=== PATIENT | female | born 1980 | race Caucasian/White ===

== ENCOUNTER 2022-03-17 15:32 | Emergency (ER) | payer OTHER ==
[2022-03-17 16:10] LABS: Urine Blood Trace-intact (Negative); Urine Glucose Negative (Negative); Urine Protein Negative (Negative); Urine pH 7.5 (5.0-7.0)
[2022-03-17 16:29] LABS: Urine Bacteria None Seen /HPF (<20); Urine Mucus Slight /HPF (None Seen); Urine RBC <5 /HPF (None Seen)
--- NOTE | 2022-03-17 16:46 | RAD REPORT ---
EXAM DESCRIPTION: RAD - Pelvis - 03/17/2022 4:41 pm CLINICAL HISTORY: fall COMPARISON: No comparisons FINDINGS: No fracture, dislocation or radiographic evidence of AVN. IMPRESSION: Negative study.
--- NOTE | 2022-03-17 17:43 | ER ---
Nurse's Notes [facility] Name: Sharyn Franco Age: 41 yrs Sex: Female : 1980 Arrival Date: 03/17/2022 Time: 15:37 Bed 4 Private MD: Diagnosis: Unspecified urinary incontinence;Unspecified hemorrhoids;Fall on same level, unspecified Presentation: 03/17 15:49 Chief complaint: Patient states: pt has an external hemorrhoid and prolapsed bladder, iw she fell last night and it jolted her and now she feels like it is hanging out more and she is incontinent. Coronavirus screen: At this time, the client does not indicate any symptoms associated with coronavirus-19. Ebola Screen: Patient negative for fever greater than or equal to 101.5 degrees Fahrenheit, and additional compatible Ebola Virus Disease symptoms Patient denies exposure to infectious person. Patient denies travel to an Ebola-affected area in the 21 days before illness onset. No symptoms or risks identified at this time. Onset of symptoms was March 17, 2022. 15:49 Method Of Arrival: Ambulatory iw 15:49 Acuity: LIS 3 iw 15:52 Initial Sepsis Screen: Does the patient meet any 2 criteria? No. Patient's initial iw sepsis screen is negative. Does the patient have a suspected source of infection? No. Patient's initial sepsis screen is negative. Risk Assessment: Do you want to hurt yourself or someone else? Patient reports no desire to harm self or others. - Immunization history:: Adult Immunizations unknown. - Social history:: Smoking status: unknown. Screenin:22 [facility] ED Fall Risk Assessment (Adult) History of falling in the last 3 months, kc6 including since admission No falls in past 3 months (0 pts) Confusion or Disorientation No (0 pts) Intoxicated or Sedated No (0 pts) Impaired Gait No (0 pts) Mobility Assist Device Used No (0 pt) Altered Elimination No (0 pt) Score/Fall Risk Level 0 - 2 = Low Risk. Abuse screen: Denies threats or abuse. Denies injuries from another. Nutritional screening: No deficits noted. Tuberculosis screening: No symptoms or risk factors identified. Assessment: 16:22 General: Appears in no apparent distress. comfortable, Behavior is calm, cooperative, kc6 appropriate for age, anxious. Pain: Denies pain. Neuro: Miller Agitation-Sedation Scale (RASS): 0 - Alert and Calm Level of Consciousness is awake, alert, obeys commands, Oriented to person, place, time, situation, Appropriate for age. Cardiovascular: Heart tones S1 S2 present Capillary refill < 3 seconds. Respiratory: Airway is patent Trachea midline Respiratory effort is even, unlabored, Respiratory pattern is regular, symmetrical, Breath sounds are clear bilaterally. GI: Abdomen is flat, non-distended, Stools are reported to be normal. Last BM was March 15, 2022. client reports history of hemorrhoids and rectal itching. Bowel sounds present X 4 quads. Abd is soft and non tender X 4 quads. Reports hemorrhoids, incontinence, Patient currently denies bloody stool, constipation, diarrhea, nausea, rectal bleeding, vomiting. : Urine is clear, Reports burning with urination, incontinence. EENT: No signs and/or symptoms were reported regarding the EENT system. Derm: No signs and/or symptoms reported regarding the dermatologic system. Skin is intact, Skin is pink, warm \T\ dry. Musculoskeletal: No signs and/or symptoms reported regarding the musculoskeletal system. Circulation, motion, and sensation intact. Capillary refill < 3 seconds, Range of motion: intact in all extremities. 17:18 Reassessment: Patient appears in no apparent distress at this time. No changes from kc6 previously documented assessment. Patient and/or family updated on plan of care and expected duration. Pain level reassessed. Patient is alert, oriented x 3, equal unlabored respirations, skin warm/dry/pink. Vital Signs: 15:52 BP 152 / 95; Pulse 87; Resp 16; Temp 98.8; Pulse Ox 100% on R/A; iw 17:18 BP 133 / 88; Pulse 79; Resp 18 S; Pulse Ox 100% on R/A; Pain 0/10; kc6 ED Course: 15:37 Patient arrived in ED. mr 15:37 Matias Sunshine DO is Attending Physician. ms3 15:39 Gustavo Mckenzie PA is PHCP. cp 15:47 Ira Pichardo, RAMÓN is Primary Nurse. kc6 15:51 Triage completed. iw 15:52 Arm band placed on. iw 16:10 Urine Microscopic Only Sent. kc6 16:26 Patient has correct armband on for positive identification. Placed in gown. Bed in low kc6 position. Call light in reach. Side rails up X2. 16:42 XRAY Pelvis In Process Unspecified. EDMS 17:40 Michael Connor MD is Referral Physician. cp 17:40 Referral Physician role handed off by Michael Connor MD cp 17:40 Caryl Duncan MD is Referral Physician. cp 17:41 Jacques Washington MD is Referral Physician. cp 17:57 No provider procedures requiring assistance completed. Patient did not have IV access kc6 during this emergency room visit. Administered Medications: No medications were administered Medication: 16:26 VIS not applicable for this client. kc6 Outcome: 17:43 Discharge ordered by MD. cp 17:57 Discharged to home ambulatory. kc6 17:57 Condition: stable 17:57 Discharge instructions given to patient, Instructed on discharge instructions, follow up and referral plans. Demonstrated understanding of instructions, follow-up care. 17:58 Patient left the ED. kc6 Signatures: Dispatcher [employer] EDRI Brandee Giron Irene, RN RN Gustavo Bernal, PA PA Matias Cannon, DO ms3 Ira Pichardo, RN RN kc6
--- NOTE | 2022-03-17 17:44 | EDPHYS ---
Physician Documentation [facility] Name: Sharyn Franco Age: 41 yrs Sex: Female : 1980 Arrival Date: 03/17/2022 Time: 15:37 Bed 4 Private MD: ED Physician Matias Sunshine HPI: 03/17 15:50 This 41 yrs old Female presents to ER via Ambulatory with complaints of Bloody Stools, cp Urinary Problem, Hemorrhoids. 15:50 The patient presents to the emergency department with bleeding from the rectum/anus, cp that is mild, history of hemorrhoids. Context: the patient has a known history of hemorrhoids, Patient reports she was referred to surgeon but encountered issues with visit when surgeon was delayed so she left appointment without being evaluated. 15:50 The patient presents with urinary symptoms, incontinence. Onset: The symptoms/episode cp began/occurred for the past year since of last child. Patient reports fall yesterday onto bottom that caused her to have episode of incontinence. Patient reports she concerned about treatment for urinary incontinence since she is about to lose insurance. - Immunization history:: Adult Immunizations unknown. - Social history:: Smoking status: unknown. ROS: 15:55 Constitutional: Negative for body aches, chills, fever, poor PO intake. cp 15:55 Eyes: Negative for injury, pain, redness, and discharge. cp 15:55 ENT: Negative for drainage from ear(s), ear pain, sore throat, difficulty swallowing, difficulty handling secretions. 15:55 Cardiovascular: Negative for chest pain, edema, palpitations. 15:55 Respiratory: Negative for cough, shortness of breath, wheezing. 15:55 Abdomen/GI: Positive for constipation, rectal bleeding, Negative for abdominal pain, nausea, vomiting, and diarrhea. 15:55 Back: Negative for pain at rest, pain with movement. 15:55 : Positive for bladder incontinence Negative for vaginal bleeding, vaginal discharge. 15:55 Neuro: Negative for altered mental status, dizziness, headache, numbness, syncope, weakness. 15:55 All other systems are negative. Exam: 16:00 Constitutional: The patient appears in no acute distress, alert, awake, non-toxic, well cp developed, well nourished, anxious. 16:00 Head/Face: Normocephalic, atraumatic. cp 16:00 Eyes: Periorbital structures: appear normal, Conjunctiva: normal, no exudate, no injection, Sclera: no appreciated abnormality, Lids and lashes: appear normal, bilaterally. 16:00 ENT: External ear(s): are unremarkable, Nose: is normal, Mouth: Lips: moist, Oral mucosa: moist, Posterior pharynx: Airway: no evidence of obstruction, patent. 16:00 Chest/axilla: Inspection: normal. 16:00 Cardiovascular: Rate: normal. 16:00 Respiratory: the patient does not display signs of respiratory distress, Respirations: normal, no use of accessory muscles, no retractions, labored breathing, is not present. 16:00 Abdomen/GI: Inspection: abdomen appears normal, Palpation: abdomen is soft and non-tender, in all quadrants. 16:00 : Rectal exam: Stool: brown, with no observable blood, hemorrhoid(s), external, no active bleeding are not thrombosed, swollen, and/or painful to touch. located at 12 and 6 o'clock position of rectum, fissure, is not appreciated, the nurse was present for the exam. 16:00 Neuro: Orientation: to person, place \T\ time. Mentation: able to follow commands, Motor: moves all fours, strength is normal. 16:00 Psych: Behavior/mood is cooperative, Affect is animated, Delusions/hallucinations are not present. Vital Signs: 15:52 BP 152 / 95; Pulse 87; Resp 16; Temp 98.8; Pulse Ox 100% on R/A; iw 17:18 BP 133 / 88; Pulse 79; Resp 18 S; Pulse Ox 100% on R/A; Pain 0/10; kc6 MDM: 17:43 Patient medically screened. cp 17:43 Data reviewed: vital signs, nurses notes, lab test result(s), urinalysis, radiologic cp studies, plain films. 17:43 Differential diagnosis: hemorrhoids, fissure, abscess, urinary tract infection. Test cp interpretation: by ED physician or midlevel provider: plain radiologic studies. Counseling: I had a detailed discussion with the patient and/or guardian regarding: the historical points, exam findings, and any diagnostic results supporting the discharge/admit diagnosis, lab results, radiology results, the need for outpatient follow up, a general surgeon, an OB/Gyne specialist, to return to the emergency department if symptoms worsen or persist or if there are any questions or concerns that arise at home. ED course: VSS. Patient stable for discharge. Discussed issues are chronic and that patient needs appropriate f/u. 03/17 15:44 Order name: Urine Microscopic Only; Complete Time: 16:54 03/17 16:56 Interpretation: Reviewed. 03/17 16:10 Order name: Urine --Ancillary (enter results) bd 03/17 15:44 Order name: Urine Dipstick-Ancillary (obtain specimen); Complete Time: 16:10 03/17 15:44 Order name: Urine Test (obtain specimen); Complete Time: 16:10 03/17 16:03 Order name: XRAY Pelvis; Complete Time: 16:54 03/17 16:55 Interpretation: Report reviewed. 03/17 16:10 Order name: Urine Dipstick-Ancillary; Complete Time: 16:54 EDMS 03/17 16:56 Interpretation: Normal except: UBLD Trace-intact; UPH 7.5. 03/17 16:03 Order name: Bladder Scanner: post void; Complete Time: 16:10 cp Administered Medications: No medications were administered Disposition Summary: 03/17/22 17:43 Discharge Ordered Location: Home cp Problem: an ongoing problem cp Symptoms: are unchanged cp Condition: Stable cp Diagnosis - Unspecified urinary incontinence cp - Unspecified hemorrhoids cp - Fall on same level, unspecified cp Followup: cp - With: Michael Connor MD - When: 2 - 3 days - Reason: urinary incontinence Followup: cp - With: Caryl Duncan MD - When: 2 - 3 days - Reason: urinary incontinence Followup: cp - With: Jacques Washington MD - When: 2 - 3 days - Reason: external hemorrhoids Discharge Instructions: - Discharge Summary Sheet cp - Hemorrhoids cp - Fall Prevention in the Home, Adult cp - Urinary Incontinence cp - Surgical Procedures for Hemorrhoids cp - Urethral Vaginal Sling cp Forms: - Medication Reconciliation Form cp - Thank You Letter cp - Antibiotic Education cp - Prescription Opioid Use cp Signatures: Dispatcher [employer] EDMS Gustavo Mckenzie PA PA cp Ira Pichardo RN RN kc6
[2022-03-17 18:06] VITALS: TEMP 98.8; O2SAT 100
[2022-03-17 18:08] VITALS: BP 133/88
== END 2022-03-17 17:58 | disposition home or self-care (01) ==
LOC: ER 15:32
DX: K64.9 Unspecified hemorrhoids (principal); R32 Unspecified urinary incontinence; W18.30XA Fall on same level, unspecified, initial encounter
CPT/HCPCS: 72170; 81003; 81015; 81025; 99283

== ENCOUNTER 2022-08-08 15:03 | Emergency (ER) | payer OTHER ==
--- NOTE | 2022-08-08 15:50 | RAD REPORT ---
EXAM DESCRIPTION: CT - Head Brain Wo Cont - 08/08/2022 3:31 pm CLINICAL HISTORY: Syncope;Trauma COMPARISON: <Comparisons> TECHNIQUE: All CT scans are performed using dose optimization technique as appropriate and may inclu de automated exposure control or mA/KV adjustment according to patient size. FINDINGS: No intracranial hemorrhage, hydrocephalus or extra-axial fluid collection.No areas of brai n edema or evidence of midline shift. The paranasal sinuses and mastoids are clear. The calvarium is intact. IMPRESSION: No acute intracranial abnormality.
--- NOTE | 2022-08-08 15:51 | RAD REPORT ---
EXAM DESCRIPTION: CT - CTFB CLINICAL HISTORY: FACIAL PAIN COMPARISON: Facial Bones W/ Mpr dated 08/08/2022No comparisons TECHNIQUE: Axial 2 mm thick images of the face were obtained with sagittal and coronal reconstructio n images. All CT scans are performed using dose optimization technique as appropriate and may include automated exposure control or mA/KV adjustment according to patient size. FINDINGS: No acute facial bone fracture is seen.The mandible is intact. The globes and orbital contents are grossly unremarkable.Circumferential thickening in the left maxil autumn sinus. IMPRESSION: Negative for facial bone fracture.
[2022-08-08] MEDS ORDERED: HYDROCODONE/APAP 7.5/325 MG TAB ONE (16:05)
--- OUTSIDE RECORDS SUMMARY | 2022-08-08 16:27 | XMS REPORT | Continuity of Care Document ---
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 Medical morning Branch and 2 tablets at noon and 2 tablets in the evening. clonazePAM 2023-0 Yes [id number] 1mg Take 2 [facility] (KLONOPIN) 2-27 tablets by [facility] of 0.5 mg 00:00: mouth in [place] tablet 00 the Medical morning Branch and 2 tablets at noon and 2 tablets in the evening. clonazePAM 2023-0 Yes [id number] 1mg Take 2 [facility] (KLONOPIN) 2-27 tablets by [facility] of 0.5 mg 00:00: mouth in [place] tablet 00 the Medical morning Branch and 2 tablets at noon and 2 tablets in the evening. clonazePAM 2023-0 Yes [id number] 1mg Take 2 [facility] (KLONOPIN) 2-27 tablets by [facility] of 0.5 mg 00:00: mouth in [place] tablet 00 the Medical morning Branch and 2 tablets at noon and 2 tablets in the evening. clonazePAM 2023-0 Yes [id number] 1mg Take 2 [facility] (KLONOPIN) 2-27 tablets by [facility] of 0.5 mg 00:00: mouth in [place] tablet 00 the Medical morning Branch and 2 tablets at noon and 2 tablets in the evening. clonazePAM 2023-0 Yes [id number] 1mg Take 2 [facility] (KLONOPIN) 2-27 tablets by [facility]y of 0.5 mg 00:00: mouth in [place] tablet 00 the Medical morning Branch and 2 tablets at noon and 2 tablets in the evening. clonazePAM 2023-0 Yes [id number] 1mg Take 2 [facility] (KLONOPIN) 2-27 tablets by [facility] of 0.5 mg 00:00: mouth in [place] tablet 00 the Medical morning Branch and 2 tablets at noon and 2 tablets in the evening. clonazePAM 2023-0 Yes [id number] 1mg Take 2 [facility] (KLONOPIN) 2-27 tablets by [facility] of 0.5 mg 00:00: mouth in [place] tablet 00 the Medical morning Branch and 2 tablets at noon and 2 tablets in the evening. clonazePAM 2023-0 Yes [id number] 1mg Take 2 [facility] (KLONOPIN) 2-27 tablets by [facility] of 0.5 mg 00:00: mouth in [place] tablet 00 the Medical morning Branch and 2 tablets at noon and 2 tablets in the evening. clonazePAM 2023-0 Yes [id number] 1mg Take 2 [facility] (KLONOPIN) 2-27 tablets by [facility] of 0.5 mg 00:00: mouth in [place] tablet 00 the Medical morning Branch and 2 tablets at noon and 2 tablets in the evening. clonazePAM 2023-0 Yes [id number] 1mg Take 2 [facility] (KLONOPIN) 2-27 tablets by [facility] of 0.5 mg 00:00: mouth in [place] tablet 00 the Medical morning Branch and 2 tablets at noon and 2 tablets in the evening. clonazePAM 2023-0 Yes [id number] 1mg Take 2 [facility] (KLONOPIN) 2-27 tablets by [facility] of 0.5 mg 00:00: mouth in [place] tablet 00 the Medical morning Branch and 2 tablets at noon and 2 tablets in the evening. clonazePAM 2023-0 Yes [id number] 1mg Take 2 [facility] (KLONOPIN) 2-27 tablets by [facility] of 0.5 mg 00:00: mouth in [place] tablet 00 the Medical morning Branch and 2 tablets at noon and 2 tablets in the evening. clonazePAM 2023-0 Yes [id number] 1mg Take 2 [facility] (KLONOPIN) 2-27 tablets by [facility] of 0.5 mg 00:00: mouth in [place] tablet 00 the Medical morning Branch and 2 tablets at noon and 2 tablets in the evening. clonazePAM 2023-0 Yes [id number] 1mg Take 2 [facility] (KLONOPIN) 2-27 tablets by [facility] of 0.5 mg 00:00: mouth in [place] tablet 00 the Medical morning Branch and 2 tablets at noon and 2 tablets in the evening. clonazePAM 2023-0 Yes [id number] 1mg Take 2 [facility] (KLONOPIN) 2-27 tablets by [facility] of 0.5 mg 00:00: mouth in [place] tablet 00 the Medical morning Branch and 2 tablets at noon and 2 tablets in the evening. clonazePAM 2023-0 Yes [id number] 1mg Take 2 [facility] (KLONOPIN) 2-27 tablets by [facility] of 0.5 mg 00:00: mouth in [place] tablet 00 the Medical morning Branch and 2 tablets at noon and 2 tablets in the evening. clonazePAM 2023-0 Yes [id number] 1mg Take 2 [facility] (KLONOPIN) 2-27 tablets by [facility] of 0.5 mg 00:00: mouth in [place] tablet 00 the Medical morning Branch and 2 tablets at noon and 2 tablets in the evening. clonazePAM 2023-0 Yes [id number] 1mg Take 2 [facility] (KLONOPIN) 2-27 tablets by [facility] of 0.5 mg 00:00: mouth in [place] tablet 00 the Medical morning Branch and 2 tablets at noon and 2 tablets in the evening. clonazePAM 2023-0 Yes [id number] 1mg Take 2 [facility] (KLONOPIN) 2-27 tablets by [facility] of 0.5 mg 00:00: mouth in [place] tablet 00 the Medical morning Branch and 2 tablets at noon and 2 tablets in the evening. clonazePAM 2023-0 Yes [id number] 1mg Take 2 [facility] (KLONOPIN) 2-27 tablets by it[facility] of 0.5 mg 00:00: mouth in [place] tablet 00 the Medical morning Branch and 2 tablets at noon and 2 tablets in the evening. clonazePAM 2023-0 Yes [id number] 1mg Take 1 [facility] 1 mg tablet 2-27 tablet by ity of 00:00: mouth in [place] 00 the Medical morning Branch and 1 tablet at noon and 1 tablet in the evening. dextroamphe 2023-0 Yes [id number] 12.5mg Take 1 [facility] tamine-amph 2-27 tablet by ity of etamine 00:00: mouth in [place] ([facility]) 00 the Medical 12.5 mg morning Branch tablet and 1 tablet at noon and 1 tablet in the evening. clonazePAM 2023-0 Yes [id number] 1mg Take 1 [facility] 1 mg tablet 2-27 tablet by ity of 00:00: mouth in [place] 00 the Medical morning Branch and 1 tablet at noon and 1 tablet in the evening. dextroamphe 2023-0 Yes [id number] 12.5mg Take 1 [facility] tamine-amph 2-27 tablet by ity of etamine 00:00: mouth in [place] ([facility]) 00 the Medical 12.5 mg morning Branch tablet and 1 tablet at noon and 1 tablet in the evening. dextroamphe 2023-0 Yes [id number] 12.5mg Take 1 [facility] tamine-amph 2-27 tablet by ity of etamine 00:00: mouth in [place] ([facility]) 00 the Medical 12.5 mg morning Branch tablet and 1 tablet at noon and 1 tablet in the evening. clonazePAM 2023-0 Yes [id number] 1mg Take 2 [facility] (KLONOPIN) 2-27 tablets by [facility] of 0.5 mg 00:00: mouth in [place] tablet 00 the Medical morning Branch and 2 tablets at noon and 2 tablets in the evening. dextroamphe 2023-0 Yes [id number] 12.5mg Take 1 [facility] tamine-amph 2-27 tablet by ity of etamine 00:00: mouth in [place] ([facility]) 00 the Medical 12.5 mg morning Branch tablet and 1 tablet at noon and 1 tablet in the evening. clonazePAM 2023-0 Yes [id number] 1mg Take 2 [facility] (KLONOPIN) 2-27 tablets by ity of 0.5 mg 00:00: mouth in [place] tablet 00 the Medical morning Branch and 2 tablets at noon and 2 tablets in the evening. dextroamphe 2023-0 Yes [id number] 12.5mg Take 1 [facility] tamine-amph 2-27 tablet by ity of etamine 00:00: mouth in [place] ([facility]) 00 the Medical 12.5 mg morning Branch tablet and 1 tablet at noon and 1 tablet in the evening. clonazePAM 2023-0 Yes [id number] 1mg Take 2 [facility] (KLONOPIN) 2-27 tablets by it[facility] of 0.5 mg 00:00: mouth in [place] tablet 00 the Medical morning Branch and 2 tablets at noon and 2 tablets in the evening. clonazePAM 2023-0 2023- No [id number] 1mg Take 2 [facility] (KLONOPIN) 2-27 05-09 tablets by it y of 0.5 mg 00:00: 00:00 mouth in [place] tablet 00 :00 the Medical morning Branch and 2 tablets at noon and 2 tablets in the evening. clonazePAM 2023-0 2023- No [id number] 1mg Take 2 [facility] (KLONOPIN) 2-27 05-09 tablets by it y of 0.5 mg 00:00: 00:00 mouth in [place] tablet 00 :00 the Medical morning Branch and 2 tablets at noon and 2 tablets in the evening. dextroamphe 2022-0 2022- No [id number] 12.5mg Take 1 [facility] tamine-amph 2-27 03-09 tablet by it y of etamine 00:00: 00:00 mouth in [place] ([facility]) 00 :00 the Medical 12.5 mg morning Branch tablet and 1 tablet at noon and 1 tablet in the evening. clonazePAM 2022-0 2022- No [id number] 1mg Take 1 [facility] 1 mg tablet 2-25 05- tablet by it y of 00:00: 00:00 mouth in [place] 00 :00 the Medical morning Branch and 1 tablet at noon and 1 tablet in the evening. dextroamphe 3-0 Yes [id number] 12.5mg Take 1 [facility] tamine-amph 2-01 tablet by ity of etamine 00:00: mouth in [place] [facility] the Medical 12.5 mg morning Branch tablet and 1 tablet at noon and 1 tablet in the evening. dextroamphe 2022-0 Yes [id number] 12.5mg Take 1 [facility] tamine-amph 2-01 tablet by ity of etamine 00:00: mouth in [place] [facility] 00 the Medical 12.5 mg morning Branch tablet and 1 tablet at noon and 1 tablet in the evening. dextroamphe 3-0 Yes [id number] 12.5mg Take 1 [facility] tamine-amph 2-01 tablet by ity of etamine 00:00: mouth in [place] [facility] 00 the Medical 12.5 mg morning Branch tablet and 1 tablet at noon and 1 tablet in the evening. dextroamphe 3-0 Yes [id number] 12.5mg Take 1 [facility] tamine-amph 2-01 tablet by ity of etamine 00:00: mouth in [place] ([facility]) 00 the Medical 12.5 mg morning Branch tablet and 1 tablet at noon and 1 tablet in the evening. dextroamphe 2022-0 2022- No [id number] 12.5mg Take 1 [facility] tamine-amph 2-01 - tablet by it y of etamine 00:00: 00:00 mouth in [place] ([facility] 00 :00 the Medical 12.5 mg morning Branch tablet and 1 tablet at noon and 1 tablet in the evening. dextroamphe 2023-0 3- No [id number] 12.5mg Take 1 [facility] tamine-amph 2-05-25 tablet by it y of etamine 00:00: 00:00 mouth in [place] ([facility] 00 :00 the Medical 12.5 mg morning Branch tablet and 1 tablet at noon and 1 tablet in the evening. dextroamphe 2023-0 3- No [id number] 12.5mg Take 1 [facility] tamine-amph 2-05-25 tablet by it y of etamine 00:00: 00:00 mouth in [place] ([facility]) 00 :00 the Medical 12.5 mg morning Branch tablet and 1 tablet at noon and 1 tablet in the evening. dextroamphe 2023-0 Yes [id number] 12.5mg Take 1 [facility] tamine-amph 1-10 tablet by ity of etamine 00:00: mouth in [place] ([facility]) 00 the Medical 12.5 mg morning Branch tablet and 1 tablet at noon and 1 tablet in the evening. dextroamphe 2023-0 Yes [id number] 12.5mg Take 1 [facility] tamine-amph 1-10 tablet by ity of etamine 00:00: mouth in [place] ([facility] 00 the Medical 12.5 mg morning Branch tablet and 1 tablet at noon and 1 tablet in the evening. dextroamphe 2023-0 Yes [id number] 12.5mg Take 1 [facility] tamine-amph 1-10 tablet by ity of etamine 00:00: mouth in [place] ([facility] 00 the Medical 12.5 mg morning Branch tablet and 1 tablet at noon and 1 tablet in the evening. dextroamphe 2023-0 Yes [id number] 12.5mg Take 1 [facility] tamine-amph 1-10 tablet by ity of etamine 00:00: mouth in [place] ([facility] 00 the Medical 12.5 mg morning Branch tablet and 1 tablet at noon and 1 tablet in the evening. dextroamphe 2023-0 Yes [id number] 12.5mg Take 1 [facility] tamine-amph 1-10 tablet by ity of etamine 00:00: mouth in [place] ([facility] 00 the Medical 12.5 mg morning Branch tablet and 1 tablet at noon and 1 tablet in the evening. dextroamphe 2023-0 Yes [id number] 12.5mg Take 1 [facility] tamine-amph 1-10 tablet by ity of etamine 00:00: mouth in [place] ([facility] 00 the Medical 12.5 mg morning Branch tablet and 1 tablet at noon and 1 tablet in the evening. dextroamphe 2023-0 Yes [id number] 12.5mg Take 1 [facility] tamine-amph 1-10 tablet by ity of etamine 00:00: mouth in [place] ([facility] 00 the Medical 12.5 mg morning Branch tablet and 1 tablet at noon and 1 tablet in the evening. dextroamphe 2023-0 3- No [id number] 12.5mg Take 1 [facility] tamine-amph 1-10 02- tablet by it y of etamine 00:00: 00:00 mouth in [place] ([facility] 00 :00 the Medical 12.5 mg morning Branch tablet and 1 tablet at noon and 1 tablet in the evening. dextroamphe 2023-0 3- No [id number] 12.5mg Take 1 [facility] tamine-amph 1-10 - tablet by it y of etamine 00:00: 00:00 mouth in [place] ([facility] 00 :00 the Medical 12.5 mg morning Branch tablet and 1 tablet at noon and 1 tablet in the evening. dextroamphe 2023-0 Yes [id number] 15mg Take 1 [facility] tamine-amph 1-09 tablet by ity of etamine 00:00: mouth in [place] ([facility] 00 the Medical 15 mg morning Branch tablet and 1 tablet at noon and 1 tablet in the evening. dextroamphe 2023-0 Yes [id number] 15mg Take 1 [facility] tamine-amph 1-09 tablet by ity of etamine 00:00: mouth in [place] ([facility] 00 the Medical 15 mg morning Branch tablet and 1 tablet at noon and 1 tablet in the evening. dextroamphe 2023-0 3- No [id number] 15mg Take 1 [facility] tamine-amph 1-09 01-10 tablet by it y of etamine 00:00: 00:00 mouth in [place] ([facility] 00 :00 the Medical 15 mg morning Branch tablet and 1 tablet at noon and 1 tablet in the evening. SYNTHROID 0 Yes [id number] TAKE 1 U nivers 150 mcg 1-02 TABLET BY ity of tablet 00:00: MOUTH [place] 00 EVERY DAY Medical IN THE [facility] SYNTHROID 0 Yes [id number] TAKE 1 U nivers 150 mcg 1-02 TABLET BY ity of tablet 00:00: MOUTH [place] 00 EVERY DAY Medical IN THE [facility] SYNTHROID Yes [id number] TAKE 1 U nivers 150 mcg 1-02 TABLET BY ity of tablet 00:00: MOUTH [place] 00 EVERY DAY Medical IN THE [facility] SYNTHROID Yes [id number] TAKE 1 U nivers 150 mcg 1-02 TABLET BY ity of tablet 00:00: MOUTH [place] 00 EVERY DAY Medical IN THE [facility] SYNTHROID Yes [id number] TAKE 1 U nivers 150 mcg 1-02 TABLET BY ity of tablet 00:00: MOUTH [place] 00 EVERY DAY Medical IN THE [facility] SYNTHROID Yes [id number] TAKE 1 U nivers 150 mcg 1-02 TABLET BY ity of tablet 00:00: MOUTH [place] 00 EVERY DAY Medical IN THE [facility] SYNTHROID Yes [id number] TAKE 1 U nivers 150 mcg 1-02 TABLET BY ity of tablet 00:00: MOUTH [place] 00 EVERY DAY Medical IN THE [facility] SYNTHROID Yes [id number] TAKE 1 U nivers 150 mcg 1-02 TABLET BY ity of tablet 00:00: MOUTH [place] 00 EVERY DAY Medical IN THE [facility] SYNTHROID Yes [id number] TAKE 1 U nivers 150 mcg 1-02 TABLET BY ity of tablet 00:00: MOUTH [place] 00 EVERY DAY Medical IN THE [facility] SYNTHROID 0 Yes [id number] TAKE 1 U nivers 150 mcg 1-02 TABLET BY ity of tablet 00:00: MOUTH [place] 00 EVERY DAY Medical IN THE [facility] SYNTHROID 0 Yes [id number] TAKE 1 U nivers 150 mcg 1-02 TABLET BY ity of tablet 00:00: MOUTH [place] 00 EVERY DAY Medical IN THE [facility] SYNTHROID Yes [id number] TAKE 1 U nivers 150 mcg 1-02 TABLET BY ity of tablet 00:00: MOUTH [place] 00 EVERY DAY Medical IN THE [facility] SYNTHROID Yes [id number] TAKE 1 U nivers 150 mcg 1-02 TABLET BY ity of tablet 00:00: MOUTH [place] 00 EVERY DAY Medical IN THE [facility] SYNTHROID Yes [id number] TAKE 1 U nivers 150 mcg 1-02 TABLET BY ity of tablet 00:00: MOUTH [place] 00 EVERY DAY Medical IN THE [facility] SYNTHROID Yes [id number] TAKE 1 U nivers 150 mcg 1-02 TABLET BY ity of tablet 00:00: MOUTH [place] 00 EVERY DAY Medical IN THE [facility] SYNTHROID Yes [id number] TAKE 1 U nivers 150 mcg 1-02 TABLET BY ity of tablet 00:00: MOUTH [place] 00 EVERY DAY Medical IN THE [facility] SYNTHROID Yes [id number] TAKE 1 U nivers 150 mcg 1-02 TABLET BY ity of tablet 00:00: MOUTH [place] 00 EVERY DAY Medical IN THE [facility] SYNTHROID Yes [id number] TAKE 1 U nivers 150 mcg 1-02 TABLET BY ity of tablet 00:00: MOUTH [place] 00 EVERY DAY Medical IN THE [facility] SYNTHROID Yes [id number] TAKE 1 U nivers 150 mcg 1-02 TABLET BY ity of tablet 00:00: MOUTH [place] 00 EVERY DAY Medical IN THE [facility] SYNTHROID Yes [id number] TAKE 1 U nivers 150 mcg 1-02 TABLET BY ity of tablet 00:00: MOUTH [place] 00 EVERY DAY Medical IN THE [facility] SYNTHROID Yes [id number] TAKE 1 U nivers 150 mcg 1-02 TABLET BY ity of tablet 00:00: MOUTH [place] 00 EVERY DAY Medical IN THE [facility] SYNTHROID 0 Yes [id number] TAKE 1 U nivers 150 mcg 1-02 TABLET BY ity of tablet 00:00: MOUTH [place] 00 EVERY DAY Medical IN THE [facility] SYNTHROID Yes [id number] TAKE 1 U nivers 150 mcg 1-02 TABLET BY ity of tablet 00:00: MOUTH [place] 00 EVERY DAY Medical IN THE [facility] SYNTHROID Yes [id number] TAKE 1 U nivers 150 mcg 1-02 TABLET BY ity of tablet 00:00: MOUTH [place] 00 EVERY DAY Medical IN THE [facility] SYNTHROID 2023-0 Yes [id number] TAKE 1 U nivers 150 mcg 1-02 TABLET BY ity of tablet 00:00: MOUTH [place] 00 EVERY DAY Medical IN THE [facility] SYNTHROID 0 Yes [id number] TAKE 1 U nivers 150 mcg 1-02 TABLET BY ity of tablet 00:00: MOUTH [place] 00 EVERY DAY Medical IN THE [facility] SYNTHROID 0 Yes [id number] TAKE 1 U nivers 150 mcg 1-02 TABLET BY ity of tablet 00:00: MOUTH [place] 00 EVERY DAY Medical IN THE [facility] SYNTHROID Yes [id number] TAKE 1 U nivers 150 mcg 1-02 TABLET BY ity of tablet 00:00: MOUTH [place] 00 EVERY DAY Medical IN THE [facility] SYNTHROID Yes [id number] TAKE 1 U nivers 150 mcg 1-02 TABLET BY ity of tablet 00:00: MOUTH [place] 00 EVERY DAY Medical IN THE [facility] SYNTHROID Yes [id number] TAKE 1 U nivers 150 mcg 1-02 TABLET BY ity of tablet 00:00: MOUTH [place] 00 EVERY DAY Medical IN THE [facility] SYNTHROID Yes [id number] TAKE 1 U nivers 150 mcg 1-02 TABLET BY ity of tablet 00:00: MOUTH [place] 00 EVERY DAY Medical IN THE [facility] SYNTHROID Yes [id number] TAKE 1 U nivers 150 mcg 1-02 TABLET BY ity of tablet 00:00: MOUTH [place] 00 EVERY DAY Medical IN THE [facility] SYNTHROID 0 Yes [id number] TAKE 1 U nivers 150 mcg 1-02 TABLET BY ity of tablet 00:00: MOUTH [place] 00 EVERY DAY Medical IN THE [facility] SYNTHROID 0 Yes [id number] TAKE 1 U nivers 150 mcg 1-02 TABLET BY ity of tablet 00:00: MOUTH [place] 00 EVERY DAY Medical IN THE [facility] SYNTHROID Yes [id number] TAKE 1 U nivers 150 mcg 1-02 TABLET BY ity of tablet 00:00: MOUTH [place] 00 EVERY DAY Medical IN THE [facility] SYNTHROID Yes [id number] TAKE 1 U nivers 150 mcg 1-02 TABLET BY ity of tablet 00:00: MOUTH [place] 00 EVERY DAY Medical IN THE [facility] SYNTHROID Yes [id number] TAKE 1 U nivers 150 mcg 1-02 TABLET BY ity of tablet 00:00: MOUTH [place] 00 EVERY DAY Medical IN THE [facility] SYNTHROID 0 Yes [id number] TAKE 1 U nivers 150 mcg 1-02 TABLET BY ity of tablet 00:00: MOUTH [place] 00 EVERY DAY Medical IN THE [facility] SYNTHROID 0 Yes [id number] TAKE 1 U nivers 150 mcg 1-02 TABLET BY ity of tablet 00:00: MOUTH [place] 00 EVERY DAY Medical IN THE [facility] SYNTHROID Yes [id number] TAKE 1 U nivers 150 mcg 1-02 TABLET BY ity of tablet 00:00: MOUTH [place] 00 EVERY DAY Medical IN THE [facility] SYNTHROID Yes [id number] TAKE 1 U nivers 150 mcg 1-02 TABLET BY ity of tablet 00:00: MOUTH [place] 00 EVERY DAY Medical IN THE [facility] SYNTHROID Yes [id number] TAKE 1 U nivers 150 mcg 1-02 TABLET BY ity of tablet 00:00: MOUTH [place] 00 EVERY DAY Medical IN THE [facility] SYNTHROID Yes [id number] TAKE 1 U nivers 150 mcg 1-02 TABLET BY ity of tablet 00:00: MOUTH [place] 00 EVERY DAY Medical IN THE [facility] SYNTHROID Yes [id number] TAKE 1 U nivers 150 mcg 1-02 TABLET BY ity of tablet 00:00: MOUTH [place] 00 EVERY DAY Medical IN THE [facility] SYNTHROID 0 Yes [id number] TAKE 1 U nivers 150 mcg 1-02 TABLET BY ity of tablet 00:00: MOUTH [place] 00 EVERY DAY Medical IN THE [facility] SYNTHROID 0 Yes [id number] TAKE 1 U nivers 150 mcg 1-02 TABLET BY ity of tablet 00:00: MOUTH [place] 00 EVERY DAY Medical IN THE [facility] SYNTHROID 0 Yes [id number] TAKE 1 U nivers 150 mcg 1-02 TABLET BY ity of tablet 00:00: MOUTH [place] 00 EVERY DAY Medical IN THE [facility] SYNTHROID 0 Yes [id number] TAKE 1 U nivers 150 mcg 1-02 TABLET BY ity of tablet 00:00: MOUTH [place] 00 EVERY DAY Medical IN THE [facility] SYNTHROID 0 Yes [id number] TAKE 1 U nivers 150 mcg 1-02 TABLET BY ity of tablet 00:00: MOUTH [place] 00 EVERY DAY Medical IN THE Branch MORNING SYNTHROID Yes [id number] TAKE 1 U nivers 150 mcg 1-02 TABLET BY ity of tablet 00:00: MOUTH 00 EVERY DAY Medical IN THE Branch MORNING SYNTHROID Yes [id number] TAKE 1 U nivers 150 mcg 1-02 TABLET BY ity of tablet 00:00: MOUTH 00 EVERY DAY Medical IN THE Branch MORNING ZONISAMIDE 2021-03 Yes [id number] TAKE 1 [facility] 100 mg 2-27 CAPSULE BY ity of capsule 00:00: MOUTH [place] 00 TWICE A Medical DAY Branch ZONISAMIDE 2021-03 Yes [id number] TAKE 1 [facility] 100 mg 2-27 CAPSULE BY ity of capsule 00:00: MOUTH [place] TWICE A Medical DAY Branch ZONISAMIDE 2021-03 Yes [id number] TAKE 1 [facility] 100 mg 2-27 CAPSULE BY ity of capsule 00:00: MOUTH [place] TWICE A Medical DAY Branch ZONISAMIDE 2021-03 Yes [id number] TAKE 1 [facility] 100 mg 2-27 CAPSULE BY ity of capsule 00:00: MOUTH [place] 00 TWICE A Medical DAY Branch ZONISAMIDE 2021-03 Yes [id number] TAKE 1 [facility] 100 mg 2-27 CAPSULE BY ity of capsule 00:00: MOUTH [place] 00 TWICE A Medical DAY Branch ZONISAMIDE 2021-03 Yes [id number] TAKE 1 [facility] 100 mg 2-27 CAPSULE BY ity of capsule 00:00: MOUTH [place] TWICE A Medical DAY Branch ZONISAMIDE 2021-03 Yes [id number] TAKE 1 [facility] 100 mg 2-27 CAPSULE BY ity of capsule 00:00: MOUTH [place] 00 TWICE A Medical DAY Branch ZONISAMIDE 2021-03 Yes [id number] TAKE 1 [facility] 100 mg 2-27 CAPSULE BY ity of capsule 00:00: MOUTH [place] 00 TWICE A Medical DAY Branch ZONISAMIDE 2021-03 Yes [id number] TAKE 1 [facility] 100 mg 2-27 CAPSULE BY ity of capsule 00:00: MOUTH [place] 00 TWICE A Medical DAY Branch ZONISAMIDE 2021-03 Yes [id number] TAKE 1 [facility] 100 mg 2-27 CAPSULE BY ity of capsule 00:00: MOUTH [place] 00 TWICE A Medical DAY Branch ZONISAMIDE 2021-03 Yes [id number] TAKE 1 [facility] 100 mg 2-27 CAPSULE BY ity of capsule 00:00: MOUTH [place] 00 TWICE A Medical DAY Branch ZONISAMIDE 2021-03 Yes [id number] TAKE 1 [facility] 100 mg 2-27 CAPSULE BY ity of capsule 00:00: MOUTH [place] TWICE A Medical DAY Branch ZONISAMIDE 2021-03 Yes [id number] TAKE 1 [facility] 100 mg 2-27 CAPSULE BY ity of capsule 00:00: MOUTH [place] TWICE A Medical DAY Branch ZONISAMIDE 2021-03 Yes [id number] TAKE 1 [facility] 100 mg 2-27 CAPSULE BY ity of capsule 00:00: MOUTH [place] TWICE A Medical DAY Branch ZONISAMIDE 2021-03 Yes [id number] TAKE 1 [facility] 100 mg 2-27 CAPSULE BY ity of capsule 00:00: MOUTH TWICE A Medical DAY Branch ZONISAMIDE 2021-03 Yes [id number] TAKE 1 [facility] 100 mg 2-27 CAPSULE BY ity of capsule 00:00: MOUTH TWICE A Medical DAY Branch ZONISAMIDE 2021-03 Yes [id number] TAKE 1 [facility] 100 mg 2-27 CAPSULE BY ity of capsule 00:00: MOUTH TWICE A Medical DAY Branch ZONISAMIDE 2021-03 Yes [id number] TAKE 1 [facility] 100 mg 2-27 CAPSULE BY ity of capsule 00:00: MOUTH TWICE A Medical DAY Branch ZONISAMIDE 2021-03 Yes [id number] TAKE 1 [facility] 100 mg 2-27 CAPSULE BY ity of capsule 00:00: MOUTH TWICE A Medical DAY Branch ZONISAMIDE 2021-03 Yes [id number] TAKE 1 [facility] 100 mg 2-27 CAPSULE BY ity of capsule 00:00: MOUTH [place] TWICE A Medical DAY Branch ZONISAMIDE 2021-03 Yes [id number] TAKE 1 [facility] 100 mg 2-27 CAPSULE BY ity of capsule 00:00: MOUTH TWICE A Medical DAY Branch ZONISAMIDE 2021-03 Yes [id number] TAKE 1 [facility] 100 mg 2-27 CAPSULE BY ity of capsule 00:00: MOUTH TWICE A Medical DAY Branch ZONISAMIDE 2021-03 Yes [id number] TAKE 1 [facility] 100 mg 2-27 CAPSULE BY ity of capsule 00:00: MOUTH TWICE A Medical DAY Branch ZONISAMIDE 2021-03 Yes [id number] TAKE 1 [facility] 100 mg 2-27 CAPSULE BY ity of capsule 00:00: MOUTH [place] 00 TWICE A Medical DAY Branch ZONISAMIDE 2021-03 Yes [id number] TAKE 1 [facility] 100 mg 2-27 CAPSULE BY [facility] of capsule 00:00: MOUTH [place] 00 TWICE A Medical DAY Branch ZONISAMIDE 2021-03 Yes [id number] TAKE 1 [facility] 100 mg 2-27 CAPSULE BY [facility]y of capsule 00:00: MOUTH [place] 00 TWICE A Medical DAY Branch ZONISAMIDE 2021-03 Yes [id number] TAKE 1 [facility] 100 mg 2-27 CAPSULE BY [facility] of capsule 00:00: MOUTH [place] 00 TWICE A Medical DAY Branch ZONISAMIDE 2021-03 Yes [id number] TAKE 1 [facility] 100 mg 2-27 CAPSULE BY [facility] of capsule 00:00: MOUTH [place] 00 TWICE A Medical DAY Branch ZONISAMIDE 2021-03 Yes [id number] TAKE 1 [facility] 100 mg 2-27 CAPSULE BY it[facility] of capsule 00:00: MOUTH [place] 00 TWICE A Medical DAY Branch ZONISAMIDE 2021-03 Yes [id number] TAKE 1 [facility] 100 mg 2-27 CAPSULE BY [facility] of capsule 00:00: MOUTH [place] 00 TWICE A Medical DAY Branch ZONISAMIDE 2021-03 Yes [id number] TAKE 1 [facility] 100 mg 2-27 CAPSULE BY [facility] of capsule 00:00: MOUTH [place] 00 TWICE A Medical DAY Branch ZONISAMIDE 2021-03 Yes [id number] TAKE 1 [facility] 100 mg 2-27 CAPSULE BY [facility] of capsule 00:00: MOUTH [place] 00 TWICE A Medical DAY Branch ZONISAMIDE 2021-03 Yes [id number] TAKE 1 [facility] 100 mg 2-27 CAPSULE BY [facility] of capsule 00:00: MOUTH [place] 00 TWICE A Medical DAY Branch ZONISAMIDE 2021-03 Yes [id number] TAKE 1 [facility] 100 mg 2-27 CAPSULE BY [facility] of capsule 00:00: MOUTH [place] 00 TWICE A Medical DAY Branch ZONISAMIDE 2021-03- No [id number] TAKE 1 [facility] 100 mg 2-27 03-27 CAPSULE BY it[facility] of capsule 00:00: 00:00 MOUTH [place] 00 :00 TWICE A Medical DAY Branch dextroamphe 2021-03 Yes [id number] 15mg Take 1 [facility] tamine-amph 2-20 tablet by [facility] of etamine 00:00: mouth in [place] ([facility]DERALL) 00 the Medical 15 mg morning Branch tablet and 1 tablet at noon and 1 tablet in the evening. dextroamphe 2021-03 Yes [id number] 20mg Take 1 [facility] tamine-amph 2-20 tablet by [facility] of etamine 00:00: mouth in [place] (ADDERALL) 00 the Medical 20 mg morning Branch tablet and 1 tablet at noon and 1 tablet in the evening. dextroamphe 2021-03 Yes [id number] 20mg Take 1 [facility] tamine-amph 2-20 tablet by ity of etamine 00:00: mouth in [place] ([facility]DERALL) 00 the Medical 20 mg morning Branch tablet and 1 tablet at noon and 1 tablet in the evening. dextroamphe 2021-03 Yes [id number] 15mg Take 1 [facility] tamine-amph 2-20 tablet by [facility]y of etamine 00:00: mouth in [place] ([facility]DERALL) 00 the Medical 15 mg morning Branch tablet and 1 tablet at noon and 1 tablet in the evening. dextroamphe 2021-03 Yes [id number] 20mg Take 1 [facility] tamine-amph 2-20 tablet by [facility]y of etamine 00:00: mouth in [place] ([facility]DERALL) 00 the Medical 20 mg morning Branch tablet and 1 tablet at noon and 1 tablet in the evening. dextroamphe 2021-03 Yes [id number] 15mg Take 1 [facility] tamine-amph 2-20 tablet by [facility]y of etamine 00:00: mouth in [place] ([facility]DERALL) 00 the Medical 15 mg morning Branch tablet and 1 tablet at noon and 1 tablet in the evening. dextroamphe 2021-03 Yes [id number] 20mg Take 1 [facility] tamine-amph 2-20 tablet by [facility]y of etamine 00:00: mouth in [place] (ADDERALL) 00 the Medical 20 mg morning Branch tablet and 1 tablet at noon and 1 tablet in the evening. dextroamphe 2021-03 Yes [id number] 15mg Take 1 [facility] tamine-amph 2-20 tablet by [facility]y of etamine 00:00: mouth in [place] ([facility]DERALL) 00 the Medical 15 mg morning Branch tablet and 1 tablet at noon and 1 tablet in the evening. dextroamphe 2021-03 Yes [id number] 20mg Take 1 [facility] tamine-amph 2-20 tablet by [facility]y of etamine 00:00: mouth in [place] (ADDERALL) 00 the Medical 20 mg morning Branch tablet and 1 tablet at noon and 1 tablet in the evening. dextroamphe 2021-03 Yes [id number] 15mg Take 1 [facility] tamine-amph 2-20 tablet by ity of etamine 00:00: mouth in [place] ([facility]DERALL) 00 the Medical 15 mg morning Branch tablet and 1 tablet at noon and 1 tablet in the evening. dextroamphe 2021-03 Yes [id number] 20mg Take 1 [facility] tamine-amph 2-20 tablet by [facility] of etamine 00:00: [facility] [place] [facility] 20 mg morning Branch tablet and 1 tablet at noon and 1 tablet in the evening. dextroamphe 2021-03 Yes [id number] 20mg Take 1 [facility] tamine-amph 2-20 tablet by ity of etamine 00:00: mouth in [place] (ADDERALL) 00 the Medical 20 mg morning Branch tablet and 1 tablet at noon and 1 tablet in the evening. dextroamphe 2021-03 Yes [id number] 20mg Take 1 [facility] tamine-amph 2-20 tablet by ity of etamine 00:00: mouth in [place] ([facility]DER[facility]) 00 the Medical 20 mg morning Branch tablet and 1 tablet at noon and 1 tablet in the evening. dextroamphe 2021-03- No [id number] 20mg Take 1 [facility] tamine-amph 2-20 01-10 tablet by it y of etamine 00:00: 00:00 mouth in [place] (ADDERALL) 00 :00 the Medical 20 mg morning Branch tablet and 1 tablet at noon and 1 tablet in the evening. dextroamphe 2021-03- No [id number] 15mg Take 1 [facility] tamine-amph 2-20 01-09 tablet by it y of etamine 00:00: 00:00 mouth in [place] (ADDERALL) 00 :00 the Medical 15 mg morning Branch tablet and 1 tablet at noon and 1 tablet in the evening. ibuprofen 2021-03- No 800mg 800 mg, [facility] vers (IBU) 2-14 12-14 Oral, ity of tablet 800 03:30: 03:30 ONCE, 1 [place] as mg 00 :00 dose, On Medical e Branch 03/10/22 at 2130, [facility] HYDROcodone 2021-03- No 1{tbl} 1 tablet, [facility] -acetaminop 2-14 03-11 Oral, ity of hen (NORCO 01:15: 01:14 ONCE, 1 [place] as 5) 5-325 mg 00 :00 dose, On Medi gustavo tablet 1 e Branch tablet 03/10/22 at 1915, [facility] SERTRALINE 2021-03 Yes [id number] TAKE 1 [facility] 100 mg 2-13 TABLET BY ity of tablet 00:00: MOUTH [place] 00 EVERY DAY Medical Branch SERTRALINE 2021-03 Yes [id number] TAKE 1 [facility] 100 mg 2-13 TABLET BY ity of tablet 00:00: MOUTH [place] 00 EVERY DAY Medical Branch SERTRALINE 2021-03 Yes [id number] TAKE 1 [facility] 100 mg 2-13 TABLET BY ity of tablet 00:00: MOUTH [place] 00 DAY Medical Branch SERTRALINE 2021-03 Yes [id number] TAKE 1 [facility] 100 mg 2-13 TABLET BY ity of tablet 00:00: MOUTH [place] 00 EVERY DAY Medical Branch SERTRALINE 2021-03 Yes [id number] TAKE 1 [facility] 100 mg 2-13 TABLET BY ity of tablet 00:00: MOUTH [place] 00 EVERY DAY Medical Branch SERTRALINE 2021-03 Yes [id number] TAKE 1 [facility] 100 mg 2-13 TABLET BY ity of tablet 00:00: MOUTH [place] 00 EVERY DAY Medical Branch SERTRALINE 2021-03 Yes [id number] TAKE 1 [facility] 100 mg 2-13 TABLET BY ity of tablet 00:00: MOUTH [place] 00 EVERY DAY Medical Branch SERTRALINE 2021-03 Yes [id number] TAKE 1 [facility] 100 mg 2-13 TABLET BY ity of tablet 00:00: MOUTH [place] 00 EVERY DAY Medical Branch SERTRALINE 2021-03 Yes [id number] TAKE 1 [facility] 100 mg 2-13 TABLET BY ity of tablet 00:00: MOUTH [place] 00 EVERY DAY Medical Branch SERTRALINE 2021-03 Yes [id number] TAKE 1 [facility] 100 mg 2-13 TABLET BY ity of tablet 00:00: MOUTH [place] 00 EVERY DAY Medical Branch SERTRALINE 2021-03 Yes [id number] TAKE 1 [facility] 100 mg 2-13 TABLET BY ity of tablet 00:00: MOUTH [place] 00 EVERY DAY Medical Branch SERTRALINE 2021-03 Yes [id number] TAKE 1 [facility] 100 mg 2-13 TABLET BY ity of tablet 00:00: MOUTH EVERY DAY Medical Branch SERTRALINE 2021-03 Yes [id number] TAKE 1 [facility] 100 mg 2-13 TABLET BY ity of tablet 00:00: MOUTH 00 EVERY DAY Medical Branch SERTRALINE 2021-03 Yes [id number] TAKE 1 [facility] 100 mg 2-13 TABLET BY ity of tablet 00:00: MOUTH [place] 00 EVERY DAY Medical Branch SERTRALINE 2021-03 Yes [id number] TAKE 1 [facility] 100 mg 2-13 TABLET BY ity of tablet 00:00: MOUTH 00 EVERY DAY Medical Branch SERTRALINE 2021-03 Yes [id number] TAKE 1 [facility] 100 mg 2-13 TABLET BY ity of tablet 00:00: MOUTH 00 EVERY DAY Medical Branch SERTRALINE 2021-03 Yes [id number] TAKE 1 [facility] 100 mg 2-13 TABLET BY ity of tablet 00:00: MOUTH EVERY DAY Medical Branch SERTRALINE 2021-03 Yes [id number] TAKE 1 [facility] 100 mg 2-13 TABLET BY ity of tablet 00:00: MOUTH 00 EVERY DAY Medical Branch SERTRALINE 2021-03 Yes [id number] TAKE 1 [facility] 100 mg 2-13 TABLET BY ity of tablet 00:00: MOUTH [place] 00 EVERY DAY Medical Branch SERTRALINE 2021-03 Yes [id number] TAKE 1 [facility] 100 mg 2-13 TABLET BY ity of tablet 00:00: MOUTH [place] EVERY DAY Medical Branch SERTRALINE 2021-03 Yes [id number] TAKE 1 [facility] 100 mg 2-13 TABLET BY ity of tablet 00:00: MOUTH 00 EVERY DAY Medical Branch SERTRALINE 2021-03 Yes [id number] TAKE 1 [facility] 100 mg 2-13 TABLET BY ity of tablet 00:00: MOUTH [place] EVERY DAY Medical Branch SERTRALINE 2021-03 Yes [id number] TAKE 1 [facility] 100 mg 2-13 TABLET BY ity of tablet 00:00: MOUTH [place] 00 EVERY DAY Medical Branch SERTRALINE 2021-03 Yes [id number] TAKE 1 [facility] 100 mg 2-13 TABLET BY ity of tablet 00:00: MOUTH [place] 00 EVERY DAY Medical Branch SERTRALINE 2021-03 Yes [id number] TAKE 1 [facility] 100 mg 2-13 TABLET BY ity of tablet 00:00: MOUTH [place] 00 EVERY DAY Medical Branch SERTRALINE 2021-03 Yes [id number] TAKE 1 [facility] 100 mg 2-13 TABLET BY ity of tablet 00:00: MOUTH [place] 00 EVERY DAY Medical Branch SERTRALINE 2021-03 Yes [id number] TAKE 1 [facility] 100 mg 2-13 TABLET BY ity of tablet 00:00: MOUTH [place] EVERY DAY Medical Branch SERTRALINE 2021-03 Yes [id number] TAKE 1 [facility] 100 mg 2-13 TABLET BY ity of tablet 00:00: MOUTH [place] 00 EVERY DAY Medical Branch SERTRALINE 2021-03 Yes [id number] TAKE 1 [facility] 100 mg 2-13 TABLET BY ity of tablet 00:00: MOUTH [place] EVERY DAY Medical Branch SERTRALINE 2021-03 Yes [id number] TAKE 1 [facility] 100 mg 2-13 TABLET BY ity of tablet 00:00: MOUTH [place] EVERY DAY Medical Branch SERTRALINE 2021-03 Yes [id number] TAKE 1 [facility] 100 mg 2-13 TABLET BY ity of tablet 00:00: MOUTH 00 EVERY DAY Medical Branch SERTRALINE 2021-03 Yes [id number] TAKE 1 [facility] 100 mg 2-13 TABLET BY ity of tablet 00:00: MOUTH [place] 00 EVERY DAY Medical Branch SERTRALINE 2021-03 Yes [id number] TAKE 1 [facility] 100 mg 2-13 TABLET BY ity of tablet 00:00: MOUTH [place] EVERY DAY Medical Branch SERTRALINE 2021-03 Yes [id number] TAKE 1 [facility] 100 mg 2-13 TABLET BY ity of tablet 00:00: MOUTH [place] EVERY DAY Medical Branch SERTRALINE 2021-03 Yes [id number] TAKE 1 [facility] 100 mg 2-13 TABLET BY ity of tablet 00:00: MOUTH [place] 00 EVERY DAY Medical Branch SERTRALINE 2021-03 Yes [id number] TAKE 1 [facility] 100 mg 2-13 TABLET BY ity of tablet 00:00: MOUTH [place] 00 EVERY DAY Medical Branch SERTRALINE 2021-03 Yes [id number] TAKE 1 [facility] 100 mg 2-13 TABLET BY ity of tablet 00:00: MOUTH [place] EVERY DAY Medical Branch SERTRALINE 2021-03 Yes [id number] TAKE 1 [facility] 100 mg 2-13 TABLET BY ity of tablet 00:00: MOUTH [place] 00 EVERY DAY Medical Branch SERTRALINE 2021-03 Yes [id number] TAKE 1 [facility] 100 mg 2-13 TABLET BY ity of tablet 00:00: MOUTH 00 EVERY DAY Medical Branch SERTRALINE 2021-03 Yes [id number] TAKE 1 [facility] 100 mg 2-13 TABLET BY ity of tablet 00:00: MOUTH [place] 00 EVERY DAY Medical Branch SERTRALINE 2021-03 Yes [id number] TAKE 1 [facility] 100 mg 2-13 TABLET BY ity of tablet 00:00: MOUTH [place] 00 EVERY DAY Medical Branch SERTRALINE 2021-03 Yes [id number] TAKE 1 [facility] 100 mg 2-13 TABLET BY ity of tablet 00:00: MOUTH [place] 00 EVERY DAY Medical Branch SERTRALINE 2021-03 Yes [id number] TAKE 1 [facility] 100 mg 2-13 TABLET BY ity of tablet 00:00: MOUTH [place] 00 EVERY DAY Medical Branch SERTRALINE 2021-03 Yes [id number] TAKE 1 [facility] 100 mg 2-13 TABLET BY ity of tablet 00:00: MOUTH [place] EVERY DAY Medical Branch SERTRALINE 2021-03 Yes [id number] TAKE 1 [facility] 100 mg 2-13 TABLET BY ity of tablet 00:00: MOUTH [place] 00 EVERY DAY Medical Branch SERTRALINE 2021-03 Yes [id number] TAKE 1 [facility] 100 mg 2-13 TABLET BY ity of tablet 00:00: MOUTH [place] 00 EVERY DAY Medical Branch SERTRALINE 2021-03 Yes [id number] TAKE 1 [facility] 100 mg 2-13 TABLET BY ity of tablet 00:00: MOUTH [place] EVERY DAY Medical Branch SERTRALINE 2021-03 Yes [id number] TAKE 1 [facility] 100 mg 2-13 TABLET BY ity of tablet 00:00: MOUTH [place] 00 EVERY DAY Medical Branch SERTRALINE 2021-03 Yes [id number] TAKE 1 [facility] 100 mg 2-13 TABLET BY ity of tablet 00:00: MOUTH [place] EVERY DAY Medical Branch SERTRALINE 2021-03 Yes [id number] TAKE 1 [facility] 100 mg 2-13 TABLET BY ity of tablet 00:00: MOUTH [place] 00 EVERY DAY Medical Branch SERTRALINE 2021-03 Yes [id number] TAKE 1 [facility] 100 mg 2-13 TABLET BY ity of tablet 00:00: MOUTH [place] EVERY DAY Medical Branch SERTRALINE 2022-1 Yes [id number] TAKE 1 [facility] 100 mg 2-13 TABLET BY ity of tablet 00:00: MOUTH [place] 00 EVERY DAY Medical Branch SERTRALINE 2021- Yes [id number] TAKE 1 [facility] 100 mg 2-13 TABLET BY ity of tablet 00:00: MOUTH [place] 00 EVERY DAY Medical Branch SERTRALINE 2021-03 Yes [id number] TAKE 1 [facility] 100 mg 2-13 TABLET BY ity of tablet 00:00: MOUTH [place] 00 EVERY DAY Medical Branch SERTRALINE 2021-03 Yes [id number] TAKE 1 [facility] 100 mg 2-13 TABLET BY ity of tablet 00:00: MOUTH [place] 00 EVERY DAY Medical Branch SERTRALINE 2021-03 Yes [id number] TAKE 1 [facility] 100 mg 2-13 TABLET BY ity of tablet 00:00: MOUTH [place] 00 EVERY DAY Medical Branch SERTRALINE 2021-03 Yes [id number] TAKE 1 [facility] 100 mg 2-13 TABLET BY ity of tablet 00:00: MOUTH [place] 00 EVERY DAY Medical Branch SERTRALINE 2021-033- No [id number] TAKE 1 [facility] 100 mg 2-13 05-01 TABLET BY ity of tablet 00:00: 00:00 MOUTH [place] 00 :00 EVERY DAY Medical Branch cephALEXin 2021-03 Yes [id number] 500mg Take 1 [facility] 500 mg 1-28 capsule by ity of capsule 00:00: mouth in [place] 00 the Medical morning Branch and 1 capsule in the evening. cephALEXin 2021-03 Yes [id number] 500mg Take 1 [facility] 500 mg 1-28 capsule by ity of capsule 00:00: mouth in [place] 00 the Medical morning Branch and 1 capsule in the evening. cephALEXin 2021-03 Yes [id number] 500mg Take 1 [facility] 500 mg 1-28 capsule by it[facility] of capsule 00:00: mouth in [place] 00 the Medical morning Branch and 1 capsule in the evening. cephALEXin 2021-03 Yes [id number] 500mg Take 1 [facility] 500 mg 1-28 capsule by [facility] of capsule 00:00: mouth in [place] 00 the Medical morning Branch and 1 capsule in the evening. cephALEXin 2021-03 Yes [id number] 500mg Take 1 [facility] 500 mg 1-28 capsule by ity of capsule 00:00: mouth in [place] 00 the Medical morning Branch and 1 capsule in the evening. cephALEXin 2021-03 Yes [id number] 500mg Take 1 [facility] 500 mg 1-28 capsule by ity of capsule 00:00: mouth in [place] [address] the Medical morning Branch and 1 capsule in the evening. cephALEXin 2021- Yes [id number] 500mg Take 1 [facility] 500 mg 1-28 capsule by ity of capsule 00:00: mouth in [place] [address] the Medical morning Branch and 1 capsule in the evening. cephALEXin 2021-1 Yes [id number] 500mg Take 1 [facility] 500 mg 1-28 capsule by ity of capsule 00:00: mouth in [place] [address] the Medical morning Branch and 1 capsule in the evening. cephALEXin 2021- Yes [id number] 500mg Take 1 [facility] 500 mg 1-28 capsule by ity of capsule 00:00: mouth in [place] [address] the Medical morning Branch and 1 capsule in the evening. cephALEXin 2021-1 Yes [id number] 500mg Take 1 [facility] 500 mg 1-28 capsule by ity of capsule 00:00: mouth in [place] [address] the Medical morning Branch and 1 capsule in the evening. cephALEXin 2021- Yes [id number] 500mg Take 1 [facility] 500 mg 1-28 capsule by ity of capsule 00:00: mouth in [place] [address] the Medical morning Branch and 1 capsule in the evening. cephALEXin 2021- Yes [id number] 500mg Take 1 [facility] 500 mg 1-28 capsule by ity of capsule 00:00: mouth in [place] [address] the Medical morning Branch and 1 capsule in the evening. cephALEXin 2021-1 Yes [id number] 500mg Take 1 [facility] 500 mg 1-28 capsule by ity of capsule 00:00: mouth in [place] [address] the Medical morning [place] and 1 capsule in the evening. cephALEXin 2021-1 Yes [id number] 500mg Take 1 [facility] 500 mg 1-28 capsule by ity of capsule 00:00: mouth in [address] Medical morning Branch and 1 capsule in the evening. cephALEXin 202-1 Yes [id number] 500mg Take 1 [facility] 500 mg 1-28 capsule by ity of capsule 00:00: mouth in [address] Medical morning [place] and 1 capsule in the evening. cephALEXin 2022-1 Yes [id number] 500mg Take 1 [facility] 500 mg 1-28 capsule by ity of capsule 00:00: mouth in [address] Medical morning [place] and 1 capsule in the evening. cephALEXin 202-1 Yes [id number] 500mg Take 1 [facility] 500 mg 1-28 capsule by ity of capsule 00:00: mouth in [place] 00 the Medical morning Branch and 1 capsule in the evening. cephALEXin 2021-03 Yes [id number] 500mg Take 1 [facility] 500 mg 1-28 capsule by ity of capsule 00:00: mouth in [place] 00 the Medical morning Branch and 1 capsule in the evening. cephALEXin 2021-03 Yes [id number] 500mg Take 1 [facility] 500 mg 1-28 capsule by ity of capsule 00:00: mouth in [place] 00 the Medical morning Branch and 1 capsule in the evening. cephALEXin 2021-03 Yes [id number] 500mg Take 1 [facility] 500 mg 1-28 capsule by ity of capsule 00:00: mouth in [place] 00 the Medical morning Branch and 1 capsule in the evening. cephALEXin 2021-03 Yes [id number] 500mg Take 1 [facility] 500 mg 1-28 capsule by ity of capsule 00:00: mouth in [place] [address] the Medical morning Branch and 1 capsule in the evening. cephALEXin 2021-03 Yes [id number] 500mg Take 1 [facility] 500 mg 1-28 capsule by ity of capsule 00:00: mouth in [place] 00 the Medical morning Branch and 1 capsule in the evening. cephALEXin 2021-03 Yes [id number] 500mg Take 1 [facility] 500 mg 1-28 capsule by ity of capsule 00:00: mouth in [place] 00 the Medical morning Branch and 1 capsule in the evening. cephALEXin 2021-03 Yes [id number] 500mg Take 1 [facility] 500 mg 1-28 capsule by ity of capsule 00:00: mouth in [place] 00 the Medical morning Branch and 1 capsule in the evening. dextroamphe 2021-03 Yes [id number] 20mg Take 1 [facility] tamine-amph 1-28 tablet by ity of etamine 00:00: mouth in [place] (ADDERALL) 00 the Medical 20 mg morning Branch tablet and 1 tablet at noon and 1 tablet in the evening. clonazePAM 2021-03 Yes [id number] 1mg Take 1 [facility] 1 mg tablet 1-28 tablet by ity of 00:00: mouth in [place] 00 the Medical morning Branch and 1 tablet at noon and 1 tablet in the evening. cephALEXin 2021-03 Yes [id number] 500mg Take 1 [facility] 500 mg 1-28 capsule by ity of capsule 00:00: mouth in [place] 00 the Medical morning Branch and 1 capsule in the evening. dextroamphe 2021- Yes [id number] 20mg Take 1 [facility] tamine-amph 1-28 tablet by ity of etamine 00:00: mouth in [place] (ADDERALL) 00 the Medical 20 mg morning Branch tablet and 1 tablet at noon and 1 tablet in the evening. clonazePAM 2021- Yes [id number] 1mg Take 1 [facility] 1 mg tablet 1-28 tablet by ity of 00:00: mouth in [place] 00 the Medical morning Branch and 1 tablet at noon and 1 tablet in the evening. cephALEXin 2021-03 Yes [id number] 500mg Take 1 [facility] 500 mg 1-28 capsule by ity of capsule 00:00: mouth in [place] 00 the Medical morning Branch and 1 capsule in the evening. dextroamphe 2021-03 Yes [id number] 20mg Take 1 [facility] tamine-amph 1-28 tablet by ity of etamine 00:00: mouth [facility] [place] [facility] the Medical 20 mg morning Branch tablet and 1 tablet at noon and 1 tablet in the evening. clonazePAM 2021-03 Yes [id number] 1mg Take 1 [facility] 1 mg tablet 1-28 tablet by ity of 00:00: mouth in [place] 00 the Medical morning Branch and 1 tablet at noon and 1 tablet in the evening. cephALEXin 2021-03 Yes [id number] 500mg Take 1 [facility] 500 mg 1-28 capsule by ity of capsule 00:00: mouth in [place] 00 the Medical morning Branch and 1 capsule in the evening. dextroamphe 2021- Yes [id number] 20mg Take 1 [facility] tamine-amph 1-28 tablet by ity of etamine 00:00: mouth in [place] (ADDERALL) 00 the Medical 20 mg morning Branch tablet and 1 tablet at noon and 1 tablet in the evening. clonazePAM 2021- Yes [id number] 1mg Take 1 [facility] 1 mg tablet 1-28 tablet by ity of 00:00: mouth in [place] 00 the Medical morning Branch and 1 tablet at noon and 1 tablet in the evening. cephALEXin 2021- Yes [id number] 500mg Take 1 [facility] 500 mg 1-28 capsule by ity of capsule 00:00: mouth in [place] 00 the Medical morning Branch and 1 capsule in the evening. dextroamphe 2021- Yes [id number] 20mg Take 1 [facility] tamine-amph 1-28 tablet by ity of etamine 00:00: mouth in [place] (ADDERALL) 00 the Medical 20 mg morning Branch tablet and 1 tablet at noon and 1 tablet in the evening. clonazePAM 2021- Yes [id number] 1mg Take 1 [facility] 1 mg tablet 1-28 tablet by ity of 00:00: mouth in [place] 00 the Medical morning Branch and 1 tablet at noon and 1 tablet in the evening. cephALEXin 2021- Yes [id number] 500mg Take 1 [facility] 500 mg 1-28 capsule by ity of capsule 00:00: mouth in [place] 00 the Medical morning Branch and 1 capsule in the evening. dextroamphe 2021- Yes [id number] 20mg Take 1 [facility] tamine-amph 1-28 tablet by ity of etamine 00:00: mouth in [place] (ADDERALL) 00 the Medical 20 mg morning Branch tablet and 1 tablet at noon and 1 tablet in the evening. clonazePAM 2021- Yes [id number] 1mg Take 1 [facility] 1 mg tablet 1-28 tablet by ity of 00:00: mouth in [place] 00 the Medical morning Branch and 1 tablet at noon and 1 tablet in the evening. cephALEXin 2021-03 Yes [id number] 500mg Take 1 [facility] 500 mg 1-28 capsule by ity of capsule 00:00: mouth in [place] [address] the Medical morning Branch and 1 capsule in the evening. clonazePAM 2021- Yes [id number] 1mg Take 1 [facility] 1 mg tablet 1-28 tablet by ity of 00:00: mouth in [place] 00 the Medical morning Branch and 1 tablet at noon and 1 tablet in the evening. cephALEXin 2021- Yes [id number] 500mg Take 1 [facility] 500 mg 1-28 capsule by ity of capsule 00:00: mouth in [place] 00 the Medical morning Branch and 1 capsule in the evening. clonazePAM 2021-1 Yes [id number] 1mg Take 1 [facility] 1 mg tablet 1-28 tablet by ity of 00:00: mouth in [place] [address] the Medical morning Branch and 1 tablet at noon and 1 tablet in the evening. cephALEXin 2021-1 Yes [id number] 500mg Take 1 [facility] 500 mg 1-28 capsule by ity of capsule 00:00: mouth in [place] [address] the Medical morning Branch and 1 capsule in the evening. clonazePAM 2022-1 Yes [id number] 1mg Take 1 [facility] 1 mg tablet 1-28 tablet by ity of 00:00: mouth in [address] Medical morning [place] and 1 tablet at noon and 1 tablet in the evening. cephALEXin 2022-1 Yes [id number] 500mg Take 1 [facility] 500 mg 1-28 capsule by ity of capsule 00:00: mouth in [address] morning [place] and 1 capsule in the evening. clonazePAM 2022-1 Yes [id number] 1mg Take 1 [facility] 1 mg tablet 1-28 tablet by ity of 00:00: mouth in [address] morning [place] and 1 tablet at noon and 1 tablet in the evening. cephALEXin 2021-1 Yes [id number] 500mg Take 1 [facility] 500 mg 1-28 capsule by ity of capsule 00:00: mouth in [address] morning [place] and 1 capsule in the evening. clonazePAM 2-1 Yes [id number] 1mg Take 1 [facility] 1 mg tablet 1-28 tablet by ity of 00:00: mouth in [address] and 1 tablet at noon and 1 tablet in the evening. cephALEXin 2021-1 Yes [id number] 500mg Take 1 [facility] 500 mg 1-28 capsule by ity of capsule 00:00: mouth in [address] morning [place] and 1 capsule in the evening. clonazePAM 2-1 Yes [id number] 1mg Take 1 [facility] 1 mg tablet 1-28 tablet by ity of 00:00: mouth in [address] morning [place] and 1 tablet at noon and 1 tablet in the evening. cephALEXin 2022-1 Yes [id number] 500mg Take 1 [facility] 500 mg 1-28 capsule by ity of capsule 00:00: mouth in [address] morning [place] and 1 capsule in the evening. clonazePAM 2022-1 Yes [id number] 1mg Take 1 [facility] 1 mg tablet 1-28 tablet by ity of 00:00: mouth in [address] morning [place] and 1 tablet at noon and 1 tablet in the evening. cephALEXin 2022-1 Yes [id number] 500mg Take 1 [facility] 500 mg 1-28 capsule by ity of capsule 00:00: mouth in [address] morning [place] and 1 capsule in the evening. clonazePAM 2022-1 Yes [id number] 1mg Take 1 [facility] 1 mg tablet 1-28 tablet by ity of 00:00: mouth in [place] [address] the Medical morning Branch and 1 tablet at noon and 1 tablet in the evening. cephALEXin 2021-1 Yes [id number] 500mg Take 1 [facility] 500 mg 1-28 capsule by ity of capsule 00:00: mouth in [place] [address] the Medical morning [place] and 1 capsule in the evening. clonazePAM 2021-1 Yes [id number] 1mg Take 1 [facility] 1 mg tablet 1-28 tablet by ity of 00:00: mouth in [place] [address] the Medical morning Branch and 1 tablet at noon and 1 tablet in the evening. cephALEXin 2021-1 Yes [id number] 500mg Take 1 [facility] 500 mg 1-28 capsule by ity of capsule 00:00: mouth in [address] morning [place] and 1 capsule in the evening. clonazePAM 2021-1 Yes [id number] 1mg Take 1 [facility] 1 mg tablet 1-28 tablet by ity of 00:00: mouth in [address] morning [place] and 1 tablet at noon and 1 tablet in the evening. cephALEXin 2021-1 Yes [id number] 500mg Take 1 [facility] 500 mg 1-28 capsule by ity of capsule 00:00: mouth in [address] morning [place] and 1 capsule in the evening. clonazePAM 2021-1 Yes [id number] 1mg Take 1 [facility] 1 mg tablet 1-28 tablet by ity of 00:00: mouth in [address] morning [place] and 1 tablet at noon and 1 tablet in the evening. cephALEXin 2021-1 Yes [id number] 500mg Take 1 [facility] 500 mg 1-28 capsule by ity of capsule 00:00: mouth in [address] morning [place] and 1 capsule in the evening. clonazePAM 2021-1 Yes [id number] 1mg Take 1 [facility] 1 mg tablet 1-28 tablet by ity of 00:00: mouth in [address] morning [place] and 1 tablet at noon and 1 tablet in the evening. cephALEXin 202-1 Yes [id number] 500mg Take 1 [facility] 500 mg 1-28 capsule by ity of capsule 00:00: mouth in [address] morning [place] and 1 capsule in the evening. clonazePAM 2022-1 Yes [id number] 1mg Take 1 [facility] 1 mg tablet 1-28 tablet by ity of 00:00: mouth in [address] morning [place] and 1 tablet at noon and 1 tablet in the evening. cephALEXin 2022-1 Yes [id number] 500mg Take 1 [facility] 500 mg 1-28 capsule by ity of capsule 00:00: mouth in [address] morning [place] and 1 capsule in the evening. clonazePAM 2022-1 Yes [id number] 1mg Take 1 [facility] 1 mg tablet 1-28 tablet by ity of 00:00: mouth in [address] morning [place] and 1 tablet at noon and 1 tablet in the evening. cephALEXin 202-1 Yes [id number] 500mg Take 1 [facility] 500 mg 1-28 capsule by ity of capsule 00:00: mouth in [address] morning [place] and 1 capsule in the evening. clonazePAM 2-1 Yes [id number] 1mg Take 1 [facility] 1 mg tablet 1-28 tablet by ity of 00:00: mouth in [address] morning [place] and 1 tablet at noon and 1 tablet in the evening. cephALEXin 2021-1 Yes [id number] 500mg Take 1 [facility] 500 mg 1-28 capsule by ity of capsule 00:00: mouth in [address] and 1 capsule in the evening. clonazePAM 2-1 Yes [id number] 1mg Take 1 [facility] 1 mg tablet 1-28 tablet by ity of 00:00: mouth in [address] and 1 tablet at noon and 1 tablet in the evening. cephALEXin 2022-1 Yes [id number] 500mg Take 1 [facility] 500 mg 1-28 capsule by ity of capsule 00:00: mouth in [address] and 1 capsule in the evening. clonazePAM 2022-1 Yes [id number] 1mg Take 1 [facility] 1 mg tablet 1-28 tablet by ity of 00:00: mouth in [address] and 1 tablet at noon and 1 tablet in the evening. cephALEXin 2022-1 Yes [id number] 500mg Take 1 [facility] 500 mg 1-28 capsule by ity of capsule 00:00: mouth in [address] and 1 capsule in the evening. clonazePAM 2022-1 Yes [id number] 1mg Take 1 [facility] 1 mg tablet 1-28 tablet by ity of 00:00: mouth in [address] and 1 tablet at noon and 1 tablet in the evening. cephALEXin 2022-1 Yes [id number] 500mg Take 1 [facility] 500 mg 1-28 capsule by ity of capsule 00:00: mouth in [address] morning [place] and 1 capsule in the evening. clonazePAM 2022-1 Yes [id number] 1mg Take 1 [facility] 1 mg tablet 1-28 tablet by ity of 00:00: mouth in [address] morning [place] and 1 tablet at noon and 1 tablet in the evening. cephALEXin 202-1 Yes [id number] 500mg Take 1 [facility] 500 mg 1-28 capsule by ity of capsule 00:00: mouth in [address] morning [place] and 1 capsule in the evening. clonazePAM 2-1 Yes [id number] 1mg Take 1 [facility] 1 mg tablet 1-28 tablet by ity of 00:00: mouth in [address] and 1 tablet at noon and 1 tablet in the evening. cephALEXin 2021-1 Yes [id number] 500mg Take 1 [facility] 500 mg 1-28 capsule by ity of capsule 00:00: mouth in [address] and 1 capsule in the evening. clonazePAM 2021-1 Yes [id number] 1mg Take 1 [facility] 1 mg tablet 1-28 tablet by ity of 00:00: mouth in [address] and 1 tablet at noon and 1 tablet in the evening. cephALEXin 2021-1 Yes [id number] 500mg Take 1 [facility] 500 mg 1-28 capsule by ity of capsule 00:00: mouth in [address] and 1 capsule in the evening. clonazePAM 2022-1 Yes [id number] 1mg Take 1 [facility] 1 mg tablet 1-28 tablet by ity of 00:00: mouth in [address] and 1 tablet at noon and 1 tablet in the evening. cephALEXin 2022-1 Yes [id number] 500mg Take 1 [facility] 500 mg 1-28 capsule by ity of capsule 00:00: mouth in [address] and 1 capsule in the evening. clonazePAM 2022-1 Yes [id number] 1mg Take 1 [facility] 1 mg tablet 1-28 tablet by ity of 00:00: mouth in [address] morning [place] and 1 tablet at noon and 1 tablet in the evening. cephALEXin 2022-1 Yes [id number] 500mg Take 1 [facility] 500 mg 1-28 capsule by ity of capsule 00:00: mouth in [place] [address] the Medical morning Branch and 1 capsule in the evening. clonazePAM 2021-03 Yes [id number] 1mg Take 1 [facility] 1 mg tablet 1-28 tablet by ity of 00:00: mouth in [place] [address] the Medical morning Branch and 1 tablet at noon and 1 tablet in the evening. cephALEXin 2021-03 Yes [id number] 500mg Take 1 [facility] 500 mg 1-28 capsule by ity of capsule 00:00: mouth in [place] [address] the Medical morning Branch and 1 capsule in the evening. cephALEXin 2021-03 Yes [id number] 500mg Take 1 [facility] 500 mg 1-28 capsule by ity of capsule 00:00: mouth in [place] [address] the Medical morning Branch and 1 capsule in the evening. cephALEXin 2021-03 Yes [id number] 500mg Take 1 [facility] 500 mg 1-28 capsule by ity of capsule 00:00: mouth in [place] [address] the Medical morning [place] and 1 capsule in the evening. cephALEXin 2021-03 Yes [id number] 500mg Take 1 [facility] 500 mg 1-28 capsule by ity of capsule 00:00: mouth in [place] [address] the Medical morning Branch and 1 capsule in the evening. cephALEXin 2021-03 Yes [id number] 500mg Take 1 [facility] 500 mg 1-28 capsule by ity of capsule 00:00: mouth in [place] [address] the Medical morning Branch and 1 capsule in the evening. cephALEXin 2021-03 Yes [id number] 500mg Take 1 [facility] 500 mg 1-28 capsule by ity of capsule 00:00: mouth in [place] [address] the Medical morning Branch and 1 capsule in the evening. cephALEXin 2021-03 Yes [id number] 500mg Take 1 [facility] 500 mg 1-28 capsule by ity of capsule 00:00: mouth in [place] [address] the Medical morning Branch and 1 capsule in the evening. cephALEXin 2021-03- No [id number] 500mg Take 1 [facility] 500 mg 1-28 05-09 capsule by ity of capsule 00:00: 00:00 mouth in [place] 00 :00 the Medical morning [place] and 1 capsule in the evening. cephALEXin 2021-03- No [id number] 500mg Take 1 [facility] 500 mg 1-28 05-09 capsule by ity of capsule 00:00: 00:00 mouth in [place] 00 :00 the Medical morning Branch and 1 capsule in the evening. clonazePAM 2021-03- No [id number] 1mg Take 1 [facility] 1 mg tablet 04-25 tablet by it y of 00:00: 00:00 mouth in [place] 00 :00 the Medical morning Branch and 1 tablet at noon and 1 tablet in the evening. clonazePAM 2021-03- No [id number] 1mg Take 1 [facility] 1 mg tablet 04-25 tablet by it y of 00:00: 00:00 mouth in [place] 00 :00 the Medical morning Branch and 1 tablet at noon and 1 tablet in the evening. clonazePAM 2021-03- No [id number] 1mg Take 1 [facility] 1 mg tablet 04-25 tablet by it y of 00:00: 00:00 mouth in [place] 00 :00 the Medical morning Branch and 1 tablet at noon and 1 tablet in the evening. dextroamphe 2021-03- No [id number] 20mg Take 1 [facility] tamine-amph 04-25 12-20 tablet by it y of etamine 00:00: 00:00 mouth in [place] ([facility]) 00 :00 the Medical 20 mg morning Branch tablet and 1 tablet at noon and 1 tablet in the evening. clonazePAM 2021-03 Yes [id number] 1mg Take 1 [facility] 1 mg tablet - tablet by ity of 00:00: mouth in [place] 00 the Medical morning Branch and 1 tablet at noon and 1 tablet in the evening. cephALEXin 2021-03 Yes [id number] 500mg Take 1 [facility] 500 mg 1-01 capsule by ity of capsule 00:00: mouth in [place] 00 the Medical morning Branch and 1 capsule in the evening. clonazePAM 2021-03 Yes [id number] 1mg Take 1 [facility] 1 mg tablet 1-01 tablet by ity of 00:00: mouth in [place] 00 the Medical morning Branch and 1 tablet at noon and 1 tablet in the evening. cephALEXin 2021-03 Yes [id number] 500mg Take 1 [facility] 500 mg 1-01 capsule by ity of capsule 00:00: mouth in [place] 00 the Medical morning Branch and 1 capsule in the evening. clonazePAM 2021-03- No [id number] 1mg Take 1 [facility] 1 mg tablet 1-02-23 tablet by it y of 00:00: 00:00 mouth in [place] 00 :00 the Medical morning Branch and 1 tablet at noon and 1 tablet in the evening. cephALEXin 2021-03- No [id number] 500mg Take 1 [facility] 500 mg 03-29 capsule by ity of capsule 00:00: 00:00 mouth in [place] 00 :00 the Medical morning Branch and 1 capsule in the evening. busPIRone 2021-03 Yes [id number] 10mg Take 1 [facility] 10 mg 0-25 tablet by ity of tablet 00:00: mouth in [place] 00 the Medical morning Branch and 1 tablet in the evening. busPIRone 2021-03 Yes [id number] 10mg Take 1 [facility] n[facility] 10 mg 0-25 tablet by ity of tablet 00:00: mouth in [place] 00 the Medical morning Branch and 1 tablet in the evening. dextroamphe 2021-03 Yes [id number] 20mg Take 1 [facility] tamine-amph 0-25 tablet by ity of etamine 00:00: mouth in [place] ([facility]) 00 the Medical 20 mg morning Branch tablet and 1 tablet at noon and 1 tablet in the evening. busPIRone 2021-03 Yes [id number] 10mg Take 1 [facility] nivers 10 mg 0-25 tablet by ity of tablet 00:00: mouth in [place] 00 the Medical morning Branch and 1 tablet in the evening. dextroamphe 2021-03 Yes [id number] 20mg Take 1 [facility] tamine-amph 0-25 tablet by ity of etamine 00:00: mouth in [place] ([facility]) 00 the Medical 20 mg morning Branch tablet and 1 tablet at noon and 1 tablet in the evening. busPIRone 2021-03 Yes [id number] 10mg Take 1 [facility] n[facility] 10 mg 0-25 tablet by ity of tablet 00:00: mouth in [place] 00 the Medical morning Branch and 1 tablet in the evening. dextroamphe 2021-03 Yes [id number] 20mg Take 1 [facility] tamine-amph 0-25 tablet by ity of etamine 00:00: mouth in [place] ([facility]) 00 the Medical 20 mg morning Branch tablet and 1 tablet at noon and 1 tablet in the evening. busPIRone 2021-03 Yes [id number] 10mg Take 1 [facility] nivers 10 mg 0-25 tablet by ity of tablet 00:00: mouth in [place] 00 the Medical morning Branch and 1 tablet in the evening. dextroamphe 2021-03 Yes [id number] 20mg Take 1 [facility] tamine-amph 0-25 tablet by ity of etamine 00:00: mouth in [place] ([facility]) 00 the Medical 20 mg morning Branch tablet and 1 tablet at noon and 1 tablet in the evening. busPIRone 2021-03 Yes [id number] 10mg Take 1 [facility] nivers 10 mg 0-25 tablet by ity of tablet 00:00: mouth in [place] 00 the Medical morning Branch and 1 tablet in the evening. dextroamphe 2021-03 Yes [id number] 20mg Take 1 [facility] tamine-amph 0-25 tablet by ity of etamine 00:00: mouth in [place] ([facility]) 00 the Medical 20 mg morning Branch tablet and 1 tablet at noon and 1 tablet in the evening. busPIRone 2021-03 Yes [id number] 10mg Take 1 [facility] nivers 10 mg 0-25 tablet by ity of tablet 00:00: mouth in [place] 00 the Medical morning Branch and 1 tablet in the evening. dextroamphe 2021-03 Yes [id number] 20mg Take 1 [facility] tamine-amph 0-25 tablet by ity of etamine 00:00: mouth in [place] ([facility]) 00 the Medical 20 mg morning Branch tablet and 1 tablet at noon and 1 tablet in the evening. busPIRone 2021-03 Yes [id number] 10mg Take 1 [facility] nivers 10 mg 0-25 tablet by ity of tablet 00:00: mouth in [place] 00 the Medical morning Branch and 1 tablet in the evening. dextroamphe 2021-03 Yes [id number] 20mg Take 1 [facility] tamine-amph 0-25 tablet by ity of etamine 00:00: mouth in [place] ([facility]) 00 the Medical 20 mg morning Branch tablet and 1 tablet at noon and 1 tablet in the evening. dextroamphe 2021-03 Yes [id number] 20mg Take 1 [facility] tamine-amph 0-25 tablet by ity of etamine 00:00: mouth in [place] ([facility]) 00 the Medical 20 mg morning Branch tablet and 1 tablet at noon and 1 tablet in the evening. dextroamphe 2021-1 Yes [id number] 20mg Take 1 [facility] tamine-amph 0-25 tablet by ity of etamine 00:00: mouth in [place] ([facility]) 00 the Medical 20 mg morning Branch tablet and 1 tablet at noon and 1 tablet in the evening. dextroamphe 2021-03- No [id number] 20mg Take 1 [facility] tamine-amph 0-25 11-28 tablet by it y of etamine 00:00: 00:00 mouth in [place] ([facility]) 00 :00 the Medical 20 mg morning Branch tablet and 1 tablet at noon and 1 tablet in the evening. busPIRone 2021-03- No [id number] 10mg Take 1 [facility] 10 mg 0-25 11- tablet by ity of tablet 00:00: 00:00 mouth in [place] 00 :00 the Medical morning Branch and 1 tablet in the evening. busPIRone 2021-03- No [id number] 10mg Take 1 [facility] 10 mg 0-25 - tablet by ity of tablet 00:00: 00:00 mouth in [place] 00 :00 the Medical morning Branch and 1 tablet in the evening. dextroamphe 2021-0 Yes [id number] 20mg Take 1 [facility] tamine-amph 9-26 tablet by ity of etamine 00:00: mouth in [place] ([facility]) 00 the Medical 20 mg morning Branch tablet and 1 tablet at noon and 1 tablet in the evening. dextroamphe 2021-0 Yes [id number] 20mg Take 1 [facility] tamine-amph 9-26 tablet by ity of etamine 00:00: mouth in [place] ([facility]) 00 the Medical 20 mg morning Branch tablet and 1 tablet at noon and 1 tablet in the evening. dextroamphe 2021-0 Yes [id number] 20mg Take 1 [facility] tamine-amph 9-26 tablet by ity of etamine 00:00: mouth in [place] ([facility]) 00 the Medical 20 mg morning Branch tablet and 1 tablet at noon and 1 tablet in the evening. dextroamphe 2021-0 Yes [id number] 20mg Take 1 [facility] tamine-amph 9-26 tablet by ity of etamine 00:00: mouth in [place] ([facility]) 00 the Medical 20 mg morning Branch tablet and 1 tablet at noon and 1 tablet in the evening. dextroamphe 2-0 Yes [id number] 20mg Take 1 [facility] tamine-amph 9-26 tablet by ity of etamine 00:00: mouth in [place] ([facility]) 00 the Medical 20 mg morning Branch tablet and 1 tablet at noon and 1 tablet in the evening. dextroamphe 2021-0 Yes [id number] 20mg Take 1 [facility] tamine-amph 9-26 tablet by ity of etamine 00:00: mouth in [place] ([facility]) 00 the Medical 20 mg morning Branch tablet and 1 tablet at noon and 1 tablet in the evening. dextroamphe 2021-0 Yes [id number] 20mg Take 1 [facility] tamine-amph 9-26 tablet by ity of etamine 00:00: mouth in [place] ([facility]) 00 the Medical 20 mg morning Branch tablet and 1 tablet at noon and 1 tablet in the evening. dextroamphe 2021-0 2- No [id number] 20mg Take 1 [facility] tamine-amph 9-26 10-25 tablet by it y of etamine 00:00: 00:00 mouth in [place] ([facility]) 00 :00 the Medical 20 mg morning Branch tablet and 1 tablet at noon and 1 tablet in the evening. dextroamphe 2021-0 2- No [id number] 20mg Take 1 [facility] tamine-amph 9-26 10-25 tablet by it y of etamine 00:00: 00:00 mouth in [place] ([facility]) 00 :00 the Medical 20 mg morning Branch tablet and 1 tablet at noon and 1 tablet in the evening. PERMETHRIN 2021-0 Yes [id number] APPLY TO [facility] 5 % cream 9-08 SKIN AND ity of 00:00: LEAVE ON [place] 00 FOR 8 - 10 Medical HOURS THEN Branch REPEAT IN A WEEK PERMETHRIN 2021-0 Yes [id number] APPLY TO [facility] 5 % cream 9-08 SKIN AND ity of 00:00: LEAVE ON [place] 00 FOR 8 - 10 Medical HOURS THEN Branch REPEAT IN A WEEK PERMETHRIN 2021-0 Yes [id number] APPLY TO [facility] 5 % cream 9-08 SKIN AND ity of 00:00: LEAVE ON [place] 00 FOR 8 - 10 Medical HOURS THEN Branch REPEAT IN A WEEK PERMETHRIN Yes [id number] APPLY TO [facility] 5 % cream 9-08 SKIN AND ity of 00:00: LEAVE ON [place] 00 FOR 8 - 10 Medical HOURS THEN Branch REPEAT IN A WEEK PERMETHRIN Yes [id number] APPLY TO [facility] 5 % cream 9-08 SKIN AND ity of 00:00: LEAVE ON [place] 00 FOR 8 - 10 Medical HOURS THEN Branch REPEAT IN A WEEK PERMETHRIN Yes [id number] APPLY TO [facility] 5 % cream 9-08 SKIN AND ity of 00:00: LEAVE ON [place] 00 FOR 8 - 10 Medical HOURS THEN Branch REPEAT IN A WEEK PERMETHRIN Yes [id number] APPLY TO [facility] 5 % cream 9-08 SKIN AND ity of 00:00: LEAVE ON [place] 00 FOR 8 - 10 Medical HOURS THEN Branch REPEAT IN A WEEK PERMETHRIN Yes [id number] APPLY TO [facility] 5 % cream 9-08 SKIN AND ity of 00:00: LEAVE ON [place] 00 FOR 8 - 10 Medical HOURS THEN Branch REPEAT IN A WEEK PERMETHRIN Yes [id number] APPLY TO [facility] 5 % cream 9-08 SKIN AND ity of 00:00: LEAVE ON [place] 00 FOR 8 - 10 Medical HOURS THEN Branch REPEAT IN A WEEK PERMETHRIN Yes [id number] APPLY TO [facility] 5 % cream 9-08 SKIN AND ity of 00:00: LEAVE ON [place] 00 FOR 8 - 10 Medical HOURS THEN Branch REPEAT IN A WEEK PERMETHRIN Yes [id number] APPLY TO [facility] 5 % cream 9-08 SKIN AND ity of 00:00: LEAVE ON [place] 00 FOR 8 - 10 Medical HOURS THEN Branch REPEAT IN A WEEK PERMETHRIN Yes [id number] APPLY TO [facility] 5 % cream 9-08 SKIN AND ity of 00:00: LEAVE ON [place] 00 FOR 8 - 10 Medical HOURS THEN Branch REPEAT IN A WEEK PERMETHRIN Yes [id number] APPLY TO [facility] 5 % cream 9-08 SKIN AND ity of 00:00: LEAVE ON [place] 00 FOR 8 - 10 Medical HOURS THEN Branch REPEAT IN A WEEK PERMETHRIN Yes [id number] APPLY TO [facility] 5 % cream 9-08 SKIN AND ity of 00:00: LEAVE ON [place] 00 FOR 8 - 10 Medical HOURS THEN Branch REPEAT IN A WEEK PERMETHRIN Yes [id number] APPLY TO [facility] 5 % cream 9-08 SKIN AND ity of 00:00: LEAVE ON [place] 00 FOR 8 - 10 Medical HOURS THEN Branch REPEAT IN A WEEK PERMETHRIN 0 Yes [id number] APPLY TO [facility] 5 % cream 9-08 SKIN AND ity of 00:00: LEAVE ON [place] 00 FOR 8 - 10 Medical HOURS THEN Branch REPEAT IN A WEEK PERMETHRIN 2021- No [id number] APPLY TO [facility] 5 % cream 9-08 11- SKIN AND ity o f 00:00: 00:00 LEAVE ON [place] 00 :00 FOR 8 - 10 Medical HOURS THEN Branch REPEAT IN A WEEK PERMETHRIN 2021- No [id number] APPLY TO [facility] 5 % cream 9- 11- SKIN AND ity o f 00:00: 00:00 LEAVE ON [place] 00 :00 FOR 8 - 10 Medical HOURS THEN Branch REPEAT IN A WEEK triamcinolo Yes [id number] Apply to [facility] ne 8-31 area(s) 2 ity of acetonide 00:00: (two) [place] 0.1 % cream 00 times Medical daily. To Branch bumps mupirocin 2 0 Yes [id number] Apply to [facility] % ointment 8- area(s) 3 ity of 00:00: (three) [place] 00 times Medical daily. To Branch open wounds triamcinolo 0 Yes [id number] Apply to [facility] ne 8-31 area(s) 2 ity of acetonide 00:00: (two) [place] 0.1 % cream 00 times Medical daily. To Branch bumps mupirocin 2 0 Yes [id number] Apply to [facility] % ointment 8-31 area(s) 3 ity of 00:00: (three) [place] 00 times Medical daily. To Branch open wounds triamcinolo 0 Yes [id number] Apply to [facility] ne 8-31 area(s) 2 ity of acetonide 00:00: (two) [place] 0.1 % cream 00 times Medical daily. To Branch bumps mupirocin 2 2021-0 Yes [id number] Apply to [facility] % ointment 8-31 area(s) 3 ity of 00:00: (three) [place] 00 times Medical daily. To Branch open wounds triamcinolo 2-0 Yes [id number] Apply to [facility] ne 8-31 area(s) 2 ity of acetonide 00:00: (two) [place] 0.1 % cream 00 times Medical daily. To Branch bumps mupirocin 2 2-0 Yes [id number] Apply to [facility] % ointment 8-31 area(s) 3 ity of 00:00: (three) [place] 00 times Medical daily. To Branch open wounds triamcinolo 2-0 Yes [id number] Apply to [facility] ne 8-31 area(s) 2 ity of acetonide 00:00: (two) [place] 0.1 % cream 00 times Medical daily. To Branch bumps mupirocin 2 2021-0 Yes [id number] Apply to [facility] % ointment 8-31 area(s) 3 ity of 00:00: (three) [place] 00 times Medical daily. To Branch open wounds triamcinolo 2-0 Yes [id number] Apply to [facility] ne 8-31 area(s) 2 ity of acetonide 00:00: (two) [place] 0.1 % cream 00 times Medical daily. To Branch bumps mupirocin 2 2021-0 Yes [id number] Apply to [facility] % ointment 8-31 area(s) 3 ity of 00:00: (three) [place] 00 times Medical daily. To Branch open wounds triamcinolo 2-0 Yes [id number] Apply to [facility] ne 8-31 area(s) 2 ity of acetonide 00:00: (two) [place] 0.1 % cream 00 times Medical daily. To Branch bumps mupirocin 2 2-0 Yes [id number] Apply to [facility] % ointment 8-31 area(s) 3 ity of 00:00: (three) [place] 00 times Medical daily. To Branch open wounds triamcinolo 2-0 Yes [id number] Apply to [facility] ne 8-31 area(s) 2 ity of acetonide 00:00: (two) [place] 0.1 % cream 00 times Medical daily. To Branch bumps mupirocin 2 2-0 Yes [id number] Apply to [facility] % ointment 8-31 area(s) 3 ity of 00:00: (three) [place] 00 times Medical daily. To Branch open wounds triamcinolo 2-0 Yes [id number] Apply to [facility] ne 8-31 area(s) 2 ity of acetonide 00:00: (two) [place] 0.1 % cream 00 times Medical daily. To Branch bumps mupirocin 2 2-0 Yes [id number] Apply to [facility] % ointment 8-31 area(s) 3 ity of 00:00: (three) [place] 00 times Medical daily. To Branch open wounds triamcinolo 2-0 Yes [id number] Apply to [facility] ne 8-31 area(s) 2 ity of acetonide 00:00: (two) [place] 0.1 % cream 00 times Medical daily. To Branch bumps mupirocin 2 2021-0 Yes [id number] Apply to [facility] % ointment 8-31 area(s) 3 ity of 00:00: (three) [place] 00 times Medical daily. To Branch open wounds triamcinolo 2021-0 Yes [id number] Apply to [facility] ne 8-31 area(s) 2 ity of acetonide 00:00: (two) [place] 0.1 % cream 00 times Medical daily. To Branch bumps mupirocin 2 2021-0 Yes [id number] Apply to [facility] % ointment 8-31 area(s) 3 ity of 00:00: (three) [place] 00 times Medical daily. To Branch open wounds triamcinolo 2-0 Yes [id number] Apply to [facility] ne 8-31 area(s) 2 ity of acetonide 00:00: (two) [place] 0.1 % cream 00 times Medical daily. To Branch bumps mupirocin 2 2-0 Yes [id number] Apply to [facility] % ointment 8-31 area(s) 3 ity of 00:00: (three) [place] 00 times Medical daily. To Branch open wounds triamcinolo 2-0 Yes [id number] Apply to [facility] ne 8-31 area(s) 2 ity of acetonide 00:00: (two) [place] 0.1 % cream 00 times Medical daily. To Branch bumps mupirocin 2 2-0 Yes [id number] Apply to [facility] % ointment 8-31 area(s) 3 ity of 00:00: (three) [place] 00 times Medical daily. To Branch open wounds triamcinolo 2-0 Yes [id number] Apply to [facility] ne 8-31 area(s) 2 ity of acetonide 00:00: (two) [place] 0.1 % cream 00 times Medical daily. To Branch bumps mupirocin 2 2021-0 Yes [id number] Apply to [facility] % ointment 8-31 area(s) 3 ity of 00:00: (three) [place] 00 times Medical daily. To Branch open wounds triamcinolo 2021-0 Yes [id number] Apply to [facility] ne 8-31 area(s) 2 ity of acetonide 00:00: (two) [place] 0.1 % cream 00 times Medical daily. To Branch bumps mupirocin 2 2021-0 Yes [id number] Apply to [facility] % ointment 8-31 area(s) 3 ity of 00:00: (three) [place] 00 times Medical daily. To Branch open wounds triamcinolo 2021-0 Yes [id number] Apply to [facility] ne 8-31 area(s) 2 ity of acetonide 00:00: (two) [place] 0.1 % cream 00 times Medical daily. To Branch bumps mupirocin 2 2021-0 Yes [id number] Apply to [facility] % ointment 8-31 area(s) 3 ity of 00:00: (three) [place] 00 times Medical daily. To Branch open wounds triamcinolo 2-0 Yes [id number] Apply to [facility] ne 8-31 area(s) 2 ity of acetonide 00:00: (two) [place] 0.1 % cream 00 times Medical daily. To Branch bumps mupirocin 2 2-0 Yes [id number] Apply to [facility] % ointment 8-31 area(s) 3 ity of 00:00: (three) [place] 00 times Medical daily. To Branch open wounds triamcinolo 2-0 Yes [id number] Apply to [facility] ne 8-31 area(s) 2 ity of acetonide 00:00: (two) [place] 0.1 % cream 00 times Medical daily. To Branch bumps mupirocin 2 2-0 Yes [id number] Apply to [facility] % ointment 8-31 area(s) 3 ity of 00:00: (three) [place] 00 times Medical daily. To Branch open wounds triamcinolo 2-0 Yes [id number] Apply to [facility] ne 8-31 area(s) 2 ity of acetonide 00:00: (two) [place] 0.1 % cream 00 times Medical daily. To Branch bumps mupirocin 2 2021-0 Yes [id number] Apply to [facility] % ointment 8-31 area(s) 3 ity of 00:00: (three) [place] 00 times Medical daily. To Branch open wounds triamcinolo 2-0 Yes [id number] Apply to [facility] ne 8-31 area(s) 2 ity of acetonide 00:00: (two) [place] 0.1 % cream 00 times Medical daily. To Branch bumps mupirocin 2 2021-0 Yes [id number] Apply to [facility] % ointment 8-31 area(s) 3 ity of 00:00: (three) [place] 00 times Medical daily. To Branch open wounds triamcinolo 2021-0 Yes [id number] Apply to [facility] ne 8-31 area(s) 2 ity of acetonide 00:00: (two) [place] 0.1 % cream 00 times Medical daily. To Branch bumps mupirocin 2 2021-0 Yes [id number] Apply to [facility] % ointment 8-31 area(s) 3 ity of 00:00: (three) [place] 00 times Medical daily. To Branch open wounds triamcinolo 2-0 Yes [id number] Apply to [facility] ne 8-31 area(s) 2 ity of acetonide 00:00: (two) [place] 0.1 % cream 00 times Medical daily. To Branch bumps mupirocin 2 2-0 Yes [id number] Apply to [facility] % ointment 8-31 area(s) 3 ity of 00:00: (three) [place] 00 times Medical daily. To Branch open wounds triamcinolo 2-0 Yes [id number] Apply to [facility] ne 8-31 area(s) 2 ity of acetonide 00:00: (two) [place] 0.1 % cream 00 times Medical daily. To Branch bumps mupirocin 2 2021-0 Yes [id number] Apply to [facility] % ointment 8-31 area(s) 3 ity of 00:00: (three) [place] 00 times Medical daily. To Branch open wounds triamcinolo 2-0 Yes [id number] Apply to [facility] ne 8-31 area(s) 2 ity of acetonide 00:00: (two) [place] 0.1 % cream 00 times Medical daily. To Branch bumps mupirocin 2 2021-0 Yes [id number] Apply to [facility] % ointment 8-31 area(s) 3 ity of 00:00: (three) [place] 00 times Medical daily. To Branch open wounds dextroamphe 2021-0 Yes [id number] 20mg Take 1 [facility] tamine-amph 8-31 tablet by ity of etamine 00:00: mouth in [place] (ADDERALL) 00 the Medical 20 mg morning Branch tablet and 1 tablet at noon and 1 tablet in the evening. triamcinolo 2021-0 Yes [id number] Apply to [facility] ne 8-31 area(s) 2 ity of acetonide 00:00: (two) [place] 0.1 % cream 00 times Medical daily. To Branch bumps mupirocin 2 2021-0 Yes [id number] Apply to [facility] % ointment 8-31 area(s) 3 ity of 00:00: (three) [place] 00 times Medical daily. To Branch open wounds dextroamphe 2-0 Yes [id number] 20mg Take 1 [facility] tamine-amph 8-31 tablet by ity of etamine 00:00: mouth in [place] (ADDERALL) 00 the Medical 20 mg morning Branch tablet and 1 tablet at noon and 1 tablet in the evening. triamcinolo 2022-0 Yes [id number] Apply to [facility] ne 8-31 area(s) 2 ity of acetonide 00:00: (two) [place] 0.1 % cream 00 times Medical daily. To Branch bumps mupirocin 2 2021-0 Yes [id number] Apply to [facility] % ointment 8-31 area(s) 3 ity of 00:00: (three) [place] 00 times Medical daily. To Branch open wounds dextroamphe 2022-0 Yes [id number] 20mg Take 1 [facility] tamine-amph 8-31 tablet by ity of etamine 00:00: mouth in [place] (ADDERALL) 00 the Medical 20 mg morning Branch tablet and 1 tablet at noon and 1 tablet in the evening. triamcinolo 2021-0 Yes [id number] Apply to [facility] ne 8-31 area(s) 2 ity of acetonide 00:00: (two) [place] 0.1 % cream 00 times Medical daily. To Branch bumps mupirocin 2 2021-0 Yes [id number] Apply to [facility] % ointment 8-31 area(s) 3 ity of 00:00: (three) [place] 00 times Medical daily. To Branch open wounds triamcinolo 2021-0 Yes [id number] Apply to [facility] ne 8-31 area(s) 2 ity of acetonide 00:00: (two) [place] 0.1 % cream 00 times Medical daily. To Branch bumps mupirocin 2 2021-0 Yes [id number] Apply to [facility] % ointment 8-31 area(s) 3 ity of 00:00: (three) [place] 00 times Medical daily. To Branch open wounds triamcinolo 2021-0 Yes [id number] Apply to [facility] ne 8-31 area(s) 2 ity of acetonide 00:00: (two) [place] 0.1 % cream 00 times Medical daily. To Branch bumps mupirocin 2 2021-0 Yes [id number] Apply to [facility] % ointment 8-31 area(s) 3 ity of 00:00: (three) [place] 00 times Medical daily. To Branch open wounds triamcinolo 2021-0 Yes [id number] Apply to [facility] ne 8-31 area(s) 2 ity of acetonide 00:00: (two) [place] 0.1 % cream 00 times Medical daily. To Branch bumps mupirocin 2 2021-0 Yes [id number] Apply to [facility] % ointment 8-31 area(s) 3 ity of 00:00: (three) [place] 00 times Medical daily. To Branch open wounds triamcinolo 2021-0 Yes [id number] Apply to [facility] ne 8-31 area(s) 2 ity of acetonide 00:00: (two) [place] 0.1 % cream 00 times Medical daily. To Branch bumps mupirocin 2 2-0 Yes [id number] Apply to [facility] % ointment 8-31 area(s) 3 ity of 00:00: (three) [place] 00 times Medical daily. To Branch open wounds triamcinolo 2-0 Yes [id number] Apply to [facility] ne 8-31 area(s) 2 ity of acetonide 00:00: (two) [place] 0.1 % cream 00 times Medical daily. To Branch bumps mupirocin 2 2021-0 Yes [id number] Apply to [facility] % ointment 8-31 area(s) 3 ity of 00:00: (three) [place] 00 times Medical daily. To Branch open wounds triamcinolo 2-0 Yes [id number] Apply to [facility] ne 8-31 area(s) 2 ity of acetonide 00:00: (two) [place] 0.1 % cream 00 times Medical daily. To Branch bumps mupirocin 2 2021-0 Yes [id number] Apply to [facility] % ointment 8-31 area(s) 3 ity of 00:00: (three) [place] 00 times Medical daily. To Branch open wounds triamcinolo 2-0 Yes [id number] Apply to [facility] ne 8-31 area(s) 2 ity of acetonide 00:00: (two) [place] 0.1 % cream 00 times Medical daily. To Branch bumps mupirocin 2 2-0 Yes [id number] Apply to [facility] % ointment 8-31 area(s) 3 ity of 00:00: (three) [place] 00 times Medical daily. To Branch open wounds triamcinolo 2-0 Yes [id number] Apply to [facility] ne 8-31 area(s) 2 ity of acetonide 00:00: (two) [place] 0.1 % cream 00 times Medical daily. To Branch bumps mupirocin 2 2-0 Yes [id number] Apply to [facility] % ointment 8-31 area(s) 3 ity of 00:00: (three) [place] 00 times Medical daily. To Branch open wounds triamcinolo 2-0 Yes [id number] Apply to [facility] ne 8-31 area(s) 2 ity of acetonide 00:00: (two) [place] 0.1 % cream 00 times Medical daily. To Branch bumps mupirocin 2 2-0 Yes [id number] Apply to [facility] % ointment 8-31 area(s) 3 ity of 00:00: (three) [place] 00 times Medical daily. To Branch open wounds triamcinolo 2022-0 Yes [id number] Apply to [facility] ne 8-31 area(s) 2 ity of acetonide 00:00: (two) [place] 0.1 % cream 00 times Medical daily. To Branch bumps mupirocin 2 2021-0 Yes [id number] Apply to [facility] % ointment 8-31 area(s) 3 ity of 00:00: (three) [place] 00 times Medical daily. To Branch open wounds triamcinolo 2-0 Yes [id number] Apply to [facility] ne 8-31 area(s) 2 ity of acetonide 00:00: (two) [place] 0.1 % cream 00 times Medical daily. To Branch bumps mupirocin 2 2021-0 Yes [id number] Apply to [facility] % ointment 8-31 area(s) 3 ity of 00:00: (three) [place] 00 times Medical daily. To Branch open wounds triamcinolo 2-0 Yes [id number] Apply to [facility] ne 8-31 area(s) 2 ity of acetonide 00:00: (two) [place] 0.1 % cream 00 times Medical daily. To Branch bumps mupirocin 2 2021-0 Yes [id number] Apply to [facility] % ointment 8-31 area(s) 3 ity of 00:00: (three) [place] 00 times Medical daily. To Branch open wounds triamcinolo 2-0 Yes [id number] Apply to [facility] ne 8-31 area(s) 2 ity of acetonide 00:00: (two) [place] 0.1 % cream 00 times Medical daily. To Branch bumps mupirocin 2 2-0 Yes [id number] Apply to [facility] % ointment 8-31 area(s) 3 ity of 00:00: (three) [place] 00 times Medical daily. To Branch open wounds triamcinolo 2-0 Yes [id number] Apply to [facility] ne 8-31 area(s) 2 ity of acetonide 00:00: (two) [place] 0.1 % cream 00 times Medical daily. To Branch bumps mupirocin 2 2-0 Yes [id number] Apply to [facility] % ointment 8-31 area(s) 3 ity of 00:00: (three) [place] 00 times Medical daily. To Branch open wounds triamcinolo 2-0 Yes [id number] Apply to [facility] ne 8-31 area(s) 2 ity of acetonide 00:00: (two) [place] 0.1 % cream 00 times Medical daily. To Branch bumps mupirocin 2 2021-0 Yes [id number] Apply to [facility] % ointment 8-31 area(s) 3 ity of 00:00: (three) [place] 00 times Medical daily. To Branch open wounds triamcinolo 2-0 Yes [id number] Apply to [facility] ne 8-31 area(s) 2 ity of acetonide 00:00: (two) [place] 0.1 % cream 00 times Medical daily. To Branch bumps mupirocin 2 2021-0 Yes [id number] Apply to [facility] % ointment 8-31 area(s) 3 ity of 00:00: (three) [place] 00 times Medical daily. To Branch open wounds triamcinolo 2-0 Yes [id number] Apply to [facility] ne 8-31 area(s) 2 ity of acetonide 00:00: (two) [place] 0.1 % cream 00 times Medical daily. To Branch bumps mupirocin 2 2-0 Yes [id number] Apply to [facility] % ointment 8-31 area(s) 3 ity of 00:00: (three) [place] 00 times Medical daily. To Branch open wounds triamcinolo 2-0 Yes [id number] Apply to [facility] ne 8-31 area(s) 2 ity of acetonide 00:00: (two) [place] 0.1 % cream 00 times Medical daily. To Branch bumps mupirocin 2 2-0 Yes [id number] Apply to [facility] % ointment 8-31 area(s) 3 ity of 00:00: (three) [place] 00 times Medical daily. To Branch open wounds triamcinolo 2-0 Yes [id number] Apply to [facility] ne 8-31 area(s) 2 ity of acetonide 00:00: (two) [place] 0.1 % cream 00 times Medical daily. To Branch bumps mupirocin 2 2021-0 Yes [id number] Apply to [facility] % ointment 8-31 area(s) 3 ity of 00:00: (three) [place] 00 times Medical daily. To Branch open wounds triamcinolo 2-0 Yes [id number] Apply to [facility] ne 8-31 area(s) 2 ity of acetonide 00:00: (two) [place] 0.1 % cream 00 times Medical daily. To Branch bumps mupirocin 2 2021-0 Yes [id number] Apply to [facility] % ointment 8-31 area(s) 3 ity of 00:00: (three) [place] 00 times Medical daily. To Branch open wounds triamcinolo 2021-0 Yes [id number] Apply to [facility] ne 8-31 area(s) 2 ity of acetonide 00:00: (two) [place] 0.1 % cream 00 times Medical daily. To Branch bumps mupirocin 2 2021-0 Yes [id number] Apply to [facility] % ointment 8-31 area(s) 3 ity of 00:00: (three) [place] 00 times Medical daily. To Branch open wounds triamcinolo 2-0 Yes [id number] Apply to [facility] ne 8-31 area(s) 2 ity of acetonide 00:00: (two) [place] 0.1 % cream 00 times Medical daily. To Branch bumps mupirocin 2 2021-0 Yes [id number] Apply to [facility] % ointment 8-31 area(s) 3 ity of 00:00: (three) [place] 00 times Medical daily. To Branch open wounds triamcinolo 2-0 Yes [id number] Apply to [facility] ne 8-31 area(s) 2 ity of acetonide 00:00: (two) [place] 0.1 % cream 00 times Medical daily. To Branch bumps mupirocin 2 2-0 Yes [id number] Apply to [facility] % ointment 8-31 area(s) 3 ity of 00:00: (three) [place] 00 times Medical daily. To Branch open wounds triamcinolo 2-0 Yes [id number] Apply to [facility] ne 8-31 area(s) 2 ity of acetonide 00:00: (two) [place] 0.1 % cream 00 times Medical daily. To Branch bumps mupirocin 2 2-0 Yes [id number] Apply to [facility] % ointment 8-31 area(s) 3 ity of 00:00: (three) [place] 00 times Medical daily. To Branch open wounds triamcinolo 2-0 Yes [id number] Apply to [facility] ne 8-31 area(s) 2 ity of acetonide 00:00: (two) [place] 0.1 % cream 00 times Medical daily. To Branch bumps mupirocin 2 2021-0 Yes [id number] Apply to [facility] % ointment 8-31 area(s) 3 ity of 00:00: (three) [place] 00 times Medical daily. To Branch open wounds triamcinolo 2-0 Yes [id number] Apply to [facility] ne 8-31 area(s) 2 ity of acetonide 00:00: (two) [place] 0.1 % cream 00 times Medical daily. To Branch bumps mupirocin 2 2021-0 Yes [id number] Apply to [facility] % ointment 8-31 area(s) 3 ity of 00:00: (three) [place] 00 times Medical daily. To Branch open wounds triamcinolo 2-0 Yes [id number] Apply to [facility] ne 8-31 area(s) 2 ity of acetonide 00:00: (two) [place] 0.1 % cream 00 times Medical daily. To Branch bumps mupirocin 2 2021-0 Yes [id number] Apply to [facility] % ointment 8-31 area(s) 3 ity of 00:00: (three) [place] 00 times Medical daily. To Branch open wounds triamcinolo 2-0 Yes [id number] Apply to [facility] ne 8-31 area(s) 2 ity of acetonide 00:00: (two) [place] 0.1 % cream 00 times Medical daily. To Branch bumps mupirocin 2 2-0 Yes [id number] Apply to [facility] % ointment 8-31 area(s) 3 ity of 00:00: (three) [place] 00 times Medical daily. To Branch open wounds triamcinolo 2-0 Yes [id number] Apply to [facility] ne 8-31 area(s) 2 ity of acetonide 00:00: (two) [place] 0.1 % cream 00 times Medical daily. To Branch bumps mupirocin 2 2-0 Yes [id number] Apply to [facility] % ointment 8-31 area(s) 3 ity of 00:00: (three) [place] 00 times Medical daily. To Branch open wounds triamcinolo 2-0 Yes [id number] Apply to [facility] ne 8-31 area(s) 2 ity of acetonide 00:00: (two) [place] 0.1 % cream 00 times Medical daily. To Branch bumps mupirocin 2 2021-0 Yes [id number] Apply to [facility] % ointment 8-31 area(s) 3 ity of 00:00: (three) [place] 00 times Medical daily. To Branch open wounds triamcinolo 2-0 Yes [id number] Apply to [facility] ne 8-31 area(s) 2 ity of acetonide 00:00: (two) [place] 0.1 % cream 00 times Medical daily. To Branch bumps mupirocin 2 2021-0 Yes [id number] Apply to [facility] % ointment 8-31 area(s) 3 ity of 00:00: (three) [place] 00 times Medical daily. To Branch open wounds triamcinolo 2-0 Yes [id number] Apply to [facility] ne 8-31 area(s) 2 ity of acetonide 00:00: (two) [place] 0.1 % cream 00 times Medical daily. To Branch bumps mupirocin 2 2-0 Yes [id number] Apply to [facility] % ointment 8-31 area(s) 3 ity of 00:00: (three) [place] 00 times Medical daily. To Branch open wounds triamcinolo 2-0 Yes [id number] Apply to [facility] ne 8-31 area(s) 2 ity of acetonide 00:00: (two) [place] 0.1 % cream 00 times Medical daily. To Branch bumps mupirocin 2 2-0 Yes [id number] Apply to [facility] % ointment 8-31 area(s) 3 ity of 00:00: (three) [place] 00 times Medical daily. To Branch open wounds triamcinolo 2-0 Yes [id number] Apply to [facility] ne 8-31 area(s) 2 ity of acetonide 00:00: (two) [place] 0.1 % cream 00 times Medical daily. To Branch bumps mupirocin 2 2021-0 Yes [id number] Apply to [facility] % ointment 8-31 area(s) 3 ity of 00:00: (three) [place] 00 times Medical daily. To Branch open wounds triamcinolo 2-0 Yes [id number] Apply to [facility] ne 8-31 area(s) 2 ity of acetonide 00:00: (two) [place] 0.1 % cream 00 times Medical daily. To Branch bumps mupirocin 2 2021-0 Yes [id number] Apply to [facility] % ointment 8-31 area(s) 3 ity of 00:00: (three) [place] 00 times Medical daily. To Branch open wounds triamcinolo 2021-0 Yes [id number] Apply to [facility] ne 8-31 area(s) 2 ity of acetonide 00:00: (two) [place] 0.1 % cream 00 times Medical daily. To Branch bumps mupirocin 2 2021-0 Yes [id number] Apply to [facility] % ointment 8-31 area(s) 3 ity of 00:00: (three) [place] 00 times Medical daily. To Branch open wounds triamcinolo 2-0 Yes [id number] Apply to [facility] ne 8-31 area(s) 2 ity of acetonide 00:00: (two) [place] 0.1 % cream 00 times Medical daily. To Branch bumps mupirocin 2 2-0 Yes [id number] Apply to [facility] % ointment 8-31 area(s) 3 ity of 00:00: (three) [place] 00 times Medical daily. To Branch open wounds triamcinolo 2-0 Yes [id number] Apply to [facility] ne 8-31 area(s) 2 ity of acetonide 00:00: (two) [place] 0.1 % cream 00 times Medical daily. To Branch bumps mupirocin 2 2-0 Yes [id number] Apply to [facility] % ointment 8-31 area(s) 3 ity of 00:00: (three) [place] 00 times Medical daily. To Branch open wounds triamcinolo 2-0 Yes [id number] Apply to [facility] ne 8-31 area(s) 2 ity of acetonide 00:00: (two) [place] 0.1 % cream 00 times Medical daily. To Branch bumps mupirocin 2 2021-0 Yes [id number] Apply to [facility] % ointment 8-31 area(s) 3 ity of 00:00: (three) [place] 00 times Medical daily. To Branch open wounds triamcinolo 2-0 Yes [id number] Apply to [facility] ne 8-31 area(s) 2 ity of acetonide 00:00: (two) [place] 0.1 % cream 00 times Medical daily. To Branch bumps mupirocin 2 2021-0 Yes [id number] Apply to [facility] % ointment 8-31 area(s) 3 ity of 00:00: (three) [place] 00 times Medical daily. To Branch open wounds triamcinolo 2021-0 Yes [id number] Apply to [facility] ne 8-31 area(s) 2 ity of acetonide 00:00: (two) [place] 0.1 % cream 00 times Medical daily. To Branch bumps mupirocin 2 2021-0 Yes [id number] Apply to [facility] % ointment 8-31 area(s) 3 ity of 00:00: (three) [place] 00 times Medical daily. To Branch open wounds triamcinolo 2-0 Yes [id number] Apply to [facility] ne 8-31 area(s) 2 ity of acetonide 00:00: (two) [place] 0.1 % cream 00 times Medical daily. To Branch bumps mupirocin 2 2-0 Yes [id number] Apply to [facility] % ointment 8-31 area(s) 3 ity of 00:00: (three) [place] 00 times Medical daily. To Branch open wounds triamcinolo 2-0 Yes [id number] Apply to [facility] ne 8-31 area(s) 2 ity of acetonide 00:00: (two) [place] 0.1 % cream 00 times Medical daily. To Branch bumps mupirocin 2 2-0 Yes [id number] Apply to [facility] % ointment 8-31 area(s) 3 ity of 00:00: (three) [place] 00 times Medical daily. To Branch open wounds triamcinolo 2-0 Yes [id number] Apply to [facility] ne 8-31 area(s) 2 ity of acetonide 00:00: (two) [place] 0.1 % cream 00 times Medical daily. To Branch bumps mupirocin 2 2021-0 Yes [id number] Apply to [facility] % ointment 8-31 area(s) 3 ity of 00:00: (three) [place] 00 times Medical daily. To Branch open wounds triamcinolo 2-0 Yes [id number] Apply to [facility] ne 8-31 area(s) 2 ity of acetonide 00:00: (two) [place] 0.1 % cream 00 times Medical daily. To Branch bumps mupirocin 2 2021-0 Yes [id number] Apply to [facility] % ointment 8-31 area(s) 3 ity of 00:00: (three) [place] 00 times Medical daily. To Branch open wounds triamcinolo 2021-0 Yes [id number] Apply to [facility] ne 8-31 area(s) 2 ity of acetonide 00:00: (two) [place] 0.1 % cream 00 times Medical daily. To Branch bumps mupirocin 2 2021-0 Yes [id number] Apply to [facility] % ointment 8-31 area(s) 3 ity of 00:00: (three) [place] 00 times Medical daily. To Branch open wounds triamcinolo 2-0 Yes [id number] Apply to [facility] ne 8-31 area(s) 2 ity of acetonide 00:00: (two) [place] 0.1 % cream 00 times Medical daily. To Branch bumps mupirocin 2 2-0 Yes [id number] Apply to [facility] % ointment 8-31 area(s) 3 ity of 00:00: (three) [place] 00 times Medical daily. To Branch open wounds triamcinolo 2-0 Yes [id number] Apply to [facility] ne 8-31 area(s) 2 ity of acetonide 00:00: (two) [place] 0.1 % cream 00 times Medical daily. To Branch bumps mupirocin 2 2-0 Yes [id number] Apply to [facility] % ointment 8-31 area(s) 3 ity of 00:00: (three) [place] 00 times Medical daily. To Branch open wounds triamcinolo 2-0 Yes [id number] Apply to [facility] ne 8-31 area(s) 2 ity of acetonide 00:00: (two) [place] 0.1 % cream 00 times Medical daily. To Branch bumps mupirocin 2 2021-0 Yes [id number] Apply to [facility] % ointment 8-31 area(s) 3 ity of 00:00: (three) [place] 00 times Medical daily. To Branch open wounds triamcinolo 2-0 Yes [id number] Apply to [facility] ne 8-31 area(s) 2 ity of acetonide 00:00: (two) [place] 0.1 % cream 00 times Medical daily. To Branch bumps mupirocin 2 2021-0 Yes [id number] Apply to [facility] % ointment 8-31 area(s) 3 ity of 00:00: (three) [place] 00 times Medical daily. To Branch open wounds triamcinolo 2-0 Yes [id number] Apply to [facility] ne 8-31 area(s) 2 ity of acetonide 00:00: (two) [place] 0.1 % cream 00 times Medical daily. To Branch bumps mupirocin 2 2021-0 Yes [id number] Apply to [facility] % ointment 8-31 area(s) 3 ity of 00:00: (three) [place] 00 times Medical daily. To Branch open wounds triamcinolo 2-0 Yes [id number] Apply to [facility] ne 8-31 area(s) 2 ity of acetonide 00:00: (two) [place] 0.1 % cream 00 times Medical daily. To Branch bumps mupirocin 2 2-0 Yes [id number] Apply to [facility] % ointment 8-31 area(s) 3 ity of 00:00: (three) [place] 00 times Medical daily. To Branch open wounds triamcinolo 2-0 Yes [id number] Apply to [facility] ne 8-31 area(s) 2 ity of acetonide 00:00: (two) [place] 0.1 % cream 00 times Medical daily. To Branch bumps mupirocin 2 Yes [id number] Apply to [facility] % ointment 11-26 area(s) 3 ity of 00:00: (three) [place] 00 times Medical daily. To Branch open wounds triamcinolo Yes [id number] Apply to [facility] ne 11-26 area(s) 2 ity of acetonide 00:00: (two) [place] 0.1 % cream 00 times Medical daily. To Branch bumps mupirocin 2 Yes [id number] Apply to [facility] % ointment 11-26 area(s) 3 ity of 00:00: (three) [place] 00 times Medical daily. To Branch open wounds triamcinolo 2021-2022- No [id number] Apply to [facility] ne 11-26 area(s) 2 ity of acetonide 00:00: 00:00 (two) [place] 0.1 % cream 00 :00 times Medical daily. To Branch bumps mupirocin 2 2022- No [id number] Apply to [facility] % ointment 11-26 area(s) 3 ity of 00:00: 00:00 (three) [place] 00 :00 times Medical daily. To Branch open wounds triamcinolo 2022- No [id number] Apply to [facility] 11-26 area(s) 2 ity of acetonide 00:00: 00:00 (two) [place] 0.1 % cream 00 :00 times Medical daily. To Branch bumps mupirocin 2 2022- No [id number] Apply to [facility] % ointment 11-26 area(s) 3 ity of 00:00: 00:00 (three) [place] 00 :00 times Medical daily. To Branch open wounds dextroamphe 2021- No [id number] 20mg Take 1 [facility] tamine-amph 11-26 tablet by it y of etamine 00:00: 00:00 mouth in [place] (ADDERALL) 00 :00 the Medical 20 mg morning Branch tablet and 1 tablet at noon and 1 tablet in the evening. amoxicillin Yes [id number] 1{tbl} Take 1 [facility] -clavulanat 8-30 tablet by ity of e 875-125 00:00: mouth [place] mg per 00 every 12 Medical tablet (twelve) Branch hours. amoxicillin 2022-0 Yes [id number] 1{tbl} Take 1 [facility] -clavulanat 8-30 tablet by ity of e 875-125 00:00: mouth [place] mg per 00 every 12 Medical tablet (twelve) Branch hours. amoxicillin 2022-0 Yes [id number] 1{tbl} Take 1 [facility] -clavulanat 8-30 tablet by ity of e 875-125 00:00: mouth [place] mg per 00 every 12 Medical tablet (twelve) Branch hours. amoxicillin 202-0 Yes [id number] 1{tbl} Take 1 [facility] -clavulanat 8-30 tablet by ity of e 875-125 00:00: mouth [place] mg per 00 every 12 Medical tablet (twelve) Branch hours. amoxicillin 2021-0 Yes [id number] 1{tbl} Take 1 [facility] -clavulanat 8-30 tablet by ity of e 875-125 00:00: mouth [place] mg per 00 every 12 Medical tablet (twelve) Branch hours. amoxicillin 2021-0 Yes [id number] 1{tbl} Take 1 [facility] -clavulanat 8-30 tablet by ity of e 875-125 00:00: mouth [place] mg per 00 every 12 Medical tablet (twelve) Branch hours. amoxicillin 2022-0 Yes [id number] 1{tbl} Take 1 [facility] -clavulanat 8-30 tablet by ity of e 875-125 00:00: mouth [place] mg per 00 every 12 Medical tablet (twelve) Branch hours. amoxicillin 2022-0 Yes [id number] 1{tbl} Take 1 [facility] -clavulanat 8-30 tablet by ity of e 875-125 00:00: mouth [place] mg per 00 every 12 Medical tablet (twelve) Branch hours. amoxicillin 2022-0 Yes [id number] 1{tbl} Take 1 [facility] -clavulanat 8-30 tablet by ity of e 875-125 00:00: mouth [place] mg per 00 every 12 Medical tablet (twelve) Branch hours. amoxicillin 2022-0 Yes [id number] 1{tbl} Take 1 [facility] -clavulanat 8-30 tablet by ity of e 875-125 00:00: mouth [place] mg per 00 every 12 Medical tablet (twelve) Branch hours. amoxicillin 2021-0 Yes [id number] 1{tbl} Take 1 [facility] -clavulanat 8-30 tablet by ity of e 875-125 00:00: mouth [place] mg per 00 every 12 Medical tablet (twelve) Branch hours. amoxicillin 2021-0 Yes [id number] 1{tbl} Take 1 [facility] -clavulanat 8-30 tablet by ity of e 875-125 00:00: mouth [place] mg per 00 every 12 Medical tablet (twelve) Branch hours. amoxicillin 2021-0 Yes [id number] 1{tbl} Take 1 [facility] -clavulanat 8-30 tablet by ity of e 875-125 00:00: mouth [place] mg per 00 every 12 Medical tablet (twelve) Branch hours. amoxicillin 2021-0 Yes [id number] 1{tbl} Take 1 [facility] -clavulanat 8-30 tablet by ity of e 875-125 00:00: mouth [place] mg per 00 every 12 Medical tablet (twelve) Branch hours. amoxicillin 2021-0 Yes [id number] 1{tbl} Take 1 [facility] -clavulanat 8-30 tablet by ity of e 875-125 00:00: mouth [place] mg per 00 every 12 Medical tablet (twelve) Branch hours. amoxicillin 2021-0 Yes [id number] 1{tbl} Take 1 [facility] -clavulanat 8-30 tablet by ity of e 875-125 00:00: mouth [place] mg per 00 every 12 Medical tablet (twelve) Branch hours. amoxicillin 2021-0 Yes [id number] 1{tbl} Take 1 [facility] -clavulanat 8-30 tablet by ity of e 875-125 00:00: mouth [place] mg per 00 every 12 Medical tablet (twelve) Branch hours. amoxicillin 2021-0 Yes [id number] 1{tbl} Take 1 [facility] -clavulanat 8-30 tablet by ity of e 875-125 00:00: mouth [place] mg per 00 every 12 Medical tablet (twelve) Branch hours. amoxicillin 2021-0 2021- No [id number] 1{tbl} Take 1 [facility] -clavulanat 8-30 - tablet by it y of e 875-125 00:00: 00:00 mouth [place] mg per 00 :00 every 12 Medical tablet (twelve) Branch hours. amoxicillin 2- No [id number] 1{tbl} Take 1 [facility] -clavulanat 8-30 11- tablet by it y of e 875-125 00:00: 00:00 mouth [place] mg per 00 :00 every 12 Medical tablet (twelve) Branch hours. permethrin Yes [id number] Apply to [facility] (ELIMITE) 5 8-23 skin and ity of % cream 00:00: leave on [place] 00 for 8 - 10 Medical hours then Branch repeat in a week permethrin 2021- No [id number] Apply to [facility] (ELIMITE) 5 8-23 09-08 skin and ity of % cream 00:00: 00:00 leave on [place] 00 :00 for 8 - 10 Medical hours then Branch repeat in a week permethrin 2021- No [id number] Apply to [facility] (ELIMITE) 5 8- 09-08 skin and ity of % cream 00:00: 00:00 leave on [place] 00 :00 for 8 - 10 Medical hours then Branch repeat in a week TRAZODONE Yes [id number] TAKE 1 [facility] vers 50 mg 8-08 TABLET BY ity of tablet 00:00: MOUTH 00 EVERYDAY Medical AT BEDTIME Branch TRAZODONE 2021-0 Yes [id number] TAKE 1 [facility] vers 50 mg 8-08 TABLET BY ity of tablet 00:00: MOUTH 00 EVERYDAY Medical AT BEDTIME Branch TRAZODONE 2021-0 Yes [id number] TAKE 1 [facility] vers 50 mg 8-08 TABLET BY [facility] tablet 00:00: MOUTH [place] 00 EVERYDAY Medical AT BEDTIME Branch TRAZODONE 2021-0 Yes [id number] TAKE 1 [facility] vers 50 mg 8-08 TABLET BY [facility] tablet 00:00: MOUTH [place] 00 EVERYDAY Medical AT BEDTIME Branch TRAZODONE 2021-0 Yes [id number] TAKE 1 [facility] vers 50 mg 8-08 TABLET BY [facility] tablet 00:00: MOUTH [place] 00 EVERYDAY Medical AT BEDTIME Branch TRAZODONE 2021-0 Yes [id number] TAKE 1 [facility] vers 50 mg 8-08 TABLET BY [facility] of tablet 00:00: MOUTH [place] 00 EVERYDAY Medical AT BEDTIME Branch TRAZODONE 2-0 Yes [id number] TAKE 1 [facility] vers 50 mg 8-08 TABLET BY [facility] of tablet 00:00: MOUTH EVERYDAY Medical AT BEDTIME Branch TRAZODONE 2-0 Yes [id number] TAKE 1 [facility] 50 mg 8-08 TABLET BY [facility] tablet 00:00: MOUTH EVERYDAY Medical AT BEDTIME Branch TRAZODONE 2-0 Yes [id number] TAKE 1 [facility] 50 mg 8-08 TABLET BY [facility] tablet 00:00: MOUTH EVERYDAY Medical AT BEDTIME Branch TRAZODONE 2-0 Yes [id number] TAKE 1 [facility] 50 mg 8-08 TABLET BY [facility] tablet 00:00: MOUTH EVERYDAY Medical AT BEDTIME Branch TRAZODONE 2021-0 Yes [id number] TAKE 1 [facility] 50 mg 8-08 TABLET BY [facility] tablet 00:00: MOUTH EVERYDAY Medical AT BEDTIME Branch TRAZODONE 2-0 Yes [id number] TAKE 1 [facility] 50 mg 8-08 TABLET BY [facility] tablet 00:00: MOUTH EVERYDAY Medical AT BEDTIME Branch TRAZODONE 2-0 Yes [id number] TAKE 1 [facility] 50 mg 8-08 TABLET BY [facility] tablet 00:00: MOUTH EVERYDAY Medical AT BEDTIME Branch TRAZODONE 2-0 Yes [id number] TAKE 1 [facility] 50 mg 8-08 TABLET BY [facility] tablet 00:00: EVERYDAY Medical AT BEDTIME Branch TRAZODONE 2-0 Yes [id number] TAKE 1 [facility] 50 mg 8-08 TABLET BY [facility] tablet 00:00: MOUTH EVERYDAY Medical AT BEDTIME Branch TRAZODONE 2-0 Yes [id number] TAKE 1 [facility] 50 mg 8-08 TABLET BY [facility] tablet 00:00: MOUTH EVERYDAY Medical AT BEDTIME Branch TRAZODONE 2-0 Yes [id number] TAKE 1 [facility] 50 mg 8-08 TABLET BY [facility] tablet 00:00: MOUTH EVERYDAY Medical AT BEDTIME Branch TRAZODONE 2-0 Yes [id number] TAKE 1 [facility] 50 mg 8-08 TABLET BY [facility] tablet 00:00: MOUTH EVERYDAY Medical AT BEDTIME Branch TRAZODONE 2-0 Yes [id number] TAKE 1 [facility] 50 mg 8-08 TABLET BY [facility] tablet 00:00: MOUTH 00 EVERYDAY Medical AT BEDTIME Branch TRAZODONE 2022-0 Yes [id number] TAKE 1 [facility] 50 mg 8-08 TABLET BY [facility] tablet 00:00: MOUTH EVERYDAY Medical AT BEDTIME Branch TRAZODONE 2-0 Yes [id number] TAKE 1 [facility] 50 mg 8-08 TABLET BY [facility] tablet 00:00: MOUTH EVERYDAY Medical AT BEDTIME Branch TRAZODONE 2-0 Yes [id number] TAKE 1 [facility] 50 mg 8-08 TABLET BY [facility] tablet 00:00: MOUTH 00 EVERYDAY Medical AT BEDTIME Branch TRAZODONE 2-0 Yes [id number] TAKE 1 [facility] 50 mg 8-08 TABLET BY [facility] tablet 00:00: MOUTH EVERYDAY Medical AT BEDTIME Branch TRAZODONE 2-0 Yes [id number] TAKE 1 [facility] 50 mg 8-08 TABLET BY [facility] tablet 00:00: MOUTH EVERYDAY Medical AT BEDTIME Branch TRAZODONE 2-0 Yes [id number] TAKE 1 [facility] 50 mg 8-08 TABLET BY [facility] tablet 00:00: MOUTH EVERYDAY Medical AT BEDTIME Branch TRAZODONE 2-0 Yes [id number] TAKE 1 [facility] 50 mg 8-08 TABLET BY [facility] of tablet 00:00: MOUTH EVERYDAY Medical AT BEDTIME Branch TRAZODONE 2-0 Yes [id number] TAKE 1 [facility] 50 mg 8-08 TABLET BY [facility] tablet 00:00: MOUTH EVERYDAY Medical AT BEDTIME Branch TRAZODONE 2-0 Yes [id number] TAKE 1 [facility] 50 mg 8-08 TABLET BY [facility] tablet 00:00: MOUTH EVERYDAY Medical AT BEDTIME Branch TRAZODONE 2-0 Yes [id number] TAKE 1 [facility] 50 mg 8-08 TABLET BY [facility] tablet 00:00: MOUTH 00 EVERYDAY Medical AT BEDTIME Branch TRAZODONE 2-0 Yes [id number] TAKE 1 [facility] 50 mg 8-08 TABLET BY [facility] tablet 00:00: MOUTH 00 EVERYDAY Medical AT BEDTIME Branch TRAZODONE 2-0 Yes [id number] TAKE 1 [facility] 50 mg 8-08 TABLET BY [facility] tablet 00:00: MOUTH [place] 00 EVERYDAY Medical AT BEDTIME Branch TRAZODONE 2-0 Yes [id number] TAKE 1 [facility] vers 50 mg 8-08 TABLET BY [facility] tablet 00:00: MOUTH EVERYDAY Medical AT BEDTIME Branch TRAZODONE 2-0 Yes [id number] TAKE 1 [facility] 50 mg 8-08 TABLET BY [facility] tablet 00:00: MOUTH EVERYDAY Medical AT BEDTIME Branch TRAZODONE 2-0 Yes [id number] TAKE 1 [facility] 50 mg 8-08 TABLET BY [facility] tablet 00:00: MOUTH EVERYDAY Medical AT BEDTIME Branch TRAZODONE 2-0 Yes [id number] TAKE 1 [facility] 50 mg 8-08 TABLET BY [facility] tablet 00:00: MOUTH EVERYDAY Medical AT BEDTIME Branch TRAZODONE 2021-0 Yes [id number] TAKE 1 [facility] 50 mg 8-08 TABLET BY [facility] tablet 00:00: MOUTH EVERYDAY Medical AT BEDTIME Branch TRAZODONE 2-0 Yes [id number] TAKE 1 [facility] 50 mg 8-08 TABLET BY [facility] tablet 00:00: MOUTH EVERYDAY Medical AT BEDTIME Branch TRAZODONE 2-0 Yes [id number] TAKE 1 [facility] 50 mg 8-08 TABLET BY [facility] tablet 00:00: MOUTH EVERYDAY Medical AT BEDTIME Branch TRAZODONE 2-0 Yes [id number] TAKE 1 [facility] 50 mg 8-08 TABLET BY [facility] tablet 00:00: EVERYDAY Medical AT BEDTIME Branch TRAZODONE 2-0 Yes [id number] TAKE 1 [facility] 50 mg 8-08 TABLET BY [facility] tablet 00:00: MOUTH EVERYDAY Medical AT BEDTIME Branch TRAZODONE 2-0 Yes [id number] TAKE 1 [facility] 50 mg 8-08 TABLET BY [facility] tablet 00:00: MOUTH EVERYDAY Medical AT BEDTIME Branch TRAZODONE 2-0 Yes [id number] TAKE 1 [facility] 50 mg 8-08 TABLET BY [facility] tablet 00:00: MOUTH EVERYDAY Medical AT BEDTIME Branch TRAZODONE 2-0 Yes [id number] TAKE 1 [facility] 50 mg 8-08 TABLET BY [facility] tablet 00:00: MOUTH EVERYDAY Medical AT BEDTIME Branch TRAZODONE 2-0 Yes [id number] TAKE 1 [facility] 50 mg 8-08 TABLET BY [facility] tablet 00:00: MOUTH 00 EVERYDAY Medical AT BEDTIME Branch TRAZODONE 2022-0 Yes [id number] TAKE 1 [facility] 50 mg 8-08 TABLET BY [facility] tablet 00:00: MOUTH EVERYDAY Medical AT BEDTIME Branch TRAZODONE 2-0 Yes [id number] TAKE 1 [facility] 50 mg 8-08 TABLET BY [facility] tablet 00:00: MOUTH EVERYDAY Medical AT BEDTIME Branch TRAZODONE 2-0 Yes [id number] TAKE 1 [facility] 50 mg 8-08 TABLET BY [facility] tablet 00:00: MOUTH 00 EVERYDAY Medical AT BEDTIME Branch TRAZODONE 2-0 Yes [id number] TAKE 1 [facility] 50 mg 8-08 TABLET BY [facility] tablet 00:00: MOUTH EVERYDAY Medical AT BEDTIME Branch TRAZODONE 2-0 Yes [id number] TAKE 1 [facility] 50 mg 8-08 TABLET BY [facility] tablet 00:00: MOUTH EVERYDAY Medical AT BEDTIME Branch TRAZODONE 2-0 Yes [id number] TAKE 1 [facility] 50 mg 8-08 TABLET BY [facility] tablet 00:00: MOUTH EVERYDAY Medical AT BEDTIME Branch TRAZODONE 2-0 Yes [id number] TAKE 1 [facility] 50 mg 8-08 TABLET BY [facility] tablet 00:00: MOUTH EVERYDAY Medical AT BEDTIME Branch TRAZODONE 2-0 Yes [id number] TAKE 1 [facility] 50 mg 8-08 TABLET BY [facility] tablet 00:00: MOUTH EVERYDAY Medical AT BEDTIME Branch TRAZODONE 2-0 Yes [id number] TAKE 1 [facility] 50 mg 8-08 TABLET BY [facility] tablet 00:00: MOUTH EVERYDAY Medical AT BEDTIME Branch TRAZODONE 2-0 Yes [id number] TAKE 1 [facility] 50 mg 8-08 TABLET BY [facility] tablet 00:00: MOUTH 00 EVERYDAY Medical AT BEDTIME Branch TRAZODONE 2-0 Yes [id number] TAKE 1 [facility] 50 mg 8-08 TABLET BY [facility] tablet 00:00: MOUTH 00 EVERYDAY Medical AT BEDTIME Branch TRAZODONE 2-0 Yes [id number] TAKE 1 [facility] 50 mg 8-08 TABLET BY [facility] tablet 00:00: MOUTH [place] 00 EVERYDAY Medical AT BEDTIME Branch TRAZODONE 2-0 Yes [id number] TAKE 1 [facility] 50 mg 8-08 TABLET BY [facility] tablet 00:00: MOUTH EVERYDAY Medical AT BEDTIME Branch TRAZODONE 2-0 Yes [id number] TAKE 1 [facility] 50 mg 8-08 TABLET BY [facility] tablet 00:00: MOUTH EVERYDAY Medical AT BEDTIME Branch TRAZODONE 2-0 Yes [id number] TAKE 1 [facility] 50 mg 8-08 TABLET BY [facility] tablet 00:00: MOUTH EVERYDAY Medical AT BEDTIME Branch TRAZODONE 2-0 Yes [id number] TAKE 1 [facility] 50 mg 8-08 TABLET BY [facility] tablet 00:00: MOUTH EVERYDAY Medical AT BEDTIME Branch TRAZODONE 2021-0 Yes [id number] TAKE 1 [facility] 50 mg 8-08 TABLET BY [facility] tablet 00:00: MOUTH EVERYDAY Medical AT BEDTIME Branch TRAZODONE 2-0 Yes [id number] TAKE 1 [facility] 50 mg 8-08 TABLET BY [facility] tablet 00:00: MOUTH EVERYDAY Medical AT BEDTIME Branch TRAZODONE 2-0 Yes [id number] TAKE 1 [facility] 50 mg 8-08 TABLET BY [facility] tablet 00:00: MOUTH EVERYDAY Medical AT BEDTIME Branch TRAZODONE 2-0 Yes [id number] TAKE 1 [facility] 50 mg 8-08 TABLET BY [facility] of tablet 00:00: EVERYDAY Medical AT BEDTIME Branch TRAZODONE 2-0 Yes [id number] TAKE 1 [facility] 50 mg 8-08 TABLET BY [facility] tablet 00:00: MOUTH EVERYDAY Medical AT BEDTIME Branch TRAZODONE 2-0 Yes [id number] TAKE 1 [facility] 50 mg 8-08 TABLET BY [facility] of tablet 00:00: MOUTH EVERYDAY Medical AT BEDTIME Branch TRAZODONE 2-0 Yes [id number] TAKE 1 [facility] 50 mg 8-08 TABLET BY [facility] of tablet 00:00: MOUTH EVERYDAY Medical AT BEDTIME Branch TRAZODONE 2-0 Yes [id number] TAKE 1 [facility] 50 mg 8-08 TABLET BY [facility] of tablet 00:00: MOUTH EVERYDAY Medical AT BEDTIME Branch TRAZODONE 2-0 Yes [id number] TAKE 1 [facility] 50 mg 8-08 TABLET BY [facility] of tablet 00:00: MOUTH 00 EVERYDAY Medical AT BEDTIME Branch TRAZODONE 2022-0 Yes [id number] TAKE 1 [facility] 50 mg 8-08 TABLET BY [facility] of tablet 00:00: MOUTH EVERYDAY Medical AT BEDTIME Branch TRAZODONE 2-0 Yes [id number] TAKE 1 [facility] 50 mg 8-08 TABLET BY [facility] of tablet 00:00: MOUTH EVERYDAY Medical AT BEDTIME Branch TRAZODONE 2-0 Yes [id number] TAKE 1 [facility] 50 mg 8-08 TABLET BY [facility] of tablet 00:00: MOUTH 00 EVERYDAY Medical AT BEDTIME Branch TRAZODONE 2-0 Yes [id number] TAKE 1 [facility] 50 mg 8-08 TABLET BY [facility] of tablet 00:00: MOUTH EVERYDAY Medical AT BEDTIME Branch TRAZODONE 2-0 Yes [id number] TAKE 1 [facility] 50 mg 8-08 TABLET BY [facility] of tablet 00:00: MOUTH EVERYDAY Medical AT BEDTIME Branch TRAZODONE 2-0 Yes [id number] TAKE 1 [facility] 50 mg 8-08 TABLET BY [facility] of tablet 00:00: MOUTH EVERYDAY Medical AT BEDTIME Branch TRAZODONE 2-0 Yes [id number] TAKE 1 [facility] 50 mg 8-08 TABLET BY [facility] of tablet 00:00: MOUTH EVERYDAY Medical AT BEDTIME Branch TRAZODONE 2-0 Yes [id number] TAKE 1 [facility] 50 mg 8-08 TABLET BY [facility] of tablet 00:00: MOUTH EVERYDAY Medical AT BEDTIME Branch TRAZODONE 2-0 Yes [id number] TAKE 1 [facility] 50 mg 8-08 TABLET BY [facility] of tablet 00:00: MOUTH EVERYDAY Medical AT BEDTIME Branch TRAZODONE 2-0 Yes [id number] TAKE 1 [facility] 50 mg 8-08 TABLET BY [facility] of tablet 00:00: MOUTH 00 EVERYDAY Medical AT BEDTIME Branch TRAZODONE 2-0 Yes [id number] TAKE 1 [facility] 50 mg 8-08 TABLET BY [facility] of tablet 00:00: MOUTH 00 EVERYDAY Medical AT BEDTIME Branch TRAZODONE 2-0 Yes [id number] TAKE 1 [facility] 50 mg 8-08 TABLET BY [facility] of tablet 00:00: MOUTH 00 EVERYDAY Medical AT BEDTIME Branch TRAZODONE 2022-0 Yes [id number] TAKE 1 [facility] 50 mg 8-08 TABLET BY [facility] of tablet 00:00: MOUTH [place] 00 EVERYDAY Medical AT BEDTIME Branch TRAZODONE 2022-0 Yes [id number] TAKE 1 [facility] 50 mg 8-08 TABLET BY [facility] of tablet 00:00: MOUTH [place] EVERYDAY Medical AT BEDTIME Branch TRAZODONE 2022-0 Yes [id number] TAKE 1 [facility] 50 mg 8-08 TABLET BY [facility] of tablet 00:00: MOUTH [place] EVERYDAY Medical AT BEDTIME Branch clonazePAM 2022-0 Yes [id number] 1mg Take 1 [facility] 1 mg tablet 7-13 tablet by ity of 00:00: mouth in [place] the Medical morning Branch and 1 tablet at noon and 1 tablet in the evening. clonazePAM 2022-0 Yes [id number] 1mg Take 1 [facility] 1 mg tablet 7-13 tablet by ity of 00:00: mouth in [place] the Medical morning Branch and 1 tablet at noon and 1 tablet in the evening. clonazePAM 2022-0 Yes [id number] 1mg Take 1 [facility] 1 mg tablet 7-13 tablet by ity of 00:00: mouth in [place] the Medical morning Branch and 1 tablet at noon and 1 tablet in the evening. clonazePAM 2022-0 Yes [id number] 1mg Take 1 [facility] 1 mg tablet 7-13 tablet by ity of 00:00: mouth in [place] the Medical morning Branch and 1 tablet at noon and 1 tablet in the evening. clonazePAM 2022-0 Yes [id number] 1mg Take 1 [facility] 1 mg tablet 7-13 tablet by ity of 00:00: mouth in [place] [address] the Medical morning Branch and 1 tablet at noon and 1 tablet in the evening. clonazePAM 2022-0 Yes [id number] 1mg Take 1 [facility] 1 mg tablet 7-13 tablet by ity of 00:00: mouth in [place] [address] the Medical morning Branch and 1 tablet at noon and 1 tablet in the evening. clonazePAM 2022-0 Yes [id number] 1mg Take 1 [facility] 1 mg tablet 7-13 tablet by ity of 00:00: mouth in [place] [address] the Medical morning Branch and 1 tablet at noon and 1 tablet in the evening. clonazePAM 2022-0 Yes [id number] 1mg Take 1 [facility] 1 mg tablet 7-13 tablet by ity of 00:00: mouth in [place] [address] the Medical morning Branch and 1 tablet at noon and 1 tablet in the evening. clonazePAM 2022-0 Yes [id number] 1mg Take 1 [facility] 1 mg tablet 7-13 tablet by ity of 00:00: mouth in [place] [address] the Medical morning Branch and 1 tablet at noon and 1 tablet in the evening. clonazePAM 2022-0 Yes [id number] 1mg Take 1 [facility] 1 mg tablet 7-13 tablet by ity of 00:00: mouth in [place] [address] the Medical morning Branch and 1 tablet at noon and 1 tablet in the evening. clonazePAM 2022-0 Yes [id number] 1mg Take 1 [facility] 1 mg tablet 7-13 tablet by ity of 00:00: mouth in [place] [address] the Medical morning Branch and 1 tablet at noon and 1 tablet in the evening. clonazePAM 2022-0 Yes [id number] 1mg Take 1 [facility] 1 mg tablet 7-13 tablet by ity of 00:00: mouth in [place] [address] the Medical morning [place] and 1 tablet at noon and 1 tablet in the evening. clonazePAM 2022-0 Yes [id number] 1mg Take 1 [facility] 1 mg tablet 7-13 tablet by ity of 00:00: mouth in [place] [address] the Medical morning [place] and 1 tablet at noon and 1 tablet in the evening. clonazePAM 2022-0 Yes [id number] 1mg Take 1 [facility] 1 mg tablet 7-13 tablet by ity of 00:00: mouth in [place] [address] the Medical morning [place] and 1 tablet at noon and 1 tablet in the evening. clonazePAM 2022-0 Yes [id number] 1mg Take 1 [facility] 1 mg tablet 7-13 tablet by ity of 00:00: mouth in [place] [address] the Medical morning Branch and 1 tablet at noon and 1 tablet in the evening. clonazePAM 2022-0 Yes [id number] 1mg Take 1 [facility] 1 mg tablet 7-13 tablet by ity of 00:00: mouth in [place] [address] the Medical morning [place] and 1 tablet at noon and 1 tablet in the evening. clonazePAM 2022-0 Yes [id number] 1mg Take 1 [facility] 1 mg tablet 7-13 tablet by ity of 00:00: mouth in [address] Medical morning [place] and 1 tablet at noon and 1 tablet in the evening. clonazePAM 2021-0 Yes [id number] 1mg Take 1 [facility] 1 mg tablet 10-08 tablet by ity of 00:00: mouth in [place] 00 the Medical morning Branch and 1 tablet at noon and 1 tablet in the evening. clonazePAM 2021-0 2021- No [id number] 1mg Take 1 [facility] 1 mg tablet 10-08 tablet by it y of 00:00: 00:00 mouth in [place] 00 :00 the Medical morning Branch and 1 tablet at noon and 1 tablet in the evening. clonazePAM 2021- No [id number] 1mg Take 1 [facility] 1 mg tablet 10-08 tablet by it y of 00:00: 00:00 mouth in [place] 00 :00 the Medical morning Branch and 1 tablet at noon and 1 tablet in the evening. ZONISAMIDE 2021-0 Yes [id number] TAKE 1 [facility] 100 mg 7-12 CAPSULE BY ity of capsule 00:00: MOUTH [place] 00 TWICE A Medical DAY Branch ZONISAMIDE 2021-0 Yes [id number] TAKE 1 [facility] 100 mg 7-12 CAPSULE BY ity of capsule 00:00: MOUTH [place] 00 TWICE A Medical DAY Branch ZONISAMIDE 2021-0 Yes [id number] TAKE 1 [facility] 100 mg 7-12 CAPSULE BY ity of capsule 00:00: MOUTH [place] 00 TWICE A Medical DAY Branch ZONISAMIDE 2021-0 Yes [id number] TAKE 1 [facility] 100 mg 7-12 CAPSULE BY ity of capsule 00:00: MOUTH [place] 00 TWICE A Medical DAY Branch ZONISAMIDE 2021-0 Yes [id number] TAKE 1 [facility] 100 mg 7-12 CAPSULE BY ity of capsule 00:00: MOUTH [place] 00 TWICE A Medical DAY Branch ZONISAMIDE 2021-0 Yes [id number] TAKE 1 [facility] 100 mg 7-12 CAPSULE BY ity of capsule 00:00: MOUTH [place] 00 TWICE A Medical DAY Branch ZONISAMIDE 2021-0 Yes [id number] TAKE 1 [facility] 100 mg 7-12 CAPSULE BY ity of capsule 00:00: MOUTH [place] 00 TWICE A Medical DAY Branch ZONISAMIDE 2021-0 Yes [id number] TAKE 1 [facility] 100 mg 7-12 CAPSULE BY ity of capsule 00:00: MOUTH [place] 00 TWICE A Medical DAY Branch ZONISAMIDE 2022-0 Yes [id number] TAKE 1 [facility] 100 mg 7-12 CAPSULE BY ity of capsule 00:00: MOUTH TWICE A Medical DAY Branch ZONISAMIDE 2021-0 Yes [id number] TAKE 1 [facility] 100 mg 7-12 CAPSULE BY ity of capsule 00:00: MOUTH TWICE A Medical DAY Branch ZONISAMIDE 2021-0 Yes [id number] TAKE 1 [facility] 100 mg 7-12 CAPSULE BY ity of capsule 00:00: MOUTH TWICE A Medical DAY Branch ZONISAMIDE 2021-0 Yes [id number] TAKE 1 [facility] 100 mg 7-12 CAPSULE BY ity of capsule 00:00: MOUTH TWICE A Medical DAY Branch ZONISAMIDE 2021-0 Yes [id number] TAKE 1 [facility] 100 mg 7-12 CAPSULE BY ity of capsule 00:00: MOUTH TWICE A Medical DAY Branch ZONISAMIDE 2021-0 Yes [id number] TAKE 1 [facility] 100 mg 7-12 CAPSULE BY ity of capsule 00:00: MOUTH TWICE A Medical DAY Branch ZONISAMIDE 2021-0 Yes [id number] TAKE 1 [facility] 100 mg 7-12 CAPSULE BY ity of capsule 00:00: MOUTH TWICE A Medical DAY Branch ZONISAMIDE 2021-0 Yes [id number] TAKE 1 [facility] 100 mg 7-12 CAPSULE BY ity of capsule 00:00: MOUTH TWICE A Medical DAY Branch ZONISAMIDE 2021-0 Yes [id number] TAKE 1 [facility] 100 mg 7-12 CAPSULE BY ity of capsule 00:00: MOUTH TWICE A Medical DAY Branch ZONISAMIDE 2021-0 Yes [id number] TAKE 1 [facility] 100 mg 7-12 CAPSULE BY ity of capsule 00:00: MOUTH 00 TWICE A Medical DAY Branch ZONISAMIDE 2021-0 Yes [id number] TAKE 1 [facility] 100 mg 7-12 CAPSULE BY ity of capsule 00:00: MOUTH TWICE A Medical DAY Branch ZONISAMIDE 2021-0 Yes [id number] TAKE 1 [facility] 100 mg 7-12 CAPSULE BY ity of capsule 00:00: MOUTH TWICE A Medical DAY Branch ZONISAMIDE 2021-0 Yes [id number] TAKE 1 [facility] 100 mg 7-12 CAPSULE BY ity of capsule 00:00: MOUTH 00 TWICE A Medical DAY Branch ZONISAMIDE 2021-0 Yes [id number] TAKE 1 [facility] 100 mg 7-12 CAPSULE BY ity of capsule 00:00: MOUTH [place] 00 TWICE A Medical DAY Branch ZONISAMIDE 2021-0 Yes [id number] TAKE 1 [facility] 100 mg 7-12 CAPSULE BY ity of capsule 00:00: MOUTH 00 TWICE A Medical DAY Branch ZONISAMIDE 2021-0 Yes [id number] TAKE 1 [facility] 100 mg 7-12 CAPSULE BY ity of capsule 00:00: MOUTH [place] 00 TWICE A Medical DAY Branch ZONISAMIDE 2021-0 Yes [id number] TAKE 1 [facility] 100 mg 7-12 CAPSULE BY ity of capsule 00:00: MOUTH 00 TWICE A Medical DAY Branch ZONISAMIDE 2021-0 Yes [id number] TAKE 1 [facility] 100 mg 7-12 CAPSULE BY ity of capsule 00:00: MOUTH 00 TWICE A Medical DAY Branch ZONISAMIDE 2021-0 Yes [id number] TAKE 1 [facility] 100 mg 7-12 CAPSULE BY ity of capsule 00:00: MOUTH 00 TWICE A Medical DAY Branch ZONISAMIDE 2021-0 Yes [id number] TAKE 1 [facility] 100 mg 7-12 CAPSULE BY ity of capsule 00:00: MOUTH 00 TWICE A Medical DAY Branch ZONISAMIDE 2021-0 Yes [id number] TAKE 1 [facility] 100 mg 7-12 CAPSULE BY ity of capsule 00:00: MOUTH 00 TWICE A Medical DAY Branch ZONISAMIDE 2021-0 Yes [id number] TAKE 1 [facility] 100 mg 7-12 CAPSULE BY ity of capsule 00:00: MOUTH 00 TWICE A Medical DAY Branch ZONISAMIDE 2021-0 Yes [id number] TAKE 1 [facility] 100 mg 7-12 CAPSULE BY ity of capsule 00:00: MOUTH 00 TWICE A Medical DAY Branch ZONISAMIDE 2021-0 2- No [id number] TAKE 1 [facility] 100 mg 7-12 12-27 CAPSULE BY ity of capsule 00:00: 00:00 MOUTH [place] 00 :00 TWICE A Medical DAY Branch SYNTHROID 2021-0 Yes [id number] TAKE 1 U n[facility] 150 mcg 7-08 TABLET BY ity of tablet 00:00: MOUTH [place] 00 EVERY DAY Medical IN THE Branch MORNING SYNTHROID 2021-0 Yes [id number] TAKE 1 U nivers 150 mcg 7-08 TABLET BY ity of tablet 00:00: MOUTH [place] 00 EVERY DAY Medical IN THE [facility] SYNTHROID Yes [id number] TAKE 1 U nivers 150 mcg 7-08 TABLET BY ity of tablet 00:00: MOUTH [place] 00 EVERY DAY Medical IN THE [facility] SYNTHROID Yes [id number] TAKE 1 U nivers 150 mcg 7-08 TABLET BY ity of tablet 00:00: MOUTH [place] 00 EVERY DAY Medical IN THE [facility] SYNTHROID Yes [id number] TAKE 1 U nivers 150 mcg 7-08 TABLET BY ity of tablet 00:00: MOUTH [place] 00 EVERY DAY Medical IN THE [facility] SYNTHROID Yes [id number] TAKE 1 U nivers 150 mcg 7-08 TABLET BY ity of tablet 00:00: MOUTH [place] 00 EVERY DAY Medical IN THE [facility] SYNTHROID Yes [id number] TAKE 1 U nivers 150 mcg 7-08 TABLET BY ity of tablet 00:00: MOUTH [place] 00 EVERY DAY Medical IN THE [facility] SYNTHROID Yes [id number] TAKE 1 U nivers 150 mcg 7-08 TABLET BY ity of tablet 00:00: MOUTH [place] 00 EVERY DAY Medical IN THE [facility] SYNTHROID Yes [id number] TAKE 1 U nivers 150 mcg 7-08 TABLET BY ity of tablet 00:00: MOUTH [place] 00 EVERY DAY Medical IN THE [facility] SYNTHROID Yes [id number] TAKE 1 U nivers 150 mcg 7-08 TABLET BY ity of tablet 00:00: MOUTH [place] 00 EVERY DAY Medical IN THE [facility] SYNTHROID Yes [id number] TAKE 1 U nivers 150 mcg 7-08 TABLET BY ity of tablet 00:00: MOUTH [place] 00 EVERY DAY Medical IN THE [facility] SYNTHROID Yes [id number] TAKE 1 U nivers 150 mcg 7-08 TABLET BY ity of tablet 00:00: MOUTH [place] 00 EVERY DAY Medical IN THE [facility] SYNTHROID 0 Yes [id number] TAKE 1 U nivers 150 mcg 7-08 TABLET BY ity of tablet 00:00: MOUTH [place] 00 EVERY DAY Medical IN THE [facility] SYNTHROID Yes [id number] TAKE 1 U nivers 150 mcg 7-08 TABLET BY ity of tablet 00:00: MOUTH [place] 00 EVERY DAY Medical IN THE [facility] SYNTHROID Yes [id number] TAKE 1 U nivers 150 mcg 7-08 TABLET BY ity of tablet 00:00: MOUTH [place] 00 EVERY DAY Medical IN THE [facility] SYNTHROID 0 Yes [id number] TAKE 1 U nivers 150 mcg 7-08 TABLET BY ity of tablet 00:00: MOUTH [place] 00 EVERY DAY Medical IN THE [facility] SYNTHROID Yes [id number] TAKE 1 U nivers 150 mcg 7-08 TABLET BY ity of tablet 00:00: MOUTH [place] 00 EVERY DAY Medical IN THE [facility] SYNTHROID Yes [id number] TAKE 1 U nivers 150 mcg 7-08 TABLET BY ity of tablet 00:00: MOUTH [place] 00 EVERY DAY Medical IN THE [facility] SYNTHROID Yes [id number] TAKE 1 U nivers 150 mcg 7-08 TABLET BY ity of tablet 00:00: MOUTH [place] 00 EVERY DAY Medical IN THE [facility] SYNTHROID Yes [id number] TAKE 1 U nivers 150 mcg 7-08 TABLET BY ity of tablet 00:00: MOUTH [place] 00 EVERY DAY Medical IN THE [facility] SYNTHROID Yes [id number] TAKE 1 U nivers 150 mcg 7-08 TABLET BY ity of tablet 00:00: MOUTH [place] 00 EVERY DAY Medical IN THE [facility] SYNTHROID Yes [id number] TAKE 1 U nivers 150 mcg 7-08 TABLET BY ity of tablet 00:00: MOUTH [place] 00 EVERY DAY Medical IN THE [facility] SYNTHROID 0 Yes [id number] TAKE 1 U nivers 150 mcg 7-08 TABLET BY ity of tablet 00:00: MOUTH [place] 00 EVERY DAY Medical IN THE [facility] SYNTHROID 0 Yes [id number] TAKE 1 U nivers 150 mcg 7-08 TABLET BY ity of tablet 00:00: MOUTH [place] 00 EVERY DAY Medical IN THE [facility] SYNTHROID 0 Yes [id number] TAKE 1 U nivers 150 mcg 7-08 TABLET BY ity of tablet 00:00: MOUTH [place] 00 EVERY DAY Medical IN THE [facility] SYNTHROID 0 Yes [id number] TAKE 1 U nivers 150 mcg 7-08 TABLET BY ity of tablet 00:00: MOUTH [place] 00 EVERY DAY Medical IN THE [place] MORNING SYNTHROID 0 Yes [id number] TAKE 1 U nivers 150 mcg 7-08 TABLET BY ity of tablet 00:00: MOUTH [place] 00 EVERY DAY Medical IN THE [place] MORNING SYNTHROID 0 Yes [id number] TAKE 1 U nivers 150 mcg 7-08 TABLET BY ity of tablet 00:00: MOUTH [place] 00 EVERY DAY Medical IN THE [facility] SYNTHROID 0 Yes [id number] TAKE 1 U nivers 150 mcg 7-08 TABLET BY ity of tablet 00:00: MOUTH [place] 00 EVERY DAY Medical IN THE [facility] SYNTHROID Yes [id number] TAKE 1 U nivers 150 mcg 7-08 TABLET BY ity of tablet 00:00: MOUTH [place] 00 EVERY DAY Medical IN THE [facility] SYNTHROID Yes [id number] TAKE 1 U nivers 150 mcg 7-08 TABLET BY ity of tablet 00:00: MOUTH [place] 00 EVERY DAY Medical IN THE [facility] SYNTHROID Yes [id number] TAKE 1 U nivers 150 mcg 7-08 TABLET BY ity of tablet 00:00: MOUTH [place] 00 EVERY DAY Medical IN THE [facility] SYNTHROID 0 3- No [id number] TAKE 1 [facility] 150 mcg 7-08 - TABLET BY ity of tablet 00:00: 00:00 MOUTH [place] 00 :00 EVERY DAY Medical IN THE [facility] SERTRALINE Yes [id number] TAKE 1 [facility] 100 mg 6-17 TABLET BY ity of tablet 00:00: MOUTH [place] 00 EVERY DAY [facility] SERTRALINE 2021-0 Yes [id number] TAKE 1 [facility] 100 mg 6-17 TABLET BY ity of tablet 00:00: MOUTH [place] 00 EVERY DAY [facility] SERTRALINE 2021-0 Yes [id number] TAKE 1 [facility] 100 mg 6-17 TABLET BY ity of tablet 00:00: MOUTH [place] 00 EVERY DAY [facility] SERTRALINE 2021-0 Yes [id number] TAKE 1 [facility] 100 mg 6-17 TABLET BY ity of tablet 00:00: MOUTH [place] 00 EVERY DAY [facility] SERTRALINE 2021-0 Yes [id number] TAKE 1 [facility] 100 mg 6-17 TABLET BY ity of tablet 00:00: MOUTH [place] 00 EVERY DAY [facility] SERTRALINE 2021-0 Yes [id number] TAKE 1 [facility] 100 mg 6-17 TABLET BY ity of tablet 00:00: MOUTH 00 EVERY DAY [facility] SERTRALINE 2021-0 Yes [id number] TAKE 1 [facility] 100 mg 6-17 TABLET BY ity of tablet 00:00: MOUTH EVERY DAY [facility] SERTRALINE 2-0 Yes [id number] TAKE 1 [facility] 100 mg 6-17 TABLET BY ity of tablet 00:00: MOUTH EVERY DAY [facility] SERTRALINE 2021-0 Yes [id number] TAKE 1 [facility] 100 mg 6-17 TABLET BY ity of tablet 00:00: MOUTH EVERY DAY [facility] SERTRALINE 2021-0 Yes [id number] TAKE 1 [facility] 100 mg 6-17 TABLET BY ity of tablet 00:00: MOUTH EVERY DAY [facility] SERTRALINE 2021-0 Yes [id number] TAKE 1 [facility] 100 mg 6-17 TABLET BY ity of tablet 00:00: MOUTH EVERY DAY [facility] SERTRALINE 2021-0 Yes [id number] TAKE 1 [facility] 100 mg 6-17 TABLET BY ity of tablet 00:00: MOUTH EVERY DAY [facility] SERTRALINE 2021-0 Yes [id number] TAKE 1 [facility] 100 mg 6-17 TABLET BY ity of tablet 00:00: MOUTH EVERY DAY [facility] SERTRALINE 2021-0 Yes [id number] TAKE 1 [facility] 100 mg 6-17 TABLET BY ity of tablet 00:00: [facility] EVERY DAY [facility] SERTRALINE 2-0 Yes [id number] TAKE 1 [facility] 100 mg 6-17 TABLET BY ity of tablet 00:00: MOUTH EVERY DAY [facility] SERTRALINE 2-0 Yes [id number] TAKE 1 [facility] 100 mg 6-17 TABLET BY ity of tablet 00:00: MOUTH EVERY DAY [facility] SERTRALINE 2-0 Yes [id number] TAKE 1 [facility] 100 mg 6-17 TABLET BY ity of tablet 00:00: MOUTH EVERY DAY [facility] SERTRALINE 2-0 Yes [id number] TAKE 1 [facility] 100 mg 6-17 TABLET BY ity of tablet 00:00: MOUTH EVERY DAY [facility] SERTRALINE 2-0 Yes [id number] TAKE 1 [facility] 100 mg 6-17 TABLET BY ity of tablet 00:00: MOUTH EVERY DAY [facility] SERTRALINE 0 Yes [id number] TAKE 1 [facility] 100 mg 6-17 TABLET BY ity of tablet 00:00: MOUTH EVERY DAY [facility] SERTRALINE 2021-0 Yes [id number] TAKE 1 [facility] 100 mg 6-17 TABLET BY ity of tablet 00:00: MOUTH [place] EVERY DAY [facility] SERTRALINE 2021-0 Yes [id number] TAKE 1 [facility] 100 mg 6-17 TABLET BY ity of tablet 00:00: MOUTH [place] DAY [facility] SERTRALINE 2021-0 2022- No [id number] TAKE 1 [facility] 100 mg 6-17 12-13 TABLET BY ity of tablet 00:00: 00:00 MOUTH [place] 00 :00 DAY [facility] acetaminoph Yes Take by [facility] vers en (TYLENOL 2-10 mouth. ity of ORAL) 15:18: [address] Branch acetaminoph Yes Take by [facility] vers [facility] (TYLENOL 2-10 mouth. ity of ORAL) 15:18: [address] Branch acetaminoph Yes Take by [facility] (TYLENOL 2-10 mouth. ity of ORAL) 15:18: [address] acetaminoph Yes Take by [facility] vers [facility] (TYLENOL 2-10 mouth. ity of ORAL) 15:18: [address] acetaminoph Yes Take by [facility] (TYLENOL 2-10 mouth. ity of ORAL) 15:18: [address] acetaminoph Yes Take by [facility] vers [facility] (TYLENOL 2-10 mouth. ity of ORAL) 15:18: [address] Branch acetaminoph Yes Take by [facility] vers en (TYLENOL 2-10 mouth. ity of ORAL) 15:18: [address] Branch acetaminoph Yes Take by [facility] vers en (TYLENOL 2-10 mouth. ity of ORAL) 15:18: [address] Branch acetaminoph Yes Take by [facility] vers [facility] (TYLENOL 2-10 mouth. ity of ORAL) 15:18: [address] acetaminoph Yes Take by [facility] vers en (TYLENOL 2-10 mouth. ity of ORAL) 15:18: [address] acetaminoph 0 Yes Take by [facility] (TYLENOL 2-10 mouth. ity of ORAL) 15:18: [address] acetaminoph 0 Yes Take by [facility] vers en (TYLENOL 2-10 mouth. ity of ORAL) 15:18: [address] acetaminoph 0 Yes Take by [facility] vers en (TYLENOL 2-10 mouth. ity of ORAL) 15:18: [address] acetaminoph 0 Yes Take by [facility] (TYLENOL 2-10 mouth. ity of ORAL) 15:18: [address] acetaminoph 0 Yes Take by [facility] en (TYLENOL 2-10 mouth. ity of ORAL) 15:18: [address] acetaminoph 0 Yes Take by [facility] en (TYLENOL 2-10 mouth. ity of ORAL) 15:18: [address] acetaminoph Yes Take by [facility] vers en (TYLENOL 2-10 mouth. ity of ORAL) 15:18: [address] acetaminoph Yes Take by [facility] vers en (TYLENOL 2-10 mouth. ity of ORAL) 15:18: [address] acetaminoph Yes Take by [facility] vers en (TYLENOL 2-10 mouth. ity of ORAL) 15:18: [address] acetaminoph Yes Take by [facility] en (TYLENOL 2-10 mouth. ity of ORAL) 15:18: [address] acetaminoph Yes Take by [facility] en (TYLENOL 2-10 mouth. ity of ORAL) 15:18: [address] acetaminoph 0 Yes Take by [facility] (TYLENOL 2-10 mouth. ity of ORAL) 15:18: [address] acetaminoph 0 Yes Take by [facility] vers en (TYLENOL 2-10 mouth. ity of ORAL) 15:18: [address] acetaminoph 0 Yes Take by [facility] vers en (TYLENOL 2-10 mouth. ity of ORAL) 15:18: [address] acetaminoph 0 Yes Take by [facility] vers en (TYLENOL 2-10 mouth. ity of ORAL) 15:18: [address] acetaminoph 0 Yes Take by [facility] vers en (TYLENOL 2-10 mouth. ity of ORAL) 15:18: [address] acetaminoph 0 Yes Take by [facility] en (TYLENOL 2-10 mouth. ity of ORAL) 15:18: [address] acetaminoph 0 Yes Take by [facility] en (TYLENOL 2-10 mouth. ity of ORAL) 15:18: [address] acetaminoph 0 Yes Take by [facility] (TYLENOL 2-10 mouth. ity of ORAL) 15:18: [address] acetaminoph 0 Yes Take by [facility] (TYLENOL 2-10 mouth. ity of ORAL) 15:18: [address] acetaminoph Yes Take by [facility] (TYLENOL 2-10 mouth. ity of ORAL) 15:18: [address] acetaminoph Yes Take by [facility] (TYLENOL 2-10 mouth. ity of ORAL) 15:18: [address] acetaminoph Yes Take by [facility] (TYLENOL 2-10 mouth. ity of ORAL) 15:18: [address] acetaminoph Yes Take by [facility] (TYLENOL 2-10 mouth. ity of ORAL) 15:18: [address] acetaminoph Yes Take by [facility] en (TYLENOL 2-10 mouth. ity of ORAL) 15:18: [address] acetaminoph Yes Take by [facility] vers en (TYLENOL 2-10 mouth. ity of ORAL) 15:18: [address] acetaminoph Yes Take by [facility] vers en (TYLENOL 2-10 mouth. ity of ORAL) 15:18: [address] acetaminoph 0 Yes Take by [facility] vers en (TYLENOL 2-10 mouth. ity of ORAL) 15:18: [address] acetaminoph 0 Yes Take by [facility] (TYLENOL 2-10 mouth. ity of ORAL) 15:18: [address] acetaminoph 0 Yes Take by [facility] vers en (TYLENOL 2-10 mouth. ity of ORAL) 15:18: [address] acetaminoph 0 Yes Take by [facility] en (TYLENOL 2-10 mouth. ity of ORAL) 15:18: [address] acetaminoph 0 Yes Take by [facility] vers en (TYLENOL 2-10 mouth. ity of ORAL) 15:18: [address] acetaminoph Yes Take by [facility] vers en (TYLENOL 2-10 mouth. ity of ORAL) 15:18: [address] acetaminoph Yes Take by [facility] vers en (TYLENOL 2-10 mouth. ity of ORAL) 15:18: [address] acetaminoph Yes Take by [facility] vers en (TYLENOL 2-10 mouth. ity of ORAL) 15:18: [address] acetaminoph Yes Take by [facility] vers en (TYLENOL 2-10 mouth. ity of ORAL) 15:18: [address] acetaminoph Yes Take by [facility] vers en (TYLENOL 2-10 mouth. ity of ORAL) 15:18: [address] acetaminoph Yes Take by [facility] en (TYLENOL 2-10 mouth. ity of ORAL) 15:18: [address] acetaminoph Yes Take by [facility] vers en (TYLENOL 2-10 mouth. ity of ORAL) 15:18: [address] acetaminoph Yes Take by [facility] en (TYLENOL 2-10 mouth. ity of ORAL) 15:18: [address] acetaminoph Yes Take by [facility] en (TYLENOL 2-10 mouth. ity of ORAL) 15:18: [address] acetaminoph Yes Take by [facility] en (TYLENOL 2-10 mouth. ity of ORAL) 15:18: [address] acetaminoph 0 Yes Take by [facility] vers en (TYLENOL 2-10 mouth. ity of ORAL) 15:18: [address] acetaminoph Yes Take by [facility] vers en (TYLENOL 2-10 mouth. ity of ORAL) 15:18: [address] acetaminoph 0 Yes Take by [facility] vers en (TYLENOL 2-10 mouth. ity of ORAL) 15:18: [address] acetaminoph Yes Take by [facility] vers en (TYLENOL 2-10 mouth. ity of ORAL) 15:18: [address] acetaminoph Yes Take by [facility] vers en (TYLENOL 2-10 mouth. ity of ORAL) 15:18: [address] Branch acetaminoph Yes Take by [facility] vers en (TYLENOL 2-10 mouth. ity of ORAL) 15:18: [address] Branch acetaminoph Yes Take by [facility] vers en (TYLENOL 2-10 mouth. ity of ORAL) 15:18: [address] acetaminoph Yes Take by [facility] vers en (TYLENOL 2-10 mouth. ity of ORAL) 15:18: [address] acetaminoph Yes Take by [facility] vers en (TYLENOL 2-10 mouth. ity of ORAL) 15:18: [address] acetaminoph Yes Take by [facility] vers en (TYLENOL 2-10 mouth. ity of ORAL) 15:18: [address] acetaminoph Yes Take by [facility] vers en (TYLENOL 2-10 mouth. ity of ORAL) 15:18: [address] acetaminoph Yes Take by [facility] vers en (TYLENOL 2-10 mouth. ity of ORAL) 15:18: [address] acetaminoph Yes Take by [facility] vers en (TYLENOL 2-10 mouth. ity of ORAL) 15:18: [address] acetaminoph Yes Take by [facility] vers en (TYLENOL 2-10 mouth. ity of ORAL) 15:18: [address] acetaminoph Yes Take by [facility] en (TYLENOL 2-10 mouth. ity of ORAL) 15:18: [address] acetaminoph Yes Take by [facility] vers en (TYLENOL 2-10 mouth. ity of ORAL) 15:18: [address] acetaminoph Yes Take by [facility] vers en (TYLENOL 2-10 mouth. ity of ORAL) 15:18: [address] Branch acetaminoph 0 Yes Take by [facility] vers en (TYLENOL 2-10 mouth. ity of ORAL) 15:18: [address] acetaminoph 0 Yes Take by [facility] vers en (TYLENOL 2-10 mouth. ity of ORAL) 15:18: [address] acetaminoph 0 Yes Take by [facility] vers en (TYLENOL 2-10 mouth. ity of ORAL) 15:18: [address] Branch acetaminoph 0 Yes Take by [facility] vers en (TYLENOL 2-10 mouth. ity of ORAL) 15:18: [address] acetaminoph 0 Yes Take by [facility] vers en (TYLENOL 2-10 mouth. ity of ORAL) 15:18: [address] acetaminoph Yes Take by [facility] vers en (TYLENOL 2-10 mouth. ity of ORAL) 15:18: [address] acetaminoph Yes Take by [facility] vers en (TYLENOL 2-10 mouth. ity of ORAL) 15:18: [address] acetaminoph Yes Take by [facility] vers en (TYLENOL 2-10 mouth. ity of ORAL) 15:18: [address] acetaminoph Yes Take by [facility] vers en (TYLENOL 2-10 mouth. ity of ORAL) 15:18: [address] acetaminoph Yes Take by [facility] vers en (TYLENOL 2-10 mouth. ity of ORAL) 15:18: [address] acetaminoph Yes Take by [facility] vers en (TYLENOL 2-10 mouth. ity of ORAL) 15:18: [address] acetaminoph Yes Take by [facility] vers en (TYLENOL 2-10 mouth. ity of ORAL) 15:18: [address] acetaminoph 0 Yes Take by [facility] vers en (TYLENOL 2-10 mouth. ity of ORAL) 15:18: [address] acetaminoph Yes Take by [facility] vers en (TYLENOL 2-10 mouth. ity of ORAL) 15:18: [address] acetaminoph 2022-0 Yes Take by [facility] vers en (TYLENOL 2-10 mouth. ity of ORAL) 15:18: [place] 47 [facility] proMETHazin 2020-03 Yes Insert 1 [facility] 25 mg 2-03 suppositor ity of suppository 00:00: y rectally [place] 00 at Medical bedtime, Branch do not use within 6 hours of taking reglan. proMETHazin 2020-03 Yes Insert 1 [facility] 25 mg 2-03 suppositor ity of suppository 00:00: y rectally [place] 00 at Medical bedtime, Branch do not use within 6 hours of taking reglan. proMETHazin 2020-03 Yes Insert 1 [facility] 25 mg 2-03 suppositor ity of suppository 00:00: y rectally [place] 00 at Medical bedtime, Branch do not use within 6 hours of taking reglan. proMETHazin 2020-03 Yes Insert 1 [facility] 25 mg 2-03 suppositor ity of suppository 00:00: y rectally [place] 00 at Medical bedtime, Branch do not use within 6 hours of taking reglan. proMETHazin 2020-03 Yes Insert 1 [facility] 25 mg 2-03 suppositor ity of suppository 00:00: y rectally [place] 00 at Medical bedtime, Branch do not use within 6 hours of taking reglan. proMETHazin 2020-03 Yes Insert 1 [facility] 25 mg 2-03 suppositor ity of suppository 00:00: y rectally [place] 00 at Medical bedtime, Branch do not use within 6 hours of taking reglan. proMETHazin 2020-03 Yes Insert 1 [facility] 25 mg 2-03 suppositor ity of suppository 00:00: y rectally [place] 00 at Medical bedtime, Branch do not use within 6 hours of taking reglan. proMETHazin 2020-03 Yes Insert 1 [facility] 25 mg 2-03 suppositor ity of suppository 00:00: y rectally [place] 00 at Medical bedtime, Branch do not use within 6 hours of taking reglan. proMETHazin 2020-03 Yes Insert 1 [facility] 25 mg 2-03 suppositor ity of suppository 00:00: y rectally [place] 00 at Medical bedtime, Branch do not use within 6 hours of taking reglan. proMETHazin 2020-03 Yes Insert 1 [facility] 25 mg 2-03 suppositor ity of suppository 00:00: y rectally [place] 00 at Medical bedtime, Branch do not use within 6 hours of taking reglan. proMETHazin 2020-03 Yes Insert 1 [facility] 25 mg 2-03 suppositor ity of suppository 00:00: y rectally [place] 00 at Medical bedtime, Branch do not use within 6 hours of taking reglan. proMETHazin 2020-03 Yes Insert 1 [facility] 25 mg 2-03 suppositor ity of suppository 00:00: y rectally [place] 00 at Medical bedtime, Branch do not use within 6 hours of taking reglan. proMETHazin 2020-03 Yes Insert 1 [facility] 25 mg 2-03 suppositor ity of suppository 00:00: y rectally [place] 00 at Medical bedtime, Branch do not use within 6 hours of taking reglan. proMETHazin 2020-03 Yes Insert 1 [facility] 25 mg 2-03 suppositor ity of suppository 00:00: y rectally [place] 00 at Medical bedtime, Branch do not use within 6 hours of taking reglan. proMETHazin 2020-03 Yes Insert 1 [facility] 25 mg 2-03 suppositor ity of suppository 00:00: y rectally [place] 00 at Medical bedtime, Branch do not use within 6 hours of taking reglan. proMETHazin 2020-03 Yes Insert 1 [facility] 25 mg 2-03 suppositor ity of suppository 00:00: y rectally [place] 00 at Medical bedtime, Branch do not use within 6 hours of taking reglan. proMETHazin 2020-03 Yes Insert 1 [facility] 25 mg 2-03 suppositor ity of suppository 00:00: y rectally [place] 00 at Medical bedtime, Branch do not use within 6 hours of taking reglan. proMETHazin 2020-03 Yes Insert 1 [facility] 25 mg 2-03 suppositor ity of suppository 00:00: y rectally [place] 00 at Medical bedtime, Branch do not use within 6 hours of taking reglan. proMETHazin 2020-03 Yes Insert 1 [facility] 25 mg 2-03 suppositor ity of suppository 00:00: y rectally [place] 00 at Medical bedtime, Branch do not use within 6 hours of taking reglan. proMETHazin 2020-03 Yes Insert 1 [facility] 25 mg 2-03 suppositor ity of suppository 00:00: y rectally [place] 00 at Medical bedtime, Branch do not use within 6 hours of taking reglan. proMETHazin 2020-03 Yes Insert 1 [facility] 25 mg 2-03 suppositor ity of suppository 00:00: y rectally [place] 00 at Medical bedtime, Branch do not use within 6 hours of taking reglan. proMETHazin 2020-03 Yes Insert 1 [facility] 25 mg 2-03 suppositor ity of suppository 00:00: y rectally [place] 00 at Medical bedtime, Branch do not use within 6 hours of taking reglan. proMETHazin 2020-03 Yes Insert 1 [facility] 25 mg 2-03 suppositor ity of suppository 00:00: y rectally [place] 00 at Medical bedtime, Branch do not use within 6 hours of taking reglan. proMETHazin 2020-03 Yes Insert 1 [facility] 25 mg 2-03 suppositor ity of suppository 00:00: y rectally [place] 00 at Medical bedtime, Branch do not use within 6 hours of taking reglan. proMETHazin 2020-03 Yes Insert 1 [facility] 25 mg 2-03 suppositor ity of suppository 00:00: y rectally [place] 00 at Medical bedtime, Branch do not use within 6 hours of taking reglan. proMETHazin 2020-03 Yes Insert 1 [facility] 25 mg 2-03 suppositor ity of suppository 00:00: y rectally [place] 00 at Medical bedtime, Branch do not use within 6 hours of taking reglan. proMETHazin 2020-03 Yes Insert 1 [facility] 25 mg 2-03 suppositor ity of suppository 00:00: y rectally [place] 00 at Medical bedtime, Branch do not use within 6 hours of taking reglan. proMETHazin 2020-03 Yes Insert 1 [facility] 25 mg 2-03 suppositor ity of suppository 00:00: y rectally [place] 00 at Medical bedtime, Branch do not use within 6 hours of taking reglan. proMETHazin 2020-03 Yes Insert 1 [facility] 25 mg 2-03 suppositor ity of suppository 00:00: y rectally [place] 00 at Medical bedtime, Branch do not use within 6 hours of taking reglan. proMETHazin 2020-03 Yes Insert 1 [facility] 25 mg 2-03 suppositor ity of suppository 00:00: y rectally [place] 00 at Medical bedtime, Branch do not use within 6 hours of taking reglan. proMETHazin 2020-03 Yes Insert 1 [facility] 25 mg 2-03 suppositor ity of suppository 00:00: y rectally [place] 00 at Medical bedtime, Branch do not use within 6 hours of taking reglan. proMETHazin 2020-03 Yes Insert 1 [facility] 25 mg 2-03 suppositor ity of suppository 00:00: y rectally [place] 00 at Medical bedtime, Branch do not use within 6 hours of taking reglan. proMETHazin 2020-03 Yes Insert 1 [facility] 25 mg 2-03 suppositor ity of suppository 00:00: y rectally [place] 00 at Medical bedtime, Branch do not use within 6 hours of taking reglan. proMETHazin 2020-03 Yes Insert 1 [facility] 25 mg 2-03 suppositor ity of suppository 00:00: y rectally [place] 00 at Medical bedtime, Branch do not use within 6 hours of taking reglan. proMETHazin 2020-03 Yes Insert 1 [facility] 25 mg 2-03 suppositor ity of suppository 00:00: y rectally [place] 00 at Medical bedtime, Branch do not use within 6 hours of taking reglan. proMETHazin 2020-03 Yes Insert 1 [facility] 25 mg 2-03 suppositor ity of suppository 00:00: y rectally [place] 00 at Medical bedtime, Branch do not use within 6 hours of taking reglan. proMETHazin 2020-03 Yes Insert 1 [facility] 25 mg 2-03 suppositor ity of suppository 00:00: y rectally [place] 00 at Medical bedtime, Branch do not use within 6 hours of taking reglan. proMETHazin 2020-03 Yes Insert 1 [facility] 25 mg 2-03 suppositor ity of suppository 00:00: y rectally [place] 00 at Medical bedtime, Branch do not use within 6 hours of taking reglan. proMETHazin 2020-03 Yes Insert 1 [facility] 25 mg 2-03 suppositor ity of suppository 00:00: y rectally [place] 00 at Medical bedtime, Branch do not use within 6 hours of taking reglan. proMETHazin 2020-03 Yes Insert 1 [facility] 25 mg 2-03 suppositor ity of suppository 00:00: y rectally [place] 00 at Medical bedtime, Branch do not use within 6 hours of taking reglan. proMETHazin 2020-03 Yes Insert 1 [facility] 25 mg 2-03 suppositor ity of suppository 00:00: y rectally [place] 00 at Medical bedtime, Branch do not use within 6 hours of taking reglan. proMETHazin 2020-03 Yes Insert 1 [facility] 25 mg 2-03 suppositor ity of suppository 00:00: y rectally [place] 00 at Medical bedtime, Branch do not use within 6 hours of taking reglan. proMETHazin 2020-03 Yes Insert 1 [facility] 25 mg 2-03 suppositor ity of suppository 00:00: y rectally [place] 00 at Medical bedtime, Branch do not use within 6 hours of taking reglan. proMETHazin 2020-03 Yes Insert 1 [facility] 25 mg 2-03 suppositor ity of suppository 00:00: y rectally [place] 00 at Medical bedtime, Branch do not use within 6 hours of taking reglan. proMETHazin 2020-03 Yes Insert 1 [facility] 25 mg 2-03 suppositor ity of suppository 00:00: y rectally [place] 00 at Medical bedtime, Branch do not use within 6 hours of taking reglan. proMETHazin 2020-03 Yes Insert 1 [facility] 25 mg 2-03 suppositor ity of suppository 00:00: y rectally [place] 00 at Medical bedtime, Branch do not use within 6 hours of taking reglan. proMETHazin 2020-03 Yes Insert 1 [facility] 25 mg 2-03 suppositor ity of suppository 00:00: y rectally [place] 00 at Medical bedtime, Branch do not use within 6 hours of taking reglan. proMETHazin 2020-03 Yes Insert 1 [facility] 25 mg 2-03 suppositor ity of suppository 00:00: y rectally [place] 00 at Medical bedtime, Branch do not use within 6 hours of taking reglan. proMETHazin 2020-03 Yes Insert 1 [facility] 25 mg 2-03 suppositor ity of suppository 00:00: y rectally [place] 00 at Medical bedtime, Branch do not use within 6 hours of taking reglan. proMETHazin 2020-03 Yes Insert 1 [facility] 25 mg 2-03 suppositor ity of suppository 00:00: y rectally [place] 00 at Medical bedtime, Branch do not use within 6 hours of taking reglan. proMETHazin 2020-03 Yes Insert 1 [facility] 25 mg 2-03 suppositor ity of suppository 00:00: y rectally [place] 00 at Medical bedtime, Branch do not use within 6 hours of taking reglan. proMETHazin 2020-03 Yes Insert 1 [facility] 25 mg 2-03 suppositor ity of suppository 00:00: y rectally [place] 00 at Medical bedtime, Branch do not use within 6 hours of taking reglan. proMETHazin 2020-03 Yes Insert 1 [facility] 25 mg 2-03 suppositor ity of suppository 00:00: y rectally [place] 00 at Medical bedtime, Branch do not use within 6 hours of taking reglan. proMETHazin 2020-03 Yes Insert 1 [facility] 25 mg 2-03 suppositor ity of suppository 00:00: y rectally [place] 00 at Medical bedtime, Branch do not use within 6 hours of taking reglan. proMETHazin 2020-03 Yes Insert 1 [facility] 25 mg 2-03 suppositor ity of suppository 00:00: y rectally [place] 00 at Medical bedtime, Branch do not use within 6 hours of taking reglan. proMETHazin 2020-03 Yes Insert 1 [facility] 25 mg 2-03 suppositor ity of suppository 00:00: y rectally [place] 00 at Medical bedtime, Branch do not use within 6 hours of taking reglan. proMETHazin 2020-03 Yes Insert 1 [facility] 25 mg 2-03 suppositor ity of suppository 00:00: y rectally [place] 00 at Medical bedtime, Branch do not use within 6 hours of taking reglan. proMETHazin 2020-03 Yes Insert 1 [facility] 25 mg 2-03 suppositor ity of suppository 00:00: y rectally [place] 00 at Medical bedtime, Branch do not use within 6 hours of taking reglan. proMETHazin 2020-03 Yes Insert 1 [facility] 25 mg 2-03 suppositor ity of suppository 00:00: y rectally [place] 00 at Medical bedtime, Branch do not use within 6 hours of taking reglan. proMETHazin 2020-03 Yes Insert 1 [facility] 25 mg 2-03 suppositor ity of suppository 00:00: y rectally [place] 00 at Medical bedtime, Branch do not use within 6 hours of taking reglan. proMETHazin 2020-03 Yes Insert 1 [facility] 25 mg 2-03 suppositor ity of suppository 00:00: y rectally [place] 00 at Medical bedtime, Branch do not use within 6 hours of taking reglan. proMETHazin 2020-03 Yes Insert 1 [facility] 25 mg 2-03 suppositor ity of suppository 00:00: y rectally [place] 00 at Medical bedtime, Branch do not use within 6 hours of taking reglan. proMETHazin 2020-03 Yes Insert 1 [facility] 25 mg 2-03 suppositor ity of suppository 00:00: y rectally [place] 00 at Medical bedtime, Branch do not use within 6 hours of taking reglan. proMETHazin 2020-03 Yes Insert 1 [facility] 25 mg 2-03 suppositor ity of suppository 00:00: y rectally [place] 00 at Medical bedtime, Branch do not use within 6 hours of taking reglan. proMETHazin 2020-03 Yes Insert 1 [facility] 25 mg 2-03 suppositor ity of suppository 00:00: y rectally [place] 00 at Medical bedtime, Branch do not use within 6 hours of taking reglan. proMETHazin 2020-03 Yes Insert 1 [facility] 25 mg 2-03 suppositor ity of suppository 00:00: y rectally [place] 00 at Medical bedtime, Branch do not use within 6 hours of taking reglan. proMETHazin 2020-03 Yes Insert 1 [facility] 25 mg 2-03 suppositor ity of suppository 00:00: y rectally [place] 00 at Medical bedtime, Branch do not use within 6 hours of taking reglan. proMETHazin 2020-03 Yes Insert 1 [facility] 25 mg 2-03 suppositor ity of suppository 00:00: y rectally [place] 00 at Medical bedtime, Branch do not use within 6 hours of taking reglan. proMETHazin 2020-03 Yes Insert 1 [facility] 25 mg 2-03 suppositor ity of suppository 00:00: y rectally [place] 00 at Medical bedtime, Branch do not use within 6 hours of taking reglan. proMETHazin 2020-03 Yes Insert 1 [facility] 25 mg 2-03 suppositor ity of suppository 00:00: y rectally [place] 00 at Medical bedtime, Branch do not use within 6 hours of taking reglan. proMETHazin 2020-03 Yes Insert 1 [facility] 25 mg 2-03 suppositor ity of suppository 00:00: y rectally [place] 00 at Medical bedtime, Branch do not use within 6 hours of taking reglan. proMETHazin 2020-03 Yes Insert 1 [facility] 25 mg 2-03 suppositor ity of suppository 00:00: y rectally [place] 00 at Medical bedtime, Branch do not use within 6 hours of taking reglan. proMETHazin 2020-03 Yes Insert 1 [facility] 25 mg 2-03 suppositor ity of suppository 00:00: y rectally [place] 00 at Medical bedtime, Branch do not use within 6 hours of taking reglan. proMETHazin 2020-03 Yes Insert 1 Un mayank e 25 mg 2-03 suppositor ity of suppository 00:00: y rectally [place] 00 at Medical bedtime, Branch do not use within 6 hours of taking reglan. proMETHazin 2020-03 Yes Insert 1 Un [place]ank e 25 mg 2-03 suppositor ity of suppository 00:00: y rectally [place] 00 at Medical bedtime, Branch do not use within 6 hours of taking reglan. proMETHazin 2020-03 Yes Insert 1 Un [place]ank e 25 mg 2-03 suppositor ity of suppository 00:00: y rectally [place] 00 at Medical bedtime, Branch do not use within 6 hours of taking reglan. proMETHazin 2020-03 Yes Insert 1 Un mayank e 25 mg 2-03 suppositor ity of suppository 00:00: y rectally [place] 00 at Medical bedtime, Branch do not use within 6 hours of taking reglan. proMETHazin 2020-03 Yes Insert 1 Un mayank e 25 mg 2-03 suppositor ity of suppository 00:00: y rectally [place] 00 at Medical bedtime, Branch do not use within 6 hours of taking reglan. proMETHazin 2020-03 Yes Insert 1 Un [place] e 25 mg 2-03 suppositor ity of suppository 00:00: y rectally [place] 00 at Medical bedtime, Branch do not use within 6 hours of taking reglan. proMETHazin 2020-03 Yes Insert 1 Un [place]ank e 25 mg 2-03 suppositor ity of suppository 00:00: y rectally [place] 00 at Medical bedtime, Branch do not use within 6 hours of taking reglan. proMETHazin 2020-03 Yes Insert 1 Un mayank e 25 mg 2-03 suppositor ity of suppository 00:00: y rectally [place] 00 at Medical bedtime, Branch do not use within 6 hours of taking reglan. proMETHazin 2020-03- No Insert 1 U nivers e 25 mg 2-03 05-09 suppositor ity o f suppository 00:00: 00:00 y rectally [place] 00 :00 at Medical bedtime, Branch do not use within 6 hours of taking reglan. proMETHazin 2020-03- No Insert 1 U nivers e 25 mg 2-03 05-09 suppositor ity o f suppository 00:00: 00:00 y rectally [place] 00 :00 at Medical bedtime, Branch do not use within 6 hours of taking reglan. ibuprofen 2019- No [id number] 800mg Take 1 [facility] 800 mg 7-25 11- tablet by ity of tablet 00:00: 04:59 mouth [place] 00 :00 every 6 Medical (six) Branch hours as needed for Pain (scale 4-6) for up to 21 days. sulfamethox 2019- No [id number] 1{tbl} Take 1 [facility] azole-trime 10-23- tablet by it y of thoprim 00:00: 00:00 mouth 2 [place] (BACTRIM 00 :00 (two) Medical DS) 800-160 times Branch mg per daily for tablet 10 days. SERTraline 2020- No [id number] 50mg Take 1 [facility] 50 mg 09-26 tablet by ity of tablet 00:00: 00:00 mouth [place] 00 :00 daily. Medical Branch dextroamphe 2019- No [id number] 20mg Take 1 [facility] tamine-amph 6-20 10-30 tablet by it y of etamine 00:00: 00:00 mouth 3 [place] (ADDERALL) 00 :00 (three) Medica l 20 mg times Branch tablet daily. dextroamphe 2019- No [id number] Take 1 tab [facility] tamine-amph 5-24 10-30 in morning i ty of etamine 10 00:00: 00:00 x 3 days [place] mg tablet 00 :00 then Medical increase Branch to 1 tab twice daily x 7 days then , if needed take 2 tabs twice daily (otherwise continue 1 tab twice daily), further refills from psychiatry clonazePAM 2019- No [id number] .5mg Take 1 Univers (KLONOPIN) 5-17 08- tablet by ity of 0.5 mg 00:00: 00:00 mouth [place] tablet 00 :00 every 8 Medical (eight) Branch hours as needed (Anxiety). PANTOPRAZOL 2019- No [id number] TAKE 1 Univers E 40 mg EC 4-27 08-11 TABLET BY ity of tablet 00:00: 00:00 MOUTH [place] 00 :00 EVERY DAY Medical Branch [id number] 2020- No 1{dose} Take 1 U nivers carb,glu-FA 3-17 02-04 Dose by ity of -dss-dha 00:00: 00:00 mouth [place] (CITRANATAL 00 :00 daily. Medica l ASSURE) 35 Branch mg iron-1 mg -50 mg-300 mg combo pack diazePAM 5 2019- No Take one Un mayank mg tablet 3-13 10-30 5mg tablet ity of 00:00: 00:00 30 minutes [place] 00 :00 prior to Medical MRI study, Branch and may repeat one 5mg tablet as needed. levothyroxi 2019- No [id number] 112ug Take 1 [facility] ne 3-09 12-15 tablet by ity of (SYNTHROID) 00:00: 00:00 [place] 112 mcg 00 :00 every Medical tablet morning. Branch atorvastati 2019- No [id number] 40mg Take 1 [facility] n 40 mg 1-29 10-19 tablet by ity of tablet 00:00: 00:00 mouth at [place] 00 :00 bedtime. Medical Branch traMADol 2019- No [id number] 50mg Take 1 U nivers (ULTRAM) 50 1-27 08-02 tablet by it y of mg tablet 00:00: 00:00 mouth [place] 00 :00 every 6 Medical (six) Branch hours as needed for Pain (scale 4-6) or Pain (scale 7-10). zonisamide 2019- No [id number] 100mg Take 1 [facility] 100 mg 1-24 08-10 capsule by ity of capsule 00:00: 00:00 mouth 2 [place] 00 :00 (two) Medical times Branch daily. butalbital- 2019- No [id number] 1{tbl} Take 1 [facility] acetaminoph 1-10 10-30 tablet by it y of en-caff 00:00: 00:00 mouth [place] 50-325-40 00 :00 every 6 Medical mg tablet (six) Branch hours as needed (Migraine Headaches) . clonazePAM 2019- No [id number] .5mg Take 1 [facility] 0.5 mg 1-10 10-30 tablet by ity of tablet 00:00: 00:00 mouth 3 [place] 00 :00 (three) Medical times Branch daily. 2019- No [id number] 1{tbl} Take 1 [facility] vitamin 8-27 08- tablet by ity of w/FA tablet 00:00: 00:00 [place] 00 :00 daily. Medical Branch Immunizations Ordered Filled Immunization Date Status Comments [facility] e Immunization Name Name Influenza Virus 2022-01-27 Completed Universit y of Vaccine [facility], 00:00:00 [place] Me dical Preserv and ABX Branch Free 6 MO-64 YRS Influenza Virus 2022-01-27 Completed Universit y of Vaccine [facility] IM, 00:00:00 [place] Me dical Preserv and ABX Branch Free 6 MO-64 YRS Influenza Virus 2022-01-27 Completed Universit y of Vaccine Quad IM, 00:00:00 [place] Me dical Preserv and ABX Branch Free 6 MO-64 YRS Influenza Virus 2022-01-27 Completed Universit y of Vaccine Quad IM, 00:00:00 [place] Me dical Preserv and ABX Branch Free 6 MO-64 YRS Influenza Virus 2022-01-27 Completed Universit y of Vaccine Quad IM, 00:00:00 [place] Me dical Preserv and ABX Branch Free 6 MO-64 YRS Influenza Virus 2022-01-27 Completed Universit y of Vaccine Quad IM, 00:00:00 [place] Me dical Preserv and ABX Branch Free 6 MO-64 YRS Influenza Virus 2022-01-27 Completed Universit y of Vaccine Quad IM, 00:00:00 [place] Me dical Preserv and ABX Branch Free 6 MO-64 YRS Influenza Virus 2022-01-27 Completed Universit y of Vaccine Quad IM, 00:00:00 [place] Me dical Preserv and ABX Branch Free 6 MO-64 YRS Influenza Virus 2022-01-27 Completed Universit y of Vaccine Quad IM, 00:00:00 [place] Me dical Preserv and ABX Branch Free 6 MO-64 YRS Influenza Virus 2022-01-27 Completed Universit y of Vaccine Quad IM, 00:00:00 [place] Me dical Preserv and ABX Branch Free 6 MO-64 YRS Influenza Virus 2022-01-27 Completed Universit y of Vaccine Quad IM, 00:00:00 [place] Me dical Preserv and ABX Branch Free 6 MO-64 YRS Influenza Virus 2022-01-27 Completed Universit y of Vaccine Quad IM, 00:00:00 [place] Me dical Preserv and ABX Branch Free 6 MO-64 YRS Influenza Virus 2022-01-27 Completed Universit y of Vaccine Quad IM, 00:00:00 [place] Me dical Preserv and ABX Branch Free 6 MO-64 YRS Influenza Virus 2022-01-27 Completed Universit y of Vaccine Quad IM, 00:00:00 [place] Me dical Preserv and ABX Branch Free 6 MO-64 YRS Influenza Virus 2022-01-27 Completed Universit y of Vaccine Quad IM, 00:00:00 [place] Me dical Preserv and ABX Branch Free 6 MO-64 YRS Influenza Virus 2022-01-27 Completed Universit y of Vaccine Quad IM, 00:00:00 [place] Me dical Preserv and ABX Branch Free 6 MO-64 YRS Influenza Virus 2022-01-27 Completed Universit y of Vaccine Quad IM, 00:00:00 [place] Me dical Preserv and ABX Branch Free 6 MO-64 YRS Influenza Virus 2022-01-27 Completed Universit y of Vaccine Quad IM, 00:00:00 [place] Me dical Preserv and ABX Branch Free 6 MO-64 YRS Influenza Virus 2022-01-27 Completed Universit y of Vaccine Quad IM, 00:00:00 [place] Me dical Preserv and ABX Branch Free 6 MO-64 YRS Influenza Virus 2022-01-27 Completed Universit y of Vaccine Quad IM, 00:00:00 [place] Me dical Preserv and ABX Branch Free 6 MO-64 YRS Influenza Virus 2022-01-27 Completed Universit y of Vaccine Quad IM, 00:00:00 [place] Me dical Preserv and ABX Branch Free 6 MO-64 YRS Influenza Virus 2022-01-27 Completed Universit y of Vaccine Quad IM, 00:00:00 [place] Me dical Preserv and ABX Branch Free 6 MO-64 YRS Influenza Virus 2022-01-27 Completed Universit y of Vaccine Quad IM, 00:00:00 [place] Me dical Preserv and ABX Branch Free 6 MO-64 YRS Influenza Virus 2022-01-27 Completed Universit y of Vaccine Quad IM, 00:00:00 [place] Me dical Preserv and ABX Branch Free 6 MO-64 YRS Influenza Virus 2022-01-27 Completed Universit y of Vaccine Quad IM, 00:00:00 [place] Me dical Preserv and ABX Branch Free 6 MO-64 YRS Influenza Virus 2022-01-27 Completed Universit y of Vaccine Quad IM, 00:00:00 [place] Me dical Preserv and ABX Branch Free 6 MO-64 YRS Influenza Virus 2022-01-27 Completed Universit y of Vaccine Quad IM, 00:00:00 [place] Me dical Preserv and ABX Branch Free 6 MO-64 YRS Influenza Virus 2022-01-27 Completed Universit y of Vaccine Quad IM, 00:00:00 [place] Me dical Preserv and ABX Branch Free 6 MO-64 YRS Influenza Virus 2022-01-27 Completed Universit y of Vaccine Quad IM, 00:00:00 [place] Me dical Preserv and ABX Branch Free 6 MO-64 YRS Influenza Virus 2022-01-27 Completed Universit y of Vaccine Quad IM, 00:00:00 [place] Me dical Preserv and ABX Branch Free 6 MO-64 YRS Influenza Virus 2022-01-27 Completed Universit y of Vaccine Quad IM, 00:00:00 [place] Me dical Preserv and ABX Branch Free 6 MO-64 YRS Influenza Virus 2022-01-27 Completed Universit y of Vaccine Quad IM, 00:00:00 [place] Me dical Preserv and ABX Branch Free 6 MO-64 YRS Influenza Virus 2022-01-27 Completed Universit y of Vaccine Quad IM, 00:00:00 [place] Me dical Preserv and ABX Branch Free 6 MO-64 YRS Influenza Virus 2022-01-27 Completed Universit y of Vaccine Quad IM, 00:00:00 [place] Me dical Preserv and ABX Branch Free 6 MO-64 YRS Influenza Virus 2022-01-27 Completed Universit y of Vaccine Quad IM, 00:00:00 [place] Me dical Preserv and ABX Branch Free 6 MO-64 YRS Influenza Virus 2022-01-27 Completed Universit y of Vaccine Quad IM, 00:00:00 [place] Me dical Preserv and ABX Branch Free 6 MO-64 YRS Influenza Virus 2022-01-27 Completed Universit y of Vaccine Quad IM, 00:00:00 [place] Me dical Preserv and ABX Branch Free 6 MO-64 YRS Influenza Virus 2022-01-27 Completed Universit y of Vaccine Quad IM, 00:00:00 [place] Me dical Preserv and ABX Branch Free 6 MO-64 YRS Influenza Virus 2022-01-27 Completed Universit y of Vaccine Quad IM, 00:00:00 [place] Me dical Preserv and ABX Branch Free 6 MO-64 YRS Influenza Virus 2022-01-27 Completed Universit y of Vaccine Quad IM, 00:00:00 [place] Me dical Preserv and ABX Branch Free 6 MO-64 YRS Influenza Virus 2022-01-27 Completed Universit y of Vaccine Quad IM, 00:00:00 [place] Me dical Preserv and ABX Branch Free 6 MO-64 YRS Influenza Virus 2022-01-27 Completed Universit y of Vaccine Quad IM, 00:00:00 [place] Me dical Preserv and ABX Branch Free 6 MO-64 YRS Influenza Virus 2022-01-27 Completed Universit y of Vaccine Quad IM, 00:00:00 [place] Me dical Preserv and ABX Branch Free 6 MO-64 YRS Influenza Virus 2022-01-27 Completed Universit y of Vaccine Quad IM, 00:00:00 [place] Me dical Preserv and ABX Branch Free 6 MO-64 YRS Influenza Virus 2022-01-27 Completed Universit y of Vaccine Quad IM, 00:00:00 [place] Me dical Preserv and ABX Branch Free 6 MO-64 YRS Influenza Virus 2022-01-27 Completed Universit y of Vaccine Quad IM, 00:00:00 [place] Me dical Preserv and ABX Branch Free 6 MO-64 YRS Influenza Virus 2022-01-27 Completed Universit y of Vaccine Quad IM, 00:00:00 [place] Me dical Preserv and ABX Branch Free 6 MO-64 YRS Influenza Virus 2022-01-27 Completed Universit y of Vaccine Quad IM, 00:00:00 [place] Me dical Preserv and ABX Branch Free 6 MO-64 YRS Influenza Virus 2022-01-27 Completed Universit y of Vaccine Quad IM, 00:00:00 [place] Me dical Preserv and ABX Branch Free 6 MO-64 YRS Influenza Virus 2022-01-27 Completed Universit y of Vaccine Quad IM, 00:00:00 [place] Me dical Preserv and ABX Branch Free 6 MO-64 YRS Influenza Virus 2022-01-27 Completed Universit y of Vaccine Quad IM, 00:00:00 [place] Me dical Preserv and ABX Branch Free 6 MO-64 YRS Influenza Virus 2022-01-27 Completed Universit y of Vaccine Quad IM, 00:00:00 [place] Me dical Preserv and ABX Branch Free 6 MO-64 YRS Influenza Virus 2022-01-27 Completed Universit y of Vaccine Quad IM, 00:00:00 [place] Me dical Preserv and ABX Branch Free 6 MO-64 YRS Influenza Virus 2022-01-27 Completed Universit y of Vaccine Quad IM, 00:00:00 [place] Me dical Preserv and ABX Branch Free 6 MO-64 YRS Influenza Virus 2022-01-27 Completed Universit y of Vaccine Quad IM, 00:00:00 [place] Me dical Preserv and ABX Branch Free 6 MO-64 YRS Influenza Virus 2022-01-27 Completed Universit y of Vaccine Quad IM, 00:00:00 [place] Me dical Preserv and ABX Branch Free 6 MO-64 YRS Influenza Virus 2022-01-27 Completed Universit y of Vaccine Quad IM, 00:00:00 [place] Me dical Preserv and ABX Branch Free 6 MO-64 YRS Influenza Virus 2022-01-27 Completed Universit y of Vaccine Quad IM, 00:00:00 [place] Me dical Preserv and ABX Branch Free 6 MO-64 YRS Influenza Virus 2022-01-27 Completed Universit y of Vaccine Quad IM, 00:00:00 [place] Me dical Preserv and ABX Branch Free 6 MO-64 YRS Influenza Virus 2022-01-27 Completed Universit y of Vaccine Quad IM, 00:00:00 [place] Me dical Preserv and ABX Branch Free 6 MO-64 YRS Influenza Virus 2022-01-27 Completed Universit y of Vaccine Quad IM, 00:00:00 [place] Me dical Preserv and ABX Branch Free 6 MO-64 YRS Influenza Virus 2022-01-27 Completed Universit y of Vaccine Quad IM, 00:00:00 [place] Me dical Preserv and ABX Branch Free 6 MO-64 YRS Influenza Virus 2022-01-27 Completed Universit y of Vaccine Quad IM, 00:00:00 [place] Me dical Preserv and ABX Branch Free 6 MO-64 YRS Influenza Virus 2022-01-27 Completed Universit y of Vaccine Quad IM, 00:00:00 [place] Me dical Preserv and ABX Branch Free 6 MO-64 YRS Influenza Virus 2022-01-27 Completed Universit y of Vaccine Quad IM, 00:00:00 [place] Me dical Preserv and ABX Branch Free 6 MO-64 YRS Influenza Virus 2021-02-07 Completed Universit y of Vaccine Quad IM, 00:00:00 [place] Me dical Preserv and ABX Branch Free 6 MO-64 YRS TDAP 2021-02-07 Completed University of 00:00:00 [facility] Influenza Virus 2021-02-07 Completed Universit y of Vaccine Quad IM, 00:00:00 [place] Me dical Preserv and ABX Branch Free 6 MO-64 YRS TDAP 2021-02-07 Completed University of 00:00:00 [facility] Influenza Virus 2021-02-07 Completed Universit y of Vaccine Quad IM, 00:00:00 [place] Me dical Preserv and ABX Branch Free 6 MO-64 YRS TDAP 2021-02-07 Completed University of 00:00:00 [facility] Influenza Virus 2021-02-07 Completed Universit y of Vaccine Quad IM, 00:00:00 [place] Me dical Preserv and ABX Branch Free 6 MO-64 YRS TDAP 2021-02-07 Completed University of 00:00:00 [facility] Influenza Virus 2021-02-07 Completed Universit y of Vaccine Quad IM, 00:00:00 [place] Me dical Preserv and ABX Branch Free 6 MO-64 YRS TDAP 2021-02-07 Completed University of 00:00:00 [facility] Influenza Virus 2021-02-07 Completed Universit y of Vaccine Quad IM, 00:00:00 [place] Me dical Preserv and ABX Branch Free 6 MO-64 YRS TDAP 2021-02-07 Completed University of 00:00:00 [facility] Influenza Virus 2021-02-07 Completed Universit y of Vaccine Quad IM, 00:00:00 [place] Me dical Preserv and ABX Branch Free 6 MO-64 YRS TDAP 2021-02-07 Completed University of 00:00:00 [facility] Influenza Virus 2021-02-07 Completed Universit y of Vaccine Quad IM, 00:00:00 [place] Me dical Preserv and ABX Branch Free 6 MO-64 YRS TDAP 2021-02-07 Completed University of 00:00:00 [facility] Influenza Virus 2021-02-07 Completed Universit y of Vaccine Quad IM, 00:00:00 [place] Me dical Preserv and ABX Branch Free 6 MO-64 YRS TDAP 2021-02-07 Completed University of 00:00:00 [facility] Influenza Virus 2021-02-07 Completed Universit y of Vaccine Quad IM, 00:00:00 [place] Me dical Preserv and ABX Branch Free 6 MO-64 YRS TDAP 2021-02-07 Completed University of 00:00:00 [facility] Influenza Virus 2021-02-07 Completed Universit y of Vaccine Quad IM, 00:00:00 [place] Me dical Preserv and ABX Branch Free 6 MO-64 YRS TDAP 2021-02-07 Completed University of 00:00:00 [facility] Influenza Virus 2021-02-07 Completed Universit y of Vaccine Quad IM, 00:00:00 [facility] [place] dical Preserv and ABX Branch Free 6 MO-64 YRS TDAP 2021-02-07 Completed University of 00:00:00 [facility] Influenza Virus 2021-02-07 Completed Universit y of Vaccine Quad IM, 00:00:00 [facility] [place] dical Preserv and ABX Branch Free 6 MO-64 YRS TDAP 2021-02-07 Completed University of 00:00:00 [facility] Influenza Virus 2021-02-07 Completed Universit y of Vaccine Quad IM, 00:00:00 [place] Me dical Preserv and ABX Branch Free 6 MO-64 YRS TDAP 2021-02-07 Completed University of 00:00:00 [facility] Influenza Virus 2021-02-07 Completed Universit y of Vaccine Quad IM, 00:00:00 [facility] [place] dical Preserv and ABX Branch Free 6 MO-64 YRS TDAP 2021-02-07 Completed University of 00:00:00 [facility] Influenza Virus 2021-02-07 Completed Universit y of Vaccine Quad IM, 00:00:00 [facility] [place] dical Preserv and ABX Branch Free 6 MO-64 YRS TDAP 2021-02-07 Completed University of 00:00:00 [facility] Influenza Virus 2021-02-07 Completed Universit y of Vaccine Quad IM, 00:00:00 [place] Me dical Preserv and ABX Branch Free 6 MO-64 YRS TDAP 2021-02-07 Completed University of 00:00:00 [facility] Influenza Virus 2021-02-07 Completed Universit y of Vaccine Quad IM, 00:00:00 [place] Me dical Preserv and ABX Branch Free 6 MO-64 YRS TDAP 2021-02-07 Completed University of 00:00:00 [facility] Influenza Virus 2021-02-07 Completed Universit y of Vaccine Quad IM, 00:00:00 [place] Me dical Preserv and ABX Branch Free 6 MO-64 YRS TDAP 2021-02-07 Completed University of 00:00:00 [facility] Influenza Virus 2021-02-07 Completed Universit y of Vaccine Quad IM, 00:00:00 [place] Me dical Preserv and ABX Branch Free 6 MO-64 YRS TDAP 2021-02-07 Completed University of 00:00:00 [facility] Influenza Virus 2021-02-07 Completed Universit y of Vaccine Quad IM, 00:00:00 [place] Me dical Preserv and ABX Branch Free 6 MO-64 YRS TDAP 2021-02-07 Completed University of 00:00:00 [facility] Influenza Virus 2021-02-07 Completed Universit y of Vaccine Quad IM, 00:00:00 [place] Me dical Preserv and ABX Branch Free 6 MO-64 YRS TDAP 2021-02-07 Completed University of 00:00:00 [facility] Influenza Virus 2021-02-07 Completed Universit y of Vaccine Quad IM, 00:00:00 [place] Me dical Preserv and ABX Branch Free 6 MO-64 YRS TDAP 2021-02-07 Completed University of 00:00:00 [facility] Influenza Virus 2021-02-07 Completed Universit y of Vaccine Quad IM, 00:00:00 [place] Me dical Preserv and ABX Branch Free 6 MO-64 YRS TDAP 2021-02-07 Completed University of 00:00:00 [facility] Influenza Virus 2021-02-07 Completed Universit y of Vaccine Quad IM, 00:00:00 [place] Me dical Preserv and ABX Branch Free 6 MO-64 YRS TDAP 2021-02-07 Completed University of 00:00:00 [facility] Influenza Virus 2021-02-07 Completed Universit y of Vaccine Quad IM, 00:00:00 [place] Me dical Preserv and ABX Branch Free 6 MO-64 YRS TDAP 2021-02-07 Completed University of 00:00:00 [facility] Influenza Virus 2021-02-07 Completed Universit y of Vaccine Quad IM, 00:00:00 [place] Me dical Preserv and ABX Branch Free 6 MO-64 YRS TDAP 2021-02-07 Completed University of 00:00:00 [facility] Influenza Virus 2021-02-07 Completed Universit y of Vaccine Quad IM, 00:00:00 [place] Me dical Preserv and ABX Branch Free 6 MO-64 YRS TDAP 2021-02-07 Completed University of 00:00:00 [facility] Influenza Virus 2021-02-07 Completed Universit y of Vaccine Quad IM, 00:00:00 [place] Me dical Preserv and ABX Branch Free 6 MO-64 YRS TDAP 2021-02-07 Completed University of 00:00:00 [facility] Influenza Virus 2021-02-07 Completed Universit y of Vaccine Quad IM, 00:00:00 [place] Me dical Preserv and ABX Branch Free 6 MO-64 YRS TDAP 2021-02-07 Completed University of 00:00:00 [facility] Influenza Virus 2021-02-07 Completed Universit y of Vaccine Quad IM, 00:00:00 [place] Me dical Preserv and ABX Branch Free 6 MO-64 YRS TDAP 2021-02-07 Completed [facility] of 00:00:00 [facility] Influenza Virus 2021-02-07 Completed Universit y of Vaccine Quad IM, 00:00:00 [place] Me dical Preserv and ABX Branch Free 6 MO-64 YRS TDAP 2021-02-07 Completed [facility] of 00:00:00 [facility] Influenza Virus 2021-02-07 Completed Universit y of Vaccine Quad IM, 00:00:00 [place] Me dical Preserv and ABX Branch Free 6 MO-64 YRS TDAP 2021-02-07 Completed University of 00:00:00 [facility] Influenza Virus 2021-02-07 Completed Universit y of Vaccine Quad IM, 00:00:00 [place] Me dical Preserv and ABX Branch Free 6 MO-64 YRS TDAP 2021-02-07 Completed University of 00:00:00 [facility] Influenza Virus 2021-02-07 Completed Universit y of Vaccine Quad IM, 00:00:00 [place] Me dical Preserv and ABX Branch Free 6 MO-64 YRS TDAP 2021-02-07 Completed University of 00:00:00 [facility] Influenza Virus 2021-02-07 Completed Universit y of Vaccine Quad IM, 00:00:00 [place] Me dical Preserv and ABX Branch Free 6 MO-64 YRS TDAP 2021-02-07 Completed University of 00:00:00 [facility] Influenza Virus 2021-02-07 Completed Universit y of Vaccine Quad IM, 00:00:00 [place] Me dical Preserv and ABX Branch Free 6 MO-64 YRS TDAP 2021-02-07 Completed [facility] of 00:00:00 [facility] Influenza Virus 2021-02-07 Completed Universit y of Vaccine Quad IM, 00:00:00 [place] Me dical Preserv and ABX Branch Free 6 MO-64 YRS TDAP 2021-02-07 Completed [facility] of 00:00:00 [facility] Influenza Virus 2021-02-07 Completed Universit y of Vaccine Quad IM, 00:00:00 [place] Me dical Preserv and ABX Branch Free 6 MO-64 YRS TDAP 2021-02-07 Completed [facility] of 00:00:00 [facility] Influenza Virus 2021-02-07 Completed Universit y of Vaccine Quad IM, 00:00:00 [place] Me dical Preserv and ABX Branch Free 6 MO-64 YRS TDAP 2021-02-07 Completed [facility] of 00:00:00 [facility] Influenza Virus 2021-02-07 Completed Universit y of Vaccine Quad IM, 00:00:00 [place] Me dical Preserv and ABX Branch Free 6 MO-64 YRS TDAP 2021-02-07 Completed [facility] of 00:00:00 [facility] Influenza Virus 2021-02-07 Completed Universit y of Vaccine Quad IM, 00:00:00 [place] Me dical Preserv and ABX Branch Free 6 MO-64 YRS TDAP 2021-02-07 Completed [facility] of 00:00:00 [facility] Influenza Virus 2021-02-07 Completed Universit y of Vaccine Quad IM, 00:00:00 [place] Me dical Preserv and ABX Branch Free 6 MO-64 YRS TDAP 2021-02-07 Completed [facility] 00:00:00 [facility] Influenza Virus 2021-02-07 Completed [facility], 00:00:00 [place] [facility] Preserv and ABX Branch Free 6 MO-64 YRS TDAP 2021-02-07 Completed [facility] 00:00:00 [facility] Influenza Virus 2021-02-07 Completed [facility], 00:00:00 [place] [facility] Preserv and ABX Branch Free 6 MO-64 YRS TDAP 2021-02-07 Completed [facility] 00:00:00 [facility] Influenza Virus 2021-02-07 Completed [facility], 00:00:00 [place] [facility] Preserv and ABX Branch Free 6 MO-64 YRS TDAP 2021-02-07 Completed [facility] 00:00:00 [facility] Influenza Virus 2021-02-07 Completed [facility], 00:00:00 [place] [facility] Preserv and ABX Branch Free 6 MO-64 YRS TDAP 2021-02-07 Completed [facility] 00:00:00 [facility] Influenza Virus 2021-02-07 Completed [facility], 00:00:00 [place] [facility] Preserv and ABX Branch Free 6 MO-64 YRS TDAP 2021-02-07 Completed [facility] 00:00:00 [facility] Influenza Virus 2021-02-07 Completed [facility], 00:00:00 [place] [facility] Preserv and ABX Branch Free 6 MO-64 YRS TDAP 2021-02-07 Completed [facility] 00:00:00 [facility] Influenza Virus 2021-02-07 Completed [facility] IM, 00:00:00 [facility] [place] dical Preserv and ABX Branch Free 6 MO-64 YRS TDAP 2021-02-07 Completed [facility] 00:00:00 [facility] Influenza Virus 2021-02-07 Completed [facility], 00:00:00 [place] [facility] Preserv and ABX Branch Free 6 MO-64 YRS TDAP 2021-02-07 Completed [facility] 00:00:00 [facility] Influenza Virus 2021-02-07 Completed [facility], 00:00:00 [place] [facility] Preserv and ABX Branch Free 6 MO-64 YRS TDAP 2021-02-07 Completed [facility] 00:00:00 [facility] Influenza Virus 2021-02-07 Completed [facility] IM, 00:00:00 [place] [facility] Preserv and ABX Branch Free 6 MO-64 YRS TDAP 2021-02-07 Completed [facility] 00:00:00 [facility] Influenza Virus 2021-02-07 Completed [facility], 00:00:00 [place] [facility] Preserv and ABX Branch Free 6 MO-64 YRS TDAP 2021-02-07 Completed [facility] 00:00:00 [facility] Influenza Virus 2021-02-07 Completed [facility] IM, 00:00:00 [facility] [place] dical Preserv and ABX Branch Free 6 MO-64 YRS TDAP 2021-02-07 Completed [facility] 00:00:00 [facility] Influenza Virus 2021-02-07 Completed [facility] IM, 00:00:00 [facility] [place] dical Preserv and ABX Branch Free 6 MO-64 YRS TDAP 2021-02-07 Completed [facility] 00:00:00 [facility] Influenza Virus 2021-02-07 Completed [facility] IM, 00:00:00 [facility] [place] dical Preserv and ABX Branch Free 6 MO-64 YRS TDAP 2021-02-07 Completed [facility] 00:00:00 [facility] Influenza Virus 2021-02-07 Completed [facility] IM, 00:00:00 [facility] [place] dical Preserv and ABX Branch Free 6 MO-64 YRS TDAP 2021-02-07 Completed [facility] 00:00:00 [facility] Influenza Virus 2021-02-07 Completed [facility] IM, 00:00:00 [facility] [place] dical Preserv and ABX Branch Free 6 MO-64 YRS TDAP 2021-02-07 Completed [facility] 00:00:00 [facility] Influenza Virus 2021-02-07 Completed [facility] IM, 00:00:00 [facility] [place] dical Preserv and ABX Branch Free 6 MO-64 YRS TDAP 2021-02-07 Completed [facility] 00:00:00 [facility] Influenza Virus 2021-02-07 Completed [facility] IM, 00:00:00 [place] [facility] Preserv and ABX Branch Free 6 MO-64 YRS TDAP 2021-02-07 Completed [facility] 00:00:00 [facility] Influenza Virus 2021-02-07 Completed [facility] IM, 00:00:00 [place] [facility] Preserv and ABX Branch Free 6 MO-64 YRS TDAP 2021-02-07 Completed [facility] 00:00:00 [facility] Influenza Virus 2021-02-07 Completed [facility] IM, 00:00:00 [place] [facility] Preserv and ABX Branch Free 6 MO-64 YRS TDAP 2021-02-07 Completed [facility] 00:00:00 [facility] Influenza Virus 2021-02-07 Completed [facility] IM, 00:00:00 [place] [facility] Preserv and ABX Branch Free 6 MO-64 YRS TDAP 2021-02-07 Completed [facility] 00:00:00 [facility] Influenza Virus 2021-02-07 Completed [facility] IM, 00:00:00 [place] [facility] Preserv and ABX Branch Free 6 MO-64 YRS TDAP 2021-02-07 Completed [facility] 00:00:00 [facility] Influenza Virus 2021-02-07 Completed [facility] IM, 00:00:00 [place] [facility] Preserv and ABX Branch Free 6 MO-64 YRS TDAP 2021-02-07 Completed [facility] 00:00:00 [facility] Influenza Virus 2021-02-07 Completed [facility] IM, 00:00:00 [place] [facility] Preserv and ABX Branch Free 6 MO-64 YRS TDAP 2021-02-07 Completed [facility] 00:00:00 [facility] Influenza Virus 2021-02-07 Completed [facility] IM, 00:00:00 [place] [facility] Preserv and ABX Branch Free 6 MO-64 YRS TDAP 2021-02-07 Completed [facility] 00:00:00 [facility] Influenza Virus 2021-02-07 Completed [facility] IM, 00:00:00 [place] [facility] Preserv and ABX Branch Free 6 MO-64 YRS TDAP 2021-02-07 Completed [facility] 00:00:00 [facility] Influenza Virus 2021-02-07 Completed [facility] IM, 00:00:00 [place] [facility] Preserv and ABX Branch Free 6 MO-64 YRS TDAP 2021-02-07 Completed [facility] 00:00:00 [facility] Influenza Virus 2021-02-07 Completed [facility] IM, 00:00:00 [place] [facility] Preserv and ABX Branch Free 6 MO-64 YRS TDAP 2021-02-07 Completed [facility] 00:00:00 [facility] Influenza Virus 2021-02-07 Completed [facility] IM, 00:00:00 [place] [facility] Preserv and ABX Branch Free 6 MO-64 YRS TDAP 2021-02-07 Completed [facility] 00:00:00 [facility] Influenza Virus 2021-02-07 Completed [facility] IM, 00:00:00 [place] [facility] Preserv and ABX Branch Free 6 MO-64 YRS TDAP 2021-02-07 Completed [facility] 00:00:00 [facility] Influenza Virus 2021-02-07 Completed [facility] IM, 00:00:00 [place] [facility] Preserv and ABX Branch Free 6 MO-64 YRS TDAP 2021-02-07 Completed [facility] 00:00:00 [facility] Influenza Virus 2021-02-07 Completed [facility] IM, 00:00:00 [place] [facility] Preserv and ABX Branch Free 6 MO-64 YRS TDAP 2021-02-07 Completed [facility] 00:00:00 [facility] Influenza Virus 2021-02-07 Completed [facility] IM, 00:00:00 [place] [facility] Preserv and ABX Branch Free 6 MO-64 YRS TDAP 2021-02-07 Completed [facility] 00:00:00 [facility] Influenza Virus 2021-02-07 Completed [facility] IM, 00:00:00 [place] [facility] Preserv and ABX Branch Free 6 MO-64 YRS TDAP 2021-02-07 Completed [facility] 00:00:00 [facility] Influenza Virus 2021-02-07 Completed [facility] IM, 00:00:00 [place] [facility] Preserv and ABX Branch Free 6 MO-64 YRS TDAP 2021-02-07 Completed [facility] 00:00:00 [facility] Influenza Virus 2021-02-07 Completed [facility] IM, 00:00:00 [place] [facility] Preserv and ABX Branch Free 6 MO-64 YRS TDAP 2021-02-07 Completed [facility] 00:00:00 [facility] Influenza Virus 2021-02-07 Completed [facility] IM, 00:00:00 [place] [facility] Preserv and ABX Branch Free 6 MO-64 YRS TDAP 2021-02-07 Completed [facility] 00:00:00 [facility] Influenza Virus 2021-02-07 Completed [facility] Vacc[facility] IM, 00:00:00 [facility] [place] dical Preserv and ABX Branch Free 6 MO-64 YRS TDAP 2021-02-07 Completed [facility] 00:00:00 [facility] Influenza Virus 2021-02-07 Completed [facility] Vaccine [facility] IM, 00:00:00 [facility] [place] dical Preserv and ABX Branch Free 6 MO-64 YRS TDAP 2021-02-07 Completed [facility] 00:00:00 [facility] Influenza Virus 2021-02-07 Completed [facility] Vacc[facility] IM, 00:00:00 [facility] [place] dical Preserv and ABX Branch Free 6 MO-64 YRS TDAP 2021-02-07 Completed [facility] 00:00:00 [facility] Influenza Virus 2021-02-07 Completed [facility] Vaccine [facility] IM, 00:00:00 [facility] [place] dical Preserv and ABX Branch Free 6 MO-64 YRS TDAP 2021-02-07 Completed [facility] 00:00:00 [facility] Influenza Virus 2020-01-25 Completed [facility] Vacc[facility] .5 mL 00:00:00 [place] [facility] IM 6+ MO Branch Influenza Virus 2020-01-25 Completed [facility] .5 mL 00:00:00 [place] [facility] 6+ MO Branch Influenza Virus 2020-01-25 Completed [facility] Vacc[facility] Quad .5 mL 00:00:00 [place] [facility] IM 6+ MO Branch Influenza Virus 2020-01-25 Completed [facility] .5 mL 00:00:00 [place] [facility] IM 6+ MO Branch Influenza Virus 2020-01-25 Completed [facility] .5 mL 00:00:00 [place] [facility] IM 6+ MO Branch Influenza Virus 2020-01-25 Completed [facility] .5 mL 00:00:00 [place] [facility] IM 6+ MO Branch Influenza Virus 2020-01-25 Completed [facility] .5 mL 00:00:00 [place] [facility] IM 6+ MO Branch Influenza Virus 2020-01-25 Completed [facility] .5 mL 00:00:00 [place] [facility] IM 6+ MO Branch Influenza Virus 2020-01-25 Completed [facility] .5 mL 00:00:00 [place] [facility] IM 6+ MO Branch Influenza Virus 2020-01-25 Completed [facility] .5 mL 00:00:00 [place] [facility] IM 6+ MO Branch Influenza Virus 2020-01-25 Completed [facility] .5 mL 00:00:00 [place] [facility] IM 6+ MO Branch Influenza Virus 2020-01-25 Completed [facility] .5 mL 00:00:00 [place] [facility] IM 6+ MO Branch Influenza Virus 2020-01-25 Completed [facility] .5 mL 00:00:00 [place] [facility] IM 6+ MO Branch Influenza Virus 2020-01-25 Completed [facility] .5 mL 00:00:00 [place] [facility] IM 6+ MO Branch Influenza Virus 2020-01-25 Completed [facility] .5 mL 00:00:00 [place] [facility] IM 6+ MO Branch Influenza Virus 2020-01-25 Completed [facility] .5 mL 00:00:00 [place] [facility] IM 6+ MO Branch Influenza Virus 2020-01-25 Completed [facility] .5 mL 00:00:00 [place] [facility] IM 6+ MO Branch Influenza Virus 2020-01-25 Completed [facility] .5 mL 00:00:00 [place] [facility] IM 6+ MO Branch Influenza Virus 2020-01-25 Completed [facility] .5 mL 00:00:00 [place] [facility] IM 6+ MO Branch Influenza Virus 2020-01-25 Completed [facility] .5 mL 00:00:00 [place] [facility] IM 6+ MO Branch Influenza Virus 2020-01-25 Completed [facility] .5 mL 00:00:00 [place] [facility] IM 6+ MO Branch Influenza Virus 2020-01-25 Completed [facility] .5 mL 00:00:00 [place] [facility] IM 6+ MO Branch Influenza Virus 2020-01-25 Completed [facility] .5 mL 00:00:00 [place] [facility] IM 6+ MO Branch Influenza Virus 2020-01-25 Completed [facility] .5 mL 00:00:00 [place] [facility] IM 6+ MO Branch Influenza Virus 2020-01-25 Completed [facility] .5 mL 00:00:00 [place] [facility] IM 6+ MO Branch Influenza Virus 2020-01-25 Completed [facility] .5 mL 00:00:00 [place] [facility] IM 6+ MO Branch Influenza Virus 2020-01-25 Completed [facility] .5 mL 00:00:00 [place] [facility] IM 6+ MO Branch Influenza Virus 2020-01-25 Completed [facility] .5 mL 00:00:00 [place] [facility] IM 6+ MO Branch Influenza Virus 2020-01-25 Completed [facility] .5 mL 00:00:00 [place] [facility] IM 6+ MO Branch Influenza Virus 2020-01-25 Completed [facility] .5 mL 00:00:00 [place] [facility] IM 6+ MO Branch Influenza Virus 2020-01-25 Completed [facility]ine [facility] .5 mL 00:00:00 [place] [facility] IM 6+ MO Branch Influenza Virus 2020-01-25 Completed [facility] .5 mL 00:00:00 [place] [facility] IM 6+ MO Branch Influenza Virus 2020-01-25 Completed [facility] .5 mL 00:00:00 [place] [facility] IM 6+ MO Branch Influenza Virus 2020-01-25 Completed [facility] .5 mL 00:00:00 [place] [facility] IM 6+ MO Branch Influenza Virus 2020-01-25 Completed [facility] .5 mL 00:00:00 [place] [facility] IM 6+ MO Branch Influenza Virus 2020-01-25 Completed [facility] .5 mL 00:00:00 [place] [facility] IM 6+ MO Branch Influenza Virus 2020-01-25 Completed [facility] .5 mL 00:00:00 [place] [facility] IM 6+ MO Branch Influenza Virus 2020-01-25 Completed [facility] .5 mL 00:00:00 [place] [facility] 6+ MO Branch Influenza Virus 2020-01-25 Completed [facility] .5 mL 00:00:00 [place] [facility] IM 6+ MO Branch Influenza Virus 2020-01-25 Completed [facility] Vaccine Quad .5 mL 00:00:00 [place] [facility] IM 6+ MO Branch Influenza Virus 2020-01-25 Completed [facility] .5 mL 00:00:00 [place] [facility] IM 6+ MO Branch Influenza Virus 2020-01-25 Completed [facility] .5 mL 00:00:00 [place] [facility] IM 6+ MO Branch Influenza Virus 2020-01-25 Completed [facility] .5 mL 00:00:00 [place] [facility] IM 6+ MO Branch Influenza Virus 2020-01-25 Completed [facility] .5 mL 00:00:00 [place] [facility] IM 6+ MO Branch Influenza Virus 2020-01-25 Completed [facility] .5 mL 00:00:00 [place] [facility] IM 6+ MO Branch Influenza Virus 2020-01-25 Completed [facility] .5 mL 00:00:00 [place] [facility] IM 6+ MO Branch Influenza Virus 2020-01-25 Completed [facility] .5 mL 00:00:00 [place] [facility] IM 6+ MO Branch Influenza Virus 2020-01-25 Completed [facility]ine [facility] .5 mL 00:00:00 [place] [facility] IM 6+ MO Branch Influenza Virus 2020-01-25 Completed [facility] .5 mL 00:00:00 [place] [facility] IM 6+ MO Branch Influenza Virus 2020-01-25 Completed [facility] .5 mL 00:00:00 [place] [facility] IM 6+ MO Branch Influenza Virus 2020-01-25 Completed [facility]ine [facility] .5 mL 00:00:00 [place] [facility] IM 6+ MO Branch Influenza Virus 2020-01-25 Completed [facility] .5 mL 00:00:00 [place] [facility] IM 6+ MO Branch Influenza Virus 2020-01-25 Completed [facility]ine [facility] .5 mL 00:00:00 [place] [facility] IM 6+ MO Branch Influenza Virus 2020-01-25 Completed [facility] .5 mL 00:00:00 [place] [facility] IM 6+ MO Branch Influenza Virus 2020-01-25 Completed [facility] .5 mL 00:00:00 [place] [facility] IM 6+ MO Branch Influenza Virus 2020-01-25 Completed [facility] .5 mL 00:00:00 [place] [facility] IM 6+ MO Branch Influenza Virus 2020-01-25 Completed [facility] .5 mL 00:00:00 [place] [facility] IM 6+ MO Branch Influenza Virus 2020-01-25 Completed [facility] .5 mL 00:00:00 [place] [facility] 6+ MO Branch Influenza Virus 2020-01-25 Completed [facility] .5 mL 00:00:00 [place] [facility] IM 6+ MO Branch Influenza Virus 2020-01-25 Completed [facility] .5 mL 00:00:00 [place] [facility] IM 6+ MO Branch Influenza Virus 2020-01-25 Completed [facility] .5 mL 00:00:00 [place] [facility] IM 6+ MO Branch Influenza Virus 2020-01-25 Completed [facility] .5 mL 00:00:00 [place] [facility] IM 6+ MO Branch Influenza Virus 2020-01-25 Completed [facility] .5 mL 00:00:00 [place] [facility] IM 6+ MO Branch Influenza Virus 2020-01-25 Completed [facility] .5 mL 00:00:00 [place] [facility] IM 6+ MO Branch Influenza Virus 2020-01-25 Completed [facility] .5 mL 00:00:00 [place] [facility] IM 6+ MO Branch Influenza Virus 2020-01-25 Completed [facility] .5 mL 00:00:00 [place] [facility] IM 6+ MO Branch Influenza Virus 2020-01-25 Completed [facility] .5 mL 00:00:00 [place] [facility] IM 6+ MO Branch Influenza Virus 2020-01-25 Completed [facility] .5 mL 00:00:00 [place] [facility] IM 6+ MO Branch Influenza Virus 2020-01-25 Completed [facility] .5 mL 00:00:00 [place] [facility] IM 6+ MO Branch Influenza Virus 2020-01-25 Completed [facility] .5 mL 00:00:00 [place] [facility] 6+ MO Branch Influenza Virus 2020-01-25 Completed [facility] .5 mL 00:00:00 [place] [facility] IM 6+ MO Branch Influenza Virus 2020-01-25 Completed [facility] .5 mL 00:00:00 [place] [facility] 6+ MO Branch Influenza Virus 2020-01-25 Completed [facility] .5 mL 00:00:00 [place] [facility] IM 6+ MO Branch Influenza Virus 2020-01-25 Completed [facility] .5 mL 00:00:00 [place] [facility] IM 6+ MO Branch Influenza Virus 2020-01-25 Completed [facility] .5 mL 00:00:00 [place] [facility] IM 6+ MO Branch Influenza Virus 2020-01-25 Completed [facility] .5 mL 00:00:00 [place] [facility] IM 6+ MO Branch Influenza Virus 2020-01-25 Completed [facility] .5 mL 00:00:00 [place] [facility] IM 6+ MO Branch Influenza Virus 2020-01-25 Completed [facility] .5 mL 00:00:00 [place] [facility] IM 6+ MO Branch Influenza Virus 2020-01-25 Completed [facility] .5 mL 00:00:00 [place] [facility] IM 6+ MO Branch Influenza Virus 2020-01-25 Completed [facility] .5 mL 00:00:00 [place] [facility] IM 6+ MO Branch Influenza Virus 2020-01-25 Completed [facility] .5 mL 00:00:00 [place] [facility] IM 6+ MO Branch Influenza Virus 2020-01-25 Completed [facility] .5 mL 00:00:00 [place] [facility] 6+ MO Branch Influenza Virus 2020-01-25 Completed [facility] .5 mL 00:00:00 [place] [facility] IM 6+ MO Branch Influenza Virus 2020-01-25 Completed [facility] .5 mL 00:00:00 [place] [facility] 6+ MO Branch Influenza Virus 2018-12-23 Completed [facility] .5 mL 00:00:00 [place] [facility] IM 6+ MO Branch Influenza Virus 2018-12-23 Completed [facility] .5 mL 00:00:00 [place] [facility] IM 6+ MO Branch Influenza Virus 2018-12-23 Completed [facility] .5 mL 00:00:00 [place] [facility] 6+ MO Branch Influenza Virus 2018-12-23 Completed [facility] .5 mL 00:00:00 [place] [facility] IM 6+ MO Branch Influenza Virus 2018-12-23 Completed [facility] .5 mL 00:00:00 [place] [facility] IM 6+ MO Branch Influenza Virus 2018-12-23 Completed [facility] .5 mL 00:00:00 [place] [facility] 6+ MO Branch Influenza Virus 2018-12-23 Completed [facility] .5 mL 00:00:00 [place] [facility] IM 6+ MO Branch Influenza Virus 2018-12-23 Completed [facility] .5 mL 00:00:00 [place] [facility] 6+ MO Branch Influenza Virus 2018-12-23 Completed [facility] .5 mL 00:00:00 [place] [facility] 6+ MO Branch Influenza Virus 2018-12-23 Completed [facility] .5 mL 00:00:00 [place] [facility] 6+ MO Branch Influenza Virus 2018-12-23 Completed [facility] .5 mL 00:00:00 [place] [facility] IM 6+ MO Branch Influenza Virus 2018-12-23 Completed [facility] .5 mL 00:00:00 [place] [facility] 6+ MO Branch Influenza Virus 2018-12-23 Completed [facility] .5 mL 00:00:00 [place] [facility] IM 6+ MO Branch Influenza Virus 2018-12-23 Completed [facility] .5 mL 00:00:00 [place] [facility] 6+ MO Branch Influenza Virus 2018-12-23 Completed [facility] .5 mL 00:00:00 [place] [facility] 6+ MO Branch Influenza Virus 2018-12-23 Completed [facility] .5 mL 00:00:00 [place] [facility] 6+ MO Branch Influenza Virus 2018-12-23 Completed [facility] .5 mL 00:00:00 [place] [facility] 6+ MO Branch Influenza Virus 2018-12-23 Completed [facility] .5 mL 00:00:00 [place] [facility] 6+ MO Branch Influenza Virus 2018-12-23 Completed [facility] .5 mL 00:00:00 [place] [facility] 6+ MO Branch Influenza Virus 2018-12-23 Completed [facility] .5 mL 00:00:00 [place] [facility] 6+ MO Branch Influenza Virus 2018-12-23 Completed [facility] .5 mL 00:00:00 [place] [facility] IM 6+ MO Branch Influenza Virus 2018-12-23 Completed [facility] .5 mL 00:00:00 [place] [facility] IM 6+ MO Branch Influenza Virus 2018-12-23 Completed [facility] .5 mL 00:00:00 [place] [facility] IM 6+ MO Branch Influenza Virus 2018-12-23 Completed [facility] .5 mL 00:00:00 [place] [facility] IM 6+ MO Branch Influenza Virus 2018-12-23 Completed [facility] .5 mL 00:00:00 [place] [facility] 6+ MO Branch Influenza Virus 2018-12-23 Completed [facility] .5 mL 00:00:00 [place] [facility] 6+ MO Branch Influenza Virus 2018-12-23 Completed [facility] .5 mL 00:00:00 [place] [facility] 6+ MO Branch Influenza Virus 2018-12-23 Completed [facility] .5 mL 00:00:00 [place] [facility] 6+ MO Branch Influenza Virus 2018-12-23 Completed [facility] .5 mL 00:00:00 [place] [facility] 6+ MO Branch Influenza Virus 2018-12-23 Completed [facility] .5 mL 00:00:00 [place] [facility] 6+ MO Branch Influenza Virus 2018-12-23 Completed [facility] .5 mL 00:00:00 [place] [facility] 6+ MO Branch Influenza Virus 2018-12-23 Completed [facility] .5 mL 00:00:00 [place] [facility] 6+ MO Branch Influenza Virus 2018-12-23 Completed [facility] .5 mL 00:00:00 [place] [facility] 6+ MO Branch Influenza Virus 2018-12-23 Completed [facility] .5 mL 00:00:00 [place] [facility] 6+ MO Branch Influenza Virus 2018-12-23 Completed [facility] .5 mL 00:00:00 [place] [facility] IM 6+ MO Branch Influenza Virus 2018-12-23 Completed [facility] .5 mL 00:00:00 [place] [facility] 6+ MO Branch Influenza Virus 2018-12-23 Completed [facility] .5 mL 00:00:00 [place] [facility] 6+ MO Branch Influenza Virus 2018-12-23 Completed [facility] .5 mL 00:00:00 [place] [facility] 6+ MO Branch Influenza Virus 2018-12-23 Completed [facility] .5 mL 00:00:00 [place] [facility] 6+ MO Branch Influenza Virus 2018-12-23 Completed [facility] .5 mL 00:00:00 [place] [facility] 6+ MO Branch Influenza Virus 2018-12-23 Completed [facility] of [facility] .5 mL 00:00:00 [facility] Influenza Virus 2018-12-23 Completed Universit y [facility] .5 mL 00:00:00 [facility] Influenza Virus 2018-12-23 Completed [facility]it y [facility] .5 mL 00:00:00 [facility] Influenza Virus 2018-12-23 Completed [facility]it y [facility] .5 mL 00:00:00 [facility] Influenza Virus 2018-12-23 Completed [facility]it y [facility] .5 mL 00:00:00 [facility] Influenza Virus 2018-12-23 Completed [facility]it y of [facility] .5 mL 00:00:00 [facility] Influenza Virus 2018-12-23 Completed [facility]it y [facility] .5 mL 00:00:00 [facility] Influenza Virus 2018-12-23 Completed [facility]it y [facility] .5 mL 00:00:00 [facility] Influenza Virus 2018-12-23 Completed [facility]it y of [facility] .5 mL 00:00:00 [facility] Influenza Virus 2018-12-23 Completed [facility]it y of [facility] .5 mL 00:00:00 [facility] Influenza Virus 2018-12-23 Completed [facility]it y of [facility] .5 mL 00:00:00 [facility] Influenza Virus 2018-12-23 Completed [facility]it y of [facility] .5 mL 00:00:00 [facility] Influenza Virus 2018-12-23 Completed [facility]it y of [facility] .5 mL 00:00:00 [facility] Influenza Virus 2018-12-23 Completed [facility]it y [facility] .5 mL 00:00:00 [facility] Influenza Virus 2018-12-23 Completed [facility]it y [facility] .5 mL 00:00:00 [facility] Influenza Virus 2018-12-23 Completed [facility]it y [facility] .5 mL 00:00:00 [facility] Influenza Virus 2018-12-23 Completed [facility]it y of [facility] .5 mL 00:00:00 [facility] Influenza Virus 2018-12-23 Completed [facility]it y of [facility] .5 mL 00:00:00 [facility] Influenza Virus 2018-12-23 Completed [facility]it y of [facility] .5 mL 00:00:00 [facility] Influenza Virus 2018-12-23 Completed [facility]it y of [facility] .5 mL 00:00:00 [facility] Influenza Virus 2018-12-23 Completed [facility]it y [facility] .5 mL 00:00:00 [facility] Influenza Virus 2018-12-23 Completed [facility]it y [facility] .5 mL 00:00:00 [facility] Influenza Virus 2018-12-23 Completed [facility]it y [facility] .5 mL 00:00:00 [facility] Influenza Virus 2018-12-23 Completed [facility]it y [facility] .5 mL 00:00:00 [facility] Influenza Virus 2018-12-23 Completed [facility]it y [facility] .5 mL 00:00:00 [facility] Influenza Virus 2018-12-23 Completed [facility]it y [facility] .5 mL 00:00:00 [facility] Influenza Virus 2018-12-23 Completed [facility]it y [facility] .5 mL 00:00:00 [facility] Influenza Virus 2018-12-23 Completed [facility]it y [facility] .5 mL 00:00:00 [facility] Influenza Virus 2018-12-23 Completed [facility] y [facility] .5 mL 00:00:00 [facility] Influenza Virus 2018-12-23 Completed [facility]it y [facility] .5 mL 00:00:00 [facility] Influenza Virus 2018-12-23 Completed [facility]it y [facility] .5 mL 00:00:00 [facility] Influenza Virus 2018-12-23 Completed [facility]it y [facility] .5 mL 00:00:00 [facility] Influenza Virus 2018-12-23 Completed [facility]it y [facility] .5 mL 00:00:00 [facility] Influenza Virus 2018-12-23 Completed [facility]it y [facility] .5 mL 00:00:00 [facility] Influenza Virus 2018-12-23 Completed [facility]it y [facility] .5 mL 00:00:00 [facility] Influenza Virus 2018-12-23 Completed [facility]it y of [facility] .5 mL 00:00:00 [facility] Influenza Virus 2018-12-23 Completed [facility]it y [facility] .5 mL 00:00:00 [facility] Influenza Virus 2018-12-23 Completed [facility]it y [facility] .5 mL 00:00:00 [facility] Influenza Virus 2018-12-23 Completed [facility]it y [facility] .5 mL 00:00:00 [facility] Influenza Virus 2018-12-23 Completed [facility]it y [facility] .5 mL 00:00:00 [facility] Influenza Virus 2018-12-23 Completed [facility]it y [facility] .5 mL 00:00:00 [facility] Influenza Virus 2018-12-23 Completed [facility]it y [facility] .5 mL 00:00:00 [facility] Influenza Virus 2018-12-23 Completed [facility]it y [facility] .5 mL 00:00:00 [facility] Influenza Virus 2018-12-23 Completed [facility]it y [facility] .5 mL 00:00:00 [facility] Influenza Virus 2018-12-23 Completed [facility]it y of [facility] .5 mL 00:00:00 [facility] 6+ MO Branch TDAP (ADACEL) 2018-09-14 Completed University of VACCINE 00:00:00 [facility] TDAP (ADACEL) 2018-09-14 Completed University of VACCINE 00:00:00 [facility] TDAP (ADACEL) 2018-09-14 Completed University of VACCINE 00:00:00 [facility] TDAP (ADACEL) 2018-09-14 Completed University of VACCINE 00:00:00 [facility] TDAP (ADACEL) 2018-09-14 Completed University of VACCINE 00:00:00 [facility] TDAP (ADACEL) 2018-09-14 Completed University of VACCINE 00:00:00 [facility] TDAP (ADACEL) 2018-09-14 Completed University of VACCINE 00:00:00 [facility] TDAP (ADACEL) 2018-09-14 Completed University of VACCINE 00:00:00 [facility] TDAP (ADACEL) 2018-09-14 Completed University of VACCINE 00:00:00 [facility] TDAP (ADACEL) 2018-09-14 Completed University of VACCINE 00:00:00 [facility] TDAP (ADACEL) 2018-09-14 Completed University of VACCINE 00:00:00 [facility] TDAP (ADACEL) 2018-09-14 Completed University of VACCINE 00:00:00 [facility] TDAP (ADACEL) 2018-09-14 Completed University of VACCINE 00:00:00 [facility] TDAP (ADACEL) 2018-09-14 Completed University of VACCINE 00:00:00 [facility] TDAP (ADACEL) 2018-09-14 Completed University of VACCINE 00:00:00 [facility] TDAP (ADACEL) 2018-09-14 Completed University of VACCINE 00:00:00 [facility] TDAP (ADACEL) 2018-09-14 Completed University of VACCINE 00:00:00 [facility] TDAP (ADACEL) 2018-09-14 Completed University of VACCINE 00:00:00 [facility] TDAP (ADACEL) 2018-09-14 Completed University of VACCINE 00:00:00 [facility] TDAP (ADACEL) 2018-09-14 Completed University of VACCINE 00:00:00 [facility] TDAP (ADACEL) 2018-09-14 Completed University of VACCINE 00:00:00 [facility] TDAP (ADACEL) 2018-09-14 Completed University of VACCINE 00:00:00 [facility] TDAP (ADACEL) 2018-09-14 Completed University of VACCINE 00:00:00 [facility] TDAP (ADACEL) 2018-09-14 Completed University of VACCINE 00:00:00 [facility] TDAP (ADACEL) 2018-09-14 Completed University of VACCINE 00:00:00 [facility] TDAP (ADACEL) 2018-09-14 Completed University of VACCINE 00:00:00 [facility] TDAP (ADACEL) 2018-09-14 Completed University of VACCINE 00:00:00 [facility] TDAP (ADACEL) 2018-09-14 Completed University of VACCINE 00:00:00 [facility] TDAP (ADACEL) 2018-09-14 Completed University of VACCINE 00:00:00 [facility] TDAP (ADACEL) 2018-09-14 Completed University of VACCINE 00:00:00 [facility] TDAP (ADACEL) 2018-09-14 Completed University of VACCINE 00:00:00 [facility] TDAP (ADACEL) 2018-09-14 Completed University of VACCINE 00:00:00 [facility] TDAP (ADACEL) 2018-09-14 Completed University of VACCINE 00:00:00 [facility] TDAP (ADACEL) 2018-09-14 Completed University of VACCINE 00:00:00 [facility] TDAP (ADACEL) 2018-09-14 Completed University of VACCINE 00:00:00 [facility] TDAP (ADACEL) 2018-09-14 Completed University of VACCINE 00:00:00 [facility] TDAP (ADACEL) 2018-09-14 Completed University of VACCINE 00:00:00 [facility] TDAP (ADACEL) 2018-09-14 Completed University of VACCINE 00:00:00 [facility] TDAP (ADACEL) 2018-09-14 Completed University of VACCINE 00:00:00 [facility] TDAP (ADACEL) 2018-09-14 Completed University of VACCINE 00:00:00 [facility] TDAP (ADACEL) 2018-09-14 Completed University of VACCINE 00:00:00 [facility] TDAP (ADACEL) 2018-09-14 Completed University of VACCINE 00:00:00 [facility] TDAP (ADACEL) 2018-09-14 Completed University of VACCINE 00:00:00 [facility] TDAP (ADACEL) 2018-09-14 Completed University of VACCINE 00:00:00 [facility] TDAP (ADACEL) 2018-09-14 Completed University of VACCINE 00:00:00 [facility] TDAP (ADACEL) 2018-09-14 Completed University of VACCINE 00:00:00 [facility] TDAP (ADACEL) 2018-09-14 Completed University of VACCINE 00:00:00 [facility] TDAP (ADACEL) 2018-09-14 Completed University of VACCINE 00:00:00 [facility] TDAP (ADACEL) 2018-09-14 Completed University of VACCINE 00:00:00 [facility] TDAP (ADACEL) 2018-09-14 Completed University of VACCINE 00:00:00 [facility] TDAP (ADACEL) 2018-09-14 Completed University of VACCINE 00:00:00 [facility] TDAP (ADACEL) 2018-09-14 Completed University of VACCINE 00:00:00 [facility] TDAP (ADACEL) 2018-09-14 Completed University of VACCINE 00:00:00 [facility] TDAP (ADACEL) 2018-09-14 Completed University of VACCINE 00:00:00 [facility] TDAP (ADACEL) 2018-09-14 Completed University of VACCINE 00:00:00 [facility] TDAP (ADACEL) 2018-09-14 Completed University of VACCINE 00:00:00 [facility] TDAP (ADACEL) 2018-09-14 Completed University of VACCINE 00:00:00 [facility] TDAP (ADACEL) 2018-09-14 Completed University of VACCINE 00:00:00 [facility] TDAP (ADACEL) 2018-09-14 Completed University of VACCINE 00:00:00 [facility] TDAP (ADACEL) 2018-09-14 Completed University of VACCINE 00:00:00 [facility] TDAP (ADACEL) 2018-09-14 Completed University of VACCINE 00:00:00 [facility] TDAP (ADACEL) 2018-09-14 Completed University of VACCINE 00:00:00 [facility] TDAP (ADACEL) 2018-09-14 Completed University of VACCINE 00:00:00 [facility] TDAP (ADACEL) 2018-09-14 Completed University of VACCINE 00:00:00 [facility] TDAP (ADACEL) 2018-09-14 Completed University of VACCINE 00:00:00 [facility] TDAP (ADACEL) 2018-09-14 Completed University of VACCINE 00:00:00 [facility] TDAP (ADACEL) 2018-09-14 Completed University of VACCINE 00:00:00 [facility] TDAP (ADACEL) 2018-09-14 Completed University of VACCINE 00:00:00 [facility] TDAP (ADACEL) 2018-09-14 Completed University of VACCINE 00:00:00 [facility] TDAP (ADACEL) 2018-09-14 Completed University of VACCINE 00:00:00 [facility] TDAP (ADACEL) 2018-09-14 Completed University of VACCINE 00:00:00 [facility] TDAP (ADACEL) 2018-09-14 Completed University of VACCINE 00:00:00 [facility] TDAP (ADACEL) 2018-09-14 Completed University of VACCINE 00:00:00 [facility] TDAP (ADACEL) 2018-09-14 Completed University of VACCINE 00:00:00 [facility] TDAP (ADACEL) 2018-09-14 Completed University of VACCINE 00:00:00 [facility] TDAP (ADACEL) 2018-09-14 Completed University of VACCINE 00:00:00 [facility] TDAP (ADACEL) 2018-09-14 Completed University of VACCINE 00:00:00 [facility] TDAP (ADACEL) 2018-09-14 Completed University of VACCINE 00:00:00 [facility] TDAP (ADACEL) 2018-09-14 Completed University of VACCINE 00:00:00 [facility] TDAP (ADACEL) 2018-09-14 Completed University of VACCINE 00:00:00 [facility] TDAP (ADACEL) 2018-09-14 Completed University of VACCINE 00:00:00 [facility] TDAP (ADACEL) 2018-09-14 Completed University of VACCINE 00:00:00 [facility] TDAP (ADACEL) 2018-09-14 Completed University of VACCINE 00:00:00 [facility] TDAP (ADACEL) 2018-09-14 Completed University of VACCINE 00:00:00 [facility] TDAP (ADACEL) 2018-09-14 Completed University of VACCINE 00:00:00 [facility] Vital Signs Vital Name Observation Time Observation Value Comments Source Systolic blood 2022-08-08 19:30:00 124 mm[Hg] Univer sity of pressure [facility] Diastolic blood 2022-08-08 19:30:00 80 mm[Hg] Unive rsity of [facility] Heart rate 2022-08-08 19:30:00 50 /min Universi ty [facility] Body temperature 2022-08-08 19:30:00 36.61 Darleen [facility] rate 2022-08-08 19:30:00 17 /min [facility] Body height 2022-08-08 19:30:00 165.1 cm Universi ty [facility] Body weight 2022-08-08 19:30:00 56.427 kg Universi ty [facility] BMI 2022-08-08 19:30:00 20.70 kg/m2 Universi ty [facility] Oxygen saturation in 2022-08-08 19:30:00 100 /min University of Arterial blood by [facility] Pulse oximetry Branch Systolic blood 2022-08-04 18:54:00 102 mm[Hg] Univer sity of pressure [facility] Diastolic blood 2022-08-04 18:54:00 70 mm[Hg] Unive rsity of pressure [facility] Heart rate 2022-08-04 18:54:00 76 /min Universi ty [facility] Body height 2022-08-04 18:54:00 165.1 cm Universi ty [facility] Body weight 2022-08-04 18:54:00 56.7 kg Universi ty [facility] BMI 2022-08-04 18:54:00 20.80 kg/m2 Universi ty [facility] Systolic blood 2022-06-09 13:23:00 100 mm[Hg] Univer sity of pressure [facility] Diastolic blood 2022-06-09 13:23:00 77 mm[Hg] Unive rsity of pressure [facility] Heart rate 2022-06-09 13:23:00 73 /min Universi ty [facility] Body temperature 2022-06-09 13:23:00 36.61 Darleen Univ ersity of [facility] Respiratory rate 2022-06-09 13:23:00 20 /min Univ ersity of [facility] Body height 2022-06-09 13:23:00 165.1 cm [facility] [place] [facility] [place] Body weight 2022-06-09 13:23:00 61.009 kg Universi ty [facility] BMI 2022-06-09 13:23:00 22.38 kg/m2 [facility]i ty [facility] Oxygen saturation in 2022-06-09 13:23:00 100 /min [facility] Arterial blood by [facility] Pulse oximetry Branch Systolic blood 2022-04-30 16:02:00 108 mm[Hg] Univer [facility]ity of pressure [facility] [place] Diastolic blood 2022-04-30 16:02:00 76 mm[Hg] Unive rsity of pressure [facility] Heart rate 2022-04-30 16:02:00 69 /min Universi ty [facility] Body temperature 2022-04-30 16:02:00 36.78 Darleen Univ ersity of [facility] Respiratory rate 2022-04-30 16:02:00 18 /min Univ ersity of [facility] Body height 2022-04-30 16:02:00 165.1 cm [facility]i ty [facility] Body weight 2022-04-30 16:02:00 54.885 kg [facility]i ty [facility] [place] [facility] [place] BMI 2022-04-30 16:02:00 20.14 kg/m2 [facility] Systolic blood 2022-03-11 03:49:00 94 mm[Hg] Univer sity of pressure [facility] Diastolic blood 2022-03-11 03:49:00 66 mm[Hg] Unive rsity of [facility] Heart rate 2022-03-11 03:49:00 68 /min [facility] Body temperature 2022-03-11 03:49:00 36.22 Darleen [facility] Res[facility] rate 2022-03-11 03:49:00 16 /min [facility] Oxygen saturation in 2022-03-11 03:49:00 97 /min [facility] Arterial blood by [facility] Pulse oximetry [place] Body height 2022-03-10 23:54:00 165.1 cm [facility] Body weight 2022-03-10 23:54:00 56.7 kg [facility] BMI 2022-03-10 23:54:00 20.80 kg/m2 [facility] Systolic blood 2022-01-27 16:15:00 103 mm[Hg] Univer sity of [facility] Diastolic blood 2022-01-27 16:15:00 74 mm[Hg] Unive rsity of [facility] Heart rate 2022-01-27 16:15:00 93 /min [facility] Body weight 2022-01-27 16:15:00 57.607 kg [facility] BMI 2022-01-27 16:15:00 21.13 kg/m2 [facility] Procedures Procedure Date / Time Performing Clinician Source Performed HEPATITIS B SURFACE 2022-06-26 15:45:00 Teo Ingram [facility] HIV 1/2 AG-AB WITH REFLEX 2022-06-26 15:45:00 [facility] ULTRASOUND BREAST 2022-06-26 14:44:24 Teo Ingram [facility] COMPLETE LEFT [facility] Branch BI DIAGNOSTIC 2022-06-26 14:00:00 Teo Ingram [facility] [facility] [place] TOMOSYNTHESIS LEFT Medical Branc h XR CHEST 1 VW 2022-06-09 14:21:00 Eric Fernandez [facility] CT CERVICAL SPINE WO 2022-06-09 14:18:00 Eric Fernandez [facility] CONTRAST Gema [facility] INSURANCE CORRESPONDENCE 2022-06-08 05:01:00 [facility] Name [facility] CONSENT/REFUSAL FOR 2022-06-03 16:39:37 Doctor [facility] DIAGNOSIS AND TREATMENT [facility] DME/SUPPLY JUSTIFICATION 2022-05-04 06:01:00 Doctor Alyssa [facility] EXTERNAL PROVIDER RECORDS 2022-04-03 06:01:00 Doctor Shah [facility] Name [facility] XR WRIST <3 VW RIGHT 2022-03-11 00:49:27 Singer [facility] XR WRIST 3+ VW LEFT 2022-03-11 00:49:27 Singer Darryn [facility] COVID-19 (ID NOW RAPID 2022-03-10 23:52:00 Singer Darryn [facility] TESTING) [facility] POCT TEST 2022-03-10 23:46:00 Darryn Owusu [facility] COMP. METABOLIC PANEL 2022-03-10 23:45:00 Singer [facility] ([id number]) [facility] SALICYLATE 2022-03-10 23:45[facility] 2022-03-10 23:45:00 [facility] CBC WITH DIFF 2022-03-10 23:45:00 Owusu, [facility] URINALYSIS 2022-03-10 23:45:00 [facility] URINE DRUG (IMMUNOASSAY) 2022-03-10 23:45:00 Owusu, Darryn [facility] DRUG [facility] SCREEN W/O REFLEX FLU VACC (), 6 2022-01-27 16:36:45 Arik Benz [facility] MO-64 YRS, .5ML, IM, QUAD [facility] (FLUCELVAX) ASSIGNMENT OF BENEFITS 2022-01-27 16:03:32 Doctor Unassigned, Un [facility] POCT URINALYSIS 2022-01-27 00:00:00 Demar [facility] AUTHORIZATION FOR RELEASE 2022-01-08 05:01:00 Doctor Alyssa, [facility] AUTHORIZATION FOR RELEASE 2021-12-23 05:01:00 Doctor Anaisssigned, [facility] Encounters Start End Encounter Admission Attending Care Care Encounter Source Date/Time Date/Time Type Type Clinicians Facility Department ID 2021-05-01 Outpatient MDA MDA [id number] 17:26:47 Anderso n 2021-02-26 Outpatient P [facility] [id number] Univers 18:38:[address] [facility] 2021-01-27 Outpatient P [facility] [id number] Univers 20:41:[address] [facility] 2021-01-27 Emergency [facility] [id number] Univers 20:40:[address] [facility] 2021-01-27 Emergency [facility] [id number] Univers 15:33:[address] [facility] 2021-01-27 Outpatient U [facility] [id number] Univers 01:16:[address] [facility] 2021-01-27 Emergency [facility] [id number] Univers 00:53:[address] [facility] 2021-01-26 Emergency [facility] [id number] Univers 22:49:[address] [facility] 2021-01-25 Emergency [facility] [id number] Univers 21:41:[address] [facility] 2021-01-25 [facility] [id number] Univers 13:01:[address] [facility] 2021-01-25 [place] [id number] Univers 13:01:[address] [facility] 2021-01-25 [facility] [id number] Univers 12:47:10 ALY ity [facility] 2021-01-24 Outpatient R SHELBY, [facility] [id number] Univers 15:57:25 ALY [facility] 2021-01-24 Emergency [facility] [id number] Univers 10:32:11 ity [facility] 2021-01-24 Emergency [facility] [id number] Univers 10:16:12 ity [facility] 2021-01-23 Emergency [facility] [id number] Univers 21:15:49 ity [facility] 2022-12-08 2022-12-08 Outpatient Campos BENZ [facility] [id number] Univers 16:15:00 16:15:00 ARIK ity [facility] 2022-08-08 2022-08-08 Nurse Nurse, [facility] [id number] Univers 14:30:00 14:50:00 Visit Unknown, [facility] [id number] ity of [place] [id number] [place] as DONTE?BLEA [id number] [facility] [address] MEDICAL OFFICE [facility] 2022-08-08 2022-08-08 Outpatient Campos INGRAM [facility] [id number] Univers 14:30:00 14:30:00 TEO [facility] 2022-08-04 2022-08-04 Office [facility] [id number] Univers 14:30:00 15:00:00 Visit [facility] [id number] it y of [facility] [id number] [place] as DONTE?BLEA [id number] [address] MEDICAL OFFICE [facility] 2022-08-04 2022-08-04 Outpatient Campos BENZ [facility] [id number] Univers 14:30:00 14:18:19 ARIK y [facility] 2022-07-30 2022-07-30 RefJUAN Stein [id number] Univers 00:00:00 00:00:00 Abril GARAY [id number] it y of [facility] [id number] [place] as [id number] [address] 2022-07-26 2022-07-26 [facility] Center 1.2.840.114 [id number] [facility] 00:00:00 00:00:00 [facility] 350.1.13.10 it y of [place] 4.2.7.2.686 [place] as DONTE?BLEA [phone] Ca dread [address] MEDICAL OFFICE BUILDING 2022-07-22 2022-07-22 [facility] 1.2.840.114 102 [id number] Univers 00:00:00 00:00:00 Arik HEALTH 350.1.13.10 it y of Jonathan [place] 4.2.7.2.686 Henry as DONTE?BLEA [phone] Ca dread [address] OFFICE [facility] 2022-06-26 2022-06-26 [facility] 1.2.840.114 101 [id number] Univers 08:19:16 23:59:00 Encounter Teo SPECIALTY 350.1.13.10 it[place] [phone] Ca nancydhruv ARZOLALeonard 800 [facility] 2022-06-26 2022-06-26 Customer Insight Analyst Lab, [facility] 1.2.840.114 10 [id number] Univers 10:30:00 10:45:00 Visit Teo Ingram SPECIALTY 350.1.13.10 it[place] [phone] Ca nancydhruv ARZOLALeonard 353 [facility] 2022-06-26 2022-06-26 Outpatient R NATALY [facility] [id number] Univers 08:18:41 08:18:[address] [facility] 2022-06-26 2022-06-26 [facility] 1.2.840.114 101 [id number] Univers 08:00:00 08:18:00 Encounter Teo SPECIALTY 350.1.13.10 ity of [place].2.[place] [phone] Ca nancydhruv ARZOLALeonard [address] [place] [address] 2022-06-26 2022-06-26 Case KATHERINE Ingram 1.2.605.030 5305 [id number] Univers 00:00:00 00:00:00 Management Teo PEDIATRIC 350.1.13.10 it[place] of [place] [phone] [address] 2022-06-25 2022-06-25 Patient Demar [facility] 1.2.840.114 [id number] Univers 00:00:00 00:00:00 Secure Msg Arik HEALTH 350.1.13.10 ity of [place] 4.2.7.2.686 [place] as DONTE?BLEA [phone] Me dical NGOZI [address] [place] [address] MEDICAL OFFICE BUILDING 2022-06-25 2022-06-25 Patient [facility] 1.2.840.114 [id number] Univers 00:00:00 00:00:00 Secure Msg Arik HEALTH 350.1.13.10 ity of [place] 4.2.7.2.686 Henry as DONTE?BLEA [phone] Ca dical CAROLYNN[address] OFFICE BUILDING 2022-06-25 2022-06-25 Patient [facility] 1.2.893.956 [id number] [id number] Univers 00:00:00 00:00:00 Secure Msg Teo TREVIZO 350.1.13.10 ity of [place].2.7.2.686 [place] [phone] Ca dical NAL [address] [place] [address] 2022-06-22 2022-06-22 Refill [facility] 1.2.840.114 [id number] Univers 00:00:00 00:00:00 [facility] 350.1.13.10 it y of [place] 4.2.7.2.686 [place] as DONTE?BLEA [phone] Ca dical NGOZI [address] [place] [address] OFFICE BUILDING 2022-06-22 2022-06-22 Telephone [facility] 1.2.840.114 10 [id number] Univers 00:00:00 00:00:00 Teo TREVIZO 350.1.13.10 i ty of [place].2.7.2.686 [place] [phone] [address] 2022-06-19 2022-06-19 Telephone Jaxontopher [facility] 1.2.840.114 10 [id number] Univers 00:00:00 00:00:00 Teo JOSELINE 350.1.13.10 i ty of [place] 4.2.7.2.686 [place] [phone] [address] 2022-06-12 2022-06-12 Telephone [facility] 1.2.311.110 [id number] [id number] Univers 00:00:00 00:00:00 Elle Candace [place] 350.1.13.10 ity of [place] 4.2.7.2.686 [place] [facility] [phone] [address] 2022-06-10 2022-06-10 Patient Doctor [facility] 1.2.840.114 [id number] Univers 00:00:00 00:00:00 Secure Msg Unassigned, [facility] 350.1.13.10 ity of [place] JOSELINE 4.2.7.2.686 Henry as DONTE?BLEA [phone] [address] OFFICE [facility] 2022-06-09 2022-06-09 Emergency X AUFDERIDE [facility] ERT [id number] Univers 08:29:00 10:11:00 , ERIC ity of [facility] 2022-06-09 2022-06-09 [facility] 1.2.840.114 [id number] Univers 08:29:00 10:11:00 , Eric TREVIZO 350.1.13.10 i ty of [place].2.7.2.686 [place] [phone] [address] 2022-06-09 2022-06-09 Telephone [facility] 1.2.840.114 101 [id number] Univers 00:00:00 00:00:00 [facility] 350.1.13.10 it y of Jonathan JOSE[place] 4.2.7.2.686 [place] as DONTE?BLEA [phone] [address] OFFICE [facility] 2022-06-09 2022-06-09 Refill [facility] 1.2.840.114 [id number] Univers 00:00:00 00:00:00 [facility] HEALTH 350.1.13.10 it y of [place] 4.2.7.2.686 Henry as DONTE?BLEA [phone] [address] MEDICAL OFFICE [facility] 2022-06-08 2022-06-08 Orders Doctor JUAN 1.2.840.114 [id number] Univers 00:00:00 00:00:00 Only Unassigned, SHAYY 350.1.13.10 ity of [place] [facility] 4.2.7.2.686 Henry as [phone] [address] 2022-06-05 2022-06-05 Outpatient R LEXIE [facility] [id number] Univers 11:00:00 11:00:[address] [facility] 2022-06-05 2022-06-05 Telephone [facility] 1.2.840.114 101 [id number] Univers 00:00:00 00:00:00 [facility] 350.1.13.10 it y of [place] 4.2.7.2.686 Henry as DONTE?BLEA [phone] [address] OFFICE [facility] 2022-06-04 2022-06-04 Telephone [facility] 1.2.840.114 101 [id number] Univers 00:00:00 00:00:00 [facility] 350.1.13.10 it y of [place] 4.2.7.2.686 Henry as DONTE?BLEA [id number] [address] OFFICE [facility] 2022-06-04 2022-06-04 Patient [facility] 1.2.840.114 [id number] Univers 00:00:00 00:00:00 Secure Msg [facility] HEALTH 350.1.13.10 ity of [place] 4.2.7.2.686 Henry as DONTE?BLEA [phone] [address] OFFICE [facility] 2022-06-03 2022-06-03 Outpatient R NATALY [facility] [id number] Univers 10:40:13 23:59:[address] [facility] 2022-06-03 2022-06-03 [facility] 1.2.840.114 100 [id number] Univers 10:40:00 23:59:00 Encounter Teo TREVIZO 350.1.13.10 ity of [facility] 4.2.7.2.686 [place] [phone] [facility] [address] 2022-06-03 2022-06-03 Patient Doctor [facility] 1.2.840.114 [id number] Univers 00:00:00 00:00:00 Secure Msg Unassigned, [place] 350.1.13.10 ity of [place] 4.2.7.2.686 [place] [facility] [phone] [facility] 134 [facility] 2022-06-03 2022-06-03 Orders Doctor JUAN 1.2.840.114 [id number] 003 Univers 00:00:00 00:00:00 Only Unassigned, SHAYY 350.1.13.10 ity of [place] [facility] 4.2.7.2.686 Henry as [phone] [facility] [address] 2022-05-25 2022-05-25 Patient [facility] 1.2.840.114 [id number] Univers 00:00:00 00:00:00 Secure Msg Arik HEALTH 350.1.13.10 ity of Edward [facility] 4.2.7.2.686 Henry as DONTE?BLEA [phone] [facility] [address] MEDICAL OFFICE BUILDING 2022-05-25 2022-05-25 Telephone [facility] 1.2.840.114 101 [id number] Univers 00:00:00 00:00:00 Arik HEALTH 350.1.13.10 it y of Edward [facility] 4.2.7.2.686 Henry as DONTE?BLEA [phone] [facility] 044 [facility] OFFICE [facility] 2022-05-04 2022-05-04 Orders Doctor JUAN 1.2.840.114 [id number] Univers 00:00:00 00:00:00 Only Unassigned, SHAYY 350.1.13.10 ity of [place] HOSPITAL 4.2.7.2.686 Henry as [id number] [address] 2022-04-30 2022-04-30 [facility] [id number] Univers 09:45:00 10:48:21 TEO [facility] 2022-04-30 2022-04-30 Office [facility] 1.2.517.365 [id number] [id number] Univers 09:45:00 10:48:21 Visit Teo TREVIZO 350.1.13.10 i ty of [place] 4.2.7.2.686 [place] PROFESS[place] [phone] Ca dread [address] 2022-04-30 2022-04-30 Outpatient R NATALY [facility] [id number] Univers 09:45:00 09:45:00 [facility] 2022-04-29 2022-04-29 [facility] 1.2.840.114 [id number] Univers 00:00:00 00:00:00 [facility] 350.1.13.10 it y of [place] 4.2.7.2.686 Henry as DONTE?BLEA [phone] Ca dic[address] OFFICE [facility] 2022-04-28 2022-04-28 [facility] 1.2.840.114 100 [id number] Univers 00:00:00 00:00:00 [facility] 350.1.13.10 it y of [place] 4.2.7.2.686 Henry as DONTE?BLEA [phone] Ca dical [address] OFFICE [facility] 2022-04-24 2022-04-24 [facility] 1.2.840.114 [id number] [id number] Univers 00:00:00 00:00:00 [facility] HEALTH 350.1.13.10 it y of [place] 4.2.7.2.686 Henry as DONTE?BLEA [phone] Ca dic[address] OFFICE [facility] 2022-04-24 2022-04-24 [facility] 1.2.840.114 [id number] Univers 00:00:00 00:00:00 [facility] 350.1.13.10 it y of [place] 4.2.7.2.686 Henry as DONTE?BLEA [phone] Ca dical NGOZI [address] [place] [address] OFFICE [facility] 2022-04-24 2022-04-24 Patient [facility] 1.2.840.114 [id number] Univers 00:00:00 00:00:00 Secure Msg Emilia [facility] 350.1.13.10 ity of [place] 4.2.7.2.686 Henry as DONTE?BLEA [phone] Ca dread MELVIN [address] [place] [address] OFFICE [facility] 2022-04-24 2022-04-24 [facility] 1.2.840.114 [id number] [facility] 00:00:00 00:00:00 [facility] 350.1.13.10 it y of [place] 4.2.7.2.686 Henry as DONTE?BLEA [phone] Ca dread MELVIN [address] [place] [address] 2022-04-16 2022-04-16 Telephone [facility] 1.2.840.114 [id number] Univers 00:00:00 00:00:00 [facility] 350.1.13.10 it y of [place] 4.2.7.2.686 Henry as DONTE?BLEA [phone] Ca dread MELVIN [address] [place] [address] 2022-04-14 2022-04-14 Telephone [facility] 1.2.840.114 [id number] Univers 00:00:00 00:00:00 [facility] 350.1.13.10 it y of [place] 4.2.7.2.686 Henry as DONTE?BLEA [phone] Ca dread MELVIN [address] [place] [address] 2022-04-06 2022-04-06 [facility] 1.2.840.114 [id number] Univers 00:00:00 00:00:00 [facility] 350.1.13.10 it y of [place] 4.2.7.2.686 Henry as DONTE?BLEA [phone] [address] MEDICAL OFFICE [facility] 2022-04-06 2022-04-06 [facility] 1.2.840.114 [id number] Univers 00:00:00 00:00:00 [facility] HEALTH 350.1.13.10 it y of [place] 4.2.7.2.686 Ehnry as DONTE?BLEA [phone] [address] MEDICAL OFFICE [facility] 2022-04-06 2022-04-06 [facility] 1.2.840.114 [id number] Univers 00:00:00 00:00:00 [facility] HEALTH 350.1.13.10 it y of [place] 4.2.7.2.686 Henry as DONTE?BLEA [id number] [address] OFFICE [facility] 2022-04-06 2022-04-06 [facility] 1.2.840.114 [id number] Univers 00:00:00 00:00:00 [facility] 350.1.13.10 it y of [place] 4.2.7.2.686 Henry as DONTE?BLEA [phone] [address] OFFICE [facility] 2022-04-03 2022-04-03 Orders Doctor JUAN 1.2.840.114 [id number] Univers 00:00:00 00:00:00 Only Unassigned, SHAYY 350.1.13.10 ity of [place] HOSPITAL 4.2.7.2.686 Henry as [phone] [address] 2022-03-29 2022-03-29 [facility] 1.2.840.114 [id number] Univers 00:00:00 00:00:00 [facility] HEALTH 350.1.13.10 it y of [place] 4.2.7.2.686 Henry as DONTE?BLEA [id number] [address] OFFICE [facility] 2022-03-21 2022-03-21 [facility] 1.2.840.114 [id number] Univers 00:00:00 00:00:00 [facility] HEALTH 350.1.13.10 it y of [place] 4.2.7.2.686 Henry as DONTE?BLEA [phone] [address] MEDICAL OFFICE [facility] 2022-03-17 2022-03-17 Patient [facility] 1.2.840.114 [id number] Univers 00:00:00 00:00:00 Secure Msg Emilia [facility] 350.1.13.10 ity of [place] 4.2.7.2.686 Henry as DONTE?BLEA [id number] [address] MEDICAL OFFICE [facility] 2022-03-16 2022-03-16 [facility] 1.2.840.114 [id number] Univers 00:00:00 00:00:00 [facility] 350.1.13.10 it y of [place] 4.2.7.2.686 Henry as DONTE?BLEA [phone] [address] OFFICE [facility] 2022-03-16 2022-03-16 Refill [facility] 1.2.840.114 [id number] 002 Univers 00:00:00 00:00:00 [facility] 350.1.13.10 it y of [place] 4.2.7.2.686 Henry as DOTNE?BLEA [id number] [address] OFFICE [facility] 2022-03-16 2022-03-16 [facility] 1.2.840.114 [id number] Univers 00:00:00 00:00:00 Secure [facility] 350.1.13.10 ity of [place] 4.2.7.2.686 Henry as DONTE?BLEA [id number] [address] OFFICE [facility] 2022-03-13 2022-03-13 Patient [facility] 1.2.840.114 [id number] Univers 00:00:00 00:00:00 Secure Msg [facility] 350.1.13.10 ity of [place] 4.2.7.2.686 Henry as DONTE?BLEA [phone] [address] OFFICE [facility] 2022-03-132022-03-13 Telephone [facility] 1.2.840.114 [id number] Univers 00:00:00 00:00:00 [facility] 350.1.13.10 it y of Edward [facility] 4.2.7.2.686 Henry as DONTE?BLEA [phone] [address] MEDICAL OFFICE [facility] 2022-03-13 2022-03-13 [facility] 1.2.840.114 [id number] Univers 00:00:00 00:00:00 [facility] 350.1.13.10 it y of Edward [facility] 4.2.7.2.686 Henry as DONTE?BLEA [phone] [address] 2022-03-11 2022-03-11 Letter JUAN Ca 1.2.840.114 [id number] Univers 00:00:00 00:00:00 (Out) Helen SHAYY 350.1.13.10 it y of [facility] 4.2.7.2.686 Henry as [phone] [address] 2022-03-10 2022-03-10 Emergency X [facility] ERT [id number] Univers 17:24:00 23:18:00 KEITH caleb [facility] 2022-03-10 2022-03-10 Emergency Darryn Owusu [facility] 1.2.840. 114 [id number] Univers 17:24:00 23:18:00 Keith Yi 350.1.13.10 ity of [place] 4.2.7.2.686 [place] [facility] [phone] [address] 2022-03-10 2022-03-10 [facility] 1.2.840.114 [id number] Univers 00:00:00 00:00:00 [facility] 350.1.13.10 it y of [place] 4.2.7.2.686 Henry as DONTE?BLEA [id number] [address] OFFICE [facility] 2022-02-23 2022-02-23 [facility] 1.2.840.114 [id number] Univers 00:00:00 00:00:00 [facility] 350.1.13.10 it y of [place] 4.2.7.2.686 Henry as DONTE?BLEA [phone] [facility] MELVIN [address] [place] [address] MEDICAL OFFICE [facility] 2022-01-27 2022-01-27 Outpatient R [facility] DORAL [id number] Univers 11:30:00 12:50:[address] [facility] 2022-01-27 2022-01-27 Office [facility] 1.2.840.114 [id number] Univers 11:30:00 12:50:55 Visit [facility] 350.1.13.10 it y of [place] 4.2.7.2.686 Henry as DONTE?BLEA [id number] [address] OFFICE [facility] 2022-01-27 2022-01-27 Orders Doctor JUAN 1.2.840.114 [id number] Univers 00:00:00 00:00:00 Only Unassigned, SHAYY 350.1.13.10 ity of [place] [facility] 4.2.7.2.686 Henry as [phone] [address] 2022-01-26 2022-01-26 Outpatient R [facility] [id number] Univers 13:00:00 13:00:[address] [facility] 2022-01-26 2022-01-26 Patient [facility] 1.2.840.114 [id number] Univers 00:00:00 00:00:00 Secure Msg Arik [place] 350.1.13.10 ity of [place] 4.2.7.2.686 [place] PROFESS[place] [phone] Ca dread [address] 2022-01-26 2022-01-26 Telephone [facility] 1.2.840.114 [id number] Univers 00:00:00 00:00:00 [facility] 350.1.13.10 it y of [place] 4.2.7.2.686 Henry as DONTE?BLEA [phone] Ca dicdhruv MELVIN [address] [place] [address] MEDICAL OFFICE [facility] 2022-01-23 2022-01-23 [facility] 1.2.840.114 [id number] Univers 00:00:00 00:00:00 Arik HEALTH 350.1.13.10 it y of [place] 4.2.7.2.686 Henry as DONTE?BLEA [id number] Ca dical CAROLYNNEY 044 [facility] OFFICE [facility] 2022-01-22 2022-01-22 Patient [facility] 1.2.840.114 [id number] Univers 00:00:00 00:00:00 Secure Msg Arik [facility] 350.1.13.10 ity of [place] 4.2.7.2.686 [place] LAZARO [phone] Ca dread COTE [address] [facility] 2022-01-20 2022-01-20 [facility] 1.2.840.114 [id number] Univers 00:00:00 00:00:00 [facility] 350.1.13.10 it y of [place] 4.2.7.2.686 Henry as DONTE?BLEA [phone] Ca dical NGOZI [address] [place] [address] OFFICE [facility] 2022-01-19 2022-01-19 [facility] 1.2.840.114 [id number] Univers 00:00:00 00:00:00 [facility] 350.1.13.10 it y of [place] 4.2.7.2.686 Henry as DONTE?BLEA [phone] Ca dical NGOZI [address] [place] [address] OFFICE [facility] 2022-01-19 2022-01-19 Patient [facility] 1.2.840.114 [id number] Univers 00:00:00 00:00:00 Secure Msg [facility] 350.1.13.10 ity of [place] 4.2.7.2.686 Henry as DONTE?BLEA [phone] Ca dical KNEY [address] [place] [address] OFFICE [facility] 2022-01-08 2022-01-08 [facility]ie [facility] 1.2.040.149 [id number] Univers 00:00:00 00:00:00 Onel HEALTH 350.1.13.10 it y of [place] 4.2.7.2.686 Henry as DONTE?BLEA [id number] [address] OFFICE [facility] 2022-01-08 2022-01-08 Orders Doctor JUAN 1.2.840.114 [id number] Univers 00:00:00 00:00:00 Only Unassigned, SHAYY 350.1.13.10 ity of [place] HOSPITAL 4.2.7.2.686 Henry as [phone] [address] 2021-12-23 2021-12-23 Telephone [facility] 1.2.840.114 [id number] Univers 00:00:00 00:00:00 Arik HEALTH 350.1.13.10 it y of [place] 4.2.7.2.686 Henry as DONTE?BLEA [phone] [address] 2021-12-23 2021-12-23 Orders Doctor JUAN 1.2.840.114 [id number] Univers 00:00:00 00:00:00 Only Unassigned, SHAYY 350.1.13.10 ity of [place] HOSPITAL 4.2.7.2.686 Henry as [phone] [address] 2021-12-22 2021-12-22 Refill [facility] 1.2.840.114 [id number] Univers 00:00:00 00:00:00 Arik HEALTH 350.1.13.10 it y of [place] 4.2.7.2.686 Henry as DONTE?BLEA [phone] [address] 2021-12-22 2021-12-22 Telephone [facility] 1.2.840.114 [id number] Univers 00:00:00 00:00:00 Arik HEALTH 350.1.13.10 it y of [place] 4.2.7.2.686 Henry as DONTE?BLEA [id number] [address] 2021-12-22 2021-12-22 Patient [facility] 1.2.840.114 [id number] Univers 00:00:00 00:00:00 Secure Msg [facility] 350.1.13.10 ity of [place] 4.2.7.2.686 Henry as DONTE?BLEA [phone] [address] MEDICAL OFFICE [facility] 2021-12-04 2021-12-04 [facility] 1.2.840.114 [id number] Univers 00:00:00 00:00:00 Arik HEALTH 350.1.13.10 it y of [place] 4.2.7.2.686 Henry as DONTE?BLEA [id number] [address] OFFICE [facility] 2021-11-26 2021-11-26 Outpatient R KIZZY SANTOS [facility] [id number] Univers 13:20:00 16:16:11 KIZZY SANTOS [facility] 2021-11-26 2021-11-26 Office [facility] 1.2.840.114 [id number] Univers 13:20:00 16:16:11 Visit MULTISPEC 350.1.13.10 ity of [id number] [id number] [address] [facility] 2021-11-26 2021-11-26 Outpatient R KIZZY SANTOS [facility] [id number] Univers 13:20:00 16:16:11 KIZZY SANTOS [facility] 2021-11-26 2021-11-26 Outpatient R KIZZY SANTOS [facility] [id number] Univers 13:20:00 13:20:00 KIZZY SANTOS [facility] 2021-11-26 2021-11-26 [facility] [id number] Univers 00:00:00 00:00:00 Arik HEALTH [id number] it y of Edward [place] [id number] [place] as DONTE?BLEA [phone] [address] MEDICAL OFFICE [facility] 2021-11-25 2021-11-25 Emergency X REECE, [facility] ERT [id number] Univers 14:54:00 15:38:00 CHRISTOPHER it y of [facility] 2021-11-25 2021-11-25 Emergency [facility] [id number] Univers 14:54:00 15:38:00 Christbryant TREVIZO [id number] ity [id number] [phone] [address] 2021-11-25 2021-11-25 Telephone [facility] [id number] Univers 00:00:00 00:00:00 [facility] [id number] it y of [place] [id number] [place] as DONTE?BLEA [phone] [address] MEDICAL OFFICE BUILDING 2021-11-25 2021-11-25 Patient [facility] [id number] Univers 00:00:00 00:00:00 Secure Msg [facility] [id number] ity of [facility] [id number] [place] as DONTE?BLEA [phone] [address] MEDICAL OFFICE BUILDING 2021-11-18 2021-11-18 Outpatient R DEMAR [facility] [id number] Univers 14:00:00 14:24:37 ARIK [facility] 2021-11-18 2021-11-18 Office [facility] [id number] Univers 14:00:00 14:15:00 Visit [facility] [id number] [facility] [id number] [place] DONTE?BLEA [phone] [address] MEDICAL OFFICE BUILDING 2021-11-18 2021-11-18 Outpatient R DEMAR [facility] [id number] Univers 14:00:00 14:00:00 ARIK [facility] 2021-11-11 2021-11-11 Outpatient R SOLOMON [facility] [id number] Univers 13:30:00 13:30:00 [facility] [place] 2021-11-03 2021-11-03 [facility] 1.2.840.114 [id number] Univers 00:00:00 00:00:00 [facility] 350.1.13.10 it y of [place] 4.2.7.2.686 [place] as DONTE?BLEA [phone] [facility] [address] 2021-10-27 2021-10-27 Patient [facility] 1.2.840.114 [id number] Univers 00:00:00 00:00:00 Secure Msg Emilia [facility] 350.1.13.10 ity of [place] 4.2.7.2.686 [place] as DONTE?BLEA [phone] [address] 2021-10-15 2021-10-15 [facility] 1.2.840.114 [id number] Univers 00:00:00 00:00:00 Arik [place] 350.1.13.10 i ty of [place] [phone] [address] 2021-10-14 2021-10-14 Outpatient R SOLOMON [facility] [id number] Univers 14:00:00 14:00:00 OLIVA leonard [facility] 2021-10-09 2021-10-09 [facility] 1.2.840.114 [id number] Univers 00:00:00 00:00:00 [facility] 350.1.13.10 it y of [place] 4.2.7.2.686 Henry as DONTE?BLEA [phone] [address] 2021-10-08 2021-10-08 [facility] 1.2.840.114 [id number] Univers 00:00:00 00:00:00 [facility] 350.1.13.10 it y of [place] 4.2.7.2.686 Henry as DONTE?BLEA [phone] [address] 2021-10-07 2021-10-07 [facility] 1.2.840.114 [id number] Univers 00:00:00 00:00:00 [facility] 350.1.13.10 it y of [place] 4.2.7.2.686 Henry as DONTE?BLEA [phone] Ca dread MELVIN [address] MEDICAL OFFICE [facility] 2021-10-02 2021-10-02 [facility] 1.2.840.114 [id number] Univers 00:00:00 00:00:00 [facility] 350.1.13.10 it y of [place] 4.2.7.2.686 Henry as DONTE?BLEA [phone] Ca dread MELVIN 044 [facility] OFFICE [facility] 2021-09-18 2021-09-18 Outpatient Cam[facility] [id number] Univers 13:13:16 23:59:00 CARMEN ellis [facility] 2021-09-18 2021-09-18 Office [facility] 1.2.840.114 [id number] Univers 14:30:00 15:00:00 Visit [facility] 350.1.13.10 it y of [place] 4.2.7.2.686 Henry as DONTE?BLEA [phone] Ca dread MELVIN 198 [facility] OFFICE [facility] 2021-09-18 2021-09-18 Outpatient Campos MCCLAIN [facility] [id number] Univers 14:30:00 14:03:55 CARMEN ellis [facility] 2021-09-18 2021-09-18 Outpatient Campos MCCLAIN [facility] [id number] Univers 14:30:00 14:03:55 CARMEN ellis [facility] 2021-09-18 2021-09-18 Outpatient Campos HOLLOWAY [facility] [id number] Univers 11:00:00 11:00:00 OLYA ellis [facility] 2021-09-18 2021-09-18 Outpatient Campos HOLLOWAY [facility] [id number] Univers 11:00:00 11:00:00 OLYA ellis [facility] 2021-09-17 2021-09-17 [facility] 1.2.840.114 [id number] Univers 00:00:00 00:00:00 Secure Msg Arik HEALTH 350.1.13.10 ity of [place] 4.2.7.2.686 Henry as DONTE?BLEA [id number] [address] OFFICE [facility] 2021-09-12 2021-09-12 [facility] 1.2.840.114 [id number] Univers 00:00:00 00:00:00 Arik HEALTH 350.1.13.10 it y of [place] 4.2.7.2.686 Henry as DONTE?BLEA [phone] [address] 2021-09-11 2021-09-11 Outpatient R SOLOMON [facility] [id number] Univers 14:00:00 14:00:00 [facility] 2021-09-11 2021-09-11 Outpatient R SOLOMON [facility] [id number] Univers 14:00:00 14:00:00 [facility] 2021-09-11 2021-09-11 [facility] 1.2.840.114 [id number] Univers 00:00:00 00:00:00 [facility] HEALTH 350.1.13.10 it y of [place] 4.2.7.2.686 Henry as DONTE?BLEA [id number] [address] 2021-09-11 2021-09-11 [facility] 1.2.840.114 [id number] Univers 00:00:00 00:00:00 Arik HEALTH 350.1.13.10 it y of [place] 4.2.7.2.686 [place] as DONTE?BLEA [id number] [address] OFFICE [facility] 2021-09-10 2021-09-10 Outpatient Campos HOLLOWAY [facility] [id number] Univers 15:00:00 15:00:00 OLYA leonard [facility] 2021-09-10 2021-09-10 Outpatient Campos [facility] [id number] Univers 15:00:00 15:00:00 OLYA leonard [facility] 2021-09-03 2021-09-03 Outpatient R NATALY [facility] [id number] Univers 13:30:00 13:30:00 TEO leonard [facility] 2021-08-26 2021-08-26 Customer Insight Analyst Lab, Ang - Db [facility] 1.2.840.1 14 [id number] Univers 14:00:00 14:15:00 Visit Arik Benz steven [facility] 350.1.13 .10 ity of [place] 4.2.7.2.686 Henry as DONTE?BLEA [phone] Ca [facility] 353 [facility] OFFICE [facility] 2021-08-26 2021-08-26 Office Demar [facility] 1.2.840.114 [id number] Univers 13:15:00 14:12:01 Visit [facility] 350.1.13.10 it y of [place] 4.2.7.2.686 Henry as DONTE?BLEA [phone] [address] OFFICE [facility] 2021-08-26 2021-08-26 Outpatient R DEMAR [facility] [id number] Univers 13:15:00 14:12:01 ARIK [facility] [place] 2021-08-26 2021-08-26 Outpatient R DEMAR [facility] [id number] Univers 14:00:00 14:00:00 ARIK [facility] [place] 2021-08-26 2021-08-26 Outpatient R DEMAR [facility] [id number] Univers 13:15:00 13:15:00 [facility] 2021-08-21 2021-08-21 Patient Avinash [facility] 1.2.840.114 [id number] Univers 00:00:00 00:00:00 Secure Msg Nieto [facility] 350.1.13.10 ity of [place] 4.2.7.2.686 Henry as DONTE?BLEA [phone] [facility] [address] MEDICAL OFFICE [facility] 2021-08-19 2021-08-19 Outpatient R [facility] [id number] Univers 08:00:00 08:00:00 [facility] 2021-08-19 2021-08-19 Refill Doctor [facility] 1.2.840.114 [id number] Univers 00:00:00 00:00:00 Unassigned, HEALTH 350.1.13.10 ity of [place] 4.2.7.2.686 Henry as DONTE?BLEA [phone] [address] MEDICAL OFFICE [facility] 2021-08-19 2021-08-19 Telephone [facility] 1.2.840.114 [id number] Univers 00:00:00 00:00:00 [facility] 350.1.13.10 it y of [place] 4.2.7.2.686 [place] as DONTE?BLEA [phone] [address] 2021-08-11 2021-08-11 Outpatient Campos [facility] [id number] Univers 15:00:00 15:00:00 [facility] 2021-08-08 2021-08-08 Outpatient Campos [facility] [id number] Univers 15:00:00 15:00:00 [facility] 2021-07-29 2021-07-29 Outpatient Campos [facility] [id number] Univers 13:00:00 13:00:00 [facility] 2021-07-21 2021-07-21 [facility] 1.2.840.114 [id number] Univers 00:00:00 00:00:00 [facility] 350.1.13.10 it y of [place] 4.2.7.2.686 [place] as DONTE?BLEA [phone] [address] 2021-07-09 2021-07-09 Outpatient Campos [facility] [id number] Univers 13:00:00 13:00:00 [facility] 2021-07-09 2021-07-09 Outpatient Campos [facility] [id number] Univers 13:00:00 13:00:00 ARIK leonard [facility] 2021-07-09 2021-07-09 Outpatient R DEMAR [facility] [id number] Univers 13:00:00 13:00:00 ARIK leonard [facility] 2021-07-09 2021-07-09 Outpatient Campos BENZ [facility] [id number] Univers 13:00:00 13:00:00 ARIK [facility] [place] 2021-06-24 2021-06-24 Orders Doctor JUAN 1.2.840.114 [id number] Univers 00:00:00 00:00:00 Only Unassigned, SHAYY 350.1.13.10 ity of [place] [facility] 4.2.7.2.686 [place] as [phone] [address] 2021-05-22 2021-05-22 [facility] 1.2.840.114 [id number] Univers 00:00:00 00:00:00 [facility] 350.1.13.10 it y of [place] 4.2.7.2.686 Henry as PROFESSIO [phone] [address] OFFICE [facility] ONE 2021-05-17 2021-05-17 [facility] 1.2.840.114 [id number] Univers 00:00:00 00:00:00 [facility] 350.1.13.10 it y of [place] 4.2.7.2.686 Henry as PROFESSIO [phone] [address] ONE 2021-05-13 2021-05-13 Patient [facility] 1.2.840.114 [id number] Univers 00:00:00 00:00:00 Secure Msg [facility] 350.1.13.10 ity of [place] 4.2.7.2.686 Henry as DONTE?BLEA [phone] Ca dicmo KNEY [address] [place] [address] MEDICAL OFFICE BUILDING 2021-05-09 2021-05-09 Transition KALYANI Rosenberg 1.2.840.114 [id number] Univers 00:00:00 00:00:00 of Care Trinidad WILLS 350.1.13.10 i ty [facility] 4.2.7.2.686 [place] [phone] [facility] [address] 2021-05-04 2021-05-08 Inpatient X BRYANT, [facility] MARGIE [id number] Univers 19:48:00 14:30:00 [facility] 2021-05-04 2021-05-08 [facility] Sean Meléndez 1.2.840. 114 [id number] Univers 19:48:00 14:30:00 [facility] 350.1.13 .10 ity [facility] 4.2.7.2.686 [place] Yoko Bryant [phone] [place] [address] 2021-05-04 2021-05-08 [facility] [id number] Univers 19:48:00 14:30:00 [facility] 2021-05-07 2021-05-07 Outpatient Campos BENZ [facility] [id number] Univers 15:00:00 15:00:00 ARIK [facility] [place] 2021-05-01 2021-05-01 Outpatient Campos STEPHENS [facility] [id number] Univers 09:30:00 09:30:00 OLIVA [facility] [place] 2021-04-30 2021-04-30 Juma Harding [facility] 1.2.840.114 [id number] Univers 00:00:00 00:00:00 Secure Msg SWEET 350.1.13.10 ity of [place]OMEN'[place].2.[place] [facility] [phone] [facility] [address] 2021-04-29 2021-04-29 Outpatient JUMA PALMER [facility] [id number] Univers 16:00:00 16:00:00 ity [facility] 2021-04-25 2021-04-25 Outpatient JUMA PALMER [facility] [id number] Univers 14:00:00 14:00:00 [facility] 2021-04-25 2021-04-25 Outpatient R NAVARROGAGE [facility] [id number] Univers 13:00:00 13:00:00 ARIK leonard [facility] 2021-04-24 2021-04-24 Patient Demar [facility] 1.2.840.114 [id number] Univers 00:00:00 00:00:00 Secure Msg [facility] 350.1.13.10 ity of [place] 4.2.7.2.686 Henry as ODNTE?BLEA [phone] [address] MEDICAL OFFICE [facility] 2021-04-24 2021-04-24 Refill [facility] 1.2.840.114 [id number] Univers 00:00:00 00:00:00 [facility] 350.1.13.10 it y of [place] 4.2.7.2.686 [place] as DONTE?BLEA [phone] [address] OFFICE [facility] 2021-04-09 2021-04-09 Outpatient Davar_P VFP VFP [id number] [facility] 03:51:00 03:51:00 [id number] Family Practic e 2021-04-08 2021-04-08 Patient Demar [facility] 1.2.840.114 [id number] Univers 00:00:00 00:00:00 Secure Msg [facility] 350.1.13.10 ity of [place] 4.2.7.2.686 Henry as DONTE?BLEA [phone] [address] MEDICAL OFFICE [facility] 2021-04-02 2021-04-02 Outpatient R DEMAR [facility] [id number] Univers 14:00:00 14:29:25 ARIK [facility] [place] 2021-04-02 2021-04-02 Office [facility] 1.2.840.114 [id number] Univers 14:00:00 14:15:00 Visit [facility] 350.1.13.10 it y of [place] 4.2.7.2.686 Henry as DONTE?BLEA [phone] [address] OFFICE [facility] 2021-04-02 2021-04-02 Outpatient R DEMAR [facility] [id number] Univers 14:00:00 14:00:00 ARIK [facility] [place] 2021-04-02 2021-04-02 Outpatient R DEMAR [facility] [id number] Univers 14:00:00 14:00:00 ARIK [facility] [place] 2021-04-02 2021-04-02 Outpatient R DEMAR [facility] [id number] Univers 14:00:00 14:00:00 [facility] 2021-04-01 2021-04-01 [facility] 1.2.840.114 [id number] Univers 00:00:00 00:00:00 Oliva TREVIZO 350.1.13.10 i [facility] 4.2.7.2.[place] [phone] Ca dical NAL 188 [facility] 2021-03-30 2021-03-30 Nurse JUAN Darnell 1.2.840.114 [id number] Univers 00:00:00 00:00:00 Triage Dakotah GARAY 350.1.13.10 [facility] 4.2.7.2.686 [place] as [phone] [address] 2021-03-28 2021-03-28 Outpatient R [facility] [id number] Univers 10:30:00 10:30:00 ity [facility] 2021-03-27 2021-03-27 Outpatient R [facility] [id number] Univers 15:00:00 15:00:00 ity [facility] 2021-03-27 2021-03-27 [facility] 1.2.840.114 [id number] Univers 00:00:00 00:00:00 Secure Msg Elle TREVIZO 350.1.13.10 ity [facility] 4.2.7.2.[place] [phone] Ca dical NAL 134 [facility] 2021-03-27 2021-03-27 [facility] 1.2.840.114 [id number] Univers 00:00:00 00:00:00 Management Elle TREVIZO 350.1.13.10 ity of [place] 4.2.7.2.686 [place] [facility] [phone] Ca dical NAL [address] [facility] 2021-03-25 2021-03-25 Outpatient R AD, [facility] [id number] Univers 15:15:00 15:15:00 ELLE ity [facility] 2021-03-23 2021-03-24 Inpatient X AD, [facility]GH [id number] Univers 06:56:00 17:35:00 ELLE ity [facility] 2021-03-23 2021-03-24 Hospital Ad, [facility] 1.2.840.114 [id number] Univers 06:56:00 17:35:00 Encounter Elle TREVIZO 350.1.13.10 ity of [place] 4.2.7.2.[place] C[place] [phone] [facility] [address] 2021-03-23 2021-03-23 [facility] 1.2.840.114 [id number] Univers 12:00:00 19:29:00 Event Subhash TREVIZO 350.1.13.10 i ty of [place] 4.2.7.2.686 [place]US [phone] [facility] [address] 2021-03-23 2021-03-23 Inpatient X AD, [facility]HG [id number] Univers 06:56:00 06:56:00 ELLE ellis [facility] 2021-03-23 2021-03-23 Nurse JUAN Cortes 1.2.840.114 [id number] Univers 00:00:00 00:00:00 Triage Renetta GARAY 350.1.13.10 it y of HOSPITAL 4.2.7.2.686 [place] as [phone] [facility] [address] 2021-03-23 2021-03-23 Orders Doctor JUAN 1.2.840.114 [id number] Univers 00:00:00 00:00:00 Only Unassigned, SHAYY 350.1.13.10 ity of [place] HOSPITAL 4.2.7.2.686 [place] as [phone] [facility] [address] 2021-03-142021-03-14 Outpatient R LEXIE, [facility] [id number] Univers 15:30:00 16:54:39 ELLE leonard [facility] 2021-03-14 2021-03-14 Routine [facility] 1.2.840.114 [id number] Univers 15:30:00 16:54:39 Elle Candace [place]SE[place] 350.1.13.10 ity of Visit [place] 4.2.7.2.686 [place] [phone] Ca dical NAL [address] [facility] 2021-03-14 2021-03-14 Out[facility] [id number] Univers 15:30:00 15:30:00 ELLE [facility] [place] 2021-03-12 2021-03-12 Outpatient P [facility] [id number] Univers 15:00:00 15:00:00 [facility] 2021-03-12 2021-03-12 Patient Doctor JUAN 1.2.840.114 [id number] Univers 00:00:00 00:00:00 Secure Msg Unassigned, SHAYY 350.1.13.10 ity of [place] [facility] 4.2.7.2.686 [place] as [phone] [address] 2021-03-11 2021-03-11 [facility] [id number] Univers 13:15:00 13:15:00 ARIK [facility] [place] 2021-03-11 2021-03-11 Outpatient R [facility] [id number] Univers 13:15:00 13:15:00 [facility] 2021-03-11 2021-03-11 Office [facility] 1.2.840.114 [id number] Univers 10:30:59 10:45:59 Visit [facility] 350.1.13.10 it y of [place] 4.2.7.2.686 [place] as DONTE?BLEA [phone] Ca dical KNEY [address] MEDICAL OFFICE BUILDING 2021-03-09 2021-03-09 Outpatient X JUMA MCDANIELS [facility] [id number] Univers 09:27:00 12:30:[address] [facility] 2021-03-09 2021-03-09 Emergency Fish, Juma [facility] 1.2.840.114 [id number] Univers 09:27:00 12:30:00 JOSELINE 350.1.13.10 i ty of [place] 4.2.7.2.686 [place] C[place]US [id number] [facility] [address] 2021-03-09 2021-03-09 Nurse JUAN Cortes 1.2.840.114 [id number] Univers 00:00:00 00:00:00 Triage Renetta GARAY 350.1.13.10 it y of HOSPITAL 4.2.7.2.686 [place] as [id number] [facility] [address] 2021-03-07 2021-03-07 Routine [facility] 1.2.840.114 [id number] Univers 15:34:54 16:24:15 Elle TREVIZO 350.1.13.10 ity of Visit [place] 4.2.7.2.686 [place] [facility] [phone] Ca dicdhruv [facility] 134 [facility] 2021-03-07 2021-03-07 [facility] [id number] Univers 15:30:00 16:24:[address] [facility] 2021-03-07 2021-03-07 Refdb [facility] 1.2.840.114 [id number] Univers 00:00:00 00:00:00 [facility] 350.1.13.10 it y of Edward [facility] 4.2.7.2.686 [place] as DONTE?BLEA [phone] Ca dical CAROLYNNEY [address] MEDICAL OFFICE [facility] 2021-03-06 2021-03-06 Refdb [facility] 1.2.840.114 [id number] Univers 00:00:00 00:00:00 Arik HEALTH 350.1.13.10 it y of Edward [facility] 4.2.7.2.686 [place] as DONTE?BLEA [phone] Ca dical KNEY [address] MEDICAL OFFICE BUILDING 2021-03-04 2021-03-04 Outpatient P CHLOE REESE [facility] [id number] Univers 00:27:00 14:38:[address] [facility] 2021-03-04 2021-03-04 Hospital Chloe Reese [facility] 1.2.840.114 [id number] Univers 00:27:00 14:38:00 Encounter Cam [place] 350.1.13.10 ity of [facility] 4.2.7.2.[place] [id number] [address] 2021-02-27 2021-02-27 Refill [facility] 1.2.840.114 [id number] Univers 00:00:00 00:00:00 Elle L [place] 350.1.13.10 ity of [facility] 4.2.7.2.[place] PROF[place] [phone] Ca dic[address] 2021-02-27 2021-02-27 [facility] 1.2.840.114 [id number] Univers 00:00:00 00:00:00 Elle L [place] 350.1.13.10 ity of [place] 4.2.7.2.[place] [id number] Ca dic[address] 2021-02-27 2021-02-27 [facility] 1.2.840.114 [id number] Univers 00:00:00 00:00:00 Elle L [place] 350.1.13.10 ity of [place] 4.2.7.2.686 [place] [id number] Ca dic[address] 2021-02-26 2021-02-26 Outpatient P [facility] [id number] Univers 12:08:00 18:00:[address] [facility] 2021-02-26 2021-02-26 [facility] 1.2.840.114 [id number] Univers 12:08:00 18:00:00 Encounter Elle L [place] 350.1.13.10 ity of [facility] 4.2.7.2.[place] [id number] [address] 2021-02-26 2021-02-26 Outpatient R ADUM, [facility] [id number] Univers 16:00:00 16:00:[address] [facility] 2021-02-26 2021-02-26 [facility]phone [facility] 1.2.947.219 [id number] Univers 00:00:00 00:00:00 Elle Maria [place] 350.1.13.10 ity of [place] 4.2.7.2.[place] [id number] [address] 2021-02-14 2021-02-14 Telephone [facility] 1.2.840.114 [id number] Univers 00:00:00 00:00:00 [facility] 350.1.13.10 it y of Jonathan [facility]OND[facility] 4.2.7.2.686 [place] as DONTE?BLEA [id number] [address] 2021-02-07 2021-02-07 Routine Ad, [facility] 1.2.840.114 [id number] Univers 15:39:01 16:45:30 Elle TREVIZO 350.1.13.10 ity of Visit [place] 4.2.7.2.686 [place] [id number] [address] 2021-02-07 2021-02-07 Outpatient R AD, [facility] [id number] Univers 15:30:00 16:45:30 ELLE ity [facility] 2021-02-06 2021-02-06 Outpatient R ADUM, [facility] [id number] Univers 16:00:00 16:00:00 ELLE ity [facility] 2021-02-04 2021-02-04 [facility]phone [facility] 1.2.129.883 [id number] Univers 00:00:00 00:00:00 Elle [place] 350.1.13.10 ity of [facility] 4.2.7.2.[place] [phone] [address] 2021-02-03 2021-02-03 [employer] [facility], Ang - Db [facility] [id number] Univers 13:21:16 13:36:16 Visit Elle Owen [facility] [id number] ity [facility] [id number] [place] as DONTE?BLEA [phone] Ca dicdhruv KNEY 353 [facility] OFFICE [facility] 2021-02-03 2021-02-03 [facility] [id number] Univers 13:30:00 13:30:00 ELLE ellis [facility] 2021-02-03 2021-02-03 Telephone [facility] 1..[id number] Univers 00:00:00 00:00:00 Arik [facility] [id number] it y of Jonathan [place] [id number] [place] as DONTE?BLEA [phone] Ca dicdhruv [facility] 044 [facility] OFFICE [facility] 2021-01-31 2021-01-31 Outpatient P [facility] [id number] Univers 16:16:00 17:53:00 ELLE itleonard [facility] 2021-01-31 2021-01-31 Hospital [facility] 1..[id number] Univers 16:16:00 17:53:00 Encounter Elle TREVIZO [id number] ity [facility] [id number] [phone] [facility] [address] 2021-01-31 2021-01-31 [facility] [id number] Univers 10:30:00 10:30:00 ARIK itleonard [facility] 2021-01-30 2021-01-30 [facility] 1..207.354 [id number] Univers 00:00:00 00:00:00 Elle TREVIZO 350.1.13.10 ity of [facility] 4.2.7.2.686 [place] [facility] [phone] Ca dical NAL 134 [facility] 2021-01-30 2021-01-30 [facility] 1.2.840.114 [id number] Univers 00:00:00 00:00:00 [facility] 350.1.13.10 it y of [place] 4.2.7.2.686 Henry as PROFESSIO [phone] [facility]44 [facility] ONE 2021-01-29 2021-01-29 [facility] 1.2.840.114 [id number] Univers 00:00:00 00:00:00 [facility] 350.1.13.10 it y of [place] 4.2.7.2.686 Henry as PROFESSIO [phone] [facility]44 [facility] ONE 2021-01-27 2021-01-27 Outpatient R NATALY, [facility] [id number] Univers 13:00:00 13:00:00 TEO itleonard [facility] 2021-01-27 2021-01-27 [facility] 1.2.840.114 [id number] Univers 00:00:00 00:00:00 [facility] 350.1.13.10 it y of [place] 4.2.7.2.686 [place] as PROFESSIO [phone] [address] ONE 2021-01-23 2021-01-[address] [facility] [id number] Univers 16:00:00 17:27:00 ELLE ellis [facility] 2021-01-23 2021-01-23 [facility] 1.2.840.114 [id number] Univers 15:56:29 17:27:00 Elle TREVIZO 350.1.13.10 ity of Visit [place].2.7.2.686 [place] PROFESS[place] [phone] [facility] 134 [facility] 2021-01-21 2021-01-21 Outpatient R AD, [facility] [id number] Univers 16:00:00 16:00:00 ELLE ellis [facility] 2021-01-17 2021-01-17 [facility]phone [facility] 1.2.183.146 [id number] Univers 00:00:00 00:00:00 Elle Trevizo 350.1.13.10 ity of [place].2.7.2.[place] Profess[place] [phone] Ca dical nal 134 [facility] 2021-01-17 2021-01-17 Patient [place] 1.2.840.114 [id number] Univers 00:00:00 00:00:00 Secure Msg Elle Trevizo 350.1.13.10 ity of [place] 4.2.7.2.686 [place] Profess[place] [phone] Ca dical nal 134 [facility] 2021-01-15 2021-01-15 Refill [facility] 1.2.840.114 [id number] Univers 00:00:00 00:00:00 [facility] 350.1.13.10 it y of [place] 4.2.7.2.686 [place] as Professio [phone] Ca dical nal 044 [facility] One 2021-01-13 2021-01-13 Refill Adum, [facility] 1.2.840.114 [id number] Univers 00:00:00 00:00:00 Elle Trevizo 350.1.13.10 ity of [place].2.7.2.686 [place] Professio [phone] Ca dical nal [address] [place] [address] 2021-01-02 2021-01-02 Telephone Ad, [facility] 1.2.869.716 [id number] [id number] Univers 00:00:00 00:00:00 Elle Trevizo 350.1.13.10 ity of [place] 4.2.7.2.686 [place] Profess[place] [phone] Ca dical nal [address] [place] [address] 2021-01-02 2021-01-02 Orders Doctor JUAN 1.2.840.114 [id number] Univers 00:00:00 00:00:00 Only Unassigned, SHAYY 350.1.13.10 ity of [place] [facility] 4.2.7.2.686 Henry as [phone] [address] 2021-01-01 2021-01-01 Telephone Adum, [facility] 1.2.648.988 [id number] [id number] Univers 00:00:00 00:00:00 Elle Trevizo 350.1.13.10 ity of [place] 4.2.7.2.686 [place] Professio [phone] Ca dical nal 134 [facility] 2021-01-01 2021-01-01 Refill Doctor [facility] 1.2.840.114 [id number] Univers 00:00:00 00:00:00 Unassigned, Health 350.1.13.10 ity of [place] 4.2.7.2.686 [place] as Professio [phone] Ca dical nal 044 [facility] One 2020-12-24 2020-12-24 Laboratory Only, Ang Db Test [facility] 1.2.8 40.114 [id number] Univers 17:40:30 17:55:30 Only Adum, Elle [facility] 350.1.13.10 ity of [place] 4.2.7.2.686 Henry as Donte?Blea [phone] Ca dicdhruv kney [address] [facility] 2020-12-24 2020-12-24 Routine Adum, [facility] 1.2.840.114 [id number] Univers 16:33:12 17:22:08 Elle Trevizo 350.1.13.10 ity of Visit [place] 4.2.7.2.686 [place] Professio [phone] Ca dicdhruv [facility] 134 [facility] 2020-12-24 2020-12-24 Outpatient R LEXIE [facility] [id number] Univers 16:00:00 16:00:[address] [facility] 2020-12-17 2020-12-17 Patient Demar [facility] 1.2.840.114 [id number] Univers 00:00:00 00:00:00 Secure Msg [facility] 350.1.13.10 ity of [place] 4.2.7.2.686 [place] as Professio [phone] [address] One 2020-12-17 2020-12-17 Telephone Demar [facility] 1.2.840.114 [id number] [id number] Univers 00:00:00 00:00:00 [facility] 350.1.13.10 it y of [place] 4.2.7.2.686 Henry as Donte?Blea [phone] Ca dread melvin [address] [place] [facility] 2020-12-10 2020-12-10 [facility]phone [facility] 1.2.417.789 [id number] 1113 Univers 00:00:00 00:00:00 Elle Candace [place] 350.1.13.10 ity of [place] 4.2.7.2.686 [place] Professio [phone] [facility] nal 134 [facility] 2020-12-10 2020-12-10 Violetta Barrientos 1.2.840.114 [id number] Univers 00:00:00 00:00:00 Triage SHAYY 350.1.13.10 it y of HOSPITAL 4.2.7.2.686 [place] as [phone] [address] 2020-12-10 2020-12-10 Violetta Barrientos 1.2.840.114 [id number] Univers 00:00:00 00:00:00 Triage SHAYY 350.1.13.10 it y of HOSPITAL 4.2.7.2.686 Henry as [phone] [address] 2020-12-04 2020-12-04 [facility] 1.2.840.114 [id number] 065 Univers 00:00:00 00:00:00 [facility] 350.1.13.10 it y of [place] 4.2.7.2.686 [place] as Professio [phone] [address] Office Building One 2020-12-04 2020-12-04 [facility] 1.2.840.114 [id number] 065 Univers 00:00:00 00:00:00 [facility] 350.1.13.10 it y of [place] 4.2.7.2.686 Henry as Professio [phone] [facility] nal [address] [place] [address] Office Building One 2020-12-03 2020-12-03 [facility] 1.2.840.114 [id number] 509 Univers 00:00:00 00:00:00 [facility] 350.1.13.10 it y of [place] 4.2.7.2.686 Henry as Professio [phone] Ca dical nal [address] [place] [facility] One 2020-12-03 2020-12-03 [facility] 1.2.840.114 [id number] 509 Univers 00:00:00 00:00:00 [facility] 350.1.13.10 it y of [place] 4.2.7.2.686 [place] as Professio [phone] Ca dical nal [address] [place] [facility] One 2020-12-02 2020-12-02 [facility] 1.2.840.114 [id number] [id number] Univers 16:28:00 19:00:00 Encounter Cam [place] 350.1.13.10 ity of [place] 4.2.7.2.686 [facility] [phone] [facility] [address] 2020-12-02 2020-12-02 Hospital Vick [facility] 1.2.840.114 [id number] [id number] Univers 16:28:00 19:00:00 Encounter Cam [place] 350.1.13.10 ity of [place] 4.2.7.2.686 [facility] [phone] [facility] [address] 2020-12-02 2020-12-02 Nurse Ayaka Palacios 1.2.840.114 [id number] Univers 00:00:00 00:00:00 Triage SHAYY 350.1.13.10 it y of HOSPITAL 4.2.7.2.686 Henry as [phone] [facility] [address] 2020-12-02 2020-12-02 Orders Doctor JUAN 1.2.840.114 [id number] Univers 00:00:00 00:00:00 Only Unassigned, SHAYY 350.1.13.10 ity of [place] [facility] 4.2.7.2.686 Henry as [phone] [facility] [address] [place] 2020-12-02 2020-12-02 Refill Vick [facility] 1.2.317.706 7304 3124 Univers 00:00:00 00:00:00 Cam [place] 350.1.13.10 i ty of [place] 4.2.7.2.686 [place] Professio [phone] [facility] 134 [facility] 2020-12-02 2020-12-02 [facility] 1.2.840.114 78041 467 Univers 00:00:00 00:00:00 [facility] 350.1.13.10 it y of [place] 4.2.7.2.686 [place] as Professio [phone] Ca dicmo nal 044 [facility] One 2020-12-02 2020-12-02 Ayaka Ennis 1.2.840.114 87 [id number] Univers 00:00:00 00:00:00 Triage SHAYY 350.1.13.10 it y of HOSPITAL 4.2.7.2.686 [place] as [phone] [facility] [address] [place] 2020-12-02 2020-12-02 Orders Doctor JUAN 1.2.840.114 [id number] Univers 00:00:00 00:00:00 Only Unassigned, SHAYY 350.1.13.10 ity of [place] [facility] 4.2.7.2.686 Henry as [phone] [facility] [address] [place] 2020-12-02 2020-12-02 Refill Chloe Reese [facility] 1.2.413.918 [id number] 3124 Univers 00:00:00 00:00:00 Cam [place] 350.1.13.10 i ty of [place] 4.2.7.2.686 [place] Profess[place] [phone] [address] 2020-12-02 2020-12-02 [facility] 1.2.840.114 [id number] 467 Univers 00:00:00 00:00:00 [facility] 350.1.13.10 it y of [place] 4.2.7.2.686 [place] as Professio [phone] [facility] 044 [facility] One 2020-12-01 2020-12-01 Ayaka Ennis 1.2.840.114 87 [id number] Univers 00:00:00 00:00:00 Triage SHAYY 350.1.13.10 it y of HOSPITAL 4.2.7.2.686 [place] as [phone] [address] 2020-12-01 2020-12-01 Nurse Ayaka Palacios 1.2.840.114 [id number] Univers 00:00:00 00:00:00 Triage SHAYY 350.1.13.10 it y of [facility] 4.2.7.2.686 [place] as [phone] [address] 2020-11-27 2020-11-27 Outpatient R ADUM, [facility] [id number] Univers 14:00:00 14:00:00 ELLE ity [facility] 2020-11-26 2020-11-26 Routine Adum, [facility] 1.2.840.114 [id number] Univers 15:59:55 17:26:28 Elle Candace Trevizo 350.1.13.10 ity of Visit [place] 4.2.7.2.686 [place] Profess[place] [phone] [address] 2020-11-26 2020-11-26 Routine Adum, [place] 1.2.840.114 [id number] Univers 15:59:55 17:26:28 Elle L [place] 350.1.13.10 ity of Visit [place] 4.2.7.2.686 [place] Professio [phone] [address] 2020-11-26 2020-11-26 Customer Insight Analyst Ultrasound, [facility] 1.2 .840.114 [id number] Univers 14:06:00 15:21:00 Visit Adam Reich GEOLOGICAL SCIENCE TEACHER 350.1.13.10 ity of [facility] 4.2.7.2.686 Henry as MATERNAL [phone] [facility] ical & CHILD [address] [place] [address] 2020-11-26 2020-11-26 Customer Insight Analyst Ultrasound, [facility] 1.2 .840.114 [id number] Univers 14:06:00 15:21:00 Visit Adma Reich GEOLOGICAL SCIENCE TEACHER 350.1.13.10 ity of [facility] 4.2.7.2.686 Henry as MATERNAL [phone] Med ical & CHILD [address] [place] [address] 2020-11-26 2020-11-26 Outpatient P [facility] [id number] Univers 14:00:00 14:00:[address] [facility] 2020-11-26 2020-11-26 Telephone Ad, [facility] 1.2.477.739 [id number] Univers 00:00:00 00:00:00 Elle Candace Joseline 350.1.13.10 ity of [place] 4.2.7.2.686 [place] Profess[place] [phone] [address] 2020-11-26 2020-11-26 [facility] 1.2.177.603 [id number] 8898 Univers 00:00:00 00:00:00 Elle Candace [place] 350.1.13.10 ity of [place] 4.2.7.2.686 [place] Professio [phone] Ca dic[address] 2020-11-18 2020-11-18 [facility] 1.2.840.114 [id number] 877 Univers 00:00:00 00:00:00 [facility] 350.1.13.10 it y of [place] 4.2.7.2.686 [place] as Professio [phone] [address] One 2020-11-11 2020-11-11 Telephone Ad, [facility] 1.2.291.635 [id number] [id number] Univers 00:00:00 00:00:00 Elle Trevizo 350.1.13.10 ity of [place] 4.2.7.2.686 [place] Profess[place] [phone] Ca dical nal [address] [place] [address] 2020-11-09 2020-11-09 Chloe Langston [facility] 1.2.840.114 [id number] Univers 16:44:00 20:20:00 Aruna Trevizo 350.1.13.10 ity of [place] 4.2.7.2.686 [place] [phone] [facility] [address] 2020-11-09 2020-11-09 Nurse JUAN Chun 1.2.840.114 [id number] Univers 00:00:00 00:00:00 Triage Karina GARAY 350.1.13.10 it y of [facility] 4.2.7.2.686 Henry as [phone] [facility] [address] [place] 2020-11-07 2020-11-07 Telephone Lexie [facility] 1.2.213.587 [id number] [id number] Univers 00:00:00 00:00:00 Elle Trevizo 350.1.13.10 ity [facility] 4.2.7.2.686 [facility] [phone] Ca dical nal 134 [facility] 2020-11-05 2020-11-05 Office Sarahi [facility] 1.2.840.114 [id number] Univers 15:51:46 16:06:46 Visit [facility] 350.1.13.10 it y of Surgical 4.2.7.2.686 [place] as Specialti [phone] Ca dical es 198 [facility] 2020-11-05 2020-11-05 Outpatient R SARAHI [facility] [id number] Univers 15:45:00 15:45:00 CARMEN ity [facility] 2020-11-02 2020-11-02 Nurse JUNA Ca 1.2.840.114 [id number] Univers 00:00:00 00:00:00 Triage Helen GARAY 350.1.13.10 it y of [facility] 4.2.7.2.686 Henry as [phone] [address] 2020-11-02 2020-11-02 Telephone Juma Mcdaniels [facility] Perez 1.2.840.11 [id number] Univers 00:00:00 00:00:00 Jose 350.1.13.10 it y of Women's 4.2.7.2.686 [facility] [phone] [facility] [address] 2020-10-29 2020-10-29 Customer Insight Analyst 2, Adc Lab [facility] 1.2.840.114 [id number] Univers 14:07:34 14:22:34 Visit Adum, Elle Trevizo 350.1.13.10 ity of [place] 4.2.7.2.686 [place] Profess[place] [phone] [facility] 353 [facility] 2020-10-29 2020-10-29 Outpatient R [facility] [id number] Univers 14:00:00 14:00:[address] [facility] 2020-10-29 2020-10-29 Refdb [facility] 1.2.840.114 [id number] Univers 00:00:00 00:00:00 [facility] 350.1.13.10 it y of [place] 4.2.7.2.686 [place] as Professio [phone] [facility] 044 [facility] 2020-10-29 2020-10-29 Orders Doctor JUAN 1.2.840.114 [id number] Univers 00:00:00 00:00:00 Only Unassigned, SHAYY 350.1.13.10 ity of [place] [facility] 4.2.7.2.686 [place] as [phone] [address] 2020-10-25 2020-10-25 Routine Adum, [facility] 1.2.840.114 [id number] Univers 16:45:11 17:34:04 Elle Trevizo 350.1.13.10 ity of Visit [place] 4.2.7.2.686 [place] Profess[place] [phone] [facility] 134 [facility] 2020-10-25 2020-10-25 Outpatient R ADUM, [facility] [id number] Univers 16:15:00 16:15:[address] [facility] 2020-10-19 2020-10-19 [place] [facility] 1.2.840.114 [id number] Univers 00:00:00 00:00:00 [facility] 350.1.13.10 it y of [place] 4.2.7.2.686 [place] as Professio [phone] [facility] 044 [facility] One 2020-10-18 2020-10-18 Telemedici Fellow, [facility] Areap [facility] U NIVERSIT 1.2.840.114 [id number] Univers 14:46:12 15:16:12 ne Visit Shira Chaudhary Y [facility] 350.1.13.10 ity of CLINICS 4.2.7.2.686 [place] [phone] [facility] [address] 2020-10-18 2020-10-18 Outpatient R [facility] [id number] Univers 13:30:00 13:30:[address] [facility] 2020-10-16 2020-10-16 Telephone [facility] 1.2.506.386 [id number] Univers 00:00:00 00:00:00 Elle Trevizo 350.1.13.10 ity of [place] 4.2.7.2.686 [place] Profess[place] [phone] [address] 2020-10-16 2020-10-16 [facility]phone [facility] 1.2.213.816 [id number] Univers 00:00:00 00:00:00 Elle Trevizo 350.1.13.10 ity of [place] 4.2.7.2.686 [place] Profess[place] [phone] [address] 2020-10-08 2020-10-08 Orders Doctor JUAN 1.2.840.114 [id number] Univers 00:00:00 00:00:00 Only Unassigned, SHAYY 350.1.13.10 ity of [place] [facility] 4.2.7.2.686 Henry as [phone] [facility] [address] [place] 2020-10-04 2020-10-04 Telemedici Fellow, [facility] U NIVERSIT 1.2.840.114 [id number] Univers 08:16:56 08:46:56 ne Visit Alyssia Marx [facility] 350. 1.13.10 ity of CLINICS 4.2.7.2.686 [place] [phone] [facility] [address] 2020-10-04 2020-10-04 Outpatient R [facility] [id number] Univers 08:30:00 08:30:[address] [facility] 2020-10-02 2020-10-02 Telephone [facility] 1.2.840.114 [id number] Univers 00:00:00 00:00:00 [facility] 350.1.13.10 it y of Jonathan [place] 4.2.7.2.686 [place] as Professio [phone] [facility] 044 [facility] One 2020-09-27 2020-09-27 [facility] 1.2.840.114 [id number] Univers 16:05:39 17:08:05 Elle Trevizo 350.1.13.10 ity of Visit [place] 4.2.7.2.686 [place]a [place] Lazaro [phone] [address] 2020-09-27 2020-09-27 Outpatient R AD, [facility] [id number] Univers 16:00:00 16:00:00 [facility] 2020-09-25 2020-09-25 Telephone [facility] 1.2.840.114 [id number] Univers 00:00:00 00:00:00 [facility] 350.1.13.10 it y of [place] 4.2.7.2.686 [place] as Professio [phone] [address] One 2020-09-24 2020-09-24 Outpatient R AD, [facility] [id number] Univers 14:00:00 14:00:00 ELLE ity [facility] 2020-09-21 2020-09-21 TelemedicMyrtle Grande [facility] 1.2.840 .114 [id number] Univers 17:30:22 18:00:22 ne Visit Unknown, [facility] HEALTH 350.1.13.1 0 ity [facility] 4.2.7.2.686 [place] [phone] [facility] Primary & [facility] Branch Specialty Care 2020-09-21 2020-09-21 Outpatient R UNKNOWN, [facility] [id number] Univers 17:30:00 17:30:00 ATTENDING ity [facility] 2020 2020 [facility] [id number] Univers 16:15:00 16:15:00 ARIK ity [facility] 2020 2020 Telemedici [facility] 1.2.840.114 [id number] Univers 14:02:59 14:17:59 ne Visit [facility] 350.1.13.10 i ty of oJnathan Trevizo 4.2.7.2.686 [place] as Professio [phone] [facility] [address] [place] [address] One 2020 2020 Telephone [facility] 1.2.097.113 [id number] Univers 00:00:00 00:00:00 Elle Trevizo 350.1.13.10 ity of [place] 4.2.7.2.686 [place] [phone] [facility] 134 [facility] 2020-09-19 2020-09-19 Outpatient R [facility] [id number] Univers 17:40:00 17:40:00 JAIDEN y [facility] 2020-09-19 2020-09-19 Outpatient R [facility] [id number] Univers 16:30:00 16:30:00 ity [facility] 2020-09-19 2020-09-19 Refill [facility] 1.2.840.114 [id number] Univers 00:00:00 00:00:00 [facility] 350.1.13.10 it y of Jonathan [place] 4.2.7.2.686 [place] as Professio [phone] [facility] [address] [place] [facility] [address] One 2020-09-19 2020-09-19 Nurse Martha Lang 1.2.840.114 [id number] Univers 00:00:00 00:00:00 Triage SHAYY 350.1.13.10 it y of [facility] 4.2.7.2.686 [place] as [phone] [address] 2020-09-19 2020-09-19 Nurse Violetta Clay 1.2.840.114 [id number] Univers 00:00:00 00:00:00 Triage SHAYY 350.1.13.10 it y of HOSPITAL 4.2.7.2.686 [place] as [phone] [facility] [address] 2020-09-19 2020-09-19 Patient Adum, [facility] 1.2.840.114 [id number] Univers 00:00:00 00:00:00 Secure Msg Elle Trevizo 350.1.13.10 ity of [place] 4.2.7.2.686 [place] [phone] [facility] [address] Building 2020-09-19 2020-09-19 Telephone Clinic, [facility] 1.2.840.11 4 [id number] Univers 00:00:00 00:00:00 Neurology Y HEALTH 350.1.13.10 ity of [facility] CLINICS 4.2.7.2.686 [place] [phone] [facility] [address] 2020-09-18 2020-09-18 Telephone Kalyani Martinez 1.2.011.941 [id number] Univers 00:00:00 00:00:00 Analilia Wills 350.1.13.10 ity of [place] 4.2.7.2.686 [place] [phone] [facility] [address] 2020-09-18 2020-09-18 [facility] 1.2.840.114 [id number] Univers 00:00:00 00:00:00 [facility] 350.1.13.10 it y of [place] 4.2.7.2.686 [place] as Professio [phone] [facility] [address] Office Building One 2020-09-18 2020-09-18 Telephone [facility], [facility] 1.2.627.330 [id number] [id number] Univers 00:00:00 00:00:00 Elle Trevizo 350.1.13.10 ity of [place] 4.2.7.2.686 [place] [phone] Ca dical nal [address] Building 2020-09-08 2020-09-10 [facility] Tita Cortez 1.2.840.11 [id number] Univers 12:24:00 09:20:00 Encounter Migdalia Linares SHAYY 350.1.13.10 ity of [facility] 4.2.7.2.686 [place] as [phone] [address] 2020-09-08 2020-09-08 Nurse JUAN Santos 1.2.840.114 [id number] Univers 00:00:00 00:00:00 Triage Rosy GARAY 350.1.13.10 ity of [facility] 4.2.7.2.686 [place] as [phone] [address] 2020-09-05 2020-09-05 Outpatient R MAO RODRIGUES [facility] [id number] Univers 14:30:00 14:30:00 ity [facility] 2020-09-03 2020-09-03 [place] [facility] 1.2.840.114 [id number] Univers 00:00:00 00:00:00 [facility] 350.1.13.10 it y of Edsteven Trevizo 4.2.7.2.686 [place] as Professio [phone] Ca dical nal [address] [place] Office [facility] One 2020-09-03 2020-09-03 Telephone [facility] 1.2.618.787 [id number] Univers 00:00:00 00:00:00 Elle Trevizo 350.1.13.10 ity of [place] 4.2.7.2.686 [place] [phone] Ca dical nal 134 [facility] 2020-09-02 2020-09-02 Routine Vick Chloe [facility] [id number] Univers 13:19:48 15:16:04 [place] Trevizo 350.1.13.10 ity of [place] [phone] Ca dical nal 134 [facility] 2020-09-02 2020-09-02 Outpatient R CHLOE REESE [facility] [id number] Univers 13:15:00 13:15:00 ity [facility] 2020-09-02 2020-09-02 [facility]phone [facility] [id number] Univers 00:00:00 00:00:00 Elle Trevizo 350.1.13.10 [place] [phone] Ca dical nal 134 [facility] 2020-08-31 2020-08-31 Nurse Irina MARTINEZ [id number] Univers 00:00:00 00:00:00 Triage Thomas SHAYY 350.1.13.10 ity of [facility] 4.2.7.2.686 [place] as [phone] [address] 2020-08-31 2020-08-31 Nurse JUAN Patel 1.2.840.114 [id number] Univers 00:00:00 00:00:00 Triage Cat GARAY 350.1.13.10 i ty of [facility] 4.2.7.2.686 [place] as [phone] [address] 2020-08-30 2020-08-30 JUAN Pelaez 1.2.840.114 [id number] Univers 00:00:00 00:00:00 Triage Cat GARAY 350.1.13.10 i ty of [facility] 4.2.7.2.686 [place] as [phone] [facility] [address] 2020-08-28 2020-08-29 Emergency Owusu, [facility] [id number] Univers 20:20:00 00:01:00 Darryn Trevizo 350.1.13.10 i ty [facility] [place]2.7.2.[place] [phone] [facility] [address] 2020-08-27 2020-08-27 [employer] 2, [facility] [place] 1.2.840.114 [id number] Univers 15:18:51 15:33:51 Visit Elle Owen 350.1.13.10 ity of [place] [phone] Ca dical nal 353 [facility] 2020-08-27 2020-08-27 Routine Adguzman, [facility] 1.2.840.114 [id number] Univers 13:41:37 15:06:26 Elle L [place] 350.1.13.10 ity of [place] [phone] Ca dical nal [address] [place] [address] 2020-08-27 2020-08-27 Outpatient R LEXIE, [facility] [id number] Univers 14:15:00 14:15:00 ELLE ity [facility] 2020-08-27 2020-08-27 [facility] 1.2.558.926 [id number] Univers 00:00:00 00:00:00 Elle L [place] 350.1.13.10 it[place] of [place] [phone] [facility] nal [address] [place] [address] 2020-08-22 2020-08-22 Outpatient R ONEL [facility] [id number] [facility] 19:20:00 19:20:00 CALEB ity [facility] 2020-08-22 2020-08-22 Telephone [facility] 1.2.654.690 [id number] Univers 00:00:00 00:00:00 Elle L [place] 350.1.13.10 it[place] of [place] [phone] Ca dic[address] 2020-08-22 2020-08-22 Telephone Ad, [facility] 1.2.205.864 [id number] Univers 00:00:00 00:00:00 Elle L [place] 350.1.13.10 it[place] of [place] [phone] Ca dical nal [address] [place] [address] 2020-08-19 2020-08-19 Refill Adum, [facility] 1.2.840.114 [id number] Univers 00:00:00 00:00:00 Elle L [place] 350.1.13.10 it[place] of [place] [phone] Ca dical nal [address] [place] [address] 2020-08-09 2020-08-09 Outpatient R ADUM, [facility] [id number] Univers 14:30:00 14:30:00 ELLE ellis [facility] 2020-08-06 2020-08-06 Initial Adum, [facility] 1.2.840.114 [id number] Univers 14:28:51 16:45:44 Elle Trevizo 350.1.13.10 ity of [place] [phone] Ca dical nal 134 [facility] 2020-08-06 2020-08-06 Outpatient R ADUM, [facility] [id number] Univers 14:30:00 14:30:00 ELLE ellis [facility] 2020-08-06 2020-08-06 Telephone Adum, [facility] 1.2.219.570 [id number] Univers 00:00:00 00:00:00 Elle Trevizo 350.1.13.10 it[place] of [place] [phone] Ca dical [facility] 134 [facility] 2020-08-06 2020-08-06 Orders Doctor JUAN 1.2.840.114 [id number] Univers 00:00:00 00:00:00 Only Unassigned, SHAYY 350.1.13.10 ity of [place] [facility] 4.2.7.2.686 [place] as [phone] [address] 2020-07-29 2020-07-29 [facility] 1.2.840.114 [id number] Univers 00:00:00 00:00:00 [facility] 350.1.13.10 it y of [place] 4.2.7.2.686 [place] as Professio [phone] [facility] [address] [place] Office [facility] One 2020-07-29 2020-07-29 Madison [facility] 1.2.840.114 [id number] Univers 00:00:00 00:00:00 [facility] 350.1.13.10 it y of [place] 4.2.7.2.686 [place] Professio [phone] [address] Office [facility] One 2020-07-22 2020-07-22 Outpatient R MARY GRACE, [facility] [id number] Univers 19:00:00 19:00:[address] [facility] 2020-07-16 2020-07-16 [facility] 1.2.840.114 [id number] Univers 00:00:00 00:00:00 [facility] 350.1.13.10 it y of [place] 4.2.7.2.686 [place] Professio [phone] [address] Office [facility] One 2020-07-06 2020-07-06 [facility] 1.2.840.114 [id number] Univers 00:00:00 00:00:00 [facility] 350.1.13.10 it y of [place] 4.2.7.2.686 [place] Professio [phone] [address] Office [facility] 2020-07-01 2020-07-01 [facility] 1.2.840.114 [id number] Univers 00:00:00 00:00:00 [facility] 350.1.13.10 it y of [place] 4.2.7.2.686 [place] Professio [phone] [address] Office [facility] One 2020-06-21 2020-06-21 Outpatient R DULCE TAMMIE, [facility] [id number] Univers 16:15:00 16:15:[address] [facility] 2020-06-19 2020-06-19 Orders Doctor JUAN 1.2.840.114 [id number] Univers 00:00:00 00:00:00 Only Unassigned, SHAYY 350.1.13.10 ity of [place] [facility] 4.2.7.2.686 [place] as [phone] [address] 2020-06-11 2020-06-11 Office [facility] 1.2.840.114 [id number] Univers 15:35:12 15:50:12 Visit [facility] 350.1.13.10 it y of [place] 4.2.7.2.686 [place] Professio [phone] Ca dical nal 044 [facility] One 2020-06-11 2020-06-11 Outpatient R DEMAR [facility] [id number] Univers 15:30:00 15:30:00 ARIK leonard [facility] 2020-05-30 2020-05-30 [facility] 1.2.840.114 [id number] Univers 00:00:00 00:00:00 [facility] 350.1.13.10 it y of [place] 4.2.7.2.686 [place] as Professio [phone] Ca dicmo nal [address] [place] [address] One 2020-05-27 2020-05-27 [facility] 1..840.114 [id number] Univers 00:00:00 00:00:00 Grant Koo [place] 350.1.13.10 it[place] [phone] [facility] 092 [facility] 2020-05-02 2020-05-02 Outpatient R DEMAR [facility] [id number] Univers 09:50:00 09:50:00 ARIK [facility] 2020-05-02 2020-05-02 Telemedici [facility] 1..840.114 [id number] Univers 08:42:09 08:52:09 ne Visit [facility] 350.1.13.10 i ty of [place] 4.2.7.2.686 [place] Profess[place] [phone] Ca dical nal [address] [place] [address] One 2020-05-02 2020-05-02 Telephone [facility] 1..840.114 [id number] Univers 00:00:00 00:00:00 [facility] 350.1.13.10 it y of Jonathan [place] 4.2.7.2.686 [place] Profess[place] [phone] Ca dicmo nal [address] [place] [address] One 2020-05-02 2020-05-02 Telephone [facility] 1.2.840.114 [id number] Univers 00:00:00 00:00:00 [facility] 350.1.13.10 it y of [place] 4.2.7.2.686 [place] Profess[place] [phone] [address] Office [facility] One 2020-05-02 2020-05-02 [facility] 1.2.840.114 [id number] Univers 00:00:00 00:00:00 [facility] 350.1.13.10 it y of [place] 4.2.7.2.686 [place] Professio [phone] [address] Office [facility] One 2020-05-01 2020-05-01 [facility] 1.2.544.347 [id number] Univers 18:59:00 21:44:00 Juma Campos Joseline 350.1.13.10 i ty of [place] [phone] [facility] [address] 2020-04-28 2020-04-28 [facility] 1.2.840.114 [id number] Univers 00:00:00 00:00:00 [facility] 350.1.13.10 it y of [place] 4.2.7.2.686 [place] Professio [phone] [address] One 2020-04-22 2020-04-22 [facility] 1.2.840.114 [id number] Univers 06:54:00 08:09:00 Encounter Aly Marcial [place] 350.1.13.10 it[place] [phone] [facility] [address] 2020-04-19 2020-04-19 Outpatient R [facility] [id number] Univers 13:00:00 13:00:[address] [facility] 2020-04-12 2020-04-12 [facility] 1.2.840.114 [id number] Univers 00:00:00 00:00:00 [facility] 350.1.13.10 it y of [place] 4.2.7.2.686 [place] Profess[place] [phone] [address] Office [facility] One 2020-04-11 2020-04-11 Outpatient R [facility] [id number] Univers 10:30:00 10:30:00 ARIK [facility] 2020-04-11 2020-04-11 Telemedici [facility] 1.2.840.114 [id number] Univers 07:27:09 07:42:09 ne Visit [facility] 350.1.13.10 i ty of [place] 4.2.7.2.686 [place] Profess[place] [phone] [address] Office [facility] One 2020-04-11 2020-04-11 Telephone [facility] 1.2.840.114 [id number] Univers 00:00:00 00:00:00 [facility] 350.1.13.10 it y of [place] 4.2.7.2.686 [place] Profess[place] [phone] [address] Office [facility] 2020-04-09 2020-04-09 Outpatient Campos [facility] [id number] Univers 13:00:00 13:00:00 [facility] 2020-04-08 2020-04-08 [facility] 1.2.840.114 [id number] Univers 06:58:00 08:24:00 Encounter Aly Trevizo 350.1.13.10 it[place] [phone] [facility] [address] 2020-04-08 2020-04-08 Orders Doctor JUAN 1.2.840.114 [id number] Univers 00:00:00 00:00:00 Only Unassigned, SHAYY 350.1.13.10 ity of [place] [facility] 4.2.7.2.686 [place] as [phone] [facility] [address] 2020-04-05 2020-04-05 Outpatient [facility] [id number] Univers 13:45:00 13:45:[address] [facility] 2020-04-05 2020-04-05 Customer Insight Analyst Danette, Adc Lab Main [facility] 1.2.8 40.114 [id number] Univers 11:46:35 12:01:35 Visit Aly Ryan 350.1.13.1 0 it[place] [phone] [facility] 353 [facility] 2020-04-05 2020-04-05 Laboratory Only, Adc Test [facility] 1.2.840. 114 [id number] Univers 11:44:14 11:59:14 Only Aly Ryan 350.1.13.1 0 it[place] of [place] [phone] [facility] [address] 2020-04-05 2020-04-05 Orders Doctor JUAN 1.2.840.114 [id number] Univers 00:00:00 00:00:00 Only Unassigned, SHAYY 350.1.13.10 ity of [place] [facility] 4.2.7.2.686 [place] as [phone] [address] 2020-04-05 2020-04-05 Telephone [facility] 1.2.840.114 [id number] Univers 00:00:00 00:00:00 [facility] 350.1.13.10 it y of [place] 4.2.7.2.686 [place] Profess[place] [phone] [address] 2020-04-04 2020-04-04 Telephone [facility] 1.2.840.114 [id number] Univers 00:00:00 00:00:00 [facility] 350.1.13.10 it y of [place] 4.2.7.2.686 [place] Profess[place] [phone] [address] 2020-04-04 2020-04-04 Patient [facility] 1.2.840.114 [id number] Univers 00:00:00 00:00:00 Secure Msg [facility] 350.1.13.10 ity of [place] 4.2.7.2.686 [place] Profess[place] [phone] Ca dical nal [address] [place] Office [facility] One 2020-04-03 2020-04-03 Office [facility] 1.2.840.114 [id number] Univers 15:00:34 15:15:34 Visit [facility] 350.1.13.10 it y of [place] 4.2.7.2.686 [place] Professio [phone] Ca dical nal [address] [place] [address] Office [facility] One 2020-04-03 2020-04-03 Outpatient R [facility] [id number] Univers 14:45:00 14:45:[address] [facility] 2020-04-03 2020-04-03 Telephone [facility] 1.2.840.114 [id number] Univers 00:00:00 00:00:00 [facility] 350.1.13.10 it y of [place] 4.2.7.2.686 [place] Professio [phone] [facility] nal [address] [place] [address] One 2020-04-03 2020-04-03 Telephone [facility] 1.2.840.114 [id number] Univers 00:00:00 00:00:00 [facility] 350.1.13.10 it y of [place] 4.2.7.2.686 [place] Profess[place] [phone] Ca dicmo nal [address] [place] [address] Office [facility] 2020-03-25 2020-03-25 [facility] 1.2.840.114 [id number] Univers 08:02:00 10:10:00 Encounter Aly Marcial [place] 350.1.13.10 [place] [phone] [address] 2020-03-25 2020-03-25 Orders Doctor JUAN 1.2.840.114 [id number] Univers 00:00:00 00:00:00 Only Unassigned, SHAYY 350.1.13.10 ity of [place] [facility] 4.2.7.2.686 [place] as [phone] [facility] [address] 2020-03-25 2020-03-25 Nurse Irina MARTINEZ 1.2.840.114 [id number] Univers 00:00:00 00:00:00 Triage SHAYY Guzman 350.1.13.10 ity of [facility] 4.2.7.2.686 [place] as [phone] [facility] [address] [place] 2020-03-20 2020-03-20 Customer Insight Analyst Danette, Adc Lab Main [facility] 1.2.8 40.114 [id number] Univers 12:30:25 12:45:25 Visit Aly Ryan 350.1.13.1 0 it[place] [phone] Ca dical nal [address] Building 2020-03-20 2020-03-20 Laboratory Only, Adc Test [facility] 1.2.840. 114 [id number] Univers 11:43:13 11:58:13 Only Aly Ryan 350.1.13.1 0 it[place] of [place] [phone] [address] 2020-03-20 2020-03-20 Outpatient R SHELBY [facility] [id number] Univers 11:15:00 11:15:[address] [facility] 2020-03-20 2020-03-20 Orders Doctor JUAN 1.2.840.114 [id number] Univers 00:00:00 00:00:00 Only UnassignedSHAYY 350.1.13.10 ity of [place] [facility] 4.2.7.2.686 [place] as [phone] [address] 2020-03-12 2020-03-12 Office Demar [facility] 1.2.840.114 [id number] Univers 14:07:40 14:22:40 Visit [facility] 350.1.13.10 it y of [place] 4.2.7.2.686 [place] as Professio [phone] Ca dical nal [address] Building One 2020-03-12 2020-03-12 Outpatient R [facility] [id number] Univers 14:15:00 14:15:00 ARIK leonard [facility] 2020-03-12 2020-03-12 Nurse JUAN Chun 1.2.840.114 [id number] Univers 00:00:00 00:00:00 Triage Karina GARAY 350.1.13.10 it y of HOSPITAL 4.2.7.2.686 [place] as [phone] [address] 2020-03-12 2020-03-12 Telephone [facility] 1..840.114 [id number] Univers 00:00:00 00:00:00 [facility] 350.1.13.10 it y of [place] 4.2.7.2.686 [place] as Professio [phone] Ca dic[address] Office [facility] 2020-02-14 2020-02-14 [facility] [id number] Univers 15:30:00 15:30:00 ELLE leonard [facility] 2020-02-12 2020-02-12 [facility] 1..840.114 [id number] Univers 00:00:00 00:00:00 [facility] 350.1.13.10 it y of [place] 4.2.7.2.686 [place] Professio [phone] [address] Office [facility] 2020-01-29 2020-01-29 Telephone [facility] 1..840.114 [id number] Univers 00:00:00 00:00:00 [facility] 350.1.13.10 it y of [place] 4.2.7.2.686 [place] as Professio [phone] Ca dic[address] Office [facility] 2020-01-29 2020-01-29 [facility] 1.2.840.114 [id number] Univers 00:00:00 00:00:00 [facility] 350.1.13.10 it y of [place] 4.2.7.2.686 [place] as Professio [phone] Ca dical nal [address] [place] Office [facility] 2020-01-26 2020-01-26 Outpatient R DEMAR [facility] [id number] Univers 16:00:00 16:00:00 ARIK leonard [facility] 2020-01-26 2020-01-26 Customer Insight Analyst Lab, Adc Fam Pob I [facility] 1.2. 840.114 [id number] Univers 09:09:02 09:16:47 Visit Arik [facility] 350.1.13 .10 ity of [place] 4.2.7.2.686 [place] as Professio [phone] Ca dical [facility] 044 [facility] 2020-01-26 2020-01-26 Office Demar [facility] 1..840.114 [id number] Univers 08:16:33 08:31:33 Visit Arik [facility] 350.1.13.10 it y of [place] 4.2.7.2.686 [place] as Professio [phone] Ca dical [facility] 044 [facility] 2020-01-26 2020-01-26 Outpatient R DEMAR [facility] [id number] Univers 08:30:00 08:30:00 ARIK [facility] 2020-01-25 2020-01-25 Office Shanmargaritatopher [facility] 1..438.590 [id number] Univers 15:25:26 16:55:28 Visit Teo Trevizo 350.1.13.10 i ty [facility] [place].2.7.2.[place] [phone] [facility] 134 [facility] 2020-01-25 2020-01-25 Outpatient R NATALY [facility] [id number] Univers 15:30:00 15:30:00 TEO leonard [facility] 2020-01-24 2020-01-24 Outpatient R JUMA MCDANIELS [facility] [id number] Univers 14:30:00 14:30:00 ity [facility] 2020-01-18 2020-01-18 Refill Doctor [facility] 1.2.413.707 [id number] Univers 00:00:00 00:00:00 Unassigned, HEALTH 350.1.13.[address] [place] [facility] 4.2.7.2.686 [place] [phone] [facility] [address] [place] [address] 2020-01-15 2020-01-15 [facility]ftalygaylastephanRE[facility] 1.2.840.114 [id number] Univers 00:00:00 00:00:00 Maximus Trevzio 350.1.13.10 i ty of [place] [phone] [address] 2020-01-12 2020-01-12 [facility] 1.2.840.114 [id number] Univers 00:00:00 00:00:00 Grant Trevizo 350.1.13.10 ity of [place].2.[place] [phone] [address] 2019-12-15 2019-12-15 Outpatient R LEXIE [facility] [id number] Univers 13:00:00 13:00:00 ELLE [facility] 2019-11-07 2019-11-17 Office [facility] 1.2.840.114 [id number] Univers 14:01:04 14:03:23 Visit Justin Trevizo 350.1.13.10 ity of [place] 4[place]2.7.2.[place] [phone] [address] 2019-11-17 2019-11-17 Case [facility] 1.2.840.114 [id number] Univers 00:00:00 00:00:00 Management Justin Trevizo 350.1.13.10 ity of [place] 4[place]2.7.2.[place] [phone] [address] 2019-11-14 2019-11-14 Outpatient R DEMAR [facility] [id number] Univers 16:30:00 16:30:00 ARIK [facility] 2019-11-10 2019-11-10 Telephone [facility] 1.2.840.114 [id number] Univers 00:00:00 00:00:00 Grant Trevizo 350.1.13.10 ity of [place].7.2.[place] [phone] Ca dical nal 092 [facility] 2019-11-10 2019-11-10 Refill Naseem [facility] 1.2.840.114 [id number] Univers 00:00:00 00:00:00 Grant Trevizo 350.1.13.10 ity of [place] 4[place]2.7.2.[place] [phone] Ca dicmo nal 092 [facility] 2019-11-08 2019-11-08 Outpatient Asplin_B VFP VFP [id number] [place] 11:44:00 11:44:00 [id number] Family Practic e 2019-11-08 2019-11-08 Telephone [facility] 1.2.840.114 [id number] [facility] 00:00:00 00:00:00 Grant Trevizo 350.1.13.10 ity [facility] 4.2.7.2.[place] [phone] Ca dicmo nal 092 [facility] 2019-11-07 2019-11-07 Customer Insight Analyst 2, Adc Lab [facility] 1.2.840.114 [id number] Univers 14:43:22 14:58:22 Visit Justin Oconnor 350.1.13. 10 ity [facility] 4.2.7.2.[place] [phone] [facility] 353 [facility] 2019-11-07 2019-11-07 Outpatient Campos OCONNOR [facility] [id number] Univers 13:45:00 13:45:00 JUSTIN ellis o f [facility] 2019-11-05 2019-11-05 Outpatient Campos CORADO [facility] [id number] Univers 16:20:00 16:20:00 CALEB itleonard [facility] 2019-11-05 2019-11-05 Nurse JUAN Santos 1.2.840.114 [id number] Univers 00:00:00 00:00:00 Triage Rosy Aggie SHAYY 350.1.13.10 ity of [facility] 4.2.7.2.686 [place] as [phone] [address] 2019-11-03 2019-11-03 Madison Gusman, ROSEMARYIT 1.2.840.114 [id number] Univers 00:00:00 00:00:00 Grant Gene Y HEALTH 350.1.13.10 ity of CLINICS 4[place]2.7.2.[place] [phone] [facility] [address] 2019-11-02 2019-11-02 Patient Hansa, [facility] 1.2.840.114 [id number] Univers 00:00:00 00:00:00 Secure Msg Peterpeter Trevizo 350.1.13.10 ity of [place] 4[place]2.7.2.686 [place] [facility] [phone] Ca dical nal 044 [facility] 2019-11-01 2019-11-01 Transition Kalyani Dubois 1.2.840.114 [id number] Univers 00:00:00 00:00:00 of Care Edna Wills 350.1.13.10 ity of [place]2.7.2.686 [place] [phone] [facility] [address] 2019-10-31 2019-10-31 Emergency [facility] 1.2.655.500 [id number] Univers 16:01:00 18:16:00 Leroy Trevizo 350.1.13.10 i ty of [place] 4.2.7.2.686 [place] [phone] [facility] [address] 2019-10-31 2019-10-31 Telemedici Beth Kang [facility] 1.2.840 .114 [id number] Univers 05:43:53 13:27:24 ne Visit Unknown, Attending SPECIALTY 350.1.13 .10 ity of [place].2.[place] AT [phone] Ca dical VICTORY 370 [facility] 2019-10-31 2019-10-31 Outpatient R UNKNOWN, [facility] [id number] Univers 10:00:00 10:00:[address] [facility] 2019-10-31 2019-10-31 Telephone Alon, [facility] 1.2.495.994 [id number] Univers 00:00:00 00:00:00 [facility] 350.1.13.10 it y of [place] 4.2.7.2.686 [place] as Professio [phone] Ca dicmo nal [address] [place] [address] Office [facility] One 2019-10-30 2019-10-30 Telephone [facility]leRE[facility] 1.2.310.712 [id number] Univers 00:00:00 00:00:00 [facility] 350.1.13.10 it y of [place] 4.2.7.2.686 [place] as Professio [phone] [facility] nal [address] [place] [address] Office [facility] One 2019-10-29 2019-10-29 Emergency Cacace, [facility] 1.2.370.805 [id number] Univers 20:08:00 22:13:00 Jane Trevizo 350.1.13.10 ity of [place]2.7.2.[place] [phone] [address] 2019-10-29 2019-10-29 Telemedici Care, Provider 12 - Adult U [facility] 1.2.840.114 [id number] Univers 18:20:00 18:40:00 ne Visit Unknown, Attending HEALTH 350.1.13.1 0 ity [facility] 4.2.7.2.[place] [facility] [phone] [address] [facility] 2019-10-29 2019-10-29 Outpatient R UNKNOWN, [facility] [id number] Univers 18:20:00 18:20:[address] [facility] 2019-10-25 2019-10-25 Telephone [facility] [id number] Univers 00:00:00 00:00:00 [facility] [id number] it y of [place] [id number] [place] as Professio [phone] [facility] nal [address] [facility] 2019-10-25 2019-10-25 Refdb Rhoades [facility] [id number] Univers 00:00:00 00:00:00 Maximus Trevizo [id number] i ty [id number] [facility] [phone] [facility] nal [address] [facility] 2019-10-24 2019-10-24 [facility] [id number] Univers 16:15:00 23:59:00 Encounter Tico Trevizo [id number] [id number] [phone] [facility] [address] 2019-10-24 2019-10-24 Urgent Provider, [facility] [id number] Univers 15:17:27 15:37:27 Care [facility] [id number] ity of [place] [id number] [place] as Professio [phone] [address] Office [facility] [employer] 2019-10-24 2019-10-24 Outpatient R [facility] [id number] Univers 15:20:00 15:20:[address] [facility] 2019-10-24 2019-10-24 Telephone [facility] [id number] Univers 00:00:00 00:00:00 Tico Trevizo 350.1.13.10 [place] [phone] [address] 2019-10-23 2019-10-23 Outpatient Asplin_B VFP VFP [id number] 1-20 [facility] 11:19:00 11:19:00 [id number] Family Practic e 2019-10-10 2019-10-10 Telephone [facility] 1.2.840.114 [id number] Univers 00:00:00 00:00:00 Aly S PRIMARY 350.1.13.10 i ty [place] [phone] [address] 2019-09-26 2019-09-26 Refill [facility] 1.2.840.114 [id number] Univers 00:00:00 00:00:00 Tico Trevizo 350.1.13.10 i [place] [phone] Ca dical nal [address] 2019-09-16 2019-09-16 Outpatient R ONEL, [facility] [id number] Univers 16:40:00 16:40:00 CALEB ity [facility] 2019-09-16 2019-09-16 Outpatient Asplin_B VFP VFP [id number] [place] 10:07:00 10:07:00 [id number] Family Practic e 2019-09-15 2019-09-15 Outpatient R PAMELA, [facility] 1027 [id number] Univers 17:00:00 17:00:00 KITA ity [facility] 2019-09-08 2019-09-08 Telephone JUAN Chi 1.2.705.411 [id number] Univers 00:00:00 00:00:00 Tico GARAY 350.1.13.10 it y of [facility] 4.2.7.2.686 [place] as [phone] [address] 2019-09-08 2019-09-08 Patient Doctor JUAN 1.2.840.114 [id number] Univers 00:00:00 00:00:00 Secure Msg UnassignedSHAYY 350.1.13.10 ity of [place] [facility] 4.2.7.2.686 [place] as [phone] [address] 2019-09-06 2019-09-06 Urgent Pob1, Acute Care Clinic [facility] 1. 2.840.114 [id number] Univers 16:19:19 16:39:19 Care Aparna [facility] 350.1.13.10 ity [facility] 4.2.7.2.686 [place] Professio [phone] Ca dical nal [address] Building One 2019-09-06 2019-09-06 Outpatient R [facility] [id number] Univers 16:20:00 16:20:[address] [facility] 2019-09-06 2019-09-06 Outpatient R [facility] [id number] Univers 11:20:00 11:20:[address] [facility] 2019-09-06 2019-09-06 Patient Doctor JUAN 1.2.840.114 [id number] Univers 00:00:00 00:00:00 Secure Msg Unassigned, SHAYY 350.1.13.10 ity of [place] [facility]OS[facility] 4.2.7.2.686 [place] as [phone] [facility] [address] 2019-08-23 2019-08-23 Outpatient GRANT FRIEDMAN [facility] [id number] Univers 15:00:00 15:00:[address]y of [facility] 2019-08-23 2019-08-23 Telemedici NaseemROSEMARYIT 1.2.840.114 [id number] Univers 08:11:53 08:41:53 ne Visit Grant Koo [facility] 350.1.13.10 ity of CLINICS [place] [phone] [facility] [address] 2019-08-20 2019-08-20 Outpatient Campos HOLLOWAY [facility] [id number] Univers 17:00:00 17:00:[address] [facility] 2019-08-15 2019-08-15 Transition Kalyani Dubois 1.2.840.114 [id number] Univers 00:00:00 00:00:00 of Care Edna Wills 350.1.13.10 ity of [place] [phone] [facility] [address] 2019-08-13 2019-08-13 Emergency [facility] 1.2.358.768 [id number] Univers 18:39:45 20:15:00 Sean Trevizo 350.1.13.10 ity of [place] [phone] [facility] [address] 2019-08-13 2019-08-13 Orders Doctor MARTINEZ 1.2.840.114 [id number] Univers 00:00:00 00:00:00 Only Unassigned, SHAYY 350.1.13.10 ity of [place] [facility] 4.2.7.2.686 [place] as [phone] [facility] [address] 2019-08-01 2019-08-01 Telephone Naseem [facility] 1.2.840.114 [id number] Univers 00:00:00 00:00:00 Grant Trevizo 350.1.13.10 it[place] of [place] [phone] Ca dical nal 092 [facility] 2019-07-25 2019-07-25 Outpatient R NATALY [facility] [id number] Univers 15:00:00 15:00:[address] [facility] 2019-07-16 2019-07-16 Telephone [facility] 1.2.984.927 [id number] Univers 00:00:00 00:00:00 Ticosada Trevizo 350.1.13.10 i ty of [place] [phone] Ca dical nal 044 [facility] 2019-07-11 2019-07-11 [place] [facility] 1.2.578.167 [id number] 0542 Univers 00:00:00 00:00:00 [facility] 350.1.13.10 it y of [place] 4.2.7.2.686 [place] as Professio [phone] Ca dical nal [address] [place] Office [facility] One 2019-06-20 2019-06-20 [place] [facility] 1.2.592.688 [id number] 6501 Univers 00:00:00 00:00:00 [facility] 350.1.13.10 it y of [place] 4.2.7.2.686 [place] as Professio [phone] Ca dicmo nal [address] [place] Office [facility] 2019-06-16 2019-06-16 [facility] 1.2.840.114 [id number] Univers 00:00:00 00:00:00 Grant Koo [place] 350.1.13.10 it[place] [phone] Ca dical nal 092 [facility] 2019-06-14 2019-06-14 Outpatient R TREY [facility] [id number] Univers 12:43:28 23:59:[address] [facility] 2019-06-14 2019-06-14 [facility] Trey [facility] 1.2.840.114 [id number] Univers 12:30:00 23:59:00 Aruna Trevizo 350.1.13.10 ity of [place] [phone] [facility] [address] [place] 2019-06-14 2019-06-14 Orders Doctor JUAN 1.2.840.114 [id number] Univers 00:00:00 00:00:00 Only Unassigned, SHAYY 350.1.13.10 ity of [place] HOSP[facility] 4.2.7.2.686 [place] as [phone] [facility] [address] [place] 2019-06-13 2019-06-13 Refill [facility] 1.2.840.114 [id number] Univers 00:00:00 00:00:00 Jose Trevizo 350.1.13.10 i ty of [place] [phone] Ca dical nal 134 [facility] 2019-06-11 2019-06-11 Patient Doctor JUAN 1.2.840.114 [id number] Univers 00:00:00 00:00:00 Secure Msg Unassigned, SHAYY 350.1.13.10 ity of [place] [facility]OS[facility] 4.2.7.2.686 [place] as [phone] [facility] [address] [place] 2019-06-09 2019-06-09 Telephone Naseem [facility] 1.2.840.114 [id number] Univers 00:00:00 00:00:00 Grant Trevizo 350.1.13.10 it[place] [phone] Ca dical nal 092 [facility] 2019-06-06 2019-06-06 Outpatient R GRANT GUSMAN [facility] [id number] Univers 10:40:00 10:40:00 GRANT GUSMAN ity of [facility] 2019-06-06 2019-06-06 Telephone Alon [facility] 1.2.367.504 [id number] Univers 00:00:00 00:00:00 [facility] 350.1.13.10 it y of [place] 4.2.7.2.686 [place] as Professio [phone] Ca dical nal 044 [facility] 2019-06-06 2019-06-06 Patient Alon [facility] 1.2.840.114 [id number] Univers 00:00:00 00:00:00 Secure Msg [facility] 350.1.13.10 ity of [place] 4.2.7.2.686 [place] as Professio [phone] Ca dical nal 044 [facility] 2019-06-06 2019-06-06 Patient Doctor [facility] 1.2.840.114 [id number] Univers 00:00:00 00:00:00 Secure Msg Unassigned, Health 350.1.13.10 ity of [place] 4.2.7.2.686 [place] as Professio [phone] Ca dical nal 044 [facility] 2019-06-05 2019-06-05 Refill Alon [facility] 1.2.840.114 [id number] Univers 00:00:00 00:00:00 [facility] 350.1.13.10 it y of [place] 4.2.7.2.686 [place] Professio [phone] Ca dical nal 044 [facility] 2019-06-03 2019-06-03 Patient Doctor JUAN 1.2.840.114 [id number] Univers 00:00:00 00:00:00 Secure Msg Unassigned, SHAYY 350.1.13.10 ity of [place] HOSPITAL 4.2.7.2.686 [place] as [phone] [address] 2019-06-02 2019-06-02 Office Alon [facility] 1.2.840.114 [id number] Univers 11:27:23 13:40:24 Visit [facility] 350.1.13.10 it y of [place] 4.2.7.2.686 [place] Professio [phone] Ca dical nal 044 [facility] 2019-06-02 2019-06-02 Office Carmen Mcclain [facility] 1.2.840.114 [id number] Univers 10:14:12 10:29:12 Visit Olya [facility] 350.1.13.10 ity of Surgical 4.2.7.2.686 [place] as Specialti [phone] Ca dical es 198 [facility] 2019-06-02 2019-06-02 Outpatient R AMIE, [facility] [id number] Univers 10:15:00 10:15:[address] [facility] 2019-06-02 2019-06-02 Nurse JUAN Patel 1.2.840.114 [id number] Univers 00:00:00 00:00:00 Triage Cat De Paz SHAYY 350.1.13.10 i ty of [facility] 4.2.7.2.686 [place] as [phone] [address] 2019-05-31 2019-05-31 Telephone [facility] 1.2.840.114 [id number] Univers 00:00:00 00:00:00 Grant Koo [place] 350.1.13.10 ity of [place] [phone] Ca dical nal 092 [facility] 2019-05-24 2019-05-24 Patient Doctor JUAN 1.2.840.114 [id number] Univers 00:00:00 00:00:00 Secure Msg Unassigned, SHAYY 350.1.13.10 ity of [place] [facility] 4.2.7.2.686 [place] as [phone] [address] 2019-05-17 2019-05-17 Patient [facility] 1.2.840.114 [id number] Univers 00:00:00 00:00:00 Outreach [facility] 350.1.13.10 i ty of [place] 4.2.7.2.686 [place] as Professio [phone] Ca dical nal [address] [place] [address] Building One 2019-05-11 2019-05-11 Outpatient R JF [facility] [id number] Univers 13:40:00 14:48:32 MAXIMUS ellis [facility] 2019-05-11 2019-05-11 Office [facility] 1.2.840.114 [id number] Univers 13:32:39 14:48:32 Visit Maximus Trevizo 350.1.13.10 i ty [place] [phone] Ca dical nal 044 [facility] 2019-04-26 2019-04-26 Telephone Jf [facility] 1.2.840.114 [id number] Univers 00:00:00 00:00:00 Maximus Trevizo 350.1.13.10 i ty [place] [phone] Ca dical nal 044 [facility] 2019-04-25 2019-04-25 Letter Neurology UN[facility]ERSIT 1.2.840.114 [id number] Univers 00:00:00 00:00:00 (Out) Y HEALTH 350.1.13.10 i ty of CLINICS 4[place]2.7.2.[place] [phone] [facility] [address] [place] 2019-04-24 2019-04-24 Hospital [facility] 1.2.840.114 [id number] Univers 12:05:00 15:15:00 Encounter Olya Trevizo 350.1.13.10 it[place] of [place] Surgical [phone] [facility] [address] 2019-04-24 2019-04-24 Transition Kalyani Tran 1.2.840.114 [id number] Univers 00:00:00 00:00:00 of Care Inocencio Wills 350.1.13.10 ity of [place]2.7.2.[place] [phone] [facility] [address] 2019-04-18 2019-04-21 Hospital Mao Rodrigues 1.2.840.114 7 [id number] Univers 08:40:00 13:03:00 Encounter S Shayy 350.1.13.10 ity of [facility] 4.2.7.2.686 [place] as [phone] [facility] [address] [place] 2019-04-19 2019-04-19 Telephone Chloe Reese [facility] 1.2.840.114 [id number] Univers 00:00:00 00:00:00 Raleigh Trevizo 350.1.13.10 i ty of [place] [phone] [facility] nal 134 [facility] 2019-04-18 2019-04-18 Outpatient R MAO RODRIGUES [facility] [id number] Univers 08:30:00 08:30:[address] [facility] 2019-04-14 2019-04-14 Office Alon [facility] 1.2.840.114 [id number] Univers 15:40:06 16:24:42 Visit [facility] 350.1.13.10 it y of [place] 4.2.7.2.686 [place] as Professio [phone] Ca dical nal 044 [facility] 2019-04-14 2019-04-14 Patient Cyn [facility] 1.2.840.114 [id number] Univers 00:00:00 00:00:00 Outreach Glenys Armenta 350.1.13.10 ity of [place] 4.2.7.2.686 [place] as Professio [phone] Ca dical nal 044 [facility] 2019-04-14 2019-04-14 Telephone [facility] 1.2.840.114 [id number] Univers 00:00:00 00:00:00 [facility] 350.1.13.10 it y of Surgical 4.2.7.2.686 [place] as Specialti [phone] Ca dical es 198 [facility] 2019-04-14 2019-04-14 Telephone [facility] 1.2.840.114 [id number] Univers 00:00:00 00:00:00 Maximus Trevizo 350.1.13.10 i ty of [place].2.[place] [phone] Ca dical nal 044 [facility] 2019-04-13 2019-04-13 Refdb [facility]RE[facility] 1.2.638.820 [id number] 2249 Univers 00:00:00 00:00:00 Teo Trevizo 350.1.13.10 i ty of [place] 4[place].2.[place] [phone] Ca dical nal 134 [facility] 2019-04-07 2019-04-07 Office [facility] 1.2.840.114 [id number] Univers 07:44:27 09:37:11 Visit Maximus Trevizo 350.1.13.10 i ty of [place] 4.2.7.2.[place] [phone] [address] 2019-04-07 2019-04-07 Telephone Jf [facility] 1.2.840.114 [id number] Univers 00:00:00 00:00:00 Maximus Trevizo 350.1.13.10 i ty of [place] 4[place]2.7.2.[place] [phone] [address] 2019-04-03 2019-04-03 Outpatient O AMIE [facility] [id number] Univers 16:17:03 23:59:00 OLYA ellis [facility] 2018-12-09 2018-12-09 Telephone Dunia [facility] 1.2.840.114 [id number] Univers 00:00:00 00:00:00 Jose Trevizo 350.1.13.10 i ty of [place].2.[place] [phone] [address] 2018-11-29 2018-11-29 Routine Chloe Reese [facility] 1.2.674.994 [id number] Univers 16:02:20 16:42:16 Raleigh Trevizo 350.1.13.10 ity of [place] 4[place]2.[place].2.[place] [phone] [address] 2018-11-25 2018-11-25 Emergency [facility] 1.2.095.281 [id number] 3717 Univers 21:54:39 22:48:00 Ranjit Trevizo 350.1.13.10 i ty of [place] 4.2.7.2.[place] [phone] [address] 2018-11-25 2018-11-25 Telephone Chloe Reese [facility] 1.2.840.114 [id number] Univers 00:00:00 00:00:00 Raleigh Trevizo 350.1.13.10 i ty [place].2.[place] [phone] [address] 2018-11-25 2018-11-25 Nurse JUAN Elise 1.2.840.114 [id number] Univers 00:00:00 00:00:00 Triage Jackelin GARAY 350.1.13.10 it y of [facility] 4.2.7.2.686 [place] as [phone] [facility] [address] [place] 2018-11-24 2018-11-24 Patient Kalyani Garcia 1.2.840.114 [id number] Univers 00:00:00 00:00:00 Outreach Roseanne Wills 350.1.13.10 ity of [place] 4.2.7.2.[place] [phone] [facility] [address] [place] 2018-11-24 2018-11-24 Telephone [facility] 1.2.840.114 [id number] Univers 00:00:00 00:00:00 Jose Trevizo 350.1.13.10 i ty of [place] 4[place]2.7.2.[place] [phone] [address] 2018-11-23 2018-11-23 Emergency [facility] 1.2.165.804 [id number] Univers 13:27:49 19:20:00 Darryn Trevizo 350.1.13.10 i ty of [place] 4.2.7.2.[place] [phone] [place] [address]37[address] [place] 2018-11-23 2018-11-23 Telephone [facility] 1.2.840.114 [id number] Univers 00:00:00 00:00:00 Jose Trevizo 350.1.13.10 i ty of [place] 4[place]2.7.2.[place] [phone] [address] 2018-11-20 2018-11-22 [facility] 1.2.840.114 [id number] Univers 15:12:00 19:15:00 Encounter Jose Trevizo 350.1.13.10 ity of [place] 4.2.7.2.[place] [phone] [address] 2018-11-20 2018-11-20 Nurse JUAN Cortes 1.2.840.114 [id number] Univers 00:00:00 00:00:00 Triage Renetta Ochoa SHAYY 350.1.13.10 it y of HOSPITAL 4.2.7.2.686 [place] as [phone] [facility] [address] [place] 2018-11-20 2018-11-20 Orders Doctor JUAN 1.2.840.114 [id number] Univers 00:00:00 00:00:00 Only Unassigned, SHAYY 350.1.13.10 ity of [place] [facility]OSPITAL 4.2.7.2.686 [place] as [phone] [facility] [address] [place] 2018-11-18 2018-11-18 Routine Diclemente, [facility] 1.2.840.114 [id number] [facility] 10:21:53 11:38:24 Jose Trevizo 350.1.13.10 ity of [place]2.[place].2.[place] [phone] Ca dical nal [address] [place] [address] 2018-11-14 2018-11-17 Routine Diclemente, [facility] 1.2.840.114 [id number] [facility] 10:03:04 13:42:26 Jose Trevizo 350.1.13.10 ity of [place] 4.2.7.2.[place] [phone] Ca dicmo nal [address] [place] [address] 2018-11-17 2018-11-17 Routine Diclemente, [facility] 1.2.840.114 70 [id number] [facility] 12:09:08 13:31:39 Jose Trevizo 350.1.13.10 ity of [place] 4.2.7.2.[place] [phone] Ca dical nal [address] [place] [address] 2018-11-14 2018-11-14 Hospital Shana Reeseen [facility] 1.2.840.114 [id number] Univers 21:18:00 22:45:00 Encounter Raleigh Trevizo 350.1.13.10 ity of [place] 4.2.7.2.[place] [phone] [facility] [address] [place] 2018-11-14 2018-11-14 [facility], [facility] 1.2.840.114 [id number] Univers 11:26:24 21:17:00 Encounter Jose Trevizo 350.1.13.10 ity of [place] 4.2.7.2.[place] [phone] [facility] [address] [place] 2018-11-14 2018-11-14 Orders Doctor JUAN 1.2.840.114 [id number] Univers 00:00:00 00:00:00 Only Unassigned, SHAYY 350.1.13.10 ity of [place] [facility] 4.2.7.2.686 [place] as [phone] [facility] [address] [place] 2018-11-14 2018-11-14 Nurse JUAN Santos 1.2.840.114 [id number] Univers 00:00:00 00:00:00 Triage Rosy GARAY 350.1.13.10 ity of [facility] 4.2.7.2.686 [place] as [phone] [facility] [address] [place] 2018-11-14 2018-11-14 [facility] 1.2.840.114 [id number] Univers 00:00:00 00:00:00 Jose Trevizo 350.1.13.10 i ty [place] [phone] [address] 2018-11-10 2018-11-11 [facility] 1.2.840.114 [id number] Univers 14:24:00 17:00:00 Encounter Jose Trevizo 350.1.13.10 ity of [place] 4.2.7.2.[place] [phone] [facility] [address] [place] 2018-11-11 2018-11-11 Case [facility] 1.2.840.114 [id number] Univers 00:00:00 00:00:00 Management Jose Trevizo 350.1.13.10 ity of [place].2.[place] [phone] [address] 2018-11-10 2018-11-10 [facility] 1.2.840.114 [id number] Univers 10:54:59 14:23:00 Encounter Jose Menon.1.13.10 ity of [place] 4.2.7.2.[place] [phone] [facility] [address] [place] 2018-11-10 2018-11-10 Routine [facility] 1.2.840.114 [id number] [facility] 12:45:49 13:00:49 Jose Trevizo 350.1.13.10 ity of [place].7.2.[place] [phone] [facility] 134 [facility] 2018-11-07 2018-11-07 Patient HAY Beatty 1.2.515.121 [id number] Univers 00:00:00 00:00:00 Secure Ms Gabby R Y Keenko 350.1.13.[address] [facility] 4.2.7.2.686 [place] [phone] [facility] [address] [place] 2018-11-07 2018-11-07 Telephone [facility] 1.2.840.114 [id number] Univers 00:00:00 00:00:00 Jose Trevizo 350.1.13.10 i ty [place] 4[place]2.7.2.[place] [phone] [address] 2018-11-05 2018-11-05 Nurse JUAN Santos 1.2.840.114 [id number] Univers 00:00:00 00:00:00 Triage Rosy GARAY 350.1.13.10 ity of [facility] 4.2.7.2.686 [place] as [phone] [facility] [address] [place] 2018-11-03 2018-11-03 Hospital [facility] 1.2.840.114 [id number] Univers 10:55:07 23:59:00 Encounter Jsoe [place] 350.1.13.10 ity of [place] 4.2.7.2.[place] [phone] [place] 928696 [place] 2018-11-03 2018-11-03 Routine [facility] 1.2.840.114 70 [id number] Univers 13:54:15 16:42:19 Jose Trevizo 350.1.13.10 ity of [place] 4.2.7.2.[place] [phone] [facility] 134 [facility] 2018-11-01 2018-11-01 Customer Insight Analyst 1, [facility] Mf Usg Room [facility]ERSIT 1 .2.840.114 [id number] [facility] 13:11:27 15:24:28 [facility] 350.1.13.10 ity of CLINICS 4.2.7.2.[place] [phone] [facility] [address] 2018-11-01 2018-11-01 [facility] 1.2.804.104 [id number] Univers 00:00:00 00:00:00 Secure Msg [facility] [place] 350.1.13.10 ity of CLINICS 4.2.7.2.[place] [phone] [facility] [address] 2018-11-01 2018-11-01 Telephone [facility] 1.2.840.114 [id number] Univers 00:00:00 00:00:00 Jose Trevizo 350.1.13.10 i ty of [place].2.[place].2.[place] [phone] [facility] 134 [facility] 2018-10-31 2018-10-31 [facility] 1.2.840.114 [id number] [facility] 10:58:00 12:45:00 Encounter Belem Trevizo 350.1.13.10 ity of [place] 4.2.7.2.[place] [phone] [facility] [address] 2018-10-28 2018-10-28 Routine [facility] 1.2.840.114 [id number] Univers 08:14:34 15:50:40 Belem Trevizo 350.1.13.10 ity of [place].2.[place].2.[place] [phone] [facility] 134 [facility] 2018-10-28 2018-10-28 Hospital Chloe Reese [facility] 1.2.840.114 [id number] Univers 10:33:30 14:55:00 Encounter Belem [place] 350.1.13.1 0 ity of [place] 4.2.7.2.686 [facility] [phone] [facility] [address] [place] 2018-10-28 2018-10-28 Patient Doctor JUAN 1.2.840.114 [id number] Univers 00:00:00 00:00:00 Secure Msg Unassigned, SHAYY 350.1.13.10 ity of [place] [facility] 4.2.7.2.686 [place] as [phone] [facility] [address] [place] 2018-10-24 2018-10-25 Routine Faculty, Moisés [facility] 1.2 .840.114 [id number] Univers 10:00:19 11:32:24 Brandee Odom GEOLOGICAL SCIENCE TEACHER 350.1.1 3.10 ity of Visit [facility] 4.2.7.2.686 [place] as MATERNAL [phone] Med ical & CHILD 107 [facility] 2018-10-25 2018-10-25 Patient BeattyHAY 1.2.149.900 [id number] Univers 00:00:00 00:00:00 Secure Msg Gabby R HEALTH 350.1.13.10 ity of CL[place] 4[place]2.7.2.686 [place] [phone] [facility] [address] [place] 2018-10-25 2018-10-25 Orders Doctor JUAN 1.2.840.114 [id number] Univers 00:00:00 00:00:00 Only Unassigned, SHAYY 350.1.13.10 ity of [place] [facility] 4.2.7.2.686 [place] as [phone] [facility] [address] [place] 2018-10-24 2018-10-24 Hospital Chloe Reese [facility] 1.2.840.114 [id number] Univers 13:33:00 15:30:00 Encounter [place] Trevizo 350.1.13.10 ity of [place] 4.2.7.2.686 [facility] [id number] [facility] [address] [place] 2018-10-24 2018-10-24 Outpatient R BRANDEE ODOM [facility] [id number] Univers 10:00:00 11:51:[address] [facility] 2018-10-24 2018-10-24 [facility]phone [facility] 1.2.840.114 [id number] Univers 00:00:00 00:00:00 Jose Trevizo 350.1.13.10 i [place] [phone] [facility] 134 [facility] 2018-10-24 2018-10-24 Telephone [facility] 1.2.840.114 [id number] Univers 00:00:00 00:00:00 Grant Trevizo 350.1.13.10 it[place] [phone] [facility] 0[address] [facility] 2018-10-21 2018-10-21 Customer Insight Analyst 1, Adc Lab [facility] 1.2.840.114 [id number] Univers 16:25:06 16:40:06 Visit Chloe Reese 350.1.13.10 [place] [id number] [facility] [address] 2018-10-21 2018-10-21 Routine [place], [facility] 1.2.840.114 [id number] Univers 14:13:39 16:02:12 [place] Trevizo 350.1.13.10 it[place] of [place] [facility] [phone] [facility] 134 [facility] 2018-10-21 2018-10-21 Orders Doctor JUAN 1.2.840.114 [id number] Univers 00:00:00 00:00:00 Only Unassigned, SHAYY 350.1.13.10 ity of [place] [facility] 4.2.7.2.686 [place] as [phone] [facility] [address] 2018-10-20 2018-10-20 [facility] 1.2.840.114 [id number] Univers 10:59:20 23:59:00 Encounter Jose Trevizo 350.1.13.10 [place] [phone] [facility] [address] 2018-10-12 2018-10-12 Patient Doctor JUAN 1.2.840.114 [id number] Univers 00:00:00 00:00:00 Secure Msg Unassigned, SHAYY 350.1.13.10 ity of [place] [facility] 4.2.7.2.686 [place] as [phone] [facility] [address] 2018-09-30 2018-09-30 Office [facility] 1.2.991.040 [id number] [facility] 14:06:24 14:55:33 Visit Chris Wild Joseline 350.1.13.10 i [place] [phone] Me dical nal 220 [facility] 2018-09-14 2018-09-14 Outpatient R AMIE, [facility] [id number] [facility] 13:54:55 13:59:00 OLYA ellis [facility] Results Test Description Test Time Test Comments Results Result Comments Source ACETAMINOPHEN 2022-03-11 00:28:27 Test Item Value Reference Range Interpretation Comme nts ACETAMINOP (test code = 9655842139) 10.0-30.0 L ADRIENNE (test code = ADRIENNE) Toxic: Greater than 200 ug/mL @ 4 hour post ingestion or greater than 50 ug/mL @ 12 hour post ingestion Lab Interpretation (test code = Abnormal 38590-2) [facility] 00:20:44 ALCOHOL<10mg/dL03/10/2022 6:20 PM [facility]10 [id number] Toxic>100 Depression of CHEESE COOKER>400 Fatalities ReportedSaint Mark's Medical CenterSALICYLATE2022-12-14 00:18:36 SALICYLATE<10mg/L105/11/2021 6:18 PM [facility]Therapeutic Range: ? Analgesic and Antipyretic Use ? 20- 100 mg/L ? ? Anti-Inflammatory Use ? 100-250 mg/L Toxic Range: ? Greater than 300 mg/LUnJohn Peter Smith HospitalCOMP. METABOLIC PANEL (72596)2022-03-11 00:17:50 Test Item Value Reference Range Interpretation Comments NA (test code = 138 mmol/L 135-145 4883206944) K (test code = 4.2 mmol/L 3.5-5.0 0638232096) CL (test code = 102 mmol/L 98-108 9615686912) CO2 TOTAL (test code = 32 mmol/L 23-31 H 0721422628) AGAP (test code = 2-16 9008393438) BUN (test code = 14 mg/dL 7-23 6718627419) GLUCOSE (test code = 57 mg/dL 70-110 L 6238046335) CREATININE (test code = 0.85 mg/dL 0.50-1.04 0512044632) TOTAL BILI (test code = 0.3 mg/dL 0.1-1.8 7550152052) CALCIUM (test code = 9.8 mg/dL 8.6-10.6 8961136375) T PROTEIN (test code = 6.8 g/dL 6.3-8.2 0587220143) ALBUMIN (test code = 4.2 g/dL 3.5-5.0 7811202138) ALK PHOS (test code = 66 U/L 34-122 9118896510) ALTv (test code = 12 U/L 5-35 1742-6) AST(SGOT) (test code = 15 U/L 13-40 5150261697) eGFR (test code = mL/min/1.73m2 8167708634) ADRIENNE (test code = ADRIENNE) Association of Glomerular Filtration Rate (GFR) and Staging of Kidney Disease* + --+ --+ ------+| GFR (mL/min/1.73 m2) ?| With Kidney Damage ?| ?Without Kidney Damage+ --------+ --------+ +| ?>90 ?| ?Stage one ?| ? Normal ?+ ---+ ---+ -------+| ?60-89 ?| ?Stage two ?| ? Decreased GFR ? + --+ --+ ------+| ?30-59 ?| ?Stage three ?| ? Stage three ? + --+ --+ ------+| ?15-29 ?| ?Stage four ? | ? Stage four ?+ ---+ ---+ -------+| ?<15 (or dialysis) ? ?| ?Stage five ? | ? Stage five ?+ ---+ ---+ -------+ *Each stage assumes the associated GFR level has been in effect for at least three months. ?Stages 1 to 5, with or without kidney disease, indicate chronic kidney disease. Notes: Determination of stages one and two (with eGFR >59mL/min/1.73 m2) requires estimation of kidney damage for at least three months as defined by structural or functional abnormalities of the kidney, manifested by either:Pathological abnormalities or Markers of kidney damage (including abnormalities in the composition of the blood or urine or abnormalities in imaging tests). Lab Interpretation Abnormal (test code = 92366-6) [facility] WITH [id number] 00:11:30 Test Item Value Reference Range Interpretation Comments WBC (test code = See_Comment [Automated 8843-2) message] The sy stem which generated this result transmitted reference range : 4.30 - 11.10 10*3/?L. The reference range was not used to interpret this result as normal/abnormal . RBC (test code = See_Comment [Automated 894-8) message] The sy stem which generated this result transmitted reference range : 3.93 - 5.25 10*6/?L. The reference range was not used to interpret this result as normal/abnormal . HGB (test code = 12.2 g/dL 11.6-15.0 718-7) HCT (test code = 40.1 % 35.7-45.2 4544-3) MCV (test code = 94.8 fL 80.6-95.5 787-2) MCH (test code = 28.8 pg 25.9-32.8 785-6) MCHC (test code = 30.4 g/dL 31.6-35.1 L 786-4) RDW-SD (test code = 48.5 fL 39.0-49.9 05604-7) RDW-CV (test code = 13.9 % 12.0-15.5 788-0) PLT (test code = See_Comment [Automated 427-3) message] The sy stem which generated this result transmitted reference range : 166 - 358 10*3/ ?L. The reference r paulina was not used to interpret this result as normal/abnormal . MPV (test code = 10.6 fL 9.5-12.9 11285-5) NRBC/100 WBC (test See_Comment [Automat ed code = 7233452428) message] The system which generated this result transmitted reference range : 0.0 - 10.0 /100 WBCs. The refer ence range was not u sed to interpret th is result as normal/abnormal . NRBC x10^3 (test code See_Comment [Auto mated = 4240686249) message] The s ystem which generated this result transmitted reference range : 10*3/?L. The reference range was not used to interpret this result as normal/abnormal . GRAN MAT (NEUT) % 62.2 % (test code = 770-8) IMM GRAN % (test code 0.30 % = 0557639672) LYMPH % (test code = 27.1 % 736-9) MONO % (test code = 7.8 % 5905-5) EOS % (test code = 1.5 % 713-8) BASO % (test code = 1.1 % 706-2) GRAN MAT x10^3(ANC) 4.56 10*3/uL 1.88-7.09 (test code = 8418377435) IMM GRAN x10^3 (test 0.00-0.06 code = 7090886497) LYMPH x10^3 (test code 1.99 10*3/uL 1.32-3.29 = 731-0) MONO x10^3 (test code 0.57 10*3/uL 0.33-0.92 = 742-7) EOS x10^3 (test code = 0.11 10*3/uL 0.03-0.39 711-2) BASO x10^3 (test code 0.08 10*3/uL 0.01-0.07 H = 704-7) Lab Interpretation Abnormal (test code = 48600-7) [facility] [id number] 23:46:00 Test Item Value Reference Range Interpretation Comments POCT PREG (test code = 1605) NEGATIVE On board controls acceptable with present C Line (test code = 3574) POCT PREG LOT # (test code = 3575) [id number] POCT PREG TEST DATE (test 06/27/2023 code = 3576) Lab Interpretation (test code = Normal 97516-5) [facility] W SPECIFIC [id number] 16:50:00 Test Item Value Reference Range Interpretation Comments POCT U SP GRAV (test code = 1.020 mg/dl 1.005-1.025 3255) POCT PH U (test code = 3254) 6 mg/dl 5-8 POCT U LEUK EST (test code = + Negative - Negative 3263) POCT U NIT (test code = 3262) neg Negative - Negative POCT U PROT (test code = trace Negative - Negative 3259) POCT U GLU (test code = 3256) normal Negative - Negative POCT U KETONE (test code = neg Negative - Negative 3258) POCT U UROBILI (test code = 1 mg/dl 0.2-1 3260) POCT U BILI (test code = neg Negative - Negative 3261) POCT U BLD (test code = 3257) trace Negative - Negative POCT U COLOR (test code = dark 3266) POCT U APPEAR (test code = clear 3267) [facility] SPECIFIC [id number] 16:50:00 Test Item Value Reference Range Interpretation Comments POCT U SP GRAV (test code = 1.020 mg/dl 1.005-1.025 3255) POCT PH U (test code = 3254) 6 mg/dl 5-8 POCT U LEUK EST (test code = + Negative - Negative 3263) POCT U NIT (test code = 3262) neg Negative - Negative POCT U PROT (test code = trace Negative - Negative 3259) POCT U GLU (test code = 3256) normal Negative - Negative POCT U KETONE (test code = neg Negative - Negative 3258) POCT U UROBILI (test code = 1 mg/dl 0.2-1 3260) POCT U BILI (test code = neg Negative - Negative 3261) POCT U BLD (test code = 3257) trace Negative - Negative POCT U COLOR (test code = dark 3266) POCT U APPEAR (test code = clear 3267) [facility]"
--- NOTE | 2022-08-08 16:30 | EDPHYS ---
Physician Documentation [facility] Name: Sharyn Franco Age: 41 yrs Sex: Female : 1980 Arrival Date: 08/08/2022 Time: 15:03 Bed 19 Private MD: ED Physician Gaurav Garza HPI: 08/08 16:25 This 41 yrs old Female presents to ER via Wheelchair with complaints of Fall Injury, kb Nose Pain. 16:25 Details of fall: The patient fell from seated position. Onset: The symptoms/episode kb began/occurred yesterday. Associated injuries: The patient sustained injury to the head, pain, nose, painful injury, swelling. Severity of symptoms: At their worst the symptoms were moderate, in the emergency department the symptoms are unchanged. The patient has not experienced similar symptoms in the past. The patient has not recently seen a physician. Pt reports she was adjusting the settings on her new loupes and when she took them off she got lightheaded and fell off the chair. states she hit her face. +loc. This occurred yesterday and today she is having increased pain and swelling to nose. 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 - Social history:: Smoking status: Patient denies any tobacco usage or history of. ROS: 16:20 Constitutional: Negative for fever, chills, and weight loss. kb 16:20 ENT: Positive for pain in nose. 16:20 Neuro: Positive for headache, loss of consciousness. 16:20 All other systems are negative. Exam: 16:22 Head/Face: Normocephalic, atraumatic. Cardiovascular: Regular rate and rhythm with a kb normal S1 and S2. No gallops, murmurs, or rubs. No pulse deficits. Respiratory: Respirations even and unlabored. No increased work of breathing. Talking in full sentences Abdomen/GI: Soft, non-tender. No distention Skin: Warm, dry with normal turgor. Normal color. MS/ Extremity: Pulses equal, no cyanosis. Neurovascular intact. Full, normal range of motion. Neuro: Awake and alert, GCS 15, oriented to person, place, time, and situation. Moves all extremities. Normal gait. 16:22 Constitutional: The patient appears alert, awake, uncomfortable. 16:22 ENT: Nose: External nose: swelling is noted, Nasal septum: no septal hematoma appreciated. Vital Signs: 15:34 BP 119 / 77; Pulse 54; Resp 18 S; Temp 97.1(TE); Pulse Ox 100% on R/A; aa5 17:00 BP 104 / 70; Pulse 56; Resp 18; Pulse Ox 99% on R/A; eh3 MDM: 15:06 Patient medically screened. bs3 16:24 Differential diagnosis: closed head injury, contusion, fracture, laceration. Data kb reviewed: vital signs, nurses notes. Counseling: I had a detailed discussion with the patient and/or guardian regarding: the historical points, exam findings, and any diagnostic results supporting the discharge/admit diagnosis, radiology results, the need for outpatient follow up, an ENT specialist, to return to the emergency department if symptoms worsen or persist or if there are any questions or concerns that arise at home. 16:28 Management of patient was discussed with the following: Dr Garza, who evaluated the kb patient as well. Recommends antibiotics and follow up with ENT. 18:07 ED course: Pt initially reports pain to face and head with muscle tightness that kb radiated down body. Upon discharge pt was complaining of pain in the left hip. Discussed x-ray with pt. States she just needs some vicodin to go home with so she can rest. Pt educated that we could not prescribe vicodin from the ED. pt agreed to x-ray of hip. x-ray tech went into room to complete x-rays and pt refused, stating she just wants to go home since she isn't getting pain medication. Pt ambulated out of ED via steady gait. 08/08 15:12 Order name: CT Head Brain wo Cont; Complete Time: 15:56 kb 08/08 15:12 Order name: CT Facial Bones W/O Con; Complete Time: 15:56 kb 08/08 15:12 Order name: EKG; Complete Time: 15:13 kb 08/08 15:12 Order name: EKG - Nurse/Tech; Complete Time: 16:31 kb Administered Medications: 16:00 Drug: Hydrocodone-Acetaminophen PO (7.5 mg-325 mg) 1 tabs Route: PO; eh3 17:32 Follow up: Response: No adverse reaction eh3 17:00 Drug: Ketorolac IM 30 mg Route: IM; Site: right ventrogluteal; eh3 17:32 Follow up: Response: No adverse reaction eh3 17:15 Drug: Amoxicillin-Clavulanate PO 875 mg Route: PO; eh3 17:32 Follow up: Response: No adverse reaction eh3 Disposition Summary: 08/08/22 18:05 Discharge Ordered Location: Home(08/08/22 18:05) kb Condition: Stable(08/08/22 18:05) kb Diagnosis - Unspecified injury of head, initial encounter(08/08/22 18:05) kb - Contusion of nose(08/08/22 18:05) kb - Low back pain kb Followup: kb - With: Emergency Department - When: As needed - Reason: Worsening of condition Followup: kb - With: Private Physician - When: 2 - 3 days - Reason: Recheck today's complaints, Continuance of care, Re-evaluation by your physician Discharge Instructions: - Discharge Summary Sheet kb - Musculoskeletal Pain kb - Head Injury, Adult, Ltem-qw-[id number] kb Forms: - Medication Reconciliation Form kb - Thank You Letter kb - Antibiotic Education kb - Prescription Opioid Use kb Prescriptions: - Diclofenac Sodium 75 mg Oral Tablet Sustained Release - take 1 tablet by ORAL route 2 times per day; 30 tablet; Refills: 0, Product kb Selection Permitted - orphenadrine citrate 100 mg Oral Tablet Sustained Release - take 1 tablet by ORAL route 2 times per day As needed; 20 tablet; Refills: 0, kb Product Selection Permitted Signatures: Dispatcher [employer] Yue Barnard, KENIA-C BUTTON SEWER-Isha Del Rio RN RN aa5 Nighat Mckeon RN RN eh3 Gaurav Garza MD MD bs3 Corrections: (The following items were deleted from the chart) 17:53 16:29 Home kb kb 17:53 16:29 Stable kb kb 17:53 16:29 Unspecified injury of head, initial encounter kb kb 17:53 16:29 Contusion of nose kb kb
--- NOTE | 2022-08-08 16:30 | ER ---
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 Pt c/o nose pain. Incident occurred 08/07/22. Coronavirus screen: At this time, the client does not indicate any symptoms associated with coronavirus-19. Ebola Screen: Patient denies travel to an Ebola-affected area in the 21 days before illness onset. Initial Sepsis Screen: Does the patient meet any 2 criteria? No. Patient's initial sepsis screen is negative. Does the patient have a suspected source of infection? No. Patient's initial sepsis screen is negative. Risk Assessment: Do you want to hurt yourself or someone else? Patient reports no desire to harm self or others. Onset of symptoms was August 07, 2022. 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 - Social history:: Smoking status: Patient denies any tobacco usage or history of. Screenin:49 [facility] ED Fall Risk Assessment (Adult) Score/Fall Risk Level 3 or more points = High eh3 Risk Oriented to surroundings, Maintained a safe environment, Educated pt \\T\\ family on fall prevention, incl call for assistance when getting out of bed, Assessed \\T\\ reinforced patient's understanding of fall precautions, Provided non-skid footwear, Hourly rounding (assess needs \\T\\ fall precautionary measures) done. Abuse screen: Denies threats or abuse. Denies injuries from another. Nutritional screening: No deficits noted. Tuberculosis screening: No symptoms or risk factors identified. Assessment: 15:49 General: Appears distressed, uncomfortable, Behavior is cooperative, appropriate for [facility] age, crying. Pain: Complains of pain in nose. Neuro: Level of Consciousness is awake, alert, obeys commands, Oriented to person, place, time, situation. Cardiovascular: Capillary refill < 3 seconds Patient's skin is warm and dry. Respiratory: Airway is patent Respiratory effort is even, unlabored, Respiratory pattern is regular, symmetrical. GI: Abdomen is flat, non-distended. : No signs and/or symptoms were reported regarding the genitourinary system. EENT: Nares with drainage noted on left. Derm: Bruising that is dark purple, on nose. 17:00 Reassessment: Patient appears in no apparent distress at this time. Patient and/or [facility] family updated on plan of care and expected duration. Pain level reassessed. Patient is alert, oriented x 3, equal unlabored respirations, skin warm/dry/pink. Patient states symptoms have not improved. 17:32 Reassessment: Pt unsatisfied with diagnosis and medications provided. Herbert Garcia NP at [facility] bedside speaking with pt. 18:02 Reassessment: Pt complained of back pain, provider ordered xray of spine, pt refused [facility] xray and decided to leave hospital. Vital Signs: 15:34 BP 119 / 77; Pulse 54; Resp 18 S; Temp 97.1(TE); Pulse Ox 100% on R/A; aa5 17:00 BP 104 / 70; Pulse 56; Resp 18; Pulse Ox 99% on R/A; 3 ED Course: 15:05 Patient arrived in ED. mr 15:06 Gaurav Garza MD is Attending Physician. bs3 15:10 Yue Garcia FNP-C is [facility]. kb 15:33 CT Head Brain wo Cont In Process Unspecified. EDMS 15:33 CT Facial Bones W/O Con In Process Unspecified. EDMS 15:34 Arm band placed on. aa5 15:37 Triage completed. aa5 15:49 Nighat Mckeon, RN is Primary Nurse. 3 15:49 Patient has correct armband on for positive identification. Bed in low position. Call eh3 light in reach. Side rails up X2. Pulse ox on. NIBP on. Door closed. Noise minimized. Lights dimmed. Warm blanket given. 18:03 No provider procedures requiring assistance completed. Patient did not have IV access eh3 during this emergency room visit. Administered Medications: 16:00 Drug: Hydrocodone-Acetaminophen PO (7.5 mg-325 mg) 1 tabs Route: PO; eh3 17:32 Follow up: Response: No adverse reaction eh3 17:00 Drug: Ketorolac IM 30 mg Route: IM; Site: right ventrogluteal; eh3 17:32 Follow up: Response: No adverse reaction eh3 17:15 Drug: Amoxicillin-Clavulanate PO 875 mg Route: PO; eh3 17:32 Follow up: Response: No adverse reaction eh3 Medication: 18:03 VIS not applicable for this client. eh3 Outcome: 16:29 Discharge ordered by . kb 18:03 Discharged to home ambulatory. eh3 18:03 Condition: stable 18:03 Discharge instructions given to patient, Instructed on discharge instructions, follow up and referral plans. no drinking with medication, no driving heavy equipment, medication usage, Demonstrated understanding of instructions, follow-up care, medications, Prescriptions given X 3. 18:05 Discharge ordered by MD. kb 18:05 Patient left the ED. eh3 Signatures: Dispatcher [employer] EDMS Yue Garcia, JOSE G AQUINO-Brandee Vickers mr Bueno, Isha, RN RN aa5 Nighat Mckeon RN RN eh3 Gaurav Garza MD MD bs3
[2022-08-08] MEDS ORDERED: KETOROLAC 30 MG/ML INJ ONE (17:09)
[2022-08-08] MEDS ORDERED: AMOX/K CLAV 875 MG TAB ONE (17:19)
[2022-08-08 18:13] VITALS: TEMP 97.1
[2022-08-08 18:18] VITALS: BP 104/70; O2SAT 99
--- NOTE | 2022-08-09 14:44 | EKG ---
Test Date: 2022-08-08 Test Time: 16:26:02 Safety Trainer: EMELINA MEASUREMENT RESULTS: Intervals: Rate: 53 OK: 162 QRSD: 80 QT: 466 QTc: 437 Rufe: P: 69 OK: 162 QRS: 87 T: 76 INTERPRETIVE STATEMENTS: Sinus bradycardia with marked sinus arrhythmia Otherwise normal ECG No previous ECG available for comparison Electronically Signed On 08-09-22 14:43:01 CDT by Ryan Reyes
== END 2022-08-08 18:05 | disposition home or self-care (01) ==
LOC: ER 15:03
DX: S00.33XA Contusion of nose, initial encounter (principal); M54.50 Low back pain, unspecified; Z88.5 Allergy status to narcotic agent
CPT/HCPCS: 70450; 70486; 76377; 93005; 96372; 99284

== ENCOUNTER 2022-08-10 16:08 | Emergency (ER) | payer OTHER ==
--- OUTSIDE RECORDS SUMMARY | 2022-08-10 16:23 | XMS REPORT | Continuity of Care Document ---
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 mouth in [place] tablet 00 the Medical morning Branch and 2 tablets at noon and 2 tablets in the evening. clonazePAM 3-0 Yes [id number] 1mg Take 2 [facility] (KLONOPIN) 2-27 tablets by ity of 0.5 mg 00:00: mouth in [place] tablet 00 the Medical morning Branch and 2 tablets at noon and 2 tablets in the evening. clonazePAM 3-0 Yes [id number] 1mg Take 2 [facility] (KLONOPIN) 2-27 tablets by ity of 0.5 mg 00:00: mouth in [place] tablet 00 the Medical morning Branch and 2 tablets at noon and 2 tablets in the evening. clonazePAM 3-0 Yes [id number] 1mg Take 2 [facility] (KLONOPIN) 2-27 tablets by ity of 0.5 mg 00:00: mouth in [place] tablet 00 the Medical morning Branch and 2 tablets at noon and 2 tablets in the evening. clonazePAM 2023-0 Yes [id number] 1mg Take 2 [facility] (KLONOPIN) 2-27 tablets by ity of 0.5 mg 00:00: mouth in [place] tablet 00 the Medical morning Branch and 2 tablets at noon and 2 tablets in the evening. clonazePAM 2023-0 Yes [id number] 1mg Take 2 [facility] (KLONOPIN) 2-27 tablets by ity of 0.5 mg 00:00: mouth in [place] tablet 00 the Medical morning Branch and 2 tablets at noon and 2 tablets in the evening. clonazePAM 2023-0 Yes [id number] 1mg Take 2 [facility] (KLONOPIN) 2-27 tablets by ity of 0.5 mg 00:00: mouth in [place] tablet 00 the Medical morning Branch and 2 tablets at noon and 2 tablets in the evening. clonazePAM 2023-0 Yes [id number] 1mg Take 2 [facility] (KLONOPIN) 2-27 tablets by ity of 0.5 mg 00:00: mouth in [place] tablet 00 the Medical morning Branch and 2 tablets at noon and 2 tablets in the evening. clonazePAM 2023-0 Yes [id number] 1mg Take 2 [facility] (KLONOPIN) 2-27 tablets by ity of 0.5 mg 00:00: mouth in [place] tablet 00 the Medical morning Branch and 2 tablets at noon and 2 tablets in the evening. clonazePAM 2023-0 Yes [id number] 1mg Take 2 [facility] (KLONOPIN) 2-27 tablets by ity of 0.5 mg 00:00: mouth in [place] tablet 00 the Medical morning Branch and 2 tablets at noon and 2 tablets in the evening. clonazePAM 2023-0 Yes [id number] 1mg Take 2 [facility] (KLONOPIN) 2-27 tablets by ity of 0.5 mg 00:00: mouth in [place] tablet 00 the Medical morning Branch and 2 tablets at noon and 2 tablets in the evening. clonazePAM 2023-0 Yes [id number] 1mg Take 2 [facility] (KLONOPIN) 2-27 tablets by ity of 0.5 mg 00:00: mouth in [place] tablet 00 the Medical morning Branch and 2 tablets at noon and 2 tablets in the evening. clonazePAM 2023-0 Yes [id number] 1mg Take 2 [facility] (KLONOPIN) 2-27 tablets by ity of 0.5 mg 00:00: mouth in [place] tablet 00 the Medical morning Branch and 2 tablets at noon and 2 tablets in the evening. clonazePAM 2023-0 Yes [id number] 1mg Take 2 [facility] (KLONOPIN) 2-27 tablets by ity of 0.5 mg 00:00: mouth in [place] tablet 00 the Medical morning Branch and 2 tablets at noon and 2 tablets in the evening. clonazePAM 2023-0 Yes [id number] 1mg Take 2 [facility] (KLONOPIN) 2-27 tablets by ity of 0.5 mg 00:00: mouth in [place] tablet 00 the Medical morning Branch and 2 tablets at noon and 2 tablets in the evening. clonazePAM 2023-0 Yes [id number] 1mg Take 2 [facility] (KLONOPIN) 2-27 tablets by ity of 0.5 mg 00:00: mouth in [place] tablet 00 the Medical morning Branch and 2 tablets at noon and 2 tablets in the evening. clonazePAM 2023-0 Yes [id number] 1mg Take 2 [facility] (KLONOPIN) 2-27 tablets by ity of 0.5 mg 00:00: mouth in [place] tablet 00 the Medical morning Branch and 2 tablets at noon and 2 tablets in the evening. clonazePAM 2023-0 Yes [id number] 1mg Take 2 [facility] (KLONOPIN) 2-27 tablets by ity of 0.5 mg 00:00: mouth in [place] tablet 00 the Medical morning Branch and 2 tablets at noon and 2 tablets in the evening. clonazePAM 2023-0 Yes [id number] 1mg Take 2 [facility] (KLONOPIN) 2-27 tablets by ity of 0.5 mg 00:00: mouth in [place] tablet 00 the Medical morning Branch and 2 tablets at noon and 2 tablets in the evening. clonazePAM 2023-0 Yes [id number] 1mg Take 2 [facility] (KLONOPIN) 2-27 tablets by ity of 0.5 mg 00:00: mouth in [place] tablet 00 the Medical morning Branch and 2 tablets at noon and 2 tablets in the evening. clonazePAM 2023-0 Yes [id number] 1mg Take 2 [facility] (KLONOPIN) 2-27 tablets by ity of 0.5 mg 00:00: mouth in [place] tablet 00 the Medical morning Branch and 2 tablets at noon and 2 tablets in the evening. clonazePAM 2023-0 Yes [id number] 1mg Take 2 [facility] (KLONOPIN) 2-27 tablets by ity of 0.5 mg 00:00: mouth in [place] tablet 00 the Medical morning Branch and 2 tablets at noon and 2 tablets in the evening. clonazePAM 2023-0 Yes [id number] 1mg Take 2 [facility] (KLONOPIN) 2-27 tablets by ity of 0.5 mg 00:00: mouth in [place] tablet 00 the Medical morning Branch and 2 tablets at noon and 2 tablets in the evening. clonazePAM 2023-0 Yes [id number] 1mg Take 1 [facility] 1 mg tablet 2-27 tablet by ity of 00:00: mouth in [place] 00 the Medical morning Branch and 1 tablet at noon and 1 tablet in the evening. dextroamphe 2023-0 Yes [id number] 12.5mg Take 1 [facility] tamine-amph 2-27 tablet by ity of etamine 00:00: mouth in [place] ([facility]) 00 the Medical 12.5 mg morning Branch tablet and 1 tablet at noon and 1 tablet in the evening. clonazePAM 2023-0 Yes [id number] 1mg Take 1 [facility] 1 mg tablet 2-27 tablet by ity of 00:00: mouth in [place] 00 the Medical morning Branch and 1 tablet at noon and 1 tablet in the evening. dextroamphe 2023-0 Yes [id number] 12.5mg Take 1 [facility] tamine-amph 2-27 tablet by ity of etamine 00:00: mouth in [place] ([facility]) 00 the Medical 12.5 mg morning Branch tablet and 1 tablet at noon and 1 tablet in the evening. dextroamphe 2023-0 Yes [id number] 12.5mg Take 1 [facility] tamine-amph 2-27 tablet by [facility] of etamine 00:00: mouth in [place] [facility] Medical 12.5 mg morning Branch tablet and 1 tablet at noon and 1 tablet in the evening. clonazePAM 2023-0 Yes [id number] 1mg Take 2 [facility] (KLONOPIN) 2-27 tablets by ity of 0.5 mg 00:00: mouth in [place] tablet 00 the Medical morning Branch and 2 tablets at noon and 2 tablets in the evening. dextroamphe 2023-0 Yes [id number] 12.5mg Take 1 [facility] tamine-amph 2-27 tablet by ity of etamine 00:00: mouth in [place] ([facility]) 00 the Medical 12.5 mg morning Branch tablet and 1 tablet at noon and 1 tablet in the evening. clonazePAM 2023-0 Yes [id number] 1mg Take 2 [facility] (KLONOPIN) 2-27 tablets by ity of 0.5 mg 00:00: mouth in [place] tablet 00 the Medical morning Branch and 2 tablets at noon and 2 tablets in the evening. dextroamphe 2023-0 Yes [id number] 12.5mg Take 1 [facility] tamine-amph 2-27 tablet by ity of etamine 00:00: mouth in [place] ([facility]) 00 the Medical 12.5 mg morning Branch tablet and 1 tablet at noon and 1 tablet in the evening. clonazePAM 2023-0 Yes [id number] 1mg Take 2 [facility] (KLONOPIN) 2-27 tablets by ity of 0.5 mg 00:00: mouth in [place] tablet 00 the Medical morning Branch and 2 tablets at noon and 2 tablets in the evening. clonazePAM 2023-0 3- No [id number] 1mg Take 2 [facility] (KLONOPIN) 2-27 05-09 tablets by it y of 0.5 mg 00:00: 00:00 mouth in [place] tablet 00 :00 the Medical morning Branch and 2 tablets at noon and 2 tablets in the evening. clonazePAM 3-0 3- No [id number] 1mg Take 2 [facility] (KLONOPIN) 2-27 05-09 tablets by it y of 0.5 mg 00:00: 00:00 mouth in [place] tablet 00 :00 the Medical morning Branch and 2 tablets at noon and 2 tablets in the evening. dextroamphe 3-0 3- No [id number] 12.5mg Take 1 [facility] tamine-amph 2-27 03-09 tablet by it y of etamine 00:00: 00:00 mouth in [place] ([facility]) 00 :00 the Medical 12.5 mg morning Branch tablet and 1 tablet at noon and 1 tablet in the evening. clonazePAM 3-0 3- No [id number] 1mg Take 1 [facility] 1 mg tablet 2-25 05- tablet by it y of 00:00: 00:00 mouth in [place] 00 :00 the Medical morning Branch and 1 tablet at noon and 1 tablet in the evening. dextroamphe 2023-0 Yes [id number] 12.5mg Take 1 [facility] tamine-amph 2-01 tablet by ity of etamine 00:00: mouth in [place] ([facility]) 00 the Medical 12.5 mg morning Branch tablet and 1 tablet at noon and 1 tablet in the evening. dextroamphe 2023-0 Yes [id number] 12.5mg Take 1 [facility] tamine-amph 2-01 tablet by ity of etamine 00:00: mouth in [place] ([facility]) 00 the Medical 12.5 mg morning Branch tablet and 1 tablet at noon and 1 tablet in the evening. dextroamphe 2023-0 Yes [id number] 12.5mg Take 1 [facility] tamine-amph 2-01 tablet by ity of etamine 00:00: mouth in [place] ([facility]) 00 the Medical 12.5 mg morning Branch tablet and 1 tablet at noon and 1 tablet in the evening. dextroamphe 2023-0 Yes [id number] 12.5mg Take 1 [facility] tamine-amph 2-01 tablet by ity of etamine 00:00: mouth in [place] ([facility]) 00 the Medical 12.5 mg morning Branch tablet and 1 tablet at noon and 1 tablet in the evening. dextroamphe 2023-0 3- No [id number] 12.5mg Take 1 [facility] tamine-amph 2-01 02-27 tablet by it y of etamine 00:00: 00:00 mouth in [place] ([facility]) 00 :00 the Medical 12.5 mg morning Branch tablet and 1 tablet at noon and 1 tablet in the evening. dextroamphe 2023-0 3- No [id number] 12.5mg Take 1 [facility] tamine-amph 2-01 -27 tablet by it y of etamine 00:00: 00:00 mouth in [place] ([facility]) 00 :00 the Medical 12.5 mg morning Branch tablet and 1 tablet at noon and 1 tablet in the evening. dextroamphe 2023-0 3- No [id number] 12.5mg Take 1 [facility] tamine-amph 2-01 -27 tablet by it y of etamine 00:00: 00:00 mouth in [place] ([facility]) 00 :00 the Medical 12.5 mg morning Branch tablet and 1 tablet at noon and 1 tablet in the evening. dextroamphe 2023-0 Yes [id number] 12.5mg Take 1 [facility] tamine-amph 1-10 tablet by ity of etamine 00:00: mouth in [place] ([facility]) 00 the Medical 12.5 mg morning Branch tablet and 1 tablet at noon and 1 tablet in the evening. dextroamphe 2023-0 Yes [id number] 12.5mg Take 1 [facility] tamine-amph 1-10 tablet by ity of etamine 00:00: mouth in [place] ([facility]) 00 the Medical 12.5 mg morning Branch tablet and 1 tablet at noon and 1 tablet in the evening. dextroamphe 2023-0 Yes [id number] 12.5mg Take 1 [facility] tamine-amph 1-10 tablet by ity of etamine 00:00: mouth in [place] ([facility]) 00 the Medical 12.5 mg morning Branch tablet and 1 tablet at noon and 1 tablet in the evening. dextroamphe 2023-0 Yes [id number] 12.5mg Take 1 [facility] tamine-amph 1-10 tablet by ity of etamine 00:00: mouth in [place] ([facility]) 00 the Medical 12.5 mg morning Branch tablet and 1 tablet at noon and 1 tablet in the evening. dextroamphe 2023-0 Yes [id number] 12.5mg Take 1 [facility] tamine-amph 1-10 tablet by ity of etamine 00:00: mouth in [place] ([facility]) 00 the Medical 12.5 mg morning Branch tablet and 1 tablet at noon and 1 tablet in the evening. dextroamphe 2023-0 Yes [id number] 12.5mg Take 1 [facility] tamine-amph 1-10 tablet by ity of etamine 00:00: mouth in [place] ([facility]) 00 the Medical 12.5 mg morning Branch tablet and 1 tablet at noon and 1 tablet in the evening. dextroamphe 2023-0 Yes [id number] 12.5mg Take 1 [facility] tamine-amph 1-10 tablet by ity of etamine 00:00: mouth in [place] ([facility]) 00 the Medical 12.5 mg morning Branch tablet and 1 tablet at noon and 1 tablet in the evening. dextroamphe 2023-0 2023- No [id number] 12.5mg Take 1 [facility] tamine-amph 1-10 - tablet by it y of etamine 00:00: 00:00 mouth in [place] ([facility]) 00 :00 the Medical 12.5 mg morning Branch tablet and 1 tablet at noon and 1 tablet in the evening. dextroamphe 2023-0 2022- No [id number] 12.5mg Take 1 [facility] tamine-amph 1-10 02- tablet by it y of etamine 00:00: 00:00 mouth in [place] ([facility]) 00 :00 the Medical 12.5 mg morning Branch tablet and 1 tablet at noon and 1 tablet in the evening. dextroamphe 2022-0 Yes [id number] 15mg Take 1 [facility] tamine-amph 1-09 tablet by ity of etamine 00:00: mouth in [place] ([facility] 00 the Medical 15 mg morning Branch tablet and 1 tablet at noon and 1 tablet in the evening. dextroamphe 2022-0 Yes [id number] 15mg Take 1 [facility] tamine-amph 1-09 tablet by ity of etamine 00:00: mouth in [place] ([facility]) 00 the Medical 15 mg morning Branch tablet and 1 tablet at noon and 1 tablet in the evening. dextroamphe 2022-0 2022- No [id number] 15mg Take 1 [facility] tamine-amph 1-09 - tablet by it y of etamine 00:00: 00:00 mouth in [place] [facility] :00 the Medical 15 mg morning Branch tablet and 1 tablet at noon and 1 tablet in the evening. SYNTHROID 2022-0 Yes [id number] TAKE 1 [facility] nivers 150 mcg 1-02 TABLET BY ity of tablet 00:00: MOUTH [place] 00 EVERY DAY Medical IN THE [place] MORNING SYNTHROID 2022-0 Yes [id number] TAKE 1 [facility] nivers 150 mcg 1-02 TABLET BY ity of tablet 00:00: MOUTH [place] 00 EVERY DAY Medical IN THE [place] MORNING SYNTHROID 3-0 Yes [id number] TAKE 1 [facility] nivers 150 mcg 1-02 TABLET BY ity of tablet 00:00: MOUTH [place] 00 EVERY DAY Medical IN THE [place] MORNING SYNTHROID 2022-0 Yes [id number] TAKE 1 U nivers 150 mcg 1-02 TABLET BY ity of tablet 00:00: MOUTH [place] 00 EVERY DAY Medical IN THE [place] MORNING SYNTHROID 2022-0 Yes [id number] TAKE 1 U nivers 150 mcg 1-02 TABLET BY ity of tablet 00:00: MOUTH [place] 00 EVERY DAY Medical IN THE [place] MORNING SYNTHROID 2022-0 Yes [id number] TAKE 1 U nivers 150 mcg 1-02 TABLET BY ity of tablet 00:00: MOUTH [place] 00 EVERY DAY Medical IN THE [facility] SYNTHROID 0 Yes [id number] TAKE 1 U nivers 150 mcg 1-02 TABLET BY ity of tablet 00:00: MOUTH [place] 00 EVERY DAY Medical IN THE [facility] SYNTHROID 0 Yes [id number] TAKE 1 U nivers 150 mcg 1-02 TABLET BY ity of tablet 00:00: MOUTH [place] 00 EVERY DAY Medical IN THE [facility] SYNTHROID Yes [id number] TAKE 1 U nivers 150 mcg 1-02 TABLET BY ity of tablet 00:00: MOUTH [place] 00 EVERY DAY Medical IN THE [facility] SYNTHROID Yes [id number] TAKE 1 U nivers 150 mcg 1-02 TABLET BY ity of tablet 00:00: MOUTH [place] 00 EVERY DAY Medical IN THE [facility] SYNTHROID Yes [id number] TAKE 1 U nivers 150 mcg 1-02 TABLET BY ity of tablet 00:00: MOUTH [place] 00 EVERY DAY Medical IN THE [facility] SYNTHROID Yes [id number] TAKE 1 U nivers 150 mcg 1-02 TABLET BY ity of tablet 00:00: MOUTH [place] 00 EVERY DAY Medical IN THE [facility] SYNTHROID Yes [id number] TAKE 1 U nivers 150 mcg 1-02 TABLET BY ity of tablet 00:00: MOUTH [place] 00 EVERY DAY Medical IN THE [facility] SYNTHROID 0 Yes [id number] TAKE 1 U nivers 150 mcg 1-02 TABLET BY ity of tablet 00:00: MOUTH [place] 00 EVERY DAY Medical IN THE [facility] SYNTHROID 0 Yes [id number] TAKE 1 U nivers 150 mcg 1-02 TABLET BY ity of tablet 00:00: MOUTH [place] 00 EVERY DAY Medical IN THE [facility] SYNTHROID 0 Yes [id number] TAKE 1 U nivers 150 mcg 1-02 TABLET BY ity of tablet 00:00: MOUTH [place] 00 EVERY DAY Medical IN THE [facility] SYNTHROID 0 Yes [id number] TAKE 1 U nivers 150 mcg 1-02 TABLET BY ity of tablet 00:00: MOUTH [place] 00 EVERY DAY Medical IN THE [facility] SYNTHROID Yes [id number] TAKE 1 U nivers 150 mcg 1-02 TABLET BY ity of tablet 00:00: MOUTH [place] 00 EVERY DAY Medical IN THE [facility] SYNTHROID 0 Yes [id number] TAKE 1 U nivers 150 mcg 1-02 TABLET BY ity of tablet 00:00: MOUTH [place] 00 EVERY DAY Medical IN THE [facility] SYNTHROID 0 Yes [id number] TAKE 1 U nivers 150 mcg 1-02 TABLET BY ity of tablet 00:00: MOUTH [place] 00 EVERY DAY Medical IN THE [facility] SYNTHROID Yes [id number] TAKE 1 U nivers 150 mcg 1-02 TABLET BY ity of tablet 00:00: MOUTH [place] 00 EVERY DAY Medical IN THE [facility] SYNTHROID Yes [id number] TAKE 1 U nivers 150 mcg 1-02 TABLET BY ity of tablet 00:00: MOUTH [place] 00 EVERY DAY Medical IN THE [facility] SYNTHROID Yes [id number] TAKE 1 U nivers 150 mcg 1-02 TABLET BY ity of tablet 00:00: MOUTH [place] 00 EVERY DAY Medical IN THE [facility] SYNTHROID Yes [id number] TAKE 1 U nivers 150 mcg 1-02 TABLET BY ity of tablet 00:00: MOUTH [place] 00 EVERY DAY Medical IN THE [facility] SYNTHROID Yes [id number] TAKE 1 U nivers 150 mcg 1-02 TABLET BY ity of tablet 00:00: MOUTH [place] 00 EVERY DAY Medical IN THE [facility] SYNTHROID 0 Yes [id number] TAKE 1 U nivers 150 mcg 1-02 TABLET BY ity of tablet 00:00: MOUTH [place] 00 EVERY DAY Medical IN THE [facility] SYNTHROID 0 Yes [id number] TAKE 1 U nivers 150 mcg 1-02 TABLET BY ity of tablet 00:00: MOUTH [place] 00 EVERY DAY Medical IN THE [facility] SYNTHROID 0 Yes [id number] TAKE 1 U nivers 150 mcg 1-02 TABLET BY ity of tablet 00:00: MOUTH [place] 00 EVERY DAY Medical IN THE [facility] SYNTHROID 0 Yes [id number] TAKE 1 U nivers 150 mcg 1-02 TABLET BY ity of tablet 00:00: MOUTH [place] 00 EVERY DAY Medical IN THE [facility] SYNTHROID 0 Yes [id number] TAKE 1 U nivers 150 mcg 1-02 TABLET BY ity of tablet 00:00: MOUTH [place] 00 EVERY DAY Medical IN THE [facility] SYNTHROID Yes [id number] TAKE 1 U nivers 150 mcg 1-02 TABLET BY ity of tablet 00:00: MOUTH [place] 00 EVERY DAY Medical IN THE [facility] SYNTHROID Yes [id number] TAKE 1 U nivers 150 mcg 1-02 TABLET BY ity of tablet 00:00: MOUTH [place] 00 EVERY DAY Medical IN THE [facility] SYNTHROID Yes [id number] TAKE 1 [facility] nivers 150 mcg 1-02 TABLET BY ity of tablet 00:00: MOUTH [place] 00 EVERY DAY Medical IN THE [facility] SYNTHROID Yes [id number] TAKE 1 U nivers 150 mcg 1-02 TABLET BY ity of tablet 00:00: MOUTH [place] 00 EVERY DAY Medical IN THE [facility] SYNTHROID Yes [id number] TAKE 1 U nivers 150 mcg 1-02 TABLET BY ity of tablet 00:00: MOUTH [place] 00 EVERY DAY Medical IN THE [facility] SYNTHROID Yes [id number] TAKE 1 U nivers 150 mcg 1-02 TABLET BY ity of tablet 00:00: MOUTH [place] 00 EVERY DAY Medical IN THE [facility] SYNTHROID Yes [id number] TAKE 1 U nivers 150 mcg 1-02 TABLET BY ity of tablet 00:00: MOUTH [place] 00 EVERY DAY Medical IN THE [facility] SYNTHROID Yes [id number] TAKE 1 U nivers 150 mcg 1-02 TABLET BY ity of tablet 00:00: MOUTH [place] 00 EVERY DAY Medical IN THE [facility] SYNTHROID Yes [id number] TAKE 1 U nivers 150 mcg 1-02 TABLET BY ity of tablet 00:00: MOUTH [place] 00 EVERY DAY Medical IN THE [facility] SYNTHROID Yes [id number] TAKE 1 U nivers 150 mcg 1-02 TABLET BY ity of tablet 00:00: MOUTH [place] 00 EVERY DAY Medical IN THE [facility] SYNTHROID Yes [id number] TAKE 1 U nivers 150 mcg 1-02 TABLET BY ity of tablet 00:00: MOUTH [place] 00 EVERY DAY Medical IN THE [facility] SYNTHROID Yes [id number] TAKE 1 U nivers 150 mcg 1-02 TABLET BY ity of tablet 00:00: MOUTH [place] 00 EVERY DAY Medical IN THE [facility] SYNTHROID Yes [id number] TAKE 1 U nivers 150 mcg 1-02 TABLET BY ity of tablet 00:00: MOUTH [place] 00 EVERY DAY Medical IN THE [facility] SYNTHROID Yes [id number] TAKE 1 U nivers 150 mcg 1-02 TABLET BY ity of tablet 00:00: MOUTH [place] 00 EVERY DAY Medical IN THE [facility] SYNTHROID Yes [id number] TAKE 1 U nivers 150 mcg 1-02 TABLET BY ity of tablet 00:00: MOUTH [place] 00 EVERY DAY Medical IN THE [facility] SYNTHROID Yes [id number] TAKE 1 U nivers 150 mcg 1-02 TABLET BY ity of tablet 00:00: MOUTH [place] 00 EVERY DAY Medical IN THE [facility] SYNTHROID Yes [id number] TAKE 1 U nivers 150 mcg 1-02 TABLET BY ity of tablet 00:00: MOUTH [place] 00 EVERY DAY Medical IN THE [facility] SYNTHROID Yes [id number] TAKE 1 U nivers 150 mcg 1-02 TABLET BY ity of tablet 00:00: MOUTH [place] 00 EVERY DAY Medical IN THE [facility] SYNTHROID Yes [id number] TAKE 1 U nivers 150 mcg 1-02 TABLET BY ity of tablet 00:00: MOUTH [place] 00 EVERY DAY Medical IN THE [facility] SYNTHROID Yes [id number] TAKE 1 U nivers 150 mcg 1-02 TABLET BY ity of tablet 00:00: MOUTH [place] 00 EVERY DAY Medical IN THE [facility] SYNTHROID Yes [id number] TAKE 1 U nivers 150 mcg 1-02 TABLET BY ity of tablet 00:00: MOUTH [place] 00 EVERY DAY Medical IN THE [facility] SYNTHROID Yes [id number] TAKE 1 U nivers 150 mcg 1-02 TABLET BY ity of tablet 00:00: MOUTH [place] 00 EVERY DAY Medical IN THE [facility] SYNTHROID Yes [id number] TAKE 1 U nivers 150 mcg 1-02 TABLET BY ity of tablet 00:00: MOUTH [place] 00 EVERY DAY Medical IN THE [facility] SYNTHROID Yes [id number] TAKE 1 U nivers 150 mcg 1-02 TABLET BY ity of tablet 00:00: MOUTH [place] 00 EVERY DAY Medical IN THE [facility] SYNTHROID Yes [id number] TAKE 1 [facility] nivers 150 mcg 1-02 TABLET BY ity of tablet 00:00: MOUTH 00 EVERY DAY Medical IN THE Branch MORNING ZONISAMIDE 2021-03 Yes [id number] TAKE 1 [facility] 100 mg 2-27 CAPSULE BY ity of capsule 00:00: MOUTH [place] TWICE A Medical DAY Branch ZONISAMIDE 2021-03 Yes [id number] TAKE 1 [facility] 100 mg 2-27 CAPSULE BY ity of capsule 00:00: MOUTH [place] TWICE A Medical DAY Branch ZONISAMIDE 2021-03 Yes [id number] TAKE 1 [facility] 100 mg 2-27 CAPSULE BY ity of capsule 00:00: MOUTH TWICE A Medical DAY Branch ZONISAMIDE 2021-03 Yes [id number] TAKE 1 [facility] 100 mg 2-27 CAPSULE BY ity of capsule 00:00: MOUTH TWICE A Medical DAY Branch ZONISAMIDE 2021-03 Yes [id number] TAKE 1 [facility] 100 mg 2-27 CAPSULE BY ity of capsule 00:00: MOUTH TWICE A Medical DAY Branch ZONISAMIDE 2021-03 Yes [id number] TAKE 1 [facility] 100 mg 2-27 CAPSULE BY ity of capsule 00:00: MOUTH [place] 00 TWICE A Medical DAY Branch ZONISAMIDE 2021-03 Yes [id number] TAKE 1 [facility] 100 mg 2-27 CAPSULE BY ity of capsule 00:00: MOUTH TWICE A Medical DAY Branch ZONISAMIDE 2021-03 Yes [id number] TAKE 1 [facility] 100 mg 2-27 CAPSULE BY ity of capsule 00:00: MOUTH TWICE A Medical DAY Branch ZONISAMIDE 2021-03 Yes [id number] TAKE 1 [facility] 100 mg 2-27 CAPSULE BY ity of capsule 00:00: MOUTH 00 TWICE A Medical DAY Branch ZONISAMIDE 2021-03 Yes [id number] TAKE 1 [facility] 100 mg 2-27 CAPSULE BY ity of capsule 00:00: MOUTH [place] 00 TWICE A Medical DAY Branch ZONISAMIDE 2021-03 Yes [id number] TAKE 1 [facility] 100 mg 2-27 CAPSULE BY ity of capsule 00:00: MOUTH [place] 00 TWICE A Medical DAY Branch ZONISAMIDE 2021-03 Yes [id number] TAKE 1 [facility] 100 mg 2-27 CAPSULE BY ity of capsule 00:00: MOUTH [place] 00 TWICE A Medical DAY Branch ZONISAMIDE 2021-03 Yes [id number] TAKE 1 [facility] 100 mg 2-27 CAPSULE BY ity of capsule 00:00: MOUTH TWICE A Medical DAY Branch ZONISAMIDE 2021-03 Yes [id number] TAKE 1 [facility] 100 mg 2-27 CAPSULE BY ity of capsule 00:00: MOUTH TWICE A Medical DAY Branch ZONISAMIDE 2021-03 Yes [id number] TAKE 1 [facility] 100 mg 2-27 CAPSULE BY ity of capsule 00:00: MOUTH TWICE A Medical DAY Branch ZONISAMIDE 2021-03 Yes [id number] TAKE 1 [facility] 100 mg 2-27 CAPSULE BY [facility] capsule 00:00: MOUTH TWICE A Medical DAY Branch ZONISAMIDE 2021-03 Yes [id number] TAKE 1 [facility] 100 mg 2-27 CAPSULE BY [facility] capsule 00:00: MOUTH TWICE A Medical DAY Branch ZONISAMIDE 2021-03 Yes [id number] TAKE 1 [facility] 100 mg 2-27 CAPSULE BY [facility] capsule 00:00: MOUTH TWICE A Medical DAY Branch ZONISAMIDE 2021-03 Yes [id number] TAKE 1 [facility] 100 mg 2-27 CAPSULE BY [facility] capsule 00:00: MOUTH TWICE A Medical DAY Branch ZONISAMIDE 2021-03 Yes [id number] TAKE 1 [facility] 100 mg 2-27 CAPSULE BY [facility] capsule 00:00: MOUTH TWICE A Medical DAY Branch ZONISAMIDE 2021-03 Yes [id number] TAKE 1 [facility] 100 mg 2-27 CAPSULE BY [facility] capsule 00:00: MOUTH TWICE A Medical DAY Branch ZONISAMIDE 2021-03 Yes [id number] TAKE 1 [facility] 100 mg 2-27 CAPSULE BY [facility] capsule 00:00: MOUTH TWICE A Medical DAY Branch ZONISAMIDE 2021-03 Yes [id number] TAKE 1 [facility] 100 mg 2-27 CAPSULE BY [facility] capsule 00:00: MOUTH TWICE A Medical DAY Branch ZONISAMIDE 2021-03 Yes [id number] TAKE 1 [facility] 100 mg 2-27 CAPSULE BY [facility] capsule 00:00: MOUTH TWICE A Medical DAY Branch ZONISAMIDE 2021-03 Yes [id number] TAKE 1 [facility] 100 mg 2-27 CAPSULE BY [facility] capsule 00:00: MOUTH [place] 00 TWICE A Medical DAY Branch ZONISAMIDE 2021-03 Yes [id number] TAKE 1 [facility] 100 mg 2-27 CAPSULE BY [facility] capsule 00:00: MOUTH [place] 00 TWICE A Medical DAY Branch ZONISAMIDE 2021-03 Yes [id number] TAKE 1 [facility] 100 mg 2-27 CAPSULE BY [facility] capsule 00:00: MOUTH [place] 00 TWICE A Medical DAY Branch ZONISAMIDE 2021-03 Yes [id number] TAKE 1 [facility] 100 mg 2-27 CAPSULE BY [facility] capsule 00:00: MOUTH [place] 00 TWICE A Medical DAY Branch ZONISAMIDE 2021-03 Yes [id number] TAKE 1 [facility] 100 mg 2-27 CAPSULE BY [facility] of capsule 00:00: MOUTH [place] 00 TWICE A Medical DAY Branch ZONISAMIDE 2021-03 Yes [id number] TAKE 1 [facility] 100 mg 2-27 CAPSULE BY [facility] capsule 00:00: MOUTH [place] 00 TWICE A Medical DAY Branch ZONISAMIDE 2021-03 Yes [id number] TAKE 1 [facility] 100 mg 2-27 CAPSULE BY [facility] capsule 00:00: MOUTH [place] 00 TWICE A Medical DAY Branch ZONISAMIDE 2021-03 Yes [id number] TAKE 1 [facility] 100 mg 2-27 CAPSULE BY [facility] capsule 00:00: MOUTH [place] 00 TWICE A Medical DAY Branch ZONISAMIDE 2021-03 Yes [id number] TAKE 1 [facility] 100 mg 2-27 CAPSULE BY [facility] capsule 00:00: MOUTH [place] 00 TWICE A Medical DAY Branch ZONISAMIDE 2021-03 Yes [id number] TAKE 1 [facility] 100 mg 2-27 CAPSULE BY [facility] capsule 00:00: MOUTH [place] 00 TWICE A Medical DAY Branch ZONISAMIDE 2021-033- No [id number] TAKE 1 [facility] 100 mg 2-27 03-27 CAPSULE BY [facility] capsule 00:00: 00:00 MOUTH [place] 00 :00 TWICE A Medical DAY Branch dextroamphe 2021-03 Yes [id number] 15mg Take 1 [facility] tamine-amph 2-20 tablet by [facility] etamine 00:00: mouth in [place] (ADDERALL) 00 the Medical 15 mg morning Branch tablet and 1 tablet at noon and 1 tablet in the evening. dextroamphe 2021-03 Yes [id number] 20mg Take 1 [facility] tamine-amph 2-20 tablet by [facility] etamine 00:00: mouth in [place] (ADDERALL) 00 the Medical 20 mg morning Branch tablet and 1 tablet at noon and 1 tablet in the evening. dextroamphe 2021-03 Yes [id number] 20mg Take 1 [facility] tamine-amph 2-20 tablet by [facility] etamine 00:00: mouth in [place] (ADDERALL) 00 the Medical 20 mg morning Branch tablet and 1 tablet at noon and 1 tablet in the evening. dextroamphe 2021-03 Yes [id number] 15mg Take 1 [facility] tamine-amph 2-20 tablet by [facility] etamine 00:00: mouth in [place] (ADDERALL) 00 the Medical 15 mg morning Branch tablet and 1 tablet at noon and 1 tablet in the evening. dextroamphe 2021-03 Yes [id number] 20mg Take 1 [facility] tamine-amph 2-20 tablet by [facility] of etamine 00:00: mouth in [place] (ADDERALL) 00 the Medical 20 mg morning Branch tablet and 1 tablet at noon and 1 tablet in the evening. dextroamphe 2021-03 Yes [id number] 15mg Take 1 [facility] tamine-amph 2-20 tablet by [facility] etamine 00:00: mouth in [place] (ADDERALL) 00 the Medical 15 mg morning Branch tablet and 1 tablet at noon and 1 tablet in the evening. dextroamphe 2021-03 Yes [id number] 20mg Take 1 [facility] tamine-amph 2-20 tablet by [facility] of etamine 00:00: mouth in [place] (ADDERALL) 00 the Medical 20 mg morning Branch tablet and 1 tablet at noon and 1 tablet in the evening. dextroamphe 2021-03 Yes [id number] 15mg Take 1 [facility] tamine-amph 2-20 tablet by [facility] of etamine 00:00: mouth in [place] (ADDERALL) 00 the Medical 15 mg morning Branch tablet and 1 tablet at noon and 1 tablet in the evening. dextroamphe 2021-03 Yes [id number] 20mg Take 1 [facility] tamine-amph 2-20 tablet by [facility] of etamine 00:00: mouth in [place] (ADDERALL) 00 the Medical 20 mg morning Branch tablet and 1 tablet at noon and 1 tablet in the evening. dextroamphe 2021-03 Yes [id number] 15mg Take 1 [facility] tamine-amph 2-20 tablet by [facility] etamine 00:00: mouth in [place] (ADDERALL) 00 the Medical 15 mg morning Branch tablet and 1 tablet at noon and 1 tablet in the evening. dextroamphe 2021-03 Yes [id number] 20mg Take 1 [facility] tamine-amph 2-20 tablet by [facility] of etamine 00:00: mouth in [place] (ADDERALL) 00 the Medical 20 mg morning Branch tablet and 1 tablet at noon and 1 tablet in the evening. dextroamphe 2021-03 Yes [id number] 20mg Take 1 [facility] tamine-amph 2-20 tablet by [facility] of etamine 00:00: mouth in [place] (ADDERALL) 00 the Medical 20 mg morning Branch tablet and 1 tablet at noon and 1 tablet in the evening. dextroamphe 2021-03 Yes [id number] 20mg Take 1 [facility] tamine-amph 2-20 tablet by [facility] of etamine 00:00: mouth in [place] (ADDERALL) 00 the Medical 20 mg morning Branch tablet and 1 tablet at noon and 1 tablet in the evening. dextroamphe 2021-03- No [id number] 20mg Take 1 [facility] tamine-amph 2-20 01-10 tablet by it y of etamine 00:00: 00:00 mouth in [place] (ADDERALL) 00 :00 the Medical 20 mg morning Branch tablet and 1 tablet at noon and 1 tablet in the evening. dextroamphe 2021-03- No [id number] 15mg Take 1 [facility] tamine-amph 2-20 -09 tablet by it y of etamine 00:00: 00:00 mouth in [place] (ADDERALL) 00 :00 the Medical 15 mg [...] No 1{tbl} 1 tablet, [facility] -acetaminop 2-14 12-14 Oral, [facility] hen (NORCO 01:15: 01:14 ONCE, 1 [place] as 5) 5-325 mg 00 :00 dose, On Medi gustavo tablet 1 Tue Branch tablet 03/10/22 at 1915, [facility] SERTRALINE 2021-03 Yes [id number] TAKE 1 [facility] 100 mg 2-13 TABLET BY [facility] of tablet 00:00: MOUTH [place] 00 EVERY DAY Medical Branch SERTRALINE 2021-03 Yes [id number] TAKE 1 [facility] 100 mg 2-13 TABLET BY [facility] tablet 00:00: MOUTH [place] EVERY DAY Medical Branch SERTRALINE 2021-03 Yes [id number] TAKE 1 [facility] 100 mg 2-13 TABLET BY [facility] tablet 00:00: MOUTH [place] EVERY DAY Medical Branch SERTRALINE 2021-03 Yes [id number] TAKE 1 [facility] 100 mg 2-13 TABLET BY [facility] of tablet 00:00: MOUTH [place] EVERY DAY Medical Branch SERTRALINE 2021-03 Yes [id number] TAKE 1 [facility] 100 mg 2-13 TABLET BY [facility] of tablet 00:00: MOUTH [place] DAY Medical Branch SERTRALINE 2021-03 Yes [id number] TAKE 1 [facility] 100 mg 2-13 TABLET BY [facility] of tablet 00:00: MOUTH [place] 00 EVERY DAY Medical Branch SERTRALINE 2021-03 Yes [id number] TAKE 1 [facility] 100 mg 2-13 TABLET BY [facility] of tablet 00:00: MOUTH [place] 00 EVERY DAY Medical Branch SERTRALINE 2021-03 Yes [id number] TAKE 1 [facility] 100 mg 2-13 TABLET BY [facility] of tablet 00:00: MOUTH [place] EVERY DAY Medical Branch SERTRALINE 2021-03 Yes [id number] TAKE 1 [facility] 100 mg 2-13 TABLET BY [facility] of tablet 00:00: MOUTH [place] 00 EVERY DAY Medical Branch SERTRALINE 2021-03 Yes [id number] TAKE 1 [facility] 100 mg 2-13 TABLET BY [facility] of tablet 00:00: MOUTH [place] EVERY DAY Medical Branch SERTRALINE 2021-03 Yes [id number] TAKE 1 [facility] 100 mg 2-13 TABLET BY [facility] of tablet 00:00: MOUTH [place] 00 EVERY DAY Medical Branch SERTRALINE 2021-03 Yes [id number] TAKE 1 [facility] 100 mg 2-13 TABLET BY [facility] of tablet 00:00: MOUTH [place] 00 EVERY DAY Medical Branch SERTRALINE 2021-03 Yes [id number] TAKE 1 [facility] 100 mg 2-13 TABLET BY [facility] of tablet 00:00: MOUTH [place] 00 EVERY DAY Medical Branch SERTRALINE 2021-03 Yes [id number] TAKE 1 [facility] 100 mg 2-13 TABLET BY [facility] of tablet 00:00: MOUTH [place] 00 EVERY DAY Medical Branch SERTRALINE 2021-03 Yes [id number] TAKE 1 [facility] 100 mg 2-13 TABLET BY [facility] of tablet 00:00: MOUTH 00 EVERY DAY Medical Branch SERTRALINE 2021-03 Yes [id number] TAKE 1 [facility] 100 mg 2-13 TABLET BY [facility] of tablet 00:00: MOUTH [place] 00 EVERY DAY Medical Branch SERTRALINE 2021-03 Yes [id number] TAKE 1 [facility] 100 mg 2-13 TABLET BY [facility] of tablet 00:00: MOUTH [place] 00 EVERY DAY Medical Branch SERTRALINE 2021-03 Yes [id number] TAKE 1 [facility] 100 mg 2-13 TABLET BY [facility] of tablet 00:00: MOUTH EVERY DAY Medical Branch SERTRALINE 2021-03 Yes [id number] TAKE 1 [facility] 100 mg 2-13 TABLET BY [facility] of tablet 00:00: MOUTH 00 EVERY DAY Medical Branch SERTRALINE 2021-03 Yes [id number] TAKE 1 [facility] 100 mg 2-13 TABLET BY [facility] of tablet 00:00: MOUTH [place] 00 EVERY DAY Medical Branch SERTRALINE 2021-03 Yes [id number] TAKE 1 [facility] 100 mg 2-13 TABLET BY [facility] of tablet 00:00: MOUTH 00 EVERY DAY Medical Branch SERTRALINE 2021-03 Yes [id number] TAKE 1 [facility] 100 mg 2-13 TABLET BY [facility] of tablet 00:00: MOUTH 00 EVERY DAY Medical Branch SERTRALINE 2021-03 Yes [id number] TAKE 1 [facility] 100 mg 2-13 TABLET BY [facility] of tablet 00:00: MOUTH [place] 00 EVERY DAY Medical Branch SERTRALINE 2021-03 Yes [id number] TAKE 1 [facility] 100 mg 2-13 TABLET BY [facility] of tablet 00:00: MOUTH [place] 00 EVERY DAY Medical Branch SERTRALINE 2021-03 Yes [id number] TAKE 1 [facility] 100 mg 2-13 TABLET BY [facility] of tablet 00:00: MOUTH [place] 00 EVERY DAY Medical Branch SERTRALINE 2021-03 Yes [id number] TAKE 1 [facility] 100 mg 2-13 TABLET BY [facility] of tablet 00:00: MOUTH [place] 00 EVERY DAY Medical Branch SERTRALINE 2021-03 Yes [id number] TAKE 1 [facility] 100 mg 2-13 TABLET BY [facility] of tablet 00:00: MOUTH EVERY DAY Medical Branch SERTRALINE 2021-03 Yes [id number] TAKE 1 [facility] 100 mg 2-13 TABLET BY [facility] of tablet 00:00: MOUTH EVERY DAY Medical Branch SERTRALINE 2021-03 Yes [id number] TAKE 1 [facility] 100 mg 2-13 TABLET BY [facility] of tablet 00:00: MOUTH EVERY DAY Medical Branch SERTRALINE 2021-03 Yes [id number] TAKE 1 [facility] 100 mg 2-13 TABLET BY [facility] of tablet 00:00: MOUTH EVERY DAY Medical Branch SERTRALINE 2021-03 Yes [id number] TAKE 1 [facility] 100 mg 2-13 TABLET BY [facility] of tablet 00:00: MOUTH EVERY DAY Medical Branch SERTRALINE 2021-03 Yes [id number] TAKE 1 [facility] 100 mg 2-13 TABLET BY [facility] of tablet 00:00: MOUTH [place] EVERY DAY Medical Branch SERTRALINE 2021-03 Yes [id number] TAKE 1 [facility] 100 mg 2-13 TABLET BY [facility] of tablet 00:00: MOUTH EVERY DAY Medical Branch SERTRALINE 2021-03 Yes [id number] TAKE 1 [facility] 100 mg 2-13 TABLET BY [facility] of tablet 00:00: MOUTH [place] EVERY DAY Medical Branch SERTRALINE 2021-03 Yes [id number] TAKE 1 [facility] 100 mg 2-13 TABLET BY [facility] of tablet 00:00: MOUTH EVERY DAY Medical Branch SERTRALINE 2021-03 Yes [id number] TAKE 1 [facility] 100 mg 2-13 TABLET BY [facility] of tablet 00:00: MOUTH EVERY DAY Medical Branch SERTRALINE 2021-03 Yes [id number] TAKE 1 [facility] 100 mg 2-13 TABLET BY [facility] of tablet 00:00: MOUTH [place] EVERY DAY Medical Branch SERTRALINE 2021-03 Yes [id number] TAKE 1 [facility] 100 mg 2-13 TABLET BY [facility] of tablet 00:00: MOUTH [place] EVERY DAY Medical Branch SERTRALINE 2021-03 Yes [id number] TAKE 1 [facility] 100 mg 2-13 TABLET BY [facility] of tablet 00:00: MOUTH [place] EVERY DAY Medical Branch SERTRALINE 2021-03 Yes [id number] TAKE 1 [facility] 100 mg 2-13 TABLET BY [facility] of tablet 00:00: MOUTH [place] 00 EVERY DAY Medical Branch SERTRALINE 2021-03 Yes [id number] TAKE 1 [facility] 100 mg 2-13 TABLET BY [facility] of tablet 00:00: MOUTH [place] 00 EVERY DAY Medical Branch SERTRALINE 2021-03 Yes [id number] TAKE 1 [facility] 100 mg 2-13 TABLET BY [facility] of tablet 00:00: MOUTH 00 EVERY DAY Medical Branch SERTRALINE 2021-03 Yes [id number] TAKE 1 [facility] 100 mg 2-13 TABLET BY [facility] of tablet 00:00: MOUTH [place] 00 EVERY DAY Medical Branch SERTRALINE 2021-03 Yes [id number] TAKE 1 [facility] 100 mg 2-13 TABLET BY [facility] of tablet 00:00: MOUTH 00 EVERY DAY Medical Branch SERTRALINE 2021-03 Yes [id number] TAKE 1 [facility] 100 mg 2-13 TABLET BY [facility] of tablet 00:00: MOUTH 00 EVERY DAY Medical Branch SERTRALINE 2021-03 Yes [id number] TAKE 1 [facility] 100 mg 2-13 TABLET BY [facility] of tablet 00:00: MOUTH 00 EVERY DAY Medical Branch SERTRALINE 2021-03 Yes [id number] TAKE 1 [facility] 100 mg 2-13 TABLET BY [facility] of tablet 00:00: MOUTH 00 EVERY DAY Medical Branch SERTRALINE 2021-03 Yes [id number] TAKE 1 [facility] 100 mg 2-13 TABLET BY [facility] of tablet 00:00: MOUTH 00 EVERY DAY Medical Branch SERTRALINE 2021-03 Yes [id number] TAKE 1 [facility] 100 mg 2-13 TABLET BY [facility] of tablet 00:00: MOUTH 00 EVERY DAY Medical Branch SERTRALINE 2021-03 Yes [id number] TAKE 1 [facility] 100 mg 2-13 TABLET BY [facility] of tablet 00:00: MOUTH 00 EVERY DAY Medical Branch SERTRALINE 2021-03 Yes [id number] TAKE 1 [facility] 100 mg 2-13 TABLET BY [facility] of tablet 00:00: MOUTH 00 EVERY DAY Medical Branch SERTRALINE 2021-03 Yes [id number] TAKE 1 [facility] 100 mg 2-13 TABLET BY [facility] of tablet 00:00: MOUTH 00 EVERY DAY Medical Branch SERTRALINE 2021-03 Yes [id number] TAKE 1 [facility] 100 mg 2-13 TABLET BY [facility] of tablet 00:00: MOUTH [place] 00 EVERY DAY Medical Branch SERTRALINE 2021- Yes [id number] TAKE 1 [facility] 100 mg 2-13 TABLET BY [facility] of tablet 00:00: MOUTH [place] EVERY DAY Medical Branch SERTRALINE 2021-1 Yes [id number] TAKE 1 [facility] 100 mg 2-13 TABLET BY [facility] of tablet 00:00: MOUTH [place] EVERY DAY Medical Branch SERTRALINE 2021-1 Yes [id number] TAKE 1 [facility] 100 mg 2-13 TABLET BY [facility] of tablet 00:00: MOUTH [place] EVERY DAY Medical Branch SERTRALINE 2021- Yes [id number] TAKE 1 [facility] 100 mg 2-13 TABLET BY [facility] of tablet 00:00: MOUTH [place] EVERY DAY Medical Branch SERTRALINE 2021-033- No [id number] TAKE 1 [facility] 100 mg 2-13 05-01 TABLET BY [facility] of tablet 00:00: 00:00 MOUTH [place] 00 :00 EVERY DAY Medical Branch cephALEXin 2021- Yes [id number] 500mg Take 1 [facility] 500 mg 1-28 capsule by [facility] of capsule 00:00: mouth in [place] the Medical morning Branch and 1 capsule in the evening. cephALEXin 2021-03 Yes [id number] 500mg Take 1 [facility] 500 mg 1-28 capsule by [facility] of capsule 00:00: mouth in [place] the Medical morning Branch and 1 capsule in the evening. cephALEXin 2021-03 Yes [id number] 500mg Take 1 [facility] 500 mg 1-28 capsule by [facility] of capsule 00:00: mouth in [place] the Medical morning Branch and 1 capsule in the evening. cephALEXin 2021- Yes [id number] 500mg Take 1 [facility] 500 mg 1-28 capsule by [facility] of capsule 00:00: mouth in [place] 00 the Medical morning Branch and 1 capsule in the evening. cephALEXin 2021-03 Yes [id number] 500mg Take 1 [facility] 500 mg 1-28 capsule by [facility] of capsule 00:00: mouth in [place] 00 the Medical morning Branch and 1 capsule in the evening. cephALEXin 2021- Yes [id number] 500mg Take 1 [facility] 500 mg 1-28 capsule by [facility] of capsule 00:00: mouth in [place] [address] the Medical morning Branch and 1 capsule in the evening. cephALEXin 2021- Yes [id number] 500mg Take 1 [facility] 500 mg 1-28 capsule by [facility] of capsule 00:00: mouth in [place] 00 the Medical morning Branch and 1 capsule in the evening. cephALEXin 2022-1 Yes [id number] 500mg Take 1 [facility] 500 mg 1-28 capsule by [facility] of capsule 00:00: mouth in [place] [address] the Medical morning Branch and 1 capsule in the evening. cephALEXin 2022-1 Yes [id number] 500mg Take 1 [facility] 500 mg 1-28 capsule by [facility] of capsule 00:00: mouth in [place] [address] the Medical morning Branch and 1 capsule in the evening. cephALEXin 2022-1 Yes [id number] 500mg Take 1 [facility] 500 mg 1-28 capsule by [facility] of capsule 00:00: mouth in [place] [address] the Medical morning Branch and 1 capsule in the evening. cephALEXin 2022-1 Yes [id number] 500mg Take 1 [facility] 500 mg 1-28 capsule by [facility] of capsule 00:00: mouth in [place] [address] the Medical morning Branch and 1 capsule in the evening. cephALEXin 2022-1 Yes [id number] 500mg Take 1 [facility] 500 mg 1-28 capsule by [facility] of capsule 00:00: mouth in [place] [address] the Medical morning Branch and 1 capsule in the evening. cephALEXin 2022-1 Yes [id number] 500mg Take 1 [facility] 500 mg 1-28 capsule by [facility] of capsule 00:00: mouth in [place] [address] the Medical morning Branch and 1 capsule in the evening. cephALEXin 2022-1 Yes [id number] 500mg Take 1 [facility] 500 mg 1-28 capsule by [facility] of capsule 00:00: mouth in [place] [address] the Medical morning Branch and 1 capsule in the evening. cephALEXin 2022-1 Yes [id number] 500mg Take 1 [facility] 500 mg 1-28 capsule by [facility] of capsule 00:00: mouth in [place] [address] the Medical morning Branch and 1 capsule in the evening. cephALEXin 2022-1 Yes [id number] 500mg Take 1 [facility] 500 mg 1-28 capsule by [facility] of capsule 00:00: mouth in [place] [address] the Medical morning Branch and 1 capsule in the evening. cephALEXin 2022-1 Yes [id number] 500mg Take 1 [facility] 500 mg 1-28 capsule by [facility] of capsule 00:00: mouth in [place] [address] the Medical morning Branch and 1 capsule in the evening. cephALEXin 2022-1 Yes [id number] 500mg Take 1 [facility] 500 mg 1-28 capsule by [facility] of capsule 00:00: mouth in [place] 00 the Medical morning Branch and 1 capsule in the evening. cephALEXin 2021-03 Yes [id number] 500mg Take 1 [facility] 500 mg 1-28 capsule by [facility] of capsule 00:00: mouth in [place] 00 the Medical morning Branch and 1 capsule in the evening. cephALEXin 1 Yes [id number] 500mg Take 1 [facility] 500 mg 1-28 capsule by [facility] of capsule 00:00: mouth in [place] 00 the Medical morning Branch and 1 capsule in the evening. cephALEXin 2021-03 Yes [id number] 500mg Take 1 [facility] 500 mg 1-28 capsule by [facility] of capsule 00:00: mouth in [place] [address] the Medical morning Branch and 1 capsule in the evening. cephALEXin 2021-03 Yes [id number] 500mg Take 1 [facility] 500 mg 1-28 capsule by [facility] of capsule 00:00: mouth in [place] [address] the Medical morning Branch and 1 capsule in the evening. cephALEXin 2021-03 Yes [id number] 500mg Take 1 [facility] 500 mg 1-28 capsule by [facility] of capsule 00:00: mouth in [place] [address] the Medical morning Branch and 1 capsule in the evening. cephALEXin 2021-03 Yes [id number] 500mg Take 1 [facility] 500 mg 1-28 capsule by [facility] of capsule 00:00: mouth in [place] [address] the Medical morning [place] and 1 capsule in the evening. dextroamphe 2021-03 Yes [id number] 20mg Take 1 [facility] tamine-amph 1-28 tablet by [facility]y of etamine 00:00: mouth in [place] (ADDERALL) 00 the Medical 20 mg morning Branch tablet and 1 tablet at noon and 1 tablet in the evening. clonazePAM 2021-03 Yes [id number] 1mg Take 1 [facility] 1 mg tablet 1-28 tablet by ity of 00:00: mouth in [place] [address] the Medical morning Branch and 1 tablet at noon and 1 tablet in the evening. cephALEXin 2021-03 Yes [id number] 500mg Take 1 [facility] 500 mg 1-28 capsule by [facility] of capsule 00:00: mouth in [place] [address] the Medical morning Branch and 1 capsule in the evening. dextroamphe 2021-03 Yes [id number] 20mg Take 1 [facility] tamine-amph 1-28 tablet by ity of etamine 00:00: mouth in [place] (ADDERALL) 00 the Medical 20 mg morning Branch tablet and 1 tablet at noon and 1 tablet in the evening. clonazePAM 2021-03 Yes [id number] 1mg Take 1 [facility] 1 mg tablet 1-28 tablet by ity of 00:00: mouth in [place] 00 the Medical morning Branch and 1 tablet at noon and 1 tablet in the evening. cephALEXin 2021-03 Yes [id number] 500mg Take 1 [facility] 500 mg 1-28 capsule by [facility] of capsule 00:00: mouth in [place] 00 the Medical morning Branch and 1 capsule in the evening. dextroamphe 2021-03 Yes [id number] 20mg Take 1 [facility] tamine-amph 1-28 tablet by ity of etamine 00:00: mouth in [place] (ADDERALL) 00 the Medical 20 mg morning Branch tablet and 1 tablet at noon and 1 tablet in the evening. clonazePAM 2021-03 Yes [id number] 1mg Take 1 [facility] 1 mg tablet 1-28 tablet by [facility]y of 00:00: mouth in [place] 00 the Medical morning Branch and 1 tablet at noon and 1 tablet in the evening. cephALEXin 2021-03 Yes [id number] 500mg Take 1 [facility] 500 mg 1-28 capsule by [facility] of capsule 00:00: mouth in [place] 00 the Medical morning Branch and 1 capsule in the evening. dextroamphe 2021-03 Yes [id number] 20mg Take 1 [facility] tamine-amph 1-28 tablet by ity of etamine 00:00: mouth in [place] (ADDERALL) 00 the Medical 20 mg morning Branch tablet and 1 tablet at noon and 1 tablet in the evening. clonazePAM 2021-03 Yes [id number] 1mg Take 1 [facility] 1 mg tablet 1-28 tablet by ity of 00:00: mouth in [place] 00 the Medical morning Branch and 1 tablet at noon and 1 tablet in the evening. cephALEXin 2021-03 Yes [id number] 500mg Take 1 [facility] 500 mg 1-28 capsule by [facility] of capsule 00:00: mouth in [place] 00 the Medical morning Branch and 1 capsule in the evening. dextroamphe 2021- Yes [id number] 20mg Take 1 [facility] tamine-amph 1-28 tablet by ity of etamine 00:00: mouth in [place] (ADDERALL) 00 the Medical 20 mg morning Branch tablet and 1 tablet at noon and 1 tablet in the evening. clonazePAM 2021- Yes [id number] 1mg Take 1 [facility] 1 mg tablet 1-28 tablet by ity of 00:00: mouth in [place] 00 the Medical morning Branch and 1 tablet at noon and 1 tablet in the evening. cephALEXin 2021-03 Yes [id number] 500mg Take 1 [facility] 500 mg 1-28 capsule by [facility] of capsule 00:00: mouth in [place] 00 the Medical morning Branch and 1 capsule in the evening. dextroamphe 2021-03 Yes [id number] 20mg Take 1 [facility] tamine-amph 1-28 tablet by ity of etamine 00:00: mouth in [place] (ADDERALL) 00 the Medical 20 mg morning Branch tablet and 1 tablet at noon and 1 tablet in the evening. clonazePAM 2021-03 Yes [id number] 1mg Take 1 [facility] 1 mg tablet 1-28 tablet by ity of 00:00: mouth in [place] 00 the Medical morning Branch and 1 tablet at noon and 1 tablet in the evening. cephALEXin 2021-03 Yes [id number] 500mg Take 1 [facility] 500 mg 1-28 capsule by [facility] of capsule 00:00: mouth in [place] [address] the Medical morning Branch and 1 capsule in the evening. clonazePAM 2021-03 Yes [id number] 1mg Take 1 [facility] 1 mg tablet 1-28 tablet by ity of 00:00: mouth in [place] 00 the Medical morning Branch and 1 tablet at noon and 1 tablet in the evening. cephALEXin 2021-03 Yes [id number] 500mg Take 1 [facility] 500 mg 1-28 capsule by [facility] of capsule 00:00: mouth in [place] 00 the Medical morning Branch and 1 capsule in the evening. clonazePAM 2021- Yes [id number] 1mg Take 1 [facility] 1 mg tablet 1-28 tablet by ity of 00:00: mouth in [place] [address] the Medical morning Branch and 1 tablet at noon and 1 tablet in the evening. cephALEXin 2021-03 Yes [id number] 500mg Take 1 [facility] 500 mg 1-28 capsule by [facility] of capsule 00:00: mouth in [place] [address] the Medical morning [place] and 1 capsule in the evening. clonazePAM 2021- Yes [id number] 1mg Take 1 [facility] 1 mg tablet 1-28 tablet by ity of 00:00: mouth in [place] [address] the Medical morning Branch and 1 tablet at noon and 1 tablet in the evening. cephALEXin 2021-1 Yes [id number] 500mg Take 1 [facility] 500 mg 1-28 capsule by [facility] of capsule 00:00: mouth in [place] [address] the Medical morning Branch and 1 capsule in the evening. clonazePAM 2-1 Yes [id number] 1mg Take 1 [facility] 1 mg tablet 1-28 tablet by ity of 00:00: mouth in [place] [address] the Medical morning [place] and 1 tablet at noon and 1 tablet in the evening. cephALEXin 2021-1 Yes [id number] 500mg Take 1 [facility] 500 mg 1-28 capsule by [facility] of capsule 00:00: mouth in [address] Medical morning [place] and 1 capsule in the evening. clonazePAM 2021-1 Yes [id number] 1mg Take 1 [facility] 1 mg tablet 1-28 tablet by ity of 00:00: mouth in [address] Medical morning [place] and 1 tablet at noon and 1 tablet in the evening. cephALEXin 2021-1 Yes [id number] 500mg Take 1 [facility] 500 mg 1-28 capsule by [facility] of capsule 00:00: mouth in [address] morning [place] and 1 capsule in the evening. clonazePAM 2021-1 Yes [id number] 1mg Take 1 [facility] 1 mg tablet 1-28 tablet by ity of 00:00: mouth in [address] morning [place] and 1 tablet at noon and 1 tablet in the evening. cephALEXin 2021-1 Yes [id number] 500mg Take 1 [facility] 500 mg 1-28 capsule by [facility] of capsule 00:00: mouth in [address] morning [place] and 1 capsule in the evening. clonazePAM 2-1 Yes [id number] 1mg Take 1 [facility] 1 mg tablet 1-28 tablet by ity of 00:00: mouth in [address] morning [place] and 1 tablet at noon and 1 tablet in the evening. cephALEXin 2-1 Yes [id number] 500mg Take 1 [facility] 500 mg 1-28 capsule by it[facility] of capsule 00:00: mouth in [address] morning [place] and 1 capsule in the evening. clonazePAM 2022-1 Yes [id number] 1mg Take 1 [facility] 1 mg tablet 1-28 tablet by ity of 00:00: mouth in [address] Medical morning [place] and 1 tablet at noon and 1 tablet in the evening. cephALEXin 2022-1 Yes [id number] 500mg Take 1 [facility] 500 mg 1-28 capsule by ity of capsule 00:00: mouth in [address] morning [place] and 1 capsule in the evening. clonazePAM 2022-1 Yes [id number] 1mg Take 1 [facility] 1 mg tablet 1-28 tablet by ity of 00:00: mouth in [address] morning [place] and 1 tablet at noon and 1 tablet in the evening. cephALEXin 2022-1 Yes [id number] 500mg Take 1 [facility] 500 mg 1-28 capsule by ity of capsule 00:00: mouth in [address] morning [place] and 1 capsule in the evening. clonazePAM 2022-1 Yes [id number] 1mg Take 1 [facility] 1 mg tablet 1-28 tablet by ity of 00:00: mouth in [address] morning [place] and 1 tablet at noon and 1 tablet in the evening. cephALEXin 2021-1 Yes [id number] 500mg Take 1 [facility] 500 mg 1-28 capsule by ity of capsule 00:00: mouth in [address] and 1 capsule in the evening. clonazePAM 2021-1 Yes [id number] 1mg Take 1 [facility] 1 mg tablet 1-28 tablet by ity of 00:00: mouth in [address] and 1 tablet at noon and 1 tablet in the evening. cephALEXin 2021-1 Yes [id number] 500mg Take 1 [facility] 500 mg 1-28 capsule by ity of capsule 00:00: mouth in [address] and 1 capsule in the evening. clonazePAM 2-1 Yes [id number] 1mg Take 1 [facility] 1 mg tablet 1-28 tablet by ity of 00:00: mouth in [address] morning [place] and 1 tablet at noon and 1 tablet in the evening. cephALEXin 2022-1 Yes [id number] 500mg Take 1 [facility] 500 mg 1-28 capsule by ity of capsule 00:00: mouth in [address] and 1 capsule in the evening. clonazePAM 2022-1 Yes [id number] 1mg Take 1 [facility] 1 mg tablet 1-28 tablet by ity of 00:00: mouth in [address] and 1 tablet at noon and 1 tablet in the evening. cephALEXin 2022-1 Yes [id number] 500mg Take 1 [facility] 500 mg 1-28 capsule by ity of capsule 00:00: mouth in [place] 00 the Medical morning Branch and 1 capsule in the evening. clonazePAM 2022-1 Yes [id number] 1mg Take 1 [facility] 1 mg tablet 1-28 tablet by ity of 00:00: mouth in [place] [address] the Medical morning Branch and 1 tablet at noon and 1 tablet in the evening. cephALEXin 2-1 Yes [id number] 500mg Take 1 [facility] 500 mg 1-28 capsule by ity of capsule 00:00: mouth in [address] morning [place] and 1 capsule in the evening. clonazePAM 2-1 Yes [id number] 1mg Take 1 [facility] 1 mg tablet 1-28 tablet by ity of 00:00: mouth in [place] [address] the Medical morning Branch and 1 tablet at noon and 1 tablet in the evening. cephALEXin 2021-1 Yes [id number] 500mg Take 1 [facility] 500 mg 1-28 capsule by ity of capsule 00:00: mouth in [address] morning [place] and 1 capsule in the evening. clonazePAM 2021-1 Yes [id number] 1mg Take 1 [facility] 1 mg tablet 1-28 tablet by ity of 00:00: mouth in [address] morning [place] and 1 tablet at noon and 1 tablet in the evening. cephALEXin 2021-1 Yes [id number] 500mg Take 1 [facility] 500 mg 1-28 capsule by ity of capsule 00:00: mouth in [address] morning [place] and 1 capsule in the evening. clonazePAM 2-1 Yes [id number] 1mg Take 1 [facility] 1 mg tablet 1-28 tablet by ity of 00:00: mouth in [address] morning [place] and 1 tablet at noon and 1 tablet in the evening. cephALEXin 2022-1 Yes [id number] 500mg Take 1 [facility] 500 mg 1-28 capsule by ity of capsule 00:00: mouth in [address] morning [place] and 1 capsule in the evening. clonazePAM 2022-1 Yes [id number] 1mg Take 1 [facility] 1 mg tablet 1-28 tablet by ity of 00:00: mouth in [address] morning [place] and 1 tablet at noon and 1 tablet in the evening. cephALEXin 2022-1 Yes [id number] 500mg Take 1 [facility] 500 mg 1-28 capsule by ity of capsule 00:00: mouth in [address] morning [place] and 1 capsule in the evening. clonazePAM 2022-1 Yes [id number] 1mg Take 1 [facility] 1 mg tablet 1-28 tablet by ity of 00:00: mouth in [place] [address] the Medical morning Branch and 1 tablet at noon and 1 tablet in the evening. cephALEXin 2021-1 Yes [id number] 500mg Take 1 [facility] 500 mg 1-28 capsule by ity of capsule 00:00: mouth in [place] [address] the Medical morning Branch and 1 capsule in the evening. clonazePAM 2021-1 Yes [id number] 1mg Take 1 [facility] 1 mg tablet 1-28 tablet by ity of 00:00: mouth in [place] [address] the Medical morning Branch and 1 tablet at noon and 1 tablet in the evening. cephALEXin 2021-1 Yes [id number] 500mg Take 1 [facility] 500 mg 1-28 capsule by ity of capsule 00:00: mouth in [address] morning [place] and 1 capsule in the evening. clonazePAM 2021-1 Yes [id number] 1mg Take 1 [facility] 1 mg tablet 1-28 tablet by ity of 00:00: mouth in [address] Medical morning [place] and 1 tablet at noon and 1 tablet in the evening. cephALEXin 2021-1 Yes [id number] 500mg Take 1 [facility] 500 mg 1-28 capsule by ity of capsule 00:00: mouth in [address] morning [place] and 1 capsule in the evening. clonazePAM 2021-1 Yes [id number] 1mg Take 1 [facility] 1 mg tablet 1-28 tablet by ity of 00:00: mouth in [address] morning [place] and 1 tablet at noon and 1 tablet in the evening. cephALEXin 2021-1 Yes [id number] 500mg Take 1 [facility] 500 mg 1-28 capsule by ity of capsule 00:00: mouth in [address] morning [place] and 1 capsule in the evening. clonazePAM 2-1 Yes [id number] 1mg Take 1 [facility] 1 mg tablet 1-28 tablet by ity of 00:00: mouth in [address] morning [place] and 1 tablet at noon and 1 tablet in the evening. cephALEXin 2022-1 Yes [id number] 500mg Take 1 [facility] 500 mg 1-28 capsule by ity of capsule 00:00: mouth in [address] morning [place] and 1 capsule in the evening. clonazePAM 2022-1 Yes [id number] 1mg Take 1 [facility] 1 mg tablet 1-28 tablet by ity of 00:00: mouth in [place] 00 the Medical morning Branch and 1 tablet at noon and 1 tablet in the evening. cephALEXin 2021-03 Yes [id number] 500mg Take 1 [facility] 500 mg 1-28 capsule by ity of capsule 00:00: mouth in [place] [address] the Medical morning Branch and 1 capsule in the evening. cephALEXin 2021- Yes [id number] 500mg Take 1 [facility] 500 mg 1-28 capsule by ity of capsule 00:00: mouth in [place] [address] the Medical morning Branch and 1 capsule in the evening. cephALEXin 2021-03 Yes [id number] 500mg Take 1 [facility] 500 mg 1-28 capsule by ity of capsule 00:00: mouth in [place] [address] the Medical morning Branch and 1 capsule in the evening. cephALEXin 2021-03 Yes [id number] 500mg Take 1 [facility] 500 mg 1-28 capsule by ity of capsule 00:00: mouth in [place] [address] the Medical morning [place] and 1 capsule in the evening. cephALEXin 2021-03 Yes [id number] 500mg Take 1 [facility] 500 mg 1-28 capsule by ity of capsule 00:00: mouth in [place] [address] the Medical morning [place] and 1 capsule in the evening. cephALEXin 2021-03 Yes [id number] 500mg Take 1 [facility] 500 mg 1-28 capsule by ity of capsule 00:00: mouth in [place] [address] the Medical morning Branch and 1 capsule in the evening. cephALEXin 2021- Yes [id number] 500mg Take 1 [facility] 500 mg 1-28 capsule by ity of capsule 00:00: mouth in [place] [address] the [facility] morning [place] and 1 capsule in the evening. cephALEXin 2021-03- No [id number] 500mg Take 1 [facility] 500 mg 1-28 05-09 capsule by ity of capsule 00:00: 00:00 mouth in [place] 00 :00 the Medical morning Branch and 1 capsule in the evening. cephALEXin 2021-03- No [id number] 500mg Take 1 [facility] 500 mg 1-28 05-09 capsule by ity of capsule 00:00: 00:00 mouth in [place] 00 :00 the Medical morning [place] and 1 capsule in the evening. clonazePAM 2021-03- No [id number] 1mg Take 1 [facility] 1 mg tablet -05-25 tablet by it y of 00:00: 00:00 mouth in [place] 00 :00 the Medical morning Branch and 1 tablet at noon and 1 tablet in the evening. clonazePAM 2021-03- No [id number] 1mg Take 1 [facility] 1 mg tablet 04-25 tablet by it y of 00:00: 00:00 mouth in [place] 00 :00 the Medical morning Branch and 1 tablet at noon and 1 tablet in the evening. clonazePAM 2021-03- No [id number] 1mg Take 1 [facility] 1 mg tablet 04-25 tablet by it y of 00:00: 00:00 mouth in [place] 00 :00 the Medical morning Branch and 1 tablet at noon and 1 tablet in the evening. dextroamphe 2021-03- No [id number] 20mg Take 1 [facility] tamine-amph 04-2520 tablet by it y of etamine 00:00: 00:00 mouth in [place] ([facility]) 00 :00 the Medical 20 mg morning Branch tablet and 1 tablet at noon and 1 tablet in the evening. clonazePAM 2021-03 Yes [id number] 1mg Take 1 [facility] 1 mg tablet 03-29 tablet by ity of 00:00: mouth in [place] 00 the Medical morning Branch and 1 tablet at noon and 1 tablet in the evening. cephALEXin 2021-03 Yes [id number] 500mg Take 1 [facility] 500 mg - capsule by ity of capsule 00:00: mouth in [place] 00 the Medical morning Branch and 1 capsule in the evening. clonazePAM 2021-03 Yes [id number] 1mg Take 1 [facility] 1 mg tablet 03-29 tablet by ity of 00:00: mouth in [place] 00 the Medical morning Branch and 1 tablet at noon and 1 tablet in the evening. cephALEXin 2021-03 Yes [id number] 500mg Take 1 [facility] 500 mg -01 capsule by ity of capsule 00:00: mouth in [place] 00 the Medical morning Branch and 1 capsule in the evening. clonazePAM 2021-03- No [id number] 1mg Take 1 [facility] 1 mg tablet 03-29 tablet by it y of 00:00: 00:00 mouth in [place] 00 :00 the Medical morning Branch and 1 tablet at noon and 1 tablet in the evening. cephALEXin 2021-03- No [id number] 500mg Take 1 [facility] 500 mg 03-29 capsule by ity of capsule 00:00: 00:00 mouth in [place] 00 :00 the Medical morning Branch and 1 capsule in the evening. busPIRone 2021-03 Yes [id number] 10mg Take 1 [facility] 10 mg 0-25 tablet by ity of tablet 00:00: mouth in [place] 00 the Medical morning Branch and 1 tablet in the evening. busPIRone 2021-03 Yes [id number] 10mg Take 1 [facility] n[facility] 10 mg 0-25 tablet by ity of tablet 00:00: mouth in [place] 00 the Medical morning Branch and 1 tablet in the evening. dextroamphe 2021-03 Yes [id number] 20mg Take 1 [facility] tamine-amph 0-25 tablet by ity of etamine 00:00: mouth in [place] ([facility]) 00 the Medical 20 mg morning Branch tablet and 1 tablet at noon and 1 tablet in the evening. busPIRone 2021-03 Yes [id number] 10mg Take 1 [facility] nivers 10 mg 0-25 tablet by ity of tablet 00:00: mouth in [place] 00 the Medical morning Branch and 1 tablet in the evening. dextroamphe 2021-03 Yes [id number] 20mg Take 1 [facility] tamine-amph 0-25 tablet by ity of etamine 00:00: mouth in [place] ([facility]) 00 the Medical 20 mg morning Branch tablet and 1 tablet at noon and 1 tablet in the evening. busPIRone 2021-03 Yes [id number] 10mg Take 1 [facility] nivers 10 mg 0-25 tablet by ity of tablet 00:00: mouth in [place] 00 the Medical morning Branch and 1 tablet in the evening. dextroamphe 2021-03 Yes [id number] 20mg Take 1 [facility] tamine-amph 0-25 tablet by ity of etamine 00:00: mouth in [place] ([facility]) 00 the Medical 20 mg morning Branch tablet and 1 tablet at noon and 1 tablet in the evening. busPIRone 2021-03 Yes [id number] 10mg Take 1 U nivers 10 mg 0-25 tablet by ity of tablet 00:00: mouth in [place] 00 the Medical morning Branch and 1 tablet in the evening. dextroamphe 2021-03 Yes [id number] 20mg Take 1 [facility] tamine-amph 0-25 tablet by ity of etamine 00:00: mouth in [place] ([facility]) 00 the Medical 20 mg morning Branch tablet and 1 tablet at noon and 1 tablet in the evening. busPIRone 2021-03 Yes [id number] 10mg Take 1 [facility] nivers 10 mg 0-25 tablet by ity of tablet 00:00: mouth in [place] 00 the Medical morning Branch and 1 tablet in the evening. dextroamphe 2021-03 Yes [id number] 20mg Take 1 [facility] tamine-amph 0-25 tablet by ity of etamine 00:00: mouth in [place] ([facility]) 00 the Medical 20 mg morning Branch tablet and 1 tablet at noon and 1 tablet in the evening. busPIRone 2021-03 Yes [id number] 10mg Take 1 [facility] nivers 10 mg 0-25 tablet by ity of tablet 00:00: mouth in [place] 00 the Medical morning Branch and 1 tablet in the evening. dextroamphe 2021-03 Yes [id number] 20mg Take 1 [facility] tamine-amph 0-25 tablet by ity of etamine 00:00: mouth in [place] ([facility] 00 the Medical 20 mg morning Branch tablet and 1 tablet at noon and 1 tablet in the evening. busPIRone 2021-03 Yes [id number] 10mg Take 1 U nivers 10 mg 0-25 tablet by ity of tablet 00:00: mouth in [place] 00 the Medical morning Branch and 1 tablet in the evening. dextroamphe 2021-03 Yes [id number] 20mg Take 1 [facility] tamine-amph 0-25 tablet by ity of etamine 00:00: mouth in [place] ([facility] the Medical 20 mg morning Branch tablet and 1 tablet at noon and 1 tablet in the evening. dextroamphe 2021-03 Yes [id number] 20mg Take 1 [facility] tamine-amph 0-25 tablet by ity of etamine 00:00: mouth in [place] ([facility]) 00 the Medical 20 mg morning Branch tablet and 1 tablet at noon and 1 tablet in the evening. dextroamphe 2021-03 Yes [id number] 20mg Take 1 [facility] tamine-amph 0-25 tablet by ity of etamine 00:00: mouth in [place] ([facility]) 00 the Medical 20 mg morning Branch tablet and 1 tablet at noon and 1 tablet in the evening. dextroamphe 2021-03- No [id number] 20mg Take 1 [facility] tamine-amph 0-25 11-28 tablet by it y of etamine 00:00: 00:00 mouth in [place] ([facility]) 00 :00 the Medical 20 mg morning Branch tablet and 1 tablet at noon and 1 tablet in the evening. busPIRone 2021-03- No [id number] 10mg Take 1 [facility] 10 mg 0-25 11- tablet by ity of tablet 00:00: 00:00 mouth in [place] 00 :00 the Medical morning Branch and 1 tablet in the evening. busPIRone 2021-03- No [id number] 10mg Take 1 [facility] 10 mg 0-25 - tablet by ity of tablet 00:00: 00:00 mouth in [place] 00 :00 the Medical morning Branch and 1 tablet in the evening. dextroamphe 2021-0 Yes [id number] 20mg Take 1 [facility] tamine-amph 9-26 tablet by ity of etamine 00:00: mouth in [place] ([facility]) 00 the Medical 20 mg morning Branch tablet and 1 tablet at noon and 1 tablet in the evening. dextroamphe 2021-0 Yes [id number] 20mg Take 1 [facility] tamine-amph 9-26 tablet by ity of etamine 00:00: mouth in [place] ([facility]) 00 the Medical 20 mg morning Branch tablet and 1 tablet at noon and 1 tablet in the evening. dextroamphe 2021-0 Yes [id number] 20mg Take 1 [facility] tamine-amph 9-26 tablet by ity of etamine 00:00: mouth in [place] ([facility] 00 the Medical 20 mg morning Branch tablet and 1 tablet at noon and 1 tablet in the evening. dextroamphe 2021-0 Yes [id number] 20mg Take 1 [facility] tamine-amph 9-26 tablet by ity of etamine 00:00: mouth in [place] ([facility] 00 the Medical 20 mg morning Branch tablet and 1 tablet at noon and 1 tablet in the evening. dextroamphe 2021-0 Yes [id number] 20mg Take 1 [facility] tamine-amph 9-26 tablet by ity of etamine 00:00: mouth in [place] ([facility]) 00 the Medical 20 mg morning Branch tablet and 1 tablet at noon and 1 tablet in the evening. dextroamphe 2-0 Yes [id number] 20mg Take 1 [facility] tamine-amph 9-26 tablet by ity of etamine 00:00: mouth in [place] ([facility]) 00 the Medical 20 mg morning Branch tablet and 1 tablet at noon and 1 tablet in the evening. dextroamphe 2-0 Yes [id number] 20mg Take 1 [facility] tamine-amph 9-26 tablet by ity of etamine 00:00: mouth in [place] ([facility]) 00 the Medical 20 mg morning Branch tablet and 1 tablet at noon and 1 tablet in the evening. dextroamphe 2021-0 2022- No [id number] 20mg Take 1 [facility] tamine-amph 9-26 10-25 tablet by it y of etamine 00:00: 00:00 mouth in [place] ([facility]) 00 :00 the Medical 20 mg morning Branch tablet and 1 tablet at noon and 1 tablet in the evening. dextroamphe 2021-0 2021- No [id number] 20mg Take 1 [facility] tamine-amph 9-26 10-25 tablet by it y of etamine 00:00: 00:00 mouth in [place] ([facility]) 00 :00 the Medical 20 mg morning Branch tablet and 1 tablet at noon and 1 tablet in the evening. PERMETHRIN 2021-0 Yes [id number] APPLY TO [facility] 5 % cream 9-08 SKIN AND ity of 00:00: LEAVE ON [place] 00 FOR 8 - 10 Medical HOURS THEN Branch REPEAT IN A WEEK PERMETHRIN 2021-0 Yes [id number] APPLY TO [facility] 5 % cream 9-08 SKIN AND ity of 00:00: LEAVE ON [place] 00 FOR 8 - 10 Medical HOURS THEN Branch REPEAT IN A WEEK PERMETHRIN 2021-0 Yes [id number] APPLY TO [facility] 5 % cream 9-08 SKIN AND ity of 00:00: LEAVE ON [place] 00 FOR 8 - 10 Medical HOURS THEN Branch REPEAT IN A WEEK PERMETHRIN 2021-0 Yes [id number] APPLY TO [facility] 5 % cream 9-08 SKIN AND ity of 00:00: LEAVE ON [place] 00 FOR 8 - 10 Medical HOURS THEN Branch REPEAT IN A WEEK PERMETHRIN 2021-0 Yes [id number] APPLY TO [facility] 5 % cream 9-08 SKIN AND ity of 00:00: LEAVE ON [place] 00 FOR 8 - 10 Medical HOURS THEN Branch REPEAT IN A WEEK PERMETHRIN Yes [id number] APPLY TO [facility] 5 % cream 9-08 SKIN AND ity of 00:00: LEAVE ON [place] 00 FOR 8 - 10 Medical HOURS THEN Branch REPEAT IN A WEEK PERMETHRIN 0 Yes [id number] APPLY TO [facility] 5 % cream 9-08 SKIN AND ity of 00:00: LEAVE ON [place] 00 FOR 8 - 10 Medical HOURS THEN Branch REPEAT IN A WEEK PERMETHRIN 0 Yes [id number] APPLY TO [facility] 5 % cream 9-08 SKIN AND ity of 00:00: LEAVE ON [place] 00 FOR 8 - 10 Medical HOURS THEN Branch REPEAT IN A WEEK PERMETHRIN Yes [id number] APPLY TO [facility] 5 % cream 9-08 SKIN AND ity of 00:00: LEAVE ON [place] 00 FOR 8 - 10 Medical HOURS THEN Branch REPEAT IN A WEEK PERMETHRIN Yes [id number] APPLY TO [facility] 5 % cream 9-08 SKIN AND ity of 00:00: LEAVE ON [place] 00 FOR 8 - 10 Medical HOURS THEN Branch REPEAT IN A WEEK PERMETHRIN Yes [id number] APPLY TO [facility] 5 % cream 9-08 SKIN AND ity of 00:00: LEAVE ON [place] 00 FOR 8 - 10 Medical HOURS THEN Branch REPEAT IN A WEEK PERMETHRIN Yes [id number] APPLY TO [facility] 5 % cream 9-08 SKIN AND ity of 00:00: LEAVE ON [place] 00 FOR 8 - 10 Medical HOURS THEN Branch REPEAT IN A WEEK PERMETHRIN 0 Yes [id number] APPLY TO [facility] 5 % cream 9-08 SKIN AND ity of 00:00: LEAVE ON [place] 00 FOR 8 - 10 Medical HOURS THEN Branch REPEAT IN A WEEK PERMETHRIN 0 Yes [id number] APPLY TO [facility] 5 % cream 9-08 SKIN AND ity of 00:00: LEAVE ON [place] 00 FOR 8 - 10 Medical HOURS THEN Branch REPEAT IN A WEEK PERMETHRIN 0 Yes [id number] APPLY TO [facility] 5 % cream 9-08 SKIN AND ity of 00:00: LEAVE ON [place] 00 FOR 8 - 10 Medical HOURS THEN Branch REPEAT IN A WEEK PERMETHRIN 0 Yes [id number] APPLY TO [facility] 5 % cream 12-04 SKIN AND ity of 00:00: LEAVE ON [place] 00 FOR 8 - 10 Medical HOURS THEN Branch REPEAT IN A WEEK PERMETHRIN 2021-0 2021- No [id number] APPLY TO [facility] 5 % cream 12-04 SKIN AND ity o f 00:00: 00:00 LEAVE ON [place] 00 :00 FOR 8 - 10 Medical HOURS THEN Branch REPEAT IN A WEEK PERMETHRIN 0 2021- No [id number] APPLY TO [facility] 5 % cream 12-04 SKIN AND ity o f 00:00: 00:00 LEAVE ON [place] 00 :00 FOR 8 - 10 Medical HOURS THEN Branch REPEAT IN A WEEK triamcinolo 0 Yes [id number] Apply to [facility] ne 8-31 area(s) 2 ity of acetonide 00:00: (two) [place] 0.1 % cream 00 times Medical daily. To Branch bumps mupirocin 2 0 Yes [id number] Apply to [facility] % ointment 11-26 area(s) 3 ity of 00:00: (three) [place] 00 times Medical daily. To Branch open wounds triamcinolo 2021-0 Yes [id number] Apply to [facility] ne 8-31 area(s) 2 ity of acetonide 00:00: (two) [place] 0.1 % cream 00 times Medical daily. To Branch bumps mupirocin 2 2021-0 Yes [id number] Apply to [facility] % ointment 11-26 area(s) 3 ity of 00:00: (three) [place] 00 times Medical daily. To Branch open wounds triamcinolo 2021-0 Yes [id number] Apply to [facility] ne 8-31 area(s) 2 ity of acetonide 00:00: (two) [place] 0.1 % cream 00 times Medical daily. To Branch bumps mupirocin 2 2021-0 Yes [id number] Apply to [facility] % ointment 8-31 area(s) 3 ity of 00:00: (three) [place] 00 times Medical daily. To Branch open wounds triamcinolo 2021-0 Yes [id number] Apply to [facility] ne 8-31 area(s) 2 ity of acetonide 00:00: (two) [place] 0.1 % cream 00 times Medical daily. To Branch bumps mupirocin 2 2-0 Yes [id number] Apply to [facility] % ointment 8-31 area(s) 3 ity of 00:00: (three) [place] 00 times Medical daily. To Branch open wounds triamcinolo 2-0 Yes [id number] Apply to [facility] ne 8-31 area(s) 2 ity of acetonide 00:00: (two) [place] 0.1 % cream 00 times Medical daily. To Branch bumps mupirocin 2 2021-0 Yes [id number] Apply to [facility] % ointment 8-31 area(s) 3 ity of 00:00: (three) [place] 00 times Medical daily. To Branch open wounds triamcinolo 2-0 Yes [id number] Apply to [facility] ne 8-31 area(s) 2 ity of acetonide 00:00: (two) [place] 0.1 % cream 00 times Medical daily. To Branch bumps mupirocin 2 2021-0 Yes [id number] Apply to [facility] % ointment 8-31 area(s) 3 ity of 00:00: (three) [place] 00 times Medical daily. To Branch open wounds triamcinolo 2-0 Yes [id number] Apply to [facility] ne 8-31 area(s) 2 ity of acetonide 00:00: (two) [place] 0.1 % cream 00 times Medical daily. To Branch bumps mupirocin 2 2021-0 Yes [id number] Apply to [facility] % ointment 8-31 area(s) 3 ity of 00:00: (three) [place] 00 times Medical daily. To Branch open wounds triamcinolo 2-0 Yes [id number] Apply to [facility] ne 8-31 area(s) 2 ity of acetonide 00:00: (two) [place] 0.1 % cream 00 times Medical daily. To Branch bumps mupirocin 2 2-0 Yes [id number] Apply to [facility] % ointment 8-31 area(s) 3 ity of 00:00: (three) [place] 00 times Medical daily. To Branch open wounds triamcinolo 2-0 Yes [id number] Apply to [facility] ne 8-31 area(s) 2 ity of acetonide 00:00: (two) [place] 0.1 % cream 00 times Medical daily. To Branch bumps mupirocin 2 2-0 Yes [id number] Apply to [facility] % ointment 8-31 area(s) 3 ity of 00:00: (three) [place] 00 times Medical daily. To Branch open wounds triamcinolo 2-0 Yes [id number] Apply to [facility] ne 8-31 area(s) 2 ity of acetonide 00:00: (two) [place] 0.1 % cream 00 times Medical daily. To Branch bumps mupirocin 2 2021-0 Yes [id number] Apply to [facility] % ointment 8-31 area(s) 3 ity of 00:00: (three) [place] 00 times Medical daily. To Branch open wounds triamcinolo 2-0 Yes [id number] Apply to [facility] ne 8-31 area(s) 2 ity of acetonide 00:00: (two) [place] 0.1 % cream 00 times Medical daily. To Branch bumps mupirocin 2 2021-0 Yes [id number] Apply to [facility] % ointment 8-31 area(s) 3 ity of 00:00: (three) [place] 00 times Medical daily. To Branch open wounds triamcinolo 2021-0 Yes [id number] Apply to [facility] ne 8-31 area(s) 2 ity of acetonide 00:00: (two) [place] 0.1 % cream 00 times Medical daily. To Branch bumps mupirocin 2 2021-0 Yes [id number] Apply to [facility] % ointment 8-31 area(s) 3 ity of 00:00: (three) [place] 00 times Medical daily. To Branch open wounds triamcinolo 2-0 Yes [id number] Apply to [facility] ne 8-31 area(s) 2 ity of acetonide 00:00: (two) [place] 0.1 % cream 00 times Medical daily. To Branch bumps mupirocin 2 2-0 Yes [id number] Apply to [facility] % ointment 8-31 area(s) 3 ity of 00:00: (three) [place] 00 times Medical daily. To Branch open wounds triamcinolo 2-0 Yes [id number] Apply to [facility] ne 8-31 area(s) 2 ity of acetonide 00:00: (two) [place] 0.1 % cream 00 times Medical daily. To Branch bumps mupirocin 2 2-0 Yes [id number] Apply to [facility] % ointment 8-31 area(s) 3 ity of 00:00: (three) [place] 00 times Medical daily. To Branch open wounds triamcinolo 2022-0 Yes [id number] Apply to [facility] ne 8-31 area(s) 2 ity of acetonide 00:00: (two) [place] 0.1 % cream 00 times Medical daily. To Branch bumps mupirocin 2 2-0 Yes [id number] Apply to [facility] % ointment 8-31 area(s) 3 ity of 00:00: (three) [place] 00 times Medical daily. To Branch open wounds triamcinolo 2-0 Yes [id number] Apply to [facility] ne 8-31 area(s) 2 ity of acetonide 00:00: (two) [place] 0.1 % cream 00 times Medical daily. To Branch bumps mupirocin 2 2021-0 Yes [id number] Apply to [facility] % ointment 8-31 area(s) 3 ity of 00:00: (three) [place] 00 times Medical daily. To Branch open wounds triamcinolo 2-0 Yes [id number] Apply to [facility] ne 8-31 area(s) 2 ity of acetonide 00:00: (two) [place] 0.1 % cream 00 times Medical daily. To Branch bumps mupirocin 2 2-0 Yes [id number] Apply to [facility] % ointment 8-31 area(s) 3 ity of 00:00: (three) [place] 00 times Medical daily. To Branch open wounds triamcinolo 2-0 Yes [id number] [facility] to [facility] 8-[facility] area(s) 2 [facility] of acetonide 00:00: (two) [place] 0.1 % cream 00 times Medical daily. To Branch bumps mupirocin 2 2-0 Yes [id number] Apply to [facility] % ointment 8-31 area(s) 3 ity of 00:00: (three) [place] 00 times Medical daily. To Branch open wounds triamcinolo 2-0 Yes [id number] Apply to [facility] ne 8-31 area(s) 2 ity of acetonide 00:00: (two) [place] 0.1 % cream 00 times Medical daily. To Branch bumps mupirocin 2 2-0 Yes [id number] Apply to [facility] % ointment 8-31 area(s) 3 ity of 00:00: (three) [place] 00 times Medical daily. To Branch open wounds triamcinolo 2-0 Yes [id number] Apply to [facility] ne 8-31 area(s) 2 ity of acetonide 00:00: (two) [place] 0.1 % cream 00 times Medical daily. To Branch bumps mupirocin 2 2021-0 Yes [id number] Apply to [facility] % ointment 8-31 area(s) 3 ity of 00:00: (three) [place] 00 times Medical daily. To Branch open wounds triamcinolo 2021-0 Yes [id number] Apply to [facility] ne 8-31 area(s) 2 ity of acetonide 00:00: (two) [place] 0.1 % cream 00 times Medical daily. To Branch bumps mupirocin 2 2021-0 Yes [id number] Apply to [facility] % ointment 8-31 area(s) 3 ity of 00:00: (three) [place] 00 times Medical daily. To Branch open wounds triamcinolo 2-0 Yes [id number] Apply to [facility] ne 8-31 area(s) 2 ity of acetonide 00:00: (two) [place] 0.1 % cream 00 times Medical daily. To Branch bumps mupirocin 2 2-0 Yes [id number] Apply to [facility] % ointment 8-31 area(s) 3 ity of 00:00: (three) [place] 00 times Medical daily. To Branch open wounds triamcinolo 2-0 Yes [id number] Apply to [facility] ne 8-31 area(s) 2 ity of acetonide 00:00: (two) [place] 0.1 % cream 00 times Medical daily. To Branch bumps mupirocin 2 2-0 Yes [id number] Apply to [facility] % ointment 8-31 area(s) 3 ity of 00:00: (three) [place] 00 times Medical daily. To Branch open wounds triamcinolo 2-0 Yes [id number] Apply to [facility] ne 8-31 area(s) 2 ity of acetonide 00:00: (two) [place] 0.1 % cream 00 times Medical daily. To Branch bumps mupirocin 2 2021-0 Yes [id number] Apply to [facility] % ointment 8-31 area(s) 3 ity of 00:00: (three) [place] 00 times Medical daily. To Branch open wounds dextroamphe 2-0 Yes [id number] 20mg Take 1 [facility] tamine-amph 8-31 tablet by ity of etamine 00:00: mouth in [place] (ADDERALL) 00 the Medical 20 mg morning Branch tablet and 1 tablet at noon and 1 tablet in the evening. triamcinolo 2021-0 Yes [id number] Apply to [facility] ne 8-31 area(s) 2 ity of acetonide 00:00: (two) [place] 0.1 % cream 00 times Medical daily. To Branch bumps mupirocin 2 2021-0 Yes [id number] Apply to [facility] % ointment 8-31 area(s) 3 ity of 00:00: (three) [place] 00 times Medical daily. To Branch open wounds dextroamphe 2021-0 Yes [id number] 20mg Take 1 [facility] tamine-amph 8-31 tablet by ity of etamine 00:00: mouth in [place] (ADDERALL) 00 the Medical 20 mg morning Branch tablet and 1 tablet at noon and 1 tablet in the evening. triamcinolo 2-0 Yes [id number] Apply to [facility] ne 8-31 area(s) 2 ity of acetonide 00:00: (two) [place] 0.1 % cream 00 times Medical daily. To Branch bumps mupirocin 2 2021-0 Yes [id number] Apply to [facility] % ointment 8-31 area(s) 3 ity of 00:00: (three) [place] 00 times Medical daily. To Branch open wounds dextroamphe 2-0 Yes [id number] 20mg Take 1 [facility] tamine-amph 8-31 tablet by ity of etamine 00:00: mouth in [place] (ADDERALL) 00 the Medical 20 mg morning Branch tablet and 1 tablet at noon and 1 tablet in the evening. triamcinolo 2022-0 Yes [id number] Apply to [facility] ne 8-31 area(s) 2 ity of acetonide 00:00: (two) [place] 0.1 % cream 00 times Medical daily. To Branch bumps mupirocin 2 2021-0 Yes [id number] Apply to [facility] % ointment 8-31 area(s) 3 ity of 00:00: (three) [place] 00 times Medical daily. To Branch open wounds triamcinolo 2-0 Yes [id number] Apply to [facility] ne 8-31 area(s) 2 ity of acetonide 00:00: (two) [place] 0.1 % cream 00 times Medical daily. To Branch bumps mupirocin 2 2021-0 Yes [id number] Apply to [facility] % ointment 8-31 area(s) 3 ity of 00:00: (three) [place] 00 times Medical daily. To Branch open wounds triamcinolo 2-0 Yes [id number] Apply to [facility] ne 8-31 area(s) 2 ity of acetonide 00:00: (two) [place] 0.1 % cream 00 times Medical daily. To Branch bumps mupirocin 2 2021-0 Yes [id number] Apply to [facility] % ointment 8-31 area(s) 3 ity of 00:00: (three) [place] 00 times Medical daily. To Branch open wounds triamcinolo 2-0 Yes [id number] Apply to [facility] ne 8-31 area(s) 2 ity of acetonide 00:00: (two) [place] 0.1 % cream 00 times Medical daily. To Branch bumps mupirocin 2 2021-0 Yes [id number] Apply to [facility] % ointment 8-31 area(s) 3 ity of 00:00: (three) [place] 00 times Medical daily. To Branch open wounds triamcinolo 2-0 Yes [id number] Apply to [facility] ne 8-31 area(s) 2 ity of acetonide 00:00: (two) [place] 0.1 % cream 00 times Medical daily. To Branch bumps mupirocin 2 2-0 Yes [id number] Apply to [facility] % ointment 8-31 area(s) 3 ity of 00:00: (three) [place] 00 times Medical daily. To Branch open wounds triamcinolo 2-0 Yes [id number] Apply to [facility] ne 8-31 area(s) 2 ity of acetonide 00:00: (two) [place] 0.1 % cream 00 times Medical daily. To Branch bumps mupirocin 2 2021-0 Yes [id number] Apply to [facility] % ointment 8-31 area(s) 3 ity of 00:00: (three) [place] 00 times Medical daily. To Branch open wounds triamcinolo 2-0 Yes [id number] Apply to [facility] ne 8-31 area(s) 2 ity of acetonide 00:00: (two) [place] 0.1 % cream 00 times Medical daily. To Branch bumps mupirocin 2 2021-0 Yes [id number] Apply to [facility] % ointment 8-31 area(s) 3 ity of 00:00: (three) [place] 00 times Medical daily. To Branch open wounds triamcinolo 2021-0 Yes [id number] Apply to [facility] ne 8-31 area(s) 2 ity of acetonide 00:00: (two) [place] 0.1 % cream 00 times Medical daily. To Branch bumps mupirocin 2 2021-0 Yes [id number] Apply to [facility] % ointment 8-31 area(s) 3 ity of 00:00: (three) [place] 00 times Medical daily. To Branch open wounds triamcinolo 2-0 Yes [id number] Apply to [facility] ne 8-31 area(s) 2 ity of acetonide 00:00: (two) [place] 0.1 % cream 00 times Medical daily. To Branch bumps mupirocin 2 2021-0 Yes [id number] Apply to [facility] % ointment 8-31 area(s) 3 ity of 00:00: (three) [place] 00 times Medical daily. To Branch open wounds triamcinolo 2-0 Yes [id number] Apply to [facility] ne 8-31 area(s) 2 ity of acetonide 00:00: (two) [place] 0.1 % cream 00 times Medical daily. To Branch bumps mupirocin 2 2-0 Yes [id number] Apply to [facility] % ointment 8-31 area(s) 3 ity of 00:00: (three) [place] 00 times Medical daily. To Branch open wounds triamcinolo 2-0 Yes [id number] Apply to [facility] ne 8-31 area(s) 2 ity of acetonide 00:00: (two) [place] 0.1 % cream 00 times Medical daily. To Branch bumps mupirocin 2 2-0 Yes [id number] Apply to [facility] % ointment 8-31 area(s) 3 ity of 00:00: (three) [place] 00 times Medical daily. To Branch open wounds triamcinolo 2-0 Yes [id number] Apply to [facility] ne 8-31 area(s) 2 ity of acetonide 00:00: (two) [place] 0.1 % cream 00 times Medical daily. To Branch bumps mupirocin 2 2021-0 Yes [id number] Apply to [facility] % ointment 8-31 area(s) 3 ity of 00:00: (three) [place] 00 times Medical daily. To Branch open wounds triamcinolo 2-0 Yes [id number] Apply to [facility] ne 8-31 area(s) 2 ity of acetonide 00:00: (two) [place] 0.1 % cream 00 times Medical daily. To Branch bumps mupirocin 2 2021-0 Yes [id number] Apply to [facility] % ointment 8-31 area(s) 3 ity of 00:00: (three) [place] 00 times Medical daily. To Branch open wounds triamcinolo 2-0 Yes [id number] Apply to [facility] ne 8-31 area(s) 2 ity of acetonide 00:00: (two) [place] 0.1 % cream 00 times Medical daily. To Branch bumps mupirocin 2 2-0 Yes [id number] Apply to [facility] % ointment 8-31 area(s) 3 ity of 00:00: (three) [place] 00 times Medical daily. To Branch open wounds triamcinolo 2-0 Yes [id number] Apply to [facility] ne 8-31 area(s) 2 ity of acetonide 00:00: (two) [place] 0.1 % cream 00 times Medical daily. To Branch bumps mupirocin 2 2-0 Yes [id number] Apply to [facility] % ointment 8-31 area(s) 3 ity of 00:00: (three) [place] 00 times Medical daily. To Branch open wounds triamcinolo 2-0 Yes [id number] Apply to [facility] ne 8-31 area(s) 2 ity of acetonide 00:00: (two) [place] 0.1 % cream 00 times Medical daily. To Branch bumps mupirocin 2 2021-0 Yes [id number] Apply to [facility] % ointment 8-31 area(s) 3 ity of 00:00: (three) [place] 00 times Medical daily. To Branch open wounds triamcinolo 2-0 Yes [id number] Apply to [facility] ne 8-31 area(s) 2 ity of acetonide 00:00: (two) [place] 0.1 % cream 00 times Medical daily. To Branch bumps mupirocin 2 2021-0 Yes [id number] Apply to [facility] % ointment 8-31 area(s) 3 ity of 00:00: (three) [place] 00 times Medical daily. To Branch open wounds triamcinolo 2021-0 Yes [id number] Apply to [facility] ne 8-31 area(s) 2 ity of acetonide 00:00: (two) [place] 0.1 % cream 00 times Medical daily. To Branch bumps mupirocin 2 2021-0 Yes [id number] Apply to [facility] % ointment 8-31 area(s) 3 ity of 00:00: (three) [place] 00 times Medical daily. To Branch open wounds triamcinolo 2-0 Yes [id number] Apply to [facility] ne 8-31 area(s) 2 ity of acetonide 00:00: (two) [place] 0.1 % cream 00 times Medical daily. To Branch bumps mupirocin 2 2021-0 Yes [id number] Apply to [facility] % ointment 8-31 area(s) 3 ity of 00:00: (three) [place] 00 times Medical daily. To Branch open wounds triamcinolo 2-0 Yes [id number] Apply to [facility] ne 8-31 area(s) 2 ity of acetonide 00:00: (two) [place] 0.1 % cream 00 times Medical daily. To Branch bumps mupirocin 2 2-0 Yes [id number] Apply to [facility] % ointment 8-31 area(s) 3 ity of 00:00: (three) [place] 00 times Medical daily. To Branch open wounds triamcinolo 2-0 Yes [id number] Apply to [facility] ne 8-31 area(s) 2 ity of acetonide 00:00: (two) [place] 0.1 % cream 00 times Medical daily. To Branch bumps mupirocin 2 2021-0 Yes [id number] Apply to [facility] % ointment 8-31 area(s) 3 ity of 00:00: (three) [place] 00 times Medical daily. To Branch open wounds triamcinolo 2-0 Yes [id number] Apply to [facility] ne 8-31 area(s) 2 ity of acetonide 00:00: (two) [place] 0.1 % cream 00 times Medical daily. To Branch bumps mupirocin 2 2021-0 Yes [id number] Apply to [facility] % ointment 8-31 area(s) 3 ity of 00:00: (three) [place] 00 times Medical daily. To Branch open wounds triamcinolo 2021-0 Yes [id number] Apply to [facility] ne 8-31 area(s) 2 ity of acetonide 00:00: (two) [place] 0.1 % cream 00 times Medical daily. To Branch bumps mupirocin 2 2021-0 Yes [id number] Apply to [facility] % ointment 8-31 area(s) 3 ity of 00:00: (three) [place] 00 times Medical daily. To Branch open wounds triamcinolo 2-0 Yes [id number] Apply to [facility] ne 8-31 area(s) 2 ity of acetonide 00:00: (two) [place] 0.1 % cream 00 times Medical daily. To Branch bumps mupirocin 2 2-0 Yes [id number] Apply to [facility] % ointment 8-31 area(s) 3 ity of 00:00: (three) [place] 00 times Medical daily. To Branch open wounds triamcinolo 2-0 Yes [id number] Apply to [facility] ne 8-31 area(s) 2 ity of acetonide 00:00: (two) [place] 0.1 % cream 00 times Medical daily. To Branch bumps mupirocin 2 2-0 Yes [id number] Apply to [facility] % ointment 8-31 area(s) 3 ity of 00:00: (three) [place] 00 times Medical daily. To Branch open wounds triamcinolo 2-0 Yes [id number] Apply to [facility] ne 8-31 area(s) 2 ity of acetonide 00:00: (two) [place] 0.1 % cream 00 times Medical daily. To Branch bumps mupirocin 2 2021-0 Yes [id number] Apply to [facility] % ointment 8-31 area(s) 3 ity of 00:00: (three) [place] 00 times Medical daily. To Branch open wounds triamcinolo 2-0 Yes [id number] Apply to [facility] ne 8-31 area(s) 2 ity of acetonide 00:00: (two) [place] 0.1 % cream 00 times Medical daily. To Branch bumps mupirocin 2 2021-0 Yes [id number] Apply to [facility] % ointment 8-31 area(s) 3 ity of 00:00: (three) [place] 00 times Medical daily. To Branch open wounds triamcinolo 2021-0 Yes [id number] Apply to [facility] ne 8-31 area(s) 2 ity of acetonide 00:00: (two) [place] 0.1 % cream 00 times Medical daily. To Branch bumps mupirocin 2 2021-0 Yes [id number] Apply to [facility] % ointment 8-31 area(s) 3 ity of 00:00: (three) [place] 00 times Medical daily. To Branch open wounds triamcinolo 2-0 Yes [id number] Apply to [facility] ne 8-31 area(s) 2 ity of acetonide 00:00: (two) [place] 0.1 % cream 00 times Medical daily. To Branch bumps mupirocin 2 2-0 Yes [id number] Apply to [facility] % ointment 8-31 area(s) 3 ity of 00:00: (three) [place] 00 times Medical daily. To Branch open wounds triamcinolo 2-0 Yes [id number] Apply to [facility] ne 8-31 area(s) 2 ity of acetonide 00:00: (two) [place] 0.1 % cream 00 times Medical daily. To Branch bumps mupirocin 2 2-0 Yes [id number] Apply to [facility] % ointment 8-31 area(s) 3 ity of 00:00: (three) [place] 00 times Medical daily. To Branch open wounds triamcinolo 2-0 Yes [id number] Apply to [facility] ne 8-31 area(s) 2 ity of acetonide 00:00: (two) [place] 0.1 % cream 00 times Medical daily. To Branch bumps mupirocin 2 2-0 Yes [id number] Apply to [facility] % ointment 8-31 area(s) 3 ity of 00:00: (three) [place] 00 times Medical daily. To Branch open wounds triamcinolo 2-0 Yes [id number] Apply to [facility] ne 8-31 area(s) 2 ity of acetonide 00:00: (two) [place] 0.1 % cream 00 times Medical daily. To Branch bumps mupirocin 2 2021-0 Yes [id number] Apply to [facility] % ointment 8-31 area(s) 3 ity of 00:00: (three) [place] 00 times Medical daily. To Branch open wounds triamcinolo 2-0 Yes [id number] Apply to [facility] ne 8-31 area(s) 2 ity of acetonide 00:00: (two) [place] 0.1 % cream 00 times Medical daily. To Branch bumps mupirocin 2 2-0 Yes [id number] Apply to [facility] % ointment 8-31 area(s) 3 ity of 00:00: (three) [place] 00 times Medical daily. To Branch open wounds triamcinolo 2-0 Yes [id number] Apply to [facility] ne 8-31 area(s) 2 ity of acetonide 00:00: (two) [place] 0.1 % cream 00 times Medical daily. To Branch bumps mupirocin 2 2-0 Yes [id number] Apply to [facility] % ointment 8-31 area(s) 3 ity of 00:00: (three) [place] 00 times Medical daily. To Branch open wounds triamcinolo 2022-0 Yes [id number] Apply to [facility] ne 8-31 area(s) 2 ity of acetonide 00:00: (two) [place] 0.1 % cream 00 times Medical daily. To Branch bumps mupirocin 2 2-0 Yes [id number] Apply to [facility] % ointment 8-31 area(s) 3 ity of 00:00: (three) [place] 00 times Medical daily. To Branch open wounds triamcinolo 2-0 Yes [id number] Apply to [facility] ne 8-31 area(s) 2 ity of acetonide 00:00: (two) [place] 0.1 % cream 00 times Medical daily. To Branch bumps mupirocin 2 2021-0 Yes [id number] Apply to [facility] % ointment 8-31 area(s) 3 ity of 00:00: (three) [place] 00 times Medical daily. To Branch open wounds triamcinolo 2-0 Yes [id number] Apply to [facility] ne 8-31 area(s) 2 ity of acetonide 00:00: (two) [place] 0.1 % cream 00 times Medical daily. To Branch bumps mupirocin 2 2021-0 Yes [id number] Apply to [facility] % ointment 8-31 area(s) 3 ity of 00:00: (three) [place] 00 times Medical daily. To Branch open wounds triamcinolo 2-0 Yes [id number] Apply to [facility] ne 8-31 area(s) 2 ity of acetonide 00:00: (two) [place] 0.1 % cream 00 times Medical daily. To Branch bumps mupirocin 2 2-0 Yes [id number] Apply to [facility] % ointment 8-31 area(s) 3 ity of 00:00: (three) [place] 00 times Medical daily. To Branch open wounds triamcinolo 2-0 Yes [id number] Apply to [facility] ne 8-31 area(s) 2 ity of acetonide 00:00: (two) [place] 0.1 % cream 00 times Medical daily. To Branch bumps mupirocin 2 2-0 Yes [id number] Apply to [facility] % ointment 8-31 area(s) 3 ity of 00:00: (three) [place] 00 times Medical daily. To Branch open wounds triamcinolo 2-0 Yes [id number] Apply to [facility] ne 8-31 area(s) 2 ity of acetonide 00:00: (two) [place] 0.1 % cream 00 times Medical daily. To Branch bumps mupirocin 2 2-0 Yes [id number] Apply to [facility] % ointment 8-31 area(s) 3 ity of 00:00: (three) [place] 00 times Medical daily. To Branch open wounds triamcinolo 2-0 Yes [id number] Apply to [facility] ne 8-31 area(s) 2 ity of acetonide 00:00: (two) [place] 0.1 % cream 00 times Medical daily. To Branch bumps mupirocin 2 2-0 Yes [id number] Apply to [facility] % ointment 8-31 area(s) 3 ity of 00:00: (three) [place] 00 times Medical daily. To Branch open wounds triamcinolo 2-0 Yes [id number] Apply to [facility] ne 8-31 area(s) 2 ity of acetonide 00:00: (two) [place] 0.1 % cream 00 times Medical daily. To Branch bumps mupirocin 2 2021-0 Yes [id number] Apply to [facility] % ointment 8-31 area(s) 3 ity of 00:00: (three) [place] 00 times Medical daily. To Branch open wounds triamcinolo 2-0 Yes [id number] Apply to [facility] ne 8-31 area(s) 2 ity of acetonide 00:00: (two) [place] 0.1 % cream 00 times Medical daily. To Branch bumps mupirocin 2 2-0 Yes [id number] Apply to [facility] % ointment 8-31 area(s) 3 ity of 00:00: (three) [place] 00 times Medical daily. To Branch open wounds triamcinolo 2-0 Yes [id number] Apply to [facility] ne 8-31 area(s) 2 ity of acetonide 00:00: (two) [place] 0.1 % cream 00 times Medical daily. To Branch bumps mupirocin 2 2-0 Yes [id number] Apply to [facility] % ointment 8-31 area(s) 3 ity of 00:00: (three) [place] 00 times Medical daily. To Branch open wounds triamcinolo 2-0 Yes [id number] Apply to [facility] ne 8-31 area(s) 2 ity of acetonide 00:00: (two) [place] 0.1 % cream 00 times Medical daily. To Branch bumps mupirocin 2 2-0 Yes [id number] Apply to [facility] % ointment 8-31 area(s) 3 ity of 00:00: (three) [place] 00 times Medical daily. To Branch open wounds triamcinolo 2-0 Yes [id number] Apply to [facility] ne 8-31 area(s) 2 ity of acetonide 00:00: (two) [place] 0.1 % cream 00 times Medical daily. To Branch bumps mupirocin 2 2021-0 Yes [id number] Apply to [facility] % ointment 8-31 area(s) 3 ity of 00:00: (three) [place] 00 times Medical daily. To Branch open wounds triamcinolo 2-0 Yes [id number] Apply to [facility] ne 8-31 area(s) 2 ity of acetonide 00:00: (two) [place] 0.1 % cream 00 times Medical daily. To Branch bumps mupirocin 2 2021-0 Yes [id number] Apply to [facility] % ointment 8-31 area(s) 3 ity of 00:00: (three) [place] 00 times Medical daily. To Branch open wounds triamcinolo 2-0 Yes [id number] Apply to [facility] ne 8-31 area(s) 2 ity of acetonide 00:00: (two) [place] 0.1 % cream 00 times Medical daily. To Branch bumps mupirocin 2 2-0 Yes [id number] Apply to [facility] % ointment 8-31 area(s) 3 ity of 00:00: (three) [place] 00 times Medical daily. To Branch open wounds triamcinolo 2-0 Yes [id number] Apply to [facility] ne 8-31 area(s) 2 ity of acetonide 00:00: (two) [place] 0.1 % cream 00 times Medical daily. To Branch bumps mupirocin 2 2-0 Yes [id number] Apply to [facility] % ointment 8-31 area(s) 3 ity of 00:00: (three) [place] 00 times Medical daily. To Branch open wounds triamcinolo 2-0 Yes [id number] Apply to [facility] ne 8-31 area(s) 2 ity of acetonide 00:00: (two) [place] 0.1 % cream 00 times Medical daily. To Branch bumps mupirocin 2 2021-0 Yes [id number] Apply to [facility] % ointment 8-31 area(s) 3 ity of 00:00: (three) [place] 00 times Medical daily. To Branch open wounds triamcinolo 2021-0 Yes [id number] Apply to [facility] ne 8-31 area(s) 2 ity of acetonide 00:00: (two) [place] 0.1 % cream 00 times Medical daily. To Branch bumps mupirocin 2 2021-0 Yes [id number] Apply to [facility] % ointment 8-31 area(s) 3 ity of 00:00: (three) [place] 00 times Medical daily. To Branch open wounds triamcinolo 2021-0 Yes [id number] Apply to [facility] ne 8-31 area(s) 2 ity of acetonide 00:00: (two) [place] 0.1 % cream 00 times Medical daily. To Branch bumps mupirocin 2 2021-0 Yes [id number] Apply to [facility] % ointment 8-31 area(s) 3 ity of 00:00: (three) [place] 00 times Medical daily. To Branch open wounds triamcinolo 2021-0 Yes [id number] Apply to [facility] ne 8-31 area(s) 2 ity of acetonide 00:00: (two) [place] 0.1 % cream 00 times Medical daily. To Branch bumps mupirocin 2 2021-0 Yes [id number] Apply to [facility] % ointment 8-31 area(s) 3 ity of 00:00: (three) [place] 00 times Medical daily. To Branch open wounds triamcinolo 2-0 Yes [id number] Apply to [facility] ne 8-31 area(s) 2 ity of acetonide 00:00: (two) [place] 0.1 % cream 00 times Medical daily. To Branch bumps mupirocin 2 2-0 Yes [id number] Apply to [facility] % ointment 8-31 area(s) 3 ity of 00:00: (three) [place] 00 times Medical daily. To Branch open wounds triamcinolo Yes [id number] Apply to [facility] ne 11-26 area(s) 2 ity of acetonide 00:00: (two) [place] 0.1 % cream 00 times Medical daily. To Branch bumps mupirocin 2 Yes [id number] Apply to [facility] % ointment 11-26 area(s) 3 ity of 00:00: (three) [place] 00 times Medical daily. To Branch open wounds triamcinolo 2022- No [id number] Apply to [facility] ne 11-26 area(s) 2 ity of acetonide 00:00: 00:00 (two) [place] 0.1 % cream 00 :00 times Medical daily. To Branch bumps mupirocin 2 2022- No [id number] Apply to [facility] % ointment 11-26 area(s) 3 ity of 00:00: 00:00 (three) [place] 00 :00 times Medical daily. To Branch open wounds triamcinolo 2022- No [id number] Apply to [facility] ne 11-26 area(s) 2 ity of acetonide 00:00: 00:00 (two) [place] 0.1 % cream 00 :00 times Medical daily. To Branch bumps mupirocin 2 2022- No [id number] Apply to [facility] % ointment 11-26 area(s) 3 ity of 00:00: 00:00 (three) [place] 00 :00 times Medical daily. To Branch open wounds dextroamphe 2021- No [id number] 20mg Take 1 [facility] tamine-amph 11-26 tablet by it y of etamine 00:00: 00:00 mouth in [place] (ADDERALL) 00 :00 the Medical 20 mg morning Branch tablet and 1 tablet at noon and 1 tablet in the evening. amoxicillin Yes [id number] 1{tbl} Take 1 [facility] -clavulanat 8-30 tablet by ity of e 875-125 00:00: mouth [place] mg per 00 every 12 Medical tablet (twelve) Branch hours. amoxicillin Yes [id number] 1{tbl} Take 1 [facility] -clavulanat 8-30 tablet by ity of e 875-125 00:00: mouth [place] mg per 00 every 12 Medical tablet (twelve) Branch hours. amoxicillin 2022-0 Yes [id number] 1{tbl} Take 1 [facility] -clavulanat 8-30 tablet by ity of e 875-125 00:00: mouth [place] mg per 00 every 12 Medical tablet (twelve) Branch hours. amoxicillin 2022-0 Yes [id number] 1{tbl} Take 1 [facility] -clavulanat 8-30 tablet by ity of e 875-125 00:00: mouth [place] mg per 00 every 12 Medical tablet (twelve) Branch hours. amoxicillin 2021-0 Yes [id number] 1{tbl} Take 1 [facility] -clavulanat 8-30 tablet by ity of e 875-125 00:00: mouth [place] mg per 00 every 12 Medical tablet (twelve) Branch hours. amoxicillin 2021-0 Yes [id number] 1{tbl} Take 1 [facility] -clavulanat 8-30 tablet by ity of e 875-125 00:00: mouth [place] mg per 00 every 12 Medical tablet (twelve) Branch hours. amoxicillin 2021-0 Yes [id number] 1{tbl} Take 1 [facility] -clavulanat 8-30 tablet by ity of e 875-125 00:00: mouth [place] mg per 00 every 12 Medical tablet (twelve) Branch hours. amoxicillin 2022-0 Yes [id number] 1{tbl} Take 1 [facility] -clavulanat 8-30 tablet by ity of e 875-125 00:00: mouth [place] mg per 00 every 12 Medical tablet (twelve) Branch hours. amoxicillin 2022-0 Yes [id number] 1{tbl} Take 1 [facility] -clavulanat 8-30 tablet by ity of e 875-125 00:00: mouth [place] mg per 00 every 12 Medical tablet (twelve) Branch hours. amoxicillin 2022-0 Yes [id number] 1{tbl} Take 1 [facility] -clavulanat 8-30 tablet by ity of e 875-125 00:00: mouth [place] mg per 00 every 12 Medical tablet (twelve) Branch hours. amoxicillin 2022-0 Yes [id number] 1{tbl} Take 1 [facility] -clavulanat 8-30 tablet by ity of e 875-125 00:00: mouth [place] mg per 00 every 12 Medical tablet (twelve) Branch hours. amoxicillin 2021-0 Yes [id number] 1{tbl} Take 1 [facility] -clavulanat 8-30 tablet by ity of e 875-125 00:00: mouth [place] mg per 00 every 12 Medical tablet (twelve) Branch hours. amoxicillin 2021-0 Yes [id number] 1{tbl} Take 1 [facility] -clavulanat 8-30 tablet by ity of e 875-125 00:00: mouth [place] mg per 00 every 12 Medical tablet (twelve) Branch hours. amoxicillin 2021-0 Yes [id number] 1{tbl} Take 1 [facility] -clavulanat 8-30 tablet by ity of e 875-125 00:00: mouth [place] mg per 00 every 12 Medical tablet (twelve) Branch hours. amoxicillin 2021-0 Yes [id number] 1{tbl} Take 1 [facility] -clavulanat 8-30 tablet by ity of e 875-125 00:00: mouth [place] mg per 00 every 12 Medical tablet (twelve) Branch hours. amoxicillin 2021-0 Yes [id number] 1{tbl} Take 1 [facility] -clavulanat 8-30 tablet by ity of e 875-125 00:00: mouth [place] mg per 00 every 12 Medical tablet (twelve) Branch hours. amoxicillin 2021-0 Yes [id number] 1{tbl} Take 1 [facility] -clavulanat 8-30 tablet by ity of e 875-125 00:00: mouth [place] mg per 00 every 12 Medical tablet (twelve) Branch hours. amoxicillin 2021-0 Yes [id number] 1{tbl} Take 1 [facility] -clavulanat 8-30 tablet by ity of e 875-125 00:00: mouth [place] mg per 00 every 12 Medical tablet (twelve) Branch hours. amoxicillin 2021-0 2021- No [id number] 1{tbl} Take 1 [facility] -clavulanat 8-30 - tablet by it y of e 875-125 00:00: 00:00 mouth [place] mg per 00 :00 every 12 Medical tablet (twelve) Branch hours. amoxicillin 2021-0 2021- No [id number] 1{tbl} Take 1 [facility] -clavulanat 8-30 11- tablet by it y of e 875-125 00:00: 00:00 mouth [place] mg per 00 :00 every 12 Medical tablet (twelve) Branch hours. permethrin Yes [id number] Apply to [facility] (ELIMITE) 5 8-23 skin and ity of % cream 00:00: leave on [place] 00 for 8 - 10 Medical hours then Branch repeat in a week permethrin 2021- No [id number] Apply to [facility] (ELIMITE) 5 8- 09-08 skin and ity of % cream 00:00: 00:00 leave on [place] 00 :00 for 8 - 10 Medical hours then Branch repeat in a week permethrin 2021- No [id number] Apply to [facility] (ELIMITE) 5 8- 09-08 skin and ity of % cream 00:00: 00:00 leave on [place] 00 :00 for 8 - 10 Medical hours then Branch repeat in a week TRAZODONE Yes [id number] TAKE 1 [facility] vers 50 mg 8-08 TABLET BY ity of tablet 00:00: MOUTH 00 EVERYDAY Medical AT BEDTIME Branch TRAZODONE 2021-0 Yes [id number] TAKE 1 [facility] vers 50 mg 8-08 TABLET BY ity of tablet 00:00: MOUTH 00 EVERYDAY Medical AT BEDTIME Branch TRAZODONE 2021-0 Yes [id number] TAKE 1 [facility] vers 50 mg 8-08 TABLET BY ity of tablet 00:00: MOUTH 00 EVERYDAY Medical AT BEDTIME Branch TRAZODONE 2021-0 Yes [id number] TAKE 1 [facility] vers 50 mg 8-08 TABLET BY ity of tablet 00:00: MOUTH 00 EVERYDAY Medical AT BEDTIME Branch TRAZODONE 2-0 Yes [id number] TAKE 1 [facility] vers 50 mg 8-08 TABLET BY ity of tablet 00:00: MOUTH 00 EVERYDAY Medical AT BEDTIME Branch TRAZODONE 2-0 Yes [id number] TAKE 1 [facility] vers 50 mg 8-08 TABLET BY ity of tablet 00:00: MOUTH 00 EVERYDAY Medical AT BEDTIME Branch TRAZODONE 2021-0 Yes [id number] TAKE 1 [facility] vers 50 mg 8-08 TABLET BY ity of tablet 00:00: MOUTH 00 EVERYDAY Medical AT BEDTIME Branch TRAZODONE 2021-0 Yes [id number] TAKE 1 [facility] vers 50 mg 8-08 TABLET BY ity of tablet 00:00: MOUTH EVERYDAY Medical AT BEDTIME Branch TRAZODONE 2022-0 Yes [id number] TAKE 1 [facility] vers 50 mg 8-08 TABLET BY ity of tablet 00:00: MOUTH EVERYDAY Medical AT BEDTIME Branch TRAZODONE 2-0 Yes [id number] TAKE 1 [facility] vers 50 mg 8-08 TABLET BY ity of tablet 00:00: MOUTH EVERYDAY Medical AT BEDTIME Branch TRAZODONE 2-0 Yes [id number] TAKE 1 [facility] vers 50 mg 8-08 TABLET BY ity of tablet 00:00: MOUTH EVERYDAY Medical AT BEDTIME Branch TRAZODONE 2-0 Yes [id number] TAKE 1 [facility] vers 50 mg 8-08 TABLET BY ity of tablet 00:00: MOUTH EVERYDAY Medical AT BEDTIME Branch TRAZODONE 2-0 Yes [id number] TAKE 1 [facility] vers 50 mg 8-08 TABLET BY ity of tablet 00:00: MOUTH EVERYDAY Medical AT BEDTIME Branch TRAZODONE 2-0 Yes [id number] TAKE 1 [facility] vers 50 mg 8-08 TABLET BY ity of tablet 00:00: MOUTH EVERYDAY Medical AT BEDTIME Branch TRAZODONE 2-0 Yes [id number] TAKE 1 [facility] vers 50 mg 8-08 TABLET BY ity of tablet 00:00: MOUTH EVERYDAY Medical AT BEDTIME Branch TRAZODONE 2-0 Yes [id number] TAKE 1 [facility] vers 50 mg 8-08 TABLET BY ity of tablet 00:00: MOUTH EVERYDAY Medical AT BEDTIME Branch TRAZODONE 2-0 Yes [id number] TAKE 1 [facility] vers 50 mg 8-08 TABLET BY ity of tablet 00:00: MOUTH EVERYDAY Medical AT BEDTIME Branch TRAZODONE 2-0 Yes [id number] TAKE 1 [facility] vers 50 mg 8-08 TABLET BY ity of tablet 00:00: MOUTH 00 EVERYDAY Medical AT BEDTIME Branch TRAZODONE 2022-0 Yes [id number] TAKE 1 [facility] vers 50 mg 8-08 TABLET BY ity of tablet 00:00: MOUTH 00 EVERYDAY Medical AT BEDTIME Branch TRAZODONE 2-0 Yes [id number] TAKE 1 [facility] vers 50 mg 8-08 TABLET BY ity of tablet 00:00: MOUTH 00 EVERYDAY Medical AT BEDTIME Branch TRAZODONE 2021-0 Yes [id number] TAKE 1 [facility] vers 50 mg 8-08 TABLET BY ity of tablet 00:00: MOUTH EVERYDAY Medical AT BEDTIME Branch TRAZODONE 2021-0 Yes [id number] TAKE 1 [facility] vers 50 mg 8-08 TABLET BY ity of tablet 00:00: MOUTH EVERYDAY Medical AT BEDTIME Branch TRAZODONE 2021-0 Yes [id number] TAKE 1 [facility] vers 50 mg 8-08 TABLET BY ity of tablet 00:00: MOUTH EVERYDAY Medical AT BEDTIME Branch TRAZODONE 2021-0 Yes [id number] TAKE 1 [facility] vers 50 mg 8-08 TABLET BY ity of tablet 00:00: MOUTH EVERYDAY Medical AT BEDTIME Branch TRAZODONE 2021-0 Yes [id number] TAKE 1 [facility] vers 50 mg 8-08 TABLET BY ity of tablet 00:00: MOUTH EVERYDAY Medical AT BEDTIME Branch TRAZODONE 2021-0 Yes [id number] TAKE 1 [facility] vers 50 mg 8-08 TABLET BY ity of tablet 00:00: MOUTH EVERYDAY Medical AT BEDTIME Branch TRAZODONE 2021-0 Yes [id number] TAKE 1 [facility] vers 50 mg 8-08 TABLET BY ity of tablet 00:00: MOUTH EVERYDAY Medical AT BEDTIME Branch TRAZODONE 2021-0 Yes [id number] TAKE 1 [facility] vers 50 mg 8-08 TABLET BY ity of tablet 00:00: MOUTH EVERYDAY Medical AT BEDTIME Branch TRAZODONE 2021-0 Yes [id number] TAKE 1 [facility] vers 50 mg 8-08 TABLET BY ity of tablet 00:00: MOUTH EVERYDAY Medical AT BEDTIME Branch TRAZODONE 2021-0 Yes [id number] TAKE 1 [facility] vers 50 mg 8-08 TABLET BY ity of tablet 00:00: MOUTH EVERYDAY Medical AT BEDTIME Branch TRAZODONE 2-0 Yes [id number] TAKE 1 [facility] vers 50 mg 8-08 TABLET BY ity of tablet 00:00: MOUTH EVERYDAY Medical AT BEDTIME Branch TRAZODONE 2-0 Yes [id number] TAKE 1 [facility] vers 50 mg 8-08 TABLET BY ity of tablet 00:00: MOUTH EVERYDAY Medical AT BEDTIME Branch TRAZODONE 2021-0 Yes [id number] TAKE 1 [facility] vers 50 mg 8-08 TABLET BY ity of tablet 00:00: MOUTH EVERYDAY Medical AT BEDTIME Branch TRAZODONE 2022-0 Yes [id number] TAKE 1 [facility] vers 50 mg 8-08 TABLET BY ity of tablet 00:00: MOUTH EVERYDAY Medical AT BEDTIME Branch TRAZODONE 2-0 Yes [id number] TAKE 1 [facility] vers 50 mg 8-08 TABLET BY ity of tablet 00:00: MOUTH EVERYDAY Medical AT BEDTIME Branch TRAZODONE 2-0 Yes [id number] TAKE 1 [facility] vers 50 mg 8-08 TABLET BY ity of tablet 00:00: MOUTH EVERYDAY Medical AT BEDTIME Branch TRAZODONE 2-0 Yes [id number] TAKE 1 [facility] vers 50 mg 8-08 TABLET BY ity of tablet 00:00: MOUTH EVERYDAY Medical AT BEDTIME Branch TRAZODONE 2-0 Yes [id number] TAKE 1 [facility] vers 50 mg 8-08 TABLET BY ity of tablet 00:00: MOUTH EVERYDAY Medical AT BEDTIME Branch TRAZODONE 2-0 Yes [id number] TAKE 1 [facility] vers 50 mg 8-08 TABLET BY ity of tablet 00:00: MOUTH EVERYDAY Medical AT BEDTIME Branch TRAZODONE 2-0 Yes [id number] TAKE 1 [facility] vers 50 mg 8-08 TABLET BY ity of tablet 00:00: MOUTH EVERYDAY Medical AT BEDTIME Branch TRAZODONE 2-0 Yes [id number] TAKE 1 [facility] vers 50 mg 8-08 TABLET BY ity of tablet 00:00: MOUTH EVERYDAY Medical AT BEDTIME Branch TRAZODONE 2-0 Yes [id number] TAKE 1 [facility] vers 50 mg 8-08 TABLET BY ity of tablet 00:00: MOUTH EVERYDAY Medical AT BEDTIME Branch TRAZODONE 2-0 Yes [id number] TAKE 1 [facility] vers 50 mg 8-08 TABLET BY ity of tablet 00:00: MOUTH 00 EVERYDAY Medical AT BEDTIME Branch TRAZODONE 2022-0 Yes [id number] TAKE 1 [facility] vers 50 mg 8-08 TABLET BY ity of tablet 00:00: MOUTH 00 EVERYDAY Medical AT BEDTIME Branch TRAZODONE 2-0 Yes [id number] TAKE 1 [facility] vers 50 mg 8-08 TABLET BY ity of tablet 00:00: MOUTH 00 EVERYDAY Medical AT BEDTIME Branch TRAZODONE 2021-0 Yes [id number] TAKE 1 [facility] vers 50 mg 8-08 TABLET BY ity of tablet 00:00: MOUTH EVERYDAY Medical AT BEDTIME Branch TRAZODONE 2021-0 Yes [id number] TAKE 1 [facility] vers 50 mg 8-08 TABLET BY ity of tablet 00:00: MOUTH EVERYDAY Medical AT BEDTIME Branch TRAZODONE 2021-0 Yes [id number] TAKE 1 [facility] vers 50 mg 8-08 TABLET BY ity of tablet 00:00: MOUTH EVERYDAY Medical AT BEDTIME Branch TRAZODONE 2021-0 Yes [id number] TAKE 1 [facility] vers 50 mg 8-08 TABLET BY ity of tablet 00:00: MOUTH EVERYDAY Medical AT BEDTIME Branch TRAZODONE 2021-0 Yes [id number] TAKE 1 [facility] vers 50 mg 8-08 TABLET BY ity of tablet 00:00: MOUTH EVERYDAY Medical AT BEDTIME Branch TRAZODONE 2021-0 Yes [id number] TAKE 1 [facility] vers 50 mg 8-08 TABLET BY ity of tablet 00:00: MOUTH EVERYDAY Medical AT BEDTIME Branch TRAZODONE 2021-0 Yes [id number] TAKE 1 [facility] vers 50 mg 8-08 TABLET BY ity of tablet 00:00: MOUTH EVERYDAY Medical AT BEDTIME Branch TRAZODONE 2021-0 Yes [id number] TAKE 1 [facility] vers 50 mg 8-08 TABLET BY ity of tablet 00:00: MOUTH EVERYDAY Medical AT BEDTIME Branch TRAZODONE 2021-0 Yes [id number] TAKE 1 [facility] vers 50 mg 8-08 TABLET BY ity of tablet 00:00: MOUTH EVERYDAY Medical AT BEDTIME Branch TRAZODONE 2021-0 Yes [id number] TAKE 1 [facility] vers 50 mg 8-08 TABLET BY ity of tablet 00:00: MOUTH EVERYDAY Medical AT BEDTIME Branch TRAZODONE 2-0 Yes [id number] TAKE 1 [facility] vers 50 mg 8-08 TABLET BY ity of tablet 00:00: MOUTH EVERYDAY Medical AT BEDTIME Branch TRAZODONE 2-0 Yes [id number] TAKE 1 [facility] vers 50 mg 8-08 TABLET BY ity of tablet 00:00: MOUTH EVERYDAY Medical AT BEDTIME Branch TRAZODONE 2021-0 Yes [id number] TAKE 1 [facility] vers 50 mg 8-08 TABLET BY ity of tablet 00:00: MOUTH EVERYDAY Medical AT BEDTIME Branch TRAZODONE 2022-0 Yes [id number] TAKE 1 [facility] vers 50 mg 8-08 TABLET BY ity of tablet 00:00: MOUTH EVERYDAY Medical AT BEDTIME Branch TRAZODONE 2-0 Yes [id number] TAKE 1 [facility] vers 50 mg 8-08 TABLET BY ity of tablet 00:00: MOUTH EVERYDAY Medical AT BEDTIME Branch TRAZODONE 2-0 Yes [id number] TAKE 1 [facility] vers 50 mg 8-08 TABLET BY ity of tablet 00:00: MOUTH EVERYDAY Medical AT BEDTIME Branch TRAZODONE 2-0 Yes [id number] TAKE 1 [facility] vers 50 mg 8-08 TABLET BY ity of tablet 00:00: MOUTH EVERYDAY Medical AT BEDTIME Branch TRAZODONE 2-0 Yes [id number] TAKE 1 [facility] vers 50 mg 8-08 TABLET BY ity of tablet 00:00: MOUTH EVERYDAY Medical AT BEDTIME Branch TRAZODONE 2-0 Yes [id number] TAKE 1 [facility] vers 50 mg 8-08 TABLET BY ity of tablet 00:00: MOUTH EVERYDAY Medical AT BEDTIME Branch TRAZODONE 2-0 Yes [id number] TAKE 1 [facility] vers 50 mg 8-08 TABLET BY ity of tablet 00:00: MOUTH EVERYDAY Medical AT BEDTIME Branch TRAZODONE 2-0 Yes [id number] TAKE 1 [facility] vers 50 mg 8-08 TABLET BY ity of tablet 00:00: MOUTH EVERYDAY Medical AT BEDTIME Branch TRAZODONE 2-0 Yes [id number] TAKE 1 [facility] vers 50 mg 8-08 TABLET BY ity of tablet 00:00: MOUTH EVERYDAY Medical AT BEDTIME Branch TRAZODONE 2-0 Yes [id number] TAKE 1 [facility] vers 50 mg 8-08 TABLET BY ity of tablet 00:00: MOUTH 00 EVERYDAY Medical AT BEDTIME Branch TRAZODONE 2022-0 Yes [id number] TAKE 1 [facility] vers 50 mg 8-08 TABLET BY ity of tablet 00:00: MOUTH 00 EVERYDAY Medical AT BEDTIME Branch TRAZODONE 2-0 Yes [id number] TAKE 1 [facility] vers 50 mg 8-08 TABLET BY ity of tablet 00:00: MOUTH 00 EVERYDAY Medical AT BEDTIME Branch TRAZODONE 2021-0 Yes [id number] TAKE 1 [facility] vers 50 mg 8-08 TABLET BY ity of tablet 00:00: MOUTH EVERYDAY Medical AT BEDTIME Branch TRAZODONE 2021-0 Yes [id number] TAKE 1 [facility] vers 50 mg 8-08 TABLET BY ity of tablet 00:00: MOUTH EVERYDAY Medical AT BEDTIME Branch TRAZODONE 2021-0 Yes [id number] TAKE 1 [facility] vers 50 mg 8-08 TABLET BY ity of tablet 00:00: MOUTH EVERYDAY Medical AT BEDTIME Branch TRAZODONE 2021-0 Yes [id number] TAKE 1 [facility] vers 50 mg 8-08 TABLET BY ity of tablet 00:00: MOUTH EVERYDAY Medical AT BEDTIME Branch TRAZODONE 2021-0 Yes [id number] TAKE 1 [facility] vers 50 mg 8-08 TABLET BY ity of tablet 00:00: MOUTH EVERYDAY Medical AT BEDTIME Branch TRAZODONE 2021-0 Yes [id number] TAKE 1 [facility] vers 50 mg 8-08 TABLET BY ity of tablet 00:00: MOUTH EVERYDAY Medical AT BEDTIME Branch TRAZODONE 2021-0 Yes [id number] TAKE 1 [facility] vers 50 mg 8-08 TABLET BY ity of tablet 00:00: MOUTH EVERYDAY Medical AT BEDTIME Branch TRAZODONE 2021-0 Yes [id number] TAKE 1 [facility] vers 50 mg 8-08 TABLET BY ity of tablet 00:00: MOUTH EVERYDAY Medical AT BEDTIME Branch TRAZODONE 2021-0 Yes [id number] TAKE 1 [facility] vers 50 mg 8-08 TABLET BY ity of tablet 00:00: MOUTH EVERYDAY Medical AT BEDTIME Branch TRAZODONE 2021-0 Yes [id number] TAKE 1 [facility] vers 50 mg 8-08 TABLET BY ity of tablet 00:00: MOUTH EVERYDAY Medical AT BEDTIME Branch TRAZODONE 2-0 Yes [id number] TAKE 1 [facility] vers 50 mg 8-08 TABLET BY ity of tablet 00:00: MOUTH EVERYDAY Medical AT BEDTIME Branch TRAZODONE 2-0 Yes [id number] TAKE 1 [facility] vers 50 mg 8-08 TABLET BY ity of tablet 00:00: MOUTH EVERYDAY Medical AT BEDTIME Branch TRAZODONE 2021-0 Yes [id number] TAKE 1 [facility] vers 50 mg 8-08 TABLET BY ity of tablet 00:00: MOUTH [place] 00 EVERYDAY Medical AT BEDTIME Branch TRAZODONE 2022-0 Yes [id number] TAKE 1 [facility] vers 50 mg 8-08 TABLET BY ity of tablet 00:00: MOUTH [place] 00 EVERYDAY Medical AT BEDTIME Branch TRAZODONE 2-0 Yes [id number] TAKE 1 [facility] vers 50 mg 8-08 TABLET BY ity of tablet 00:00: MOUTH [place] 00 EVERYDAY Medical AT BEDTIME Branch TRAZODONE 2-0 Yes [id number] TAKE 1 [facility] vers 50 mg 8-08 TABLET BY ity of tablet 00:00: MOUTH [place] 00 EVERYDAY Medical AT BEDTIME Branch TRAZODONE 2-0 Yes [id number] TAKE 1 [facility] vers 50 mg 8-08 TABLET BY ity of tablet 00:00: MOUTH [place] 00 EVERYDAY Medical AT BEDTIME Branch TRAZODONE 2-0 Yes [id number] TAKE 1 [facility] vers 50 mg 8-08 TABLET BY ity of tablet 00:00: [facility] 00 EVERYDAY Medical AT BEDTIME Branch clonazePAM 2022-0 Yes [id number] 1mg Take 1 [facility] 1 mg tablet 7-13 tablet by ity of 00:00: mouth in [place] the Medical morning Branch and 1 tablet at noon and 1 tablet in the evening. clonazePAM 2022-0 Yes [id number] 1mg Take 1 [facility] 1 mg tablet 7-13 tablet by ity of 00:00: mouth in [place] the Medical morning Branch and 1 tablet at noon and 1 tablet in the evening. clonazePAM 2022-0 Yes [id number] 1mg Take 1 [facility] 1 mg tablet 7-13 tablet by ity of 00:00: mouth in [place] the Medical morning Branch and 1 tablet at noon and 1 tablet in the evening. clonazePAM 2022-0 Yes [id number] 1mg Take 1 [facility] 1 mg tablet 7-13 tablet by ity of 00:00: mouth in [place] 00 the Medical morning Branch and 1 tablet at noon and 1 tablet in the evening. clonazePAM 2022-0 Yes [id number] 1mg Take 1 [facility] 1 mg tablet 7-13 tablet by ity of 00:00: mouth in [place] [address] the Medical morning Branch and 1 tablet at noon and 1 tablet in the evening. clonazePAM 2022-0 Yes [id number] 1mg Take 1 [facility] 1 mg tablet 7-13 tablet by ity of 00:00: mouth in [place] [address] the Medical morning Branch and 1 tablet at noon and 1 tablet in the evening. clonazePAM 2022-0 Yes [id number] 1mg Take 1 [facility] 1 mg tablet 7-13 tablet by ity of 00:00: mouth in [address] morning [place] and 1 tablet at noon and 1 tablet in the evening. clonazePAM 2022-0 Yes [id number] 1mg Take 1 [facility] 1 mg tablet 7-13 tablet by ity of 00:00: mouth in [address] Medical morning [place] and 1 tablet at noon and 1 tablet in the evening. clonazePAM 2022-0 Yes [id number] 1mg Take 1 [facility] 1 mg tablet 7-13 tablet by ity of 00:00: mouth in [address] morning [place] and 1 tablet at noon and 1 tablet in the evening. clonazePAM 2022-0 Yes [id number] 1mg Take 1 [facility] 1 mg tablet 7-13 tablet by ity of 00:00: mouth in [address] morning [place] and 1 tablet at noon and 1 tablet in the evening. clonazePAM 2022-0 Yes [id number] 1mg Take 1 [facility] 1 mg tablet 7-13 tablet by ity of 00:00: mouth in [address] morning [place] and 1 tablet at noon and 1 tablet in the evening. clonazePAM 2022-0 Yes [id number] 1mg Take 1 [facility] 1 mg tablet 7-13 tablet by ity of 00:00: mouth in [address] morning [place] and 1 tablet at noon and 1 tablet in the evening. clonazePAM 2022-0 Yes [id number] 1mg Take 1 [facility] 1 mg tablet 7-13 tablet by ity of 00:00: mouth in [address] morning [place] and 1 tablet at noon and 1 tablet in the evening. clonazePAM 2022-0 Yes [id number] 1mg Take 1 [facility] 1 mg tablet 7-13 tablet by ity of 00:00: mouth in [address] morning [place] and 1 tablet at noon and 1 tablet in the evening. clonazePAM 2022-0 Yes [id number] 1mg Take 1 [facility] 1 mg tablet 7-13 tablet by ity of 00:00: mouth in [address] morning [place] and 1 tablet at noon and 1 tablet in the evening. clonazePAM 2022-0 Yes [id number] 1mg Take 1 [facility] 1 mg tablet 7-13 tablet by ity of 00:00: mouth in [place] 00 the Medical morning Branch and 1 tablet at noon and 1 tablet in the evening. clonazePAM 2-0 Yes [id number] 1mg Take 1 [facility] 1 mg tablet 7-13 tablet by ity of 00:00: mouth in [place] 00 the Medical morning Branch and 1 tablet at noon and 1 tablet in the evening. clonazePAM 2-0 Yes [id number] 1mg Take 1 [facility] 1 mg tablet 7-13 tablet by ity of 00:00: mouth in [place] 00 the Medical morning Branch and 1 tablet at noon and 1 tablet in the evening. clonazePAM 2-0 2- No [id number] 1mg Take 1 [facility] 1 mg tablet 7-13 - tablet by it y of 00:00: 00:00 mouth in [place] 00 :00 the Medical morning Branch and 1 tablet at noon and 1 tablet in the evening. clonazePAM 2021-0 2- No [id number] 1mg Take 1 [facility] 1 mg tablet 7-13 01-27 tablet by it y of 00:00: 00:00 mouth in [place] 00 :00 the Medical morning Branch and 1 tablet at noon and 1 tablet in the evening. ZONISAMIDE 2-0 Yes [id number] TAKE 1 [facility] 100 mg 7-12 CAPSULE BY ity of capsule 00:00: MOUTH [place] 00 TWICE A Medical DAY Branch ZONISAMIDE 2022-0 Yes [id number] TAKE 1 [facility] 100 mg 7-12 CAPSULE BY ity of capsule 00:00: MOUTH [place] 00 TWICE A Medical DAY Branch ZONISAMIDE 2022-0 Yes [id number] TAKE 1 [facility] 100 mg 7-12 CAPSULE BY ity of capsule 00:00: MOUTH [place] 00 TWICE A Medical DAY Branch ZONISAMIDE 2022-0 Yes [id number] TAKE 1 [facility] 100 mg 7-12 CAPSULE BY ity of capsule 00:00: MOUTH [place] 00 TWICE A Medical DAY Branch ZONISAMIDE 2022-0 Yes [id number] TAKE 1 [facility] 100 mg 7-12 CAPSULE BY ity of capsule 00:00: MOUTH [place] 00 TWICE A Medical DAY Branch ZONISAMIDE 2022-0 Yes [id number] TAKE 1 [facility] 100 mg 7-12 CAPSULE BY ity of capsule 00:00: MOUTH 00 TWICE A Medical DAY Branch ZONISAMIDE 2021-0 Yes [id number] TAKE 1 [facility] 100 mg 7-12 CAPSULE BY ity of capsule 00:00: MOUTH TWICE A Medical DAY Branch ZONISAMIDE 2021-0 Yes [id number] TAKE 1 [facility] 100 mg 7-12 CAPSULE BY ity of capsule 00:00: MOUTH TWICE A Medical DAY Branch ZONISAMIDE 2021-0 Yes [id number] TAKE 1 [facility] 100 mg 7-12 CAPSULE BY ity of capsule 00:00: MOUTH TWICE A Medical DAY Branch ZONISAMIDE 2021-0 Yes [id number] TAKE 1 [facility] 100 mg 7-12 CAPSULE BY ity of capsule 00:00: MOUTH TWICE A Medical DAY Branch ZONISAMIDE 2021-0 Yes [id number] TAKE 1 [facility] 100 mg 7-12 CAPSULE BY ity of capsule 00:00: MOUTH TWICE A Medical DAY Branch ZONISAMIDE 2021-0 Yes [id number] TAKE 1 [facility] 100 mg 7-12 CAPSULE BY ity of capsule 00:00: MOUTH TWICE A Medical DAY Branch ZONISAMIDE 2021-0 Yes [id number] TAKE 1 [facility] 100 mg 7-12 CAPSULE BY ity of capsule 00:00: MOUTH TWICE A Medical DAY Branch ZONISAMIDE 2021-0 Yes [id number] TAKE 1 [facility] 100 mg 7-12 CAPSULE BY ity of capsule 00:00: MOUTH TWICE A Medical DAY Branch ZONISAMIDE 2021-0 Yes [id number] TAKE 1 [facility] 100 mg 7-12 CAPSULE BY ity of capsule 00:00: MOUTH TWICE A Medical DAY Branch ZONISAMIDE 2021-0 Yes [id number] TAKE 1 [facility] 100 mg 7-12 CAPSULE BY ity of capsule 00:00: MOUTH TWICE A Medical DAY Branch ZONISAMIDE 2021-0 Yes [id number] TAKE 1 [facility] 100 mg 7-12 CAPSULE BY ity of capsule 00:00: MOUTH TWICE A Medical DAY Branch ZONISAMIDE 2021-0 Yes [id number] TAKE 1 [facility] 100 mg 7-12 CAPSULE BY ity of capsule 00:00: MOUTH TWICE A Medical DAY Branch ZONISAMIDE 2021-0 Yes [id number] TAKE 1 [facility] 100 mg 7-12 CAPSULE BY ity of capsule 00:00: MOUTH [place] 00 TWICE A Medical DAY Branch ZONISAMIDE 2021-0 Yes [id number] TAKE 1 [facility] 100 mg 7-12 CAPSULE BY ity of capsule 00:00: MOUTH TWICE A Medical DAY Branch ZONISAMIDE 2021-0 Yes [id number] TAKE 1 [facility] 100 mg 7-12 CAPSULE BY ity of capsule 00:00: MOUTH TWICE A Medical DAY Branch ZONISAMIDE 2021-0 Yes [id number] TAKE 1 [facility] 100 mg 7-12 CAPSULE BY ity of capsule 00:00: MOUTH TWICE A Medical DAY Branch ZONISAMIDE 2021-0 Yes [id number] TAKE 1 [facility] 100 mg 7-12 CAPSULE BY ity of capsule 00:00: MOUTH TWICE A Medical DAY Branch ZONISAMIDE 2021-0 Yes [id number] TAKE 1 [facility] 100 mg 7-12 CAPSULE BY ity of capsule 00:00: MOUTH TWICE A Medical DAY Branch ZONISAMIDE 2021-0 Yes [id number] TAKE 1 [facility] 100 mg 7-12 CAPSULE BY ity of capsule 00:00: MOUTH TWICE A Medical DAY Branch ZONISAMIDE 2021-0 Yes [id number] TAKE 1 [facility] 100 mg 7-12 CAPSULE BY ity of capsule 00:00: MOUTH TWICE A Medical DAY Branch ZONISAMIDE 2021-0 Yes [id number] TAKE 1 [facility] 100 mg 7-12 CAPSULE BY ity of capsule 00:00: MOUTH TWICE A Medical DAY Branch ZONISAMIDE 2021-0 Yes [id number] TAKE 1 [facility] 100 mg 7-12 CAPSULE BY ity of capsule 00:00: MOUTH TWICE A Medical DAY Branch ZONISAMIDE 2021-0 Yes [id number] TAKE 1 [facility] 100 mg 7-12 CAPSULE BY ity of capsule 00:00: MOUTH TWICE A Medical DAY Branch ZONISAMIDE 2021-0 Yes [id number] TAKE 1 [facility] 100 mg 7-12 CAPSULE BY ity of capsule 00:00: MOUTH TWICE A Medical DAY Branch ZONISAMIDE 2021-0 Yes [id number] TAKE 1 [facility] 100 mg 7-12 CAPSULE BY ity of capsule 00:00: MOUTH TWICE A Medical DAY Branch ZONISAMIDE 2021-0 2022- No [id number] TAKE 1 [facility] 100 mg 10-0727 CAPSULE BY ity of capsule 00:00: 00:00 MOUTH [place] 00 :00 TWICE A Medical DAY [place] SYNTHROID Yes [id number] TAKE 1 U nivers 150 mcg 7-08 TABLET BY ity of tablet 00:00: MOUTH [place] 00 EVERY DAY Medical IN THE [facility] SYNTHROID Yes [id number] TAKE 1 U nivers 150 mcg 7-08 TABLET BY ity of tablet 00:00: MOUTH [place] 00 EVERY DAY Medical IN THE [facility] SYNTHROID Yes [id number] TAKE 1 U nivers 150 mcg 7-08 TABLET BY ity of tablet 00:00: MOUTH [place] 00 EVERY DAY Medical IN THE [facility] SYNTHROID Yes [id number] TAKE 1 U nivers 150 mcg 7-08 TABLET BY ity of tablet 00:00: MOUTH [place] 00 EVERY DAY Medical IN THE [facility] SYNTHROID Yes [id number] TAKE 1 U nivers 150 mcg 7-08 TABLET BY ity of tablet 00:00: MOUTH [place] 00 EVERY DAY Medical IN THE [facility] SYNTHROID Yes [id number] TAKE 1 U nivers 150 mcg 7-08 TABLET BY ity of tablet 00:00: MOUTH [place] 00 EVERY DAY Medical IN THE [facility] SYNTHROID Yes [id number] TAKE 1 U nivers 150 mcg 7-08 TABLET BY ity of tablet 00:00: MOUTH [place] 00 EVERY DAY Medical IN THE [facility] SYNTHROID Yes [id number] TAKE 1 U nivers 150 mcg 7-08 TABLET BY ity of tablet 00:00: MOUTH [place] 00 EVERY DAY Medical IN THE [facility] SYNTHROID 0 Yes [id number] TAKE 1 U nivers 150 mcg 7-08 TABLET BY ity of tablet 00:00: MOUTH [place] 00 EVERY DAY Medical IN THE [facility] SYNTHROID 0 Yes [id number] TAKE 1 U nivers 150 mcg 7-08 TABLET BY ity of tablet 00:00: MOUTH [place] 00 EVERY DAY Medical IN THE [facility] SYNTHROID Yes [id number] TAKE 1 U nivers 150 mcg 7-08 TABLET BY ity of tablet 00:00: MOUTH [place] 00 EVERY DAY Medical IN THE [facility] SYNTHROID Yes [id number] TAKE 1 U nivers 150 mcg 7-08 TABLET BY ity of tablet 00:00: MOUTH [place] 00 EVERY DAY Medical IN THE [place] MORNING SYNTHROID 0 Yes [id number] TAKE 1 U nivers 150 mcg 7-08 TABLET BY ity of tablet 00:00: MOUTH [place] 00 EVERY DAY Medical IN THE [facility] SYNTHROID 0 Yes [id number] TAKE 1 U nivers 150 mcg 7-08 TABLET BY ity of tablet 00:00: MOUTH [place] 00 EVERY DAY Medical IN THE [facility] SYNTHROID Yes [id number] TAKE 1 U nivers 150 mcg 7-08 TABLET BY ity of tablet 00:00: MOUTH [place] 00 EVERY DAY Medical IN THE [facility] SYNTHROID Yes [id number] TAKE 1 U nivers 150 mcg 7-08 TABLET BY ity of tablet 00:00: MOUTH [place] 00 EVERY DAY Medical IN THE [facility] SYNTHROID Yes [id number] TAKE 1 U nivers 150 mcg 7-08 TABLET BY ity of tablet 00:00: MOUTH [place] 00 EVERY DAY Medical IN THE [facility] SYNTHROID Yes [id number] TAKE 1 U nivers 150 mcg 7-08 TABLET BY ity of tablet 00:00: MOUTH [place] 00 EVERY DAY Medical IN THE [facility] SYNTHROID Yes [id number] TAKE 1 U nivers 150 mcg 7-08 TABLET BY ity of tablet 00:00: MOUTH [place] 00 EVERY DAY Medical IN THE [facility] SYNTHROID Yes [id number] TAKE 1 U nivers 150 mcg 7-08 TABLET BY ity of tablet 00:00: MOUTH [place] 00 EVERY DAY Medical IN THE [facility] SYNTHROID 0 Yes [id number] TAKE 1 U nivers 150 mcg 7-08 TABLET BY ity of tablet 00:00: MOUTH [place] 00 EVERY DAY Medical IN THE [facility] SYNTHROID 0 Yes [id number] TAKE 1 U nivers 150 mcg 7-08 TABLET BY ity of tablet 00:00: MOUTH [place] 00 EVERY DAY Medical IN THE [facility] SYNTHROID 0 Yes [id number] TAKE 1 U nivers 150 mcg 7-08 TABLET BY ity of tablet 00:00: MOUTH [place] 00 EVERY DAY Medical IN THE [facility] SYNTHROID Yes [id number] TAKE 1 U nivers 150 mcg 7-08 TABLET BY ity of tablet 00:00: MOUTH [place] 00 EVERY DAY Medical IN [facility] SYNTHROID Yes [id number] TAKE 1 U nivers 150 mcg 7-08 TABLET BY ity of tablet 00:00: MOUTH [place] 00 EVERY DAY Medical IN THE [facility] SYNTHROID Yes [id number] TAKE 1 U nivers 150 mcg 7-08 TABLET BY ity of tablet 00:00: MOUTH [place] 00 EVERY DAY Medical IN THE [facility] SYNTHROID Yes [id number] TAKE 1 U nivers 150 mcg 7-08 TABLET BY ity of tablet 00:00: MOUTH [place] 00 EVERY DAY Medical IN THE [facility] SYNTHROID Yes [id number] TAKE 1 U nivers 150 mcg 7-08 TABLET BY ity of tablet 00:00: MOUTH [place] 00 EVERY DAY Medical IN THE [facility] SYNTHROID Yes [id number] TAKE 1 U nivers 150 mcg 7-08 TABLET BY ity of tablet 00:00: MOUTH [place] 00 EVERY DAY Medical IN THE [facility] SYNTHROID Yes [id number] TAKE 1 U nivers 150 mcg 7-08 TABLET BY ity of tablet 00:00: MOUTH [place] 00 EVERY DAY Medical IN THE [facility] SYNTHROID Yes [id number] TAKE 1 U nivers 150 mcg 7-08 TABLET BY ity of tablet 00:00: MOUTH [place] 00 EVERY DAY Medical IN THE [facility] SYNTHROID Yes [id number] TAKE 1 U nivers 150 mcg 7-08 TABLET BY ity of tablet 00:00: MOUTH [place] 00 EVERY DAY Medical IN THE [facility] SYNTHROID 2022- No [id number] TAKE 1 Univers 150 mcg 7-08 03-30 TABLET BY ity of tablet 00:00: 00:00 MOUTH [place] 00 :00 EVERY DAY Medical IN THE [facility] SERTRALINE 0 Yes [id number] TAKE 1 Univers 100 mg 6-17 TABLET BY ity of tablet 00:00: MOUTH [place] 00 EVERY DAY [facility] SERTRALINE 0 Yes [id number] TAKE 1 Univers 100 mg 6-17 TABLET BY ity of tablet 00:00: MOUTH [place] 00 EVERY DAY Medical [place] SERTRALINE 0 Yes [id number] TAKE 1 Univers 100 mg 6-17 TABLET BY ity of tablet 00:00: MOUTH [place] 00 EVERY DAY Medical Branch SERTRALINE 2-0 Yes [id number] TAKE 1 Univers 100 mg 6-17 TABLET BY ity of tablet 00:00: MOUTH 00 EVERY DAY Medical Branch SERTRALINE 2-0 Yes [id number] TAKE 1 [facility] 100 mg 6-17 TABLET BY ity of tablet 00:00: MOUTH 00 EVERY DAY Medical Branch SERTRALINE 2-0 Yes [id number] TAKE 1 [facility] 100 mg 6-17 TABLET BY ity of tablet 00:00: MOUTH 00 EVERY DAY Medical Branch SERTRALINE 2-0 Yes [id number] TAKE 1 [facility] 100 mg 6-17 TABLET BY ity of tablet 00:00: MOUTH EVERY DAY Medical Branch SERTRALINE 2021-0 Yes [id number] TAKE 1 [facility] 100 mg 6-17 TABLET BY ity of tablet 00:00: MOUTH EVERY DAY Medical Branch SERTRALINE 2021-0 Yes [id number] TAKE 1 [facility] 100 mg 6-17 TABLET BY ity of tablet 00:00: MOUTH EVERY DAY Medical Branch SERTRALINE 2021-0 Yes [id number] TAKE 1 [facility] 100 mg 6-17 TABLET BY ity of tablet 00:00: MOUTH 00 EVERY DAY Medical Branch SERTRALINE 2021-0 Yes [id number] TAKE 1 [facility] 100 mg 6-17 TABLET BY ity of tablet 00:00: MOUTH 00 EVERY DAY Medical Branch SERTRALINE 2-0 Yes [id number] TAKE 1 [facility] 100 mg 6-17 TABLET BY ity of tablet 00:00: MOUTH EVERY DAY Medical Branch SERTRALINE 2-0 Yes [id number] TAKE 1 [facility] 100 mg 6-17 TABLET BY ity of tablet 00:00: MOUTH 00 EVERY DAY Medical Branch SERTRALINE 2-0 Yes [id number] TAKE 1 [facility] 100 mg 6-17 TABLET BY ity of tablet 00:00: MOUTH EVERY DAY Medical Branch SERTRALINE 2-0 Yes [id number] TAKE 1 [facility] 100 mg 6-17 TABLET BY ity of tablet 00:00: MOUTH EVERY DAY Medical Branch SERTRALINE 2-0 Yes [id number] TAKE 1 [facility] 100 mg 6-17 TABLET BY ity of tablet 00:00: MOUTH 00 EVERY DAY Medical Branch SERTRALINE 2022-0 Yes [id number] TAKE 1 [facility] 100 mg 6-17 TABLET BY ity of tablet 00:00: MOUTH [place] 00 EVERY DAY Medical Branch SERTRALINE 2021-0 Yes [id number] TAKE 1 [facility] 100 mg 6-17 TABLET BY ity of tablet 00:00: MOUTH [place] 00 EVERY DAY Medical Branch SERTRALINE 2021-0 Yes [id number] TAKE 1 [facility] 100 mg 6-17 TABLET BY ity of tablet 00:00: MOUTH [place] 00 EVERY DAY Medical Branch SERTRALINE 2021-0 Yes [id number] TAKE 1 [facility] 100 mg 6-17 TABLET BY ity of tablet 00:00: MOUTH [place] 00 EVERY DAY Medical Branch SERTRALINE 0 Yes [id number] TAKE 1 [facility] 100 mg 6-17 TABLET BY ity of tablet 00:00: MOUTH [place] 00 DAY Medical Branch SERTRALINE 0 Yes [id number] TAKE 1 [facility] 100 mg 6-17 TABLET BY ity of tablet 00:00: MOUTH [place] 00 DAY Medical Branch SERTRALINE 2021-0 2021- No [id number] TAKE 1 [facility] 100 mg 6-17 12-13 TABLET BY ity of tablet 00:00: 00:00 MOUTH [place] 00 :00 EVERY DAY Medical Branch acetaminoph Yes Take by Uni vers en (TYLENOL 2-10 mouth. ity of ORAL) 15:18: [address] acetaminoph Yes Take by Uni vers en (TYLENOL 2-10 mouth. ity of ORAL) 15:18: [address] acetaminoph Yes Take by Uni vers en (TYLENOL 2-10 mouth. ity of ORAL) 15:18: [address] Branch acetaminoph Yes Take by Uni vers en (TYLENOL 2-10 mouth. ity of ORAL) 15:18: [address] acetaminoph Yes Take by Uni vers en (TYLENOL 2-10 mouth. ity of ORAL) 15:18: [address] acetaminoph Yes Take by Uni vers en (TYLENOL 2-10 mouth. ity of ORAL) 15:18: [address] acetaminoph Yes Take by Uni vers en (TYLENOL 2-10 mouth. ity of ORAL) 15:18: [address] acetaminoph Yes Take by Uni vers en (TYLENOL 2-10 mouth. ity of ORAL) 15:18: [address] acetaminoph Yes Take by Uni vers en (TYLENOL 2-10 mouth. ity of ORAL) 15:18: [address] acetaminoph Yes Take by Uni vers en (TYLENOL 2-10 mouth. ity of ORAL) 15:18: [address] acetaminoph Yes Take by Uni vers en (TYLENOL 2-10 mouth. ity of ORAL) 15:18: [address] acetaminoph Yes Take by Uni vers en (TYLENOL 2-10 mouth. ity of ORAL) 15:18: [address] acetaminoph Yes Take by Uni vers en (TYLENOL 2-10 mouth. ity of ORAL) 15:18: [address] acetaminoph Yes Take by Uni vers en (TYLENOL 2-10 mouth. ity of ORAL) 15:18: [address] acetaminoph Yes Take by Uni vers en (TYLENOL 2-10 mouth. ity of ORAL) 15:18: [address] acetaminoph Yes Take by [facility] vers en (TYLENOL 2-10 mouth. ity of ORAL) 15:18: [address] acetaminoph Yes Take by Uni vers en (TYLENOL 2-10 mouth. ity of ORAL) 15:18: [address] acetaminoph Yes Take by Uni vers en (TYLENOL 2-10 mouth. ity of ORAL) 15:18: [address] acetaminoph Yes Take by [facility] vers en (TYLENOL 2-10 mouth. ity of ORAL) 15:18: [address] acetaminoph Yes Take by Uni vers en (TYLENOL 2-10 mouth. ity of ORAL) 15:18: [address] acetaminoph Yes Take by Uni vers en (TYLENOL 2-10 mouth. ity of ORAL) 15:18: [address] acetaminoph Yes Take by Uni vers en (TYLENOL 2-10 mouth. ity of ORAL) 15:18: [address] Branch acetaminoph 0 Yes Take by Uni vers en (TYLENOL 2-10 mouth. ity of ORAL) 15:18: [address] acetaminoph 0 Yes Take by Uni vers en (TYLENOL 2-10 mouth. ity of ORAL) 15:18: [address] acetaminoph Yes Take by Uni vers en (TYLENOL 2-10 mouth. ity of ORAL) 15:18: [address] acetaminoph Yes Take by Uni vers en (TYLENOL 2-10 mouth. ity of ORAL) 15:18: [address] acetaminoph 0 Yes Take by Uni vers en (TYLENOL 2-10 mouth. ity of ORAL) 15:18: [address] acetaminoph Yes Take by Uni vers en (TYLENOL 2-10 mouth. ity of ORAL) 15:18: [address] acetaminoph Yes Take by Uni vers en (TYLENOL 2-10 mouth. ity of ORAL) 15:18: [address] acetaminoph Yes Take by Uni vers en (TYLENOL 2-10 mouth. ity of ORAL) 15:18: [address] acetaminoph Yes Take by [facility] vers en (TYLENOL 2-10 mouth. ity of ORAL) 15:18: [address] acetaminoph Yes Take by Uni vers en (TYLENOL 2-10 mouth. ity of ORAL) 15:18: [address] acetaminoph Yes Take by Uni vers en (TYLENOL 2-10 mouth. ity of ORAL) 15:18: [address] acetaminoph Yes Take by Uni vers en (TYLENOL 2-10 mouth. ity of ORAL) 15:18: [address] acetaminoph Yes Take by Uni vers en (TYLENOL 2-10 mouth. ity of ORAL) 15:18: [address] acetaminoph Yes Take by Uni vers en (TYLENOL 2-10 mouth. ity of ORAL) 15:18: [address] acetaminoph 2022-0 Yes Take by Uni vers en (TYLENOL 2-10 mouth. ity of ORAL) 15:18: [address] Branch acetaminoph 0 Yes Take by Uni vers en (TYLENOL 2-10 mouth. ity of ORAL) 15:18: [address] acetaminoph 0 Yes Take by Uni vers en (TYLENOL 2-10 mouth. ity of ORAL) 15:18: [address] acetaminoph 0 Yes Take by Uni vers en (TYLENOL 2-10 mouth. ity of ORAL) 15:18: [address] Branch acetaminoph 0 Yes Take by Uni vers en (TYLENOL 2-10 mouth. ity of ORAL) 15:18: [address] acetaminoph 0 Yes Take by Uni vers en (TYLENOL 2-10 mouth. ity of ORAL) 15:18: [address] acetaminoph Yes Take by Uni vers en (TYLENOL 2-10 mouth. ity of ORAL) 15:18: [address] acetaminoph Yes Take by Uni vers en (TYLENOL 2-10 mouth. ity of ORAL) 15:18: [address] acetaminoph Yes Take by Uni vers en (TYLENOL 2-10 mouth. ity of ORAL) 15:18: [address] acetaminoph Yes Take by Uni vers en (TYLENOL 2-10 mouth. ity of ORAL) 15:18: [address] acetaminoph Yes Take by Uni vers en (TYLENOL 2-10 mouth. ity of ORAL) 15:18: [address] acetaminoph Yes Take by Uni vers en (TYLENOL 2-10 mouth. ity of ORAL) 15:18: [address] acetaminoph Yes Take by Uni vers en (TYLENOL 2-10 mouth. ity of ORAL) 15:18: [address] acetaminoph 0 Yes Take by Uni vers en (TYLENOL 2-10 mouth. ity of ORAL) 15:18: [address] acetaminoph Yes Take by Uni vers en (TYLENOL 2-10 mouth. ity of ORAL) 15:18: [address] acetaminoph 0 Yes Take by Uni vers en (TYLENOL 2-10 mouth. ity of ORAL) 15:18: [address] Branch acetaminoph 0 Yes Take by Uni vers en (TYLENOL 2-10 mouth. ity of ORAL) 15:18: [address] acetaminoph 0 Yes Take by Uni vers en (TYLENOL 2-10 mouth. ity of ORAL) 15:18: [address] acetaminoph 0 Yes Take by Uni vers en (TYLENOL 2-10 mouth. ity of ORAL) 15:18: [address] acetaminoph 0 Yes Take by Uni vers en (TYLENOL 2-10 mouth. ity of ORAL) 15:18: [address] acetaminoph Yes Take by Uni vers en (TYLENOL 2-10 mouth. ity of ORAL) 15:18: [address] Branch acetaminoph Yes Take by Uni vers en (TYLENOL 2-10 mouth. ity of ORAL) 15:18: [address] acetaminoph Yes Take by Uni vers en (TYLENOL 2-10 mouth. ity of ORAL) 15:18: [address] acetaminoph Yes Take by Uni vers en (TYLENOL 2-10 mouth. ity of ORAL) 15:18: [address] acetaminoph Yes Take by Uni vers en (TYLENOL 2-10 mouth. ity of ORAL) 15:18: [address] acetaminoph Yes Take by Uni vers en (TYLENOL 2-10 mouth. ity of ORAL) 15:18: [address] acetaminoph Yes Take by Uni vers en (TYLENOL 2-10 mouth. ity of ORAL) 15:18: [address] acetaminoph Yes Take by Uni vers en (TYLENOL 2-10 mouth. ity of ORAL) 15:18: [address] acetaminoph Yes Take by Uni vers en (TYLENOL 2-10 mouth. ity of ORAL) 15:18: [address] acetaminoph Yes Take by Uni vers en (TYLENOL 2-10 mouth. ity of ORAL) 15:18: [address] acetaminoph 0 Yes Take by Uni vers en (TYLENOL 2-10 mouth. ity of ORAL) 15:18: [address] acetaminoph 0 Yes Take by Uni vers en (TYLENOL 2-10 mouth. ity of ORAL) 15:18: [address] acetaminoph 0 Yes Take by Uni vers en (TYLENOL 2-10 mouth. ity of ORAL) 15:18: [address] acetaminoph 0 Yes Take by Uni vers en (TYLENOL 2-10 mouth. ity of ORAL) 15:18: [address] acetaminoph 0 Yes Take by Uni vers en (TYLENOL 2-10 mouth. ity of ORAL) 15:18: [address] acetaminoph 0 Yes Take by Uni vers en (TYLENOL 2-10 mouth. ity of ORAL) 15:18: [address] acetaminoph Yes Take by Uni vers en (TYLENOL 2-10 mouth. ity of ORAL) 15:18: [address] acetaminoph Yes Take by Uni vers en (TYLENOL 2-10 mouth. ity of ORAL) 15:18: [address] acetaminoph Yes Take by Uni vers en (TYLENOL 2-10 mouth. ity of ORAL) 15:18: [address] acetaminoph Yes Take by Uni vers en (TYLENOL 2-10 mouth. ity of ORAL) 15:18: [address] acetaminoph Yes Take by Uni vers en (TYLENOL 2-10 mouth. ity of ORAL) 15:18: [address] acetaminoph 0 Yes Take by Uni vers en (TYLENOL 2-10 mouth. ity of ORAL) 15:18: [address] acetaminoph 0 Yes Take by Uni vers en (TYLENOL 2-10 mouth. ity of ORAL) 15:18: [address] acetaminoph 0 Yes Take by Uni vers en (TYLENOL 2-10 mouth. ity of ORAL) 15:18: [address] acetaminoph 0 Yes Take by Uni vers en (TYLENOL 2-10 mouth. ity of ORAL) 15:18: [address] acetaminoph Yes Take by Uni vers en (TYLENOL 2-10 mouth. ity of ORAL) 15:18: [address] [facility] Take by Uni vers en (TYLENOL 2-10 mouth. ity of ORAL) 15:18: [address] [facility] Yes Take by Uni vers en (TYLENOL 2-10 mouth. ity of ORAL) 15:18: [address] acetaminoph Yes Take by Uni vers en (TYLENOL 2-10 mouth. ity of ORAL) 15:18: [address] [facility] Yes Take by Uni vers en (TYLENOL 2-10 mouth. ity of ORAL) 15:18: [address] [facility] Take by Uni vers en (TYLENOL 2-10 mouth. ity of ORAL) 15:18: [address] [facility] Yes Take by Uni vers en (TYLENOL 2-10 mouth. ity of ORAL) 15:18: [address] proMETHazin 2020-03 Yes Insert 1 Un [place] e 25 mg 2-03 suppositor ity of suppository 00:00: y rectally [place] at Medical bedtime, Branch do not use within 6 hours of taking reglan. proMETHazin 2020-03 Yes Insert 1 [facility] [place] 25 mg 2-03 suppositor ity of suppository 00:00: y rectally at Medical bedtime, Branch do not use within 6 hours of taking reglan. proMETHazin 2020-03 Yes Insert 1 [facility] [place] 25 mg 2-03 suppositor ity of suppository 00:00: y rectally [place] at Medical bedtime, Branch do not use within 6 hours of taking reglan. proMETHazin 2020-03 Yes Insert 1 Un [place] e 25 mg 2-03 suppositor ity of suppository 00:00: y rectally [place] at Medical bedtime, Branch do not use [...] hours of taking reglan. ibuprofen 2019- No [id number] 800mg Take 1 [facility] 800 mg 10-25- tablet by ity of tablet 00:00: 04:59 mouth [place] 00 :00 every 6 Medical (six) Branch hours as needed for Pain (scale 4-6) for up to 21 days. sulfamethox 2019- No [id number] 1{tbl} Take 1 [facility] azole-trime 10-23 tablet by it y of thoprim 00:00: 00:00 mouth 2 [place] (BACTRIM 00 :00 (two) Medical DS) 800-160 times Branch mg per daily for tablet 10 days. SERTraline 2020- No [id number] 50mg Take 1 [facility] 50 mg 09-26 tablet by ity of tablet 00:00: 00:00 mouth [place] 00 :00 daily. Medical Branch dextroamphe 2019- No [id number] 20mg Take 1 Univers tamine-amph 6-20 10-30 tablet by it y of etamine 00:00: 00:00 mouth 3 [place] (ADDERALL) 00 :00 (three) Medica l 20 mg times Branch tablet daily. dextroamphe 2019- No [id number] Take 1 tab Univers tamine-amph 08-19 10-30 in morning i ty of etamine 10 00:00: 00:00 x 3 days [place] mg tablet 00 :00 then Medical increase Branch to 1 tab twice daily x 7 days then , if needed take 2 tabs twice daily (otherwise continue 1 tab twice daily), further refills from psychiatry clonazePAM 2019- No [id number] .5mg Take 1 Univers (KLONOPIN) 08-12 tablet by ity of 0.5 mg 00:00: 00:00 mouth [place] tablet 00 :00 every 8 Medical (eight) Branch hours as needed (Anxiety). PANTOPRAZOL 2019- No [id number] TAKE 1 Univers E 40 mg EC 07-23 TABLET BY ity of tablet 00:00: 00:00 MOUTH [place] 00 :00 EVERY DAY Medical Branch [id number] No 1{dose} Take 1 U nivers carb,glu-FA 06-12 Dose by ity of -dss-dha 00:00: 00:00 mouth [place] (CITRANATAL 00 :00 daily. Medica l ASSURE) 35 Branch mg iron-1 mg -50 mg-300 mg combo pack diazePAM 5 2019- No Take one Un [place] mg tablet 06-08 10-30 5mg tablet ity of 00:00: 00:00 30 minutes [place] 00 :00 prior to Medical MRI study, Branch and may repeat one 5mg tablet as needed. levothyroxi 2019- No [id number] 112ug Take 1 Univers ne 309 12-15 tablet by ity of (SYNTHROID) 00:00: 00:00 mouth [place] 112 mcg 00 :00 every Medical tablet morning. Branch atorvastati 2019- No [id number] 40mg Take 1 Univers n 40 mg 04-26 10-19 tablet by ity of tablet 00:00: 00:00 mouth at [place] 00 :00 bedtime. Medical Branch traMADol 2019- No [id number] 50mg Take 1 U nivers (ULTRAM) 50 04-24 tablet by it y of mg tablet 00:00: 00:00 mouth [place] 00 :00 every 6 Medical (six) Branch hours as needed for Pain (scale 4-6) or Pain (scale 7-10). zonisamide 2019- No [id number] 100mg Take 1 Univers 100 mg 1-24 08-10 capsule by ity of capsule 00:00: 00:00 mouth 2 [place] 00 :00 (two) Medical times Branch daily. butalbital- 2019- No [id number] 1{tbl} Take 1 Univers acetaminoph 1-10 10-30 tablet by it y of en-caff 00:00: 00:00 mouth [place] 50-325-40 00 :00 every 6 Medical mg tablet (six) Branch hours as needed (Migraine Headaches) . clonazePAM 2019- No [id number] .5mg Take 1 Univers 0.5 mg 1-10 10-30 tablet by ity of tablet 00:00: 00:00 mouth 3 [place] 00 :00 (three) Medical times Branch daily. 2019- No [id number] 1{tbl} Take 1 [facility] vitamin 8-27 08-02 tablet by ity of w/FA tablet 00:00: 00:00 mouth [place] 00 :00 daily. Medical Branch Immunizations Ordered Filled Immunization Date Status Comments [facility] e Immunization Name Name Influenza Virus 2022-01-27 Completed Universit y of Vaccine Quad IM, 00:00:00 [place] Me dical Preserv and ABX Branch Free 6 MO-64 YRS Influenza Virus 2022-01-27 Completed Universit y of Vaccine [facility] IM, 00:00:00 [place] Me dical Preserv and ABX Branch Free 6 MO-64 YRS Influenza Virus 2022-01-27 Completed Universit y of Vaccine Quad IM, 00:00:00 [place] Me dical Preserv and ABX Branch Free 6 MO-64 YRS Influenza Virus 2022-01-27 Completed Universit y of Vaccine Quad IM, 00:00:00 [place] Me dical Preserv and ABX Branch Free 6 MO-64 YRS Influenza Virus 2022-01-27 Completed Universit y of Vaccine Quad IM, 00:00:00 [place] Me dical Preserv and ABX Branch Free [...] Universit y of Vaccine Quad IM, 00:00:00 [place] Me dical Preserv and ABX Branch Free 6 MO-64 YRS Influenza Virus 2022-01-27 Completed Universit y of Vaccine Quad IM, 00:00:00 [place] Me dical Preserv and ABX Branch Free 6 MO-64 YRS Influenza Virus 2022-01-27 Completed Universit y of Vaccine Quad IM, 00:00:00 [place] Me dical Preserv and ABX Branch Free 6 MO-64 YRS Influenza Virus 2022-01-27 Completed Universit y of Vaccine Quad IM, 00:00:00 [place] Me dical Preserv and ABX Branch Free [...] YRS TDAP 2021-02-07 Completed University of 00:00:00 [facility] Branch Influenza Virus 2021-02-07 Completed Universit y of Vaccine Quad IM, 00:00:00 [place] Me dical Preserv and ABX Branch Free 6 MO-64 YRS TDAP 2021-02-07 Completed University of 00:00:00 [facility] [place] [facility] Influenza Virus 2021-02-07 Completed Universit y of Vaccine Quad IM, 00:00:00 [place] Me dical Preserv and ABX Branch Free 6 MO-64 YRS TDAP 2021-02-07 Completed University of 00:00:00 [facility] [place] [facility] Influenza Virus 2021-02-07 Completed Universit y of Vaccine Quad IM, 00:00:00 [place] Me dical Preserv and ABX Branch Free 6 MO-64 YRS TDAP 2021-02-07 Completed University of 00:00:00 [facility] [place] [facility] Influenza Virus 2021-02-07 Completed Universit y of Vaccine Quad IM, 00:00:00 [place] Me dical Preserv and ABX Branch Free 6 MO-64 YRS TDAP 2021-02-07 Completed University of 00:00:00 [facility] [place] [facility] Influenza Virus 2021-02-07 Completed Universit y of Vaccine Quad IM, 00:00:00 [place] Me dical Preserv and ABX Branch Free 6 MO-64 YRS TDAP 2021-02-07 Completed University of 00:00:00 [facility] [place] [facility] Influenza Virus 2021-02-07 Completed Universit y of Vaccine Quad IM, 00:00:00 [place] Me dical Preserv and ABX Branch Free 6 MO-64 YRS TDAP 2021-02-07 Completed University of 00:00:00 [facility] [place] [facility] Influenza Virus 2021-02-07 Completed Universit y of Vaccine Quad IM, 00:00:00 [place] Me dical Preserv and ABX Branch Free 6 MO-64 YRS TDAP 2021-02-07 Completed University of 00:00:00 [facility] [place] [facility] Influenza Virus 2021-02-07 Completed Universit y of Vaccine Quad IM, 00:00:00 [place] Me dical Preserv and ABX Branch Free 6 MO-64 YRS TDAP 2021-02-07 Completed University of 00:00:00 [facility] [place] [facility] Influenza Virus 2021-02-07 Completed Universit y of Vaccine Quad IM, 00:00:00 [place] Me dical Preserv and ABX Branch Free 6 MO-64 YRS TDAP 2021-02-07 Completed University of 00:00:00 [facility] [place] [facility] Influenza Virus 2021-02-07 Completed Universit y of Vaccine Quad IM, 00:00:00 [place] Me dical Preserv and ABX Branch Free 6 MO-64 YRS TDAP 2021-02-07 Completed University of 00:00:00 [facility] [place] [facility] Influenza Virus 2021-02-07 Completed Universit y of Vaccine Quad IM, 00:00:00 [place] Me dical Preserv and ABX Branch Free 6 MO-64 YRS TDAP 2021-02-07 Completed University of 00:00:00 [facility] [place] [facility] Influenza Virus 2021-02-07 Completed Universit y of Vaccine Quad IM, 00:00:00 [place] Me dical Preserv and ABX Branch Free 6 MO-64 YRS TDAP 2021-02-07 Completed University of 00:00:00 [facility] [place] [facility] Influenza Virus 2021-02-07 Completed Universit y of Vaccine Quad IM, 00:00:00 [facility] dical Preserv and ABX Branch Free 6 MO-64 YRS TDAP 2021-02-07 Completed University of 00:00:00 [facility] [place] [facility] Influenza Virus 2021-02-07 Completed Universit y of Vaccine Quad IM, 00:00:00 [facility] dical Preserv and ABX Branch Free 6 MO-64 YRS TDAP 2021-02-07 Completed University of 00:00:00 [facility] [place] [facility] Influenza Virus 2021-02-07 Completed Universit y of Vaccine Quad IM, 00:00:00 [place] Me dical Preserv and ABX Branch Free 6 MO-64 YRS TDAP 2021-02-07 Completed University of 00:00:00 [facility] [place] [facility] Influenza Virus 2021-02-07 Completed Universit y of Vaccine Quad IM, 00:00:00 [facility] dical Preserv and ABX Branch Free 6 MO-64 YRS TDAP 2021-02-07 Completed University of 00:00:00 [facility] [place] [facility] Influenza Virus 2021-02-07 Completed Universit y of Vaccine Quad IM, 00:00:00 [facility] dical Preserv and ABX Branch Free 6 MO-64 YRS TDAP 2021-02-07 Completed University of 00:00:00 [facility] [place] [facility] Influenza Virus 2021-02-07 Completed Universit y of Vaccine Quad IM, 00:00:00 [place] Me dical Preserv and ABX Branch Free 6 MO-64 YRS TDAP 2021-02-07 Completed University of 00:00:00 [facility] [place] [facility] Influenza Virus 2021-02-07 Completed Universit y of Vaccine Quad IM, 00:00:00 [place] Me dical Preserv and ABX Branch Free 6 MO-64 YRS TDAP 2021-02-07 Completed University of 00:00:00 [facility] [place] [facility] Influenza Virus 2021-02-07 Completed Universit y of Vaccine Quad IM, 00:00:00 [place] Me dical Preserv and ABX Branch Free 6 MO-64 YRS TDAP 2021-02-07 Completed University of 00:00:00 [facility] [place] [facility] Influenza Virus 2021-02-07 Completed Universit y of Vaccine Quad IM, 00:00:00 [place] Me dical Preserv and ABX Branch Free 6 MO-64 YRS TDAP 2021-02-07 Completed University of 00:00:00 [facility] [place] [facility] Influenza Virus 2021-02-07 Completed Universit y of Vaccine Quad IM, 00:00:00 [place] Me dical Preserv and ABX Branch Free 6 MO-64 YRS TDAP 2021-02-07 Completed University of 00:00:00 [facility] [place] [facility] Influenza Virus 2021-02-07 Completed Universit y of Vaccine Quad IM, 00:00:00 [place] Me dical Preserv and ABX Branch Free 6 MO-64 YRS TDAP 2021-02-07 Completed University of 00:00:00 [facility] Influenza Virus 2021-02-07 Completed [facility], 00:00:00 [place] [facility] Preserv and ABX Branch Free 6 MO-64 YRS TDAP 2021-02-07 Completed [facility] 00:00:00 [facility] Influenza Virus 2021-02-07 Completed [facility], 00:00:00 [place] [facility] Preserv and ABX Branch Free 6 MO-64 YRS TDAP 2021-02-07 Completed [facility] of 00:00:00 [facility] Influenza Virus 2021-02-07 Completed [facility], 00:00:00 [place] [facility] Preserv and ABX Branch Free 6 MO-64 YRS TDAP 2021-02-07 Completed [facility] 00:00:00 [facility] Influenza Virus 2021-02-07 Completed [facility], 00:00:00 [place] [facility] Preserv and ABX Branch Free 6 MO-64 YRS TDAP 2021-02-07 Completed [facility] 00:00:00 [facility] Influenza Virus 2021-02-07 Completed [facility], 00:00:00 [place] [facility] Preserv and ABX Branch Free 6 MO-64 YRS TDAP 2021-02-07 Completed [facility] 00:00:00 [facility] Influenza Virus 2021-02-07 Completed [facility], 00:00:00 [place] [facility] Preserv and ABX Branch Free 6 MO-64 YRS TDAP 2021-02-07 Completed [facility] of 00:00:00 [facility] Influenza Virus 2021-02-07 Completed [facility], 00:00:00 [place] [facility] Preserv and ABX Branch Free 6 MO-64 YRS TDAP 2021-02-07 Completed [facility] 00:00:00 [facility] Influenza Virus 2021-02-07 Completed [facility], 00:00:00 [place] [facility] Preserv and ABX Branch Free 6 MO-64 YRS TDAP 2021-02-07 Completed [facility] 00:00:00 [facility] Influenza Virus 2021-02-07 Completed [facility], 00:00:00 [place] [facility] Preserv and ABX Branch Free 6 MO-64 YRS TDAP 2021-02-07 Completed [facility] 00:00:00 [facility] Influenza Virus 2021-02-07 Completed [facility], 00:00:00 [place] [facility] Preserv and ABX Branch Free 6 MO-64 YRS TDAP 2021-02-07 Completed [facility] 00:00:00 [facility] Influenza Virus 2021-02-07 Completed [facility], 00:00:00 [place] [facility] Preserv and ABX Branch Free 6 MO-64 YRS TDAP 2021-02-07 Completed [facility] 00:00:00 [facility] Influenza Virus 2021-02-07 Completed [facility], 00:00:00 [place] [facility] Preserv and ABX Branch Free 6 MO-64 YRS TDAP 2021-02-07 Completed [facility] 00:00:00 [facility] Influenza Virus 2021-02-07 Completed [facility], 00:00:00 [place] [facility] Preserv and ABX Branch Free 6 MO-64 YRS TDAP 2021-02-07 Completed [facility] 00:00:00 [facility] Influenza Virus 2021-02-07 Completed [facility], 00:00:00 [place] [facility] Preserv and ABX Branch Free 6 MO-64 YRS TDAP 2021-02-07 Completed [facility] 00:00:00 [facility] Influenza Virus 2021-02-07 Completed [facility], 00:00:00 [place] [facility] Preserv and ABX Branch Free 6 MO-64 YRS TDAP 2021-02-07 Completed [facility] 00:00:00 [facility] Influenza Virus 2021-02-07 Completed [facility], 00:00:00 [place] [facility] Preserv and ABX Branch Free 6 MO-64 YRS TDAP 2021-02-07 Completed [facility] 00:00:00 [facility] Influenza Virus 2021-02-07 Completed [facility], 00:00:00 [place] [facility] Preserv and ABX Branch Free 6 MO-64 YRS TDAP 2021-02-07 Completed [facility] 00:00:00 [facility] Influenza Virus 2021-02-07 Completed [facility], 00:00:00 [place] [facility] Preserv and ABX Branch Free 6 MO-64 YRS TDAP 2021-02-07 Completed [facility] 00:00:00 [facility] Influenza Virus 2021-02-07 Completed [facility], 00:00:00 [place] [facility] Preserv and ABX Branch Free 6 MO-64 YRS TDAP 2021-02-07 Completed [facility] 00:00:00 [facility] Influenza Virus 2021-02-07 Completed [facility], 00:00:00 [place] [facility] Preserv and ABX Branch Free 6 MO-64 YRS TDAP 2021-02-07 Completed [facility] 00:00:00 [facility] Influenza Virus 2021-02-07 Completed [facility], 00:00:00 [place] [facility] Preserv and ABX Branch Free 6 MO-64 YRS TDAP 2021-02-07 Completed [facility] 00:00:00 [facility] Influenza Virus 2021-02-07 Completed [facility], 00:00:00 [place] [facility] Preserv and ABX Branch Free 6 MO-64 YRS TDAP 2021-02-07 Completed [facility] 00:00:00 [facility] Influenza Virus 2021-02-07 Completed [facility], 00:00:00 [place] [facility] Preserv and ABX Branch Free 6 MO-64 YRS TDAP 2021-02-07 Completed [facility] 00:00:00 [facility] Influenza Virus 2021-02-07 Completed [facility], 00:00:00 [place] [facility] Preserv and ABX Branch Free 6 MO-64 YRS TDAP 2021-02-07 Completed [facility] 00:00:00 [facility] Influenza Virus 2021-02-07 Completed [facility], 00:00:00 [place] [facility] Preserv and ABX Branch Free 6 MO-64 YRS TDAP 2021-02-07 Completed [facility] 00:00:00 [facility] Influenza Virus 2021-02-07 Completed [facility], 00:00:00 [facility] dical Preserv and ABX Branch Free 6 MO-64 YRS TDAP 2021-02-07 Completed [facility] of 00:00:00 [facility] Influenza Virus 2021-02-07 Completed [facility] IM, 00:00:00 [facility] dical Preserv and ABX Branch Free 6 MO-64 YRS TDAP 2021-02-07 Completed [facility] of 00:00:00 [facility] Influenza Virus 2021-02-07 Completed [facility] IM, 00:00:00 [facility] dical Preserv and ABX Branch Free 6 MO-64 YRS TDAP 2021-02-07 Completed [facility] of 00:00:00 [facility] Influenza Virus 2021-02-07 Completed [facility], 00:00:00 [place] [facility] Preserv and ABX Branch Free 6 MO-64 YRS TDAP 2021-02-07 Completed [facility] 00:00:00 [facility] Influenza Virus 2021-02-07 Completed [facility], 00:00:00 [place] [facility] Preserv and ABX Branch Free 6 MO-64 YRS TDAP 2021-02-07 Completed [facility] 00:00:00 [facility] Influenza Virus 2021-02-07 Completed [facility], 00:00:00 [place] [facility] Preserv and ABX Branch Free 6 MO-64 YRS TDAP 2021-02-07 Completed [facility] 00:00:00 [facility] Influenza Virus 2021-02-07 Completed [facility], 00:00:00 [place] [facility] Preserv and ABX Branch Free 6 MO-64 YRS TDAP 2021-02-07 Completed [facility] 00:00:00 [facility] Influenza Virus 2021-02-07 Completed [facility], 00:00:00 [place] [facility] Preserv and ABX Branch Free 6 MO-64 YRS TDAP 2021-02-07 Completed [facility] 00:00:00 [facility] Influenza Virus 2021-02-07 Completed [facility] IM, 00:00:00 [facility] dical Preserv and ABX Branch Free 6 MO-64 YRS TDAP 2021-02-07 Completed [facility] of 00:00:00 [facility] Influenza Virus 2021-02-07 Completed [facility] IM, 00:00:00 [facility] dical Preserv and ABX Branch Free 6 MO-64 YRS TDAP 2021-02-07 Completed [facility] of 00:00:00 [facility] Influenza Virus 2021-02-07 Completed [facility] IM, 00:00:00 [facility] dical Preserv and ABX Branch Free 6 MO-64 YRS TDAP 2021-02-07 Completed [facility] of 00:00:00 [facility] Influenza Virus 2021-02-07 Completed [facility] IM, 00:00:00 [place] [facility] Preserv and ABX Branch Free 6 MO-64 YRS TDAP 2021-02-07 Completed [facility] 00:00:00 [facility] Influenza Virus 2021-02-07 Completed [facility], 00:00:00 [place] [facility] Preserv and ABX Branch Free 6 MO-64 YRS TDAP 2021-02-07 Completed [facility] 00:00:00 [facility] Influenza Virus 2021-02-07 Completed [facility] IM, 00:00:00 [place] [facility] Preserv and ABX Branch Free 6 MO-64 YRS TDAP 2021-02-07 Completed [facility] 00:00:00 [facility] Influenza Virus 2021-02-07 Completed [facility] IM, 00:00:00 [place] [facility] Preserv and ABX Branch Free 6 MO-64 YRS TDAP 2021-02-07 Completed [facility] 00:00:00 [facility] Influenza Virus 2021-02-07 Completed [facility] IM, 00:00:00 [place] [facility] Preserv and ABX Branch Free 6 MO-64 YRS TDAP 2021-02-07 Completed [facility] 00:00:00 [facility] Influenza Virus 2021-02-07 Completed [facility] IM, 00:00:00 [place] [facility] Preserv and ABX Branch Free 6 MO-64 YRS TDAP 2021-02-07 Completed [facility] 00:00:00 [facility] Influenza Virus 2021-02-07 Completed [facility] IM, 00:00:00 [place] [facility] Preserv and ABX Branch Free 6 MO-64 YRS TDAP 2021-02-07 Completed [facility] 00:00:00 [facility] Influenza Virus 2021-02-07 Completed [facility] IM, 00:00:00 [place] [facility] Preserv and ABX Branch Free 6 MO-64 YRS TDAP 2021-02-07 Completed [facility] 00:00:00 [facility] Influenza Virus 2021-02-07 Completed [facility] IM, 00:00:00 [place] [facility] Preserv and ABX Branch Free 6 MO-64 YRS TDAP 2021-02-07 Completed [facility] 00:00:00 [facility] Influenza Virus 2021-02-07 Completed [facility] IM, 00:00:00 [place] [facility] Preserv and ABX Branch Free 6 MO-64 YRS TDAP 2021-02-07 Completed [facility] 00:00:00 [facility] Influenza Virus 2021-02-07 Completed [facility] IM, 00:00:00 [place] [facility] Preserv and ABX Branch Free 6 MO-64 YRS TDAP 2021-02-07 Completed [facility] 00:00:00 [facility] Influenza Virus 2021-02-07 Completed [facility] IM, 00:00:00 [place] [facility] Preserv and ABX Branch Free 6 MO-64 YRS TDAP 2021-02-07 Completed [facility] 00:00:00 [facility] Influenza Virus 2021-02-07 Completed [facility], 00:00:00 [place] [facility] Preserv and ABX Branch Free 6 MO-64 YRS TDAP 2021-02-07 Completed [facility] 00:00:00 [facility] Influenza Virus 2021-02-07 Completed [facility] IM, 00:00:00 [place] [facility] Preserv and ABX Branch Free 6 MO-64 YRS TDAP 2021-02-07 Completed [facility] 00:00:00 [facility] Influenza Virus 2021-02-07 Completed [facility] Vacc[facility] IM, 00:00:00 [place] [facility] Preserv and ABX Branch Free 6 MO-64 YRS TDAP 2021-02-07 Completed [facility] 00:00:00 [facility] Influenza Virus 2021-02-07 Completed [facility] IM, 00:00:00 [place] [facility] Preserv and ABX Branch Free 6 MO-64 YRS TDAP 2021-02-07 Completed [facility] 00:00:00 [facility] Influenza Virus 2021-02-07 Completed [facility] IM, 00:00:00 [place] [facility] Preserv and ABX Branch Free 6 MO-64 YRS TDAP 2021-02-07 Completed [facility] 00:00:00 [facility] Influenza Virus 2021-02-07 Completed [facility] IM, 00:00:00 [place] [facility] Preserv and ABX Branch Free 6 MO-64 YRS TDAP 2021-02-07 Completed [facility] 00:00:00 [facility] Influenza Virus 2021-02-07 Completed [facility] IM, 00:00:00 [place] [facility] Preserv and ABX Branch Free 6 MO-64 YRS TDAP 2021-02-07 Completed [facility] 00:00:00 [facility] Influenza Virus 2021-02-07 Completed [facility] IM, 00:00:00 [place] [facility] Preserv and ABX Branch Free 6 MO-64 YRS TDAP 2021-02-07 Completed [facility] 00:00:00 [facility] Influenza Virus 2021-02-07 Completed [facility] Vacc[facility] IM, 00:00:00 [place] [facility] Preserv and ABX Branch Free 6 MO-64 YRS TDAP 2021-02-07 Completed [facility] 00:00:00 [facility] Influenza Virus 2021-02-07 Completed [facility] Vacc[facility] IM, 00:00:00 [place] [facility] Preserv and ABX Branch Free 6 MO-64 YRS TDAP 2021-02-07 Completed [facility] 00:00:00 [facility] Influenza Virus 2021-02-07 Completed [facility]ine [facility] IM, 00:00:00 [place] [facility] Preserv and ABX Branch Free 6 MO-64 YRS TDAP 2021-02-07 Completed [facility] 00:00:00 [facility] Influenza Virus 2021-02-07 Completed [facility] Vaccine [facility] IM, 00:00:00 [place] [facility] Preserv and ABX Branch Free 6 MO-64 YRS TDAP 2021-02-07 Completed [facility] 00:00:00 [facility] Influenza Virus 2021-02-07 Completed [facility] Vaccine Quad IM, 00:00:00 [facility] dical Preserv and ABX Branch Free 6 MO-64 YRS TDAP 2021-02-07 Completed [facility] 00:00:00 [facility] Influenza Virus 2021-02-07 Completed [facility] IM, 00:00:00 [place] [facility] Preserv and ABX Branch Free 6 MO-64 YRS TDAP 2021-02-07 Completed [facility] 00:00:00 [facility] Influenza Virus 2021-02-07 Completed [facility] Vaccine [facility] IM, 00:00:00 [facility] dical Preserv and ABX Branch Free 6 MO-64 YRS TDAP 2021-02-07 Completed [facility] 00:00:00 [facility] Influenza Virus 2021-02-07 Completed [facility] Vaccine [facility] IM, 00:00:00 [place] [facility] Preserv and ABX Branch Free 6 MO-64 YRS TDAP 2021-02-07 Completed [facility] 00:00:00 [facility] Influenza Virus 2020-01-25 Completed [facility] Vaccine Quad .5 mL 00:00:00 [place] [facility] 6+ MO Branch Influenza Virus 2020-01-25 Completed [facility]ine Quad .5 mL 00:00:00 [place] [facility] 6+ MO Branch Influenza Virus [...] y of Vaccine Quad .5 mL 00:00:00 [place] [facility] 6+ MO Branch Influenza Virus 2018-12-23 Completed [facility] .5 mL 00:00:00 [place] [facility] 6+ MO Branch Influenza Virus 2018-12-23 Completed [facility] Vaccine Quad .5 mL 00:00:00 [place] [facility] 6+ MO Branch Influenza Virus 2018-12-23 Completed [facility]ine [facility] .5 mL 00:00:00 [place] [facility] 6+ MO Branch Influenza Virus 2018-12-23 Completed [facility] .5 mL 00:00:00 [place] [facility] 6+ MO Branch Influenza Virus 2018-12-23 Completed [facility] .5 mL 00:00:00 [place] [facility] 6+ MO Branch Influenza Virus [...] y of Vaccine Quad .5 mL 00:00:00 [place] [facility] 6+ MO Branch Influenza Virus [...] y of Vaccine Quad .5 mL 00:00:00 [place] [facility] 6+ MO Branch Influenza Virus 2018-12-23 Completed [facility] .5 mL 00:00:00 [place] [facility] 6+ MO Branch Influenza Virus 2018-12-23 Completed [facility] .5 mL 00:00:00 [place] [facility] 6+ MO Branch Influenza Virus 2018-12-23 Completed [facility] .5 mL 00:00:00 [place] [facility] 6+ MO Branch Influenza Virus 2018-12-23 Completed [facility] .5 mL 00:00:00 [place] [facility] 6+ MO Branch Influenza Virus 2018-12-23 Completed [facility]ine [facility] .5 mL 00:00:00 [place] [facility] 6+ MO Branch Influenza Virus 2018-12-23 [...] y of Vaccine Quad .5 mL 00:00:00 [place] [facility] 6+ MO Branch Influenza Virus [...] y of Vaccine Quad .5 mL 00:00:00 [place] [facility] 6+ MO Branch Influenza Virus 2018-12-23 Completed [facility] .5 mL 00:00:00 [facility] 6[facility] MO [facility] Influenza Virus 2018-12-23 Completed [facility] Vaccine Quad .5 mL 00:00:00 [facility] 6+ MO Branch Influenza Virus 2018-12-23 Completed [facility] Vaccine Quad .5 mL 00:00:00 [place] [facility] 6+ MO Branch Influenza Virus 2018-12-23 Completed [facility] Vaccine Quad .5 mL 00:00:00 [facility] 6+ MO Branch Influenza Virus 2018-12-23 Completed [facility] Vaccine Quad .5 mL 00:00:00 [place] [facility] 6+ MO Branch Influenza Virus 2018-12-23 Completed [facility] Vaccine Quad .5 mL 00:00:00 [place] [facility] 6+ MO Branch Influenza Virus 2018-12-23 Completed [facility] Vaccine [facility] .5 mL 00:00:00 [place] [facility] 6+ MO Branch Influenza Virus 2018-12-23 Completed [facility] Vaccine [facility] .5 mL 00:00:00 [place] [facility] 6+ MO Branch Influenza Virus 2018-12-23 Completed [facility]ine [facility] .5 mL 00:00:00 [place] [facility] 6+ MO Branch Influenza Virus 2018-12-23 Completed [facility]ine [facility] .5 mL 00:00:00 [place] [facility] 6+ MO Branch Influenza Virus 2018-12-23 Completed [facility] .5 mL 00:00:00 [facility] 6+ MO Branch Influenza Virus 2018-12-23 Completed [facility] Vaccine Quad .5 mL 00:00:00 [place] [facility] 6+ MO Branch Influenza Virus 2018-12-23 Completed [facility]ine [facility] .5 mL 00:00:00 [place] [facility] 6+ MO Branch Influenza Virus 2018-12-23 Completed [facility] .5 mL 00:00:00 [place] [facility] 6+ MO Branch Influenza Virus 2018-12-23 Completed [facility]ine [facility] .5 mL 00:00:00 [facility] 6+ MO Branch Influenza Virus 2018-12-23 Completed [facility] Vaccine Quad .5 mL 00:00:00 [facility] 6+ MO Branch Influenza Virus 2018-12-23 Completed [facility] Vaccine Quad .5 mL 00:00:00 [place] [facility] 6+ MO Branch Influenza Virus 2018-12-23 Completed [facility] .5 mL 00:00:00 [facility] 6+ MO Branch Influenza Virus 2018-12-23 Completed [facility]ine [facility] .5 mL 00:00:00 [facility] 6+ MO Branch Influenza Virus 2018-12-23 Completed [facility] Vaccine [facility] .5 mL 00:00:00 [facility] 6+ MO Branch Influenza Virus 2018-12-23 Completed [facility] .5 mL 00:00:00 [place] [facility] 6+ MO Branch Influenza Virus 2018-12-23 Completed [facility] .5 mL 00:00:00 [place] [facility] 6+ MO Branch Influenza Virus 2018-12-23 Completed [facility] .5 mL 00:00:00 [place] [facility] 6+ MO Branch Influenza Virus 2018-12-23 Completed [facility] .5 mL 00:00:00 [place] [facility] 6+ MO Branch Influenza Virus 2018-12-23 Completed [facility] .5 mL 00:00:00 [place] [facility] 6+ MO Branch Influenza Virus 2018-12-23 Completed [facility] .5 mL 00:00:00 [place] [facility] 6+ MO Branch Influenza Virus 2018-12-23 Completed [facility] .5 mL 00:00:00 [place] [facility] 6+ MO Branch Influenza Virus 2018-12-23 Completed [facility] .5 mL 00:00:00 [place] [facility] 6+ MO Branch Influenza Virus 2018-12-23 Completed [facility] .5 mL 00:00:00 [place] [facility] 6+ MO Branch Influenza Virus 2018-12-23 Completed [facility] .5 mL 00:00:00 [place] [facility] 6+ MO Branch Influenza Virus 2018-12-23 Completed [facility] .5 mL 00:00:00 [place] [facility] 6+ MO Branch Influenza Virus [...] y of Vaccine Quad .5 mL 00:00:00 [place] [facility] 6+ MO Branch Influenza Virus 2018-12-23 Completed [facility] .5 mL 00:00:00 [facility] 6[facility] MO [facility] Influenza Virus 2018-12-23 Completed [facility] .5 mL 00:00:00 [facility] 6+ MO Branch Influenza Virus 2018-12-23 Completed [facility] .5 mL 00:00:00 [facility] 6+ MO Branch Influenza Virus 2018-12-23 Completed [facility] .5 mL 00:00:00 [facility] 6+ MO Branch Influenza Virus 2018-12-23 Completed [facility] .5 mL 00:00:00 [place] [facility] 6+ MO Branch Influenza Virus [...] y of Vaccine Quad .5 mL 00:00:00 [place] [facility] 6+ MO Branch Influenza Virus 2018-12-23 Completed [facility] .5 mL 00:00:00 [facility] 6+ MO [facility] Influenza Virus 2018-12-23 Completed [facility]ine [facility] .5 mL 00:00:00 [facility] 6+ MO Branch Influenza Virus 2018-12-23 Completed [facility] .5 mL 00:00:00 [place] [facility] 6+ MO Branch Influenza Virus 2018-12-23 Completed [facility] .5 mL 00:00:00 [facility] IM 6+ MO Branch TDAP (ADACEL) 2018-09-14 Completed [facility] of VACCINE 00:00:00 [facility] Branch TDAP (ADACEL) 2018-09-14 Completed [facility] of VACCINE 00:00:00 [facility] Branch TDAP (ADACEL) 2018-09-14 Completed [facility] of VACCINE 00:00:00 [facility] Branch TDAP (ADACEL) 2018-09-14 Completed [facility] of VACCINE 00:00:00 [facility] Branch TDAP (ADACEL) 2018-09-14 Completed [facility] of VACCINE 00:00:00 [facility] TDAP (ADACEL) 2018-09-14 Completed [facility] of VACCINE 00:00:00 [facility] TDAP (ADACEL) 2018-09-14 Completed [facility] VACCINE 00:00:00 [facility] [facility] TDAP (ADACEL) 2018-09-14 Completed University of VACCINE 00:00:00 [facility] TDAP (ADACEL) 2018-09-14 Completed University of VACCINE 00:00:00 [facility] TDAP (ADACEL) 2018-09-14 Completed University of VACCINE 00:00:00 [facility] TDAP (ADACEL) 2018-09-14 Completed University of VACCINE 00:00:00 [facility] TDAP (ADACEL) 2018-09-14 Completed University of VACCINE 00:00:00 [facility] TDAP (ADACEL) 2018-09-14 Completed University of VACCINE 00:00:00 [facility] TDAP (ADACEL) 2018-09-14 Completed University of VACCINE 00:00:00 [facility] TDAP (ADACEL) 2018-09-14 Completed University of VACCINE 00:00:00 [facility] TDAP (ADACEL) 2018-09-14 Completed University of VACCINE 00:00:00 [facility] TDAP (ADACEL) 2018-09-14 Completed University of VACCINE 00:00:00 [facility] TDAP (ADACEL) 2018-09-14 Completed University of VACCINE 00:00:00 [facility] TDAP (ADACEL) 2018-09-14 Completed [facility] VACCINE 00:00:00 [facility] TDAP (ADACEL) 2018-09-14 Completed [facility] VACCINE 00:00:00 [facility] TDAP (ADACEL) 2018-09-14 Completed [facility] VACCINE 00:00:00 [facility] TDAP (ADACEL) 2018-09-14 Completed [facility] VACCINE 00:00:00 [facility] TDAP (ADACEL) 2018-09-14 Completed University of VACCINE 00:00:00 [facility] TDAP (ADACEL) 2018-09-14 Completed University of VACCINE 00:00:00 [facility] TDAP (ADACEL) 2018-09-14 Completed University of VACCINE 00:00:00 [facility] TDAP (ADACEL) 2018-09-14 Completed University of VACCINE 00:00:00 [facility] TDAP (ADACEL) 2018-09-14 Completed University of VACCINE 00:00:00 [facility] TDAP (ADACEL) 2018-09-14 Completed University of VACCINE 00:00:00 [facility] TDAP (ADACEL) 2018-09-14 Completed University of VACCINE 00:00:00 [facility] TDAP (ADACEL) 2018-09-14 Completed University of VACCINE 00:00:00 [facility] TDAP (ADACEL) 2018-09-14 Completed University of VACCINE 00:00:00 [facility] TDAP (ADACEL) 2018-09-14 Completed University of VACCINE 00:00:00 [facility] TDAP (ADACEL) 2018-09-14 Completed University of VACCINE 00:00:00 [facility] TDAP (ADACEL) 2018-09-14 Completed University of VACCINE 00:00:00 [facility] TDAP (ADACEL) 2018-09-14 Completed University of VACCINE 00:00:00 [facility] TDAP (ADACEL) 2018-09-14 Completed University of VACCINE 00:00:00 [facility] TDAP (ADACEL) 2018-09-14 Completed University of VACCINE 00:00:00 [facility] TDAP (ADACEL) 2018-09-14 Completed University of VACCINE 00:00:00 [facility] TDAP (ADACEL) 2018-09-14 Completed University of VACCINE 00:00:00 [facility] TDAP (ADACEL) 2018-09-14 Completed University of VACCINE 00:00:00 [facility] TDAP (ADACEL) 2018-09-14 Completed University of VACCINE 00:00:00 [facility] TDAP (ADACEL) 2018-09-14 Completed University of VACCINE 00:00:00 [facility] TDAP (ADACEL) 2018-09-14 Completed University of VACCINE 00:00:00 [facility] TDAP (ADACEL) 2018-09-14 Completed University of VACCINE 00:00:00 [facility] TDAP (ADACEL) 2018-09-14 Completed University of VACCINE 00:00:00 [facility] TDAP (ADACEL) 2018-09-14 Completed University of VACCINE 00:00:00 [facility] TDAP (ADACEL) 2018-09-14 Completed University of VACCINE 00:00:00 [facility] TDAP (ADACEL) 2018-09-14 Completed University of VACCINE 00:00:00 [facility] TDAP (ADACEL) 2018-09-14 Completed University of VACCINE 00:00:00 [facility] TDAP (ADACEL) 2018-09-14 Completed University of VACCINE 00:00:00 [facility] TDAP (ADACEL) 2018-09-14 Completed University of VACCINE 00:00:00 [facility] TDAP (ADACEL) 2018-09-14 Completed University of VACCINE 00:00:00 [facility] TDAP (ADACEL) 2018-09-14 Completed University of VACCINE 00:00:00 [facility] TDAP (ADACEL) 2018-09-14 Completed University of VACCINE 00:00:00 [facility] TDAP (ADACEL) 2018-09-14 Completed University of VACCINE 00:00:00 [facility] TDAP (ADACEL) 2018-09-14 Completed University of VACCINE 00:00:00 [facility] TDAP (ADACEL) 2018-09-14 Completed University of VACCINE 00:00:00 [facility] TDAP (ADACEL) 2018-09-14 Completed University of VACCINE 00:00:00 [facility] TDAP (ADACEL) 2018-09-14 Completed University of VACCINE 00:00:00 [facility] TDAP (ADACEL) 2018-09-14 Completed University of VACCINE 00:00:00 [facility] TDAP (ADACEL) 2018-09-14 Completed University of VACCINE 00:00:00 [facility] TDAP (ADACEL) 2018-09-14 Completed University of VACCINE 00:00:00 [facility] TDAP (ADACEL) 2018-09-14 Completed University of VACCINE 00:00:00 [facility] TDAP (ADACEL) 2018-09-14 Completed University of VACCINE 00:00:00 [facility] TDAP (ADACEL) 2018-09-14 Completed University of VACCINE 00:00:00 [facility] TDAP (ADACEL) 2018-09-14 Completed University of VACCINE 00:00:00 [facility] TDAP (ADACEL) 2018-09-14 Completed University of VACCINE 00:00:00 [facility] TDAP (ADACEL) 2018-09-14 Completed University of VACCINE 00:00:00 [facility] TDAP (ADACEL) 2018-09-14 Completed University of VACCINE 00:00:00 [facility] TDAP (ADACEL) 2018-09-14 Completed University of VACCINE 00:00:00 [facility] TDAP (ADACEL) 2018-09-14 Completed University of VACCINE 00:00:00 [facility] TDAP (ADACEL) 2018-09-14 Completed University of VACCINE 00:00:00 [facility] TDAP (ADACEL) 2018-09-14 Completed University of VACCINE 00:00:00 [facility] TDAP (ADACEL) 2018-09-14 Completed University of VACCINE 00:00:00 [facility] TDAP (ADACEL) 2018-09-14 Completed University of VACCINE 00:00:00 [facility] TDAP (ADACEL) 2018-09-14 Completed University of VACCINE 00:00:00 [facility] TDAP (ADACEL) 2018-09-14 Completed University of VACCINE 00:00:00 [facility] TDAP (ADACEL) 2018-09-14 Completed University of VACCINE 00:00:00 [facility] TDAP (ADACEL) 2018-09-14 Completed University of VACCINE 00:00:00 [facility] TDAP (ADACEL) 2018-09-14 Completed University of VACCINE 00:00:00 [facility] TDAP (ADACEL) 2018-09-14 Completed [facility] of VACCINE 00:00:00 [facility] TDAP (ADACEL) 2018-09-14 Completed University of VACCINE 00:00:00 [facility] TDAP (ADACEL) 2018-09-14 Completed University of VACCINE 00:00:00 [facility] TDAP (ADACEL) 2018-09-14 Completed University of VACCINE 00:00:00 [facility] TDAP (ADACEL) 2018-09-14 Completed University of VACCINE 00:00:00 [facility] TDAP (ADACEL) 2018-09-14 Completed University of VACCINE 00:00:00 [facility] TDAP (ADACEL) 2018-09-14 Completed University of VACCINE 00:00:00 [facility] TDAP (ADACEL) 2018-09-14 Completed University of VACCINE 00:00:00 [facility] TDAP (ADACEL) 2018-09-14 Completed University of VACCINE 00:00:00 [facility] Vital Signs Vital Name Observation Time Observation Value Comments Source Systolic blood 2022-08-08 19:30:00 124 mm[Hg] Univer sity of pressure [facility] Diastolic blood 2022-08-08 19:30:00 80 mm[Hg] Unive rsity of [facility] Heart rate 2022-08-08 19:30:00 50 /min Universi ty of [facility] Body temperature 2022-08-08 19:30:00 36.61 Darleen Univ ersity of [facility] Respiratory rate 2022-08-08 19:30:00 17 /min Univ ersity of [facility] Body height 2022-08-08 19:30:00 165.1 cm Universi ty of [facility] Body weight 2022-08-08 19:30:00 56.427 kg Universi ty of [facility] BMI 2022-08-08 19:30:00 20.70 kg/m2 Universi ty [facility] Oxygen saturation in 2022-08-08 19:30:00 100 /min University Arterial blood by [facility] Pulse oximetry Branch Systolic blood 2022-08-04 18:54:00 102 mm[Hg] Univer sity of pressure [facility] Diastolic blood 2022-08-04 18:54:00 70 mm[Hg] Unive rsity of pressure [facility] Heart rate 2022-08-04 18:54:00 76 /min Universi ty of [facility] Body height 2022-08-04 18:54:00 165.1 cm Universi ty of [facility] Body weight 2022-08-04 18:54:00 56.7 kg Universi ty of [facility] BMI 2022-08-04 18:54:00 20.80 kg/m2 Universi ty of [facility] Systolic blood 2022-06-09 13:23:00 100 mm[Hg] Univer sity of pressure [facility] Diastolic blood 2022-06-09 13:23:00 77 mm[Hg] Unive rsity of pressure [facility] Heart rate 2022-06-09 13:23:00 73 /min Universi ty of [facility] Body temperature 2022-06-09 13:23:00 36.61 Darleen Univ ersity of [facility] Respiratory rate 2022-06-09 13:23:00 20 /min Univ ersity of [facility] Body height 2022-06-09 13:23:00 165.1 cm Universi ty of [facility] Body weight 2022-06-09 13:23:00 61.009 kg Universi ty of [facility] BMI 2022-06-09 13:23:00 22.38 kg/m2 Universi ty of [facility] Oxygen saturation in 2022-06-09 13:23:00 100 /min University of Arterial blood by [facility] Pulse oximetry Branch Systolic blood 2022-04-30 16:02:00 108 mm[Hg] Univer sity of pressure [facility] Diastolic blood 2022-04-30 16:02:00 76 mm[Hg] Unive rsity of pressure [facility] Heart rate 2022-04-30 16:02:00 69 /min Universi ty of [facility] Body temperature 2022-04-30 16:02:00 36.78 Darleen Univ ersity of [facility] Respiratory rate 2022-04-30 16:02:00 18 /min Univ ersity of [facility] Body height 2022-04-30 16:02:00 165.1 cm Universi ty of [facility] Body weight 2022-04-30 16:02:00 54.885 kg Universi ty of [facility] BMI 2022-04-30 16:02:00 20.14 kg/m2 Universi ty of [facility] Systolic blood 2022-03-11 03:49:00 94 mm[Hg] Univer sity of pressure [facility] Diastolic blood 2022-03-11 03:49:00 66 mm[Hg] Unive rsity of pressure [facility] Heart rate 2022-03-11 03:49:00 68 /min Universi ty of [facility] Body temperature 2022-03-11 03:49:00 36.22 Darleen [facility] Respiratory rate 2022-03-11 03:49:00 16 /min [facility] Oxygen saturation in 2022-03-11 03:49:00 97 /min [facility] Arterial blood by [facility] Pulse oximetry Branch Body height 2022-03-10 23:54:00 165.1 cm [facility] Body weight 2022-03-10 23:54:00 56.7 kg [facility] BMI 2022-03-10 23:54:00 20.80 kg/m2 [facility] Systolic blood 2022-01-27 16:15:00 103 mm[Hg] [facility] Diastolic blood 2022-01-27 16:15:00 74 mm[Hg] [facility] Heart rate 2022-01-27 16:15:00 93 /min [facility] Body weight 2022-01-27 16:15:00 57.607 kg [facility] BMI 2022-01-27 16:15:00 21.13 kg/m2 [facility] Procedures Procedure Date / Time Performing Clinician Source Performed HEPATITIS B SURFACE 2022-06-26 15:45:00 Teo Ingram [facility] ANTIGEN [facility] HIV 1/2 AG-AB WITH REFLEX 2022-06-26 15:45:00 [facility] BREAST 2022-06-26 14:44:24 Teo Ingram [facility] COMPLETE LEFT [facility] BI DIAGNOSTIC 2022-06-26 14:00:00 [place]o Ingram [place] [facility] [place] TOMOSYNTHESIS LEFT Medical Branc h XR CHEST 1 VW 2022-06-09 14:21:00 Eric Fernandez [facility] CT CERVICAL SPINE WO 2022-06-09 14:18:00 [facility] CONTRAST [facility] INSURANCE CORRESPONDENCE 2022-06-08 05:01:00 Doctor Unassigned, [facility] CONSENT/REFUSAL FOR 2022-06-03 16:39:37 Doctor Alyssa [facility] DIAGNOSIS AND TREATMENT [facility] [place] DME/SUPPLY JUSTIFICATION 2022-05-04 06:01:00 Doctor Alyssa, [facility] Name Medical [place] EXTERNAL PROVIDER RECORDS 2022-04-03 06:01:00 Doctor Alyssa, [facility] Name Medical [place] XR WRIST <3 VW RIGHT 2022-03-11 00:49:27 Singer [facility] XR WRIST 3+ VW LEFT 2022-03-11 00:49:27 Singer Darryn [facility] COVID-19 (ID NOW RAPID 2022-03-10 23:52:00 Singer [facility] TESTING) [facility] POCT TEST 2022-03-10 23:46:00 Singer Darryn [facility] COMP. METABOLIC PANEL 2022-03-10 23:45:00 Singer [facility] ([id number]) [facility] SALICYLATE 2022-03-10 23:45:00 [facility] ETHANOL 2022-03-10 23:45:00 [facility] CBC WITH DIFF 2022-03-10 23:45:00 [facility] URINALYSIS 2022-03-10 23:45:00 [facility] (IMMUNOASSAY) 2022-03-10 23:45:00 Singer Darryn [facility] - COMPREHENSIVE DRUG Medical [facility] SCREEN W/O REFLEX FLU VACC ([phone]), 6 2022-01-27 16:36:45 Demar [facility] MO-64 YRS, .5ML, IM, QUAD [place] [facility] (FLUCELVAX) ASSIGNMENT OF BENEFITS 2022-01-27 16:03:32 Doctor Alyssa, [facility] Name Medical [place] POCT URINALYSIS 2022-01-27 00:00:00 Demar [facility] AUTHORIZATION FOR RELEASE 2022-01-08 05:01:00 Doctor Alyssa, [facility] [place] OF PHI [facility] AUTHORIZATION FOR RELEASE 2021-12-23 05:01:00 Doctor Unassigned, [facility] Encounters Start End Encounter Admission Attending Care Care Encounter Source Date/Time Date/Time Type Type Clinicians Facility Department ID 2021-05-01 Outpatient MDA MDA [id number] 17:26:47 Anderso n 2021-02-26 Outpatient P [facility] [id number] Univers 18:38:00 ity of [facility] 2021-01-27 Outpatient P [facility] [id number] Univers 20:41:07 ity of [facility] 2021-01-27 Emergency [facility] [id number] Univers 20:40:15 ity of [facility] 2021-01-27 Emergency [facility] [id number] Univers 15:33:55 ity of [facility] 2021-01-27 Outpatient U [facility] [id number] Univers 01:16:04 ity of [facility] 2021-01-27 Emergency [facility] [id number] Univers 00:53:09 ity of [facility] 2021-01-26 Emergency [facility] [id number] Univers 22:49:05 ity of [facility] 2021-01-25 Emergency [facility] [id number] Univers 21:41:56 ity of [facility] 2021-01-25 [id number] Univers 13:01:25 [facility] [id number] Univers 13:01:24 ALY ity [facility] 2021-01-25 Outpatient R SHELBY, [facility] [id number] Univers 12:47:10 ALY ity [facility] 2021-01-24 [facility] [id number] Univers 15:57:25 ALY ity [facility] 2021-01-24 Emergency [facility] [id number] Univers 10:32:11 ity of [facility] 2021-01-24 Emergency [facility] [id number] Univers 10:16:12 [facility]-01-23 Emergency [facility] [id number] Univers 21:15:49 ity [facility] 2022-12-08 2022-12-08 Outpatient Campos BENZ [facility] [id number] Univers 16:15:00 16:15:00 ARIK leonard [facility] 2022-08-10 2022-08-10 [facility] [id number] Univers 00:00:00 00:00:00 Teo TREVIZO [id number] i ty of [facility] [id number] [id number] [address] 2022-08-10 2022-08-10 [facility] [id number] Univers 00:00:00 00:00:00 Teo TREVIZO [id number] i ty of [id number] [id number] [address] 2022-08-08 2022-08-08 Nurse Nurse, [facility] 1.2.840.114 [id number] Univers 14:30:00 14:50:00 Visit Unknown, [facility] [id number] ity walker TREVIZO [id number] [place] as DONTE?BLEA [id number] [address] OFFICE [facility] 2022-08-08 2022-08-08 Outpatient Campos INGRAM [facility] [id number] Univers 14:30:00 14:30:[address] [facility] 2022-08-04 2022-08-04 Office [facility] [id number] Univers 14:30:00 15:00:[address] [facility] [id number] it y of Jonathan TREVIZO [id number] [place] as DONTE?BLEA [id number] [address] OFFICE BUILDING 2022-08-04 2022-08-04 Outpatient Campos BENZ [facility] [id number] Univers 14:30:00 14:18:19 ARIK ity [facility] 2022-07-30 2022-07-30 RefJUAN Stein [id number] Univers 00:00:00 00:00:00 Abril GARAY [id number] it y of [facility] 4.2.7.2.686 [place] as [id number] [address] 2022-07-26 2022-07-26 [facility] [id number] Univers 00:00:00 00:00:00 [facility] [id number] it y of [facility] [id number] [place] as DONTE?BLEA [id number] [address] MEDICAL OFFICE [facility] 2022-07-22 2022-07-22 [facility] 1.2.840.114 [id number] Univers 00:00:00 00:00:00 [facility] [id number] it y of [facility] [id number] [place] as DONTE?BLEA [phone] [address] MEDICAL OFFICE [facility] 2022-06-26 2022-06-26 Hospital [facility] 1.2.840.114 [id number] Univers 08:19:16 23:59:00 Encounter Teo SPECIALTY [id number] ity [place] [id number] Ia nancydhruv MESSER 800 [facility] 2022-06-26 2022-06-26 [employer] [facility], [facility] 1.2.840.114 [id number] Univers 10:30:00 10:45:00 Visit Teo Ingram SPECIALTY [id number] ity [id number] [id number] Ia dread MESSER 353 [facility] 2022-06-26 2022-06-26 Outpatient R NATALY [facility] [id number] Univers 08:18:41 08:18:00 TEO ity [facility] 2022-06-26 2022-06-26 [facility] 1.2.840.114 [id number] Univers 08:00:00 08:18:00 Encounter Teo SPECIALTY [id number] ity of [id number] [id number] Ia dread MESSER [address] [facility] 2022-06-26 2022-06-26 Case KATHERINE Ingram [id number] Univers 00:00:00 00:00:00 Management Teo PEDIATRIC [id number] [place]y [place] [id number] [address] 2022-06-25 2022-06-25 [facility] 1.2.840.114 [id number] Univers 00:00:00 00:00:00 Secure Msg Arik HEALTH [id number] ity of [place] 4.2.7.2.686 [place] as DONTE?BLEA [id number] Ia dread MELVIN [address] [place] MEDICAL OFFICE BUILDING 2022-06-25 2022-06-25 [facility] 1.2.840.114 [id number] Univers 00:00:00 00:00:00 Secure Msg Arik HEALTH [id number] ity of [place] 4.2.7.2.686 [place] as DONTE?BLEA [id number] Ia dread MELVIN [address] [place] MEDICAL OFFICE BUILDING 2022-06-25 2022-06-25 Patient [facility] [id number] Univers 00:00:00 00:00:00 Secure Msg Te[place] [id number] ity of [place] [id number] Ia dread COTE [address] [facility] 2022-06-22 2022-06-22 Refill [facility] 1.2.840.114 [id number] Univers 00:00:00 00:00:00 Arik HEALTH 350.1.13.10 it y of [place] 4.2.7.2.686 [place] as DONTE?BLEA [id number] [address] OFFICE [facility] 2022-06-22 2022-06-22 Telephone [facility] 1.2.840.114 [id number] Univers 00:00:00 00:00:00 Teo TREVIZO [id number] i ty of [facility] [id number] [id number] [address] 2022-06-19 2022-06-19 Telephone [facility] 1.2.840.114 [id number] Univers 00:00:00 00:00:00 Teo TREVIZO [id number] i ty of [facility] [id number] [id number] [address] 2022-06-12 2022-06-12 Telephone [facility] [id number] Univers 00:00:00 00:00:00 Elle TREVIZO [id number] ity of [place].686 [place] PROFESSIO [phone] [address] 2022-06-10 2022-06-10 Patient Doctor [facility] 1.2.840.114 [id number] Univers 00:00:00 00:00:00 Secure Msg Unassigned, HEALTH 350.1.13.10 ity of [place] JOSELINE 4.2.7.2.686 Henry as DONTE?BLEA [id number] [address] 2022-06-09 2022-06-09 Emergency X AUFDERHEIDE [facility] ERT [id number] Univers 08:29:00 10:11:00 , ERIC ity of [facility] 2022-06-09 2022-06-09 [facility] 1.2.840.114 [id number] Univers 08:29:00 10:11:00 , Eric TREVIZO 350.1.13.10 i ty of [place] [id number] [facility] [address] [place] 2022-06-09 2022-06-09 Telephone [facility] 1.2.840.114 [id number] Univers 00:00:00 00:00:00 Arik HEALTH 350.1.13.10 it y of [place] 4.2.7.2.686 Henry as DONTE?BLEA [phone] [address] MEDICAL OFFICE [facility] 2022-06-09 2022-06-09 Refill [facility] 1.2.840.114 [id number] Univers 00:00:00 00:00:00 [facility] HEALTH 350.1.13.10 it y of [place] 4.2.7.2.686 Henry as DONTE?BLEA [id number] [address] OFFICE [facility] 2022-06-08 2022-06-08 Orders Doctor JUAN 1.2.840.114 [id number] Univers 00:00:00 00:00:00 Only Unassigned, SHAYY 350.1.13.10 ity of [place] [facility] 4.2.7.2.686 Henry as [phone] [facility] [address] 2022-06-05 2022-06-05 Outpatient R LEXIE, [facility] [id number] Univers 11:00:00 11:00:00 ELLE itleonard of [facility] 2022-06-05 2022-06-05 Telephone [facility] 1.2.840.114 [id number] Univers 00:00:00 00:00:00 [facility] 350.1.13.10 it y of [place] 4.2.7.2.686 Henry as DONTE?BLEA [phone] [address] OFFICE [facility] 2022-06-04 2022-06-04 Telephone [facility] 1.2.840.114 [id number] Univers 00:00:00 00:00:00 [facility] HEALTH 350.1.13.10 it y of [place] 4.2.7.2.686 Henry as DONTE?BLEA [phone] [address] OFFICE [facility] 2022-06-04 2022-06-04 Patient [facility] 1.2.840.114 [id number] Univers 00:00:00 00:00:00 Secure Msg Arik HEALTH 350.1.13.10 ity of [place] [facility] 4.2.7.2.686 Henry as DONTE?BLEA [id number] [facility] 044 [facility] OFFICE [facility] 2022-06-03 2022-06-03 Outpatient [facility] [id number] Univers 10:40:13 23:59:00 TEO ity of [facility] 2022-06-03 2022-06-03 [facility] 1.2.840.114 [id number] Univers 10:40:00 23:59:00 Encounter Teo JOSELINE 350.1.13.10 ity [facility] 4.2.7.2.[place] [id number] [facility] [address] [place] 2022-06-03 2022-06-03 Patient Doctor [facility] 1.2.840.114 [id number] Univers 00:00:00 00:00:00 Secure Msg Unassigned, [place] 350.1.13.10 ity of [place].2.7.2.686 [place] [facility] [phone] [facility] 134 [facility] 2022-06-03 2022-06-03 Orders Doctor JUAN 1.2.840.114 [id number] Univers 00:00:00 00:00:00 Only Unassigned, SHAYY 350.1.13.10 ity of [place] [facility] 4.2.7.2.686 Henry as [phone] [facility] [address] [place] 2022-05-25 2022-05-25 Patient [facility] 1.2.840.114 [id number] Univers 00:00:00 00:00:00 Secure Msg Arik HEALTH 350.1.13.10 ity of [place] 4.2.7.2.686 Henry as DONTE?BLEA [phone] [facility] 044 [facility] OFFICE [facility] 2022-05-25 2022-05-25 Telephone [facility] 1.2.840.114 [id number] Univers 00:00:00 00:00:00 [facility] 350.1.13.10 it y of [place] 4.2.7.2.686 Henry as DONTE?BLEA [phone] Ia dread [address] OFFICE [facility] 2022-05-04 2022-05-04 Orders Doctor JUAN 1.2.840.114 [id number] Univers 00:00:00 00:00:00 Only Unassigned, SHAYY 350.1.13.10 ity of [facility] 4.2.7.2.686 Henry as [phone] [address] 2022-04-30 2022-04-30 Outpatient R [facility] [id number] Univers 09:45:00 10:48:[address] [facility] 2022-04-30 2022-04-30 [facility] 1.2.756.200 [id number] [id number] Univers 09:45:00 10:48:21 Visit Teo [place] 350.1.13.10 i ty of [facility] 4.2.7.2.686 [place] [id number] Ia dread [address] 2022-04-30 2022-04-30 Outpatient R NATALY [facility] [id number] Univers 09:45:00 09:45:00 [facility] 2022-04-29 2022-04-29 Refill [facility] 1.2.840.114 [id number] Univers 00:00:00 00:00:00 [facility] 350.1.13.10 it y of [place] 4.2.7.2.686 Henry as DONTE?BLEA [id number] Ia dic[address] OFFICE [facility] 2022-04-28 2022-04-28 Telephone [facility] 1.2.840.114 [id number] Univers 00:00:00 00:00:00 [facility] 350.1.13.10 it y of [place] 4.2.7.2.686 Henry as DONTE?BLEA [phone] Ia dicdhruv [address] OFFICE [facility] 2022-04-24 2022-04-24 [facility] 1.2.840.114 [id number] Univers 00:00:00 00:00:00 [facility] 350.1.13.10 it y of [place] 4.2.7.2.686 Henry as DONTE?BLEA [phone] [address] OFFICE [facility] 2022-04-24 2022-04-24 [facility] 1.2.840.114 [id number] Univers 00:00:00 00:00:00 [facility] 350.1.13.10 it y of [place] 4.2.7.2.686 Henry as DONTE?BLEA [phone] [address] OFFICE [facility] 2022-04-24 2022-04-24 Patient Count includes the [facility] 1.2.840.114 [id number] Univers 00:00:00 00:00:00 Secure Msg Emilia [facility] 350.1.13.10 ity of [place] 4.2.7.2.686 Henry as DONTE?BLEA [id number] [address] OFFICE [facility] 2022-04-24 2022-04-24 [facility] 1.2.840.114 [id number] Univers 00:00:00 00:00:00 [facility] 350.1.13.10 it y of [place] 4.2.7.2.686 Henry as DONTE?BLEA [phone] [address] OFFICE [facility] 2022-04-16 2022-04-16 Telephone [facility] 1.2.840.114 [id number] Univers 00:00:00 00:00:00 [facility] 350.1.13.10 it y of [place] 4.2.7.2.686 Henry as DONTE?BLEA [id number] [address] OFFICE [facility] 2022-04-14 2022-04-14 Telephone [facility] 1.2.840.114 [id number] Univers 00:00:00 00:00:00 [facility] 350.1.13.10 it y of [place] 4.2.7.2.686 Henry as DONTE?BLEA [phone] [address] OFFICE [facility] 2022-04-06 2022-04-06 [facility] 1.2.840.114 [id number] Univers 00:00:00 00:00:00 [facility] HEALTH 350.1.13.10 it y of [place] 4.2.7.2.686 Henry as DONTE?BLEA [id number] [address] OFFICE [facility] 2022-04-06 2022-04-06 [facility] 1.2.840.114 [id number] Univers 00:00:00 00:00:00 [facility] HEALTH 350.1.13.10 it y of [place] 4.2.7.2.686 Henry as DONTE?BLEA [id number] [address] 2022-04-06 2022-04-06 [facility] 1.2.840.114 [id number] Univers 00:00:00 00:00:00 [facility] 350.1.13.10 it y of [place] 4.2.7.2.686 Henry as DONTE?BLEA [id number] [address] 2022-04-06 2022-04-06 [facility] 1.2.840.114 [id number] Univers 00:00:00 00:00:00 [facility] 350.1.13.10 it y of [place] 4.2.7.2.686 Henry as DONTE?BLEA [id number] [address] OFFICE [facility] 2022-04-03 2022-04-03 Orders Doctor JUAN 1.2.840.114 [id number] Univers 00:00:00 00:00:00 Only Unassigned, SHAYY 350.1.13.10 ity of [place] [facility] 4.2.7.2.686 Henry as [phone] [address] 2022-03-29 2022-03-29 [facility] 1.2.840.114 [id number] Univers 00:00:00 00:00:00 [facility] 350.1.13.10 it y of [place] 4.2.7.2.686 Henry as DONTE?BLEA [id number] Ia dread EMLVIN [address] [place] [address] OFFICE [facility] 2022-03-21 2022-03-21 [facility] 1.2.840.114 [id number] Univers 00:00:00 00:00:00 [facility] 350.1.13.10 it y of [place] 4.2.7.2.686 Henry as DONTE?BLEA [phone] Ia dread MELVIN [address] [place] [address] OFFICE [facility] 2022-03-17 2022-03-17 [facility] 1.2.840.114 [id number] Univers 00:00:00 00:00:00 Secure [facility] Emilia [facility] 350.1.13.10 ity of [place] 4.2.7.2.686 Henry as DONTE?BLEA [phone] Ia dread MELVIN [address] [place] [address] 2022-03-16 2022-03-16 [facility] 1.2.840.114 [id number] Univers 00:00:00 00:00:00 [facility] 350.1.13.10 it y of [place] 4.2.7.2.686 Henry as DONTE?BLEA [id number] Ia dread MELVIN [address] [place] [address] 2022-03-16 2022-03-16 [facility] 1.2.840.114 [id number] 002 Univers 00:00:00 00:00:00 [facility] 350.1.13.10 it y of [place] 4.2.7.2.686 Henry as DONTE?BLEA [id number] Ia dread MELVIN [address] [place] [address] OFFICE [facility] 2022-03-16 2022-03-16 Patient [facility] 1.2.840.114 [id number] Univers 00:00:00 00:00:00 Secure [facility] 350.1.13.10 ity of [place] 4.2.7.2.686 Henry as DONTE?BLEA [id number] [address] MEDICAL OFFICE [facility] 2022-03-13 2022-03-13 Patient [facility] 1.2.840.114 [id number] Univers 00:00:00 00:00:00 Secure Msg Arik [facility] 350.1.13.10 ity of [place] 4.2.7.2.686 Henry as DONTE?BLEA [phone] [address] OFFICE [facility] 2022-03-13 2022-03-13 Telephone [facility] 1.2.840.114 [id number] Univers 00:00:00 00:00:00 [facility] 350.1.13.10 [facility] 4.2.7.2.686 [place] as DONTE?BLEA [phone] [address] OFFICE [facility] 2022-03-13 2022-03-13 Refill [facility] 1.2.840.114 [id number] Univers 00:00:00 00:00:00 [facility] 350.1.13.10 [facility] 4.2.7.2.686 Henry as DONTE?BLEA [id number] [address] OFFICE [facility] 2022-03-11 2022-03-11 Letter JUAN Ca 1.2.840.114 [id number] Univers 00:00:00 00:00:00 (Out) Helen SHAYY 350.1.13.10 it y of [facility] 4.2.7.2.686 Henry as [phone] [facility] [address] [place] 2022-03-10 2022-03-10 Emergency X RONEN [facility] ERT [id number] Univers 17:24:00 23:18:00 KEITH ity of [facility] 2022-03-10 2022-03-10 Emergency Darryn Owusu [facility] 1.2.840. 114 [id number] Univers 17:24:00 23:18:00 Keith Yi 350.1.13.10 ity of [place] 4[place]2.7.2.686 [place] [id number] [facility] [address] [place] 2022-03-10 2022-03-10 Refill [facility] 1.2.840.114 [id number] Univers 00:00:00 00:00:00 [facility] 350.1.13.10 it y of Edsteven [place] 4.2.7.2.686 Henry as DONTE?BLEA [phone] [address] MEDICAL OFFICE [facility] 2022-02-23 2022-02-23 [facility] 1.2.840.114 [id number] Univers 00:00:00 00:00:00 [facility] 350.1.13.10 it y of [place]st[place] 4.2.7.2.686 Henry as DONTE?BLEA [id number] [address] OFFICE [facility] 2022-01-27 2022-01-27 Outpatient R [facility] [id number] Univers 11:30:00 12:50:55 ARIK y [facility] 2022-01-27 2022-01-27 Office [facility] 1.2.840.114 [id number] Univers 11:30:00 12:50:[address] [facility] 350.1.13.10 it y of [place] 4.2.7.2.686 Henry as DONTE?BLEA [id number] [address] OFFICE [facility] 2022-01-27 2022-01-27 Orders Doctor JUAN 1.2.840.114 [id number] Univers 00:00:00 00:00:00 Only Unassigned, SHAYY 350.1.13.10 ity of [place] [facility] 4.2.7.2.686 Henry as [phone] [address] 2022-01-26 2022-01-26 Outpatient R [facility] [id number] Univers 13:00:00 13:00:00 ity of [facility] 2022-01-26 2022-01-26 Patient [facility] 1.2.840.114 [id number] Univers 00:00:00 00:00:00 Secure Msg Arik [place] 350.1.13.10 ity of [place]2.7.2.686 [place] [phone] Ia dical NAL [address] [place] [address] 2022-01-26 2022-01-26 Telephone [facility] 1.2.840.114 [id number] Univers 00:00:00 00:00:00 Arik HEALTH 350.1.13.10 it y of [place] 4.2.7.2.686 Henry as DONTE?BLEA [id number] [address] 2022-01-23 2022-01-23 [facility] 1.2.840.114 [id number] Univers 00:00:00 00:00:00 [facility] 350.1.13.10 it y of [place] 4.2.7.2.686 Henry as DONTE?BLEA [phone] [address] 2022-01-22 2022-01-22 Patient [facility] 1.2.840.114 [id number] Univers 00:00:00 00:00:00 Secure Msg Arik [place] 350.1.13.10 ity of [place] 4.2.7.2.686 [place] [phone] [address] 2022-01-20 2022-01-20 [facility] 1.2.840.114 [id number] Univers 00:00:00 00:00:00 [facility] 350.1.13.10 it y of [place] 4.2.7.2.686 Henry as DONTE?BLEA [phone] [address] 2022-01-19 2022-01-19 [facility] 1.2.840.114 [id number] Univers 00:00:00 00:00:00 Arik HEALTH 350.1.13.10 it y of [place] 4.2.7.2.686 Henry as DONTE?BLEA [id number] [address] 2022-01-19 2022-01-19 Patient [facility] 1.2.840.114 [id number] Univers 00:00:00 00:00:00 Secure Msg Arik HEALTH 350.1.13.10 ity of [place] 4.2.7.2.686 Henry as DONTE?BLEA [id number] [address] OFFICE [facility] 2022-01-08 2022-01-08 Telephone [facility] 1.2.114.480 [id number] Univers 00:00:00 00:00:00 Onel HEALTH 350.1.13.10 it y of [place] 4.2.7.2.686 Henry as DONTE?BLEA [id number] [address] OFFICE [facility] 2022-01-08 2022-01-08 Orders Doctor JUAN 1.2.840.114 [id number] Univers 00:00:00 00:00:00 Only Unassigned, SHAYY 350.1.13.10 ity of [place] [facility] 4.2.7.2.686 Henry as [phone] [address] 2021-12-23 2021-12-23 Telephone [facility] 1.2.840.114 [id number] Univers 00:00:00 00:00:00 Arik HEALTH 350.1.13.10 it y of [place] 4.2.7.2.686 Henry as DONTE?BLEA [phone] [address] 2021-12-23 2021-12-23 Orders Doctor JUAN 1.2.840.114 [id number] Univers 00:00:00 00:00:00 Only Unassigned, SHAYY 350.1.13.10 ity of [place] HOSPITAL 4.2.7.2.686 Henry as [phone] [address] 2021-12-22 2021-12-22 Refill [facility] 1.2.840.114 [id number] Univers 00:00:00 00:00:00 Arik HEALTH 350.1.13.10 it y of [place] 4.2.7.2.686 Henry as DONTE?BLEA [id number] [address] 2021-12-22 2021-12-22 Telephone [facility] 1.2.840.114 [id number] Univers 00:00:00 00:00:00 [facility] 350.1.13.10 it y of [place] 4.2.7.2.686 Henry as DONTE?BLEA [id number] [address] MEDICAL OFFICE [facility] 2021-12-22 2021-12-22 Patient [facility] 1.2.840.114 [id number] Univers 00:00:00 00:00:[address] [facility] 350.1.13.10 ity of [place] 4.2.7.2.686 Henry as DONTE?BLEA [id number] [address] MEDICAL OFFICE [facility] 2021-12-04 2021-12-04 Refill [facility] 1.2.840.114 [id number] Univers 00:00:00 00:00:00 [facility] 350.1.13.10 it y of [place] 4.2.7.2.686 Henry as DONTE?BLEA [id number] [address] MEDICAL OFFICE [facility] 2021-11-26 2021-11-26 Outpatient R KIZZY SANTOS [facility] [id number] Univers 13:20:00 16:16:11 KIZZY SANTOS [facility] 2021-11-26 2021-11-26 Office Kizzy Santos [facility] 1.2.840.114 [id number] Univers 13:20:00 16:16:11 Visit [facility] 350.1.13.10 ity of [place].2.[place] [id number] [address] [facility] 2021-11-26 2021-11-26 Outpatient R KIZZY SANTOS [facility] [id number] Univers 13:20:00 16:16:11 KIZZY SANTOS [facility] 2021-11-26 2021-11-26 Outpatient R KIZZY SANTOS [facility] [id number] Univers 13:20:00 13:20:00 KIZZY SANTOS [facility] 2021-11-26 2021-11-26 Refill [facility] 1.2.840.114 [id number] Univers 00:00:00 00:00:00 [facility] 350.1.13.10 it y of [place] 4.2.7.2.686 Henry as DONTE?BLEA [id number] [address] MEDICAL OFFICE [facility] 2021-11-25 2021-11-25 Emergency X BRUN[place], [facility] ERT [id number] Univers 14:54:00 15:38:00 CHRISTOPHER it y of [facility] 2021-11-25 2021-11-25 [facility] 1.2.849.498 [id number] Univers 14:54:00 15:38:00 Christopher JOSELINE 350.1.13.10 ity of [place] 4.2.7.2.686 [place] [facility] [phone] [address] 2021-11-25 2021-11-25 Telephone [facility] 1.2.840.114 [id number] Univers 00:00:00 00:00:00 [facility] 350.1.13.10 it y of [place] 4.2.7.2.686 Henry as DONTE?BLEA [id number] [address] MEDICAL OFFICE [facility] 2021-11-25 2021-11-25 Patient [facility] 1.2.840.114 [id number] Univers 00:00:00 00:00:[address] [facility] 350.1.13.10 ity of [place] 4.2.7.2.686 Henry as DONTE?BLEA [id number] [address] OFFICE [facility] 2021-11-18 2021-11-18 Outpatient R [facility] [id number] Univers 14:00:00 14:24:37 ARIK ity [facility] 2021-11-18 2021-11-18 Office [facility] 1.2.840.114 [id number] Univers 14:00:00 14:15:[address] [facility] 350.1.13.10 it y of [place] 4.2.7.2.686 Henry as DONTE?BLEA [phone] Ia dread PRADHAN[address] OFFICE [facility] 2021-11-18 2021-11-18 Outpatient R DEMAR [facility] [id number] Univers 14:00:00 14:00:[address] [facility] 2021-11-11 2021-11-11 [facility] [id number] Univers 13:30:00 13:30:[address] [facility] 2021-11-03 2021-11-03 [facility] 1.2.840.114 [id number] Univers 00:00:00 00:00:00 [facility] 350.1.13.10 it y of [place]st[place] 4.2.7.2.686 Henry as DONTE?BLEA [id number] [address] 2021-10-27 2021-10-27 Patient Count includes the [facility] 1.2.840.114 [id number] Univers 00:00:00 00:00:00 Secure Msg [facility] 350.1.13.10 ity of [place] 4.2.7.2.686 Henry as DONTE?BLEA [phone] [address] 2021-10-15 2021-10-15 [facility] 1.2.840.114 [id number] Univers 00:00:00 00:00:00 Arik [place] 350.1.13.10 i ty of [place].7.2.686 [place] [id number] [address] 2021-10-14 2021-10-14 Outpatient [facility] [id number] Univers 14:00:00 14:00:[address] [facility] 2021-10-09 2021-10-09 [facility] 1.2.840.114 [id number] Univers 00:00:00 00:00:00 [facility] 350.1.13.10 it y of [place] 4.2.7.2.686 Henry as DONTE?BLEA [phone] [place] [address] [facility] OFFICE [facility] 2021-10-08 2021-10-08 [facility] 1.2.840.114 [id number] Univers 00:00:00 00:00:00 [facility] 350.1.13.10 it y of [place] 4.2.7.2.686 Henry as DONTE?BLEA [phone] Ia dread MELVIN [address] [place] [address] OFFICE [facility] 2021-10-07 2021-10-07 [facility] 1.2.840.114 [id number] Univers 00:00:00 00:00:00 [facility] HEALTH 350.1.13.10 it y of [place] 4.2.7.2.686 Henry as DONTE?BLEA [phone] Ia dread MELVIN [address] [place] [address] OFFICE [facility] 2021-10-02 2021-10-02 [facility] 1.2.840.114 [id number] Univers 00:00:00 00:00:00 [facility] 350.1.13.10 it y of [place] 4.2.7.2.686 Henry as DONTE?BLEA [phone] Ia dread MELVIN [address] [place] [address] OFFICE [facility] 2021-09-18 2021-09-18 Outpatient Campos MCCLAIN [facility] [id number] Univers 13:13:16 23:59:00 [facility] 2021-09-18 2021-09-18 [facility] [id number] Univers 14:30:00 15:00:00 Visit [facility] [id number] it y of [place] [id number] Henry as DONTE?BLEA [phone] Ia dread MELVIN [address] [facility] OFFICE [facility] 2021-09-18 2021-09-18 Outpatient Campos MCCLAIN [facility] [id number] Univers 14:30:00 14:03:55 [facility] 2021-09-18 2021-09-18 Outpatient Campos MCCLAIN [facility] [id number] Univers 14:30:00 14:03:55 [facility] 2021-09-18 2021-09-18 Outpatient R AMIE [facility] [id number] Univers 11:00:00 11:00:00 OLYA leonard [facility] 2021-09-18 2021-09-18 Outpatient R AMIE [facility] [id number] Univers 11:00:00 11:00:00 [facility] 2021-09-17 2021-09-17 Patient [facility] [id number] Univers 00:00:00 00:00:00 Secure Msg [facility] [id number] ity of [place] [id number] Henry as DONTE?BLEA [phone] [address] MEDICAL OFFICE [facility] 2021-09-12 2021-09-12 [facility] [id number] Univers 00:00:00 00:00:00 [facility] HEALTH [id number] it y of [place] [id number] Henry as DONTE?BLEA [phone] [address] MEDICAL OFFICE [facility] 2021-09-11 2021-09-11 Outpatient R SOLOMON [facility] [id number] Univers 14:00:00 14:00:00 OLIVA leonard [facility] 2021-09-11 2021-09-11 Outpatient R STEPHENS [facility] [id number] Univers 14:00:00 14:00:[address] [facility] 2021-09-11 2021-09-11 [facility] [id number] Univers 00:00:00 00:00:00 [facility] HEALTH [id number] it y of [place] [id number] Henry as DONTE?BLEA [phone] [address] MEDICAL OFFICE [facility] 2021-09-11 2021-09-11 [facility] [id number] Univers 00:00:00 00:00:00 [facility] HEALTH [id number] it y of [place] [id number] Henry as DONTE?BLEA [phone] Ia dread MELVIN [address] [place] MEDICAL OFFICE [facility] 2021-09-10 2021-09-10 Outpatient R HOLLOWAY, [facility] [id number] Univers 15:00:00 15:00:00 [facility] 2021-09-10 2021-09-10 Outpatient R HOLLOWAY [facility] [id number] Univers 15:00:00 15:00:00 [facility] 2021-09-03 2021-09-03 Outpatient R NATALY [facility] [id number] Univers 13:30:00 13:30:[address] 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 1.2.840.1 14 [id number] Univers 14:00:00 14:15:00 Visit Hectoryamilgage Arik [facility] 350.1.13 .10 ity of [place] 4.2.7.2.686 Henry as DONTE?BLEA [phone] Ia dread MELVIN [address] [place] MEDICAL OFFICE [facility] 2021-08-26 2021-08-26 [facility] 1.2.840.114 [id number] Univers 13:15:00 14:12:[address] [facility] 350.1.13.10 it y of [place] 4.2.7.2.686 Henry as DONTE?BLEA [phone] Ia dread MELVIN [address] [place] MEDICAL OFFICE [facility] 2021-08-26 2021-08-26 Outpatient Campos BENZ [facility] [id number] Univers 13:15:00 14:12:[address] [facility] 2021-08-26 2021-08-26 Outpatient Campos BENZ [facility] [id number] Univers 14:00:00 14:00:[address] [facility] 2021-08-26 2021-08-26 Outpatient Campos BENZ [facility] [id number] Univers 13:15:00 13:15:[address] [facility] 2021-08-21 2021-08-21 Patient Da Silva, [facility] 1.2.840.114 [id number] Univers 00:00:00 00:00:00 Secure Msg Nieto [facility] 350.1.13.10 ity of [facility] 4.2.7.2.686 Henry as DONTE?BLEA [id number] [address] OFFICE [facility] 2021-08-19 2021-08-19 Outpatient Campos BENZ [facility] [id number] Univers 08:00:00 08:00:00 General acute hospital 2021-08-19 2021-08-19 Refill Doctor [facility] 1..840.114 [id number] Univers 00:00:00 [facility]:00:[facility] 350.1.13.10 [place]y of [place] [facility] 4.2.7.2.686 Henry as DONTE?BLEA [id number] [address] 2021-08-19 2021-08-19 Telephone Demar [facility] 1..840.114 [id number] Univers 00:00:00 00:00:00 [facility] 350.1.13.10 it y of [place] 4.2.7.2.686 Henry as DONTE?BLEA [phone] [address] 2021-08-11 2021-08-11 Outpatient Campos BENZ [facility] [id number] Univers 15:00:00 15:00:[address] [facility] 2021-08-08 2021-08-08 Outpatient Campos BENZ [facility] [id number] Univers 15:00:00 15:00:[address] [facility] 2021-07-29 2021-07-29 [facility] [id number] Univers 13:00:00 13:00:[address] [facility] 2021-07-21 2021-07-21 [facility] .2.840.114 [id number] Univers 00:00:00 00:00:00 [facility] 350.1.13.10 it y of [place] 4.2.7.2.686 Henry as DONTE?BLEA [phone] Ia dread MELVIN [address] [place] [address] MEDICAL OFFICE BUILDING 2021-07-09 2021-07-09 [facility] [id number] Univers 13:00:00 13:00:00 General acute hospital 2021-07-09 2021-07-09 Outpatient R [facility] [id number] Univers 13:00:00 13:00:00 General acute hospital 2021-07-09 2021-07-09 [facility] [id number] Univers 13:00:00 13:00:00 General acute hospital 2021-07-09 2021-07-09 Outpatient R [facility] [id number] Univers 13:00:00 13:00:00 General acute hospital 2021-06-24 2021-06-24 Orders Doctor JUAN 1.2.840.114 [id number] Univers 00:00:00 00:00:00 Only Unassigned, SHYAY 350.1.13.10 ity of [place] [facility] 4.2.7.2.686 Henry as [phone] [address] 2021-05-22 2021-05-22 [facility] 1.2.840.114 [id number] Univers 00:00:00 00:00:00 [facility] 350.1.13.10 it y of [place] 4.2.7.2.686 Henry as PROFESSIO [phone] Ia dread COTE [address] [place] [address] OFFICE [facility] ONE 2021-05-17 2021-05-17 [facility] 1.2.840.114 [id number] Univers 00:00:00 00:00:00 [facility] 350.1.13.10 it y of [place] 4.2.7.2.686 Henry as PROFESSIO [phone] [address] ONE 2021-05-13 2021-05-13 [facility] 1.2.840.114 [id number] Univers 00:00:00 00:00:00 Secure Msg Arik ELLISON 350.1.13.10 ity of [place] 4.2.7.2.686 Henry as DONTE?BLEA [phone] Ia dread [address] MEDICAL OFFICE BUILDING 2021-05-09 2021-05-09 Transition KALYANI Rosenberg 1.2.840.114 [id number] Univers 00:00:00 00:00:00 of Care Trinidad Jones ELMA 350.1.13.10 i ty of [place].7.2.[place] [phone] [facility] [address] 2021-05-04 2021-05-08 Inpatient X [facility] MARGIE [id number] Univers 19:48:00 14:30:00 YOKO ity [facility] 2021-05-04 2021-05-08 [facility] Sean Meléndez 1.2.840. 114 [id number] Univers 19:48:00 14:30:00 Encounter Michelle Rivera 350.1.13 .10 ity of [facility] 4.2.7.2.686 [place] Yoko Bryant [phone] [place] [address] [place] 2021-05-04 2021-05-08 Inpatient X [facility] MARGIE [id number] Univers 19:48:00 14:30:00 [facility] 2021-05-07 2021-05-07 Outpatient R DEMAR [facility] [id number] Univers 15:00:00 15:00:00 ARIK ity [facility] 2021-05-01 2021-05-01 Outpatient Campos STEPHENS [facility] [id number] Univers 09:30:00 09:30:[address] [facility] 2021-04-30 2021-04-30 Patient Juma Mcdaniels [facility] CHRIS 1.2.840.114 [id number] Univers 00:00:00 00:00:00 Secure Msg JOSE 350.1.13.10 ity of [place].2.[place] [phone] [place] [address] [address] 2021-04-29 2021-04-29 Outpatient JUMA PALMER [facility] [id number] Univers 16:00:00 16:00:00 ity [facility] 2021-04-25 2021-04-25 Outpatient JUMA PALMER [facility] [id number] Univers 14:00:00 14:00:00 ity [facility] 2021-04-25 2021-04-25 Outpatient [facility] [id number] Univers 13:00:00 13:00:[address] [facility] 2021-04-24 2021-04-24 [facility] 1.2.840.114 [id number] Univers 00:00:00 00:00:00 Secure [facility] 350.1.13.10 ity of [place] 4.2.7.2.686 Henry as DONTE?BLEA [phone] [address] MEDICAL OFFICE [facility] 2021-04-24 2021-04-24 [facility] 1.2.840.114 [id number] Univers 00:00:00 00:00:00 [facility] 350.1.13.10 it y of [place] 4.2.7.2.686 Henry as DONTE?BLEA [phone] [address] OFFICE [facility] 2021-04-09 2021-04-09 Outpatient Davar_P VFP VFP [id number] [facility] 03:51:00 03:51:00 [id number] Family Practic e 2021-04-08 2021-04-08 [facility] 1.2.840.114 [id number] Univers 00:00:00 00:00:00 Secure [facility] 350.1.13.10 ity of [place] 4.2.7.2.686 Henry as DONTE?BLEA [phone] [address] MEDICAL OFFICE [facility] 2021-04-02 2021-04-02 Out[facility] [id number] Univers 14:00:00 14:29:[address] [facility] 2021-04-02 2021-04-02 Office [facility] 1.2.840.114 [id number] Univers 14:00:00 14:15:[address] [facility] 350.1.13.10 it y of [place] 4.2.7.2.686 Henry as DONTE?BLEA [phone] Ia nancydhruv PRADHANEY [address] [place] MEDICAL OFFICE [facility] 2021-04-02 2021-04-02 Out[facility] [id number] Univers 14:00:00 14:00:00 General acute hospital 2021-04-02 2021-04-02 Outpatient R [facility] [id number] Univers 14:00:00 14:00:00 General acute hospital 2021-04-02 2021-04-02 Outpatient R [facility] [id number] Univers 14:00:00 14:00:00 General acute hospital 2021-04-01 2021-04-01 [facility] 1.2.840.114 [id number] Univers 00:00:00 00:00:00 Oliva ANDERSONHIRA 350.1.13.10 i ty of [place].7.2.[place] [phone] Ia dread [facility] 188 [facility] 2021-03-30 2021-03-30 Nurse JUAN Darnell 1.2.840.114 [id number] Univers 00:00:00 00:00:00 Triage Dakotah GARAY 350.1.13.10 ity of [facility] 4.2.7.2.686 [place] as [phone] [address] 2021-03-28 2021-03-28 Outpatient R [facility] [id number] Univers 10:30:00 10:30:00 [facility] 2021-03-27 2021-03-27 Outpatient R [facility] [id number] Univers 15:00:00 15:00:00 [facility] 2021-03-27 2021-03-27 Patient [facility] 1.2.840.114 [id number] Univers 00:00:00 00:00:00 Secure Msg Elle Maria JOSELINE 350.1.13.10 ity of [place]2.7.2.686 [place] [id number] Ia dical NAL 134 [facility] 2021-03-27 2021-03-27 Case [facility] 1.2.840.114 [id number] Univers 00:00:00 00:00:00 Management Elle Maria JOSELINE 350.1.13.10 ity [facility] 4.2.7.2.686 [place] [phone] Ia dical NAL [address] [place] [address] 2021-03-25 2021-03-[address] [facility] [id number] Univers 15:15:00 15:15:00 ELLE [facility] 2021-03-23 2021-03-24 Inpatient X [facility] [id number] Univers 06:56:00 17:35:00 ELLE [facility] 2021-03-23 2021-03-24 [facility] 1.2.840.114 [id number] Univers 06:56:00 17:35:00 Encounter Elle TREVIZO 350.1.13.10 ity [facility] 4.2.7.2.686 [facility] [phone] [address] 2021-03-23 2021-03-23 Anesthesia [facility] 1.2.840.114 [id number] Univers 12:00:00 19:29:00 Event Subhash TREVIZO 350.1.13.10 i ty of [place] 4.2.7.2.686 [place] [phone] [address] 2021-03-23 2021-03-23 [facility] [id number] Univers 06:56:00 06:56:[address] [facility] 2021-03-23 2021-03-23 Nurse JUAN Cortes 1.2.840.114 [id number] Univers 00:00:00 00:00:00 Triage Renetta GARAY 350.1.13.10 it y of HOSPITAL 4.2.7.2.686 [place] as [phone] [facility] [address] [place] 2021-03-23 2021-03-23 Orders Doctor JUAN 1.2.840.114 [id number] Univers 00:00:00 00:00:00 Only Unassigned, SHAYY 350.1.13.10 ity of [place] HOSPITAL 4.2.7.2.686 [place] as [phone] [facility] [address] [place] 2021-03-14 2021-03-14 [facility] [id number] Univers 15:30:00 16:54:39 ELLE [facility] 2021-03-14 2021-03-14 Routine [facility] 1.2.840.114 [id number] Univers 15:30:00 16:54:39 Elle TREVIZO 350.1.13.10 ity of Visit [place]2.7.2.686 [place] [phone] Ia dical NAL [address] [place] [address] 2021-03-14 2021-03-[address] [facility] [id number] Univers 15:30:00 15:30:[address] [facility] 2021-03-12 2021-03-12 Outpatient P [facility] [id number] Univers 15:00:00 15:00:00 ity [facility] 2021-03-12 2021-03-12 Patient Doctor JUAN 1.2.840.114 [id number] Univers 00:00:00 00:00:00 Secure Msg Unassigned, SHAYY 350.1.13.10 ity of [place] [facility] 4.2.7.2.686 [place] as [phone] [facility] [address] [place] 2021-03-11 2021-03-11 Outpatient R DEMAR [facility] [id number] Univers 13:15:00 13:15:[address] [facility] 2021-03-11 2021-03-11 Outpatient R DEMAR [facility] [id number] Univers 13:15:00 13:15:[address] [facility] 2021-03-11 2021-03-11 Office [facility] 1.2.840.114 [id number] Univers 10:30:59 10:45:59 Visit Arik [facility] 350.1.13.10 it y of [place] 4.2.7.2.686 [place] as DONTE?BLEA [phone] [facility] [address] [place] MEDICAL OFFICE BUILDING 2021-03-09 2021-03-09 Outpatient X JUMA CMDANIELS [facility] [id number] Univers 09:27:00 12:30:00 ity of [facility] 2021-03-09 2021-03-09 Emergency Juma Mcdaniels [facility] 1.2.840.114 [id number] Univers 09:27:00 12:30:00 ANGLEHIR[place] 350.1.13.10 i ty of [place] 4.2.7.2.[place] [phone] [facility] [address] [place] 2021-03-09 2021-03-09 Nurse JUAN Cortes 1.2.840.114 [id number] Univers 00:00:00 00:00:00 Triage Renetta Ochoa SHAYY 350.1.13.10 it y of HOSPITAL 4.2.7.2.686 [place] as [phone] [facility] [address] [place] 2021-03-07 2021-03-07 [facility] 1.2.840.114 [id number] Univers 15:34:54 16:24:15 Elle TREVIZO 350.1.13.10 ity of Visit [place] 4.2.7.2.686 [place] [facility] [phone] Ia dicdhruv [facility] 134 [facility] 2021-03-07 2021-03-07 Outpatient R [facility] [id number] Univers 15:30:00 16:24:15 ELLE ity of [facility] 2021-03-07 2021-03-07 [facility] 1.2.840.114 [id number] Univers 00:00:00 00:00:00 Arik [facility] 350.1.13.10 it y of Joanthan [place] 4.2.7.2.686 [place] as DONTE?BLEA [phone] Me [address] OFFICE [facility] 2021-03-06 2021-03-06 [facility] 1.2.840.114 [id number] Univers 00:00:00 00:00:00 [facility] 350.1.13.10 it y of [facility] 4.2.7.2.686 [place] as DONTE?BLEA [phone] [address] 2021-03-04 2021-03-04 Outpatient P REESESAMEN [facility] [id number] Univers 00:27:00 14:38:00 ity of [facility] 2021-03-04 2021-03-04 [facility] ReeseChloe [facility] 1.2.840.114 [id number] Univers 00:27:00 14:38:00 Encounter [place] 350.1.13.10 ity of [place]2.7.2.[place] [phone] [address] 2021-02-27 2021-02-27 Refill [facility], [facility] 1.2.840.114 [id number] Univers 00:00:00 00:00:00 [facility] 350.1.13.10 it[place] of [place] 4.2.7.2.[place] [phone] [address] 2021-02-27 2021-02-27 Refill [facility] 1.2.840.114 [id number] Univers 00:00:00 00:00:00 Elle L [place] 350.1.13.10 ity of [place] 4.2.7.2.686 [place] [phone] [address] 2021-02-27 2021-02-27 Refill [facility] 1.2.840.114 [id number] Univers 00:00:00 00:00:00 Elle L [place] 350.1.13.10 ity of [place] 4.2.7.2.686 [place] [id number] [address] 2021-02-26 2021-02-26 Outpatient P ADUM, [facility] [id number] Univers 12:08:00 18:00:00 ELLE ity [facility] 2021-02-26 2021-02-26 Hospital [facility] 1.2.840.114 [id number] Univers 12:08:00 18:00:00 Encounter Elle TREVIZO 350.1.13.10 ity of [facility] 4.2.7.2.[place] [id number] [facility] [address] [place] 2021-02-26 2021-02-[address] [facility] [id number] Univers 16:00:00 16:00:00 ELLE ity [facility] 2021-02-26 2021-02-26 Telephone [facility] 1.2.876.668 [id number] Univers 00:00:00 00:00:00 Elle TREVIZO 350.1.13.10 ity of [place].2.[place] [id number] Ia dical NAL 134 [facility] 2021-02-14 2021-02-14 Telephone [facility] 1.2.840.114 [id number] Univers 00:00:00 00:00:00 [facility] 350.1.13.10 it y of [place] [facility] 4.2.7.2.686 [place] as DONTE?BLEA [phone] Ia dicdhruv [facility] [address] [place] MEDICAL OFFICE [facility] 2021-02-07 2021-02-07 Routine [facility] 1.2.840.114 [id number] Univers 15:39:01 16:45:30 Elle TREVIZO 350.1.13.10 ity of Visit [place] 4[place]2.7.2.686 [place] [phone] Ia dical NAL 134 [facility] 2021-02-07 2021-02-[address] [facility] [id number] Univers 15:30:00 16:45:30 ELLE ity [facility] 2021-02-06 2021-02-[address] 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 [id number] Univers 13:30:00 13:30:00 ELLE ellis [facility] 2021-02-03 2021-02-03 Telephone [facility] 1.2.840.114 [id number] Univers 00:00:00 00:00:00 [facility] 350.1.13.10 it y of Jonathan [facility] 4.2.7.2.686 [place] as DONTE?BLEA [phone] Ia dread [facility] 044 [facility] OFFICE [facility] 2021-01-31 2021-01-31 Outpatient P [facility] [id number] Univers 16:16:00 17:53:00 ELLE ity [facility] 2021-01-31 2021-01-31 [facility] 1.2.840.114 [id number] Univers 16:16:00 17:53:00 Encounter Elle TREVIZO 350.1.13.10 ity of [facility] 4.2.7.2.686 [place] [id number] [facility] [address] [place] 2021-01-31 2021-01-31 Outpatient R [facility] [id number] Univers 10:30:00 10:30:00 ARIK ity [facility] 2021-01-30 2021-01-30 Telephone [facility] 1.2.134.782 [id number] Univers 00:00:00 00:00:00 Elle TREVIZO 350.1.13.10 ity of [facility] 4.2.7.2.686 [place] [id number] [facility] 134 [facility] 2021-01-30 2021-01-30 [facility] 1.2.840.114 [id number] Univers 00:00:00 00:00:00 [facility] 350.1.13.10 it y of [place] 4.2.7.2.686 [place] as PROFESSIO [phone] [address] ONE 2021-01-29 2021-01-29 [facility] 1.2.840.114 [id number] Univers 00:00:00 00:00:00 [facility] 350.1.13.10 it y of [place] 4.2.7.2.686 Henry as PROFESSIO [phone] [address] 2021-01-27 2021-01-27 Outpatient R NATALY, [facility] [id number] Univers 13:00:00 13:00:00 TEO ity of [facility] 2021-01-27 2021-01-27 [facility] 1.2.840.114 [id number] Univers 00:00:00 00:00:00 [facility] 350.1.13.10 it y of [place] 4.2.7.2.686 Henry as PROFESSIO [phone] [address] ONE 2021-01-23 2021-01-23 Outpatient R ADUM, [facility] [id number] Univers 16:00:00 17:27:00 ELLE ity of [facility] 2021-01-23 2021-01-23 [facility]ine [facility] 1.2.840.114 [id number] Univers 15:56:29 17:27:00 Elle TREVIZO 350.1.13.10 ity of Visit [place].2.[place] [phone] Ia dical NAL 134 [facility] 2021-01-21 2021-01-21 Outpatient R ADUM, [facility] [id number] Univers 16:00:00 16:00:00 ELLE ity of [facility] 2021-01-17 2021-01-17 Telephone Ad, [facility] 1.2.310.397 [id number] Univers 00:00:00 00:00:00 Elle L [place] 350.1.13.10 ity of [place].2.7.2.686 [place] [phone] Ia dical nal [address] [place] [address] 2021-01-17 2021-01-17 Patient Adum, [facility] 1.2.840.114 [id number] Univers 00:00:00 00:00:00 Secure Msg Elle L [place] 350.1.13.10 ity of [place] 4.2.7.2.686 [place] [phone] Ia dical nal [address] [place] [address] 2021-01-15 2021-01-15 Refill [facility] 1.2.840.114 [id number] Univers 00:00:00 00:00:00 [facility] 350.1.13.10 it y of [place] 4.2.7.2.686 Henry as Professio [phone] Ia dical nal [address] [place] [address] One 2021-01-13 2021-01-13 Refill Ad, [facility] 1.2.840.114 [id number] Univers 00:00:00 00:00:00 Elle L [place] 350.1.13.10 ity of [place].2.7.2.686 [place] Profess[place] [phone] Ia dical nal 134 [facility] 2021-01-02 2021-01-02 Telephone Ad, [facility] 1.2.194.675 [id number] Univers 00:00:00 00:00:00 Elle L [place] 350.1.13.10 ity of [place] 4.2.7.2.686 [place] [phone] Ia dical nal 134 [facility] 2021-01-02 2021-01-02 Orders Doctor JUAN 1.2.840.114 [id number] Univers 00:00:00 00:00:00 Only Unassigned, SHAYY 350.1.13.10 ity of [place] [facility] 4.2.7.2.686 Henry as [id number] [address] 2021-01-01 2021-01-01 Telephone Adum, [facility] 1.2.584.459 [id number] Univers 00:00:00 00:00:00 Elle Trevizo 350.1.13.10 ity of [place] 4.2.7.2.686 [place] [phone] Ia dical nal 134 [facility] 2021-01-01 2021-01-01 Refill Doctor [facility] 1.2.840.114 [id number] Univers 00:00:00 00:00:00 Unassigned, Health 350.1.13.10 ity of [place] 4.2.7.2.686 [place] as Professio [phone] Ia dical [facility] [address] [place] Office [facility] One 2020-12-24 2020-12-24 Laboratory Only, Ang Db Test [facility] 1.2.8 40.114 [id number] Univers 17:40:30 17:55:30 Only Adum, Elle [facility] 350.1.13.10 ity of [place] 4.2.7.2.686 [place] as Donte?Blea [phone] [facility] estuardo 370 [facility] Office Building 2020-12-24 2020-12-24 Routine Adum, [facility] 1.2.840.114 [id number] Univers 16:33:12 17:22:08 Elle [place] 350.1.13.10 ity of [place].2.[place] [phone] Ia dical nal 134 [facility] 2020-12-24 2020-12-24 Outpatient R ADUM, [facility] [id number] Univers 16:00:00 16:00:00 ELLE ellis of [facility] 2020-12-17 2020-12-17 Patient [facility] 1.2.840.114 [id number] Univers 00:00:00 00:00:00 Secure Msg [facility] 350.1.13.10 ity of [place] 4.2.7.2.686 [place] as Professio [phone] [address] 2020-12-17 2020-12-17 Telephone [facility] 1.2.840.114 [id number] Univers 00:00:00 00:00:00 [facility] 350.1.13.10 it y of [place] 4.2.7.2.686 [place] as Donte?Blea [phone] [address] Office [facility] 2020-12-10 2020-12-10 Telephone [facility] 1.2.596.674 [id number] Univers 00:00:00 00:00:00 Elle [place] 350.1.13.10 [place].2.[place] [phone] [facility] 134 [facility] 2020-12-10 2020-12-10 Violetta Barrientos 1.2.840.114 [id number] Univers 00:00:00 00:00:00 Triage SHAYY 350.1.13.10 it y of HOSPITAL 4.2.7.2.686 [place] as [phone] [address] 2020-12-10 2020-12-10 Violetta Barrientos 1.2.840.114 [id number] Univers 00:00:00 00:00:00 Triage SHAYY 350.1.13.10 it y of HOSPITAL 4.2.7.2.686 [place] as [phone] [address] 2020-12-04 2020-12-04 Refill [facility] 1.2.840.114 [id number] Univers 00:00:00 00:00:00 [facility] 350.1.13.10 it y of [place] 4.2.7.2.686 [place] as Professio [phone] [address] One 2020-12-04 2020-12-04 [facility] 1.2.840.114 [id number] Univers 00:00:00 00:00:00 [facility] 350.1.13.10 it y of [place] 4.2.7.2.686 [place] as Professio [phone] [address] Office [facility] One 2020-12-03 2020-12-03 [facility] 1.2.840.114 [id number] Univers 00:00:00 00:00:00 [facility] 350.1.13.10 it y of [place] 4.2.7.2.686 [place] as Professio [phone] [address] One 2020-12-03 2020-12-03 [facility] 1.2.840.114 [id number] 509 Univers 00:00:00 00:00:00 [facility] Health 350.1.13.10 it y of [place] 4.2.7.2.686 [place] as Professio [phone] [address] One 2020-12-02 2020-12-02 [facility] 1.2.840.114 [id number] Univers 16:28:00 19:00:00 Encounter Cam [place] 350.1.13.10 ity of [place].2.[place] [phone] [place] [address] [place] 2020-12-02 2020-12-02 [facility] Chloe Reese [facility] 1.2.840.114 [id number] [id number] Univers 16:28:00 19:00:00 Encounter Cam [place] 350.1.13.10 ity of [place] [phone] [facility] [address] [place] 2020-12-02 2020-12-02 Nurse Ayaka Palacios 1.2.840.114 [id number] Univers 00:00:00 00:00:00 Triage SHAYY 350.1.13.10 it y of HOSPITAL 4.2.7.2.686 [place] as [phone] Medi [address] 2020-12-02 2020-12-02 Orders Doctor JUAN 1.2.840.114 [id number] Univers 00:00:00 00:00:00 Only Unassigned, SHAYY 350.1.13.10 ity of [place] [facility] 4.2.7.2.686 [place] as [phone] [address] 2020-12-02 2020-12-02 Refill Chloe Reese [facility] 1.2.585.795 [id number] 3124 Univers 00:00:00 00:00:00 Cam [place] 350.1.13.10 i ty of [place].2.[place].2.[place] [phone] Ia dical nal 134 [facility] 2020-12-02 2020-12-02 Refill Demar [facility] 1.2.840.114 [id number] Univers 00:00:00 00:00:00 [facility] 350.1.13.10 [facility] 4.2.7.2.686 [place] as Professio [phone] Ia dical [facility] [address] [place] Office Building One 2020-12-02 2020-12-02 Nurse Ayaka Palacios 1.2.840.114 [id number] Univers 00:00:00 00:00:00 Triage SHAYY 350.1.13.10 it y of HOSPITAL 4.2.7.2.686 [place] as [phone] [address] 2020-12-02 2020-12-02 Orders Doctor JUAN 1.2.840.114 [id number] Univers 00:00:00 00:00:00 Only Unassigned, SHAYY 350.1.13.10 ity of [place] HOSPITAL 4.2.7.2.686 Henry as [phone] [address] 2020-12-02 2020-12-02 Refill Chloe Reese [facility] 1.2.602.547 [id number] 3124 Univers 00:00:00 00:00:00 Cam [place] 350.1.13.10 i ty of [place] 4.2.[place].2.[place] [phone] Ia dical nal 134 [facility] 2020-12-022020-12-02 Madison Youngrita [facility] 1.2.840.114 [id number] Univers 00:00:00 00:00:00 [facility] 350.1.13.10 it y of st[place] 4.2.7.2.686 [place] as Professio [phone] [address] Office Building One 2020-12-01 2020-12-01 Ayaka Ennis 1.2.840.114 87 [id number] Univers 00:00:00 00:00:00 Triage SHAYY 350.1.13.10 it y of [facility] 4.2.7.2.686 Henry as [phone] [address] 2020-12-01 2020-12-01 Ayaka Ennis 1.2.840.114 87 [id number] Univers 00:00:00 00:00:00 Triage SHAYY 350.1.13.10 it y of [facility] 4.2.7.2.686 Henry as [phone] [address] 2020-11-27 2020-11-27 Outpatient R ADUM, [facility] [id number] Univers 14:00:00 14:00:00 ELLE ity of [facility] 2020-11-26 2020-11-26 Routine Adum, [facility] 1.2.840.114 [id number] Univers 15:59:55 17:26:28 Elle L [place] 350.1.13.10 ity of Visit [place] 4.2.7.2.686 [place] Profess[place] [phone] [address] 2020-11-26 2020-11-26 Routine Adum, [facility] 1.2.840.114 [id number] Univers 15:59:55 17:26:28 Elle L [place] 350.1.13.10 ity of Visit [place] 4.2.7.2.686 [place] Profess[place] [phone] [address] 2020-11-26 2020-11-26 Tracer Bullet Charging Machine Operator Ultrasound, [facility] 1.2 .840.114 [id number] Univers 14:06:00 15:21:00 Visit Adam Reich MANAGER OF CLINICAL 350.1.13.10 ity of REGIONAL 4.2.7.2.686 [place] as MATERNAL [phone] [facility] ical & CHILD [address] [place] [address] 2020-11-26 2020-11-26 Tracer Bullet Charging Machine Operator Ultrasound, Chandni [facility] 1.2 .840.114 [id number] Univers 14:06:00 15:21:00 Visit Adam Reich MANAGER OF CLINICAL 350.1.13.10 ity of REGIONAL 4.2.7.2.686 Henry as MATERNAL [phone] [facility] ical & CHILD [address] [place] [address] 2020-11-26 2020-11-26 Outpatient P [facility] [id number] Univers 14:00:00 14:00:00 ity of [facility] 2020-11-26 2020-11-26 Telephone [facility] 1.2.752.440 [id number] Univers 00:00:00 00:00:00 Elle [place] 350.1.13.10 ity of [place].2.[place].2.[place] [phone] Ia dical nal 134 [facility] 2020-11-26 2020-11-26 Telephone [facility] 1.2.592.330 [id number] 8898 Univers 00:00:00 00:00:00 Elle Candace AndersonLoach[place] 350.1.13.10 ity of [place].2.7.2.[place] [phone] Ia dical nal 134 [facility] 2020-11-18 2020-11-18 [facility] 1.2.840.114 [id number] 877 Univers 00:00:00 00:00:00 [facility] 350.1.13.10 it y of [place] 4.2.7.2.686 [place] as Professio [phone] Ia dical nal 044 [facility] One 2020-11-11 2020-11-11 Telephone [facility] 1.2.847.450 [id number] 2407 Univers 00:00:00 00:00:00 Elle L [place] 350.1.13.10 ity of [place].2.7.2.[place] [phone] Ia dical nal 134 [facility] 2020-11-09 2020-11-09 Hospital Chloe Reese [facility] 1.2.840.114 [id number] Univers 16:44:00 20:20:00 Encounter Raleigh Trevizo 350.1.13.10 ity of [place] 4.2.7.2.686 [place] [phone] [facility] [address] [place] 2020-11-09 2020-11-09 Nurse JUAN Chun 1.2.840.114 [id number] 994 Univers 00:00:00 00:00:00 Triage Karina ESTESY 350.1.13.10 it y of [facility] 4.2.7.2.686 [place] as [phone] [address] 2020-11-07 2020-11-07 Telephone [facility] 1.2.583.117 [id number] 9637 Univers 00:00:00 00:00:00 Elle Trevizo 350.1.13.10 ity of [place].2.7.2.[place] [phone] Ia dical nal 134 [facility] 2020-11-05 2020-11-05 Office [facility] 1.2.840.114 [id number] Univers 15:51:46 16:06:46 Visit [facility] 350.1.13.10 it y of Surgical 4.2.7.2.686 [place]nery as Specialti [phone] Ia dical es 198 [facility] 2020-11-05 2020-11-05 Out[facility] [id number] Univers 15:45:00 15:45:00 CARMEN ity of [facility] 2020-11-02 2020-11-02 JUAN Chun 1.2.840.114 [id number] Univers 00:00:00 00:00:00 Triage Helen GARAY 350.1.13.10 it y of [facility] 4.2.7.2.686 Henry as [phone] [address] 2020-11-02 2020-11-02 Telephone Juma Mcdaniels [facility] Chris 1.2.840.11 [id number] Univers 00:00:00 00:00:00 Jose 350.1.13.10 it y of Women's 4.2.[place].2.[place] Health [phone] [facility] [address] [place] 2020-10-29 2020-10-29 Tracer Bullet Charging Machine Operator 2, Adc Lab [facility] 1.2.840.114 [id number] Univers 14:07:34 14:22:34 Visit Adum, Elle Trevizo 350.1.13.10 ity of [place] 4.2.7.2.686 [place] [phone] Ia dical [facility] 353 [facility] 2020-10-29 2020-10-29 Outpatient R [facility] [id number] Univers 14:00:00 14:00:00 ity of [facility] 2020-10-29 2020-10-29 Madison Benz [facility] 1.2.840.114 [id number] Univers 00:00:00 00:00:00 [facility] 350.1.13.10 it y of [place] 4.2.7.2.686 [place] as Professio [phone] [facility] [address] [place] Office Building One 2020-10-29 2020-10-29 Orders Doctor JUAN 1.2.840.114 [id number] Univers 00:00:00 00:00:00 Only Unassigned, SHAYY 350.1.13.10 ity of [place] [facility] 4.2.7.2.686 Henry as [phone] [facility] [address] [place] 2020-10-25 2020-10-25 Routine Adum, [facility] 1.2.840.114 [id number] Univers 16:45:11 17:34:04 Elle Candace Trevizo 350.1.13.10 ity of Visit [place] 4.2.7.2.686 [place] [phone] Ia dical nal 134 [facility] 2020-10-25 2020-10-25 Outpatient R ADUM, [facility] [id number] Univers 16:15:00 16:15:00 ELLE ity of [facility] 2020-10-19 2020-10-19 Refdb [facility] 1.2.840.114 [id number] Univers 00:00:00 00:00:00 [facility] 350.1.13.10 it y of [place] 4.2.7.2.686 [place] as Professio [phone] [facility] [address] [place] Office Building One 2020-10-18 2020-10-18 Telemedici Fellow, [facility] U NIVERSIT 1.2.840.114 [id number] Univers 14:46:12 15:16:12 ne Visit Jet Shira Karen Lynch [facility] 350.1.13.10 ity of [facility] 4.2.7.2.686 [place] [phone] [facility] [address] [place] 2020-10-18 2020-10-18 Outpatient R [facility] [id number] Univers 13:30:00 13:30:00 ity of [facility] 2020-10-16 2020-10-16 Telephone [facility] 1.2.343.428 [id number] Univers 00:00:00 00:00:00 Elle Candace Trevizo 350.1.13.10 ity of [place] 4.2.7.2.686 [place] [phone] [facility] 134 [facility] 2020-10-16 2020-10-16 Telephone [facility] 1.2.021.888 [id number] Univers 00:00:00 00:00:00 Elle Maria [place] 350.1.13.10 ity of [place] 4.2.7.2.686 [place] [phone] [facility] 134 [facility] 2020-10-08 2020-10-08 Orders Doctor JUAN 1.2.840.114 [id number] Univers 00:00:00 00:00:00 Only Unassigned, SHAYY 350.1.13.10 ity of [place] [facility] 4.2.7.2.686 Henry as [phone] [facility] [address] [place] 2020-10-04 2020-10-04 Telemedici [facility] 1.2.840.114 [id number] Univers 08:16:56 08:46:56 ne Visit Alyssia Marx 350. 1.13.10 ity of CLINICS 4.2.7.2.686 [place] [phone] [address] 2020-10-04 2020-10-04 Outpatient R [facility] [id number] Univers 08:30:00 08:30:00 ity of [facility] 2020-10-02 2020-10-02 Telephone [facility] 1.2.840.114 [id number] Univers 00:00:00 00:00:00 [facility] 350.1.13.10 it y of [place] 4.2.7.2.686 [place] as Professio [phone] [facility] 044 [facility] 2020-09-27 2020-09-27 Routine [facility] 1..840.114 [id number] Univers 16:05:39 17:08:05 Elle Maria [place] 350.1.13.10 ity of Visit [place] 4.2.7.2.686 [place] Profess[place] [phone] [facility] 134 [facility] 2020-09-27 2020-09-27 [facility] [id number] Univers 16:00:00 16:00:00 [facility] 2020-09-25 2020-09-25 Telephone [facility] 1.2.840.114 [id number] Univers 00:00:00 00:00:00 [facility] 350.1.13.10 it y of [place] 4.2.7.2.686 [place] as Professio [phone] [facility] 044 [facility] 2020-09-24 2020-09-24 Outpatient R [facility] [id number] Univers 14:00:00 14:00:00 ELLE itleonard [facility] 2020-09-21 2020-09-21 Telemedici Myrtle Goldman [facility] 1.2.840 .114 [id number] Univers 17:30:22 18:00:22 ne Visit Unknown, [facility] 350.1.13.1 0 [facility] 4.2.7.2.686 [place] [facility] [phone] [facility] 2020-09-21 2020-09-21 Outpatient R DRE, [facility] [id number] Univers 17:30:00 17:30:00 ATTENDING ity [facility] 2020 2020 Outpatient R DEMAR [facility] [id number] Univers 16:15:00 16:15:00 ARIK ity [facility] 2020 2020 Telemedici [facility] 1.2.840.114 [id number] Univers 14:02:59 14:17:59 ne Visit [facility] 350.1.13.10 i ty of [place] 4.2.7.2.686 [place] as Professio [phone] [facility] [address] [place] Office [facility] One 2020 2020 Telephone [facility] 1.2.166.430 [id number] 6037 Univers 00:00:00 00:00:00 Elle Trevizo 350.1.13.10 ity of [place] 4.2.7.2.686 Henry[place] s Professio [phone] Ia dical nal 134 [facility] 2020-09-19 2020-09-19 Outpatient [facility] [id number] Univers 17:40:00 17:40:00 JAIDEN ity of [facility] 2020-09-19 2020-09-19 Outpatient R [facility] [id number] Univers 16:30:00 16:30:00 ity [facility] 2020-09-19 2020-09-19 Refill [facility] 1.2.840.114 [id number] Univers 00:00:00 00:00:00 [facility] 350.1.13.10 it y of [place] 4.2.7.2.686 [place] as Professio [phone] [facility] [address] [place] Office Building One 2020-09-19 2020-09-19 Nurse Martha Lang 1.2.840.114 [id number] Univers 00:00:00 00:00:00 Triage SHAYY 350.1.13.10 it y of HOSPITAL 4.2.7.2.686 Henry as [phone] [facility] [address] [place] 2020-09-19 2020-09-19 Nurse Violetta Clay 1.2.840.114 [id number] Univers 00:00:00 00:00:00 Triage SHAYY 350.1.13.10 it y of HOSPITAL 4.2.7.2.686 Henry as [phone] [facility] [address] [place] 2020-09-19 2020-09-19 Patient Ad, [facility] 1.2.840.114 [id number] Univers 00:00:00 00:00:00 Secure Msg Elle Candace Trevizo 350.1.13.10 ity of [place] 4[place]2.7.2.[place] [phone] Ia dicdhruv cote [address] Building 2020-09-19 2020-09-19 Telephone Clinic, [facility] UNIVERSIT 1.2.840.11 4 [id number] Univers 00:00:00 00:00:00 Neurology Y HEALTH 350.1.13.10 ity of Continuity CLINICS 4.2.7.2.686 [place] [phone] [facility] 093 [address] 2020-09-18 2020-09-18 Telephone Kalyani Martinez 1.2.516.850 [id number] Univers 00:00:00 00:00:00 Analilia Brooks 350.1.13.10 ity of [place] 4.2.7.2.686 [place] [phone] [facility] [address] 2020-09-18 2020-09-18 Telephone Demar [facility] 1.2.840.114 [id number] Univers 00:00:00 00:00:00 Arik [facility] 350.1.13.10 it y of [place] 4.2.7.2.686 [place] as Professio [phone] [facility] 0[address] Office Building One 2020-09-18 2020-09-18 Telephone [facility] 1.2.639.140 [id number] [id number] Univers 00:00:00 00:00:00 Elle Trevizo 350.1.13.10 ity of [place] 4.2.7.2.686 [place] Profess[place] [phone] Ia dicvalor [facility] 134 [address] Building 2020-09-08 2020-09-10 Hospital Tita Cortez 1.2.840.11 [id number] Univers 12:24:00 09:20:00 Encounter Migdalia Linares 350.1.13.10 ity of [facility] 4.2.7.2.686 Henry as [phone] [address] 2020-09-08 2020-09-08 Nurse JUAN Santos 1.2.840.114 [id number] Univers 00:00:00 00:00:00 Triage Rosy Obando SHAYY 350.1.13.10 ity of [facility] 4.2.7.2.686 [place] as [phone] [address] 2020-09-05 2020-09-05 Outpatient R MAO RODRIGUES [facility] [id number] Univers 14:30:00 14:30:00 ity of [facility] 2020-09-03 2020-09-03 [facility] 1.2.840.114 [id number] Univers 00:00:00 00:00:00 [facility] 350.1.13.10 it y of [place] 4.2.7.2.686 [place] as Professio [phone] [facility] [address] [place] Office Building One 2020-09-03 2020-09-03 Telephone [facility] 1.2.527.110 [id number] 4451 Univers 00:00:00 00:00:00 Elle Trevizo 350.1.13.10 ity of [place] 4.2.7.2.686 [place] [phone] Ia dical nal [address] [place] Building 2020-09-02 2020-09-02 Chloe Atkins [facility] 1.2.352.852 [id number] 3218 Univers 13:19:48 15:16:04 Raleigh Trevizo 350.1.13.10 ity of Visit [place] 4.2.7.2.686 [place] Profess[place] [phone] Ia dic[address] 2020-09-02 2020-09-02 Outpatient CHLOE HANNA [facility] [id number] Univers 13:15:00 13:15:00 ity of [facility] 2020-09-02 2020-09-02 Telephone Lexie [facility] 1.2.190.987 [id number] 0382 Univers 00:00:00 00:00:00 Elle Trevizo 350.1.13.10 ity of [place] 4.2.7.2.686 [place] [phone] [address] 2020-08-31 2020-08-31 Nurse Irina MARTINEZ 1.2.840.114 [id number] Univers 00:00:00 00:00:00 Triage SHAYY Guzman 350.1.13.10 ity of [facility] 4.2.7.2.686 Henry as [phone] [address] 2020-08-31 2020-08-31 JUAN Pelaez 1.2.840.114 [id number] Univers 00:00:00 00:00:00 Triage Cat Zandra SHAYY 350.1.13.10 i ty of [facility] 4.2.7.2.686 Henry as [phone] [address] 2020-08-30 2020-08-30 JUAN Pelaez 1.2.840.114 [id number] Univers 00:00:00 00:00:00 Triage Cat De Paz SHAYY 350.1.13.10 i ty of [facility] 4.2.7.2.686 Henry as [phone] [address] 2020-08-28 2020-08-29 Emergency Singer [facility] 1.2.717.400 [id number] 7327 Univers 20:20:00 00:01:00 Darryn Trevizo 350.1.13.10 i ty of [place] 4.2.7.2.686 [place] [phone] [place] [address] [place] 2020-08-27 2020-08-27 Tracer Bullet Charging Machine Operator 2, Adc Lab [facility] 1.2.840.114 [id number] Univers 15:18:51 15:33:51 Visit Adum, Elle [place] 350.1.13.10 ity of [place] 4.2.7.2.686 [place] Profess[place] [phone] Ia dical nal 353 [facility] 2020-08-27 2020-08-27 Routine Adum, [facility] 1.2.840.114 [id number] Univers 13:41:37 15:06:26 Elle [place] 350.1.13.10 ity of Visit [place] 4.2.7.2.686 [place] Profess[place] [phone] Ia dical nal 134 [facility] 2020-08-27 2020-08-27 [facility] [id number] Univers 14:15:00 14:15:00 ELLE ity of [facility] 2020-08-27 2020-08-27 Telephone [facility] 1.2.504.464 [id number] Univers 00:00:00 00:00:00 Elle [place] 350.1.13.10 ity of [place] 4.2.7.2.686 [place] [phone] Ia dic[address] 2020-08-22 2020-08-22 Outpatient R ONEL, [facility] [id number] Univers 19:20:00 19:20:00 CALEB ity of [facility] 2020-08-22 2020-08-22 Telephone [facility] 1.2.869.864 [id number] Univers 00:00:00 00:00:00 Elle [place] 350.1.13.10 ity of [place] 4.2.7.2.686 [place] [phone] Ia dical nal 134 [facility] 2020-08-22 2020-08-22 Telephone [facility] 1.2.781.207 [id number] 4399 Univers 00:00:00 00:00:00 Elle Maria [place] 350.1.13.10 ity of [place] 4.2.7.2.686 [place] Profess[place] [phone] Ia dic[address] 2020-08-19 2020-08-19 Refill Adum, [facility] 1.2.840.114 [id number] Univers 00:00:00 00:00:00 Elle Candace Trevizo 350.1.13.10 ity of [place] 4.2.7.2.686 [place] [phone] [address] 2020-08-09 2020-08-09 Outpatient R ADUM, [facility] [id number] Univers 14:30:00 14:30:00 ELLE ity [facility] 2020-08-06 2020-08-06 Initial Adum, [facility] 1.2.840.114 [id number] Univers 14:28:51 16:45:44 Elle Candace Trevizo 350.1.13.10 ity of Visit [place] 4.2.7.2.686 [place] Profess[place] [phone] [address] 2020-08-06 2020-08-06 Outpatient R ADUM, [facility] [id number] Univers 14:30:00 14:30:00 ELLE ity [facility] 2020-08-06 2020-08-06 Telephone Adum, [facility] 1.2.780.525 [id number] Univers 00:00:00 00:00:00 Elle Candace Trevizo 350.1.13.10 ity of [place] 4.2.7.2.[place] [phone] [address] 2020-08-06 2020-08-06 Orders Doctor JUAN 1.2.840.114 [id number] Univers 00:00:00 00:00:00 Only Unassigned, SHAYY 350.1.13.10 ity of [place] [facility] 4.2.7.2.686 Henry as [phone] [address] 2020-07-29 2020-07-29 [facility] 1.2.840.114 [id number] Univers 00:00:00 00:00:00 [facility] 350.1.13.10 it y of [place] 4.2.7.2.686 [place] as Professio [phone] [address] One 2020-07-29 2020-07-29 [facility] 1.2.840.114 [id number] Univers 00:00:00 00:00:00 [facility] 350.1.13.10 it y of [place] 4.2.7.2.686 [place] as Professio [phone] [address] Office [facility] One 2020-07-22 2020-07-22 Outpatient R [facility], [facility] [id number] Univers 19:00:00 19:00:00 IAIN blue [facility] 2020-07-16 2020-07-16 [facility] 1.2.840.114 [id number] Univers 00:00:00 00:00:00 [facility] 350.1.13.10 it y of [place] 4.2.7.2.686 [place] as Professio [phone] [address] One 2020-07-06 2020-07-06 [facility] 1.2.840.114 [id number] Univers 00:00:00 00:00:00 [facility] 350.1.13.10 it y of [place] 4.2.7.2.686 [place] as Professio [phone] [address] One 2020-07-01 2020-07-01 [facility] 1.2.840.114 [id number] Univers 00:00:00 00:00:00 [facility] 350.1.13.10 it y of [place] 4.2.7.2.686 [place] as Professio [phone] [address] One 2020-06-21 2020-06-21 Outpatient R DULCE III, [facility] [id number] Univers 16:15:00 16:15:00 ARIK ellis [facility] 2020-06-19 2020-06-19 Jitendra MARTINEZ 1.2.840.114 [id number] Univers 00:00:00 00:00:00 Only Unassigned, SHAYY 350.1.13.10 [facility] 4.2.7.2.686 [place] as [phone] [address] 2020-06-11 2020-06-11 Office [facility] 1.2.840.114 [id number] Univers 15:35:12 15:50:12 Visit [facility] [id number] it y of [place] 4.2.7.2.686 [place] as Professio [phone] [address] One 2020-06-11 2020-06-11 Outpatient R [facility] [id number] Univers 15:30:00 15:30:00 General acute hospital 2020-05-30 2020-05-30 [facility] 1.2.840.114 [id number] Univers 00:00:00 00:00:00 [facility] [id number] it y of [facility] 4.2.7.2.686 [place] Professio [phone] [address] 2020-05-27 2020-05-27 [facility] 1.2.840.114 [id number] Univers 00:00:00 00:00:00 [place] 350.1.13.10 [place] 4[place]2.7.2.686 [place] [phone] [facility] 2020-05-02 2020-05-02 Outpatient R [facility] [id number] Univers 09:50:00 09:50:00 General acute hospital 2020-05-02 2020-05-02 [facility] 1.2.840.114 [id number] Univers 08:42:09 08:52:09 ne Visit [facility] 350.1.13.10 i ty of [place] 4.2.7.2.686 [place] as Professio [phone] [place] [address] 2020-05-02 2020-05-02 [facility] 1.2.840.114 [id number] Univers 00:00:00 00:00:00 [facility] 350.1.13.10 it y of [place] 4.2.7.2.686 [place] as Professio [phone] [place] dic[address] Office [facility] One 2020-05-02 2020-05-02 [facility] 1.2.840.114 [id number] Univers 00:00:00 00:00:00 [facility] 350.1.13.10 it y of [place] 4.2.7.2.686 [place] as Professio [phone] [address] Office [facility] One 2020-05-02 2020-05-02 [facility] 1.2.840.114 [id number] Univers 00:00:00 00:00:00 [facility] 350.1.13.10 it y of [place] 4.2.7.2.686 Henry as Professio [phone] Ia dicme nal [address] [place] [address] Office [facility] One 2020-05-01 2020-05-01 Emergency [facility] 1.2.516.124 [id number] Univers 18:59:00 21:44:00 Juma Trevizo 350.1.13.10 i ty of [place] 4.2.7.2.686 [facility] [phone] [facility] [address] [place] 2020-04-28 2020-04-28 [facility] 1.2.840.114 [id number] Univers 00:00:00 00:00:00 [facility] 350.1.13.10 it y of [place] 4.2.7.2.686 [place] as Professio [phone] Ia dicme nal [address] [place] [address] Office [facility] One 2020-04-22 2020-04-22 [facility] 1.2.840.114 [id number] Univers 06:54:00 08:09:00 Encounter Aly Trevizo 350.1.13.10 ity of [place].2.[place].2.686 [place] [phone] [facility] [address] 2020-04-19 2020-04-19 [facility] [id number] Univers 13:00:00 13:00:00 ALY itleonard [facility] 2020-04-12 2020-04-12 [facility] 1.2.840.114 [id number] Univers 00:00:00 00:00:00 [facility] 350.1.13.10 it y of [place] 4.2.7.2.686 [place] as Professio [phone] [address] One 2020-04-11 2020-04-11 Outpatient R [facility] [id number] Univers 10:30:00 10:30:00 General acute hospital 2020-04-11 2020-04-11 Telemedici [facility] 1.2.840.114 [id number] Univers 07:27:09 07:42:09 ne Visit [facility] 350.1.13.10 i ty of [place] 4.2.7.2.686 [place] as Professio [phone] [address] One 2020-04-11 2020-04-11 Telephone [facility] 1.2.840.114 [id number] Univers 00:00:00 00:00:00 [facility] 350.1.13.10 it y of [place] 4.2.7.2.686 [place] as Professio [phone] [address] One 2020-04-09 2020-04-09 Outpatient [facility] [id number] Univers 13:00:00 13:00:[address] [facility] 2020-04-08 2020-04-08 [facility] 1.2.840.114 [id number] Univers 06:58:00 08:24:00 Encounter Aly Andersonton 350.1.13.10 ity of [place].2.[place] [phone] [facility] [address] 2020-04-08 2020-04-08 Orders Doctor JUAN 1.2.840.114 [id number] Univers 00:00:00 00:00:00 Only Unassigned, SHAYY 350.1.13.10 ity of [place] [facility] 4.2.7.2.686 Henry as [phone] [facility] 009 Branch 2020-04-05 2020-04-05 Outpatient R SHELBY [facility] [id number] Univers 13:45:00 13:45:00 ALY ity of [facility] 2020-04-05 2020-04-05 Tracer Bullet Charging Machine Operator Danette, Adc Lab Main [facility] 1.2.8 40.114 [id number] Univers 11:46:35 12:01:35 Visit Aly Ryan 350.1.13.1 0 ity of [place].2.7.2.[place] [phone] Ia dical nal [address] Building 2020-04-05 2020-04-05 Laboratory Only, Adc Test [facility] 1.2.840. 114 [id number] Univers 11:44:14 11:59:14 Only Aly Ryan 350.1.13.1 0 ity of [place] 4.2.7.2.686 [place] [phone] [facility] [address] 2020-04-05 2020-04-05 Orders Doctor JUAN 1.2.840.114 [id number] Univers 00:00:00 00:00:00 Only Unassigned, SHAYY 350.1.13.10 ity of [place] [facility] 4.2.7.2.686 Henry as [phone] [facility] 00[address] 2020-04-05 2020-04-05 Telephone [facility] 1.2.840.114 [id number] Univers 00:00:00 00:00:00 [facility] 350.1.13.10 it y of [place] 4.2.7.2.686 [place] as Professio [phone] Ia dicvalor health [address] Office Building One 2020-04-04 2020-04-04 Telephone [facility] 1.2.840.114 [id number] Univers 00:00:00 00:00:00 [facility] 350.1.13.10 it y of [place] 4.2.7.2.686 [place] as Professio [phone] [address] Office Building One 2020-04-04 2020-04-04 Patient [facility] 1.2.840.114 [id number] Univers 00:00:00 00:00:00 Secure Msg [facility] 350.1.13.10 ity of [place] 4.2.7.2.686 [place] as Professio [phone] [address] Office [facility] One 2020-04-03 2020-04-03 Office [facility] 1.2.840.114 [id number] 814 Univers 15:00:34 15:15:34 Visit [facility] 350.1.13.10 it y of [place] 4.2.7.2.686 [place] as Professio [phone] [address] Office [facility] One 2020-04-03 2020-04-03 Outpatient R [facility] [id number] Univers 14:45:00 14:45:00 ARIK ity of [facility] 2020-04-03 2020-04-03 Telephone [facility] 1.2.840.114 [id number] Univers 00:00:00 00:00:00 [facility] 350.1.13.10 it y of [place] 4.2.7.2.686 [place] as Professio [phone] [address] Office [facility] One 2020-04-03 2020-04-03 Telephone [facility] 1.2.840.114 [id number] Univers 00:00:00 00:00:00 [facility] 350.1.13.10 it y of [place] 4.2.7.2.686 [place] as Professio [phone] [address] Office Building One 2020-03-25 2020-03-25 [facility] 1.2.840.114 [id number] Univers 08:02:00 10:10:00 Encounter Aly Obando Joseline 350.1.13.10 ity of [place]2.7.2.686 [place] [phone] [facility] [address] [place] 2020-03-25 2020-03-25 Orders Doctor JUAN 1.2.840.114 [id number] Univers 00:00:00 00:00:00 Only Unassigned, SHAYY 350.1.13.10 ity of [facility] 4.2.7.2.686 Henry as [phone] [facility] [address] [place] 2020-03-25 2020-03-25 Nurse Irina MARTINEZ 1.2.840.114 [id number] Univers 00:00:00 00:00:00 Triage SHAYY Guzman 350.1.13.10 ity of [facility] 4.2.7.2.686 [place] as [phone] [facility] [address] [place] 2020-03-20 2020-03-20 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 114 [id number] Univers 11:43:13 11:58:13 Only Shelby Aly Aggie [place] 350.1.13.1 0 ity of [place] 4.2.7.2.686 [place] [phone] [address] 2020-03-20 2020-03-20 Outpatient R SHELBY [facility] [id number] Univers 11:15:00 11:15:00 ALY ity of [facility] 2020-03-20 2020-03-20 Orders Doctor MARTINEZ 1.2.840.114 [id number] Univers 00:00:00 00:00:00 Only UnassSHAYY ortega 350.1.13.10 ity of [place] [facility]OSPITAL 4.2.7.2.686 Henry as [phone] [address] 2020-03-12 2020-03-12 Office [facility] 1.2.840.114 [id number] [id number] Univers 14:07:40 14:22:40 Visit [facility] 350.1.13.10 it y of [place] 4.2.7.2.686 [place] as Professio [phone] [address] Office [facility] One 2020-03-12 2020-03-12 Outpatient R [facility] [id number] Univers 14:15:00 14:15:[address] [facility] 2020-03-12 2020-03-12 Nurse JUAN Chun 1..840.114 [id number] Univers 00:00:00 00:00:00 Triage Karina GARAY 350.1.13.10 it y of HOSPITAL 4.2.7.2.686 [place] as [phone] [address] 2020-03-12 2020-03-12 Telephone [facility] 1.2.840.114 [id number] Univers 00:00:00 00:00:00 [facility] 350.1.13.10 it y of [place] 4.2.7.2.686 [place] as Professio [phone] [address] One 2020-02-14 2020-02-14 [facility] [id number] Univers 15:30:00 15:30:00 ELLE ellis [facility] 2020-02-12 2020-02-12 Refill [facility] 1..840.114 [id number] Univers 00:00:00 00:00:00 [facility] 350.1.13.10 it y of [place] 4.2.7.2.686 [place] as Professio [phone] [address] Office [facility] 2020-01-29 2020-01-29 Telephone [facility] 1.2.840.114 [id number] Univers 00:00:00 00:00:00 [facility] Health 350.1.13.10 it y of [place] 4.2.7.2.686 [place] as Professio [phone] Ia dical nal [address] [place] [address] 2020-01-29 2020-01-29 Refill Demar [facility] 1.2.840.114 [id number] Univers 00:00:00 00:00:00 Arik [facility] 350.1.13.10 it y of [place] 4.2.7.2.686 [place] as Professio [phone] [address] 2020-01-26 2020-01-26 Outpatient R DEMAR [facility] [id number] Univers 16:00:00 16:00:[address] [facility] 2020-01-26 2020-01-26 Tracer Bullet Charging Machine Operator Lab, [facility] Fam Pob I [facility] 1.2. 840.114 [id number] Univers 09:09:02 09:16:47 Visit Arik Ben[facility] 350.1.13 .10 ity of [place] 4.2.7.2.686 [place] as Professio [phone] [address] 2020-01-26 2020-01-26 Office [facility] 1.2.840.114 [id number] Univers 08:16:33 08:31:33 Visit Arik [facility] 350.1.13.10 it y of [place] 4.2.7.2.686 [place] as Professio [phone] Ia dical nal [address] [place] [address] 2020-01-26 2020-01-26 Out[facility] [id number] Univers 08:30:00 08:30:[address] [facility] 2020-01-25 2020-01-25 Office [facility] 1.2.666.047 [id number] Univers 15:25:26 16:55:28 Visit Teoalvaro Trevizo 350.1.13.10 i ty of [place] 4.2.7.2.686 [place] [phone] Ia [facility] 134 [facility] 2020-01-25 2020-01-25 Outpatient R NATALY [facility] [id number] Univers 15:30:00 15:30:00 TEO ellis [facility] 2020-01-24 2020-01-24 Outpatient R JUMA MCDANIELS [facility] [id number] Univers 14:30:00 14:30:00 ity of [facility] 2020-01-18 2020-01-18 Refill Doctor UNIVERSIT 1.2.176.834 [id number] Univers 00:00:00 00:00:00 Unassigned, Y HEALTH 350.1.13.10 ity of [place] [facility] 4.2.7.2.686 [place] [phone] [address] 2020-01-15 2020-01-15 Refill [facility] 1.2.840.114 [id number] Univers 00:00:00 00:00:00 Maximus Trevizo 350.1.13.10 i ty of [place] 4.2.7.2.686 [place] [phone] Ia dicme nal 044 [facility] 2020-01-12 2020-01-12 Refill Naseem [facility] 1..840.114 [id number] Univers 00:00:00 00:00:00 Grant Trevizo 350.1.13.10 ity of [place] 4.2.7.2.686 [place] [phone] [address] 2019-12-15 2019-12-15 Outpatient R UCHEELEANOR, [facility] [id number] Univers 13:00:00 13:00:00 ELLE ity of [facility] 2019-11-07 2019-11-17 Office Elvin [facility] 1.2.840.114 [id number] Univers 14:01:04 14:03:23 Visit Justin Trevizo 350.1.13.10 ity of [place] 4.2.7.2.686 [place] [phone] Ia dical nal 044 [facility] 2019-11-17 2019-11-17 Case [facility] 1.2.840.114 [id number] Univers 00:00:00 00:00:00 Management Wonpeter Trevizo 350.1.13.10 ity of [place] 4.2.7.2.686 [place] [phone] Ia dical nal 044 [facility] 2019-11-14 2019-11-14 Outpatient R HECOTRYAMILGAGE, [facility] [id number] Univers 16:30:00 16:30:00 ARIK ellis [facility] 2019-11-10 2019-11-10 Telephone [facility] 1.2.840.114 [id number] Univers 00:00:00 00:00:00 Grant Trevizo 350.1.13.10 ity of [place] 4.2.7.2.686 [place] [phone] Ia dicme nal 092 [facility] 2019-11-10 2019-11-10 Refill [facility] 1.2.840.[address] [place] [address] 00:00:00 00:00:00 Grant Trevizo 350.1.13.10 ity of [place] 4.2.7.2.686 [place] [phone] Ia dicme nal 092 [facility] 2019-11-08 2019-11-08 Outpatient Asplin_B VFP VFP [id number] 1-20 [facility] 11:44:00 11:44:00 [id number] Family Practic e 2019-11-08 2019-11-08 Telephone [facility] 1.2.840.114 [id number] [facility] 00:00:00 00:00:00 Grant Trevizo 350.1.13.10 ity of [place] 4.2.7.2.686 [place] [phone] Ia dicme nal 092 [facility] 2019-11-07 2019-11-07 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 10 ity of [place] 4.2.7.2.686 [place] [phone] Ia dicme nal 353 [facility] 2019-11-07 2019-11-07 Outpatient R ELVIN [facility] [id number] Univers 13:45:00 13:45:00 JUSTIN ellis o art [facility] 2019-11-05 2019-11-05 Outpatient Campos CORADO [facility] [id number] Univers 16:20:00 16:20:00 CALEB ity of [facility] 2019-11-05 2019-11-05 Nurse JUAN Santos 1.2.840.114 [id number] Univers 00:00:00 00:00:00 Triage Rosy GARAY 350.1.13.10 ity of [facility] 4.2.7.2.686 Henry as [phone] [facility] [address] [place] 2019-11-03 2019-11-03 Madison Gusman [facility] 1.2.840.114 [id number] Univers 00:00:00 00:00:00 [facility] 350.1.13.10 ity of CLINICS 4.2.7.2.686 [place] [phone] [facility] [address] [place] 2019-11-02 2019-11-02 Patient [facility] 1.2.840.114 [id number] Univers 00:00:00 00:00:00 Secure Msg Justin Trevizo 350.1.13.10 ity of [place] 4.2.7.2.686 [place] [facility] [phone] Ia dicvalor health 044 [facility] 2019-11-01 2019-11-01 Transition Kalyani Dubois 1.2.840.114 [id number] [id number] Univers 00:00:00 00:00:00 of Care Edna Brooks 350.1.13.10 ity of [place] 4.2.7.2.686 [place] [phone] [facility] [address] [place] 2019-10-31 2019-10-31 Emergency [facility] 1.2.319.781 [id number] [id number] Univers 16:01:00 18:16:00 Leroy Trevizo 350.1.13.10 i ty of [place] 4.2.7.2.686 [place] [phone] [place] [address] [place] 2019-10-31 2019-10-31 Telemedici Beth Kang [facility] 1.2.840 .114 [id number] Univers 05:43:53 13:27:24 ne Visit Unknown, Attending SPECIALTY 350.1.13 .10 ity of CARE 4.2.7.2.686 [place] C[place] AT [phone] Ia dread MESSER 370 [facility] 2019-10-31 2019-10-31 Outpatient R UNKNOWN, [facility] [id number] Univers 10:00:00 10:00:00 ATTENDING ity of [facility] 2019-10-31 2019-10-31 Telephone [facility] 1.2.153.650 [id number] Univers 00:00:00 00:00:00 [facility] 350.1.13.10 it y of [place] 4.2.7.2.686 [place] as Professio [phone] Ia dread cote [address] [place] Office [facility] 2019-10-30 2019-10-30 Telephone [facility] 1.2.904.603 [id number] Univers 00:00:00 00:00:00 [facility] 350.1.13.10 it y of [place] 4.2.7.2.686 [place] as Professio [phone] Ia nancyme ayaan [address] [place] [address] 2019-10-29 2019-10-29 Emergency [facility] 1.2.314.530 [id number] Univers 20:08:00 22:13:00 Jane Trevizo 350.1.13.10 ity of [place] 4.2.7.2.686 [facility] [phone] [address] 2019-10-29 2019-10-29 Telemedici Care, Provider 12 - Adult U [facility] 1.2.840.114 [id number] Univers 18:20:00 18:40:00 ne Visit Unknown, Attending HEALTH 350.1.13.1 0 ity of [place] 4.2.7.2.686 [facility] [phone] [address] ([facility]) 2019-10-29 2019-10-29 Outpatient R UNKNOWN, [facility] [id number] Univers 18:20:00 18:20:00 ATTENDING ity of [facility] 2019-10-25 2019-10-25 Telephone [facility] 1.2.284.673 [id number] Univers 00:00:00 00:00:00 [facility] 350.1.13.10 it y of [place] 4.2.7.2.686 [place] as Professio [phone] [address] Office [facility] 2019-10-25 2019-10-25 Refdb [facility]UN[facility] 1.2.840.114 [id number] Univers 00:00:00 00:00:00 Maximus Joseline 350.1.13.10 i ty of [place] 4.2.7.2.686 [place] [phone] [address] 2019-10-24 2019-10-24 [facility] 1.2.840.114 [id number] Univers 16:15:00 23:59:00 Encounter Ticozandra Trevizo 350.1.13.10 ity of [place] 4.2.7.2.686 [place] [phone] [facility] [address] [place] [address] 2019-10-24 2019-10-24 Urgent Provider, [facility]gent Care [facility] 1.2.840.114 [id number] Univers 15:17:27 15:37:27 Care [facility] 350.1.13.10 ity of [place] 4.2.7.2.686 [place] as Professio [phone] [address] Office [facility] 2019-10-24 2019-10-24 Out[facility] [id number] Univers 15:20:00 15:20:00 TICO ity of [facility] 2019-10-24 2019-10-24 Telephone [facility] 1.2.370.116 [id number] Univers 00:00:00 00:00:00 Tico Joseline 350.1.13.10 i ty of [place] 4.2.7.2.686 [place] Profess[place] [phone] [address] 2019-10-23 2019-10-23 Outpatient Asplin_B VFP VFP [id number] 20 [place] 11:19:00 11:19:00 [id number] Family Practic e 2019-10-10 2019-10-10 Telephone [facility] 1.2.840.114 [id number] Univers 00:00:00 00:00:00 Aly S PRIMARY 350.1.13.10 i ty of CARE 4.2.7.2.686 [place] [phone] Ia dical [address] [place] 2019-09-26 2019-09-26 Refdb Chi [facility] 1.2.840.114 [id number] Univers 00:00:00 00:00:00 Ticosada Trevizo 350.1.13.10 i ty of [place] 4.2.7.2.686 [place] [phone] Ia dicme nal 044 [address] Building 2019-09-16 2019-09-16 Outpatient R ONEL [facility] [id number] Univers 16:40:00 16:40:[address] [facility] 2019-09-16 2019-09-16 Outpatient Asplin_B VFP VFP [id number] 04-17 Village 10:07:00 10:07:00 [id number] Family Practic e 2019-09-15 2019-09-15 Outpatient R PAMELA [facility] [id number] Univers 17:00:00 17:00:00 [facility]UL[facility]AWARASHMI [facility] 2019-09-08 2019-09-08 Telephone JUAN Chi 1.2.409.244 [id number] Univers 00:00:00 00:00:00 Ticosada GARAY 350.1.13.10 it y of HOSPITAL 4.2.7.2.686 [place] as [phone] [address] 2019-09-08 2019-09-08 Patient Doctor JUAN 1.2.840.114 [id number] Univers 00:00:00 00:00:00 Secure Msg UnassignedSHAYY 350.1.13.10 ity of [place] [facility] 4.2.7.2.686 Henry as [phone] [address] 2019-09-06 2019-09-06 Urgent Pob1, Acute Care Clinic [facility] 1. 2.840.114 [id number] Univers 16:19:19 16:39:19 Care Aparna Reed [facility] 350.1.13.10 ity of [place] 4.2.7.2.686 [place] as Professio [phone] Ia dicme nal [address] [place] Office Building One 2019-09-06 2019-09-06 Outpatient R [facility] [id number] Univers 16:20:00 16:20:00 ity of [facility] 2019-09-06 2019-09-06 Outpatient R [facility] [id number] Univers 11:20:00 11:20:00 ity of [facility] 2019-09-06 2019-09-06 Patient Doctor JUAN 1.2.840.114 [id number] Univers 00:00:00 00:00:00 Secure Msg Unassigned, SHAYY 350.1.13.10 ity of [facility] 4.2.7.2.686 Henry as [phone] [facility] 0[address] 2019-08-23 2019-08-23 Outpatient R NASEEMGRANT Tejeda [facility] [id number] Univers 15:00:00 15:00:00 GRANT GUSMAN ity of [facility] 2019-08-23 2019-08-23 Telemedici ROSEMARY GusmanIT 1.2.840.114 [id number] Univers 08:11:53 08:41:53 ne Visit [facility] 350.1.13.10 ity of CLINICS 4.2.7.2.[place] [phone] [facility] [address] [place] 2019-08-20 2019-08-20 Outpatient R HOLLOWAY, [facility] [id number] Univers 17:00:00 17:00:00 MURALI ity of [facility] 2019-08-15 2019-08-15 Transition Kalyani Dubois 1.2.840.114 [id number] Univers 00:00:00 00:00:00 of Care Edna Brooks 350.1.13.10 ity of [place] 4.2.7.2.686 [place] [phone] [facility] [address] 2019-08-13 2019-08-13 Emergency Medhat [facility] 1.2.412.257 [id number] Univers 18:39:45 20:15:00 Sean Trevizo 350.1.13.10 ity of [place]2.7.2.686 [place] [phone] [facility] 084 [address] 2019-08-13 2019-08-13 Orders Doctor JUAN 1.2.840.114 [id number] Univers 00:00:00 00:00:00 Only Unassigned, SHAYY 350.1.13.10 ity of [place] [facility] 4.2.7.2.686 Henry as [phone] [address] 2019-08-01 2019-08-01 Telephone [facility] 1.2.840.114 [id number] Univers 00:00:00 00:00:00 Grant Trevizo 350.1.13.10 ity of [place]2.7.2.[place] Profess[place] [phone] Ia dical nal 092 [facility] 2019-07-25 2019-07-25 Outpatient R NATALY [facility] [id number] Univers 15:00:00 15:00:00 TEO ity [facility] 2019-07-16 2019-07-16 Dixon [facility] 1.2.298.029 [id number] Univers 00:00:00 00:00:00 Tico Trevizo 350.1.13.10 i ty of [place].2.7.2.[place] Profess[place] [phone] Ia dical nal 044 [facility] 2019-07-11 2019-07-11 Dixon [facility] 1.2.193.895 [id number] 0542 Univers 00:00:00 00:00:00 [facility] 350.1.13.10 it y of [place] 4.2.7.2.686 [place] as Professio [phone] Ia dical nal [address] [place] Office [facility] 2019-06-20 2019-06-20 Telephone [facility] 1.2.210.867 [id number] Univers 00:00:00 00:00:00 [facility] 350.1.13.10 it y of [place] 4.2.7.2.686 Henry as Professio [phone] Ia dical nal 0[address] [place] Office [facility] 2019-06-16 2019-06-16 Tele[facility] 1.2.840.114 [id number] Univers 00:00:00 00:00:00 Grant Trevizo 350.1.13.10 ity of [place].2.[place] [phone] [place] dicme nal 092 [facility] 2019-06-14 2019-06-14 Outpatient R TREY [facility] [id number] Univers 12:43:28 23:59:00 KYA ity o f [facility] 2019-06-14 2019-06-14 [facility] 1.2.840.114 [id number] Univers 12:30:00 23:59:00 Encounter Kya Trevizo 350.1.13.10 ity of [facility] [place]2.7.2.[place] [phone] [facility] [address] [place] 2019-06-14 2019-06-14 Orders Doctor JUAN 1.2.840.114 [id number] Univers 00:00:00 00:00:00 Only Unassigned, SHAYY 350.1.13.10 ity of [place] [facility] 4.2.7.2.686 [place] as [phone] [facility] [address] [place] 2019-06-13 2019-06-13 [facility] 1.2.840.114 [id number] Univers 00:00:00 00:00:00 Jose Trevizo 350.1.13.10 i [place].2.[place] [phone] [facility] nal 134 [facility] 2019-06-11 2019-06-11 Patient Doctor JUAN 1.2.840.114 [id number] Univers 00:00:00 00:00:00 Secure Msg Unassigned, SHAYY 350.1.13.10 ity of [place] [facility] 4.2.7.2.686 [place] as [phone] [facility] [address] [place] 2019-06-09 2019-06-09 Allie Gusman [facility] 1.2.840.114 [id number] Univers 00:00:00 00:00:00 Grant Trevizo 350.1.13.10 [place].2.[place] [phone] [facility] nal 092 [facility] 2019-06-06 2019-06-06 Outpatient R GRANT GUSMAN [facility] [id number] Univers 10:40:00 10:40:00 GRANT GUSMAN ity of [facility] 2019-06-06 2019-06-06 Telephone Alon [facility] [facility] 1.2.146.128 [id number] Univers 00:00:00 00:00:00 [facility] 350.1.13.10 it y of [place] 4.2.7.2.686 [place] as Professio [phone] [address] Office [facility] 2019-06-06 2019-06-06 Patient Alon [facility] 1.2.840.114 [id number] Univers 00:00:00 00:00:00 Secure Msg [facility] 350.1.13.10 ity of [place] 4.2.7.2.686 [place] as Professio [phone] [address] Office [facility] 2019-06-06 2019-06-06 Patient Doctor [facility] 1.2.840.114 [id number] Univers 00:00:00 00:00:00 Secure Msg Unassigned, Health 350.1.13.10 ity of [place] 4.2.7.2.686 [place] as Professio [phone] [address] 2019-06-05 2019-06-05 [facility] 1.2.840.114 [id number] Univers 00:00:00 00:00:00 [facility] 350.1.13.10 it y of [place] 4.2.7.2.686 [place] as Professio [phone] [address] Office [facility] 2019-06-03 2019-06-03 Patient Doctor JUAN 1.2.840.114 [id number] Univers 00:00:00 00:00:00 Secure Msg Unassigned, SHAYY 350.1.13.10 ity of [place] [facility] 4.2.7.2.686 [place] as [phone] [address] 2019-06-02 2019-06-02 [facility] 1.2.840.114 [id number] Univers 11:27:23 13:40:24 Visit [facility] 350.1.13.10 it y of [place] 4.2.7.2.686 [place] as Professio [phone] Ia dical nal [address] [place] Office [facility] 2019-06-02 2019-06-02 Office Carmen Mcclain [facility] 1.2.840.114 [id number] Univers 10:14:12 10:29:12 Visit Olya Holloway [facility] 350.1.13.10 ity of Surgical 4.2.7.2.686 [place] as Specialti [phone] Ia dical es [facility] 2019-06-02 2019-06-02 [facility] [id number] Univers 10:15:00 10:15:00 OLYA ity of [facility] 2019-06-02 2019-06-02 Nurse JUAN Patel 1.2.840.114 [id number] Univers 00:00:00 00:00:00 Triage Cat GARAY 350.1.13.10 i ty of HOSPITAL 4.2.7.2.686 [place] as [phone] [address] 2019-05-31 2019-05-31 Telephone [facility] 1.2.840.114 [id number] Univers 00:00:00 00:00:00 Grant Gene [place] 350.1.13.10 it[place] of [place] [phone] Ia dical nal 092 [facility] 2019-05-24 2019-05-24 Patient Doctor JUAN 1.2.840.114 [id number] Univers 00:00:00 00:00:00 Secure Msg UnassignedSHAYY 350.1.13.10 ity of [place] [facility] 4.2.7.2.686 [place] as [phone] [address] 2019-05-17 2019-05-17 [facility] 1.2.840.114 [id number] Univers 00:00:00 00:00:00 Outreach [facility] 350.1.13.10 i ty of [place] 4.2.7.2.686 [place] as Professio [phone] Ia dical nal [address] [place] Office [facility] 2019-05-11 2019-05-11 Outpatient R [facility] [id number] Univers 13:40:00 14:48:32 MAXIMUS ity of [facility] 2019-05-11 2019-05-11 Office [facility] 1.2.840.114 [id number] Univers 13:32:39 14:48:32 Visit Maximus Trevizo 350.1.13.10 i [place]2.[place].2.[place] [phone] Ia dical nal 044 [facility] 2019-04-26 2019-04-26 Telephone [facility] 1.2.840.114 [id number] Univers 00:00:00 00:00:00 Maximus Trevizo 350.1.13.10 i [place]2.[place].2.[place] [phone] Ia dical nal 044 [facility] 2019-04-25 2019-04-25 Letter Neurology [facility] 1.2.840.114 [id number] Univers 00:00:00 00:00:00 (Out) Y HEALTH 350.1.13.10 i ty of CLINICS 4.2.[place].2.[place] [phone] [facility] [address] 2019-04-24 2019-04-24 [facility] 1.2.840.114 [id number] Univers 12:05:00 15:15:00 Encounter Olya Trevizo 350.1.13.10 ity of [place]2.[place].2.[place] Surgical [phone] [facility] [address] 2019-04-24 2019-04-24 Transition Kalyani Tran 1.2.840.114 [id number] Univers 00:00:00 00:00:00 of Care Inocencio Brooks 350.1.13.10 ity of [place].2.7.2.[place] [phone] [facility] [address] 2019-04-18 2019-04-21 [facility] Mao Rodrigues Stephanie 1.2.840.114 [id number] Univers 08:40:00 13:03:00 Encounter S Shayy 350.1.13.10 ity of [facility] 4.2.7.2.686 [place] as [phone] [facility] [address] [place] 2019-04-19 2019-04-19 Telephone hCloe Reese [facility] 1.2.840.114 [id number] Univers 00:00:00 00:00:00 Raleigh Trevizo 350.1.13.10 i ty of [place].2.7.2.[place] [phone] Ia dical nal 134 [facility] 2019-04-18 2019-04-18 Outpatient R MAO RODRIGUES [facility] [id number] Univers 08:30:00 08:30:00 ity of [facility] 2019-04-14 2019-04-14 [facility] 1.2.840.114 [id number] Univers 15:40:06 16:24:42 Visit [facility] 350.1.13.10 it y of [place] 4.2.7.2.686 [place] as Professio [phone] Ia dical nal 044 [facility] 2019-04-14 2019-04-14 Patient Cyn [facility] 1.2.840.114 [id number] Univers 00:00:00 00:00:00 Outreach [facility] 350.1.13.10 ity of [place] 4.2.7.2.686 [place] as Professio [phone] Ia dical nal 044 [facility] 2019-04-14 2019-04-14 Telephone [facility] 1.2.840.114 [id number] Univers 00:00:00 00:00:00 [facility] 350.1.13.10 it y of Surgical 4.2.7.2.686 [place] as Specialti [phone] Ia dical es 198 [facility] 2019-04-14 2019-04-14 Telephone Jessika [facility] 1.2.840.114 [id number] Univers 00:00:00 00:00:00 Maximus Trevizo 350.1.13.10 i [place].2.[place] [phone] Ia dical nal 044 [facility] 2019-04-13 2019-04-13 Refdb Ingram [facility] 1.2.862.520 [id number] Univers 00:00:00 00:00:00 Teo Trevizo 350.1.13.10 i ty [place].2.7.2.[place] [phone] Ia dical nal 134 [facility] 2019-04-07 2019-04-07 Office [facility] 1.2.840.114 [id number] Univers 07:44:27 09:37:11 Visit Maximus Trevizo 350.1.13.10 i ty of [place].2.[place].2.[place] [phone] Ia dicme nal 044 [facility] 2019-04-07 2019-04-07 Telephone [facility] 1.2.840.114 [id number] [facility] 00:00:00 00:00:00 Maximus Trevizo 350.1.13.10 i ty [place].2.7.2.[place] [phone] [facility] nal [address] [place] [address] 2019-04-03 2019-04-03 [facility] [id number] [facility] 16:17:03 23:59:00 OLYA itleonard [facility] 2018-12-09 2018-12-09 Telephone [facility] 1.2.840.114 [id number] Univers 00:00:00 00:00:00 Jose Trevizo 350.1.13.10 i ty of [place].2.7.2.[place] [phone] Ia dical nal [address] [place] [address] 2018-11-29 2018-11-29 Routine Chloe Reese [facility] 1.2.821.363 [id number] Univers 16:02:20 16:42:16 Charleen Trevizo 350.1.13.10 ity of Visit [place].2.7.2.686 [place] [phone] Ia dical nal 134 [facility] 2018-11-25 2018-11-25 Emergency [facility] 1.2.424.406 [id number] Univers 21:54:39 22:48:00 Ranjit Trevizo 350.1.13.10 i ty [place].2.7.2.686 [place] [phone] [facility] [address] [place] 2018-11-25 2018-11-25 Telephone Chloe Reese [facility] 1.2.840.114 [id number] Univers 00:00:00 00:00:00 Raleigh Trevizo 350.1.13.10 i ty of [place]2.7.2.[place] [phone] [facility] 134 [facility] 2018-11-25 2018-11-25 Nurse JUAN Elise 1.2.840.114 [id number] Univers 00:00:00 00:00:00 Triage Jackelin GARAY 350.1.13.10 it y of [facility] 4.2.7.2.686 [place] as [phone] [facility] [address] [place] 2018-11-24 2018-11-24 Patient Kalyani Garcia 1.2.840.114 [id number] Univers 00:00:00 00:00:00 Outreach Roseanne Brooks 350.1.13.10 ity [facility] 4.2.7.2.[place] [phone] [facility] [address] [place] 2018-11-24 2018-11-24 Telephone Dunia [facility] 1.2.840.114 [id number] Univers 00:00:00 00:00:00 Jose Trevizo 350.1.13.10 i ty [place]2.7.2.[place] [phone] Ia dic[address] 2018-11-23 2018-11-23 Emergency Singer [facility] 1.2.104.100 [id number] Univers 13:27:49 19:20:00 Darryn Trevizo 350.1.13.10 i ty [place]2.[place].2.686 [place] [phone] [address] 2018-11-23 2018-11-23 Telephone Dunia [facility] 1.2.840.114 [id number] Univers 00:00:00 00:00:00 Jose Trevizo 350.1.13.10 i ty of [place].2.7.2.[place] [phone] [facility] 134 [facility] 2018-11-20 2018-11-22 [place] 1.2.840.114 [id number] Univers 15:12:00 19:15:00 Encounter Jose Joseline 350.1.13.10 ity of [place].2.7.2.686 [place] [phone] [facility] [address] [place] 2018-11-20 2018-11-20 Nurse JUAN Cortes 1.2.840.114 [id number] Univers 00:00:00 00:00:00 Triage Renetta Ochoa SHAYY 350.1.13.10 it y of HOSPITAL 4.2.7.2.686 [place] as [phone] [facility] [address] [place] 2018-11-20 2018-11-20 Orders Doctor JUAN 1.2.840.114 [id number] Univers 00:00:00 00:00:00 Only Unassigned, SHAYY 350.1.13.10 ity of [place] [facility] 4.2.7.2.686 [place] as [phone] [facility] [address] [place] 2018-11-18 2018-11-18 Routine [place], [facility] 1.2.840.114 [id number] Univers 10:21:53 11:38:24 Jose Trevizo 350.1.13.10 ity of Visit [place] 4.2.7.2.686 [place] [phone] [address] 2018-11-14 2018-11-17 Routine [place], [facility] 1.2.840.114 70 [id number] Univers 10:03:04 13:42:26 Jose Trevizo 350.1.13.10 ity of Visit [place] 4.2.7.2.686 [place] Profess[place] [phone] [facility] nal [address] [place] [address] 2018-11-17 2018-11-17 Routine [place], [facility] 1.2.840.114 70 [id number] Univers 12:09:08 13:31:39 Jose Trevizo 350.1.13.10 ity of Visit [place] 4.2.7.2.686 [place] [phone] [address] 2018-11-14 2018-11-14 Hospital Chloe Reese [facility] 1.2.840.114 [id number] Univers 21:18:00 22:45:00 Encounter Raleigh Trevizo 350.1.13.10 ity of [place] 4.2.7.2.686 [place] [phone] [facility] [address] [place] 2018-11-14 2018-11-14 [facility] 1.2.840.114 [id number] Univers 11:26:24 21:17:00 Encounter Jose Trevizo 350.1.13.10 ity of [place] 4.2.7.2.686 [place] [phone] [facility] [address] [place] 2018-11-14 2018-11-14 Orders Doctor MARTINEZ 1.2.840.114 [id number] Univers 00:00:00 00:00:00 Only Unassigned, SHAYY 350.1.13.10 ity of [place] [facility] 4.2.7.2.686 [place] as [phone] [facility] [address] [place] 2018-11-14 2018-11-14 Nurse JUAN Santos 1.2.840.114 [id number] Univers 00:00:00 00:00:00 Triage Rosy Obando SHAYY 350.1.13.10 ity of [facility] 4.2.7.2.686 [place] as [phone] [facility] [address] [place] 2018-11-14 2018-11-14 [facility] 1.2.840.114 [id number] Univers 00:00:00 00:00:00 Jose Trevizo 350.1.13.10 i ty of [place].2.7.2.[place] [phone] [facility] 134 [facility] 2018-11-10 2018-11-11 [facility] 1.2.840.114 7 [id number] Univers 14:24:00 17:00:00 Encounter Jose Trevizo 350.1.13.10 ity of [place]2.7.2.[place] [phone] [facility] [address] [place] 2018-11-11 2018-11-11 [facility] 1.2.840.114 [id number] Univers 00:00:00 00:00:00 Management Jose Andersonton 350.1.13.10 ity of [place].2.7.2.[place] [phone] [facility] 134 [facility] 2018-11-10 2018-11-10 [facility] 1.2.840.114 [id number] Univers 10:54:59 14:23:00 Encounter Jose [place] 350.1.13.10 ity of [place] 4.2.7.2.686 [place] [phone] [facility] [address] [place] 2018-11-10 2018-11-10 Routine [facility] 1.2.840.114 [id number] Univers 12:45:49 13:00:49 Jose [place] 350.1.13.10 ity of Visit [place] 4.2.7.2.686 [place] Profess[place] [phone] [address] 2018-11-07 2018-11-07 Patient HAY Beatty 1.2.860.848 [id number] Univers 00:00:00 00:00:00 Secure [facility] mBlox 350.1.13.10 ity of [facility] 4.2.7.2.686 [place] [phone] [facility] [address] [place] 2018-11-07 2018-11-07 [facility] 1.2.840.114 [id number] Univers 00:00:00 00:00:00 Jose Trevizo 350.1.13.10 i ty of [place] 4.2.7.2.[place] [phone] [facility] 134 [facility] 2018-11-05 2018-11-05 Nurse JUAN Santos 1.2.840.114 [id number] Univers 00:00:00 00:00:00 Triage Rosy Obando SHAYY 350.1.13.10 ity of [facility] 4.2.7.2.686 [place] as [phone] [facility] [address] [place] 2018-11-03 2018-11-03 [facility] 1.2.840.114 7 [id number] Univers 10:55:07 23:59:00 Encounter Jose Trevizo 350.1.13.10 ity of [place] 4.2.7.2.686 [place] [phone] [facility] [address] [place] 2018-11-03 2018-11-03 Routine [facility] 1.2.840.114 [id number] [facility] 13:54:15 16:42:19 Jose Trevizo 350.1.13.10 ity of Visit [place] 4.2.7.2.686 [place] Profess[place] [phone] Ia dical nal [address] 2018-11-01 2018-11-01 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, [facility] Us Room [facility] 1 .2.840.114 [id number] [facility] 13:11:27 15:24:28 Visit Tri Vestor 350.1.13.10 ity of CLINICS 4.2.7.2.[place] [phone] [facility] [address] 2018-11-01 2018-11-01 Patient Rogerio, [facility] 1.2.825.752 [id number] Univers 00:00:00 00:00:00 Secure Msg GabbyNovint 350.1.13.10 ity of CLINICS 4.2.7.2.[place] [phone] [facility] [address] 2018-11-01 2018-11-01 Telephone [facility] 1.2.840.114 [id number] Univers 00:00:00 00:00:00 Jose Trevizo 350.1.13.10 i ty of [place] 4.2.7.2.686 [place] [phone] Ia dical nal [address] 2018-10-31 2018-10-31 [facility] 1.2.840.114 7 [id number] Univers 10:58:00 12:45:00 Encounter Belem Trevizo 350.1.13.10 ity of [place] 4.2.7.2.686 [place] [phone] [facility] [address] 2018-10-28 2018-10-28 Routine [facility] 1.2.840.114 [id number] Univers 08:14:34 15:50:40 Belem Trevizo 350.1.13.10 ity of Visit [place] 4.2.7.2.686 [place] [facility] [phone] Ia dical nal 134 [facility] 2018-10-28 2018-10-28 [facility] Chloe Reese [facility] 1.2.840.114 [id number] Univers 10:33:30 14:55:00 Encounter Belem Apodaca 350.1.13.1 0 ity of [place] 4.2.7.2.[place] [phone] [facility] [address] 2018-10-28 2018-10-28 Patient Doctor JUAN 1.2.840.114 [id number] Univers 00:00:00 00:00:00 Secure Msg Unassigned, SHAYY 350.1.13.10 ity of [place] [facility]OSPITAL 4.2.7.2.686 [place] as [phone] [facility] [address] 2018-10-24 2018-10-25 Routine Faculty, Mois[facility] 1.2 .840.114 [id number] Univers 10:00:19 11:32:24 Brandee Odom MANAGER OF CLINICAL 350.1.1 3.10 ity of Visit [facility] 4.2.7.2.686 [place] as MATERNAL [phone] Med ical & CHILD 107 [facility] 2018-10-25 2018-10-25 Patient BeattyHAY 1.2.735.962 [id number] Univers 00:00:00 00:00:00 Secure Msg Gabby R Y HEALTH 350.1.13.10 ity of CLINICS 4[place]2.7.2.[place] [phone] [facility] [address] 2018-10-25 2018-10-25 Orders Doctor JUAN 1.2.840.114 [id number] Univers 00:00:00 00:00:00 Only Unassigned, SHAYY 350.1.13.10 ity of [place] HOSPITAL 4.2.7.2.686 [place] as [phone] [facility] [address] 2018-10-24 2018-10-24 Hospital Chloe Reese [facility] 1.2.840.114 [id number] Univers 13:33:00 15:30:00 Encounter Raleigh Trevizo 350.1.13.10 ity of [place]2.7.2.[place] [phone] [facility] [address] [place] 2018-10-24 2018-10-24 Outpatient BRANDEE MEDRANO [facility] [id number] Univers 10:00:00 11:51:01 ity of [facility] 2018-10-24 2018-10-24 Telephone [facility] 1.2.840.114 [id number] Univers 00:00:00 00:00:00 Jose Trevizo 350.1.13.10 i ty [place].2.7.2.[place] [phone] [facility] 134 [facility] 2018-10-24 2018-10-24 Telephone [facility] 1.2.840.114 [id number] Univers 00:00:00 00:00:00 Grant Trevizo 350.1.13.10 ity of [place]2.7.2.[place] [phone] [facility] 092 [facility] 2018-10-21 2018-10-21 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, [facility] 1.2.840.114 [id number] Univers 16:25:06 16:40:06 Visit Chloe Reese Raleigh Trevizo 350.1.13.10 ity of [place].2.7.2.[place] [phone] [facility] [address] [place] 2018-10-21 2018-10-21 Routine Paulie, [facility] 1.2.840.114 [id number] Univers 14:13:39 16:02:12 Belem Trevizo 350.1.13.10 ity of Visit [place] 4.2.7.2.[place] [phone] [facility] 134 [facility] 2018-10-21 2018-10-21 Orders Doctor MARTINEZ 1.2.840.114 [id number] Univers 00:00:00 00:00:00 Only Unassigned, SHAYY 350.1.13.10 ity of [place] HOSPITAL 4.2.7.2.686 [place] as [phone] [facility] [address] 2018-10-20 2018-10-20 Hospital [facility] 1.2.840.114 [id number] Univers 10:59:20 23:59:00 Encounter Jose Joseline 350.1.13.10 ity of [place]2.7.2.[place] [phone] [facility] [address] 2018-10-12 2018-10-12 Patient Doctor JUAN 1.2.840.114 [id number] Univers 00:00:00 00:00:00 Secure Msg Unassigned, SHAYY 350.1.13.10 ity of [place] [facility] 4.2.7.2.686 [place] as [phone] [facility] [address] 2018-09-30 2018-09-30 Office [facility] 1.2.054.883 [id number] Univers 14:06:24 14:55:33 Visit Chris Wild Joseline 350.1.13.10 i ty of [place] 4.2.7.2.686 [place] [facility] [phone] Ia dical [facility] [address] 2018-09-14 2018-09-14 Out[facility] [id number] Univers 13:54:55 13:59:[address] [facility] Results Test Description Test Time Test Comments Results Result Comments Source ACETAMINOPHEN 2022-03-11 00:28:27 Test Item Value Reference Range Interpretation Comme nts ACETAMINOP (test code = 9528362359) 10.0-30.0 L ADRIENNE (test code = ADRIENNE) Toxic: Greater than 200 ug/mL @ 4 hour post ingestion or greater than 50 ug/mL @ 12 hour post ingestion Lab Interpretation (test code = Abnormal 84893-4) [facility]22-[facility]14 00:20:44 ALCOHOL<10mg/dL03/10/2022 6:20 PM [facility]<10 Vsaijtgv80-242 Toxic>100 Depression of HEAD OF MUSIC>400 Fatalities ReportedUnSaint David's Round Rock Medical CenterSALICYLATE2022-12-14 00:18:36 SALICYLATE<10mg/L12/ 6:18 PM [facility]: ? Analgesic and Antipyretic Use ? 20- 100 mg/L ? ? Anti-Inflammatory Use ? 100-250 mg/L Toxic Range: ? Greater than 300 mg/LUnUniversity Medical Center. METABOLIC PANEL (58053)2022-03-11 00:17:50 Test Item Value Reference Range Interpretation Comments NA (test code = 138 mmol/L 135-145 9181874201) K (test code = 4.2 mmol/L 3.5-5.0 3282442946) CL (test code = 102 mmol/L 98-108 8841937405) CO2 TOTAL (test code = 32 mmol/L 23-31 H 3158521205) AGAP (test code = 2-16 8307546630) BUN (test code = 14 mg/dL 7-23 7377440628) GLUCOSE (test code = 57 mg/dL 70-110 L 2616073708) CREATININE (test code = 0.85 mg/dL 0.50-1.04 0533638057) TOTAL BILI (test code = 0.3 mg/dL 0.1-1.3 3276530853) CALCIUM (test code = 9.8 mg/dL 8.6-10.6 5932870523) T PROTEIN (test code = 6.8 g/dL 6.3-8.2 0350257795) ALBUMIN (test code = 4.2 g/dL 3.5-5.0 1511784268) ALK PHOS (test code = 66 U/L 34-122 2619792071) ALTv (test code = 12 U/L 5-35 1742-6) AST(SGOT) (test code = 15 U/L 13-40 5895769543) eGFR (test code = mL/min/1.73m2 4420931867) ADRIENNE (test code = ADRIENNE) Association of [...] tests). Lab Interpretation Abnormal (test code = 95455-4) [facility] WITH [id number] 00:11:30 Test Item Value Reference Range Interpretation Comments WBC (test code = See_Comment [Automated 7926-2) message] The sy stem which generated this result transmitted reference range : 4.30 - 11.10 10*3/?L. The reference range was not used to interpret this result as normal/abnormal . RBC (test code = See_Comment [Automated 906-8) message] The sy stem which generated this [...] RDW-SD (test code = 48.5 fL 39.0-49.9 21611-9) RDW-CV (test code = 13.9 % 12.0-15.5 788-0) PLT (test code = See_Comment [Automated 777-3) message] The sy stem which generated this result transmitted reference range : 166 - 358 10*3/ ?L. The reference r paulina was not used to interpret this result as normal/abnormal . MPV (test code = 10.6 fL 9.5-12.9 16915-6) NRBC/100 WBC (test See_Comment [Automat ed code = 5819982827) message] The system which generated this result transmitted reference range : 0.0 - 10.0 /100 WBCs. The refer ence range was not u sed to interpret th is result as normal/abnormal . NRBC x10^3 (test code See_Comment [Auto mated = 1238021201) message] The s ystem which generated this result transmitted reference range : 10*3/?L. The reference range was not used to interpret this result as normal/abnormal . GRAN MAT (NEUT) % 62.2 % (test code = 770-8) IMM GRAN % (test code 0.30 % = 7485634183) LYMPH % (test code = 27.1 % 736-9) MONO % (test code = 7.8 % 5905-5) EOS % (test code = 1.5 % 713-8) BASO % (test code = 1.1 % 706-2) GRAN MAT x10^3(ANC) 4.56 10*3/uL 1.88-7.09 (test code = [id number]) IMM GRAN x10^3 (test 0.00-0.06 code = [id number]) LYMPH x10^3 (test code 1.99 10*3/uL 1.32-3.29 = 731-0) MONO x10^3 (test code 0.57 10*3/uL 0.33-0.92 = 742-7) EOS x10^3 (test code = 0.11 10*3/uL 0.03-0.39 711-2) BASO x10^3 (test code 0.08 10*3/uL 0.01-0.07 H = 704-7) Lab Interpretation Abnormal (test code = 37372-9) [facility] [id number] 23:46:00 Test Item Value Reference Range Interpretation Comments POCT PREG (test code = 1605) NEGATIVE On board controls acceptable with present C Line (test code = 3574) POCT PREG LOT # (test code = 3575) [id number] POCT PREG TEST DATE (test 06/27/2023 code = 3576) Lab Interpretation (test code = Normal 24362-5) [facility] URINALYSIS W SPECIFIC [id number] 16:50:00 Test Item Value Reference Range Interpretation [...] U APPEAR (test code = clear 3267) [facility] URINALYSIS W SPECIFIC [id number] 16:50:00 Test Item Value Reference Range Interpretation [...] (test code = neg Negative - Negative 3257) POCT U UROBILI (test code = 1 mg/dl 0.2-1 0) POCT U BILI (test code = neg Negative - Negative 326) POCT U BLD (test code = 3257) trace Negative - Negative POCT U COLOR (test code = dark 3266) POCT U APPEAR (test code = clear 326) [facility]"
--- NOTE | 2022-08-10 17:59 | RAD REPORT ---
EXAM DESCRIPTION: RAD - Hip Left 2 View - 08/10/2022 5:45 pm CLINICAL HISTORY: PAIN COMPARISON: <Comparisons> FINDINGS: Mild arthritic changes left hip. No fracture, dislocation or AVN pattern observed.
[2022-08-10] MEDS ORDERED: IBUPROFEN 400 MG TAB ONE (18:22)
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
[2022-08-10 19:00] VITALS: BP 143/99; O2SAT 98
== END 2022-08-10 18:56 | disposition home or self-care (01) ==
LOC: ER 16:08
DX: M25.552 Pain in left hip (principal); Y09 Assault by unspecified means; E03.9 Hypothyroidism, unspecified; G40.909 Epilepsy, unspecified, not intractable, without status epilepticus; Z88.8 Allergy status to other drugs, medicaments and biological substances
CPT/HCPCS: 99283

== ENCOUNTER 2022-08-17 19:44 | Emergency (ER) | payer OTHER ==
--- OUTSIDE RECORDS SUMMARY | 2022-08-17 20:01 | XMS REPORT | Continuity of Care Document ---
:1980 Author Organization [facility] t Address [address] [facility] [address] [place] [address] Care Team Providers Name Role Phone Arik Benz MD Primary Care Physician [phone] ALY RYAN Attending Clinician Unavailable TEO INGRAM Attending Clinician Unavailable ARIK BENZ Attending Clinician Unavailable Arik Benz MD Attending Clinician Teo Ingram PA-C Attending Clinician Nurse, [facility] Attending Clinician Unavailable Unknown, Attending Attending Clinician Unavailable Abril Urias RN Attending Clinician Unavailable Lab, [facility] Attending Clinician Unavailable Elle Owen MD Attending Clinician Doctor Unassigned, [place] Attending Clinician Unavailable ERIC FERNANDEZ Attending Clinician Unavailable Eric Fernandez MD Attending Clinician [phone] ELLE OWEN Attending Clinician Unavailable Emilia [...] Attending Clinician Aurora Driscoll MD Attending Clinician Yoko Bryant MD Attending Clinician Juma Mcdaniels MD [...] Adc Lab Attending Clinician Unavailable Fellow, Gal [facility] Rmp Mfm Attending Clinician Unavailable Jet RIGGINS, Shira Jones Attending Clinician Pedro Luis Couch MD, Alyssia Attending Clinician [phone] Myrtle Garcia Attending Clinician UNKNOWN, ATTENDING Attending Clinician Unavailable JAIDEN ROLON Attending Clinician Unavailable Rickey MELGAR, Martha Attending Clinician Unavailable Clinic, [facility] Neurology Continuity Attending Clinician Unavail able Analilia [...] Clinician Unavailable KYA YANG Attending Clinician Unavailable Charlie RIGGINS, Kya Acosta Attending Clinician Jose Duque [...] MELGAR, Gabby Gasca Attending Clinician Unavailable 1, [facility] Attending Clinician Unavailable Bud Bartlett Attending Clinician Belem Apodaca MD Attending Clinician Faculty, [facility] Attending Clinician Unavailable Brandee Odom MD Attending Clinician BRANDEE ODOM Attending Clinician Unavailable 1, [facility] Lab Attending Clinician Unavailable Chris [...] Aggie baker [facility] [id number] 2018 00:00:00 [facility] [id number] (O) Problems Condition Condition Condition Status Onset Resolution Last Treating Co mments Source Name Details Category Date Date Treatment Clinician Date Attention Attention Disease Active Uni vers deficit deficit 3-13 ity of disorder disorder 00:00: [place] predominan predominan 00 Me dical t t Branch inattentiv inattentiv e type e type COVID-19 COVID-19 Disease Active Unive rs virus virus 2-07 ity of infection infection 00:00: [facility] obando [address] [place] [address] Gestationa Gestationa Disease Active 2020-03 U nivers l l 2-27 it[place] of hypertens[place] hypertens[place] third 00 [facility] trimester trimester Bran ch 37 weeks 37 weeks Disease Active 2020-03 Unive rs gestation gestation 2-27 ity of of of 00:00: [place] 00 [facility] Non-reassu Non-reassu Disease Active 2020-03 U nivers ring ring 2-26 ity of electronic electronic [place] Medical monitoring monitoring Br anch tracing tracing Single Single Disease Active 2020-03 Univers liveborn, liveborn, 2-26 ity of born in born in 00:00: [facility], [address] [place] [address] delivered delivered Bran ch by vaginal by [...] 7-02 it y of itis itis 00:00: [place] during during Medical Bran ch 36 weeks 36 weeks Disease Active Unive rs gestation gestation 6-13 ity of of of 00:00: [place] 00 [facility] High risk High risk Disease Active Uni vers , , 6- it y of multigravi multigravi [place] da of da of Medical advanced advanced Branch maternal maternal age in age in third third trimester trimester Mixed Mixed Disease Active Univers dyslipidem dyslipidem 2-13 it y of ia ia 00:00: [place] 00 Medical Branch Seizure Seizure Disease Active Univers disorder disorder 1-21 ity of 00:00: [place] 00 Medical Branch Anxiety Anxiety Disease Active 2020- Univers 1-10 ity of 00:00: [place] 00 Medical Branch Gastroesop Gastroesop Disease Active 2020- U nivers hageal hageal 1-10 ity of reflux reflux 00:00: [place] disease disease 00 Medical without without Branch esophagiti esophagiti s s Nausea and Nausea and Disease Active 2020-0 U nivers vomiting vomiting 1-10 ity of in in 00:00: [place] 00 [facility] Migraine Migraine Disease Active Unive rs with aura with aura 1-10 ity of and and 00:00: [place] without without 00 Medical status status Branch [...] of , , 00:00: g of this [place] antepartum antepartum 00 note Me dical might [...] mayank ES Class 1-04 ity of 00:00: [facility] Social History Social Habit Start Date Stop Date Quantity Comments Source Exposure to 2022-07-29 2022-08-08 Not sure [facility]-CoV-2 00:00:00 14:23:00 [facility] (event) [place] Alcohol intake 2022-08-08 2022-08-08 Ex-drinker [facility] 00:00:00 00:00:00 (finding) [facility] Tobacco Comment 2022-04-30 2022-04-30 N/A Universit y of 00:00:00 00:00:00 [facility] Tobacco use and 2022-04-30 2022-04-30 Smokeless tobacco Un iversity of exposure 00:00:00 00:00:00 non-user [facility] Sex [birth year] At [birth year] Universit y of 00:00:00 00:00:00 [facility] Smoking Status Start Date Stop Date Source Never smoked tobacco [facility] Medications Ordered Filled Start Stop Current Ordering Indication Dosage Frequency Signature Comments Components Source Medication Medication Date Date Medication? Clinician (SIG) Name Name SYNTHROID Yes [id number] TAKE 1 U nivers 150 mcg 5-21 TABLET BY ity of tablet 00:00: MOUTH [place] 00 EVERY DAY Medical IN THE Branch MORNING dextroamphe Yes [id number] 20mg Take 1 Univers tamine-amph 5-09 tablet by ity of etamine 00:00: mouth in [place] (ADDERALL) 00 the Medical 20 mg morning Branch tablet and 1 tablet at noon and 1 tablet in the evening. dextroamphe 2023-0 Yes [id number] 20mg Take 1 Univers tamine-amph 5-09 tablet by ity of etamine 00:00: mouth in [place] (ADDERALL) 00 the Medical 20 mg morning Branch tablet and 1 tablet at noon and 1 tablet in the evening. dextroamphe 2023-0 Yes [id number] 20mg Take 1 Univers tamine-amph 5-09 tablet by ity of etamine 00:00: mouth in [place] (ADDERALL) 00 the Medical 20 mg morning Branch tablet and 1 tablet at noon and 1 tablet in the evening. dextroamphe 2023-0 Yes [id number] 20mg Take 1 Univers tamine-amph 5-09 tablet by ity of etamine 00:00: mouth in [place] (ADDERALL) 00 the Medical 20 mg morning Branch tablet and 1 tablet at noon and 1 tablet in the evening. dextroamphe 2023-0 Yes [id number] 20mg Take 1 Univers tamine-amph 5-09 tablet by ity of etamine 00:00: mouth in [place] (ADDERALL) 00 the Medical 20 mg morning Branch tablet and 1 tablet at noon and 1 tablet in the evening. dextroamphe 2023-0 Yes [id number] 20mg Take 1 Univers tamine-amph 5-09 tablet by ity of etamine 00:00: mouth in [place] (ADDERALL) 00 the Medical 20 mg morning Branch tablet and 1 tablet at noon and 1 tablet in the evening. dextroamphe 2023-0 Yes [id number] 20mg Take 1 Univers tamine-amph 5-09 tablet by ity of etamine 00:00: mouth in [place] (ADDERALL) 00 the Medical 20 mg morning Branch tablet and 1 tablet at noon and 1 tablet in the evening. dextroamphe 2023-0 Yes [id number] 20mg Take 1 Univers tamine-amph 5-09 tablet by ity of etamine 00:00: mouth in [place] (ADDERALL) 00 the Medical 20 mg morning Branch tablet and 1 tablet at noon and 1 tablet in the evening. SERTRALINE 2023-0 Yes [id number] TAKE 1 Univers 100 mg 5-01 TABLET BY ity of tablet 00:00: MOUTH [place] 00 EVERY DAY Medical Branch SERTRALINE 2023-0 Yes [id number] TAKE 1 Univers 100 mg 5-01 TABLET BY ity of tablet 00:00: MOUTH [place] 00 EVERY DAY Medical Branch SERTRALINE 2023-0 Yes [id number] TAKE 1 Univers 100 mg 5-01 TABLET BY ity of tablet 00:00: MOUTH [place] 00 EVERY DAY Medical Branch SERTRALINE 2023-0 Yes [id number] TAKE 1 Univers 100 mg 5-01 TABLET BY ity of tablet 00:00: MOUTH [place] 00 EVERY DAY Medical Branch SERTRALINE 2023-0 Yes [id number] TAKE 1 Univers 100 mg 5-01 TABLET BY ity of tablet 00:00: MOUTH [place] 00 EVERY DAY Medical Branch SERTRALINE 2023-0 Yes [id number] TAKE 1 Univers 100 mg 5-01 TABLET BY ity of tablet 00:00: MOUTH [place] 00 EVERY DAY Medical Branch SERTRALINE 2023-0 Yes [id number] TAKE 1 Univers 100 mg 5-01 TABLET BY ity of tablet 00:00: MOUTH [place] 00 EVERY DAY Medical Branch SERTRALINE 2023-0 Yes [id number] TAKE 1 Univers 100 mg 5-01 TABLET BY ity of tablet 00:00: MOUTH [place] 00 EVERY DAY Medical Branch SERTRALINE 2023-0 Yes [id number] TAKE 1 Univers 100 mg 5-01 TABLET BY ity of tablet 00:00: MOUTH [place] 00 EVERY DAY Medical Branch SERTRALINE 2023-0 Yes [id number] TAKE 1 Univers 100 mg 5-01 TABLET BY ity of tablet 00:00: MOUTH [place] 00 EVERY DAY Medical Branch clonazePAM 2023-0 Yes 1mg Take 1 Unive rs 1 mg tablet 4-23 tablet by ity of 00:00: mouth in [place] the Medical morning Branch and 1 tablet at noon and 1 tablet in the evening. clonazePAM 2023-0 Yes 1mg Take 1 Unive rs 1 mg tablet 4-23 tablet by ity of 00:00: mouth in [place] 00 the Medical morning Branch and 1 tablet at noon and 1 tablet in the evening. clonazePAM 2023-0 Yes 1mg Take 1 Unive rs 1 mg tablet 4-23 tablet by ity of 00:00: mouth in [place] 00 the Medical morning Branch and 1 tablet at noon and 1 tablet in the evening. clonazePAM 2023-0 Yes 1mg Take 1 Unive rs 1 mg tablet 4-23 tablet by ity of 00:00: mouth in [place] 00 the Medical morning Branch and 1 tablet at noon and 1 tablet in the evening. clonazePAM 2023-0 Yes 1mg Take 1 Unive rs 1 mg tablet 4-23 tablet by ity of 00:00: mouth in [place] 00 the Medical morning Branch and 1 tablet at noon and 1 tablet in the evening. clonazePAM 2023-0 Yes 1mg Take 1 Unive rs 1 mg tablet 4-23 tablet by ity of 00:00: mouth in [place] 00 the Medical morning Branch and 1 tablet at noon and 1 tablet in the evening. clonazePAM 2023-0 Yes 1mg Take 1 Unive rs 1 mg tablet 4-23 tablet by ity of 00:00: mouth in [place] 00 the Medical morning Branch and 1 tablet at noon and 1 tablet in the evening. clonazePAM 2023-0 Yes 1mg Take 1 Unive rs 1 mg tablet 4-23 tablet by ity of 00:00: mouth in [place] 00 the Medical morning Branch and 1 tablet at noon and 1 tablet in the evening. dextroamphe 2023-0 Yes [id number] 20mg Take 1 Univers tamine-amph 3-30 tablet by ity of etamine 00:00: mouth in [place] (ADDERALL) 00 the Medical 20 mg morning Branch tablet and 1 tablet at noon and 1 tablet in the evening. dextroamphe 2023-0 Yes [id number] 20mg Take 1 Univers tamine-amph 3-30 tablet by ity of etamine 00:00: mouth in [place] (ADDERALL) 00 the Medical 20 mg morning Branch tablet and 1 tablet at noon and 1 tablet in the evening. dextroamphe 2023-0 Yes [id number] 20mg Take 1 Univers tamine-amph 3-30 tablet by ity of etamine 00:00: mouth in [place] (ADDERALL) 00 the Medical 20 mg morning Branch tablet and 1 tablet at noon and 1 tablet in the evening. dextroamphe 2023-0 Yes [id number] 20mg Take 1 Univers tamine-amph 3-30 tablet by ity of etamine 00:00: mouth in [place] (ADDERALL) 00 the Medical 20 mg morning Branch tablet and 1 tablet at noon and 1 tablet in the evening. dextroamphe 2023-0 Yes [id number] 20mg Take 1 Univers tamine-amph 3-30 tablet by ity of etamine 00:00: mouth in [place] (ADDERALL) 00 the Medical 20 mg morning Branch tablet and 1 tablet at noon and 1 tablet in the evening. dextroamphe 2023-0 Yes [id number] 20mg Take 1 Univers tamine-amph 3-30 tablet by ity of etamine 00:00: mouth in [place] (ADDERALL) 00 the Medical 20 mg morning Branch tablet and 1 tablet at noon and 1 tablet in the evening. dextroamphe 2023-0 Yes [id number] 20mg Take 1 Univers tamine-amph 3-30 tablet by ity of etamine 00:00: mouth in [place] (ADDERALL) 00 the Medical 20 mg morning Branch tablet and 1 tablet at noon and 1 tablet in the evening. dextroamphe 2023-0 Yes [id number] 20mg Take 1 Univers tamine-amph 3-30 tablet by ity of etamine 00:00: mouth in [place] (ADDERALL) 00 the Medical 20 mg morning Branch tablet and 1 tablet at noon and 1 tablet in the evening. dextroamphe 2023-0 Yes [id number] 20mg Take 1 Univers tamine-amph 3-30 tablet by ity of etamine 00:00: mouth in [place] (ADDERALL) 00 the Medical 20 mg morning Branch tablet and 1 tablet at noon and 1 tablet in the evening. dextroamphe 2023-0 Yes [id number] 20mg Take 1 Univers tamine-amph 3-30 tablet by ity of etamine 00:00: mouth in [place] (ADDERALL) 00 the Medical 20 mg morning Branch tablet and 1 tablet at noon and 1 tablet in the evening. dextroamphe 2023-0 2023- No [id number] 20mg Take 1 Univers tamine-amph 3-30 05-09 tablet by it y of etamine 00:00: 00:00 mouth in [place] (ADDERALL) 00 :00 the Medical 20 mg morning Branch tablet and 1 tablet at noon and 1 tablet in the evening. dextroamphe 2023-0 2023- No [id number] 20mg Take 1 Univers tamine-amph 3-30 05-09 tablet by it y of etamine 00:00: 00:00 mouth in [place] (ADDERALL) 00 :00 the Medical 20 mg morning Branch tablet and 1 tablet at noon and 1 tablet in the evening. ZONISAMIDE 2022-0 Yes [id number] TAKE 1 Univers 100 mg 3-27 CAPSULE BY ity of capsule 00:00: MOUTH [place] 00 TWICE A Medical DAY Branch ZONISAMIDE 2022-0 Yes [id number] TAKE 1 Univers 100 mg 3-27 CAPSULE BY ity of capsule 00:00: MOUTH [place] TWICE A Medical DAY Branch ZONISAMIDE 2022-0 Yes [id number] TAKE 1 Univers 100 mg 3-27 CAPSULE BY ity of capsule 00:00: MOUTH [place] 00 TWICE A Medical DAY Branch ZONISAMIDE 2022-0 Yes [id number] TAKE 1 Univers 100 mg 3-27 CAPSULE BY ity of capsule 00:00: MOUTH [place] TWICE A Medical DAY Branch ZONISAMIDE 2022-0 Yes [id number] TAKE 1 Univers 100 mg 3-27 CAPSULE BY ity of capsule 00:00: MOUTH TWICE A Medical DAY Branch ZONISAMIDE 2022-0 Yes [id number] TAKE 1 Univers 100 mg 3-27 CAPSULE BY ity of capsule 00:00: MOUTH [place] 00 TWICE A Medical DAY Branch ZONISAMIDE 2022-0 Yes [id number] TAKE 1 Univers 100 mg 3-27 CAPSULE BY ity of capsule 00:00: MOUTH [place] 00 TWICE A Medical DAY Branch ZONISAMIDE 2022-0 Yes [id number] TAKE 1 Univers 100 mg 3-27 CAPSULE BY ity of capsule 00:00: MOUTH [place] TWICE A Medical DAY Branch ZONISAMIDE 2022-0 Yes [id number] TAKE 1 Univers 100 mg 3-27 CAPSULE BY ity of capsule 00:00: MOUTH [place] 00 TWICE A Medical DAY Branch ZONISAMIDE 3-0 Yes [id number] TAKE 1 Univers 100 mg 3-27 CAPSULE BY ity of capsule 00:00: MOUTH [place] 00 TWICE A Medical DAY Branch ZONISAMIDE 3-0 Yes [id number] TAKE 1 Univers 100 mg 3-27 CAPSULE BY ity of capsule 00:00: MOUTH [place] 00 TWICE A Medical DAY Branch ZONISAMIDE 3-0 Yes [id number] TAKE 1 Univers 100 mg 3-27 CAPSULE BY ity of capsule 00:00: MOUTH [place] 00 TWICE A Medical DAY Branch ZONISAMIDE 2022-0 Yes [id number] TAKE 1 Univers 100 mg 3-27 CAPSULE BY ity of capsule 00:00: MOUTH [place] 00 TWICE A Medical DAY Branch ZONISAMIDE 2022-0 Yes [id number] TAKE 1 Univers 100 mg 3-27 CAPSULE BY ity of capsule 00:00: MOUTH [place] 00 TWICE A Medical DAY Branch ZONISAMIDE 2022-0 Yes [id number] TAKE 1 Univers 100 mg 3-27 CAPSULE BY ity of capsule 00:00: MOUTH [place] 00 TWICE A Medical DAY Branch ZONISAMIDE 2022-0 Yes [id number] TAKE 1 Univers 100 mg 3-27 CAPSULE BY ity of capsule 00:00: MOUTH [place] 00 TWICE A Medical DAY Branch ZONISAMIDE 2022-0 Yes [id number] TAKE 1 Univers 100 mg 3-27 CAPSULE BY ity of capsule 00:00: MOUTH [place] 00 TWICE A Medical DAY Branch ZONISAMIDE 2022-0 Yes [id number] TAKE 1 Univers 100 mg 3-27 CAPSULE BY ity of capsule 00:00: MOUTH [place] 00 TWICE A Medical DAY Branch ZONISAMIDE 2022-0 Yes [id number] TAKE 1 Univers 100 mg 3-27 CAPSULE BY ity of capsule 00:00: MOUTH [place] 00 TWICE A Medical DAY Branch ZONISAMIDE 2022-0 Yes [id number] TAKE 1 Univers 100 mg 3-27 CAPSULE BY ity of capsule 00:00: MOUTH [place] 00 TWICE A Medical DAY Branch ibuprofen 3-0 3- No 800mg 800 mg, Uni vers (IBU) 3-14 03-14 Oral, ity of tablet 800 15:15: 15:05 ONCE, 1 [place] as mg 00 :00 dose, On Medical Tue Branch 06/09/22 at 1015, CAMRYN dextroamphe 2022-0 Yes [id number] 20mg Take 1 Univers tamine-amph 3-09 tablet by ity of etamine 00:00: mouth in [place] (ADDERALL) 00 the Medical 20 mg morning Branch tablet and 1 tablet at noon and 1 tablet in the evening. dextroamphe 2022-0 Yes [id number] 20mg Take 1 Univers tamine-amph 3-09 tablet by ity of etamine 00:00: mouth in [place] (ADDERALL) 00 the Medical 20 mg morning Branch tablet and 1 tablet at noon and 1 tablet in the evening. dextroamphe 2023-0 Yes [id number] 20mg Take 1 Univers tamine-amph 3-09 tablet by ity of etamine 00:00: mouth in [place] (ADDERALL) 00 the Medical 20 mg morning Branch tablet and 1 tablet at noon and 1 tablet in the evening. dextroamphe 2023-0 Yes [id number] 20mg Take 1 Univers tamine-amph 3-09 tablet by ity of etamine 00:00: mouth in [place] (ADDERALL) 00 the Medical 20 mg morning Branch tablet and 1 tablet at noon and 1 tablet in the evening. dextroamphe 2023-0 Yes [id number] 20mg Take 1 Univers tamine-amph 3-09 tablet by ity of etamine 00:00: mouth in [place] (ADDERALL) 00 the Medical 20 mg morning Branch tablet and 1 tablet at noon and 1 tablet in the evening. dextroamphe 2023-0 Yes [id number] 20mg Take 1 Univers tamine-amph 3-09 tablet by ity of etamine 00:00: mouth in [place] (ADDERALL) 00 the Medical 20 mg morning Branch tablet and 1 tablet at noon and 1 tablet in the evening. dextroamphe 2023-0 Yes [id number] 20mg Take 1 Univers tamine-amph 3-09 tablet by ity of etamine 00:00: mouth in [place] (ADDERALL) 00 the Medical 20 mg morning Branch tablet and 1 tablet at noon and 1 tablet in the evening. dextroamphe 2023-0 Yes [id number] 20mg Take 1 Univers tamine-amph 3-09 tablet by ity of etamine 00:00: mouth in [place] (ADDERALL) 00 the Medical 20 mg morning Branch tablet and 1 tablet at noon and 1 tablet in the evening. dextroamphe 2023-0 Yes [id number] 20mg Take 1 Univers tamine-amph 3-09 tablet by ity of etamine 00:00: mouth in [place] (ADDERALL) 00 the Medical 20 mg morning Branch tablet and 1 tablet at noon and 1 tablet in the evening. dextroamphe 2023-0 Yes [id number] 20mg Take 1 Univers tamine-amph 3-09 tablet by ity of etamine 00:00: mouth in [place] (ADDERALL) 00 the Medical 20 mg morning Branch tablet and 1 tablet at noon and 1 tablet in the evening. dextroamphe 2023-0 2023- No [id number] 20mg Take 1 Univers tamine-amph 3-11 29-30 tablet by it y of etamine 00:00: 00:00 mouth in [place] (ADDERALL) 00 :00 the Medical 20 mg morning Branch tablet and 1 tablet at noon and 1 tablet in the evening. dextroamphe 2023-0 2023- No [id number] 20mg Take 1 Univers tamine-amph 3-11 29-30 tablet by it y of etamine 00:00: 00:00 mouth in [place] (ADDERALL) 00 :00 the Medical 20 mg morning Branch tablet and 1 tablet at noon and 1 tablet in the evening. dextroamphe 2023-0 Yes [id number] 12.5mg Take 1 Univers tamine-amph 2-27 tablet by ity of etamine 00:00: mouth in [place] (ADDERALL) 00 the Medical 12.5 mg morning Branch tablet and 1 tablet at noon and 1 tablet in the evening. clonazePAM 2023-0 Yes [id number] 1mg Take 2 Univers (KLONOPIN) 2-27 tablets by ity of 0.5 mg 00:00: mouth in [place] tablet 00 the Medical morning Branch and 2 tablets at noon and 2 tablets in the evening. dextroamphe 2023-0 Yes [id number] 12.5mg Take 1 Univers tamine-amph 2-27 tablet by ity of etamine 00:00: mouth in [place] (ADDERALL) 00 the Medical 12.5 mg morning Branch tablet and 1 tablet at noon and 1 tablet in the evening. clonazePAM 2023-0 Yes [id number] 1mg Take 2 Univers (KLONOPIN) 2-27 tablets by ity of 0.5 mg 00:00: mouth in [place] tablet 00 the Medical morning Branch and 2 tablets at noon and 2 tablets in the evening. clonazePAM 2023-0 Yes [id number] 1mg Take 2 Univers (KLONOPIN) 2-27 tablets by ity of 0.5 mg 00:00: mouth in [place] tablet 00 the Medical morning Branch and 2 tablets at noon and 2 tablets in the evening. clonazePAM 2023-0 Yes [id number] 1mg Take 2 Univers (KLONOPIN) 2-27 tablets by ity of 0.5 mg 00:00: mouth in [place] tablet 00 the Medical morning Branch and 2 tablets at noon and 2 tablets in the evening. clonazePAM 2023-0 Yes [id number] 1mg Take 2 Univers (KLONOPIN) 2-27 tablets by ity of 0.5 mg 00:00: mouth in [place] tablet 00 the Medical morning Branch and 2 tablets at noon and 2 tablets in the evening. clonazePAM 2023-0 Yes [id number] 1mg Take 2 Univers (KLONOPIN) 2-27 tablets by ity of 0.5 mg 00:00: mouth in [place] tablet 00 the Medical morning Branch and 2 tablets at noon and 2 tablets in the evening. clonazePAM 2023-0 Yes [id number] 1mg Take 2 Univers (KLONOPIN) 2-27 tablets by ity of 0.5 mg 00:00: mouth in [place] tablet 00 the Medical morning Branch and 2 tablets at noon and 2 tablets in the evening. clonazePAM 2023-0 Yes [id number] 1mg Take 2 Univers (KLONOPIN) 2-27 tablets by ity of 0.5 mg 00:00: mouth in [place] tablet 00 the Medical morning Branch and 2 tablets at noon and 2 tablets in the evening. clonazePAM 2023-0 Yes [id number] 1mg Take 2 Univers (KLONOPIN) 2-27 tablets by ity of 0.5 mg 00:00: mouth in [place] tablet 00 the Medical morning Branch and 2 tablets at noon and 2 tablets in the evening. clonazePAM 2023-0 Yes [id number] 1mg Take 2 Univers (KLONOPIN) 2-27 tablets by ity of 0.5 mg 00:00: mouth in [place] tablet 00 the Medical morning Branch and 2 tablets at noon and 2 tablets in the evening. clonazePAM 2023-0 Yes [id number] 1mg Take 2 Univers (KLONOPIN) 2-27 tablets by ity of 0.5 mg 00:00: mouth in [place] tablet 00 the Medical morning Branch and 2 tablets at noon and 2 tablets in the evening. clonazePAM 2023-0 Yes [id number] 1mg Take 2 Univers (KLONOPIN) 2-27 tablets by ity of 0.5 mg 00:00: mouth in [place] tablet 00 the Medical morning Branch and 2 tablets at noon and 2 tablets in the evening. clonazePAM 2023-0 Yes [id number] 1mg Take 2 Univers (KLONOPIN) 2-27 tablets by ity of 0.5 mg 00:00: mouth in [place] tablet 00 the Medical morning Branch and 2 tablets at noon and 2 tablets in the evening. clonazePAM 2023-0 Yes [id number] 1mg Take 2 Univers (KLONOPIN) 2-27 tablets by ity of 0.5 mg 00:00: mouth in [place] tablet 00 the Medical morning Branch and 2 tablets at noon and 2 tablets in the evening. clonazePAM 2023-0 Yes [id number] 1mg Take 2 Univers (KLONOPIN) 2-27 tablets by ity of 0.5 mg 00:00: mouth in [place] tablet 00 the Medical morning Branch and 2 tablets at noon and 2 tablets in the evening. clonazePAM 2023-0 Yes [id number] 1mg Take 2 Univers (KLONOPIN) 2-27 tablets by ity of 0.5 mg 00:00: mouth in [place] tablet 00 the Medical morning Branch and 2 tablets at noon and 2 tablets in the evening. clonazePAM 2023-0 Yes [id number] 1mg Take 2 Univers (KLONOPIN) 2-27 tablets by ity of 0.5 mg 00:00: mouth in [place] tablet 00 the Medical morning Branch and 2 tablets at noon and 2 tablets in the evening. clonazePAM 2023-0 Yes [id number] 1mg Take 2 Univers (KLONOPIN) 2-27 tablets by ity of 0.5 mg 00:00: mouth in [place] tablet 00 the Medical morning Branch and 2 tablets at noon and 2 tablets in the evening. clonazePAM 2023-0 Yes [id number] 1mg Take 2 Univers (KLONOPIN) 2-27 tablets by ity of 0.5 mg 00:00: mouth in [place] tablet 00 the Medical morning Branch and 2 tablets at noon and 2 tablets in the evening. clonazePAM 2023-0 Yes [id number] 1mg Take 2 Univers (KLONOPIN) 2-27 tablets by ity of 0.5 mg 00:00: mouth in [place] tablet 00 the Medical morning Branch and 2 tablets at noon and 2 tablets in the evening. clonazePAM 2023-0 Yes [id number] 1mg Take 2 Univers (KLONOPIN) 2-27 tablets by ity of 0.5 mg 00:00: mouth in [place] tablet 00 the Medical morning Branch and 2 tablets at noon and 2 tablets in the evening. clonazePAM 2023-0 Yes [id number] 1mg Take 2 Univers (KLONOPIN) 2-27 tablets by ity of 0.5 mg 00:00: mouth in [place] tablet 00 the Medical morning Branch and 2 tablets at noon and 2 tablets in the evening. clonazePAM 2023-0 Yes [id number] 1mg Take 2 Univers (KLONOPIN) 2-27 tablets by ity of 0.5 mg 00:00: mouth in [place] tablet 00 the Medical morning Branch and 2 tablets at noon and 2 tablets in the evening. clonazePAM 2023-0 Yes [id number] 1mg Take 2 Univers (KLONOPIN) 2-27 tablets by [facility] of 0.5 mg 00:00: mouth in [place] tablet 00 the Medical morning Branch and 2 tablets at noon and 2 tablets in the evening. clonazePAM 2023-0 Yes [id number] 1mg Take 2 [facility] (KLONOPIN) 2-27 tablets by [facility] of 0.5 mg 00:00: mouth in [place] tablet 00 the Medical morning Branch and 2 tablets at noon and 2 tablets in the evening. clonazePAM 2023-0 Yes [id number] 1mg Take 1 [facility] 1 mg tablet 2-27 tablet by ity of 00:00: mouth in [place] 00 the Medical morning Branch and 1 tablet at noon and 1 tablet in the evening. dextroamphe 2023-0 Yes [id number] 12.5mg Take 1 [facility] tamine-amph 2-27 tablet by [facility] of etamine 00:00: mouth in [place] ([facility]) 00 the Medical 12.5 mg morning Branch tablet and 1 tablet at noon and 1 tablet in the evening. clonazePAM 2023-0 Yes [id number] 1mg Take 1 [facility] 1 mg tablet 2-27 tablet by ity of 00:00: mouth in [place] 00 the Medical morning Branch and 1 tablet at noon and 1 tablet in the evening. dextroamphe 2023-0 Yes [id number] 12.5mg Take 1 [facility] tamine-amph 2-27 tablet by [facility] of etamine 00:00: mouth in [place] ([facility]) 00 the Medical 12.5 mg morning Branch tablet and 1 tablet at noon and 1 tablet in the evening. dextroamphe 2023-0 Yes [id number] 12.5mg Take 1 [facility] tamine-amph 2-27 tablet by [facility]y of etamine 00:00: mouth in [place] ([facility]) 00 the Medical 12.5 mg morning Branch tablet and 1 tablet at noon and 1 tablet in the evening. clonazePAM 2023-0 Yes [id number] 1mg Take 2 [facility] (KLONOPIN) 2-27 tablets by [facility] of 0.5 mg 00:00: mouth in [place] tablet 00 the Medical morning Branch and 2 tablets at noon and 2 tablets in the evening. dextroamphe 2023-0 Yes [id number] 12.5mg Take 1 [facility] tamine-amph 2-27 tablet by [facility]y of etamine 00:00: mouth in [place] ([facility]) 00 the Medical 12.5 mg morning Branch tablet and 1 tablet at noon and 1 tablet in the evening. clonazePAM 2023-0 Yes [id number] 1mg Take 2 [facility] (KLONOPIN) 2-27 tablets by [facility] of 0.5 mg 00:00: mouth in [place] tablet 00 the Medical morning Branch and 2 tablets at noon and 2 tablets in the evening. dextroamphe 2023-0 Yes [id number] 12.5mg Take 1 [facility] tamine-amph 2-27 tablet by ity of etamine 00:00: mouth in [place] ([facility]) 00 the Medical 12.5 mg morning Branch tablet and 1 tablet at noon and 1 tablet in the evening. clonazePAM 2023-0 Yes [id number] 1mg Take 2 [facility] (KLONOPIN) 2-27 tablets by [facility] of 0.5 mg 00:00: mouth in [place] tablet 00 the Medical morning Branch and 2 tablets at noon and 2 tablets in the evening. clonazePAM 2023-0 2023- No [id number] 1mg Take 2 [facility] (KLONOPIN) 2-27 05-09 tablets by it y of 0.5 mg 00:00: 00:00 mouth in [place] tablet 00 :00 the Medical morning Branch and 2 tablets at noon and 2 tablets in the evening. clonazePAM 2023-0 2023- No [id number] 1mg Take 2 [facility] (KLONOPIN) 2-27 05-09 tablets by it y of 0.5 mg 00:00: 00:00 mouth in [place] tablet 00 :00 the Medical morning Branch and 2 tablets at noon and 2 tablets in the evening. dextroamphe 2022-0 2022- No [id number] 12.5mg Take 1 [facility] tamine-amph 2-27 -09 tablet by it y of etamine 00:00: 00:00 mouth in [place] ([facility]) 00 :00 the Medical 12.5 mg morning Branch tablet and 1 tablet at noon and 1 tablet in the evening. clonazePAM 2022-0 3- No [id number] 1mg Take 1 [facility] 1 mg tablet 205-25 tablet by it y of 00:00: 00:00 mouth in [place] 00 :00 the Medical morning Branch and 1 tablet at noon and 1 tablet in the evening. dextroamphe 3-0 Yes [id number] 12.5mg Take 1 [facility] tamine-amph 2-01 tablet by [facility] of etamine 00:00: mouth in [place] [facility] 00 the Medical 12.5 mg morning Branch tablet and 1 tablet at noon and 1 tablet in the evening. dextroamphe 2022-0 Yes [id number] 12.5mg Take 1 [facility] tamine-amph 2-01 tablet by ity of etamine 00:00: mouth in [place] ([facility] 00 the Medical 12.5 mg morning Branch tablet and 1 tablet at noon and 1 tablet in the evening. dextroamphe 3-0 Yes [id number] 12.5mg Take 1 [facility] tamine-amph 2-01 tablet by [facility]y of etamine 00:00: mouth in [place] ([facility] 00 the Medical 12.5 mg morning Branch tablet and 1 tablet at noon and 1 tablet in the evening. dextroamphe 3-0 Yes [id number] 12.5mg Take 1 [facility] tamine-amph 2-01 tablet by ity of etamine 00:00: mouth in [place] ([facility]) 00 the Medical 12.5 mg morning Branch tablet and 1 tablet at noon and 1 tablet in the evening. dextroamphe 2022-0 2022- No [id number] 12.5mg Take 1 [facility] tamine-amph 2-01 - tablet by it y of etamine 00:00: 00:00 mouth in [place] ([facility] :00 the Medical 12.5 mg morning Branch tablet and 1 tablet at noon and 1 tablet in the evening. dextroamphe 2023-0 2023- No [id number] 12.5mg Take 1 [facility] tamine-amph 2-05-25 tablet by it y of etamine 00:00: 00:00 mouth in [place] ([facility]) 00 :00 the Medical 12.5 mg morning Branch tablet and 1 tablet at noon and 1 tablet in the evening. dextroamphe 2023-0 2023- No [id number] 12.5mg Take 1 [facility] tamine-amph 2-05-25 tablet by it y of etamine 00:00: 00:00 mouth in [place] ([facility]) 00 :00 the Medical 12.5 mg morning Branch tablet and 1 tablet at noon and 1 tablet in the evening. dextroamphe 2023-0 Yes [id number] 12.5mg Take 1 [facility] tamine-amph 1-10 tablet by ity of etamine 00:00: mouth in [place] ([facility]) 00 the Medical 12.5 mg morning Branch tablet and 1 tablet at noon and 1 tablet in the evening. dextroamphe 2023-0 Yes [id number] 12.5mg Take 1 [facility] tamine-amph 1-10 tablet by ity of etamine 00:00: mouth in [place] ([facility]) 00 the Medical 12.5 mg morning Branch tablet and 1 tablet at noon and 1 tablet in the evening. dextroamphe 2023-0 Yes [id number] 12.5mg Take 1 [facility] tamine-amph 1-10 tablet by ity of etamine 00:00: mouth in [place] ([facility]) 00 the Medical 12.5 mg morning Branch tablet and 1 tablet at noon and 1 tablet in the evening. dextroamphe 2023-0 Yes [id number] 12.5mg Take 1 [facility] tamine-amph 1-10 tablet by ity of etamine 00:00: mouth in [place] ([facility]) 00 the Medical 12.5 mg morning Branch tablet and 1 tablet at noon and 1 tablet in the evening. dextroamphe 2023-0 Yes [id number] 12.5mg Take 1 [facility] tamine-amph 1-10 tablet by ity of etamine 00:00: mouth in [place] ([facility]) 00 the Medical 12.5 mg morning Branch tablet and 1 tablet at noon and 1 tablet in the evening. dextroamphe 2023-0 Yes [id number] 12.5mg Take 1 [facility] tamine-amph 1-10 tablet by ity of etamine 00:00: mouth in [place] ([facility] 00 the Medical 12.5 mg morning Branch tablet and 1 tablet at noon and 1 tablet in the evening. dextroamphe 2023-0 Yes [id number] 12.5mg Take 1 [facility] tamine-amph 1-10 tablet by ity of etamine 00:00: mouth in [place] ([facility]) 00 the Medical 12.5 mg morning Branch tablet and 1 tablet at noon and 1 tablet in the evening. dextroamphe 2023-0 3- No [id number] 12.5mg Take 1 [facility] tamine-amph 1-10 - tablet by it y of etamine 00:00: 00:00 mouth in [place] ([facility]) 00 :00 the Medical 12.5 mg morning Branch tablet and 1 tablet at noon and 1 tablet in the evening. dextroamphe 2023-0 3- No [id number] 12.5mg Take 1 [facility] tamine-amph 1-10 - tablet by it y of etamine 00:00: 00:00 mouth in [place] ([facility]) 00 :00 the Medical 12.5 mg morning Branch tablet and 1 tablet at noon and 1 tablet in the evening. dextroamphe 2023-0 Yes [id number] 15mg Take 1 [facility] tamine-amph 1-09 tablet by ity of etamine 00:00: mouth in [place] ([facility]) 00 the Medical 15 mg morning Branch tablet and 1 tablet at noon and 1 tablet in the evening. dextroamphe 2023-0 Yes [id number] 15mg Take 1 [facility] tamine-amph 1-09 tablet by ity of etamine 00:00: mouth in [place] ([facility]) 00 the Medical 15 mg morning Branch tablet and 1 tablet at noon and 1 tablet in the evening. dextroamphe 2023-0 3- No [id number] 15mg Take 1 [facility] tamine-amph 1-09 01-10 tablet by it y of etamine 00:00: 00:00 mouth in [place] ([facility]) 00 :00 the Medical 15 mg morning Branch tablet and 1 tablet at noon and 1 tablet in the evening. SYNTHROID 0 Yes [id number] TAKE 1 U nivers 150 mcg 1-02 TABLET BY [facility]y of tablet 00:00: MOUTH [place] 00 EVERY DAY Medical IN THE [facility] SYNTHROID 0 Yes [id number] TAKE 1 U nivers 150 mcg 1-02 TABLET BY ity of tablet 00:00: MOUTH [place] 00 EVERY DAY Medical IN THE [facility] SYNTHROID 0 Yes [id number] TAKE 1 U nivers 150 mcg 1-02 TABLET BY ity of tablet 00:00: MOUTH [place] 00 EVERY DAY Medical IN THE [facility] SYNTHROID Yes [id number] TAKE 1 U nivers 150 mcg 1-02 TABLET BY ity of tablet 00:00: MOUTH [place] 00 EVERY DAY Medical IN THE [facility] SYNTHROID Yes [id number] TAKE 1 U nivers 150 mcg 1-02 TABLET BY ity of tablet 00:00: MOUTH [place] 00 EVERY DAY Medical IN THE [facility] SYNTHROID Yes [id number] TAKE 1 U nivers 150 mcg 1-02 TABLET BY ity of tablet 00:00: MOUTH [place] 00 EVERY DAY Medical IN THE [facility] SYNTHROID Yes [id number] TAKE 1 U nivers 150 mcg 1-02 TABLET BY ity of tablet 00:00: MOUTH [place] 00 EVERY DAY Medical IN THE [facility] SYNTHROID 0 Yes [id number] TAKE 1 U nivers 150 mcg 1-02 TABLET BY ity of tablet 00:00: MOUTH [place] 00 EVERY DAY Medical IN THE [facility] SYNTHROID 0 Yes [id number] TAKE 1 U nivers 150 mcg 1-02 TABLET BY ity of tablet 00:00: MOUTH [place] 00 EVERY DAY Medical IN THE [facility] SYNTHROID 0 Yes [id number] TAKE 1 U nivers 150 mcg 1-02 TABLET BY ity of tablet 00:00: MOUTH [place] 00 EVERY DAY Medical IN THE [facility] SYNTHROID 0 Yes [id number] TAKE 1 U nivers 150 mcg 1-02 TABLET BY ity of tablet 00:00: MOUTH [place] 00 EVERY DAY Medical IN THE [facility] SYNTHROID 0 Yes [id number] TAKE 1 U nivers 150 mcg 1-02 TABLET BY ity of tablet 00:00: MOUTH [place] 00 EVERY DAY Medical IN THE [facility] SYNTHROID Yes [id number] TAKE 1 U nivers 150 mcg 1-02 TABLET BY ity of tablet 00:00: MOUTH [place] 00 EVERY DAY Medical IN THE [facility] SYNTHROID Yes [id number] TAKE 1 U nivers 150 mcg 1-02 TABLET BY ity of tablet 00:00: MOUTH [place] 00 EVERY DAY Medical IN THE [facility] SYNTHROID Yes [id number] TAKE 1 U nivers 150 mcg 1-02 TABLET BY ity of tablet 00:00: MOUTH [place] 00 EVERY DAY Medical IN THE [facility] SYNTHROID Yes [id number] TAKE 1 U nivers 150 mcg 1-02 TABLET BY ity of tablet 00:00: MOUTH [place] 00 EVERY DAY Medical IN THE [facility] SYNTHROID Yes [id number] TAKE 1 U nivers 150 mcg 1-02 TABLET BY ity of tablet 00:00: MOUTH [place] 00 EVERY DAY Medical IN THE [facility] SYNTHROID Yes [id number] TAKE 1 U nivers 150 mcg 1-02 TABLET BY ity of tablet 00:00: MOUTH [place] 00 EVERY DAY Medical IN THE [facility] SYNTHROID Yes [id number] TAKE 1 U nivers 150 mcg 1-02 TABLET BY ity of tablet 00:00: MOUTH [place] 00 EVERY DAY Medical IN THE [facility] SYNTHROID Yes [id number] TAKE 1 U nivers 150 mcg 1-02 TABLET BY ity of tablet 00:00: MOUTH [place] 00 EVERY DAY Medical IN THE [facility] SYNTHROID Yes [id number] TAKE 1 U nivers 150 mcg 1-02 TABLET BY ity of tablet 00:00: MOUTH [place] 00 EVERY DAY Medical IN THE [facility] SYNTHROID 0 Yes [id number] TAKE 1 U nivers 150 mcg 1-02 TABLET BY ity of tablet 00:00: MOUTH [place] 00 EVERY DAY Medical IN THE [facility] SYNTHROID 0 Yes [id number] TAKE 1 U nivers 150 mcg 1-02 TABLET BY ity of tablet 00:00: MOUTH [place] 00 EVERY DAY Medical IN THE [facility] SYNTHROID 0 Yes [id number] TAKE 1 U nivers 150 mcg 1-02 TABLET BY ity of tablet 00:00: MOUTH [place] 00 EVERY DAY Medical IN THE Branch MORNING SYNTHROID Yes [id number] TAKE 1 U nivers 150 mcg 1-02 TABLET BY ity of tablet 00:00: MOUTH [place] 00 EVERY DAY Medical IN THE [facility] SYNTHROID Yes [id number] TAKE 1 U nivers 150 mcg 1-02 TABLET BY ity of tablet 00:00: MOUTH [place] 00 EVERY DAY Medical IN THE [facility] SYNTHROID Yes [id number] TAKE 1 U nivers 150 mcg 1-02 TABLET BY ity of tablet 00:00: MOUTH [place] 00 EVERY DAY Medical IN THE [facility] SYNTHROID Yes [id number] TAKE 1 U nivers 150 mcg 1-02 TABLET BY ity of tablet 00:00: MOUTH [place] 00 EVERY DAY Medical IN THE [facility] SYNTHROID Yes [id number] TAKE 1 U nivers 150 mcg 1-02 TABLET BY ity of tablet 00:00: MOUTH [place] 00 EVERY DAY Medical IN THE [facility] SYNTHROID Yes [id number] TAKE 1 U nivers 150 mcg 1-02 TABLET BY ity of tablet 00:00: MOUTH [place] 00 EVERY DAY Medical IN THE [facility] SYNTHROID Yes [id number] TAKE 1 U nivers 150 mcg 1-02 TABLET BY ity of tablet 00:00: MOUTH [place] 00 EVERY DAY Medical IN THE [facility] SYNTHROID Yes [id number] TAKE 1 U nivers 150 mcg 1-02 TABLET BY ity of tablet 00:00: MOUTH [place] 00 EVERY DAY Medical IN THE [facility] SYNTHROID Yes [id number] TAKE 1 U nivers 150 mcg 1-02 TABLET BY ity of tablet 00:00: MOUTH [place] 00 EVERY DAY Medical IN THE [facility] SYNTHROID Yes [id number] TAKE 1 U nivers 150 mcg 1-02 TABLET BY ity of tablet 00:00: MOUTH [place] 00 EVERY DAY Medical IN THE [facility] SYNTHROID Yes [id number] TAKE 1 U nivers 150 mcg 1-02 TABLET BY ity of tablet 00:00: MOUTH [place] 00 EVERY DAY Medical IN THE [facility] SYNTHROID Yes [id number] TAKE 1 U nivers 150 mcg 1-02 TABLET BY ity of tablet 00:00: MOUTH [place] 00 EVERY DAY Medical IN THE [facility] SYNTHROID Yes [id number] TAKE 1 U nivers 150 mcg 1-02 TABLET BY ity of tablet 00:00: MOUTH [place] 00 EVERY DAY Medical IN THE [facility] SYNTHROID 0 Yes [id number] TAKE 1 U nivers 150 mcg 1-02 TABLET BY ity of tablet 00:00: MOUTH [place] 00 EVERY DAY Medical IN THE [facility] SYNTHROID 0 Yes [id number] TAKE 1 U nivers 150 mcg 1-02 TABLET BY ity of tablet 00:00: MOUTH [place] 00 EVERY DAY Medical IN THE [facility] SYNTHROID Yes [id number] TAKE 1 U nivers 150 mcg 1-02 TABLET BY ity of tablet 00:00: MOUTH [place] 00 EVERY DAY Medical IN THE [facility] SYNTHROID Yes [id number] TAKE 1 U nivers 150 mcg 1-02 TABLET BY ity of tablet 00:00: MOUTH [place] 00 EVERY DAY Medical IN THE [facility] SYNTHROID Yes [id number] TAKE 1 U nivers 150 mcg 1-02 TABLET BY ity of tablet 00:00: MOUTH [place] 00 EVERY DAY Medical IN THE [facility] SYNTHROID Yes [id number] TAKE 1 U nivers 150 mcg 1-02 TABLET BY ity of tablet 00:00: MOUTH [place] 00 EVERY DAY Medical IN THE [facility] SYNTHROID Yes [id number] TAKE 1 U nivers 150 mcg 1-02 TABLET BY ity of tablet 00:00: MOUTH [place] 00 EVERY DAY Medical IN THE [facility] SYNTHROID 0 Yes [id number] TAKE 1 U nivers 150 mcg 1-02 TABLET BY ity of tablet 00:00: MOUTH [place] 00 EVERY DAY Medical IN THE [facility] SYNTHROID 0 Yes [id number] TAKE 1 U nivers 150 mcg 1-02 TABLET BY ity of tablet 00:00: MOUTH [place] 00 EVERY DAY Medical IN THE [facility] SYNTHROID 0 Yes [id number] TAKE 1 U nivers 150 mcg 1-02 TABLET BY ity of tablet 00:00: MOUTH [place] 00 EVERY DAY Medical IN THE [facility] SYNTHROID 0 Yes [id number] TAKE 1 U nivers 150 mcg 1-02 TABLET BY ity of tablet 00:00: MOUTH [place] 00 EVERY DAY Medical IN THE [facility] SYNTHROID Yes [id number] TAKE 1 U nivers 150 mcg 1-02 TABLET BY ity of tablet 00:00: MOUTH [place] 00 EVERY DAY Medical IN THE [facility] SYNTHROID Yes [id number] TAKE 1 U nivers 150 mcg 1-02 TABLET BY ity of tablet 00:00: MOUTH [place] 00 EVERY DAY Medical IN THE [facility] SYNTHROID Yes [id number] TAKE 1 U nivers 150 mcg 1-02 TABLET BY ity of tablet 00:00: MOUTH [place] 00 EVERY DAY Medical IN THE [facility] SYNTHROID Yes [id number] TAKE 1 U nivers 150 mcg 1-02 TABLET BY ity of tablet 00:00: MOUTH [place] 00 EVERY DAY Medical IN THE [facility] SYNTHROID Yes [id number] TAKE 1 U nivers 150 mcg 1-02 TABLET BY ity of tablet 00:00: MOUTH [place] 00 EVERY DAY Medical IN THE [facility] SYNTHROID Yes [id number] TAKE 1 U nivers 150 mcg 1-02 TABLET BY ity of tablet 00:00: MOUTH [place] 00 EVERY DAY Medical IN THE [facility] SYNTHROID Yes [id number] TAKE 1 U nivers 150 mcg 1-02 TABLET BY ity of tablet 00:00: MOUTH [place] 00 EVERY DAY Medical IN THE [facility] SYNTHROID 2022- No [id number] TAKE 1 [facility] 150 mcg 1-02 05-21 TABLET BY ity of tablet 00:00: 00:00 MOUTH [place] 00 :00 EVERY DAY Medical IN THE [facility] ZONISAMIDE 2021-03 Yes [id number] TAKE 1 [facility] 100 mg 2-27 CAPSULE BY ity of capsule 00:00: MOUTH [place] 00 TWICE A Medical DAY [place] ZONISAMIDE 2021-03 Yes [id number] TAKE 1 [facility] 100 mg 2-27 CAPSULE BY ity of capsule 00:00: MOUTH [place] 00 TWICE A Medical DAY [place] ZONISAMIDE 2021-03 Yes [id number] TAKE 1 [facility] 100 mg 2-27 CAPSULE BY ity of capsule 00:00: MOUTH [place] 00 TWICE A Medical DAY [place] ZONISAMIDE 2021-03 Yes [id number] TAKE 1 [facility] 100 mg 2-27 CAPSULE BY ity of capsule 00:00: MOUTH [place] 00 TWICE A Medical DAY [place] ZONISAMIDE 2021-03 Yes [id number] TAKE 1 [facility] 100 mg 2-27 CAPSULE BY ity of capsule 00:00: MOUTH [place] TWICE A Medical DAY Branch ZONISAMIDE 2021-03 Yes [id number] TAKE 1 [facility] 100 mg 2-27 CAPSULE BY ity of capsule 00:00: MOUTH [place] TWICE A Medical DAY Branch ZONISAMIDE 2021-03 Yes [id number] TAKE 1 [facility] 100 mg 2-27 CAPSULE BY ity of capsule 00:00: MOUTH TWICE A Medical DAY Branch ZONISAMIDE 2021-03 Yes [id number] TAKE 1 [facility] 100 mg 2-27 CAPSULE BY ity of capsule 00:00: MOUTH [place] TWICE A Medical DAY Branch ZONISAMIDE 2021-03 Yes [id number] TAKE 1 [facility] 100 mg 2-27 CAPSULE BY ity of capsule 00:00: MOUTH TWICE A Medical DAY Branch ZONISAMIDE 2021-03 Yes [id number] TAKE 1 [facility] 100 mg 2-27 CAPSULE BY ity of capsule 00:00: MOUTH TWICE A Medical DAY Branch ZONISAMIDE 2021-03 Yes [id number] TAKE 1 [facility] 100 mg 2-27 CAPSULE BY ity of capsule 00:00: MOUTH [place] TWICE A Medical DAY Branch ZONISAMIDE 2021-03 Yes [id number] TAKE 1 [facility] 100 mg 2-27 CAPSULE BY ity of capsule 00:00: MOUTH TWICE A Medical DAY Branch ZONISAMIDE 2021-03 Yes [id number] TAKE 1 [facility] 100 mg 2-27 CAPSULE BY ity of capsule 00:00: MOUTH TWICE A Medical DAY Branch ZONISAMIDE 2021-03 Yes [id number] TAKE 1 [facility] 100 mg 2-27 CAPSULE BY ity of capsule 00:00: MOUTH TWICE A Medical DAY Branch ZONISAMIDE 2021-03 Yes [id number] TAKE 1 [facility] 100 mg 2-27 CAPSULE BY ity of capsule 00:00: MOUTH TWICE A Medical DAY Branch ZONISAMIDE 2021-03 Yes [id number] TAKE 1 [facility] 100 mg 2-27 CAPSULE BY ity of capsule 00:00: MOUTH [place] 00 TWICE A Medical DAY Branch ZONISAMIDE 2021-03 Yes [id number] TAKE 1 [facility] 100 mg 2-27 CAPSULE BY ity of capsule 00:00: MOUTH TWICE A Medical DAY Branch ZONISAMIDE 2021-03 Yes [id number] TAKE 1 [facility] 100 mg 2-27 CAPSULE BY ity of capsule 00:00: MOUTH [place] 00 TWICE A Medical DAY Branch ZONISAMIDE 2021-03 Yes [id number] TAKE 1 [facility] 100 mg 2-27 CAPSULE BY ity of capsule 00:00: MOUTH [place] TWICE A Medical DAY Branch ZONISAMIDE 2021-03 Yes [id number] TAKE 1 [facility] 100 mg 2-27 CAPSULE BY ity of capsule 00:00: MOUTH TWICE A Medical DAY Branch ZONISAMIDE 2021-03 Yes [id number] TAKE 1 [facility] 100 mg 2-27 CAPSULE BY ity of capsule 00:00: MOUTH [place] TWICE A Medical DAY Branch ZONISAMIDE 2021-03 Yes [id number] TAKE 1 [facility] 100 mg 2-27 CAPSULE BY ity of capsule 00:00: MOUTH TWICE A Medical DAY Branch ZONISAMIDE 2021-03 Yes [id number] TAKE 1 [facility] 100 mg 2-27 CAPSULE BY ity of capsule 00:00: MOUTH TWICE A Medical DAY Branch ZONISAMIDE 2021-03 Yes [id number] TAKE 1 [facility] 100 mg 2-27 CAPSULE BY ity of capsule 00:00: MOUTH [place] TWICE A Medical DAY Branch ZONISAMIDE 2021-03 Yes [id number] TAKE 1 [facility] 100 mg 2-27 CAPSULE BY ity of capsule 00:00: MOUTH [place] TWICE A Medical DAY Branch ZONISAMIDE 2021-03 Yes [id number] TAKE 1 [facility] 100 mg 2-27 CAPSULE BY ity of capsule 00:00: MOUTH TWICE A Medical DAY Branch ZONISAMIDE 2021-03 Yes [id number] TAKE 1 [facility] 100 mg 2-27 CAPSULE BY ity of capsule 00:00: MOUTH [place] TWICE A Medical DAY Branch ZONISAMIDE 2021-03 Yes [id number] TAKE 1 [facility] 100 mg 2-27 CAPSULE BY ity of capsule 00:00: MOUTH TWICE A Medical DAY Branch ZONISAMIDE 2021-03 Yes [id number] TAKE 1 [facility] 100 mg 2-27 CAPSULE BY ity of capsule 00:00: MOUTH [place] TWICE A Medical DAY Branch ZONISAMIDE 2021-03 Yes [id number] TAKE 1 [facility] 100 mg 2-27 CAPSULE BY ity of capsule 00:00: MOUTH [place] TWICE A Medical DAY Branch ZONISAMIDE 2021-03 Yes [id number] TAKE 1 [facility] 100 mg 2-27 CAPSULE BY ity of capsule 00:00: MOUTH [place] 00 TWICE A Medical DAY Branch ZONISAMIDE 2021-03 Yes [id number] TAKE 1 [facility] 100 mg 2-27 CAPSULE BY ity of capsule 00:00: MOUTH [place] 00 TWICE A Medical DAY Branch ZONISAMIDE 2021-03 Yes [id number] TAKE 1 [facility] 100 mg 2-27 CAPSULE BY ity of capsule 00:00: MOUTH [place] 00 TWICE A Medical DAY Branch ZONISAMIDE 2021-03 Yes [id number] TAKE 1 [facility] 100 mg 2-27 CAPSULE BY ity of capsule 00:00: MOUTH [place] 00 TWICE A Medical DAY Branch ZONISAMIDE 2021-033- No [id number] TAKE 1 [facility] 100 mg 2-27 03-27 CAPSULE BY ity of capsule 00:00: 00:00 MOUTH [place] 00 :00 TWICE A Medical DAY Branch dextroamphe 2021-03 Yes [id number] 15mg Take 1 [facility] tamine-amph 2-20 tablet by ity of etamine 00:00: mouth in [place] ([facility]) 00 the Medical 15 mg morning Branch tablet and 1 tablet at noon and 1 tablet in the evening. dextroamphe 2021-03 Yes [id number] 20mg Take 1 [facility] tamine-amph 2-20 tablet by ity of etamine 00:00: mouth in [place] ([facility]) 00 the Medical 20 mg morning Branch tablet and 1 tablet at noon and 1 tablet in the evening. dextroamphe 2021-03 Yes [id number] 20mg Take 1 [facility] tamine-amph 2-20 tablet by ity of etamine 00:00: mouth in [place] ([facility]) 00 the Medical 20 mg morning Branch tablet and 1 tablet at noon and 1 tablet in the evening. dextroamphe 2021-03 Yes [id number] 15mg Take 1 [facility] tamine-amph 2-20 tablet by ity of etamine 00:00: mouth in [place] ([facility]) 00 the Medical 15 mg morning Branch tablet and 1 tablet at noon and 1 tablet in the evening. dextroamphe 2021-03 Yes [id number] 20mg Take 1 [facility] tamine-amph 2-20 tablet by ity of etamine 00:00: mouth in [place] ([facility]) 00 the Medical 20 mg morning Branch tablet and 1 tablet at noon and 1 tablet in the evening. dextroamphe 2021-03 Yes [id number] 15mg Take 1 [facility] tamine-amph 2-20 tablet by ity of etamine 00:00: mouth in [place] ([facility]) 00 the Medical 15 mg morning Branch tablet and 1 tablet at noon and 1 tablet in the evening. dextroamphe 2021-03 Yes [id number] 20mg Take 1 [facility] tamine-amph 2-20 tablet by ity of etamine 00:00: mouth in [place] ([facility]) 00 the Medical 20 mg morning Branch tablet and 1 tablet at noon and 1 tablet in the evening. dextroamphe 2021-03 Yes [id number] 15mg Take 1 [facility] tamine-amph 2-20 tablet by ity of etamine 00:00: mouth in [place] [facility] 00 the Medical 15 mg morning Branch tablet and 1 tablet at noon and 1 tablet in the evening. dextroamphe 2021-03 Yes [id number] 20mg Take 1 [facility] tamine-amph 2-20 tablet by ity of etamine 00:00: mouth in [place] ([facility]) 00 the Medical 20 mg morning Branch tablet and 1 tablet at noon and 1 tablet in the evening. dextroamphe 2021-03 Yes [id number] 15mg Take 1 [facility] tamine-amph 2-20 tablet by ity of etamine 00:00: mouth in [place] ([facility] 00 the Medical 15 mg morning Branch tablet and 1 tablet at noon and 1 tablet in the evening. dextroamphe 2021-03 Yes [id number] 20mg Take 1 [facility] tamine-amph 2-20 tablet by ity of etamine 00:00: mouth in [place] ([facility]) 00 the Medical 20 mg morning Branch tablet and 1 tablet at noon and 1 tablet in the evening. dextroamphe 2021-03 Yes [id number] 20mg Take 1 [facility] tamine-amph 2-20 tablet by ity of etamine 00:00: mouth in [place] (ADDERALL) 00 the Medical 20 mg morning Branch tablet and 1 tablet at noon and 1 tablet in the evening. dextroamphe 2021-03 Yes [id number] 20mg Take 1 [facility] tamine-amph 2-20 tablet by ity of etamine 00:00: mouth in [place] (ADDERALL) 00 the Medical 20 mg morning Branch tablet and 1 tablet at noon and 1 tablet in the evening. dextroamphe 2021-03- No [id number] 20mg Take 1 [facility] tamine-amph 2-20 04-07 tablet by it y of etamine 00:00: 00:00 mouth in [place] (ADDERALL) 00 :00 the Medical 20 mg morning Branch tablet and 1 tablet at noon and 1 tablet in the evening. dextroamphe 2021-03- No [id number] 15mg Take 1 [facility] tamine-amph 2-20 - tablet by it y of etamine 00:00: 00:00 mouth in [place] (ADDERALL) 00 :00 the Medical 15 mg morning Branch tablet and 1 tablet at noon and 1 tablet in the evening. ibuprofen 2021-03 No 800mg 800 mg, Uni vers (IBU) 2-14 12-14 Oral, ity of tablet 800 03:30: 03:30 ONCE, 1 [place] as mg 00 :00 dose, On Medical [facility] Branch 03/10/22 at 2130, [facility] HYDROcodone 2021-03 No 1{tbl} 1 tablet, [facility] -acetaminop 2-14 14 Oral, ity of hen (NORCO 01:15: 01:14 ONCE, 1 [place] as 5) 5-325 mg 00 :00 dose, On Medi gustavo tablet 1 [facility] Branch tablet 03/10/22 at 1915, [facility] SERTRALINE 2021-03 Yes [id number] TAKE 1 [facility] 100 mg 2-13 TABLET BY ity of tablet 00:00: MOUTH [place] 00 EVERY DAY Medical Branch SERTRALINE 2021-03 Yes [id number] TAKE 1 [facility] 100 mg 2-13 TABLET BY ity of tablet 00:00: MOUTH [place] 00 EVERY DAY Medical Branch SERTRALINE 2021-03 Yes [id number] TAKE 1 [facility] 100 mg 2-13 TABLET BY ity of tablet 00:00: MOUTH [place] 00 EVERY DAY Medical Branch SERTRALINE 2021-03 Yes [id number] TAKE 1 [facility] 100 mg 2-13 TABLET BY ity of tablet 00:00: MOUTH [place] 00 EVERY DAY Medical Branch SERTRALINE 2021-03 Yes [id number] TAKE 1 [facility] 100 mg 2-13 TABLET BY ity of tablet 00:00: MOUTH [place] 00 EVERY DAY Medical Branch SERTRALINE 2021-03 Yes [id number] TAKE 1 [facility] 100 mg 2-13 TABLET BY ity of tablet 00:00: MOUTH EVERY DAY Medical Branch SERTRALINE 2021-03 Yes [id number] TAKE 1 [facility] 100 mg 2-13 TABLET BY ity of tablet 00:00: MOUTH 00 EVERY DAY Medical Branch SERTRALINE 2021-03 Yes [id number] TAKE 1 [facility] 100 mg 2-13 TABLET BY ity of tablet 00:00: MOUTH 00 EVERY DAY Medical Branch SERTRALINE 2021-03 Yes [id number] TAKE 1 [facility] 100 mg 2-13 TABLET BY ity of tablet 00:00: MOUTH 00 EVERY DAY Medical Branch SERTRALINE 2021-03 Yes [id number] TAKE 1 [facility] 100 mg 2-13 TABLET BY ity of tablet 00:00: MOUTH EVERY DAY Medical Branch SERTRALINE 2021-03 Yes [id number] TAKE 1 [facility] 100 mg 2-13 TABLET BY ity of tablet 00:00: MOUTH EVERY DAY Medical Branch SERTRALINE 2021-03 Yes [id number] TAKE 1 [facility] 100 mg 2-13 TABLET BY ity of tablet 00:00: MOUTH 00 EVERY DAY Medical Branch SERTRALINE 2021-03 Yes [id number] TAKE 1 [facility] 100 mg 2-13 TABLET BY ity of tablet 00:00: MOUTH 00 EVERY DAY Medical Branch SERTRALINE 2021-03 Yes [id number] TAKE 1 [facility] 100 mg 2-13 TABLET BY ity of tablet 00:00: MOUTH EVERY DAY Medical Branch SERTRALINE 2021-03 Yes [id number] TAKE 1 [facility] 100 mg 2-13 TABLET BY ity of tablet 00:00: MOUTH 00 EVERY DAY Medical Branch SERTRALINE 2021-03 Yes [id number] TAKE 1 [facility] 100 mg 2-13 TABLET BY ity of tablet 00:00: MOUTH EVERY DAY Medical Branch SERTRALINE 2021-03 Yes [id number] TAKE 1 [facility] 100 mg 2-13 TABLET BY ity of tablet 00:00: MOUTH EVERY DAY Medical Branch SERTRALINE 2021-03 Yes [id number] TAKE 1 [facility] 100 mg 2-13 TABLET BY ity of tablet 00:00: MOUTH EVERY DAY Medical Branch SERTRALINE 2021-03 Yes [id number] TAKE 1 [facility] 100 mg 2-13 TABLET BY ity of tablet 00:00: MOUTH [place] 00 EVERY DAY Medical Branch SERTRALINE 2021-03 Yes [id number] TAKE 1 [facility] 100 mg 2-13 TABLET BY ity of tablet 00:00: MOUTH [place] 00 EVERY DAY Medical Branch SERTRALINE 2021-03 Yes [id number] TAKE 1 [facility] 100 mg 2-13 TABLET BY ity of tablet 00:00: MOUTH [place] EVERY DAY Medical Branch SERTRALINE 2021-03 Yes [id number] TAKE 1 [facility] 100 mg 2-13 TABLET BY ity of tablet 00:00: MOUTH [place] 00 EVERY DAY Medical Branch SERTRALINE 2021-03 Yes [id number] TAKE 1 [facility] 100 mg 2-13 TABLET BY ity of tablet 00:00: MOUTH [place] 00 EVERY DAY Medical Branch SERTRALINE 2021-03 Yes [id number] TAKE 1 [facility] 100 mg 2-13 TABLET BY ity of tablet 00:00: MOUTH [place] EVERY DAY Medical Branch SERTRALINE 2021-03 Yes [id number] TAKE 1 [facility] 100 mg 2-13 TABLET BY ity of tablet 00:00: MOUTH [place] 00 EVERY DAY Medical Branch SERTRALINE 2021-03 Yes [id number] TAKE 1 [facility] 100 mg 2-13 TABLET BY ity of tablet 00:00: MOUTH [place] 00 EVERY DAY Medical Branch SERTRALINE 2021-03 Yes [id number] TAKE 1 [facility] 100 mg 2-13 TABLET BY ity of tablet 00:00: MOUTH [place] 00 EVERY DAY Medical Branch SERTRALINE 2021-03 Yes [id number] TAKE 1 [facility] 100 mg 2-13 TABLET BY ity of tablet 00:00: MOUTH [place] 00 EVERY DAY Medical Branch SERTRALINE 2021-03 Yes [id number] TAKE 1 [facility] 100 mg 2-13 TABLET BY ity of tablet 00:00: MOUTH [place] 00 EVERY DAY Medical Branch SERTRALINE 2021-03 Yes [id number] TAKE 1 [facility] 100 mg 2-13 TABLET BY ity of tablet 00:00: MOUTH [place] 00 EVERY DAY Medical Branch SERTRALINE 2021-03 Yes [id number] TAKE 1 [facility] 100 mg 2-13 TABLET BY ity of tablet 00:00: MOUTH [place] 00 EVERY DAY Medical Branch SERTRALINE 2021-03 Yes [id number] TAKE 1 [facility] 100 mg 2-13 TABLET BY ity of tablet 00:00: MOUTH [place] 00 EVERY DAY Medical Branch SERTRALINE 2021-03 Yes [id number] TAKE 1 [facility] 100 mg 2-13 TABLET BY ity of tablet 00:00: MOUTH EVERY DAY Medical Branch SERTRALINE 2021-03 Yes [id number] TAKE 1 [facility] 100 mg 2-13 TABLET BY ity of tablet 00:00: MOUTH EVERY DAY Medical Branch SERTRALINE 2021-03 Yes [id number] TAKE 1 [facility] 100 mg 2-13 TABLET BY ity of tablet 00:00: MOUTH EVERY DAY Medical Branch SERTRALINE 2021-03 Yes [id number] TAKE 1 [facility] 100 mg 2-13 TABLET BY ity of tablet 00:00: MOUTH EVERY DAY Medical Branch SERTRALINE 2021-03 Yes [id number] TAKE 1 [facility] 100 mg 2-13 TABLET BY ity of tablet 00:00: MOUTH EVERY DAY Medical Branch SERTRALINE 2021-03 Yes [id number] TAKE 1 [facility] 100 mg 2-13 TABLET BY ity of tablet 00:00: MOUTH EVERY DAY Medical Branch SERTRALINE 2021-03 Yes [id number] TAKE 1 [facility] 100 mg 2-13 TABLET BY ity of tablet 00:00: MOUTH EVERY DAY Medical Branch SERTRALINE 2021-03 Yes [id number] TAKE 1 [facility] 100 mg 2-13 TABLET BY ity of tablet 00:00: MOUTH EVERY DAY Medical Branch SERTRALINE 2021-03 Yes [id number] TAKE 1 [facility] 100 mg 2-13 TABLET BY ity of tablet 00:00: [facility] EVERY DAY Medical Branch SERTRALINE 2021-03 Yes [id number] TAKE 1 [facility] 100 mg 2-13 TABLET BY ity of tablet 00:00: MOUTH EVERY DAY Medical Branch SERTRALINE 2021-03 Yes [id number] TAKE 1 [facility] 100 mg 2-13 TABLET BY ity of tablet 00:00: MOUTH [place] EVERY DAY Medical Branch SERTRALINE 2021-03 Yes [id number] TAKE 1 [facility] 100 mg 2-13 TABLET BY ity of tablet 00:00: MOUTH [place] EVERY DAY Medical Branch SERTRALINE 2021-03 Yes [id number] TAKE 1 [facility] 100 mg 2-13 TABLET BY ity of tablet 00:00: MOUTH [place] EVERY DAY Medical Branch SERTRALINE 2021-03 Yes [id number] TAKE 1 [facility] 100 mg 2-13 TABLET BY ity of tablet 00:00: MOUTH [place] 00 EVERY DAY Medical Branch SERTRALINE 2021-03 Yes [id number] TAKE 1 [facility] 100 mg 2-13 TABLET BY ity of tablet 00:00: MOUTH [place] 00 EVERY DAY Medical Branch SERTRALINE 2021-03 Yes [id number] TAKE 1 [facility] 100 mg 2-13 TABLET BY ity of tablet 00:00: MOUTH [place] 00 EVERY DAY Medical Branch SERTRALINE 2021-03 Yes [id number] TAKE 1 [facility] 100 mg 2-13 TABLET BY ity of tablet 00:00: MOUTH [place] 00 EVERY DAY Medical Branch SERTRALINE 2021-03 Yes [id number] TAKE 1 [facility] 100 mg 2-13 TABLET BY ity of tablet 00:00: MOUTH [place] 00 EVERY DAY Medical Branch SERTRALINE 2021-03 Yes [id number] TAKE 1 [facility] 100 mg 2-13 TABLET BY ity of tablet 00:00: MOUTH [place] 00 EVERY DAY Medical Branch SERTRALINE 2021-03 Yes [id number] TAKE 1 [facility] 100 mg 2-13 TABLET BY ity of tablet 00:00: MOUTH [place] 00 EVERY DAY Medical Branch SERTRALINE 2021-03 Yes [id number] TAKE 1 [facility] 100 mg 2-13 TABLET BY ity of tablet 00:00: MOUTH [place] 00 EVERY DAY Medical Branch SERTRALINE 2021-03 Yes [id number] TAKE 1 [facility] 100 mg 2-13 TABLET BY ity of tablet 00:00: MOUTH [place] 00 EVERY DAY Medical Branch SERTRALINE 2021-03 Yes [id number] TAKE 1 [facility] 100 mg 2-13 TABLET BY ity of tablet 00:00: MOUTH [place] 00 EVERY DAY Medical Branch SERTRALINE 2021-03 Yes [id number] TAKE 1 [facility] 100 mg 2-13 TABLET BY ity of tablet 00:00: MOUTH [place] 00 EVERY DAY Medical Branch SERTRALINE 2021-03 Yes [id number] TAKE 1 [facility] 100 mg 2-13 TABLET BY ity of tablet 00:00: MOUTH [place] 00 EVERY DAY Medical Branch SERTRALINE 2021-03- No [id number] TAKE 1 [facility] 100 mg 2-13 05-01 TABLET BY ity of tablet 00:00: 00:00 MOUTH [place] 00 :00 EVERY DAY Medical Branch cephALEXin 2021-03 Yes [id number] 500mg Take 1 [facility] 500 mg 1-28 capsule by ity of capsule 00:00: mouth in [place] [address] the Medical morning Branch and 1 capsule in the evening. cephALEXin 2021- Yes [id number] 500mg Take 1 [facility] 500 mg 1-28 capsule by ity of capsule 00:00: mouth in [place] [address] the Medical morning Branch and 1 capsule in the evening. cephALEXin 202-1 Yes [id number] 500mg Take 1 [facility] 500 mg 1-28 capsule by ity of capsule 00:00: mouth in [place] [address] the Medical morning Branch and 1 capsule in the evening. cephALEXin 202-1 Yes [id number] 500mg Take 1 [facility] 500 mg 1-28 capsule by ity of capsule 00:00: mouth in [place] [address] the Medical morning Branch and 1 capsule in the evening. cephALEXin 2021-1 Yes [id number] 500mg Take 1 [facility] 500 mg 1-28 capsule by ity of capsule 00:00: mouth in [address] morning [place] and 1 capsule in the evening. cephALEXin 2021-1 Yes [id number] 500mg Take 1 [facility] 500 mg 1-28 capsule by ity of capsule 00:00: mouth in [address] Medical morning [place] and 1 capsule in the evening. cephALEXin 2021-1 Yes [id number] 500mg Take 1 [facility] 500 mg 1-28 capsule by ity of capsule 00:00: mouth in [place] [address] the Medical morning [place] and 1 capsule in the evening. cephALEXin 2021-1 Yes [id number] 500mg Take 1 [facility] 500 mg 1-28 capsule by ity of capsule 00:00: mouth in [address] morning [place] and 1 capsule in the evening. cephALEXin 202-1 Yes [id number] 500mg Take 1 [facility] 500 mg 1-28 capsule by ity of capsule 00:00: mouth in [address] morning [place] and 1 capsule in the evening. cephALEXin 202-1 Yes [id number] 500mg Take 1 [facility] 500 mg 1-28 capsule by ity of capsule 00:00: mouth in [place] [address] the Medical morning [place] and 1 capsule in the evening. cephALEXin 2022-1 Yes [id number] 500mg Take 1 [facility] 500 mg 1-28 capsule by ity of capsule 00:00: mouth in [address] morning [place] and 1 capsule in the evening. cephALEXin 2022-1 Yes [id number] 500mg Take 1 [facility] 500 mg 1-28 capsule by ity of capsule 00:00: mouth in [place] [address] the Medical morning Branch and 1 capsule in the evening. cephALEXin 2022-1 Yes [id number] 500mg Take 1 [facility] 500 mg 1-28 capsule by ity of capsule 00:00: mouth in [place] [address] the Medical morning Branch and 1 capsule in the evening. cephALEXin 2022-1 Yes [id number] 500mg Take 1 [facility] 500 mg 1-28 capsule by ity of capsule 00:00: mouth in [place] [address] the Medical morning Branch and 1 capsule in the evening. cephALEXin 2022-1 Yes [id number] 500mg Take 1 [facility] 500 mg 1-28 capsule by ity of capsule 00:00: mouth in [place] [address] the Medical morning Branch and 1 capsule in the evening. cephALEXin 2022-1 Yes [id number] 500mg Take 1 [facility] 500 mg 1-28 capsule by ity of capsule 00:00: mouth in [place] [address] the Medical morning Branch and 1 capsule in the evening. cephALEXin 2022-1 Yes [id number] 500mg Take 1 [facility] 500 mg 1-28 capsule by ity of capsule 00:00: mouth in [place] [address] the Medical morning [place] and 1 capsule in the evening. cephALEXin 2022-1 Yes [id number] 500mg Take 1 [facility] 500 mg 1-28 capsule by ity of capsule 00:00: mouth in [place] [address] the Medical morning Branch and 1 capsule in the evening. cephALEXin 2022-1 Yes [id number] 500mg Take 1 [facility] 500 mg 1-28 capsule by ity of capsule 00:00: mouth in [place] [address] the [facility] morning [place] and 1 capsule in the evening. cephALEXin 2022-1 Yes [id number] 500mg Take 1 [facility] 500 mg 1-28 capsule by ity of capsule 00:00: mouth in [place] [address] the Medical morning Branch and 1 capsule in the evening. cephALEXin 2022-1 Yes [id number] 500mg Take 1 [facility] 500 mg 1-28 capsule by ity of capsule 00:00: mouth in [place] [address] the Medical morning Branch and 1 capsule in the evening. cephALEXin 2022-1 Yes [id number] 500mg Take 1 [facility] 500 mg 1-28 capsule by ity of capsule 00:00: mouth in [place] [address] the [facility] morning [place] and 1 capsule in the evening. cephALEXin 2022-1 Yes [id number] 500mg Take 1 [facility] 500 mg 1-28 capsule by ity of capsule 00:00: mouth in [place] 00 the Medical morning Branch and 1 capsule in the evening. cephALEXin 2021- Yes [id number] 500mg Take 1 [facility] 500 mg 1-28 capsule by ity of capsule 00:00: mouth in [place] 00 the Medical morning Branch and 1 capsule in the evening. dextroamphe 2021-1 Yes [id number] 20mg Take 1 [facility] tamine-amph 1-28 tablet by ity of etamine 00:00: mouth in [place] (ADDERALL) 00 the Medical 20 mg morning Branch tablet and 1 tablet at noon and 1 tablet in the evening. clonazePAM 2021- Yes [id number] 1mg Take 1 [facility] 1 mg tablet 1-28 tablet by ity of 00:00: mouth in [place] 00 the Medical morning Branch and 1 tablet at noon and 1 tablet in the evening. cephALEXin 2021-1 Yes [id number] 500mg Take 1 [facility] 500 mg 1-28 capsule by ity of capsule 00:00: mouth in [place] 00 the Medical morning Branch and 1 capsule in the evening. dextroamphe 2021-1 Yes [id number] 20mg Take 1 [facility] tamine-amph 1-28 tablet by ity of etamine 00:00: mouth in [place] (ADDERALL) 00 the Medical 20 mg morning Branch tablet and 1 tablet at noon and 1 tablet in the evening. clonazePAM 2021- Yes [id number] 1mg Take 1 [facility] 1 mg tablet 1-28 tablet by ity of 00:00: mouth in [place] 00 the Medical morning Branch and 1 tablet at noon and 1 tablet in the evening. cephALEXin 2021-1 Yes [id number] 500mg Take 1 [facility] 500 mg 1-28 capsule by ity of capsule 00:00: mouth in [place] 00 the Medical morning Branch and 1 capsule in the evening. dextroamphe 2021-1 Yes [id number] 20mg Take 1 [facility] tamine-amph 1-28 tablet by ity of etamine 00:00: mouth in [place] (ADDERALL) 00 the Medical 20 mg morning Branch tablet and 1 tablet at noon and 1 tablet in the evening. clonazePAM 2021-1 Yes [id number] 1mg Take 1 [facility] 1 mg tablet 1-28 tablet by ity of 00:00: mouth in [place] 00 the Medical morning Branch and 1 tablet at noon and 1 tablet in the evening. cephALEXin 2021-1 Yes [id number] 500mg Take 1 [facility] 500 mg 1-28 capsule by ity of capsule 00:00: mouth in [place] 00 the Medical morning Branch and 1 capsule in the evening. dextroamphe 2021- Yes [id number] 20mg Take 1 [facility] tamine-amph 1-28 tablet by ity of etamine 00:00: mouth in [place] (ADDERALL) 00 the Medical 20 mg morning Branch tablet and 1 tablet at noon and 1 tablet in the evening. clonazePAM 2021- Yes [id number] 1mg Take 1 [facility] 1 mg tablet 1-28 tablet by ity of 00:00: mouth in [place] 00 the Medical morning Branch and 1 tablet at noon and 1 tablet in the evening. cephALEXin 2021- Yes [id number] 500mg Take 1 [facility] 500 mg 1-28 capsule by ity of capsule 00:00: mouth in [place] 00 the Medical morning Branch and 1 capsule in the evening. dextroamphe 2021- Yes [id number] 20mg Take 1 [facility] tamine-amph 1-28 tablet by ity of etamine 00:00: mouth in [place] (ADDERALL) 00 the Medical 20 mg morning Branch tablet and 1 tablet at noon and 1 tablet in the evening. clonazePAM 2021- Yes [id number] 1mg Take 1 [facility] 1 mg tablet 1-28 tablet by ity of 00:00: mouth in [place] 00 the Medical morning Branch and 1 tablet at noon and 1 tablet in the evening. cephALEXin 2021- Yes [id number] 500mg Take 1 [facility] 500 mg 1-28 capsule by ity of capsule 00:00: mouth in [place] 00 the Medical morning Branch and 1 capsule in the evening. dextroamphe 2021-1 Yes [id number] 20mg Take 1 [facility] tamine-amph 1-28 tablet by ity of etamine 00:00: mouth in [place] (ADDERALL) 00 the Medical 20 mg morning Branch tablet and 1 tablet at noon and 1 tablet in the evening. clonazePAM 2021-1 Yes [id number] 1mg Take 1 [facility] 1 mg tablet 1-28 tablet by ity of 00:00: mouth in [place] 00 the Medical morning Branch and 1 tablet at noon and 1 tablet in the evening. cephALEXin 2021-1 Yes [id number] 500mg Take 1 [facility] 500 mg 1-28 capsule by ity of capsule 00:00: mouth in [address] Medical morning [place] and 1 capsule in the evening. clonazePAM 2-1 Yes [id number] 1mg Take 1 [facility] 1 mg tablet 1-28 tablet by ity of 00:00: mouth in [address] Medical morning [place] and 1 tablet at noon and 1 tablet in the evening. cephALEXin 2021-1 Yes [id number] 500mg Take 1 [facility] 500 mg 1-28 capsule by ity of capsule 00:00: mouth in [address] morning [place] and 1 capsule in the evening. clonazePAM 2021-1 Yes [id number] 1mg Take 1 [facility] 1 mg tablet 1-28 tablet by ity of 00:00: mouth in [address] morning [place] and 1 tablet at noon and 1 tablet in the evening. cephALEXin 2021-1 Yes [id number] 500mg Take 1 [facility] 500 mg 1-28 capsule by ity of capsule 00:00: mouth in [address] morning [place] and 1 capsule in the evening. clonazePAM 2021-1 Yes [id number] 1mg Take 1 [facility] 1 mg tablet 1-28 tablet by ity of 00:00: mouth in [address] morning [place] and 1 tablet at noon and 1 tablet in the evening. cephALEXin 2021-1 Yes [id number] 500mg Take 1 [facility] 500 mg 1-28 capsule by ity of capsule 00:00: mouth in [address] morning [place] and 1 capsule in the evening. clonazePAM 2021-1 Yes [id number] 1mg Take 1 [facility] 1 mg tablet 1-28 tablet by ity of 00:00: mouth in [address] morning [place] and 1 tablet at noon and 1 tablet in the evening. cephALEXin 2021-1 Yes [id number] 500mg Take 1 [facility] 500 mg 1-28 capsule by ity of capsule 00:00: mouth in [address] morning [place] and 1 capsule in the evening. clonazePAM 2022-1 Yes [id number] 1mg Take 1 [facility] 1 mg tablet 1-28 tablet by ity of 00:00: mouth in [address] morning [place] and 1 tablet at noon and 1 tablet in the evening. cephALEXin 2022-1 Yes [id number] 500mg Take 1 [facility] 500 mg 1-28 capsule by ity of capsule 00:00: mouth in [address] morning [place] and 1 capsule in the evening. clonazePAM 2022-1 Yes [id number] 1mg Take 1 [facility] 1 mg tablet 1-28 tablet by ity of 00:00: mouth in [address] morning [place] and 1 tablet at noon and 1 tablet in the evening. cephALEXin 2-1 Yes [id number] 500mg Take 1 [facility] 500 mg 1-28 capsule by ity of capsule 00:00: mouth in [address] morning [place] and 1 capsule in the evening. clonazePAM 2-1 Yes [id number] 1mg Take 1 [facility] 1 mg tablet 1-28 tablet by ity of 00:00: mouth in [address] morning [place] and 1 tablet at noon and 1 tablet in the evening. cephALEXin 2021-1 Yes [id number] 500mg Take 1 [facility] 500 mg 1-28 capsule by ity of capsule 00:00: mouth in [address] morning [place] and 1 capsule in the evening. clonazePAM 2-1 Yes [id number] 1mg Take 1 [facility] 1 mg tablet 1-28 tablet by ity of 00:00: mouth in [address] morning [place] and 1 tablet at noon and 1 tablet in the evening. cephALEXin 2021-1 Yes [id number] 500mg Take 1 [facility] 500 mg 1-28 capsule by ity of capsule 00:00: mouth in [address] and 1 capsule in the evening. clonazePAM 2-1 Yes [id number] 1mg Take 1 [facility] 1 mg tablet 1-28 tablet by ity of 00:00: mouth in [address] morning [place] and 1 tablet at noon and 1 tablet in the evening. cephALEXin 2022-1 Yes [id number] 500mg Take 1 [facility] 500 mg 1-28 capsule by ity of capsule 00:00: mouth in [address] morning [place] and 1 capsule in the evening. clonazePAM 2022-1 Yes [id number] 1mg Take 1 [facility] 1 mg tablet 1-28 tablet by ity of 00:00: mouth in [address] morning [place] and 1 tablet at noon and 1 tablet in the evening. cephALEXin 2022-1 Yes [id number] 500mg Take 1 [facility] 500 mg 1-28 capsule by ity of capsule 00:00: mouth in [address] morning [place] and 1 capsule in the evening. clonazePAM 2022-1 Yes [id number] 1mg Take 1 [facility] 1 mg tablet 1-28 tablet by ity of 00:00: mouth in [address] Medical morning [place] and 1 tablet at noon and 1 tablet in the evening. cephALEXin 2021-1 Yes [id number] 500mg Take 1 [facility] 500 mg 1-28 capsule by ity of capsule 00:00: mouth in [address] morning [place] and 1 capsule in the evening. clonazePAM 2-1 Yes [id number] 1mg Take 1 [facility] 1 mg tablet 1-28 tablet by ity of 00:00: mouth in [address] morning [place] and 1 tablet at noon and 1 tablet in the evening. cephALEXin 2021-1 Yes [id number] 500mg Take 1 [facility] 500 mg 1-28 capsule by ity of capsule 00:00: mouth in [address] morning [place] and 1 capsule in the evening. clonazePAM 2021-1 Yes [id number] 1mg Take 1 [facility] 1 mg tablet 1-28 tablet by ity of 00:00: mouth in [address] and 1 tablet at noon and 1 tablet in the evening. cephALEXin 2021-1 Yes [id number] 500mg Take 1 [facility] 500 mg 1-28 capsule by ity of capsule 00:00: mouth in [address] morning [place] and 1 capsule in the evening. clonazePAM 2021-1 Yes [id number] 1mg Take 1 [facility] 1 mg tablet 1-28 tablet by ity of 00:00: mouth in [address] morning [place] and 1 tablet at noon and 1 tablet in the evening. cephALEXin 2022-1 Yes [id number] 500mg Take 1 [facility] 500 mg 1-28 capsule by ity of capsule 00:00: mouth in [address] morning [place] and 1 capsule in the evening. clonazePAM 2022-1 Yes [id number] 1mg Take 1 [facility] 1 mg tablet 1-28 tablet by ity of 00:00: mouth in [address] morning [place] and 1 tablet at noon and 1 tablet in the evening. cephALEXin 2022-1 Yes [id number] 500mg Take 1 [facility] 500 mg 1-28 capsule by ity of capsule 00:00: mouth in [address] and 1 capsule in the evening. clonazePAM 2022-1 Yes [id number] 1mg Take 1 [facility] 1 mg tablet 1-28 tablet by ity of 00:00: mouth in [place] [address] the Medical morning Branch and 1 tablet at noon and 1 tablet in the evening. cephALEXin 2022-1 Yes [id number] 500mg Take 1 [facility] 500 mg 1-28 capsule by ity of capsule 00:00: mouth in [place] [address] the [facility] morning [place] and 1 capsule in the evening. clonazePAM 2022-1 Yes [id number] 1mg Take 1 [facility] 1 mg tablet 1-28 tablet by ity of 00:00: mouth in [place] [address] the Medical morning [place] and 1 tablet at noon and 1 tablet in the evening. cephALEXin 2021-1 Yes [id number] 500mg Take 1 [facility] 500 mg 1-28 capsule by ity of capsule 00:00: mouth in [address] morning [place] and 1 capsule in the evening. clonazePAM 2-1 Yes [id number] 1mg Take 1 [facility] 1 mg tablet 1-28 tablet by ity of 00:00: mouth in [address] morning [place] and 1 tablet at noon and 1 tablet in the evening. cephALEXin 2021-1 Yes [id number] 500mg Take 1 [facility] 500 mg 1-28 capsule by ity of capsule 00:00: mouth in [address] morning [place] and 1 capsule in the evening. clonazePAM 2-1 Yes [id number] 1mg Take 1 [facility] 1 mg tablet 1-28 tablet by ity of 00:00: mouth in [address] morning [place] and 1 tablet at noon and 1 tablet in the evening. cephALEXin 2022-1 Yes [id number] 500mg Take 1 [facility] 500 mg 1-28 capsule by ity of capsule 00:00: mouth in [address] morning [place] and 1 capsule in the evening. clonazePAM 2-1 Yes [id number] 1mg Take 1 [facility] 1 mg tablet 1-28 tablet by ity of 00:00: mouth in [address] morning [place] and 1 tablet at noon and 1 tablet in the evening. cephALEXin 2022-1 Yes [id number] 500mg Take 1 [facility] 500 mg 1-28 capsule by ity of capsule 00:00: mouth in [address] morning [place] and 1 capsule in the evening. clonazePAM 2022-1 Yes [id number] 1mg Take 1 [facility] 1 mg tablet 1-28 tablet by it[facility] of 00:00: mouth in [address] morning [place] and 1 tablet at noon and 1 tablet in the evening. cephALEXin 2022-1 Yes [id number] 500mg Take 1 [facility] 500 mg 1-28 capsule by ity of capsule 00:00: mouth in [address] morning [place] and 1 capsule in the evening. clonazePAM 2022-1 Yes [id number] 1mg Take 1 [facility] 1 mg tablet 1-28 tablet by ity of 00:00: mouth in [address] morning [place] and 1 tablet at noon and 1 tablet in the evening. cephALEXin 202- Yes [id number] 500mg Take 1 [facility] 500 mg 1-28 capsule by ity of capsule 00:00: mouth in [address] morning [place] and 1 capsule in the evening. clonazePAM 2021-1 Yes [id number] 1mg Take 1 [facility] 1 mg tablet 1-28 tablet by ity of 00:00: mouth in [address] and 1 tablet at noon and 1 tablet in the evening. cephALEXin 2021-1 Yes [id number] 500mg Take 1 [facility] 500 mg 1-28 capsule by ity of capsule 00:00: mouth in [address] and 1 capsule in the evening. clonazePAM 2021-1 Yes [id number] 1mg Take 1 [facility] 1 mg tablet 1-28 tablet by ity of 00:00: mouth in [address] and 1 tablet at noon and 1 tablet in the evening. cephALEXin 2021-1 Yes [id number] 500mg Take 1 [facility] 500 mg 1-28 capsule by ity of capsule 00:00: mouth in [address] and 1 capsule in the evening. cephALEXin 2022-1 Yes [id number] 500mg Take 1 [facility] 500 mg 1-28 capsule by ity of capsule 00:00: mouth in [address] morning [place] and 1 capsule in the evening. cephALEXin 2022-1 Yes [id number] 500mg Take 1 [facility] 500 mg 1-28 capsule by ity of capsule 00:00: mouth in [address] and 1 capsule in the evening. cephALEXin 2022-1 Yes [id number] 500mg Take 1 [facility] 500 mg 1-28 capsule by ity of capsule 00:00: mouth in [address] and 1 capsule in the evening. cephALEXin 2022-1 Yes [id number] 500mg Take 1 [facility] 500 mg -28 capsule by ity of capsule 00:00: mouth in [place] 00 the Medical morning Branch and 1 capsule in the evening. cephALEXin 2021-03 Yes [id number] 500mg Take 1 [facility] 500 mg 1-28 capsule by ity of capsule 00:00: mouth in [place] 00 the Medical morning Branch and 1 capsule in the evening. cephALEXin 2021-03 Yes [id number] 500mg Take 1 [facility] 500 mg -28 capsule by ity of capsule 00:00: mouth in [place] 00 the Medical morning Branch and 1 capsule in the evening. cephALEXin 2021-03- No [id number] 500mg Take 1 [facility] 500 mg -28 05-09 capsule by ity of capsule 00:00: 00:00 mouth in [place] 00 :00 the Medical morning Branch and 1 capsule in the evening. cephALEXin 2021-03- No [id number] 500mg Take 1 [facility] 500 mg -28 05-09 capsule by ity of capsule 00:00: 00:00 mouth in [place] 00 :00 the Medical morning Branch and 1 capsule in the evening. clonazePAM 2021-03- No [id number] 1mg Take 1 [facility] 1 mg tablet 04-25- tablet by it y of 00:00: 00:00 mouth in [place] 00 :00 the Medical morning Branch and 1 tablet at noon and 1 tablet in the evening. clonazePAM 2021-03- No [id number] 1mg Take 1 [facility] 1 mg tablet 04-25- tablet by it y of 00:00: 00:00 mouth in [place] 00 :00 the Medical morning Branch and 1 tablet at noon and 1 tablet in the evening. clonazePAM 2021-03- No [id number] 1mg Take 1 [facility] 1 mg tablet 04-25- tablet by it y of 00:00: 00:00 mouth in [place] 00 :00 the Medical morning Branch and 1 tablet at noon and 1 tablet in the evening. dextroamphe 2021-03- No [id number] 20mg Take 1 [facility] tamine-amph - 12-20 tablet by it y of etamine 00:00: 00:00 mouth in [place] ([facility]) 00 :00 the Medical 20 mg morning Branch tablet and 1 tablet at noon and 1 tablet in the evening. clonazePAM 2021-03 Yes [id number] 1mg Take 1 [facility] 1 mg tablet 1-01 tablet by ity of 00:00: mouth in [place] 00 the Medical morning Branch and 1 tablet at noon and 1 tablet in the evening. cephALEXin 2021-03 Yes [id number] 500mg Take 1 [facility] 500 mg 1-01 capsule by ity of capsule 00:00: mouth in [place] 00 the Medical morning Branch and 1 capsule in the evening. clonazePAM 2021-03 Yes [id number] 1mg Take 1 [facility] 1 mg tablet 1-01 tablet by ity of 00:00: mouth in [place] 00 the Medical morning Branch and 1 tablet at noon and 1 tablet in the evening. cephALEXin 2021-03 Yes [id number] 500mg Take 1 [facility] 500 mg 1-01 capsule by ity of capsule 00:00: mouth in [place] 00 the Medical morning Branch and 1 capsule in the evening. clonazePAM 2021-03- No [id number] 1mg Take 1 [facility] 1 mg tablet -04 08-28 tablet by it y of 00:00: 00:00 mouth in [place] 00 :00 the Medical morning Branch and 1 tablet at noon and 1 tablet in the evening. cephALEXin 2021-03- No [id number] 500mg Take 1 [facility] 500 mg -04 08- capsule by ity of capsule 00:00: 00:00 mouth in [place] 00 :00 the Medical morning Branch and 1 capsule in the evening. busPIRone 2021-03 Yes [id number] 10mg Take 1 [facility] 10 mg 0-25 tablet by ity of tablet 00:00: mouth in [place] 00 the Medical morning Branch and 1 tablet in the evening. busPIRone 2021-03 Yes [id number] 10mg Take 1 [facility] 10 mg 0-25 tablet by ity of tablet 00:00: mouth in [place] 00 the Medical morning Branch and 1 tablet in the evening. dextroamphe 2021-03 Yes [id number] 20mg Take 1 [facility] tamine-amph 0-25 tablet by ity of etamine 00:00: mouth in [place] ([facility]) 00 the Medical 20 mg morning Branch tablet and 1 tablet at noon and 1 tablet in the evening. busPIRone 2021- Yes [id number] 10mg Take 1 [facility] 10 mg 0-25 tablet by ity of tablet 00:00: mouth in [place] 00 the Medical morning Branch and 1 tablet in the evening. dextroamphe 2021-03 Yes [id number] 20mg Take 1 [facility] tamine-amph 0-25 tablet by ity of etamine 00:00: mouth in [place] ([facility]) 00 the Medical 20 mg morning Branch tablet and 1 tablet at noon and 1 tablet in the evening. busPIRone 2021-03 Yes [id number] 10mg Take 1 [facility] 10 mg 0-25 tablet by ity of tablet 00:00: mouth in [place] 00 the Medical morning Branch and 1 tablet in the evening. dextroamphe 2021-03 Yes [id number] 20mg Take 1 [facility] tamine-amph 0-25 tablet by ity of etamine 00:00: mouth in [place] ([facility] 00 the Medical 20 mg morning Branch tablet and 1 tablet at noon and 1 tablet in the evening. busPIRone 2021-03 Yes [id number] 10mg Take 1 [facility] nivers 10 mg 0-25 tablet by ity of tablet 00:00: mouth in [place] 00 the Medical morning Branch and 1 tablet in the evening. dextroamphe 2021-03 Yes [id number] 20mg Take 1 [facility] tamine-amph 0-25 tablet by ity of etamine 00:00: mouth in [place] ([facility]) 00 the Medical 20 mg morning Branch tablet and 1 tablet at noon and 1 tablet in the evening. busPIRone 2021-03 Yes [id number] 10mg Take 1 [facility] nivers 10 mg 0-25 tablet by ity of tablet 00:00: mouth in [place] 00 the Medical morning Branch and 1 tablet in the evening. dextroamphe 2021-03 Yes [id number] 20mg Take 1 [facility] tamine-amph 0-25 tablet by ity of etamine 00:00: mouth in [place] ([facility] 00 the Medical 20 mg morning Branch tablet and 1 tablet at noon and 1 tablet in the evening. busPIRone 2021-03 Yes [id number] 10mg Take 1 [facility] nivers 10 mg 0-25 tablet by ity of tablet 00:00: mouth in [place] 00 the Medical morning Branch and 1 tablet in the evening. dextroamphe 2021-03 Yes [id number] 20mg Take 1 [facility] tamine-amph 0-25 tablet by ity of etamine 00:00: mouth in [place] ([facility]) 00 the Medical 20 mg morning Branch tablet and 1 tablet at noon and 1 tablet in the evening. busPIRone 2021-03 Yes [id number] 10mg Take 1 [facility] nivers 10 mg 0-25 tablet by ity of tablet 00:00: mouth in [place] 00 the Medical morning Branch and 1 tablet in the evening. dextroamphe 2021-03 Yes [id number] 20mg Take 1 [facility] tamine-amph 0-25 tablet by ity of etamine 00:00: mouth in [place] ([facility]) 00 the Medical 20 mg morning Branch tablet and 1 tablet at noon and 1 tablet in the evening. dextroamphe 2021-03 Yes [id number] 20mg Take 1 [facility] tamine-amph 0-25 tablet by ity of etamine 00:00: mouth in [place] ([facility]) 00 the Medical 20 mg morning Branch tablet and 1 tablet at noon and 1 tablet in the evening. dextroamphe 2021-03 Yes [id number] 20mg Take 1 [facility] tamine-amph 0-25 tablet by ity of etamine 00:00: mouth in [place] ([facility]) 00 the Medical 20 mg morning Branch tablet and 1 tablet at noon and 1 tablet in the evening. dextroamphe 2021-03- No [id number] 20mg Take 1 [facility] tamine-amph 0-25 11-28 tablet by it y of etamine 00:00: 00:00 mouth in [place] ([facility]) 00 :00 the Medical 20 mg morning Branch tablet and 1 tablet at noon and 1 tablet in the evening. busPIRone 2021-03- No [id number] 10mg Take 1 [facility] 10 mg 0-25 11-01 tablet by ity of tablet 00:00: 00:00 mouth in [place] 00 :00 the Medical morning Branch and 1 tablet in the evening. busPIRone 2021-03- No [id number] 10mg Take 1 [facility] 10 mg 0-25 11-01 tablet by ity of tablet 00:00: 00:00 mouth in [place] 00 :00 the Medical morning Branch and 1 tablet in the evening. dextroamphe Yes [id number] 20mg Take 1 [facility] tamine-amph 9-26 tablet by ity of etamine 00:00: mouth in [place] ([facility]) 00 the Medical 20 mg morning Branch tablet and 1 tablet at noon and 1 tablet in the evening. dextroamphe 2022-0 Yes [id number] 20mg Take 1 [facility] tamine-amph 9-26 tablet by ity of etamine 00:00: mouth in [place] ([facility]) 00 the Medical 20 mg morning Branch tablet and 1 tablet at noon and 1 tablet in the evening. dextroamphe 2-0 Yes [id number] 20mg Take 1 [facility] tamine-amph 9-26 tablet by ity of etamine 00:00: mouth in [place] ([facility]) 00 the Medical 20 mg morning Branch tablet and 1 tablet at noon and 1 tablet in the evening. dextroamphe 2-0 Yes [id number] 20mg Take 1 [facility] tamine-amph 9-26 tablet by ity of etamine 00:00: mouth in [place] ([facility]) 00 the Medical 20 mg morning Branch tablet and 1 tablet at noon and 1 tablet in the evening. dextroamphe 2-0 Yes [id number] 20mg Take 1 [facility] tamine-amph 9-26 tablet by ity of etamine 00:00: mouth in [place] ([facility]) 00 the Medical 20 mg morning Branch tablet and 1 tablet at noon and 1 tablet in the evening. dextroamphe 2-0 Yes [id number] 20mg Take 1 [facility] tamine-amph 9-26 tablet by ity of etamine 00:00: mouth in [place] ([facility]) 00 the Medical 20 mg morning Branch tablet and 1 tablet at noon and 1 tablet in the evening. dextroamphe 2-0 Yes [id number] 20mg Take 1 [facility] tamine-amph 9-26 tablet by ity of etamine 00:00: mouth in [place] ([facility]) 00 the Medical 20 mg morning Branch tablet and 1 tablet at noon and 1 tablet in the evening. dextroamphe 2-0 2022- No [id number] 20mg Take 1 [facility] tamine-amph 9-26 10-25 tablet by it y of etamine 00:00: 00:00 mouth in [place] ([facility]) 00 :00 the Medical 20 mg morning Branch tablet and 1 tablet at noon and 1 tablet in the evening. dextroamphe 2021- No [id number] 20mg Take 1 [facility] tamine-amph 9-26 10-25 tablet by it y of etamine 00:00: 00:00 mouth in [place] ([facility]) 00 :00 the Medical 20 mg morning Branch tablet and 1 tablet at noon and 1 tablet in the evening. PERMETHRIN Yes [id number] APPLY TO [facility] 5 % cream 9-08 SKIN AND ity of 00:00: LEAVE ON [place] 00 FOR 8 - 10 Medical HOURS THEN Branch REPEAT IN A WEEK PERMETHRIN Yes [id number] APPLY TO [facility] 5 % cream 9-08 SKIN AND ity of 00:00: LEAVE ON [place] FOR 8 - 10 Medical HOURS THEN Branch REPEAT IN A WEEK PERMETHRIN Yes [id number] APPLY TO [facility] 5 % cream 9-08 SKIN AND ity of 00:00: LEAVE ON [place] FOR 8 - 10 Medical HOURS THEN Branch REPEAT IN A WEEK PERMETHRIN Yes [id number] APPLY TO [facility] 5 % cream 9-08 SKIN AND ity of 00:00: LEAVE ON [place] FOR 8 - 10 Medical HOURS THEN Branch REPEAT IN A WEEK PERMETHRIN Yes [id number] APPLY TO [facility] 5 % cream 9-08 SKIN AND ity of 00:00: LEAVE ON [place] 00 FOR 8 - 10 Medical HOURS THEN Branch REPEAT IN A WEEK PERMETHRIN Yes [id number] APPLY TO [facility] 5 % cream 9-08 SKIN AND ity of 00:00: LEAVE ON [place] FOR 8 - 10 Medical HOURS THEN Branch REPEAT IN A WEEK PERMETHRIN Yes [id number] APPLY TO [facility] 5 % cream 9-08 SKIN AND ity of 00:00: LEAVE ON [place] 00 FOR 8 - 10 Medical HOURS THEN Branch REPEAT IN A WEEK PERMETHRIN Yes [id number] APPLY TO [facility] 5 % cream 9-08 SKIN AND ity of 00:00: LEAVE ON [place] 00 FOR 8 - 10 Medical HOURS THEN Branch REPEAT IN A WEEK PERMETHRIN Yes [id number] APPLY TO [facility] 5 % cream 9-08 SKIN AND ity of 00:00: LEAVE ON [place] FOR 8 - 10 Medical HOURS THEN Branch REPEAT IN A WEEK PERMETHRIN Yes [id number] APPLY TO [facility] 5 % cream 9-08 SKIN AND ity of 00:00: LEAVE ON [place] 00 FOR 8 - 10 Medical HOURS THEN Branch REPEAT IN A WEEK PERMETHRIN Yes [id number] APPLY TO [facility] 5 % cream 9-08 SKIN AND ity of 00:00: LEAVE ON [place] 00 FOR 8 - 10 Medical HOURS THEN Branch REPEAT IN A WEEK PERMETHRIN Yes [id number] APPLY TO [facility] 5 % cream 9-08 SKIN AND ity of 00:00: LEAVE ON [place] 00 FOR 8 - 10 Medical HOURS THEN Branch REPEAT IN A WEEK PERMETHRIN Yes [id number] APPLY TO [facility] 5 % cream 9-08 SKIN AND ity of 00:00: LEAVE ON [place] 00 FOR 8 - 10 Medical HOURS THEN Branch REPEAT IN A WEEK PERMETHRIN Yes [id number] APPLY TO [facility] 5 % cream 9-08 SKIN AND ity of 00:00: LEAVE ON [place] 00 FOR 8 - 10 Medical HOURS THEN Branch REPEAT IN A WEEK PERMETHRIN Yes [id number] APPLY TO [facility] 5 % cream 9-08 SKIN AND ity of 00:00: LEAVE ON [place] 00 FOR 8 - 10 Medical HOURS THEN Branch REPEAT IN A WEEK PERMETHRIN Yes [id number] APPLY TO [facility] 5 % cream 9-08 SKIN AND ity of 00:00: LEAVE ON [place] 00 FOR 8 - 10 Medical HOURS THEN Branch REPEAT IN A WEEK PERMETHRIN 0 2021- No [id number] APPLY TO [facility] 5 % cream 9-08 11-01 SKIN AND ity o f 00:00: 00:00 LEAVE ON [place] 00 :00 FOR 8 - 10 Medical HOURS THEN Branch REPEAT IN A WEEK PERMETHRIN 0 2021- No [id number] APPLY TO [facility] 5 % cream 9-08 11-01 SKIN AND ity o f 00:00: 00:00 LEAVE ON [place] 00 :00 FOR 8 - 10 Medical HOURS THEN Branch REPEAT IN A WEEK triamcinolo Yes [id number] Apply to [facility] ne 8-31 area(s) 2 ity of acetonide 00:00: (two) [place] 0.1 % cream 00 times Medical daily. To Branch bumps mupirocin 2 Yes [id number] Apply to [facility] % ointment 8-31 area(s) 3 ity of 00:00: (three) [place] 00 times Medical daily. To Branch open wounds triamcinolo 2-0 Yes [id number] Apply to [facility] ne 8-31 area(s) 2 ity of acetonide 00:00: (two) [place] 0.1 % cream 00 times Medical daily. To Branch bumps mupirocin 2 2021-0 Yes [id number] Apply to [facility] % ointment 8-31 area(s) 3 ity of 00:00: (three) [place] 00 times Medical daily. To Branch open wounds triamcinolo 2-0 Yes [id number] Apply to [facility] ne 8-31 area(s) 2 ity of acetonide 00:00: (two) [place] 0.1 % cream 00 times Medical daily. To Branch bumps mupirocin 2 2021-0 Yes [id number] Apply to [facility] % ointment 8-31 area(s) 3 ity of 00:00: (three) [place] 00 times Medical daily. To Branch open wounds triamcinolo 2021-0 Yes [id number] Apply to [facility] ne 8-31 area(s) 2 ity of acetonide 00:00: (two) [place] 0.1 % cream 00 times Medical daily. To Branch bumps mupirocin 2 2021-0 Yes [id number] Apply to [facility] % ointment 8-31 area(s) 3 ity of 00:00: (three) [place] 00 times Medical daily. To Branch open wounds triamcinolo 2-0 Yes [id number] Apply to [facility] ne 8-31 area(s) 2 ity of acetonide 00:00: (two) [place] 0.1 % cream 00 times Medical daily. To Branch bumps mupirocin 2 2-0 Yes [id number] Apply to [facility] % ointment 8-31 area(s) 3 ity of 00:00: (three) [place] 00 times Medical daily. To Branch open wounds triamcinolo 2-0 Yes [id number] Apply to [facility] ne 8-31 area(s) 2 ity of acetonide 00:00: (two) [place] 0.1 % cream 00 times Medical daily. To Branch bumps mupirocin 2 2-0 Yes [id number] Apply to [facility] % ointment 8-31 area(s) 3 ity of 00:00: (three) [place] 00 times Medical daily. To Branch open wounds triamcinolo 2-0 Yes [id number] Apply to [facility] ne 8-31 area(s) 2 ity of acetonide 00:00: (two) [place] 0.1 % cream 00 times Medical daily. To Branch bumps mupirocin 2 2021-0 Yes [id number] Apply to [facility] % ointment 8-31 area(s) 3 ity of 00:00: (three) [place] 00 times Medical daily. To Branch open wounds triamcinolo 2-0 Yes [id number] Apply to [facility] ne 8-31 area(s) 2 ity of acetonide 00:00: (two) [place] 0.1 % cream 00 times Medical daily. To Branch bumps mupirocin 2 2021-0 Yes [id number] Apply to [facility] % ointment 8-31 area(s) 3 ity of 00:00: (three) [place] 00 times Medical daily. To Branch open wounds triamcinolo 2021-0 Yes [id number] Apply to [facility] ne 8-31 area(s) 2 ity of acetonide 00:00: (two) [place] 0.1 % cream 00 times Medical daily. To Branch bumps mupirocin 2 2021-0 Yes [id number] Apply to [facility] % ointment 8-31 area(s) 3 ity of 00:00: (three) [place] 00 times Medical daily. To Branch open wounds triamcinolo 2-0 Yes [id number] Apply to [facility] ne 8-31 area(s) 2 ity of acetonide 00:00: (two) [place] 0.1 % cream 00 times Medical daily. To Branch bumps mupirocin 2 2021-0 Yes [id number] Apply to [facility] % ointment 8-31 area(s) 3 ity of 00:00: (three) [place] 00 times Medical daily. To Branch open wounds triamcinolo 2-0 Yes [id number] Apply to [facility] ne 8-31 area(s) 2 ity of acetonide 00:00: (two) [place] 0.1 % cream 00 times Medical daily. To Branch bumps mupirocin 2 2-0 Yes [id number] Apply to [facility] % ointment 8-31 area(s) 3 ity of 00:00: (three) [place] 00 times Medical daily. To Branch open wounds triamcinolo 2-0 Yes [id number] Apply to [facility] ne 8-31 area(s) 2 ity of acetonide 00:00: (two) [place] 0.1 % cream 00 times Medical daily. To Branch bumps mupirocin 2 2-0 Yes [id number] Apply to [facility] % ointment 8-31 area(s) 3 ity of 00:00: (three) [place] 00 times Medical daily. To Branch open wounds triamcinolo 2-0 Yes [id number] Apply to [facility] ne 8-31 area(s) 2 ity of acetonide 00:00: (two) [place] 0.1 % cream 00 times Medical daily. To Branch bumps mupirocin 2 2021-0 Yes [id number] Apply to [facility] % ointment 8-31 area(s) 3 ity of 00:00: (three) [place] 00 times Medical daily. To Branch open wounds triamcinolo 2-0 Yes [id number] Apply to [facility] ne 8-31 area(s) 2 ity of acetonide 00:00: (two) [place] 0.1 % cream 00 times Medical daily. To Branch bumps mupirocin 2 2-0 Yes [id number] Apply to [facility] % ointment 8-31 area(s) 3 ity of 00:00: (three) [place] 00 times Medical daily. To Branch open wounds triamcinolo 2-0 Yes [id number] Apply to [facility] ne 8-31 area(s) 2 ity of acetonide 00:00: (two) [place] 0.1 % cream 00 times Medical daily. To Branch bumps mupirocin 2 2-0 Yes [id number] Apply to [facility] % ointment 8-31 area(s) 3 ity of 00:00: (three) [place] 00 times Medical daily. To Branch open wounds triamcinolo 2-0 Yes [id number] Apply to [facility] ne 8-31 area(s) 2 ity of acetonide 00:00: (two) [place] 0.1 % cream 00 times Medical daily. To Branch bumps mupirocin 2 2-0 Yes [id number] Apply to [facility] % ointment 8-31 area(s) 3 ity of 00:00: (three) [place] 00 times Medical daily. To Branch open wounds triamcinolo 2-0 Yes [id number] Apply to [facility] ne 8-31 area(s) 2 ity of acetonide 00:00: (two) [place] 0.1 % cream 00 times Medical daily. To Branch bumps mupirocin 2 2021-0 Yes [id number] Apply to [facility] % ointment 8-31 area(s) 3 ity of 00:00: (three) [place] 00 times Medical daily. To Branch open wounds triamcinolo 2-0 Yes [id number] Apply to [facility] ne 8-31 area(s) 2 ity of acetonide 00:00: (two) [place] 0.1 % cream 00 times Medical daily. To Branch bumps mupirocin 2 2021-0 Yes [id number] Apply to [facility] % ointment 8-31 area(s) 3 ity of 00:00: (three) [place] 00 times Medical daily. To Branch open wounds triamcinolo 2-0 Yes [id number] Apply to [facility] ne 8-31 area(s) 2 ity of acetonide 00:00: (two) [place] 0.1 % cream 00 times Medical daily. To Branch bumps mupirocin 2 2-0 Yes [id number] Apply to [facility] % ointment 8-31 area(s) 3 ity of 00:00: (three) [place] 00 times Medical daily. To Branch open wounds triamcinolo 2-0 Yes [id number] Apply to [facility] ne 8-31 area(s) 2 ity of acetonide 00:00: (two) [place] 0.1 % cream 00 times Medical daily. To Branch bumps mupirocin 2 2-0 Yes [id number] Apply to [facility] % ointment 8-31 area(s) 3 ity of 00:00: (three) [place] 00 times Medical daily. To Branch open wounds triamcinolo 2-0 Yes [id number] Apply to [facility] ne 8-31 area(s) 2 ity of acetonide 00:00: (two) [place] 0.1 % cream 00 times Medical daily. To Branch bumps mupirocin 2 2021-0 Yes [id number] Apply to [facility] % ointment 8-31 area(s) 3 ity of 00:00: (three) [place] 00 times Medical daily. To Branch open wounds triamcinolo 2021-0 Yes [id number] Apply to [facility] ne 8-31 area(s) 2 ity of acetonide 00:00: (two) [place] 0.1 % cream 00 times Medical daily. To Branch bumps mupirocin 2 2021-0 Yes [id number] Apply to [facility] % ointment 8-31 area(s) 3 ity of 00:00: (three) [place] 00 times Medical daily. To Branch open wounds triamcinolo 2021-0 Yes [id number] Apply to [facility] ne 8-31 area(s) 2 ity of acetonide 00:00: (two) [place] 0.1 % cream 00 times Medical daily. To Branch bumps mupirocin 2 2021-0 Yes [id number] Apply to [facility] % ointment 8-31 area(s) 3 ity of 00:00: (three) [place] 00 times Medical daily. To Branch open wounds triamcinolo 2021-0 Yes [id number] Apply to [facility] ne 8-31 area(s) 2 ity of acetonide 00:00: (two) [place] 0.1 % cream 00 times Medical daily. To Branch bumps mupirocin 2 2021-0 Yes [id number] Apply to [facility] % ointment 8-31 area(s) 3 ity of 00:00: (three) [place] 00 times Medical daily. To Branch open wounds dextroamphe 2021-0 Yes [id number] 20mg Take 1 [facility] tamine-amph 8-31 tablet by ity of etamine 00:00: mouth in [place] ([facility]) 00 the Medical 20 mg morning Branch tablet and 1 tablet at noon and 1 tablet in the evening. triamcinolo 2-0 Yes [id number] Apply to [facility] ne 8-31 area(s) 2 ity of acetonide 00:00: (two) [place] 0.1 % cream 00 times Medical daily. To Branch bumps mupirocin 2 2021-0 Yes [id number] Apply to [facility] % ointment 8-31 area(s) 3 ity of 00:00: (three) [place] 00 times Medical daily. To Branch open wounds dextroamphe 2-0 Yes [id number] 20mg Take 1 [facility] tamine-amph 8-31 tablet by ity of etamine 00:00: mouth in [place] ([facility]) 00 the Medical 20 mg morning Branch tablet and 1 tablet at noon and 1 tablet in the evening. triamcinolo 2022-0 Yes [id number] Apply to [facility] ne 8-31 area(s) 2 ity of acetonide 00:00: (two) [place] 0.1 % cream 00 times Medical daily. To Branch bumps mupirocin 2 2021-0 Yes [id number] Apply to [facility] % ointment 8-31 area(s) 3 ity of 00:00: (three) [place] 00 times Medical daily. To Branch open wounds dextroamphe 2021-0 Yes [id number] 20mg Take 1 [facility] tamine-amph 8-31 tablet by ity of etamine 00:00: mouth in [place] ([facility]) 00 the Medical 20 mg morning Branch tablet and 1 tablet at noon and 1 tablet in the evening. triamcinolo 2-0 Yes [id number] Apply to [facility] ne 8-31 area(s) 2 ity of acetonide 00:00: (two) [place] 0.1 % cream 00 times Medical daily. To Branch bumps mupirocin 2 2021-0 Yes [id number] Apply to [facility] % ointment 8-31 area(s) 3 ity of 00:00: (three) [place] 00 times Medical daily. To Branch open wounds triamcinolo 2-0 Yes [id number] Apply to [facility] ne 8-31 area(s) 2 ity of acetonide 00:00: (two) [place] 0.1 % cream 00 times Medical daily. To Branch bumps mupirocin 2 2021-0 Yes [id number] Apply to [facility] % ointment 8-31 area(s) 3 ity of 00:00: (three) [place] 00 times Medical daily. To Branch open wounds triamcinolo 2022-0 Yes [id number] Apply to [facility] ne 8-31 area(s) 2 ity of acetonide 00:00: (two) [place] 0.1 % cream 00 times Medical daily. To Branch bumps mupirocin 2 2-0 Yes [id number] Apply to [facility] % ointment 8-31 area(s) 3 ity of 00:00: (three) [place] 00 times Medical daily. To Branch open wounds triamcinolo 2022-0 Yes [id number] Apply to [facility] ne 8-31 area(s) 2 ity of acetonide 00:00: (two) [place] 0.1 % cream 00 times Medical daily. To Branch bumps mupirocin 2 2021-0 Yes [id number] Apply to [facility] % ointment 8-31 area(s) 3 ity of 00:00: (three) [place] 00 times Medical daily. To Branch open wounds triamcinolo 2-0 Yes [id number] Apply to [facility] ne 8-31 area(s) 2 ity of acetonide 00:00: (two) [place] 0.1 % cream 00 times Medical daily. To Branch bumps mupirocin 2 2021-0 Yes [id number] Apply to [facility] % ointment 8-31 area(s) 3 ity of 00:00: (three) [place] 00 times Medical daily. To Branch open wounds triamcinolo 2-0 Yes [id number] Apply to [facility] ne 8-31 area(s) 2 ity of acetonide 00:00: (two) [place] 0.1 % cream 00 times Medical daily. To Branch bumps mupirocin 2 2021-0 Yes [id number] Apply to [facility] % ointment 8-31 area(s) 3 ity of 00:00: (three) [place] 00 times Medical daily. To Branch open wounds triamcinolo 2-0 Yes [id number] Apply to [facility] ne 8-31 area(s) 2 ity of acetonide 00:00: (two) [place] 0.1 % cream 00 times Medical daily. To Branch bumps mupirocin 2 2-0 Yes [id number] Apply to [facility] % ointment 8-31 area(s) 3 ity of 00:00: (three) [place] 00 times Medical daily. To Branch open wounds triamcinolo 2-0 Yes [id number] Apply to [facility] ne 8-31 area(s) 2 ity of acetonide 00:00: (two) [place] 0.1 % cream 00 times Medical daily. To Branch bumps mupirocin 2 2-0 Yes [id number] Apply to [facility] % ointment 8-31 area(s) 3 ity of 00:00: (three) [place] 00 times Medical daily. To Branch open wounds triamcinolo 2-0 Yes [id number] Apply to [facility] ne 8-31 area(s) 2 ity of acetonide 00:00: (two) [place] 0.1 % cream 00 times Medical daily. To Branch bumps mupirocin 2 2021-0 Yes [id number] Apply to [facility] % ointment 8-31 area(s) 3 ity of 00:00: (three) [place] 00 times Medical daily. To Branch open wounds triamcinolo 2021-0 Yes [id number] Apply to [facility] ne 8-31 area(s) 2 ity of acetonide 00:00: (two) [place] 0.1 % cream 00 times Medical daily. To Branch bumps mupirocin 2 2021-0 Yes [id number] Apply to [facility] % ointment 8-31 area(s) 3 ity of 00:00: (three) [place] 00 times Medical daily. To Branch open wounds triamcinolo 2-0 Yes [id number] Apply to [facility] ne 8-31 area(s) 2 ity of acetonide 00:00: (two) [place] 0.1 % cream 00 times Medical daily. To Branch bumps mupirocin 2 2-0 Yes [id number] Apply to [facility] % ointment 8-31 area(s) 3 ity of 00:00: (three) [place] 00 times Medical daily. To Branch open wounds triamcinolo 2-0 Yes [id number] Apply to [facility] ne 8-31 area(s) 2 ity of acetonide 00:00: (two) [place] 0.1 % cream 00 times Medical daily. To Branch bumps mupirocin 2 2-0 Yes [id number] Apply to [facility] % ointment 8-31 area(s) 3 ity of 00:00: (three) [place] 00 times Medical daily. To Branch open wounds triamcinolo 2022-0 Yes [id number] Apply to [facility] ne 8-31 area(s) 2 ity of acetonide 00:00: (two) [place] 0.1 % cream 00 times Medical daily. To Branch bumps mupirocin 2 2021-0 Yes [id number] Apply to [facility] % ointment 8-31 area(s) 3 ity of 00:00: (three) [place] 00 times Medical daily. To Branch open wounds triamcinolo 2-0 Yes [id number] Apply to [facility] ne 8-31 area(s) 2 ity of acetonide 00:00: (two) [place] 0.1 % cream 00 times Medical daily. To Branch bumps mupirocin 2 2021-0 Yes [id number] Apply to [facility] % ointment 8-31 area(s) 3 ity of 00:00: (three) [place] 00 times Medical daily. To Branch open wounds triamcinolo 2021-0 Yes [id number] Apply to [facility] ne 8-31 area(s) 2 ity of acetonide 00:00: (two) [place] 0.1 % cream 00 times Medical daily. To Branch bumps mupirocin 2 2021-0 Yes [id number] Apply to [facility] % ointment 8-31 area(s) 3 ity of 00:00: (three) [place] 00 times Medical daily. To Branch open wounds triamcinolo 2-0 Yes [id number] Apply to [facility] ne 8-31 area(s) 2 ity of acetonide 00:00: (two) [place] 0.1 % cream 00 times Medical daily. To Branch bumps mupirocin 2 2021-0 Yes [id number] Apply to [facility] % ointment 8-31 area(s) 3 ity of 00:00: (three) [place] 00 times Medical daily. To Branch open wounds triamcinolo 2-0 Yes [id number] Apply to [facility] ne 8-31 area(s) 2 ity of acetonide 00:00: (two) [place] 0.1 % cream 00 times Medical daily. To Branch bumps mupirocin 2 2-0 Yes [id number] Apply to [facility] % ointment 8-31 area(s) 3 ity of 00:00: (three) [place] 00 times Medical daily. To Branch open wounds triamcinolo 2-0 Yes [id number] Apply to [facility] ne 8-31 area(s) 2 ity of acetonide 00:00: (two) [place] 0.1 % cream 00 times Medical daily. To Branch bumps mupirocin 2 2-0 Yes [id number] Apply to [facility] % ointment 8-31 area(s) 3 ity of 00:00: (three) [place] 00 times Medical daily. To Branch open wounds triamcinolo 2-0 Yes [id number] Apply to [facility] ne 8-31 area(s) 2 ity of acetonide 00:00: (two) [place] 0.1 % cream 00 times Medical daily. To Branch bumps mupirocin 2 2-0 Yes [id number] Apply to [facility] % ointment 8-31 area(s) 3 ity of 00:00: (three) [place] 00 times Medical daily. To Branch open wounds triamcinolo 2-0 Yes [id number] Apply to [facility] ne 8-31 area(s) 2 ity of acetonide 00:00: (two) [place] 0.1 % cream 00 times Medical daily. To Branch bumps mupirocin 2 2021-0 Yes [id number] Apply to [facility] % ointment 8-31 area(s) 3 ity of 00:00: (three) [place] 00 times Medical daily. To Branch open wounds triamcinolo 2-0 Yes [id number] Apply to [facility] ne 8-31 area(s) 2 ity of acetonide 00:00: (two) [place] 0.1 % cream 00 times Medical daily. To Branch bumps mupirocin 2 2-0 Yes [id number] Apply to [facility] % ointment 8-31 area(s) 3 ity of 00:00: (three) [place] 00 times Medical daily. To Branch open wounds triamcinolo 2-0 Yes [id number] Apply to [facility] ne 8-31 area(s) 2 ity of acetonide 00:00: (two) [place] 0.1 % cream 00 times Medical daily. To Branch bumps mupirocin 2 2-0 Yes [id number] Apply to [facility] % ointment 8-31 area(s) 3 ity of 00:00: (three) [place] 00 times Medical daily. To Branch open wounds triamcinolo 2-0 Yes [id number] Apply to [facility] ne 8-31 area(s) 2 ity of acetonide 00:00: (two) [place] 0.1 % cream 00 times Medical daily. To Branch bumps mupirocin 2 2-0 Yes [id number] Apply to [facility] % ointment 8-31 area(s) 3 ity of 00:00: (three) [place] 00 times Medical daily. To Branch open wounds triamcinolo 2-0 Yes [id number] Apply to [facility] ne 8-31 area(s) 2 ity of acetonide 00:00: (two) [place] 0.1 % cream 00 times Medical daily. To Branch bumps mupirocin 2 2021-0 Yes [id number] Apply to [facility] % ointment 8-31 area(s) 3 ity of 00:00: (three) [place] 00 times Medical daily. To Branch open wounds triamcinolo 2-0 Yes [id number] Apply to [facility] ne 8-31 area(s) 2 ity of acetonide 00:00: (two) [place] 0.1 % cream 00 times Medical daily. To Branch bumps mupirocin 2 2021-0 Yes [id number] Apply to [facility] % ointment 8-31 area(s) 3 ity of 00:00: (three) [place] 00 times Medical daily. To Branch open wounds triamcinolo 2-0 Yes [id number] Apply to [facility] ne 8-31 area(s) 2 ity of acetonide 00:00: (two) [place] 0.1 % cream 00 times Medical daily. To Branch bumps mupirocin 2 2-0 Yes [id number] Apply to [facility] % ointment 8-31 area(s) 3 ity of 00:00: (three) [place] 00 times Medical daily. To Branch open wounds triamcinolo 2-0 Yes [id number] Apply to [facility] ne 8-31 area(s) 2 ity of acetonide 00:00: (two) [place] 0.1 % cream 00 times Medical daily. To Branch bumps mupirocin 2 2-0 Yes [id number] Apply to [facility] % ointment 8-31 area(s) 3 ity of 00:00: (three) [place] 00 times Medical daily. To Branch open wounds triamcinolo 2-0 Yes [id number] Apply to [facility] ne 8-31 area(s) 2 ity of acetonide 00:00: (two) [place] 0.1 % cream 00 times Medical daily. To Branch bumps mupirocin 2 2-0 Yes [id number] Apply to [facility] % ointment 8-31 area(s) 3 ity of 00:00: (three) [place] 00 times Medical daily. To Branch open wounds triamcinolo 2-0 Yes [id number] Apply to [facility] ne 8-31 area(s) 2 ity of acetonide 00:00: (two) [place] 0.1 % cream 00 times Medical daily. To Branch bumps mupirocin 2 2021-0 Yes [id number] Apply to [facility] % ointment 8-31 area(s) 3 ity of 00:00: (three) [place] 00 times Medical daily. To Branch open wounds triamcinolo 2021-0 Yes [id number] Apply to [facility] ne 8-31 area(s) 2 ity of acetonide 00:00: (two) [place] 0.1 % cream 00 times Medical daily. To Branch bumps mupirocin 2 2021-0 Yes [id number] Apply to [facility] % ointment 8-31 area(s) 3 ity of 00:00: (three) [place] 00 times Medical daily. To Branch open wounds triamcinolo 2-0 Yes [id number] Apply to [facility] ne 8-31 area(s) 2 ity of acetonide 00:00: (two) [place] 0.1 % cream 00 times Medical daily. To Branch bumps mupirocin 2 2-0 Yes [id number] Apply to [facility] % ointment 8-31 area(s) 3 ity of 00:00: (three) [place] 00 times Medical daily. To Branch open wounds triamcinolo 2-0 Yes [id number] Apply to [facility] ne 8-31 area(s) 2 ity of acetonide 00:00: (two) [place] 0.1 % cream 00 times Medical daily. To Branch bumps mupirocin 2 2-0 Yes [id number] Apply to [facility] % ointment 8-31 area(s) 3 ity of 00:00: (three) [place] 00 times Medical daily. To Branch open wounds triamcinolo 2-0 Yes [id number] Apply to [facility] ne 8-31 area(s) 2 ity of acetonide 00:00: (two) [place] 0.1 % cream 00 times Medical daily. To Branch bumps mupirocin 2 2021-0 Yes [id number] Apply to [facility] % ointment 8-31 area(s) 3 ity of 00:00: (three) [place] 00 times Medical daily. To Branch open wounds triamcinolo 2021-0 Yes [id number] Apply to [facility] ne 8-31 area(s) 2 ity of acetonide 00:00: (two) [place] 0.1 % cream 00 times Medical daily. To Branch bumps mupirocin 2 2021-0 Yes [id number] Apply to [facility] % ointment 8-31 area(s) 3 ity of 00:00: (three) [place] 00 times Medical daily. To Branch open wounds triamcinolo 2021-0 Yes [id number] Apply to [facility] ne 8-31 area(s) 2 ity of acetonide 00:00: (two) [place] 0.1 % cream 00 times Medical daily. To Branch bumps mupirocin 2 2021-0 Yes [id number] Apply to [facility] % ointment 8-31 area(s) 3 ity of 00:00: (three) [place] 00 times Medical daily. To Branch open wounds triamcinolo 2-0 Yes [id number] Apply to [facility] ne 8-31 area(s) 2 ity of acetonide 00:00: (two) [place] 0.1 % cream 00 times Medical daily. To Branch bumps mupirocin 2 2-0 Yes [id number] Apply to [facility] % ointment 8-31 area(s) 3 ity of 00:00: (three) [place] 00 times Medical daily. To Branch open wounds triamcinolo 2-0 Yes [id number] Apply to [facility] ne 8-31 area(s) 2 ity of acetonide 00:00: (two) [place] 0.1 % cream 00 times Medical daily. To Branch bumps mupirocin 2 2-0 Yes [id number] Apply to [facility] % ointment 8-31 area(s) 3 ity of 00:00: (three) [place] 00 times Medical daily. To Branch open wounds triamcinolo 2-0 Yes [id number] Apply to [facility] ne 8-31 area(s) 2 ity of acetonide 00:00: (two) [place] 0.1 % cream 00 times Medical daily. To Branch bumps mupirocin 2 2021-0 Yes [id number] Apply to [facility] % ointment 8-31 area(s) 3 ity of 00:00: (three) [place] 00 times Medical daily. To Branch open wounds triamcinolo 2-0 Yes [id number] Apply to [facility] ne 8-31 area(s) 2 ity of acetonide 00:00: (two) [place] 0.1 % cream 00 times Medical daily. To Branch bumps mupirocin 2 2021-0 Yes [id number] Apply to [facility] % ointment 8-31 area(s) 3 ity of 00:00: (three) [place] 00 times Medical daily. To Branch open wounds triamcinolo 2021-0 Yes [id number] Apply to [facility] ne 8-31 area(s) 2 ity of acetonide 00:00: (two) [place] 0.1 % cream 00 times Medical daily. To Branch bumps mupirocin 2 2021-0 Yes [id number] Apply to [facility] % ointment 8-31 area(s) 3 ity of 00:00: (three) [place] 00 times Medical daily. To Branch open wounds triamcinolo 2-0 Yes [id number] Apply to [facility] ne 8-31 area(s) 2 ity of acetonide 00:00: (two) [place] 0.1 % cream 00 times Medical daily. To Branch bumps mupirocin 2 2-0 Yes [id number] Apply to [facility] % ointment 8-31 area(s) 3 ity of 00:00: (three) [place] 00 times Medical daily. To Branch open wounds triamcinolo 2-0 Yes [id number] Apply to [facility] ne 8-31 area(s) 2 ity of acetonide 00:00: (two) [place] 0.1 % cream 00 times Medical daily. To Branch bumps mupirocin 2 2-0 Yes [id number] Apply to [facility] % ointment 8-31 area(s) 3 ity of 00:00: (three) [place] 00 times Medical daily. To Branch open wounds triamcinolo 2-0 Yes [id number] Apply to [facility] ne 8-31 area(s) 2 ity of acetonide 00:00: (two) [place] 0.1 % cream 00 times Medical daily. To Branch bumps mupirocin 2 2021-0 Yes [id number] Apply to [facility] % ointment 8-31 area(s) 3 ity of 00:00: (three) [place] 00 times Medical daily. To Branch open wounds triamcinolo 2-0 Yes [id number] Apply to [facility] ne 8-31 area(s) 2 ity of acetonide 00:00: (two) [place] 0.1 % cream 00 times Medical daily. To Branch bumps mupirocin 2 2021-0 Yes [id number] Apply to [facility] % ointment 8-31 area(s) 3 ity of 00:00: (three) [place] 00 times Medical daily. To Branch open wounds triamcinolo 2-0 Yes [id number] Apply to [facility] ne 8-31 area(s) 2 ity of acetonide 00:00: (two) [place] 0.1 % cream 00 times Medical daily. To Branch bumps mupirocin 2 2021-0 Yes [id number] Apply to [facility] % ointment 8-31 area(s) 3 ity of 00:00: (three) [place] 00 times Medical daily. To Branch open wounds triamcinolo 2-0 Yes [id number] Apply to [facility] ne 8-31 area(s) 2 ity of acetonide 00:00: (two) [place] 0.1 % cream 00 times Medical daily. To Branch bumps mupirocin 2 2-0 Yes [id number] Apply to [facility] % ointment 8-31 area(s) 3 ity of 00:00: (three) [place] 00 times Medical daily. To Branch open wounds triamcinolo 2-0 Yes [id number] Apply to [facility] ne 8-31 area(s) 2 ity of acetonide 00:00: (two) [place] 0.1 % cream 00 times Medical daily. To Branch bumps mupirocin 2 2-0 Yes [id number] Apply to [facility] % ointment 8-31 area(s) 3 ity of 00:00: (three) [place] 00 times Medical daily. To Branch open wounds triamcinolo 2-0 Yes [id number] Apply to [facility] ne 8-31 area(s) 2 ity of acetonide 00:00: (two) [place] 0.1 % cream 00 times Medical daily. To Branch bumps mupirocin 2 2021-0 Yes [id number] Apply to [facility] % ointment 8-31 area(s) 3 ity of 00:00: (three) [place] 00 times Medical daily. To Branch open wounds triamcinolo 2-0 Yes [id number] Apply to [facility] ne 8-31 area(s) 2 ity of acetonide 00:00: (two) [place] 0.1 % cream 00 times Medical daily. To Branch bumps mupirocin 2 2021-0 Yes [id number] Apply to [facility] % ointment 8-31 area(s) 3 ity of 00:00: (three) [place] 00 times Medical daily. To Branch open wounds triamcinolo 2-0 Yes [id number] Apply to [facility] ne 8-31 area(s) 2 ity of acetonide 00:00: (two) [place] 0.1 % cream 00 times Medical daily. To Branch bumps mupirocin 2 2-0 Yes [id number] Apply to [facility] % ointment 8-31 area(s) 3 ity of 00:00: (three) [place] 00 times Medical daily. To Branch open wounds triamcinolo 2-0 Yes [id number] Apply to [facility] ne 8-31 area(s) 2 ity of acetonide 00:00: (two) [place] 0.1 % cream 00 times Medical daily. To Branch bumps mupirocin 2 2-0 Yes [id number] Apply to [facility] % ointment 8-31 area(s) 3 ity of 00:00: (three) [place] 00 times Medical daily. To Branch open wounds triamcinolo 2-0 Yes [id number] Apply to [facility] ne 8-31 area(s) 2 ity of acetonide 00:00: (two) [place] 0.1 % cream 00 times Medical daily. To Branch bumps mupirocin 2 2021-0 Yes [id number] Apply to [facility] % ointment 8-31 area(s) 3 ity of 00:00: (three) [place] 00 times Medical daily. To Branch open wounds triamcinolo 2021-0 Yes [id number] Apply to [facility] ne 8-31 area(s) 2 ity of acetonide 00:00: (two) [place] 0.1 % cream 00 times Medical daily. To Branch bumps mupirocin 2 2021-0 Yes [id number] Apply to [facility] % ointment 8-31 area(s) 3 ity of 00:00: (three) [place] 00 times Medical daily. To Branch open wounds triamcinolo 2021-0 Yes [id number] Apply to [facility] ne 8-31 area(s) 2 ity of acetonide 00:00: (two) [place] 0.1 % cream 00 times Medical daily. To Branch bumps mupirocin 2 2021-0 Yes [id number] Apply to [facility] % ointment 8-31 area(s) 3 ity of 00:00: (three) [place] 00 times Medical daily. To Branch open wounds triamcinolo 2021-0 Yes [id number] Apply to [facility] ne 8-31 area(s) 2 ity of acetonide 00:00: (two) [place] 0.1 % cream 00 times Medical daily. To Branch bumps mupirocin 2 2021-0 Yes [id number] Apply to [facility] % ointment 8-31 area(s) 3 ity of 00:00: (three) [place] 00 times Medical daily. To Branch open wounds triamcinolo 2022-0 2023- No [id number] Apply to [facility] ne 8-31 05-09 area(s) 2 ity of acetonide 00:00: 00:00 (two) [place] 0.1 % cream 00 :00 times Medical daily. To Branch bumps mupirocin 2 2021-0 3- No [id number] Apply to [facility] % ointment 8-31 05-09 area(s) 3 ity of 00:00: 00:00 (three) [place] 00 :00 times Medical daily. To Branch open wounds triamcinolo 2022- No [id number] Apply to [facility] ne 11-26 area(s) 2 ity of acetonide 00:00: 00:00 (two) [place] 0.1 % cream 00 :00 times Medical daily. To Branch bumps mupirocin 2 2022- No [id number] Apply to [facility] % ointment 11-26 area(s) 3 ity of 00:00: 00:00 (three) [place] 00 :00 times Medical daily. To Branch open wounds dextroamphe 2021- No [id number] 20mg Take 1 [facility] tamine-amph 11-26 tablet by it y of etamine 00:00: 00:00 mouth in [place] (ADDERALL) 00 :00 the Medical 20 mg morning Branch tablet and 1 tablet at noon and 1 tablet in the evening. amoxicillin Yes [id number] 1{tbl} Take 1 [facility] -clavulanat 8-30 tablet by ity of e 875-125 00:00: mouth [place] mg per 00 every 12 Medical tablet (twelve) Branch hours. amoxicillin 2021- Yes [id number] 1{tbl} Take 1 [facility] -clavulanat 8-30 tablet by ity of e 875-125 00:00: mouth [place] mg per 00 every 12 Medical tablet (twelve) Branch hours. amoxicillin 2021- Yes [id number] 1{tbl} Take 1 [facility] -clavulanat 8-30 tablet by ity of e 875-125 00:00: mouth [place] mg per 00 every 12 Medical tablet (twelve) Branch hours. amoxicillin 2021-0 Yes [id number] 1{tbl} Take 1 [facility] -clavulanat 8-30 tablet by ity of e 875-125 00:00: mouth [place] mg per 00 every 12 Medical tablet (twelve) Branch hours. amoxicillin 2021-0 Yes [id number] 1{tbl} Take 1 [facility] -clavulanat 8-30 tablet by ity of e 875-125 00:00: mouth [place] mg per 00 every 12 Medical tablet (twelve) Branch hours. amoxicillin 2021-0 Yes [id number] 1{tbl} Take 1 [facility] -clavulanat 8-30 tablet by ity of e 875-125 00:00: mouth [place] mg per 00 every 12 Medical tablet (twelve) Branch hours. amoxicillin 2022-0 Yes [id number] 1{tbl} Take 1 [facility] -clavulanat 8-30 tablet by ity of e 875-125 00:00: mouth [place] mg per 00 every 12 Medical tablet (twelve) Branch hours. amoxicillin 2022-0 Yes [id number] 1{tbl} Take 1 [facility] -clavulanat 8-30 tablet by ity of e 875-125 00:00: mouth [place] mg per 00 every 12 Medical tablet (twelve) Branch hours. amoxicillin 202-0 Yes [id number] 1{tbl} Take 1 [facility] -clavulanat 8-30 tablet by ity of e 875-125 00:00: mouth [place] mg per 00 every 12 Medical tablet (twelve) Branch hours. amoxicillin 2021-0 Yes [id number] 1{tbl} Take 1 [facility] -clavulanat 8-30 tablet by ity of e 875-125 00:00: mouth [place] mg per 00 every 12 Medical tablet (twelve) Branch hours. amoxicillin 202-0 Yes [id number] 1{tbl} Take 1 [facility] -clavulanat 8-30 tablet by ity of e 875-125 00:00: mouth [place] mg per 00 every 12 Medical tablet (twelve) Branch hours. amoxicillin 2021-0 Yes [id number] 1{tbl} Take 1 [facility] -clavulanat 8-30 tablet by ity of e 875-125 00:00: mouth [place] mg per 00 every 12 Medical tablet (twelve) Branch hours. amoxicillin 2022-0 Yes [id number] 1{tbl} Take 1 [facility] -clavulanat 8-30 tablet by ity of e 875-125 00:00: mouth [place] mg per 00 every 12 Medical tablet (twelve) Branch hours. amoxicillin 2022-0 Yes [id number] 1{tbl} Take 1 [facility] -clavulanat 8-30 tablet by ity of e 875-125 00:00: mouth [place] mg per 00 every 12 Medical tablet (twelve) Branch hours. amoxicillin 2022-0 Yes [id number] 1{tbl} Take 1 [facility] -clavulanat 8-30 tablet by ity of e 875-125 00:00: mouth [place] mg per 00 every 12 Medical tablet (twelve) Branch hours. amoxicillin Yes [id number] 1{tbl} Take 1 [facility] -clavulanat 8-30 tablet by ity of e 875-125 00:00: mouth [place] mg per 00 every 12 Medical tablet (twelve) Branch hours. amoxicillin Yes [id number] 1{tbl} Take 1 [facility] -clavulanat 8-30 tablet by ity of e 875-125 00:00: mouth [place] mg per 00 every 12 Medical tablet (twelve) Branch hours. amoxicillin 2021- Yes [id number] 1{tbl} Take 1 [facility] -clavulanat 8-30 tablet by ity of e 875-125 00:00: mouth [place] mg per 00 every 12 Medical tablet (twelve) Branch hours. amoxicillin 2021- No [id number] 1{tbl} Take 1 [facility] -clavulanat 8-30 11-01 tablet by it y of e 875-125 00:00: 00:00 mouth [place] mg per 00 :00 every 12 Medical tablet (twelve) Branch hours. amoxicillin 2021- No [id number] 1{tbl} Take 1 [facility] -clavulanat 8-30 11-01 tablet by it y of e 875-125 00:00: 00:00 mouth [place] mg per 00 :00 every 12 Medical tablet (twelve) Branch hours. permethrin Yes [id number] Apply to [facility] (ELIMITE) 5 8- skin and ity of % cream 00:00: leave on [place] 00 for 8 - 10 Medical hours then Branch repeat in a week permethrin 2021- No [id number] Apply to [facility] (ELIMITE) 5 8- 09-08 skin and ity of % cream 00:00: 00:00 leave on [place] 00 :00 for 8 - 10 Medical hours then Branch repeat in a week permethrin 2021- No [id number] Apply to [facility] (ELIMITE) 5 8- 09-08 skin and ity of % cream 00:00: 00:00 leave on [place] 00 :00 for 8 - 10 Medical hours then Branch repeat in a week TRAZODONE 2021- Yes [id number] TAKE 1 [facility] vers 50 mg 8-08 TABLET BY ity of tablet 00:00: MOUTH 00 EVERYDAY Medical AT BEDTIME Branch TRAZODONE 2022-0 Yes [id number] TAKE 1 [facility] vers 50 mg 8-08 TABLET BY ity of tablet 00:00: MOUTH EVERYDAY Medical AT BEDTIME Branch TRAZODONE 2-0 Yes [id number] TAKE 1 [facility] vers 50 mg 8-08 TABLET BY ity of tablet 00:00: MOUTH EVERYDAY Medical AT BEDTIME Branch TRAZODONE 2-0 Yes [id number] TAKE 1 [facility] vers 50 mg 8-08 TABLET BY ity of tablet 00:00: MOUTH EVERYDAY Medical AT BEDTIME Branch TRAZODONE 2-0 Yes [id number] TAKE 1 [facility] vers 50 mg 8-08 TABLET BY ity of tablet 00:00: MOUTH EVERYDAY Medical AT BEDTIME Branch TRAZODONE 2-0 Yes [id number] TAKE 1 [facility] vers 50 mg 8-08 TABLET BY ity of tablet 00:00: MOUTH EVERYDAY Medical AT BEDTIME Branch TRAZODONE 2-0 Yes [id number] TAKE 1 [facility] vers 50 mg 8-08 TABLET BY ity of tablet 00:00: MOUTH EVERYDAY Medical AT BEDTIME Branch TRAZODONE 2-0 Yes [id number] TAKE 1 [facility] vers 50 mg 8-08 TABLET BY ity of tablet 00:00: MOUTH EVERYDAY Medical AT BEDTIME Branch TRAZODONE 2-0 Yes [id number] TAKE 1 [facility] vers 50 mg 8-08 TABLET BY ity of tablet 00:00: MOUTH EVERYDAY Medical AT BEDTIME Branch TRAZODONE 2-0 Yes [id number] TAKE 1 [facility] vers 50 mg 8-08 TABLET BY ity of tablet 00:00: MOUTH EVERYDAY Medical AT BEDTIME Branch TRAZODONE 2-0 Yes [id number] TAKE 1 [facility] vers 50 mg 8-08 TABLET BY ity of tablet 00:00: MOUTH 00 EVERYDAY Medical AT BEDTIME Branch TRAZODONE 2022-0 Yes [id number] TAKE 1 [facility] vers 50 mg 8-08 TABLET BY ity of tablet 00:00: MOUTH 00 EVERYDAY Medical AT BEDTIME Branch TRAZODONE 2-0 Yes [id number] TAKE 1 [facility] vers 50 mg 8-08 TABLET BY ity of tablet 00:00: MOUTH 00 EVERYDAY Medical AT BEDTIME Branch TRAZODONE 2-0 Yes [id number] TAKE 1 [facility] vers 50 mg 8-08 TABLET BY ity of tablet 00:00: MOUTH EVERYDAY Medical AT BEDTIME Branch TRAZODONE 2-0 Yes [id number] TAKE 1 [facility] vers 50 mg 8-08 TABLET BY ity of tablet 00:00: MOUTH EVERYDAY Medical AT BEDTIME Branch TRAZODONE 2021-0 Yes [id number] TAKE 1 [facility] vers 50 mg 8-08 TABLET BY ity of tablet 00:00: MOUTH EVERYDAY Medical AT BEDTIME Branch TRAZODONE 2021-0 Yes [id number] TAKE 1 [facility] vers 50 mg 8-08 TABLET BY ity of tablet 00:00: MOUTH EVERYDAY Medical AT BEDTIME Branch TRAZODONE 2021-0 Yes [id number] TAKE 1 [facility] vers 50 mg 8-08 TABLET BY ity of tablet 00:00: MOUTH EVERYDAY Medical AT BEDTIME Branch TRAZODONE 2021-0 Yes [id number] TAKE 1 [facility] vers 50 mg 8-08 TABLET BY ity of tablet 00:00: MOUTH EVERYDAY Medical AT BEDTIME Branch TRAZODONE 2021-0 Yes [id number] TAKE 1 [facility] vers 50 mg 8-08 TABLET BY ity of tablet 00:00: MOUTH EVERYDAY Medical AT BEDTIME Branch TRAZODONE 2021-0 Yes [id number] TAKE 1 [facility] vers 50 mg 8-08 TABLET BY ity of tablet 00:00: MOUTH EVERYDAY Medical AT BEDTIME Branch TRAZODONE 2021-0 Yes [id number] TAKE 1 [facility] vers 50 mg 8-08 TABLET BY ity of tablet 00:00: MOUTH EVERYDAY Medical AT BEDTIME Branch TRAZODONE 2-0 Yes [id number] TAKE 1 [facility] vers 50 mg 8-08 TABLET BY ity of tablet 00:00: MOUTH EVERYDAY Medical AT BEDTIME Branch TRAZODONE 2-0 Yes [id number] TAKE 1 [facility] vers 50 mg 8-08 TABLET BY ity of tablet 00:00: MOUTH EVERYDAY Medical AT BEDTIME Branch TRAZODONE 2-0 Yes [id number] TAKE 1 [facility] vers 50 mg 8-08 TABLET BY ity of tablet 00:00: MOUTH EVERYDAY Medical AT BEDTIME Branch TRAZODONE 2021-0 Yes [id number] TAKE 1 [facility] vers 50 mg 8-08 TABLET BY ity of tablet 00:00: MOUTH 00 EVERYDAY Medical AT BEDTIME Branch TRAZODONE 2022-0 Yes [id number] TAKE 1 [facility] vers 50 mg 8-08 TABLET BY ity of tablet 00:00: MOUTH EVERYDAY Medical AT BEDTIME Branch TRAZODONE 2-0 Yes [id number] TAKE 1 [facility] vers 50 mg 8-08 TABLET BY ity of tablet 00:00: MOUTH EVERYDAY Medical AT BEDTIME Branch TRAZODONE 2-0 Yes [id number] TAKE 1 [facility] vers 50 mg 8-08 TABLET BY ity of tablet 00:00: MOUTH EVERYDAY Medical AT BEDTIME Branch TRAZODONE 2-0 Yes [id number] TAKE 1 [facility] vers 50 mg 8-08 TABLET BY ity of tablet 00:00: MOUTH EVERYDAY Medical AT BEDTIME Branch TRAZODONE 2-0 Yes [id number] TAKE 1 [facility] vers 50 mg 8-08 TABLET BY ity of tablet 00:00: MOUTH EVERYDAY Medical AT BEDTIME Branch TRAZODONE 2-0 Yes [id number] TAKE 1 [facility] vers 50 mg 8-08 TABLET BY ity of tablet 00:00: MOUTH EVERYDAY Medical AT BEDTIME Branch TRAZODONE 2-0 Yes [id number] TAKE 1 [facility] vers 50 mg 8-08 TABLET BY ity of tablet 00:00: MOUTH EVERYDAY Medical AT BEDTIME Branch TRAZODONE 2-0 Yes [id number] TAKE 1 [facility] vers 50 mg 8-08 TABLET BY ity of tablet 00:00: MOUTH EVERYDAY Medical AT BEDTIME Branch TRAZODONE 2-0 Yes [id number] TAKE 1 [facility] vers 50 mg 8-08 TABLET BY ity of tablet 00:00: MOUTH EVERYDAY Medical AT BEDTIME Branch TRAZODONE 2-0 Yes [id number] TAKE 1 [facility] 50 mg 8-08 TABLET BY [facility] tablet 00:00: MOUTH 00 EVERYDAY Medical AT BEDTIME Branch TRAZODONE 2022-0 Yes [id number] TAKE 1 [facility] 50 mg 8-08 TABLET BY it[facility] of tablet 00:00: MOUTH 00 EVERYDAY Medical AT BEDTIME Branch TRAZODONE 2-0 Yes [id number] TAKE 1 [facility] 50 mg 8-08 TABLET BY it[facility] of tablet 00:00: MOUTH 00 EVERYDAY Medical AT BEDTIME Branch TRAZODONE 2-0 Yes [id number] TAKE 1 [facility] 50 mg 8-08 TABLET BY ity of tablet 00:00: MOUTH EVERYDAY Medical AT BEDTIME Branch TRAZODONE 2-0 Yes [id number] TAKE 1 [facility] 50 mg 8-08 TABLET BY ity of tablet 00:00: MOUTH EVERYDAY Medical AT BEDTIME Branch TRAZODONE 2021-0 Yes [id number] TAKE 1 [facility] 50 mg 8-08 TABLET BY ity of tablet 00:00: MOUTH EVERYDAY Medical AT BEDTIME Branch TRAZODONE 2021-0 Yes [id number] TAKE 1 [facility] 50 mg 8-08 TABLET BY ity of tablet 00:00: MOUTH EVERYDAY Medical AT BEDTIME Branch TRAZODONE 2021-0 Yes [id number] TAKE 1 [facility] 50 mg 8-08 TABLET BY ity of tablet 00:00: MOUTH EVERYDAY Medical AT BEDTIME Branch TRAZODONE 2021-0 Yes [id number] TAKE 1 [facility] 50 mg 8-08 TABLET BY ity of tablet 00:00: MOUTH EVERYDAY Medical AT BEDTIME Branch TRAZODONE 2021-0 Yes [id number] TAKE 1 [facility] 50 mg 8-08 TABLET BY ity of tablet 00:00: MOUTH EVERYDAY Medical AT BEDTIME Branch TRAZODONE 2021-0 Yes [id number] TAKE 1 [facility] 50 mg 8-08 TABLET BY ity of tablet 00:00: MOUTH EVERYDAY Medical AT BEDTIME Branch TRAZODONE 2021-0 Yes [id number] TAKE 1 [facility] 50 mg 8-08 TABLET BY ity of tablet 00:00: MOUTH EVERYDAY Medical AT BEDTIME Branch TRAZODONE 2-0 Yes [id number] TAKE 1 [facility] 50 mg 8-08 TABLET BY ity of tablet 00:00: MOUTH EVERYDAY Medical AT BEDTIME Branch TRAZODONE 2-0 Yes [id number] TAKE 1 [facility] 50 mg 8-08 TABLET BY ity of tablet 00:00: MOUTH EVERYDAY Medical AT BEDTIME Branch TRAZODONE 2-0 Yes [id number] TAKE 1 [facility] 50 mg 8-08 TABLET BY ity of tablet 00:00: MOUTH EVERYDAY Medical AT BEDTIME Branch TRAZODONE 2021-0 Yes [id number] TAKE 1 [facility] 50 mg 8-08 TABLET BY ity of tablet 00:00: MOUTH 00 EVERYDAY Medical AT BEDTIME Branch TRAZODONE 2022-0 Yes [id number] TAKE 1 [facility] 50 mg 8-08 TABLET BY ity of tablet 00:00: MOUTH EVERYDAY Medical AT BEDTIME Branch TRAZODONE 2-0 Yes [id number] TAKE 1 [facility] 50 mg 8-08 TABLET BY ity of tablet 00:00: MOUTH EVERYDAY Medical AT BEDTIME Branch TRAZODONE 2-0 Yes [id number] TAKE 1 [facility] 50 mg 8-08 TABLET BY ity of tablet 00:00: MOUTH EVERYDAY Medical AT BEDTIME Branch TRAZODONE 2-0 Yes [id number] TAKE 1 [facility] 50 mg 8-08 TABLET BY ity of tablet 00:00: MOUTH EVERYDAY Medical AT BEDTIME Branch TRAZODONE 2-0 Yes [id number] TAKE 1 [facility] 50 mg 8-08 TABLET BY ity of tablet 00:00: MOUTH EVERYDAY Medical AT BEDTIME Branch TRAZODONE 2-0 Yes [id number] TAKE 1 [facility] 50 mg 8-08 TABLET BY ity of tablet 00:00: MOUTH EVERYDAY Medical AT BEDTIME Branch TRAZODONE 2-0 Yes [id number] TAKE 1 [facility] 50 mg 8-08 TABLET BY ity of tablet 00:00: MOUTH EVERYDAY Medical AT BEDTIME Branch TRAZODONE 2-0 Yes [id number] TAKE 1 [facility] 50 mg 8-08 TABLET BY ity of tablet 00:00: MOUTH EVERYDAY Medical AT BEDTIME Branch TRAZODONE 2-0 Yes [id number] TAKE 1 [facility] 50 mg 8-08 TABLET BY ity of tablet 00:00: MOUTH EVERYDAY Medical AT BEDTIME Branch TRAZODONE 2-0 Yes [id number] TAKE 1 [facility] 50 mg 8-08 TABLET BY ity of tablet 00:00: MOUTH 00 EVERYDAY Medical AT BEDTIME Branch TRAZODONE 2022-0 Yes [id number] TAKE 1 [facility] 50 mg 8-08 TABLET BY it[facility] of tablet 00:00: MOUTH 00 EVERYDAY Medical AT BEDTIME Branch TRAZODONE 2-0 Yes [id number] TAKE 1 [facility] 50 mg 8-08 TABLET BY ity of tablet 00:00: MOUTH 00 EVERYDAY Medical AT BEDTIME Branch TRAZODONE 2-0 Yes [id number] TAKE 1 [facility] 50 mg 8-08 TABLET BY ity of tablet 00:00: MOUTH EVERYDAY Medical AT BEDTIME Branch TRAZODONE 2-0 Yes [id number] TAKE 1 [facility] 50 mg 8-08 TABLET BY ity of tablet 00:00: MOUTH EVERYDAY Medical AT BEDTIME Branch TRAZODONE 2021-0 Yes [id number] TAKE 1 [facility] 50 mg 8-08 TABLET BY ity of tablet 00:00: MOUTH EVERYDAY Medical AT BEDTIME Branch TRAZODONE 2021-0 Yes [id number] TAKE 1 [facility] 50 mg 8-08 TABLET BY ity of tablet 00:00: MOUTH EVERYDAY Medical AT BEDTIME Branch TRAZODONE 2021-0 Yes [id number] TAKE 1 [facility] 50 mg 8-08 TABLET BY it[facility] of tablet 00:00: MOUTH EVERYDAY Medical AT BEDTIME Branch TRAZODONE 2021-0 Yes [id number] TAKE 1 [facility] 50 mg 8-08 TABLET BY ity of tablet 00:00: MOUTH EVERYDAY Medical AT BEDTIME Branch TRAZODONE 2021-0 Yes [id number] TAKE 1 [facility] 50 mg 8-08 TABLET BY ity of tablet 00:00: MOUTH EVERYDAY Medical AT BEDTIME Branch TRAZODONE 2021-0 Yes [id number] TAKE 1 [facility] 50 mg 8-08 TABLET BY ity of tablet 00:00: MOUTH EVERYDAY Medical AT BEDTIME Branch TRAZODONE 2021-0 Yes [id number] TAKE 1 [facility] 50 mg 8-08 TABLET BY ity of tablet 00:00: MOUTH EVERYDAY Medical AT BEDTIME Branch TRAZODONE 2-0 Yes [id number] TAKE 1 [facility] 50 mg 8-08 TABLET BY ity of tablet 00:00: MOUTH EVERYDAY Medical AT BEDTIME Branch TRAZODONE 2-0 Yes [id number] TAKE 1 [facility] 50 mg 8-08 TABLET BY ity of tablet 00:00: MOUTH EVERYDAY Medical AT BEDTIME Branch TRAZODONE 2-0 Yes [id number] TAKE 1 [facility] 50 mg 8-08 TABLET BY ity of tablet 00:00: MOUTH EVERYDAY Medical AT BEDTIME Branch TRAZODONE 2021-0 Yes [id number] TAKE 1 [facility] 50 mg 8-08 TABLET BY ity of tablet 00:00: MOUTH 00 EVERYDAY Medical AT BEDTIME Branch TRAZODONE 2022-0 Yes [id number] TAKE 1 [facility] 50 mg 8-08 TABLET BY it[facility] of tablet 00:00: MOUTH EVERYDAY Medical AT BEDTIME Branch TRAZODONE 2-0 Yes [id number] TAKE 1 [facility] 50 mg 8-08 TABLET BY ity of tablet 00:00: MOUTH EVERYDAY Medical AT BEDTIME Branch TRAZODONE 2-0 Yes [id number] TAKE 1 [facility] 50 mg 8-08 TABLET BY ity of tablet 00:00: MOUTH EVERYDAY Medical AT BEDTIME Branch TRAZODONE 2-0 Yes [id number] TAKE 1 [facility] 50 mg 8-08 TABLET BY ity of tablet 00:00: MOUTH EVERYDAY Medical AT BEDTIME Branch TRAZODONE 2-0 Yes [id number] TAKE 1 [facility] 50 mg 8-08 TABLET BY ity of tablet 00:00: MOUTH EVERYDAY Medical AT BEDTIME Branch TRAZODONE 2-0 Yes [id number] TAKE 1 [facility] 50 mg 8-08 TABLET BY ity of tablet 00:00: MOUTH EVERYDAY Medical AT BEDTIME Branch TRAZODONE 2-0 Yes [id number] TAKE 1 [facility] 50 mg 8-08 TABLET BY ity of tablet 00:00: MOUTH EVERYDAY Medical AT BEDTIME Branch TRAZODONE 2-0 Yes [id number] TAKE 1 [facility] 50 mg 8-08 TABLET BY ity of tablet 00:00: MOUTH EVERYDAY Medical AT BEDTIME Branch TRAZODONE 2-0 Yes [id number] TAKE 1 [facility] 50 mg 8-08 TABLET BY ity of tablet 00:00: MOUTH EVERYDAY Medical AT BEDTIME Branch TRAZODONE 2-0 Yes [id number] TAKE 1 [facility] 50 mg 8-08 TABLET BY ity of tablet 00:00: MOUTH 00 EVERYDAY Medical AT BEDTIME Branch TRAZODONE 2022-0 Yes [id number] TAKE 1 [facility] 50 mg 8-08 TABLET BY ity of tablet 00:00: MOUTH 00 EVERYDAY Medical AT BEDTIME Branch TRAZODONE 2-0 Yes [id number] TAKE 1 [facility] 50 mg 8-08 TABLET BY ity of tablet 00:00: MOUTH 00 EVERYDAY Medical AT BEDTIME Branch TRAZODONE 2022-0 Yes [id number] TAKE 1 [facility] 50 mg 8-08 TABLET BY ity of tablet 00:00: MOUTH [place] EVERYDAY Medical AT [facility] Branch clonazePAM 2022-0 Yes [id number] 1mg Take 1 [facility] 1 mg tablet 7-13 tablet by ity of 00:00: mouth in [place] [address] the Medical morning [place] and 1 tablet at noon and 1 tablet in the evening. clonazePAM 2022-0 Yes [id number] 1mg Take 1 [facility] 1 mg tablet 7-13 tablet by ity of 00:00: mouth in [place] [address] the Medical morning [place] and 1 tablet at noon and 1 tablet in the evening. clonazePAM 2022-0 Yes [id number] 1mg Take 1 [facility] 1 mg tablet 7-13 tablet by ity of 00:00: mouth in [place] [address] the Medical morning [place] and 1 tablet at noon and 1 tablet in the evening. clonazePAM 2022-0 Yes [id number] 1mg Take 1 [facility] 1 mg tablet 7-13 tablet by ity of 00:00: mouth in [address] morning [place] and 1 tablet at noon and 1 tablet in the evening. clonazePAM 2022-0 Yes [id number] 1mg Take 1 [facility] 1 mg tablet 7-13 tablet by ity of 00:00: mouth in [place] [address] the [facility] morning [place] and 1 tablet at noon and 1 tablet in the evening. clonazePAM 2022-0 Yes [id number] 1mg Take 1 [facility] 1 mg tablet 7-13 tablet by ity of 00:00: mouth in [address] morning [place] and 1 tablet at noon and 1 tablet in the evening. clonazePAM 2022-0 Yes [id number] 1mg Take 1 [facility] 1 mg tablet 7-13 tablet by ity of 00:00: mouth in [address] Medical morning [place] and 1 tablet at noon and 1 tablet in the evening. clonazePAM 2022-0 Yes [id number] 1mg Take 1 [facility] 1 mg tablet 7-13 tablet by ity of 00:00: mouth in [address] morning [place] and 1 tablet at noon and 1 tablet in the evening. clonazePAM 2022-0 Yes [id number] 1mg Take 1 [facility] 1 mg tablet 7-13 tablet by ity of 00:00: mouth in [address] morning Branch and 1 tablet at noon and 1 tablet in the evening. clonazePAM 2022-0 Yes [id number] 1mg Take 1 [facility] 1 mg tablet 7-13 tablet by ity of 00:00: mouth in [place] 00 the Medical morning Branch and 1 tablet at noon and 1 tablet in the evening. clonazePAM 2022-0 Yes [id number] 1mg Take 1 [facility] 1 mg tablet 7-13 tablet by ity of 00:00: mouth in [place] 00 the Medical morning Branch and 1 tablet at noon and 1 tablet in the evening. clonazePAM 2022-0 Yes [id number] 1mg Take 1 [facility] 1 mg tablet 7-13 tablet by ity of 00:00: mouth in [place] 00 the Medical morning Branch and 1 tablet at noon and 1 tablet in the evening. clonazePAM 2022-0 Yes [id number] 1mg Take 1 [facility] 1 mg tablet 7-13 tablet by ity of 00:00: mouth in [place] [address] the Medical morning Branch and 1 tablet at noon and 1 tablet in the evening. clonazePAM 2022-0 Yes [id number] 1mg Take 1 [facility] 1 mg tablet 7-13 tablet by ity of 00:00: mouth in [place] [address] the Medical morning Branch and 1 tablet at noon and 1 tablet in the evening. clonazePAM 2022-0 Yes [id number] 1mg Take 1 [facility] 1 mg tablet 7-13 tablet by ity of 00:00: mouth in [place] [address] the Medical morning Branch and 1 tablet at noon and 1 tablet in the evening. clonazePAM 2022-0 Yes [id number] 1mg Take 1 [facility] 1 mg tablet 7-13 tablet by ity of 00:00: mouth in [place] [address] the Medical morning Branch and 1 tablet at noon and 1 tablet in the evening. clonazePAM 2022-0 Yes [id number] 1mg Take 1 [facility] 1 mg tablet 7-13 tablet by ity of 00:00: mouth in [place] [address] the Medical morning Branch and 1 tablet at noon and 1 tablet in the evening. clonazePAM 2022-0 Yes [id number] 1mg Take 1 [facility] 1 mg tablet 7-13 tablet by ity of 00:00: mouth in [place] [address] the Medical morning Branch and 1 tablet at noon and 1 tablet in the evening. clonazePAM 2022-0 2022- No [id number] 1mg Take 1 [facility] 1 mg tablet 7-13 11-01 tablet by it y of 00:00: 00:00 mouth in [place] 00 :00 the Medical morning Branch and 1 tablet at noon and 1 tablet in the evening. clonazePAM 0 2021- No [id number] 1mg Take 1 [facility] 1 mg tablet 10-08 tablet by it y of 00:00: 00:00 mouth in [place] 00 :00 the Medical morning Branch and 1 tablet at noon and 1 tablet in the evening. ZONISAMIDE 2021-0 Yes [id number] TAKE 1 [facility] 100 mg 7-12 CAPSULE BY ity of capsule 00:00: MOUTH [place] 00 TWICE A Medical DAY Branch ZONISAMIDE 2021-0 Yes [id number] TAKE 1 [facility] 100 mg 7-12 CAPSULE BY ity of capsule 00:00: MOUTH TWICE A Medical DAY Branch ZONISAMIDE 2021-0 Yes [id number] TAKE 1 [facility] 100 mg 7-12 CAPSULE BY ity of capsule 00:00: MOUTH TWICE A Medical DAY Branch ZONISAMIDE 2021-0 Yes [id number] TAKE 1 [facility] 100 mg 7-12 CAPSULE BY ity of capsule 00:00: MOUTH 00 TWICE A Medical DAY Branch ZONISAMIDE 2021-0 Yes [id number] TAKE 1 [facility] 100 mg 7-12 CAPSULE BY ity of capsule 00:00: MOUTH 00 TWICE A Medical DAY Branch ZONISAMIDE 2021-0 Yes [id number] TAKE 1 [facility] 100 mg 7-12 CAPSULE BY ity of capsule 00:00: MOUTH TWICE A Medical DAY Branch ZONISAMIDE 2021-0 Yes [id number] TAKE 1 [facility] 100 mg 7-12 CAPSULE BY ity of capsule 00:00: MOUTH [place] 00 TWICE A Medical DAY Branch ZONISAMIDE 2021-0 Yes [id number] TAKE 1 [facility] 100 mg 7-12 CAPSULE BY ity of capsule 00:00: MOUTH [place] 00 TWICE A Medical DAY Branch ZONISAMIDE 2021-0 Yes [id number] TAKE 1 [facility] 100 mg 7-12 CAPSULE BY ity of capsule 00:00: MOUTH 00 TWICE A Medical DAY Branch ZONISAMIDE 2021-0 Yes [id number] TAKE 1 [facility] 100 mg 7-12 CAPSULE BY ity of capsule 00:00: MOUTH [place] 00 TWICE A Medical DAY Branch ZONISAMIDE 2021-0 Yes [id number] TAKE 1 [facility] 100 mg 7-12 CAPSULE BY ity of capsule 00:00: MOUTH TWICE A Medical DAY Branch ZONISAMIDE 2021-0 Yes [id number] TAKE 1 [facility] 100 mg 7-12 CAPSULE BY ity of capsule 00:00: MOUTH TWICE A Medical DAY Branch ZONISAMIDE 2021-0 Yes [id number] TAKE 1 [facility] 100 mg 7-12 CAPSULE BY ity of capsule 00:00: MOUTH TWICE A Medical DAY Branch ZONISAMIDE 2021-0 Yes [id number] TAKE 1 [facility] 100 mg 7-12 CAPSULE BY ity of capsule 00:00: MOUTH TWICE A Medical DAY Branch ZONISAMIDE 2021-0 Yes [id number] TAKE 1 [facility] 100 mg 7-12 CAPSULE BY ity of capsule 00:00: MOUTH TWICE A Medical DAY Branch ZONISAMIDE 2021-0 Yes [id number] TAKE 1 [facility] 100 mg 7-12 CAPSULE BY ity of capsule 00:00: MOUTH TWICE A Medical DAY Branch ZONISAMIDE 2021-0 Yes [id number] TAKE 1 [facility] 100 mg 7-12 CAPSULE BY ity of capsule 00:00: MOUTH TWICE A Medical DAY Branch ZONISAMIDE 2021-0 Yes [id number] TAKE 1 [facility] 100 mg 7-12 CAPSULE BY ity of capsule 00:00: MOUTH TWICE A Medical DAY Branch ZONISAMIDE 2021-0 Yes [id number] TAKE 1 [facility] 100 mg 7-12 CAPSULE BY ity of capsule 00:00: MOUTH TWICE A Medical DAY Branch ZONISAMIDE 2021-0 Yes [id number] TAKE 1 [facility] 100 mg 7-12 CAPSULE BY ity of capsule 00:00: MOUTH TWICE A Medical DAY Branch ZONISAMIDE 2021-0 Yes [id number] TAKE 1 [facility] 100 mg 7-12 CAPSULE BY ity of capsule 00:00: MOUTH TWICE A Medical DAY Branch ZONISAMIDE 2021-0 Yes [id number] TAKE 1 [facility] 100 mg 7-12 CAPSULE BY ity of capsule 00:00: MOUTH TWICE A Medical DAY Branch ZONISAMIDE 2021-0 Yes [id number] TAKE 1 [facility] 100 mg 7-12 CAPSULE BY ity of capsule 00:00: MOUTH [place] 00 TWICE A Medical DAY Branch ZONISAMIDE 2021-0 Yes [id number] TAKE 1 [facility] 100 mg 7-12 CAPSULE BY ity of capsule 00:00: MOUTH [place] 00 TWICE A Medical DAY Branch ZONISAMIDE 2021-0 Yes [id number] TAKE 1 [facility] 100 mg 7-12 CAPSULE BY ity of capsule 00:00: MOUTH [place] 00 TWICE A Medical DAY Branch ZONISAMIDE 2021-0 Yes [id number] TAKE 1 [facility] 100 mg 7-12 CAPSULE BY ity of capsule 00:00: MOUTH [place] 00 TWICE A Medical DAY Branch ZONISAMIDE 2021-0 Yes [id number] TAKE 1 [facility] 100 mg 7-12 CAPSULE BY ity of capsule 00:00: MOUTH [place] 00 TWICE A Medical DAY Branch ZONISAMIDE 2021-0 Yes [id number] TAKE 1 [facility] 100 mg 7-12 CAPSULE BY ity of capsule 00:00: MOUTH [place] 00 TWICE A Medical DAY Branch ZONISAMIDE 2021-0 Yes [id number] TAKE 1 [facility] 100 mg 7-12 CAPSULE BY ity of capsule 00:00: MOUTH [place] 00 TWICE A Medical DAY Branch ZONISAMIDE 2021-0 Yes [id number] TAKE 1 [facility] 100 mg 7-12 CAPSULE BY ity of capsule 00:00: MOUTH [place] 00 TWICE A Medical DAY Branch ZONISAMIDE 2021-0 Yes [id number] TAKE 1 [facility] 100 mg 7-12 CAPSULE BY ity of capsule 00:00: MOUTH [place] 00 TWICE A Medical DAY Branch ZONISAMIDE 2021-0 2- No [id number] TAKE 1 [facility] 100 mg 7-12 12-27 CAPSULE BY ity of capsule 00:00: 00:00 MOUTH [place] 00 :00 TWICE A Medical DAY Branch SYNTHROID 2021-0 Yes [id number] TAKE 1 U nivers 150 mcg 7-08 TABLET BY ity of tablet 00:00: MOUTH [place] 00 EVERY DAY Medical IN THE Branch MORNING SYNTHROID 2021-0 Yes [id number] TAKE 1 U nivers 150 mcg 7-08 TABLET BY ity of tablet 00:00: MOUTH [place] 00 EVERY DAY Medical IN THE Branch MORNING SYNTHROID 2021-0 Yes [id number] TAKE 1 U nivers 150 mcg 7-08 TABLET BY ity of tablet 00:00: MOUTH [place] 00 EVERY DAY Medical IN THE Branch MORNING SYNTHROID 2021-0 Yes [id number] TAKE 1 U nivers 150 mcg 7-08 TABLET BY ity of tablet 00:00: MOUTH [place] 00 EVERY DAY Medical IN THE [facility] SYNTHROID Yes [id number] TAKE 1 U nivers 150 mcg 7-08 TABLET BY ity of tablet 00:00: MOUTH [place] 00 EVERY DAY Medical IN THE [facility] SYNTHROID Yes [id number] TAKE 1 U nivers 150 mcg 7-08 TABLET BY ity of tablet 00:00: MOUTH [place] 00 EVERY DAY Medical IN THE [facility] SYNTHROID Yes [id number] TAKE 1 U nivers 150 mcg 7-08 TABLET BY ity of tablet 00:00: MOUTH [place] 00 EVERY DAY Medical IN THE [facility] SYNTHROID Yes [id number] TAKE 1 U nivers 150 mcg 7-08 TABLET BY ity of tablet 00:00: MOUTH [place] 00 EVERY DAY Medical IN THE [facility] SYNTHROID Yes [id number] TAKE 1 U nivers 150 mcg 7-08 TABLET BY ity of tablet 00:00: MOUTH [place] 00 EVERY DAY Medical IN THE [facility] SYNTHROID Yes [id number] TAKE 1 U nivers 150 mcg 7-08 TABLET BY ity of tablet 00:00: MOUTH [place] 00 EVERY DAY Medical IN THE [facility] SYNTHROID Yes [id number] TAKE 1 U nivers 150 mcg 7-08 TABLET BY ity of tablet 00:00: MOUTH [place] 00 EVERY DAY Medical IN THE [facility] SYNTHROID Yes [id number] TAKE 1 U nivers 150 mcg 7-08 TABLET BY ity of tablet 00:00: MOUTH [place] 00 EVERY DAY Medical IN THE [facility] SYNTHROID Yes [id number] TAKE 1 U nivers 150 mcg 7-08 TABLET BY ity of tablet 00:00: MOUTH [place] 00 EVERY DAY Medical IN THE [facility] SYNTHROID Yes [id number] TAKE 1 U nivers 150 mcg 7-08 TABLET BY ity of tablet 00:00: MOUTH [place] 00 EVERY DAY Medical IN THE [facility] SYNTHROID 0 Yes [id number] TAKE 1 U nivers 150 mcg 7-08 TABLET BY ity of tablet 00:00: MOUTH [place] 00 EVERY DAY Medical IN THE [facility] SYNTHROID Yes [id number] TAKE 1 U nivers 150 mcg 7-08 TABLET BY ity of tablet 00:00: MOUTH [place] 00 EVERY DAY Medical IN THE [facility] SYNTHROID Yes [id number] TAKE 1 U nivers 150 mcg 7-08 TABLET BY ity of tablet 00:00: MOUTH [place] 00 EVERY DAY Medical IN THE [facility] SYNTHROID 0 Yes [id number] TAKE 1 U nivers 150 mcg 7-08 TABLET BY ity of tablet 00:00: MOUTH [place] 00 EVERY DAY Medical IN THE [facility] SYNTHROID Yes [id number] TAKE 1 U nivers 150 mcg 7-08 TABLET BY ity of tablet 00:00: MOUTH [place] 00 EVERY DAY Medical IN THE [facility] SYNTHROID Yes [id number] TAKE 1 U nivers 150 mcg 7-08 TABLET BY ity of tablet 00:00: MOUTH [place] 00 EVERY DAY Medical IN THE [facility] SYNTHROID Yes [id number] TAKE 1 U nivers 150 mcg 7-08 TABLET BY ity of tablet 00:00: MOUTH [place] 00 EVERY DAY Medical IN THE [facility] SYNTHROID Yes [id number] TAKE 1 U nivers 150 mcg 7-08 TABLET BY ity of tablet 00:00: MOUTH [place] 00 EVERY DAY Medical IN THE [facility] SYNTHROID Yes [id number] TAKE 1 U nivers 150 mcg 7-08 TABLET BY ity of tablet 00:00: MOUTH [place] 00 EVERY DAY Medical IN THE [facility] SYNTHROID Yes [id number] TAKE 1 U nivers 150 mcg 7-08 TABLET BY ity of tablet 00:00: MOUTH [place] 00 EVERY DAY Medical IN THE [facility] SYNTHROID 0 Yes [id number] TAKE 1 U nivers 150 mcg 7-08 TABLET BY ity of tablet 00:00: MOUTH [place] 00 EVERY DAY Medical IN THE [facility] SYNTHROID 0 Yes [id number] TAKE 1 U nivers 150 mcg 7-08 TABLET BY ity of tablet 00:00: MOUTH [place] 00 EVERY DAY Medical IN THE [facility] SYNTHROID 0 Yes [id number] TAKE 1 U nivers 150 mcg 7-08 TABLET BY ity of tablet 00:00: MOUTH [place] 00 EVERY DAY Medical IN THE [facility] SYNTHROID 0 Yes [id number] TAKE 1 U nivers 150 mcg 7-08 TABLET BY ity of tablet 00:00: MOUTH [place] 00 EVERY DAY Medical IN [facility] MORNING SYNTHROID 0 Yes [id number] TAKE 1 U nivers 150 mcg 7-08 TABLET BY ity of tablet 00:00: MOUTH [place] 00 EVERY DAY Medical IN [facility] MORNING SYNTHROID 0 Yes [id number] TAKE 1 U nivers 150 mcg 7-08 TABLET BY ity of tablet 00:00: MOUTH 00 EVERY DAY Medical IN THE [place] MORNING SYNTHROID 0 Yes [id number] TAKE 1 U nivers 150 mcg 7-08 TABLET BY ity of tablet 00:00: MOUTH [place] 00 EVERY DAY Medical IN THE [place] MORNING SYNTHROID 0 Yes [id number] TAKE 1 U nivers 150 mcg 7-08 TABLET BY ity of tablet 00:00: MOUTH 00 EVERY DAY Medical IN [facility] SYNTHROID 0 3- No [id number] TAKE 1 Univers 150 mcg 7-08 - TABLET BY ity of tablet 00:00: 00:00 MOUTH [place] 00 :00 EVERY DAY Medical IN [facility] MORNING SERTRALINE 0 Yes [id number] TAKE 1 [facility] 100 mg 6-17 TABLET BY ity of tablet 00:00: MOUTH [place] 00 EVERY DAY [facility] SERTRALINE 2021-0 Yes [id number] TAKE 1 [facility] 100 mg 6-17 TABLET BY ity of tablet 00:00: MOUTH [place] 00 EVERY DAY [facility] SERTRALINE 2021-0 Yes [id number] TAKE 1 [facility] 100 mg 6-17 TABLET BY ity of tablet 00:00: MOUTH 00 EVERY DAY [facility] SERTRALINE 2021-0 Yes [id number] TAKE 1 [facility] 100 mg 6-17 TABLET BY ity of tablet 00:00: MOUTH [place] 00 EVERY DAY [facility] SERTRALINE 2021-0 Yes [id number] TAKE 1 [facility] 100 mg 6-17 TABLET BY ity of tablet 00:00: MOUTH [place] 00 EVERY DAY [facility] SERTRALINE 2021-0 Yes [id number] TAKE 1 [facility] 100 mg 6-17 TABLET BY ity of tablet 00:00: MOUTH [place] 00 EVERY DAY [facility] SERTRALINE 2021-0 Yes [id number] TAKE 1 [facility] 100 mg 6-17 TABLET BY ity of tablet 00:00: MOUTH [place] 00 EVERY DAY [facility] SERTRALINE 2021-0 Yes [id number] TAKE 1 [facility] 100 mg 6-17 TABLET BY ity of tablet 00:00: MOUTH [place] 00 EVERY DAY Medical Branch SERTRALINE 2-0 Yes [id number] TAKE 1 [facility] 100 mg 6-17 TABLET BY ity of tablet 00:00: MOUTH 00 EVERY DAY Medical Branch SERTRALINE 2-0 Yes [id number] TAKE 1 [facility] 100 mg 6-17 TABLET BY ity of tablet 00:00: MOUTH EVERY DAY Medical Branch SERTRALINE 2021-0 Yes [id number] TAKE 1 [facility] 100 mg 6-17 TABLET BY ity of tablet 00:00: MOUTH 00 EVERY DAY Medical Branch SERTRALINE 2021-0 Yes [id number] TAKE 1 [facility] 100 mg 6-17 TABLET BY ity of tablet 00:00: MOUTH EVERY DAY Medical Branch SERTRALINE 2021-0 Yes [id number] TAKE 1 [facility] 100 mg 6-17 TABLET BY ity of tablet 00:00: MOUTH EVERY DAY Medical Branch SERTRALINE 2021-0 Yes [id number] TAKE 1 [facility] 100 mg 6-17 TABLET BY ity of tablet 00:00: MOUTH EVERY DAY Medical Branch SERTRALINE 2021-0 Yes [id number] TAKE 1 [facility] 100 mg 6-17 TABLET BY ity of tablet 00:00: MOUTH 00 EVERY DAY Medical Branch SERTRALINE 2-0 Yes [id number] TAKE 1 [facility] 100 mg 6-17 TABLET BY ity of tablet 00:00: MOUTH 00 EVERY DAY Medical Branch SERTRALINE 2-0 Yes [id number] TAKE 1 [facility] 100 mg 6-17 TABLET BY ity of tablet 00:00: MOUTH EVERY DAY Medical Branch SERTRALINE 2-0 Yes [id number] TAKE 1 [facility] 100 mg 6-17 TABLET BY ity of tablet 00:00: MOUTH 00 EVERY DAY Medical Branch SERTRALINE 2-0 Yes [id number] TAKE 1 [facility] 100 mg 6-17 TABLET BY ity of tablet 00:00: MOUTH 00 EVERY DAY Medical Branch SERTRALINE 2-0 Yes [id number] TAKE 1 [facility] 100 mg 6-17 TABLET BY ity of tablet 00:00: MOUTH 00 EVERY DAY Medical Branch SERTRALINE 2-0 Yes [id number] TAKE 1 [facility] 100 mg 6-17 TABLET BY ity of tablet 00:00: MOUTH 00 EVERY DAY Medical Branch SERTRALINE 0 Yes [id number] TAKE 1 [facility] 100 mg 6-17 TABLET BY ity of tablet 00:00: MOUTH [place] 00 EVERY DAY Medical Branch SERTRALINE 0 2021- No [id number] TAKE 1 [facility] 100 mg 6-17 12-13 TABLET BY ity of tablet 00:00: 00:00 MOUTH [place] 00 :00 EVERY DAY Medical Branch acetaminoph Yes Take by [facility] en (TYLENOL 2-10 mouth. ity of ORAL) 15:18: [place] [address] Medical Branch acetaminoph Yes Take by [facility] (TYLENOL 2-10 mouth. ity of ORAL) 15:18: [address] acetaminoph Yes Take by [facility] vers en (TYLENOL 2-10 mouth. ity of ORAL) 15:18: [address] acetaminoph Yes Take by [facility] (TYLENOL 2-10 mouth. ity of ORAL) 15:18: [address] acetaminoph Yes Take by [facility] (TYLENOL 2-10 mouth. ity of ORAL) 15:18: [address] acetaminoph Yes Take by [facility] (TYLENOL 2-10 mouth. ity of ORAL) 15:18: [address] acetaminoph Yes Take by [facility] (TYLENOL 2-10 mouth. ity of ORAL) 15:18: [address] acetaminoph Yes Take by [facility] (TYLENOL 2-10 mouth. ity of ORAL) 15:18: [address] acetaminoph Yes Take by [facility] (TYLENOL 2-10 mouth. ity of ORAL) 15:18: [address] acetaminoph Yes Take by [facility] en (TYLENOL 2-10 mouth. ity of ORAL) 15:18: [address] acetaminoph Yes Take by Uni vers en (TYLENOL 2-10 mouth. ity of ORAL) 15:18: [address] acetaminoph Yes Take by [facility] (TYLENOL 2-10 mouth. ity of ORAL) 15:18: [address] acetaminoph 2022-0 Yes Take by [facility] (TYLENOL 2-10 mouth. ity of ORAL) 15:18: [address] acetaminoph 0 Yes Take by [facility] vers [facility] (TYLENOL 2-10 mouth. ity of ORAL) 15:18: [address] acetaminoph 0 Yes Take by [facility] vers [facility] (TYLENOL 2-10 mouth. ity of ORAL) 15:18: [address] acetaminoph Yes Take by [facility] (TYLENOL 2-10 mouth. ity of ORAL) 15:18: [address] acetaminoph Yes Take by [facility] (TYLENOL 2-10 mouth. ity of ORAL) 15:18: [address] acetaminoph Yes Take by [facility] (TYLENOL 2-10 mouth. ity of ORAL) 15:18: [address] acetaminoph Yes Take by [facility] vers [facility] (TYLENOL 2-10 mouth. ity of ORAL) 15:18: [address] acetaminoph Yes Take by [facility] vers [facility] (TYLENOL 2-10 mouth. ity of ORAL) 15:18: [address] acetaminoph Yes Take by [facility] vers [facility] (TYLENOL 2-10 mouth. ity of ORAL) 15:18: [address] acetaminoph Yes Take by [facility] vers en (TYLENOL 2-10 mouth. ity of ORAL) 15:18: [address] acetaminoph Yes Take by [facility] vers en (TYLENOL 2-10 mouth. ity of ORAL) 15:18: [address] acetaminoph Yes Take by [facility] vers en (TYLENOL 2-10 mouth. ity of ORAL) 15:18: [address] acetaminoph Yes Take by [facility] vers [facility] (TYLENOL 2-10 mouth. ity of ORAL) 15:18: [address] acetaminoph 0 Yes Take by [facility] (TYLENOL 2-10 mouth. ity of ORAL) 15:18: [address] acetaminoph Yes Take by [facility] (TYLENOL 2-10 mouth. ity of ORAL) 15:18: [address] acetaminoph 0 Yes Take by [facility] vers [facility] (TYLENOL 2-10 mouth. ity of ORAL) 15:18: [address] acetaminoph Yes Take by [facility] (TYLENOL 2-10 mouth. ity of ORAL) 15:18: [address] acetaminoph Yes Take by [facility] vers [facility] (TYLENOL 2-10 mouth. ity of ORAL) 15:18: [address] Branch acetaminoph Yes Take by [facility] vers en (TYLENOL 2-10 mouth. ity of ORAL) 15:18: [address] Branch acetaminoph Yes Take by [facility] vers [facility] (TYLENOL 2-10 mouth. ity of ORAL) 15:18: [address] acetaminoph Yes Take by [facility] (TYLENOL 2-10 mouth. ity of ORAL) 15:18: [address] acetaminoph Yes Take by [facility] (TYLENOL 2-10 mouth. ity of ORAL) 15:18: [address] acetaminoph Yes Take by [facility] vers [facility] (TYLENOL 2-10 mouth. ity of ORAL) 15:18: [address] acetaminoph Yes Take by [facility] vers [facility] (TYLENOL 2-10 mouth. ity of ORAL) 15:18: [address] acetaminoph Yes Take by [facility] vers [facility] (TYLENOL 2-10 mouth. ity of ORAL) 15:18: [address] acetaminoph Yes Take by [facility] vers en (TYLENOL 2-10 mouth. ity of ORAL) 15:18: [address] acetaminoph Yes Take by [facility] vers en (TYLENOL 2-10 mouth. ity of ORAL) 15:18: [address] acetaminoph Yes Take by [facility] vers en (TYLENOL 2-10 mouth. ity of ORAL) 15:18: [address] acetaminoph Yes Take by [facility] vers en (TYLENOL 2-10 mouth. ity of ORAL) 15:18: [address] acetaminoph Yes Take by [facility] vers en (TYLENOL 2-10 mouth. ity of ORAL) 15:18: [address] Branch acetaminoph 0 Yes Take by [facility] vers [facility] (TYLENOL 2-10 mouth. ity of ORAL) 15:18: [address] acetaminoph 0 Yes Take by [facility] vers en (TYLENOL 2-10 mouth. ity of ORAL) 15:18: [address] acetaminoph 0 Yes Take by [facility] vers [facility] (TYLENOL 2-10 mouth. ity of ORAL) 15:18: [address] Branch acetaminoph 0 Yes Take by [facility] vers en (TYLENOL 2-10 mouth. ity of ORAL) 15:18: [address] acetaminoph 0 Yes Take by [facility] vers en (TYLENOL 2-10 mouth. ity of ORAL) 15:18: [address] acetaminoph Yes Take by [facility] vers en (TYLENOL 2-10 mouth. ity of ORAL) 15:18: [address] acetaminoph Yes Take by [facility] vers [facility] (TYLENOL 2-10 mouth. ity of ORAL) 15:18: [address] acetaminoph Yes Take by [facility] vers en (TYLENOL 2-10 mouth. ity of ORAL) 15:18: [address] acetaminoph Yes Take by [facility] vers en (TYLENOL 2-10 mouth. ity of ORAL) 15:18: [address] acetaminoph Yes Take by [facility] vers en (TYLENOL 2-10 mouth. ity of ORAL) 15:18: [address] acetaminoph Yes Take by [facility] vers [facility] (TYLENOL 2-10 mouth. ity of ORAL) 15:18: [address] acetaminoph Yes Take by [facility] vers en (TYLENOL 2-10 mouth. ity of ORAL) 15:18: [address] acetaminoph 0 Yes Take by [facility] vers en (TYLENOL 2-10 mouth. ity of ORAL) 15:18: [address] acetaminoph Yes Take by [facility] vers en (TYLENOL 2-10 mouth. ity of ORAL) 15:18: [address] acetaminoph 2022-0 Yes Take by [facility] vers [facility] (TYLENOL 2-10 mouth. ity of ORAL) 15:18: [address] Branch acetaminoph 0 Yes Take by [facility] vers en (TYLENOL 2-10 mouth. ity of ORAL) 15:18: [address] acetaminoph 0 Yes Take by [facility] vers en (TYLENOL 2-10 mouth. ity of ORAL) 15:18: [address] Branch acetaminoph 0 Yes Take by [facility] vers [facility] (TYLENOL 2-10 mouth. ity of ORAL) 15:18: [address] Branch acetaminoph 0 Yes Take by [facility] vers en (TYLENOL 2-10 mouth. ity of ORAL) 15:18: [address] acetaminoph 0 Yes Take by [facility] vers en (TYLENOL 2-10 mouth. ity of ORAL) 15:18: [address] acetaminoph Yes Take by [facility] vers en (TYLENOL 2-10 mouth. ity of ORAL) 15:18: [address] acetaminoph Yes Take by [facility] vers en (TYLENOL 2-10 mouth. ity of ORAL) 15:18: [address] acetaminoph Yes Take by [facility] vers en (TYLENOL 2-10 mouth. ity of ORAL) 15:18: [address] acetaminoph Yes Take by [facility] (TYLENOL 2-10 mouth. ity of ORAL) 15:18: [address] acetaminoph Yes Take by [facility] vers [facility] (TYLENOL 2-10 mouth. ity of ORAL) 15:18: [address] acetaminoph Yes Take by [facility] vers en (TYLENOL 2-10 mouth. ity of ORAL) 15:18: [address] acetaminoph Yes Take by [facility] vers en (TYLENOL 2-10 mouth. ity of ORAL) 15:18: [address] acetaminoph 0 Yes Take by [facility] vers en (TYLENOL 2-10 mouth. ity of ORAL) 15:18: [address] acetaminoph Yes Take by [facility] vers en (TYLENOL 2-10 mouth. ity of ORAL) 15:18: [address] acetaminoph 0 Yes Take by [facility] vers en (TYLENOL 2-10 mouth. ity of ORAL) 15:18: [address] Branch acetaminoph 0 Yes Take by [facility] vers en (TYLENOL 2-10 mouth. ity of ORAL) 15:18: [address] acetaminoph 0 Yes Take by [facility] vers en (TYLENOL 2-10 mouth. ity of ORAL) 15:18: [address] acetaminoph 0 Yes Take by [facility] vers en (TYLENOL 2-10 mouth. ity of ORAL) 15:18: [address] Branch acetaminoph 0 Yes Take by [facility] vers en (TYLENOL 2-10 mouth. ity of ORAL) 15:18: [address] acetaminoph 0 Yes Take by [facility] vers en (TYLENOL 2-10 mouth. ity of ORAL) 15:18: [address] Branch acetaminoph Yes Take by [facility] vers en (TYLENOL 2-10 mouth. ity of ORAL) 15:18: [address] acetaminoph Yes Take by [facility] vers en (TYLENOL 2-10 mouth. ity of ORAL) 15:18: [address] acetaminoph Yes Take by [facility] vers en (TYLENOL 2-10 mouth. ity of ORAL) 15:18: [address] acetaminoph Yes Take by [facility] vers en (TYLENOL 2-10 mouth. ity of ORAL) 15:18: [address] acetaminoph Yes Take by [facility] vers en (TYLENOL 2-10 mouth. ity of ORAL) 15:18: [address] acetaminoph 0 Yes Take by [facility] vers en (TYLENOL 2-10 mouth. ity of ORAL) 15:18: [address] acetaminoph 0 Yes Take by [facility] vers en (TYLENOL 2-10 mouth. ity of ORAL) 15:18: [address] acetaminoph 0 Yes Take by [facility] vers en (TYLENOL 2-10 mouth. ity of ORAL) 15:18: [address] acetaminoph 0 Yes Take by [facility] vers en (TYLENOL 2-10 mouth. ity of ORAL) 15:18: [address] acetaminoph Yes Take by [facility] vers en (TYLENOL 2-10 mouth. ity of ORAL) 15:18: [address] acetaminoph Yes Take by [facility] vers en (TYLENOL 2-10 mouth. ity of ORAL) 15:18: [address] acetaminoph Yes Take by [facility] vers en (TYLENOL 2-10 mouth. ity of ORAL) 15:18: [address] proMETHazin 2020-03 Yes Insert 1 Un [...] within 6 hours of taking reglan. proMETHazin 2021-1 Yes Insert 1 Un [place] 25 [...] reglan. proMETHazin 2020-03 Yes Insert 1 Un [place] 25 mg 2-03 suppositor ity of suppository 00:00: y rectally [place] 00 at Medical bedtime, Branch do not use within 6 hours of taking reglan. proMETHazin 2021-1 2023- No Insert 1 U nivers e 25 mg 2-08-04 suppositor ity o f suppository 00:00: 00:00 y rectally [place] 00 :00 at Medical bedtime, Branch do not use within 6 hours of taking reglan. proMETHazin 2020-03- No Insert 1 U nivers e 25 mg 2-09 suppositor ity o f suppository 00:00: 00:00 y rectally [place] 00 :00 at Medical bedtime, Branch do not use within 6 hours of taking reglan. ibuprofen 2019- No [id number] 800mg Take 1 [facility] 800 mg 10-25- tablet by ity of tablet 00:00: 04:59 mouth [place] 00 :00 every 6 Medical (six) Branch hours as needed for Pain (scale 4-6) for up to 21 days. sulfamethox 2019- No [id number] 1{tbl} Take 1 Univers azole-trime 10-23 tablet by it y of thoprim 00:00: 00:00 mouth 2 [place] (BACTRIM 00 :00 (two) Medical DS) 800-160 times Branch mg per daily for tablet 10 days. SERTraline 2020- No [id number] 50mg Take 1 [facility] 50 mg 09-26 tablet by ity of tablet 00:00: 00:00 mouth [place] 00 :00 daily. Medical Branch dextroamphe 2019- No [id number] 20mg Take 1 Univers tamine-amph 6-20 10-30 tablet by it y of etamine 00:00: 00:00 mouth 3 [place] (ADDERALL) 00 :00 (three) Medica l 20 mg times Branch tablet daily. dextroamphe 2019- No [id number] Take 1 tab Univers tamine-amph 5-24 10-30 in morning i ty of etamine 10 00:00: 00:00 x 3 days [place] mg tablet 00 :00 then Medical increase Branch to 1 tab twice daily x 7 days then , if needed take 2 tabs twice daily (otherwise continue 1 tab twice daily), further refills from psychiatry clonazePAM 2019- No [id number] .5mg Take 1 Univers (KLONOPIN) 5-17 08- tablet by ity of 0.5 mg 00:00: 00:00 mouth [place] tablet 00 :00 every 8 Medical (eight) Branch hours as needed (Anxiety). PANTOPRAZOL 2019- No [id number] TAKE 1 Univers E 40 mg EC 07-23- TABLET BY ity of tablet 00:00: 00:00 MOUTH [place] 00 :00 EVERY DAY Medical Branch [id number] 2020- No 1{dose} Take 1 U nivers carb,glu-FA 317 02-04 Dose by ity of -dss-dha 00:00: 00:00 mouth [place] (CITRANATAL 00 :00 daily. Medica l ASSURE) 35 Branch mg iron-1 mg -50 mg-300 mg combo pack diazePAM 5 2019- No Take one Un mayank mg tablet 3 10-30 5mg tablet ity of 00:00: 00:00 30 minutes [place] 00 :00 prior to Medical MRI study, Branch and may repeat one 5mg tablet as needed. levothyroxi 2019- No [id number] 112ug Take 1 Univers ne 3 12-15 tablet by ity of (SYNTHROID) 00:00: 00:00 mouth [place] 112 mcg 00 :00 every Medical tablet morning. Branch atorvastati 2019- No [id number] 40mg Take 1 Univers n 40 mg 1- 10-19 tablet by ity of tablet 00:00: 00:00 mouth at [place] 00 :00 bedtime. Medical Branch traMADol 2019- No [id number] 50mg Take 1 U nivers (ULTRAM) 50 04-24- tablet by it y of mg tablet 00:00: 00:00 mouth [place] 00 :00 every 6 Medical (six) Branch hours as needed for Pain (scale 4-6) or Pain (scale 7-10). zonisamide 2019- No [id number] 100mg Take 1 Univers 100 mg 04-21 08-10 capsule by ity of capsule 00:00: 00:00 mouth 2 [place] 00 :00 (two) Medical times Branch daily. butalbital- 2019- No [id number] 1{tbl} Take 1 Univers acetaminoph 1-10 10-30 tablet by it y of en-caff 00:00: 00:00 mouth [place] 50-325-40 00 :00 every 6 Medical mg tablet (six) Branch hours as needed (Migraine Headaches) . clonazePAM 2020- No [id number] .5mg Take 1 Univers 0.5 mg 1-10 10-30 tablet by ity of tablet 00:00: 00:00 mouth 3 [place] 00 :00 (three) Medical times Branch daily. 2020- No [id number] 1{tbl} Take 1 [facility] vitamin 8-27 08-02 tablet by ity of w/FA tablet 00:00: 00:00 [place] 00 :00 daily. Medical Branch Immunizations Ordered Filled Immunization Date Status Comments [facility] e Immunization Name Name Influenza Virus [...] Universit y of Vaccine [facility], 00:00:00 [place] [facility] Preserv and ABX Branch Free 6 MO-64 YRS Influenza Virus 2022-01-27 Completed Universit y of Vaccine [facility] IM, 00:00:00 [place] [facility] Preserv and ABX Branch Free 6 MO-64 YRS Influenza Virus 2022-01-27 Completed Universit y of Vaccine Quad IM, 00:00:00 [place] [facility] Preserv and ABX Branch Free 6 MO-64 YRS Influenza Virus 2022-01-27 Completed Universit y of Vaccine Quad IM, 00:00:00 [place] [facility] Preserv and ABX Branch Free 6 MO-64 YRS Influenza Virus 2022-01-27 Completed Universit y of Vaccine Quad IM, 00:00:00 [place] [facility] Preserv and ABX Branch Free 6 MO-64 YRS Influenza Virus 2022-01-27 Completed Universit y of Vaccine Quad IM, 00:00:00 [place] [facility] Preserv and ABX Branch Free 6 MO-64 YRS Influenza Virus 2022-01-27 Completed Universit y of Vaccine Quad IM, 00:00:00 [place] [facility] dical Preserv and ABX Branch Free 6 MO-64 YRS Influenza Virus 2022-01-27 Completed Universit y of Vaccine Quad IM, 00:00:00 [place] [facility] Preserv and ABX Branch Free 6 MO-64 YRS Influenza Virus 2022-01-27 Completed Universit y of Vaccine Quad IM, 00:00:00 [place] [facility] Preserv and ABX Branch Free [...] Universit y of Vaccine Quad IM, 00:00:00 [place] [facility] Preserv and ABX Branch Free 6 MO-64 YRS Influenza Virus 2022-01-27 Completed Universit y of Vaccine Quad IM, 00:00:00 [place] [facility] Preserv and ABX Branch Free 6 MO-64 YRS Influenza Virus 2021-02-07 Completed Universit y of Vaccine Quad IM, 00:00:00 [place] [facility] Preserv and ABX Branch Free 6 MO-64 YRS TDAP 2021-02-07 Completed University of 00:00:00 [facility] Influenza Virus 2021-02-07 Completed Universit y of Vaccine Quad IM, 00:00:00 [place] [facility] Preserv and ABX Branch Free 6 MO-64 YRS TDAP 2021-02-07 Completed University of 00:00:00 [facility] Influenza Virus 2021-02-07 Completed Universit y of Vaccine Quad IM, 00:00:00 [place] [facility] Preserv and ABX Branch Free 6 MO-64 YRS TDAP 2021-02-07 Completed University of 00:00:00 [facility] Influenza Virus 2021-02-07 Completed Universit y of Vaccine Quad IM, 00:00:00 [place] [facility] dical Preserv and ABX Branch Free 6 MO-64 YRS TDAP 2021-02-07 Completed University of 00:00:00 [facility] Influenza Virus 2021-02-07 Completed Universit y of Vaccine Quad IM, 00:00:00 [place] [facility] Preserv and ABX Branch Free 6 MO-64 YRS TDAP 2021-02-07 Completed University of 00:00:00 [facility] Influenza Virus 2021-02-07 Completed Universit y of Vaccine Quad IM, 00:00:00 [place] [facility] Preserv and ABX Branch Free 6 MO-64 YRS TDAP 2021-02-07 Completed University of 00:00:00 [facility] Influenza Virus 2021-02-07 Completed Universit y of Vaccine Quad IM, 00:00:00 [place] [facility] Preserv and ABX Branch Free 6 MO-64 YRS TDAP 2021-02-07 Completed University of 00:00:00 [facility] Influenza Virus 2021-02-07 Completed Universit y of Vaccine Quad IM, 00:00:00 [facility] dical Preserv and ABX Branch Free 6 MO-64 YRS TDAP 2021-02-07 Completed University of 00:00:00 [facility] Influenza Virus 2021-02-07 Completed Universit y of Vaccine Quad IM, 00:00:00 [facility] dical Preserv and ABX Branch Free 6 MO-64 YRS TDAP 2021-02-07 Completed University of 00:00:00 [facility] Influenza Virus 2021-02-07 Completed Universit y of Vaccine Quad IM, 00:00:00 [facility] dical Preserv and ABX Branch Free 6 MO-64 YRS TDAP 2021-02-07 Completed University of 00:00:00 [facility] Influenza Virus 2021-02-07 Completed Universit y of Vaccine Quad IM, 00:00:00 [place] [facility] Preserv and ABX Branch Free 6 MO-64 YRS TDAP 2021-02-07 Completed University of 00:00:00 [facility] Influenza Virus 2021-02-07 Completed Universit y of Vaccine Quad IM, 00:00:00 [place] [facility] Preserv and ABX Branch Free 6 MO-64 YRS TDAP 2021-02-07 Completed University of 00:00:00 [facility] Influenza Virus 2021-02-07 Completed Universit y of Vaccine Quad IM, 00:00:00 [place] [facility] Preserv and ABX Branch Free 6 MO-64 YRS TDAP 2021-02-07 Completed University of 00:00:00 [facility] Influenza Virus 2021-02-07 Completed Universit y of Vaccine Quad IM, 00:00:00 [place] [facility] Preserv and ABX Branch Free 6 MO-64 YRS TDAP 2021-02-07 Completed University of 00:00:00 [facility] Influenza Virus 2021-02-07 Completed Universit y of Vaccine Quad IM, 00:00:00 [place] [facility] Preserv and ABX Branch Free 6 MO-64 YRS TDAP 2021-02-07 Completed University of 00:00:00 [facility] Influenza Virus 2021-02-07 Completed Universit y of Vaccine Quad IM, 00:00:00 [facility] dical Preserv and ABX Branch Free 6 MO-64 YRS TDAP 2021-02-07 Completed University of 00:00:00 [facility] Influenza Virus 2021-02-07 Completed Universit y of Vaccine Quad IM, 00:00:00 [facility] dical Preserv and ABX Branch Free 6 MO-64 YRS TDAP 2021-02-07 Completed University of 00:00:00 [facility] Influenza Virus 2021-02-07 Completed Universit y of Vaccine Quad IM, 00:00:00 [place] [facility] Preserv and ABX Branch Free 6 MO-64 YRS TDAP 2021-02-07 Completed University of 00:00:00 [facility] Influenza Virus 2021-02-07 Completed Universit y of Vaccine Quad IM, 00:00:00 [facility] dical Preserv and ABX Branch Free 6 MO-64 YRS TDAP 2021-02-07 Completed University of 00:00:00 [facility] Influenza Virus 2021-02-07 Completed Universit y of Vaccine Quad IM, 00:00:00 [facility] dical Preserv and ABX Branch Free 6 MO-64 YRS TDAP 2021-02-07 Completed University of 00:00:00 [facility] Influenza Virus 2021-02-07 Completed Universit y of Vaccine Quad IM, 00:00:00 [place] [facility] Preserv and ABX Branch Free 6 MO-64 YRS TDAP 2021-02-07 Completed University of 00:00:00 [facility] Influenza Virus 2021-02-07 Completed Universit y of Vaccine Quad IM, 00:00:00 [place] [facility] Preserv and ABX Branch Free 6 MO-64 YRS TDAP 2021-02-07 Completed University of 00:00:00 [facility] Influenza Virus 2021-02-07 Completed Universit y of Vaccine Quad IM, 00:00:00 [place] [facility] Preserv and ABX Branch Free 6 MO-64 YRS TDAP 2021-02-07 Completed University of 00:00:00 [facility] Influenza Virus 2021-02-07 Completed Universit y of Vaccine Quad IM, 00:00:00 [place] [facility] Preserv and ABX Branch Free 6 MO-64 YRS TDAP 2021-02-07 Completed University of 00:00:00 [facility] Influenza Virus 2021-02-07 Completed Universit y of Vaccine Quad IM, 00:00:00 [place] [facility] Preserv and ABX Branch Free 6 MO-64 YRS TDAP 2021-02-07 Completed University of 00:00:00 [facility] Influenza Virus 2021-02-07 Completed Universit y of Vaccine Quad IM, 00:00:00 [place] [facility] Preserv and ABX Branch Free 6 MO-64 YRS TDAP 2021-02-07 Completed University of 00:00:00 [facility] Influenza Virus 2021-02-07 Completed Universit y of Vaccine Quad IM, 00:00:00 [place] [facility] Preserv and ABX Branch Free 6 MO-64 YRS TDAP 2021-02-07 Completed University of 00:00:00 [facility] Influenza Virus 2021-02-07 Completed Universit y of Vaccine Quad IM, 00:00:00 [place] [facility] dical Preserv and ABX Branch Free 6 MO-64 YRS TDAP 2021-02-07 Completed University of 00:00:00 [facility] Influenza Virus 2021-02-07 Completed Universit y of Vaccine Quad IM, 00:00:00 [place] [facility] dical Preserv and ABX Branch Free 6 MO-64 YRS TDAP 2021-02-07 Completed University of 00:00:00 [facility] Influenza Virus 2021-02-07 Completed Universit y of Vaccine Quad IM, 00:00:00 [place] [facility] dical Preserv and ABX Branch Free 6 MO-64 YRS TDAP 2021-02-07 Completed University of 00:00:00 [facility] Influenza Virus 2021-02-07 Completed Universit y of Vaccine Quad IM, 00:00:00 [place] Me dical Preserv and ABX Branch Free 6 MO-64 YRS TDAP 2021-02-07 Completed University of 00:00:00 [facility] Influenza Virus 2021-02-07 Completed Universit y of Vaccine Quad IM, 00:00:00 [place] [facility] dical Preserv and ABX Branch Free 6 MO-64 YRS TDAP 2021-02-07 Completed University of 00:00:00 [facility] Influenza Virus 2021-02-07 Completed Universit y of Vaccine Quad IM, 00:00:00 [place] [facility] dical Preserv and ABX Branch Free 6 MO-64 YRS TDAP 2021-02-07 Completed University of 00:00:00 [facility] Influenza Virus 2021-02-07 Completed Universit y of Vaccine Quad IM, 00:00:00 [place] [facility] dical Preserv and ABX Branch Free 6 MO-64 YRS TDAP 2021-02-07 Completed University of 00:00:00 [facility] Influenza Virus 2021-02-07 Completed Universit y of Vaccine Quad IM, 00:00:00 [place] [facility] dical Preserv and ABX Branch Free 6 MO-64 YRS TDAP 2021-02-07 Completed University of 00:00:00 [facility] Influenza Virus 2021-02-07 Completed Universit y of Vaccine Quad IM, 00:00:00 [place] [facility] dical Preserv and ABX Branch Free 6 MO-64 YRS TDAP 2021-02-07 Completed University of 00:00:00 [facility] Influenza Virus 2021-02-07 Completed Universit y of Vaccine Quad IM, 00:00:00 [place] [facility] dical Preserv and ABX Branch Free 6 MO-64 YRS TDAP 2021-02-07 Completed University of 00:00:00 [facility] Influenza Virus 2021-02-07 Completed Universit y of Vaccine Quad IM, 00:00:00 [place] [facility] dical Preserv and ABX Branch Free 6 MO-64 YRS TDAP 2021-02-07 Completed University of 00:00:00 [facility] Influenza Virus 2021-02-07 Completed Universit y of Vaccine Quad IM, 00:00:00 [place] Me dical Preserv and ABX Branch Free 6 MO-64 YRS TDAP 2021-02-07 Completed University of 00:00:00 [facility] Influenza Virus 2021-02-07 Completed Universit y of Vaccine Quad IM, 00:00:00 [place] Me dical Preserv and ABX Branch Free 6 MO-64 YRS TDAP 2021-02-07 Completed University of 00:00:00 [facility] Influenza Virus 2021-02-07 Completed Universit y of Vaccine Quad IM, 00:00:00 [facility] dical Preserv and ABX Branch Free 6 MO-64 YRS TDAP 2021-02-07 Completed University of 00:00:00 [facility] Influenza Virus 2021-02-07 Completed Universit y of Vaccine Quad IM, 00:00:00 [facility] dical Preserv and ABX Branch Free 6 MO-64 YRS TDAP 2021-02-07 Completed University of 00:00:00 [facility] Influenza Virus 2021-02-07 Completed Universit y of Vaccine Quad IM, 00:00:00 [facility] dical Preserv and ABX Branch Free 6 MO-64 YRS TDAP 2021-02-07 Completed University of 00:00:00 [facility] Influenza Virus 2021-02-07 Completed Universit y of Vaccine Quad IM, 00:00:00 [facility] dical Preserv and ABX Branch Free 6 MO-64 YRS TDAP 2021-02-07 Completed University of 00:00:00 [facility] Influenza Virus 2021-02-07 Completed Universit y of Vaccine Quad IM, 00:00:00 [facility] dical Preserv and ABX Branch Free 6 MO-64 YRS TDAP 2021-02-07 Completed University of 00:00:00 [facility] Influenza Virus 2021-02-07 Completed Universit y of Vaccine Quad IM, 00:00:00 [facility] dical Preserv and ABX Branch Free 6 MO-64 YRS TDAP 2021-02-07 Completed University of 00:00:00 [facility] Influenza Virus 2021-02-07 Completed Universit y of Vaccine Quad IM, 00:00:00 [place] [facility] dical Preserv and ABX Branch Free 6 MO-64 YRS TDAP 2021-02-07 Completed University of 00:00:00 [facility] Influenza Virus 2021-02-07 Completed Universit y of Vaccine Quad IM, 00:00:00 [place] [facility] dical Preserv and ABX Branch Free 6 MO-64 YRS TDAP 2021-02-07 Completed University of 00:00:00 [facility] Influenza Virus 2021-02-07 Completed Universit y of Vaccine Quad IM, 00:00:00 [place] Me dical Preserv and ABX Branch Free 6 MO-64 YRS TDAP 2021-02-07 Completed University of 00:00:00 [facility] Influenza Virus 2021-02-07 Completed Universit y of Vaccine Quad IM, 00:00:00 [place] [facility] dical Preserv and ABX Branch Free 6 MO-64 YRS TDAP 2021-02-07 Completed University of 00:00:00 [facility] Influenza Virus 2021-02-07 Completed Universit y of Vaccine Quad IM, 00:00:00 [place] [facility] dical Preserv and ABX Branch Free 6 MO-64 YRS TDAP 2021-02-07 Completed University of 00:00:00 [facility] Influenza Virus 2021-02-07 Completed Universit y of Vaccine Quad IM, 00:00:00 [place] [facility] dical Preserv and ABX Branch Free 6 MO-64 YRS TDAP 2021-02-07 Completed [facility] 00:00:00 [facility] Influenza Virus 2021-02-07 Completed [facility], 00:[facility] [place] [facility] Preserv and ABX Branch Free 6 MO-64 YRS TDAP 2021-02-07 Completed [facility] 00:00:00 [facility] Influenza Virus 2021-02-07 Completed [facility], 00:00:00 [place] [facility] Preserv and ABX Branch Free 6 MO-64 YRS TDAP 2021-02-07 Completed [facility] 00:00:00 [facility] Influenza Virus 2021-02-07 Completed [facility], 00:00:00 [place] [facility] Preserv and ABX Branch Free 6 MO-64 YRS TDAP 2021-02-07 Completed [facility] 00:00:00 [facility] Influenza Virus 2021-02-07 Completed [facility], 00:00:00 [place] [facility] Preserv and ABX Branch Free 6 MO-64 YRS TDAP 2021-02-07 Completed [facility] 00:00:00 [facility] Influenza Virus 2021-02-07 Completed [facility], 00:00:00 [place] [facility] Preserv and ABX Branch Free 6 MO-64 YRS TDAP 2021-02-07 Completed [facility] 00:00:00 [facility] Influenza Virus 2021-02-07 Completed [facility], 00:00:00 [place] [facility] Preserv and ABX Branch Free 6 MO-64 YRS TDAP 2021-02-07 Completed [facility] 00:00:00 [facility] Influenza Virus 2021-02-07 Completed [facility], 00:00:00 [place] [facility] Preserv and ABX Branch Free 6 MO-64 YRS TDAP 2021-02-07 Completed [facility] 00:00:00 [facility] Influenza Virus 2021-02-07 Completed [facility], 00:00:00 [place] [facility] Preserv and ABX Branch Free 6 MO-64 YRS TDAP 2021-02-07 Completed [facility] 00:00:00 [facility] Influenza Virus 2021-02-07 Completed [facility], 00:00:00 [place] [facility] Preserv and ABX Branch Free 6 MO-64 YRS TDAP 2021-02-07 Completed [facility] 00:00:00 [facility] Influenza Virus 2021-02-07 Completed [facility], 00:00:00 [place] [facility] Preserv and ABX Branch Free 6 MO-64 YRS TDAP 2021-02-07 Completed [facility] 00:00:00 [facility] Influenza Virus 2021-02-07 Completed [facility], 00:00:00 [place] [facility] Preserv and ABX Branch Free 6 MO-64 YRS TDAP 2021-02-07 Completed [facility] 00:00:00 [facility] Influenza Virus 2021-02-07 Completed [facility], 00:00:00 [place] [facility] Preserv and ABX Branch Free 6 MO-64 YRS TDAP 2021-02-07 Completed [facility] 00:00:00 [facility] Influenza Virus 2021-02-07 Completed [facility], 00:00:00 [place] [facility] Preserv and ABX Branch Free 6 MO-64 YRS TDAP 2021-02-07 Completed [facility] 00:00:00 [facility] Influenza Virus 2021-02-07 Completed [facility], 00:00:00 [place] [facility] Preserv and ABX Branch Free 6 MO-64 YRS TDAP 2021-02-07 Completed [facility] 00:00:00 [facility] Influenza Virus 2021-02-07 Completed [facility], 00:00:00 [place] [facility] Preserv and ABX Branch Free 6 MO-64 YRS TDAP 2021-02-07 Completed [facility] 00:00:00 [facility] Influenza Virus 2021-02-07 Completed [facility], 00:00:00 [place] [facility] Preserv and ABX Branch Free 6 MO-64 YRS TDAP 2021-02-07 Completed [facility] 00:00:00 [facility] Influenza Virus 2021-02-07 Completed [facility], 00:00:00 [place] [facility] Preserv and ABX Branch Free 6 MO-64 YRS TDAP 2021-02-07 Completed [facility] 00:00:00 [facility] Influenza Virus 2021-02-07 Completed [facility], 00:00:00 [place] [facility] Preserv and ABX Branch Free 6 MO-64 YRS TDAP 2021-02-07 Completed [facility] 00:00:00 [facility] Influenza Virus 2021-02-07 Completed [facility], 00:00:00 [place] [facility] Preserv and ABX Branch Free 6 MO-64 YRS TDAP 2021-02-07 Completed [facility] 00:00:00 [facility] Influenza Virus 2021-02-07 Completed [facility], 00:00:00 [place] [facility] Preserv and ABX Branch Free 6 MO-64 YRS TDAP 2021-02-07 Completed [facility] 00:00:00 [facility] Influenza Virus 2021-02-07 Completed [facility], 00:00:00 [place] [facility] Preserv and ABX Branch Free 6 MO-64 YRS TDAP 2021-02-07 Completed [facility] 00:00:00 [facility] Influenza Virus 2021-02-07 Completed [facility], 00:00:00 [place] [facility] Preserv and ABX Branch Free 6 MO-64 YRS TDAP 2021-02-07 Completed [facility] 00:00:00 [facility] Influenza Virus 2021-02-07 Completed [facility], 00:00:00 [place] [facility] Preserv and ABX Branch Free 6 MO-64 YRS TDAP 2021-02-07 Completed [facility] 00:00:00 [facility] Influenza Virus 2021-02-07 Completed [facility], 00:00:00 [place] [facility] Preserv and ABX Branch Free 6 MO-64 YRS TDAP 2021-02-07 Completed [facility] 00:00:00 [facility] Influenza Virus 2021-02-07 Completed [facility], 00:00:00 [place] [facility] Preserv and ABX Branch Free 6 MO-64 YRS TDAP 2021-02-07 Completed [facility] 00:00:00 [facility] Influenza Virus 2021-02-07 Completed [facility], 00:00:00 [place] [facility] Preserv and ABX Branch Free 6 MO-64 YRS TDAP 2021-02-07 Completed [facility] 00:00:00 [facility] Influenza Virus 2021-02-07 Completed [facility], 00:00:00 [place] [facility] Preserv and ABX Branch Free 6 MO-64 YRS TDAP 2021-02-07 Completed [facility] 00:00:00 [facility] Influenza Virus 2021-02-07 Completed [facility], 00:00:00 [place] [facility] Preserv and ABX Branch Free 6 MO-64 YRS TDAP 2021-02-07 Completed [facility] 00:00:00 [facility] Influenza Virus 2021-02-07 Completed [facility], 00:00:00 [place] [facility] Preserv and ABX Branch Free 6 MO-64 YRS TDAP 2021-02-07 Completed [facility] 00:00:00 [facility] Influenza Virus 2021-02-07 Completed [facility], 00:00:00 [place] [facility] Preserv and ABX Branch Free 6 MO-64 YRS TDAP 2021-02-07 Completed [facility] 00:00:00 [facility] Influenza Virus 2021-02-07 Completed [facility], 00:00:00 [place] [facility] Preserv and ABX Branch Free 6 MO-64 YRS TDAP 2021-02-07 Completed [facility] 00:00:00 [facility] Influenza Virus 2021-02-07 Completed [facility], 00:00:00 [place] [facility] Preserv and ABX Branch Free 6 MO-64 YRS TDAP 2021-02-07 Completed [facility] 00:00:00 [facility] Influenza Virus 2021-02-07 Completed [facility], 00:00:00 [facility] dical Preserv and ABX Branch Free 6 MO-64 YRS TDAP 2021-02-07 Completed [facility] of 00:00:00 [facility] Influenza Virus 2021-02-07 Completed [facility], 00:00:00 [facility] dical Preserv and ABX Branch Free 6 MO-64 YRS TDAP 2021-02-07 Completed [facility] of 00:00:00 [facility] Influenza Virus 2021-02-07 Completed [facility], 00:00:00 [facility] dical Preserv and ABX Branch Free 6 MO-64 YRS TDAP 2021-02-07 Completed [facility] of 00:00:00 [facility] Influenza Virus 2021-02-07 Completed [facility], 00:00:00 [facility] dical Preserv and ABX Branch Free 6 MO-64 YRS TDAP 2021-02-07 Completed [facility] 00:00:00 [facility] Influenza Virus 2021-02-07 Completed [facility], 00:00:00 [facility] dical Preserv and ABX Branch Free 6 MO-64 YRS TDAP 2021-02-07 Completed [facility] 00:00:00 [facility] Influenza Virus 2020-01-25 Completed Universit y [...] y of [facility] .5 mL 00:00:00 [facility] 6+ MO Branch Influenza Virus 2018-12-23 Completed [facility] .5 mL 00:00:00 [facility] 6+ MO Branch Influenza Virus 2018-12-23 Completed [facility] .5 mL 00:00:00 [facility] 6+ MO Branch Influenza Virus 2018-12-23 Completed [facility] .5 mL 00:00:00 [facility] 6+ MO Branch Influenza Virus 2018-12-23 Completed [facility] .5 mL 00:00:00 [facility] 6+ MO Branch Influenza Virus 2018-12-23 Completed [facility] .5 mL 00:00:00 [facility] 6+ MO Branch Influenza Virus 2018-12-23 Completed [facility] .5 mL 00:00:00 [facility] 6+ MO Branch Influenza Virus 2018-12-23 Completed [facility] .5 mL 00:00:00 [facility] 6+ MO Branch Influenza Virus 2018-12-23 Completed [facility] .5 mL 00:00:00 [facility] 6+ MO Branch Influenza Virus 2018-12-23 Completed [facility] .5 mL 00:00:00 [facility] 6+ MO Branch Influenza Virus 2018-12-23 Completed [facility] .5 mL 00:00:00 [facility] 6+ MO Branch Influenza Virus 2018-12-23 Completed [facility] .5 mL 00:00:00 [facility] 6+ MO Branch Influenza Virus 2018-12-23 Completed [facility] .5 mL 00:00:00 [facility] 6+ MO Branch Influenza Virus 2018-12-23 Completed [facility] .5 mL 00:00:00 [facility] 6+ MO Branch Influenza Virus 2018-12-23 Completed [facility] .5 mL 00:00:00 [facility] 6+ MO Branch Influenza Virus [...] y of [facility] .5 mL 00:00:00 [facility] 6+ MO Branch Influenza Virus 2018-12-23 Completed [facility] y [facility] .5 mL 00:00:00 [place] [facility] 6+ MO Branch Influenza Virus 2018-12-23 Completed [facility] y [facility] .5 mL 00:00:00 [facility] 6+ MO Branch Influenza Virus 2018-12-23 Completed [facility] .5 mL 00:00:00 [place] [facility] 6+ MO Branch Influenza Virus 2018-12-23 Completed [facility] .5 mL 00:00:00 [facility] 6+ MO Branch Influenza Virus 2018-12-23 Completed [facility] .5 mL 00:00:00 [facility] 6+ MO Branch Influenza Virus [...] y of [facility] .5 mL 00:00:00 [facility] 6+ MO Branch Influenza Virus [...] y of [facility] .5 mL 00:00:00 [facility] 6+ MO Branch Influenza Virus 2018-12-23 Completed [facility] .5 mL 00:00:00 [facility] 6+ MO Branch Influenza Virus 2018-12-23 Completed [facility] .5 mL 00:00:00 [facility] 6+ MO Branch Influenza Virus 2018-12-23 Completed [facility] .5 mL 00:00:00 [facility] 6+ MO Branch Influenza Virus 2018-12-23 Completed [facility] .5 mL 00:00:00 [facility] 6+ MO Branch Influenza Virus 2018-12-23 Completed [facility] y [facility] .5 mL 00:00:00 [facility] 6+ MO Branch Influenza Virus 2018-12-23 Completed [facility] y of [facility] .5 mL 00:00:00 [facility] 6+ MO Branch Influenza Virus 2018-12-23 Completed [facility] .5 mL 00:00:00 [facility] 6+ MO Branch Influenza Virus 2018-12-23 Completed [facility] .5 mL 00:00:00 [facility] 6+ MO Branch Influenza Virus 2018-12-23 Completed [facility] .5 mL 00:00:00 [facility] 6+ MO Branch Influenza Virus 2018-12-23 Completed [facility] .5 mL 00:00:00 [facility] 6+ MO Branch Influenza Virus 2018-12-23 Completed [facility] .5 mL 00:00:00 [facility] 6+ MO Branch Influenza Virus [...] y of [facility] .5 mL 00:00:00 [facility] 6+ MO Branch Influenza Virus [...] y of [facility] .5 mL 00:00:00 [facility] 6+ MO Branch Influenza Virus [...] y of [facility] .5 mL 00:00:00 [facility] 6+ MO Branch Influenza Virus 2018-12-23 Completed [facility] .5 mL 00:00:00 [place] [facility] 6+ MO Branch Influenza Virus 2018-12-23 Completed [facility] .5 mL 00:00:00 [facility] 6+ MO Branch Influenza Virus 2018-12-23 Completed [facility] .5 mL 00:00:00 [facility] 6+ MO Branch Influenza Virus 2018-12-23 Completed [facility] y [facility] .5 mL 00:00:00 [facility] 6+ MO Branch Influenza Virus [...] y of [facility] .5 mL 00:00:00 [facility] IM 6+ MO Branch Influenza Virus 2018-12-23 Completed [facility]it y of [facility] .5 mL 00:00:00 [facility] IM 6+ MO Branch Influenza Virus 2018-12-23 Completed [facility] y of [facility] .5 mL 00:00:00 [facility] 6+ MO Branch TDAP (ADACEL) 2018-09-14 Completed [facility] of VACCINE 00:00:00 [facility] TDAP (ADACEL) 2018-09-14 Completed [facility] of VACCINE 00:00:00 [facility] TDAP (ADACEL) 2018-09-14 Completed [facility] of VACCINE 00:00:00 [facility] TDAP (ADACEL) 2018-09-14 Completed [facility] of VACCINE 00:00:00 [facility] TDAP (ADACEL) 2018-09-14 Completed [facility] of VACCINE 00:00:00 [facility] TDAP (ADACEL) 2018-09-14 Completed [facility] of VACCINE 00:00:00 [facility] TDAP (ADACEL) 2018-09-14 Completed [facility] of VACCINE 00:00:00 [facility] TDAP (ADACEL) 2018-09-14 Completed [facility] of VACCINE 00:00:00 [facility] TDAP (ADACEL) 2018-09-14 Completed [facility] of VACCINE 00:00:00 [facility] TDAP (ADACEL) 2018-09-14 Completed [facility] of VACCINE 00:00:00 [facility] TDAP (ADACEL) 2018-09-14 Completed [facility] of VACCINE 00:00:00 [facility] TDAP (ADACEL) 2018-09-14 Completed [facility] of VACCINE 00:00:00 [facility] TDAP (ADACEL) 2018-09-14 Completed [facility] of VACCINE 00:00:00 [facility] TDAP (ADACEL) 2018-09-14 Completed [facility] of VACCINE 00:00:00 [facility] TDAP (ADACEL) 2018-09-14 Completed [facility] of VACCINE 00:00:00 [facility] TDAP (ADACEL) 2018-09-14 Completed [facility] of VACCINE 00:00:00 [facility] TDAP (ADACEL) 2018-09-14 Completed [facility] of VACCINE 00:00:00 [facility] TDAP (ADACEL) 2018-09-14 Completed [facility] of VACCINE 00:00:00 [facility] TDAP (ADACEL) 2018-09-14 Completed [facility] of VACCINE 00:00:00 [facility] Branch TDAP (ADACEL) 2018-09-14 Completed [facility] of VACCINE 00:00:00 [facility] TDAP (ADACEL) 2018-09-14 Completed [facility] VACCINE 00:00:00 [facility] TDAP (ADACEL) 2018-09-14 Completed [facility] of VACCINE 00:00:00 [facility] Branch TDAP (ADACEL) 2018-09-14 Completed [facility] of VACCINE 00:00:00 [facility] Branch TDAP (ADACEL) 2018-09-14 Completed [facility] of VACCINE 00:00:00 [facility] Branch TDAP (ADACEL) 2018-09-14 Completed [facility] of VACCINE 00:00:00 [facility] Branch TDAP (ADACEL) 2018-09-14 Completed [facility] of VACCINE 00:00:00 [facility] Branch TDAP (ADACEL) 2018-09-14 Completed [facility] of VACCINE 00:00:00 [facility] Branch TDAP (ADACEL) 2018-09-14 Completed [facility] of VACCINE 00:00:00 [facility] Branch TDAP (ADACEL) 2018-09-14 Completed [facility] of VACCINE 00:00:00 [facility] Branch TDAP (ADACEL) 2018-09-14 Completed [facility] of VACCINE 00:00:00 [facility] Branch TDAP (ADACEL) 2018-09-14 Completed [facility] of VACCINE 00:00:00 [facility] Branch TDAP (ADACEL) 2018-09-14 Completed [facility] of VACCINE 00:00:00 [facility] Branch TDAP (ADACEL) 2018-09-14 Completed [facility] of VACCINE 00:00:00 [facility] Branch TDAP (ADACEL) 2018-09-14 Completed [facility] of VACCINE 00:00:00 [facility] Branch TDAP (ADACEL) 2018-09-14 Completed [facility] of VACCINE 00:00:00 [facility] Branch TDAP (ADACEL) 2018-09-14 Completed [facility] of VACCINE 00:00:00 [facility] Branch TDAP (ADACEL) 2018-09-14 Completed [facility] of VACCINE 00:00:00 [facility] TDAP (ADACEL) 2018-09-14 Completed [facility] of VACCINE 00:00:00 [facility] Branch TDAP (ADACEL) 2018-09-14 Completed [facility] of VACCINE 00:00:00 [facility] Branch TDAP (ADACEL) 2018-09-14 Completed [facility] of VACCINE 00:00:00 [facility] Branch TDAP (ADACEL) 2018-09-14 Completed [facility] of VACCINE 00:00:00 [facility] TDAP (ADACEL) 2018-09-14 Completed [facility] of VACCINE 00:00:00 [facility] TDAP (ADACEL) 2018-09-14 Completed [facility] VACCINE 00:00:00 [facility] TDAP (ADACEL) 2018-09-14 Completed [facility] of VACCINE 00:00:00 [facility] TDAP (ADACEL) 2018-09-14 Completed [facility] of VACCINE 00:00:00 [facility] Branch TDAP (ADACEL) 2018-09-14 Completed [facility] of VACCINE 00:00:00 [facility] Branch TDAP (ADACEL) 2018-09-14 Completed [facility] of VACCINE 00:00:00 [facility] Branch TDAP (ADACEL) 2018-09-14 Completed [facility] of VACCINE 00:00:00 [facility] Branch TDAP (ADACEL) 2018-09-14 Completed [facility] of VACCINE 00:00:00 [facility] Branch TDAP (ADACEL) 2018-09-14 Completed [facility] of VACCINE 00:00:00 [facility] Branch TDAP (ADACEL) 2018-09-14 Completed [facility] of VACCINE 00:00:00 [facility] Branch TDAP (ADACEL) 2018-09-14 Completed [facility] of VACCINE 00:00:00 [facility] Branch TDAP (ADACEL) 2018-09-14 Completed [facility] of VACCINE 00:00:00 [facility] Branch TDAP (ADACEL) 2018-09-14 Completed [facility] of VACCINE 00:00:00 [facility] Branch TDAP (ADACEL) 2018-09-14 Completed [facility] of VACCINE 00:00:00 [facility] TDAP (ADACEL) 2018-09-14 Completed [facility] of VACCINE 00:00:00 [facility] TDAP (ADACEL) 2018-09-14 Completed [facility] of VACCINE 00:00:00 [facility] TDAP (ADACEL) 2018-09-14 Completed [facility] of VACCINE 00:00:00 [facility] TDAP (ADACEL) 2018-09-14 Completed [facility] of VACCINE 00:00:00 [facility] TDAP (ADACEL) 2018-09-14 Completed [facility] of VACCINE 00:00:00 [facility] TDAP (ADACEL) 2018-09-14 Completed [facility] of VACCINE 00:00:00 [facility] TDAP (ADACEL) 2018-09-14 Completed [facility] of VACCINE 00:00:00 [facility] TDAP (ADACEL) 2018-09-14 Completed [facility] of VACCINE 00:00:00 [facility] TDAP (ADACEL) 2018-09-14 Completed [facility] of VACCINE 00:00:00 [facility] TDAP (ADACEL) 2018-09-14 Completed [facility] VACCINE 00:00:00 [facility] TDAP (ADACEL) 2018-09-14 Completed [facility] of VACCINE 00:00:00 [facility] TDAP (ADACEL) 2018-09-14 Completed [facility] of VACCINE 00:00:00 [facility] TDAP (ADACEL) 2018-09-14 Completed [facility] of VACCINE 00:00:00 [facility] TDAP (ADACEL) 2018-09-14 Completed [facility] of VACCINE 00:00:00 [facility] TDAP (ADACEL) 2018-09-14 Completed [facility] of VACCINE 00:00:00 [facility] Branch TDAP (ADACEL) 2018-09-14 Completed [facility] of VACCINE 00:00:00 [facility] TDAP (ADACEL) 2018-09-14 Completed [facility] of VACCINE 00:00:00 [facility] TDAP (ADACEL) 2018-09-14 Completed [facility] of VACCINE 00:00:00 [facility] TDAP (ADACEL) 2018-09-14 Completed [facility] of VACCINE 00:00:00 [facility] TDAP (ADACEL) 2018-09-14 Completed [facility] of VACCINE 00:00:00 [facility] TDAP (ADACEL) 2018-09-14 Completed [facility] of VACCINE 00:00:00 [facility] TDAP (ADACEL) 2018-09-14 Completed [facility] of VACCINE 00:00:00 [facility] TDAP (ADACEL) 2018-09-14 Completed [facility] of VACCINE 00:00:00 [facility] TDAP (ADACEL) 2018-09-14 Completed [facility] of VACCINE 00:00:00 [facility] TDAP (ADACEL) 2018-09-14 Completed [facility] of VACCINE 00:00:00 [facility] TDAP (ADACEL) 2018-09-14 Completed [facility] of VACCINE 00:00:00 [facility] TDAP (ADACEL) 2018-09-14 Completed [facility] of VACCINE 00:00:00 [facility] TDAP (ADACEL) 2018-09-14 Completed [facility] of VACCINE 00:00:00 [facility] TDAP (ADACEL) 2018-09-14 Completed [facility] VACCINE 00:00:00 [facility] TDAP (ADACEL) 2018-09-14 Completed [facility] of VACCINE 00:00:00 [facility] TDAP (ADACEL) 2018-09-14 Completed [facility] of VACCINE 00:00:00 [facility] TDAP (ADACEL) 2018-09-14 Completed [facility] of VACCINE 00:00:00 [facility] TDAP (ADACEL) 2018-09-14 Completed [facility] of VACCINE 00:00:00 [facility] TDAP (ADACEL) 2018-09-14 Completed [facility] of VACCINE 00:00:00 [facility] TDAP (ADACEL) 2018-09-14 Completed [facility] of VACCINE 00:00:00 [facility] Vital Signs Vital Name Observation Time Observation Value Comments Source Systolic blood 2022-08-08 19:30:00 124 mm[Hg] Univer sity of pressure [facility] Diastolic blood 2022-08-08 19:30:00 80 mm[Hg] Unive rsity of [facility] Heart rate 2022-08-08 19:30:00 50 /min [facility] Body temperature 2022-08-08 19:30:00 36.61 Darleen [facility] Respiratory rate 2022-08-08 19:30:00 17 /[facility] 2022-08-08 19:30:00 165.1 cm [facility] Body weight 2022-08-08 19:30:00 56.427 kg [facility] BMI 2022-08-08 19:30:00 20.70 kg/m2 [facility] Oxygen saturation in 2022-08-08 19:30:00 100 /min [facility] Arterial blood by [facility] Pulse oximetry Branch Systolic blood 2022-08-04 18:54:00 102 mm[Hg] Univer sity of pressure [facility] Diastolic blood 2022-08-04 18:54:00 70 mm[Hg] Unive rsity of pressure [facility] Heart rate 2022-08-04 18:54:00 76 /min [facility] Body height 2022-08-04 18:54:00 165.1 cm [facility] Body weight 2022-08-04 18:54:00 56.7 kg [facility] BMI 2022-08-04 18:54:00 20.80 kg/m2 [facility] Systolic blood 2022-06-09 13:23:00 100 mm[Hg] Univer sity of pressure [facility] Diastolic blood 2022-06-09 13:23:00 77 mm[Hg] Unive rsity of pressure [facility] Heart rate 2022-06-09 13:23:00 73 /min Universi ty of [facility] Body temperature 2022-06-09 13:23:00 36.61 Darleen Univ ers[facility] Respiratory rate 2022-06-09 13:23:00 20 /min Univ ersity of [facility] Body height 2022-06-09 13:23:00 165.1 cm [facility] [place] Body weight 2022-06-09 13:23:00 61.009 kg [facility] [place] BMI 2022-06-09 13:23:00 22.38 kg/m2 [facility] [place] Oxygen saturation in 2022-06-09 13:23:00 100 /min University of Arterial blood by [facility] Pulse oximetry Branch Systolic blood 2022-04-30 16:02:00 108 mm[Hg] Univer sity of pressure [facility] Diastolic blood 2022-04-30 16:02:00 76 mm[Hg] Unive rsity of pressure [facility] Heart rate 2022-04-30 16:02:00 69 /min Universi ty of [facility] Body temperature 2022-04-30 16:02:00 36.78 Darleen Univ ersity of [facility] Branch Respiratory rate 2022-04-30 16:02:00 18 /min Univ [facility] Body height 2022-04-30 16:02:00 165.1 cm [facility] Body weight 2022-04-30 16:02:00 54.885 kg [facility] BMI 2022-04-30 16:02:00 20.14 kg/m2 Universi ty of [facility] Branch Systolic blood 2022-03-11 03:49:00 94 mm[Hg] Univer sity of pressure [facility] Diastolic blood 2022-03-11 03:49:00 66 mm[Hg] Unive rsity of pressure [facility] Heart rate 2022-03-11 03:49:00 68 /min [facility] Body temperature 2022-03-11 03:49:00 36.22 Darleen [facility] Res[facility] rate 2022-03-11 03:49:00 16 /min [facility] Oxygen saturation in 2022-03-11 03:49:00 97 /min [facility] blood by [facility] Pulse oximetry Branch Body height 2022-03-10 23:54:00 [facility].1 cm [facility] Body weight 2022-03-10 23:54:00 56.7 kg [facility] BMI 2022-03-10 23:54:00 20.80 kg/m2 [facility] Systolic blood 2022-01-27 16:15:00 103 mm[Hg] Univer sity [facility] Diastolic blood 2022-01-27 16:15:00 74 mm[facility]Hg] [facility] 2022-01-27 16:15:00 93 /min [facility] Body weight 2022-01-27 16:15:00 57.607 kg [facility] BMI 2022-01-27 16:15:00 21.13 kg/m2 [facility] Procedures Procedure Date / Time Performing Clinician Source Performed HEPATITIS B SURFACE 2022-06-26 15:45:00 Teo Ingram [facility] HIV 1/2 AG-AB WITH REFLEX 2022-06-26 15:45:00 [facility] BI ULTRASOUND BREAST 2022-06-26 14:44:[address] [facility] COMPLETE LEFT Medical Branch BI DIAGNOSTIC 2022-06-26 14:00:00 Teo Ingram [place] [facility] [place] TOMOSYNTHESIS LEFT Medical Branc h XR CHEST 1 VW 2022-06-09 14:21:[address] [facility] CT CERVICAL SPINE WO 2022-06-09 14:18:00 Eric Fernandez [facility] CONTRAST [facility] INSURANCE CORRESPONDENCE 2022-06-08 05:01:00 Doctor Shah [facility] CONSENT/REFUSAL FOR 2022-06-03 16:39:37 Doctor Shah [facility] DIAGNOSIS AND TREATMENT [facility] DME/SUPPLY JUSTIFICATION 2022-05-04 06:01:00 Doctor Shah [facility] EXTERNAL PROVIDER RECORDS 2022-04-03 06:01:00 Doctor Shah [facility] XR WRIST <3 VW RIGHT 2022-03-11 00:49:27 Singer [facility] XR WRIST 3+ VW LEFT 2022-03-11 00:49:27 Singer Darryn [facility] COVID-19 (ID NOW RAPID 2022-03-10 23:52:00 Darryn Owusu [facility] TESTING) [facility] POCT TEST 2022-03-10 23:46:00 Darryn Owusu [facility] COMP. METABOLIC PANEL 2022-03-10 23:45:00 Darryn Owusu [facility] ([id number]) [facility] SALICYLATE 2022-03-10 23:45:[facility] 2022-03-10 23:45:00 Owusu, [facility] CBC WITH DIFF 2022-03-10 23:45:00 [facility] URIN[facility]YSIS 2022-03-10 23:45:00 Singer [facility] URINE DRUG (IMMUNOASSAY) 2022-03-10 23:45:00 Darryn Owusu [facility] - COMPREHENSIVE DRUG Medical [facility] nc SCREEN W/O REFLEX FLU VACC ([id number]), 6 2022-01-27 16:36:45 Arik Benz [facility] MO-64 YRS, .5ML, IM, QUAD [facility] (FLUCELVAX) ASSIGNMENT OF BENEFITS 2022-01-27 16:03:32 Doctor Alyssa, [facility] POCT URINALYSIS 2022-01-27 00:00:00 Demar Arik [facility] o [facility] AUTHORIZATION FOR RELEASE 2022-01-08 05:01:00 Doctor Unassigned, [facility] [place] [facility] AUTHORIZATION FOR RELEASE 2021-12-23 05:01:00 Doctor Unassigned, [facility] [place] [facility] Encounters Start End Encounter Admission Attending Care Care Encounter Source Date/Time Date/Time Type Type Clinicians Facility Department ID 2021-05-01 Outpatient MDA MDA [id number] 17:26:47 Andgaryo n 2021-02-26 Outpatient P [facility] [id number] Univers 18:38:00 ity of [facility] 2021-01-27 Outpatient P [facility] [id number] Univers 20:41:07 ity of [facility] 2021-01-27 Emergency [facility] [id number] Univers 20:40:15 ity of [facility] 2021-01-27 Emergency [facility] [id number] Univers 15:33:55 ity of [facility] 2021-01-27 Outpatient U [facility] [id number] Univers 01:16:04 ity of [facility] 2021-01-27 Emergency [facility] [id number] Univers 00:53:09 ity of [facility] 2021-01-26 Emergency [facility] [id number] Univers 22:49:05 ity of [facility] 2021-01-25 Emergency [facility] [id number] Univers 21:41:56 ity of [facility] 2021-01-25 Outpatient [facility] [id number] Univers 13:01:25 ALY ity [facility] 2021-01-25 [id number] Univers 13:01:24 ALY ity of [facility] 2021-01-25 Outpatient R SHELBY, [facility] [id number] Univers 12:47:10 ALY ity [facility] 2021-01-24 Outpatient R SHELBY, [facility] [id number] Univers 15:57:25 ALY ity [facility] 2021-01-24 Emergency [facility] [id number] Univers 10:32:11 ity of [facility] 2021-01-24 Emergency [facility] [id number] Univers 10:16:12 ity of [facility] 2021-01-23 Emergency [facility] [id number] Univers 21:15:49 ity [facility] 2022-12-08 2022-12-08 Outpatient Campos BENZ [facility] [id number] Univers 16:15:00 16:15:00 ARIK ellis [facility] 2022-08-15 2022-08-15 [facility] 1.2.840.114 [id number] Univers 00:00:00 00:00:00 [facility] 350.1.13.10 it y of Jonathan [place] 4.2.7.2.686 [place] as DONTE?BLEA [id number] [facility] 044 [facility] OFFICE [facility] 2022-08-10 2022-08-10 Telephone [facility] 1.2.840.114 [id number] Univers 00:00:00 00:00:00 Teo ANDERSONBANNER 350.1.13.10 i ty of [place] [id number] [facility] [address] [facility] 2022-08-10 2022-08-10 Telephone [facility] 1.2.840.114 [id number] Univers 00:00:00 00:00:00 Teo ENCINAL 350.1.13.10 i ty of [facility] 4.2.7.2.[place] [id number] [facility] 2022-08-08 2022-08-08 Nurse Nurse, [facility] 1.2.840.114 [id number] Univers 14:30:00 14:50:00 Visit Unknown, [facility] HEALTH 350.1.13.10 ity of [place] 4.2.7.2.686 [place] as DONTE?BLEA [id number] [facility] [address] [facility] OFFICE [facility] 2022-08-08 2022-08-08 Outpatient R NATALY [facility] [id number] Univers 14:30:00 14:30:00 TEO [facility] 2022-08-04 2022-08-04 Office [facility] 1.2.840.114 [id number] Univers 14:30:00 15:00:00 Visit [facility] 350.1.13.10 it y of [place] 4.2.7.2.686 Henry as DONTE?BLEA [phone] Nh dread MELVIN [address] [place] [address] MEDICAL OFFICE [facility] 2022-08-04 2022-08-04 Outpatient R [facility] [id number] Univers 14:30:00 14:18:19 ARIK [facility] 2022-07-30 2022-07-30 RefJUAN Stein 1.2.840.114 [id number] Univers 00:00:00 00:00:00 Abril GARAY 350.1.13.10 it y of HOSPITAL 4.2.7.2.686 [place] as [phone] [address] 2022-07-26 2022-07-26 [facility] 1.2.840.114 [id number] Univers 00:00:00 00:00:00 [facility] 350.1.13.10 it y of [place] 4.2.7.2.686 Henry as DONTE?BLEA [id number] Nh dread MELVIN [address] [place] [address] OFFICE [facility] 2022-07-22 2022-07-22 Telephone [facility] 1.2.840.114 [id number] Univers 00:00:00 00:00:00 [facility] 350.1.13.10 it y of [place] 4.2.7.2.686 Henry as DONTE?BLEA [phone] Nh dread MELVIN [address] [place] MEDICAL OFFICE [facility] 2022-06-26 2022-06-26 [facility] 1.2.840.114 [id number] Univers 08:19:16 23:59:00 Encounter Teo SPECIALTY 350.1.13.10 ity of [place] AT [id number] Nh dread MESSER [address] [facility] 2022-06-26 2022-06-26 Vaccine Specialist Lab, [facility] 1.2.840.114 [id number] Univers 10:30:00 10:45:00 Visit ShanmargaritaTeo obando SPECIALTY 350.1.13.10 ity of [place]2.7.2.[place] [id number] Nh dread MESSER 353 [facility] 2022-06-26 2022-06-26 Outpatient R NATALY [facility] [id number] Univers 08:18:41 08:18:00 TEO ity of [facility] 2022-06-26 2022-06-26 Hospital [facility] 1.2.840.114 [id number] Univers 08:00:00 08:18:00 Encounter Teo SPECIALTY 350.1.13.10 ity of [place]2.[place].2.686 [place] [phone] Nh dread MESSER 800 [facility] 2022-06-26 2022-06-26 Case ShanmargaritatopherKATHERINE 1.2.365.449 [id number] Univers 00:00:00 00:00:00 Management Teo PEDIATRIC 350.1.13.10 ity of [place].2.[place] [id number] [place] [address] [address] [facility] 2022-06-25 2022-06-25 Patient Hectoryamilgage [facility] 1.2.840.114 [id number] Univers 00:00:00 00:00:00 Secure [facility] 350.1.13.10 ity of [place] 4.2.7.2.686 [place] as DONTE?BLEA [id number] [address] MEDICAL OFFICE [facility] 2022-06-25 2022-06-25 Patient Demar [facility] 1.2.840.114 [id number] Univers 00:00:00 00:00:00 Secure Pag Arik HEALTH 350.1.13.10 ity of [place] 4.2.7.2.686 [place] as DONTE?BLEA [id number] [address] MEDICAL OFFICE [facility] 2022-06-25 2022-06-25 Patient Shanbrian [facility] 1.2.771.555 [id number] Univers 00:00:00 00:00:00 Secure Msg Teo TREVIZO 350.1.13.10 ity of [place] 4.2.7.2.[place] [phone] Nh dical NAL [address] [place] [address] 2022-06-22 2022-06-22 Refill [facility] 1.2.840.114 [id number] Univers 00:00:00 00:00:00 Arik HEALTH 350.1.13.10 it y of [place] 4.2.7.2.686 [place] as DONTE?BLEA [id number] Nh dicdhruv [address] OFFICE [facility] 2022-06-22 2022-06-22 Telephone [facility] 1.2.840.114 [id number] Univers 00:00:00 00:00:00 Teo TREVIZO 350.1.13.10 i ty of [place].2.7.2.[place] [id number] Nh dical NAL [address] [place] [address] 2022-06-19 2022-06-19 Telephone [facility] 1.2.840.114 [id number] Univers 00:00:00 00:00:00 Teo TREVIZO 350.1.13.10 i ty of [facility] 4.2.7.2.686 [place] [phone] Nh dical NAL [address] [place] [address] 2022-06-12 2022-06-12 Telephone [facility] 1.2.275.411 [id number] Univers 00:00:00 00:00:00 Elle ANDERSONHIRA 350.1.13.10 ity of [place] 4.2.7.2.686 [place] [id number] Nh dical NAL [address] [place] [address] 2022-06-10 2022-06-10 Patient Doctor [facility] 1.2.840.114 [id number] Univers 00:00:00 00:00:00 Secure Msg Unassigned, HEALTH 350.1.13.10 [place] 4.2.7.2.686 [place] as DONTE?BLEA [id number] Nh dical KNEY [address] [place] [address] OFFICE BUILDING 2022-06-09 2022-06-09 Emergency X AUFDERHEIDE [facility] ERT [id number] Univers 08:29:00 10:11:00 , ERIC itleonard of [facility] 2022-06-09 2022-06-09 Emergency Aufderide [facility] 1.2.840.114 [id number] Univers 08:29:00 10:11:00 , Eric ANDERSONHIRA 350.1.13.10 i ty of G[place] 4.2.7.2.686 [place] [id number] [facility] [address] [place] 2022-06-09 2022-06-09 Telephone [facility] 1.2.840.114 [id number] Univers 00:00:00 00:00:00 [facility] HEALTH 350.1.13.10 it y of [place] 4.2.7.2.686 Henry as DONTE?BLEA [id number] [address] OFFICE [facility] 2022-06-09 2022-06-09 Refill [facility] 1.2.840.114 [id number] Univers 00:00:00 00:00:00 [facility] HEALTH 350.1.13.10 it y of [place] 4.2.7.2.686 Henry as DONTE?BLEA [id number] [address] OFFICE [facility] 2022-06-08 2022-06-08 Orders Doctor JUAN 1.2.840.114 [id number] Univers 00:00:00 00:00:00 Only Unassigned, JARROD 350.1.13.10 [place] [facility] 4.2.7.2.686 Henry as [id number] [facility] [address] [place] 2022-06-05 2022-06-05 Outpatient R CARLOS, [facility] [id number] Univers 11:00:00 11:00:00 ELLE ellis of [facility] 2022-06-05 2022-06-05 Telephone [facility] 1.2.840.114 [id number] Univers 00:00:00 00:00:00 [facility] 350.1.13.10 it y of [place] 4.2.7.2.686 Henry as DONTE?BLEA [id number] Nh dical NGZOI [address] [place] MEDICAL OFFICE [facility] 2022-06-04 2022-06-04 Telephone [facility] 1.2.840.114 [id number] Univers 00:00:00 00:00:00 [facility] 350.1.13.10 it y of [place] E[place]IN[place] 4.2.7.2.686 [place] as DONTE?BLEA [id number] Nh dical NGOZI 044 [facility] OFFICE [facility] 2022-06-04 2022-06-04 Patient [facility] 1.2.840.114 [id number] Univers 00:00:00 00:00:00 Secure Msg [facility] 350.1.13.10 ity of [place] 4.2.7.2.686 Henry as DONTE?BLEA [id number] Nh dicdhruv [address] OFFICE [facility] 2022-06-03 2022-06-03 [facility] [id number] Univers 10:40:13 23:59:00 TEO ity of [facility] 2022-06-03 2022-06-03 [facility] 1.2.840.114 [id number] Univers 10:40:00 23:59:00 Encounter Teo JOSELINE 350.1.13.10 ity of [facility] 4.2.7.2.686 [place] C[place] [id number] [facility] [address] [place] 2022-06-03 2022-06-03 Patient Doctor INRIVERA 1.2.840.114 [id number] Univers 00:00:00 00:00:00 Secure Msg Unassigned, JOSELINE 350.1.13.10 [place] 4.2.7.2.686 [place] [facility] [id number] Nh dical [facility] 134 [facility] 2022-06-03 2022-06-03 Orders Doctor JUAN 1.2.840.114 [id number] Univers 00:00:00 00:00:00 Only Unassigned, JARROD 350.1.13.10 [place] [facility] 4.2.7.2.686 Henry as [id number] [facility] [address] 2022-05-25 2022-05-25 Patient [facility] 1.2.840.114 [id number] Univers 00:00:00 00:00:00 Secure Msg [facility] 350.1.13.10 ity of [place]st[place] 4.2.7.2.686 Henry as DONTE?BLEA [id number] Nh dical KNEY [address] [place] MEDICAL OFFICE BUILDING 2022-05-25 2022-05-25 Telephone [facility] 1.2.840.114 [id number] Univers 00:00:00 00:00:00 [facility] 350.1.13.10 it y of [place] 4.2.7.2.686 Henry as DONTE?BLEA [id number] Nh dical [facility] 044 [facility] OFFICE [facility] 2022-05-04 2022-05-04 Orders Doctor JUAN 1.2.840.114 [id number] Univers 00:00:00 00:00:00 Only Unassigned, JARROD 350.1.13.10 [place] [facility] 4.2.7.2.686 Henry as [id number] [address] 2022-04-30 2022-04-30 Outpatient R NATALY [facility] [id number] Univers 09:45:00 10:48:21 TEO ellis of [facility] 2022-04-30 2022-04-30 Office [facility] 1.2.930.970 [id number] Univers 09:45:00 10:48:21 Visit Teo TREVIZO 350.1.13.10 i ty of [place] 4.2.7.2.686 [place] PROFESS[place] [id number] Nh dicdhruv [facility] 134 [facility] 2022-04-30 2022-04-30 Outpatient R NATALY [facility] [id number] Univers 09:45:00 09:45:00 TEO ellis of [facility] 2022-04-29 2022-04-29 Refill [facility] 1.2.840.114 [id number] Univers 00:00:00 00:00:00 [facility] 350.1.13.10 it y of [place] 4.2.7.2.686 Henry as DONTE?BLEA [id number] [facility] [address]RIST[address] MEDICAL OFFICE [facility] 2022-04-28 2022-04-28 Telephone [facility] 1.2.840.114 [id number] Univers 00:00:00 00:00:00 [facility] 350.1.13.10 it y of [place] 4.2.7.2.686 Henry as DONTE?BLEA [id number] [address] OFFICE [facility] 2022-04-24 2022-04-24 [facility] 1.2.840.114 [id number] Univers 00:00:00 00:00:00 [facility] 350.1.13.10 it y of [place] 4.2.7.2.686 Henry as DONTE?BLEA [id number] [address] OFFICE [facility] 2022-04-24 2022-04-24 [facility] 1.2.840.114 [id number] Univers 00:00:00 00:00:00 [facility] 350.1.13.10 it y of [place] 4.2.7.2.686 Henry as DONTE?BLEA [id number] [address] OFFICE [facility] 2022-04-24 2022-04-24 Patient [facility] 1.2.840.114 [id number] Univers 00:00:00 00:00:00 Secure Ms Emilia [facility] 350.1.13.10 ity of [place] 4.2.7.2.686 Henry as DONTE?BLEA [id number] [address] OFFICE [facility] 2022-04-24 2022-04-24 [facility] 1.2.840.114 [id number] Univers 00:00:00 00:00:00 [facility] 350.1.13.10 it y of [place] 4.2.7.2.686 Henry as DONTE?BLEA [id number] [address] OFFICE [facility] 2022-04-16 2022-04-16 Telephone [facility] 1.2.840.114 [id number] Univers 00:00:00 00:00:00 [facility] HEALTH 350.1.13.10 it y of [place] 4.2.7.2.686 Henry as DONTE?BLEA [id number] Nh dread MELVIN [address] [place] [address] OFFICE [facility] 2022-04-14 2022-04-14 [facility] 1.2.840.114 [id number] Univers 00:00:00 00:00:00 Arik HEALTH 350.1.13.10 it y of [place] 4.2.7.2.686 Henry as DONTE?BLEA [id number] Nh dread MELVIN [address] [place] [address] 2022-04-06 2022-04-06 [facility] 1.2.840.114 [id number] Univers 00:00:00 00:00:00 [facility] 350.1.13.10 it y of [place] 4.2.7.2.686 Henry as DONTE?BLEA [id number] Nh dread MELVIN [address] [place] [address] 2022-04-06 2022-04-06 [facility] 1.2.840.114 [id number] Univers 00:00:00 00:00:00 [facility] 350.1.13.10 it y of [place] 4.2.7.2.686 Henry as DONTE?BLEA [id number] Nh dread MELVIN [address] [place] [address] 2022-04-06 2022-04-06 [facility] 1.2.840.114 [id number] Univers 00:00:00 00:00:00 [facility] 350.1.13.10 it y of [place] 4.2.7.2.686 Henry as DONTE?BLEA [id number] Nh dread MELVIN [address] [place] [address] 2022-04-06 2022-04-06 [facility] 1.2.840.114 [id number] Univers 00:00:00 00:00:00 Arik HEALTH 350.1.13.10 it y of [place] 4.2.7.2.686 Henry as DONTE?BLEA [id number] [address] MEDICAL OFFICE [facility] 2022-04-03 2022-04-03 Orders Doctor JUAN 1.2.840.114 [id number] Univers 00:00:00 00:00:00 Only Unassigned, JARROD 350.1.13.10 [place] [facility] 4.2.7.2.686 Henry as [id number] [address] 2022-03-29 2022-03-29 [facility] 1.2.840.114 [id number] Univers 00:00:00 00:00:00 [facility] 350.1.13.10 it y of [place] 4.2.7.2.686 Henry as DONTE?BLEA [id number] [address] OFFICE [facility] 2022-03-21 2022-03-21 [facility] 1.2.840.114 [id number] Univers 00:00:00 00:00:00 [facility] 350.1.13.10 it y of [place] 4.2.7.2.686 Henry as DONTE?BLEA [id number] [address] OFFICE [facility] 2022-03-17 2022-03-17 Patient [facility] 1.2.840.114 [id number] Univers 00:00:00 00:00:00 Secure Msg Emilia [facility] 350.1.13.10 ity of [place] 4.2.7.2.686 Henry as DONTE?BLEA [id number] [address] OFFICE [facility] 2022-03-16 2022-03-16 [facility] 1.2.840.114 [id number] Univers 00:00:00 00:00:00 [facility] 350.1.13.10 it y of [place] 4.2.7.2.686 Henry as DONTE?BLEA [id number] [address] OFFICE [facility] 2022-03-16 2022-03-16 [facility] 1.2.840.114 [id number] Univers 00:00:00 00:00:00 [facility] 350.1.13.10 it y of [place] 4.2.7.2.686 Henry as DONTE?BLEA [id number] [facility] CHRISTINA[address] MEDICAL OFFICE [facility] 2022-03-16 2022-03-16 Patient [facility] 1.2.840.114 [id number] Univers 00:00:00 00:00:00 Secure Msg [facility] 350.1.13.10 ity of [place] 4.2.7.2.686 Henry as DONTE?BLEA [id number] [address] OFFICE [facility] 2022-03-13 2022-03-13 Patient [facility] 1.2.840.114 [id number] Univers 00:00:00 00:00:00 Secure Msg [facility] [id number] ity of [place] [id number] Henry as DONTE?BLEA [phone] [address] OFFICE [facility] 2022-03-13 2022-03-13 Telephone [facility] 1.2.840.114 [id number] Univers 00:00:00 00:00:00 [facility] [id number] it y of [place] [id number] Henry as DONTE?BLEA [id number] [address] OFFICE [facility] 2022-03-13 2022-03-13 Refill [facility] 1.2.840.114 [id number] Univers 00:00:00 00:00:00 [facility] [id number] it y of [place] [id number] Henry as DONTE?BLEA [phone] [address] OFFICE [facility] 2022-03-11 2022-03-11 JUAN Jackson 1.2.840.114 [id number] Univers 00:00:00 00:00:00 (Out) Helen JARROD 350.1.13.10 it y of HOSPITAL [id number] Henry as [phone] [address] 2022-03-10 2022-03-10 Emergency X [facility] ERT [id number] Univers 17:24:00 23:18:00 KEITH itleonard of [facility] 2022-03-10 2022-03-10 Emergency Darryn Owusu [facility] 1.2.840. 114 [id number] Univers 17:24:00 23:18:00 Keith Yi 350.1.13.10 [facility] 4.2.7.2.686 [place] [phone] [place] [id number] [place] 2022-03-10 2022-03-10 [facility] 1.2.840.114 [id number] Univers 00:00:00 00:00:00 [facility] 350.1.13.10 it y of [place] 4.2.7.2.686 Henry as DONTE?BLEA [id number] [address] MEDICAL OFFICE [facility] 2022-02-23 2022-02-23 [facility] 1.2.840.114 [id number] Univers 00:00:00 00:00:00 [facility] 350.1.13.10 it y of [place] 4.2.7.2.686 Henry as DONTE?BLEA [id number] [address] OFFICE [facility] 2022-01-27 2022-01-27 Outpatient [facility] [id number] Univers 11:30:00 12:50:55 ARIK itleonard [facility] 2022-01-27 2022-01-27 Office [facility] 1.2.840.114 [id number] Univers 11:30:00 12:50:55 Visit [facility] 350.1.13.10 it y of [place] 4.2.7.2.686 Henry as DONTE?BLEA [id number] [address] MEDICAL OFFICE [facility] 2022-01-27 2022-01-27 Orders Doctor MARTINEZ 1.2.840.114 [id number] Univers 00:00:00 00:00:00 Only Unassigned, JARROD 350.1.13.10 ity of [place] [facility] 4.2.7.2.686 Henry as [phone] [address] 2022-01-26 2022-01-26 Outpatient R [facility] [id number] Univers 13:00:00 13:00:00 ity of [facility] 2022-01-26 2022-01-26 [facility] 1.2.840.114 [id number] Univers 00:00:00 00:00:00 Secure Msg Arik [place] 350.1.13.10 ity of [place] [facility] 4.2.7.2.[place] [phone] Nh dic[address] 2022-01-26 2022-01-26 [facility]phone [facility] 1.2.840.114 [id number] Univers 00:00:00 00:00:00 Arik HEALTH 350.1.13.10 it y of [place] 4.2.7.2.686 Henry as DONTE?BLEA [id number] [address] OFFICE [facility] 2022-01-23 2022-01-23 Refill [facility] 1.2.840.114 [id number] Univers 00:00:00 00:00:00 Arik HEALTH 350.1.13.10 it y of [place] 4.2.7.2.686 Henry as DONTE?BLEA [id number] [address] OFFICE [facility] 2022-01-22 2022-01-22 Patient [facility] 1.2.840.114 [id number] Univers 00:00:00 00:00:00 Secure Msg Arik [place] 350.1.13.10 ity of [place] [facility] 4.2.7.2.[place] [id number] Nh dic[address] 2022-01-20 2022-01-20 [facility] 1.2.840.114 [id number] Univers 00:00:00 00:00:00 Arik HEALTH 350.1.13.10 it y of [place] 4.2.7.2.686 Henry as DONTE?BLEA [id number] Nh dic[address] MEDICAL OFFICE [facility] 2022-01-19 2022-01-19 [facility] 1.2.840.114 [id number] Univers 00:00:00 00:00:00 Arik HEALTH 350.1.13.10 it y of [place] 4.2.7.2.686 Henry as DONTE?BLEA [id number] [address] OFFICE [facility] 2022-01-19 2022-01-19 Patient [facility] 1.2.840.114 [id number] Univers 00:00:00 00:00:00 Secure Msg Arik HEALTH 350.1.13.10 ity of [place] 4.2.7.2.686 Henry as DONTE?BLEA [id number] [address] OFFICE [facility] 2022-01-08 2022-01-08 Telephone [facility] 1.2.548.578 [id number] Univers 00:00:00 00:00:00 Onel HEALTH 350.1.13.10 it y of [place] 4.2.7.2.686 Henry as DONTE?BLEA [id number] [address] OFFICE [facility] 2022-01-08 2022-01-08 Orders Doctor JUAN 1.2.840.114 [id number] Univers 00:00:00 00:00:00 Only Unassigned, JARROD 350.1.13.10 it[place] [facility] 4.2.7.2.686 Henry as [id number] [address] 2021-12-23 2021-12-23 Telephone [facility] 1.2.840.114 [id number] Univers 00:00:00 00:00:00 Arik HEALTH 350.1.13.10 it y of [place] 4.2.7.2.686 Henry as DONTE?BLEA [id number] [address] OFFICE [facility] 2021-12-23 2021-12-23 Orders Doctor JUAN 1.2.840.114 [id number] Univers 00:00:00 00:00:00 Only Unassigned, JARROD 350.1.13.10 ity of [place] [facility] 4.2.7.2.686 Henry as [id number] [address] 2021-12-22 2021-12-22 Refill [facility] 1.2.840.114 [id number] Univers 00:00:00 00:00:00 [facility] HEALTH 350.1.13.10 it y of [place] 4.2.7.2.686 Henry as DONTE?BLEA [phone] [address] MEDICAL OFFICE [facility] 2021-12-22 2021-12-22 Telephone [facility] 1.2.840.114 [id number] Univers 00:00:00 00:00:00 [facility] 350.1.13.10 it y of [place] 4.2.7.2.686 Henry as DONTE?BLEA [id number] [address] OFFICE [facility] 2021-12-22 2021-12-22 Patient [facility] 1.2.840.114 [id number] Univers 00:00:00 00:00:00 Secure Msg [facility] 350.1.13.10 ity of [place] 4.2.7.2.686 Henry as DONTE?BLEA [phone] [address] OFFICE [facility] 2021-12-04 2021-12-04 [facility] 1.2.840.114 [id number] Univers 00:00:00 00:00:00 [facility] 350.1.13.10 it y of [place] 4.2.7.2.686 Henry as DONTE?BLEA [id number] [address] OFFICE [facility] 2021-11-26 2021-11-26 Outpatient R KIZZY SANTOS [facility] [id number] Univers 13:20:00 16:16:11 KIZZY SANTOS it y of [facility] 2021-11-26 2021-11-26 Office Kizzy Santos [facility] 1.2.840.114 [id number] Univers 13:20:00 16:16:11 Visit [facility] 350.1.13.10 ity of [place] 4.2.7.2.686 [place] [id number] [facility] AND [address] [facility] 2021-11-26 2021-11-26 Outpatient R KIZZY SANTOS [facility] [id number] Univers 13:20:00 16:16:11 KIZZY SANTOS y of [facility] 2021-11-26 2021-11-26 Outpatient R KIZZY SANTOS [facility] [id number] Univers 13:20:00 13:20:00 KIZZY SANTOS y [facility] 2021-11-26 2021-11-26 Refill [facility] 1.2.840.114 [id number] Univers 00:00:00 00:00:00 Arik HEALTH 350.1.13.10 it y of [place] 4.2.7.2.686 Henry as DONTE?BLEA [id number] [address] MEDICAL OFFICE [facility] 2021-11-25 2021-11-25 Emergency [facility] ERT [id number] Univers 14:54:00 15:38:00 CHRISTWAYNEER it y [facility] 2021-11-25 2021-11-25 [facility] 1.2.309.731 [id number] Univers 14:54:00 15:38:00 Christwayneer JOSELINE 350.1.13.10 ity of [place] 4.2.7.2.686 [facility] [phone] [place] 889094 [place] 2021-11-25 2021-11-25 Telephone [facility] 1.2.840.114 [id number] Univers 00:00:00 00:00:00 [facility] HEALTH 350.1.13.10 it y of [place] 4.2.7.2.686 Henry as DONTE?BLEA [id number] [address] MEDICAL OFFICE [facility] 2021-11-25 2021-11-25 Patient [facility] 1.2.840.114 [id number] Univers 00:00:00 00:00:00 Secure Msg Arik HEALTH 350.1.13.10 ity of [place] 4.2.7.2.686 Henry as DONTE?BLEA [phone] Me dic[address] OFFICE [facility] 2021-11-18 2021-11-18 Outpatient R DEMAR [facility] [id number] Univers 14:00:00 14:24:37 ARIK [facility] 2021-11-18 2021-11-18 Office [facility] 1.2.840.114 [id number] Univers 14:00:00 14:15:00 Visit [facility] 350.1.13.10 it y of [place] 4.2.7.2.686 Henry as DONTE?BLEA [phone] [address] OFFICE [facility] 2021-11-18 2021-11-18 Outpatient [facility] [id number] Univers 14:00:00 14:00:00 AIRK [facility] 2021-11-11 2021-11-11 Outpatient R SOLOMON [facility] [id number] Univers 13:30:00 13:30:00 OLIVAFormerly [facility] 2021-11-03 2021-11-03 [facility] 1.2.840.114 [id number] Univers 00:00:00 00:00:00 [facility] 350.1.13.10 it y of [place] 4.2.7.2.686 Henry as DONTE?BLEA [id number] [address] OFFICE [facility] 2021-10-27 2021-10-27 Patient [facility] 1.2.840.114 [id number] Univers 00:00:00 00:00:00 Secure Msg Emilia [facility] 350.1.13.10 ity of [place] 4.2.7.2.686 Henry as DONTE?BLEA [id number] [address] OFFICE [facility] 2021-10-15 2021-10-15 [facility] 1.2.840.114 [id number] Univers 00:00:00 00:00:00 Arik [place] 350.1.13.10 i ty of [place] 4.2.7.2.[place] [id number] [address] 2021-10-142021-10-14 Outpatient R SOLOMON [facility] [id number] Univers 14:00:00 14:00:00 OLIVA ity [facility] 2021-10-09 2021-10-09 [facility] 1.2.840.114 [id number] Univers 00:00:00 00:00:00 [facility] 350.1.13.10 it y of [place] 4.2.7.2.686 Henry as DONTE?BLEA [id number] [address] OFFICE [facility] 2021-10-08 2021-10-08 [facility] 1.2.840.114 [id number] Univers 00:00:00 00:00:00 [facility] 350.1.13.10 it y of [place] 4.2.7.2.686 Henry as DONTE?BLEA [id number] [address] OFFICE [facility] 2021-10-07 2021-10-07 [facility] 1.2.840.114 [id number] Univers 00:00:00 00:00:00 [facility] 350.1.13.10 it y of [place] 4.2.7.2.686 Henry as DONTE?BLEA [id number] [address] OFFICE [facility] 2021-10-02 2021-10-02 [facility] 1.2.840.114 [id number] Univers 00:00:00 00:00:00 [facility] 350.1.13.10 it y of [place] 4.2.7.2.686 Henry as DONTE?BLEA [id number] [address] OFFICE [facility] 2021-09-18 2021-09-18 Outpatient R SARAHI [facility] [id number] Univers 13:13:16 23:59:00 CARMEN ellis [facility] 2021-09-18 2021-09-18 Office [facility] 1.2.840.114 [id number] Univers 14:30:00 15:00:00 Visit [facility] 350.1.13.10 it y of [place] 4.2.7.2.686 Henry as DONTE?BLEA [phone] Nh dread MELVIN [address] [facility] OFFICE [facility] 2021-09-18 2021-09-18 Outpatient R SARAHI [facility] [id number] Univers 14:30:00 14:03:55 CARMEN ity [facility] 2021-09-18 2021-09-18 Outpatient R SARAHI [facility] [id number] Univers 14:30:00 14:03:55 CARMEN itleonard [facility] 2021-09-18 2021-09-18 Outpatient R AMIE [facility] [id number] Univers 11:00:00 11:00:00 OLYA conradoleonard [facility] 2021-09-18 2021-09-18 Outpatient R AMIE [facility] [id number] Univers 11:00:00 11:00:00 [facility] 2021-09-17 2021-09-17 Patient [facility] 1.2.840.114 [id number] Univers 00:00:00 00:00:00 [facility] 350.1.13.10 ity of [place] 4.2.7.2.686 Henry as DONTE?BLEA [phone] Nh dread MELVIN 044 [facility] 2021-09-12 2021-09-12 [facility] 1.2.840.114 [id number] Univers 00:00:00 00:00:00 [facility] 350.1.13.10 it y of [place] 4.2.7.2.686 Henry as DONTE?BLEA [id number] Nh dread MELVIN 044 [facility] OFFICE [facility] 2021-09-11 2021-09-11 Outpatient R SOLOMON [facility] [id number] Univers 14:00:00 14:00:00 OLIVA ellis [facility] 2021-09-11 2021-09-11 Outpatient R SOLOMON [facility] [id number] Univers 14:00:00 14:00:00 [facility] 2021-09-11 2021-09-11 [facility] 1.2.840.114 [id number] Univers 00:00:00 00:00:00 [facility] 350.1.13.10 it y of [place] 4.2.7.2.686 Henry as DONTE?BLEA [phone] [facility] 0[address] [facility] OFFICE [facility] 2021-09-11 2021-09-11 [facility] 1.2.840.114 [id number] Univers 00:00:00 00:00:00 [facility] 350.1.13.10 it y of [place] 4.2.7.2.686 Henry as DONTE?BLEA [phone] [address] 2021-09-10 2021-09-10 Outpatient Campos [facility] [id number] Univers 15:00:00 15:00:00 [facility] 2021-09-10 2021-09-10 Outpatient Campos HOLLOWAY [facility] [id number] Univers 15:00:00 15:00:00 [facility] 2021-09-03 2021-09-03 Outpatient Campos INGRAM [facility] [id number] Univers 13:30:00 13:30:00 [facility] 2021-08-26 2021-08-26 Vaccine Specialist Lab, Ang - Db [facility] 1.2.840.1 14 [id number] Univers 14:00:00 14:15:00 Visit Arik Benz [facility] 350.1.13 .10 ity of [place] 4.2.7.2.686 Henry as DONTE?BLEA [phone] [facility] [address] [facility] OFFICE [facility] 2021-08-26 2021-08-26 Office [facility] 1.2.840.114 [id number] Univers 13:15:00 14:12:01 Visit [facility] 350.1.13.10 it y of [place] 4.2.7.2.686 Henry as DONTE?BLEA [id number] [address] OFFICE [facility] 2021-08-26 2021-08-26 Outpatient R DEMAR [facility] [id number] Univers 13:15:00 14:12:01 ARIK [facility] 2021-08-26 2021-08-26 Outpatient Campos BRICEÑOGAGE [facility] [id number] Univers 14:00:00 14:00:00 ARIK [facility] 2021-08-26 2021-08-26 Outpatient Campos BRICEÑOGAGE [facility] [id number] Univers 13:15:00 13:15:00 [facility] 2021-08-21 2021-08-21 Patient [facility] 1.2.840.114 [id number] Univers 00:00:00 00:00:00 Secure Msg Emilia HEALTH 350.1.13.10 ity of [place] 4.2.7.2.686 Henry as DONTE?BLEA [phone] [address] MEDICAL OFFICE [facility] 2021-08-19 2021-08-19 Outpatient Campos [facility] [id number] Univers 08:00:00 08:00:00 [facility] 2021-08-19 2021-08-19 Refill Doctor [facility] 1.2.840.114 [id number] Univers 00:00:00 00:00:00 Unassigned, HEALTH 350.1.13.10 it[place] 4.2.7.2.686 Henry as DONTE?BLEA [id number] [address] MEDICAL OFFICE [facility] 2021-08-19 2021-08-19 Telephone Demar [facility] .2.840.114 [id number] Univers 00:00:00 00:00:00 [facility] 350.1.13.10 it y of [place] 4.2.7.2.686 Henry as DONTE?BLEA [id number] [address] OFFICE [facility] 2021-08-11 2021-08-11 Outpatient Campos BENZ [facility] [id number] Univers 15:00:00 15:00:00 ARIK [facility] 2021-08-08 2021-08-08 Outpatient Campos [facility] [id number] Univers 15:00:00 15:00:00 [facility] 2021-07-29 2021-07-29 Outpatient Campos BENZ [facility] [id number] Univers 13:00:00 13:00:00 [facility] 2021-07-21 2021-07-21 [facility] 1.2.840.114 [id number] Univers 00:00:00 00:00:00 [facility] 350.1.13.10 it y of [place] 4.2.7.2.686 Henry as DONTE?BLEA [phone] Nh dread PRADHAN[address] MEDICAL OFFICE BUILDING 2021-07-09 2021-07-09 Outpatient Campos BENZ [facility] [id number] Univers 13:00:00 13:00:00 [facility] 2021-07-09 2021-07-09 Outpatient Campos BENZ [facility] [id number] Univers 13:00:00 13:00:00 [facility] 2021-07-09 2021-07-09 Outpatient Campos BRICEÑOGAGE [facility] [id number] Univers 13:00:00 13:00:00 [facility] 2021-07-09 2021-07-09 Outpatient Campos [facility] [id number] Univers 13:00:00 13:00:00 [facility] 2021-06-24 2021-06-24 Orders Doctor MARTINEZ 1.2.840.114 [id number] Univers 00:00:00 00:00:00 Only Unassigned, JARROD 350.1.13.10 it[place] [facility] 4.2.7.2.686 Henry as [id number] [address] 2021-05-22 2021-05-22 [place] [facility] 1.2.840.114 [id number] Univers 00:00:00 00:00:00 [facility] 350.1.13.10 it y of [place] 4.2.7.2.686 Henry as PROFESSIO [phone] Nh dread COTE [address] [place] [address] OFFICE BUILDING ONE 2021-05-17 2021-05-17 [facility] 1.2.840.114 [id number] Univers 00:00:00 00:00:00 [facility] 350.1.13.10 it y of [place] 4.2.7.2.686 Henry as PROFESSIO [phone] [facility] NAL [address] [place] [address] OFFICE BUILDING ONE 2021-05-13 2021-05-13 Patient [facility] 1.2.840.114 [id number] Univers 00:00:00 00:00:00 Secure Msg [facility] 350.1.13.10 ity of [place] 4.2.7.2.686 Henry as DONTE?BLEA [phone] Nh dicin KNEY [address] [place] [address] OFFICE [facility] 2021-05-09 2021-05-09 Transition KALYANI Rosenberg 1.2.840.114 [id number] Univers 00:00:00 00:00:00 of Care Trinidad WILLS 350.1.13.10 i ty of [place]2.7.2.[place] [id number] [address] 2021-05-04 2021-05-08 Inpatient [facility] MARGIE [id number] Univers 19:48:00 14:30:00 [facility] 2021-05-04 2021-05-08 [facility] Sean Meléndez 1.2.840. 114 [id number] Univers 19:48:00 14:30:00 [facility] 350.1.13 .10 ity of [place] 4.2.7.2.686 Yoko Cheema [id number] [place] 415539 [place] 2021-05-04 2021-05-08 Inpatient [facility] MARGIE [id number] Univers 19:48:00 14:30:00 YOKO ellis [facility] 2021-05-07 2021-05-07 Outpatient R DEMAR [facility] [id number] Univers 15:00:00 15:00:00 ARIK [facility] 2021-05-01 2021-05-01 Outpatient R SOLOMON [facility] [id number] Univers 09:30:00 09:30:00 OLIVA [facility] 2021-04-30 2021-04-30 Patient Juma Mcdaniels [facility] 1.2.840.114 [id number] Univers 00:00:00 00:00:00 Secure Msg JOSE 350.1.13.10 ity of [place].2.[place] HEALTH [phone] [address] 2021-04-29 2021-04-29 Outpatient R JUMA MCDANIELS [facility] [id number] Univers 16:00:00 16:00:00 [facility] 2021-04-25 2021-04-25 Outpatient R JUMA MCDANIELS [facility] [id number] Univers 14:00:00 14:00:00 [facility] 2021-04-25 2021-04-25 Outpatient [facility] [id number] Univers 13:00:00 13:00:00 ARIK [facility] 2021-04-24 2021-04-24 [facility] 1.2.840.114 [id number] Univers 00:00:00 00:00:00 Secure Msg Arik [facility] 350.1.13.10 ity of [place] 4.2.7.2.686 Henry as DONTE?BLEA [phone] Nh nancy[address] OFFICE [facility] 2021-04-24 2021-04-24 [place] [facility] 1.2.840.114 [id number] Univers 00:00:00 00:00:00 Arik HEALTH 350.1.13.10 it y of [place] 4.2.7.2.686 Henry as DONTE?BLEA [id number] [address] 2021-04-09 2021-04-09 Outpatient Davar_P VFP VFP [id number] [facility] 03:51:00 03:51:00 [id number] Family Practic e 2021-04-08 2021-04-08 Patient [facility] 1.2.840.114 [id number] Univers 00:00:00 00:00:00 Secure Msg [facility] 350.1.13.10 ity of [place] 4.2.7.2.686 Henry as DONTE?BLEA [phone] Nh dread PRADHAN[address] OFFICE [facility] 2021-04-02 2021-04-02 Outpatient [facility] [id number] Univers 14:00:00 14:29:25 [facility] 2021-04-02 2021-04-02 Office [facility] 1.2.840.114 [id number] Univers 14:00:00 14:15:00 Visit [facility] 350.1.13.10 it y of [place] 4.2.7.2.686 Henry as DONTE?BLEA [phone] [address] 2021-04-02 2021-04-02 Outpatient [facility] [id number] Univers 14:00:00 14:00:00 [facility] 2021-04-02 2021-04-02 Outpatient [facility] [id number] Univers 14:00:00 14:00:00 [facility] 2021-04-02 2021-04-02 Outpatient [facility] [id number] Univers 14:00:00 14:00:00 [facility] 2021-04-01 2021-04-01 [facility] 1.2.840.114 [id number] Univers 00:00:00 00:00:00 Oliva TREVIZO 350.1.13.10 i ty of [place].7.2.[place] [phone] Nh nancy[address] 2021-03-30 2021-03-30 Nurse JUAN Darnell 1.2.840.114 [id number] Univers 00:00:00 00:00:00 Triage Dakotah GARAY 350.1.13.10 ity of [facility] 4.2.7.2.686 Henry as [phone] [facility] 019 [place] 2021-03-28 2021-03-28 Outpatient R [facility] [id number] Univers 10:30:00 10:30:00 ity of [facility] 2021-03-27 2021-03-27 Outpatient R [facility] [id number] Univers 15:00:00 15:00:00 ity of [facility] 2021-03-27 2021-03-27 [facility] 1.2.840.114 [id number] Univers 00:00:00 00:00:00 Secure Msg Elle TREVIZO 350.1.13.10 it[facility] 4.2.7.2.[place] [phone] Nh dical NAL 134 [facility] 2021-03-27 2021-03-27 [facility] 1.2.840.114 [id number] Univers 00:00:00 00:00:00 Management Elle TREVIZO 350.1.13.10 it[place] of [place] [phone] Nh dical NAL 134 [facility] 2021-03-25 2021-03-25 Outpatient R [facility] [id number] Univers 15:15:00 15:15:00 ELLE ity [facility] 2021-03-23 2021-03-24 Inpatient X [facility] [id number] Univers 06:56:00 17:35:00 ELLE ity [facility] 2021-03-23 2021-03-24 [facility] 1.2.840.114 [id number] Univers 06:56:00 17:35:00 Encounter Elle TREVIZO 350.1.13.10 [facility] [place] [phone] [facility] [address] [place] 2021-03-23 2021-03-23 Anesthesia [facility] 1.2.840.114 [id number] Univers 12:00:00 19:29:00 Event Subhash TREVIZO 350.1.13.10 i ty [place] [id number] [facility] [address] [place] 2021-03-23 2021-03-23 Inpatient X ADUM, [facility] [id number] Univers 06:56:00 06:56:00 ELLE ellis [facility] 2021-03-23 2021-03-23 Nurse JUAN Cortes 1.2.840.114 [id number] Univers 00:00:00 00:00:00 Triage Renetta Ochoa JARROD 350.1.13.10 it y of HOSPITAL 4.2.7.2.686 [place] as [id number] [facility] [address] [place] 2021-03-23 2021-03-23 Orders Doctor JUAN 1.2.840.114 [id number] Univers 00:00:00 00:00:00 Only Unassigned, JARROD 350.1.13.10 ity of [place] [facility] 4.2.7.2.686 [place] [id number] [facility] [address] [place] 2021-03-14 2021-03-14 Outpatient R ADUM, [facility] [id number] Univers 15:30:00 16:54:39 ELLE ity [facility] 2021-03-14 2021-03-14 Routine Ad, [facility] 1.2.840.114 [id number] Univers 15:30:00 16:54:39 Elle Maria JOSELINE 350.1.13.10 ity of [place] [id number] Nh dical [facility] 134 [facility] 2021-03-14 2021-03-14 Outpatient R ADUM, [facility] [id number] Univers 15:30:00 15:30:00 ELLE ity [facility] 2021-03-12 2021-03-12 Outpatient P [facility] [id number] Univers 15:00:00 15:00:00 ity [facility] 2021-03-12 2021-03-12 Patient Doctor JUAN 1.2.840.114 [id number] Univers 00:00:00 00:00:00 Secure Msg Unassigned, JARROD 350.1.13.10 ity of [facility] 4.2.7.2.686 [place] as [phone] [facility] [address] [place] 2021-03-11 2021-03-11 Outpatient R DEMAR [facility] [id number] Univers 13:15:00 13:15:00 ARIK ellis [facility] 2021-03-11 2021-03-11 Outpatient R DEMAR [facility] [id number] Univers 13:15:00 13:15:00 ARIK leonard [facility] 2021-03-11 2021-03-11 [facility] 1.2.840.114 [id number] Univers 10:30:59 10:45:59 Visit [facility] 350.1.13.10 it y of [place] 4.2.7.2.686 [place] as DONTE?BLEA [phone] Nh dicdhruv KNEY [address] [place] MEDICAL OFFICE [facility] 2021-03-09 2021-03-09 Outpatient X JUMA MCDANIELS [facility] [id number] Univers 09:27:00 12:30:00 ity of [facility] 2021-03-09 2021-03-09 Emergency Juma Mcdaniels [facility] 1.2.840.114 [id number] Univers 09:27:00 12:30:00 JOSELINE 350.1.13.10 i ty of [place]2.7.2.686 [place] [id number] [facility] [address] [place] 2021-03-09 2021-03-09 Nurse JUAN Cortes 1.2.840.114 [id number] Univers 00:00:00 00:00:00 Triage Renetta GARAY 350.1.13.10 it y of [facility] 4.2.7.2.686 [place] as [phone] [facility] [address] [place] 2021-03-07 2021-03-07 Routine Adum, [facility] 1.2.840.114 [id number] Univers 15:34:54 16:24:15 Elle TREVIZO 350.1.13.10 ity of Visit [place].2.7.2.686 [place] [facility] [phone] Nh dical NAL 134 [facility] 2021-03-07 2021-03-07 Outpatient R [facility] [id number] Univers 15:30:00 16:24:15 ELLE ity of [facility] 2021-03-07 2021-03-07 [facility] 1.2.840.114 [id number] Univers 00:00:00 00:00:00 [facility] 350.1.13.10 it y of [place] 4.2.7.2.686 [place] as DONTE?BLEA [phone] [facility] 044 [facility] OFFICE [facility] 2021-03-06 2021-03-06 [facility] 1.2.840.114 [id number] Univers 00:00:00 00:00:00 Arik HEALTH 350.1.13.10 it y of [place] 4.2.7.2.686 [place] as DONTE?BLEA [phone] [address] 2021-03-04 2021-03-04 Outpatient P CHLOE REESE [facility] [id number] Univers 00:27:00 14:38:00 ity of [facility] 2021-03-04 2021-03-04 [facility] Chloe Reese [facility] 1.2.840.114 [id number] Univers 00:27:00 14:38:00 Encounter Cam [place] 350.1.13.10 ity of [facility] 4.2.7.2.686 [place] CAMPUS [id number] [facility] [address] [place] 2021-02-27 2021-02-27 [facility] 1.2.840.114 [id number] Univers 00:00:00 00:00:00 Elle L [place] 350.1.13.10 ity of [place].2.7.2.686 [place] PROFESS[place] [phone] Nh dicdhruv [facility] 134 [facility] 2021-02-27 2021-02-27 [facility] 1.2.840.114 [id number] Univers 00:00:00 00:00:00 Elle L [place] 350.1.13.10 ity of [place] 4.2.7.2.686 [place] PROFESS[place] [phone] Nh dical [facility] 134 [facility] 2021-02-27 2021-02-27 Refill [facility] 1.2.840.114 [id number] Univers 00:00:00 00:00:00 Elle Maria [place] 350.1.13.10 ity of [place] 4.2.7.2.686 [place] PROFESS[place] [phone] Nh dic[address] 2021-02-26 2021-02-26 Outpatient P [facility] [id number] Univers 12:08:00 18:00:00 ELLE ity of [facility] 2021-02-26 2021-02-26 [facility] 1.2.840.114 [id number] Univers 12:08:00 18:00:00 Encounter Elle Candace [place] 350.1.13.10 ity of [place] 4.2.7.2.686 [place] [phone] [facility] [address] [place] 2021-02-26 2021-02-26 Outpatient R [facility] [id number] Univers 16:00:00 16:00:00 ELLE ity of [facility] 2021-02-26 2021-02-26 [facility] 1.2.687.623 [id number] Univers 00:00:00 00:00:00 Elle Candace [place] 350.1.13.10 ity [facility] 4.2.7.2.686 [place] PROFESS[place] [phone] Nh dic[address] 2021-02-14 2021-02-14 Telephone [facility] 1.2.840.114 [id number] Univers 00:00:00 00:00:00 [facility] 350.1.13.10 it y of [place] 4.2.7.2.686 [place] as DONTE?BLEA [phone] Nh dical [address] MEDICAL OFFICE [facility] 2021-02-07 2021-02-07 [facility] 1.2.840.114 [id number] Univers 15:39:01 16:45:30 Elle L [place] 350.1.13.10 ity of Visit [place] 4.2.7.2.686 [place] PROFESS[place] [phone] [facility] 134 [facility] 2021-02-07 2021-02-07 Outpatient R AD, [facility] [id number] Univers 15:30:00 16:45:30 ELLE ellis [facility] 2021-02-06 2021-02-06 Outpatient R AD, [facility] [id number] Univers 16:00:00 16:00:00 ELLE itleonard [facility] 2021-02-04 2021-02-04 Telephone [facility] 1.2.897.602 [id number] Univers 00:00:00 00:00:00 Elle TREVIZO 350.1.13.10 ity of [facility] 4.2.7.2.686 [place] PROFESS[place] [phone] [address] 2021-02-03 2021-02-03 Vaccine Specialist Lab, [facility] 1.2.840.1 14 [id number] Univers 13:21:16 13:36:16 Visit Ad, Elle Maria HEALTH 350.1.13.10 ity of [place] 4.2.7.2.686 [place] as DONTE?BLEA [phone] [facility] Waldrondhruv [facility] 353 [facility] OFFICE [facility] 2021-02-03 2021-02-03 Outpatient R AD, [facility] [id number] Univers 13:30:00 13:30:00 ELLE ellis [facility] 2021-02-03 2021-02-03 Telephone [facility] 1.2.840.114 [id number] [facility] 00:00:00 00:00:00 [facility] 350.1.13.10 it y of [place] 4.2.7.2.686 [place] as DONTE?BLEA [id number] [facility] 044 [facility] OFFICE [facility] 2021-01-31 2021-01-31 Outpatient P AD, [facility] [id number] Univers 16:16:00 17:53:00 ELLE ellis [facility] 2021-01-31 2021-01-31 [facility] 1.2.840.114 [id number] Univers 16:16:00 17:53:00 Encounter Elle Maria JOSELINE 350.1.13.10 ity of [place] 4.2.7.2.686 [place] CAMPUS [id number] [address] 2021-01-31 2021-01-31 [facility] [id number] Univers 10:30:00 10:30:00 [facility] 2021-01-30 2021-01-30 [facility] 1.2.388.817 [id number] Univers 00:00:00 00:00:00 Elle Maria JOSELINE 350.1.13.10 ity of [facility] 4.2.7.2.686 [place]ESS[place] [phone] [facility] 134 [facility] 2021-01-30 2021-01-30 [facility] 1.2.840.114 [id number] Univers 00:00:00 00:00:00 [facility] 350.1.13.10 it y of [place] 4.2.7.2.686 [place] as PROFESSIO [phone] [address] 2021-01-29 2021-01-29 [facility] 1.2.840.114 [id number] Univers 00:00:00 00:00:00 [facility] 350.1.13.10 it y of [place] 4.2.7.2.686 Henry as PROFESSIO [phone] [address] 2021-01-27 2021-01-27 Outpatient Campos INGRAM, [facility] [id number] Univers 13:00:00 13:00:00 TEO [facility] 2021-01-27 2021-01-27 [facility] 1.2.840.114 [id number] Univers 00:00:00 00:00:00 [facility] 350.1.13.10 it y of [place] 4.2.7.2.686 Henry as PROFESSIO [phone] Nh dical NAL [address] [place] OFFICE [facility] ONE 2021-01-23 2021-01-23 Outpatient R ADUM, [facility] [id number] Univers 16:00:00 17:27:00 ELLE ity of [facility] 2021-01-23 2021-01-23 Routine Adum, [facility] 1.2.840.114 [id number] Univers 15:56:29 17:27:00 Elle L [place] 350.1.13.10 ity of Visit [place] 4.2.7.2.686 [place] PROFESS[place] [phone] Nh dical NAL 134 [facility] 2021-01-21 2021-01-21 Outpatient R ADUM, [facility] [id number] Univers 16:00:00 16:00:00 ELLE ity [facility] 2021-01-17 2021-01-17 Telephone Ad, [facility] 1.2.961.342 [id number] Univers 00:00:00 00:00:00 Elle L [place] 350.1.13.10 ity of [place] 4.2.7.2.686 [place] Profess[place] [phone] Nh dical nal 134 [facility] 2021-01-17 2021-01-17 Patient Adum, [facility] 1.2.840.114 [id number] Univers 00:00:00 00:00:00 Secure Msg Elle L [place] 350.1.13.10 ity of [place] 4.2.7.2.686 [place] Profess[place] [phone] Nh dical nal 134 [facility] 2021-01-15 2021-01-15 [facility] 1.2.840.114 [id number] Univers 00:00:00 00:00:00 [facility] 350.1.13.10 it y of [facility] 4.2.7.2.686 Ehnry as Professio [phone] Nh dical nal [address] [place] Office [facility] One 2021-01-13 2021-01-13 Refill Ad, [facility] 1.2.840.114 [id number] Univers 00:00:00 00:00:00 Elle L [place] 350.1.13.10 ity of [place] 4.2.7.2.686 [place] Profess[place] [phone] Nh dical nal 134 [facility] 2021-01-02 2021-01-02 Telephone Adum, [facility] 1.2.403.610 [id number] Univers 00:00:00 00:00:00 Elle Trevizo 350.1.13.10 ity of [place] 4.2.7.2.686 [place] Profess[place] [phone] Nh dical nal 134 [facility] 2021-01-02 2021-01-02 Orders Doctor JUAN 1.2.840.114 [id number] Univers 00:00:00 00:00:00 Only Unassigned, JARROD 350.1.13.10 ity of [place] [facility] 4.2.7.2.686 [place] as [phone] [address] 2021-01-01 2021-01-01 Telephone Adum, [facility] 1.2.158.483 [id number] Univers 00:00:00 00:00:00 Elle Trevizo 350.1.13.10 ity of [place] 4.2.7.2.686 [place] [phone] Nh dical nal 134 [facility] 2021-01-01 2021-01-01 Refill Doctor [facility] 1.2.840.114 [id number] Univers 00:00:00 00:00:00 Unassigned, Health 350.1.13.10 ity of [place] 4.2.7.2.686 Henry as Professio [phone] Nh dical nal [address] [place] Office [facility] One 2020-12-24 2020-12-24 Laboratory Only, Ang Db Test [facility] 1.2.8 40.114 [id number] Univers 17:40:30 17:55:30 Only Adum, Elle Candace Health 350.1.13.10 ity of [place] 4.2.7.2.686 Henry as Donte?Blea [phone] Nh dicin christinaey [address] [place] Medical Office Building 2020-12-24 2020-12-24 Routine Adum, [facility] 1.2.840.114 [id number] Univers 16:33:12 17:22:08 Elle Trevizo 350.1.13.10 ity of Visit [place] 4.2.7.2.686 [place] Profess[place] [phone] Nh dread cote 134 [facility] 2020-12-24 2020-12-24 [facility] [id number] Univers 16:00:00 16:00:00 ELLE ity of [facility] 2020-12-17 2020-12-17 Patient [facility] 1.2.840.114 [id number] Univers 00:00:00 00:00:00 Secure Msg [facility] 350.1.13.10 ity of [place] 4.2.7.2.686 [place] as Professio [phone] [address] One 2020-12-17 2020-12-17 Telephone [facility] 1.2.840.114 [id number] Univers 00:00:00 00:00:00 [facility] 350.1.13.10 it y of [place] 4.2.7.2.686 Henry as Donte?Blea [phone] [facility] ngozi [address] [place] [address] 2020-12-10 2020-12-10 Telephone [facility] 1.2.514.531 [id number] Univers 00:00:00 00:00:00 Elle Trevizo 350.1.13.10 ity of [place] 4.2.7.2.686 [place] Profess[place] [phone] [facility] 134 [facility] 2020-12-10 2020-12-10 Violetta Barrientos 1.2.840.114 [id number] Univers 00:00:00 00:00:00 Triage JARROD 350.1.13.10 it y of HOSPITAL 4.2.7.2.686 [place] as [phone] [address] 2020-12-10 2020-12-10 Violetta Barrientos 1.2.840.114 [id number] Univers 00:00:00 00:00:00 Triage JARROD 350.1.13.10 it y of HOSPITAL 4.2.7.2.686 [place] as [phone] [facility] [address] [place] 2020-12-04 2020-12-04 [facility] 1.2.840.114 [id number] Univers 00:00:00 00:00:00 [facility] 350.1.13.10 it y of [place] 4.2.7.2.686 [place] as Professio [phone] [address] One 2020-12-04 2020-12-04 [facility] 1.2.840.114 [id number] Univers 00:00:00 00:00:00 [facility] 350.1.13.10 it y of [place] 4.2.7.2.686 [place] as Professio [phone] [address] One 2020-12-03 2020-12-03 [facility] 1.2.840.114 [id number] Univers 00:00:00 00:00:00 [facility] 350.1.13.10 it y of [place] 4.2.7.2.686 [place] as Professio [phone] [address] One 2020-12-03 2020-12-03 [facility] 1.2.840.114 [id number] Univers 00:00:00 00:00:00 [facility] 350.1.13.10 it y of [place] 4.2.7.2.686 [place] as Professio [phone] [address] One 2020-12-02 2020-12-02 [facility] [place] 1.2.840.114 [id number] Univers 16:28:00 19:00:00 Encounter Cam [place] 350.1.13.10 ity of [place] 4.2.7.2.686 [place] [facility] [phone] [facility] [address] [place] 2020-12-02 2020-12-02 [facility] [place] 1.2.840.114 [id number] Univers 16:28:00 19:00:00 Encounter Cam [place] 350.1.13.10 ity of [place] 4.2.7.2.686 [place] [id number] [facility] [address] [place] 2020-12-02 2020-12-02 Ayaka Ennis 1.2.840.114 [id number] Univers 00:00:00 00:00:00 Triage JARROD 350.1.13.10 it y of HOSPITAL 4.2.7.2.686 [place] as [phone] [facility] [address] [place] 2020-12-02 2020-12-02 Orders Doctor JUAN 1.2.840.114 [id number] Univers 00:00:00 00:00:00 Only Unassigned, JARROD 350.1.13.10 ity of [place] [facility] 4.2.7.2.686 Henry as [phone] [facility] [address] [place] 2020-12-02 2020-12-02 RefChloe wSeet [facility] 1.2.360.104 [id number] [id number] Univers 00:00:00 00:00:00 Raleigh Trevizo 350.1.13.10 i ty of [place] 4.2.7.2.686 [place] Profess[place] [phone] Nh dical nal [address] [place] Building 2020-12-02 2020-12-02 Refdb Benz [facility] 1.2.840.114 [id number] Univers 00:00:00 00:00:00 [facility] 350.1.13.10 it y of [facility] 4.2.7.2.686 [place] as Professio [phone] Nh dical nal [address] [place] Office Building One 2020-12-02 2020-12-02 Ayaka Ennis 1.2.840.114 [id number] Univers 00:00:00 00:00:00 Triage JARROD 350.1.13.10 it y of [facility] 4.2.7.2.686 [place] as [phone] [facility] [address] [place] 2020-12-02 2020-12-02 Orders Doctor JUAN 1.2.840.114 [id number] Univers 00:00:00 00:00:00 Only Unassigned, JARROD 350.1.13.10 ity of [place] [facility] 4.2.7.2.686 Henry as [phone] [facility] [address] [place] 2020-12-02 2020-12-02 Refill Chloe Reese [facility] 1.2.579.789 [id number] Univers 00:00:00 00:00:00 [place] Trevizo 350.1.13.10 i ty of [place] 4.2.7.2.686 [place] Profess[place] [phone] Nh dical nal [address] 2020-12-02 2020-12-02 Refill Navarrogage [facility] 1.2.840.114 [id number] Univers 00:00:00 00:00:00 [facility] 350.1.13.10 it y of [place] 4.2.7.2.686 [place] as Professio [phone] Nh dical nal [address] Office Building One 2020-12-01 2020-12-01 Ayaka Ennis 1.2.840.114 87 [id number] Univers 00:00:00 00:00:00 Triage JARROD 350.1.13.10 it y of HOSPITAL 4.2.7.2.686 [place] as [id number] [facility] [address] [place] 2020-12-01 2020-12-01 Ayaka Ennis 1.2.840.114 87 [id number] Univers 00:00:00 00:00:00 Triage JARROD 350.1.13.10 it y of HOSPITAL 4.2.7.2.686 [place] as [phone] [address] 2020-11-27 2020-11-27 Outpatient R ADUM, [facility] [id number] Univers 14:00:00 14:00:00 ELLE ity of [facility] 2020-11-26 2020-11-26 Routine Adum, [facility] 1.2.840.114 [id number] Univers 15:59:55 17:26:28 Elle Trevizo 350.1.13.10 ity of Visit [place] 4.2.7.2.686 [place] Profess[place] [phone] Nh dical nal [address] [place] Building 2020-11-26 2020-11-26 Routine Adum, [facility] 1.2.840.114 [id number] Univers 15:59:55 17:26:28 Elle Trevizo 350.1.13.10 ity of Visit [place] 4.2.7.2.686 [place] Profess[place] [phone] Nh dical nal [address] [place] [address] 2020-11-26 2020-11-26 Vaccine Specialist Ultrasound, [facility] [place] 1.2 .840.114 [id number] Univers 14:06:00 15:21:00 Visit Adam Reich PHYSICIAN PRESIDENT 350.1.13.10 ity of [facility] 4.2.7.2.686 [place] as MATERNAL [phone] [facility] ical & CHILD [address] [place] [address] 2020-11-26 2020-11-26 Vaccine Specialist Ultrasound, [facility] 1.2 .840.114 [id number] Univers 14:06:00 15:21:00 Visit Adam Reich PHYSICIAN PRESIDENT 350.1.13.10 ity of [facility] 4.2.7.2.686 [place] as MATERNAL [phone] [facility] & CHILD [address] [place] [address] 2020-11-26 2020-11-26 Outpatient P [facility] [id number] Univers 14:00:00 14:00:00 ity of [facility] 2020-11-26 2020-11-26 Telephone Ad, [facility] 1.2.387.796 [id number] Univers 00:00:00 00:00:00 Elle L Joseline 350.1.13.10 ity of [place] 4.2.7.2.686 [place] Profess[place] [phone] Nh dical nal [address] [place] [address] 2020-11-26 2020-11-26 Telephone Ad, [facility] 1.2.351.737 [id number] Univers 00:00:00 00:00:00 Elle Trevizo 350.1.13.10 ity of [place] 4.2.7.2.686 [place] [phone] Nh dical nal [address] [place] [address] 2020-11-18 2020-11-18 Madison Benz [facility] 1.2.840.114 [id number] Univers 00:00:00 00:00:00 [facility] 350.1.13.10 it y of [place] 4.2.7.2.686 [place] as Professio [phone] Nh dical nal 044 [facility] One 2020-11-11 2020-11-11 Telephone [facility] 1.2.604.972 [id number] [id number] Univers 00:00:00 00:00:00 Elle Trevizo 350.1.13.10 ity of [place] 4.2.7.2.686 [place] [phone] Nh dical nal 134 [facility] 2020-11-09 2020-11-09 [facility] Chloe Reese [facility] 1.2.840.114 [id number] Univers 16:44:00 20:20:00 Encounter Raleigh Trevizo 350.1.13.10 ity of [place] 4.2.7.2.686 [place] [phone] [facility] [address] [place] 2020-11-09 2020-11-09 Nurse JUAN Chun 1.2.840.114 [id number] Univers 00:00:00 00:00:00 Triage Karina GARAY 350.1.13.10 it y of HOSPITAL 4.2.7.2.686 [place] as [phone] [facility] [address] [place] 2020-11-07 2020-11-07 [facility] 1.2.898.191 [id number] [id number] Univers 00:00:00 00:00:00 Elle Trevizo 350.1.13.10 ity of [place] 4.2.7.2.686 [place] [phone] Nh dical nal 134 [facility] 2020-11-05 2020-11-05 Office [facility] 1.2.840.114 [id number] Univers 15:51:46 16:06:46 Visit [facility] 350.1.13.10 it y of Surgical 4.2.7.2.686 [place] as Specialti [phone] Nh dical es 198 [facility] 2020-11-05 2020-11-05 Outpatient R SARAHI [facility] [id number] Univers 15:45:00 15:45:00 CARMEN ity of [facility] 2020-11-02 2020-11-02 Nurse JUAN Ca 1.2.840.114 [id number] Univers 00:00:00 00:00:00 Triage Helen GARAY 350.1.13.10 it y of HOSPITAL 4.2.7.2.686 [place] as [phone] [facility] [address] [place] 2020-11-02 2020-11-02 Telephone Juma Mcdaniels [facility] Chris 1.2.840.11 [id number] Univers 00:00:00 00:00:00 Jose 350.1.13.10 it y of [place]'s [place]2.[place] [phone] [facility] [address] 2020-10-29 2020-10-29 Vaccine Specialist 2, Adc Lab [facility] 1.2.840.114 [id number] Univers 14:07:34 14:22:34 Visit AdumElle 350.1.13.10 ity of [place] 4.2.7.2.686 [place] [phone] Nh dical nal [address] [place] Building 2020-10-29 2020-10-29 Outpatient R [facility] [id number] Univers 14:00:00 14:00:00 ity of [facility] 2020-10-29 2020-10-29 Madison Benz [facility] 1.2.840.114 [id number] Univers 00:00:00 00:00:00 Arik [facility] 350.1.13.10 it y of [place] Joseline 4.2.7.2.686 [place] as Professio [phone] Me dical nal [address] [place] Office Building One 2020-10-29 2020-10-29 Orders Doctor JUAN 1.2.840.114 [id number] Univers 00:00:00 00:00:00 Only Unassigned, JARROD 350.1.13.10 ity of [place] [facility] 4.2.7.2.686 [place] as [phone] [facility] [address] 2020-10-25 2020-10-25 Routine Adum, [facility] 1.2.840.114 [id number] Univers 16:45:11 17:34:04 Elle Trevizo 350.1.13.10 ity of Visit [place] 4.2.7.2.686 [place] Profess[place] [phone] [facility] 134 [facility] 2020-10-25 2020-10-25 Outpatient R AD, [facility] [id number] Univers 16:15:00 16:15:00 ELLE ity of [facility] 2020-10-19 2020-10-19 [facility] 1.2.840.114 [id number] Univers 00:00:00 00:00:00 [facility] 350.1.13.10 it y of [place] 4.2.7.2.686 [place] as Professio [phone] [facility] [address] [place] Office Building One 2020-10-18 2020-10-18 Telemedici Fellow, Navin [facility] Rmp [facility] U NIVERSIT 1.2.840.114 [id number] Univers 14:46:12 15:16:12 ne Visit Shira Chaudhary [facility] 350.1.13.10 ity [place] [phone] [address] 2020-10-18 2020-10-18 Outpatient R [facility] [id number] Univers 13:30:00 13:30:00 ity of [facility] 2020-10-16 2020-10-16 Telephone Ad, [facility] [id number] Univers 00:00:00 00:00:00 Elle Trevizo 350.1.13.10 ity of [place] [phone] [facility] [address] [facility] 2020-10-16 2020-10-16 Telephone Adum, [facility] [id number] Univers 00:00:00 00:00:00 Elle L [place] [id number] ity of [place] [phone] Nh dical nal 134 [facility] 2020-10-08 2020-10-08 Orders Doctor JUAN [id number] Univers 00:00:00 00:00:00 Only Unassigned, JARROD 350.1.13.10 ity of [facility] 4.2.7.2.686 [place] as [phone] [facility] [address] [place] 2020-10-04 2020-10-04 Telemedici Fellow, Gal [facility] Rmchp [facility] U NIVERSIT 1.2.840.114 [id number] Univers 08:16:56 08:46:56 ne Visit Alyssia Marx 350. 1.13.10 ity of [place] [phone] [facility] [address] [place] 2020-10-04 2020-10-04 Outpatient R [facility] [id number] Univers 08:30:00 08:30:00 ity of [facility] 2020-10-02 2020-10-02 Telephone [facility] 1.2.840.114 [id number] Univers 00:00:00 00:00:00 [facility] [id number] it y of [place] 4.2.7.2.686 [place] as Professio [phone] Nh dical nal [address] [place] [place] [address] 2020-09-27 2020-09-27 [facility] 1.2.840.114 [id number] Univers 16:05:39 17:08:05 Elle Trevizo 350.1.13.10 ity of Visit [place] [phone] Nh dical nal 134 [facility] 2020-09-27 2020-09-27 [facility] [facility] [id number] Univers 16:00:00 16:00:00 ELLE ity of [facility] 2020-09-25 2020-09-25 Telephone [facility] 1.2.840.114 [id number] Univers 00:00:00 00:00:00 [facility] 350.1.13.10 it y of [place] 4.2.7.2.686 [place] as Professio [phone] [employer] 044 [facility] One 2020-09-24 2020-09-24 Outpatient R CARLOS, [facility] [id number] Univers 14:00:00 14:00:00 ELLE itleonard of [facility] 2020-09-21 2020-09-21 Telemedici Myrtle Goldman [facility] 1.2.840 .114 [id number] Univers 17:30:22 18:00:22 ne Visit Unknown, [facility] 350.1.13.1 0 ity [facility] [place] [phone] [facility] 2020-09-21 2020-09-21 Outpatient R DRE, [facility] [id number] Univers 17:30:00 17:30:00 ATTENDING ity [facility] 2020 2020 Outpatient R DEMAR [facility] [id number] Univers 16:15:00 16:15:00 ARIK [facility] 2020 2020 [facility]medici [facility] 1.2.840.114 [id number] Univers 14:02:59 14:17:59 ne Visit [facility] 350.1.13.10 i ty of [place] 4.2.7.2.686 [place] as Professio [phone] [employer] [facility] [employer] [facility] 044 [facility] One 2020 2020 Telephone Ad, [facility] 1.2.590.775 [id number] Univers 00:00:00 00:00:00 Elle Trevizo 350.1.13.10 ity of [place] [phone] [employer] [facility] [employer] [facility] 134 [facility] 2020-09-19 2020-09-19 Outpatient R GONZALES [facility] [id number] Univers 17:40:00 17:40:00 JAIDEN ity [facility] 2020-09-19 2020-09-19 Outpatient R [facility] [id number] Univers 16:30:00 16:30:00 ity of [facility] 2020-09-19 2020-09-19 Madison Demar [facility] 1.2.840.114 [id number] Univers 00:00:00 00:00:00 [facility] 350.1.13.10 it y of [place] 4.2.7.2.686 [place] Professio [phone] [employer] 0[address] Building One 2020-09-19 2020-09-19 Nurse Martha Lang 1.2.840.114 [id number] Univers 00:00:00 00:00:00 Triage JARROD 350.1.13.10 it y of [facility] 4.2.7.2.686 [place] as [phone] [facility] [address] [place] 2020-09-19 2020-09-19 Nurse Violetta Clay 1.2.840.114 [id number] Univers 00:00:00 00:00:00 Triage JARROD 350.1.13.10 it y of [facility] 4.2.7.2.686 [place] as [phone] [facility] [address] [place] 2020-09-19 2020-09-19 Patient [facility], [facility] 1.2.840.114 [id number] Univers 00:00:00 00:00:00 Secure Msg Elle Trevizo 350.1.13.10 ity of [place].2.[place] [phone] [employer] [facility] [address] Building 2020-09-19 2020-09-19 Telephone Clinic, [facility] 1.2.840.11 [id number] Univers 00:00:00 00:00:00 Neurology Y [facility] 350.1.13.10 ity of [facility] 4.2.7.2.686 [place] [phone] [facility] 093 [address] 2020-09-18 2020-09-18 Telephone Kalyani Martinez 1.2.162.375 [id number] Univers 00:00:00 00:00:00 Analilia Wills 350.1.13.10 ity of [place].2.[place] [phone] [address] 2020-09-18 2020-09-18 [facility] 1.2.840.114 [id number] Univers 00:00:00 00:00:00 [facility] 350.1.13.10 it y of [place] 4.2.7.2.686 [place] as Professio [phone] [employer] [facility] [address] [place] Office [facility] One 2020-09-18 2020-09-18 Telephone [facility] 1.2.006.564 [id number] Univers 00:00:00 00:00:00 Elle [place] 350.1.13.10 ity of [place].2.[place] [phone] [facility] 134 [facility] 2020-09-08 2020-09-10 Hospital Tita Cortez 1.2.840.11 [id number] Univers 12:24:00 09:20:00 Encounter Migdalia Linares 350.1.13.10 ity of [facility] 4.2.7.2.686 [place] as [phone] [address] 2020-09-08 2020-09-08 Nurse JUAN Santos 1.2.840.114 [id number] Univers 00:00:00 00:00:00 Triage Rosy Obando JARROD 350.1.13.10 ity of [facility] 4.2.7.2.686 [place] as [phone] [address] 2020-09-05 2020-09-05 Outpatient MAO FIGUEROA [facility] [id number] Univers 14:30:00 14:30:00 ity of [facility] 2020-09-03 2020-09-03 [facility] 1.2.840.114 [id number] Univers 00:00:00 00:00:00 [facility] 350.1.13.10 it y of [place] 4.2.7.2.686 [place] as Professio [phone] [facility] 044 [facility] One 2020-09-03 2020-09-03 Telephone [facility] 1.2.319.056 [id number] Univers 00:00:00 00:00:00 Elle Trevizo 350.1.13.10 ity of [place].2.[place] [phone] [address] 2020-09-02 2020-09-02 Routine Chloe Reese [facility] 1.2.240.130 [id number] Univers 13:19:48 15:16:04 Raleigh Trevizo 350.1.13.10 ity of Visit [place] 4.2.7.2.[place] [phone] [address] 2020-09-02 2020-09-02 Outpatient R CHLOE REESE [facility] [id number] Univers 13:15:00 13:15:00 ity of [facility] 2020-09-02 2020-09-02 [facility]phone [facility] 1.2.466.810 [id number] Univers 00:00:00 00:00:00 Elle Trevizo 350.1.13.10 ity of [place] 4.2.7.2.[place] [phone] [address] 2020-08-31 2020-08-31 Nurse Irina MARTINEZ 1.2.840.114 [id number] Univers 00:00:00 00:00:00 Triage JARROD Guzman 350.1.13.10 ity of [facility] 4.2.7.2.686 [place] as [phone] [address] 2020-08-31 2020-08-31 JUAN Pelaez 1.2.840.114 [id number] Univers 00:00:00 00:00:00 Triage Cat ESTESY 350.1.13.10 i ty of [facility] 4.2.7.2.686 [place] as [phone] [address] 2020-08-30 2020-08-30 JUAN Pelaez 1.2.840.114 [id number] Univers 00:00:00 00:00:00 Triage Cat ESTESY 350.1.13.10 i ty of [facility] 4.2.7.2.686 [place] as [phone] [facility] [address] [place] 2020-08-28 2020-08-29 Emergency Owusu, [facility] 1.2.309.314 [id number] Univers 20:20:00 00:01:00 Darryn Trevizo 350.1.13.10 i ty of [place] 4.2.7.2.686 [place] [phone] [facility] [address] [place] 2020-08-27 2020-08-27 Vaccine Specialist 2, Adc Lab [facility] 1.2.840.114 [id number] Univers 15:18:51 15:33:51 Visit Adum Elle Trevizo 350.1.13.10 ity of [place] 4.2.7.2.[place] [phone] [facility] 353 [facility] 2020-08-27 2020-08-27 Routine Adum, [facility] 1.2.840.114 [id number] Univers 13:41:37 15:06:26 Elle Trevizo 350.1.13.10 ity of Visit [place] 4.2.7.2.[place] [phone] [facility] 134 [facility] 2020-08-27 2020-08-27 Outpatient R CARLOS, [facility] [id number] Univers 14:15:00 14:15:00 ELLE ellis [facility] 2020-08-27 2020-08-27 Telephone [facility] 1.2.774.391 [id number] Univers 00:00:00 00:00:00 Elle Trevizo 350.1.13.10 ity of [place].2.7.2.[place] [phone] [facility] 134 [facility] 2020-08-22 2020-08-22 Outpatient R ONEL [facility] [id number] Univers 19:20:00 19:20:00 CALEB ity [facility] 2020-08-22 2020-08-22 Telephone [facility] 1.2.543.771 [id number] Univers 00:00:00 00:00:00 Elle L [place] 350.1.13.10 ity of [place] 4.2.7.2.[place] [phone] Nh dical nal [address] [place] [address] 2020-08-22 2020-08-22 Telephone Adum, [facility] 1.2.967.488 [id number] Univers 00:00:00 00:00:00 Elle L [place] 350.1.13.10 ity of [place] 4.2.7.2.[place] [phone] Nh dical nal [address] [place] [address] 2020-08-19 2020-08-19 Refill Adum, [facility] 1.2.840.114 [id number] Univers 00:00:00 00:00:00 Elle L [place] 350.1.13.10 ity of [place] 4.2.7.2.[place] [phone] Nh dicin nal [address] [place] [address] 2020-08-09 2020-08-09 Outpatient R ADUM, [facility] [id number] Univers 14:30:00 14:30:00 ELLE ity of [facility] 2020-08-06 2020-08-06 Initial Ad, [facility] 1.2.840.114 [id number] Univers 14:28:51 16:45:44 Elle L [place] 350.1.13.10 ity of Visit [place] 4.2.7.2.[place] [phone] [address] 2020-08-06 2020-08-06 Outpatient R ADUM, [facility] [id number] Univers 14:30:00 14:30:00 ELLE ity of [facility] 2020-08-06 2020-08-06 Telephone Ad, [facility] 1.2.553.607 [id number] Univers 00:00:00 00:00:00 Elle L [place] 350.1.13.10 ity of [place] 4.2.7.2.[place] [phone] [facility] nal [address] [place] [address] 2020-08-06 2020-08-06 Orders Doctor MARTINEZ 1.2.840.114 [id number] Univers 00:00:00 00:00:00 Only Unassigned, JARROD 350.1.13.10 ity of [place] [facility] 4.2.7.2.686 [place] as [phone] [address] 2020-07-29 2020-07-29 [facility] 1.2.840.114 [id number] Univers 00:00:00 00:00:00 [facility] 350.1.13.10 it y of [place] 4.2.7.2.686 [place] as Professio [phone] [address] 2020-07-29 2020-07-29 [facility] 1.2.840.114 [id number] Univers 00:00:00 00:00:00 [facility] 350.1.13.10 it y of [place] 4.2.7.2.686 [place] as Professio [phone] [address] One 2020-07-22 2020-07-22 Outpatient [facility] [id number] Univers 19:00:00 19:00:00 IAIN blue [facility] 2020-07-16 2020-07-16 [facility] 1.2.840.114 [id number] Univers 00:00:00 00:00:00 [facility] 350.1.13.10 it y of [place] 4.2.7.2.686 [place] as Professio [phone] [address] One 2020-07-06 2020-07-06 [facility] 1.2.840.114 [id number] Univers 00:00:00 00:00:00 [facility] 350.1.13.10 it y of [place] 4.2.7.2.686 [place] as Professio [phone] [address] One 2020-07-01 2020-07-01 [facility] 1.2.840.114 [id number] Univers 00:00:00 00:00:00 [facility] 350.1.13.10 it y of [place] 4.2.7.2.686 [place] as Professio [phone] Nh dical nal 044 [facility] 2020-06-21 2020-06-21 Outpatient R KING TAMMIE [facility] [id number] Univers 16:15:00 16:15:00 [facility] 2020-06-19 2020-06-19 Orders Doctor JUAN 1.2.840.114 [id number] Univers 00:00:00 00:00:00 Only Unassigned, JARROD 350.1.13.10 ity of [place] [facility] 4.2.7.2.686 [place] as [phone] [address] 2020-06-11 2020-06-11 Office [facility] 1.2.840.114 [id number] Univers 15:35:12 15:50:12 Visit [facility] 350.1.13.10 it y of [place] 4.2.7.2.686 [place] as Professio [phone] Nh dical nal 044 [facility] 2020-06-11 2020-06-11 [facility] [id number] Univers 15:30:00 15:30:00 [facility] 2020-05-30 2020-05-30 [facility] 1.2.840.114 [id number] Univers 00:00:00 00:00:00 [facility] 350.1.13.10 it y of [place] 4.2.7.2.686 [place] as Professio [phone] Nh dical nal 044 [facility] 2020-05-27 2020-05-27 Refdb [facility] 1.2.840.114 [id number] Univers 00:00:00 00:00:00 Grant Anders[place] 350.1.13.10 ity of [place] 4[place].2.[place] [phone] Nh dicin nal 092 [facility] 2020-05-02 2020-05-02 Outpatient R [facility] [id number] 6139 [facility] 09:50:00 09:50:00 ARIK ity of [facility] 2020-05-02 2020-05-02 Telemedici [facility] 1.2.840.114 [id number] [facility] 08:42:09 08:52:09 ne Visit [facility] 350.1.13.10 i ty of [place] 4.2.7.2.686 [place] as Professio [phone] [address] One 2020-05-02 2020-05-02 Telephone [facility] 1.2.840.114 [id number] Univers 00:00:00 00:00:00 [facility] 350.1.13.10 it y of [place] 4.2.7.2.686 [place] as Professio [phone] [address] One 2020-05-02 2020-05-02 Telephone [facility] 1.2.840.114 [id number] Univers 00:00:00 00:00:00 [facility] 350.1.13.10 it y of [place] 4.2.7.2.686 [place] as Professio [phone] [address] One 2020-05-02 2020-05-02 Telephone [facility] 1.2.840.114 [id number] Univers 00:00:00 00:00:00 [facility] 350.1.13.10 it y of [place] 4.2.7.2.686 [place] as Professio [phone] [address] One 2020-05-01 2020-05-01 Emergency [facility] 1.2.951.366 [id number] [facility] 18:59:00 21:44:00 Juma R [place] 350.1.13.10 i ty of [place] 4.2.7.2.686 [place] [facility] [phone] [facility] [address] [place] 2020-04-28 2020-04-28 Refill [facility] 1.2.840.114 [id number] Univers 00:00:00 00:00:00 [facility] 350.1.13.10 it y of [place] 4.2.7.2.686 [place] as Professio [phone] [address] Office [facility] One 2020-04-22 2020-04-22 [facility] 1.2.840.114 [id number] Univers 06:54:00 08:09:00 Encounter Aly S [place] 350.1.13.10 ity [facility] 4.2.7.2.[place] [phone] [address] 2020-04-19 2020-04-19 Outpatient [facility] [id number] Univers 13:00:00 13:00:00 ALY ity [facility] 2020-04-12 2020-04-12 Refill [facility] 1.2.840.114 [id number] Univers 00:00:00 00:00:00 [facility] 350.1.13.10 it y of [place] 4.2.7.2.686 [place] as Professio [phone] [address] One 2020-04-11 2020-04-11 Outpatient R [facility] [id number] Univers 10:30:00 10:30:00 [facility] 2020-[facility]-11 2020-04-11 Telemedici [facility] 1.2.840.114 [id number] Univers 07:27:09 07:42:09 ne Visit [facility] 350.1.13.10 i ty of [place] 4.2.7.2.686 [place] as Professio [phone] [address] Office [facility] One 2020-04-11 2020-04-11 Telephone [facility] 1.2.840.114 [id number] Univers 00:00:00 00:00:00 [facility] 350.1.13.10 it y of [place] 4.2.7.2.686 [place] as Professio [phone] [address] Office [facility] One 2020-04-09 2020-04-09 Outpatient Campos BENZ [facility] [id number] Univers 13:00:00 13:00:00 ARIK ity [facility] 2020-04-08 2020-04-08 [facility] 1.2.840.114 [id number] Univers 06:58:00 08:24:00 Encounter Aly Trevizo 350.1.13.10 ity of [place]2.[place].2.[place] [phone] [address] 2020-04-08 2020-04-08 Orders Doctor JUAN 1.2.840.114 [id number] Univers 00:00:00 00:00:00 Only Unassigned, JARROD 350.1.13.10 ity of [place] [facility] 4.2.7.2.686 Henry as [phone] [address] 2020-04-05 2020-04-05 Outpatient Cam[facility] [id number] Univers 13:45:00 13:45:00 ALY ellis [facility] 2020-04-05 2020-04-05 Vaccine Specialist Danette, Adc Lab Main [facility] 1.2.8 40.114 [id number] Univers 11:46:35 12:01:35 Visit Aly Ryan 350.1.13.1 0 ity of [place] 4[place].2.[place] [phone] [address] 2020-04-05 2020-04-05 Laboratory Only, Adc Test [facility] 1.2.840. 114 [id number] Univers 11:44:14 11:59:14 Only Aly Ryan 350.1.13.1 0 ity of [place] 4.2.[place].2.[place] [phone] [facility] [address] [place] 2020-04-05 2020-04-05 Orders Doctor JUAN 1.2.840.114 [id number] Univers 00:00:00 00:00:00 Only Unassigned, JARROD 350.1.13.10 ity of [place] [facility] 4.2.7.2.686 Henry as [phone] [address] 2020-04-05 2020-04-05 Telephone [facility] 1.2.840.114 [id number] Univers 00:00:00 00:00:00 [facility] 350.1.13.10 it y of [place] 4.2.7.2.686 [place] as Professio [phone] [address] Office Building One 2020-04-04 2020-04-04 Telephone [facility] 1.2.840.114 [id number] Univers 00:00:00 00:00:00 [facility] 350.1.13.10 it y of [place] 4.2.7.2.686 [place] as Professio [phone] [address] One 2020-04-04 2020-04-04 Patient [facility] 1.2.840.114 [id number] Univers 00:00:00 00:00:00 Secure Msg [facility] 350.1.13.10 ity of [place] 4.2.7.2.686 [place] as Professio [phone] [address] One 2020-04-03 2020-04-03 Office [facility] 1.2.840.114 [id number] Univers 15:00:34 15:15:34 Visit [facility] 350.1.13.10 it y of [place] 4.2.7.2.686 [place] as Professio [phone] [address] Office [facility] One 2020-04-03 2020-04-03 Outpatient R [facility] [id number] Univers 14:45:00 14:45:00 ARIK ity of [facility] 2020-04-03 2020-04-03 Telephone [facility] 1.2.840.114 [id number] Univers 00:00:00 00:00:00 [facility] 350.1.13.10 it y of [place] 4.2.7.2.686 [place] as Professio [phone] [address] Office [facility] 2020-04-03 2020-04-03 Telephone Demar [facility] 1.2.840.114 [id number] Univers 00:00:00 00:00:00 [facility] 350.1.13.10 it y of [place] 4.2.7.2.686 [place] as Professio [phone] [facility] [address] [place] Office [facility] 2020-03-25 2020-03-25 [facility] 1.2.840.114 [id number] Univers 08:02:00 10:10:00 Encounter Aly Trevizo 350.1.13.10 ity of [place] [phone] [facility] [address] [place] 2020-03-25 2020-03-25 Orders Doctor JUAN 1.2.840.114 [id number] Univers 00:00:00 00:00:00 Only Unassigned, JARROD 350.1.13.10 ity of [facility] 4.2.7.2.686 [place] as [phone] [facility] [address] [place] 2020-03-25 2020-03-25 Nurse Irina MARTINEZ 1.2.840.114 [id number] Univers 00:00:00 00:00:00 Triage Thomas JARROD 350.1.13.10 ity of [facility] 4.2.7.2.686 [place] as [phone] [facility] [address] [place] 2020-03-20 2020-03-20 Vaccine Specialist Danette, Adc Lab Main [place] 1.2.8 40.114 [id number] Univers 12:30:25 12:45:25 Visit Aly Ryan 350.1.13.1 0 ity of [place] 4.2.7.2.[place] [phone] Nh dicin nal 353 [facility] 2020-03-20 2020-03-20 Laboratory Only, Adc Test [facility] 1.2.840. 114 [id number] Univers 11:43:13 11:58:13 Only Aly Ryan 350.1.13.1 0 ity of [place] 4.2.[place].2.[place] [phone] [facility] [address] [place] 2020-03-20 2020-03-20 Outpatient R SHELBY [facility] [id number] Univers 11:15:00 11:15:00 ALY ity [facility] 2020-03-20 2020-03-20 Orders Doctor JUAN 1.2.840.114 [id number] Univers 00:00:00 00:00:00 Only Unassigned, JARROD 350.1.13.10 ity [place] [facility] 4.2.7.2.686 [place] as [phone] [facility] [address] [place] 2020-03-12 2020-03-12 Office [facility] 1.2.840.114 [id number] Univers 14:07:40 14:22:40 Visit [facility] 350.1.13.10 it y of [place] 4.2.7.2.686 [place] as Professio [phone] [address] Office [facility] 2020-03-12 2020-03-12 Outpatient R [facility] [id number] Univers 14:15:00 14:15:00 ARIK [facility] 2020-03-12 2020-03-12 Nurse JUAN Chun 1.2.840.114 [id number] Univers 00:00:00 00:00:00 Triage Karina GARAY 350.1.13.10 it y of HOSPITAL 4.2.7.2.686 [place] as [phone] [facility] [address] [place] 2020-03-12 2020-03-12 Telephone [facility] 1.2.840.114 [id number] Univers 00:00:00 00:00:00 [facility] 350.1.13.10 it y of [place] 4.2.7.2.686 [place] as Professio [phone] [address] Office Building [facility] 2020-02-14 2020-02-14 Outpatient [facility] [id number] Univers 15:30:00 15:30:00 ELLE [facility] 2020-02-12 2020-02-12 Refill [facility] 1.2.840.114 [id number] Univers 00:00:00 00:00:00 [facility] 350.1.13.10 it y of [place] 4.2.7.2.686 [place] as Professio [phone] [address] Office [facility] One 2020-01-29 2020-01-29 Telephone [facility] 1.2.840.114 [id number] Univers 00:00:00 00:00:00 [facility] 350.1.13.10 it y of [place] 4.2.7.2.686 [place] as Professio [phone] [address] Office [facility] One 2020-01-29 2020-01-29 Refill [facility] 1.2.840.114 [id number] 650 [facility] 00:00:00 00:00:00 [facility] 350.1.13.10 it y of [place] 4.2.7.2.686 [place] as Professio [phone] [address] 2020-01-26 2020-01-26 Outpatient R [facility] [id number] 1214 [facility] 16:00:00 16:00:00 [facility] 2020-01-26 2020-01-26 Vaccine Specialist Lab, [facility] Fam Pob I [facility] 1.2. 840.114 [id number] Univers 09:09:02 09:16:47 Visit Demar Arik Jonathan [facility] 350.1.13 .10 ity of [place] 4.2.7.2.686 [place] as Professio [phone] [address] 2020-01-26 2020-01-26 Office [facility] 1.2.840.114 [id number] Univers 08:16:33 08:31:33 Visit Arik [facility] 350.1.13.10 it y of [place] 4.2.7.2.686 [place] as Professio [phone] [address] 2020-01-26 2020-01-26 Outpatient R [facility] [id number] 5644 [facility] 08:30:00 08:30:00 [facility] 2020-01-25 2020-01-25 Office [facility] 1.2.838.783 [id number] Univers 15:25:26 16:55:28 Visit Teo Trevizo 350.1.13.10 i ty of [place]2.[place].2.[place] [phone] Nh dical nal 134 [facility] 2020-01-25 2020-01-25 Outpatient R NATALY [facility] [id number] Univers 15:30:00 15:30:00 TEO [facility] 2020-01-24 2020-01-24 Outpatient R JUMA MCDANIELS [facility] [id number] Univers 14:30:00 14:30:00 ity [facility] 2020-01-18 2020-01-18 Refill Doctor [facility] [id number] [facility] 00:00:00 00:00:00 Unassigned, [facility] [id number] [place] [facility] [phone] [address] 2020-01-15 2020-01-15 [facility] [id number] Univers 00:00:00 00:00:00 Maximus Trevizo [id number] i ty [id number] [phone] Nh dical nal 044 [facility] 2020-01-12 2020-01-12 [facility] [id number] [facility] 00:00:00 00:00:00 Grant Trevizo 350.1.13.10 it[place] [phone] Nh dical nal 092 [facility] 2019-12-15 2019-12-15 Outpatient R CARLOS [facility] [id number] Univers 13:00:00 13:00:00 ELLE caleb [facility] 2019-11-07 2019-11-17 [facility] 1.2.840.114 [id number] Univers 14:01:04 14:03:23 Visit Justin Trevizo 350.1.13.10 it[place] of [place] [phone] Nh dical nal 044 [facility] 2019-11-17 2019-11-17 Tucker Elvin [facility] 1.2.840.114 [id number] Univers 00:00:00 00:00:00 Management Justin Trevizo 350.1.13.10 it[place] of [place] [phone] [facility] 044 [facility] 2019-11-14 2019-11-14 Outpatient Campos BENZ, [facility] [id number] Univers 16:30:00 16:30:00 ARIK ellis [facility] 2019-11-10 2019-11-10 Telephone [facility] 1.2.840.114 [id number] Univers 00:00:00 00:00:00 Grant Trevizo 350.1.13.10 ity of [place] [phone] [facility] 092 [facility] 2019-11-10 2019-11-10 Refill [facility] 1.2.840.114 [id number] Univers 00:00:00 00:00:00 Grant Trevizo 350.1.13.10 it[place] of [place] [phone] [facility] 092 [facility] 2019-11-08 2019-11-08 Outpatient Asplin_B VFP VFP [id number] 1-20 Village 11:44:00 11:44:00 [id number] Family Practic e 2019-11-08 2019-11-08 Telephone [facility] 1.2840.114 [id number] Univers 00:00:00 00:00:00 Grant Trevizo 350.1.13.10 it[place] of [place] [phone] [facility] 092 [facility] 2019-11-07 2019-11-07 Vaccine Specialist 2, Adc Lab [facility] 1.2.840.114 [id number] Univers 14:43:22 14:58:22 Visit Justin Oconnor 350.1.13. 10 it[place] of [place] [phone] Nh dical nal 353 [facility] 2019-11-07 2019-11-07 Outpatient R ELVIN, [facility] [id number] Univers 13:45:00 13:45:00 WONDIFUL ity o f [facility] 2019-11-05 2019-11-05 [facility] [id number] Univers 16:20:00 16:20:00 CALEB ity of [facility] 2019-11-05 2019-11-05 Nurse JUAN Santos 1.2.840.114 [id number] Univers 00:00:00 00:00:00 Triage Rosy GARAY 350.1.13.10 ity of [facility] 4.2.7.2.686 [place] as [phone] [facility] [address] [place] 2019-11-03 2019-11-03 HAY Chan 1.2.840.114 [id number] Univers 00:00:00 00:00:00 [facility] 350.1.13.10 ity of CLINICS [place] [phone] [facility] [address] [place] 2019-11-02 2019-11-02 Patient Elvin [facility] 1.2.840.114 [id number] Univers 00:00:00 00:00:00 Secure Msg Homerocorinna Zandra [place] 350.1.13.10 it[place] of [place] [phone] Nh dical nal 044 [facility] 2019-11-01 2019-11-01 Transition Kalyani Dubois 1.2.840.114 [id number] Univers 00:00:00 00:00:00 of Care Edna Wills 350.1.13.10 ity of [place].2.[place] [phone] [facility] [address] 2019-10-31 2019-10-31 Emergency [facility] 1.2.684.429 [id number] Univers 16:01:00 18:16:00 Leroy Trevizo 350.1.13.10 i ty of [place] 4.2.7.2.686 [facility] [phone] [address] 2019-10-31 2019-10-31 Telemedici Beth Kang [facility] 1.2.840 .114 [id number] Univers 05:43:53 13:27:24 ne Visit Unknown, Attending SPECIALTY 350.1.13 .10 ity of CARE 4.2.7.2.686 [facility] AT [phone] Nh dread VICTORY 370 [facility] 2019-10-31 2019-10-31 Outpatient R UNKNOWN, [facility] [id number] Univers 10:00:00 10:00:00 ATTENDING ity of [facility] 2019-10-31 2019-10-31 Telephone [facility] 1.2.204.838 [id number] Univers 00:00:00 00:00:00 [facility] 350.1.13.10 it y of [place] 4.2.7.2.686 [place] as Professio [phone] Nh dical nal 044 [facility] 2019-10-30 2019-10-30 Telephone [facility] 1.2.633.010 [id number] Univers 00:00:00 00:00:00 [facility] 350.1.13.10 it y of [place] 4.2.7.2.686 [place] as Professio [phone] [facility] nal 044 [facility] 2019-10-29 2019-10-29 Emergency [facility] 1.2.380.051 [id number] Univers 20:08:00 22:13:00 Jane Scott [place] 350.1.13.10 ity of [place] 4.2.7.2.686 [facility] [phone] [address] 2019-10-29 2019-10-29 Telemedici Care, Provider 12 - Adult U [facility] 1.2.840.114 [id number] Univers 18:20:00 18:40:00 ne Visit Unknown, Attending HEALTH 350.1.13.1 0 ity of [place] 4.2.7.2.686 [facility] [phone] [address] ([facility]) 2019-10-29 2019-10-29 Outpatient R DRE [facility] [id number] Univers 18:20:00 18:20:00 ATTENDING ity of [facility] 2019-10-25 2019-10-25 Telephone [facility] 1.2.316.516 [id number] Univers 00:00:00 00:00:00 [facility] 350.1.13.10 it y of [place] 4.2.7.2.686 [place] Professio [phone] [address] Office Building One 2019-10-25 2019-10-25 Madison Rhoades [facility] 1.2.840.114 [id number] Univers 00:00:00 00:00:00 Maximus Trevizo 350.1.13.10 i ty of [place] 4.2.7.2.[address] [facility] [phone] [address] 2019-10-24 2019-10-24 [facility] access hospital 1.2.840.114 [id number] Univers 16:15:00 23:59:00 Encounter Tico Trevizo 350.1.13.10 ity of [place] 4.2.7.2.686 [facility] [phone] [facility] [address] [place] 2019-10-24 2019-10-24 Urgent Provider, [facility] 1.2.840.114 [id number] Univers 15:17:27 15:37:27 Care Tico Chi 350.1.13.10 ity of [place] 4.2.7.2.686 [place] as Professio [phone] [address] Office Building [facility] 2019-10-24 2019-10-24 Outpatient R ALON [facility] [id number] Univers 15:20:00 15:20:00 TICO campy of [facility] 2019-10-24 2019-10-24 Telephone [facility] 1.2.237.163 [id number] Univers 00:00:00 00:00:00 Tico Trevizo 350.1.13.10 i ty [place] [phone] Nh dical nal 044 [facility] 2019-10-23 2019-10-23 Outpatient Asplin_B VFP VFP [id number] 1-20 [place] 11:19:00 11:19:00 [id number] Family Practic e 2019-10-10 2019-10-10 Telephone [facility] 1.2.840.114 [id number] Univers 00:00:00 00:00:00 Aly S PRIMARY 350.1.13.10 i ty of CARE 4[place]2.[place].2.[place] [phone] Nh dical [address] [place] 2019-09-26 2019-09-26 Refill [facility] 1.2.840.114 [id number] Univers 00:00:00 00:00:00 Tico Trevizo 350.1.13.10 i ty [place] [phone] Nh dical nal 044 [facility] 2019-09-16 2019-09-16 Outpatient R ONEL [facility] [id number] Univers 16:40:00 16:40:00 CALEB ellis [facility] 2019-09-16 2019-09-16 Outpatient Asplin_B VFP VFP [id number] 1-20 [facility] 10:07:00 10:07:00 Family Practic e 2019-09-15 2019-09-15 Outpatient Campos SANTIAGO [facility] [id number] Univers 17:00:00 17:00:00 KITA ellis [facility] 2019-09-08 2019-09-08 Telephone JUAN Chi 1.2.661.239 [id number] Univers 00:00:00 00:00:00 Tico GARAY 350.1.13.10 it y of HOSPITAL 4.2.7.2.686 [place] as [phone] [address] 2019-09-08 2019-09-08 Patient Doctor JUAN 1.2.840.114 [id number] Univers 00:00:00 00:00:00 Secure Msg UnassignedJARROD 350.1.13.10 ity of [place] [facility] 4.2.7.2.686 [place] as [phone] [address] 2019-09-06 2019-09-06 Urgent Pob1, Acute Care Clinic [facility] 1. 2.840.114 [id number] Univers 16:19:19 16:39:19 Care Brianna Aparna [facility] 350.1.13.10 ity of [place] 4.2.7.2.686 [place] as Professio [phone] Nh dical [facility] [address] [place] Office Building One 2019-09-06 2019-09-06 Outpatient R [facility] [id number] Univers 16:20:00 16:20:00 ity of [facility] 2019-09-06 2019-09-06 Outpatient R [facility] [id number] Univers 11:20:00 11:20:00 ity of [facility] 2019-09-06 2019-09-06 Patient Doctor JUAN 1.2.840.114 [id number] Univers 00:00:00 00:00:00 Secure Msg Unassigned, JARROD 350.1.13.10 [facility] 4.2.7.2.686 [place] as [phone] [address] 2019-08-23 2019-08-23 Outpatient R GRANT GUSMAN [facility] [id number] Univers 15:00:00 15:00:00 GRANT GUSMAN ity of [facility] 2019-08-23 2019-08-23 Telemedici ROSEMARY GusmanIT 1.2.840.114 [id number] Univers 08:11:53 08:41:53 ne Visit Grant [facility] 350.1.13.10 ity of CLINICS [place]2.[place].2.[place] [phone] [facility] [address] 2019-08-20 2019-08-20 Outpatient R AMIE [facility] [id number] Univers 17:00:00 17:00:00 MURALI ity of [facility] 2019-08-15 2019-08-15 Transition Kalyani Dubois 1.2.840.114 [id number] Univers 00:00:00 00:00:00 of Care Edna Wills 350.1.13.10 ity of [place]2.[place].2.[place] [phone] [facility] [address] 2019-08-13 2019-08-13 Emergency Sylvieky, [facility] 1.2.318.135 [id number] Univers 18:39:45 20:15:00 Sean Trevizo 350.1.13.10 ity of [place] [phone] [facility] [address] [place] 2019-08-13 2019-08-13 Orders Doctor JUAN 1.2.840.114 [id number] Univers 00:00:00 00:00:00 Only Unassigned, JARROD 350.1.13.10 ity of [place] [facility] 4.2.7.2.686 [place] as [phone] [facility] [address] 2019-08-01 2019-08-01 Telephone [facility] 1.2.840.114 [id number] Univers 00:00:00 00:00:00 Grant Trevizo 350.1.13.10 ity of [place] [phone] Nh dical nal [address] [facility] 2019-07-25 2019-07-25 Outpatient R NATALY [facility] [id number] Univers 15:00:00 15:00:00 TEO ity of [facility] 2019-07-16 2019-07-16 Telephone [facility] 1.2.276.559 [id number] Univers 00:00:00 00:00:00 Tico Trevizo 350.1.13.10 i ty [place] [phone] Nh dical nal [address] Building 2019-07-11 2019-07-11 Telephone [facility] 1.2.140.132 [id number] Univers 00:00:00 00:00:00 Tico Armenta 350.1.13.10 it y of [place] 4.2.7.2.686 [place] Professio [phone] Nh dical nal [address] Office Building One 2019-06-20 2019-06-20 Telephone [facility] 1.2.310.931 [id number] Univers 00:00:00 00:00:00 Tico [facility] 350.1.13.10 it y of [place] 4.2.7.2.686 [place] Professio [phone] Nh dical nal 044 [place] Office Building One 2019-06-16 2019-06-16 Telephone [facility] 1.2.840.114 [id number] Univers 00:00:00 00:00:00 Grant Trevizo 350.1.13.10 ity of [place].2.[place] [phone] Nh dical nal 092 [facility] 2019-06-14 2019-06-14 Outpatient R [facility] [id number] Univers 12:43:28 23:59:00 KYA ity o f [facility] 2019-06-14 2019-06-14 [facility] 1.2.840.114 [id number] Univers 12:30:00 23:59:00 Encounter Kya Trevizo 350.1.13.10 ity of [place].2.7.2.[place] [phone] [facility] [address] [place] 2019-06-14 2019-06-14 Orders Doctor JUAN 1.2.840.114 [id number] Univers 00:00:00 00:00:00 Only Unassigned, JARROD 350.1.13.10 ity of [place] [facility] 4.2.7.2.686 [place] as [phone] [facility] [address] [place] 2019-06-13 2019-06-13 Refill [facility] 1.2.840.114 [id number] Univers 00:00:00 00:00:00 Jose Trevizo 350.1.13.10 i ty of [place].2.[place] [phone] Nh dical nal 134 [facility] 2019-06-11 2019-06-11 Patient Doctor JUAN 1.2.840.114 [id number] Univers 00:00:00 00:00:00 Secure Msg Unassigned, JARROD 350.1.13.10 ity of [place] [facility] 4.2.7.2.686 [place] as [phone] [address] 2019-06-09 2019-06-09 Telephone Naseem [facility] 1.2.840.114 [id number] Univers 00:00:00 00:00:00 Grant Koo [place] 350.1.13.10 ity of [place].2.[place] [phone] Nh dical nal 092 [facility] 2019-06-06 2019-06-06 Outpatient R NASEEM, GRANT [facility] [id number] Univers 10:40:00 10:40:00 GRANT GUSMAN ity [facility] 2019-06-06 2019-06-06 Telephone [facility] 1.2.051.323 [id number] Univers 00:00:00 00:00:00 [facility] 350.1.13.10 it y of [place] 4.2.7.2.686 [place] as Professio [phone] Nh dical nal 044 [place] Office [facility] 2019-06-06 2019-06-06 Patient [facility] 1.2.840.114 [id number] Univers 00:00:00 00:00:00 Secure Msg [facility] 350.1.13.10 ity of [place] 4.2.7.2.686 [place] as Professio [phone] Nh dical nal 044 [place] Office [facility] 2019-06-06 2019-06-06 Patient Doctor [facility] 1.2.840.114 [id number] Univers 00:00:00 00:00:00 Secure Msg Unassigned, Health 350.1.13.10 [place] 4.2.7.2.686 [place] as Professio [phone] Nh dical nal 044 [place] Office [facility] 2019-06-05 2019-06-05 Refill [facility] 1.2.840.114 [id number] Univers 00:00:00 00:00:00 [facility] 350.1.13.10 it y of [place] 4.2.7.2.686 [place] as Professio [phone] Nh dical nal 044 [place] Office [facility] 2019-06-03 2019-06-03 Patient Doctor JUAN 1.2.840.114 [id number] Univers 00:00:00 00:00:00 Secure Msg Unassigned, JARROD 350.1.13.10 ity of [place] [facility] 4.2.7.2.686 [place] as [phone] [address] 2019-06-02 2019-06-02 Office Alon [facility] 1.2.840.114 [id number] Univers 11:27:23 13:40:24 Visit Tico Armenta 350.1.13.10 it y of [place] 4.2.7.2.686 [place] as Professio [phone] Nh dical nal 044 [place] Office [facility] One 2019-06-02 2019-06-02 Office Carmen Mcclain [facility] 1.2.840.114 [id number] Univers 10:14:12 10:29:12 Visit Olya Holloway [facility] 350.1.13.10 ity of Surgical 4.2.7.2.686 [place] as Specialti [phone] Nh dical es 198 [facility] 2019-06-02 2019-06-02 Outpatient R AMIE [facility] [id number] Univers 10:15:00 10:15:00 OLYA ity [facility] 2019-06-02 2019-06-02 Nurse JUAN Patel 1.2.840.114 [id number] Univers 00:00:00 00:00:00 Triage Catlatonia GARAY 350.1.13.10 i ty of HOSPITAL 4.2.7.2.686 [place] as [phone] [address] 2019-05-31 2019-05-31 Telephone Naseem [facility] 1.2.840.114 [id number] Univers 00:00:00 00:00:00 Grant Andersonton 350.1.13.10 ity of [place].2.[place] [phone] Nh dical nal 092 [facility] 2019-05-24 2019-05-24 Patient Doctor JUAN 1.2.840.114 [id number] Univers 00:00:00 00:00:00 Secure Msg Unassigned, JARROD 350.1.13.10 ity of [place] [facility] 4.2.7.2.686 [place] as [phone] [facility] [address] 2019-05-17 2019-05-17 Patient Orestes [facility] 1.2.840.114 [id number] Univers 00:00:00 00:00:[address] [facility] 350.1.13.10 i ty of [place] 4.2.7.2.686 [place] as Professio [phone] [address] Office Building One 2019-05-11 2019-05-11 Outpatient R [facility] [id number] Univers 13:40:00 14:48:32 PETER ity of [facility] 2019-05-11 2019-05-11 Office [facility] 1.2.840.114 [id number] Univers 13:32:39 14:48:32 Visit Maxiums Trevizo 350.1.13.10 i ty of [place].2.7.2.[place] [phone] [address] 2019-04-26 2019-04-26 Telephone [facility] 1.2.840.114 [id number] Univers 00:00:00 00:00:00 Peter [place] 350.1.13.10 i ty of [place] 4.2.7.2.[place] [phone] [address] 2019-04-25 2019-04-25 Letter Neurology [facility] 1.2.840.114 [id number] Univers 00:00:00 00:00:00 (Out) HEALTH 350.1.13.10 i ty of CLINICS 4[place]2.7.2.[place] [phone] [facility] [address] 2019-04-24 2019-04-24 [facility] 1.2.840.114 [id number] Univers 12:05:00 15:15:00 Encounter Olya Trevzio 350.1.13.10 ity of [place] 4.2.7.2.[place] Surgical [phone] [facility] [address] 2019-04-24 2019-04-24 Transition Kalyani Tran 1.2.840.114 [id number] Univers 00:00:00 00:00:00 of Care Inocencio Edgary 350.1.13.10 ity of [place] 4.2.7.2.[place] [phone] [facility] [address] [place] 2019-04-18 2019-04-21 Hospital Mao Rodrigues 1.2.840.114 [id number] Univers 08:40:00 13:03:00 Encounter S [place] 350.1.13.10 ity of Hospital 4.2.7.2.686 [place] as [phone] [facility] [address] [place] 2019-04-19 2019-04-19 Telephone Chloe Reese [facility] 1.2.840.114 [id number] Univers 00:00:00 00:00:00 Cam Joseline 350.1.13.10 i ty of [place] 4.2.7.2.[place] [phone] Nh dical nal 134 [facility] 2019-04-18 2019-04-18 Outpatient R FAWADYAMILMAO [facility] [id number] Univers 08:30:00 08:30:00 ity of [facility] 2019-04-14 2019-04-14 Office [facility] 1.2.840.114 [id number] Univers 15:40:06 16:24:42 Visit [facility] 350.1.13.10 it y of [place] 4.2.7.2.686 [place] as Professio [phone] Nh dical nal 044 [place] Office [facility] 2019-04-14 2019-04-14 Patient Cyn [facility] 1.2.840.114 [id number] Univers 00:00:00 00:00:00 Outreach Glenys [facility] 350.1.13.10 ity of [place] 4.2.7.2.686 [place] as Professio [phone] Nh dical nal 044 [place] Office [facility] 2019-04-14 2019-04-14 Telephone Amie [facility] 1.2.840.114 [id number] Univers 00:00:00 00:00:00 Olya [facility] 350.1.13.10 it y of Surgical 4.2.7.2.686 [place] as Specialti [phone] Nh dical es 198 [facility] 2019-04-14 2019-04-14 Telephone [facility] 1.2.840.114 [id number] Univers 00:00:00 00:00:00 Maximus Trevizo 350.1.13.10 i ty of [place] 4.2.7.2.[place] [phone] Nh dical nal 044 [facility] 2019-04-13 2019-04-13 Refill [facility] 1.2.099.121 [id number] Univers 00:00:00 00:00:00 Teo Joseline 350.1.13.10 i ty of [place] 4.2.7.2.[place] [phone] Nh dical nal 134 [facility] 2019-04-07 2019-04-07 Office NeftalygaylastephanSANT[facility] 1.2.840.114 [id number] Univers 07:44:27 09:37:11 Visit Maximus Trevizo 350.1.13.10 i ty of [place] 4.2.7.2.686 [place] [phone] Nh dical nal 044 [facility] 2019-04-07 2019-04-07 [facility] 1.2.840.114 [id number] Univers 00:00:00 00:00:00 Maximus Trevizo 350.1.13.10 i ty of [place] 4.2.7.2.[place] [phone] Nh dical nal 044 [facility] 2019-04-03 2019-04-03 Outpatient O AMIE [facility] [id number] Univers 16:17:03 23:59:00 OLYA ellis [facility] 2018-12-09 2018-12-09 Telephone Dunia [facility] 1.2.840.114 [id number] Univers 00:00:00 00:00:00 Jose Trevizo 350.1.13.10 i ty of [place] 4.2.7.2.[place] [phone] Nh dical nal 134 [facility] 2018-11-29 2018-11-29 Chloe Atkins [facility] 1.2.551.987 [id number] Univers 16:02:20 16:42:16 Raleigh Trevizo 350.1.13.10 ity of Visit [place] 4.2.7.2.[place] [phone] [address] 2018-11-25 2018-11-25 Emergency Elijah [facility] 1.2.559.072 [id number] Univers 21:54:39 22:48:00 Ranjit Trevizo 350.1.13.10 i ty of [place] 4.2.7.2.686 [place] [phone] [facility] [address] [place] 2018-11-25 2018-11-25 Telephone Chloe Reese [facility] 1.2.840.114 [id number] Univers 00:00:00 00:00:00 Raleigh Trevizo 350.1.13.10 i ty of [place] 4.2.7.2.[place] [phone] [address] 2018-11-25 2018-11-25 Nurse JUAN Elise 1.2.840.114 [id number] Univers 00:00:00 00:00:00 Triage Jackelin JARROD 350.1.13.10 it y of HOSPITAL 4.2.7.2.686 [place] as [phone] [facility] [address] [place] 2018-11-24 2018-11-24 Patient Kalyani Garcia 1.2.840.114 [id number] Univers 00:00:00 00:00:00 Outreach Roseanne Wills 350.1.13.10 ity of [place].2.7.2.[place] [phone] [facility] [address] [place] 2018-11-24 2018-11-24 Telephone Dunia [facility] 1.2.840.114 [id number] Univers 00:00:00 00:00:00 Jose Trevizo 350.1.13.10 i ty of [place] 4.2.7.2.[place] [phone] [address] 2018-11-23 2018-11-23 Emergency Singer [facility] 1.2.457.258 [id number] Univers 13:27:49 19:20:00 Darryn Joseline 350.1.13.10 i ty of [place] 4.2.7.2.[place] [phone] [place] 889094 [place] 2018-11-23 2018-11-23 Telephone [facility] 1.2.840.114 [id number] Univers 00:00:00 00:00:00 Jose Trevizo 350.1.13.10 i ty of [place]2.[place].2.[place] [phone] [facility] 134 [facility] 2018-11-20 2018-11-22 Hospital [facility] 1.2.840.114 [id number] Univers 15:12:00 19:15:00 Encounter Jsoe Trevizo 350.1.13.10 ity [place].7.2.[place] [phone] [place] [id number] [place] 2018-11-20 2018-11-20 Nurse JUAN Cortes 1.2.840.114 [id number] Univers 00:00:00 00:00:00 Triage Renettazandra GARAY 350.1.13.10 it y of HOSPITAL 4.2.7.2.686 [place] as [phone] [facility] 019 [place] 2018-11-20 2018-11-20 Orders Doctor JUAN 1.2.840.114 [id number] Univers 00:00:00 00:00:00 Only Unassigned, JARROD 350.1.13.10 ity of [place] [id number] [place] as [phone] [facility] 009 [place] 2018-11-18 2018-11-18 Routine [facility] 1.2.840.114 [id number] Univers 10:21:53 11:38:24 Jose Trevizo 350.1.13.10 ity of [place] [phone] [facility] 134 [facility] 2018-11-14 2018-11-17 Routine [facility] 1.2.840.114 [id number] Univers 10:03:04 13:42:26 Jose Trevizo 350.1.13.10 ity of [place] [phone] Nh dical nal 134 [facility] 2018-11-17 2018-11-17 Routine [facility] 1.2.840.114 [id number] Univers 12:09:08 13:31:39 Jose Trevizo 350.1.13.10 ity of [place].2.[place] [phone] Nh dical nal 134 [facility] 2018-11-14 2018-11-14 Hospital Chloe Reese [facility] 1.2.840.114 [id number] Univers 21:18:00 22:45:00 Encounter Raleigh Trevizo 350.1.13.10 ity [place] [phone] [facility] 083 [place] 2018-11-14 2018-11-14 [facility] 1.2.840.114 [id number] Univers 11:26:24 21:17:00 Encounter Jose Trevizo 350.1.13.10 ity [place] [phone] [facility] 806 [place] 2018-11-14 2018-11-14 Orders Doctor MARTINEZ 1.2.840.114 [id number] Univers 00:00:00 00:00:00 Only Unassigned, JARROD 350.1.13.10 ity of [place] [facility] 4.2.7.2.686 [place] as [phone] [facility] 009 [place] 2018-11-14 2018-11-14 Nurse JUAN Santos 1.2.840.114 [id number] Univers 00:00:00 00:00:00 Triage Rosy S JARROD 350.1.13.10 ity of HOSPITAL 4.2.7.2.686 [place] as [phone] [facility] [address] [place] 2018-11-14 2018-11-14 Telephone [facility] 1.2.840.114 [id number] Univers 00:00:00 00:00:00 Jose Trevizo 350.1.13.10 i [place] [phone] [employer] [facility] [address] [facility] 2018-11-10 2018-11-11 [facility] 1.2.840.114 [id number] Univers 14:24:00 17:00:00 Encounter Jose Trevizo 350.1.13.10 it[place] [phone] [facility] [address] [place] [place] 2018-11-11 2018-11-11 Case [facility] 1.2.840.114 [id number] Univers 00:00:00 00:00:00 Management Jose Trevizo 350.1.13.10 [place] [phone] [address] 2018-11-10 2018-11-10 [facility] 1.2.840.114 [id number] Univers 10:54:59 14:23:00 Encounter Jose Trevizo 350.1.13.10 ity [place] [phone] [facility] [address] [place] [place] 2018-11-10 2018-11-10 Routine [facility] 1.2.840.114 [id number] [facility] 12:45:49 13:00:49 Jose Trevizo 350.1.13.10 ity of [place] [phone] [address] 2018-11-07 2018-11-07 Patient ROSEMARY BeattyIT 1.2.280.199 [id number] Univers 00:00:00 00:00:00 Secure Ms Gabby R Weplay 350.1.13.10 ity of [place] [phone] [facility] [address] [place] 2018-11-07 2018-11-07 Telephone [facility] 1.2.840.114 [id number] Univers 00:00:00 00:00:00 Jose Trevizo 350.1.13.10 i ty [place] [phone] Nh dical nal [address] 2018-11-05 2018-11-05 Nurse JUAN Santos 1.2.840.114 [id number] Univers 00:00:00 00:00:00 Triage Rosy GARAY 350.1.13.10 ity of HOSPITAL 4.2.7.2.686 [place] [phone] [facility] [address] 2018-11-03 2018-11-03 [facility] 1.2.840.114 [id number] Univers 10:55:07 23:59:00 Encounter Jose Trevizo 350.1.13.10 ity [place] [phone] [facility] [address] 2018-11-03 2018-11-03 Routine [facility] 1.2.840.114 [id number] Univers 13:54:15 16:42:19 Jose Trevizo 350.1.13.10 ity [place] [phone] Nh dical nal 134 [facility] 2018-11-01 2018-11-01 Vaccine Specialist 1, [facility] Room [facility]ERSIT 1 .2.840.114 [id number] [facility] 13:11:27 15:24:28 Visit Tri Bud R [facility] 350.1.13.10 ity [place] [phone] [facility] [address] 2018-11-01 2018-11-01 Patient Rogerio [facility] 1.2.143.412 [id number] Univers 00:00:00 00:00:00 Secure Msg Gabby R Y HEALTH 350.1.13.10 it[place] [phone] [facility] [address] 2018-11-01 2018-11-01 Telephone [facility] 1.2.840.114 [id number] Univers 00:00:00 00:00:00 Jose Trevizo 350.1.13.10 i ty [place] [phone] [facility] 2018-10-31 2018-10-31 [facility] Paulie, [facility] 1.2.840.114 [id number] Univers 10:58:00 12:45:00 Encounter Belem Trevizo 350.1.13.10 ity of [place] 4.2.7.2.686 [phone] [address] 2018-10-28 2018-10-28 Routine [facility] 1.2.840.114 [id number] Univers 08:14:34 15:50:40 Belem Trevizo 350.1.13.10 ity of [place] [facility] [phone] [facility] [address] [facility] 2018-10-28 2018-10-28 [facility] Chloe Reese [facility] 1.2.840.114 [id number] Univers 10:33:30 14:55:00 Encounter Belem Apodaca 350.1.13.1 0 ity of [place] 4.2.7.2.686 [facility] [phone] [address] 2018-10-28 2018-10-28 Patient Doctor JUAN 1.2.840.114 [id number] Univers 00:00:00 00:00:00 Secure Msg Unassigned, JARROD 350.1.13.10 ity of [place] [facility] 4.2.7.2.686 [place] [phone] [facility] [address] [place] 2018-10-24 2018-10-25 Routine Faculty, Moisés Parra [facility] 1.2 .840.114 [id number] Univers 10:00:19 11:32:24 Brandee Odom PHYSICIAN PRESIDENT 350.1.1 3.10 ity of Visit [facility] 4.2.7.2.686 [place] as MATERNAL [phone] Med ical & CHILD [address] [facility] [place] [place] 2018-10-25 2018-10-25 Patient BeattyHAY 1.2.670.485 [id number] Univers 00:00:00 00:00:00 Secure Msg Gabby R Y HEALTH 350.1.13.10 ity of [place] [phone] [facility] [address] [place] [place] 2018-10-25 2018-10-25 Orders Doctor JUAN 1.2.840.114 [id number] Univers 00:00:00 00:00:00 Only Unassigned, JARROD 350.1.13.10 ity of [place] [facility] 4.2.7.2.686 [place] [phone] [facility] [address] 2018-10-24 2018-10-24 Hospital ReeseShanaen [facility] 1.2.840.114 [id number] Univers 13:33:00 15:30:00 Encounter Raleigh Trevizo 350.1.13.10 ity of [place] [phone] [facility] [address] [place] [place] 2018-10-24 2018-10-24 Outpatient BRANDEE MEDRANO [facility] [id number] Univers 10:00:00 11:51:01 ity of [facility] 2018-10-24 2018-10-24 [facility] 1.2.840.114 [id number] Univers 00:00:00 00:00:00 Jose Trevizo 350.1.13.10 i ty [place] [phone] [facility] [address] [facility] 2018-10-24 2018-10-24 [facility]phone [facility] 1.2.840.114 [id number] Univers 00:00:00 00:00:00 Grant Trevizo 350.1.13.10 ity [place] [phone] [facility] [address] [facility] 2018-10-21 2018-10-21 Vaccine Specialist 1, Adc Lab [facility] 1.2.840.114 [id number] Univers 16:25:06 16:40:06 Visit Chloe Reese Raleigh Trevizo 350.1.13.10 ity of [place] [phone] [facility] [address] 2018-10-21 2018-10-21 [facility] 1.2.840.114 [id number] Univers 14:13:39 16:02:12 Belem Joseline 350.1.13.10 ity of [place] [phone] Nh dical nal [address] [facility] 2018-10-21 2018-10-21 Orders Doctor JUAN 1.2.840.114 [id number] Univers 00:00:00 00:00:00 Only Unassigned, JARROD 350.1.13.10 ity of [place] [facility] 4.2.7.2.686 [place] [phone] [facility] [address] 2018-10-20 2018-10-20 Hospital [facility] 1.2.840.114 [id number] Univers 10:59:20 23:59:00 Encounter Jose Joseline 350.1.13.10 ity of [place] [phone] [facility] [address] [place] 2018-10-12 2018-10-12 Patient Doctor JUAN 1.2.840.114 [id number] Univers 00:00:00 00:00:00 Secure Msg Unassigned, JARROD 350.1.13.10 ity [place] [facility] 4.2.7.2.686 [place] [phone] [facility] [address] [place] 2018-09-30 2018-09-30 Office [facility] 1.2.527.800 [id number] [facility] 14:06:24 14:55:33 Visit Chris Wild Joseline 350.1.13.10 i ty [place] [phone] Nh dical nal [address] [facility] 2018-09-14 2018-09-14 Outpatient R AMIE [facility] [id number] [facility] 13:54:55 13:59:00 OLYA ellis [facility] Results Test Description Test Time Test Comments Results Result Comments Source ACETAMINOPHEN 2022-03-11 00:28:27 Test Item Value Reference Range Interpretation Comme nts ACETAMINOP (test code = 5732096139) 10.0-30.0 L ADRIENNE (test code = ADRIENNE) Toxic: Greater than 200 ug/mL @ 4 hour post ingestion or greater than 50 ug/mL @ 12 hour post ingestion Lab Interpretation (test code = Abnormal 11698-8) [facility] 00:20:44 ALCOHOL<10mg/dL03/10/2022 6:20 PM [facility]<10 [id number] Toxic>100 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 Analgesic and Antipyretic Use ? 20- 100 mg/L ? ? Anti-Inflammatory Use ? 100-250 mg/L Toxic Range: ? Greater than 300 mg/LUnHouston Methodist The Woodlands HospitalCOMP. METABOLIC PANEL (27052)2022-03-11 00:17:50 Test Item Value Reference Range Interpretation Comments NA (test code = 138 mmol/L 135-145 2834741711) K (test code = 4.2 mmol/L 3.5-5.0 4324860145) CL (test code = 102 mmol/L 98-108 7008281459) CO2 TOTAL (test code = 32 mmol/L 23-31 H 6205957110) AGAP (test code = 2-16 6750573523) BUN (test code = 14 mg/dL 7-23 3088389289) GLUCOSE (test code = 57 mg/dL 70-110 L 0747320883) CREATININE (test code = 0.85 mg/dL 0.50-1.04 9884388364) TOTAL BILI (test code = 0.3 mg/dL 0.1-1.6 9187739061) CALCIUM (test code = 9.8 mg/dL 8.6-10.6 6694747949) T PROTEIN (test code = 6.8 g/dL 6.3-8.2 6091302387) ALBUMIN (test code = 4.2 g/dL 3.5-5.0 0405362004) ALK PHOS (test code = 66 U/L 34-122 1003700056) ALTv (test code = 12 U/L 5-35 1742-6) AST(SGOT) (test code = 15 U/L 13-40 8517220196) eGFR (test code = mL/min/1.73m2 0621380105) ADRIENNE (test code = ADRIENNE) Association of [...] tests). Lab Interpretation Abnormal (test code = 36636-0) [facility] WITH [id number] 00:11:30 Test Item Value Reference Range Interpretation Comments WBC (test code = See_Comment [Automated 3234-2) message] The sy stem which generated this result transmitted reference range : 4.30 - 11.10 10*3/?L. The reference range was not used to interpret this result as normal/abnormal . RBC (test code = See_Comment [Automated 623-8) message] The sy stem which generated this [...] RDW-SD (test code = 48.5 fL 39.0-49.9 03801-7) RDW-CV (test code = 13.9 % 12.0-15.5 788-0) PLT (test code = See_Comment [Automated 777-3) message] The sy stem which generated this result transmitted reference range : 166 - 358 10*3/ ?L. The reference r paulina was not used to interpret this result as normal/abnormal . MPV (test code = 10.6 fL 9.5-12.9 97122-1) NRBC/100 WBC (test See_Comment [Automat ed code = 6534928112) message] The system which generated this result transmitted reference range : 0.0 - 10.0 /100 WBCs. The refer ence range was not u sed to interpret th is result as normal/abnormal . NRBC x10^3 (test code See_Comment [Auto mated = 8691334499) message] The s ystem which generated this result transmitted reference range : 10*3/?L. The reference range was not used to interpret this result as normal/abnormal . GRAN MAT (NEUT) % 62.2 % (test code = 770-8) IMM GRAN % (test code 0.30 % = 2791853140) LYMPH % (test code = 27.1 % 736-9) MONO % (test code = 7.8 % 5905-5) EOS % (test code = 1.5 % 713-8) BASO % (test code = 1.1 % 706-2) GRAN MAT x10^3(ANC) 4.56 10*3/uL 1.88-7.09 (test code = 9765202647) IMM GRAN x10^3 (test 0.00-0.06 code = 9671727363) LYMPH x10^3 (test code 1.99 10*3/uL 1.32-3.29 = 731-0) MONO x10^3 (test code 0.57 10*3/uL 0.33-0.92 = 742-7) EOS x10^3 (test code = 0.11 10*3/uL 0.03-0.39 711-2) BASO x10^3 (test code 0.08 10*3/uL 0.01-0.07 H = 704-7) Lab Interpretation Abnormal (test code = 85878-3) [facility] [id number] 23:46:00 Test Item Value Reference Range Interpretation Comments POCT PREG (test code = 1605) NEGATIVE On board controls acceptable with present C Line (test code = 3574) POCT PREG LOT # (test code = 3575) [id number] POCT PREG TEST DATE (test 06/27/2023 code = 3576) Lab Interpretation (test code = Normal 26397-8) [facility] URINALYSIS W SPECIFIC [id number] 16:50:00 Test Item Value Reference Range Interpretation Comments POCT U SP GRAV (test code = 1.020 mg/dl 1.005-1.025 3255) POCT PH U (test code = 3254) 6 mg/dl 5-8 POCT U LEUK EST (test code = + Negative - Negative 3) POCT U NIT (test code = 3262) [...] U APPEAR (test code = clear 3267) [facility] URINALYSIS W SPECIFIC [id number] 16:50:00 Test Item Value Reference Range Interpretation [...] U APPEAR (test code = clear 3267) [facility]"
[2022-08-17] MEDS ORDERED: ONDANSETRON 4 MG (ODT) TAB ONE (20:53)
[2022-08-17] MEDS ORDERED: MORPHINE 4 MG/ML SYR ONE (20:53)
[2022-08-17] MEDS ORDERED: LORAZEPAM 1 MG TABLET ONE (20:56)
--- NOTE | 2022-08-17 21:52 | RAD REPORT ---
EXAM DESCRIPTION: CT - Stone Protocol - 08/17/2022 9:34 pm CLINICAL HISTORY: Flank pain. low back pain, right hip pain COMPARISON: No comparisons TECHNIQUE: Axial images were obtained without oral or IV contrast. Lack of contrast limits solid org an and vascular assessment. The cjnqc-kf-cxdd spans the entirety of the system partially obscuring uppermost abdomen and lung bases. Coronal reformatted images were obtained and reviewed. All CT scans are performed using dose optimization technique as appropriate and may include automated exposure control or mA/KV adjustment according to patient size. FINDINGS: The lower lung salcedo are clear. Imaged portions of the liver and spleen show no suspicious findings on non-contrast imaging. The panc reas and adrenal glands are normal. No pathologic lymphadenopathy in the abdomen or pelvis. Small bilateral caliceal stones in both kidneys without hydronephrosis. No bowel obstruction, free air, free fluid or abscess. Normal appendix noted.Moderate stool is presen t throughout the colon. The L2 right transverse process shows nondisplaced fracture. IMPRESSION: Bilateral nephrolithiasis without hydronephrosis. Nondisplaced fracture right L2 transverse process, age undetermined.
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
[2022-08-17] MEDS ORDERED: KETOROLAC 30 MG/ML INJ ONE (23:25)
[2022-08-18 00:34] VITALS: TEMP 98.5; O2SAT 100
[2022-08-18 00:37] VITALS: BP 119/84
== END 2022-08-17 23:30 | disposition home or self-care (01) ==
LOC: ER 19:44
DX: S32.029A Unspecified fracture of second lumbar vertebra, initial encounter for closed fracture (principal); M54.31 Sciatica, right side; Z88.1 Allergy status to other antibiotic agents; Z88.5 Allergy status to narcotic agent
CPT/HCPCS: 76377; 74176; Q0162

== ENCOUNTER 2022-09-21 11:29 | Emergency (ER) | payer OTHER ==
--- OUTSIDE RECORDS SUMMARY | 2022-09-21 11:49 | XMS REPORT | Continuity of Care Document ---
:1980 Author Organization [facility] t Address [address] [facility] [address] [place] [address] Care Team Providers Name Role Phone Arik Benz MD Primary Care Physician [phone] ALY RYAN Attending Clinician Unavailable TEO INGRAM Attending Clinician Unavailable ARIK BENZ Attending Clinician Unavailable Arik Benz MD Attending Clinician Donna Lopez MD Attending Clinician [phone] Doctor Unassigned, Paac Ciinak Attending Clinician Unavailable DONNA LOPEZ Attending Clinician Unavailable Gema Cruz LMSW Attending Clinician Teo Ingram PA-C Attending Clinician Nurse, [facility] Attending Clinician Unavailable Unknown, Attending Attending Clinician Unavailable Abril Urias RN Attending Clinician Unavailable Lab, c Attending Clinician Unavailable Elle Owen MD Attending Clinician ERIC FERNANDEZ Attending Clinician Unavailable Eric Fernandez MD Attending Clinician [phone] ADUMELLE L Attending Clinician Unavailable Avinash ANDRES, Emilia M Attending Clinician Unavailable Roby MELGAR, Helen Attending Clinician Unavailable KEITH YI Attending Clinician Unavailable Darryn Owusu DO Attending Clinician Keith Yi MD Attending Clinician Ubaldo RIGGINS, Onel Attending Clinician KIZZY SANTOS Attending Clinician Unavailable KIZZY SANTOS Attending Clinician Unavailable PATRICIA NEWELL Attending Clinician Unavailable [place] ACNPatricia Coronado Attending Clinician OLIVA STEPHENS Attending Clinician Unavailable CARMEN MCCLAIN Attending Clinician Unavailable Carmen Carlin Attending Clinician OLYA HOLLOWAY Attending Clinician Unavailable Lab, Ang - Db Attending Clinician Unavailable Chet MELGAR, Trinidad Jones Attending Clinician YOKO SPRING Attending Clinician Unavailable Sean Meléndez MD Attending Clinician Michelle Rivera MD Attending Clinician Yamila RIGGINS, Aurora Attending Clinician Annette RIGGINS, Yoko Attending Clinician Juma Mcdaniels MD Attending Clinician JUMA MCDANIELS Attending Clinician Unavailable Davar_P Attending Clinician Unavailable Oliva Stephens MD Attending Clinician Dakotah Darnell RN Attending Clinician Unavailable Subhash Smith MD Attending Clinician Renetta Cortes RN Attending Clinician Unavailable CHLOE REESE Attending Clinician Unavailable Chloe Reese MD Attending Clinician Only, Ang Db Test Attending Clinician Unavailable Violetta Clay RN Attending Clinician Unavailable Ayaka Palacios RN Attending Clinician Unavailable Ultrasound, Ang-Mfm Attending Clinician Unavailable Adam Reich MD Attending Clinician Karina Chun RN Attending Clinician Unavailable 2, [facility] Attending Clinician Unavailable Fellow, [facility] Attending Clinician Unavailable Shira Chaudhary MD M Attending Clinician Pedro Luis Couch MD, Cade Attending Clinician [phone] Myrtle Garcia Attending Clinician UNKNOWN, ATTENDING Attending Clinician Unavailable JAIDEN ROLON Attending Clinician Unavailable Rickey RN, Martha Attending Clinician Unavailable Clinic, [facility] Neurology Continuity Attending Clinician Unavail able Analilia Leal Attending Clinician Unavailable Diego BASSP, Tita Gasca Attending Clinician Jonny RIGGINS, Migdalia Blue Attending Clinician Tom MELGAR, Rosy Marcial Attending Clinician Unavailable MAO RODRIGUES Attending Clinician Unavailable Irina Guzman RN, Teo Attending Clinician Unavailable Jorge MELGAR, Cat De Paz Attending Clinician Unavailable CALEB CORADO Attending Clinician Unavailable IAIN BRODY Attending Clinician Unavailable ARIK CARDONA III Attending Clinician Unavailable Soni RIGGINS, Grant Koo Attending Clinician Juma Almendarez Attending Clinician Shelby RIGGINS, Aly Marcial Attending Clinician Pob, Ad[facility] Lab Main Attending Clinician Unavailable Only, Adc Test Attending Clinician Unavailable Lab, Adc Fam Pob I Attending Clinician Unavailable Jf RIGGINS, Maximus Attending Clinician Justin Oconnor MD Attending Clinician Asplin_B Attending Clinician Unavailable JUSTIN OCONNOR Attending Clinician Unavailable Edna Dubois Attending Clinician Leroy Christine Attending Clinician Beth Kang MD Attending Clinician Tico Gutierres Attending Clinician Jane Chase Attending Clinician Care, Provider 12 - Adult Urgent Attending Clinician Unavail able Provider, [facility] Attending Clinician Unavailable TICO CHI Attending Clinician Unavailable KITA SANTIAGO Attending Clinician Unavailable Pob1, [facility] Attending Clinician Unavailable Aparna Reed PA-C Attending Clinician GRANT SHAFER Attending Clinician Unavailable GRANT SHAFER Attending Clinician Unavailable MURALI HOLLOWAY Attending Clinician Unavailable KYA YANG Attending Clinician Unavailable Kya Yang MD Attending Clinician Jose Duque MD Attending Clinician Olya Holloway MD Attending Clinician Renetta Carlisle Attending Clinician Unavailable MAXIMUS RHOADES Attending Clinician Unavailable Neurology Attending Clinician Unavailable Inocencio Tran RN Attending Clinician Unavailable Mao Rodrigues MD Attending Clinician Cyn WOOTENSWGlenys Attending Clinician Ranjit Ang Attending Clinician Jackelin Elise RN Attending Clinician Unavailable Roseanne Garcia RN Attending Clinician Unavailable Rogerio MELGAR, Gabby Gasca Attending Clinician Unavailable 1, [facility] Usg Room Attending Clinician Unavailable Bud Bartlett Attending Clinician Belem Apodaca MD Attending Clinician Faculty, [facility] Attending Clinician Unavailable Brandee Odom MD Attending [...] Clinician Unavailable Juma Mcdaniels MD Admitting Clinician Hugh RIGGINS, Chloe Storey Admitting Clinician Jonny RIGGINS, Migdalia F Admitting Clinician Shelby RIGGINS, Aly S Admitting Clinician Asplin_B Admitting Clinician Unavailable KYA YANG Admitting Clinician Unavailable Amie RIGGINS, Olya Maria Admitting Clinician Ravi RIGGINS, aMo Marcial Admitting Clinician MAO RODRIGUES Admitting Clinician Unavailable Dunia RIGGINS, Jose Admitting Clinician Paulie RIGGINS, Belem Admitting Clinician OLYA HOLLOWAY Admitting Clinician Unavailable Payers Payer Name Policy Type Policy Number Effective Date Expiration Date Aggie baker [facility] [id number] 2018 00:00:00 [facility] [id number] ([facility]) Problems Condition Condition Condition Status Onset Resolution Last Treating Co mments Source Name Details Category Date Date Treatment Clinician Date Attention Attention Disease Active Uni vers deficit deficit 3-13 ity of disorder disorder 00:00: [place] predominan predominan 00 Me dical t t Branch inattentiv inattentiv e type e type COVID-19 COVID-19 Disease Active Unive rs virus virus 2-07 [facility] Branch Gestationa Gestationa Disease Active 2020-03 U nivers l l 2-27 [place] hypertens[place] third 00 [facility] trimester trimester Bran ch 37 weeks 37 weeks Disease Active 2020-03 Unive rs gestation gestation 2-27 ity of of of 00:00: [place] 00 [facility] Non-reassu Non-reassu Disease Active 2020-03 U nivers ring ring 2-26 [place] of [place] Medical monitoring monitoring Br anch tracing tracing Single Single Disease Active 2020-03 Univers liveborn, liveborn, 2-26 ity of born in born in 00:00: [facility], 00 [facility] delivered delivered Bran ch by vaginal by vaginal delivery delivery Gastroente Gastroente Disease Active 2020-03 U nivers ritis ritis 2- ity of 00:00: [place] Medical Branch Disease Active 2020-03 Univers uterine uterine 2- it[place] of contractio [place]io [place] Medical third third Branch trimester, trimester, antepartum antepartum Cervical Cervical Disease Active Unive rs spondylosi spondylosi 8-31 it y of s s 00:00: [place] 00 Medical Branch History of History of Disease Active U nivers pyelonephr pyelonephr 7-02 it y of itis itis 00:00: [place] during during 00 Medical Bran ch 36 weeks 36 weeks Disease Active Unive rs gestation gestation 6-13 ity of of of 00:00: [place] 00 [facility] Branch High risk High risk Disease Active Uni vers , , 6- it y of multigravi multigravi [place] of 00 Medical advanced advanced Branch maternal maternal age in age in third third trimester trimester 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 2-13 it y of ia ia 00:00: [place] 00 Medical Branch Seizure Seizure Disease Active 2020-0 Univers disorder disorder 1-21 ity of 00:00: [place] 00 Medical Branch Anxiety Anxiety Disease Active 2020-0 Univers 1-10 ity of 00:00: [place] 00 Medical Branch Gastroesop Gastroesop Disease Active 2020-0 U seraers hageal hageal 1-10 ity of reflux reflux 00:00: [place] disease disease 00 Medical without without Branch esophagiti esophagiti s s Nausea and Nausea and Disease Active 2020-0 U nivers vomiting vomiting 1-10 ity of in in 00:00: [place] 00 [facility] Branch Migraine Migraine Disease Active 2019- Unive rs with aura with aura 1-10 ity of and and 00:00: [place] without without 00 Medical status status Branch migrainosu migrainosu s, not s, not intractabl intractabl e e Epilepsy Epilepsy Disease Active 2019-0 Unive rs associated associated 1-10 it y [...] of dism dism 00:00: g of this [place] 00 note Medical might be Branch different from the original. Followed by endocrino logy Ganglion Ganglion Disease Active Overview: Un [place] cyst cyst 09-14 Formattin ity of 00:00: g of this [place] 00 note Medical might be Branch different from the original. 09/14/18 - seen by Dr. Holloway. Plan to have it excised pp. Positive Positive Disease Active Overview: Un [place] urine drug urine drug 08-25 Formattin ity of screen screen 00:00: g of this [place] 00 note Medical might be Branch different [...] of , , 00:00: g of this [place] antepartum antepartum 00 note Me dical might be Branch different from the original. 08/24/18 - hypothyro idism, Synthroid 88 mcg. TSH Q8-10 weeks if normal, otherwise 3weeks after dose adjustmen ts. 08/24/18 - TSH4.05, FT4 0.85. Increase Synthroid to 112 mcg. Repeat TFTs in 3 weeks. Maternal Maternal Disease Active Unive rs obesity, obesity, 5-29 ity of ante[place] Allergies, Adverse Reactions, Alerts Allergy Allergy Status [...] U nivers es ty to See comments 104 a child ity of adverse 00:00: does not [place] reaction 00 know Medical s reaction Branch QUINOLON Drug Active Unknown-Cmnt Un mayank ES Class 1-04 ity of 00:00: [place] [facility] Social History Social Habit Start Date Stop Date Quantity Comments Source Exposure to 2022-08-11 2022-08-21 Not sure [facility] SARS-CoV-2 00:00:00 12:22:00 [facility] (event) [place] Alcohol intake 2022-08-21 2022-08-21 Ex-drinker [facility] 00:00:00 00:00:00 (finding) [facility] [place] [place] Tobacco Comment 2022-04-30 2022-04-30 N/A Universit y of 00:00:00 00:00:[address] [facility] Tobacco use and 2022-04-30 2022-04-30 Smokeless tobacco Un iversity of exposure 00:00:00 00:00:00 non-user [facility] [place] Sex Ass[birth year] At [birth year] Universit y of 00:00:00 00:00:[address] [facility] [place] Smoking Status Start Date Stop Date Source Never smoked tobacco [facility] [place] Medications Ordered Filled Start Stop Current Ordering Indication Dosage Frequency Signature Comments Components Source Medication Medication Date Date Medication? Clinician (SIG) Name Name HYDROcodone Yes 4647 1{tbl} Take 1 Un mayank -acetaminop 6-21 tablet by ity of jaylin ([employer]) 00:00: mouth [place] 7.5-325 mg 00 every 8 Medica l per tablet (eight) Branch hours as needed for Pain. Indication s: acute pain HYDROcodone 2023-0 Yes 4647 1{tbl} Take 1 Un mayank -acetaminop 6-14 tablet by ity of hen ([employer]) 00:00: mouth [place] 7.5-325 mg 00 every 8 Medica l per tablet (eight) Branch hours as needed for Pain. Indication s: acute pain dextroamphe 2023-0 Yes [id number] 20mg Take 1 Univers tamine-amph 6-07 tablet by ity of etamine 00:00: mouth in [place] (ADDERALL) 00 the Medical 20 mg morning Branch tablet and 1 tablet at noon and 1 tablet in the evening. HYDROcodone 2023-0 Yes [id number] 1{tbl} Take 1 Un mayank -acetaminop 6-07 tablet by ity of hen ([employer]) 00:00: mouth [place] 7.5-325 mg 00 every 8 Medica l per tablet (eight) Branch hours as needed for Pain. Indication s: acute pain dextroamphe 2023-0 Yes [id number] 20mg Take 1 Univers tamine-amph 6-07 tablet by ity of etamine 00:00: mouth in [place] (ADDERALL) 00 the Medical 20 mg morning Branch tablet and 1 tablet at noon and 1 tablet in the evening. HYDROcodone 2023-0 Yes [id number] 1{tbl} Take 1 Un mayank -acetaminop 6-07 tablet by ity of hen ([employer]) 00:00: mouth [place] 7.5-325 mg 00 every 8 Medica l per tablet (eight) Branch hours as needed for Pain. Indication s: acute pain dextroamphe 2023-0 Yes [id number] 20mg Take 1 Univers tamine-amph 6-07 tablet by ity of etamine 00:00: mouth in [place] (ADDERALL) 00 the Medical 20 mg morning Branch tablet and 1 tablet at noon and 1 tablet in the evening. HYDROcodone 2023-0 Yes [id number] 1{tbl} Take 1 Un mayank -acetaminop 6-07 tablet by ity of hen ([employer]) 00:00: mouth [place] 7.5-325 mg 00 every 8 Medica l per tablet (eight) Branch hours as needed for Pain. Indication s: acute pain dextroamphe 2023-0 Yes [id number] 20mg Take 1 Univers tamine-amph 6-07 tablet by ity of etamine 00:00: mouth in [place] (ADDERALL) 00 the Medical 20 mg morning Branch tablet and 1 tablet at noon and 1 tablet in the evening. HYDROcodone 2023-0 Yes 4647 1{tbl} Take 1 Un mayank -acetaminop 6-07 tablet by ity of hen ([employer]) 00:00: mouth [place] 7.5-325 mg 00 every 8 Medica l per tablet (eight) Branch hours as needed for Pain. Indication s: acute pain dextroamphe 2023-0 Yes [id number] 20mg Take 1 Univers tamine-amph 6-07 tablet by ity of etamine 00:00: mouth in [place] (ADDERALL) 00 the Medical 20 mg morning Branch tablet and 1 tablet at noon and 1 tablet in the evening. HYDROcodone 2023-0 Yes 4647 1{tbl} Take 1 Un mayank -acetaminop 6-07 tablet by ity of hen ([employer]) 00:00: mouth [place] 7.5-325 mg 00 every 8 Medica l per tablet (eight) Branch hours as needed for Pain. Indication s: acute pain dextroamphe 2023-0 Yes [id number] 20mg Take 1 Univers tamine-amph 6-07 tablet by ity of etamine 00:00: mouth in [place] (ADDERALL) 00 the Medical 20 mg morning Branch tablet and 1 tablet at noon and 1 tablet in the evening. HYDROcodone 2023-0 Yes [id number] 1{tbl} Take 1 Un mayank -acetaminop 6-07 tablet by ity of hen ([employer]) 00:00: mouth [place] 7.5-325 mg 00 every 8 Medica l per tablet (eight) Branch hours as needed for Pain. Indication s: acute pain dextroamphe 2023-0 Yes [id number] 20mg Take 1 Univers tamine-amph 6-07 tablet by ity of etamine 00:00: mouth in [place] (ADDERALL) 00 the Medical 20 mg morning Branch tablet and 1 tablet at noon and 1 tablet in the evening. HYDROcodone 2023-0 Yes [id number] 1{tbl} Take 1 Un mayank -acetaminop 6-07 tablet by ity of hen ([employer]) 00:00: mouth [place] 7.5-325 mg 00 every 8 Medica l per tablet (eight) Branch hours as needed for Pain. Indication s: acute pain dextroamphe 2023-0 Yes [id number] 20mg Take 1 Univers tamine-amph 6-07 tablet by ity of etamine 00:00: mouth in [place] (ADDERALL) 00 the Medical 20 mg morning Branch tablet and 1 tablet at noon and 1 tablet in the evening. dextroamphe 2023-0 Yes [id number] 20mg Take 1 Univers tamine-amph 6-07 tablet by ity of etamine 00:00: mouth in [place] (ADDERALL) 00 the Medical 20 mg morning Branch tablet and 1 tablet at noon and 1 tablet in the evening. HYDROcodone 2022-0 2022- No 4647 1{tbl} Take 1 U nivers -acetaminop 6-07 06-14 tablet by it y of hen ([employer]) 00:00[place] 7.5-325 mg 00 :00 every 8 Medica l per tablet (eight) Branch hours as needed for Pain. Indication s: acute pain HYDROcodone 3-0 Yes 4647 1{tbl} Take 1 Un mayank -acetaminop 6-01 tablet by ity of hen ([employer]) 00:00: mouth [place] 7.5-325 mg 00 every 8 Medica l per tablet (eight) Branch hours as needed for Pain. Indication s: acute pain HYDROcodone 2023-0 Yes 4647 1{tbl} Take 1 Un mayank -acetaminop 6-01 tablet by ity of hen ([employer]) 00:00: mouth [place] 7.5-325 mg 00 every 8 Medica l per tablet (eight) Branch hours as needed for Pain. Indication s: acute pain HYDROcodone 2023-0 Yes 4647 1{tbl} Take 1 Un mayank -acetaminop 6-01 tablet by ity of hen ([employer]) 00:00: mouth [place] 7.5-325 mg 00 every 8 Medica l per tablet (eight) Branch hours as needed for Pain. Indication s: acute pain HYDROcodone 2023-0 2023- No 4647 1{tbl} Take 1 U nivers -acetaminop 6-01 06-07 tablet by it y of hen ([employer]) 00:00: [place] 7.5-325 mg 00 :00 every 8 Medica l per tablet (eight) Branch hours as needed for Pain. Indication s: acute pain acetaminoph 2022-0 2022- No Take by Un mayank en (TYLENOL 5-26 05-26 mouth. ity o f ORAL) 12:07: 00:00 [place] 46 :00 Medical Branch acetaminoph 2022-0 2022- No Take by Un mayank en (TYLENOL 5-26 05-26 mouth. ity o f ORAL) 12:07: 00:00 [place] 46 :00 Medical Branch acetaminoph 2022-0 2022- No Take by Un mayank en (TYLENOL 5-26 05-26 mouth. ity o f ORAL) 12:07: 00:00 [place] 46 :00 Medical Branch acetaminoph 2022-0 2022- No Take by Un mayank en (TYLENOL 5-26 05-26 mouth. ity o f ORAL) 12:07: 00:00 [place] 46 :00 Medical Branch acetaminoph 3-0 2022- No Take by Un mayank en (TYLENOL 5-26 05-26 mouth. ity o f ORAL) 12:07: 00:00 [place] 46 :00 Medical Branch gabapentin 2023-0 Yes [id number] 300mg Take 1 Univers 300 mg 5-26 capsule by ity of capsule 00:00: mouth at [place] [address] bedtime. Medical Branch gabapentin 2023-0 Yes [id number] 300mg Take 1 Univers 300 mg 5-26 capsule by ity of capsule 00:00: mouth at [place] [address] bedtime. Medical Branch gabapentin 2023-0 Yes [id number] 300mg Take 1 Univers 300 mg 5-26 capsule by ity of capsule 00:00: mouth at [place] [address] bedtime. Medical Branch gabapentin 2023-0 Yes [id number] 300mg Take 1 Univers 300 mg 5-26 capsule by ity of capsule 00:00: mouth at [place] [address] bedtime. Medical Branch gabapentin 2023-0 Yes [id number] 300mg Take 1 Univers 300 mg 5-26 capsule by ity of capsule 00:00: mouth at [place] [address] bedtime. Medical Branch gabapentin 2023-0 Yes [id number] 300mg Take 1 Univers 300 mg 5-26 capsule by ity of capsule 00:00: mouth at [place] [address] bedtime. Medical Branch gabapentin 2023-0 Yes [id number] 300mg Take 1 Univers 300 mg 5-26 capsule by ity of capsule 00:00: mouth at [place] [address] bedtime. Medical Branch gabapentin 2023-0 Yes [id number] 300mg Take 1 Univers 300 mg 5-26 capsule by ity of capsule 00:00: mouth at [place] [address] bedtime. Medical Branch gabapentin 2023-0 Yes [id number] 300mg Take 1 Univers 300 mg 5-26 capsule by ity of capsule 00:00: mouth at [place] [address] bedtime. Medical Branch gabapentin 2023-0 Yes [id number] 300mg Take 1 Univers 300 mg 5-26 capsule by ity of capsule 00:00: mouth at [place] [address] bedtime. Medical Branch gabapentin 2023-0 Yes [id number] 300mg Take 1 Univers 300 mg 5-26 capsule by ity of capsule 00:00: mouth at [place] [address] bedtime. Medical Branch gabapentin 2023-0 Yes [id number] 300mg Take 1 Univers 300 mg 5-26 capsule by ity of capsule 00:00: mouth at [place] [address] bedtime. Medical Branch gabapentin 2023-0 Yes [id number] 300mg Take 1 Univers 300 mg 5-26 capsule by ity of capsule 00:00: mouth at [place] [address] bedtime. Medical Branch gabapentin 2023-0 Yes [id number] 300mg Take 1 Univers 300 mg 5-26 capsule by ity of capsule 00:00: mouth at [place] [address] bedtime. Medical Branch gabapentin 2023-0 Yes [id number] 300mg Take 1 Univers 300 mg 5-26 capsule by ity of capsule 00:00: mouth at [place] [address] bedtime. Medical Branch gabapentin 2023-0 Yes [id number] 300mg Take 1 Univers 300 mg 5-26 capsule by ity of capsule 00:00: mouth at [place] [address] bedtime. Medical Branch gabapentin 2023-0 Yes [id number] 300mg Take 1 Univers 300 mg 5-26 capsule by ity of capsule 00:00: mouth at [place] [address] bedtime. Medical Branch gabapentin 2023-0 Yes [id number] 300mg Take 1 Univers 300 mg 5-26 capsule by ity of capsule 00:00: mouth at [place] [address] bedtime. Medical Branch gabapentin 2023-0 Yes [id number] 300mg Take 1 Univers 300 mg 5-26 capsule by ity of capsule 00:00: mouth at [place] 00 bedtime. Medical Branch gabapentin Yes [id number] 300mg Take 1 Univers 300 mg 5-26 capsule by ity of capsule 00:00: mouth at [place] 00 bedtime. Medical Branch HYDROcodone 2022- Yes [id number] 1{tbl} Take 1 U nivers -acetaminop 5-26 06-03 tablet by it y of hen ([employer]) 00:00[place] 04[place]59 [place] 7.5-325 mg 00 :00 every 8 Medica l per tablet (eight) Branch hours as needed for Pain for up to 7 days. Indication s: acute pain HYDROcodone 2022- Yes 4647 1{tbl} Take 1 U nivers -acetaminop 5-26 06-03 tablet by it y of hen ([employer]) 00:00: 04:59 [place] 7.5-325 mg 00 :00 every 8 Medica l per tablet (eight) Branch hours as needed for Pain for up to 7 days. Indication s: acute pain HYDROcodone 2022- Yes 4647 1{tbl} Take 1 U nivers -acetaminop 5-26 06-03 tablet by it y of hen ([employer]) 00:00: 04:59 [place] 7.5-325 mg 00 :00 every 8 Medica l per tablet (eight) Branch hours as needed for Pain for up to 7 days. Indication s: acute pain HYDROcodone 2022- Yes 4647 1{tbl} Take 1 U nivers -acetaminop 5-26 06-03 tablet by it y of hen ([employer]) 00:00: 04:59 [place] 7.5-325 mg 00 :00 every 8 Medica l per tablet (eight) Branch hours as needed for Pain for up to 7 days. Indication s: acute pain HYDROcodone 2022- Yes 4647 1{tbl} Take 1 U nivers -acetaminop 5-26 06-03 tablet by it y of hen ([employer]) 00:00: 04:59 [place] 7.5-325 mg 00 :00 every 8 Medica l per tablet (eight) Branch hours as needed for Pain for up to 7 days. Indication s: acute pain HYDROcodone 2022-0 2022- Yes 4647 1{tbl} Take 1 U nivers -acetaminop 5-26 06-03 tablet by it y of hen ([employer]) 00:00: 04:59 [place] 7.5-325 mg 00 :00 every 8 Medica l per tablet (eight) Branch hours as needed for Pain for up to 7 days. Indication s: acute pain HYDROcodone 0 2022- Yes 4647 1{tbl} Take 1 U nivers -acetaminop 5-26 06-03 tablet by it y of hen ([employer]) 00:00: 04:59 [place] 7.5-325 mg 00 :00 every 8 Medica l per tablet (eight) Branch hours as needed for Pain for up to 7 days. Indication s: acute pain HYDROcodone 2022- No 4647 1{tbl} Take 1 U nivers -acetaminop 5-26 06- tablet by it y of hen ([employer]) 00:00: 00:00 [place] 7.5-325 mg 00 :00 every 8 Medica l per tablet (eight) Branch hours as needed for Pain for up to 7 days. Indication s: acute pain diclofenac 2022-0 Yes Univers 75 mg EC 5-25 ity of tablet 00:00: Medical Branch diclofenac 2023-0 Yes Univers 75 mg EC 5-25 ity of tablet 00:00: Medical Branch diclofenac 2023-0 Yes Univers 75 mg EC 5-25 ity of tablet 00:00: Medical Branch diclofenac 2023-0 Yes Univers 75 mg EC 5-25 ity of tablet 00:00: Medical Branch diclofenac 2023-0 Yes Univers 75 mg EC 5-25 ity of tablet 00:00: Medical Branch diclofenac 2023-0 Yes Univers 75 mg EC 5-25 ity of tablet 00:00: Medical Branch diclofenac 2023-0 Yes Univers 75 mg EC 5-25 ity of tablet 00:00: Medical Branch diclofenac 2023-0 Yes Univers 75 mg EC 5-25 ity of tablet 00:00: Medical Branch diclofenac 2023-0 Yes Univers 75 mg EC 5-25 ity of tablet 00:00: [place] 00 Medical Branch diclofenac 2023-0 Yes Univers 75 mg EC 5-25 ity of tablet 00:00: [place] 00 Medical Branch diclofenac 2023-0 Yes Univers 75 mg EC 5-25 ity of tablet 00:00: [place] 00 Medical Branch diclofenac 2023-0 Yes Univers 75 mg EC 5-25 ity of tablet 00:00: [place] 00 Medical Branch diclofenac 2023-0 Yes Univers 75 mg EC 5-25 ity of tablet 00:00: [place] 00 Medical Branch diclofenac 2023-0 Yes Univers 75 mg EC 5-25 ity of tablet 00:00: [place] 00 Medical Branch diclofenac 2023-0 Yes [facility] 75 mg EC 5-25 ity of tablet 00:00: [place] 00 [facility] Branch diclofenac 2023-0 Yes [facility] 75 mg EC 5-25 ity of tablet 00:00: [place] 00 Medical Branch diclofenac 2023-0 Yes [facility] 75 mg EC 5-25 ity of tablet 00:00: [place] [address] Medical Branch diclofenac 2023-0 Yes [facility] 75 mg EC 5-25 ity of tablet 00:00: [place] 00 Medical Branch diclofenac 2023-0 Yes [facility] 75 mg EC 5-25 ity of tablet 00:00: [place] [address] Medical Branch diclofenac 2023-0 Yes [facility] 75 mg EC 5-25 ity of tablet 00:00: [place] 00 Medical Branch predniSONE 2023-0 Yes TAKE 3 Unive rs 20 mg 5-23 TABLETS BY ity of tablet 00:00: [facility] EVERY DAY Medical FOR 5 DAYS Branch tiZANidine 2023-0 Yes TAKE 1 Unive rs 4 mg tablet 5-23 TABLET BY ity of 00:00: [facility] EVERY 8 Medical HOURS Branch NEEDED predniSONE 2023-0 Yes TAKE 3 Unive rs 20 mg 5-23 TABLETS BY ity of tablet 00:00: [facility] EVERY DAY Medical FOR 5 DAYS Branch tiZANidine 2023-0 Yes TAKE 1 Unive rs 4 mg tablet 5-23 TABLET BY ity of 00:00: [facility] EVERY 8 Medical HOURS Branch NEEDED predniSONE 2023-0 Yes TAKE 3 Unive rs 20 mg 5-23 TABLETS BY ity of tablet 00:00: [facility] EVERY DAY Medical FOR 5 DAYS Branch tiZANidine 2023-0 Yes TAKE 1 Unive rs 4 mg tablet 5-23 TABLET BY ity of 00:00: [facility] 00 EVERY 8 Medical HOURS Branch NEEDED predniSONE 2023-0 Yes TAKE 3 Unive rs 20 mg 5-23 TABLETS BY ity of tablet 00:00: MOUTH [place] 00 EVERY DAY Medical FOR 5 DAYS Branch tiZANidine 2023-0 Yes TAKE 1 Unive rs 4 mg tablet 5-23 TABLET BY ity of 00:00: MOUTH [place] 00 EVERY 8 Medical HOURS Branch NEEDED predniSONE 2023-0 Yes TAKE 3 Unive rs 20 mg 5-23 TABLETS BY ity of tablet 00:00: MOUTH [place] 00 EVERY DAY Medical FOR 5 DAYS Branch tiZANidine 2023-0 Yes TAKE 1 Unive rs 4 mg tablet 5-23 TABLET BY ity of 00:00: MOUTH [place] 00 EVERY 8 Medical HOURS Branch NEEDED predniSONE 2023-0 Yes TAKE 3 Unive rs 20 mg 5-23 TABLETS BY ity of tablet 00:00: MOUTH [place] 00 EVERY DAY Medical FOR 5 DAYS Branch tiZANidine 2023-0 Yes TAKE 1 Unive rs 4 mg tablet 5-23 TABLET BY ity of 00:00: MOUTH [place] 00 EVERY 8 Medical HOURS Branch NEEDED predniSONE 2023-0 Yes TAKE 3 Unive rs 20 mg 5-23 TABLETS BY ity of tablet 00:00: MOUTH [place] 00 EVERY DAY Medical FOR 5 DAYS Branch tiZANidine 2023-0 Yes TAKE 1 Unive rs 4 mg tablet 5-23 TABLET BY ity of 00:00: MOUTH [place] 00 EVERY 8 Medical HOURS Branch NEEDED predniSONE 2023-0 Yes TAKE 3 Unive rs 20 mg 5-23 TABLETS BY ity of tablet 00:00: MOUTH [place] 00 EVERY DAY Medical FOR 5 DAYS Branch tiZANidine 2023-0 Yes TAKE 1 Unive rs 4 mg tablet 5-23 TABLET BY ity of 00:00: MOUTH [place] 00 EVERY 8 Medical HOURS Branch NEEDED predniSONE 2023-0 Yes TAKE 3 Unive rs 20 mg 5-23 TABLETS BY ity of tablet 00:00: MOUTH [place] 00 EVERY DAY Medical FOR 5 DAYS Branch tiZANidine 2023-0 Yes TAKE 1 Unive rs 4 mg tablet 5-23 TABLET BY ity of 00:00: MOUTH [place] 00 EVERY 8 Medical HOURS Branch NEEDED predniSONE 2023-0 Yes TAKE 3 Unive rs 20 mg 5-23 TABLETS BY ity of tablet 00:00: MOUTH [place] 00 EVERY DAY Medical FOR 5 DAYS Branch tiZANidine 2023-0 Yes TAKE 1 Unive rs 4 mg tablet 5-23 TABLET BY ity of 00:00: MOUTH [place] 00 EVERY 8 Medical HOURS Branch NEEDED predniSONE 2023-0 Yes TAKE 3 Unive rs 20 mg 5-23 TABLETS BY ity of tablet 00:00: MOUTH [place] 00 EVERY DAY Medical FOR 5 DAYS Branch tiZANidine 2023-0 Yes TAKE 1 Unive rs 4 mg tablet 5-23 TABLET BY ity of 00:00: MOUTH [place] 00 EVERY 8 Medical HOURS Branch NEEDED predniSONE 2023-0 Yes TAKE 3 Unive rs 20 mg 5-23 TABLETS BY ity of tablet 00:00: MOUTH [place] 00 EVERY DAY Medical FOR 5 DAYS Branch tiZANidine 2023-0 Yes TAKE 1 Unive rs 4 mg tablet 5-23 TABLET BY ity of 00:00: MOUTH [place] 00 EVERY 8 Medical HOURS Branch NEEDED predniSONE 2023-0 Yes TAKE 3 Unive rs 20 mg 5-23 TABLETS BY ity of tablet 00:00: MOUTH [place] 00 EVERY DAY Medical FOR 5 DAYS Branch tiZANidine 3-0 Yes TAKE 1 Unive rs 4 mg tablet 5-23 TABLET BY ity of 00:00: MOUTH [place] 00 EVERY 8 Medical HOURS Branch NEEDED predniSONE 2023-0 Yes TAKE 3 Unive rs 20 mg 5-23 TABLETS BY ity of tablet 00:00: MOUTH [place] 00 EVERY DAY Medical FOR 5 DAYS Branch tiZANidine 2023-0 Yes TAKE 1 Unive rs 4 mg tablet 5-23 TABLET BY ity of 00:00: MOUTH [place] 00 EVERY 8 Medical HOURS Branch NEEDED predniSONE 2023-0 Yes TAKE 3 Unive rs 20 mg 5-23 TABLETS BY ity of tablet 00:00: MOUTH [place] 00 EVERY DAY Medical FOR 5 DAYS Branch tiZANidine 2023-0 Yes TAKE 1 Unive rs 4 mg tablet 5-23 TABLET BY ity of 00:00: MOUTH [place] 00 EVERY 8 Medical HOURS Branch NEEDED predniSONE 2023-0 Yes TAKE 3 Unive rs 20 mg 5-23 TABLETS BY ity of tablet 00:00: MOUTH [place] 00 EVERY DAY Medical FOR 5 DAYS Branch tiZANidine 2023-0 Yes TAKE 1 Unive rs 4 mg tablet 5-23 TABLET BY ity of 00:00: MOUTH [place] 00 EVERY 8 Medical HOURS Branch NEEDED predniSONE 2023-0 Yes TAKE 3 Unive rs 20 mg 5-23 TABLETS BY ity of tablet 00:00: MOUTH 00 EVERY DAY Medical FOR 5 DAYS Branch tiZANidine 2023-0 Yes TAKE 1 Unive rs 4 mg tablet 5-23 TABLET BY ity of 00:00: MOUTH 00 EVERY 8 Medical HOURS Branch NEEDED predniSONE 2023-0 Yes TAKE 3 Unive rs 20 mg 5-23 TABLETS BY ity of tablet 00:00: MOUTH 00 EVERY DAY Medical FOR 5 DAYS Branch tiZANidine 2023-0 Yes TAKE 1 Unive rs 4 mg tablet 5-23 TABLET BY ity of 00:00: MOUTH 00 EVERY 8 Medical HOURS Branch NEEDED predniSONE 2023-0 Yes TAKE 3 Unive rs 20 mg 5-23 TABLETS BY ity of tablet 00:00: MOUTH 00 EVERY DAY Medical FOR 5 DAYS Branch tiZANidine 2023-0 Yes TAKE 1 Unive rs 4 mg tablet 5-23 TABLET BY ity of 00:00: MOUTH 00 EVERY 8 Medical HOURS Branch NEEDED predniSONE 2023-0 Yes TAKE 3 Unive rs 20 mg 5-23 TABLETS BY ity of tablet 00:00: MOUTH 00 EVERY DAY Medical FOR 5 DAYS Branch tiZANidine 2023-0 Yes TAKE 1 Unive rs 4 mg tablet 5-23 TABLET BY ity of 00:00: MOUTH 00 EVERY 8 Medical HOURS Branch NEEDED acetaminoph 2023-0 2023- No TAKE 1 Uni vers en-codeine 5-23 05-26 TABLET BY ity of 300-15 mg 00:00: 00:00 MOUTH [place] tablet 00 :00 EVERY 4 TO Medical 6 HOURS Branch NEEDED FOR PAIN acetaminoph 2023-0 2023- No TAKE 1 Uni vers en-codeine 5-23 05-26 TABLET BY ity of 300-15 mg 00:00: 00:00 MOUTH [place] tablet 00 :00 EVERY 4 TO Medical 6 HOURS Branch NEEDED FOR PAIN acetaminoph 2023-0 2023- No TAKE 1 Uni vers en-codeine 5-23 05-26 TABLET BY ity of 300-15 mg 00:00: 00:00 MOUTH [place] tablet 00 :00 EVERY 4 TO Medical 6 HOURS Branch NEEDED FOR PAIN acetaminoph 2023-0 2023- No TAKE 1 Uni vers en-codeine 5-23 05-26 TABLET BY ity of 300-15 mg 00:00: 00:00 MOUTH [place] tablet 00 :00 EVERY 4 TO Medical 6 HOURS [place] NEEDED FOR PAIN SYNTHROID 0 Yes [id number] TAKE 1 U nivers 150 mcg 5-21 TABLET BY ity of tablet 00:00: MOUTH [place] 00 EVERY DAY Medical IN THE [facility] SYNTHROID 0 Yes [id number] TAKE 1 U nivers 150 mcg 5-21 TABLET BY ity of tablet 00:00: MOUTH [place] 00 EVERY DAY Medical IN THE [facility] SYNTHROID 0 Yes [id number] TAKE 1 U nivers 150 mcg 5-21 TABLET BY ity of tablet 00:00: MOUTH [place] 00 EVERY DAY Medical IN THE [facility] SYNTHROID 0 Yes [id number] TAKE 1 U nivers 150 mcg 5-21 TABLET BY ity of tablet 00:00: MOUTH [place] 00 EVERY DAY Medical IN THE [facility] SYNTHROID 0 Yes [id number] TAKE 1 U nivers 150 mcg 5-21 TABLET BY ity of tablet 00:00: MOUTH [place] 00 EVERY DAY Medical IN THE [facility] SYNTHROID 0 Yes [id number] TAKE 1 U nivers 150 mcg 5-21 TABLET BY ity of tablet 00:00: MOUTH [place] 00 EVERY DAY Medical IN THE [facility] SYNTHROID 0 Yes [id number] TAKE 1 U nivers 150 mcg 5-21 TABLET BY ity of tablet 00:00: MOUTH [place] 00 EVERY DAY Medical IN THE [facility] SYNTHROID 0 Yes [id number] TAKE 1 U nivers 150 mcg 5-21 TABLET BY ity of tablet 00:00: MOUTH [place] 00 EVERY DAY Medical IN THE [facility] SYNTHROID 0 Yes [id number] TAKE 1 U nivers 150 mcg 5-21 TABLET BY ity of tablet 00:00: MOUTH [place] 00 EVERY DAY Medical IN THE [facility] SYNTHROID 0 Yes [id number] TAKE 1 U nivers 150 mcg 5-21 TABLET BY ity of tablet 00:00: MOUTH [place] 00 EVERY DAY Medical IN THE [facility] SYNTHROID 2022-0 Yes [id number] TAKE 1 U nivers 150 mcg 5-21 TABLET BY ity of tablet 00:00: MOUTH [place] 00 EVERY DAY Medical IN THE [facility] SYNTHROID 2022-0 Yes [id number] TAKE 1 U nivers 150 mcg 5-21 TABLET BY ity of tablet 00:00: MOUTH [place] 00 EVERY DAY Medical IN THE [facility] SYNTHROID 0 Yes [id number] TAKE 1 U nivers 150 mcg 5-21 TABLET BY ity of tablet 00:00: MOUTH [place] 00 EVERY DAY Medical IN THE [facility] SYNTHROID 0 Yes [id number] TAKE 1 U nivers 150 mcg 5-21 TABLET BY ity of tablet 00:00: MOUTH [place] 00 EVERY DAY Medical IN THE [facility] SYNTHROID 0 Yes [id number] TAKE 1 U nivers 150 mcg 5-21 TABLET BY ity of tablet 00:00: MOUTH [place] 00 EVERY DAY Medical IN THE [facility] SYNTHROID 0 Yes [id number] TAKE 1 U nivers 150 mcg 5-21 TABLET BY ity of tablet 00:00: MOUTH [place] 00 EVERY DAY Medical IN THE [facility] SYNTHROID 0 Yes [id number] TAKE 1 U nivers 150 mcg 5-21 TABLET BY ity of tablet 00:00: MOUTH [place] 00 EVERY DAY Medical IN THE [facility] SYNTHROID 0 Yes [id number] TAKE 1 U nivers 150 mcg 5-21 TABLET BY ity of tablet 00:00: MOUTH [place] 00 EVERY DAY Medical IN THE [facility] SYNTHROID 0 Yes [id number] TAKE 1 U nivers 150 mcg 5-21 TABLET BY ity of tablet 00:00: MOUTH [place] 00 EVERY DAY Medical IN THE [facility] SYNTHROID 0 Yes [id number] TAKE 1 U nivers 150 mcg 5-21 TABLET BY ity of tablet 00:00: MOUTH [place] 00 EVERY DAY Medical IN THE [facility] SYNTHROID 0 Yes [id number] TAKE 1 U nivers 150 mcg 5-21 TABLET BY ity of tablet 00:00: MOUTH [place] 00 EVERY DAY Medical IN THE [facility] SYNTHROID 0 Yes [id number] TAKE 1 U nivers 150 mcg 5-21 TABLET BY ity of tablet 00:00: MOUTH [place] 00 EVERY DAY Medical IN THE [facility] SYNTHROID 0 Yes [id number] TAKE 1 U nivers 150 mcg 5-21 TABLET BY ity of tablet 00:00: MOUTH [place] 00 EVERY DAY Medical IN THE [facility] orphenadrin 2022-0 3- No TAKE 1 Uni vers e 100 mg SR 5-14 - TABLET BY it y of tablet 00:00: 00:00 MOUTH [place] 00 :00 TWICE A Medical DAY Branch NEEDED orphenadrin 2023-0 2022- No TAKE 1 Uni vers e 100 mg SR 5-14 05-26 TABLET BY it y of tablet 00:00: 00:00 MOUTH [place] 00 :00 TWICE A Medical DAY Branch NEEDED orphenadrin 2023-0 2022- No TAKE 1 Uni vers e 100 mg SR 5-14 05-26 TABLET BY it y of tablet 00:00: 00:00 MOUTH [place] 00 :00 TWICE A Medical DAY Branch NEEDED orphenadrin 2023-0 2022- No TAKE 1 Uni vers e 100 mg SR 5-14 05-26 TABLET BY it y of tablet 00:00: 00:00 MOUTH [place] 00 :00 TWICE A Medical DAY Branch NEEDED dextroamphe 2023-0 Yes [id number] 20mg Take 1 [facility] tamine-amph 5-09 tablet by ity of etamine 00:00: mouth in [place] ([facility]) 00 the Medical 20 mg morning Branch tablet and 1 tablet at noon and 1 tablet in the evening. dextroamphe 2023-0 Yes [id number] 20mg Take 1 [facility] tamine-amph 5-09 tablet by ity of etamine 00:00: mouth in [place] ([facility]) 00 the Medical 20 mg morning Branch tablet and 1 tablet at noon and 1 tablet in the evening. dextroamphe 2023-0 Yes [id number] 20mg Take 1 [facility] tamine-amph 5-09 tablet by ity of etamine 00:00: mouth in [place] ([facility]) 00 the Medical 20 mg morning Branch tablet and 1 tablet at noon and 1 tablet in the evening. dextroamphe 2023-0 Yes [id number] 20mg Take 1 [facility] tamine-amph 5-09 tablet by ity of etamine 00:00: mouth in [place] ([facility]) 00 the Medical 20 mg morning Branch tablet and 1 tablet at noon and 1 tablet in the evening. dextroamphe 2023-0 Yes [id number] 20mg Take 1 [facility] tamine-amph 5-09 tablet by ity of etamine 00:00: mouth in [place] ([facility]) 00 the Medical 20 mg morning Branch tablet and 1 tablet at noon and 1 tablet in the evening. dextroamphe 2023-0 Yes [id number] 20mg Take 1 [facility] tamine-amph 5-09 tablet by ity of etamine 00:00: mouth in [place] ([facility]) 00 the Medical 20 mg morning Branch tablet and 1 tablet at noon and 1 tablet in the evening. dextroamphe 2023-0 Yes [id number] 20mg Take 1 [facility] tamine-amph 5-09 tablet by ity of etamine 00:00: mouth in [place] ([facility]) 00 the Medical 20 mg morning Branch tablet and 1 tablet at noon and 1 tablet in the evening. dextroamphe 2023-0 Yes [id number] 20mg Take 1 [facility] tamine-amph 5-09 tablet by ity of etamine 00:00: mouth in [place] ([facility]) 00 the Medical 20 mg morning Branch tablet and 1 tablet at noon and 1 tablet in the evening. dextroamphe 2023-0 Yes [id number] 20mg Take 1 [facility] tamine-amph 5-09 tablet by ity of etamine 00:00: mouth in [place] ([facility]) 00 the Medical 20 mg morning Branch tablet and 1 tablet at noon and 1 tablet in the evening. dextroamphe 2023-0 Yes [id number] 20mg Take 1 [facility] tamine-amph 5-09 tablet by ity of etamine 00:00: mouth in [place] ([facility]) 00 the Medical 20 mg morning Branch tablet and 1 tablet at noon and 1 tablet in the evening. dextroamphe 2023-0 Yes [id number] 20mg Take 1 [facility] tamine-amph 5-09 tablet by ity of etamine 00:00: mouth in [place] ([facility]) 00 the Medical 20 mg morning Branch tablet and 1 tablet at noon and 1 tablet in the evening. dextroamphe 2023-0 Yes [id number] 20mg Take 1 [facility] tamine-amph 5-09 tablet by ity of etamine 00:00: mouth in [place] ([facility]) 00 the Medical 20 mg morning Branch tablet and 1 tablet at noon and 1 tablet in the evening. dextroamphe 2023-0 Yes [id number] 20mg Take 1 [facility] tamine-amph 5-09 tablet by ity of etamine 00:00: mouth in [place] ([facility]) 00 the Medical 20 mg morning Branch tablet and 1 tablet at noon and 1 tablet in the evening. dextroamphe 2023-0 Yes [id number] 20mg Take 1 [facility] tamine-amph 5-09 tablet by ity of etamine 00:00: mouth in [place] [facility] the Medical 20 mg morning Branch tablet and 1 tablet at noon and 1 tablet in the evening. dextroamphe 2023-0 Yes [id number] 20mg Take 1 [facility] tamine-amph 5-09 tablet by ity of etamine 00:00: mouth in [place] [facility] the Medical 20 mg morning Branch tablet and 1 tablet at noon and 1 tablet in the evening. dextroamphe 2023-0 Yes [id number] 20mg Take 1 [facility] tamine-amph 5-09 tablet by ity of etamine 00:00: mouth in [place] [facility] 00 the Medical 20 mg morning Branch tablet and 1 tablet at noon and 1 tablet in the evening. dextroamphe 2023-0 Yes [id number] 20mg Take 1 [facility] tamine-amph 5-09 tablet by ity of etamine 00:00: mouth in [place] [facility] 00 the Medical 20 mg morning Branch tablet and 1 tablet at noon and 1 tablet in the evening. dextroamphe 2023-0 Yes [id number] 20mg Take 1 [facility] tamine-amph 5-09 tablet by ity of etamine 00:00: mouth in [place] ([facility]) 00 the Medical 20 mg morning Branch tablet and 1 tablet at noon and 1 tablet in the evening. dextroamphe 2023-0 Yes [id number] 20mg Take 1 [facility] tamine-amph 5-09 tablet by ity of etamine 00:00: mouth in [place] [facility] 00 the Medical 20 mg morning Branch tablet and 1 tablet at noon and 1 tablet in the evening. dextroamphe 2023-0 Yes [id number] 20mg Take 1 [facility] tamine-amph 5-09 tablet by ity of etamine 00:00: mouth in [place] ([facility]) 00 the Medical 20 mg morning Branch tablet and 1 tablet at noon and 1 tablet in the evening. dextroamphe 2023-0 2023- No [id number] 20mg Take 1 [facility] tamine-amph 5-09 06-07 tablet by it y of etamine 00:00: 00:00 mouth in [place] ([facility] :00 the Medical 20 mg morning Branch tablet and 1 tablet at noon and 1 tablet in the evening. SERTRALINE 3-0 Yes [id number] TAKE 1 [facility] 100 mg 5-01 TABLET BY ity of tablet 00:00: MOUTH [place] 00 EVERY DAY Medical Branch SERTRALINE 3-0 Yes [id number] TAKE 1 [facility] 100 mg 5-01 TABLET BY ity of tablet 00:00: MOUTH [place] 00 EVERY DAY Medical Branch SERTRALINE 3-0 Yes [id number] TAKE 1 [facility] 100 mg 5-01 TABLET BY ity of tablet 00:00: MOUTH [place] 00 EVERY DAY Medical Branch SERTRALINE 2023-0 Yes [id number] TAKE 1 [facility] 100 mg 5-01 TABLET BY ity of tablet 00:00: MOUTH [place] 00 EVERY DAY Medical Branch SERTRALINE 3-0 Yes [id number] TAKE 1 [facility] 100 mg 5-01 TABLET BY ity of tablet 00:00: MOUTH [place] 00 EVERY DAY Medical Branch SERTRALINE 3-0 Yes [id number] TAKE 1 [facility] 100 mg 5-01 TABLET BY ity of tablet 00:00: MOUTH [place] 00 EVERY DAY Medical Branch SERTRALINE 3-0 Yes [id number] TAKE 1 [facility] 100 mg 5-01 TABLET BY ity of tablet 00:00: MOUTH [place] 00 EVERY DAY Medical Branch SERTRALINE 3-0 Yes [id number] TAKE 1 [facility] 100 mg 5-01 TABLET BY ity of tablet 00:00: MOUTH [place] 00 EVERY DAY Medical Branch SERTRALINE 3-0 Yes [id number] TAKE 1 [facility] 100 mg 5-01 TABLET BY ity of tablet 00:00: MOUTH [place] 00 EVERY DAY Medical Branch SERTRALINE 3-0 Yes [id number] TAKE 1 [facility] 100 mg 5-01 TABLET BY ity of tablet 00:00: MOUTH [place] 00 EVERY DAY Medical Branch SERTRALINE 3-0 Yes [id number] TAKE 1 [facility] 100 mg 5-01 TABLET BY ity of tablet 00:00: MOUTH [place] 00 EVERY DAY Medical Branch SERTRALINE 3-0 Yes [id number] TAKE 1 [facility] 100 mg 5-01 TABLET BY ity of tablet 00:00: MOUTH [place] 00 EVERY DAY Medical Branch SERTRALINE 3-0 Yes [id number] TAKE 1 [facility] 100 mg 5-01 TABLET BY ity of tablet 00:00: MOUTH [place] 00 EVERY DAY Medical Branch SERTRALINE 3-0 Yes [id number] TAKE 1 [facility] 100 mg 5-01 TABLET BY ity of tablet 00:00: MOUTH [place] 00 EVERY DAY Medical Branch SERTRALINE 2023-0 Yes [id number] TAKE 1 [facility] 100 mg 5-01 TABLET BY ity of tablet 00:00: MOUTH [place] 00 EVERY DAY Medical Branch SERTRALINE 2023-0 Yes [id number] TAKE 1 [facility] 100 mg 5-01 TABLET BY ity of tablet 00:00: MOUTH [place] 00 EVERY DAY Medical Branch SERTRALINE 2023-0 Yes [id number] TAKE 1 [facility] 100 mg 5-01 TABLET BY ity of tablet 00:00: MOUTH [place] 00 EVERY DAY Medical Branch SERTRALINE 2023-0 Yes [id number] TAKE 1 [facility] 100 mg 5-01 TABLET BY ity of tablet 00:00: MOUTH [place] 00 EVERY DAY Medical Branch SERTRALINE 3-0 Yes [id number] TAKE 1 [facility] 100 mg 5-01 TABLET BY ity of tablet 00:00: MOUTH 00 EVERY DAY Medical Branch SERTRALINE 3-0 Yes [id number] TAKE 1 [facility] 100 mg 5-01 TABLET BY ity of tablet 00:00: MOUTH [place] 00 EVERY DAY Medical Branch SERTRALINE 3-0 Yes [id number] TAKE 1 [facility] 100 mg 5-01 TABLET BY ity of tablet 00:00: MOUTH [place] 00 EVERY DAY Medical Branch SERTRALINE 2023-0 Yes [id number] TAKE 1 [facility] 100 mg 5-01 TABLET BY ity of tablet 00:00: MOUTH [place] 00 EVERY DAY Medical Branch SERTRALINE 2023-0 Yes [id number] TAKE 1 [facility] 100 mg 5-01 TABLET BY ity of tablet 00:00: MOUTH [place] 00 EVERY DAY Medical Branch SERTRALINE 2023-0 Yes [id number] TAKE 1 [facility] 100 mg 5-01 TABLET BY ity of tablet 00:00: MOUTH [place] 00 EVERY DAY Medical Branch SERTRALINE 2023-0 Yes [id number] TAKE 1 [facility] 100 mg 5-01 TABLET BY ity of tablet 00:00: MOUTH [place] 00 EVERY DAY Medical Branch SERTRALINE 2023-0 Yes [id number] TAKE 1 [facility] 100 mg 5-01 TABLET BY ity of tablet 00:00: MOUTH [place] 00 EVERY DAY Medical Branch SERTRALINE 2023-0 Yes [id number] TAKE 1 [facility] 100 mg 5-01 TABLET BY ity of tablet 00:00: MOUTH [place] 00 EVERY DAY Medical Branch SERTRALINE 2023-0 Yes [id number] TAKE 1 [facility] 100 mg 5-01 TABLET BY ity of tablet 00:00: MOUTH [place] 00 EVERY DAY Medical Branch SERTRALINE 2023-0 Yes [id number] TAKE 1 [facility] 100 mg 5-01 TABLET BY ity of tablet 00:00: MOUTH [place] 00 EVERY DAY Medical Branch SERTRALINE 2023-0 Yes [id number] TAKE 1 [facility] 100 mg 5-01 TABLET BY ity of tablet 00:00: MOUTH [place] 00 EVERY DAY Medical Branch SERTRALINE 2023-0 Yes [id number] TAKE 1 [facility] 100 mg 5-01 TABLET BY ity of tablet 00:00: MOUTH [place] 00 EVERY DAY Medical Branch SERTRALINE 2023-0 Yes [id number] TAKE 1 [facility] 100 mg 5-01 TABLET BY ity of tablet 00:00: MOUTH [place] EVERY DAY Medical Branch SERTRALINE 2023-0 Yes [id number] TAKE 1 [facility] 100 mg 5-01 TABLET BY ity of tablet 00:00: MOUTH [place] EVERY DAY Medical Branch clonazePAM 2023-0 Yes 1mg Take 1 Unive rs 1 mg tablet 4-23 tablet by ity of 00:00: mouth in [place] the Medical morning Branch and 1 tablet at noon and 1 tablet in the evening. clonazePAM 2023-0 Yes 1mg Take 1 Unive rs 1 mg tablet 4-23 tablet by ity of 00:00: mouth in [place] the Medical morning Branch and 1 tablet at noon and 1 tablet in the evening. clonazePAM 2023-0 Yes 1mg Take 1 Unive rs 1 mg tablet 4-23 tablet by ity of 00:00: mouth in [place] the Medical morning Branch and 1 tablet at noon and 1 tablet in the evening. clonazePAM 2023-0 Yes 1mg Take 1 Unive rs 1 mg tablet 4-23 tablet by ity of 00:00: mouth in [place] the Medical morning Branch and 1 tablet at noon and 1 tablet in the evening. clonazePAM 2023-0 Yes 1mg Take 1 Unive rs 1 mg tablet 4-23 tablet by ity of 00:00: mouth in [place] the Medical morning Branch and 1 tablet at noon and 1 tablet in the evening. clonazePAM 2023-0 Yes 1mg Take 1 Unive rs 1 mg tablet 4-23 tablet by ity of 00:00: mouth in [place] [address] the Medical morning Branch and 1 tablet at noon and 1 tablet in the evening. clonazePAM 2023-0 Yes 1mg Take 1 Unive rs 1 mg tablet 4-23 tablet by ity of 00:00: mouth in [place] [address] the Medical morning Branch and 1 tablet at noon and 1 tablet in the evening. clonazePAM 2023-0 Yes 1mg Take 1 Unive rs 1 mg tablet 4-23 tablet by ity of 00:00: mouth in [place] [address] the Medical morning Branch and 1 tablet at noon and 1 tablet in the evening. clonazePAM 2023-0 Yes 1mg Take 1 Unive rs 1 mg tablet 4-23 tablet by ity of 00:00: mouth in [place] [address] the Medical morning Branch and 1 tablet at noon and 1 tablet in the evening. clonazePAM 2023-0 Yes 1mg Take 1 Unive rs 1 mg tablet 4-23 tablet by ity of 00:00: mouth in [place] [address] the Medical morning [place] and 1 tablet at noon and 1 tablet in the evening. clonazePAM 2023-0 Yes 1mg Take 1 Unive rs 1 mg tablet 4-23 tablet by ity of 00:00: mouth in [place] [address] the Medical morning [place] and 1 tablet at noon and 1 tablet in the evening. clonazePAM 2023-0 Yes 1mg Take 1 Unive rs 1 mg tablet 4-23 tablet by ity of 00:00: mouth in [address] Medical morning [place] and 1 tablet at noon and 1 tablet in the evening. clonazePAM 2023-0 Yes 1mg Take 1 Unive rs 1 mg tablet 4-23 tablet by ity of 00:00: mouth in [place] [address] the Medical morning [place] and 1 tablet at noon and 1 tablet in the evening. clonazePAM 2023-0 Yes 1mg Take 1 Unive rs 1 mg tablet 4-23 tablet by ity of 00:00: mouth in [place] [address] the Medical morning [place] and 1 tablet at noon and 1 tablet in the evening. clonazePAM 2023-0 Yes 1mg Take 1 Unive rs 1 mg tablet 4-23 tablet by ity of 00:00: mouth in [address] Medical morning [place] and 1 tablet at noon and 1 tablet in the evening. clonazePAM 2023-0 Yes 1mg Take 1 Unive rs 1 mg tablet 4-23 tablet by ity of 00:00: mouth in [place] [address] the Medical morning Branch and 1 tablet at noon and 1 tablet in the evening. clonazePAM 2023-0 Yes 1mg Take 1 Unive rs 1 mg tablet 4-23 tablet by ity of 00:00: mouth in [place] [address] the Medical morning Branch and 1 tablet at noon and 1 tablet in the evening. clonazePAM 2023-0 Yes 1mg Take 1 Unive rs 1 mg tablet 4-23 tablet by ity of 00:00: mouth in [place] [address] the Medical morning Branch and 1 tablet at noon and 1 tablet in the evening. clonazePAM 2023-0 Yes 1mg Take 1 Unive rs 1 mg tablet 4-23 tablet by ity of 00:00: mouth in [place] [address] the Medical morning Branch and 1 tablet at noon and 1 tablet in the evening. clonazePAM 2023-0 Yes 1mg Take 1 Unive rs 1 mg tablet 4-23 tablet by ity of 00:00: mouth in [place] [address] the Medical morning [place] and 1 tablet at noon and 1 tablet in the evening. clonazePAM 2023-0 Yes 1mg Take 1 Unive rs 1 mg tablet 4-23 tablet by ity of 00:00: mouth in [place] [address] the Medical morning [place] and 1 tablet at noon and 1 tablet in the evening. clonazePAM 2023-0 Yes 1mg Take 1 [facility] 1 mg tablet 4-23 tablet by ity of 00:00: mouth in [address] Medical morning [place] and 1 tablet at noon and 1 tablet in the evening. clonazePAM 2023-0 Yes 1mg Take 1 [facility] rs 1 mg tablet 4-23 tablet by ity of 00:00: mouth in [place] [address] the Medical morning [place] and 1 tablet at noon and 1 tablet in the evening. clonazePAM 2023-0 Yes 1mg Take 1 [facility] rs 1 mg tablet 4-23 tablet by ity of 00:00: mouth in [place] [address] the Medical morning [place] and 1 tablet at noon and 1 tablet in the evening. clonazePAM 2023-0 Yes 1mg Take 1 [facility] 1 mg tablet 4-23 tablet by ity of 00:00: mouth in [address] Medical morning [place] and 1 tablet at noon and 1 tablet in the evening. clonazePAM 2023-0 Yes 1mg Take 1 [facility] 1 mg tablet 4-23 tablet by ity of 00:00: mouth in [place] 00 the Medical morning Branch and 1 tablet at noon and 1 tablet in the evening. clonazePAM 2023-0 Yes 1mg Take 1 [facility] 1 mg tablet 4-23 tablet by ity of 00:00: mouth in [place] 00 the Medical morning Branch and 1 tablet at noon and 1 tablet in the evening. clonazePAM 2023-0 Yes 1mg Take 1 [facility] 1 mg tablet 4-23 tablet by ity of 00:00: mouth in [place] 00 the Medical morning Branch and 1 tablet at noon and 1 tablet in the evening. clonazePAM 2023-0 Yes 1mg Take 1 [facility] 1 mg tablet 4-23 tablet by ity of 00:00: mouth in [place] 00 the Medical morning Branch and 1 tablet at noon and 1 tablet in the evening. clonazePAM 2023-0 Yes 1mg Take 1 [facility] 1 mg tablet 4-23 tablet by ity of 00:00: mouth in [place] 00 the Medical morning Branch and 1 tablet at noon and 1 tablet in the evening. clonazePAM 2023-0 Yes 1mg Take 1 [facility] rs 1 mg tablet 4-23 tablet by ity of 00:00: mouth in [place] 00 the Medical morning Branch and 1 tablet at noon and 1 tablet in the evening. dextroamphe 2023-0 Yes [id number] 20mg Take 1 [facility] tamine-amph 3-30 tablet by ity of etamine 00:00: mouth in [place] ([facility]) 00 the Medical 20 mg morning Branch tablet and 1 tablet at noon and 1 tablet in the evening. dextroamphe 2023-0 Yes [id number] 20mg Take 1 [facility] tamine-amph 3-30 tablet by ity of etamine 00:00: mouth in [place] ([facility]) 00 the Medical 20 mg morning Branch tablet and 1 tablet at noon and 1 tablet in the evening. dextroamphe 2023-0 Yes [id number] 20mg Take 1 [facility] tamine-amph 3-30 tablet by ity of etamine 00:00: mouth in [place] ([facility]) 00 the Medical 20 mg morning Branch tablet and 1 tablet at noon and 1 tablet in the evening. dextroamphe 2023-0 Yes [id number] 20mg Take 1 [facility] tamine-amph 3-30 tablet by ity of etamine 00:00: mouth in [place] ([facility]) 00 the Medical 20 mg morning Branch tablet and 1 tablet at noon and 1 tablet in the evening. dextroamphe 2023-0 Yes [id number] 20mg Take 1 [facility] tamine-amph 3-30 tablet by ity of etamine 00:00: mouth in [place] ([facility]) 00 the Medical 20 mg morning Branch tablet and 1 tablet at noon and 1 tablet in the evening. dextroamphe 2023-0 Yes [id number] 20mg Take 1 [facility] tamine-amph 3-30 tablet by ity of etamine 00:00: mouth in [place] ([facility]) 00 the Medical 20 mg morning Branch tablet and 1 tablet at noon and 1 tablet in the evening. dextroamphe 2023-0 Yes [id number] 20mg Take 1 [facility] tamine-amph 3-30 tablet by ity of etamine 00:00: mouth in [place] ([facility]) 00 the Medical 20 mg morning Branch tablet and 1 tablet at noon and 1 tablet in the evening. dextroamphe 2023-0 Yes [id number] 20mg Take 1 [facility] tamine-amph 3-30 tablet by ity of etamine 00:00: mouth in [place] ([facility]) 00 the Medical 20 mg morning Branch tablet and 1 tablet at noon and 1 tablet in the evening. dextroamphe 2023-0 Yes [id number] 20mg Take 1 [facility] tamine-amph 3-30 tablet by ity of etamine 00:00: mouth in [place] ([facility]) 00 the Medical 20 mg morning Branch tablet and 1 tablet at noon and 1 tablet in the evening. dextroamphe 2023-0 Yes [id number] 20mg Take 1 [facility] tamine-amph 3-30 tablet by ity of etamine 00:00: mouth in [place] ([facility]) 00 the Medical 20 mg morning Branch tablet and 1 tablet at noon and 1 tablet in the evening. dextroamphe 2023-0 2023- No [id number] 20mg Take 1 [facility] tamine-amph 3-30 05-09 tablet by it y of etamine 00:00: 00:00 mouth in [place] ([facility]) 00 :00 the Medical 20 mg morning Branch tablet and 1 tablet at noon and 1 tablet in the evening. dextroamphe 2023-0 3- No [id number] 20mg Take 1 [facility] tamine-amph 3-30 05-09 tablet by it y of etamine 00:00: 00:00 mouth in [place] ([facility]) 00 :00 the Medical 20 mg morning Branch tablet and 1 tablet at noon and 1 tablet in the evening. ZONISAMIDE 2022-0 Yes [id number] TAKE 1 [facility] 100 mg 3-27 CAPSULE BY ity of capsule 00:00: MOUTH [place] 00 TWICE A Medical DAY Branch ZONISAMIDE 2022-0 Yes [id number] TAKE 1 [facility] 100 mg 3-27 CAPSULE BY ity of capsule 00:00: MOUTH [place] 00 TWICE A Medical DAY Branch ZONISAMIDE 2022-0 Yes [id number] TAKE 1 [facility] 100 mg 3-27 CAPSULE BY ity of capsule 00:00: MOUTH [place] 00 TWICE A Medical DAY Branch ZONISAMIDE 2022-0 Yes [id number] TAKE 1 [facility] 100 mg 3-27 CAPSULE BY ity of capsule 00:00: MOUTH [place] 00 TWICE A Medical DAY Branch ZONISAMIDE 2022-0 Yes [id number] TAKE 1 [facility] 100 mg 3-27 CAPSULE BY ity of capsule 00:00: MOUTH [place] 00 TWICE A Medical DAY Branch ZONISAMIDE 2022-0 Yes [id number] TAKE 1 [facility] 100 mg 3-27 CAPSULE BY ity of capsule 00:00: MOUTH [place] 00 TWICE A Medical DAY Branch ZONISAMIDE 2022-0 Yes [id number] TAKE 1 [facility] 100 mg 3-27 CAPSULE BY ity of capsule 00:00: MOUTH [place] 00 TWICE A Medical DAY Branch ZONISAMIDE 2022-0 Yes [id number] TAKE 1 [facility] 100 mg 3-27 CAPSULE BY ity of capsule 00:00: MOUTH [place] 00 TWICE A Medical DAY Branch ZONISAMIDE 2022-0 Yes [id number] TAKE 1 [facility] 100 mg 3-27 CAPSULE BY ity of capsule 00:00: MOUTH [place] 00 TWICE A Medical DAY Branch ZONISAMIDE 2022-0 Yes [id number] TAKE 1 [facility] 100 mg 3-27 CAPSULE BY ity of capsule 00:00: MOUTH [place] 00 TWICE A Medical DAY Branch ZONISAMIDE 2022-0 Yes [id number] TAKE 1 [facility] 100 mg 3-27 CAPSULE BY ity of capsule 00:00: MOUTH [place] 00 TWICE A Medical DAY Branch ZONISAMIDE 2023-0 Yes [id number] TAKE 1 [facility] 100 mg 3-27 CAPSULE BY ity of capsule 00:00: MOUTH TWICE A Medical DAY Branch ZONISAMIDE 3-0 Yes [id number] TAKE 1 [facility] 100 mg 3-27 CAPSULE BY ity of capsule 00:00: MOUTH TWICE A Medical DAY Branch ZONISAMIDE 3-0 Yes [id number] TAKE 1 [facility] 100 mg 3-27 CAPSULE BY ity of capsule 00:00: MOUTH TWICE A Medical DAY Branch ZONISAMIDE 3-0 Yes [id number] TAKE 1 [facility] 100 mg 3-27 CAPSULE BY ity of capsule 00:00: MOUTH TWICE A Medical DAY Branch ZONISAMIDE 2022-0 Yes [id number] TAKE 1 [facility] 100 mg 3-27 CAPSULE BY ity of capsule 00:00: MOUTH TWICE A Medical DAY Branch ZONISAMIDE 3-0 Yes [id number] TAKE 1 [facility] 100 mg 3-27 CAPSULE BY ity of capsule 00:00: MOUTH TWICE A Medical DAY Branch ZONISAMIDE 3-0 Yes [id number] TAKE 1 [facility] 100 mg 3-27 CAPSULE BY ity of capsule 00:00: MOUTH TWICE A Medical DAY Branch ZONISAMIDE 3-0 Yes [id number] TAKE 1 [facility] 100 mg 3-27 CAPSULE BY ity of capsule 00:00: MOUTH TWICE A Medical DAY Branch ZONISAMIDE 3-0 Yes [id number] TAKE 1 [facility] 100 mg 3-27 CAPSULE BY ity of capsule 00:00: MOUTH TWICE A Medical DAY Branch ZONISAMIDE 3-0 Yes [id number] TAKE 1 [facility] 100 mg 3-27 CAPSULE BY ity of capsule 00:00: MOUTH TWICE A Medical DAY Branch ZONISAMIDE 3-0 Yes [id number] TAKE 1 [facility] 100 mg 3-27 CAPSULE BY ity of capsule 00:00: MOUTH TWICE A Medical DAY Branch ZONISAMIDE 3-0 Yes [id number] TAKE 1 [facility] 100 mg 3-27 CAPSULE BY ity of capsule 00:00: MOUTH TWICE A Medical DAY Branch ZONISAMIDE 3-0 Yes [id number] TAKE 1 [facility] 100 mg 3-27 CAPSULE BY ity of capsule 00:00: MOUTH [place] 00 TWICE A Medical DAY Branch ZONISAMIDE 2023-0 Yes [id number] TAKE 1 [facility] 100 mg 3-27 CAPSULE BY ity of capsule 00:00: MOUTH [place] TWICE A Medical DAY Branch ZONISAMIDE 3-0 Yes [id number] TAKE 1 [facility] 100 mg 3-27 CAPSULE BY ity of capsule 00:00: MOUTH TWICE A Medical DAY Branch ZONISAMIDE 2023-0 Yes [id number] TAKE 1 [facility] 100 mg 3-27 CAPSULE BY ity of capsule 00:00: MOUTH [place] TWICE A Medical DAY Branch ZONISAMIDE 3-0 Yes [id number] TAKE 1 [facility] 100 mg 3-27 CAPSULE BY ity of capsule 00:00: MOUTH TWICE A Medical DAY Branch ZONISAMIDE 3-0 Yes [id number] TAKE 1 [facility] 100 mg 3-27 CAPSULE BY ity of capsule 00:00: MOUTH TWICE A Medical DAY Branch ZONISAMIDE 3-0 Yes [id number] TAKE 1 [facility] 100 mg 3-27 CAPSULE BY ity of capsule 00:00: MOUTH TWICE A Medical DAY Branch ZONISAMIDE 3-0 Yes [id number] TAKE 1 [facility] 100 mg 3-27 CAPSULE BY ity of capsule 00:00: MOUTH TWICE A Medical DAY Branch ZONISAMIDE 3-0 Yes [id number] TAKE 1 [facility] 100 mg 3-27 CAPSULE BY ity of capsule 00:00: MOUTH TWICE A Medical DAY Branch ZONISAMIDE 3-0 Yes [id number] TAKE 1 [facility] 100 mg 3-27 CAPSULE BY ity of capsule 00:00: MOUTH TWICE A Medical DAY Branch ZONISAMIDE 3-0 Yes [id number] TAKE 1 [facility] 100 mg 3-27 CAPSULE BY ity of capsule 00:00: MOUTH 00 TWICE A Medical DAY Branch ZONISAMIDE 3-0 Yes [id number] TAKE 1 [facility] 100 mg 3-27 CAPSULE BY ity of capsule 00:00: MOUTH [place] 00 TWICE A Medical DAY Branch ZONISAMIDE 3-0 Yes [id number] TAKE 1 [facility] 100 mg 3-27 CAPSULE BY ity of capsule 00:00: MOUTH TWICE A Medical DAY Branch ZONISAMIDE 3-0 Yes [id number] TAKE 1 [facility] 100 mg 3-27 CAPSULE BY ity of capsule 00:00: MOUTH [place] 00 TWICE A Medical DAY Branch ZONISAMIDE 3-0 Yes [id number] TAKE 1 [facility] 100 mg 3-27 CAPSULE BY ity of capsule 00:00: MOUTH [place] 00 TWICE A Medical DAY Branch ZONISAMIDE 3-0 Yes [id number] TAKE 1 [facility] 100 mg 3-27 CAPSULE BY ity of capsule 00:00: MOUTH [place] 00 TWICE A Medical DAY Branch ZONISAMIDE 3-0 Yes [id number] TAKE 1 [facility] 100 mg 3-27 CAPSULE BY ity of capsule 00:00: MOUTH [place] 00 TWICE A Medical DAY Branch ZONISAMIDE 2022-0 Yes [id number] TAKE 1 [facility] 100 mg 3-27 CAPSULE BY ity of capsule 00:00: MOUTH [place] 00 TWICE A Medical DAY Branch ZONISAMIDE 2022-0 Yes [id number] TAKE 1 [facility] 100 mg 3-27 CAPSULE BY ity of capsule 00:00: MOUTH [place] 00 TWICE A Medical DAY Branch ZONISAMIDE 2022-0 Yes [id number] TAKE 1 [facility] 100 mg 3-27 CAPSULE BY ity of capsule 00:00: MOUTH [place] 00 TWICE A Medical DAY Branch ibuprofen 2023-0 2023- No 800mg 800 mg, [facility] vers (IBU) 06-09 03-14 Oral, ity of tablet 800 15:15: 15:05 ONCE, 1 [place] as mg 00 :00 dose, On Medical Tue Branch 06/09/22 at 1015, [facility] dextroamphe 3-0 Yes [id number] 20mg Take 1 [facility] tamine-amph 3-09 tablet by ity of etamine 00:00: mouth in [place] ([facility]) 00 the Medical 20 mg morning Branch tablet and 1 tablet at noon and 1 tablet in the evening. dextroamphe 2023-0 Yes [id number] 20mg Take 1 [facility] tamine-amph 3-09 tablet by ity of etamine 00:00: mouth in [place] ([facility]) 00 the Medical 20 mg morning Branch tablet and 1 tablet at noon and 1 tablet in the evening. dextroamphe 3-0 Yes [id number] 20mg Take 1 [facility] tamine-amph 3-09 tablet by ity of etamine 00:00: mouth in [place] ([facility]) 00 the Medical 20 mg morning Branch tablet and 1 tablet at noon and 1 tablet in the evening. dextroamphe 2023-0 Yes [id number] 20mg Take 1 [facility] tamine-amph 3-09 tablet by ity of etamine 00:00: mouth in [place] ([facility]) 00 the Medical 20 mg morning Branch tablet and 1 tablet at noon and 1 tablet in the evening. dextroamphe 2023-0 Yes [id number] 20mg Take 1 [facility] tamine-amph 3-09 tablet by ity of etamine 00:00: mouth in [place] ([facility]) 00 the Medical 20 mg morning Branch tablet and 1 tablet at noon and 1 tablet in the evening. dextroamphe 2023-0 Yes [id number] 20mg Take 1 [facility] tamine-amph 3-09 tablet by ity of etamine 00:00: mouth in [place] ([facility]) 00 the Medical 20 mg morning Branch tablet and 1 tablet at noon and 1 tablet in the evening. dextroamphe 2023-0 Yes [id number] 20mg Take 1 [facility] tamine-amph 3-09 tablet by ity of etamine 00:00: mouth in [place] ([facility]) 00 the Medical 20 mg morning Branch tablet and 1 tablet at noon and 1 tablet in the evening. dextroamphe 2023-0 Yes [id number] 20mg Take 1 [facility] tamine-amph 3-09 tablet by ity of etamine 00:00: mouth in [place] ([facility]) 00 the Medical 20 mg morning Branch tablet and 1 tablet at noon and 1 tablet in the evening. dextroamphe 2023-0 Yes [id number] 20mg Take 1 [facility] tamine-amph 3-09 tablet by ity of etamine 00:00: mouth in [place] ([facility]) 00 the Medical 20 mg morning Branch tablet and 1 tablet at noon and 1 tablet in the evening. dextroamphe 2023-0 Yes [id number] 20mg Take 1 [facility] tamine-amph 3-09 tablet by ity of etamine 00:00: mouth in [place] ([facility]) 00 the Medical 20 mg morning Branch tablet and 1 tablet at noon and 1 tablet in the evening. dextroamphe 2023-0 2023- No [id number] 20mg Take 1 [facility] tamine-amph 3-09 03-30 tablet by it y of etamine 00:00: 00:00 mouth in [place] ([facility]) 00 :00 the Medical 20 mg morning Branch tablet and 1 tablet at noon and 1 tablet in the evening. dextroamphe 2023-0 2023- No [id number] 20mg Take 1 [facility] tamine-amph 3-09 03-30 tablet by it y of etamine 00:00: 00:00 mouth in [place] ([facility]) 00 :00 the Medical 20 mg morning Branch tablet and 1 tablet at noon and 1 tablet in the evening. dextroamphe 2023-0 Yes [id number] 12.5mg Take 1 [facility] tamine-amph 2-27 tablet by ity of etamine 00:00: mouth in [place] ([facility]) 00 the Medical 12.5 mg morning Branch tablet and 1 tablet at noon and 1 tablet in the evening. clonazePAM 2023-0 Yes [id number] 1mg Take 2 [facility] (KLONOPIN) 2-27 tablets by ity of 0.5 mg 00:00: mouth in [place] tablet 00 the Medical morning Branch and 2 tablets at noon and 2 tablets in the evening. dextroamphe 2023-0 Yes [id number] 12.5mg Take 1 [facility] tamine-amph 2-27 tablet by ity of etamine 00:00: mouth in [place] [facility] the Medical 12.5 mg morning Branch tablet and 1 tablet at noon and 1 tablet in the evening. clonazePAM 2023-0 Yes [id number] 1mg Take 2 [facility] (KLONOPIN) 2-27 tablets by ity of 0.5 mg 00:00: mouth in [place] tablet 00 the Medical morning Branch and 2 tablets at noon and 2 tablets in the evening. clonazePAM 2023-0 Yes [id number] 1mg Take 2 [facility] (KLONOPIN) 2-27 tablets by ity of 0.5 mg 00:00: mouth in [place] tablet 00 the Medical morning Branch and 2 tablets at noon and 2 tablets in the evening. clonazePAM 2023-0 Yes [id number] 1mg Take 2 [facility] (KLONOPIN) 2-27 tablets by ity of 0.5 mg 00:00: mouth in [place] tablet 00 the Medical morning Branch and 2 tablets at noon and 2 tablets in the evening. clonazePAM 2023-0 Yes [id number] 1mg Take 2 [facility] (KLONOPIN) 2-27 tablets by ity of 0.5 mg 00:00: mouth in [place] tablet 00 the Medical morning Branch and 2 tablets at noon and 2 tablets in the evening. clonazePAM 2023-0 Yes [id number] 1mg Take 2 [facility] (KLONOPIN) 2-27 tablets by ity of 0.5 mg 00:00: mouth in [place] tablet 00 the Medical morning Branch and 2 tablets at noon and 2 tablets in the evening. clonazePAM 2023-0 Yes [id number] 1mg Take 2 [facility] (KLONOPIN) 2-27 tablets by ity of 0.5 mg 00:00: mouth in [place] tablet 00 the Medical morning Branch and 2 tablets at noon and 2 tablets in the evening. clonazePAM 2023-0 Yes [id number] 1mg Take 2 [facility] (KLONOPIN) 2-27 tablets by ity of 0.5 mg 00:00: mouth in [place] tablet 00 the Medical morning Branch and 2 tablets at noon and 2 tablets in the evening. clonazePAM 2023-0 Yes [id number] 1mg Take 2 [facility] (KLONOPIN) 2-27 tablets by ity of 0.5 mg 00:00: mouth in [place] tablet 00 the Medical morning Branch and 2 tablets at noon and 2 tablets in the evening. clonazePAM 2023-0 Yes [id number] 1mg Take 2 [facility] (KLONOPIN) 2-27 tablets by ity of 0.5 mg 00:00: mouth in [place] tablet 00 the Medical morning Branch and 2 tablets at noon and 2 tablets in the evening. clonazePAM 2023-0 Yes [id number] 1mg Take 2 [facility] (KLONOPIN) 2-27 tablets by ity of 0.5 mg 00:00: mouth in [place] tablet 00 the Medical morning Branch and 2 tablets at noon and 2 tablets in the evening. clonazePAM 2023-0 Yes [id number] 1mg Take 2 [facility] (KLONOPIN) 2-27 tablets by ity of 0.5 mg 00:00: mouth in [place] tablet 00 the Medical morning Branch and 2 tablets at noon and 2 tablets in the evening. clonazePAM 2023-0 Yes [id number] 1mg Take 2 [facility] (KLONOPIN) 2-27 tablets by ity of 0.5 mg 00:00: mouth in [place] tablet 00 the Medical morning Branch and 2 tablets at noon and 2 tablets in the evening. clonazePAM 2023-0 Yes [id number] 1mg Take 2 [facility] (KLONOPIN) 2-27 tablets by ity of 0.5 mg 00:00: mouth in [place] tablet 00 the Medical morning Branch and 2 tablets at noon and 2 tablets in the evening. clonazePAM 2023-0 Yes [id number] 1mg Take 2 [facility] (KLONOPIN) 2-27 tablets by ity of 0.5 mg 00:00: mouth in [place] tablet 00 the Medical morning Branch and 2 tablets at noon and 2 tablets in the evening. clonazePAM 2023-0 Yes [id number] 1mg Take 2 [facility] (KLONOPIN) 2-27 tablets by ity of 0.5 mg 00:00: mouth in [place] tablet 00 the Medical morning Branch and 2 tablets at noon and 2 tablets in the evening. clonazePAM 2023-0 Yes [id number] 1mg Take 2 [facility] (KLONOPIN) 2-27 tablets by ity of 0.5 mg 00:00: mouth in [place] tablet 00 the Medical morning Branch and 2 tablets at noon and 2 tablets in the evening. clonazePAM 2023-0 Yes [id number] 1mg Take 2 [facility] (KLONOPIN) 2-27 tablets by ity of 0.5 mg 00:00: mouth in [place] tablet 00 the Medical morning Branch and 2 tablets at noon and 2 tablets in the evening. clonazePAM 2023-0 Yes [id number] 1mg Take 2 [facility] (KLONOPIN) 2-27 tablets by ity of 0.5 mg 00:00: mouth in [place] tablet 00 the Medical morning Branch and 2 tablets at noon and 2 tablets in the evening. clonazePAM 2023-0 Yes [id number] 1mg Take 2 [facility] (KLONOPIN) 2-27 tablets by ity of 0.5 mg 00:00: mouth in [place] tablet 00 the Medical morning Branch and 2 tablets at noon and 2 tablets in the evening. clonazePAM 2023-0 Yes [id number] 1mg Take 2 [facility] (KLONOPIN) 2-27 tablets by ity of 0.5 mg 00:00: mouth in [place] tablet 00 the Medical morning Branch and 2 tablets at noon and 2 tablets in the evening. clonazePAM 2023-0 Yes [id number] 1mg Take 2 [facility] (KLONOPIN) 2-27 tablets by ity of 0.5 mg 00:00: mouth in [place] tablet 00 the Medical morning Branch and 2 tablets at noon and 2 tablets in the evening. clonazePAM 2023-0 Yes [id number] 1mg Take 2 [facility] (KLONOPIN) 2-27 tablets by ity of 0.5 mg 00:00: mouth in [place] tablet 00 the Medical morning Branch and 2 tablets at noon and 2 tablets in the evening. clonazePAM 2023-0 Yes [id number] 1mg Take 2 [facility] (KLONOPIN) 2-27 tablets by ity of 0.5 mg 00:00: mouth in [place] tablet 00 the Medical morning Branch and 2 tablets at noon and 2 tablets in the evening. clonazePAM 2023-0 Yes [id number] 1mg Take 2 [facility] (KLONOPIN) 2-27 tablets by ity of 0.5 mg 00:00: mouth in [place] tablet 00 the Medical morning Branch and 2 tablets at noon and 2 tablets in the evening. clonazePAM 2023-0 Yes [id number] 1mg Take 1 [facility] 1 mg tablet 2-27 tablet by ity of 00:00: mouth in [place] 00 the Medical morning Branch and 1 tablet at noon and 1 tablet in the evening. dextroamphe 2023-0 Yes [id number] 12.5mg Take 1 [facility] tamine-amph 2-27 tablet by ity of etamine 00:00: mouth in [place] ([facility]) 00 the Medical 12.5 mg morning Branch tablet and 1 tablet at noon and 1 tablet in the evening. clonazePAM 2023-0 Yes [id number] 1mg Take 1 [facility] 1 mg tablet 2-27 tablet by ity of 00:00: mouth in [place] 00 the Medical morning Branch and 1 tablet at noon and 1 tablet in the evening. dextroamphe 2023-0 Yes [id number] 12.5mg Take 1 [facility] tamine-amph 2-27 tablet by ity of etamine 00:00: mouth in [place] ([facility]) 00 the Medical 12.5 mg morning Branch tablet and 1 tablet at noon and 1 tablet in the evening. dextroamphe 2023-0 Yes [id number] 12.5mg Take 1 [facility] tamine-amph 2-27 tablet by ity of etamine 00:00: mouth in [place] ([facility]) 00 the Medical 12.5 mg morning Branch tablet and 1 tablet at noon and 1 tablet in the evening. clonazePAM 3-0 Yes [id number] 1mg Take 2 [facility] (KLONOPIN) 2-27 tablets by ity of 0.5 mg 00:00: mouth in [place] tablet 00 the Medical morning Branch and 2 tablets at noon and 2 tablets in the evening. dextroamphe 2023-0 Yes [id number] 12.5mg Take 1 [facility] tamine-amph 2-27 tablet by ity of etamine 00:00: mouth in [place] ([facility]) 00 the Medical 12.5 mg morning Branch tablet and 1 tablet at noon and 1 tablet in the evening. clonazePAM 3-0 Yes [id number] 1mg Take 2 [facility] (KLONOPIN) 2-27 tablets by ity of 0.5 mg 00:00: mouth in [place] tablet 00 the Medical morning Branch and 2 tablets at noon and 2 tablets in the evening. dextroamphe 3-0 Yes [id number] 12.5mg Take 1 [facility] tamine-amph 2-27 tablet by ity of etamine 00:00: mouth in [place] ([facility]) 00 the Medical 12.5 mg morning Branch tablet and 1 tablet at noon and 1 tablet in the evening. clonazePAM 3-0 Yes [id number] 1mg Take 2 [facility] (KLONOPIN) 2-27 tablets by ity of 0.5 mg 00:00: mouth in [place] tablet 00 the Medical morning Branch and 2 tablets at noon and 2 tablets in the evening. clonazePAM 3-0 2022- No [id number] 1mg Take 2 [facility] (KLONOPIN) 2-27 05-09 tablets by it y of 0.5 mg 00:00: 00:00 mouth in [place] tablet 00 :00 the Medical morning Branch and 2 tablets at noon and 2 tablets in the evening. clonazePAM 3-0 3- No [id number] 1mg Take 2 [facility] (KLONOPIN) 2-27 05-09 tablets by it y of 0.5 mg 00:00: 00:00 mouth in [place] tablet 00 :00 the Medical morning Branch and 2 tablets at noon and 2 tablets in the evening. dextroamphe 3-0 3- No [id number] 12.5mg Take 1 [facility] tamine-amph 2-27 -09 tablet by it y of etamine 00:00: 00:00 mouth in [place] [facility] :00 the Medical 12.5 mg morning Branch tablet and 1 tablet at noon and 1 tablet in the evening. clonazePAM 3-0 2023- No [id number] 1mg Take 1 [facility] 1 mg tablet 2- tablet by it y of 00:00: 00:00 mouth in [place] 00 :00 the Medical morning Branch and 1 tablet at noon and 1 tablet in the evening. dextroamphe 2023-0 Yes [id number] 12.5mg Take 1 [facility] tamine-amph 2-01 tablet by ity of etamine 00:00: mouth in [place] ([facility]) 00 the Medical 12.5 mg morning Branch tablet and 1 tablet at noon and 1 tablet in the evening. dextroamphe 3-0 Yes [id number] 12.5mg Take 1 [facility] tamine-amph 2-01 tablet by ity of etamine 00:00: mouth in [place] ([facility]) 00 the Medical 12.5 mg morning Branch tablet and 1 tablet at noon and 1 tablet in the evening. dextroamphe 3-0 Yes [id number] 12.5mg Take 1 [facility] tamine-amph 2-01 tablet by ity of etamine 00:00: mouth in [place] ([facility] 00 the Medical 12.5 mg morning Branch tablet and 1 tablet at noon and 1 tablet in the evening. dextroamphe 3-0 Yes [id number] 12.5mg Take 1 [facility] tamine-amph 2-01 tablet by ity of etamine 00:00: mouth in [place] ([facility] 00 the Medical 12.5 mg morning Branch tablet and 1 tablet at noon and 1 tablet in the evening. dextroamphe 3-0 2023- No [id number] 12.5mg Take 1 [facility] tamine-amph 2-03 30- tablet by it y of etamine 00:00: 00:00 mouth in [place] ([facility]) 00 :00 the Medical 12.5 mg morning Branch tablet and 1 tablet at noon and 1 tablet in the evening. dextroamphe 3-0 3- No [id number] 12.5mg Take 1 [facility] tamine-amph 2-01 - tablet by it y of etamine 00:00: 00:00 mouth in [place] ([facility] :00 the Medical 12.5 mg morning Branch tablet and 1 tablet at noon and 1 tablet in the evening. dextroamphe 2023-0 2023- No [id number] 12.5mg Take 1 [facility] tamine-amph 2-05-25 tablet by it y of etamine 00:00: 00:00 mouth in [place] ([facility]) 00 :00 the Medical 12.5 mg morning Branch tablet and 1 tablet at noon and 1 tablet in the evening. dextroamphe 2023-0 Yes [id number] 12.5mg Take 1 [facility] tamine-amph 1-10 tablet by ity of etamine 00:00: mouth in [place] ([facility] 00 the Medical 12.5 mg morning Branch tablet and 1 tablet at noon and 1 tablet in the evening. dextroamphe 2023-0 Yes [id number] 12.5mg Take 1 [facility] tamine-amph 1-10 tablet by ity of etamine 00:00: mouth in [place] ([facility] 00 the Medical 12.5 mg morning Branch tablet and 1 tablet at noon and 1 tablet in the evening. dextroamphe 2023-0 Yes [id number] 12.5mg Take 1 [facility] tamine-amph 1-10 tablet by ity of etamine 00:00: mouth in [place] [facility] [facility] 12.5 mg morning Branch tablet and 1 tablet at noon and 1 tablet in the evening. dextroamphe 2023-0 Yes [id number] 12.5mg Take 1 [facility] tamine-amph 1-10 tablet by ity of etamine 00:00: [facility] [place] [facility] the Medical 12.5 mg morning Branch tablet and 1 tablet at noon and 1 tablet in the evening. dextroamphe 2023-0 Yes [id number] 12.5mg Take 1 [facility] tamine-amph 1-10 tablet by ity of etamine 00:00: mouth [facility] [place] [facility] the Medical 12.5 mg morning Branch tablet and 1 tablet at noon and 1 tablet in the evening. dextroamphe 2023-0 Yes [id number] 12.5mg Take 1 [facility] tamine-amph 1-10 tablet by ity of etamine 00:00: mouth in [place] ([facility]) 00 the Medical 12.5 mg morning Branch tablet and 1 tablet at noon and 1 tablet in the evening. dextroamphe 3-0 Yes [id number] 12.5mg Take 1 [facility] tamine-amph 1-10 tablet by ity of etamine 00:00: mouth in [place] ([facility]) 00 the Medical 12.5 mg morning Branch tablet and 1 tablet at noon and 1 tablet in the evening. dextroamphe 2022-0 3- No [id number] 12.5mg Take 1 [facility] tamine-amph 1-10 - tablet by it y of etamine 00:00: 00:00 mouth in [place] ([facility]) 00 :00 the Medical 12.5 mg morning Branch tablet and 1 tablet at noon and 1 tablet in the evening. dextroamphe 2022-0 3- No [id number] 12.5mg Take 1 [facility] tamine-amph 1-10 - tablet by it y of etamine 00:00: 00:00 mouth in [place] ([facility]) 00 :00 the Medical 12.5 mg morning Branch tablet and 1 tablet at noon and 1 tablet in the evening. dextroamphe 2022-0 Yes [id number] 15mg Take 1 [facility] tamine-amph 1-09 tablet by ity of etamine 00:00: mouth in [place] ([facility]) 00 the Medical 15 mg morning Branch tablet and 1 tablet at noon and 1 tablet in the evening. dextroamphe 3-0 Yes [id number] 15mg Take 1 [facility] tamine-amph 1-09 tablet by ity of etamine 00:00: mouth in [place] ([facility]) 00 the Medical 15 mg morning Branch tablet and 1 tablet at noon and 1 tablet in the evening. dextroamphe 3-0 3- No [id number] 15mg Take 1 [facility] tamine-amph 1-09 -10 tablet by it y of etamine 00:00: 00:00 mouth in [place] ([facility]) 00 :00 the Medical 15 mg morning Branch tablet and 1 tablet at noon and 1 tablet in the evening. SYNTHROID 3-0 Yes [id number] TAKE 1 U nivers 150 mcg 1-02 TABLET BY ity of tablet 00:00: MOUTH [place] 00 EVERY DAY Medical IN THE [facility] SYNTHROID 0 Yes [id number] TAKE 1 U nivers 150 mcg 1-02 TABLET BY ity of tablet 00:00: MOUTH [place] 00 EVERY DAY Medical IN THE [facility] SYNTHROID 0 Yes [id number] TAKE 1 U nivers 150 mcg 1-02 TABLET BY ity of tablet 00:00: MOUTH [place] 00 EVERY DAY Medical IN THE [facility] SYNTHROID Yes [id number] TAKE 1 U nivers 150 mcg 1-02 TABLET BY ity of tablet 00:00: MOUTH [place] 00 EVERY DAY Medical IN THE [facility] SYNTHROID Yes [id number] TAKE 1 U nivers 150 mcg 1-02 TABLET BY ity of tablet 00:00: MOUTH [place] 00 EVERY DAY Medical IN THE [facility] SYNTHROID Yes [id number] TAKE 1 U nivers 150 mcg 1-02 TABLET BY ity of tablet 00:00: MOUTH [place] 00 EVERY DAY Medical IN THE [facility] SYNTHROID Yes [id number] TAKE 1 U nivers 150 mcg 1-02 TABLET BY ity of tablet 00:00: MOUTH [place] 00 EVERY DAY Medical IN THE [facility] SYNTHROID Yes [id number] TAKE 1 U nivers 150 mcg 1-02 TABLET BY ity of tablet 00:00: MOUTH [place] 00 EVERY DAY Medical IN THE [facility] SYNTHROID Yes [id number] TAKE 1 U nivers 150 mcg 1-02 TABLET BY ity of tablet 00:00: MOUTH [place] 00 EVERY DAY Medical IN THE [facility] SYNTHROID 0 Yes [id number] TAKE 1 U nivers 150 mcg 1-02 TABLET BY ity of tablet 00:00: MOUTH [place] 00 EVERY DAY Medical IN THE [facility] SYNTHROID 0 Yes [id number] TAKE 1 U nivers 150 mcg 1-02 TABLET BY ity of tablet 00:00: MOUTH [place] 00 EVERY DAY Medical IN THE [facility] SYNTHROID 0 Yes [id number] TAKE 1 U nivers 150 mcg 1-02 TABLET BY ity of tablet 00:00: MOUTH [place] 00 EVERY DAY Medical IN THE [facility] SYNTHROID 0 Yes [id number] TAKE 1 U nivers 150 mcg 1-02 TABLET BY ity of tablet 00:00: MOUTH [place] 00 EVERY DAY Medical IN THE [facility] SYNTHROID Yes [id number] TAKE 1 U nivers 150 mcg 1-02 TABLET BY ity of tablet 00:00: MOUTH [place] 00 EVERY DAY Medical IN THE [facility] SYNTHROID Yes [id number] TAKE 1 U nivers 150 mcg 1-02 TABLET BY ity of tablet 00:00: MOUTH [place] 00 EVERY DAY Medical IN THE [facility] SYNTHROID Yes [id number] TAKE 1 U nivers 150 mcg 1-02 TABLET BY ity of tablet 00:00: MOUTH [place] 00 EVERY DAY Medical IN THE [facility] SYNTHROID Yes [id number] TAKE 1 U nivers 150 mcg 1-02 TABLET BY ity of tablet 00:00: MOUTH [place] 00 EVERY DAY Medical IN THE [facility] SYNTHROID Yes [id number] TAKE 1 U nivers 150 mcg 1-02 TABLET BY ity of tablet 00:00: MOUTH [place] 00 EVERY DAY Medical IN THE [facility] SYNTHROID Yes [id number] TAKE 1 U nivers 150 mcg 1-02 TABLET BY ity of tablet 00:00: MOUTH [place] 00 EVERY DAY Medical IN THE [facility] SYNTHROID Yes [id number] TAKE 1 U nivers 150 mcg 1-02 TABLET BY ity of tablet 00:00: MOUTH [place] 00 EVERY DAY Medical IN THE [facility] SYNTHROID Yes [id number] TAKE 1 U nivers 150 mcg 1-02 TABLET BY ity of tablet 00:00: MOUTH [place] 00 EVERY DAY Medical IN THE [facility] SYNTHROID Yes [id number] TAKE 1 U nivers 150 mcg 1-02 TABLET BY ity of tablet 00:00: MOUTH [place] 00 EVERY DAY Medical IN THE [facility] SYNTHROID Yes [id number] TAKE 1 U nivers 150 mcg 1-02 TABLET BY ity of tablet 00:00: MOUTH [place] 00 EVERY DAY Medical IN THE [facility] SYNTHROID Yes [id number] TAKE 1 U nivers 150 mcg 1-02 TABLET BY ity of tablet 00:00: MOUTH [place] 00 EVERY DAY Medical IN THE [facility] SYNTHROID Yes [id number] TAKE 1 U nivers 150 mcg 1-02 TABLET BY ity of tablet 00:00: MOUTH [place] 00 EVERY DAY Medical IN THE [facility] SYNTHROID 2023-0 Yes [id number] TAKE 1 U nivers 150 mcg 1-02 TABLET BY ity of tablet 00:00: MOUTH [place] 00 EVERY DAY Medical IN THE [facility] SYNTHROID 0 Yes [id number] TAKE 1 U nivers 150 mcg 1-02 TABLET BY ity of tablet 00:00: MOUTH [place] 00 EVERY DAY Medical IN THE [facility] SYNTHROID 0 Yes [id number] TAKE 1 U nivers 150 mcg 1-02 TABLET BY ity of tablet 00:00: MOUTH [place] 00 EVERY DAY Medical IN THE [facility] SYNTHROID Yes [id number] TAKE 1 U nivers 150 mcg 1-02 TABLET BY ity of tablet 00:00: MOUTH [place] 00 EVERY DAY Medical IN THE [facility] SYNTHROID Yes [id number] TAKE 1 U nivers 150 mcg 1-02 TABLET BY ity of tablet 00:00: MOUTH [place] 00 EVERY DAY Medical IN THE [facility] SYNTHROID Yes [id number] TAKE 1 U nivers 150 mcg 1-02 TABLET BY ity of tablet 00:00: MOUTH [place] 00 EVERY DAY Medical IN THE [facility] SYNTHROID Yes [id number] TAKE 1 U nivers 150 mcg 1-02 TABLET BY ity of tablet 00:00: MOUTH [place] 00 EVERY DAY Medical IN THE [facility] SYNTHROID 0 Yes [id number] TAKE 1 U nivers 150 mcg 1-02 TABLET BY ity of tablet 00:00: MOUTH [place] 00 EVERY DAY Medical IN THE [facility] SYNTHROID 0 Yes [id number] TAKE 1 U nivers 150 mcg 1-02 TABLET BY ity of tablet 00:00: MOUTH [place] 00 EVERY DAY Medical IN THE [facility] SYNTHROID 0 Yes [id number] TAKE 1 U nivers 150 mcg 1-02 TABLET BY ity of tablet 00:00: MOUTH [place] 00 EVERY DAY Medical IN THE [facility] SYNTHROID 0 Yes [id number] TAKE 1 U nivers 150 mcg 1-02 TABLET BY ity of tablet 00:00: MOUTH [place] 00 EVERY DAY Medical IN THE [facility] SYNTHROID 0 Yes [id number] TAKE 1 U nivers 150 mcg 1-02 TABLET BY ity of tablet 00:00: MOUTH [place] 00 EVERY DAY Medical IN THE [facility] SYNTHROID Yes [id number] TAKE 1 U nivers 150 mcg 1-02 TABLET BY ity of tablet 00:00: MOUTH [place] 00 EVERY DAY Medical IN THE [facility] SYNTHROID 0 Yes [id number] TAKE 1 U nivers 150 mcg 1-02 TABLET BY ity of tablet 00:00: MOUTH [place] 00 EVERY DAY Medical IN THE [facility] SYNTHROID 0 Yes [id number] TAKE 1 U nivers 150 mcg 1-02 TABLET BY ity of tablet 00:00: MOUTH [place] 00 EVERY DAY Medical IN THE [facility] SYNTHROID Yes [id number] TAKE 1 U nivers 150 mcg 1-02 TABLET BY ity of tablet 00:00: MOUTH [place] 00 EVERY DAY Medical IN THE [facility] SYNTHROID Yes [id number] TAKE 1 U nivers 150 mcg 1-02 TABLET BY ity of tablet 00:00: MOUTH [place] 00 EVERY DAY Medical IN THE [facility] SYNTHROID Yes [id number] TAKE 1 U nivers 150 mcg 1-02 TABLET BY ity of tablet 00:00: MOUTH [place] 00 EVERY DAY Medical IN THE [facility] SYNTHROID Yes [id number] TAKE 1 U nivers 150 mcg 1-02 TABLET BY ity of tablet 00:00: MOUTH [place] 00 EVERY DAY Medical IN THE [facility] SYNTHROID Yes [id number] TAKE 1 U nivers 150 mcg 1-02 TABLET BY ity of tablet 00:00: MOUTH [place] 00 EVERY DAY Medical IN THE [facility] SYNTHROID 0 Yes [id number] TAKE 1 U nivers 150 mcg 1-02 TABLET BY ity of tablet 00:00: MOUTH [place] 00 EVERY DAY Medical IN THE [facility] SYNTHROID 0 Yes [id number] TAKE 1 U nivers 150 mcg 1-02 TABLET BY ity of tablet 00:00: MOUTH [place] 00 EVERY DAY Medical IN THE [facility] SYNTHROID 0 Yes [id number] TAKE 1 U nivers 150 mcg 1-02 TABLET BY ity of tablet 00:00: MOUTH [place] 00 EVERY DAY Medical IN THE [facility] SYNTHROID 0 Yes [id number] TAKE 1 U nivers 150 mcg 1-02 TABLET BY ity of tablet 00:00: MOUTH [place] 00 EVERY DAY Medical IN THE [facility] SYNTHROID 0 Yes [id number] TAKE 1 U nivers 150 mcg 1-02 TABLET BY ity of tablet 00:00: MOUTH [place] 00 EVERY DAY Medical IN THE [place] MORNING SYNTHROID Yes [id number] TAKE 1 U nivers 150 mcg 1-02 TABLET BY ity of tablet 00:00: MOUTH [place] 00 EVERY DAY Medical IN THE [place] MORNING SYNTHROID Yes [id number] TAKE 1 U nivers 150 mcg 1-02 TABLET BY ity of tablet 00:00: MOUTH [place] 00 EVERY DAY Medical IN THE [place] MORNING SYNTHROID Yes [id number] TAKE 1 U nivers 150 mcg 1-02 TABLET BY ity of tablet 00:00: MOUTH [place] 00 EVERY DAY Medical IN THE [place] MORNING SYNTHROID Yes [id number] TAKE 1 U nivers 150 mcg 1-02 TABLET BY ity of tablet 00:00: MOUTH [place] 00 EVERY DAY Medical IN THE [place] MORNING SYNTHROID Yes [id number] TAKE 1 U nivers 150 mcg 1-02 TABLET BY ity of tablet 00:00: MOUTH [place] 00 EVERY DAY Medical IN THE [place] MORNING SYNTHROID 2022- No [id number] TAKE 1 [facility] 150 mcg 1-02 05-21 TABLET BY ity of tablet 00:00: 00:00 MOUTH [place] 00 :00 EVERY DAY Medical IN THE [place] MORNING ZONISAMIDE 2021-03 Yes [id number] TAKE 1 [facility] 100 mg 2-27 CAPSULE BY ity of capsule 00:00: MOUTH [place] 00 TWICE A Medical DAY [place] ZONISAMIDE 2021-03 Yes [id number] TAKE 1 [facility] 100 mg 2-27 CAPSULE BY ity of capsule 00:00: MOUTH [place] 00 TWICE A Medical DAY [place] ZONISAMIDE 2021-03 Yes [id number] TAKE 1 [facility] 100 mg 2-27 CAPSULE BY ity of capsule 00:00: MOUTH [place] 00 TWICE A Medical DAY [place] ZONISAMIDE 2021-03 Yes [id number] TAKE 1 [facility] 100 mg 2-27 CAPSULE BY ity of capsule 00:00: MOUTH [place] 00 TWICE A Medical DAY [place] ZONISAMIDE 2021-03 Yes [id number] TAKE 1 [facility] 100 mg 2-27 CAPSULE BY ity of capsule 00:00: MOUTH [place] 00 TWICE A Medical DAY [place] ZONISAMIDE 2021-03 Yes [id number] TAKE 1 [facility] 100 mg 2-27 CAPSULE BY ity of capsule 00:00: MOUTH [place] 00 TWICE A Medical DAY [place] ZONISAMIDE 2021- Yes [id number] TAKE 1 [facility] 100 mg 2-27 CAPSULE BY ity of capsule 00:00: MOUTH [place] TWICE A Medical DAY Branch ZONISAMIDE 2021-03 Yes [id number] TAKE 1 [facility] 100 mg 2-27 CAPSULE BY ity of capsule 00:00: MOUTH [place] TWICE A Medical DAY Branch ZONISAMIDE 2021-03 Yes [id number] TAKE 1 [facility] 100 mg 2-27 CAPSULE BY ity of capsule 00:00: MOUTH [place] TWICE A Medical DAY Branch ZONISAMIDE 2021-03 Yes [id number] TAKE 1 [facility] 100 mg 2-27 CAPSULE BY ity of capsule 00:00: MOUTH [place] TWICE A Medical DAY Branch ZONISAMIDE 2021-03 Yes [id number] TAKE 1 [facility] 100 mg 2-27 CAPSULE BY ity of capsule 00:00: MOUTH [place] TWICE A Medical DAY Branch ZONISAMIDE 2021-03 Yes [id number] TAKE 1 [facility] 100 mg 2-27 CAPSULE BY ity of capsule 00:00: MOUTH [place] TWICE A Medical DAY Branch ZONISAMIDE 2021-03 Yes [id number] TAKE 1 [facility] 100 mg 2-27 CAPSULE BY ity of capsule 00:00: MOUTH [place] TWICE A Medical DAY Branch ZONISAMIDE 2021-03 Yes [id number] TAKE 1 [facility] 100 mg 2-27 CAPSULE BY ity of capsule 00:00: MOUTH [place] TWICE A Medical DAY Branch ZONISAMIDE 2021-03 Yes [id number] TAKE 1 [facility] 100 mg 2-27 CAPSULE BY ity of capsule 00:00: MOUTH [place] TWICE A Medical DAY Branch ZONISAMIDE 2021-03 Yes [id number] TAKE 1 [facility] 100 mg 2-27 CAPSULE BY ity of capsule 00:00: MOUTH [place] 00 TWICE A Medical DAY Branch ZONISAMIDE 2021-03 Yes [id number] TAKE 1 [facility] 100 mg 2-27 CAPSULE BY ity of capsule 00:00: MOUTH [place] TWICE A Medical DAY Branch ZONISAMIDE 2021-03 Yes [id number] TAKE 1 [facility] 100 mg 2-27 CAPSULE BY ity of capsule 00:00: MOUTH [place] TWICE A Medical DAY Branch ZONISAMIDE 2021-03 Yes [id number] TAKE 1 [facility] 100 mg 2-27 CAPSULE BY ity of capsule 00:00: MOUTH [place] TWICE A Medical DAY Branch ZONISAMIDE 2021-03 Yes [id number] TAKE 1 [facility] 100 mg 2-27 CAPSULE BY ity of capsule 00:00: MOUTH [place] TWICE A Medical DAY Branch ZONISAMIDE 2021-03 Yes [id number] TAKE 1 [facility] 100 mg 2-27 CAPSULE BY ity of capsule 00:00: MOUTH TWICE A Medical DAY Branch ZONISAMIDE 2021-03 Yes [id number] TAKE 1 [facility] 100 mg 2-27 CAPSULE BY ity of capsule 00:00: MOUTH [place] TWICE A Medical DAY Branch ZONISAMIDE 2021-03 Yes [id number] TAKE 1 [facility] 100 mg 2-27 CAPSULE BY ity of capsule 00:00: MOUTH TWICE A Medical DAY Branch ZONISAMIDE 2021-03 Yes [id number] TAKE 1 [facility] 100 mg 2-27 CAPSULE BY ity of capsule 00:00: MOUTH TWICE A Medical DAY Branch ZONISAMIDE 2021-03 Yes [id number] TAKE 1 [facility] 100 mg 2-27 CAPSULE BY ity of capsule 00:00: MOUTH [place] TWICE A Medical DAY Branch ZONISAMIDE 2021-03 Yes [id number] TAKE 1 [facility] 100 mg 2-27 CAPSULE BY ity of capsule 00:00: MOUTH TWICE A Medical DAY Branch ZONISAMIDE 2021-03 Yes [id number] TAKE 1 [facility] 100 mg 2-27 CAPSULE BY ity of capsule 00:00: MOUTH TWICE A Medical DAY Branch ZONISAMIDE 2021-03 Yes [id number] TAKE 1 [facility] 100 mg 2-27 CAPSULE BY ity of capsule 00:00: MOUTH TWICE A Medical DAY Branch ZONISAMIDE 2021-03 Yes [id number] TAKE 1 [facility] 100 mg 2-27 CAPSULE BY ity of capsule 00:00: MOUTH TWICE A Medical DAY Branch ZONISAMIDE 2021-03 Yes [id number] TAKE 1 [facility] 100 mg 2-27 CAPSULE BY ity of capsule 00:00: MOUTH [place] 00 TWICE A Medical DAY Branch ZONISAMIDE 2021-03 Yes [id number] TAKE 1 [facility] 100 mg 2-27 CAPSULE BY ity of capsule 00:00: MOUTH TWICE A Medical DAY Branch ZONISAMIDE 2021-03 Yes [id number] TAKE 1 [facility] 100 mg 2-27 CAPSULE BY ity of capsule 00:00: MOUTH [place] 00 TWICE A Medical DAY Branch ZONISAMIDE 2021-03 Yes [id number] TAKE 1 [facility] 100 mg 2-27 CAPSULE BY ity of capsule 00:00: MOUTH [place] 00 TWICE A Medical DAY Branch ZONISAMIDE 2021-03 Yes [id number] TAKE 1 [facility] 100 mg 2-27 CAPSULE BY ity of capsule 00:00: MOUTH [place] 00 TWICE A Medical DAY Branch ZONISAMIDE 2021-03- No [id number] TAKE 1 [facility] 100 mg 2-27 03-27 CAPSULE BY ity of capsule 00:00: 00:00 MOUTH [place] 00 :00 TWICE A Medical DAY Branch dextroamphe 2021-03 Yes [id number] 15mg Take 1 [facility] tamine-amph 2-20 tablet by ity of etamine 00:00: mouth in [place] ([facility]) 00 the Medical 15 mg morning Branch tablet and 1 tablet at noon and 1 tablet in the evening. dextroamphe 2021-03 Yes [id number] 20mg Take 1 [facility] tamine-amph 2-20 tablet by ity of etamine 00:00: mouth in [place] ([facility]) 00 the Medical 20 mg morning Branch tablet and 1 tablet at noon and 1 tablet in the evening. dextroamphe 2021-03 Yes [id number] 20mg Take 1 [facility] tamine-amph 2-20 tablet by ity of etamine 00:00: mouth in [place] [facility] 00 the Medical 20 mg morning Branch tablet and 1 tablet at noon and 1 tablet in the evening. dextroamphe 2021-03 Yes [id number] 15mg Take 1 [facility] tamine-amph 2-20 tablet by ity of etamine 00:00: mouth in [place] ([facility]) 00 the Medical 15 mg morning Branch tablet and 1 tablet at noon and 1 tablet in the evening. dextroamphe 2021-03 Yes [id number] 20mg Take 1 [facility] tamine-amph 2-20 tablet by ity of etamine 00:00: mouth in [place] ([facility]) 00 the Medical 20 mg morning Branch tablet and 1 tablet at noon and 1 tablet in the evening. dextroamphe 2021-03 Yes [id number] 15mg Take 1 [facility] tamine-amph 2-20 tablet by ity of etamine 00:00: mouth in [place] ([facility]) 00 the Medical 15 mg morning Branch tablet and 1 tablet at noon and 1 tablet in the evening. dextroamphe 2021-03 Yes [id number] 20mg Take 1 [facility] tamine-amph 2-20 tablet by ity of etamine 00:00: mouth in [place] ([facility]) 00 the Medical 20 mg morning Branch tablet and 1 tablet at noon and 1 tablet in the evening. dextroamphe 2021-03 Yes [id number] 15mg Take 1 [facility] tamine-amph 2-20 tablet by ity of etamine 00:00: mouth in [place] ([facility]) 00 the Medical 15 mg morning Branch tablet and 1 tablet at noon and 1 tablet in the evening. dextroamphe 2021-03 Yes [id number] 20mg Take 1 [facility] tamine-amph 2-20 tablet by ity of etamine 00:00: mouth in [place] ([facility]) 00 the Medical 20 mg morning Branch tablet and 1 tablet at noon and 1 tablet in the evening. dextroamphe 2021-03 Yes [id number] 15mg Take 1 [facility] tamine-amph 2-20 tablet by ity of etamine 00:00: mouth in [place] ([facility]) 00 the Medical 15 mg morning Branch tablet and 1 tablet at noon and 1 tablet in the evening. dextroamphe 2021-03 Yes [id number] 20mg Take 1 [facility] tamine-amph 2-20 tablet by ity of etamine 00:00: mouth in [place] ([facility]) 00 the Medical 20 mg morning Branch tablet and 1 tablet at noon and 1 tablet in the evening. dextroamphe 2021-03 Yes [id number] 20mg Take 1 [facility] tamine-amph 2-20 tablet by ity of etamine 00:00: mouth in [place] ([facility]) 00 the Medical 20 mg morning Branch tablet and 1 tablet at noon and 1 tablet in the evening. dextroamphe 2021-03 Yes [id number] 20mg Take 1 [facility] tamine-amph 2-20 tablet by ity of etamine 00:00: mouth in [place] ([facility]) 00 the Medical 20 mg morning Branch tablet and 1 tablet at noon and 1 tablet in the evening. dextroamphe 2021-03- No [id number] 20mg Take 1 [facility] tamine-amph 2-20 04-07 tablet by it y of etamine 00:00: 00:00 mouth in [place] ([facility]) 00 :00 the Medical 20 mg morning Branch tablet and 1 tablet at noon and 1 tablet in the evening. dextroamphe 2021-03 No [id number] 15mg Take 1 [facility] tamine-amph 2-20 - tablet by it y of etamine 00:00: 00:00 mouth in [place] ([facility]) 00 :00 the Medical 15 mg morning Branch tablet and 1 tablet at noon and 1 tablet in the evening. ibuprofen 2021-03 No 800mg 800 mg, Uni vers (IBU) 2-14 12-14 Oral, ity of tablet 800 03:30: 03:30 ONCE, 1 [place] as mg 00 :00 dose, On Medical e Branch 03/10/22 at 2130, CAMRNY HYDROcodone 2021-03 No 1{tbl} 1 tablet, Univers -acetaminop 2-14 03-11 Oral, ity of hen (NORCO 01:15: 01:14 ONCE, 1 [place] 5) 5-325 mg 00 :00 dose, On [facility] gustavo tablet 1 e Branch tablet 03/10/22 at 1915, CAMRYN SERTRALINE 2021-03 Yes [id number] TAKE 1 [facility] 100 mg 2-13 TABLET BY ity of tablet 00:00: MOUTH [place] 00 EVERY DAY Medical Branch SERTRALINE 2021-03 Yes [id number] TAKE 1 [facility] 100 mg 2-13 TABLET BY ity of tablet 00:00: MOUTH [place] 00 EVERY DAY Medical Branch SERTRALINE 2021-03 Yes [id number] TAKE 1 [facility] 100 mg 2-13 TABLET BY ity of tablet 00:00: MOUTH [place] 00 EVERY DAY Medical Branch SERTRALINE 2021-03 Yes [id number] TAKE 1 [facility] 100 mg 2-13 TABLET BY ity of tablet 00:00: MOUTH [place] 00 EVERY DAY Medical Branch SERTRALINE 2021-03 Yes [id number] TAKE 1 [facility] 100 mg 2-13 TABLET BY ity of tablet 00:00: MOUTH [place] 00 EVERY DAY Medical Branch SERTRALINE 2021-03 Yes [id number] TAKE 1 [facility] 100 mg 2-13 TABLET BY ity of tablet 00:00: MOUTH [place] 00 EVERY DAY Medical Branch SERTRALINE 2021-03 Yes [id number] TAKE 1 [facility] 100 mg 2-13 TABLET BY ity of tablet 00:00: MOUTH [place] 00 EVERY DAY Medical Branch SERTRALINE 2021-03 Yes [id number] TAKE 1 [facility] 100 mg 2-13 TABLET BY ity of tablet 00:00: MOUTH 00 EVERY DAY Medical Branch SERTRALINE 2021-03 Yes [id number] TAKE 1 [facility] 100 mg 2-13 TABLET BY ity of tablet 00:00: MOUTH EVERY DAY Medical Branch SERTRALINE 2021-03 Yes [id number] TAKE 1 [facility] 100 mg 2-13 TABLET BY ity of tablet 00:00: MOUTH 00 EVERY DAY Medical Branch SERTRALINE 2021-03 Yes [id number] TAKE 1 [facility] 100 mg 2-13 TABLET BY ity of tablet 00:00: MOUTH EVERY DAY Medical Branch SERTRALINE 2021-03 Yes [id number] TAKE 1 [facility] 100 mg 2-13 TABLET BY ity of tablet 00:00: MOUTH EVERY DAY Medical Branch SERTRALINE 2021-03 Yes [id number] TAKE 1 [facility] 100 mg 2-13 TABLET BY ity of tablet 00:00: MOUTH 00 EVERY DAY Medical Branch SERTRALINE 2021-03 Yes [id number] TAKE 1 [facility] 100 mg 2-13 TABLET BY ity of tablet 00:00: MOUTH 00 EVERY DAY Medical Branch SERTRALINE 2021-03 Yes [id number] TAKE 1 [facility] 100 mg 2-13 TABLET BY ity of tablet 00:00: MOUTH EVERY DAY Medical Branch SERTRALINE 2021-03 Yes [id number] TAKE 1 [facility] 100 mg 2-13 TABLET BY ity of tablet 00:00: MOUTH 00 EVERY DAY Medical Branch SERTRALINE 2021-03 Yes [id number] TAKE 1 [facility] 100 mg 2-13 TABLET BY ity of tablet 00:00: MOUTH EVERY DAY Medical Branch SERTRALINE 2021-03 Yes [id number] TAKE 1 [facility] 100 mg 2-13 TABLET BY ity of tablet 00:00: MOUTH [place] 00 EVERY DAY Medical Branch SERTRALINE 2021-03 Yes [id number] TAKE 1 [facility] 100 mg 2-13 TABLET BY ity of tablet 00:00: MOUTH [place] 00 EVERY DAY Medical Branch SERTRALINE 2021-03 Yes [id number] TAKE 1 [facility] 100 mg 2-13 TABLET BY ity of tablet 00:00: MOUTH [place] 00 EVERY DAY Medical Branch SERTRALINE 2021-03 Yes [id number] TAKE 1 [facility] 100 mg 2-13 TABLET BY ity of tablet 00:00: MOUTH [place] 00 EVERY DAY Medical Branch SERTRALINE 2021-03 Yes [id number] TAKE 1 [facility] 100 mg 2-13 TABLET BY ity of tablet 00:00: MOUTH EVERY DAY Medical Branch SERTRALINE 2021-03 Yes [id number] TAKE 1 [facility] 100 mg 2-13 TABLET BY ity of tablet 00:00: MOUTH [place] 00 EVERY DAY Medical Branch SERTRALINE 2021-03 Yes [id number] TAKE 1 [facility] 100 mg 2-13 TABLET BY ity of tablet 00:00: MOUTH [place] EVERY DAY Medical Branch SERTRALINE 2021-03 Yes [id number] TAKE 1 [facility] 100 mg 2-13 TABLET BY ity of tablet 00:00: MOUTH EVERY DAY Medical Branch SERTRALINE 2021-03 Yes [id number] TAKE 1 [facility] 100 mg 2-13 TABLET BY ity of tablet 00:00: MOUTH EVERY DAY Medical Branch SERTRALINE 2021-03 Yes [id number] TAKE 1 [facility] 100 mg 2-13 TABLET BY ity of tablet 00:00: MOUTH 00 EVERY DAY Medical Branch SERTRALINE 2021-03 Yes [id number] TAKE 1 [facility] 100 mg 2-13 TABLET BY ity of tablet 00:00: MOUTH 00 EVERY DAY Medical Branch SERTRALINE 2021-03 Yes [id number] TAKE 1 [facility] 100 mg 2-13 TABLET BY ity of tablet 00:00: MOUTH [place] EVERY DAY Medical Branch SERTRALINE 2021-03 Yes [id number] TAKE 1 [facility] 100 mg 2-13 TABLET BY ity of tablet 00:00: MOUTH 00 EVERY DAY Medical Branch SERTRALINE 2021-03 Yes [id number] TAKE 1 [facility] 100 mg 2-13 TABLET BY ity of tablet 00:00: MOUTH [place] EVERY DAY Medical Branch SERTRALINE 2021-03 Yes [id number] TAKE 1 [facility] 100 mg 2-13 TABLET BY ity of tablet 00:00: MOUTH [place] 00 EVERY DAY Medical Branch SERTRALINE 2021-03 Yes [id number] TAKE 1 [facility] 100 mg 2-13 TABLET BY [facility] of tablet 00:00: MOUTH [place] EVERY DAY Medical Branch SERTRALINE 2021-03 Yes [id number] TAKE 1 [facility] 100 mg 2-13 TABLET BY [facility] of tablet 00:00: MOUTH [place] 00 EVERY DAY Medical Branch SERTRALINE 2021-03 Yes [id number] TAKE 1 [facility] 100 mg 2-13 TABLET BY [facility] of tablet 00:00: MOUTH [place] 00 EVERY DAY Medical Branch SERTRALINE 2021-03 Yes [id number] TAKE 1 [facility] 100 mg 2-13 TABLET BY [facility] of tablet 00:00: MOUTH [place] 00 EVERY DAY Medical Branch SERTRALINE 2021-03 Yes [id number] TAKE 1 [facility] 100 mg 2-13 TABLET BY [facility] of tablet 00:00: MOUTH [place] 00 EVERY DAY Medical Branch SERTRALINE 2021-03 Yes [id number] TAKE 1 [facility] 100 mg 2-13 TABLET BY [facility] of tablet 00:00: MOUTH [place] 00 EVERY DAY Medical Branch SERTRALINE 2021-03 Yes [id number] TAKE 1 [facility] 100 mg 2-13 TABLET BY [facility] of tablet 00:00: MOUTH [place] 00 EVERY DAY Medical Branch SERTRALINE 2021-03 Yes [id number] TAKE 1 [facility] 100 mg 2-13 TABLET BY [facility] of tablet 00:00: MOUTH [place] 00 EVERY DAY Medical Branch SERTRALINE 2021-03 Yes [id number] TAKE 1 [facility] 100 mg 2-13 TABLET BY [facility] of tablet 00:00: MOUTH [place] 00 EVERY DAY Medical Branch SERTRALINE 2021-03 Yes [id number] TAKE 1 [facility] 100 mg 2-13 TABLET BY [facility] of tablet 00:00: MOUTH [place] 00 EVERY DAY Medical Branch SERTRALINE 2021-03 Yes [id number] TAKE 1 [facility] 100 mg 2-13 TABLET BY [facility] of tablet 00:00: MOUTH [place] 00 EVERY DAY Medical Branch SERTRALINE 2021-03 Yes [id number] TAKE 1 [facility] 100 mg 2-13 TABLET BY [facility] of tablet 00:00: MOUTH [place] 00 EVERY DAY Medical Branch SERTRALINE 2021-03 Yes [id number] TAKE 1 [facility] 100 mg 2-13 TABLET BY [facility] of tablet 00:00: MOUTH [place] 00 EVERY DAY Medical Branch SERTRALINE 2021-03 Yes [id number] TAKE 1 [facility] 100 mg 2-13 TABLET BY [facility] of tablet 00:00: MOUTH [place] 00 EVERY DAY Medical Branch SERTRALINE 2021-03 Yes [id number] TAKE 1 [facility] 100 mg 2-13 TABLET BY [facility] of tablet 00:00: MOUTH [place] 00 EVERY DAY Medical Branch SERTRALINE 2021-03 Yes [id number] TAKE 1 [facility] 100 mg 2-13 TABLET BY [facility] of tablet 00:00: MOUTH [place] 00 EVERY DAY Medical Branch SERTRALINE 2021-03 Yes [id number] TAKE 1 [facility] 100 mg 2-13 TABLET BY [facility] of tablet 00:00: MOUTH [place] 00 EVERY DAY Medical Branch SERTRALINE 2021-03 Yes [id number] TAKE 1 [facility] 100 mg 2-13 TABLET BY [facility] of tablet 00:00: MOUTH [place] 00 EVERY DAY Medical Branch SERTRALINE 2021-03 Yes [id number] TAKE 1 [facility] 100 mg 2-13 TABLET BY [facility] of tablet 00:00: MOUTH [place] 00 EVERY DAY Medical Branch SERTRALINE 2021-03 Yes [id number] TAKE 1 [facility] 100 mg 2-13 TABLET BY [facility] of tablet 00:00: MOUTH [place] 00 EVERY DAY Medical Branch SERTRALINE 2021-03 Yes [id number] TAKE 1 [facility] 100 mg 2-13 TABLET BY [facility] of tablet 00:00: MOUTH [place] 00 EVERY DAY Medical Branch SERTRALINE 2021-03 Yes [id number] TAKE 1 [facility] 100 mg 2-13 TABLET BY [facility] of tablet 00:00: MOUTH [place] 00 EVERY DAY Medical Branch SERTRALINE 2021-03 Yes [id number] TAKE 1 [facility] 100 mg 2-13 TABLET BY [facility] of tablet 00:00: MOUTH [place] 00 EVERY DAY Medical Branch SERTRALINE 2021-03 Yes [id number] TAKE 1 [facility] 100 mg 2-13 TABLET BY [facility] of tablet 00:00: MOUTH [place] 00 EVERY DAY Medical Branch SERTRALINE 2021-03 Yes [id number] TAKE 1 [facility] 100 mg 2-13 TABLET BY it[facility] of tablet 00:00: MOUTH [place] 00 EVERY DAY Medical Branch SERTRALINE 2021-033- No [id number] TAKE 1 [facility] 100 mg 2-13 05-01 TABLET BY it[facility] of tablet 00:00: 00:00 MOUTH [place] 00 :00 EVERY DAY Medical Branch cephALEXin 2021-03 Yes [id number] 500mg Take 1 [facility] 500 mg 1-28 capsule by it[facility] of capsule 00:00: mouth in [place] 00 the Medical morning Branch and 1 capsule in the evening. cephALEXin 2021-03 Yes [id number] 500mg Take 1 [facility] 500 mg 1-28 capsule by ity of capsule 00:00: mouth in [place] [address] the Medical morning Branch and 1 capsule in the evening. cephALEXin 2-1 Yes [id number] 500mg Take 1 [facility] 500 mg 1-28 capsule by it[facility] of capsule 00:00: mouth in [place] [address] the Medical morning Branch and 1 capsule in the evening. cephALEXin 202-1 Yes [id number] 500mg Take 1 [facility] 500 mg 1-28 capsule by it[facility] of capsule 00:00: mouth in [place] [address] the Medical morning Branch and 1 capsule in the evening. cephALEXin 202-1 Yes [id number] 500mg Take 1 [facility] 500 mg 1-28 capsule by ity of capsule 00:00: mouth in [place] [address] the Medical morning Branch and 1 capsule in the evening. cephALEXin 202-1 Yes [id number] 500mg Take 1 [facility] 500 mg 1-28 capsule by ity of capsule 00:00: mouth in [place] [address] [facility] morning [place] and 1 capsule in the evening. cephALEXin 2021-1 Yes [id number] 500mg Take 1 [facility] 500 mg 1-28 capsule by ity of capsule 00:00: mouth in [place] [address] the Medical morning [place] and 1 capsule in the evening. cephALEXin 2021-1 Yes [id number] 500mg Take 1 [facility] 500 mg 1-28 capsule by ity of capsule 00:00: mouth in [place] [address] the Medical morning [place] and 1 capsule in the evening. cephALEXin 2021-1 Yes [id number] 500mg Take 1 [facility] 500 mg 1-28 capsule by ity of capsule 00:00: mouth in [place] [address] [facility] morning [place] and 1 capsule in the evening. cephALEXin 2022-1 Yes [id number] 500mg Take 1 [facility] 500 mg 1-28 capsule by ity of capsule 00:00: mouth in [place] [address] the Medical morning [place] and 1 capsule in the evening. cephALEXin 2022-1 Yes [id number] 500mg Take 1 [facility] 500 mg 1-28 capsule by ity of capsule 00:00: mouth in [place] [address] the Medical morning Branch and 1 capsule in the evening. cephALEXin 2022-1 Yes [id number] 500mg Take 1 [facility] 500 mg 1-28 capsule by ity of capsule 00:00: mouth in [address] morning [place] and 1 capsule in the evening. cephALEXin 2022-1 Yes [id number] 500mg Take 1 [facility] 500 mg 1-28 capsule by ity of capsule 00:00: mouth in [place] [address] the Medical morning Branch and 1 capsule in the evening. cephALEXin 2022-1 Yes [id number] 500mg Take 1 [facility] 500 mg 1-28 capsule by ity of capsule 00:00: mouth in [place] [address] the Medical morning Branch and 1 capsule in the evening. cephALEXin 2022-1 Yes [id number] 500mg Take 1 [facility] 500 mg 1-28 capsule by ity of capsule 00:00: mouth in [place] [address] the Medical morning Branch and 1 capsule in the evening. cephALEXin 2022-1 Yes [id number] 500mg Take 1 [facility] 500 mg 1-28 capsule by ity of capsule 00:00: mouth in [place] [address] the Medical morning Branch and 1 capsule in the evening. cephALEXin 2022-1 Yes [id number] 500mg Take 1 [facility] 500 mg 1-28 capsule by ity of capsule 00:00: mouth in [place] [address] [facility] morning Branch and 1 capsule in the evening. cephALEXin 2022-1 Yes [id number] 500mg Take 1 [facility] 500 mg 1-28 capsule by ity of capsule 00:00: mouth in [place] [address] the Medical morning Branch and 1 capsule in the evening. cephALEXin 2022-1 Yes [id number] 500mg Take 1 [facility] 500 mg 1-28 capsule by ity of capsule 00:00: mouth in [place] [address] the Medical morning Branch and 1 capsule in the evening. cephALEXin 2022-1 Yes [id number] 500mg Take 1 [facility] 500 mg 1-28 capsule by ity of capsule 00:00: mouth in [place] [address] the Medical morning [place] and 1 capsule in the evening. cephALEXin 2022-1 Yes [id number] 500mg Take 1 [facility] 500 mg 1-28 capsule by ity of capsule 00:00: mouth in [place] [address] the Medical morning Branch and 1 capsule in the evening. cephALEXin 2022-1 Yes [id number] 500mg Take 1 [facility] 500 mg 1-28 capsule by ity of capsule 00:00: mouth in [place] [address] the Medical morning Branch and 1 capsule in the evening. cephALEXin 2022-1 Yes [id number] 500mg Take 1 [facility] 500 mg 1-28 capsule by ity of capsule 00:00: mouth in [address] Medical morning Branch and 1 capsule in the evening. cephALEXin 2022-1 Yes [id number] 500mg Take 1 [facility] 500 mg 1-28 capsule by ity of capsule 00:00: mouth in [place] 00 the Medical morning Branch and 1 capsule in the evening. dextroamphe 2021- Yes [id number] 20mg Take 1 [facility] tamine-amph 1-28 tablet by ity of etamine 00:00: mouth in [place] ([facility]) 00 the Medical 20 mg morning Branch tablet and 1 tablet at noon and 1 tablet in the evening. clonazePAM 2021- Yes [id number] 1mg Take 1 [facility] 1 mg tablet 1-28 tablet by ity of 00:00: mouth in [place] 00 the Medical morning Branch and 1 tablet at noon and 1 tablet in the evening. cephALEXin 2021- Yes [id number] 500mg Take 1 [facility] 500 mg 1-28 capsule by ity of capsule 00:00: mouth in [place] 00 the Medical morning Branch and 1 capsule in the evening. dextroamphe 2021- Yes [id number] 20mg Take 1 [facility] tamine-amph 1-28 tablet by ity of etamine 00:00: mouth in [place] ([facility]) 00 the Medical 20 mg morning Branch tablet and 1 tablet at noon and 1 tablet in the evening. clonazePAM 2021- Yes [id number] 1mg Take 1 [facility] 1 mg tablet 1-28 tablet by ity of 00:00: mouth in [place] 00 the Medical morning Branch and 1 tablet at noon and 1 tablet in the evening. cephALEXin 2021- Yes [id number] 500mg Take 1 [facility] 500 mg 1-28 capsule by ity of capsule 00:00: mouth in [place] 00 the Medical morning Branch and 1 capsule in the evening. dextroamphe 2021- Yes [id number] 20mg Take 1 [facility] tamine-amph 1-28 tablet by ity of etamine 00:00: mouth in [place] ([facility]) 00 the Medical 20 mg morning Branch tablet and 1 tablet at noon and 1 tablet in the evening. clonazePAM 2021- Yes [id number] 1mg Take 1 [facility] 1 mg tablet 1-28 tablet by ity of 00:00: mouth in [place] 00 the Medical morning Branch and 1 tablet at noon and 1 tablet in the evening. cephALEXin 2021- Yes [id number] 500mg Take 1 [facility] 500 mg 1-28 capsule by ity of capsule 00:00: mouth in [place] 00 the Medical morning Branch and 1 capsule in the evening. dextroamphe 2021-1 Yes [id number] 20mg Take 1 [facility] tamine-amph 1-28 tablet by ity of etamine 00:00: mouth in [place] ([facility]) 00 the Medical 20 mg morning Branch tablet and 1 tablet at noon and 1 tablet in the evening. clonazePAM 2021- Yes [id number] 1mg Take 1 [facility] 1 mg tablet 1-28 tablet by ity of 00:00: mouth in [place] 00 the Medical morning Branch and 1 tablet at noon and 1 tablet in the evening. cephALEXin 2021-03 Yes [id number] 500mg Take 1 [facility] 500 mg 1-28 capsule by ity of capsule 00:00: mouth in [place] 00 the Medical morning Branch and 1 capsule in the evening. dextroamphe 2021-03 Yes [id number] 20mg Take 1 [facility] tamine-amph 1-28 tablet by ity of etamine 00:00: mouth in [place] [facility] 00 the Medical 20 mg morning Branch tablet and 1 tablet at noon and 1 tablet in the evening. clonazePAM 2021-03 Yes [id number] 1mg Take 1 [facility] 1 mg tablet 1-28 tablet by ity of 00:00: mouth in [place] 00 the Medical morning Branch and 1 tablet at noon and 1 tablet in the evening. cephALEXin 2021-03 Yes [id number] 500mg Take 1 [facility] 500 mg 1-28 capsule by ity of capsule 00:00: mouth in [place] 00 the Medical morning Branch and 1 capsule in the evening. dextroamphe 2021-03 Yes [id number] 20mg Take 1 [facility] tamine-amph 1-28 tablet by ity of etamine 00:00: mouth in [place] ([facility]) 00 the Medical 20 mg morning Branch tablet and 1 tablet at noon and 1 tablet in the evening. clonazePAM 2021- Yes [id number] 1mg Take 1 [facility] 1 mg tablet 1-28 tablet by ity of 00:00: mouth in [place] 00 the Medical morning Branch and 1 tablet at noon and 1 tablet in the evening. cephALEXin 2021- Yes [id number] 500mg Take 1 [facility] 500 mg 1-28 capsule by ity of capsule 00:00: mouth in [place] 00 the Medical morning Branch and 1 capsule in the evening. clonazePAM 2021- Yes [id number] 1mg Take 1 [facility] 1 mg tablet 1-28 tablet by ity of 00:00: mouth in [place] [address] the Medical morning Branch and 1 tablet at noon and 1 tablet in the evening. cephALEXin 2022-1 Yes [id number] 500mg Take 1 [facility] 500 mg 1-28 capsule by ity of capsule 00:00: mouth in [place] [address] [address] [facility] morning [place] and 1 capsule in the evening. clonazePAM 2022-1 Yes [id number] 1mg Take 1 [facility] 1 mg tablet 1-28 tablet by ity of 00:00: mouth in [address] morning [place] and 1 tablet at noon and 1 tablet in the evening. cephALEXin 2021-1 Yes [id number] 500mg Take 1 [facility] 500 mg 1-28 capsule by ity of capsule 00:00: mouth in [address] morning [place] and 1 capsule in the evening. clonazePAM 2-1 Yes [id number] 1mg Take 1 [facility] 1 mg tablet 1-28 tablet by ity of 00:00: mouth in [address] morning [place] and 1 tablet at noon and 1 tablet in the evening. cephALEXin 2021-1 Yes [id number] 500mg Take 1 [facility] 500 mg 1-28 capsule by ity of capsule 00:00: mouth in [address] morning [place] and 1 capsule in the evening. clonazePAM 2-1 Yes [id number] 1mg Take 1 [facility] 1 mg tablet 1-28 tablet by ity of 00:00: mouth in [address] morning [place] and 1 tablet at noon and 1 tablet in the evening. cephALEXin 2022-1 Yes [id number] 500mg Take 1 [facility] 500 mg 1-28 capsule by ity of capsule 00:00: mouth in [address] morning [place] and 1 capsule in the evening. clonazePAM 2-1 Yes [id number] 1mg Take 1 [facility] 1 mg tablet 1-28 tablet by ity of 00:00: mouth in [address] morning [place] and 1 tablet at noon and 1 tablet in the evening. cephALEXin 2022-1 Yes [id number] 500mg Take 1 [facility] 500 mg 1-28 capsule by ity of capsule 00:00: mouth in [address] morning [place] and 1 capsule in the evening. clonazePAM 2022-1 Yes [id number] 1mg Take 1 [facility] 1 mg tablet 1-28 tablet by ity of 00:00: mouth in [address] and 1 tablet at noon and 1 tablet in the evening. cephALEXin 2022-1 Yes [id number] 500mg Take 1 [facility] 500 mg 1-28 capsule by ity of capsule 00:00: mouth in [address] morning [place] and 1 capsule in the evening. clonazePAM 2-1 Yes [id number] 1mg Take 1 [facility] 1 mg tablet 1-28 tablet by ity of 00:00: mouth in [address] morning [place] and 1 tablet at noon and 1 tablet in the evening. cephALEXin 202-1 Yes [id number] 500mg Take 1 [facility] 500 mg 1-28 capsule by ity of capsule 00:00: mouth in [address] morning [place] and 1 capsule in the evening. clonazePAM 2-1 Yes [id number] 1mg Take 1 [facility] 1 mg tablet 1-28 tablet by ity of 00:00: mouth in [address] and 1 tablet at noon and 1 tablet in the evening. cephALEXin 2021-1 Yes [id number] 500mg Take 1 [facility] 500 mg 1-28 capsule by ity of capsule 00:00: mouth in [address] and 1 capsule in the evening. clonazePAM 2-1 Yes [id number] 1mg Take 1 [facility] 1 mg tablet 1-28 tablet by ity of 00:00: mouth in [address] and 1 tablet at noon and 1 tablet in the evening. cephALEXin 2021-1 Yes [id number] 500mg Take 1 [facility] 500 mg 1-28 capsule by ity of capsule 00:00: mouth in [address] and 1 capsule in the evening. clonazePAM 2-1 Yes [id number] 1mg Take 1 [facility] 1 mg tablet 1-28 tablet by ity of 00:00: mouth in [address] morning [place] and 1 tablet at noon and 1 tablet in the evening. cephALEXin 2022-1 Yes [id number] 500mg Take 1 [facility] 500 mg 1-28 capsule by ity of capsule 00:00: mouth in [address] and 1 capsule in the evening. clonazePAM 2022-1 Yes [id number] 1mg Take 1 [facility] 1 mg tablet 1-28 tablet by ity of 00:00: mouth in [address] morning [place] and 1 tablet at noon and 1 tablet in the evening. cephALEXin 2022-1 Yes [id number] 500mg Take 1 [facility] 500 mg 1-28 capsule by ity of capsule 00:00: mouth in [address] morning [place] and 1 capsule in the evening. clonazePAM 2022-1 Yes [id number] 1mg Take 1 [facility] 1 mg tablet 1-28 tablet by ity of 00:00: mouth in [address] morning [place] and 1 tablet at noon and 1 tablet in the evening. cephALEXin 202-1 Yes [id number] 500mg Take 1 [facility] 500 mg 1-28 capsule by ity of capsule 00:00: mouth in [address] morning [place] and 1 capsule in the evening. clonazePAM 2022-1 Yes [id number] 1mg Take 1 [facility] 1 mg tablet 1-28 tablet by ity of 00:00: mouth in [address] morning [place] and 1 tablet at noon and 1 tablet in the evening. cephALEXin 2021-1 Yes [id number] 500mg Take 1 [facility] 500 mg 1-28 capsule by ity of capsule 00:00: mouth in [address] and 1 capsule in the evening. clonazePAM 2-1 Yes [id number] 1mg Take 1 [facility] 1 mg tablet 1-28 tablet by ity of 00:00: mouth in [address] morning [place] and 1 tablet at noon and 1 tablet in the evening. cephALEXin 2021-1 Yes [id number] 500mg Take 1 [facility] 500 mg 1-28 capsule by ity of capsule 00:00: mouth in [address] and 1 capsule in the evening. clonazePAM 2022-1 Yes [id number] 1mg Take 1 [facility] 1 mg tablet 1-28 tablet by ity of 00:00: mouth in [address] morning [place] and 1 tablet at noon and 1 tablet in the evening. cephALEXin 2022-1 Yes [id number] 500mg Take 1 [facility] 500 mg 1-28 capsule by ity of capsule 00:00: mouth in [address] and 1 capsule in the evening. clonazePAM 2022-1 Yes [id number] 1mg Take 1 [facility] 1 mg tablet 1-28 tablet by ity of 00:00: mouth in [address] morning [place] and 1 tablet at noon and 1 tablet in the evening. cephALEXin 2022-1 Yes [id number] 500mg Take 1 [facility] 500 mg 1-28 capsule by ity of capsule 00:00: mouth in [place] [address] the Medical morning Branch and 1 capsule in the evening. clonazePAM 2022-1 Yes [id number] 1mg Take 1 [facility] 1 mg tablet 1-28 tablet by ity of 00:00: mouth in [place] [address] the Medical morning Branch and 1 tablet at noon and 1 tablet in the evening. cephALEXin 2021-1 Yes [id number] 500mg Take 1 [facility] 500 mg 1-28 capsule by ity of capsule 00:00: mouth in [address] Medical morning Branch and 1 capsule in the evening. clonazePAM 2021-1 Yes [id number] 1mg Take 1 [facility] 1 mg tablet 1-28 tablet by ity of 00:00: mouth in [address] morning [place] and 1 tablet at noon and 1 tablet in the evening. cephALEXin 2021-1 Yes [id number] 500mg Take 1 [facility] 500 mg 1-28 capsule by ity of capsule 00:00: mouth in [address] morning [place] and 1 capsule in the evening. clonazePAM 2021-1 Yes [id number] 1mg Take 1 [facility] 1 mg tablet 1-28 tablet by ity of 00:00: mouth in [address] morning [place] and 1 tablet at noon and 1 tablet in the evening. cephALEXin 2021-1 Yes [id number] 500mg Take 1 [facility] 500 mg 1-28 capsule by ity of capsule 00:00: mouth in [address] morning [place] and 1 capsule in the evening. clonazePAM 2-1 Yes [id number] 1mg Take 1 [facility] 1 mg tablet 1-28 tablet by ity of 00:00: mouth in [address] morning [place] and 1 tablet at noon and 1 tablet in the evening. cephALEXin 2021-1 Yes [id number] 500mg Take 1 [facility] 500 mg 1-28 capsule by ity of capsule 00:00: mouth in [address] morning [place] and 1 capsule in the evening. clonazePAM 2022-1 Yes [id number] 1mg Take 1 [facility] 1 mg tablet 1-28 tablet by ity of 00:00: mouth in [address] Medical morning [place] and 1 tablet at noon and 1 tablet in the evening. cephALEXin 2022-1 Yes [id number] 500mg Take 1 [facility] 500 mg 1-28 capsule by ity of capsule 00:00: mouth in [address] morning [place] and 1 capsule in the evening. clonazePAM 2022-1 Yes [id number] 1mg Take 1 [facility] 1 mg tablet 1-28 tablet by ity of 00:00: mouth in [address] and 1 tablet at noon and 1 tablet in the evening. cephALEXin 2021-1 Yes [id number] 500mg Take 1 [facility] 500 mg 1-28 capsule by ity of capsule 00:00: mouth in [address] morning [place] and 1 capsule in the evening. clonazePAM 2022-1 Yes [id number] 1mg Take 1 [facility] 1 mg tablet 1-28 tablet by ity of 00:00: mouth in [address] morning [place] and 1 tablet at noon and 1 tablet in the evening. cephALEXin 2021-1 Yes [id number] 500mg Take 1 [facility] 500 mg 1-28 capsule by ity of capsule 00:00: mouth in [address] and 1 capsule in the evening. clonazePAM 2021-1 Yes [id number] 1mg Take 1 [facility] 1 mg tablet 1-28 tablet by ity of 00:00: mouth in [address] and 1 tablet at noon and 1 tablet in the evening. cephALEXin 2021-1 Yes [id number] 500mg Take 1 [facility] 500 mg 1-28 capsule by ity of capsule 00:00: mouth in [address] and 1 capsule in the evening. cephALEXin 2021-1 Yes [id number] 500mg Take 1 [facility] 500 mg 1-28 capsule by ity of capsule 00:00: mouth in [address] and 1 capsule in the evening. cephALEXin 2022-1 Yes [id number] 500mg Take 1 [facility] 500 mg 1-28 capsule by ity of capsule 00:00: mouth in [address] morning [place] and 1 capsule in the evening. cephALEXin 2022-1 Yes [id number] 500mg Take 1 [facility] 500 mg 1-28 capsule by ity of capsule 00:00: mouth in [address] and 1 capsule in the evening. cephALEXin 2022-1 Yes [id number] 500mg Take 1 [facility] 500 mg 1-28 capsule by ity of capsule 00:00: mouth in [address] and 1 capsule in the evening. cephALEXin 2022-1 Yes [id number] 500mg Take 1 [facility] 500 mg 1-28 capsule by ity of capsule 00:00: mouth in [place] 00 the Medical morning Branch and 1 capsule in the evening. cephALEXin 2021-03 Yes [id number] 500mg Take 1 [facility] 500 mg - capsule by ity of capsule 00:00: mouth in [place] 00 the Medical morning Branch and 1 capsule in the evening. cephALEXin 2021-03- No [id number] 500mg Take 1 [facility] 500 mg 04-25- capsule by ity of capsule 00:00: 00:00 mouth in [place] 00 :00 the Medical morning Branch and 1 capsule in the evening. cephALEXin 2021-03- No [id number] 500mg Take 1 [facility] 500 mg 04-25- capsule by ity of capsule 00:00: 00:00 mouth in [place] 00 :00 the Medical morning Branch and 1 capsule in the evening. clonazePAM 2021-03- No [id number] 1mg Take 1 [facility] 1 mg tablet 04-25 tablet by it y of 00:00: 00:00 mouth in [place] 00 :00 the Medical morning Branch and 1 tablet at noon and 1 tablet in the evening. clonazePAM 2021-03- No [id number] 1mg Take 1 [facility] 1 mg tablet 04-25 tablet by it y of 00:00: 00:00 mouth in [place] 00 :00 the Medical morning Branch and 1 tablet at noon and 1 tablet in the evening. clonazePAM 2021-03- No [id number] 1mg Take 1 [facility] 1 mg tablet 04-25 tablet by it y of 00:00: 00:00 mouth in [place] 00 :00 the Medical morning Branch and 1 tablet at noon and 1 tablet in the evening. dextroamphe 2021-03- No [id number] 20mg Take 1 [facility] tamine-amph 04-25 12-20 tablet by it y of etamine 00:00: 00:00 mouth in [place] ([facility]) 00 :00 the Medical 20 mg morning Branch tablet and 1 tablet at noon and 1 tablet in the evening. clonazePAM 2021-03 Yes [id number] 1mg Take 1 [facility] 1 mg tablet - tablet by ity of 00:00: mouth in [place] 00 the Medical morning Branch and 1 tablet at noon and 1 tablet in the evening. cephALEXin 2021-03 Yes [id number] 500mg Take 1 [facility] 500 mg -01 capsule by ity of capsule 00:00: mouth in [place] 00 the Medical morning Branch and 1 capsule in the evening. clonazePAM 2021-03 Yes [id number] 1mg Take 1 [facility] 1 mg tablet - tablet by ity of 00:00: mouth in [place] 00 the Medical morning Branch and 1 tablet at noon and 1 tablet in the evening. cephALEXin 2021-03 Yes [id number] 500mg Take 1 [facility] 500 mg -01 capsule by ity of capsule 00:00: mouth in [place] 00 the Medical morning Branch and 1 capsule in the evening. clonazePAM 2021-03- No [id number] 1mg Take 1 [facility] 1 mg tablet 03-29 tablet by it y of 00:00: 00:00 mouth in [place] 00 :00 the Medical morning Branch and 1 tablet at noon and 1 tablet in the evening. cephALEXin 2021-03- No [id number] 500mg Take 1 [facility] 500 mg -02-23 capsule by ity of capsule 00:00: 00:00 mouth in [place] 00 :00 the Medical morning Branch and 1 capsule in the evening. busPIRone 2021-03 Yes [id number] 10mg Take 1 U nivers 10 mg 0-25 tablet by ity of tablet 00:00: mouth in [place] 00 the Medical morning Branch and 1 tablet in the evening. busPIRone 2021-03 Yes [id number] 10mg Take 1 U nivers 10 mg 0-25 tablet by ity of tablet 00:00: mouth in [place] 00 the Medical morning Branch and 1 tablet in the evening. dextroamphe 2021-03 Yes [id number] 20mg Take 1 [facility] tamine-amph 0-25 tablet by ity of etamine 00:00: mouth in [place] ([facility]) 00 the Medical 20 mg morning Branch tablet and 1 tablet at noon and 1 tablet in the evening. busPIRone 2021-03 Yes [id number] 10mg Take 1 U nivers 10 mg 0-25 tablet by ity of tablet 00:00: mouth in [place] 00 the Medical morning Branch and 1 tablet in the evening. dextroamphe 2021-03 Yes [id number] 20mg Take 1 [facility] tamine-amph 0-25 tablet by [facility] of etamine 00:00: mouth in [place] (ADDERALL) 00 the Medical 20 mg morning Branch tablet and 1 tablet at noon and 1 tablet in the evening. busPIRone 2021-03 Yes [id number] 10mg Take 1 [facility] 10 mg 0-25 tablet by ity of tablet 00:00: mouth in [place] 00 the Medical morning Branch and 1 tablet in the evening. dextroamphe 2021-03 Yes [id number] 20mg Take 1 [facility] tamine-amph 0-25 tablet by ity of etamine 00:00: mouth in [place] (ADDERALL) 00 the Medical 20 mg morning Branch tablet and 1 tablet at noon and 1 tablet in the evening. busPIRone 2021-03 Yes [id number] 10mg Take 1 [facility] n[facility] 10 mg 0-25 tablet by ity of tablet 00:00: mouth in [place] 00 the Medical morning Branch and 1 tablet in the evening. dextroamphe 2021-03 Yes [id number] 20mg Take 1 [facility] tamine-amph 0-25 tablet by ity of etamine 00:00: mouth in [place] (ADDERALL) 00 the Medical 20 mg morning Branch tablet and 1 tablet at noon and 1 tablet in the evening. busPIRone 2021-03 Yes [id number] 10mg Take 1 [facility] n[facility] 10 mg 0-25 tablet by ity of tablet 00:00: mouth in [place] 00 the Medical morning Branch and 1 tablet in the evening. dextroamphe 2021-03 Yes [id number] 20mg Take 1 [facility] tamine-amph 0-25 tablet by ity of etamine 00:00: mouth in [place] (ADDERALL) 00 the Medical 20 mg morning Branch tablet and 1 tablet at noon and 1 tablet in the evening. busPIRone 2021-03 Yes [id number] 10mg Take 1 [facility] n[facility] 10 mg 0-25 tablet by ity of tablet 00:00: mouth in [place] 00 the Medical morning Branch and 1 tablet in the evening. dextroamphe 2021-03 Yes [id number] 20mg Take 1 [facility] tamine-amph 0-25 tablet by ity of etamine 00:00: mouth in [place] (ADDERALL) 00 the Medical 20 mg morning Branch tablet and 1 tablet at noon and 1 tablet in the evening. busPIRone 2021-03 Yes [id number] 10mg Take 1 [facility] n[facility] 10 mg 0-25 tablet by ity of tablet 00:00: mouth in [place] 00 the Medical morning Branch and 1 tablet in the evening. dextroamphe 2021-03 Yes [id number] 20mg Take 1 [facility] tamine-amph 0-25 tablet by ity of etamine 00:00: mouth in [place] ([facility]DER[facility]) 00 the Medical 20 mg morning Branch tablet and 1 tablet at noon and 1 tablet in the evening. dextroamphe 2021-03 Yes [id number] 20mg Take 1 [facility] tamine-amph 0-25 tablet by ity of etamine 00:00: mouth in [place] (ADDERALL) 00 the Medical 20 mg morning Branch tablet and 1 tablet at noon and 1 tablet in the evening. dextroamphe 2021-03 Yes [id number] 20mg Take 1 [facility] tamine-amph 0-25 tablet by ity of etamine 00:00: mouth in [place] (ADDERALL) 00 the Medical 20 mg morning Branch tablet and 1 tablet at noon and 1 tablet in the evening. dextroamphe 2021-03- No [id number] 20mg Take 1 [facility] tamine-amph 0-25 11-28 tablet by it y of etamine 00:00: 00:00 mouth in [place] (ADDERALL) 00 :00 the Medical 20 mg morning Branch tablet and 1 tablet at noon and 1 tablet in the evening. busPIRone 2021-03- No [id number] 10mg Take 1 [facility] 10 mg 0-25 11-01 tablet by ity of tablet 00:00: 00:00 mouth in [place] 00 :00 the Medical morning Branch and 1 tablet in the evening. busPIRone 2021-03- No [id number] 10mg Take 1 [facility] 10 mg 0-25 11-01 tablet by ity of tablet 00:00: 00:00 mouth in [place] 00 :00 the Medical morning Branch and 1 tablet in the evening. dextroamphe Yes [id number] 20mg Take 1 [facility] tamine-amph 9-26 tablet by ity of etamine 00:00: mouth in [place] (ADDERALL) 00 the Medical 20 mg morning Branch tablet and 1 tablet at noon and 1 tablet in the evening. dextroamphe 2021-0 Yes [id number] 20mg Take 1 [facility] tamine-amph 9-26 tablet by ity of etamine 00:00: mouth in [place] ([facility]) 00 the Medical 20 mg morning Branch tablet and 1 tablet at noon and 1 tablet in the evening. dextroamphe 2022-0 Yes [id number] 20mg Take 1 [facility] tamine-amph 9-26 tablet by ity of etamine 00:00: mouth in [place] ([facility]) 00 the Medical 20 mg morning Branch tablet and 1 tablet at noon and 1 tablet in the evening. dextroamphe 2022-0 Yes [id number] 20mg Take 1 [facility] tamine-amph 9-26 tablet by ity of etamine 00:00: mouth in [place] ([facility]) 00 the Medical 20 mg morning Branch tablet and 1 tablet at noon and 1 tablet in the evening. dextroamphe 2022-0 Yes [id number] 20mg Take 1 [facility] tamine-amph 9-26 tablet by ity of etamine 00:00: mouth in [place] ([facility]) 00 the Medical 20 mg morning Branch tablet and 1 tablet at noon and 1 tablet in the evening. dextroamphe 2022-0 Yes [id number] 20mg Take 1 [facility] tamine-amph 9-26 tablet by ity of etamine 00:00: mouth in [place] ([facility]) 00 the Medical 20 mg morning Branch tablet and 1 tablet at noon and 1 tablet in the evening. dextroamphe 2022-0 Yes [id number] 20mg Take 1 [facility] tamine-amph 9-26 tablet by ity of etamine 00:00: mouth in [place] ([facility]) 00 the Medical 20 mg morning Branch tablet and 1 tablet at noon and 1 tablet in the evening. dextroamphe 2022-0 2022- No [id number] 20mg Take 1 [facility] tamine-amph 9-26 10-25 tablet by it y of etamine 00:00: 00:00 mouth in [place] ([facility]) 00 :00 the Medical 20 mg morning Branch tablet and 1 tablet at noon and 1 tablet in the evening. dextroamphe 2022-0 2022- No [id number] 20mg Take 1 [facility] tamine-amph 9-26 10-25 tablet by it y of etamine 00:00: 00:00 mouth in [place] (ADDERALL) 00 :00 the Medical 20 mg morning Branch tablet and 1 tablet at noon and 1 tablet in the evening. PERMETHRIN 0 Yes [id number] APPLY TO [facility] 5 % cream 9-08 SKIN AND ity of 00:00: LEAVE ON [place] FOR 8 - 10 Medical HOURS THEN Branch REPEAT IN A WEEK PERMETHRIN Yes [id number] APPLY TO [facility] 5 % cream 9-08 SKIN AND ity of 00:00: LEAVE ON [place] 00 FOR 8 - 10 Medical HOURS THEN Branch REPEAT IN A WEEK PERMETHRIN Yes [id number] APPLY TO [facility] 5 % cream 9-08 SKIN AND ity of 00:00: LEAVE ON [place] 00 FOR 8 - 10 Medical HOURS THEN Branch REPEAT IN A WEEK PERMETHRIN Yes [id number] APPLY TO [facility] 5 % cream 9-08 SKIN AND ity of 00:00: LEAVE ON [place] FOR 8 - 10 Medical HOURS THEN Branch REPEAT IN A WEEK PERMETHRIN Yes [id number] APPLY TO [facility] 5 % cream 9-08 SKIN AND ity of 00:00: LEAVE ON [place] FOR 8 - 10 Medical HOURS THEN Branch REPEAT IN A WEEK PERMETHRIN Yes [id number] APPLY TO [facility] 5 % cream 9-08 SKIN AND ity of 00:00: LEAVE ON [place] 00 FOR 8 - 10 Medical HOURS THEN Branch REPEAT IN A WEEK PERMETHRIN Yes [id number] APPLY TO [facility] 5 % cream 9-08 SKIN AND ity of 00:00: LEAVE ON [place] FOR 8 - 10 Medical HOURS THEN Branch REPEAT IN A WEEK PERMETHRIN Yes [id number] APPLY TO [facility] 5 % cream 9-08 SKIN AND ity of 00:00: LEAVE ON [place] 00 FOR 8 - 10 Medical HOURS THEN Branch REPEAT IN A WEEK PERMETHRIN Yes [id number] APPLY TO [facility] 5 % cream 9-08 SKIN AND ity of 00:00: LEAVE ON [place] 00 FOR 8 - 10 Medical HOURS THEN Branch REPEAT IN A WEEK PERMETHRIN Yes [id number] APPLY TO [facility] 5 % cream 9-08 SKIN AND ity of 00:00: LEAVE ON [place] FOR 8 - 10 Medical HOURS THEN Branch REPEAT IN A WEEK PERMETHRIN Yes [id number] APPLY TO [facility] 5 % cream 9-08 SKIN AND ity of 00:00: LEAVE ON [place] 00 FOR 8 - 10 Medical HOURS THEN Branch REPEAT IN A WEEK PERMETHRIN 0 Yes [id number] APPLY TO [facility] 5 % cream 9-08 SKIN AND ity of 00:00: LEAVE ON [place] 00 FOR 8 - 10 Medical HOURS THEN Branch REPEAT IN A WEEK PERMETHRIN 0 Yes [id number] APPLY TO [facility] 5 % cream 9-08 SKIN AND ity of 00:00: LEAVE ON [place] 00 FOR 8 - 10 Medical HOURS THEN Branch REPEAT IN A WEEK PERMETHRIN 0 Yes [id number] APPLY TO [facility] 5 % cream 9-08 SKIN AND ity of 00:00: LEAVE ON [place] 00 FOR 8 - 10 Medical HOURS THEN Branch REPEAT IN A WEEK PERMETHRIN Yes [id number] APPLY TO [facility] 5 % cream 9-08 SKIN AND ity of 00:00: LEAVE ON [place] 00 FOR 8 - 10 Medical HOURS THEN Branch REPEAT IN A WEEK PERMETHRIN Yes [id number] APPLY TO [facility] 5 % cream 9-08 SKIN AND ity of 00:00: LEAVE ON [place] 00 FOR 8 - 10 Medical HOURS THEN Branch REPEAT IN A WEEK PERMETHRIN 0 2021- No [id number] APPLY TO [facility] 5 % cream 9-08 11-01 SKIN AND ity o f 00:00: 00:00 LEAVE ON [place] 00 :00 FOR 8 - 10 Medical HOURS THEN Branch REPEAT IN A WEEK PERMETHRIN 0 2021- No [id number] APPLY TO [facility] 5 % cream 9-08 11-01 SKIN AND ity o f 00:00: 00:00 LEAVE ON [place] 00 :00 FOR 8 - 10 Medical HOURS THEN Branch REPEAT IN A WEEK triamcinolo Yes [id number] Apply to [facility] ne 8-31 area(s) 2 ity of acetonide 00:00: (two) [place] 0.1 % cream 00 times Medical daily. To Branch bumps mupirocin 2 Yes [id number] Apply to [facility] % ointment 8-31 area(s) 3 ity of 00:00: (three) [place] 00 times Medical daily. To Branch open wounds triamcinolo Yes [id number] Apply to [facility] ne 8-31 area(s) 2 ity of acetonide 00:00: (two) [place] 0.1 % cream 00 times Medical daily. To Branch bumps mupirocin 2 2-0 Yes [id number] Apply to [facility] % ointment 8-31 area(s) 3 ity of 00:00: (three) [place] 00 times Medical daily. To Branch open wounds triamcinolo 2-0 Yes [id number] Apply to [facility] ne 8-31 area(s) 2 ity of acetonide 00:00: (two) [place] 0.1 % cream 00 times Medical daily. To Branch bumps mupirocin 2 2021-0 Yes [id number] Apply to [facility] % ointment 8-31 area(s) 3 ity of 00:00: (three) [place] 00 times Medical daily. To Branch open wounds triamcinolo 2021-0 Yes [id number] Apply to [facility] ne 8-31 area(s) 2 ity of acetonide 00:00: (two) [place] 0.1 % cream 00 times Medical daily. To Branch bumps mupirocin 2 2021-0 Yes [id number] Apply to [facility] % ointment 8-31 area(s) 3 ity of 00:00: (three) [place] 00 times Medical daily. To Branch open wounds triamcinolo 2-0 Yes [id number] Apply to [facility] ne 8-31 area(s) 2 ity of acetonide 00:00: (two) [place] 0.1 % cream 00 times Medical daily. To Branch bumps mupirocin 2 2-0 Yes [id number] Apply to [facility] % ointment 8-31 area(s) 3 ity of 00:00: (three) [place] 00 times Medical daily. To Branch open wounds triamcinolo 2-0 Yes [id number] Apply to [facility] ne 8-31 area(s) 2 ity of acetonide 00:00: (two) [place] 0.1 % cream 00 times Medical daily. To Branch bumps mupirocin 2 2-0 Yes [id number] Apply to [facility] % ointment 8-31 area(s) 3 ity of 00:00: (three) [place] 00 times Medical daily. To Branch open wounds triamcinolo 2-0 Yes [id number] Apply to [facility] ne 8-31 area(s) 2 ity of acetonide 00:00: (two) [place] 0.1 % cream 00 times Medical daily. To Branch bumps mupirocin 2 2021-0 Yes [id number] Apply to [facility] % ointment 8-31 area(s) 3 ity of 00:00: (three) [place] 00 times Medical daily. To Branch open wounds triamcinolo 2021-0 Yes [id number] Apply to [facility] ne 8-31 area(s) 2 ity of acetonide 00:00: (two) [place] 0.1 % cream 00 times Medical daily. To Branch bumps mupirocin 2 2021-0 Yes [id number] Apply to [facility] % ointment 8-31 area(s) 3 ity of 00:00: (three) [place] 00 times Medical daily. To Branch open wounds triamcinolo 2021-0 Yes [id number] Apply to [facility] ne 8-31 area(s) 2 ity of acetonide 00:00: (two) [place] 0.1 % cream 00 times Medical daily. To Branch bumps mupirocin 2 2021-0 Yes [id number] Apply to [facility] % ointment 8-31 area(s) 3 ity of 00:00: (three) [place] 00 times Medical daily. To Branch open wounds triamcinolo 2021-0 Yes [id number] Apply to [facility] ne 8-31 area(s) 2 ity of acetonide 00:00: (two) [place] 0.1 % cream 00 times Medical daily. To Branch bumps mupirocin 2 2021-0 Yes [id number] Apply to [facility] % ointment 8-31 area(s) 3 ity of 00:00: (three) [place] 00 times Medical daily. To Branch open wounds triamcinolo 2-0 Yes [id number] Apply to [facility] ne 8-31 area(s) 2 ity of acetonide 00:00: (two) [place] 0.1 % cream 00 times Medical daily. To Branch bumps mupirocin 2 2-0 Yes [id number] Apply to [facility] % ointment 8-31 area(s) 3 ity of 00:00: (three) [place] 00 times Medical daily. To Branch open wounds triamcinolo 2022-0 Yes [id number] Apply to [facility] ne 8-31 area(s) 2 ity of acetonide 00:00: (two) [place] 0.1 % cream 00 times Medical daily. To Branch bumps mupirocin 2 2-0 Yes [id number] Apply to [facility] % ointment 8-31 area(s) 3 ity of 00:00: (three) [place] 00 times Medical daily. To Branch open wounds triamcinolo 2-0 Yes [id number] Apply to [facility] ne 8-31 area(s) 2 ity of acetonide 00:00: (two) [place] 0.1 % cream 00 times Medical daily. To Branch bumps mupirocin 2 2-0 Yes [id number] Apply to [facility] % ointment 8-31 area(s) 3 ity of 00:00: (three) [place] 00 times Medical daily. To Branch open wounds triamcinolo 2-0 Yes [id number] Apply to [facility] ne 8-31 area(s) 2 ity of acetonide 00:00: (two) [place] 0.1 % cream 00 times Medical daily. To Branch bumps mupirocin 2 2-0 Yes [id number] Apply to [facility] % ointment 8-31 area(s) 3 ity of 00:00: (three) [place] 00 times Medical daily. To Branch open wounds triamcinolo 2-0 Yes [id number] Apply to [facility] ne 8-31 area(s) 2 ity of acetonide 00:00: (two) [place] 0.1 % cream 00 times Medical daily. To Branch bumps mupirocin 2 2-0 Yes [id number] Apply to [facility] % ointment 8-31 area(s) 3 ity of 00:00: (three) [place] 00 times Medical daily. To Branch open wounds triamcinolo 2-0 Yes [id number] Apply to [facility] ne 8-31 area(s) 2 ity of acetonide 00:00: (two) [place] 0.1 % cream 00 times Medical daily. To Branch bumps mupirocin 2 2-0 Yes [id number] Apply to [facility] % ointment 8-31 area(s) 3 ity of 00:00: (three) [place] 00 times Medical daily. To Branch open wounds triamcinolo 2-0 Yes [id number] Apply to [facility] ne 8-31 area(s) 2 ity of acetonide 00:00: (two) [place] 0.1 % cream 00 times Medical daily. To Branch bumps mupirocin 2 2-0 Yes [id number] Apply to [facility] % ointment 8-31 area(s) 3 ity of 00:00: (three) [place] 00 times Medical daily. To Branch open wounds triamcinolo 2-0 Yes [id number] Apply to [facility] ne 8-31 area(s) 2 ity of acetonide 00:00: (two) [place] 0.1 % cream 00 times Medical daily. To Branch bumps mupirocin 2 2021-0 Yes [id number] Apply to [facility] % ointment 8-31 area(s) 3 ity of 00:00: (three) [place] 00 times Medical daily. To Branch open wounds triamcinolo 2-0 Yes [id number] Apply to [facility] ne 8-31 area(s) 2 ity of acetonide 00:00: (two) [place] 0.1 % cream 00 times Medical daily. To Branch bumps mupirocin 2 2021-0 Yes [id number] Apply to [facility] % ointment 8-31 area(s) 3 ity of 00:00: (three) [place] 00 times Medical daily. To Branch open wounds triamcinolo 2-0 Yes [id number] Apply to [facility] ne 8-31 area(s) 2 ity of acetonide 00:00: (two) [place] 0.1 % cream 00 times Medical daily. To Branch bumps mupirocin 2 2-0 Yes [id number] Apply to [facility] % ointment 8-31 area(s) 3 ity of 00:00: (three) [place] 00 times Medical daily. To Branch open wounds triamcinolo 2-0 Yes [id number] Apply to [facility] ne 8-31 area(s) 2 ity of acetonide 00:00: (two) [place] 0.1 % cream 00 times Medical daily. To Branch bumps mupirocin 2 2-0 Yes [id number] Apply to [facility] % ointment 8-31 area(s) 3 ity of 00:00: (three) [place] 00 times Medical daily. To Branch open wounds triamcinolo 2021-0 Yes [id number] Apply to [facility] ne 8-31 area(s) 2 ity of acetonide 00:00: (two) [place] 0.1 % cream 00 times Medical daily. To Branch bumps mupirocin 2 2021-0 Yes [id number] Apply to [facility] % ointment 831 area(s) 3 ity of 00:00: (three) [place] 00 times Medical daily. To Branch open wounds triamcinolo 2021-0 Yes [id number] Apply to [facility] ne 8-31 area(s) 2 ity of acetonide 00:00: (two) [place] 0.1 % cream 00 times Medical daily. To Branch bumps mupirocin 2 2021-0 Yes [id number] Apply to [facility] % ointment 831 area(s) 3 ity of 00:00: (three) [place] 00 times Medical daily. To Branch open wounds triamcinolo 2021-0 Yes [id number] Apply to [facility] ne 8-31 area(s) 2 ity of acetonide 00:00: (two) [place] 0.1 % cream 00 times Medical daily. To Branch bumps mupirocin 2 2021-0 Yes [id number] Apply to [facility] % ointment 831 area(s) 3 ity of 00:00: (three) [place] 00 times Medical daily. To Branch open wounds dextroamphe 2021-0 Yes [id number] 20mg Take 1 [facility] tamine-amph 11-26 tablet by ity of etamine 00:00: mouth in [place] (ADDERALL) 00 the Medical 20 mg morning Branch tablet and 1 tablet at noon and 1 tablet in the evening. triamcinolo 2-0 Yes [id number] Apply to [facility] ne 8-31 area(s) 2 ity of acetonide 00:00: (two) [place] 0.1 % cream 00 times Medical daily. To Branch bumps mupirocin 2 2021-0 Yes [id number] Apply to [facility] % ointment 831 area(s) 3 ity of 00:00: (three) [place] 00 times Medical daily. To Branch open wounds dextroamphe 2022-0 Yes [id number] 20mg Take 1 [facility] tamine-amph 8-31 tablet by ity of etamine 00:00: mouth in [place] (ADDERALL) 00 the Medical 20 mg morning Branch tablet and 1 tablet at noon and 1 tablet in the evening. triamcinolo 2022-0 Yes [id number] Apply to [facility] ne 8-31 area(s) 2 ity of acetonide 00:00: (two) [place] 0.1 % cream 00 times Medical daily. To Branch bumps mupirocin 2 2021-0 Yes [id number] Apply to [facility] % ointment 8-31 area(s) 3 ity of 00:00: (three) [place] 00 times Medical daily. To Branch open wounds dextroamphe 2021-0 Yes [id number] 20mg Take 1 [facility] tamine-amph 8-31 tablet by ity of etamine 00:00: mouth in [place] (ADDERALL) 00 the Medical 20 mg morning Branch tablet and 1 tablet at noon and 1 tablet in the evening. triamcinolo 2021-0 Yes [id number] Apply to [facility] ne 8-31 area(s) 2 ity of acetonide 00:00: (two) [place] 0.1 % cream 00 times Medical daily. To Branch bumps mupirocin 2 2021-0 Yes [id number] Apply to [facility] % ointment 8-31 area(s) 3 ity of 00:00: (three) [place] 00 times Medical daily. To Branch open wounds triamcinolo 2021-0 Yes [id number] Apply to [facility] ne 8-31 area(s) 2 ity of acetonide 00:00: (two) [place] 0.1 % cream 00 times Medical daily. To Branch bumps mupirocin 2 2021-0 Yes [id number] Apply to [facility] % ointment 8-31 area(s) 3 ity of 00:00: (three) [place] 00 times Medical daily. To Branch open wounds triamcinolo 2-0 Yes [id number] Apply to [facility] ne 8-31 area(s) 2 ity of acetonide 00:00: (two) [place] 0.1 % cream 00 times Medical daily. To Branch bumps mupirocin 2 2021-0 Yes [id number] Apply to [facility] % ointment 8-31 area(s) 3 ity of 00:00: (three) [place] 00 times Medical daily. To Branch open wounds triamcinolo 2-0 Yes [id number] Apply to [facility] ne 8-31 area(s) 2 ity of acetonide 00:00: (two) [place] 0.1 % cream 00 times Medical daily. To Branch bumps mupirocin 2 2021-0 Yes [id number] Apply to [facility] % ointment 8-31 area(s) 3 ity of 00:00: (three) [place] 00 times Medical daily. To Branch open wounds triamcinolo 2-0 Yes [id number] Apply to [facility] ne 8-31 area(s) 2 ity of acetonide 00:00: (two) [place] 0.1 % cream 00 times Medical daily. To Branch bumps mupirocin 2 2021-0 Yes [id number] Apply to [facility] % ointment 8-31 area(s) 3 ity of 00:00: (three) [place] 00 times Medical daily. To Branch open wounds triamcinolo 2021-0 Yes [id number] Apply to [facility] ne 8-31 area(s) 2 ity of acetonide 00:00: (two) [place] 0.1 % cream 00 times Medical daily. To Branch bumps mupirocin 2 2021-0 Yes [id number] Apply to [facility] % ointment 8-31 area(s) 3 ity of 00:00: (three) [place] 00 times Medical daily. To Branch open wounds triamcinolo 2-0 Yes [id number] Apply to [facility] ne 8-31 area(s) 2 ity of acetonide 00:00: (two) [place] 0.1 % cream 00 times Medical daily. To Branch bumps mupirocin 2 2-0 Yes [id number] Apply to [facility] % ointment 8-31 area(s) 3 ity of 00:00: (three) [place] 00 times Medical daily. To Branch open wounds triamcinolo 2-0 Yes [id number] Apply to [facility] ne 8-31 area(s) 2 ity of acetonide 00:00: (two) [place] 0.1 % cream 00 times Medical daily. To Branch bumps mupirocin 2 2-0 Yes [id number] Apply to [facility] % ointment 8-31 area(s) 3 ity of 00:00: (three) [place] 00 times Medical daily. To Branch open wounds triamcinolo 2-0 Yes [id number] Apply to [facility] ne 8-31 area(s) 2 ity of acetonide 00:00: (two) [place] 0.1 % cream 00 times Medical daily. To Branch bumps mupirocin 2 2021-0 Yes [id number] Apply to [facility] % ointment 8-31 area(s) 3 ity of 00:00: (three) [place] 00 times Medical daily. To Branch open wounds triamcinolo 2-0 Yes [id number] Apply to [facility] ne 8-31 area(s) 2 ity of acetonide 00:00: (two) [place] 0.1 % cream 00 times Medical daily. To Branch bumps mupirocin 2 2021-0 Yes [id number] Apply to [facility] % ointment 8-31 area(s) 3 ity of 00:00: (three) [place] 00 times Medical daily. To Branch open wounds triamcinolo 2021-0 Yes [id number] Apply to [facility] ne 8-31 area(s) 2 ity of acetonide 00:00: (two) [place] 0.1 % cream 00 times Medical daily. To Branch bumps mupirocin 2 2021-0 Yes [id number] Apply to [facility] % ointment 8-31 area(s) 3 ity of 00:00: (three) [place] 00 times Medical daily. To Branch open wounds triamcinolo 2-0 Yes [id number] Apply to [facility] ne 8-31 area(s) 2 ity of acetonide 00:00: (two) [place] 0.1 % cream 00 times Medical daily. To Branch bumps mupirocin 2 2-0 Yes [id number] Apply to [facility] % ointment 8-31 area(s) 3 ity of 00:00: (three) [place] 00 times Medical daily. To Branch open wounds triamcinolo 2-0 Yes [id number] Apply to [facility] ne 8-31 area(s) 2 ity of acetonide 00:00: (two) [place] 0.1 % cream 00 times Medical daily. To Branch bumps mupirocin 2 2-0 Yes [id number] Apply to [facility] % ointment 8-31 area(s) 3 ity of 00:00: (three) [place] 00 times Medical daily. To Branch open wounds triamcinolo 2-0 Yes [id number] Apply to [facility] ne 8-31 area(s) 2 ity of acetonide 00:00: (two) [place] 0.1 % cream 00 times Medical daily. To Branch bumps mupirocin 2 2021-0 Yes [id number] Apply to [facility] % ointment 8-31 area(s) 3 ity of 00:00: (three) [place] 00 times Medical daily. To Branch open wounds triamcinolo 2-0 Yes [id number] Apply to [facility] ne 8-31 area(s) 2 ity of acetonide 00:00: (two) [place] 0.1 % cream 00 times Medical daily. To Branch bumps mupirocin 2 2021-0 Yes [id number] Apply to [facility] % ointment 8-31 area(s) 3 ity of 00:00: (three) [place] 00 times Medical daily. To Branch open wounds triamcinolo 2-0 Yes [id number] Apply to [facility] ne 8-31 area(s) 2 ity of acetonide 00:00: (two) [place] 0.1 % cream 00 times Medical daily. To Branch bumps mupirocin 2 2021-0 Yes [id number] Apply to [facility] % ointment 8-31 area(s) 3 ity of 00:00: (three) [place] 00 times Medical daily. To Branch open wounds triamcinolo 2-0 Yes [id number] Apply to [facility] ne 8-31 area(s) 2 ity of acetonide 00:00: (two) [place] 0.1 % cream 00 times Medical daily. To Branch bumps mupirocin 2 2-0 Yes [id number] Apply to [facility] % ointment 8-31 area(s) 3 ity of 00:00: (three) [place] 00 times Medical daily. To Branch open wounds triamcinolo 2-0 Yes [id number] Apply to [facility] ne 8-31 area(s) 2 ity of acetonide 00:00: (two) [place] 0.1 % cream 00 times Medical daily. To Branch bumps mupirocin 2 2-0 Yes [id number] Apply to [facility] % ointment 8-31 area(s) 3 ity of 00:00: (three) [place] 00 times Medical daily. To Branch open wounds triamcinolo 2-0 Yes [id number] Apply to [facility] ne 8-31 area(s) 2 ity of acetonide 00:00: (two) [place] 0.1 % cream 00 times Medical daily. To Branch bumps mupirocin 2 2021-0 Yes [id number] Apply to [facility] % ointment 8-31 area(s) 3 ity of 00:00: (three) [place] 00 times Medical daily. To Branch open wounds triamcinolo 2-0 Yes [id number] Apply to [facility] ne 8-31 area(s) 2 ity of acetonide 00:00: (two) [place] 0.1 % cream 00 times Medical daily. To Branch bumps mupirocin 2 2021-0 Yes [id number] Apply to [facility] % ointment 8-31 area(s) 3 ity of 00:00: (three) [place] 00 times Medical daily. To Branch open wounds triamcinolo 2-0 Yes [id number] Apply to [facility] ne 8-31 area(s) 2 ity of acetonide 00:00: (two) [place] 0.1 % cream 00 times Medical daily. To Branch bumps mupirocin 2 2-0 Yes [id number] Apply to [facility] % ointment 8-31 area(s) 3 ity of 00:00: (three) [place] 00 times Medical daily. To Branch open wounds triamcinolo 2-0 Yes [id number] Apply to [facility] ne 8-31 area(s) 2 ity of acetonide 00:00: (two) [place] 0.1 % cream 00 times Medical daily. To Branch bumps mupirocin 2 2-0 Yes [id number] Apply to [facility] % ointment 8-31 area(s) 3 ity of 00:00: (three) [place] 00 times Medical daily. To Branch open wounds triamcinolo 2-0 Yes [id number] Apply to [facility] ne 8-31 area(s) 2 ity of acetonide 00:00: (two) [place] 0.1 % cream 00 times Medical daily. To Branch bumps mupirocin 2 2-0 Yes [id number] Apply to [facility] % ointment 8-31 area(s) 3 ity of 00:00: (three) [place] 00 times Medical daily. To Branch open wounds triamcinolo 2-0 Yes [id number] Apply to [facility] ne 8-31 area(s) 2 ity of acetonide 00:00: (two) [place] 0.1 % cream 00 times Medical daily. To Branch bumps mupirocin 2 2021-0 Yes [id number] Apply to [facility] % ointment 8-31 area(s) 3 ity of 00:00: (three) [place] 00 times Medical daily. To Branch open wounds triamcinolo 2-0 Yes [id number] Apply to Univers ne 8-31 area(s) 2 ity of acetonide 00:00: (two) [place] 0.1 % cream 00 times Medical daily. To Branch bumps mupirocin 2 2021-0 Yes [id number] [facility] to [facility] % ointment 8-31 area(s) 3 ity of 00:00: (three) [place] 00 times Medical daily. To Branch open wounds triamcinolo 2-0 Yes [id number] Apply to [facility] ne 8-31 area(s) 2 ity of acetonide 00:00: (two) [place] 0.1 % cream 00 times Medical daily. To Branch bumps mupirocin 2 2-0 Yes [id number] Apply to [facility] % ointment 8-31 area(s) 3 ity of 00:00: (three) [place] 00 times Medical daily. To Branch open wounds triamcinolo 2-0 Yes [id number] Apply to [facility] ne 8-31 area(s) 2 ity of acetonide 00:00: (two) [place] 0.1 % cream 00 times Medical daily. To Branch bumps mupirocin 2 2-0 Yes [id number] Apply to [facility] % ointment 8-31 area(s) 3 ity of 00:00: (three) [place] 00 times Medical daily. To Branch open wounds triamcinolo 2-0 Yes [id number] Apply to [facility] ne 8-31 area(s) 2 ity of acetonide 00:00: (two) [place] 0.1 % cream 00 times Medical daily. To Branch bumps mupirocin 2 2-0 Yes [id number] Apply to [facility] % ointment 8-31 area(s) 3 ity of 00:00: (three) [place] 00 times Medical daily. To Branch open wounds triamcinolo 2-0 Yes [id number] Apply to [facility] ne 8-31 area(s) 2 ity of acetonide 00:00: (two) [place] 0.1 % cream 00 times Medical daily. To Branch bumps mupirocin 2 2021-0 Yes [id number] Apply to [facility] % ointment 8-31 area(s) 3 ity of 00:00: (three) [place] 00 times Medical daily. To Branch open wounds triamcinolo 2-0 Yes [id number] Apply to [facility] ne 8-31 area(s) 2 ity of acetonide 00:00: (two) [place] 0.1 % cream 00 times Medical daily. To Branch bumps mupirocin 2 2021-0 Yes [id number] Apply to [facility] % ointment 8-31 area(s) 3 ity of 00:00: (three) [place] 00 times Medical daily. To Branch open wounds triamcinolo 2-0 Yes [id number] Apply to [facility] ne 8-31 area(s) 2 ity of acetonide 00:00: (two) [place] 0.1 % cream 00 times Medical daily. To Branch bumps mupirocin 2 2021-0 Yes [id number] Apply to [facility] % ointment 8-31 area(s) 3 ity of 00:00: (three) [place] 00 times Medical daily. To Branch open wounds triamcinolo 2-0 Yes [id number] Apply to [facility] ne 8-31 area(s) 2 ity of acetonide 00:00: (two) [place] 0.1 % cream 00 times Medical daily. To Branch bumps mupirocin 2 2-0 Yes [id number] Apply to [facility] % ointment 8-31 area(s) 3 ity of 00:00: (three) [place] 00 times Medical daily. To Branch open wounds triamcinolo 2-0 Yes [id number] Apply to [facility] ne 8-31 area(s) 2 ity of acetonide 00:00: (two) [place] 0.1 % cream 00 times Medical daily. To Branch bumps mupirocin 2 2021-0 Yes [id number] Apply to [facility] % ointment 8-31 area(s) 3 ity of 00:00: (three) [place] 00 times Medical daily. To Branch open wounds triamcinolo 2-0 Yes [id number] Apply to [facility] ne 8-31 area(s) 2 ity of acetonide 00:00: (two) [place] 0.1 % cream 00 times Medical daily. To Branch bumps mupirocin 2 2021-0 Yes [id number] Apply to [facility] % ointment 8-31 area(s) 3 ity of 00:00: (three) [place] 00 times Medical daily. To Branch open wounds triamcinolo 2021-0 Yes [id number] Apply to [facility] ne 8-31 area(s) 2 ity of acetonide 00:00: (two) [place] 0.1 % cream 00 times Medical daily. To Branch bumps mupirocin 2 2021-0 Yes [id number] Apply to [facility] % ointment 8-31 area(s) 3 ity of 00:00: (three) [place] 00 times Medical daily. To Branch open wounds triamcinolo 2-0 Yes [id number] Apply to [facility] ne 8-31 area(s) 2 ity of acetonide 00:00: (two) [place] 0.1 % cream 00 times Medical daily. To Branch bumps mupirocin 2 2021-0 Yes [id number] Apply to [facility] % ointment 8-31 area(s) 3 ity of 00:00: (three) [place] 00 times Medical daily. To Branch open wounds triamcinolo 2-0 Yes [id number] Apply to [facility] ne 8-31 area(s) 2 ity of acetonide 00:00: (two) [place] 0.1 % cream 00 times Medical daily. To Branch bumps mupirocin 2 2-0 Yes [id number] Apply to [facility] % ointment 8-31 area(s) 3 ity of 00:00: (three) [place] 00 times Medical daily. To Branch open wounds triamcinolo 2-0 Yes [id number] Apply to [facility] ne 8-31 area(s) 2 ity of acetonide 00:00: (two) [place] 0.1 % cream 00 times Medical daily. To Branch bumps mupirocin 2 2021-0 Yes [id number] Apply to [facility] % ointment 8-31 area(s) 3 ity of 00:00: (three) [place] 00 times Medical daily. To Branch open wounds triamcinolo 2-0 Yes [id number] Apply to [facility] ne 8-31 area(s) 2 ity of acetonide 00:00: (two) [place] 0.1 % cream 00 times Medical daily. To Branch bumps mupirocin 2 2021-0 Yes [id number] Apply to [facility] % ointment 8-31 area(s) 3 ity of 00:00: (three) [place] 00 times Medical daily. To Branch open wounds triamcinolo 2021-0 Yes [id number] Apply to [facility] ne 8-31 area(s) 2 ity of acetonide 00:00: (two) [place] 0.1 % cream 00 times Medical daily. To Branch bumps mupirocin 2 2021-0 Yes [id number] Apply to [facility] % ointment 8-31 area(s) 3 ity of 00:00: (three) [place] 00 times Medical daily. To Branch open wounds triamcinolo 2-0 Yes [id number] Apply to [facility] ne 8-31 area(s) 2 ity of acetonide 00:00: (two) [place] 0.1 % cream 00 times Medical daily. To Branch bumps mupirocin 2 2021-0 Yes [id number] Apply to [facility] % ointment 8-31 area(s) 3 ity of 00:00: (three) [place] 00 times Medical daily. To Branch open wounds triamcinolo 2-0 Yes [id number] Apply to [facility] ne 8-31 area(s) 2 ity of acetonide 00:00: (two) [place] 0.1 % cream 00 times Medical daily. To Branch bumps mupirocin 2 2-0 Yes [id number] Apply to [facility] % ointment 8-31 area(s) 3 ity of 00:00: (three) [place] 00 times Medical daily. To Branch open wounds triamcinolo 2-0 Yes [id number] Apply to [facility] ne 8-31 area(s) 2 ity of acetonide 00:00: (two) [place] 0.1 % cream 00 times Medical daily. To Branch bumps mupirocin 2 2-0 Yes [id number] Apply to [facility] % ointment 8-31 area(s) 3 ity of 00:00: (three) [place] 00 times Medical daily. To Branch open wounds triamcinolo 2-0 Yes [id number] Apply to [facility] ne 8-31 area(s) 2 ity of acetonide 00:00: (two) [place] 0.1 % cream 00 times Medical daily. To Branch bumps mupirocin 2 2021-0 Yes [id number] Apply to [facility] % ointment 8-31 area(s) 3 ity of 00:00: (three) [place] 00 times Medical daily. To Branch open wounds triamcinolo 2-0 Yes [id number] Apply to [facility] ne 8-31 area(s) 2 ity of acetonide 00:00: (two) [place] 0.1 % cream 00 times Medical daily. To Branch bumps mupirocin 2 2021-0 Yes [id number] Apply to [facility] % ointment 8-31 area(s) 3 ity of 00:00: (three) [place] 00 times Medical daily. To Branch open wounds triamcinolo 2-0 Yes [id number] Apply to [facility] ne 8-31 area(s) 2 ity of acetonide 00:00: (two) [place] 0.1 % cream 00 times Medical daily. To Branch bumps mupirocin 2 2-0 Yes [id number] Apply to [facility] % ointment 8-31 area(s) 3 ity of 00:00: (three) [place] 00 times Medical daily. To Branch open wounds triamcinolo 2-0 Yes [id number] Apply to [facility] ne 8-31 area(s) 2 ity of acetonide 00:00: (two) [place] 0.1 % cream 00 times Medical daily. To Branch bumps mupirocin 2 2-0 Yes [id number] Apply to [facility] % ointment 8-31 area(s) 3 ity of 00:00: (three) [place] 00 times Medical daily. To Branch open wounds triamcinolo 2-0 Yes [id number] Apply to [facility] ne 8-31 area(s) 2 ity of acetonide 00:00: (two) [place] 0.1 % cream 00 times Medical daily. To Branch bumps mupirocin 2 2021-0 Yes [id number] Apply to [facility] % ointment 8-31 area(s) 3 ity of 00:00: (three) [place] 00 times Medical daily. To Branch open wounds triamcinolo 2-0 Yes [id number] Apply to [facility] ne 8-31 area(s) 2 ity of acetonide 00:00: (two) [place] 0.1 % cream 00 times Medical daily. To Branch bumps mupirocin 2 2021-0 Yes [id number] Apply to [facility] % ointment 8-31 area(s) 3 ity of 00:00: (three) [place] 00 times Medical daily. To Branch open wounds triamcinolo 2021-0 Yes [id number] Apply to [facility] ne 8-31 area(s) 2 ity of acetonide 00:00: (two) [place] 0.1 % cream 00 times Medical daily. To Branch bumps mupirocin 2 2021-0 Yes [id number] Apply to [facility] % ointment 8-31 area(s) 3 ity of 00:00: (three) [place] 00 times Medical daily. To Branch open wounds triamcinolo 2-0 Yes [id number] Apply to [facility] ne 8-31 area(s) 2 ity of acetonide 00:00: (two) [place] 0.1 % cream 00 times Medical daily. To Branch bumps mupirocin 2 2-0 Yes [id number] Apply to [facility] % ointment 8-31 area(s) 3 ity of 00:00: (three) [place] 00 times Medical daily. To Branch open wounds triamcinolo 2-0 Yes [id number] Apply to [facility] ne 8-31 area(s) 2 ity of acetonide 00:00: (two) [place] 0.1 % cream 00 times Medical daily. To Branch bumps mupirocin 2 2-0 Yes [id number] Apply to [facility] % ointment 831 area(s) 3 ity of 00:00: (three) [place] 00 times Medical daily. To Branch open wounds triamcinolo 2021-0 Yes [id number] Apply to [facility] ne 8-31 area(s) 2 ity of acetonide 00:00: (two) [place] 0.1 % cream 00 times Medical daily. To Branch bumps mupirocin 2 2021-0 Yes [id number] Apply to [facility] % ointment 8 area(s) 3 ity of 00:00: (three) [place] 00 times Medical daily. To Branch open wounds triamcinolo 2021-0 Yes [id number] Apply to [facility] ne 8-31 area(s) 2 ity of acetonide 00:00: (two) [place] 0.1 % cream 00 times Medical daily. To Branch bumps mupirocin 2 2021-0 Yes [id number] Apply to [facility] % ointment 11-26 area(s) 3 ity of 00:00: (three) [place] 00 times Medical daily. To Branch open wounds triamcinolo 2021-0 Yes [id number] Apply to [facility] ne 8- area(s) 2 ity of acetonide 00:00: (two) [place] 0.1 % cream 00 times Medical daily. To Branch bumps mupirocin 2 2021-0 Yes [id number] Apply to [facility] % ointment 11-26 area(s) 3 ity of 00:00: (three) [place] 00 times Medical daily. To Branch open wounds triamcinolo 2021-0 3- No [id number] Apply to [facility] ne 11-26 05-09 area(s) 2 ity of acetonide 00:00: 00:00 (two) [place] 0.1 % cream 00 :00 times Medical daily. To Branch bumps mupirocin 2 2021-0 2022- No [id number] Apply to [facility] % ointment 11-26-09 area(s) 3 ity of 00:00: 00:00 (three) [place] 00 :00 times Medical daily. To Branch open wounds triamcinolo 2021-0 2022- No [id number] Apply to [facility] ne 8- 05-09 area(s) 2 ity of acetonide 00:00: 00:00 (two) [place] 0.1 % cream 00 :00 times Medical daily. To Branch bumps mupirocin 2 2022- No [id number] Apply to [facility] % ointment 11-26 area(s) 3 ity of 00:00: 00:00 (three) [place] 00 :00 times Medical daily. To Branch open wounds dextroamphe 2021- No [id number] 20mg Take 1 [facility] tamine-amph 11-26 tablet by it y of etamine 00:00: 00:00 mouth in [place] (ADDERALL) 00 :00 the Medical 20 mg morning Branch tablet and 1 tablet at noon and 1 tablet in the evening. amoxicillin Yes [id number] 1{tbl} Take 1 [facility] -clavulanat 8-30 tablet by ity of e 875-125 00:00: mouth [place] mg per 00 every 12 Medical tablet (twelve) Branch hours. amoxicillin Yes [id number] 1{tbl} Take 1 [facility] -clavulanat 8-30 tablet by ity of e 875-125 00:00: mouth [place] mg per 00 every 12 Medical tablet (twelve) Branch hours. amoxicillin Yes [id number] 1{tbl} Take 1 [facility] -clavulanat 8-30 tablet by ity of e 875-125 00:00: mouth [place] mg per 00 every 12 Medical tablet (twelve) Branch hours. amoxicillin Yes [id number] 1{tbl} Take 1 [facility] -clavulanat 8-30 tablet by ity of e 875-125 00:00: mouth [place] mg per 00 every 12 Medical tablet (twelve) Branch hours. amoxicillin Yes [id number] 1{tbl} Take 1 [facility] -clavulanat 8-30 tablet by ity of e 875-125 00:00: mouth [place] mg per 00 every 12 Medical tablet (twelve) Branch hours. amoxicillin Yes [id number] 1{tbl} Take 1 [facility] -clavulanat 8-30 tablet by ity of e 875-125 00:00: mouth [place] mg per 00 every 12 Medical tablet (twelve) Branch hours. amoxicillin Yes [id number] 1{tbl} Take 1 [facility] -clavulanat 8-30 tablet by ity of e 875-125 00:00: mouth [place] mg per 00 every 12 Medical tablet (twelve) Branch hours. amoxicillin 2-0 Yes [id number] 1{tbl} Take 1 [facility] -clavulanat 8-30 tablet by ity of e 875-125 00:00: mouth [place] mg per 00 every 12 Medical tablet (twelve) Branch hours. amoxicillin 2022-0 Yes [id number] 1{tbl} Take 1 [facility] -clavulanat 8-30 tablet by ity of e 875-125 00:00: mouth [place] mg per 00 every 12 Medical tablet (twelve) Branch hours. amoxicillin 202-0 Yes [id number] 1{tbl} Take 1 [facility] -clavulanat 8-30 tablet by ity of e 875-125 00:00: mouth [place] mg per 00 every 12 Medical tablet (twelve) Branch hours. amoxicillin 2021-0 Yes [id number] 1{tbl} Take 1 [facility] -clavulanat 8-30 tablet by ity of e 875-125 00:00: mouth [place] mg per 00 every 12 Medical tablet (twelve) Branch hours. amoxicillin 202-0 Yes [id number] 1{tbl} Take 1 [facility] -clavulanat 8-30 tablet by ity of e 875-125 00:00: mouth [place] mg per 00 every 12 Medical tablet (twelve) Branch hours. amoxicillin 2021-0 Yes [id number] 1{tbl} Take 1 [facility] -clavulanat 8-30 tablet by ity of e 875-125 00:00: mouth [place] mg per 00 every 12 Medical tablet (twelve) Branch hours. amoxicillin 2022-0 Yes [id number] 1{tbl} Take 1 [facility] -clavulanat 8-30 tablet by ity of e 875-125 00:00: mouth [place] mg per 00 every 12 Medical tablet (twelve) Branch hours. amoxicillin 2022-0 Yes [id number] 1{tbl} Take 1 [facility] -clavulanat 8-30 tablet by ity of e 875-125 00:00: mouth [place] mg per 00 every 12 Medical tablet (twelve) Branch hours. amoxicillin 2022-0 Yes [id number] 1{tbl} Take 1 [facility] -clavulanat 8-30 tablet by ity of e 875-125 00:00: mouth [place] mg per 00 every 12 Medical tablet (twelve) Branch hours. amoxicillin Yes [id number] 1{tbl} Take 1 [facility] -clavulanat 8-30 tablet by ity of e 875-125 00:00: mouth [place] mg per 00 every 12 Medical tablet (twelve) Branch hours. amoxicillin 2021- Yes [id number] 1{tbl} Take 1 [facility] -clavulanat 8-30 tablet by ity of e 875-125 00:00: mouth [place] mg per 00 every 12 Medical tablet (twelve) Branch hours. amoxicillin 2021- No [id number] 1{tbl} Take 1 [facility] -clavulanat 8-30 11-01 tablet by it y of e 875-125 00:00: 00:00 mouth [place] mg per 00 :00 every 12 Medical tablet (twelve) Branch hours. amoxicillin 2021- No [id number] 1{tbl} Take 1 [facility] -clavulanat 8-30 11-01 tablet by it y of e 875-125 00:00: 00:00 mouth [place] mg per 00 :00 every 12 Medical tablet (twelve) Branch hours. permethrin Yes [id number] Apply to [facility] (ELIMITE) 5 8-23 skin and ity of % cream 00:00: leave on [place] 00 for 8 - 10 Medical hours then Branch repeat in a week permethrin 2021- No [id number] Apply to [facility] (ELIMITE) 5 8- 09-08 skin and ity of % cream 00:00: 00:00 leave on [place] 00 :00 for 8 - 10 Medical hours then Branch repeat in a week permethrin 2021- No [id number] Apply to [facility] (ELIMITE) 5 8- 09-08 skin and ity of % cream 00:00: 00:00 leave on [place] 00 :00 for 8 - 10 Medical hours then Branch repeat in a week TRAZODONE 2021- Yes [id number] TAKE 1 [facility] vers 50 mg 8-08 TABLET BY ity of tablet 00:00: MOUTH [place] 00 EVERYDAY Medical AT BEDTIME Branch TRAZODONE 2021-0 Yes [id number] TAKE 1 [facility] vers 50 mg 8-08 TABLET BY ity of tablet 00:00: MOUTH EVERYDAY Medical AT BEDTIME Branch TRAZODONE 2022-0 Yes [id number] TAKE 1 [facility] vers 50 mg 8-08 TABLET BY ity of tablet 00:00: MOUTH EVERYDAY Medical AT BEDTIME Branch TRAZODONE 2-0 Yes [id number] TAKE 1 [facility] vers 50 mg 8-08 TABLET BY ity of tablet 00:00: MOUTH EVERYDAY Medical AT BEDTIME Branch TRAZODONE 2021-0 Yes [id number] TAKE 1 [facility] vers 50 mg 8-08 TABLET BY ity of tablet 00:00: MOUTH EVERYDAY Medical AT BEDTIME Branch TRAZODONE 2021-0 Yes [id number] TAKE 1 [facility] vers 50 mg 8-08 TABLET BY ity of tablet 00:00: EVERYDAY Medical AT BEDTIME Branch TRAZODONE 2021-0 Yes [id number] TAKE 1 [facility] vers 50 mg 8-08 TABLET BY ity of tablet 00:00: EVERYDAY Medical AT BEDTIME Branch TRAZODONE 2021-0 Yes [id number] TAKE 1 [facility] vers 50 mg 8-08 TABLET BY ity of tablet 00:00: MOUTH EVERYDAY Medical AT BEDTIME Branch TRAZODONE 2021-0 Yes [id number] TAKE 1 [facility] vers 50 mg 8-08 TABLET BY ity of tablet 00:00: EVERYDAY Medical AT BEDTIME Branch TRAZODONE 2021-0 Yes [id number] TAKE 1 [facility] vers 50 mg 8-08 TABLET BY ity of tablet 00:00: MOUTH EVERYDAY Medical AT BEDTIME Branch TRAZODONE 2-0 Yes [id number] TAKE 1 [facility] vers 50 mg 8-08 TABLET BY ity of tablet 00:00: MOUTH EVERYDAY Medical AT BEDTIME Branch TRAZODONE 2-0 Yes [id number] TAKE 1 [facility] vers 50 mg 8-08 TABLET BY ity of tablet 00:00: MOUTH EVERYDAY Medical AT BEDTIME Branch TRAZODONE 2-0 Yes [id number] TAKE 1 [facility] vers 50 mg 8-08 TABLET BY ity of tablet 00:00: MOUTH EVERYDAY Medical AT BEDTIME Branch TRAZODONE 2-0 Yes [id number] TAKE 1 [facility] vers 50 mg 8-08 TABLET BY ity of tablet 00:00: MOUTH EVERYDAY Medical AT BEDTIME Branch TRAZODONE 2021-0 Yes [id number] TAKE 1 [facility] vers 50 mg 8-08 TABLET BY ity of tablet 00:00: MOUTH EVERYDAY Medical AT BEDTIME Branch TRAZODONE 2-0 Yes [id number] TAKE 1 [facility] vers 50 mg 8-08 TABLET BY ity of tablet 00:00: MOUTH EVERYDAY Medical AT BEDTIME Branch TRAZODONE 2021-0 Yes [id number] TAKE 1 [facility] vers 50 mg 8-08 TABLET BY ity of tablet 00:00: MOUTH EVERYDAY Medical AT BEDTIME Branch TRAZODONE 2021-0 Yes [id number] TAKE 1 [facility] vers 50 mg 8-08 TABLET BY ity of tablet 00:00: MOUTH EVERYDAY Medical AT BEDTIME Branch TRAZODONE 2021-0 Yes [id number] TAKE 1 [facility] vers 50 mg 8-08 TABLET BY ity of tablet 00:00: MOUTH EVERYDAY Medical AT BEDTIME Branch TRAZODONE 2021-0 Yes [id number] TAKE 1 [facility] vers 50 mg 8-08 TABLET BY ity of tablet 00:00: MOUTH EVERYDAY Medical AT BEDTIME Branch TRAZODONE 2021-0 Yes [id number] TAKE 1 [facility] vers 50 mg 8-08 TABLET BY ity of tablet 00:00: MOUTH EVERYDAY Medical AT BEDTIME Branch TRAZODONE 2021-0 Yes [id number] TAKE 1 [facility] vers 50 mg 8-08 TABLET BY ity of tablet 00:00: MOUTH EVERYDAY Medical AT BEDTIME Branch TRAZODONE 2021-0 Yes [id number] TAKE 1 [facility] vers 50 mg 8-08 TABLET BY ity of tablet 00:00: MOUTH EVERYDAY Medical AT BEDTIME Branch TRAZODONE 2-0 Yes [id number] TAKE 1 [facility] vers 50 mg 8-08 TABLET BY ity of tablet 00:00: MOUTH EVERYDAY Medical AT BEDTIME Branch TRAZODONE 2-0 Yes [id number] TAKE 1 [facility] vers 50 mg 8-08 TABLET BY ity of tablet 00:00: MOUTH EVERYDAY Medical AT BEDTIME Branch TRAZODONE 2-0 Yes [id number] TAKE 1 [facility] vers 50 mg 8-08 TABLET BY ity of tablet 00:00: MOUTH EVERYDAY Medical AT BEDTIME Branch TRAZODONE 2-0 Yes [id number] TAKE 1 [facility] vers 50 mg 8-08 TABLET BY ity of tablet 00:00: MOUTH EVERYDAY Medical AT BEDTIME Branch TRAZODONE 2022-0 Yes [id number] TAKE 1 [facility] vers 50 mg 8-08 TABLET BY ity of tablet 00:00: MOUTH EVERYDAY Medical AT BEDTIME Branch TRAZODONE 2-0 Yes [id number] TAKE 1 [facility] vers 50 mg 8-08 TABLET BY ity of tablet 00:00: MOUTH EVERYDAY Medical AT BEDTIME Branch TRAZODONE 2021-0 Yes [id number] TAKE 1 [facility] vers 50 mg 8-08 TABLET BY ity of tablet 00:00: MOUTH EVERYDAY Medical AT BEDTIME Branch TRAZODONE 2021-0 Yes [id number] TAKE 1 [facility] vers 50 mg 8-08 TABLET BY ity of tablet 00:00: EVERYDAY Medical AT BEDTIME Branch TRAZODONE 2021-0 Yes [id number] TAKE 1 [facility] vers 50 mg 8-08 TABLET BY ity of tablet 00:00: EVERYDAY Medical AT BEDTIME Branch TRAZODONE 2021-0 Yes [id number] TAKE 1 [facility] vers 50 mg 8-08 TABLET BY ity of tablet 00:00: MOUTH EVERYDAY Medical AT BEDTIME Branch TRAZODONE 2021-0 Yes [id number] TAKE 1 [facility] vers 50 mg 8-08 TABLET BY ity of tablet 00:00: EVERYDAY Medical AT BEDTIME Branch TRAZODONE 2021-0 Yes [id number] TAKE 1 [facility] vers 50 mg 8-08 TABLET BY ity of tablet 00:00: MOUTH EVERYDAY Medical AT BEDTIME Branch TRAZODONE 2-0 Yes [id number] TAKE 1 [facility] vers 50 mg 8-08 TABLET BY ity of tablet 00:00: MOUTH EVERYDAY Medical AT BEDTIME Branch TRAZODONE 2-0 Yes [id number] TAKE 1 [facility] vers 50 mg 8-08 TABLET BY ity of tablet 00:00: MOUTH EVERYDAY Medical AT BEDTIME Branch TRAZODONE 2-0 Yes [id number] TAKE 1 [facility] vers 50 mg 8-08 TABLET BY ity of tablet 00:00: MOUTH EVERYDAY Medical AT BEDTIME Branch TRAZODONE 2-0 Yes [id number] TAKE 1 [facility] vers 50 mg 8-08 TABLET BY ity of tablet 00:00: MOUTH EVERYDAY Medical AT BEDTIME Branch TRAZODONE 2021-0 Yes [id number] TAKE 1 [facility] vers 50 mg 8-08 TABLET BY ity of tablet 00:00: MOUTH EVERYDAY Medical AT BEDTIME Branch TRAZODONE 2-0 Yes [id number] TAKE 1 [facility] vers 50 mg 8-08 TABLET BY ity of tablet 00:00: MOUTH EVERYDAY Medical AT BEDTIME Branch TRAZODONE 2021-0 Yes [id number] TAKE 1 [facility] vers 50 mg 8-08 TABLET BY ity of tablet 00:00: MOUTH EVERYDAY Medical AT BEDTIME Branch TRAZODONE 2021-0 Yes [id number] TAKE 1 [facility] vers 50 mg 8-08 TABLET BY ity of tablet 00:00: MOUTH EVERYDAY Medical AT BEDTIME Branch TRAZODONE 2021-0 Yes [id number] TAKE 1 [facility] vers 50 mg 8-08 TABLET BY ity of tablet 00:00: MOUTH EVERYDAY Medical AT BEDTIME Branch TRAZODONE 2021-0 Yes [id number] TAKE 1 [facility] vers 50 mg 8-08 TABLET BY ity of tablet 00:00: MOUTH EVERYDAY Medical AT BEDTIME Branch TRAZODONE 2021-0 Yes [id number] TAKE 1 [facility] vers 50 mg 8-08 TABLET BY ity of tablet 00:00: MOUTH EVERYDAY Medical AT BEDTIME Branch TRAZODONE 2021-0 Yes [id number] TAKE 1 [facility] vers 50 mg 8-08 TABLET BY ity of tablet 00:00: MOUTH EVERYDAY Medical AT BEDTIME Branch TRAZODONE 2021-0 Yes [id number] TAKE 1 [facility] vers 50 mg 8-08 TABLET BY ity of tablet 00:00: MOUTH EVERYDAY Medical AT BEDTIME Branch TRAZODONE 2-0 Yes [id number] TAKE 1 [facility] vers 50 mg 8-08 TABLET BY ity of tablet 00:00: MOUTH EVERYDAY Medical AT BEDTIME Branch TRAZODONE 2-0 Yes [id number] TAKE 1 [facility] vers 50 mg 8-08 TABLET BY ity of tablet 00:00: MOUTH EVERYDAY Medical AT BEDTIME Branch TRAZODONE 2-0 Yes [id number] TAKE 1 [facility] vers 50 mg 8-08 TABLET BY ity of tablet 00:00: MOUTH EVERYDAY Medical AT BEDTIME Branch TRAZODONE 2-0 Yes [id number] TAKE 1 [facility] vers 50 mg 8-08 TABLET BY ity of tablet 00:00: MOUTH EVERYDAY Medical AT BEDTIME Branch TRAZODONE 2022-0 Yes [id number] TAKE 1 [facility] vers 50 mg 8-08 TABLET BY ity of tablet 00:00: MOUTH EVERYDAY Medical AT BEDTIME Branch TRAZODONE 2-0 Yes [id number] TAKE 1 [facility] vers 50 mg 8-08 TABLET BY ity of tablet 00:00: MOUTH EVERYDAY Medical AT BEDTIME Branch TRAZODONE 2021-0 Yes [id number] TAKE 1 [facility] vers 50 mg 8-08 TABLET BY ity of tablet 00:00: MOUTH EVERYDAY Medical AT BEDTIME Branch TRAZODONE 2021-0 Yes [id number] TAKE 1 [facility] vers 50 mg 8-08 TABLET BY ity of tablet 00:00: EVERYDAY Medical AT BEDTIME Branch TRAZODONE 2021-0 Yes [id number] TAKE 1 [facility] vers 50 mg 8-08 TABLET BY ity of tablet 00:00: EVERYDAY Medical AT BEDTIME Branch TRAZODONE 2021-0 Yes [id number] TAKE 1 [facility] vers 50 mg 8-08 TABLET BY ity of tablet 00:00: MOUTH EVERYDAY Medical AT BEDTIME Branch TRAZODONE 2021-0 Yes [id number] TAKE 1 [facility] vers 50 mg 8-08 TABLET BY ity of tablet 00:00: EVERYDAY Medical AT BEDTIME Branch TRAZODONE 2021-0 Yes [id number] TAKE 1 [facility] vers 50 mg 8-08 TABLET BY ity of tablet 00:00: MOUTH EVERYDAY Medical AT BEDTIME Branch TRAZODONE 2-0 Yes [id number] TAKE 1 [facility] vers 50 mg 8-08 TABLET BY ity of tablet 00:00: MOUTH EVERYDAY Medical AT BEDTIME Branch TRAZODONE 2-0 Yes [id number] TAKE 1 [facility] vers 50 mg 8-08 TABLET BY ity of tablet 00:00: MOUTH EVERYDAY Medical AT BEDTIME Branch TRAZODONE 2-0 Yes [id number] TAKE 1 [facility] vers 50 mg 8-08 TABLET BY ity of tablet 00:00: MOUTH EVERYDAY Medical AT BEDTIME Branch TRAZODONE 2-0 Yes [id number] TAKE 1 [facility] vers 50 mg 8-08 TABLET BY ity of tablet 00:00: MOUTH EVERYDAY Medical AT BEDTIME Branch TRAZODONE 2021-0 Yes [id number] TAKE 1 [facility] vers 50 mg 8-08 TABLET BY ity of tablet 00:00: MOUTH EVERYDAY Medical AT BEDTIME Branch TRAZODONE 2-0 Yes [id number] TAKE 1 [facility] vers 50 mg 8-08 TABLET BY ity of tablet 00:00: MOUTH EVERYDAY Medical AT BEDTIME Branch TRAZODONE 2021-0 Yes [id number] TAKE 1 [facility] vers 50 mg 8-08 TABLET BY ity of tablet 00:00: MOUTH EVERYDAY Medical AT BEDTIME Branch TRAZODONE 2021-0 Yes [id number] TAKE 1 [facility] vers 50 mg 8-08 TABLET BY ity of tablet 00:00: MOUTH EVERYDAY Medical AT BEDTIME Branch TRAZODONE 2021-0 Yes [id number] TAKE 1 [facility] vers 50 mg 8-08 TABLET BY ity of tablet 00:00: MOUTH EVERYDAY Medical AT BEDTIME Branch TRAZODONE 2021-0 Yes [id number] TAKE 1 [facility] vers 50 mg 8-08 TABLET BY ity of tablet 00:00: MOUTH EVERYDAY Medical AT BEDTIME Branch TRAZODONE 2021-0 Yes [id number] TAKE 1 [facility] vers 50 mg 8-08 TABLET BY ity of tablet 00:00: MOUTH EVERYDAY Medical AT BEDTIME Branch TRAZODONE 2021-0 Yes [id number] TAKE 1 [facility] vers 50 mg 8-08 TABLET BY ity of tablet 00:00: MOUTH EVERYDAY Medical AT BEDTIME Branch TRAZODONE 2021-0 Yes [id number] TAKE 1 [facility] vers 50 mg 8-08 TABLET BY ity of tablet 00:00: MOUTH EVERYDAY Medical AT BEDTIME Branch TRAZODONE 2-0 Yes [id number] TAKE 1 [facility] vers 50 mg 8-08 TABLET BY ity of tablet 00:00: MOUTH EVERYDAY Medical AT BEDTIME Branch TRAZODONE 2-0 Yes [id number] TAKE 1 [facility] vers 50 mg 8-08 TABLET BY ity of tablet 00:00: MOUTH EVERYDAY Medical AT BEDTIME Branch TRAZODONE 2-0 Yes [id number] TAKE 1 [facility] vers 50 mg 8-08 TABLET BY ity of tablet 00:00: MOUTH EVERYDAY Medical AT BEDTIME Branch TRAZODONE 2-0 Yes [id number] TAKE 1 [facility] vers 50 mg 8-08 TABLET BY ity of tablet 00:00: MOUTH EVERYDAY Medical AT BEDTIME Branch TRAZODONE 2022-0 Yes [id number] TAKE 1 [facility] vers 50 mg 8-08 TABLET BY [facility] of tablet 00:00: MOUTH EVERYDAY Medical AT BEDTIME Branch TRAZODONE 2-0 Yes [id number] TAKE 1 [facility] vers 50 mg 8-08 TABLET BY [facility] of tablet 00:00: MOUTH EVERYDAY Medical AT BEDTIME Branch TRAZODONE 2021-0 Yes [id number] TAKE 1 [facility] vers 50 mg 8-08 TABLET BY [facility] of tablet 00:00: MOUTH EVERYDAY Medical AT BEDTIME Branch TRAZODONE 2021-0 Yes [id number] TAKE 1 [facility] vers 50 mg 8-08 TABLET BY [facility] of tablet 00:00: EVERYDAY Medical AT BEDTIME Branch TRAZODONE 2021-0 Yes [id number] TAKE 1 [facility] vers 50 mg 8-08 TABLET BY [facility] of tablet 00:00: EVERYDAY Medical AT BEDTIME Branch TRAZODONE 2021-0 Yes [id number] TAKE 1 [facility] vers 50 mg 8-08 TABLET BY [facility] of tablet 00:00: MOUTH EVERYDAY Medical AT BEDTIME Branch TRAZODONE 2021-0 Yes [id number] TAKE 1 [facility] vers 50 mg 8-08 TABLET BY [facility] of tablet 00:00: EVERYDAY Medical AT BEDTIME Branch TRAZODONE 2021-0 Yes [id number] TAKE 1 [facility] vers 50 mg 8-08 TABLET BY [facility] of tablet 00:00: MOUTH EVERYDAY Medical AT BEDTIME Branch TRAZODONE 2-0 Yes [id number] TAKE 1 [facility] vers 50 mg 8-08 TABLET BY it[facility] of tablet 00:00: MOUTH EVERYDAY Medical AT BEDTIME Branch TRAZODONE 2-0 Yes [id number] TAKE 1 [facility] vers 50 mg 8-08 TABLET BY ity of tablet 00:00: MOUTH EVERYDAY Medical AT BEDTIME Branch TRAZODONE 2-0 Yes [id number] TAKE 1 [facility] vers 50 mg 8-08 TABLET BY ity of tablet 00:00: MOUTH EVERYDAY Medical AT BEDTIME Branch TRAZODONE 2-0 Yes [id number] TAKE 1 [facility] vers 50 mg 8-08 TABLET BY it[facility] of tablet 00:00: MOUTH EVERYDAY Medical AT BEDTIME Branch TRAZODONE 2021-0 Yes [id number] TAKE 1 [facility] vers 50 mg 8-08 TABLET BY it[facility] of tablet 00:00: MOUTH EVERYDAY Medical AT BEDTIME Branch TRAZODONE 2-0 Yes [id number] TAKE 1 [facility] vers 50 mg 8-08 TABLET BY ity of tablet 00:00: MOUTH EVERYDAY Medical AT BEDTIME Branch TRAZODONE 2021-0 Yes [id number] TAKE 1 [facility] vers 50 mg 8-08 TABLET BY [facility]y of tablet 00:00: MOUTH EVERYDAY Medical AT BEDTIME Branch TRAZODONE 2021-0 Yes [id number] TAKE 1 [facility] vers 50 mg 8-08 TABLET BY ity of tablet 00:00: MOUTH EVERYDAY Medical AT BEDTIME Branch TRAZODONE 2021-0 Yes [id number] TAKE 1 [facility] 50 mg 8-08 TABLET BY [facility] of tablet 00:00: MOUTH EVERYDAY Medical AT BEDTIME Branch TRAZODONE 2021-0 Yes [id number] TAKE 1 [facility] 50 mg 8-08 TABLET BY [facility] of tablet 00:00: MOUTH EVERYDAY Medical AT BEDTIME Branch TRAZODONE 2021-0 Yes [id number] TAKE 1 [facility] 50 mg 8-08 TABLET BY [facility] of tablet 00:00: MOUTH EVERYDAY Medical AT BEDTIME Branch TRAZODONE 2021-0 Yes [id number] TAKE 1 [facility] 50 mg 8-08 TABLET BY [facility] of tablet 00:00: MOUTH EVERYDAY Medical AT BEDTIME Branch TRAZODONE 2021-0 Yes [id number] TAKE 1 [facility] 50 mg 8-08 TABLET BY ity of tablet 00:00: MOUTH EVERYDAY Medical AT BEDTIME Branch TRAZODONE 2-0 Yes [id number] TAKE 1 [facility] 50 mg 8-08 TABLET BY ity of tablet 00:00: MOUTH EVERYDAY Medical AT BEDTIME Branch TRAZODONE 2-0 Yes [id number] TAKE 1 [facility] 50 mg 8-08 TABLET BY ity of tablet 00:00: MOUTH EVERYDAY Medical AT BEDTIME Branch TRAZODONE 2-0 Yes [id number] TAKE 1 [facility] 50 mg 8-08 TABLET BY ity of tablet 00:00: MOUTH EVERYDAY Medical AT BEDTIME Branch TRAZODONE 2-0 Yes [id number] TAKE 1 [facility] vers 50 mg 8-08 TABLET BY ity of tablet 00:00: MOUTH EVERYDAY Medical AT BEDTIME Branch TRAZODONE 2022-0 Yes [id number] TAKE 1 [facility] vers 50 mg 8-08 TABLET BY ity of tablet 00:00: [facility] 00 EVERYDAY Medical AT BEDTIME Branch TRAZODONE 2022-0 Yes [id number] TAKE 1 [facility] vers 50 mg 8-08 TABLET BY ity of tablet 00:00: [facility] EVERYDAY Medical AT BEDTIME Branch TRAZODONE 2-0 Yes [id number] TAKE 1 [facility] vers 50 mg 8-08 TABLET BY ity of tablet 00:00: MOUTH EVERYDAY Medical AT BEDTIME Branch TRAZODONE 2-0 Yes [id number] TAKE 1 [facility] vers 50 mg 8-08 TABLET BY ity of tablet 00:00: [facility] EVERYDAY Medical AT BEDTIME Branch TRAZODONE 2-0 Yes [id number] TAKE 1 [facility] vers 50 mg 8-08 TABLET BY ity of tablet 00:00: [facility] EVERYDAY Medical AT BEDTIME Branch TRAZODONE 2-0 Yes [id number] TAKE 1 [facility] vers 50 mg 8-08 TABLET BY ity of tablet 00:00: MOUTH EVERYDAY Medical AT BEDTIME Branch TRAZODONE 2-0 Yes [id number] TAKE 1 [facility] vers 50 mg 8-08 TABLET BY ity of tablet 00:00: [facility] EVERYDAY Medical AT BEDTIME Branch TRAZODONE 2-0 Yes [id number] TAKE 1 [facility] vers 50 mg 8-08 TABLET BY ity of tablet 00:00: [facility] EVERYDAY Medical AT BEDTIME Branch TRAZODONE 2022-0 Yes [id number] TAKE 1 [facility] vers 50 mg 8-08 TABLET BY ity of tablet 00:00: MOUTH EVERYDAY Medical AT BEDTIME Branch TRAZODONE 2022-0 Yes [id number] TAKE 1 [facility] vers 50 mg 8-08 TABLET BY ity of tablet 00:00: [facility] EVERYDAY Medical AT BEDTIME Branch clonazePAM 2-0 Yes [id number] 1mg Take 1 [facility] 1 mg tablet 7-13 tablet by ity of 00:00: mouth in [place] the Medical morning Branch and 1 tablet at noon and 1 tablet in the evening. clonazePAM 2-0 Yes [id number] 1mg Take 1 [facility] 1 mg tablet 7-13 tablet by ity of 00:00: mouth in [place] [address] the Medical morning Branch and 1 tablet at noon and 1 tablet in the evening. clonazePAM 2022-0 Yes [id number] 1mg Take 1 [facility] 1 mg tablet 7-13 tablet by ity of 00:00: mouth in [place] [address] the Medical morning Branch and 1 tablet at noon and 1 tablet in the evening. clonazePAM 2022-0 Yes [id number] 1mg Take 1 [facility] 1 mg tablet 7-13 tablet by ity of 00:00: mouth in [place] [address] the Medical morning Branch and 1 tablet at noon and 1 tablet in the evening. clonazePAM 2022-0 Yes [id number] 1mg Take 1 [facility] 1 mg tablet 7-13 tablet by ity of 00:00: mouth in [place] [address] the Medical morning [place] and 1 tablet at noon and 1 tablet in the evening. clonazePAM 2022-0 Yes [id number] 1mg Take 1 [facility] 1 mg tablet 7-13 tablet by ity of 00:00: mouth in [address] morning [place] and 1 tablet at noon and 1 tablet in the evening. clonazePAM 2022-0 Yes [id number] 1mg Take 1 [facility] 1 mg tablet 7-13 tablet by ity of 00:00: mouth in [address] morning [place] and 1 tablet at noon and 1 tablet in the evening. clonazePAM 2022-0 Yes [id number] 1mg Take 1 [facility] 1 mg tablet 7-13 tablet by ity of 00:00: mouth in [address] morning [place] and 1 tablet at noon and 1 tablet in the evening. clonazePAM 2022-0 Yes [id number] 1mg Take 1 [facility] 1 mg tablet 7-13 tablet by ity of 00:00: mouth in [address] Medical morning [place] and 1 tablet at noon and 1 tablet in the evening. clonazePAM 2022-0 Yes [id number] 1mg Take 1 [facility] 1 mg tablet 7-13 tablet by ity of 00:00: mouth in [place] [address] [facility] morning [place] and 1 tablet at noon and 1 tablet in the evening. clonazePAM 2022-0 Yes [id number] 1mg Take 1 [facility] 1 mg tablet 7-13 tablet by ity of 00:00: mouth in [address] morning [place] and 1 tablet at noon and 1 tablet in the evening. clonazePAM 2022-0 Yes [id number] 1mg Take 1 [facility] 1 mg tablet 7-13 tablet by ity of 00:00: mouth in [place] 00 the Medical morning Branch and 1 tablet at noon and 1 tablet in the evening. clonazePAM 2022-0 Yes [id number] 1mg Take 1 [facility] 1 mg tablet 7-13 tablet by ity of 00:00: mouth in [place] 00 the Medical morning Branch and 1 tablet at noon and 1 tablet in the evening. clonazePAM 2022-0 Yes [id number] 1mg Take 1 [facility] 1 mg tablet 7-13 tablet by ity of 00:00: mouth in [place] 00 the Medical morning Branch and 1 tablet at noon and 1 tablet in the evening. clonazePAM 2022-0 Yes [id number] 1mg Take 1 [facility] 1 mg tablet 7-13 tablet by ity of 00:00: mouth in [place] 00 the Medical morning Branch and 1 tablet at noon and 1 tablet in the evening. clonazePAM 2022-0 Yes [id number] 1mg Take 1 [facility] 1 mg tablet 7-13 tablet by ity of 00:00: mouth in [place] [address] the Medical morning Branch and 1 tablet at noon and 1 tablet in the evening. clonazePAM 2022-0 Yes [id number] 1mg Take 1 [facility] 1 mg tablet 7-13 tablet by ity of 00:00: mouth in [place] 00 the Medical morning Branch and 1 tablet at noon and 1 tablet in the evening. clonazePAM 2022-0 Yes [id number] 1mg Take 1 [facility] 1 mg tablet 7-13 tablet by ity of 00:00: mouth in [place] 00 the Medical morning Branch and 1 tablet at noon and 1 tablet in the evening. clonazePAM 2022-0 2022- No [id number] 1mg Take 1 [facility] 1 mg tablet 7-13 - tablet by it y of 00:00: 00:00 mouth in [place] 00 :00 the Medical morning Branch and 1 tablet at noon and 1 tablet in the evening. clonazePAM 2022-0 2022- No [id number] 1mg Take 1 [facility] 1 mg tablet 7-13 - tablet by it y of 00:00: 00:00 mouth in [place] 00 :00 the Medical morning Branch and 1 tablet at noon and 1 tablet in the evening. ZONISAMIDE 2022-0 Yes [id number] TAKE 1 [facility] 100 mg 7-12 CAPSULE BY ity of capsule 00:00: MOUTH 00 TWICE A Medical DAY Branch ZONISAMIDE 2021-0 Yes [id number] TAKE 1 [facility] 100 mg 7-12 CAPSULE BY ity of capsule 00:00: MOUTH TWICE A Medical DAY Branch ZONISAMIDE 2021-0 Yes [id number] TAKE 1 [facility] 100 mg 7-12 CAPSULE BY ity of capsule 00:00: MOUTH TWICE A Medical DAY Branch ZONISAMIDE 2021-0 Yes [id number] TAKE 1 [facility] 100 mg 7-12 CAPSULE BY ity of capsule 00:00: MOUTH TWICE A Medical DAY Branch ZONISAMIDE 2021-0 Yes [id number] TAKE 1 [facility] 100 mg 7-12 CAPSULE BY ity of capsule 00:00: MOUTH TWICE A Medical DAY Branch ZONISAMIDE 2021-0 Yes [id number] TAKE 1 [facility] 100 mg 7-12 CAPSULE BY ity of capsule 00:00: MOUTH TWICE A Medical DAY Branch ZONISAMIDE 2021-0 Yes [id number] TAKE 1 [facility] 100 mg 7-12 CAPSULE BY ity of capsule 00:00: MOUTH TWICE A Medical DAY Branch ZONISAMIDE 2021-0 Yes [id number] TAKE 1 [facility] 100 mg 7-12 CAPSULE BY ity of capsule 00:00: MOUTH TWICE A Medical DAY Branch ZONISAMIDE 2021-0 Yes [id number] TAKE 1 [facility] 100 mg 7-12 CAPSULE BY ity of capsule 00:00: MOUTH TWICE A Medical DAY Branch ZONISAMIDE 2021-0 Yes [id number] TAKE 1 [facility] 100 mg 7-12 CAPSULE BY ity of capsule 00:00: MOUTH TWICE A Medical DAY Branch ZONISAMIDE 2021-0 Yes [id number] TAKE 1 [facility] 100 mg 7-12 CAPSULE BY ity of capsule 00:00: MOUTH TWICE A Medical DAY Branch ZONISAMIDE 2021-0 Yes [id number] TAKE 1 [facility] 100 mg 7-12 CAPSULE BY ity of capsule 00:00: MOUTH TWICE A Medical DAY Branch ZONISAMIDE 2021-0 Yes [id number] TAKE 1 [facility] 100 mg 7-12 CAPSULE BY ity of capsule 00:00: MOUTH TWICE A Medical DAY Branch ZONISAMIDE 2021-0 Yes [id number] TAKE 1 [facility] 100 mg 7-12 CAPSULE BY ity of capsule 00:00: MOUTH [place] 00 TWICE A Medical DAY Branch ZONISAMIDE 2-0 Yes [id number] TAKE 1 [facility] 100 mg 7-12 CAPSULE BY ity of capsule 00:00: MOUTH TWICE A Medical DAY Branch ZONISAMIDE 2021-0 Yes [id number] TAKE 1 [facility] 100 mg 7-12 CAPSULE BY ity of capsule 00:00: MOUTH TWICE A Medical DAY Branch ZONISAMIDE 2021-0 Yes [id number] TAKE 1 [facility] 100 mg 7-12 CAPSULE BY ity of capsule 00:00: MOUTH TWICE A Medical DAY Branch ZONISAMIDE 2021-0 Yes [id number] TAKE 1 [facility] 100 mg 7-12 CAPSULE BY ity of capsule 00:00: MOUTH TWICE A Medical DAY Branch ZONISAMIDE 2021-0 Yes [id number] TAKE 1 [facility] 100 mg 7-12 CAPSULE BY ity of capsule 00:00: MOUTH TWICE A Medical DAY Branch ZONISAMIDE 2021-0 Yes [id number] TAKE 1 [facility] 100 mg 7-12 CAPSULE BY ity of capsule 00:00: MOUTH TWICE A Medical DAY Branch ZONISAMIDE 2021-0 Yes [id number] TAKE 1 [facility] 100 mg 7-12 CAPSULE BY ity of capsule 00:00: MOUTH TWICE A Medical DAY Branch ZONISAMIDE 2021-0 Yes [id number] TAKE 1 [facility] 100 mg 7-12 CAPSULE BY ity of capsule 00:00: MOUTH TWICE A Medical DAY Branch ZONISAMIDE 2021-0 Yes [id number] TAKE 1 [facility] 100 mg 7-12 CAPSULE BY ity of capsule 00:00: MOUTH TWICE A Medical DAY Branch ZONISAMIDE 2021-0 Yes [id number] TAKE 1 [facility] 100 mg 7-12 CAPSULE BY ity of capsule 00:00: MOUTH TWICE A Medical DAY Branch ZONISAMIDE 2021-0 Yes [id number] TAKE 1 [facility] 100 mg 7-12 CAPSULE BY ity of capsule 00:00: MOUTH TWICE A Medical DAY Branch ZONISAMIDE 2021-0 Yes [id number] TAKE 1 [facility] 100 mg 7-12 CAPSULE BY ity of capsule 00:00: MOUTH TWICE A Medical DAY Branch ZONISAMIDE 2022-0 Yes [id number] TAKE 1 [facility] 100 mg 7-12 CAPSULE BY ity of capsule 00:00: MOUTH [place] 00 TWICE A Medical DAY Branch ZONISAMIDE 2021-0 Yes [id number] TAKE 1 [facility] 100 mg 7-12 CAPSULE BY ity of capsule 00:00: MOUTH [place] 00 TWICE A Medical DAY Branch ZONISAMIDE 2021-0 Yes [id number] TAKE 1 [facility] 100 mg 7-12 CAPSULE BY ity of capsule 00:00: MOUTH [place] 00 TWICE A Medical DAY Branch ZONISAMIDE 2021-0 Yes [id number] TAKE 1 [facility] 100 mg 7-12 CAPSULE BY ity of capsule 00:00: MOUTH [place] 00 TWICE A Medical DAY Branch ZONISAMIDE 2021-0 Yes [id number] TAKE 1 [facility] 100 mg 7-12 CAPSULE BY ity of capsule 00:00: MOUTH [place] 00 TWICE A Medical DAY [place] ZONISAMIDE 2021-0 2021- No [id number] TAKE 1 [facility] 100 mg 7-12 12-27 CAPSULE BY ity of capsule 00:00: 00:00 MOUTH [place] 00 :00 TWICE A Medical DAY Branch SYNTHROID 2021-0 Yes [id number] TAKE 1 U nivers 150 mcg 7-08 TABLET BY ity of tablet 00:00: MOUTH [place] 00 EVERY DAY Medical IN THE [place] MORNING SYNTHROID 2021-0 Yes [id number] TAKE 1 U nivers 150 mcg 7-08 TABLET BY ity of tablet 00:00: MOUTH [place] 00 EVERY DAY Medical IN THE [place] MORNING SYNTHROID 2021-0 Yes [id number] TAKE 1 U nivers 150 mcg 7-08 TABLET BY ity of tablet 00:00: MOUTH [place] 00 EVERY DAY Medical IN THE [place] MORNING SYNTHROID 2021-0 Yes [id number] TAKE 1 U nivers 150 mcg 7-08 TABLET BY ity of tablet 00:00: MOUTH [place] 00 EVERY DAY Medical IN THE [place] MORNING SYNTHROID 2021-0 Yes [id number] TAKE 1 U nivers 150 mcg 7-08 TABLET BY ity of tablet 00:00: MOUTH [place] 00 EVERY DAY Medical IN THE [place] MORNING SYNTHROID 2021-0 Yes [id number] TAKE 1 U nivers 150 mcg 7-08 TABLET BY ity of tablet 00:00: MOUTH [place] 00 EVERY DAY Medical IN THE [place] MORNING SYNTHROID 2021-0 Yes [id number] TAKE 1 U nivers 150 mcg 7-08 TABLET BY ity of tablet 00:00: MOUTH [place] 00 EVERY DAY Medical IN THE [facility] SYNTHROID Yes [id number] TAKE 1 U nivers 150 mcg 7-08 TABLET BY ity of tablet 00:00: MOUTH [place] 00 EVERY DAY Medical IN THE [facility] SYNTHROID Yes [id number] TAKE 1 U nivers 150 mcg 7-08 TABLET BY ity of tablet 00:00: MOUTH [place] 00 EVERY DAY Medical IN THE [facility] SYNTHROID Yes [id number] TAKE 1 U nivers 150 mcg 7-08 TABLET BY ity of tablet 00:00: MOUTH [place] 00 EVERY DAY Medical IN THE [facility] SYNTHROID Yes [id number] TAKE 1 U nivers 150 mcg 7-08 TABLET BY ity of tablet 00:00: MOUTH [place] 00 EVERY DAY Medical IN THE [facility] SYNTHROID Yes [id number] TAKE 1 U nivers 150 mcg 7-08 TABLET BY ity of tablet 00:00: MOUTH [place] 00 EVERY DAY Medical IN THE [facility] SYNTHROID Yes [id number] TAKE 1 U nivers 150 mcg 7-08 TABLET BY ity of tablet 00:00: MOUTH [place] 00 EVERY DAY Medical IN THE [facility] SYNTHROID Yes [id number] TAKE 1 U nivers 150 mcg 7-08 TABLET BY ity of tablet 00:00: MOUTH [place] 00 EVERY DAY Medical IN THE [facility] SYNTHROID Yes [id number] TAKE 1 U nivers 150 mcg 7-08 TABLET BY ity of tablet 00:00: MOUTH [place] 00 EVERY DAY Medical IN THE [facility] SYNTHROID Yes [id number] TAKE 1 U nivers 150 mcg 7-08 TABLET BY ity of tablet 00:00: MOUTH [place] 00 EVERY DAY Medical IN THE [facility] SYNTHROID Yes [id number] TAKE 1 U nivers 150 mcg 7-08 TABLET BY ity of tablet 00:00: MOUTH [place] 00 EVERY DAY Medical IN THE [facility] SYNTHROID 0 Yes [id number] TAKE 1 U nivers 150 mcg 7-08 TABLET BY ity of tablet 00:00: MOUTH [place] 00 EVERY DAY Medical IN THE [facility] SYNTHROID Yes [id number] TAKE 1 U nivers 150 mcg 7-08 TABLET BY ity of tablet 00:00: MOUTH [place] 00 EVERY DAY Medical IN THE [facility] SYNTHROID 0 Yes [id number] TAKE 1 U nivers 150 mcg 7-08 TABLET BY ity of tablet 00:00: MOUTH [place] 00 EVERY DAY Medical IN THE [place] MORNING SYNTHROID 0 Yes [id number] TAKE 1 U nivers 150 mcg 7-08 TABLET BY ity of tablet 00:00: MOUTH [place] 00 EVERY DAY Medical IN THE [facility] SYNTHROID Yes [id number] TAKE 1 U nivers 150 mcg 7-08 TABLET BY ity of tablet 00:00: MOUTH [place] 00 EVERY DAY Medical IN THE [facility] SYNTHROID Yes [id number] TAKE 1 U nivers 150 mcg 7-08 TABLET BY ity of tablet 00:00: MOUTH [place] 00 EVERY DAY Medical IN THE [facility] SYNTHROID Yes [id number] TAKE 1 U nivers 150 mcg 7-08 TABLET BY ity of tablet 00:00: MOUTH [place] 00 EVERY DAY Medical IN THE [facility] SYNTHROID Yes [id number] TAKE 1 U nivers 150 mcg 7-08 TABLET BY ity of tablet 00:00: MOUTH [place] 00 EVERY DAY Medical IN THE [facility] SYNTHROID Yes [id number] TAKE 1 U nivers 150 mcg 7-08 TABLET BY ity of tablet 00:00: MOUTH [place] 00 EVERY DAY Medical IN THE [facility] SYNTHROID 0 Yes [id number] TAKE 1 U nivers 150 mcg 7-08 TABLET BY ity of tablet 00:00: MOUTH [place] 00 EVERY DAY Medical IN THE [facility] SYNTHROID 0 Yes [id number] TAKE 1 U nivers 150 mcg 7-08 TABLET BY ity of tablet 00:00: MOUTH [place] 00 EVERY DAY Medical IN THE [facility] SYNTHROID 0 Yes [id number] TAKE 1 U nivers 150 mcg 7-08 TABLET BY ity of tablet 00:00: MOUTH [place] 00 EVERY DAY Medical IN THE [facility] SYNTHROID 0 Yes [id number] TAKE 1 U nivers 150 mcg 7-08 TABLET BY ity of tablet 00:00: MOUTH [place] 00 EVERY DAY Medical IN THE [facility] SYNTHROID 0 Yes [id number] TAKE 1 U nivers 150 mcg 7-08 TABLET BY ity of tablet 00:00: MOUTH [place] 00 EVERY DAY Medical IN THE [place] MORNING SYNTHROID 2021-0 Yes [id number] TAKE 1 U nivers 150 mcg 7-08 TABLET BY ity of tablet 00:00: MOUTH 00 EVERY DAY Medical IN THE [place] MORNING SYNTHROID 2021-0 3- No [id number] TAKE 1 [facility] 150 mcg 7-08 - TABLET BY ity of tablet 00:00: 00:00 MOUTH [place] 00 :00 EVERY DAY Medical IN THE [place] MORNING SERTRALINE 2021-0 Yes [id number] TAKE 1 [facility] 100 mg 6-17 TABLET BY ity of tablet 00:00: MOUTH 00 EVERY DAY Medical Branch SERTRALINE 2021-0 Yes [id number] TAKE 1 [facility] 100 mg 6-17 TABLET BY ity of tablet 00:00: MOUTH 00 EVERY DAY Medical Branch SERTRALINE 2021-0 Yes [id number] TAKE 1 [facility] 100 mg 6-17 TABLET BY ity of tablet 00:00: MOUTH 00 EVERY DAY Medical Branch SERTRALINE 2021-0 Yes [id number] TAKE 1 [facility] 100 mg 6-17 TABLET BY ity of tablet 00:00: MOUTH [place] 00 EVERY DAY Medical Branch SERTRALINE 2021-0 Yes [id number] TAKE 1 [facility] 100 mg 6-17 TABLET BY ity of tablet 00:00: MOUTH 00 EVERY DAY Medical Branch SERTRALINE 2021-0 Yes [id number] TAKE 1 [facility] 100 mg 6-17 TABLET BY ity of tablet 00:00: MOUTH 00 EVERY DAY Medical Branch SERTRALINE 2021-0 Yes [id number] TAKE 1 [facility] 100 mg 6-17 TABLET BY ity of tablet 00:00: MOUTH 00 EVERY DAY Medical Branch SERTRALINE 2021-0 Yes [id number] TAKE 1 [facility] 100 mg 6-17 TABLET BY ity of tablet 00:00: MOUTH 00 EVERY DAY Medical Branch SERTRALINE 2021-0 Yes [id number] TAKE 1 [facility] 100 mg 6-17 TABLET BY ity of tablet 00:00: MOUTH 00 EVERY DAY Medical Branch SERTRALINE 2021-0 Yes [id number] TAKE 1 [facility] 100 mg 6-17 TABLET BY ity of tablet 00:00: MOUTH 00 EVERY DAY Medical Branch SERTRALINE 2021-0 Yes [id number] TAKE 1 [facility] 100 mg 6-17 TABLET BY ity of tablet 00:00: MOUTH [place] 00 EVERY DAY Medical Branch SERTRALINE 2021-0 Yes [id number] TAKE 1 [facility] 100 mg 6-17 TABLET BY ity of tablet 00:00: MOUTH [place] 00 EVERY DAY Medical Branch SERTRALINE 2021-0 Yes [id number] TAKE 1 [facility] 100 mg 6-17 TABLET BY ity of tablet 00:00: MOUTH [place] 00 EVERY DAY Medical Branch SERTRALINE 2021-0 Yes [id number] TAKE 1 [facility] 100 mg 6-17 TABLET BY ity of tablet 00:00: MOUTH [place] 00 EVERY DAY Medical Branch SERTRALINE 2021-0 Yes [id number] TAKE 1 [facility] 100 mg 6-17 TABLET BY ity of tablet 00:00: MOUTH [place] 00 EVERY DAY Medical Branch SERTRALINE 2021-0 Yes [id number] TAKE 1 [facility] 100 mg 6-17 TABLET BY ity of tablet 00:00: MOUTH [place] 00 EVERY DAY Medical Branch SERTRALINE 2021-0 Yes [id number] TAKE 1 [facility] 100 mg 6-17 TABLET BY ity of tablet 00:00: MOUTH [place] 00 EVERY DAY Medical Branch SERTRALINE 2021-0 Yes [id number] TAKE 1 [facility] 100 mg 6-17 TABLET BY ity of tablet 00:00: MOUTH [place] 00 EVERY DAY Medical Branch SERTRALINE 2021-0 Yes [id number] TAKE 1 [facility] 100 mg 6-17 TABLET BY ity of tablet 00:00: [facility] 00 EVERY DAY Medical Branch SERTRALINE 2021-0 Yes [id number] TAKE 1 [facility] 100 mg 6-17 TABLET BY ity of tablet 00:00: [facility] 00 EVERY DAY Medical Branch SERTRALINE 2021-0 Yes [id number] TAKE 1 [facility] 100 mg 6-17 TABLET BY ity of tablet 00:00: MOUTH [place] 00 EVERY DAY Medical Branch SERTRALINE 2021-0 Yes [id number] TAKE 1 [facility] 100 mg 6-17 TABLET BY ity of tablet 00:00: [facility] 00 EVERY DAY Medical Branch SERTRALINE 2021-0 2- No [id number] TAKE 1 [facility] 100 mg 6-17 12-13 TABLET BY ity of tablet 00:00: 00:00 MOUTH [place] 00 :00 EVERY DAY Medical Branch acetaminoph 2021-0 Yes Take by Uni vers en (TYLENOL 2-10 mouth. ity of ORAL) 15:18: [place] [facility] Branch acetaminoph 2022-0 Yes Take by Uni vers en (TYLENOL 2-10 mouth. ity of ORAL) 15:18: [address] acetaminoph 0 Yes Take by [facility] vers en (TYLENOL 2-10 mouth. ity of ORAL) 15:18: [address] acetaminoph 0 Yes Take by [facility] vers en (TYLENOL 2-10 mouth. ity of ORAL) 15:18: [address] acetaminoph Yes Take by [facility] vers en (TYLENOL 2-10 mouth. ity of ORAL) 15:18: [address] acetaminoph Yes Take by [facility] vers en (TYLENOL 2-10 mouth. ity of ORAL) 15:18: [address] acetaminoph Yes Take by [facility] vers en (TYLENOL 2-10 mouth. ity of ORAL) 15:18: [address] acetaminoph Yes Take by [facility] vers en (TYLENOL 2-10 mouth. ity of ORAL) 15:18: [address] acetaminoph Yes Take by [facility] vers en (TYLENOL 2-10 mouth. ity of ORAL) 15:18: [address] acetaminoph Yes Take by [facility] vers en (TYLENOL 2-10 mouth. ity of ORAL) 15:18: [address] acetaminoph Yes Take by [facility] vers en (TYLENOL 2-10 mouth. ity of ORAL) 15:18: [address] acetaminoph Yes Take by [facility] vers en (TYLENOL 2-10 mouth. ity of ORAL) 15:18: [address] acetaminoph Yes Take by [facility] vers en (TYLENOL 2-10 mouth. ity of ORAL) 15:18: [address] acetaminoph Yes Take by [facility] vers en (TYLENOL 2-10 mouth. ity of ORAL) 15:18: [address] acetaminoph 0 Yes Take by [facility] vers en (TYLENOL 2-10 mouth. ity of ORAL) 15:18: [address] acetaminoph Yes Take by [facility] vers en (TYLENOL 2-10 mouth. ity of ORAL) 15:18: [address] acetaminoph 0 Yes Take by [facility] vers en (TYLENOL 2-10 mouth. ity of ORAL) 15:18: [address] acetaminoph Yes Take by [facility] vers en (TYLENOL 2-10 mouth. ity of ORAL) 15:18: [address] acetaminoph Yes Take by [facility] vers en (TYLENOL 2-10 mouth. ity of ORAL) 15:18: [address] Branch acetaminoph Yes Take by [facility] vers en (TYLENOL 2-10 mouth. ity of ORAL) 15:18: [address] Branch acetaminoph Yes Take by [facility] vers en (TYLENOL 2-10 mouth. ity of ORAL) 15:18: [address] acetaminoph Yes Take by [facility] vers en (TYLENOL 2-10 mouth. ity of ORAL) 15:18: [address] acetaminoph Yes Take by [facility] vers en (TYLENOL 2-10 mouth. ity of ORAL) 15:18: [address] acetaminoph Yes Take by [facility] vers en (TYLENOL 2-10 mouth. ity of ORAL) 15:18: [address] acetaminoph Yes Take by [facility] vers en (TYLENOL 2-10 mouth. ity of ORAL) 15:18: [address] acetaminoph Yes Take by [facility] vers en (TYLENOL 2-10 mouth. ity of ORAL) 15:18: [address] acetaminoph Yes Take by [facility] vers en (TYLENOL 2-10 mouth. ity of ORAL) 15:18: [address] acetaminoph Yes Take by [facility] vers en (TYLENOL 2-10 mouth. ity of ORAL) 15:18: [address] acetaminoph Yes Take by [facility] vers en (TYLENOL 2-10 mouth. ity of ORAL) 15:18: [address] acetaminoph Yes Take by [facility] vers en (TYLENOL 2-10 mouth. ity of ORAL) 15:18: [address] acetaminoph Yes Take by [facility] vers en (TYLENOL 2-10 mouth. ity of ORAL) 15:18: [address] Branch acetaminoph 0 Yes Take by [facility] vers en (TYLENOL 2-10 mouth. ity of ORAL) 15:18: [address] acetaminoph 0 Yes Take by [facility] vers en (TYLENOL 2-10 mouth. ity of ORAL) 15:18: [address] acetaminoph 0 Yes Take by Uni vers en (TYLENOL 2-10 mouth. ity of ORAL) 15:18: [address] Branch acetaminoph 0 Yes Take by Uni vers en (TYLENOL 2-10 mouth. ity of ORAL) 15:18: [address] acetaminoph 0 Yes Take by [facility] vers [facility] (TYLENOL 2-10 mouth. ity of ORAL) 15:18: [address] acetaminoph Yes Take by [facility] vers [facility] (TYLENOL 2-10 mouth. ity of ORAL) 15:18: [address] acetaminoph Yes Take by [facility] vers [facility] (TYLENOL 2-10 mouth. ity of ORAL) 15:18: [address] acetaminoph Yes Take by [facility] vers [facility] (TYLENOL 2-10 mouth. ity of ORAL) 15:18: [address] acetaminoph Yes Take by [facility] vers [facility] (TYLENOL 2-10 mouth. ity of ORAL) 15:18: [address] acetaminoph Yes Take by [facility] vers [facility] (TYLENOL 2-10 mouth. ity of ORAL) 15:18: [address] acetaminoph Yes Take by [facility] vers [facility] (TYLENOL 2-10 mouth. ity of ORAL) 15:18: [address] acetaminoph Yes Take by [facility] vers [facility] (TYLENOL 2-10 mouth. ity of ORAL) 15:18: [address] acetaminoph 0 Yes Take by [facility] vers [facility] (TYLENOL 2-10 mouth. ity of ORAL) 15:18: [address] acetaminoph Yes Take by [facility] vers en (TYLENOL 2-10 mouth. ity of ORAL) 15:18: [address] acetaminoph 2022-0 Yes Take by [facility] vers en (TYLENOL 2-10 mouth. ity of ORAL) 15:18: [address] Branch acetaminoph 0 Yes Take by [facility] vers en (TYLENOL 2-10 mouth. ity of ORAL) 15:18: [address] acetaminoph 0 Yes Take by [facility] vers en (TYLENOL 2-10 mouth. ity of ORAL) 15:18: [address] Branch acetaminoph 0 Yes Take by [facility] vers en (TYLENOL 2-10 mouth. ity of ORAL) 15:18: [address] Branch acetaminoph 0 Yes Take by [facility] vers [facility] (TYLENOL 2-10 mouth. ity of ORAL) 15:18: [address] acetaminoph 0 Yes Take by [facility] vers en (TYLENOL 2-10 mouth. ity of ORAL) 15:18: [address] acetaminoph Yes Take by [facility] vers en (TYLENOL 2-10 mouth. ity of ORAL) 15:18: [address] acetaminoph Yes Take by [facility] vers en (TYLENOL 2-10 mouth. ity of ORAL) 15:18: [address] acetaminoph Yes Take by [facility] vers en (TYLENOL 2-10 mouth. ity of ORAL) 15:18: [address] acetaminoph Yes Take by [facility] vers en (TYLENOL 2-10 mouth. ity of ORAL) 15:18: [address] acetaminoph Yes Take by [facility] vers [facility] (TYLENOL 2-10 mouth. ity of ORAL) 15:18: [address] acetaminoph Yes Take by [facility] vers [facility] (TYLENOL 2-10 mouth. ity of ORAL) 15:18: [address] acetaminoph Yes Take by [facility] vers [facility] (TYLENOL 2-10 mouth. ity of ORAL) 15:18: [address] acetaminoph 0 Yes Take by [facility] vers [facility] (TYLENOL 2-10 mouth. ity of ORAL) 15:18: [address] acetaminoph Yes Take by [facility] vers en (TYLENOL 2-10 mouth. ity of ORAL) 15:18: [address] acetaminoph 0 Yes Take by [facility] vers en (TYLENOL 2-10 mouth. ity of ORAL) 15:18: [address] Branch acetaminoph 0 Yes Take by [facility] vers en (TYLENOL 2-10 mouth. ity of ORAL) 15:18: [address] acetaminoph 0 Yes Take by [facility] vers en (TYLENOL 2-10 mouth. ity of ORAL) 15:18: [address] acetaminoph 0 Yes Take by [facility] vers en (TYLENOL 2-10 mouth. ity of ORAL) 15:18: [address] Branch acetaminoph 0 Yes Take by [facility] vers en (TYLENOL 2-10 mouth. ity of ORAL) 15:18: [address] acetaminoph 0 Yes Take by [facility] vers en (TYLENOL 2-10 mouth. ity of ORAL) 15:18: [address] Branch acetaminoph Yes Take by [facility] vers en (TYLENOL 2-10 mouth. ity of ORAL) 15:18: [address] acetaminoph Yes Take by [facility] vers en (TYLENOL 2-10 mouth. ity of ORAL) 15:18: [address] acetaminoph Yes Take by [facility] vers en (TYLENOL 2-10 mouth. ity of ORAL) 15:18: [address] acetaminoph Yes Take by [facility] vers en (TYLENOL 2-10 mouth. ity of ORAL) 15:18: [address] acetaminoph Yes Take by [facility] vers en (TYLENOL 2-10 mouth. ity of ORAL) 15:18: [address] acetaminoph 0 Yes Take by [facility] vers en (TYLENOL 2-10 mouth. ity of ORAL) 15:18: [address] acetaminoph 0 Yes Take by [facility] vers en (TYLENOL 2-10 mouth. ity of ORAL) 15:18: [address] acetaminoph 0 Yes Take by [facility] vers en (TYLENOL 2-10 mouth. ity of ORAL) 15:18: [address] acetaminoph 0 Yes Take by [facility] vers en (TYLENOL 2-10 mouth. ity of ORAL) 15:18: [address] acetaminoph Yes Take by [facility] vers en (TYLENOL 2-10 mouth. ity of ORAL) 15:18: [address] acetaminoph Yes Take by [facility] vers en (TYLENOL 2-10 mouth. ity of ORAL) 15:18: [address] acetaminoph Yes Take by [facility] vers en (TYLENOL 2-10 mouth. ity of ORAL) 15:18: [address] acetaminoph Yes Take by [facility] vers en (TYLENOL 2-10 mouth. ity of ORAL) 15:18: [address] acetaminoph Yes Take by [facility] vers en (TYLENOL 2-10 mouth. ity of ORAL) 15:18: [address] acetaminoph Yes Take by [facility] vers en (TYLENOL 2-10 mouth. ity of ORAL) 15:18: [address] acetaminoph Yes Take by [facility] vers en (TYLENOL 2-10 mouth. ity of ORAL) 15:18: [address] acetaminoph Yes Take by [facility] vers en (TYLENOL 2-10 mouth. ity of ORAL) 15:18: [address] acetaminoph Yes Take by [facility] vers en (TYLENOL 2-10 mouth. ity of ORAL) 15:18: [address] acetaminoph Yes Take by [facility] vers en (TYLENOL 2-10 mouth. ity of ORAL) 15:18: [address] acetaminoph Yes Take by [facility] vers en (TYLENOL 2-10 mouth. ity of ORAL) 15:18: [address] acetaminoph Yes Take by [facility] vers en (TYLENOL 2-10 mouth. ity of ORAL) 15:18: [address] acetaminoph Yes Take by [facility] vers en (TYLENOL 2-10 mouth. ity of ORAL) 15:18: [address] acetaminoph Yes Take by Uni vers en (TYLENOL 2-10 mouth. ity of ORAL) 15:18: [address] proMETHazin 2020-03 Yes Insert 1 Un [...] within 6 hours of taking reglan. ibuprofen 2019-0 2020- No [id number] 800mg Take 1 Univers 800 mg 7- 08- tablet by ity of tablet 00:00: 04:59 mouth [place] 00 :00 every 6 Medical (six) Branch hours as needed for Pain (scale 4-6) for up to 21 days. sulfamethox 2019- No [id number] 1{tbl} Take 1 Univers azole-trime 7- tablet by it y of thoprim 00:00: 00:00 mouth 2 [place] (BACTRIM 00 :00 (two) Medical DS) 800-160 times Branch mg per daily for tablet 10 days. SERTraline 2020- No [id number] 50mg Take 1 Univers 50 mg 09-26- tablet by ity of tablet 00:00: 00:00 mouth [place] 00 :00 daily. Medical Branch dextroamphe 2019- No [id number] 20mg Take 1 Univers tamine-amph 6-20 10-30 tablet by it y of etamine 00:00: 00:00 mouth 3 [place] (ADDERALL) 00 :00 (three) Medica l 20 mg times Branch tablet daily. dextroamphe 2019- No [id number] Take 1 tab Univers tamine-amph 5-24 10-30 in morning i ty of etamine 10 00:00: 00:00 x 3 days [place] mg tablet 00 :00 then Medical increase Branch to 1 tab twice daily x 7 days then , if needed take 2 tabs twice daily (otherwise continue 1 tab twice daily), further refills from psychiatry clonazePAM 2019- No [id number] .5mg Take 1 Univers (KLONOPIN) 5-17 - tablet by ity of 0.5 mg 00:00: 00:00 mouth [place] tablet 00 :00 every 8 Medical (eight) Branch hours as needed (Anxiety). PANTOPRAZOL 2019- No [id number] TAKE 1 Univers E 40 mg EC 07-23- TABLET BY ity of tablet 00:00: 00:00 MOUTH [place] 00 :00 EVERY DAY Medical Branch [id number] 2020- No 1{dose} Take 1 U nivers carb,glu-FA 3-15 05-04 Dose by ity of -dss-dha 00:00: 00:00 [...] 5mg tablet as needed. levothyroxi 2019- No [id number] 112ug Take 1 Univers ne 3-09 12-15 tablet by ity of (SYNTHROID) 00:00: 00:00 mouth [place] 112 mcg 00 :00 every Medical tablet morning. Branch atorvastati 2019- No [id number] 40mg Take 1 Univers n 40 mg 1-29 10-19 tablet by ity of tablet 00:00: 00:00 mouth at [place] 00 :00 bedtime. Medical Branch traMADol 2019- No [id number] 50mg Take 1 U nivers (ULTRAM) 50 04-24 08-02 tablet by it y of mg tablet 00:00: 00:00 mouth [place] 00 :00 every 6 Medical (six) Branch hours as needed for Pain (scale 4-6) or Pain (scale 7-10). zonisamide 2019- No [id number] 100mg Take 1 Univers 100 mg 1-24 08-10 capsule by ity of capsule 00:00: 00:00 mouth 2 [place] 00 :00 (two) Medical times Branch daily. butalbital- 2019- No [id number] 1{tbl} Take 1 Univers acetaminoph 1-10 10-30 tablet by it y of en-caff 00:00: 00:00 mouth [place] 50-325-40 00 :00 every 6 Medical mg tablet (six) Branch hours as needed (Migraine Headaches) . clonazePAM 2019- No [id number] .5mg Take 1 Univers 0.5 mg 1-10 10-30 tablet by ity of tablet 00:00: 00:00 mouth 3 [place] 00 :00 (three) Medical times Branch daily. 2019- No [id number] 1{tbl} Take 1 Univers vitamin 8 08-02 tablet by ity of w/FA tablet 00:00: 00:00 [place] 00 :00 daily. [facility] Branch Immunizations Ordered Filled Immunization Date Status Comments [facility] Immunization Name Name Influenza Virus 2022-01-27 [...] Universit y of Vaccine [facility], 00:00:00 [place] [facility] Preserv and ABX Branch Free [...] Universit y of Vaccine [facility] IM, 00:00:00 [place] [facility] Preserv and ABX Branch Free 6 MO-64 YRS TDAP 2021-02-07 Completed University of 00:00:[address] [facility] [place] Influenza Virus 2021-02-07 Completed Universit y of Vaccine Quad IM, 00:00:00 [place] [facility] dical Preserv and ABX Branch Free 6 MO-64 YRS TDAP 2021-02-07 Completed University of 00:00:[address] [facility] [place] Influenza Virus 2021-02-07 Completed Universit y of Vaccine Quad IM, 00:00:00 [place] [facility] dical Preserv and ABX Branch Free 6 MO-64 YRS TDAP 2021-02-07 Completed University of 00:00:[address] [facility] [place] Influenza Virus 2021-02-07 Completed Universit y of Vaccine Quad IM, 00:00:00 [place] [facility] dical Preserv and ABX Branch Free 6 MO-64 YRS TDAP 2021-02-07 Completed University of 00:00:[address] [facility] [place] Influenza Virus 2021-02-07 Completed Universit y of Vaccine Quad IM, 00:00:00 [place] [facility] dical Preserv and ABX Branch Free 6 MO-64 YRS TDAP 2021-02-07 Completed University of 00:00:[address] [facility] [place] Influenza Virus 2021-02-07 Completed Universit y of Vaccine Quad IM, 00:00:00 [place] [facility] dical Preserv and ABX Branch Free 6 MO-64 YRS TDAP 2021-02-07 Completed University of 00:00:[address] [facility] [place] Influenza Virus 2021-02-07 Completed Universit y of Vaccine Quad IM, 00:00:00 [place] [facility] dical Preserv and ABX Branch Free 6 MO-64 YRS TDAP 2021-02-07 Completed University of 00:00:[address] [facility] [place] Influenza Virus 2021-02-07 Completed Universit y of Vaccine Quad IM, 00:00:00 [place] [facility] dical Preserv and ABX Branch Free 6 MO-64 YRS TDAP 2021-02-07 Completed University of 00:00:[address] [facility] [place] Influenza Virus 2021-02-07 Completed Universit y of Vaccine Quad IM, 00:00:00 [place] Me dical Preserv and ABX Branch Free 6 MO-64 YRS TDAP 2021-02-07 Completed University of 00:00:[address] [facility] [place] Influenza Virus 2021-02-07 Completed Universit y of Vaccine Quad IM, 00:00:00 [place] [facility] dical Preserv and ABX Branch Free 6 MO-64 YRS TDAP 2021-02-07 Completed University of 00:00:[address] [facility] [place] Influenza Virus 2021-02-07 Completed Universit y of Vaccine Quad IM, 00:00:00 [place] [facility] dical Preserv and ABX Branch Free 6 MO-64 YRS TDAP 2021-02-07 Completed University of 00:00:[address] [facility] [place] Influenza Virus 2021-02-07 Completed Universit y of Vaccine Quad IM, 00:00:00 [place] [facility] dical Preserv and ABX Branch Free 6 MO-64 YRS TDAP 2021-02-07 Completed University of 00:00:[address] [facility] [place] Influenza Virus 2021-02-07 Completed Universit y of Vaccine Quad IM, 00:00:00 [place] [facility] dical Preserv and ABX Branch Free 6 MO-64 YRS TDAP 2021-02-07 Completed University of 00:00:[address] [facility] [place] Influenza Virus 2021-02-07 Completed Universit y of Vaccine Quad IM, 00:00:00 [place] [facility] dical Preserv and ABX Branch Free 6 MO-64 YRS TDAP 2021-02-07 Completed University of 00:00:[address] [facility] [place] Influenza Virus 2021-02-07 Completed Universit y of Vaccine Quad IM, 00:00:00 [place] Me dical Preserv and ABX Branch Free 6 MO-64 YRS TDAP 2021-02-07 Completed University of 00:00:[address] [facility] [place] Influenza Virus 2021-02-07 Completed Universit y of Vaccine Quad IM, 00:00:00 [place] Me dical Preserv and ABX Branch Free 6 MO-64 YRS TDAP 2021-02-07 Completed University of 00:00:[address] [facility] [place] Influenza Virus 2021-02-07 Completed Universit y of Vaccine Quad IM, 00:00:00 [place] Me dical Preserv and ABX Branch Free 6 MO-64 YRS TDAP 2021-02-07 Completed University of 00:00:[address] [facility] [place] Influenza Virus 2021-02-07 Completed Universit y of Vaccine Quad IM, 00:00:00 [place] Me dical Preserv and ABX Branch Free 6 MO-64 YRS TDAP 2021-02-07 Completed University of 00:00:[address] [facility] [place] Influenza Virus 2021-02-07 Completed Universit y of Vaccine Quad IM, 00:00:00 [place] Me dical Preserv and ABX Branch Free 6 MO-64 YRS TDAP 2021-02-07 Completed University of 00:00:[address] [facility] [place] Influenza Virus 2021-02-07 Completed Universit y of Vaccine Quad IM, 00:00:00 [place] Me dical Preserv and ABX Branch Free 6 MO-64 YRS TDAP 2021-02-07 Completed University of 00:00:[address] [facility] [place] Influenza Virus 2021-02-07 Completed Universit y of Vaccine Quad IM, 00:00:00 [place] Me dical Preserv and ABX Branch Free 6 MO-64 YRS TDAP 2021-02-07 Completed University of 00:00:[address] [facility] [place] Influenza Virus 2021-02-07 Completed Universit y of Vaccine Quad IM, 00:00:00 [place] Me dical Preserv and ABX Branch Free 6 MO-64 YRS TDAP 2021-02-07 Completed University of 00:00:[address] [facility] [place] Influenza Virus 2021-02-07 Completed Universit y of Vaccine Quad IM, 00:00:00 [place] Me dical Preserv and ABX Branch Free 6 MO-64 YRS TDAP 2021-02-07 Completed University of 00:00:[address] [facility] [place] Influenza Virus 2021-02-07 Completed Universit y of Vaccine Quad IM, 00:00:00 [place] Me dical Preserv and ABX Branch Free 6 MO-64 YRS TDAP 2021-02-07 Completed University of 00:00:[address] [facility] [place] Influenza Virus 2021-02-07 Completed Universit y of Vaccine Quad IM, 00:00:00 [place] Me dical Preserv and ABX Branch Free 6 MO-64 YRS TDAP 2021-02-07 Completed University of 00:00:[address] [facility] [place] Influenza Virus 2021-02-07 Completed Universit y of Vaccine Quad IM, 00:00:00 [place] Me dical Preserv and ABX Branch Free 6 MO-64 YRS TDAP 2021-02-07 Completed University of 00:00:[address] [facility] [place] Influenza Virus 2021-02-07 Completed Universit y of Vaccine Quad IM, 00:00:00 [place] Me dical Preserv and ABX Branch Free 6 MO-64 YRS TDAP 2021-02-07 Completed University of 00:00:[address] [facility] [place] Influenza Virus 2021-02-07 Completed Universit y of Vaccine Quad IM, 00:00:00 [place] Me dical Preserv and ABX Branch Free 6 MO-64 YRS TDAP 2021-02-07 Completed University of 00:00:[address] [facility] [place] Influenza Virus 2021-02-07 Completed Universit y of Vaccine Quad IM, 00:00:00 [place] Me dical Preserv and ABX Branch Free 6 MO-64 YRS TDAP 2021-02-07 Completed University of 00:00:[address] [facility] [place] Influenza Virus 2021-02-07 Completed Universit y of Vaccine Quad IM, 00:00:00 [place] Me dical Preserv and ABX Branch Free 6 MO-64 YRS TDAP 2021-02-07 Completed University of 00:00:[address] [facility] [place] Influenza Virus 2021-02-07 Completed Universit y of Vaccine Quad IM, 00:00:00 [place] Me dical Preserv and ABX Branch Free 6 MO-64 YRS TDAP 2021-02-07 Completed University of 00:00:[address] [facility] [place] Influenza Virus 2021-02-07 Completed Universit y of Vaccine Quad IM, 00:00:00 [facility] dical Preserv and ABX Branch Free 6 MO-64 YRS TDAP 2021-02-07 Completed University of 00:00:[address] [facility] [place] Influenza Virus 2021-02-07 Completed Universit y of Vaccine Quad IM, 00:00:00 [place] Me dical Preserv and ABX Branch Free 6 MO-64 YRS TDAP 2021-02-07 Completed University of 00:00:[address] [facility] [place] Influenza Virus 2021-02-07 Completed Universit y of Vaccine Quad IM, 00:00:00 [place] Me dical Preserv and ABX Branch Free 6 MO-64 YRS TDAP 2021-02-07 Completed University of 00:00:[address] [facility] [place] Influenza Virus 2021-02-07 Completed Universit y of Vaccine Quad IM, 00:00:00 [place] Me dical Preserv and ABX Branch Free 6 MO-64 YRS TDAP 2021-02-07 Completed University of 00:00:[address] [facility] [place] Influenza Virus 2021-02-07 Completed Universit y of Vaccine Quad IM, 00:00:00 [place] Me dical Preserv and ABX Branch Free 6 MO-64 YRS TDAP 2021-02-07 Completed University of 00:00:[address] [facility] [place] Influenza Virus 2021-02-07 Completed Universit y of Vaccine Quad IM, 00:00:00 [facility] dical Preserv and ABX Branch Free 6 MO-64 YRS TDAP 2021-02-07 Completed University of 00:00:[address] [facility] [place] Influenza Virus 2021-02-07 Completed Universit y of Vaccine Quad IM, 00:00:00 [facility] dical Preserv and ABX Branch Free 6 MO-64 YRS TDAP 2021-02-07 Completed University of 00:00:[address] [facility] [place] Influenza Virus 2021-02-07 Completed Universit y of Vaccine Quad IM, 00:00:00 [facility] dical Preserv and ABX Branch Free 6 MO-64 YRS TDAP 2021-02-07 Completed University of 00:00:[address] [facility] [place] Influenza Virus 2021-02-07 Completed Universit y of Vaccine Quad IM, 00:00:00 [facility] dical Preserv and ABX Branch Free 6 MO-64 YRS TDAP 2021-02-07 Completed University of 00:00:[address] [facility] [place] Influenza Virus 2021-02-07 Completed Universit y of Vaccine Quad IM, 00:00:00 [facility] dical Preserv and ABX Branch Free 6 MO-64 YRS TDAP 2021-02-07 Completed University of 00:00:[address] [facility] [place] Influenza Virus 2021-02-07 Completed Universit y of Vaccine Quad IM, 00:00:00 [facility] dical Preserv and ABX Branch Free 6 MO-64 YRS TDAP 2021-02-07 Completed University of 00:00:[address] [facility] [place] Influenza Virus 2021-02-07 Completed Universit y of Vaccine Quad IM, 00:00:00 [place] Me dical Preserv and ABX Branch Free 6 MO-64 YRS TDAP 2021-02-07 Completed University of 00:00:[address] [facility] [place] Influenza Virus 2021-02-07 Completed Universit y of Vaccine Quad IM, 00:00:00 [place] Me dical Preserv and ABX Branch Free 6 MO-64 YRS TDAP 2021-02-07 Completed University of 00:00:[address] [facility] [place] Influenza Virus 2021-02-07 Completed Universit y of Vaccine Quad IM, 00:00:00 [place] Me dical Preserv and ABX Branch Free 6 MO-64 YRS TDAP 2021-02-07 Completed University of 00:00:[address] [facility] [place] Influenza Virus 2021-02-07 Completed Universit y of Vaccine Quad IM, 00:00:00 [place] Me dical Preserv and ABX Branch Free 6 MO-64 YRS TDAP 2021-02-07 Completed University of 00:00:[address] [facility] [place] Influenza Virus 2021-02-07 Completed Universit y of Vaccine Quad IM, 00:00:00 [place] Me dical Preserv and ABX Branch Free 6 MO-64 YRS TDAP 2021-02-07 Completed University of 00:00:[address] [facility] [place] Influenza Virus 2021-02-07 Completed Universit y of Vaccine Quad IM, 00:00:00 [place] Me dical Preserv and ABX Branch Free 6 MO-64 YRS TDAP 2021-02-07 Completed University of 00:00:[address] [facility] [place] Influenza Virus 2021-02-07 Completed Universit y of Vaccine Quad IM, 00:00:00 [place] Me dical Preserv and ABX Branch Free 6 MO-64 YRS TDAP 2021-02-07 Completed University of 00:00:[address] [facility] [place] Influenza Virus 2021-02-07 Completed Universit y of Vaccine Quad IM, 00:00:00 [place] Me dical Preserv and ABX Branch Free 6 MO-64 YRS TDAP 2021-02-07 Completed University of 00:00:[address] [facility] [place] Influenza Virus 2021-02-07 Completed Universit y of Vaccine Quad IM, 00:00:00 [place] Me dical Preserv and ABX Branch Free 6 MO-64 YRS TDAP 2021-02-07 Completed University of 00:00:[address] [facility] [place] Influenza Virus 2021-02-07 Completed Universit y of Vaccine Quad IM, 00:00:00 [place] Me dical Preserv and ABX Branch Free 6 MO-64 YRS TDAP 2021-02-07 Completed University of 00:00:[address] [facility] [place] Influenza Virus 2021-02-07 Completed Universit y of Vaccine Quad IM, 00:00:00 [place] Me dical Preserv and ABX Branch Free 6 MO-64 YRS TDAP 2021-02-07 Completed University of 00:00:[address] [facility] [place] Influenza Virus 2021-02-07 Completed Universit y of Vaccine Quad IM, 00:00:00 [place] Me dical Preserv and ABX Branch Free 6 MO-64 YRS TDAP 2021-02-07 Completed University of 00:00:[address] [facility] [place] Influenza Virus 2021-02-07 Completed Universit y of Vaccine Quad IM, 00:00:00 [place] Me dical Preserv and ABX Branch Free 6 MO-64 YRS TDAP 2021-02-07 Completed University of 00:00:[address] [facility] [place] Influenza Virus 2021-02-07 Completed Universit y of Vaccine Quad IM, 00:00:00 [place] Me dical Preserv and ABX Branch Free 6 MO-64 YRS TDAP 2021-02-07 Completed University of 00:00:[address] [facility] [place] Influenza Virus 2021-02-07 Completed Universit y of Vaccine Quad IM, 00:00:00 [place] Me dical Preserv and ABX Branch Free 6 MO-64 YRS TDAP 2021-02-07 Completed University of 00:00:[address] [facility] [place] Influenza Virus 2021-02-07 Completed Universit y of Vaccine Quad IM, 00:00:00 [place] Me dical Preserv and ABX Branch Free 6 MO-64 YRS TDAP 2021-02-07 Completed University of 00:00:[address] [facility] [place] Influenza Virus 2021-02-07 Completed Universit y of Vaccine Quad IM, 00:00:00 [place] [facility] dical Preserv and ABX Branch Free 6 MO-64 YRS TDAP 2021-02-07 Completed University of 00:00:[address] [facility] [place] Influenza Virus 2021-02-07 Completed Universit y of Vaccine Quad IM, 00:00:00 [place] [facility] dical Preserv and ABX Branch Free 6 MO-64 YRS TDAP 2021-02-07 Completed University of 00:00:[address] [facility] [place] Influenza Virus 2021-02-07 Completed Universit y of Vaccine Quad IM, 00:00:00 [place] Me dical Preserv and ABX Branch Free 6 MO-64 YRS TDAP 2021-02-07 Completed University of 00:00:[address] [facility] [place] Influenza Virus 2021-02-07 Completed Universit y of Vaccine Quad IM, 00:00:00 [place] Me dical Preserv and ABX Branch Free 6 MO-64 YRS TDAP 2021-02-07 Completed University of 00:00:[address] [facility] [place] Influenza Virus 2021-02-07 Completed Universit y of Vaccine Quad IM, 00:00:00 [place] [facility] dical Preserv and ABX Branch Free 6 MO-64 YRS TDAP 2021-02-07 Completed University of 00:00:[address] [facility] [place] Influenza Virus 2021-02-07 Completed Universit y of Vaccine Quad IM, 00:00:00 [facility] dical Preserv and ABX Branch Free 6 MO-64 YRS TDAP 2021-02-07 Completed University of 00:00:[address] [facility] [place] Influenza Virus 2021-02-07 Completed Universit y of Vaccine Quad IM, 00:00:00 [facility] dical Preserv and ABX Branch Free 6 MO-64 YRS TDAP 2021-02-07 Completed University of 00:00:[address] [facility] [place] Influenza Virus 2021-02-07 Completed Universit y of Vaccine Quad IM, 00:00:00 [place] Me dical Preserv and ABX Branch Free 6 MO-64 YRS TDAP 2021-02-07 Completed [facility] 00:00:[address] [facility] [place] Influenza Virus 2021-02-07 Completed [facility] IM, 00:00:00 [facility] dical Preserv and ABX Branch Free 6 MO-64 YRS TDAP 2021-02-07 Completed [facility] of 00:00:[address] [facility] [place], [place] Influenza Virus 2021-02-07 Completed [facility] IM, 00:00:00 [facility] dical Preserv and ABX Branch Free 6 MO-64 YRS TDAP 2021-02-07 Completed [facility] of 00:00:[address] [facility] [place], [place] Influenza Virus 2021-02-07 Completed [facility], 00:00:00 [place] [facility] dical Preserv and ABX Branch Free 6 MO-64 YRS TDAP 2021-02-07 Completed [facility] of 00:00:[address] [facility] [place] Influenza Virus 2021-02-07 Completed [facility], 00:00:00 [place] [facility] dical Preserv and ABX Branch Free 6 MO-64 YRS TDAP 2021-02-07 Completed [facility] of 00:00:[address] [facility] [place], [place] Influenza Virus 2021-02-07 Completed [facility], 00:00:00 [place] [facility] dical Preserv and ABX Branch Free 6 MO-64 YRS TDAP 2021-02-07 Completed [facility] of 00:00:[address] [facility] [place] Influenza Virus 2021-02-07 Completed [facility] IM, 00:00:00 [place] [facility] dical Preserv and ABX Branch Free 6 MO-64 YRS TDAP 2021-02-07 Completed [facility] of 00:00:[address] [facility] [place] Influenza Virus 2021-02-07 Completed [facility], 00:00:00 [place] [facility] dical Preserv and ABX Branch Free 6 MO-64 YRS TDAP 2021-02-07 Completed [facility] of 00:00:[address] [facility] [place] Influenza Virus 2021-02-07 Completed [facility], 00:00:00 [place] [facility] dical Preserv and ABX Branch Free 6 MO-64 YRS TDAP 2021-02-07 Completed [facility] 00:00:[address] [facility] [place] Influenza Virus 2021-02-07 Completed [facility] IM, 00:00:00 [place] [facility] dical Preserv and ABX Branch Free 6 MO-64 YRS TDAP 2021-02-07 Completed [facility] of 00:00:[address] [facility] [place] Influenza Virus 2021-02-07 Completed [facility] IM, 00:00:00 [place] [facility] dical Preserv and ABX Branch Free 6 MO-64 YRS TDAP 2021-02-07 Completed [facility] of 00:00:[address] [facility] [place] Influenza Virus 2021-02-07 Completed [facility] IM, 00:00:00 [place] [facility] dical Preserv and ABX Branch Free 6 MO-64 YRS TDAP 2021-02-07 Completed [facility] 00:00:[address] [facility] [place] Influenza Virus 2021-02-07 Completed [facility] IM, 00:00:00 [place] [facility] dical Preserv and ABX Branch Free 6 MO-64 YRS TDAP 2021-02-07 Completed [facility] of 00:00:[address] [facility] [place] Influenza Virus 2021-02-07 Completed [facility], 00:00:00 [place] [facility] dical Preserv and ABX Branch Free 6 MO-64 YRS TDAP 2021-02-07 Completed [facility] of 00:00:[address] [facility] [place] Influenza Virus 2021-02-07 Completed [facility], 00:00:00 [place] [facility] dical Preserv and ABX Branch Free 6 MO-64 YRS TDAP 2021-02-07 Completed [facility] of 00:00:[address] [facility] [place] Influenza Virus 2021-02-07 Completed [facility] IM, 00:00:00 [place] [facility] dical Preserv and ABX Branch Free 6 MO-64 YRS TDAP 2021-02-07 Completed [facility] of 00:00:[address] [facility] [place] Influenza Virus 2021-02-07 Completed [facility], 00:00:00 [place] [facility] dical Preserv and ABX Branch Free 6 MO-64 YRS TDAP 2021-02-07 Completed [facility] of 00:00:[address] [facility] [place] Influenza Virus 2021-02-07 Completed [facility] IM, 00:00:00 [place] [facility] dical Preserv and ABX Branch Free 6 MO-64 YRS TDAP 2021-02-07 Completed [facility] of 00:00:[address] [facility] [place] Influenza Virus 2021-02-07 Completed [facility], 00:00:00 [place] [facility] dical Preserv and ABX Branch Free 6 MO-64 YRS TDAP 2021-02-07 Completed [facility] of 00:00:[address] [facility] [place] Influenza Virus 2021-02-07 Completed [facility] IM, 00:00:00 [place] [facility] dical Preserv and ABX Branch Free 6 MO-64 YRS TDAP 2021-02-07 Completed [facility] of 00:00:[address] [facility] [place] Influenza Virus 2021-02-07 Completed [facility] IM, 00:00:00 [place] [facility] dical Preserv and ABX Branch Free 6 MO-64 YRS TDAP 2021-02-07 Completed [facility] of 00:00:[address] [facility] [place] Influenza Virus 2021-02-07 Completed [facility] IM, 00:00:00 [place] [facility] dical Preserv and ABX Branch Free 6 MO-64 YRS TDAP 2021-02-07 Completed [facility] of 00:00:[address] [facility] [place] Influenza Virus 2021-02-07 Completed [facility], 00:00:00 [place] [facility] dical Preserv and ABX Branch Free 6 MO-64 YRS TDAP 2021-02-07 Completed [facility] of 00:00:[address] [facility] [place] Influenza Virus 2021-02-07 Completed [facility] IM, 00:00:00 [place] [facility] dical Preserv and ABX Branch Free 6 MO-64 YRS TDAP 2021-02-07 Completed [facility] of 00:00:[address] [facility] [place] Influenza Virus 2021-02-07 Completed [facility] IM, 00:00:00 [place] [facility] dical Preserv and ABX Branch Free 6 MO-64 YRS TDAP 2021-02-07 Completed [facility] of 00:00:[address] [facility] [place] Influenza Virus 2021-02-07 Completed [facility] IM, 00:00:00 [place] [facility] dical Preserv and ABX Branch Free 6 MO-64 YRS TDAP 2021-02-07 Completed [facility] of 00:00:[address] [facility] [place] Influenza Virus 2021-02-07 Completed [facility] IM, 00:00:00 [place] [facility] dical Preserv and ABX Branch Free 6 MO-64 YRS TDAP 2021-02-07 Completed [facility] of 00:00:[address] [facility] [place] Influenza Virus 2021-02-07 Completed [facility] IM, 00:00:00 [place] [facility] dical Preserv and ABX Branch Free 6 MO-64 YRS TDAP 2021-02-07 Completed [facility] of 00:00:[address] [facility] [place] Influenza Virus 2021-02-07 Completed [facility] IM, 00:00:00 [place] [facility] dical Preserv and ABX Branch Free 6 MO-64 YRS TDAP 2021-02-07 Completed [facility] of 00:00:[address] [facility] [place] Influenza Virus 2021-02-07 Completed [facility] IM, 00:00:00 [place] [facility] dical Preserv and ABX Branch Free 6 MO-64 YRS TDAP 2021-02-07 Completed [facility] of 00:00:[address] [facility] [place] Influenza Virus 2021-02-07 Completed [facility] IM, 00:00:00 [place] [facility] dical Preserv and ABX Branch Free 6 MO-64 YRS TDAP 2021-02-07 Completed [facility] of 00:00:[address] [facility] [place] Influenza Virus 2021-02-07 Completed [facility] IM, 00:00:00 [place] [facility] dical Preserv and ABX Branch Free 6 MO-64 YRS TDAP 2021-02-07 Completed [facility] of 00:00:[address] [facility] [place] Influenza Virus 2021-02-07 Completed [facility] of Vaccine Quad IM, 00:00:00 [facility] dical Preserv and ABX Branch Free 6 MO-64 YRS TDAP 2021-02-07 Completed [facility] of 00:00:[address] [facility] [place] Influenza Virus 2021-02-07 Completed [facility] of Vaccine Quad IM, 00:00:00 [facility] dical Preserv and ABX Branch Free 6 MO-64 YRS TDAP 2021-02-07 Completed [facility] of 00:00:[address] [facility] [place] Influenza Virus 2021-02-07 Completed [facility] of [facility] IM, 00:00:00 [facility] dical Preserv and ABX Branch Free 6 MO-64 YRS TDAP 2021-02-07 Completed [facility] of 00:00:[address] [facility] [place] Influenza Virus 2021-02-07 Completed [facility] of Vaccine [facility] IM, 00:00:00 [facility] dical Preserv and ABX Branch Free 6 MO-64 YRS TDAP 2021-02-07 Completed [facility] of 00:00:[address] [facility] [place] Influenza Virus 2021-02-07 Completed [facility] of Vaccine Quad IM, 00:00:00 [facility] dical Preserv and ABX Branch Free 6 MO-64 YRS TDAP 2021-02-07 Completed [facility] of 00:00:[address] [facility] [place] Influenza Virus 2021-02-07 Completed [facility] of Vaccine Quad IM, 00:00:00 [facility] dical Preserv and ABX Branch Free 6 MO-64 YRS TDAP 2021-02-07 Completed [facility] of 00:00:[address] [facility] [place] Influenza Virus 2021-02-07 Completed [facility] of Vaccine Quad IM, 00:00:00 [facility] dical Preserv and ABX Branch Free 6 MO-64 YRS TDAP 2021-02-07 Completed [facility] of 00:00:[address] [facility] [place] Influenza Virus 2021-02-07 Completed [facility] IM, 00:00:00 [place] [facility] dical Preserv and ABX Branch Free 6 MO-64 YRS TDAP 2021-02-07 Completed [facility] of 00:00:[address] [facility] [place] Influenza Virus 2021-02-07 Completed [facility] of Vaccine [facility] IM, 00:00:00 [place] [facility] dical Preserv and ABX Branch Free 6 MO-64 YRS TDAP 2021-02-07 Completed [facility] of 00:00:[address] [facility] [place] Influenza Virus 2021-02-07 Completed [facility] y of Vaccine Quad IM, 00:00:00 [facility] dical Preserv and ABX Branch Free 6 MO-64 YRS TDAP 2021-02-07 Completed [facility] of 00:00:[address] [facility] [place] Influenza Virus 2021-02-07 Completed [facility] y of Vaccine Quad IM, 00:00:00 [facility] dical Preserv and ABX Branch Free 6 MO-64 YRS TDAP 2021-02-07 Completed [facility] of 00:00:[address] [facility] [place] Influenza Virus 2021-02-07 Completed [facility] y of Vaccine Quad IM, 00:00:00 [facility] dical Preserv and ABX Branch Free 6 MO-64 YRS TDAP 2021-02-07 Completed [facility] of 00:00:[address] [facility] [place] Influenza Virus 2021-02-07 Completed [facility] y of Vaccine Quad IM, 00:00:00 [facility] dical Preserv and ABX Branch Free 6 MO-64 YRS TDAP 2021-02-07 Completed [facility] of 00:00:[address] [facility] [place] Influenza Virus 2021-02-07 Completed [facility] of Vaccine Quad IM, 00:00:00 [facility] dical Preserv and ABX Branch Free 6 MO-64 YRS TDAP 2021-02-07 Completed [facility] of 00:00:[address] [facility] [place] Influenza Virus 2021-02-07 Completed [facility] y of Vaccine Quad IM, 00:00:00 [facility] dical Preserv and ABX Branch Free 6 MO-64 YRS TDAP 2021-02-07 Completed [facility] of 00:00:[address] [facility] [place] Influenza Virus 2020-01-25 Completed [facility] of Vaccine Quad .5 mL 00:00:00 [facility] 6+ MO Branch Influenza Virus 2020-01-25 Completed [facility] of Vaccine Quad .5 mL 00:00:00 [facility] 6+ MO Branch Influenza Virus [...] y of Vaccine Quad .5 mL 00:00:00 [facility] 6+ MO Branch Influenza Virus 2018-12-23 Completed [facility] Vaccine Quad .5 mL 00:00:00 [place] [facility] 6+ MO Branch Influenza Virus 2018-12-23 Completed [facility] Vaccine Quad .5 mL 00:00:00 [facility] 6+ MO Branch Influenza Virus 2018-12-23 Completed [facility] Vaccine Quad .5 mL 00:00:00 [facility] 6+ MO Branch Influenza Virus 2018-12-23 Completed [facility] Vaccine Quad .5 mL 00:00:00 [facility] 6+ MO Branch Influenza Virus 2018-12-23 Completed [facility] y of Vaccine Quad .5 mL 00:00:00 [facility] 6+ MO Branch Influenza Virus 2018-12-23 Completed [facility] y of Vaccine Quad .5 mL 00:00:00 [facility] 6+ MO Branch Influenza Virus 2018-12-23 Completed [facility] of Vaccine Quad .5 mL 00:00:00 [facility] 6+ MO Branch Influenza Virus 2018-12-23 Completed [facility] of Vaccine Quad .5 mL 00:00:00 [facility] 6+ MO Branch Influenza Virus 2018-12-23 Completed [facility] of Vaccine Quad .5 mL 00:00:00 [facility] 6+ MO Branch Influenza Virus 2018-12-23 Completed [facility] of Vaccine Quad .5 mL 00:00:00 [facility] 6+ MO Branch Influenza Virus 2018-12-23 Completed [facility] of Vaccine Quad .5 mL 00:00:00 [facility] 6+ MO Branch Influenza Virus 2018-12-23 [...] y of Vaccine Quad .5 mL 00:00:00 [facility] 6+ MO Branch Influenza Virus [...] y of Vaccine Quad .5 mL 00:00:00 [place] [facility] 6+ MO Branch Influenza Virus 2018-12-23 [...] y of Vaccine Quad .5 mL 00:00:00 [facility] 6+ MO Branch Influenza Virus 2018-12-23 Completed [facility] of Vaccine Quad .5 mL 00:00:00 [place] [facility] 6+ MO Branch Influenza Virus 2018-12-23 Completed [facility] y of Vaccine Quad .5 mL 00:00:00 [facility] 6+ MO Branch Influenza Virus 2018-12-23 Completed [facility] y of Vaccine Quad .5 mL 00:00:00 [facility] 6+ MO Branch Influenza Virus 2018-12-23 Completed [facility] y of Vaccine Quad .5 mL 00:00:00 [facility] 6+ MO Branch Influenza Virus 2018-12-23 Completed [facility] of Vaccine Quad .5 mL 00:00:00 [facility] 6+ MO Branch Influenza Virus 2018-12-23 Completed [facility] of Vaccine Quad .5 mL 00:00:00 [facility] 6+ MO Branch Influenza Virus 2018-12-23 Completed [facility] of Vaccine Quad .5 mL 00:00:00 [facility] 6+ MO Branch Influenza Virus 2018-12-23 Completed [facility] of Vaccine Quad .5 mL 00:00:00 [facility] 6+ MO Branch Influenza Virus 2018-12-23 Completed [facility] y of Vaccine Quad .5 mL 00:00:00 [facility] 6+ MO Branch Influenza Virus 2018-12-23 Completed [facility] of Vaccine Quad .5 mL 00:00:00 [place] [facility] 6+ MO Branch Influenza Virus 2018-12-23 Completed [facility] y of Vaccine Quad .5 mL 00:00:00 [place] [facility] 6+ MO Branch Influenza Virus 2018-12-23 Completed [facility] of Vaccine Quad .5 mL 00:00:00 [facility] 6+ MO Branch Influenza Virus 2018-12-23 Completed [facility] y of Vaccine Quad .5 mL 00:00:00 [facility] 6+ MO Branch Influenza Virus 2018-12-23 Completed [facility] of Vaccine Quad .5 mL 00:00:00 [facility] 6+ MO Branch Influenza Virus 2018-12-23 Completed [facility] of Vaccine Quad .5 mL 00:00:00 [place] [facility] 6+ MO Branch Influenza Virus 2018-12-23 Completed [facility] of Vaccine Quad .5 mL 00:00:00 [place] [facility] 6+ MO Branch Influenza Virus 2018-12-23 Completed [facility] y of Vaccine Quad .5 mL 00:00:00 [facility] 6+ MO Branch Influenza Virus 2018-12-23 Completed [facility] y of Vaccine Quad .5 mL 00:00:00 [place] [facility] 6+ MO Branch Influenza Virus 2018-12-23 Completed [facility] y of Vaccine Quad .5 mL 00:00:00 [facility] 6+ MO Branch Influenza Virus 2018-12-23 Completed [facility] y of Vaccine Quad .5 mL 00:00:00 [place] [facility] 6+ MO Branch Influenza Virus 2018-12-23 Completed [facility] y of Vaccine Quad .5 mL 00:00:00 [place] [facility] 6+ MO Branch Influenza Virus 2018-12-23 Completed [facility] of Vaccine Quad .5 mL 00:00:00 [place] [facility] 6+ MO Branch Influenza Virus 2018-12-23 Completed [facility] of Vaccine Quad .5 mL 00:00:00 [place] [facility] 6+ MO Branch Influenza Virus 2018-12-23 Completed [facility] of Vaccine Quad .5 mL 00:00:00 [facility] 6+ MO Branch Influenza Virus 2018-12-23 Completed [facility] of Vaccine Quad .5 mL 00:00:00 [facility] 6+ MO Branch Influenza Virus 2018-12-23 Completed [facility] y of Vaccine Quad .5 mL 00:00:00 [facility] 6+ MO Branch Influenza Virus 2018-12-23 Completed [facility] of Vaccine Quad .5 mL 00:00:00 [place] [facility] 6+ MO Branch Influenza Virus 2018-12-23 Completed [facility] y of Vaccine Quad .5 mL 00:00:00 [facility] 6+ MO Branch Influenza Virus 2018-12-23 Completed [facility] of Vaccine Quad .5 mL 00:00:00 [place] [facility] 6+ MO Branch Influenza Virus 2018-12-23 Completed [facility] of Vaccine Quad .5 mL 00:00:00 [facility] 6+ MO Branch Influenza Virus 2018-12-23 Completed [facility] of [facility] Quad .5 mL 00:00:00 [facility] 6+ MO Branch Influenza Virus 2018-12-23 Completed [facility] Vaccine Quad .5 mL 00:00:00 [facility] 6+ MO Branch Influenza Virus [...] y of Vaccine Quad .5 mL 00:00:00 [facility] 6+ MO Branch Influenza Virus 2018-12-23 Completed [facility]ine Quad .5 mL 00:00:00 [facility] 6+ MO Branch Influenza Virus 2018-12-23 Completed [facility] of Vaccine Quad .5 mL 00:00:00 [facility] 6+ MO Branch Influenza Virus 2018-12-23 Completed [facility] of Vaccine Quad .5 mL 00:00:00 [facility] 6+ MO Branch Influenza Virus 2018-12-23 Completed [facility] of [facility]ine Quad .5 mL 00:00:00 [facility] 6+ MO Branch Influenza Virus 2018-12-23 Completed [facility] of Vaccine Quad .5 mL 00:00:00 [facility] 6+ MO Branch Influenza Virus 2018-12-23 Completed [facility] of Vaccine Quad .5 mL 00:00:00 [place] [facility] 6+ MO Branch Influenza Virus 2018-12-23 Completed [facility] y of Vaccine Quad .5 mL 00:00:00 [facility] 6+ MO Branch Influenza Virus 2018-12-23 Completed [facility] y of Vaccine Quad .5 mL 00:00:00 [place] [facility] 6+ MO Branch Influenza Virus 2018-12-23 Completed [facility] y of Vaccine Quad .5 mL 00:00:00 [facility] 6+ MO Branch Influenza Virus 2018-12-23 Completed [facility] y of Vaccine Quad .5 mL 00:00:00 [facility] 6+ MO Branch Influenza Virus 2018-12-23 Completed [facility] of Vaccine Quad .5 mL 00:00:00 [facility] 6+ MO Branch Influenza Virus [...] y of Vaccine Quad .5 mL 00:00:00 [facility] 6+ MO Branch Influenza Virus 2018-12-23 Completed [facility] Vaccine Quad .5 mL 00:00:00 [facility] 6+ MO Branch Influenza Virus 2018-12-23 Completed [facility] of Vaccine Quad .5 mL 00:00:00 [facility] 6+ MO Branch Influenza Virus 2018-12-23 Completed [facility] of Vaccine Quad .5 mL 00:00:00 [place] [facility] 6+ MO Branch Influenza Virus 2018-12-23 Completed [facility] of Vaccine Quad .5 mL 00:00:00 [facility] 6+ MO Branch Influenza Virus 2018-12-23 Completed [facility] of Vaccine Quad .5 mL 00:00:00 [facility] 6+ MO Branch Influenza Virus 2018-12-23 Completed [facility] of Vaccine Quad .5 mL 00:00:00 [facility] 6+ MO Branch Influenza Virus 2018-12-23 Completed [facility] Vaccine Quad .5 mL 00:00:00 [facility] 6+ MO Branch Influenza Virus 2018-12-23 Completed [facility] Vaccine Quad .5 mL 00:00:00 [place] [facility] 6+ MO Branch Influenza Virus 2018-12-23 Completed [facility] of Vaccine Quad .5 mL 00:00:00 [facility] 6+ MO Branch Influenza Virus 2018-12-23 Completed [facility] y of Vaccine Quad .5 mL 00:00:00 [facility] 6+ MO Branch TDAP (ADACEL) 2018-09-14 Completed [facility] of VACCINE 00:00:[address] [facility] TDAP (ADACEL) 2018-09-14 Completed [facility] of VACCINE 00:00:00 [facility] TDAP (ADACEL) 2018-09-14 Completed [facility] of VACCINE 00:00:00 [facility] TDAP (ADACEL) 2018-09-14 Completed [facility] of VACCINE 00:00:00 [facility] TDAP (ADACEL) 2018-09-14 Completed [facility] of VACCINE 00:00:00 [facility] TDAP (ADACEL) 2018-09-14 Completed University of VACCINE 00:00:00 [facility] TDAP (ADACEL) 2018-09-14 Completed [facility] of VACCINE 00:00:00 [facility] TDAP (ADACEL) 2018-09-14 Completed [facility] of VACCINE 00:00:00 [facility] TDAP (ADACEL) 2018-09-14 Completed [facility] of VACCINE 00:00:00 [facility] TDAP (ADACEL) 2018-09-14 Completed [facility] of VACCINE 00:00:00 [facility] TDAP (ADACEL) 2018-09-14 Completed [facility] of VACCINE 00:00:00 [facility] TDAP (ADACEL) 2018-09-14 Completed [facility] of VACCINE 00:00:00 [facility] TDAP (ADACEL) 2018-09-14 Completed [facility] of VACCINE 00:00:00 [facility] TDAP (ADACEL) 2018-09-14 Completed [facility] of VACCINE 00:00:00 [facility] TDAP (ADACEL) 2018-09-14 Completed [facility] of VACCINE 00:00:00 [facility] TDAP (ADACEL) 2018-09-14 Completed [facility] of VACCINE 00:00:00 [facility] TDAP (ADACEL) 2018-09-14 Completed [facility] of VACCINE 00:00:00 [facility] TDAP (ADACEL) 2018-09-14 Completed [facility] of VACCINE 00:00:00 [facility] TDAP (ADACEL) 2018-09-14 Completed [facility] of VACCINE 00:00:00 [facility] TDAP (ADACEL) 2018-09-14 Completed [facility] of VACCINE 00:00:00 [facility] TDAP (ADACEL) 2018-09-14 Completed [facility] of VACCINE 00:00:00 [facility] TDAP (ADACEL) 2018-09-14 Completed [facility] of VACCINE 00:00:00 [facility] TDAP (ADACEL) 2018-09-14 Completed [facility] of VACCINE 00:00:00 [facility] TDAP (ADACEL) 2018-09-14 Completed [facility] VACCINE 00:00:00 [facility] TDAP (ADACEL) 2018-09-14 Completed [facility] of VACCINE 00:00:00 [facility] TDAP (ADACEL) 2018-09-14 Completed [facility] of VACCINE 00:00:00 [facility] TDAP (ADACEL) 2018-09-14 Completed [facility] of VACCINE 00:00:00 [facility] TDAP (ADACEL) 2018-09-14 Completed [facility] of VACCINE 00:00:00 [facility] TDAP (ADACEL) 2018-09-14 Completed [facility] of VACCINE 00:00:00 [facility] TDAP (ADACEL) 2018-09-14 Completed [facility] of VACCINE 00:00:00 [facility] TDAP (ADACEL) 2018-09-14 Completed [facility] of VACCINE 00:00:00 [facility] TDAP (ADACEL) 2018-09-14 Completed [facility] of VACCINE 00:00:00 [facility] TDAP (ADACEL) 2018-09-14 Completed [facility] of VACCINE 00:00:00 [facility] TDAP (ADACEL) 2018-09-14 Completed [facility] of VACCINE 00:00:00 [facility] TDAP (ADACEL) 2018-09-14 Completed [facility] of VACCINE 00:00:00 [facility] TDAP (ADACEL) 2018-09-14 Completed [facility] of VACCINE 00:00:00 [facility] TDAP (ADACEL) 2018-09-14 Completed [facility] of VACCINE 00:00:00 [facility] TDAP (ADACEL) 2018-09-14 Completed [facility] of VACCINE 00:00:00 [facility] TDAP (ADACEL) 2018-09-14 Completed [facility] of VACCINE 00:00:00 [facility] TDAP (ADACEL) 2018-09-14 Completed [facility] of VACCINE 00:00:00 [facility] TDAP (ADACEL) 2018-09-14 Completed [facility] of VACCINE 00:00:00 [facility] TDAP (ADACEL) 2018-09-14 Completed [facility] VACCINE 00:00:00 [facility] TDAP (ADACEL) 2018-09-14 Completed [facility] of VACCINE 00:00:00 [facility] TDAP (ADACEL) 2018-09-14 Completed [facility] VACCINE 00:00:00 [facility] TDAP (ADACEL) 2018-09-14 Completed [facility] of VACCINE 00:00:00 [facility] TDAP (ADACEL) 2018-09-14 Completed [facility] of VACCINE 00:00:00 [facility] TDAP (ADACEL) 2018-09-14 Completed [facility] of VACCINE 00:00:00 [facility] TDAP (ADACEL) 2018-09-14 Completed [facility] of VACCINE 00:00:00 [facility] TDAP (ADACEL) 2018-09-14 Completed [facility] of VACCINE 00:00:00 [facility] TDAP (ADACEL) 2018-09-14 Completed [facility] of VACCINE 00:00:00 [facility] TDAP (ADACEL) 2018-09-14 Completed University of VACCINE 00:00:00 [facility] TDAP (ADACEL) 2018-09-14 Completed University of VACCINE 00:00:00 [facility] TDAP (ADACEL) 2018-09-14 Completed University of VACCINE 00:00:00 [facility] TDAP (ADACEL) 2018-09-14 Completed University of VACCINE 00:00:00 [facility] TDAP (ADACEL) 2018-09-14 Completed University of VACCINE 00:00:00 [facility] TDAP (ADACEL) 2018-09-14 Completed University of VACCINE 00:00:00 [facility] TDAP (ADACEL) 2018-09-14 Completed University of VACCINE 00:00:00 [facility] TDAP (ADACEL) 2018-09-14 Completed University of VACCINE 00:00:00 [facility] TDAP (ADACEL) 2018-09-14 Completed University of VACCINE 00:00:00 [facility] TDAP (ADACEL) 2018-09-14 Completed University of VACCINE 00:00:00 [facility] TDAP (ADACEL) 2018-09-14 Completed University of VACCINE 00:00:00 [facility] TDAP (ADACEL) 2018-09-14 Completed University of VACCINE 00:00:00 [facility] TDAP (ADACEL) 2018-09-14 Completed University of VACCINE 00:00:00 [facility] TDAP (ADACEL) 2018-09-14 Completed University of VACCINE 00:00:00 [facility] TDAP (ADACEL) 2018-09-14 Completed University of VACCINE 00:00:00 [facility] TDAP (ADACEL) 2018-09-14 Completed University of VACCINE 00:00:00 [facility] TDAP (ADACEL) 2018-09-14 Completed University of VACCINE 00:00:00 [facility] TDAP (ADACEL) 2018-09-14 Completed University of VACCINE 00:00:00 [facility] TDAP (ADACEL) 2018-09-14 Completed University of VACCINE 00:00:00 [facility] TDAP (ADACEL) 2018-09-14 Completed University of VACCINE 00:00:00 [facility] TDAP (ADACEL) 2018-09-14 Completed University of VACCINE 00:00:00 [facility] TDAP (ADACEL) 2018-09-14 Completed University of VACCINE 00:00:00 [facility] TDAP (ADACEL) 2018-09-14 Completed University of VACCINE 00:00:00 [facility] TDAP (ADACEL) 2018-09-14 Completed University of VACCINE 00:00:00 [facility] TDAP (ADACEL) 2018-09-14 Completed [facility] of VACCINE 00:00:00 [facility] TDAP (ADACEL) 2018-09-14 Completed [facility] of VACCINE 00:00:00 [facility] TDAP (ADACEL) 2018-09-14 Completed [facility] of VACCINE 00:00:00 [facility] TDAP (ADACEL) 2018-09-14 Completed [facility] of VACCINE 00:00:00 [facility] TDAP (ADACEL) 2018-09-14 Completed University of VACCINE 00:00:00 [facility] TDAP (ADACEL) 2018-09-14 Completed University of VACCINE 00:00:00 [facility] TDAP (ADACEL) 2018-09-14 Completed University of VACCINE 00:00:00 [facility] TDAP (ADACEL) 2018-09-14 Completed University of VACCINE 00:00:00 [facility] TDAP (ADACEL) 2018-09-14 Completed University of VACCINE 00:00:00 [facility] TDAP (ADACEL) 2018-09-14 Completed University of VACCINE 00:00:00 [facility] TDAP (ADACEL) 2018-09-14 Completed University of VACCINE 00:00:00 [facility] TDAP (ADACEL) 2018-09-14 Completed University of VACCINE 00:00:00 [facility] TDAP (ADACEL) 2018-09-14 Completed [facility] of VACCINE 00:00:00 [facility] TDAP (ADACEL) 2018-09-14 Completed [facility] of VACCINE 00:00:00 [facility] TDAP (ADACEL) 2018-09-14 Completed [facility] of VACCINE 00:00:00 [facility] TDAP (ADACEL) 2018-09-14 Completed University of VACCINE 00:00:00 [facility] TDAP (ADACEL) 2018-09-14 Completed University of VACCINE 00:00:00 [facility] TDAP (ADACEL) 2018-09-14 Completed University of VACCINE 00:00:00 [facility] TDAP (ADACEL) 2018-09-14 Completed University of VACCINE 00:00:00 [facility] TDAP (ADACEL) 2018-09-14 Completed University of VACCINE 00:00:00 [facility] TDAP (ADACEL) 2018-09-14 Completed University of VACCINE 00:00:00 [facility] TDAP (ADACEL) 2018-09-14 Completed University of VACCINE 00:00:00 [facility] TDAP (ADACEL) 2018-09-14 Completed University of VACCINE 00:00:00 [facility] TDAP (ADACEL) 2018-09-14 Completed University of VACCINE 00:00:00 [facility] TDAP (ADACEL) 2018-09-14 Completed University of VACCINE 00:00:00 [facility] TDAP (ADACEL) 2018-09-14 Completed University of VACCINE 00:00:00 [facility] TDAP (ADACEL) 2018-09-14 Completed University of VACCINE 00:00:00 [facility] TDAP (ADACEL) 2018-09-14 Completed University of VACCINE 00:00:00 [facility] TDAP (ADACEL) 2018-09-14 Completed University of VACCINE 00:00:00 [facility] TDAP (ADACEL) 2018-09-14 Completed University of VACCINE 00:00:00 [facility] TDAP (ADACEL) 2018-09-14 Completed University of VACCINE 00:00:00 [facility] TDAP (ADACEL) 2018-09-14 Completed University of VACCINE 00:00:00 [facility] TDAP (ADACEL) 2018-09-14 Completed University of VACCINE 00:00:00 [facility] TDAP (ADACEL) 2018-09-14 Completed University of VACCINE 00:00:00 [facility] TDAP (ADACEL) 2018-09-14 Completed University of VACCINE 00:00:00 [facility] TDAP (ADACEL) 2018-09-14 Completed University of VACCINE 00:00:00 [facility] TDAP (ADACEL) 2018-09-14 Completed University of VACCINE 00:00:00 [facility] TDAP (ADACEL) 2018-09-14 Completed University of VACCINE 00:00:00 [facility] TDAP (ADACEL) 2018-09-14 Completed University of VACCINE 00:00:[address] [facility] [place] Vital Signs Vital Name Observation Time Observation Value Comments Source Systolic blood 2022-08-21 16:59:00 122 mm[Hg] Univer sity of pressure [facility] Diastolic blood 2022-08-21 16:59:00 79 mm[Hg] Unive rsity of pressure [facility] Heart rate 2022-08-21 16:59:00 63 /min Universi ty of [facility] Body height 2022-08-21 16:59:00 165.1 cm Universi ty of [facility] Oxygen saturation in 2022-08-21 16:59:00 98 /min University of Arterial blood by [place] [employer] [facility] Pulse oximetry Branch Systolic blood 2022-08-08 19:30:00 124 mm[Hg] Univer sity of pressure [facility] Diastolic blood 2022-08-08 19:30:00 80 mm[Hg] Unive rsity of pressure [facility] Heart rate 2022-08-08 19:30:00 50 /min Universi ty of [facility] Body temperature 2022-08-08 19:30:00 36.61 Darleen Univ ersity of [facility] Respiratory rate 2022-08-08 19:30:00 17 /min Univ ersity of [facility] Body height 2022-08-08 19:30:00 165.1 cm Universi ty of [facility] Body weight 2022-08-08 19:30:00 56.427 kg Universi ty of [facility] BMI 2022-08-08 19:30:00 20.70 kg/m2 Universi ty of [facility] Oxygen saturation in 2022-08-08 19:30:00 100 /min University of Arterial blood by [place] [employer] gustavo Pulse oximetry Branch Systolic blood 2022-08-04 18:54:00 102 mm[Hg] Univer sity of pressure [facility] Diastolic blood 2022-08-04 18:54:00 70 mm[Hg] Unive rsity of pressure [facility] Heart rate 2022-08-04 18:54:00 76 /min Universi ty of [facility] Body height 2022-08-04 18:54:00 165.1 cm Universi ty of [facility] Body weight 2022-08-04 18:54:00 56.7 kg Universi ty of [facility] BMI 2022-08-04 18:54:00 20.80 kg/m2 Universi ty of [facility] Systolic blood 2022-06-09 13:23:00 100 mm[Hg] Univer sity of pressure [facility] Diastolic blood 2022-06-09 13:23:00 77 mm[Hg] Unive rsity of pressure [facility] [place] Heart rate 2022-06-09 13:23:00 73 /min Universi ty of [facility] [place] Body temperature 2022-06-09 13:23:00 36.61 Darleen Univ ersity of [facility] [place] Respiratory rate 2022-06-09 13:23:00 20 /min Univ ersity of [facility] [place] Body height 2022-06-09 13:23:00 165.1 cm Universi ty of [facility] Body weight 2022-06-09 13:23:00 61.009 kg Universi ty of [facility] BMI 2022-06-09 13:23:00 22.38 kg/m2 Universi ty of [facility] Oxygen saturation in 2022-06-09 13:23:00 100 /min University Arterial blood by [facility] Pulse oximetry Branch Systolic blood 2022-04-30 16:02:00 108 mm[Hg] Univer sity of pressure [facility] [place] Diastolic blood 2022-04-30 16:02:00 76 mm[Hg] Unive rsity of pressure [facility] Heart rate 2022-04-30 16:02:00 69 /min Universi ty of [facility] Body temperature 2022-04-30 16:02:00 36.78 Darleen Univ ersity of [facility] [place] Respiratory rate 2022-04-30 16:02:00 18 /min Univ ersity of [facility] [place] Body height 2022-04-30 16:02:00 165.1 cm Universi ty of [facility] Body weight 2022-04-30 16:02:00 54.885 kg Universi ty of [facility] BMI 2022-04-30 16:02:00 20.14 kg/m2 Universi ty of [facility] Systolic blood 2022-03-11 03:49:00 94 mm[Hg] Univer sity of pressure [facility] [place] Diastolic blood 2022-03-11 03:49:00 66 mm[Hg] Unive rsity of pressure [facility] [place] Heart rate 2022-03-11 03:49:00 68 /min [facility] Body temperature 2022-03-11 03:49:00 36.22 Darleen [facility] [place] Respiratory rate 2022-03-11 03:49:00 16 /min [facility] [place] Oxygen saturation in 2022-03-11 03:49:00 97 /min [facility] Arterial blood by [facility] Pulse oximetry Branch Body height 2022-03-10 23:54:00 165.1 cm [facility] Body weight 2022-03-10 23:54:00 56.7 kg [facility] BMI 2022-03-10 23:54:00 20.80 kg/m2 [facility] Systolic blood 2022-01-27 16:15:00 103 mm[Hg] Univer sity of [facility] Diastolic blood 2022-01-27 16:15:00 74 mm[Hg] Unive rsity of [facility] Heart rate 2022-01-27 16:15:00 93 /min [facility] Body weight 2022-01-27 16:15:00 57.607 kg [facility] BMI 2022-01-27 16:15:00 21.13 kg/m2 [facility] Procedures Procedure Date / Time Performing Clinician Source Performed EXTERNAL PROVIDER RECORDS 2022-08-25 05:01:00 Doctor Unassigned, [facility] [place] [facility] INSURANCE CORRESPONDENCE 2022-08-19 05:01:00 Doctor Unassigned, [facility] [place] [facility] HEPATITIS B SURFACE 2022-06-26 15:45:00 Teo Ingram [facility] ANTIGEN [facility] HIV 1/2 AG-AB WITH REFLEX 2022-06-26 15:45:00 [facility] BREAST 2022-06-26 14:44:24 [facility] BI DIAGNOSTIC 2022-06-26 14:00:00 Nataly [facility] TOMOSYNTHESIS LEFT Medical Branc h XR CHEST 1 VW 2022-06-09 14:21:00 Eric Fernandez [facility] CT CERVICAL SPINE WO 2022-06-09 14:18:00 Jim Eric [facility] CONTRAST [facility] INSURANCE CORRESPONDENCE 2022-06-08 05:01:00 Doctor Alyssa, [facility] Name Medical [place] CONSENT/REFUSAL FOR 2022-06-03 16:39:37 Doctor Alyssa [facility] DIAGNOSIS AND TREATMENT [place] [facility] [place] DME/SUPPLY JUSTIFICATION 2022-05-04 06:01:00 Doctor Alyssa [facility] Name [facility] EXTERNAL PROVIDER RECORDS 2022-04-03 06:01:00 Doctor Shah [facility] XR WRIST <3 VW RIGHT 2022-03-11 00:49:[address] [facility] XR WRIST 3+ VW LEFT 2022-03-11 00:49:27 Darryn Owusu [facility] COVID-19 (ID NOW RAPID 2022-03-10 23:52:00 Darryn [facility] TESTING) [facility] POCT TEST 2022-03-10 23:46:00 Darryn Owusu [facility] COMP. METABOLIC PANEL 2022-03-10 23:45:00 Darryn [facility] ([id number]) [facility] SALICYLATE 2022-03-10 23:45:00 Owusu, [facility] ETHANOL 2022-03-10 23:45:00 Owusu, [facility] CBC WITH DIFF 2022-03-10 23:45[facility] 2022-03-10 23:45:00 Owusu, [facility] URINE DRUG (IMMUNOASSAY) 2022-03-10 23:45:00 Darryn Owusu [facility] - COMPREHENSIVE DRUG Medical [facility] SCREEN W/O REFLEX FLU VACC ([id number]), 6 2022-01-27 16:36:45 Arik Benz [facility] [place]-64 YRS, .5ML, IM, [facility] l Branch (FLUCELVAX) ASSIGNMENT OF BENEFITS 2022-01-27 16:03:32 Doctor Unassigned, [facility] [place] [facility] POCT URINALYSIS 2022-01-27 00:00:00 Arik Benz Verbena o f [facility] AUTHORIZATION FOR RELEASE 2022-01-08 05:01:00 Doctor Unassigned, [facility] [place] [facility] AUTHORIZATION FOR RELEASE 2021-12-23 05:01:00 Doctor Unassjordan, [facility] [place] [facility] Encounters Start End Encounter Admission Attending Care Care Encounter Source Date/Time Date/Time Type Type Clinicians Facility Department ID 2021-05-01 Outpatient MDA MDA [id number] 17:26:47 Anderso n 2021-02-26 Outpatient P [facility] [id number] Univers 18:38:[address] [facility] [place] 2021-01-27 Outpatient P [facility] [id number] Univers 20:41:[address] [facility] [place] 2021-01-27 Emergency [facility] [id number] Univers 20:40:[address] [facility] [place] 2021-01-27 Emergency [facility] [id number] Univers 15:33:[address] [facility] [place] 2021-01-27 Outpatient U [facility] [id number] Univers 01:16:[address] [facility] [place] 2021-01-27 Emergency [facility] [id number] Univers 00:53:[address] [facility] [place] 2021-01-26 Emergency [facility] [id number] Univers 22:49:[address] [facility] [place] 2021-01-25 Emergency [facility] [id number] Univers 21:41:[address] [facility] [place] 2021-01-25 Outpatient [facility] [id number] Univers 13:01:25 ALY [address] [facility] [place] 2021-01-25 Outpatient [facility] [id number] Univers 13:01:24 ALY ity [facility] 2021-01-25 Outpatient R SHELBY [facility] [id number] Univers 12:47:10 ALYORAL ellis [facility] 2021-01-24 [facility] [id number] Univers 15:57:25 ALY ity [facility] 2021-01-24 Emergency [facility] [id number] Univers 10:32:11 ity [facility] 2021-01-24 Emergency [facility] [id number] Univers 10:16:12 ity [facility] 2021-01-23 Emergency [facility] [id number] Univers [facility]-08 2022-12-08 [facility] [id number] Univers 16:15:00 16:15:00 ARIK [facility] 2022-09-09 2022-09-09 [facility] [id number] Univers 00:00:00 00:00:00 [facility] [id number] it y of [place] [id number] [place] as DONTE?BLEA [phone] [address] MEDICAL OFFICE [facility] 2022-09-09 2022-09-09 [facility] [id number] Univers 00:00:00 00:00:00 [facility] [id number] it y of [place] [id number] [place] as DONTE?BLEA [id number] [address] MEDICAL OFFICE [facility] 2022-09-09 2022-09-09 Patient [facility] 1.2.840.114 [id number] Univers 00:00:00 00:00:00 Secure Msg [facility] [id number] ity of [place] [id number] [place] as DONTE?BLEA [id number] [address] OFFICE [facility] 2022-09-09 2022-09-09 [facility] 1.2.840.114 [id number] Univers 00:00:00 00:00:00 Arik HEALTH [id number] it y of [place] [id number] [place] as DONTE?BLEA [id number] [address] OFFICE [facility] 2022-09-09 2022-09-09 Telephone [place] [id number] Univers 00:00:00 00:00:00 Arik HEALTH [id number] it y of [place] [id number] [place] as DONTE?BLEA [phone] [address] 2022-09-08 2022-09-08 [place] [id number] [facility] 00:00:00 00:00:00 [facility] [id number] it y of [place] [id number] [place] as DONTE?BLEA [id number] [address] 2022-09-02 2022-09-02 [facility] 1.2.840.114 [id number] Univers 00:00:00 00:00:00 [facility] [id number] it y of [place] [id number] [place] as DONTE?BLEA [id number] [address] 2022-08-31 2022-08-31 [facility] 1.2.840.114 [id number] Univers 00:00:00 00:00:00 [facility] [id number] it y of [place] [id number] [place] as DONTE?BLEA [phone] [address] 2022-08-31 2022-08-31 [facility] 1.2.840.114 [id number] Univers 00:00:00 00:00:00 Secure Msg Arik HEALTH [id number] ity of [place] 4.2.7.2.686 [place] as DONTE?BLEA [id number] [address] MEDICAL OFFICE BUILDING 2022-08-27 2022-08-27 Refill Jessica [facility] 1.2.840.114 [id number] Univers 00:00:00 00:00:00 , Donna [facility] [id number] ity of Karen [place] 4.2.7.2.686 [place] as DONTE?BLEA [phone] [address] MEDICAL OFFICE BUILDING 2022-08-27 2022-08-27 Patient Demar [facility] 1.2.840.114 [id number] Univers 00:00:00 00:00:00 Secure [facility] [id number] ity of Edsteven [facility] [id number] [place] as DONTE?BLEA [phone] [address] MEDICAL OFFICE [facility] 2022-08-25 2022-08-25 Orders Doctor JUAN 1.2.840.114 [id number] Univers 00:00:00 00:00:00 Only Unassigned, JARROD [id number] ity of [place] [facility] [id number] [place] as [phone] [address] 2022-08-21 2022-08-21 Outpatient R JESSICA [facility] [id number] Univers 11:20:00 12:22:58 , DONNA it y of [facility] [place] 2022-08-21 2022-08-21 Office [facility] 1.2.840.114 [id number] Univers 11:20:00 12:22:58 [facility] [id number] ity of [place] 4.2.7.2.686 [place] as DONTE?BLEA [phone] [address] MEDICAL OFFICE BUILDING 2022-08-21 2022-08-21 Patient Anthony [facility] 1.2.840.114 [id number] Univers 00:00:00 00:00:00 Outreach Gema Maria [facility] [id number] i ty of [place] 4.2.7.2.686 [place] as DONTE?BLEA [id number] [address] OFFICE [facility] 2022-08-19 2022-08-19 Telephone [facility] 1.2.840.114 [id number] Univers 00:00:00 00:00:00 Arik HEALTH [id number] it y of [place] 4.2.7.2.686 [place] as DONTE?BLEA [id number] [address] OFFICE [facility] 2022-08-19 2022-08-19 Orders Doctor JUAN 1.2.840.114 [id number] Univers 00:00:00 00:00:00 Only Unassigned, JARROD [id number] ity of [place] [facility] [id number] [place] as [phone] [address] 2022-08-15 2022-08-15 Refill [facility] 1.2.840.114 [id number] Univers 00:00:00 00:00:00 Arik HEALTH [id number] it y of [place] 4.2.7.2.686 [place] as DONTE?BLEA [id number] [address] OFFICE [facility] 2022-08-10 2022-08-10 Telephone [facility] 1.2.840.114 [id number] Univers 00:00:00 00:00:00 Teo JOSELINE [id number] i ty of [place] [id number] [facility] [address] 2022-08-10 2022-08-10 Telephone [facility] 1.2.840.114 [id number] Univers 00:00:00 00:00:00 [facility] [id number] it y of [place] 4.2.7.2.686 [place] as DONTE?BLEA [id number] [address] OFFICE [facility] 2022-08-10 2022-08-10 Telephone [facility] 1.2.840.114 [id number] Univers 00:00:00 00:00:00 Teo [place] [id number] i ty [facility] 4.2.7.2.[place] [phone] In dical KERA [address] [facility] 2022-08-08 2022-08-08 Nurse Nurse, [facility] 1.2.840.114 [id number] Univers 14:30:00 14:50:00 Visit Unknown, [facility] [id number] ity of [place] 4.2.7.2.686 [place] as DONTE?BLEA [id number] In dical [facility] [address] [facility] OFFICE [facility] 2022-08-08 2022-08-08 Outpatient R [facility] [id number] Univers 14:30:00 14:30:00 TEO [facility] 2022-08-04 2022-08-04 Office [facility] 1.2.840.114 [id number] Univers 14:30:00 15:00:00 Visit [place] [id number] it y of [place] 4.2.7.2.686 [place] as DONTE?BLEA [id number] [address] 2022-08-04 2022-08-04 Outpatient R DMEAR [facility] [id number] Univers 14:30:00 14:18:19 ARIK [facility] 2022-07-30 2022-07-30 RefJUAN Stein 1.2.840.114 [id number] Univers 00:00:00 00:00:00 Abril GARAY [id number] it y of HOSPITAL 4.2.7.2.686 [place] as [phone] [address] 2022-07-26 2022-07-26 [facility] 1.2.840.114 [id number] Univers 00:00:00 00:00:00 [facility] [id number] it y of [facility] [id number] [place] as DONTE?BLEA [phone] [address] 2022-07-22 2022-07-22 Telephone [facility] 1.2.840.114 [id number] Univers 00:00:00 00:00:00 TrovaGene 350.1.13.10 it y of [place] 4.2.7.2.686 [place] as DONTE?BLEA [phone] In dread MELVIN [address] [place] MEDICAL OFFICE BUILDING 2022-06-26 2022-06-26 [facility] 1.2.840.114 [id number] Univers 08:19:16 23:59:00 Encounter Teo SPECIALTY [id number] ity of [place] [id number] In dread MESSER 800 [facility] 2022-06-26 2022-06-26 [facility], [facility] 1.2.840.114 [id number] Univers 10:30:00 10:45:00 Visit Teo Ingram SPECIALTY [id number] ity of [place]2.[place] [phone] In dread MESSER 353 [facility] 2022-06-26 2022-06-26 Outpatient [facility] [id number] Univers 08:18:41 08:18:00 TEO ity of [facility] [place] [place] 2022-06-26 2022-06-26 [facility] 1.2.840.114 [id number] Univers 08:00:00 08:18:00 Encounter Teo SPECIALTY 350.1.13.10 it[place] [phone] In dread MESSER [address] [place] [address] 2022-06-26 2022-06-26 Case KATHERINE Ingram 1.2.274.590 [id number] Univers 00:00:00 00:00:00 Management Teo PEDIATRIC 350.1.13.10 [place] [phone] [address] CLINIC 2022-06-25 2022-06-25 Patient Demar [facility] 1.2.840.114 [id number] Univers 00:00:00 00:00:00 Secure Msg Arik HEALTH 350.1.13.10 ity of [place] 4.2.7.2.686 Henry as DONTE?BLEA [phone] In dread Lujan [facility] OFFICE [facility] 2022-06-25 2022-06-25 [facility] 1.2.840.114 [id number] Univers 00:00:00 00:00:00 Secure Msg [facility] 350.1.13.10 ity of [place] 4.2.7.2.686 [place] as DONTE?BLEA [phone] In dread MELVIN [address] [place] [address] OFFICE [facility] 2022-06-25 2022-06-25 Patient [facility] 1.2.314.992 [id number] [id number] Univers 00:00:00 00:00:00 Secure Msg Teo [place] 350.1.13.10 ity of [place].7.2.686 [place] [phone] In dical NAL [address] [place] [address] 2022-06-22 2022-06-22 [facility]ill [facility] 1.2.840.114 [id number] Univers 00:00:00 00:00:00 [facility] 350.1.13.10 it y of [place] 4.2.7.2.686 [place] as DONTE?BLEA [phone] In dread MELVIN [address] [place] [address] OFFICE [facility] 2022-06-22 2022-06-22 Telephone [facility] 1.2.840.114 [id number] Univers 00:00:00 00:00:00 Teo [place] 350.1.13.10 i ty of [place] 4.2.7.2.686 [place] [phone] In dical NAL [address] [place] [address] 2022-06-19 2022-06-19 Telephone [facility] 1.2.840.114 10 [id number] Univers 00:00:00 00:00:00 Teo [place] 350.1.13.10 i ty of [facility] 4.2.7.2.[place] [phone] In dical NAL [address] [place] [address] 2022-06-12 2022-06-12 Telephone [facility] 1.2.127.467 [id number] [id number] Univers 00:00:00 00:00:00 Elle Candace ANDERSONHIRA 350.1.13.10 ity of [place].7.2.686 [place] [facility] [phone] In dread COTE 134 [facility] 2022-06-10 2022-06-10 Patient Doctor [facility] 1.2.840.114 [id number] Univers 00:00:00 00:00:00 Secure Msg Unassigned, [facility] 350.1.13.10 ity of [place] 4.2.7.2.686 [place] as DONTE?BLEA [phone] In dread MELVIN [address] [place] [address] OFFICE [facility] 2022-06-09 2022-06-09 Emergency X AUFDERHEIDE [facility] ERT [id number] Univers 08:29:00 10:11:00 , ERIC ity of [facility] [place] 2022-06-09 2022-06-09 [facility] 1.2.840.114 [id number] Univers 08:29:00 10:11:00 , Eric PESCADERO 350.1.13.10 i ty of [place].2.7.2.686 [place] [phone] [address] 2022-06-09 2022-06-09 Telephone [facility] 1.2.840.114 [id number] Univers 00:00:00 00:00:00 [facility] 350.1.13.10 it y of [place] 4.2.7.2.686 [place] as DONTE?BLEA [phone] In dread [address] OFFICE [facility] 2022-06-09 2022-06-09 Refill [facility] 1.2.840.114 [id number] Univers 00:00:00 00:00:00 [facility] 350.1.13.10 it y of [place] 4.2.7.2.686 [place] as DONTE?BLEA [phone] In dread [address] OFFICE [facility] 2022-06-08 2022-06-08 Orders Doctor JUAN 1.2.840.114 [id number] Univers 00:00:00 00:00:00 Only Unassigned, JARROD 350.1.13.10 ity of [place] [facility] 4.2.7.2.686 [place] as [phone] [facility] [address] [place] 2022-06-05 2022-06-05 Outpatient R CARLOS [facility] [id number] Univers 11:00:00 11:00:00 ELLE ity of [facility] [place] 2022-06-05 2022-06-05 Telephone [facility] 1.2.840.114 [id number] Univers 00:00:00 00:00:00 [facility] 350.1.13.10 it y of [place] 4.2.7.2.686 Henry as DONTE?BLEA [phone] [address] MEDICAL OFFICE [facility] 2022-06-04 2022-06-04 Telephone [facility] 1.2.840.114 101 [id number] Univers 00:00:00 00:00:00 [facility] 350.1.13.10 it y of [place] 4.2.7.2.686 [place] as DONTE?BLEA [phone] [address] OFFICE [facility] 2022-06-04 2022-06-04 Patient [facility] 1.2.840.114 [id number] Univers 00:00:00 00:00:00 Secure Msg [facility] 350.1.13.10 ity of [place] 4.2.7.2.686 [place] as DONTE?BLEA [phone] [address] MEDICAL OFFICE [facility] 2022-06-03 2022-06-03 Outpatient [facility] [id number] Univers 10:40:13 23:59:00 TEO ity [facility] 2022-06-03 2022-06-03 [facility] 1.2.840.114 [id number] Univers 10:40:00 23:59:00 Encounter Teo TREVIZO 350.1.13.10 ity of [place].2.7.2.[place] [phone] [facility] [address] [place] 2022-06-03 2022-06-03 Patient Doctor [facility] 1.2.840.114 [id number] Univers 00:00:00 00:00:00 Secure Msg Unassigned, [place] 350.1.13.10 ity of [place] 4.2.7.2.686 [place] [phone] [facility] 134 [facility] 2022-06-03 2022-06-03 Orders Doctor JUAN 1.2.840.114 [id number] Univers 00:00:00 00:00:00 Only Unassigned, JARROD 350.1.13.10 ity of [place] [facility] 4.2.7.2.686 [place] as [phone] [address] 2022-05-25 2022-05-25 Patient [facility] 1.2.840.114 [id number] Univers 00:00:00 00:00:00 Secure Msg [facility] 350.1.13.10 ity of [place] 4.2.7.2.686 [place] as DONTE?BLEA [phone] [facility] 044 [facility] OFFICE [facility] 2022-05-25 2022-05-25 Telephone [facility] 1.2.840.114 [id number] Univers 00:00:00 00:00:00 [facility] 350.1.13.10 it y of [place] 4.2.7.2.686 Henry as DONTE?BLEA [phone] [facility] 044 [facility] OFFICE [facility] 2022-05-04 2022-05-04 Orders Doctor JUAN 1.2.840.114 [id number] Univers 00:00:00 00:00:00 Only Unassigned, JARROD 350.1.13.10 ity of [place] [facility] 4.2.7.2.686 Henry as [phone] [address] 2022-04-30 2022-04-30 Outpatient Campos INGRAM [facility] [id number] Univers 09:45:00 10:48:21 TEO it[address]onard of [facility] [place] 2022-04-30 2022-04-30 Office Nataly [facility] 1.2.069.267 [id number] [id number] Univers 09:45:00 10:48:21 Visit Teo TREVZIO 350.1.13.10 i ty of [place] 4.2.7.2.686 [place] [phone] In dicdhruv COTE 134 [facility] 2022-04-30 2022-04-30 Outpatient R NATALY [facility] [id number] Univers 09:45:00 09:45:00 TEO ellis [facility] 2022-04-29 2022-04-29 [facility] 1.2.840.114 [id number] Univers 00:00:00 00:00:00 Arik HEALTH 350.1.13.10 it y of [place] 4.2.7.2.686 Henry as DONTE?BLEA [phone] In dical NGOZI [address] [place] [address] OFFICE [facility] 2022-04-28 2022-04-28 [facility] 1.2.840.114 100 [id number] Univers 00:00:00 00:00:00 [facility] HEALTH 350.1.13.10 it y of [place] 4.2.7.2.686 Henry as DONTE?BLEA [id number] In dical NGOZI [address] [place] [address] OFFICE [facility] 2022-04-24 2022-04-24 [facility] 1.2.840.114 [id number] [id number] Univers 00:00:00 00:00:00 Arik HEALTH 350.1.13.10 it y of [place] 4.2.7.2.686 Henry as DONTE?BLEA [phone] In dical KNKENYON [address] [place] [address] OFFICE [facility] 2022-04-24 2022-04-24 [facility] 1.2.840.114 [id number] Univers 00:00:00 00:00:00 Arik HEALTH 350.1.13.10 it y of [place] 4.2.7.2.686 Henry as DONTE?BLEA [id number] In dical [address] OFFICE [facility] 2022-04-24 2022-04-24 Patient [facility] 1.2.840.114 [id number] Univers 00:00:00 00:00:00 Secure Msg Emilia M HEALTH 350.1.13.10 ity of [place] 4.2.7.2.686 Henry as DONTE?BLEA [phone] In dread PRADHAN[address] OFFICE [facility] 2022-04-24 2022-04-24 [facility] 1.2.840.114 [id number] Univers 00:00:00 00:00:00 [facility] 350.1.13.10 it y of [place] 4.2.7.2.686 Henry as DONTE?BLEA [phone] [address] OFFICE [facility] 2022-04-16 2022-04-16 [facility] 1.2.840.114 999 [id number] Univers 00:00:00 00:00:00 [facility] 350.1.13.10 it y of [place] 4.2.7.2.686 Henry as DONTE?BLEA [phone] [address] 2022-04-14 2022-04-14 [facility] 1.2.840.114 [id number] [id number] Univers 00:00:00 00:00:00 [facility] 350.1.13.10 it y of [place] 4.2.7.2.686 Henry as DONTE?BLEA [phone] [address] 2022-04-06 2022-04-06 [facility] 1.2.840.114 [id number] Univers 00:00:00 00:00:00 [facility] 350.1.13.10 it y of [place] 4.2.7.2.686 Henry as DONTE?BLEA [phone] [address] OFFICE [facility] 2022-04-06 2022-04-06 [facility] 1.2.840.114 [id number] Univers 00:00:00 00:00:00 [facility] 350.1.13.10 it y of [place] 4.2.7.2.686 Henry as DONTE?BLEA [phone] [facility] CAROLY[address] 2022-04-06 2022-04-06 [facility] 1.2.840.114 [id number] [id number] Univers 00:00:00 00:00:00 [facility] 350.1.13.10 it y of [place] 4.2.7.2.686 Henry as DONTE?BLEA [phone] [address] OFFICE [facility] 2022-04-06 2022-04-06 [facility] 1.2.840.114 [id number] [id number] Univers 00:00:00 00:00:00 Arik HEALTH 350.1.13.10 it y of [place] 4.2.7.2.686 Henry as DONTE?BLEA [phone] [address] 2022-04-03 2022-04-03 Orders Doctor JUAN 1.2.840.114 [id number] Univers 00:00:00 00:00:00 Only Unassigned, JARROD 350.1.13.10 ity of [place] [facility] 4.2.7.2.686 Henry as [phone] [address] 2022-03-29 2022-03-29 [facility] 1.2.840.114 [id number] Univers 00:00:00 00:00:00 [facility] 350.1.13.10 it y of [place] 4.2.7.2.686 Henry as DONTE?BLEA [phone] [address] OFFICE [facility] 2022-03-21 2022-03-21 [facility] 1.2.840.114 [id number] Univers 00:00:00 00:00:00 [facility] 350.1.13.10 it y of [place] 4.2.7.2.686 Henry as DONTE?BLEA [phone] [address] OFFICE [facility] 2022-03-17 2022-03-17 Patient [facility] 1.2.840.114 [id number] Univers 00:00:00 00:00:00 Secure Msg Emilia HEALTH 350.1.13.10 ity of [place] 4.2.7.2.686 Henry as DONTE?BLEA [phone] In dread MELVIN [address] [place] [address] MEDICAL OFFICE [facility] 2022-03-16 2022-03-16 [facility] 1.2.840.114 [id number] Univers 00:00:00 00:00:00 Arik HEALTH 350.1.13.10 it y of [place] 4.2.7.2.686 Henry as DONTE?BLEA [phone] In dread MELVIN [address] [place] [address] OFFICE [facility] 2022-03-16 2022-03-16 [facility] 1.2.840.114 [id number] 002 Univers 00:00:00 00:00:00 Arik HEALTH 350.1.13.10 it y of [place] 4.2.7.2.686 Henry as DONTE?BLEA [phone] In dread PRADHAN[address] OFFICE [facility] 2022-03-16 2022-03-16 Patient [facility] 1.2.840.114 [id number] Univers 00:00:00 00:00:00 Secure [facility] 350.1.13.10 ity of [place] 4.2.7.2.686 Henry as DONTE?BLEA [phone] In dread PRADHAN[address] OFFICE [facility] 2022-03-13 2022-03-13 Patient [facility] 1.2.840.114 [id number] Univers 00:00:00 00:00:00 Secure [facility] HEALTH 350.1.13.10 ity of [place] 4.2.7.2.686 Henry as DONTE?BLEA [phone] In dread PRADHAN[address] OFFICE [facility] 2022-03-13 2022-03-13 Telephone [facility] 1.2.840.114 [id number] Univers 00:00:00 00:00:00 [facility] HEALTH 350.1.13.10 it y of [place] 4.2.7.2.686 Henry as DONTE?BLEA [phone] In dread PRADHAN[address] OFFICE [facility] 2022-03-13 2022-03-13 [facility] 1.2.840.114 [id number] Univers 00:00:00 00:00:00 [facility] 350.1.13.10 it y of [place] 4.2.7.2.686 Henry as DONTE?BLEA [phone] [address] MEDICAL OFFICE [facility] 2022-03-11 2022-03-11 JUAN Jackson 1.2.840.114 [id number] Univers 00:00:00 00:00:00 (Out) Helen GARAY 350.1.13.10 it y of [facility] 4.2.7.2.686 Henry as [phone] [facility] [address] [place] 2022-03-10 2022-03-10 Emergency X RONEN [facility] ERT [id number] Univers 17:24:00 23:18:00 KEITH [facility] 2022-03-10 2022-03-10 Emergency Darryn Owusu [facility] 1.2.840. 114 [id number] Univers 17:24:00 23:18:00 Keith Yi 350.1.13.10 ity of [place] 4.2.7.2.686 [place] [facility] [phone] [facility] [address] [place] 2022-03-10 2022-03-10 [facility] 1.2.840.114 [id number] Univers 00:00:00 00:00:00 [facility] 350.1.13.10 it y of [place] 4.2.7.2.686 Henry as DONTE?BLEA [phone] [address] OFFICE [facility] 2022-02-23 2022-02-23 [facility] 1.2.840.114 [id number] Univers 00:00:00 00:00:00 [facility] 350.1.13.10 it y of [place] 4.2.7.2.686 Henry as DONTE?BLEA [phone] [address] OFFICE [facility] 2022-01-27 2022-01-27 Keily BENZ [facility] [id number] Univers 11:30:00 12:50:55 ARIK [facility] 2022-01-272022-01-27 Office [facility] 1.2.840.114 [id number] Univers 11:30:00 12:50:55 Visit [facility] 350.1.13.10 it y of [place] 4.2.7.2.686 Henry as DONTE?BLEA [phone] In dical NGOZI 044 [facility] OFFICE [facility] 2022-01-27 2022-01-27 Orders Doctor JUAN 1.2.840.114 [id number] Univers 00:00:00 00:00:00 Only Unassigned, JARROD 350.1.13.10 ity of [place] [facility] 4.2.7.2.686 Henry as [phone] [address] 2022-01-26 2022-01-26 Outpatient R [facility] [id number] Univers 13:00:00 13:00:[address] [facility] [place] 2022-01-26 2022-01-26 Patient [facility] 1.2.840.114 [id number] Univers 00:00:00 00:00:00 Secure Msg Arik PESCADERO 350.1.13.10 ity of [place] 4.2.7.2.686 [place] [phone] In dread COTE 225 [facility] 2022-01-26 2022-01-26 Telephone [facility] 1.2.840.114 [id number] Univers 00:00:00 00:00:00 [facility] 350.1.13.10 it y of [place] 4.2.7.2.686 Henry as DONTE?BLEA [phone] In dical NGOZI 044 [facility] OFFICE [facility] 2022-01-23 2022-01-23 Refill [facility] 1.2.840.114 [id number] Univers 00:00:00 00:00:00 [facility] 350.1.13.10 it y of [place] 4.2.7.2.686 Henry as DONTE?BLEA [phone] In dical NGOZI [address] [place] [address] OFFICE [facility] 2022-01-22 2022-01-22 Patient [facility] 1.2.840.114 [id number] Univers 00:00:00 00:00:00 Secure Msg Arik TREVIZO 350.1.13.10 ity of [place] 4.2.7.2.686 [place] LAZ[place] [phone] In dread OCTE 225 [facility] 2022-01-20 2022-01-20 [facility] 1.2.840.114 [id number] 065 Univers 00:00:00 00:00:00 [facility] 350.1.13.10 it y of [place]st[place]VI[place] 4.2.7.2.686 Henry as DONTE?BLEA [phone] In dread MELVIN [address] [place] [address] OFFICE [facility] 2022-01-19 2022-01-19 [facility] 1.2.840.114 [id number] Univers 00:00:00 00:00:00 [facility] 350.1.13.10 it y of Edsteven [facility] 4.2.7.2.686 Henry as DONTE?BLEA [phone] [facility] PRADHAN[address] OFFICE [facility] 2022-01-19 2022-01-19 Patient [facility] 1.2.840.114 [id number] Univers 00:00:00 00:00:00 Secure Msg [facility] 350.1.13.10 ity of [place]st[place]VI[place] 4.2.7.2.686 Henry as DONTE?BLEA [id number] [facility] NGOZI [address] [place] [address] OFFICE [facility] 2022-01-08 2022-01-08 Telephone [facility] 1.2.888.417 [id number] Univers 00:00:00 00:00:00 Onel HEALTH 350.1.13.10 it y of [place] 4.2.7.2.686 Henry as DONTE?BLEA [phone] [address] OFFICE [facility] 2022-01-08 2022-01-08 Orders Doctor MARTINEZ 1.2.840.114 [id number] Univers 00:00:00 00:00:00 Only Unassigned, JARROD 350.1.13.10 ity of [place] [facility] 4.2.7.2.686 Henry as [phone] [address] 2021-12-23 2021-12-23 Telephone [facility] 1.2.840.114 [id number] Univers 00:00:00 00:00:00 Arik HEALTH 350.1.13.10 it y of [place] 4.2.7.2.686 Henry as DONTE?BLEA [phone] [address] OFFICE [facility] 2021-12-23 2021-12-23 Orders Doctor JUAN 1.2.840.114 [id number] Univers 00:00:00 00:00:00 Only Unassigned, JARROD 350.1.13.10 ity of [place] [facility] 4.2.7.2.686 Henry as [phone] [address] 2021-12-22 2021-12-22 [facility] 1.2.840.114 [id number] Univers 00:00:00 00:00:00 Arik HEALTH 350.1.13.10 it y of [place] 4.2.7.2.686 Henry as DONTE?BLEA [phone] [address] OFFICE [facility] 2021-12-22 2021-12-22 Telephone [facility] 1.2.840.114 [id number] Univers 00:00:00 00:00:00 [facility] HEALTH 350.1.13.10 it y of [place] 4.2.7.2.686 Henry as DONTE?BLEA [phone] [address] OFFICE [facility] 2021-12-22 2021-12-22 Patient [facility] 1.2.840.114 [id number] Univers 00:00:00 00:00:00 Secure Msg Arik HEALTH 350.1.13.10 ity of [place] 4.2.7.2.686 Henry as DONTE?BLEA [phone] [address] OFFICE [facility] 2021-12-04 2021-12-04 [facility] 1.2.840.114 [id number] Univers 00:00:00 00:00:00 Arik HEALTH 350.1.13.10 it y of [place] 4.2.7.2.686 Henry as DONTE?BLEA [phone] In dread MELVIN [address] [place] [address] OFFICE [facility] 2021-11-26 2021-11-26 Outpatient R KIZZY SANTOS [facility] [id number] Univers 13:20:00 16:16:11 KIZZY SANTOS y of [facility] 2021-11-26 2021-11-26 [facility] 1.2.840.114 [id number] Univers 13:20:00 16:16:11 Visit MULTISPEC 350.1.13.10 ity of [facility] 4.2.7.2.686 [facility] [phone] [facility] AND [address] [facility] 2021-11-26 2021-11-26 Outpatient R KIZZY SANTOS [facility] [id number] Univers 13:20:00 16:16:[address] of [facility] [place] 2021-11-26 2021-11-26 Outpatient R IKZZY SANOTS [facility] [id number] Univers 13:20:00 13:20:[address] K[address]Y S[address] of [facility] [place] 2021-11-26 2021-11-26 Refill [facility] 1.2.840.114 [id number] Univers 00:00:00 00:00:00 [facility] 350.1.13.10 it y of [place] 4.2.7.2.686 Henry as DONTE?BLEA [phone] In dread [address] OFFICE [facility] 2021-11-25 2021-11-25 [facility] ERT [id number] Univers 14:54:00 15:38:00 CHRISTOPHER it y of [facility] [place] 2021-11-25 2021-11-25 Emergency [facility] 1.2.976.909 [id number] Univers 14:54:00 15:38:00 Christopher [place] 350.1.13.10 ity of [place] 4.2.7.2.686 [facility] [phone] [address] 2021-11-25 2021-11-25 Telephone [facility] 1.2.840.114 [id number] Univers 00:00:00 00:00:00 [facility] 350.1.13.10 it y of [place] 4.2.7.2.686 Henry as DONTE?BLEA [phone] [address] MEDICAL OFFICE [facility] 2021-11-25 2021-11-25 Patient [facility] 1.2.840.114 [id number] Univers 00:00:00 00:00:00 Secure Msg [facility] 350.1.13.10 ity of [place] 4.2.7.2.686 Henry as DONTE?BLEA [id number] [address] OFFICE [facility] 2021-11-18 2021-11-18 Outpatient [facility] [id number] Univers 14:00:00 14:24:37 [facility] 2021-11-18 2021-11-18 Office [facility] 1.2.840.114 [id number] Univers 14:00:00 14:15:00 Visit [facility] 350.1.13.10 it y of [place] 4.2.7.2.686 Henry as DONTE?BLEA [phone] [address] OFFICE [facility] 2021-11-18 2021-11-18 Outpatient R [facility] [id number] Univers 14:00:00 14:00:00 [facility] 2021-11-11 2021-11-11 Outpatient R ANGELO [facility] [id number] Univers 13:30:00 13:30:00 OLIVA [facility] 2021-11-03 2021-11-03 Refill [facility] 1.2.840.114 [id number] Univers 00:00:00 00:00:00 [facility] [id number] it y of [place] [id number] Henry as DONTE?BLEA [phone] [address] OFFICE [facility] 2021-10-27 2021-10-27 [facility] 1.2.840.114 [id number] Univers 00:00:00 00:00:00 Secure Msg Emilia [facility] [id number] ity of [place] [id number] [place] as DONTE?BLEA [phone] [facility] [address] OFFICE [facility] 2021-10-15 2021-10-15 [facility] 1.2.840.114 [id number] Univers 00:00:00 00:00:00 Arik PESCADERO [id number] i ty of [place] [id number] [place] [phone] [address] 2021-10-14 2021-10-14 Keily R ANGELO [facility] [id number] Univers 14:00:00 14:00:00 OLIVA ellis [facility] 2021-10-09 2021-10-09 [facility] 1.2.840.114 [id number] Univers 00:00:00 00:00:00 [facility] [id number] it y of [place] [id number] Henry as DONTE?BLEA [phone] [address] 2021-10-08 2021-10-08 [facility] 1.2.840.114 [id number] Univers 00:00:00 00:00:00 [facility] [id number] it y of [place] [id number] [place] as DONTE?BLEA [phone] [address] 2021-10-07 2021-10-07 [facility] 1.2.840.114 [id number] Univers 00:00:00 00:00:00 [facility] [id number] it y of [place] [id number] [place] as DONTE?BLEA [phone] [address] 2021-10-02 2021-10-02 [facility] 1.2.840.114 [id number] Univers 00:00:00 00:00:00 [facility] [facility] 350.1.13.10 it y of [place] 4.2.7.2.686 Henry as DONTE?BLEA [phone] In dread MELVIN 044 [facility] OFFICE [facility] 2021-09-18 2021-09-18 Outpatient Campos SARAHI [facility] [id number] Univers 13:13:16 23:59:00 CARMEN itleonard [facility] 2021-09-18 2021-09-18 Office [facility] 1.2.840.114 [id number] Univers 14:30:00 15:00:00 Visit [facility] 350.1.13.10 it y of [place] 4.2.7.2.686 Henry as DONTE?BLEA [phone] In nancyks NGOZI 198 [facility] OFFICE [facility] 2021-09-18 2021-09-18 Outpatient Campos MCCLAIN [facility] [id number] Univers 14:30:00 14:03:55 [facility] 2021-09-18 2021-09-18 Outpatient Campos [facility] [id number] Univers 14:30:00 14:03:55 [facility] 2021-09-18 2021-09-18 Outpatient R AMIE [facility] [id number] Univers 11:00:00 11:00:[address] [facility] 2021-09-18 2021-09-18 Outpatient R AMIE [facility] [id number] Univers 11:00:00 11:00:00 [facility] 2021-09-17 2021-09-17 [facility] 1.2.840.114 [id number] Univers 00:00:00 00:00:00 Secure Msg [facility] 350.1.13.10 ity of Edward [place] 4.2.7.2.686 Henry as DONTE?BLEA [phone] In nancyks NGOZI 044 [facility] OFFICE [facility] 2021-09-12 2021-09-12 Ref[facility] 1.2.840.114 [id number] Univers 00:00:00 00:00:00 [facility] 350.1.13.10 it y of [place] 4.2.7.2.686 Henry as DONTE?BLEA [phone] [address] MEDICAL OFFICE [facility] 2021-09-11 2021-09-11 Outpatient R STEPHENS, [facility] [id number] Univers 14:00:00 14:00:00 OLIVA [facility] 2021-09-11 2021-09-11 Outpatient R ANGELO [facility] [id number] Univers 14:00:00 14:00:00 OLIVA [facility] 2021-09-11 2021-09-11 [facility] 1.2.840.114 [id number] Univers 00:00:00 00:00:00 [facility] 350.1.13.10 it y of [place] 4.2.7.2.686 Henry as DONTE?BLEA [id number] [address] OFFICE [facility] 2021-09-11 2021-09-11 Madison [facility] 1.2.840.114 [id number] Univers 00:00:00 00:00:00 [facility] 350.1.13.10 it y of [place] 4.2.7.2.686 Henry as DONTE?BLEA [phone] [address] 2021-09-10 2021-09-10 Outpatient R AMIE [facility] [id number] Univers 15:00:00 15:00:00 OLYA [facility] 2021-09-10 2021-09-10 Outpatient R AMIE [facility] [id number] Univers 15:00:00 15:00:00 OLYA [facility] 2021-09-03 2021-09-03 Outpatient R NATALY [facility] [id number] Univers 13:30:00 13:30:00 TEO leonard [facility] 2021-08-26 2021-08-26 [facility], Ang - Db [facility] 1.2.840.1 14 [id number] Univers 14:00:00 14:15:00 Visit Demar Arik [facility] 350.1.13 .10 ity of [place] 4.2.7.2.686 Henry as DONTE?BLEA [phone] In dread MELVIN [address] [place] MEDICAL OFFICE [facility] 2021-08-26 2021-08-26 Office Demar [facility] 1.2.840.114 [id number] Univers 13:15:00 14:12:01 Visit [facility] 350.1.13.10 it y of Edward [facility] 4.2.7.2.686 Henry as DONTE?BLEA [phone] In dread MELVIN 044 [facility] OFFICE [facility] 2021-08-26 2021-08-26 Outpatient R DEMAR [facility] [id number] Univers 13:15:00 14:12:01 [facility] 2021-08-26 2021-08-26 Outpatient R DEMAR [facility] [id number] Univers 14:00:00 14:00:00 [facility] 2021-08-26 2021-08-26 Outpatient R DEMAR [facility] [id number] Univers 13:15:00 13:15:00 [facility] 2021-08-21 2021-08-21 Patient [facility] 1.2.840.114 [id number] Univers 00:00:00 00:00:00 Secure Msg Emilia Jones [facility] 350.1.13.10 ity of [place] 4.2.7.2.686 Henry as DONTE?BLEA [phone] In dread MELVIN [address] [place] [address] OFFICE [facility] 2021-08-19 2021-08-19 Outpatient R DEMAR [facility] [id number] Univers 08:00:00 08:00:00 [facility] 2021-08-19 2021-08-19 Refill Doctor [facility] 1.2.840.114 [id number] Univers 00:00:00 00:00:00 Unassigned, HEALTH 350.1.13.10 ity of [place] 4.2.7.2.686 Henry as DONTE?BLEA [phone] In dical KNEY 044 [facility] OFFICE [facility] 2021-08-19 2021-08-19 Telephone [facility] 1.2.840.114 [id number] Univers 00:00:00 00:00:00 [facility] 350.1.13.10 it y of Jonathan [facility] 4.2.7.2.686 Henry as DONTE?BLEA [phone] [address] 2021-08-11 2021-08-11 Outpatient Campos [facility] [id number] Univers 15:00:00 15:00:00 [facility] 2021-08-08 2021-08-08 Outpatient Campos BENZ [facility] [id number] Univers 15:00:00 15:00:00 [facility] 2021-07-29 2021-07-29 Outpatient Campos BENZ [facility] [id number] Univers 13:00:00 13:00:00 [facility] 2021-07-21 2021-07-21 [facility] 1.2.840.114 [id number] Univers 00:00:00 00:00:00 [facility] 350.1.13.10 it y of Jonathan [facility] 4.2.7.2.686 Henry as DONTE?BLEA [phone] [address] 2021-07-09 2021-07-09 Outpatient Campos BENZ [facility] [id number] Univers 13:00:00 13:00:00 ARIK [facility] 2021-07-09 2021-07-09 Outpatient Campos BENZ [facility] [id number] Univers 13:00:00 13:00:00 ARIK [facility] 2021-07-09 2021-07-09 Outpatient Campos BENZ [facility] [id number] Univers 13:00:00 13:00:00 [facility] 2021-07-09 2021-07-09 Outpatient Campos BENZ [facility] [id number] Univers 13:00:00 13:00:00 [facility] 2021-06-24 2021-06-24 Orders Doctor JUAN 1.2.840.114 [id number] Univers 00:00:00 00:00:00 Only Unassigned, JARROD 350.1.13.10 ity of [place] [facility] 4.2.7.2.686 Henry as [phone] [facility] [address] [place] 2021-05-22 2021-05-22 Refill [facility] 1.2.840.114 [id number] Univers 00:00:00 00:00:00 [facility] 350.1.13.10 it y of Edward [facility] 4.2.7.2.686 Henry as PROFESSIO [phone] [address] OFFICE [facility] 2021-05-17 2021-05-17 Refill [facility] 1.2.840.114 [id number] Univers 00:00:00 00:00:00 [facility] 350.1.13.10 it y of Edward [place] 4.2.7.2.686 Henry as PROFESSIO [phone] [address] 2021-05-13 2021-05-13 Patient [facility] 1.2.840.114 [id number] Univers 00:00:00 00:00:00 Secure Msg [facility] 350.1.13.10 ity of [place] 4.2.7.2.686 Henry as DONTE?BLEA [phone] [address] OFFICE [facility] 2021-05-09 2021-05-09 Transition KALYANI Rosenberg 1.2.840.114 [id number] Univers 00:00:00 00:00:00 of Care Trinidad M WILLS 350.1.13.10 i ty of [place].2.[place] [phone] [facility] [address] 2021-05-04 2021-05-08 Inpatient X ANNETTE, [facility] MARGIE [id number] Univers 19:48:00 14:30:00 YOKO ity of [facility] [place] 2021-05-04 2021-05-08 [facility] Sean Meléndez 1.2.840. 114 [id number] Univers 19:48:00 14:30:00 [facility] 350.1.13 .10 ity of [facility] 4.2.7.2.686 Yoko Cheema [phone] Medical [address] 2021-05-04 2021-05-08 Inpatient X ANNETTE [facility] [id number] Univers 19:48:00 14:30:00 YOKO [facility] 2021-05-07 2021-05-07 Outpatient R DEMAR [facility] [id number] Univers 15:00:00 15:00:00 ARIK [facility] 2021-05-01 2021-05-01 Outpatient R ANGELO [facility] [id number] Univers 09:30:00 09:30:00 OLIVA [facility] 2021-04-30 2021-04-30 Patient Juma Mcdaniels [facility] 1.2.840.114 [id number] Univers 00:00:00 00:00:00 Secure Msg JOSE 350.1.13.10 ity of [facility] 4.2.7.2.686 [facility] [phone] [facility] [address] 2021-04-29 2021-04-29 Outpatient R JUMA MCDANIELS [facility] [id number] Univers 16:00:00 16:00:00 ity [facility] 2021-04-25 2021-04-25 Outpatient R JUMA MCDANIELS [facility] [id number] Univers 14:00:00 14:00:00 ity [facility] 2021-04-25 2021-04-25 Outpatient R DEMAR [facility] [id number] Univers 13:00:00 13:00:00 ARIK [facility] 2021-04-24 2021-04-24 Patient Demar [facility] 1.2.840.114 [id number] Univers 00:00:00 00:00:00 Secure Msg Arik HEALTH 350.1.13.10 ity of Jonathan [place] 4.2.7.2.686 Henry as DONTE?BLEA [phone] In dread MELVIN [address] [place] [address] MEDICAL OFFICE [facility] 2021-04-24 2021-04-24 [facility] 1.2.840.114 [id number] Univers 00:00:00 00:00:00 [facility] 350.1.13.10 it y of [place] 4.2.7.2.686 Henry as DONTE?BLEA [phone] In dread MELVIN [address] [place] [address] OFFICE [facility] 2021-04-09 2021-04-09 Outpatient Davar_P VFP VFP [id number] [facility] 03:51:00 03:51:00 [id number] Family Practic e 2021-04-08 2021-04-08 Patient [facility] 1.2.840.114 [id number] Univers 00:00:00 00:00:00 Secure Msg [facility] 350.1.13.10 ity of [place] 4.2.7.2.686 Henry as DONTE?BLEA [phone] In dread MELVIN [address] [place] [address] OFFICE [facility] 2021-04-02 2021-04-02 Outpatient Campos BENZ [facility] [id number] Univers 14:00:00 14:29:25 [facility] 2021-04-02 2021-04-02 Office [facility] 1.2.840.114 [id number] Univers 14:00:00 14:15:00 Visit [facility] 350.1.13.10 it y of [place] 4.2.7.2.686 Henry as DONTE?BLEA [phone] In dread MELVIN [address] [place] [address] OFFICE [facility] 2021-04-02 2021-04-02 Outpatient Campos BENZ [facility] [id number] Univers 14:00:00 14:00:00 ARIK [facility] 2021-04-02 2021-04-02 Outpatient Campos BENZ [facility] [id number] Univers 14:00:00 14:00:00 ARIK [facility] 2021-04-02 2021-04-02 Outpatient Campos BENZ [facility] [id number] Univers 14:00:00 14:00:00 [facility] 2021-04-01 2021-04-01 Telephone Angelo [facility] 1.2.840.114 [id number] Univers 00:00:00 00:00:00 Oliva TREVIZO 350.1.13.10 i ty of [place]2.7.2.[place] PROF[place] [phone] In dical [facility] 188 [facility] 2021-03-30 2021-03-30 Nurse JUAN Darnell 1.2.840.114 [id number] Univers 00:00:00 00:00:00 Triage Dakotah GARAY 350.1.13.10 ity [facility] 4.2.7.2.686 Henry as [phone] [address] 2021-03-28 2021-03-28 Outpatient R [facility] [id number] Univers 10:30:00 10:30:[facility] 2021-03-27 2021-03-27 Outpatient R [facility] [id number] Univers 15:00:00 15:00:[facility] 2021-03-27 2021-03-27 [facility] 1.2.840.114 [id number] Univers 00:00:00 00:00:00 Secure Msg Elle [place] 350.1.13.10 ity [facility] 4.2.7.2.686 [place] PROF[place] [phone] In dical [address] 2021-03-27 2021-03-27 [facility] 1.2.840.114 [id number] Univers 00:00:00 00:00:00 Management Elle [place] 350.1.13.10 ity [facility] 4.2.7.2.686 [place] [phone] In dical NAL 134 [facility] 2021-03-25 2021-03-25 [facility] [id number] Univers 15:15:00 15:15:00 [facility] 2021-03-23 2021-03-24 Inpatient X [facility] [id number] Univers 06:56:00 17:35:00 ELLE ellis [facility] 2021-03-23 2021-03-24 [facility] 1.2.840.114 [id number] Univers 06:56:00 17:35:00 Encounter Elle Maria JOSELINE 350.1.13.10 ity of [place] 4.2.7.2.686 [facility] [phone] [place] [address] [place] 2021-03-23 2021-03-23 Anesthesia [facility] 1.2.840.114 [id number] Univers 12:00:00 19:29:00 Event Subhash Panchal [place] 350.1.13.10 i ty of [place] 4.2.7.2.686 [facility] [phone] [place] 059[address] [place] 2021-03-23 2021-03-23 Inpatient X [facility] [id number] Univers 06:56:00 06:56:00 [facility] 2021-03-23 2021-03-23 Nurse JUAN Cortes 1.2.840.114 [id number] Univers 00:00:00 00:00:00 Triage Renettazandra GARAY 350.1.13.10 it y of HOSPITAL 4.2.7.2.686 [place] as [phone] [facility] [address] [place] 2021-03-23 2021-03-23 Orders Doctor JUAN 1.2.840.114 [id number] Univers 00:00:00 00:00:00 Only Unassigned, JARROD 350.1.13.10 ity of [place] [facility] 4.2.7.2.686 Henry as [phone] [facility] [address] [place] 2021-03-14 2021-03-14 Outpatient R AD, [facility] [id number] Univers 15:30:00 16:54:39 ELLE ellis [facility] 2021-03-14 2021-03-14 [facility] 1.2.840.114 [id number] Univers 15:30:00 16:54:39 Elle TREVIZO 350.1.13.10 ity of Visit [place] 4.2.7.2.686 [place] PROFESS[place] [phone] In dical NAL [address] [facility] 2021-03-14 2021-03-14 Outpatient R CARLOS [facility] [id number] Univers 15:30:00 15:30:00 ELLE ity [facility] 2021-03-12 2021-03-12 Outpatient P [facility] [id number] Univers 15:00:00 15:00:00 ity [facility] 2021-03-12 2021-03-12 Patient Doctor JUAN 1.2.840.114 [id number] Univers 00:00:00 00:00:00 Secure Msg Unassigned, JARROD 350.1.13.10 ity of [facility] 4.2.7.2.686 Henry as [phone] [facility] [address] [place] 2021-03-11 2021-03-11 Outpatient [facility] [id number] Univers 13:15:00 13:15:00 [facility] 2021-03-11 2021-03-11 [facility] [id number] Univers 13:15:00 13:15:00 [facility] 2021-03-11 2021-03-11 Office [facility] 1.2.840.114 [id number] Univers 10:30:59 10:45:59 Visit [facility] 350.1.13.10 it y of Jonathan [facility] 4.2.7.2.686 Henry as DONTE?BLEA [phone] In dical KNEY [address] [place] MEDICAL OFFICE BUILDING 2021-03-09 2021-03-09 Outpatient X JUMA MCDANIELS [facility] [id number] Univers 09:27:00 12:30:00 ity [facility] 2021-03-09 2021-03-09 Emergency Juma Mcdaniels [facility] 1.2.840.114 [id number] Univers 09:27:00 12:30:00 JOSELINE 350.1.13.10 i ty of [place] 4.2.7.2.686 [place] [phone] [facility] [address] [place] 2021-03-09 2021-03-09 Nurse JUAN Cortes 1.2.840.114 [id number] Univers 00:00:00 00:00:00 Triage Renetta GARAY 350.1.13.10 it y of HOSPITAL 4.2.7.2.686 [place] as [phone] [facility] [address] [place] 2021-03-07 2021-03-07 [facility] 1.2.840.114 [id number] Univers 15:34:54 16:24:15 Elle TREVIZO 350.1.13.10 ity of Visit [place] 4.2.7.2.[address] [place] [address] [facility] [phone] [facility] 134 [facility] 2021-03-07 2021-03-07 Outpatient R [facility] [id number] Univers 15:30:00 16:24:15 ELLE ity of [facility] [place] 2021-03-07 2021-03-07 [facility] 1.2.840.114 [id number] Univers 00:00:00 00:00:00 [facility] 350.1.13.10 it y of [facility] 4.2.7.2.686 [place] as DONTE?BLEA [phone] [address] MEDICAL OFFICE [facility] 2021-03-06 2021-03-06 [facility] 1.2.840.114 [id number] Univers 00:00:00 00:00:00 [facility] 350.1.13.10 [facility] 4.2.7.2.686 [place] as DONTE?BLEA [phone] [address] OFFICE [facility] 2021-03-04 2021-03-04 Outpatient P CHLOE REESE [facility] [id number] Univers 00:27:00 14:38:[address] [facility] [place] 2021-03-04 2021-03-04 Hospital Chloe Reese [facility] 1.2.840.114 [id number] Univers 00:27:00 14:38:00 Encounter [place] TREVIZO 350.1.13.10 ity of [place] 4.2.7.2.686 [place] [id number] [address] 2021-02-27 2021-02-27 Refill Ad, [facility] 1.2.840.114 [id number] Univers 00:00:00 00:00:00 Elle L [place] 350.1.13.10 ity of [place] 4.2.7.2.686 [place] [phone] In dical NAL [address] [place] [address] 2021-02-27 2021-02-27 Refill Ad, [facility] 1.2.840.114 [id number] Univers 00:00:00 00:00:00 Elle L [place] 350.1.13.10 ity of [place] 4.2.7.2.686 [place] [phone] In dical NAL [address] [place] [address] 2021-02-27 2021-02-27 Refill Ad, [facility] 1.2.840.114 [id number] Univers 00:00:00 00:00:00 Elle L [place] 350.1.13.10 ity of [facility] 4.2.7.2.686 [place] [phone] In dic[address] 2021-02-26 2021-02-26 [facility] [id number] Univers 12:08:00 18:00:00 ELLE ity of [facility] [place] 2021-02-26 2021-02-26 [facility] 1.2.840.114 [id number] Univers 12:08:00 18:00:00 Encounter Elle L [place] 350.1.13.10 ity of [place] 4.2.7.2.[place] [id number] [address] 2021-02-26 2021-02-26 Outpatient R AD, [facility] [id number] Univers 16:00:00 16:00:00 ELLE ity of [facility] [place] 2021-02-26 2021-02-26 [facility] 1.2.632.218 [id number] Univers 00:00:00 00:00:00 Elle L [place] 350.1.13.10 ity of [facility] 4.2.7.2.686 [place] [id number] [address] 2021-02-14 2021-02-14 Telephone [facility] 1.2.840.114 [id number] Univers 00:00:00 00:00:00 [facility] 350.1.13.10 it y of Jonathan [facility] 4.2.7.2.686 Henry as DONTE?BLEA [phone] [facility] 044 [facility] 2021-02-07 2021-02-07 Routine Ad, [facility] 1.2.840.114 [id number] Univers 15:39:01 16:45:30 Elle L [facility] 350.1.13.10 ity of Visit [place] 4.2.7.2.686 [place] [phone] [address] 2021-02-07 2021-02-07 Outpatient R AD, [facility] [id number] Univers 15:30:00 16:45:30 ELLE [facility] 2021-02-06 2021-02-06 [facility] [id number] Univers 16:00:00 16:00:00 ELLE [facility] 2021-02-04 2021-02-04 Telephone [facility] 1.2.539.524 [id number] Univers 00:00:00 00:00:00 Elle Maria [place] 350.1.13.10 ity of [place] 4.2.7.2.686 [place] [phone] [address] 2021-02-03 2021-02-03 [facility], Ang - Db [facility] 1.2.840.1 14 [id number] Univers 13:21:16 13:36:16 Visit Adguzman, Elle Maria HEALTH 350.1.13.10 ity of [place] 4.2.7.2.686 Henry as DONTE?BLEA [phone] [facility] 353 [facility] 2021-02-03 2021-02-03 Outpatient R AD, [facility] [id number] Univers 13:30:00 13:30:00 ELLE ellis [facility] 2021-02-03 2021-02-03 Telephone [facility] 1.2.840.114 [id number] Univers 00:00:00 00:00:00 [facility] 350.1.13.10 it y of Jonathan [facility] 4.2.7.2.686 Henry as DONTE?BLEA [phone] In dread MELVIN 044 [facility] OFFICE [facility] 2021-01-31 2021-01-31 Outpatient P [facility] [id number] Univers 16:16:00 17:53:00 ELLE ellis [facility] 2021-01-31 2021-01-31 [facility] 1.2.840.114 [id number] Univers 16:16:00 17:53:00 Encounter Elle TREVIZO 350.1.13.10 ity of [place] 4.2.7.2.686 [place] [id number] [address] 2021-01-31 2021-01-31 Outpatient R [facility] [id number] Univers 10:30:00 10:30:00 ARIK ellis [facility] 2021-01-30 2021-01-30 [facility] 1.2.482.715 [id number] Univers 00:00:00 00:00:00 Elle TREVIZO 350.1.13.10 ity of [facility] 4.2.7.2.686 [place] [phone] In dread NAL 134 [facility] 2021-01-30 2021-01-30 [facility] 1.2.840.114 [id number] Univers 00:00:00 00:00:00 [facility] 350.1.13.10 it y of Jonathan [place] 4.2.7.2.686 Henry as PROFESSIO [id number] In dread COTE [address] [place] OFFICE [facility] 2021-01-29 2021-01-29 [facility] 1.2.840.114 [id number] Univers 00:00:00 00:00:00 Arik HEALTH 350.1.13.10 it y of Jonathan [facility] 4.2.7.2.686 Henry as PROFESSIO [phone] In dical NAL 044 [facility] ONE 2021-01-27 2021-01-27 Outpatient R NATALY, [facility] [id number] Univers 13:00:00 13:00:00 TEO ity [facility] 2021-01-27 2021-01-27 Madison Benz, [facility] 1.2.840.114 [id number] Univers 00:00:00 00:00:00 [facility] 350.1.13.10 it y of Jonathan [facility] 4.2.7.2.686 Henry as PROFESSIO [phone] [address] ONE 2021-01-23 2021-01-23 Outpatient R AD, [facility] [id number] Univers 16:00:00 17:27:00 ELLE itleonard [facility] 2021-01-23 2021-01-23 Routine Adum, [facility] 1.2.840.114 [id number] Univers 15:56:29 17:27:00 Elle L [place] [id number] ity of [id number] [phone] [address] 2021-01-21 2021-01-21 Outpatient R AD, [facility] [id number] Univers 16:00:00 16:00:00 ELLE ity [facility] 2021-01-17 2021-01-17 Telephone Adum, [facility] [id number] Univers 00:00:00 00:00:00 Elle L [place] [id number] [id number] [phone] In dical nal [address] [place] [address] 2021-01-17 2021-01-17 Patient Adum, [facility] 1.2.840.114 [id number] Univers 00:00:00 00:00:00 Secure Msg Elle L [place] [id number] [id number] [phone] In dical nal [address] [facility] 2021-01-15 2021-01-15 Refill Demar, [facility] 1.2.840.114 [id number] Univers 00:00:00 00:00:00 [facility] [id number] it y of [place] [id number] [place] as Professio [phone] In dical nal 044 [facility] One 2021-01-13 2021-01-13 Refill Ad, [facility] 1.2.840.114 [id number] Univers 00:00:00 00:00:00 Elle Trevizo 350.1.13.10 it[place] of [place] [phone] In dical nal 134 [facility] 2021-01-02 2021-01-02 Telephone Ad, [facility] 1.2.031.041 [id number] Univers 00:00:00 00:00:00 Elle Trevizo 350.1.13.10 ity of [place] [phone] In dical nal [address] [place] [address] 2021-01-02 2021-01-02 Orders Doctor JUAN 1.2.840.114 [id number] Univers 00:00:00 00:00:00 Only Unassigned, JARROD 350.1.13.10 ity of [place] [facility] 4.2.7.2.686 [place] as [phone] [address] 2021-01-01 2021-01-01 Telephone Adum, [facility] 1.2.849.666 [id number] [id number] Univers 00:00:00 00:00:00 Elle Trevizo 350.1.13.10 it[place] of [place] [phone] In dical nal [address] [place] [address] 2021-01-01 2021-01-01 Refill Doctor [facility] 1.2.840.114 [id number] Univers 00:00:00 00:00:00 Unassigned, Health 350.1.13.10 ity of [place] 4.2.7.2.686 [place] as Professio [phone] In dicdhruv cote 0[address] [place] Office [facility] One 2020-12-24 2020-12-24 Laboratory Only, Ang Db Test [facility] 1.2.8 40.114 [id number] Univers 17:40:30 17:55:30 Only Adum, Elle L Health 350.1.13.10 ity of [place] 4.2.7.2.686 Henry as Donte?Blea [phone] In dread melvin [address] [place] [facility] 2020-12-24 2020-12-24 Routine Adum, [facility] 1.2.840.114 [id number] Univers 16:33:12 17:22:08 Elle Candace Anderson[place] 350.1.13.10 ity of Visit [place] ess[place] [phone] [facility] 134 [facility] 2020-12-24 2020-12-24 Outpatient R AD, [facility] [id number] Univers 16:00:00 16:00:00 ELLE ity of [facility] [place] 2020-12-17 2020-12-17 Patient [facility] 1.2.840.114 [id number] Univers 00:00:00 00:00:00 Secure Msg [facility] 350.1.13.10 ity of [place] 4.2.7.2.686 [place] as Professio [phone] [facility] kera [address] [place] [address] Office [facility] One 2020-12-17 2020-12-17 Telephone [facility] 1.2.840.114 [id number] Univers 00:00:00 00:00:00 [facility] 350.1.13.10 it y of [place] 4.2.7.2.686 [place] as Donte?Blea [phone] In dread melvin 044 [facility] Office Building 2020-12-10 2020-12-10 Telephone [facility] 1.2.971.966 9502 [id number] Univers 00:00:00 00:00:00 Elle L [place] 350.1.13.10 it[place] of [place] [phone] In dicks nal 134 [facility] 2020-12-10 2020-12-10 Nurse ClayVioletta 1.2.840.114 87 [id number] Univers 00:00:00 00:00:00 Triage JARROD 350.1.13.10 it y of HOSPITAL 4.2.7.2.686 [place] as [phone] [address] 2020-12-10 2020-12-10 Violetta Clay 1.2.840.114 87 [id number] Univers 00:00:00 00:00:00 Triage JARROD 350.1.13.10 it y of HOSPITAL 4.2.7.2.686 [place] as [phone] [address] 2020-12-04 2020-12-04 [facility] 1.2.840.114 [id number] 065 Univers 00:00:00 00:00:00 [facility] Health 350.1.13.10 it y of [place] 4.2.7.2.686 [place] as Professio [phone] [facility] 044 [facility] 2020-12-04 2020-12-04 [facility] 1.2.840.114 [id number] 065 Univers 00:00:00 00:00:00 [facility] Health 350.1.13.10 it y of [place] 4.2.7.2.686 [place] as Professio [phone] [facility] nal 044 [facility] 2020-12-03 2020-12-03 [facility] 1.2.840.114 [id number] 509 Univers 00:00:00 00:00:00 Arik Health 350.1.13.10 it y of [place] 4.2.7.2.686 [place] as Professio [phone] [facility] nal [address] [place] [address] One 2020-12-03 2020-12-03 [facility] 1.2.840.114 [id number] 509 Univers 00:00:00 00:00:00 [facility] Health 350.1.13.10 it y of [place] 4.2.7.2.686 [place] as Professio [phone] In dical nal [address] One 2020-12-02 2020-12-02 [facility] 1.2.840.114 [id number] [id number] Univers 16:28:00 19:00:00 Encounter Cam [place] 350.1.13.10 ity of [place].2.[place] [phone] [facility] [address] [place] 2020-12-02 2020-12-02 [facility] 1.2.840.114 [id number] [id number] Univers 16:28:00 19:00:00 Encounter Cam [place] 350.1.13.10 ity of [place].2.[place] [phone] [facility] [address] [place] 2020-12-02 2020-12-02 Nurse Ayaka Palacios 1.2.840.114 87 [id number] Univers 00:00:00 00:00:00 Triage JARROD 350.1.13.10 it y of HOSPITAL 4.2.7.2.686 [place] as [phone] [facility] [address] 2020-12-02 2020-12-02 Orders Doctor JUAN 1.2.840.114 [id number] Univers 00:00:00 00:00:00 Only Unassigned, JARROD 350.1.13.10 ity of [place] HOSPITAL 4.2.7.2.686 [place] as [phone] [facility] [address] 2020-12-02 2020-12-02 Refill Hugh [facility] 1.2.051.179 [id number] [id number] Univers 00:00:00 00:00:00 Cam [place] 350.1.13.10 i ty of [place] [phone] In dical nal [address] 2020-12-02 2020-12-02 [facility] 1.2.840.114 [id number] Univers 00:00:00 00:00:00 [facility] 350.1.13.10 it y of [place] 4.2.7.2.686 [place] as Professio [phone] In dical nal 044 [facility] 2020-12-02 2020-12-02 Ayaka Ennis 1.2.840.114 87 [id number] Univers 00:00:00 00:00:00 Triage JARROD 350.1.13.10 it y of HOSPITAL 4.2.7.2.686 [place] as [phone] [facility] [address] [place] 2020-12-02 2020-12-02 Orders Doctor JUAN 1.2.840.114 [id number] Univers 00:00:00 00:00:00 Only Unassigned, JARROD 350.1.13.10 ity of [place] HOSPITAL 4.2.7.2.686 [place] as [phone] [address] 2020-12-02 2020-12-02 RefChloe Sweet [facility] 1.2.613.477 [id number] 3124 Univers 00:00:00 00:00:00 Cam [place] 350.1.13.10 i ty of [place] [phone] In dicks nal 134 [facility] 2020-12-02 2020-12-02 Refdb Benz [facility] 1.2.840.114 [id number] 467 Univers 00:00:00 00:00:00 [facility] 350.1.13.10 it y of [facility] 4.2.7.2.686 [place] as Professio [phone] [facility] 044 [facility] 2020-12-01 2020-12-01 Ayaka Ennis 1.2.840.114 87 [id number] Univers 00:00:00 00:00:00 Triage JARROD 350.1.13.10 it y of HOSPITAL 4.2.7.2.686 [place] as [phone] [address] 2020-12-01 2020-12-01 Ayaka Ennis 1.2.840.114 87 [id number] Univers 00:00:00 00:00:00 Triage JARROD 350.1.13.10 it y of HOSPITAL 4.2.7.2.686 [place] as [phone] [address] 2020-11-27 2020-11-27 Outpatient R ADUM, [facility] [id number] Univers 14:00:00 14:00:00 ELLE ity of [facility] 2020-11-26 2020-11-26 Routine Adum, [facility] 1.2.840.114 [id number] Univers 15:59:55 17:26:28 Elle L [place] 350.1.13.10 ity of Visit [place] [phone] In dical [address] 2020-11-26 2020-11-26 Routine Adum, [facility] 1.2.840.114 [id number] Univers 15:59:55 17:26:28 Elle L [place] 350.1.13.10 ity of Visit [place].2.[place] [phone] In dic[address] 2020-11-26 2020-11-26 Mothers Helper Ultrasound, [facility] 1.2 .840.114 [id number] Univers 14:06:00 15:21:00 Visit Adam Reich ROLLER CLEANER 350.1.13.10 ity of [facility] 4.2.7.2.686 [place] as MATERNAL [phone] [facility] CH[facility] [address] [place] [address] 2020-11-26 2020-11-26 Mothers Helper Ultrasound, [facility] 1.2 .840.114 [id number] Univers 14:06:00 15:21:00 Visit Adam Reich ROLLER CLEANER 350.1.13.10 ity of [facility] 4.2.7.2.686 [place] as MATERNAL [phone] [facility] ical & CHILD [address] [place] [address] 2020-11-26 2020-11-26 Outpatient P [facility] [id number] Univers 14:00:00 14:00:00 ity [facility] 2020-11-26 2020-11-26 Telephone Adum, [facility] 1.2.495.297 [id number] Univers 00:00:00 00:00:00 Elle Trevizo 350.1.13.10 ity of [place] [phone] In dical nal 134 [facility] 2020-11-26 2020-11-26 Telephone Ad, [facility] 1.2.372.278 [id number] [id number] Univers 00:00:00 00:00:00 Elle Trevizo 350.1.13.10 ity of [place] [phone] In dical nal 134 [facility] 2020-11-18 2020-11-18 [facility] 1.2.840.114 [id number] 877 [facility] 00:00:00 00:00:00 [facility] 350.1.13.10 it y of Jonathan [place] 4.2.7.2.686 [place] as Professio [phone] [facility] 044 [facility] One 2020-11-11 2020-11-11 Telephone Ad, [facility] 1.2.783.243 [id number] Univers 00:00:00 00:00:00 Elle Trevizo 350.1.13.10 ity of [place] [phone] [facility] 134 [facility] 2020-11-09 2020-11-09 [facility] Chloe Reese [facility] 1.2.840.114 [id number] Univers 16:44:00 20:20:00 Encounter Raleigh Trevizo 350.1.13.10 ity of [place]2.[place].2.[place] [phone] [facility] [address] [place] 2020-11-09 2020-11-09 Nurse JUAN Chun 1.2.840.114 [id number] Univers 00:00:00 00:00:00 Triage Karina JARROD 350.1.13.10 it y of [facility] 4.2.7.2.686 [place] as [phone] [facility] [address] [place] 2020-11-07 2020-11-07 [facility] 1.2.426.903 [id number] 9637 Univers 00:00:00 00:00:00 Elle Trevizo 350.1.13.10 ity of [place] [phone] Me dical nal 134 [facility] 2020-11-05 2020-11-05 Office Sarahi [facility] 1.2.840.114 [id number] Univers 15:51:46 16:06:46 Visit [facility] 350.1.13.10 it y of Surgical 4.2.7.2.686 [place] as Specialti [phone] In dical es 198 [facility] 2020-11-05 2020-11-05 Outpatient R SARAHI [facility] [id number] Univers 15:45:00 15:45:00 CARMEN ity [facility] 2020-11-02 2020-11-02 Nurse JUAN Ca 1.2.840.114 [id number] Univers 00:00:00 00:00:00 Triage Helen ESTESY 350.1.13.10 it y of HOSPITAL 4.2.7.2.686 [place] as [phone] [facility] [address] [place] 2020-11-02 2020-11-02 Telephone Juma Mcdaniels [facility] 1.2.840.11 4 [id number] Univers 00:00:00 00:00:00 Jose 350.1.13.10 it y of Women's [place] [phone] [facility] [address] [place] 2020-10-29 2020-10-29 Mothers Helper 2, Adc Lab [facility] 1.2.840.114 [id number] Univers 14:07:34 14:22:34 Visit Adum, Elle Trevizo 350.1.13.10 ity of [place].2.[place] [phone] In dical nal 353 [facility] 2020-10-29 2020-10-29 Outpatient R [facility] [id number] Univers 14:00:00 14:00:00 ity [facility] 2020-10-29 2020-10-29 Madison Benz [facility] 1.2.840.114 [id number] Univers 00:00:00 00:00:00 [facility] 350.1.13.10 it y of [place] 4.2.7.2.686 [place] as Professio [phone] [facility] 044 [facility] One 2020-10-29 2020-10-29 Orders Doctor JUAN 1.2.840.114 [id number] Univers 00:00:00 00:00:00 Only Unassigned, JARROD 350.1.13.10 ity of [place] HOSPITAL 4.2.7.2.686 [place] as [phone] [facility] [address] [place] 2020-10-25 2020-10-25 [facility] 1.2.840.114 [id number] Univers 16:45:11 17:34:04 Elle Trevizo 350.1.13.10 ity of Visit [place] 4[place].2.[place] [phone] [facility] 134 [facility] 2020-10-25 2020-10-25 [facility] [id number] Univers 16:15:00 16:15:00 ELLE itleonard [facility] 2020-10-19 2020-10-19 [facility] 1.2.840.114 [id number] Univers 00:00:00 00:00:00 [facility] 350.1.13.10 it y of [place] 4.2.7.2.686 [place] as Professio [phone] [address] 2020-10-18 2020-10-18 Telemedici Fellow, Gal [facility] U NIVERSIT 1.2.840.114 [id number] Univers 14:46:12 15:16:12 ne Visit Shira Chaudhary HEALTH 350.1.13.10 ity of CLINICS 4.2.7.2.[place] [phone] [facility] [address] [place] 2020-10-18 2020-10-18 Outpatient R [facility] [id number] Univers 13:30:00 13:30:[address] [facility] 2020-10-16 2020-10-16 Telephone Ad, [facility] 1.2.037.036 [id number] Univers 00:00:00 00:00:00 Elle Candace Trevizo 350.1.13.10 ity of [place].2.[place] [phone] In dical nal 134 [facility] 2020-10-16 2020-10-16 Telephone Ad, [facility] 1.2.643.193 [id number] Univers 00:00:00 00:00:00 Elle Maria Joseline 350.1.13.10 ity of [place] 4[place]2.7.2.[place] [phone] In dical nal 134 [facility] 2020-10-08 2020-10-08 Orders Doctor JUAN 1.2.840.114 [id number] Univers 00:00:00 00:00:00 Only Unassigned, JARROD 350.1.13.10 ity of [place] [facility] 4.2.7.2.686 [place] as [phone] [facility] [address] [place] 2020-10-04 2020-10-04 Telemedici Fellow, Gal [facility] U [facility]ERS[facility] 1.2.840.114 [id number] Univers 08:16:56 08:46:56 ne Visit CloudAlyssia Weber HEALTH 350. 1.13.10 ity of CLINICS 4.2.7.2.[place] [phone] [facility] [address] 2020-10-04 2020-10-04 Outpatient R [facility] [id number] Univers 08:30:00 08:30:[address] [facility] 2020-10-02 2020-10-02 Telephone [facility] 1.2.840.114 [id number] Univers 00:00:00 00:00:00 [facility] 350.1.13.10 it y of Jonathan Joseline 4.2.7.2.686 [place] as Professio [phone] [facility] 0[address] [place] Office Building One 2020-09-27 2020-09-27 Routine Adum, [facility] 1.2.840.114 [id number] Univers 16:05:39 17:08:05 Elle Trevizo 350.1.13.10 ity of Visit [place].2.7.2.686 [place] [facility] [phone] In dical nal [address] [place] Building 2020-09-27 2020-09-27 Outpatient R CARLOS [facility] [id number] Univers 16:00:00 16:00:00 ELLE ellis [facility] 2020-09-25 2020-09-25 Telephone [facility] 1.2.840.114 [id number] Univers 00:00:00 00:00:00 [facility] 350.1.13.10 it y of [place] 4.2.7.2.686 [place] as Professio [phone] [facility] 044 [place] Office [facility] One 2020-09-24 2020-09-24 Outpatient R CARLOS [facility] [id number] Univers 14:00:00 14:00:00 ELLE ellis [facility] 2020-09-21 2020-09-21 Telemedici Myrtle Goldman [facility] 1.2.840 .114 [id number] Univers 17:30:22 18:00:22 ne Visit Unknown, [facility] HEALTH 350.1.13.1 0 [facility] 4.2.7.2.[place] [facility] [phone] [facility] Primary & [facility] 2020-09-21 2020-09-21 Outpatient R DRE, [facility] [id number] Univers 17:30:00 17:30:00 ATTENDING itleonard [facility] 2020 2020 Outpatient R DEMAR [facility] [id number] Univers 16:15:00 16:15:00 ARIK ellis [facility] 2020 2020 Telemedici [facility] 1.2.840.114 [id number] Univers 14:02:59 14:17:[address] [facility] 350.1.13.10 i ty of [place] 4.2.7.2.686 [place] as Professio [phone] [facility] 044 [place] Office [facility] One 2020 2020 Telephone [facility] 1.2.452.168 [id number] Univers 00:00:00 00:00:00 Elle Trevizo 350.1.13.10 ity of [place].2.[place] [phone] [facility] 134 [facility] 2020-09-19 2020-09-19 Outpatient R GONZALES [facility] [id number] Univers 17:40:00 17:40:00 JO ANNJOSE RAMON ity [facility] 2020-09-19 2020-09-19 Outpatient R [facility] [id number] Univers 16:30:00 16:30:00 ity [facility] 2020-09-19 2020-09-19 [facility] 1.2.840.114 [id number] Univers 00:00:00 00:00:00 [facility] 350.1.13.10 it y of [facility] 4.2.7.2.686 [place] as Professio [phone] [facility] 044 [facility] One 2020-09-19 2020-09-19 Nurse Martha Lang 1.2.840.114 [id number] Univers 00:00:00 00:00:00 Triage JARROD 350.1.13.10 it y of HOSPITAL 4.2.7.2.686 [place] as [phone] [address] 2020-09-19 2020-09-19 Nurse Violetta Clay 1.2.840.114 [id number] Univers 00:00:00 00:00:00 Triage JARROD 350.1.13.10 it y of HOSPITAL 4.2.7.2.686 [place] as [phone] [address] 2020-09-19 2020-09-19 Patient Adum, [facility] 1.2.840.114 [id number] Univers 00:00:00 00:00:00 Secure Msg Elle Trevizo 350.1.13.10 ity of [place].2.[place] [phone] In dical nal 134 [facility] 2020-09-19 2020-09-19 Telephone Clinic, [facility] UNIVERSIT 1.2.840.11 4 [id number] Univers 00:00:00 00:00:00 Neurology Y HEALTH 350.1.13.10 ity of Continuity CLINICS 4.2.7.2.686 [place] [phone] [facility] [address] [place] 2020-09-18 2020-09-18 Telephone Kalyani Martinez 1.2.328.062 [id number] Univers 00:00:00 00:00:00 Analiliameagan Wills 350.1.13.10 ity of [place].2.7.2.686 [place] [phone] [facility] [address] [place] 2020-09-18 2020-09-18 Telephone Demar [facility] 1.2.840.114 [id number] Univers 00:00:00 00:00:00 [facility] 350.1.13.10 it y of [place] 4.2.7.2.686 [place] as Professio [phone] In dicks nal [address] [place] Office Building One 2020-09-18 2020-09-18 [facility] [facility] 1.2.410.315 [id number] Univers 00:00:00 00:00:00 Elle Maria Joseline 350.1.13.10 ity of [place] 4.2.7.2.[place] [phone] In dical nal 134 [facility] 2020-09-08 2020-09-10 Hospital Tita Cortez 1.2.840.11 [id number] Univers 12:24:00 09:20:00 Encounter Migdalia Linares 350.1.13.10 ity of HOSPITAL 4.2.7.2.686 [place] as [phone] [facility] [address] [place] 2020-09-08 2020-09-08 Nurse JUAN Santos 1.2.840.114 [id number] Univers 00:00:00 00:00:00 Triage Rosy GARAY 350.1.13.10 ity of HOSPITAL 4.2.7.2.686 [place] as [phone] [address] 2020-09-05 2020-09-05 Outpatient R MAO RODRIGUES [facility] [id number] Univers 14:30:00 14:30:[address] [facility] 2020-09-03 2020-09-03 Refdb [facility] 1.2.840.114 [id number] Univers 00:00:00 00:00:00 [facility] 350.1.13.10 it y of [place] 4.2.7.2.686 [place] as Professio [phone] In dical nal [address] [place] Office [address] One 2020-09-03 2020-09-03 [facility] 1.2.166.428 [id number] Univers 00:00:00 00:00:00 Elle Trevizo 350.1.13.10 ity of [place]2.7.2.[place] [phone] In dical nal 134 [facility] 2020-09-02 2020-09-02 Routine Hugh Chloe [facility] 1.2.328.826 [id number] Univers 13:19:48 15:16:04 Raleigh Trevizo 350.1.13.10 ity of Visit [place] 4.2.7.2.686 [place] [phone] In dical nal 134 [facility] 2020-09-02 2020-09-02 Outpatient R HUGH CHLOE [facility] [id number] Univers 13:15:00 13:15:[address] [facility] 2020-09-02 2020-09-02 [facility]phone [facility] 1.2.404.758 [id number] Univers 00:00:00 00:00:00 Elle Trevioz 350.1.13.10 ity of [place] 4.2.7.2.[place] [phone] In dical nal 134 [facility] 2020-08-31 2020-08-31 Nurse Irina MARTINEZ 1.2.840.114 [id number] Univers 00:00:00 00:00:00 Triage JARROD Guzman 350.1.13.10 ity of [facility] 4.2.7.2.686 [place] as [phone] [address] 2020-08-31 2020-08-31 Nurse JUAN Patel 1.2.840.114 [id number] Univers 00:00:00 00:00:00 Triage Cat GARAY 350.1.13.10 i ty of [facility] 4.2.7.2.686 [place] as [phone] [address] 2020-08-30 2020-08-30 Nurse JUAN Patel 1.2.840.114 [id number] Univers 00:00:00 00:00:00 Triage Cat ESTESY 350.1.13.10 i ty of [facility] 4.2.7.2.686 [place] as [phone] [address] 2020-08-28 2020-08-29 Emergency [facility] 1.2.109.046 [id number] Univers 20:20:00 00:01:00 Darryn Trevizo 350.1.13.10 i ty of [place] 4.2.7.2.686 [place] [phone] [facility] [address] [place] 2020-08-27 2020-08-27 Mothers Helper 2, Adc Lab [facility] 1.2.840.114 [id number] Univers 15:18:51 15:33:51 Visit Adum, Elle Trevizo 350.1.13.10 ity of [place] 4.2.7.2.686 [place] [phone] In dical nal 353 [facility] 2020-08-27 2020-08-27 Routine Adum, [facility] 1.2.840.114 [id number] Univers 13:41:37 15:06:26 Elle Trevizo 350.1.13.10 ity of Visit [place] 4.2.7.2.686 [place] [phone] In dical nal 134 [facility] 2020-08-27 2020-08-27 Outpatient R AD, [facility] [id number] Univers 14:15:00 14:15:00 ELLE ellis of [facility] [place] 2020-08-27 2020-08-27 Telephone Adum, [facility] 1.2.854.972 [id number] Univers 00:00:00 00:00:00 Elle L [place] 350.1.13.10 ity of [place] 4.2.7.2.686 [place] [phone] [address] 2020-08-22 2020-08-22 Outpatient R ONEL, [facility] [id number] Univers 19:20:00 19:20:00 CALEB itleonard [facility] 2020-08-22 2020-08-22 Telephone Adum, [facility] 1.2.766.677 [id number] Univers 00:00:00 00:00:00 Elle L [place] 350.1.13.10 ity of [place] 4.2.7.2.[place] [phone] [address] 2020-08-22 2020-08-22 Telephone Adum, [facility] [id number] Univers 00:00:00 00:00:00 Elle L [place] [id number] [id number] [phone] [address] 2020-08-19 2020-08-19 Refill Adum, [facility] [id number] Univers 00:00:00 00:00:00 Elle L [place] [id number] [id number] [phone] [address] 2020-08-09 2020-08-09 Outpatient R ADUM, [facility] [id number] Univers 14:30:00 14:30:00 ELLE ellis [facility] 2020-08-06 2020-08-06 Initial Adum, [facility] [id number] Univers 14:28:51 16:45:44 Elle L [place] [id number] ity of [id number] [phone] [address] 2020-08-06 2020-08-06 Outpatient R ADUM, [facility] [id number] Univers 14:30:00 14:30:00 ELLE ity of [facility] [place] [place] 2020-08-06 2020-08-06 Telephone Adum, [facility] [id number] Univers 00:00:00 00:00:00 Elle Trevizo [id number] [id number] [phone] [address] 2020-08-06 2020-08-06 Orders Doctor JUAN [id number] Univers 00:00:00 00:00:00 Only Unassigned, JARROD [id number] ity of [place] [facility] [id number] [place] [phone] [address] 2020-07-29 2020-07-29 Refill [facility] 1.2.840.114 [id number] Univers 00:00:00 00:00:00 [facility] 350.1.13.10 it y of [place] 4.2.7.2.686 [place] as Professio [phone] [address] 2020-07-29 2020-07-29 [facility] 1.2.840.114 [id number] Univers 00:00:00 00:00:00 [facility] 350.1.13.10 it y of [place] 4.2.7.2.686 [place] as Professio [phone] [address] One 2020-07-22 2020-07-22 Outpatient R MARY GRACE, [facility] [id number] Univers 19:00:00 19:00:00 IAIN ellis o f [facility] [place] [place] 2020-07-16 2020-07-16 [facility] 1.2.840.114 [id number] Univers 00:00:00 00:00:00 [facility] 350.1.13.10 it y of [place] 4.2.7.2.686 [place] as Professio [phone] [address] One 2020-07-06 2020-07-06 [facility] 1.2.840.114 [id number] Univers 00:00:00 00:00:00 [facility] 350.1.13.10 it y of [place] 4.2.7.2.686 [place] as Professio [phone] [address] One 2020-07-01 2020-07-01 [facility] 1.2.840.114 [id number] Univers 00:00:00 00:00:00 [facility] 350.1.13.10 it y of [place] 4.2.7.2.686 [place] as Professio [phone] [address] One 2020-06-21 2020-06-21 Outpatient R KING TAMMIE [facility] [id number] Univers 16:15:00 16:15:00 [facility] 2020-06-19 2020-06-19 Orders Doctor JUAN 1.2.840.114 [id number] Univers 00:00:00 00:00:00 Only Unassigned, JARROD 350.1.13.10 ity of [place] [facility] 4.2.7.2.686 Henry as [phone] [address] 2020-06-11 2020-06-11 Office [facility] 1.2.840.114 [id number] Univers 15:35:12 15:50:[address] [facility] 350.1.13.10 it y of [place] 4.2.7.2.686 [place] as Professio [phone] [address] 2020-06-11 2020-06-11 Outpatient R [facility] [id number] Univers 15:30:00 15:30:00 [facility] 2020-05-30 2020-05-30 [facility] 1.2.840.114 [id number] Univers 00:00:00 00:00:00 [facility] 350.1.13.10 it y of [place] 4.2.7.2.686 [place] as Professio [phone] [facility] 044 [facility] One 2020-05-27 2020-05-27 [facility] 1.2.840.114 [id number] Univers 00:00:00 00:00:00 Grant Gene [place] 350.1.13.10 ity of [place] [phone] [facility] 092 [facility] 2020-05-02 2020-05-02 Outpatient [facility] [id number] [facility] 09:50:00 09:50:00 ARIK ity of [facility] [place] 2020-05-02 2020-05-02 Telemedici [facility] 1.2.840.114 [id number] Univers 08:42:09 08:52:[address] [facility] 350.1.13.10 i ty of [place] 4.2.7.2.686 [place] as Professio [phone] [address] One 2020-05-02 2020-05-02 Telephone [facility] 1.2.840.114 [id number] Univers 00:00:00 00:00:00 [facility] 350.1.13.10 it y of [place] 4.2.7.2.686 [place] as Professio [phone] [address] One 2020-05-02 2020-05-02 Telephone [facility] 1.2.840.114 [id number] Univers 00:00:00 00:00:00 [facility] 350.1.13.10 it y of [place] 4.2.7.2.686 [place] as Professio [phone] [address] One 2020-05-02 2020-05-02 Telephone [facility] 1.2.840.114 [id number] Univers 00:00:00 00:00:00 [facility] 350.1.13.10 it y of [place] 4.2.7.2.686 [place] as Professio [phone] [address] Office [facility] One 2020-05-01 2020-05-01 Emergency [facility] 1.2.177.837 [id number] Univers 18:59:00 21:44:00 Juma Trevizo 350.1.13.10 i ty of [place] 4.2.7.2.686 [place] [phone] [facility] 084 [place] 2020-04-28 2020-04-28 [facility] 1.2.840.114 [id number] Univers 00:00:00 00:00:00 [facility] 350.1.13.10 it y of [place] 4.2.7.2.686 [place] as Professio [phone] [address] One 2020-04-22 2020-04-22 [facility] 1.2.840.114 [id number] Univers 06:54:00 08:09:00 Encounter Aly Trevizo 350.1.13.10 ity of [place] [phone] [address] 2020-04-19 2020-04-19 Outpatient [facility] [id number] Univers 13:00:00 13:00:00 ALY ity of [facility] [place] 2020-04-12 2020-04-12 [facility] 1.2.840.114 [id number] Univers 00:00:00 00:00:00 [facility] 350.1.13.10 it y of [place] 4.2.7.2.686 [place] as Professio [phone] [address] 2020-04-11 2020-04-11 Outpatient [facility] [id number] Univers 10:30:00 10:30:00 ARIK ity [facility] 2020-04-11 2020-04-11 Telemedici [facility] 1.2.840.114 [id number] Univers 07:27:09 07:42:[address] [facility] 350.1.13.10 i ty of [place] 4.2.7.2.686 [place] as Professio [phone] [address] Office [facility] One 2020-04-11 2020-04-11 Telephone [facility] 1.2.840.114 [id number] Univers 00:00:00 00:00:00 [facility] 350.1.13.10 it y of [place] 4.2.7.2.686 [place] as Professio [phone] [address] One 2020-04-09 2020-04-09 Outpatient R [facility] [id number] Univers 13:00:00 13:00:00 ARIK ity [facility] 2020-04-08 2020-04-08 [facility] 1.2.840.114 [id number] Univers 06:58:00 08:24:00 Encounter Aly Trevizo 350.1.13.10 ity of [place] [address] [phone] [facility] 071 [place] 2020-04-08 2020-04-08 Orders Doctor JUAN 1.2.840.114 [id number] Univers 00:00:00 00:00:00 Only Unassigned, JARROD 350.1.13.10 ity of [place] [facility] 4.2.7.2.686 Henry as [phone] [facility] [address] 2020-04-05 2020-04-05 Outpatient R [facility] [id number] Univers 13:45:00 13:45:00 ALY ellis [facility] 2020-04-05 2020-04-05 Mothers Helper Danette, Edy Lab Main [facility] 1.2.8 40.114 [id number] Univers 11:46:35 12:01:35 Visit Aly Ryan 350.1.13.1 0 ity of [place] [phone] [facility] 353 [facility] 2020-04-05 2020-04-05 Laboratory Only, Adc Test [facility] 1.2.840. 114 [id number] Univers 11:44:14 11:59:14 Only Aly Ryan S [place] 350.1.13.1 0 ity of [place].2.[place] [phone] [facility] 353 [place] 2020-04-05 2020-04-05 Orders Doctor JUAN 1.2.840.114 [id number] Univers 00:00:00 00:00:00 Only Unassigned, JARROD 350.1.13.10 ity of [place] [facility] 4.2.7.2.686 Henry as [phone] [facility] 00[address] [place] 2020-04-05 2020-04-05 Telephone [facility] 1.2.840.114 [id number] Univers 00:00:00 00:00:00 [facility] 350.1.13.10 it y of [place] 4.2.7.2.686 [place] as Professio [phone] [address] Office [facility] One 2020-04-04 2020-04-04 Telephone [facility] 1.2.840.114 [id number] Univers 00:00:00 00:00:00 [facility] 350.1.13.10 it y of [place] 4.2.7.2.686 [place] as Professio [phone] [address] Office [facility] 2020-04-04 2020-04-04 Patient [facility] 1.2.840.114 [id number] Univers 00:00:00 00:00:[address] [facility] 350.1.13.10 ity of [place] 4.2.7.2.686 [place] as Professio [phone] [address] Office [facility] One 2020-04-03 2020-04-03 Office [facility] 1.2.840.114 [id number] Univers 15:00:34 15:15:[address] [facility] 350.1.13.10 it y of [place] 4.2.7.2.686 [place] as Professio [phone] In dical nal [address] Office Building One 2020-04-03 2020-04-03 Outpatient R [facility] [id number] Univers 14:45:00 14:45:00 ARIK ity of [facility] [place] 2020-04-03 2020-04-03 Telephone [facility] 1.2.840.114 [id number] Univers 00:00:00 00:00:00 [facility] 350.1.13.10 it y of [place] 4.2.7.2.686 [place] as Professio [phone] In dical nal [address]44 [place] Office Building One 2020-04-03 2020-04-03 [facility] 1.2.840.114 [id number] Univers 00:00:00 00:00:00 [facility] 350.1.13.10 it y of [place] 4.2.7.2.686 [place] as Professio [phone] [address] Office Building [facility] 2020-03-25 2020-03-25 [facility] 1.2.840.114 [id number] Univers 08:02:00 10:10:00 Encounter Aly Aggie Joseline 350.1.13.10 ity of [place].2.[place] [phone] [facility] [address] 2020-03-25 2020-03-25 Orders Doctor JUAN 1.2.840.114 [id number] Univers 00:00:00 00:00:00 Only Unassigned, JARROD 350.1.13.10 ity of [place] [facility] 4.2.7.2.686 Henry as [phone] [facility] [address] 2020-03-25 2020-03-25 Nurse Irina MARTINEZ 1.2.840.114 [id number] Univers 00:00:00 00:00:00 Triage JARROD Guzman 350.1.13.10 ity of [facility] 4.2.7.2.686 Henry as [phone] [facility] [address] 2020-03-20 2020-03-20 Mothers Helper Danette, Adc Lab Main [facility] 1.2.8 40.114 [id number] Univers 12:30:25 12:45:25 Visit Aly Ryan 350.1.13.1 0 ity of [place]2.7.2.[place] [phone] In dical nal 353 [facility] 2020-03-20 2020-03-20 Laboratory Only, Adc Test [facility] 1.2.840. 114 [id number] Univers 11:43:13 11:58:13 Only Aly Ryan 350.1.13.1 0 ity of [place]2.[place].2.686 [place] [phone] [facility] 353 [place] 2020-03-20 2020-03-20 Outpatient R [facility] [id number] Univers 11:15:00 11:15:00 ALY [facility] 2020-03-20 2020-03-20 Orders Doctor MARTINEZ 1.2.840.114 [id number] Univers 00:00:00 00:00:00 Only Unassigned, JARROD 350.1.13.10 ity of [place] HOSPITAL 4.2.7.2.686 [place] as [phone] [facility] 00[address] [place] 2020-03-12 2020-03-12 Office [facility] 1.2.840.114 [id number] Univers 14:07:40 14:22:[address] [facility] 350.1.13.10 it y of [place] 4.2.7.2.686 [place] as Professio [phone] In dical nal 044 [place] Office Building One 2020-03-12 2020-03-12 Outpatient R [facility] [id number] Univers 14:15:00 14:15:00 ARIK [facility] 2020-03-12 2020-03-12 Nurse JUAN Chun 1.2.840.114 [id number] Univers 00:00:00 00:00:00 Triage Karina JARROD 350.1.13.10 it y of HOSPITAL 4.2.7.2.686 [place] as [phone] [address] 2020-03-12 2020-03-12 Telephone [facility] 1..840.114 [id number] Univers 00:00:00 00:00:00 [facility] 350.1.13.10 it y of [place] 4.2.7.2.686 [place] as Professio [phone] [address] Office [facility] One 2020-02-14 2020-02-14 Outpatient R CARLOS [facility] [id number] Univers 15:30:00 15:30:00 ELLE leonard [facility] 2020-02-12 2020-02-12 [facility] 1..840.114 [id number] [id number] Univers 00:00:00 00:00:00 [facility] 350.1.13.10 it y of [place] 4.2.7.2.686 [place] as Professio [phone] [address] 2020-01-29 2020-01-29 Telephone [facility] 1..840.114 [id number] Univers 00:00:00 00:00:00 [facility] 350.1.13.10 it y of [place] 4.2.7.2.686 [place] as Professio [phone] [address] 2020-01-29 2020-01-29 [facility] 1.2.840.114 [id number] Univers 00:00:00 00:00:00 [facility] 350.1.13.10 it y of [place] 4.2.7.2.686 [place] as Professio [phone] [address] One 2020-01-26 2020-01-26 Outpatient R [facility] [id number] Univers 16:00:00 16:00:00 ARIK [facility] 2020-01-26 2020-01-26 Mothers Helper Lab, Adc Fam Pob I [facility] 1.2. 840.114 [id number] Univers 09:09:02 09:16:47 Visit Arik Benz [facility] 350.1.13 .10 ity of [place] 4.2.7.2.686 [place] as Professio [phone] [facility] 044 [facility] 2020-01-26 2020-01-26 Office Demar [facility] 1.2.840.114 [id number] Univers 08:16:33 08:31:33 Visit Arik Armenta 350.1.13.10 it y of [place] 4.2.7.2.686 [place] as Professio [phone] [address] 2020-01-26 2020-01-26 Outpatient R DEMAR [facility] [id number] Univers 08:30:00 08:30:00 ARIK [facility] 2020-01-25 2020-01-25 Office [facility] 1.2.177.643 [id number] Univers 15:25:26 16:55:28 Visit Teo Joseline 350.1.13.10 i ty of [place].2.[place] [phone] [facility] 134 [facility] 2020-01-25 2020-01-25 Outpatient R MARILUJAMAICATOPHERBARNEY [facility] [id number] Univers 15:30:00 15:30:00 [facility] 2020-01-24 2020-01-24 Outpatient R CHARLINE JUMA [facility] [id number] Univers 14:30:00 14:30:00 ity [facility] 2020-01-18 2020-01-18 Refill Doctor [facility] 1.2.953.279 [id number] Univers 00:00:00 00:00:00 Unassigned, HEALTH 350.1.13.10 ity of [place] [facility] 4.2.7.2.686 [place] [phone] [facility] [address] [place] [address] 2020-01-15 2020-01-15 [facility] 1.2.840.114 [id number] Univers 00:00:00 00:00:00 Maximus Trevizo 350.1.13.10 i ty of [place] 4[place]2.7.2.686 [place] [phone] In dic[address] 2020-01-12 2020-01-12 Refill Soni [facility] 1.2.840.114 [id number] Univers 00:00:00 00:00:00 Grant Hayes [place] 350.1.13.10 ity of [place] 4.2.7.2.686 [place] [phone] [facility] 092 [facility] 2019-12-15 2019-12-15 Outpatient R CARLOS, [facility] [id number] Univers 13:00:00 13:00:00 [facility] 2019-11-07 2019-11-17 Office [facility] 1.2.840.114 [id number] Univers 14:01:04 14:03:23 Visit Wonpeter Zandra [place] 350.1.13.10 ity of [place] 4.2.7.2.686 [place] [phone] [facility] 044 [facility] 2019-11-17 2019-11-17 Case [facility] 1..840.114 [id number] Univers 00:00:00 00:00:00 Management Wonpeter Zandra Joseline 350.1.13.10 ity of [place] 4.2.7.2.686 [place] [phone] [facility] 044 [facility] 2019-11-14 2019-11-14 Outpatient R DEMAR, [facility] [id number] Univers 16:30:00 16:30:00 ARIK [facility] 2019-11-10 2019-11-10 Allie [facility] 1.2.840.114 [id number] Univers 00:00:00 00:00:00 Grant Hayes [place] 350.1.13.10 ity of [place] 4.2.7.2.686 [place] [phone] [address] 2019-11-10 2019-11-10 Refdb [facility]UP [facility] 1.2.840.114 [id number] Univers 00:00:00 00:00:00 Grant Hayes [place] 350.1.13.10 ity of [place] 4.2.7.2.686 [place] [phone] [facility] [address] [place] [address] 2019-11-08 2019-11-08 Outpatient Asplin_B VFP VFP [id number] 1-20 Village 11:44:00 11:44:00 [id number] Family Practic e 2019-11-08 2019-11-08 Telephone Soni [facility] 1.2.840.114 [id number] Univers 00:00:00 00:00:00 Grant [place] 350.1.13.10 ity of [place] 4.2.7.2.686 [place] [phone] In dical nal 092 [facility] 2019-11-07 2019-11-07 Mothers Helper 2, Adc Lab [facility] 1.2.840.114 [id number] Univers 14:43:22 14:58:22 Visit Justin Oconnor 350.1.13. 10 ity of [place] 4.2.7.2.686 [place] [phone] [facility] 353 [facility] 2019-11-07 2019-11-07 Outpatient R [facility] [id number] Univers 13:45:00 13:45:00 WONAIFUL ity o f [facility] [place] 2019-11-05 2019-11-05 Outpatient R [facility] [id number] Univers 16:20:00 16:20:00 [facility] 2019-11-05 2019-11-05 Nurse JUAN Santos 1.2.840.114 [id number] Univers 00:00:00 00:00:00 Triage Rosy GARAY 350.1.13.10 ity of [facility] 4.2.7.2.686 [place] as [phone] [address] 2019-11-03 2019-11-03 Refill SoniHAY 1.2.840.114 [id number] Univers 00:00:00 00:00:00 Grant Koo [facility] 350.1.13.10 ity of [facility] 4.2.7.2.686 [place] [phone] [address] 2019-11-02 2019-11-02 Patient Elvin [facility] 1.2.840.114 [id number] Univers 00:00:00 00:00:00 Secure Msg Greendiful A Joseline 350.1.13.10 ity of [place] 4.2.7.2.[place] [phone] In dical nal 044 [facility] 2019-11-01 2019-11-01 Transition Kalyani Dubois 1.2.840.114 [id number] Univers 00:00:00 00:00:00 of Care Edna Edgary 350.1.13.10 ity of [place] 4.2.7.2.686 [place] [phone] [facility] [address] 2019-10-31 2019-10-31 Emergency Eileen, [facility] 1.2.342.379 [id number] Univers 16:01:00 18:16:00 Grisbritt Joseline 350.1.13.10 i ty of [place]2.7.2.686 [place] [phone] [facility] 0[address] [place] 2019-10-31 2019-10-31 Telemedici Beth Kang [facility] 1.2.840 .114 [id number] Univers 05:43:53 13:27:24 ne Visit Unknown, Attending SPECIALTY 350.1.13 .10 ity of C[place] 4.2.7.2.[place] C[place] AT [phone] In nancydhruv ARZOLAY 370 [facility] 2019-10-31 2019-10-31 Outpatient R UNKNOWN, [facility] [id number] Univers 10:00:00 10:00:00 ATTENDING ity of [facility] [place] 2019-10-31 2019-10-31 [facility] 1.2.257.276 [id number] Univers 00:00:00 00:00:00 [facility] 350.1.13.10 it y of [place] 4.2.7.2.686 [place] as Professio [phone] In dical nal 044 [place] Office [facility] One 2019-10-30 2019-10-30 Telephone [facility] 1.2.199.649 [id number] Univers 00:00:00 00:00:00 [facility] 350.1.13.10 it y of [place] 4.2.7.2.686 [place] as Professio [phone] [address] Office [facility] One 2019-10-29 2019-10-29 Emergency Cacace, [facility] 1.2.168.883 [id number] Univers 20:08:00 22:13:00 Jane Trevizo 350.1.13.10 ity of [place] 4.2.[place].2.[place] [phone] [facility] [address] 2019-10-29 2019-10-29 Telemedici Care, Provider 12 - Adult U rgent [facility] 1.2.840.114 [id number] Univers 18:20:00 18:40:00 ne Visit Unknown, [facility] HEALTH 350.1.13.1 0 ity of [facility] 4.2.7.2.686 [place] [facility] [phone] [address] ([facility]) 2019-10-29 2019-10-29 Outpatient R UNKNOWN, [facility] [id number] Univers 18:20:00 18:20:00 ATTENDING ity of [facility] [place] 2019-10-25 2019-10-25 Telephone [facility] 1.2.907.603 [id number] Univers 00:00:00 00:00:00 Tico [facility] 350.1.13.10 it y of [place] 4.2.7.2.686 [place] as Professio [phone] [address] Office [facility] 2019-10-25 2019-10-25 Refill NeftalygaylastephanGALLUP INDIAN [facility] 1.2.840.114 [id number] Univers 00:00:00 00:00:00 Maximus Trevizo 350.1.13.10 i ty of [place] 4[place]2.7.2.[place] [phone] [address] 2019-10-24 2019-10-24 Hospital Alon [facility] 1.2.840.114 [id number] Univers 16:15:00 23:59:00 Encounter Tico Trevizo 350.1.13.10 ity of [place].2.[place] [phone] [facility] [address] [place] 2019-10-24 2019-10-24 Urgent Provider, [facility] 1.2.840.114 [id number] Univers 15:17:27 15:37:27 Care Tico [facility] 350.1.13.10 ity of [place] 4.2.7.2.686 [place] as Professio [phone] [address] Building One 2019-10-24 2019-10-24 Outpatient R [facility] [id number] Univers 15:20:00 15:20:00 TICO ity [facility] 2019-10-24 2019-10-24 Telephone [facility] 1.2.806.549 [id number] [facility] 00:00:00 00:00:00 Tico Trevizo 350.1.13.10 i ty of [place].2.[place] [phone] [address] 2019-10-23 2019-10-23 Outpatient Asplin_B VFP VFP [id number] -20 [place] 11:19:00 11:19:00 [id number] Family Practic e 2019-10-10 2019-10-10 Telephone [facility] 1.2.840.114 [id number] Univers 00:00:00 00:00:00 Aly S PRIMARY 350.1.13.10 i ty of C[place] 4.2.7.2.[place] [phone] [address] 2019-09-26 2019-09-26 Refill [facility] 1.2.840.114 [id number] Univers 00:00:00 00:00:00 Tico Trevizo 350.1.13.10 i ty of [place].2.[place] [phone] [address] 2019-09-16 2019-09-16 Outpatient Campos CORADO [facility] [id number] Univers 16:40:00 16:40:00 CALEB leonard [facility] 2019-09-16 2019-09-16 Outpatient Asplin_B VFP VFP [id number] 1-20 [place] 10:07:00 10:07:00 Family Practic e 2019-09-15 2019-09-15 Outpatient Campos SANTIAGO [facility] [id number] Univers 17:00:00 17:00:00 KITA ity of [facility] [place] 2019-09-08 2019-09-08 Telephone JUAN Chi 1.2.038.998 [id number] Univers 00:00:00 00:00:00 Tico GARAY 350.1.13.10 it y of HOSPITAL 4.2.7.2.686 [place] as [phone] [address] 2019-09-08 2019-09-08 Patient Doctor JUAN 1.2.840.114 [id number] Univers 00:00:00 00:00:00 Secure Msg Unassigned, JARROD 350.1.13.10 ity of [place] HOSPITAL 4.2.7.2.686 Henry as [phone] [address] 2019-09-06 2019-09-06 Urgent Pob1, Acute Care Clinic [facility] 1. 2.840.114 [id number] Univers 16:19:19 16:39:19 Aparna Brannon [facility] 350.1.13.10 ity of [place] 4.2.7.2.686 [place] as Professio [phone] [address] Office Building One 2019-09-06 2019-09-06 Outpatient R [facility] [id number] Univers 16:20:00 16:20:[address] [facility] [place] [place] 2019-09-06 2019-09-06 Outpatient R [facility] [id number] Univers 11:20:00 11:20:[address] [facility] [place] 2019-09-06 2019-09-06 Patient Doctor JUAN 1.2.840.114 [id number] Univers 00:00:00 00:00:00 Secure Msg Unassigned, JARROD [id number] ity of [facility] [id number] [place] as [phone] [address] 2019-08-23 2019-08-23 Outpatient R GRANT SHAFER [facility] [id number] Univers 15:00:00 15:00:00 GRANT SHAFER ity [facility] 2019-08-23 2019-08-23 Telemedici HAY Shafer 1.2.840.114 [id number] Univers 08:11:53 08:41:53 ne Visit Grant Koo [facility] [id number] ity [id number] [phone] [facility] [address] 2019-08-20 2019-08-20 Outpatient Campos HOLLOWAY, [facility] [id number] Univers 17:00:00 17:00:00 MURALI ity of [facility] [place] [place] 2019-08-15 2019-08-15 Transition Kalyani Dubois 1.2.840.114 [id number] Univers 00:00:00 00:00:00 of Care Edna Wills [id number] ity of [place] [phone] [facility] [address] 2019-08-13 2019-08-13 Emergency [facility] [id number] Univers 18:39:45 20:15:00 Sean Trevizo [id number] ity of [id number] [phone] [facility] [address] [place] 2019-08-13 2019-08-13 Orders Doctor JUAN 1.2.840.114 [id number] Univers 00:00:00 00:00:00 Only Unassigned, JARROD 350.1.13.10 ity of [place] [facility] 4.2.7.2.686 [place] as [phone] [facility] [address] [place] 2019-08-01 2019-08-01 Telephone [facility] 1.2.840.114 [id number] Univers 00:00:00 00:00:00 Grant Trevizo 350.1.13.10 ity of [place] [facility] [phone] [place] [id number] [facility] 2019-07-25 2019-07-25 Outpatient Campos INGRAM, [facility] [id number] Univers 15:00:00 15:00:00 TEO itleonard [facility] 2019-07-16 2019-07-16 Telephone Alon [facility] 1.2.639.278 [id number] Univers 00:00:00 00:00:00 Tico Trevizo 350.1.13.10 i ty of [place] [phone] In dical nal 044 [facility] 2019-07-11 2019-07-11 Telephone [facility] 1.2.377.893 [id number] Univers 00:00:00 00:00:00 Tico Armenta 350.1.13.10 it y of [place] 4.2.7.2.686 [place] as Professio [phone] In dical nal 044 [place] Office [facility] 2019-06-20 2019-06-20 Telephone [facility] 1.2.755.509 [id number] Univers 00:00:00 00:00:00 Tico Armenta 350.1.13.10 it y of [place] 4.2.7.2.686 [place] as Professio [phone] [facility] 044 [place] Office [facility] 2019-06-16 2019-06-16 Telephone [facility] 1.2.840.114 [id number] Univers 00:00:00 00:00:00 Grant Trevizo 350.1.13.10 ity of [place] [phone] [facility] 092 [facility] 2019-06-14 2019-06-14 Outpatient R [facility] [id number] Univers 12:43:28 23:59:00 KYA ellis o f [facility] [place] 2019-06-14 2019-06-14 [facility] 1.2.840.114 [id number] Univers 12:30:00 23:59:00 Encounter Kya [place] 350.1.13.10 ity of [place]2.[place].2.686 [place] [phone] [facility] 8[address] [place] 2019-06-14 2019-06-14 Orders Doctor MARTINEZ 1.2.840.114 [id number] Univers 00:00:00 00:00:00 Only Unassigned, JARROD 350.1.13.10 ity of [place] [facility] 4.2.7.2.686 [place] as [phone] [facility] [address] [place] 2019-06-13 2019-06-13 Refill Dunia [facility] 1.2.840.114 [id number] Univers 00:00:00 00:00:00 Jose Joseline 350.1.13.10 i ty of [place].2.[place] [phone] In dical nal 134 [facility] 2019-06-11 2019-06-11 Patient Doctor JUAN 1.2.840.114 [id number] Univers 00:00:00 00:00:00 Secure Msg UnassignedJARROD 350.1.13.10 ity of [facility] 4.2.7.2.686 [place] as [phone] [facility] 019 [place] 2019-06-09 2019-06-09 Telephone Soni [facility] 1.2.840.114 [id number] Univers 00:00:00 00:00:00 Grant Trevizo 350.1.13.10 ity of [place] [phone] In dical nal 092 [facility] 2019-06-06 2019-06-06 Outpatient R GRANT SHAFER [facility] [id number] Univers 10:40:00 10:40:00 GRANT SHAFER ity of [facility] [place] 2019-06-06 2019-06-06 Telephone Alon [facility] 1.2.402.713 [id number] Univers 00:00:00 00:00:00 [facility] 350.1.13.10 it y of [place] 4.2.7.2.686 [place] as Professio [phone] In dical nal 044 [place] Office [facility] One 2019-06-06 2019-06-06 Patient Alon [facility] 1.2.840.114 [id number] Univers 00:00:00 00:00:00 Secure Msg [facility] 350.1.13.10 ity of [place] 4.2.7.2.686 [place] as Professio [phone] In dical nal 044 [place] Office Building One 2019-06-06 2019-06-06 Patient Doctor [facility] 1.2.840.114 [id number] Univers 00:00:00 00:00:00 Secure Msg Unassigned, Health 350.1.13.10 ity of [place] 4.2.7.2.686 [place] as Professio [phone] [address] 2019-06-05 2019-06-05 Refill [facility] 1.2.840.114 [id number] Univers 00:00:00 00:00:00 [facility] 350.1.13.10 it y of [place] 4.2.7.2.686 [place] as Professio [phone] [address] Office [facility] 2019-06-03 2019-06-03 Patient Doctor JUAN 1.2.840.114 [id number] Univers 00:00:00 00:00:00 Secure Msg Unassigned, JARROD 350.1.13.10 ity of [place] [facility] 4.2.7.2.686 [place] as [phone] [address] 2019-06-02 2019-06-02 Office [facility] 1.2.840.114 [id number] Univers 11:27:23 13:40:24 Visit [facility] 350.1.13.10 it y of [place] 4.2.7.2.686 [place] as Professio [phone] [address] 2019-06-02 2019-06-02 Office Carmen Mcclain [facility] 1.2.840.114 [id number] Univers 10:14:12 10:29:12 Visit Olya [facility] 350.1.13.10 ity of Surgical 4.2.7.2.686 [place] as Specialti [phone] [address] 2019-06-02 2019-06-02 Outpatient R AMIE [facility] [id number] Univers 10:15:00 10:15:00 OLYA ellis [facility] 2019-06-02 2019-06-02 Nurse JUAN Patel 1.2.840.114 [id number] Univers 00:00:00 00:00:00 Triage Cat De Paz JARROD 350.1.13.10 i ty of HOSPITAL 4.2.7.2.686 [place] as [phone] [address] 2019-05-31 2019-05-31 Telephone Soni [facility] 1.2.840.114 [id number] Univers 00:00:00 00:00:00 Grant Koo Joseline 350.1.13.10 ity of [place] 4.2.[place].2.[place] [phone] In dical nal 092 [facility] 2019-05-24 2019-05-24 Patient Doctor JUAN 1.2.840.114 [id number] Univers 00:00:00 00:00:00 Secure Msg Unassigned, JARROD 350.1.13.10 ity of [place] [facility] 4.2.7.2.686 [place] as [phone] [address] 2019-05-17 2019-05-17 Patient Orestes [facility] 1.2.840.114 [id number] Univers 00:00:00 00:00:00 Outreach [facility] 350.1.13.10 i ty of [place] 4.2.7.2.686 [place] as Professio [phone] In dical nal 044 [place] Office [facility] One 2019-05-11 2019-05-11 Outpatient R [facility] [id number] Univers 13:40:00 14:48:32 MAXIMUS ellis [facility] 2019-05-11 2019-05-11 Office [facility] 1.2.840.114 [id number] Univers 13:32:39 14:48:32 Visit Maximus Trevizo 350.1.13.10 i ty of [place] 4.2.7.2.[place] [phone] In dical nal 044 [facility] 2019-04-26 2019-04-26 Telephone [facility] 1.2.840.114 [id number] Univers 00:00:00 00:00:00 Maximus Trevizo 350.1.13.10 i ty of [place] 4.2.7.2.[place] [phone] In dical nal 044 [facility] 2019-04-25 2019-04-25 Letter Neurology [facility] 1.2.840.114 [id number] Univers 00:00:00 00:00:00 (Out) Y HEALTH 350.1.13.10 i ty of CLINICS 4.2.7.2.[place] [phone] [facility] [address] [place] 2019-04-24 2019-04-24 Hospital [facility] 1.2.840.114 [id number] Univers 12:05:00 15:15:00 Encounter Olya Trevizo 350.1.13.10 ity of [place]2.7.2.[place] [address] [phone] [facility] [address] 2019-04-24 2019-04-24 Transition Kalyani Tran 1.2.840.114 [id number] Univers 00:00:00 00:00:00 of Care Inocencio Edgary 350.1.13.10 ity of [place] 4.2.7.2.686 [place] [phone] [facility] [address] 2019-04-18 2019-04-21 Hospital Mao Rodrigues 1.2.840.114 [id number] Univers 08:40:00 13:03:00 Encounter S [place] 350.1.13.10 ity of [facility] 4.2.7.2.686 [place] as [phone] [facility] [address] [place] 2019-04-19 2019-04-19 Telephone Chloe Reese [facility] 1.2.840.114 [id number] Univers 00:00:00 00:00:00 Cam Joseline 350.1.13.10 i ty of [place] 4.2.7.2.[place] [phone] In dical nal 134 [facility] 2019-04-18 2019-04-18 Outpatient R MAO RODRIGUES [facility] [id number] Univers 08:30:00 08:30:[address] [facility] [place] 2019-04-14 2019-04-14 Office Alon [facility] 1.2.840.114 [id number] Univers 15:40:06 16:24:42 Visit [facility] 350.1.13.10 it y of [place] 4.2.7.2.686 [place] as Professio [phone] In dical nal 044 [facility] 2019-04-14 2019-04-14 Patient Cyn, [facility] 1.2.840.114 [id number] Univers 00:00:00 00:00:00 Outreach Glenys [facility] 350.1.13.10 ity of [place] 4.2.7.2.686 [place] as Professio [phone] In dical nal 044 [facility] 2019-04-14 2019-04-14 Telephone [facility] 1.2.840.114 [id number] Univers 00:00:00 00:00:00 Olya [facility] 350.1.13.10 it y of Surgical 4.2.7.2.686 [place] as Specialti [phone] In dical es 198 [facility] 2019-04-14 2019-04-14 Telephone [facility] 1.2.840.114 [id number] Univers 00:00:00 00:00:00 Maximus Trevizo 350.1.13.10 i ty of [place]2.[place].2.[place] [phone] In dical nal 044 [facility] 2019-04-13 2019-04-13 [facility] 1.2.746.801 [id number] Univers 00:00:00 00:00:00 Teo Trevizo 350.1.13.10 i ty of [place] 4.2.7.2.[place] [phone] In dical nal 134 [facility] 2019-04-07 2019-04-07 Office [facility] 1.2.840.114 [id number] Univers 07:44:27 09:37:11 Visit Maximus Trevizo 350.1.13.10 i ty of [place] 4.2.7.2.686 [place] [phone] In dical nal 044 [facility] 2019-04-07 2019-04-07 Telephone [facility] 1.2.840.114 [id number] Univers 00:00:00 00:00:00 Maximus Trevizo 350.1.13.10 i ty of [place] 4.2.7.2.686 [place] [phone] [facility] 044 [facility] 2019-04-03 2019-04-03 Outpatient O AMIE [facility] [id number] Univers 16:17:03 23:59:[address]ard of [facility] [place] 2018-12-09 2018-12-09 Telephone Dunia [facility] 1.2.840.114 [id number] Univers 00:00:00 00:00:00 Jose Trevizo 350.1.13.10 i ty of [place] 4.2.7.2.[place] [phone] [facility] 134 [facility] 2018-11-29 2018-11-29 Routine Chloe Reese [facility] 1.2.669.698 [id number] Univers 16:02:20 16:42:16 Raleigh Trevizo 350.1.13.10 ity of Visit [place] 4.2.7.2.686 [place] Profess[place] [phone] [facility] 134 [facility] 2018-11-25 2018-11-25 Emergency [facility] 1.2.447.451 [id number] Univers 21:54:39 22:48:00 Ranjit Trevizo 350.1.13.10 i ty of [place] 4.2.7.2.686 [place] [phone] [facility] [address] [place] [address] 2018-11-25 2018-11-25 Telephone Chloe Reese [facility] 1.2.840.114 [id number] Univers 00:00:00 00:00:00 Raleigh Trevizo 350.1.13.10 i ty of [place] 4.2.7.2.686 [place] [phone] [facility] 134 [facility] 2018-11-25 2018-11-25 Nurse JUAN Elise 1.2.840.114 [id number] Univers 00:00:00 00:00:00 Triage Jackelin GARAY 350.1.13.10 it y of [facility] 4.2.7.2.686 [place] as [phone] [facility] [address] [place] 2018-11-24 2018-11-24 Patient Kalyani Garcia 1.2.840.114 [id number] Univers 00:00:00 00:00:00 Outreach Roseanne Edgary 350.1.13.10 ity of [place] 4.2.7.2.686 [place] [phone] [facility] 403 [place] 2018-11-24 2018-11-24 Telephone [facility] 1.2.840.114 [id number] Univers 00:00:00 00:00:00 Jose Trevizo 350.1.13.10 i ty of [place] 4.2.7.2.[place] [phone] [address] 2018-11-23 2018-11-23 Emergency [facility] 1.2.717.917 [id number] Univers 13:27:49 19:20:00 Darryn Trevizo 350.1.13.10 i ty of [place] 4.2.7.2.686 [place] [phone] [place] 059[place] 2018-11-23 2018-11-23 Telephone [facility] 1.2.840.114 [id number] Univers 00:00:00 00:00:00 Jose Trevizo 350.1.13.10 i ty of [place] 4.2.7.2.[place] [phone] [address] 2018-11-20 2018-11-22 [facility] 1.2.840.114 [id number] Univers 15:12:00 19:15:00 Encounter Jose Trevizo 350.1.13.10 ity of [place] 4.2.7.2.686 [place] [phone] [place] 059113 [place] 2018-11-20 2018-11-20 Nurse JUAN Cortes 1.2.840.114 [id number] Univers 00:00:00 00:00:00 Triage Renetta GARAY 350.1.13.10 it y of HOSPITAL 4.2.7.2.686 [place] as [phone] [facility] [address] [place] 2018-11-20 2018-11-20 Orders Doctor MARTINEZ 1.2.840.114 [id number] Univers 00:00:00 00:00:00 Only Unassigned, JARROD 350.1.13.10 ity of [place] [facility] 4.2.7.2.686 [place] as [phone] [facility] [address] [place] 2018-11-18 2018-11-18 Routine [facility] 1.2.840.114 [id number] Univers 10:21:53 11:38:24 Jose Trevizo 350.1.13.10 ity of Visit [place] 4.2.7.2.686 [place] [phone] [facility] 134 [facility] 2018-11-14 2018-11-17 Routine [facility] 1.2.840.114 [id number] [facility] 10:03:04 13:42:26 Jose Trevizo 350.1.13.10 ity of Visit [place] 4.2.7.2.686 [place] Profess[place] [phone] [address] 2018-11-17 2018-11-17 Routine [facility] 1.2.840.114 [id number] [facility] 12:09:08 13:31:39 Jose [place] 350.1.13.10 ity of Visit [place] 4.2.7.2.686 [place] Profess[place] [phone] [address] 2018-11-14 2018-11-14 Hospital Chloe Reese [facility] 1.2.840.114 [id number] Univers 21:18:00 22:45:00 Encounter Raleigh Trevizo 350.1.13.10 ity of [place] 4.2.7.2.686 [place] [phone] [facility] 0[address] [place] 2018-11-14 2018-11-14 [facility] 1.2.840.114 [id number] Univers 11:26:24 21:17:00 Encounter Jose Trevizo 350.1.13.10 ity of [place] 4.2.7.2.686 [place] [phone] [facility] 8[address] [place] 2018-11-14 2018-11-14 Orders Doctor MARTINEZ 1.2.840.114 [id number] Univers 00:00:00 00:00:00 Only Unassigned, JARROD 350.1.13.10 ity of [place] [facility] 4.2.7.2.686 [place] as [phone] [facility] [address] [place] 2018-11-14 2018-11-14 Nurse JUAN Santos 1.2.840.114 [id number] Univers 00:00:00 00:00:00 Triage Rosy GARAY 350.1.13.10 ity of HOSPITAL 4.2.7.2.686 [place] as [phone] [facility] [address] [place] 2018-11-14 2018-11-14 [facility] 1.2.840.114 [id number] Univers 00:00:00 00:00:00 Jose Trevizo 350.1.13.10 i ty of [place] 4.2.7.2.[place] Profess[place] [phone] [facility] 134 [facility] 2018-11-10 2018-11-11 [facility] 1.2.840.114 [id number] Univers 14:24:00 17:00:00 Encounter Jose Trevizo 350.1.13.10 ity of [place] 4.2.7.2.686 [place] [phone] [facility] [address] [place] 2018-11-11 2018-11-11 [facility] 1.2.840.114 [id number] Univers 00:00:00 00:00:00 Management Jose Trevizo 350.1.13.10 ity of [place] 4.2.7.2.[place] [phone] [address] 2018-11-10 2018-11-10 [facility] 1.2.840.114 [id number] Univers 10:54:59 14:23:00 Encounter Jose Trevizo 350.1.13.10 ity of [place] 4.2.7.2.686 [place] [phone] [facility] 8[address] [place] 2018-11-10 2018-11-10 Routine [facility] 1.2.840.114 [id number] Univers 12:45:49 13:00:49 Jose Trevizo 350.1.13.10 ity of Visit [place] 4.2.7.2.686 [place] Profess[place] [phone] [facility] 134 [facility] 2018-11-07 2018-11-07 Patient ROSEMARY BeattyIT 1.2.960.019 [id number] Univers 00:00:00 00:00:00 Secure Msg Gabby R Aptara 350.1.13.10 ity of CLINICS 4.2.7.2.686 [place] [phone] [facility] 0[address] [place] 2018-11-07 2018-11-07 Telephone [facility] 1.2.840.114 [id number] Univers 00:00:00 00:00:00 Jose Trevizo 350.1.13.10 i ty of [place] 4.2.7.2.[place] [phone] [address] 2018-11-05 2018-11-05 Nurse JUAN Santos 1.2.840.114 [id number] Univers 00:00:00 00:00:00 Triage Rosy Marcial JARROD 350.1.13.10 ity of HOSPITAL 4.2.7.2.686 [place] as [phone] [facility] [address] [place] 2018-11-03 2018-11-03 [facility] 1.2.840.114 [id number] Univers 10:55:07 23:59:00 Encounter Jose Trevizo 350.1.13.10 ity of [place] 4.2.7.2.686 [place] [phone] [facility] 8[address] [place] 2018-11-03 2018-11-03 Routine [facility] 1.2.840.114 [id number] Univers 13:54:15 16:42:19 Jose Trevizo 350.1.13.10 ity of Visit [place] 4.2.7.2.686 [place] Profess[place] [phone] [address] 2018-11-01 2018-11-01 [employer]s Helper 1, [facility] Us Room [facility] 1 .2.840.114 [id number] [facility] 13:11:27 15:24:28 Visit Bud Bartlett R [facility] 350.1.13.10 ity of CLINICS 4.2.7.2.[place] [phone] [facility] [address] 2018-11-01 2018-11-01 Patient HAY Beatty 1.2.015.016 [id number] Univers 00:00:00 00:00:00 Secure Msg Gabby R Y HEALTH 350.1.13.10 ity of CLINICS 4.2.7.2.[place] [phone] [facility] [address] 2018-11-01 2018-11-01 Telephone [facility] 1.2.840.114 [id number] Univers 00:00:00 00:00:00 Jose Trevizo 350.1.13.10 i ty of [place] 4.2.7.2.[place] [phone] [facility] 134 [facility] 2018-10-31 2018-10-31 [facility] 1.2.840.114 [id number] Univers 10:58:00 12:45:00 Encounter Belem Trevizo 350.1.13.10 ity of [place] 4.2.7.2.686 [place] [phone] [place] 059113 [place] 2018-10-28 2018-10-28 Routine [facility] 1.2.840.114 [id number] Univers 08:14:34 15:50:40 Belem Trevizo 350.1.13.10 ity of Visit [place] 4.2.7.2.[place] [phone] [facility] 134 [facility] 2018-10-28 2018-10-28 Hospital Chloe Reese [facility] 1.2.840.114 [id number] Univers 10:33:30 14:55:00 Encounter [place], Belemleonard Trevizo 350.1.13.1 0 ity of [place] 4.2.7.2.[place] [phone] [address] 2018-10-28 2018-10-28 Patient Doctor JUAN 1.2.840.114 [id number] Univers 00:00:00 00:00:00 Secure Msg Unassigned, JARROD 350.1.13.10 ity of [place] [facility]OS[facility] 4.2.7.2.686 [place] as [phone] [facility] [address] 2018-10-24 2018-10-25 Routine Faculty, Moisés Parra [facility] 1.2 .840.114 [id number] Univers 10:00:19 11:32:24 Brandee Odom [employer] 350.1.1 3.10 ity of Visit [facility] 4.2.7.2.686 [place] as MATERNAL [phone] Med ical & CHILD 107 [facility] 2018-10-25 2018-10-25 Patient HAY Beatty 1.2.317.321 [id number] Univers 00:00:00 00:00:00 Secure Msg [facility] 350.1.13.10 ity of CLINICS 4.2.7.2.[place] [phone] [facility] [address] [place] 2018-10-25 2018-10-25 Orders Doctor JUAN 1.2.840.114 [id number] Univers 00:00:00 00:00:00 Only Unassigned, JARROD 350.1.13.10 ity of [place] [facility] 4.2.7.2.686 [place] as [phone] [facility] [address] 2018-10-24 2018-10-24 Hospital Hugh Chloe [facility] 1.2.840.114 [id number] Univers 13:33:00 15:30:00 Encounter Raleigh Trevizo 350.1.13.10 ity of [place] 4.2.[place].2.[place] [phone] [facility] [address] [place] 2018-10-24 2018-10-24 Outpatient R BRANDEE ODOM [facility] [id number] Univers 10:00:00 11:51:[address] [facility] [place] 2018-10-24 2018-10-24 Telephone Dunia SDRIVERA 1.2.840.114 [id number] Univers 00:00:00 00:00:00 Jose Trevizo 350.1.13.10 i ty of [place] 4.2.7.2.[place] [facility] [phone] In dical [facility] 134 [facility] 2018-10-24 2018-10-24 Telephone Soni SDRIVERA 1.2.840.114 [id number] Univers 00:00:00 00:00:00 Grant Trevizo 350.1.13.10 ity of [place].2.7.2.[place] [phone] In dical nal 092 [facility] 2018-10-21 2018-10-21 Mothers Helper 1, Adc Lab [facility] 1.2.840.114 [id number] Univers 16:25:06 16:40:06 Visit Chloe Reese [place] Trevizo 350.1.13.10 ity of [place] 4.2.7.2.[place] [phone] [facility] [address] [place] 2018-10-21 2018-10-21 Routine [place], [facility] 1.2.840.114 [id number] Univers 14:13:39 16:02:12 Belem Trevizo 350.1.13.10 ity of Visit [place] 4.2.7.2.[address] [facility] [phone] In dical nal 134 [facility] 2018-10-21 2018-10-21 Orders Doctor JUAN 1.2.840.114 [id number] Univers 00:00:00 00:00:00 Only Unassigned, JRAROD 350.1.13.10 ity of [place] HOSPITAL 4.2.7.2.686 [place] as [phone] [facility] [address] [place] 2018-10-20 2018-10-20 [facility] 1.2.840.114 [id number] Univers 10:59:20 23:59:00 Encounter Jose Trevizo 350.1.13.10 ity of [place]2.[place].2.[place] [phone] [facility] 8[address] [place] 2018-10-12 2018-10-12 Patient Doctor JUAN 1.2.840.114 [id number] Univers 00:00:00 00:00:00 Secure Msg Unassigned, JARROD 350.1.13.10 ity of [place] HOSPITAL 4.2.7.2.686 [place] as [phone] [facility] 0[address] [place] 2018-09-30 2018-09-30 Office Jonas [facility] 1.2.464.369 [id number] Univers 14:06:24 14:55:33 Visit Chris Trevizo 350.1.13.10 i [facility] 4.2.7.2.686 Kari Barrera [phone] In dical nal [address] [facility] 2018-09-14 2018-09-14 Outpatient R AMIE, [facility] [id number] [facility] 13:54:55 13:59:00 [facility] Results Test Description Test Time Test Comments Results Result Comments Source ACETAMINOPHEN 2022-03-11 00:28:27 Test Item Value Reference Range Interpretation Comme nts ACETAMINOP (test code = 0584158243) 10.0-30.0 L ADRIENNE (test code = ADRIENNE) Toxic: Greater than 200 ug/mL @ 4 hour post ingestion or greater than 50 ug/mL @ 12 hour post ingestion Lab Interpretation (test code = Abnormal 51126-8) [facility]44 ALCOHOL<10mg/dL03/10/2022 6:20 PM [facility]<10 [id number] Toxic>100 Depression of SOFTWARE QUALITY TESTER>400 Fatalities [facility]ortedAd[facility] TexasSALICYLATE2022-12-14 00:18:36 SALICYLATE<10mg/L105/11/2021 6:18 PM [facility] Range: ? Analgesic and Antipyretic Use ? 20- 100 mg/L ? ? Anti-Inflammatory Use ? 100-250 mg/L Toxic Range: ? Greater than 300 mg/LUnMichael E. DeBakey [facility] of [facility] Affairs Medical CenterCOMP. METABOLIC PANEL (35024)2022-03-11 00:17:50 Test Item Value Reference Range Interpretation Comments NA (test code = 138 mmol/L 135-145 [id number]) K (test code = 4.2 mmol/L 3.5-5.0 5595451319) CL (test code = 102 mmol/L 98-108 7743542651) CO2 TOTAL (test code = 32 mmol/L 23-31 H [id number]) AGAP (test code = 2-16 7415969192) BUN (test code = 14 mg/dL 7-23 6855927391) GLUCOSE (test code = 57 mg/dL 70-110 L [id number]) CREATININE (test code = 0.85 mg/dL 0.50-1.04 5690681992) TOTAL BILI (test code = 0.3 mg/dL 0.1-1.4 [id number]) CALCIUM (test code = 9.8 mg/dL 8.6-10.6 2993264120) T PROTEIN (test code = 6.8 g/dL 6.3-8.2 4910527106) ALBUMIN (test code = 4.2 g/dL 3.5-5.0 0647300421) ALK PHOS (test code = 66 U/L 34-122 5717071768) ALTv (test code = 12 U/L 5-35 1742-6) AST(SGOT) (test code = 15 U/L 13-40 4305693831) eGFR (test code = mL/min/1.73m2 9276548515) ADRIENNE (test code = ADRIENNE) Association of [...] tests). Lab Interpretation Abnormal (test code = 61900-2) [facility] WITH [id number] 00:11:30 Test Item Value Reference Range Interpretation Comments WBC (test code = See_Comment [Automated 6690-2) message] The sy stem which generated this result transmitted reference range : 4.30 - 11.10 10*3/?L. The reference range was not used to interpret this result as normal/abnormal . RBC (test code = See_Comment [Automated 789-8) message] The sy stem which generated this [...] RDW-SD (test code = 48.5 fL 39.0-49.9 85648-9) RDW-CV (test code = 13.9 % 12.0-15.5 788-0) PLT (test code = See_Comment [Automated 777-3) message] The sy stem which generated this result transmitted reference range : 166 - 358 10*3/ ?L. The reference r paulina was not used to interpret this result as normal/abnormal . MPV (test code = 10.6 fL 9.5-12.9 75902-3) NRBC/100 WBC (test See_Comment [Automat ed code = 8522148341) message] The system which generated this result transmitted reference range : 0.0 - 10.0 /100 WBCs. The refer ence range was not u sed to interpret th is result as normal/abnormal . NRBC x10^3 (test code See_Comment [Auto mated = 3317917618) message] The s ystem which generated this result transmitted reference range : 10*3/?L. The reference range was not used to interpret this result as normal/abnormal . GRAN MAT (NEUT) % 62.2 % (test code = 770-8) IMM GRAN % (test code 0.30 % = 3437661908) LYMPH % (test code = 27.1 % 736-9) MONO % (test code = 7.8 % 5905-5) EOS % (test code = 1.5 % 713-8) BASO % (test code = 1.1 % 706-2) GRAN MAT x10^3(ANC) 4.56 10*3/uL 1.88-7.09 (test code = 4522530798) IMM GRAN x10^3 (test 0.00-0.06 code = 2770787832) LYMPH x10^3 (test code 1.99 10*3/uL 1.32-3.29 = 731-0) MONO x10^3 (test code 0.57 10*3/uL 0.33-0.92 = 742-7) EOS x10^3 (test code = 0.11 10*3/uL 0.03-0.39 711-2) BASO x10^3 (test code 0.08 10*3/uL 0.01-0.07 H = 704-7) Lab Interpretation Abnormal (test code = 35327-3) [facility] [id number] 23:46:00 Test Item Value Reference Range Interpretation Comments POCT PREG (test code = 1605) NEGATIVE On board controls acceptable with present C Line (test code = 3574) POCT PREG LOT # (test code = 3575) [id number] POCT PREG TEST DATE (test 06/27/2023 code = 3576) Lab Interpretation (test code = Normal 62440-1) [facility] URINALYSIS W SPECIFIC [id number] 16:50:00 Test Item Value Reference Range Interpretation [...] U APPEAR (test code = clear 3267) [facility] [id number] 16:50:00 Test Item Value Reference Range Interpretation [...] U APPEAR (test code = clear 3267) [facility]"
[2022-09-21] MEDS ORDERED: LORAZEPAM 1 MG TABLET ONE (12:03)
[2022-09-21] MEDS ORDERED: HYDROMORPHONE HCL 1 MG/ML INJ ONE (12:03)
[2022-09-21] MEDS ORDERED: ONDANSETRON 4 MG (ODT) TAB ONE (12:04)
[2022-09-21] MEDS ORDERED: NA CHLORIDE 0.9% 500 ML ONE (14:29)
--- NOTE | 2022-09-21 15:06 | RAD REPORT ---
EXAM DESCRIPTION: MRI - Lumbar Spine Wo Con - 09/21/2022 2:40 pm CLINICAL HISTORY: Back pain status post fall COMPARISON: July 2022 CT TECHNIQUE: Sagittal T1, T2 and STIR weighted sequences were obtained. Axial T1 and T2 sequences were obtained through the lumbar disc levels. FINDINGS: Mild spondylosis involves the lumbar spine. No significant central/foraminal stenosis. No vertebral body compression fracture. Patient has a known subacute fracture right transverse process T2. This area was inadequately imaged on this examination. IMPRESSION: Mild spondylosis lumbar spine
--- NOTE | 2022-09-21 16:09 | RAD REPORT ---
EXAM DESCRIPTION: RAD - Foot Left 3 View - 09/21/2022 3:36 pm CLINICAL HISTORY: Left Foot pain FINDINGS: No fracture or dislocation is seen. No bone or joint abnormality noted
--- NOTE | 2022-09-21 16:18 | ER ---
Nurse's Notes [facility] Name: Sharyn Franco Age: 42 yrs Sex: Female : 1980 Arrival Date: 09/21/2022 Time: 11:29 Bed 13 Private MD: Diagnosis: Low back pain Presentation: 09/21 11:37 Chief complaint: Patient states: A month ago told she had a broken back. Pain is nj1 getting worse, patient drove self here. Coronavirus screen: Vaccine status: Patient reports being unvaccinated. Ebola Screen: Patient denies travel to an Ebola-affected area in the 21 days before illness onset. Initial Sepsis Screen: Does the patient meet any 2 criteria? No. Patient's initial sepsis screen is negative. Does the patient have a suspected source of infection? No. Patient's initial sepsis screen is negative. Risk Assessment: Do you want to hurt yourself or someone else? Patient reports no desire to harm self or others. Onset of symptoms was August 10, 2022. 11:37 Method Of Arrival: Ambulatory nj1 11:37 Acuity: LIS 3 nj1 Historical: - Allergies: 11:39 QUINOLONES; nj1 11:39 Ultram; nj1 - PMHx: 11:39 epilepsy; Hypothyroidism; nj1 - Immunization history:: Client reports having NOT received the Covid vaccine. - Social history:: Smoking status: Patient denies any tobacco usage or history of. Screenin:45 [facility] ED Fall Risk Assessment (Adult) History of falling in the last 3 months, ko1 including since admission No falls in past 3 months (0 pts) Confusion or Disorientation No (0 pts) Intoxicated or Sedated No (0 pts) Impaired Gait No (0 pts) Mobility Assist Device Used No (0 pt) Altered Elimination No (0 pt) Score/Fall Risk Level 0 - 2 = Low Risk Oriented to surroundings, Maintained a safe environment, Educated pt \T\ family on fall prevention, incl call for assistance when getting out of bed, Assessed \T\ reinforced patient's understanding of fall precautions, Provided non-skid footwear, Hourly rounding (assess needs \T\ fall precautionary measures) done, Used ambulatory aids as needed (educated on \T\ assisted with), Used gait belt as appropriate. Abuse screen: Denies threats or abuse. Denies injuries from another. Nutritional screening: No deficits noted. Tuberculosis screening: No symptoms or risk factors identified. Assessment: 11:45 General: Appears distressed, uncomfortable, Behavior is appropriate for age, anxious, ko1 restless. Pain: Complains of pain in back. Neuro: Level of Consciousness is awake, alert, obeys commands, Oriented to person, place, time, situation, Appropriate for age. Cardiovascular: No deficits noted. Respiratory: No deficits noted. GI: No deficits noted. : No deficits noted. EENT: No deficits noted. Derm: No deficits noted. Musculoskeletal: No deficits noted. Vital Signs: 11:37 BP 138 / 90; Pulse 86; Resp 18; Temp 98.4(O); Pulse Ox 100% on R/A; Weight 49.9 kg; nj1 Height 5 ft. 5 in. ; Pain 10/10; 15:31 BP 124 / 76; Pulse 78; Resp 15; Pulse Ox 99% on R/A; ko1 16:43 BP 131 / 75; Pulse 82; Resp 18; Pulse Ox 99% ; ko1 11:37 Body Mass Index 18.30 (49.90 kg, 165.1 cm) nj1 11:37 Pain Scale: Adult [facility] ED Course: 11:30 Patient arrived in ED. mr 11:30 Fly Renee PA is PHCP. [facility] 11:30 Kosta Garcia MD is Attending Physician. jm 11:39 Triage completed. nj1 11:40 Arm band placed on right wrist. nj1 11:41 Charisse Arrington, RAMÓN is Primary Nurse. ko1 11:45 Patient has correct armband on for positive identification. Bed in low position. Call ko light in reach. Side rails up X 1. Pulse ox on. NIBP on. Door closed. Noise minimized. Lights dimmed. Warm blanket given. 11:45 No provider procedures requiring assistance completed. ko1 12:00 Radiology exam delayed due to test not completed at this time. bq 14:11 Patient moved to MRI via wheelchair. ko1 14:32 MRI Lumbar Spine wo Con In Process Unspecified. EDMS 15:00 Inserted saline lock: 22 gauge in right antecubital area, using aseptic technique. ko1 Blood collected. 15:36 Foot Left 3 View In Process Unspecified. EDMS 16:19 Selbst, Octaviano, DPM is Referral Physician. m 16:28 IV discontinued, intact, bleeding controlled, No redness/swelling at site. Pressure ko1 dressing applied. Administered Medications: 11:55 Drug: Ondansetron PO 4 mg Route: PO; ko1 11:57 Drug: LORazepam PO 1 mg Route: PO; ko1 12:02 Drug: HYDROmorphone IM 1 mg Route: IM; Site: right ventrogluteal; ko1 15:04 Drug: NS 0.9% IV 500 ml Route: IV; Rate: bolus; Site: right antecubital; ko1 Medication: 11:45 VIS not applicable for this client. ko1 Outcome: 16:18 Discharge ordered by MD. williams 16:32 Discharged to home ambulatory. ko1 16:32 Condition: improved 16:32 Discharge instructions given to patient, Instructed on discharge instructions, follow up and referral plans. medication usage, Demonstrated understanding of instructions, follow-up care, medications, Prescriptions given X 1. 16:42 Patient left the ED. ko1 Signatures: Dispatcher [employer] EDMS Fly Renee PA PA Brandee Alan mr RafaeladanaKaci Kathy RN RN ko1 Grisel Marinelli RN RN nj1
--- NOTE | 2022-09-21 16:18 | EDPHYS ---
Physician Documentation [facility] Name: Sharyn Franco Age: 42 yrs Sex: Female : 1980 Arrival Date: 09/21/2022 Time: 11:29 Bed 13 Private MD: ED Physician Kosta Garcia HPI: 09/21 11:49 This 42 yrs old Female presents to ER via Ambulatory with complaints of Back Pain. jmm 11:49 The patient presents with pain that is acute. Onset: The symptoms/episode jmm began/occurred 1 month(s) ago. This is a 42 year old female with a history of epilepsy, hypothyroidism that presents to the ED with complaints of lower back pain, which has been ongoing since a fall in July. Patient was diagnosed with an L2 transverse process fracture. . Historical: - Allergies: 11:39 QUINOLONES; nj1 11:39 Ultram; nj1 - PMHx: 11:39 epilepsy; Hypothyroidism; nj1 - Immunization history:: Client reports having NOT received the Covid vaccine. - Social history:: Smoking status: Patient denies any tobacco usage or history of. ROS: 11:39 Constitutional: Negative for fever, chills, and weight loss, Cardiovascular: Negative jmm for chest pain, palpitations, and edema, Respiratory: Negative for shortness of breath, cough, wheezing, and pleuritic chest pain. 11:39 Back: Positive for pain with movement. 11:39 All other systems are negative. Exam: 11:39 Head/Face: atraumatic. Eyes: EOMI, no conjunctival erythema appreciated ENT: Moist jmm Mucus Membranes Neck: Trachea midline, Supple Chest/axilla: Normal chest wall appearance and motion. Cardiovascular: Regular rate and rhythm. No edema appreciated Respiratory: Normal respirations, no respiratory distress appreciated Abdomen/GI: Non distended 11:39 Skin: General appearance color normal MS/ Extremity: Moves all extremities, no obvious deformities appreciated, no edema noted to the lower extremities Neuro: Awake and alert Psych: Behavior is normal, Mood is normal, Patient is cooperative and pleasant 11:39 Constitutional: The patient appears alert, awake, uncomfortable. 11:39 Back: pain, that is moderate, of the lumbar area and right low back, muscle spasm, is appreciated in the right low back. Vital Signs: 11:37 BP 138 / 90; Pulse 86; Resp 18; Temp 98.4(O); Pulse Ox 100% on R/A; Weight 49.9 kg; nj1 Height 5 ft. 5 in. ; Pain 10/10; 15:31 BP 124 / 76; Pulse 78; Resp 15; Pulse Ox 99% on R/A; ko1 16:43 BP 131 / 75; Pulse 82; Resp 18; Pulse Ox 99% ; ko1 11:37 Body Mass Index 18.30 (49.90 kg, 165.1 cm) nj1 11:37 Pain Scale: Adult nj1 MDM: 11:49 Patient medically screened. [facility] 14:05 ED course: I was made aware by medication technician, that the patient did not want to go to [facility] until I had palpated her lower back. Patient stated she wanted me to palpate a mass like area on her right lower spine. Patient then grabbed my hand and placed on the superior side of her right buttock. Patient also stated she had a foreign body sensation to her right great toe and requested further evaluation. Lastly, patient asked for IV fluids. . 17:09 Differential diagnosis: Osteomyelitis ruptured disc, spinal injury, vertebral fracture. [facility] Data reviewed: vital signs, nurses notes. I considered the following discharge prescriptions or medication management in the emergency department Medications were administered in the Emergency Department. See MAR. Counseling: I had a detailed discussion with the patient and/or guardian regarding: the historical points, exam findings, and any diagnostic results supporting the discharge/admit diagnosis, radiology results, the need for outpatient follow up, to return to the emergency department if symptoms worsen or persist or if there are any questions or concerns that arise at home. 09/21 12:02 Order name: MRI Lumbar Spine wo Con; Complete Time: 15:09 [facility] 09/21 15:36 Order name: Foot Left 3 View; Complete Time: 16:14 EDNJ 09/21 14:12 Order name: Saline Lock; Complete Time: 15:04 [facility] Administered Medications: 11:55 Drug: Ondansetron PO 4 mg Route: PO; ko1 11:57 Drug: LORazepam PO 1 mg Route: PO; ko1 12:02 Drug: HYDROmorphone IM 1 mg Route: IM; Site: right ventrogluteal; ko1 15:04 Drug: NS 0.9% IV 500 ml Route: IV; Rate: bolus; Site: right antecubital; ko1 Disposition: 17:18 Co-signature as Attending Physician, Kosta Garcia MD. rn Disposition Summary: 09/21/22 16:18 Discharge Ordered Location: Home [facility] Condition: Stable [facility] Diagnosis - Low back pain [facility] Followup: [facility] - With: Private Physician - When: 2 - 3 days - Reason: Recheck today's complaints, Continuance of care, Re-evaluation by your physician Followup: [facility] - With: Octaviano Blood DPM - When: 2 - 3 days - Reason: Recheck today's complaints, Continuance of care, Re-evaluation by your physician Discharge Instructions: - Discharge Summary Sheet [facility] - Muscle Cramps and Spasms [facility] Forms: - Medication Reconciliation Form [facility] - Thank You Letter [facility] - Antibiotic Education [facility] - Prescription Opioid Use [facility] - [email or web address] [facility] Prescriptions: - Zanaflex 4 mg Oral Tablet - take 1 tablet by ORAL route every 8 hours As needed; 20 tablet; Refills: 0, [facility] Product Selection Permitted Signatures: Dispatcher [employer] EDMS Fly Renee, GURU PA rudy Kosta Garcia MD MD rn Charisse Arrington RN RN ko1 Grisel Marinelli RN RN nj1 Corrections: (The following items were deleted from the chart) 12:42 11:56 Spine Lumbar Wo Con+CT.RAD.BRZ ordered. EDMS EDMS 15:36 14:13 Foot Right 3 View+RAD.RAD.BRZ ordered. EDMS EDMS
[2022-09-21 16:56] VITALS: TEMP 98.4
[2022-09-21 17:02] VITALS: BP 124/76; O2SAT 99
== END 2022-09-21 16:42 | disposition home or self-care (01) ==
LOC: ER 11:29
DX: M54.50 Low back pain, unspecified (principal); Z88.5 Allergy status to narcotic agent
CPT/HCPCS: 73630; 72148; Q0162; J1170; J7040

== ENCOUNTER 2022-09-28 18:12 | Emergency (ER) | payer OTHER ==
--- OUTSIDE RECORDS SUMMARY | 2022-09-28 18:31 | XMS REPORT | Continuity of Care Document ---
:1980 Author Organization [facility] t Address [address] [facility] [place] [address] Care Team Providers Name Role Phone Arik Benz MD Primary Care Physician ALY RYAN Attending Clinician Unavailable TEO INGRAM Attending Clinician Unavailable ARIK BENZ Attending Clinician Unavailable Arik Benz MD Attending Clinician Doctor Unassigned, [place] Attending Clinician Unavailable Donna Lopez MD Attending Clinician [phone] DONNA LOPEZ Attending Clinician Unavailable Gema Cruz LMSW Attending Clinician Teo Ingram PA-C Attending Clinician Nurse, [facility] Attending Clinician Unavailable Unknown, Attending Attending Clinician Unavailable Abril Urias RN Attending Clinician Unavailable Lab, c Attending Clinician Unavailable Elle Owen MD Attending Clinician ERIC FERNANDEZ Attending Clinician Unavailable Eric Fernandez MD Attending Clinician [phone] ADUMELLE L Attending Clinician Unavailable Avinash ANDRES, Emilia M Attending Clinician Unavailable Royb MELGAR, Helen Attending Clinician Unavailable KEITH YI Attending Clinician Unavailable Darryn Owusu DO Attending Clinician Keith Yi MD Attending Clinician Ubaldo RIGGINS, Onel Attending Clinician KIZZY SANTOS Attending Clinician Unavailable KIZZY SANTOS Attending Clinician Unavailable PATRICIA NEWELL Attending Clinician Unavailable Bieber ACNPatricia Coronado Attending Clinician OLIVA STEPHENS Attending Clinician Unavailable CARMEN MCCLAIN Attending Clinician Unavailable Carmen Carlin Attending Clinician OLYA HOLLOWAY Attending Clinician Unavailable Lab, Ang - Db Attending Clinician Unavailable Chet MELGAR, Trinidad Jones Attending Clinician YOKO BRYANT Attending Clinician Unavailable Sean Meléndez MD Attending [...] Adc Lab Attending Clinician Unavailable [facility], [facility] Attending Clinician Unavailable Shira Chaudhary MD M Attending Clinician Pedro Luis Couch MD, Cade Attending Clinician [phone] Myrtle Garcia Attending Clinician UNKNOWN, ATTENDING Attending Clinician Unavailable JAIDEN ROLON Attending Clinician Unavailable Rickey RN, Martha Attending Clinician Unavailable Clinic, [facility] Neurology Continuity Attending Clinician Unavail able [...] Unavailable ARIK CARDONA III Attending Clinician Unavailable Naseem RIGGINS, Grant Koo Attending Clinician Juma Almendarez Attending Clinician Shelby RIGGINS, Aly Marcial Attending Clinician Pob, Adc Lab Main Attending Clinician Unavailable Only, Adc Test Attending Clinician Unavailable Lab, Adc Fam Pob I Attending Clinician Unavailable Jessika RIGGINS, Maximus Attending Clinician Justin Oconnor MD Attending Clinician Asplin_B Attending Clinician Unavailable JUSTIN OCONNOR Attending Clinician Unavailable Edna Dubois Attending Clinician Leroy Christine Attending Clinician Beth Kang MD Attending Clinician Tico Gutierres Attending Clinician Jane Chase Attending Clinician Care, Provider 12 - Adult Urgent Attending Clinician Unavail able Provider, [facility] Attending Clinician Unavailable TICO CHI [...] MELGAR, Gabby Gasca Attending Clinician Unavailable 1, [facility] Usg Room Attending Clinician Unavailable Bud Bartlett Attending Clinician Belem Apodaca MD Attending Clinician Faculty, [facility] Attending Clinician Unavailable Brandee Odom MD [...] Clinician Unavailable Juma Mcdaniels MD Admitting Clinician Vick RIGGINS, Chloe Storey Admitting Clinician Jonny RIGGINS, [...] Number Effective Date Expiration Date Aggie baker [facility] [id number] 2018 00:00:00 [facility] [id number] ([facility]) Problems Condition Condition Condition Status Onset Resolution Last Treating Co mments Source Name Details Category Date Date Treatment Clinician Date Attention Attention Disease Active Uni vers deficit deficit 3-13 ity of disorder disorder 00:00: [place] predominan predominan 00 Me dical t t Branch inattentiv inattentiv e type e type COVID-19 COVID-19 Disease Active Unive rs virus virus 2-07 ity of infection [facility] Gestationa Gestationa Disease Active 2020-03 U nivers l l 2-27 [place]y of hypertens[place]ens[place] on, third 00 [facility] trimester trimester Bran ch 37 weeks 37 weeks Disease Active 2020-03 Unive rs gestation gestation 2-27 ity of of of 00:00: [place] 00 [facility] Non-reassu Non-reassu Disease Active 2020-03 U nivers ring ring 2-26 [place] of electronic [place] monitoring monitoring Br anch tracing tracing Single Single Disease Active 2020-03 Univers liveborn, liveborn, 2-26 ity of born in born in 00:00: [facility], 00 [facility] delivered delivered Bran ch by vaginal by vaginal delivery delivery Gastroente Gastroente Disease Active 2020-03 U nivers ritis ritis 2- ity of 00:00: [place] Medical Branch Disease Active 2020-03 Univers uterine uterine 2- ity of contractio contractio [place] Medical third third Branch trimester, trimester, antepartum antepartum Cervical Cervical Disease Active Unive rs spondylosi spondylosi 8-31 it y of s s 00:00: [place] 00 Medical Branch History of History of Disease Active U nivers pyelonephr pyelonephr 7-02 it y of itis itis 00:00: [place] during during 00 Medical Bran ch 36 weeks 36 weeks Disease Active Unive rs gestation gestation 6-13 ity of of of 00:00: [place] 00 [facility] Branch High risk High risk Disease Active Uni vers , , 6- it y of multigravi multigravi [place] of da of 00 Medical advanced advanced Branch maternal maternal age in age in third third trimester trimester 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 2-13 it y of ia ia 00:00: [place] 00 Medical Branch Seizure Seizure Disease Active 2020-0 Univers disorder disorder 1-21 ity of 00:00: [place] 00 Medical Branch Anxiety Anxiety Disease Active 2020-0 Univers 1-10 ity of 00:00: [place] 00 Medical Branch Gastroesop Gastroesop Disease Active 2020-0 U seraers hageal hageal 1-10 ity of reflux reflux 00:00: [place] disease disease 00 Medical without without Branch esophagiti esophagiti s s Nausea and Nausea and Disease Active 2020-0 U nivers vomiting vomiting 1-10 ity of in in 00:00: [place] 00 [facility] Branch Migraine Migraine Disease Active 2019- Unive rs with aura with aura 1-10 ity of and and 00:00: [place] without without 00 Medical status status Branch [...] of dism dism 00:00: g of this [place] 00 note Medical might be Branch different from the original. Followed by endocrino logy Ganglion Ganglion Disease Active Overview: Un mayank cyst cyst 09-14 Formattin ity of 00:00: g of this [place] 00 note Medical might be Branch different from the original. 09/14/18 - seen by Dr. Holloway. Plan to have it excised pp. Positive Positive Disease Active Overview: Un mayank urine drug urine drug 08-25 Formattin ity of screen screen 00:00: g of this [place] 00 note Medical might be Branch different [...] of , , 00:00: g of this [place] antepartum antepartum 00 note Me dical might be Branch different from the original. 08/24/18 - hypothyro idism, Synthroid 88 mcg. TSH Q8-10 weeks if normal, otherwise 3weeks after dose adjustmen ts. 08/24/18 - TSH4.05, FT4 0.85. Increase Synthroid to 112 mcg. Repeat TFTs in 3 weeks. Maternal Maternal Disease Active Unive rs obesity, obesity, 5-29 ity of ante[place] Allergies, Adverse Reactions, Alerts Allergy Allergy Status [...] mayank ES Class 1-04 ity of 00:00: [facility] Social History Social Habit Start Date Stop Date Quantity Comments Source Exposure to 2022-08-11 2022-08-21 Not sure [facility] SARS-CoV-2 00:00:00 12:22:00 [facility] (event) [place] Alcohol intake 2022-08-21 2022-08-21 Ex-drinker University 00:00:00 00:00:00 (finding) [facility] Tobacco Comment 2022-04-30 2022-04-30 N/A Universit y of 00:00:00 00:00:00 [facility] Tobacco use and 2022-04-30 2022-04-30 Smokeless tobacco Un iversity of exposure 00:00:00 00:00:00 non-user [facility] Sex [birth year] At [birth year] Universit y of 00:00:00 00:00:00 [facility] Smoking Status Start Date Stop Date Source Never smoked tobacco [facility] Medications Ordered Filled Start Stop Current Ordering Indication Dosage Frequency Signature Comments Components Source Medication Medication Date Date Medication? Clinician (SIG) Name Name CLONAZEPAM Yes [id number] 1mg TAKE 1 Univers 1 mg tablet 6-28 TABLET BY ity of 00:00: MOUTH IN [place] 00 THE Medical MORNING Branch AND 1 TABLET AT NOON AND 1 TABLET IN THE EVENING. CLONAZEPAM 2022-0 Yes [id number] 1mg TAKE 1 Univers 1 mg tablet 6-28 TABLET BY ity of 00:00: MOUTH IN [place] 00 THE Medical MORNING Branch AND 1 TABLET AT NOON AND 1 TABLET IN THE EVENING. HYDROcodone 2022-0 Yes [id number] 1{tbl} Take 1 Un mayank -acetaminop 6-28 tablet by ity of hen (NORCO) 00:00: mouth [place] 7.5-325 mg 00 every 8 Medica l per tablet (eight) Branch hours as needed for Pain. Indication s: acute pain HYDROcodone 2022-0 Yes [id number] 1{tbl} Take 1 Un mayank -acetaminop 6-21 tablet by ity of hen (NORCO) 00:00: mouth [place] 7.5-325 mg 00 every 8 Medica l per tablet (eight) Branch hours as needed for Pain. Indication s: acute pain HYDROcodone 2022-0 Yes [id number] 1{tbl} Take 1 Un mayank -acetaminop 6-21 tablet by ity of hen ([employer]CO) 00:00: mouth [place] 7.5-325 mg 00 every 8 Medica l per tablet (eight) Branch hours as needed for Pain. Indication s: acute pain HYDROcodone 2022-0 2022- No 4647 1{tbl} Take 1 U nivers -acetaminop 6-21 06-28 tablet by it y of hen ([place]) 00:00[place] 7.5-325 mg 00 :00 every 8 Medica l per tablet (eight) Branch hours as needed for Pain. Indication s: acute pain HYDROcodone 2022-0 Yes [id number] 1{tbl} Take 1 Un mayank -acetaminop 6-14 tablet by ity of hen (NORCO) 00:00: mouth [place] 7.5-325 mg 00 every 8 Medica l per tablet (eight) Branch hours as needed for Pain. Indication s: acute pain dextroamphe 3-0 Yes [id number] 20mg Take 1 Univers tamine-amph 6-07 tablet by ity of etamine 00:00: mouth in [place] (ADDERALL) 00 the Medical 20 mg morning Branch tablet and 1 tablet at noon and 1 tablet in the evening. HYDROcodone 2022-0 Yes [id number] 1{tbl} Take 1 Un mayank -acetaminop 6-07 tablet by ity of hen (NORCO) 00:00: mouth [place] 7.5-325 mg 00 every 8 Medica l per tablet (eight) Branch hours as needed for Pain. Indication s: acute pain dextroamphe 2023-0 Yes [id number] 20mg Take 1 Univers tamine-amph 6-07 tablet by ity of etamine 00:00: mouth in [place] (ADDERALL) 00 the Medical 20 mg morning Branch tablet and 1 tablet at noon and 1 tablet in the evening. HYDROcodone 2023-0 Yes [id number] 1{tbl} Take 1 Un mayank -acetaminop 6-07 tablet by ity of hen (NORCO) 00:00: mouth [place] 7.5-325 mg 00 every 8 Medica l per tablet (eight) Branch hours as needed for Pain. Indication s: acute pain dextroamphe 2023-0 Yes [id number] 20mg Take 1 Univers tamine-amph 6-07 tablet by ity of etamine 00:00: mouth in [place] (ADDERALL) 00 the Medical 20 mg morning Branch tablet and 1 tablet at noon and 1 tablet in the evening. HYDROcodone 2023-0 Yes [id number] 1{tbl} Take 1 Un mayank -acetaminop 6-07 tablet by ity of hen (NORCO) 00:00: mouth [place] 7.5-325 mg 00 every 8 Medica l per tablet (eight) Branch hours as needed for Pain. Indication s: acute pain dextroamphe 2023-0 Yes [id number] 20mg Take 1 Univers tamine-amph 6-07 tablet by ity of etamine 00:00: mouth in [place] (ADDERALL) 00 the Medical 20 mg morning Branch tablet and 1 tablet at noon and 1 tablet in the evening. HYDROcodone 2023-0 Yes [id number] 1{tbl} Take 1 Un mayank -acetaminop 6-07 tablet by ity of hen (NORCO) 00:00: mouth [place] 7.5-325 mg 00 every 8 Medica l per tablet (eight) Branch hours as needed for Pain. Indication s: acute pain dextroamphe 2023-0 Yes [id number] 20mg Take 1 Univers tamine-amph 6-07 tablet by ity of etamine 00:00: mouth in [place] (ADDERALL) 00 the Medical 20 mg morning Branch tablet and 1 tablet at noon and 1 tablet in the evening. HYDROcodone 2023-0 Yes [id number] 1{tbl} Take 1 Un mayank -acetaminop 6-07 tablet by ity of hen (NORCO) 00:00: mouth [place] 7.5-325 mg 00 every 8 Medica l per tablet (eight) Branch hours as needed for Pain. Indication s: acute pain dextroamphe 2023-0 Yes [id number] 20mg Take 1 Univers tamine-amph 6-07 tablet by ity of etamine 00:00: mouth in [place] (ADDERALL) 00 the Medical 20 mg morning Branch tablet and 1 tablet at noon and 1 tablet in the evening. HYDROcodone 2023-0 Yes [id number] 1{tbl} Take 1 Un mayank -acetaminop 6-07 tablet by ity of hen (NORCO) 00:00: mouth [place] 7.5-325 mg 00 every 8 Medica l per tablet (eight) Branch hours as needed for Pain. Indication s: acute pain dextroamphe 2023-0 Yes [id number] 20mg Take 1 Univers tamine-amph 6-07 tablet by ity of etamine 00:00: mouth in [place] (ADDERALL) 00 the Medical 20 mg morning Branch tablet and 1 tablet at noon and 1 tablet in the evening. HYDROcodone 2023-0 Yes [id number] 1{tbl} Take 1 Un mayank -acetaminop 6-07 tablet by ity of hen (NORCO) 00:00: mouth [place] 7.5-325 mg 00 every 8 Medica l per tablet (eight) Branch hours as needed for Pain. Indication s: acute pain dextroamphe 2023-0 Yes [id number] 20mg Take 1 Univers tamine-amph 6-07 tablet by ity of etamine 00:00: mouth in [place] (ADDERALL) 00 the Medical 20 mg morning Branch tablet and 1 tablet at noon and 1 tablet in the evening. dextroamphe 2023-0 Yes [id number] 20mg Take 1 Univers tamine-amph 6-07 tablet by ity of etamine 00:00: mouth in [place] (ADDERALL) 00 the Medical 20 mg morning Branch tablet and 1 tablet at noon and 1 tablet in the evening. dextroamphe 2023-0 Yes [id number] 20mg Take 1 Univers tamine-amph 6-07 tablet by ity of etamine 00:00: mouth in [place] (ADDERALL) 00 the Medical 20 mg morning Branch tablet and 1 tablet at noon and 1 tablet in the evening. dextroamphe 2023-0 Yes [id number] 20mg Take 1 Univers tamine-amph 6-07 tablet by ity of etamine 00:00: mouth in [place] (ADDERALL) 00 the Medical 20 mg morning Branch tablet and 1 tablet at noon and 1 tablet in the evening. dextroamphe 2023-0 Yes [id number] 20mg Take 1 Univers tamine-amph 6-07 tablet by ity of etamine 00:00: mouth in [place] (ADDERALL) 00 the Medical 20 mg morning Branch tablet and 1 tablet at noon and 1 tablet in the evening. HYDROcodone 2022-0 3- No 4647 1{tbl} Take 1 U nivers -acetaminop 6-07 06-14 tablet by it y of hen ([place]) 00:00: 00:[place] 7.5-325 mg 00 :00 every 8 Medica l per tablet (eight) Branch hours as needed for Pain. Indication s: acute pain HYDROcodone 2022-0 Yes [id number] 1{tbl} Take 1 Un mayank -acetaminop 6-01 tablet by ity of hen (NORCO) 00:00: mouth [place] 7.5-325 mg 00 every 8 Medica l per tablet (eight) Branch hours as needed for Pain. Indication s: acute pain HYDROcodone 2022-0 Yes [id number] 1{tbl} Take 1 Un mayank [...] Pain. Indication s: acute pain HYDROcodone 3-0 2023- No 4647 1{tbl} Take 1 U nivers -acetaminop 6- 06-07 tablet by it y of hen ([place]) 00:00[place] 7.5-325 mg 00 :00 every 8 Medica l per tablet (eight) Branch hours as needed for Pain. Indication s: acute pain acetaminoph 2022-0 2022- No Take by Un mayank en (TYLENOL 5-26 05-26 mouth. ity o f ORAL) 12:07: 00:00 [place] 46 :00 Medical Branch acetaminoph 2022-0 2022- No Take by Un mayank en (TYLENOL 5-26 05-26 mouth. ity o f ORAL) 12:07: 00:00 [place] 46 :00 Medical Branch acetaminoph 2022-0 2022- No Take by Un mayank en (TYLENOL 5-26 05-26 mouth. ity o f ORAL) 12:07: 00:00 [place] 46 :00 Medical Branch acetaminoph 2022-0 2022- No Take by Un mayank en (TYLENOL 5-26 05-26 mouth. ity o f ORAL) 12:07: 00:00 [place] 46 :00 Medical Branch acetaminoph 3-0 2022- No Take by Un mayank en (TYLENOL 5-26 05-26 mouth. ity o f ORAL) 12:07: 00:00 [place] 46 :00 Medical Branch gabapentin 2023-0 Yes [id number] 300mg Take 1 Univers 300 mg 5-26 capsule by ity of capsule 00:00: mouth at [place] [address] bedtime. Medical Branch gabapentin 2023-0 Yes [id number] 300mg Take 1 Univers 300 mg 5-26 capsule by ity of capsule 00:00: mouth at [place] [address] bedtime. Medical Branch gabapentin 2023-0 Yes [id number] 300mg Take 1 Univers 300 mg 5-26 capsule by ity of capsule 00:00: mouth at [place] [address] bedtime. Medical Branch gabapentin 2023-0 Yes [id number] 300mg Take 1 Univers 300 mg 5-26 capsule by ity of capsule 00:00: mouth at [place] [address] bedtime. Medical Branch gabapentin 2023-0 Yes [id number] 300mg Take 1 Univers 300 mg 5-26 capsule by ity of capsule 00:00: mouth at [place] 00 bedtime. Medical Branch gabapentin 2023-0 Yes [id number] 300mg Take 1 Univers 300 mg 5-26 capsule by ity of capsule 00:00: mouth at [place] [address] bedtime. Medical Branch gabapentin 2023-0 Yes [id number] 300mg Take 1 Univers 300 mg 5-26 capsule by ity of capsule 00:00: mouth at [place] [address] bedtime. Medical Branch gabapentin 2023-0 Yes [id number] 300mg Take 1 Univers 300 mg 5-26 capsule by ity of capsule 00:00: mouth at [place] [address] bedtime. Medical Branch gabapentin 2023-0 Yes [id number] 300mg Take 1 Univers 300 mg 5-26 capsule by ity of capsule 00:00: mouth at [place] [address] bedtime. Medical Branch gabapentin 2023-0 Yes [id number] 300mg Take 1 Univers 300 mg 5-26 capsule by ity of capsule 00:00: mouth at [place] [address] bedtime. Medical Branch gabapentin 2023-0 Yes [id number] 300mg Take 1 Univers 300 mg 5-26 capsule by ity of capsule 00:00: mouth at [place] [address] bedtime. Medical Branch gabapentin 2023-0 Yes [id number] 300mg Take 1 Univers 300 mg 5-26 capsule by ity of capsule 00:00: mouth at [place] [address] bedtime. Medical Branch gabapentin 2023-0 Yes [id number] 300mg Take 1 Univers 300 mg 5-26 capsule by ity of capsule 00:00: mouth at [place] [address] bedtime. Medical Branch gabapentin 2023-0 Yes [id number] 300mg Take 1 Univers 300 mg 5-26 capsule by ity of capsule 00:00: mouth at [place] [address] bedtime. Medical Branch gabapentin 2023-0 Yes [id number] 300mg Take 1 Univers 300 mg 5-26 capsule by ity of capsule 00:00: mouth at [place] [address] bedtime. Medical Branch gabapentin 2023-0 Yes [id number] 300mg Take 1 Univers 300 mg 5-26 capsule by ity of capsule 00:00: mouth at [place] [address] bedtime. Medical Branch gabapentin 2023-0 Yes [id number] 300mg Take 1 Univers 300 mg 5-26 capsule by ity of capsule 00:00: mouth at [place] [address] bedtime. Medical Branch gabapentin 2023-0 Yes [id number] 300mg Take 1 Univers 300 mg 5-26 capsule by ity of capsule 00:00: mouth at [place] [address] bedtime. Medical Branch gabapentin 3-0 Yes [id number] 300mg Take 1 Univers 300 mg 5-26 capsule by ity of capsule 00:00: mouth at [place] [address] bedtime. Medical Branch gabapentin 3-0 Yes [id number] 300mg Take 1 Univers 300 mg 5-26 capsule by ity of capsule 00:00: mouth at [place] [address] bedtime. Medical Branch gabapentin 3-0 Yes [id number] 300mg Take 1 Univers 300 mg 5-26 capsule by ity of capsule 00:00: mouth at [place] [address] bedtime. Medical Branch gabapentin 3-0 Yes [id number] 300mg Take 1 Univers 300 mg 5-26 capsule by ity of capsule 00:00: mouth at [place] [address] bedtime. Medical Branch gabapentin 3-0 Yes [id number] 300mg Take 1 Univers 300 mg 5-26 capsule by ity of capsule 00:00: mouth at [place] [address] bedtime. Medical Branch HYDROcodone 2022-2022- Yes [id number] 1{tbl} Take 1 U nivers -acetaminop 5-26 06-03 tablet by it y of hen ([employer]) 00:00: 04:59 [place] 7.5-325 mg 00 :00 every 8 Medica l per tablet (eight) Branch hours as needed for Pain for up to 7 days. Indication s: acute pain HYDROcodone 2022- Yes 4647 1{tbl} Take 1 U nivers -acetaminop 5-26 06-03 tablet by it y of hen ([employer]) 00:00: 04:59 [place] 7.5-325 mg 00 :00 every 8 Medica l per tablet (eight) Branch hours as needed for Pain for up to 7 days. Indication s: acute pain HYDROcodone 2022- Yes 4647 1{tbl} Take 1 U nivers -acetaminop 5-26 06-03 tablet by it y of hen ([employer]) 00:00: 04:59 [place] 7.5-325 mg 00 :00 every 8 Medica l per tablet (eight) Branch hours as needed for Pain for up to 7 days. Indication s: acute pain HYDROcodone 2022- Yes 4647 1{tbl} Take 1 U nivers -acetaminop 5-26 06-03 tablet by it y of hen ([employer]) 00:00: 04:59 [place] 7.5-325 mg 00 :00 every 8 Medica l per tablet (eight) Branch hours as needed for Pain for up to 7 days. Indication s: acute pain HYDROcodone 2022- Yes 4647 1{tbl} Take 1 U nivers -acetaminop 5-26 06-03 tablet by it y of hen ([employer]) 00:00: 04:59 [place] 7.5-325 mg 00 :00 every 8 Medica l per tablet (eight) Branch hours as needed for Pain for up to 7 days. Indication s: acute pain HYDROcodone 2022- Yes 4647 1{tbl} Take 1 U nivers -acetaminop 5-26 06-03 tablet by it y of hen ([employer]) 00:00: 04:59 [place] 7.5-325 mg 00 :00 every 8 Medica l per tablet (eight) Branch hours as needed for Pain for up to 7 days. Indication s: acute pain HYDROcodone 2022- Yes 4647 1{tbl} Take 1 U nivers -acetaminop 5-26 06-03 tablet by it y of hen ([employer]) 00:00: 04:59 [place] 7.5-325 mg 00 :00 every 8 Medica l per tablet (eight) Branch hours as needed for Pain for up to 7 days. Indication s: acute pain HYDROcodone 2022- No 4647 1{tbl} Take 1 U nivers -acetaminop 5-26 06-01 tablet by it y of hen ([employer]) 00:00: 00:00 [place] 7.5-325 mg 00 :00 every 8 Medica l per tablet (eight) Branch hours as needed for Pain for up to 7 days. Indication s: acute pain diclofenac 2022-0 Yes Univers 75 mg EC 5-25 ity of tablet 00:00: 00 Medical Branch diclofenac 3-0 Yes Univers 75 mg EC 5-25 ity of tablet 00:00: Medical Branch diclofenac 2022-0 Yes Univers 75 mg EC 5-25 ity of tablet 00:00: Medical Branch diclofenac 2022-0 Yes Univers 75 mg EC 5-25 ity of tablet 00:00: [place] 00 Medical Branch diclofenac 2023-0 Yes Univers 75 mg EC 5-25 ity of tablet 00:00: [place] 00 Medical Branch diclofenac 2023-0 Yes Univers 75 mg EC 5-25 ity of tablet 00:00: [place] 00 Medical Branch diclofenac 2023-0 Yes Univers 75 mg EC 5-25 ity of tablet 00:00: [place] 00 Medical Branch diclofenac 2023-0 Yes Univers 75 mg EC 5-25 ity of tablet 00:00: [place] 00 Medical Branch diclofenac 2023-0 Yes Univers 75 mg EC 5-25 ity of tablet 00:00: [place] 00 Medical Branch diclofenac 2023-0 Yes Univers 75 mg EC 5-25 ity of tablet 00:00: [place] 00 Medical Branch diclofenac 3-0 Yes Univers 75 mg EC 5-25 ity of tablet 00:00: [place] 00 Medical Branch diclofenac 3-0 Yes Univers 75 mg EC 5-25 ity of tablet 00:00: [place] [address] Medical Branch diclofenac 2023-0 Yes Univers 75 mg EC 5-25 ity of tablet 00:00: [place] [address] Medical Branch diclofenac 2023-0 Yes Univers 75 mg EC 5-25 ity of tablet 00:00: [place] [address] Medical Branch diclofenac 3-0 Yes Univers 75 mg EC 5-25 ity of tablet 00:00: [place] 00 Medical Branch diclofenac 3-0 Yes Univers 75 mg EC 5-25 ity of tablet 00:00: [place] 00 Medical Branch diclofenac 3-0 Yes Univers 75 mg EC 5-25 ity of tablet 00:00: [place] 00 Medical Branch diclofenac 2023-0 Yes Univers 75 mg EC 5-25 ity of tablet 00:00: [place] 00 Medical Branch diclofenac 2023-0 Yes Univers 75 mg EC 5-25 ity of tablet 00:00: [place] [address] Medical Branch diclofenac 2023-0 Yes Univers 75 mg EC 5-25 ity of tablet 00:00: [place] 00 Medical Branch diclofenac 2023-0 Yes Univers 75 mg EC 5-25 ity of tablet 00:00: [place] 00 Medical Branch diclofenac 2023-0 Yes Univers 75 mg EC 5-25 ity of tablet 00:00: [place] 00 Medical Branch diclofenac 2023-0 Yes Univers 75 mg EC 5-25 ity of tablet 00:00: [place] 00 Medical Branch predniSONE 2023-0 Yes TAKE [...] HOURS Branch NEEDED FOR PAIN acetaminoph 2023-0 3- No TAKE 1 Uni vers en-codeine 5-23 05-26 TABLET BY ity of 300-15 mg 00:00: 00:00 MOUTH [place] tablet 00 :00 EVERY 4 TO Medical 6 HOURS Branch NEEDED FOR PAIN acetaminoph 2023-0 3- No TAKE 1 Uni vers en-codeine 5-23 [...] Medical 6 HOURS Branch NEEDED FOR PAIN SYNTHROID 2023-0 Yes [id number] TAKE 1 U nivers 150 mcg 5-21 TABLET BY ity of tablet 00:00: MOUTH [place] 00 EVERY DAY Medical IN THE Branch MORNING SYNTHROID 2023-0 Yes [id number] TAKE 1 U nivers 150 mcg 5-21 TABLET BY ity of tablet 00:00: MOUTH [place] 00 EVERY DAY Medical IN THE [place] MORNING SYNTHROID 0 Yes [id number] TAKE 1 U nivers 150 mcg 5-21 TABLET BY ity of tablet 00:00: MOUTH [place] 00 EVERY DAY Medical IN THE [place] MORNING SYNTHROID 0 Yes [id number] TAKE 1 U nivers 150 mcg 5-21 TABLET BY ity of tablet 00:00: MOUTH [place] 00 EVERY DAY Medical IN THE [place] MORNING SYNTHROID 0 Yes [id number] TAKE 1 U nivers 150 mcg 5-21 TABLET BY ity of tablet 00:00: MOUTH [place] 00 EVERY DAY Medical IN THE [facility] SYNTHROID 0 Yes [id number] TAKE 1 U nivers 150 mcg 5-21 TABLET BY ity of tablet 00:00: MOUTH [place] 00 EVERY DAY Medical IN THE [facility] SYNTHROID 0 Yes [id number] TAKE 1 U nivers 150 mcg 5-21 TABLET BY ity of tablet 00:00: MOUTH [place] 00 EVERY DAY Medical IN THE [facility] SYNTHROID 0 Yes [id number] TAKE 1 U nivers 150 mcg 5-21 TABLET BY ity of tablet 00:00: MOUTH [place] 00 EVERY DAY Medical IN THE [facility] SYNTHROID 0 Yes [id number] TAKE 1 U nivers 150 mcg 5-21 TABLET BY ity of tablet 00:00: MOUTH [place] 00 EVERY DAY Medical IN THE [facility] SYNTHROID 0 Yes [id number] TAKE 1 U nivers 150 mcg 5-21 TABLET BY ity of tablet 00:00: MOUTH [place] 00 EVERY DAY Medical IN THE [facility] SYNTHROID 0 Yes [id number] TAKE 1 U nivers 150 mcg 5-21 TABLET BY ity of tablet 00:00: MOUTH [place] 00 EVERY DAY Medical IN THE [facility] SYNTHROID 0 Yes [id number] TAKE 1 U nivers 150 mcg 5-21 TABLET BY ity of tablet 00:00: MOUTH [place] 00 EVERY DAY Medical IN THE [facility] SYNTHROID 2022-0 Yes [id number] TAKE 1 U nivers 150 mcg 5-21 TABLET BY ity of tablet 00:00: MOUTH [place] 00 EVERY DAY Medical IN THE [facility] SYNTHROID 2022-0 Yes [id number] TAKE 1 U nivers 150 mcg 5-21 TABLET BY ity of tablet 00:00: MOUTH [place] 00 EVERY DAY Medical IN THE [facility] SYNTHROID 0 Yes [id number] TAKE 1 U nivers 150 mcg 5-21 TABLET BY ity of tablet 00:00: MOUTH [place] 00 EVERY DAY Medical IN THE [facility] SYNTHROID 0 Yes [id number] TAKE 1 U nivers 150 mcg 5-21 TABLET BY ity of tablet 00:00: MOUTH [place] 00 EVERY DAY Medical IN THE [facility] SYNTHROID 0 Yes [id number] TAKE 1 U nivers 150 mcg 5-21 TABLET BY ity of tablet 00:00: MOUTH [place] 00 EVERY DAY Medical IN THE [facility] SYNTHROID 0 Yes [id number] TAKE 1 U nivers 150 mcg 5-21 TABLET BY ity of tablet 00:00: MOUTH [place] 00 EVERY DAY Medical IN THE [facility] SYNTHROID 0 Yes [id number] TAKE 1 U nivers 150 mcg 5-21 TABLET BY ity of tablet 00:00: MOUTH [place] 00 EVERY DAY Medical IN THE [facility] SYNTHROID 0 Yes [id number] TAKE 1 U nivers 150 mcg 5-21 TABLET BY ity of tablet 00:00: MOUTH [place] 00 EVERY DAY Medical IN THE [facility] SYNTHROID 0 Yes [id number] TAKE 1 U nivers 150 mcg 5-21 TABLET BY ity of tablet 00:00: MOUTH [place] 00 EVERY DAY Medical IN THE [facility] SYNTHROID 0 Yes [id number] TAKE 1 U nivers 150 mcg 5-21 TABLET BY ity of tablet 00:00: MOUTH [place] 00 EVERY DAY Medical IN THE [facility] SYNTHROID 0 Yes [id number] TAKE 1 U nivers 150 mcg 5-21 TABLET BY ity of tablet 00:00: MOUTH [place] 00 EVERY DAY Medical IN THE [facility] SYNTHROID 0 Yes [id number] TAKE 1 U nivers 150 mcg 5-21 TABLET BY ity of tablet 00:00: MOUTH [place] 00 EVERY DAY Medical IN THE [facility] SYNTHROID 2022-0 Yes [id number] TAKE 1 U nivers 150 mcg 5-21 TABLET BY ity of tablet 00:00: MOUTH [place] 00 EVERY DAY Medical IN THE [facility] SYNTHROID 2022-0 Yes [id number] TAKE 1 U nivers 150 mcg 5-21 TABLET BY ity of tablet 00:00: MOUTH [place] 00 EVERY DAY Medical IN THE Branch MORNING orphenadrin 2023-0 3- No TAKE 1 Uni vers e 100 mg SR 5-14 05-26 TABLET BY it y of tablet 00:00: 00:00 MOUTH [place] 00 :00 TWICE A Medical DAY Branch NEEDED orphenadrin 2023-0 3- No TAKE 1 Uni vers e 100 mg SR 5-14 05-26 TABLET BY it y of tablet 00:00: 00:00 MOUTH [place] 00 :00 TWICE A Medical DAY Branch NEEDED orphenadrin 2023-0 3- No TAKE 1 Uni vers e 100 mg SR 5-14 05-26 TABLET BY it y of tablet 00:00: 00:00 MOUTH [place] 00 :00 TWICE A Medical DAY Branch NEEDED orphenadrin 2023-0 3- No TAKE 1 Uni vers e 100 mg SR 5-14 05-26 TABLET BY it y of tablet 00:00: 00:00 MOUTH [place] 00 :00 TWICE A Medical DAY Branch NEEDED dextroamphe 2023-0 Yes [id number] 20mg Take 1 [facility] tamine-amph 5-09 tablet by ity of etamine 00:00: mouth in [place] ([facility]) 00 the Medical 20 mg morning Branch tablet and 1 tablet at noon and 1 tablet in the evening. dextroamphe 2023-0 Yes [id number] 20mg Take 1 [facility] tamine-amph 5-09 tablet by ity of etamine 00:00: mouth in [place] ([facility]) 00 the Medical 20 mg morning Branch tablet and 1 tablet at noon and 1 tablet in the evening. dextroamphe 2023-0 Yes [id number] 20mg Take 1 [facility] tamine-amph 5-09 tablet by ity of etamine 00:00: mouth in [place] ([facility]) 00 the Medical 20 mg morning Branch tablet and 1 tablet at noon and 1 tablet in the evening. dextroamphe 2023-0 Yes [id number] 20mg Take 1 [facility] tamine-amph 5-09 tablet by ity of etamine 00:00: mouth in [place] ([facility]) 00 the Medical 20 mg morning Branch tablet and 1 tablet at noon and 1 tablet in the evening. dextroamphe 2023-0 Yes [id number] 20mg Take 1 [facility] tamine-amph 5-09 tablet by ity of etamine 00:00: mouth in [place] ([facility]) 00 the Medical 20 mg morning Branch tablet and 1 tablet at noon and 1 tablet in the evening. dextroamphe 2023-0 Yes [id number] 20mg Take 1 [facility] tamine-amph 5-09 tablet by ity of etamine 00:00: mouth in [place] ([facility]) 00 the Medical 20 mg morning Branch tablet and 1 tablet at noon and 1 tablet in the evening. dextroamphe 2023-0 Yes [id number] 20mg Take 1 [facility] tamine-amph 5-09 tablet by ity of etamine 00:00: mouth in [place] ([facility]) 00 the Medical 20 mg morning Branch tablet and 1 tablet at noon and 1 tablet in the evening. dextroamphe 2023-0 Yes [id number] 20mg Take 1 [facility] tamine-amph 5-09 tablet by ity of etamine 00:00: mouth in [place] ([facility]) 00 the Medical 20 mg morning Branch tablet and 1 tablet at noon and 1 tablet in the evening. dextroamphe 2023-0 Yes [id number] 20mg Take 1 [facility] tamine-amph 5-09 tablet by ity of etamine 00:00: mouth in [place] ([facility]) 00 the Medical 20 mg morning Branch tablet and 1 tablet at noon and 1 tablet in the evening. dextroamphe 2023-0 Yes [id number] 20mg Take 1 [facility] tamine-amph 5-09 tablet by ity of etamine 00:00: mouth in [place] ([facility]) 00 the Medical 20 mg morning Branch tablet and 1 tablet at noon and 1 tablet in the evening. dextroamphe 2023-0 Yes [id number] 20mg Take 1 [facility] tamine-amph 5-09 tablet by ity of etamine 00:00: mouth in [place] ([facility]) 00 the Medical 20 mg morning Branch tablet and 1 tablet at noon and 1 tablet in the evening. dextroamphe 2023-0 Yes [id number] 20mg Take 1 [facility] tamine-amph 5-09 tablet by ity of etamine 00:00: mouth in [place] ([facility]) 00 the Medical 20 mg morning Branch tablet and 1 tablet at noon and 1 tablet in the evening. dextroamphe 2023-0 Yes [id number] 20mg Take 1 [facility] tamine-amph 5-09 tablet by ity of etamine 00:00: mouth in [place] ([facility]) 00 the Medical 20 mg morning Branch tablet and 1 tablet at noon and 1 tablet in the evening. dextroamphe 2023-0 Yes [id number] 20mg Take 1 [facility] tamine-amph 5-09 tablet by ity of etamine 00:00: mouth in [place] ([facility]) 00 the Medical 20 mg morning Branch tablet and 1 tablet at noon and 1 tablet in the evening. dextroamphe 2023-0 Yes [id number] 20mg Take 1 [facility] tamine-amph 5-09 tablet by ity of etamine 00:00: mouth in [place] ([facility]) 00 the Medical 20 mg morning Branch tablet and 1 tablet at noon and 1 tablet in the evening. dextroamphe 2023-0 Yes [id number] 20mg Take 1 [facility] tamine-amph 5-09 tablet by ity of etamine 00:00: mouth in [place] ([facility]) 00 the Medical 20 mg morning Branch tablet and 1 tablet at noon and 1 tablet in the evening. dextroamphe 2023-0 Yes [id number] 20mg Take 1 [facility] tamine-amph 5-09 tablet by ity of etamine 00:00: mouth in [place] ([facility]) 00 the Medical 20 mg morning Branch tablet and 1 tablet at noon and 1 tablet in the evening. dextroamphe 2023-0 Yes [id number] 20mg Take 1 [facility] tamine-amph 5-09 tablet by ity of etamine 00:00: mouth in [place] ([facility]) 00 the Medical 20 mg morning Branch tablet and 1 tablet at noon and 1 tablet in the evening. dextroamphe 2023-0 Yes [id number] 20mg Take 1 [facility] tamine-amph 5-09 tablet by ity of etamine 00:00: mouth in [place] ([facility]) 00 the Medical 20 mg morning Branch tablet and 1 tablet at noon and 1 tablet in the evening. dextroamphe 2023-0 Yes [id number] 20mg Take 1 [facility] tamine-amph 5-09 tablet by ity of etamine 00:00: mouth in [place] ([facility]DERALL) 00 the Medical 20 mg morning Branch tablet and 1 tablet at noon and 1 tablet in the evening. dextroamphe 2023-0 2023- No [id number] 20mg Take 1 [facility] tamine-amph 5-09 -07 tablet by it y of etamine 00:00: 00:00 mouth in [place] ([facility]DERALL) 00 :00 the Medical 20 mg morning Branch tablet and 1 tablet at noon and 1 tablet in the evening. SERTRALINE 2022-0 Yes [id number] TAKE 1 [facility] 100 mg 5-01 TABLET BY ity of tablet 00:00: MOUTH [place] 00 EVERY DAY Medical Branch SERTRALINE 3-0 Yes [id number] TAKE 1 [facility] 100 mg 5-01 TABLET BY ity of tablet 00:00: MOUTH [place] 00 EVERY DAY Medical Branch SERTRALINE 3-0 Yes [id number] TAKE 1 [facility] 100 mg 5-01 TABLET BY ity of tablet 00:00: MOUTH [place] 00 EVERY DAY Medical Branch SERTRALINE 3-0 Yes [id number] TAKE 1 [facility] 100 mg 5-01 TABLET BY ity of tablet 00:00: MOUTH [place] 00 EVERY DAY Medical Branch SERTRALINE 3-0 Yes [id number] TAKE 1 [facility] 100 mg 5-01 TABLET BY ity of tablet 00:00: MOUTH 00 EVERY DAY Medical Branch SERTRALINE 3-0 Yes [id number] TAKE 1 [facility] 100 mg 5-01 TABLET BY ity of tablet 00:00: MOUTH [place] 00 EVERY DAY Medical Branch SERTRALINE 3-0 Yes [id number] TAKE 1 [facility] 100 mg 5-01 TABLET BY ity of tablet 00:00: MOUTH [place] 00 EVERY DAY Medical Branch SERTRALINE 3-0 Yes [id number] TAKE 1 [facility] 100 mg 5-01 TABLET BY ity of tablet 00:00: MOUTH [place] 00 EVERY DAY Medical Branch SERTRALINE 3-0 Yes [id number] TAKE 1 [facility] 100 mg 5-01 TABLET BY ity of tablet 00:00: MOUTH [place] 00 EVERY DAY Medical Branch SERTRALINE 3-0 Yes [id number] TAKE 1 [facility] 100 mg 5-01 TABLET BY ity of tablet 00:00: MOUTH [place] 00 EVERY DAY Medical Branch SERTRALINE 3-0 Yes [id number] TAKE 1 [facility] 100 mg 5-01 TABLET BY ity of tablet 00:00: MOUTH [place] 00 EVERY DAY Medical Branch SERTRALINE 3-0 Yes [id number] TAKE 1 [facility] 100 mg 5-01 TABLET BY ity of tablet 00:00: MOUTH [place] 00 EVERY DAY Medical Branch SERTRALINE 2023-0 Yes [id number] TAKE 1 [facility] 100 mg 5-01 TABLET BY ity of tablet 00:00: MOUTH [place] 00 EVERY DAY Medical Branch SERTRALINE 2023-0 Yes [id number] TAKE 1 [facility] 100 mg 5-01 TABLET BY ity of tablet 00:00: MOUTH [place] 00 EVERY DAY Medical Branch SERTRALINE 2023-0 Yes [id number] TAKE 1 [facility] 100 mg 5-01 TABLET BY ity of tablet 00:00: MOUTH [place] 00 EVERY DAY Medical Branch SERTRALINE 2023-0 Yes [id number] TAKE 1 [facility] 100 mg 5-01 TABLET BY ity of tablet 00:00: MOUTH 00 EVERY DAY Medical Branch SERTRALINE 3-0 Yes [id number] TAKE 1 [facility] 100 mg 5-01 TABLET BY ity of tablet 00:00: MOUTH 00 EVERY DAY Medical Branch SERTRALINE 3-0 Yes [id number] TAKE 1 [facility] 100 mg 5-01 TABLET BY ity of tablet 00:00: MOUTH 00 EVERY DAY Medical Branch SERTRALINE 3-0 Yes [id number] TAKE 1 [facility] 100 mg 5-01 TABLET BY ity of tablet 00:00: MOUTH 00 EVERY DAY Medical Branch SERTRALINE 3-0 Yes [id number] TAKE 1 [facility] 100 mg 5-01 TABLET BY ity of tablet 00:00: MOUTH 00 EVERY DAY Medical Branch SERTRALINE 3-0 Yes [id number] TAKE 1 [facility] 100 mg 5-01 TABLET BY ity of tablet 00:00: MOUTH 00 EVERY DAY Medical Branch SERTRALINE 2023-0 Yes [id number] TAKE 1 [facility] 100 mg 5-01 TABLET BY ity of tablet 00:00: MOUTH [place] 00 EVERY DAY Medical Branch SERTRALINE 2023-0 Yes [id number] TAKE 1 [facility] 100 mg 5-01 TABLET BY ity of tablet 00:00: MOUTH 00 EVERY DAY Medical Branch SERTRALINE 2023-0 Yes [id number] TAKE 1 [facility] 100 mg 5-01 TABLET BY ity of tablet 00:00: MOUTH [place] 00 EVERY DAY Medical Branch SERTRALINE 2023-0 Yes [id number] TAKE 1 [facility] 100 mg 5-01 TABLET BY ity of tablet 00:00: MOUTH 00 EVERY DAY Medical Branch SERTRALINE 2023-0 Yes [id number] TAKE 1 [facility] 100 mg 5-01 TABLET BY ity of tablet 00:00: MOUTH [place] 00 EVERY DAY Medical Branch SERTRALINE 2023-0 Yes [id number] TAKE 1 [facility] 100 mg 5-01 TABLET BY ity of tablet 00:00: MOUTH [place] 00 EVERY DAY Medical Branch SERTRALINE 2023-0 Yes [id number] TAKE 1 [facility] 100 mg 5-01 TABLET BY ity of tablet 00:00: MOUTH 00 EVERY DAY Medical Branch SERTRALINE 2023-0 Yes [id number] TAKE 1 [facility] 100 mg 5-01 TABLET BY ity of tablet 00:00: MOUTH [place] 00 EVERY DAY Medical Branch SERTRALINE 2023-0 Yes [id number] TAKE 1 [facility] 100 mg 5-01 TABLET BY ity of tablet 00:00: MOUTH [place] 00 EVERY DAY Medical Branch SERTRALINE 2023-0 Yes [id number] TAKE 1 [facility] 100 mg 5-01 TABLET BY ity of tablet 00:00: MOUTH 00 EVERY DAY Medical Branch SERTRALINE 3-0 Yes [id number] TAKE 1 [facility] 100 mg 5-01 TABLET BY ity of tablet 00:00: MOUTH 00 EVERY DAY Medical Branch SERTRALINE 3-0 Yes [id number] TAKE 1 [facility] 100 mg 5-01 TABLET BY ity of tablet 00:00: MOUTH [place] 00 EVERY DAY Medical Branch SERTRALINE 2023-0 Yes [id number] TAKE 1 [facility] 100 mg 5-01 TABLET BY ity of tablet 00:00: MOUTH [place] 00 EVERY DAY Medical Branch SERTRALINE 2023-0 Yes [id number] TAKE 1 [facility] 100 mg 5-01 TABLET BY ity of tablet 00:00: MOUTH [place] 00 EVERY DAY Medical Branch SERTRALINE 2023-0 Yes [id number] TAKE 1 [facility] 100 mg 5-01 TABLET BY ity of tablet 00:00: MOUTH [place] 00 EVERY DAY Medical Branch clonazePAM 2023-0 Yes 1mg Take 1 Unive rs 1 mg tablet 4-23 tablet by ity of 00:00: mouth in [place] the Medical morning Branch and 1 tablet at noon and 1 tablet in the evening. clonazePAM 2023-0 Yes 1mg Take 1 Unive rs 1 mg tablet 4-23 tablet by ity of 00:00: mouth in [place] the Medical morning Branch and 1 tablet at noon and 1 tablet in the evening. clonazePAM 2023-0 Yes 1mg Take 1 Unive rs 1 mg tablet 4-23 tablet by ity of 00:00: mouth in [place] [address] the Medical morning Branch and 1 tablet at noon and 1 tablet in the evening. clonazePAM 2023-0 Yes 1mg Take 1 Unive rs 1 mg tablet 4-23 tablet by ity of 00:00: mouth in [place] [address] the Medical morning Branch and 1 tablet at noon and 1 tablet in the evening. clonazePAM 2023-0 Yes 1mg Take 1 Unive rs 1 mg tablet 4-23 tablet by ity of 00:00: mouth in [place] [address] the Medical morning Branch and 1 tablet at noon and 1 tablet in the evening. clonazePAM 2023-0 Yes 1mg Take 1 Unive rs 1 mg tablet 4-23 tablet by ity of 00:00: mouth in [place] [address] the Medical morning [place] and 1 tablet at noon and 1 tablet in the evening. clonazePAM 2023-0 Yes 1mg Take 1 Unive rs 1 mg tablet 4-23 tablet by ity of 00:00: mouth in [address] Medical morning [place] and 1 tablet at noon and 1 tablet in the evening. clonazePAM 2023-0 Yes 1mg Take 1 Unive rs 1 mg tablet 4-23 tablet by ity of 00:00: mouth in [place] [address] the Medical morning [place] and 1 tablet at noon and 1 tablet in the evening. clonazePAM 2023-0 Yes 1mg Take 1 Unive rs 1 mg tablet 4-23 tablet by ity of 00:00: mouth in [address] Medical morning [place] and 1 tablet at noon and 1 tablet in the evening. clonazePAM 2023-0 Yes 1mg Take 1 Unive rs 1 mg tablet 4-23 tablet by ity of 00:00: mouth in [place] [address] the Medical morning Branch and 1 tablet at noon and 1 tablet in the evening. clonazePAM 2023-0 Yes 1mg Take 1 Unive rs 1 mg tablet 4-23 tablet by ity of 00:00: mouth in [address] Medical morning [place] and 1 tablet at noon and 1 tablet in the evening. clonazePAM 2023-0 Yes 1mg Take 1 Unive rs 1 mg tablet 4-23 tablet by ity of 00:00: mouth in [address] Medical morning [place] and 1 tablet at noon and 1 tablet in the evening. clonazePAM 2023-0 Yes 1mg Take 1 Unive rs 1 mg tablet 4-23 tablet by ity of 00:00: mouth in [place] [address] the Medical morning Branch and 1 tablet at noon and 1 tablet in the evening. clonazePAM 2023-0 Yes 1mg Take 1 Unive rs 1 mg tablet 4-23 tablet by ity of 00:00: mouth in [place] [address] the Medical morning Branch and 1 tablet at noon and 1 tablet in the evening. clonazePAM 2023-0 Yes 1mg Take 1 Unive rs 1 mg tablet 4-23 tablet by ity of 00:00: mouth in [place] [address] the Medical morning Branch and 1 tablet at noon and 1 tablet in the evening. clonazePAM 2023-0 Yes 1mg Take 1 Un[facility] rs 1 mg tablet 4-23 tablet by ity of 00:00: mouth in [place] [address] the Medical morning [place] and 1 tablet at noon and 1 tablet in the evening. clonazePAM 2023-0 Yes 1mg Take 1 Un[facility] rs 1 mg tablet 4-23 tablet by ity of 00:00: mouth in [address] Medical morning [place] and 1 tablet at noon and 1 tablet in the evening. clonazePAM 2023-0 Yes 1mg Take 1 Un[facility] rs 1 mg tablet 4-23 tablet by ity of 00:00: mouth in [place] [address] the Medical morning [place] and 1 tablet at noon and 1 tablet in the evening. clonazePAM 2023-0 Yes 1mg Take 1 Un[facility] rs 1 mg tablet 4-23 tablet by ity of 00:00: mouth in [address] Medical morning [place] and 1 tablet at noon and 1 tablet in the evening. clonazePAM 2023-0 Yes 1mg Take 1 Un[facility] rs 1 mg tablet 4-23 tablet by ity of 00:00: mouth in [place] [address] the Medical morning Branch and 1 tablet at noon and 1 tablet in the evening. clonazePAM 2023-0 Yes 1mg Take 1 [facility] rs 1 mg tablet 4-23 tablet by ity of 00:00: mouth in [address] Medical morning [place] and 1 tablet at noon and 1 tablet in the evening. clonazePAM 2023-0 Yes 1mg Take 1 Un[facility] rs 1 mg tablet 4-23 tablet by ity of 00:00: mouth in [address] Medical morning [place] and 1 tablet at noon and 1 tablet in the evening. clonazePAM 2023-0 Yes 1mg Take 1 Un[facility] rs 1 mg tablet 4-23 tablet by ity of 00:00: mouth in [place] [address] the Medical morning Branch and 1 tablet at noon and 1 tablet in the evening. clonazePAM 2023-0 Yes 1mg Take 1 Un[facility] rs 1 mg tablet 4-23 tablet by ity of 00:00: mouth in [place] [address] the Medical morning Branch and 1 tablet at noon and 1 tablet in the evening. clonazePAM 2023-0 Yes 1mg Take 1 [facility] rs 1 mg tablet 4-23 tablet by ity of 00:00: mouth in [place] [address] the Medical morning Branch and 1 tablet at noon and 1 tablet in the evening. clonazePAM 2023-0 Yes 1mg Take 1 [facility] rs 1 mg tablet 4-23 tablet by ity of 00:00: mouth in [place] [address] the Medical morning Branch and 1 tablet at noon and 1 tablet in the evening. clonazePAM 2023-0 Yes 1mg Take 1 [facility] rs 1 mg tablet 4-23 tablet by ity of 00:00: mouth in [place] [address] the Medical morning Branch and 1 tablet at noon and 1 tablet in the evening. clonazePAM 2023-0 Yes 1mg Take 1 [facility] rs 1 mg tablet 4-23 tablet by ity of 00:00: mouth in [place] [address] the Medical morning Branch and 1 tablet at noon and 1 tablet in the evening. clonazePAM 2023-0 Yes 1mg Take 1 [facility] rs 1 mg tablet 4-23 tablet by ity of 00:00: mouth in [place] [address] the Medical morning [place] and 1 tablet at noon and 1 tablet in the evening. clonazePAM 2023-0 Yes 1mg Take 1 [facility] rs 1 mg tablet 4-23 tablet by ity of 00:00: mouth in [place] [address] the Medical morning Branch and 1 tablet at noon and 1 tablet in the evening. clonazePAM 2023-0 Yes 1mg Take 1 [facility] rs 1 mg tablet 4-23 tablet by ity of 00:00: mouth in [place] [address] the Medical morning Branch and 1 tablet at noon and 1 tablet in the evening. clonazePAM 2023-0 2023- No 1mg Take 1 [facility] ers 1 mg tablet 4-23 06-28 tablet by it y of 00:00: 00:00 mouth in [place] 00 :00 the Medical morning Branch and 1 tablet at noon and 1 tablet in the evening. dextroamphe 2023-0 Yes [id number] 20mg Take 1 [facility] tamine-amph 3-30 tablet by ity of etamine 00:00: mouth in [place] [facility] the Medical 20 mg morning Branch tablet and 1 tablet at noon and 1 tablet in the evening. dextroamphe 2023-0 Yes [id number] 20mg Take 1 [facility] tamine-amph 3-30 tablet by ity of etamine 00:00: mouth in [place] [facility] the Medical 20 mg morning Branch tablet and 1 tablet at noon and 1 tablet in the evening. dextroamphe 2023-0 Yes [id number] 20mg Take 1 [facility] tamine-amph 3-30 tablet by ity of etamine 00:00: mouth in [place] ([facility]) 00 the Medical 20 mg morning Branch tablet and 1 tablet at noon and 1 tablet in the evening. dextroamphe 2023-0 Yes [id number] 20mg Take 1 [facility] tamine-amph 3-30 tablet by ity of etamine 00:00: mouth in [place] ([facility]) 00 the Medical 20 mg morning Branch tablet and 1 tablet at noon and 1 tablet in the evening. dextroamphe 2023-0 Yes [id number] 20mg Take 1 [facility] tamine-amph 3-30 tablet by ity of etamine 00:00: mouth in [place] ([facility]) 00 the Medical 20 mg morning Branch tablet and 1 tablet at noon and 1 tablet in the evening. dextroamphe 2023-0 Yes [id number] 20mg Take 1 [facility] tamine-amph 3-30 tablet by ity of etamine 00:00: mouth in [place] ([facility]) 00 the Medical 20 mg morning Branch tablet and 1 tablet at noon and 1 tablet in the evening. dextroamphe 2023-0 Yes [id number] 20mg Take 1 [facility] tamine-amph 3-30 tablet by ity of etamine 00:00: mouth in [place] [facility] the Medical 20 mg morning Branch tablet and 1 tablet at noon and 1 tablet in the evening. dextroamphe 2023-0 Yes [id number] 20mg Take 1 [facility] tamine-amph 3-30 tablet by ity of etamine 00:00: mouth in [place] ([facility]) 00 the Medical 20 mg morning Branch tablet and 1 tablet at noon and 1 tablet in the evening. dextroamphe 2023-0 Yes [id number] 20mg Take 1 [facility] tamine-amph 3-30 tablet by ity of etamine 00:00: mouth in [place] ([facility]) 00 the Medical 20 mg morning Branch tablet and 1 tablet at noon and 1 tablet in the evening. dextroamphe 2023-0 Yes [id number] 20mg Take 1 [facility] tamine-amph 3-30 tablet by ity of etamine 00:00: mouth in [place] ([facility]) 00 the Medical 20 mg morning Branch tablet and 1 tablet at noon and 1 tablet in the evening. dextroamphe 3-0 3- No [id number] 20mg Take 1 [facility] tamine-amph 3-30 05-09 tablet by it y of etamine 00:00: 00:00 mouth in [place] ([facility]) 00 :00 the Medical 20 mg morning Branch tablet and 1 tablet at noon and 1 tablet in the evening. dextroamphe 3-0 3- No [id number] 20mg Take 1 [facility] tamine-amph 3-30 05-09 tablet by it y of etamine 00:00: 00:00 mouth in [place] ([facility]) 00 :00 the Medical 20 mg morning Branch tablet and 1 tablet at noon and 1 tablet in the evening. ZONISAMIDE 2023-0 Yes [id number] TAKE 1 [facility] 100 mg 3-27 CAPSULE BY ity of capsule 00:00: MOUTH [place] 00 TWICE A Medical DAY Branch ZONISAMIDE 2023-0 Yes [id number] TAKE 1 [facility] 100 mg 3-27 CAPSULE BY ity of capsule 00:00: MOUTH [place] 00 TWICE A Medical DAY Branch ZONISAMIDE 2023-0 Yes [id number] TAKE 1 [facility] 100 mg 3-27 CAPSULE BY ity of capsule 00:00: MOUTH [place] 00 TWICE A Medical DAY Branch ZONISAMIDE 2023-0 Yes [id number] TAKE 1 [facility] 100 mg 3-27 CAPSULE BY ity of capsule 00:00: MOUTH [place] 00 TWICE A Medical DAY Branch ZONISAMIDE 2023-0 Yes [id number] TAKE 1 [facility] 100 mg 3-27 CAPSULE BY ity of capsule 00:00: MOUTH [place] 00 TWICE A Medical DAY Branch ZONISAMIDE 2023-0 Yes [id number] TAKE 1 [facility] 100 mg 3-27 CAPSULE BY ity of capsule 00:00: MOUTH [place] 00 TWICE A Medical DAY Branch ZONISAMIDE 3-0 Yes [id number] TAKE 1 [facility] 100 mg 3-27 CAPSULE BY ity of capsule 00:00: MOUTH TWICE A Medical DAY Branch ZONISAMIDE 3-0 Yes [id number] TAKE 1 [facility] 100 mg 3-27 CAPSULE BY ity of capsule 00:00: MOUTH [place] TWICE A Medical DAY Branch ZONISAMIDE 3-0 Yes [id number] TAKE 1 [facility] 100 mg 3-27 CAPSULE BY ity of capsule 00:00: MOUTH TWICE A Medical DAY Branch ZONISAMIDE 2022-0 Yes [id number] TAKE 1 [facility] 100 mg 3-27 CAPSULE BY ity of capsule 00:00: MOUTH TWICE A Medical DAY Branch ZONISAMIDE 2022-0 Yes [id number] TAKE 1 [facility] 100 mg 3-27 CAPSULE BY ity of capsule 00:00: MOUTH TWICE A Medical DAY Branch ZONISAMIDE 2022-0 Yes [id number] TAKE 1 [facility] 100 mg 3-27 CAPSULE BY ity of capsule 00:00: MOUTH TWICE A Medical DAY Branch ZONISAMIDE 2022-0 Yes [id number] TAKE 1 [facility] 100 mg 3-27 CAPSULE BY ity of capsule 00:00: MOUTH TWICE A Medical DAY Branch ZONISAMIDE 2022-0 Yes [id number] TAKE 1 [facility] 100 mg 3-27 CAPSULE BY [facility] of capsule 00:00: MOUTH TWICE A Medical DAY Branch ZONISAMIDE 3-0 Yes [id number] TAKE 1 [facility] 100 mg 3-27 CAPSULE BY [facility] of capsule 00:00: MOUTH 00 TWICE A Medical DAY Branch ZONISAMIDE 3-0 Yes [id number] TAKE 1 [facility] 100 mg 3-27 CAPSULE BY [facility] of capsule 00:00: MOUTH 00 TWICE A Medical DAY Branch ZONISAMIDE 3-0 Yes [id number] TAKE 1 [facility] 100 mg 3-27 CAPSULE BY [facility] of capsule 00:00: MOUTH [place] 00 TWICE A Medical DAY Branch ZONISAMIDE 3-0 Yes [id number] TAKE 1 [facility] 100 mg 3-27 CAPSULE BY [facility] of capsule 00:00: MOUTH [place] 00 TWICE A Medical DAY Branch ZONISAMIDE 2023-0 Yes [id number] TAKE 1 [facility] 100 mg 3-27 CAPSULE BY [facility] of capsule 00:00: MOUTH [place] TWICE A Medical DAY Branch ZONISAMIDE 2023-0 Yes [id number] TAKE 1 [facility] 100 mg 3-27 CAPSULE BY [facility] of capsule 00:00: MOUTH TWICE A Medical DAY Branch ZONISAMIDE 2023-0 Yes [id number] TAKE 1 [facility] 100 mg 3-27 CAPSULE BY [facility] of capsule 00:00: MOUTH [place] TWICE A Medical DAY Branch ZONISAMIDE 2023-0 Yes [id number] TAKE 1 [facility] 100 mg 3-27 CAPSULE BY [facility] of capsule 00:00: MOUTH TWICE A Medical DAY Branch ZONISAMIDE 3-0 Yes [id number] TAKE 1 [facility] 100 mg 3-27 CAPSULE BY [facility] of capsule 00:00: MOUTH TWICE A Medical DAY Branch ZONISAMIDE 3-0 Yes [id number] TAKE 1 [facility] 100 mg 3-27 CAPSULE BY [facility] of capsule 00:00: MOUTH TWICE A Medical DAY Branch ZONISAMIDE 2023-0 Yes [id number] TAKE 1 [facility] 100 mg 3-27 CAPSULE BY [facility] of capsule 00:00: MOUTH TWICE A Medical DAY Branch ZONISAMIDE 3-0 Yes [id number] TAKE 1 [facility] 100 mg 3-27 CAPSULE BY [facility] of capsule 00:00: MOUTH TWICE A Medical DAY Branch ZONISAMIDE 3-0 Yes [id number] TAKE 1 [facility] 100 mg 3-27 CAPSULE BY [facility] of capsule 00:00: MOUTH TWICE A Medical DAY Branch ZONISAMIDE 2023-0 Yes [id number] TAKE 1 [facility] 100 mg 3-27 CAPSULE BY [facility] of capsule 00:00: MOUTH TWICE A Medical DAY Branch ZONISAMIDE 2023-0 Yes [id number] TAKE 1 [facility] 100 mg 3-27 CAPSULE BY [facility] of capsule 00:00: MOUTH TWICE A Medical DAY Branch ZONISAMIDE 2023-0 Yes [id number] TAKE 1 [facility] 100 mg 3-27 CAPSULE BY [facility] of capsule 00:00: MOUTH TWICE A Medical DAY Branch ZONISAMIDE 3-0 Yes [id number] TAKE 1 [facility] 100 mg 3-27 CAPSULE BY [facility] of capsule 00:00: MOUTH [place] 00 TWICE A Medical DAY Branch ZONISAMIDE 2023-0 Yes [id number] TAKE 1 [facility] 100 mg 3-27 CAPSULE BY [facility] of capsule 00:00: MOUTH TWICE A Medical DAY Branch ZONISAMIDE 3-0 Yes [id number] TAKE 1 [facility] 100 mg 3-27 CAPSULE BY [facility] of capsule 00:00: MOUTH TWICE A Medical DAY Branch ZONISAMIDE 3-0 Yes [id number] TAKE 1 [facility] 100 mg 3-27 CAPSULE BY [facility] of capsule 00:00: MOUTH [place] TWICE A Medical DAY Branch ZONISAMIDE 3-0 Yes [id number] TAKE 1 [facility] 100 mg 3-27 CAPSULE BY it[facility] of capsule 00:00: MOUTH TWICE A Medical DAY Branch ZONISAMIDE 2022-0 Yes [id number] TAKE 1 [facility] 100 mg 3-27 CAPSULE BY [facility] of capsule 00:00: MOUTH TWICE A Medical DAY Branch ZONISAMIDE 3-0 Yes [id number] TAKE 1 [facility] 100 mg 3-27 CAPSULE BY [facility] of capsule 00:00: MOUTH TWICE A Medical DAY Branch ZONISAMIDE 3-0 Yes [id number] TAKE 1 [facility] 100 mg 3-27 CAPSULE BY [facility] of capsule 00:00: MOUTH TWICE A Medical DAY Branch ZONISAMIDE 3-0 Yes [id number] TAKE 1 [facility] 100 mg 3-27 CAPSULE BY [facility] of capsule 00:00: MOUTH TWICE A Medical DAY Branch ZONISAMIDE 3-0 Yes [id number] TAKE 1 [facility] 100 mg 3-27 CAPSULE BY [facility] of capsule 00:00: MOUTH TWICE A Medical DAY Branch ZONISAMIDE 3-0 Yes [id number] TAKE 1 [facility] 100 mg 3-27 CAPSULE BY [facility] of capsule 00:00: MOUTH TWICE A Medical DAY Branch ZONISAMIDE 3-0 Yes [id number] TAKE 1 [facility] 100 mg 3-27 CAPSULE BY it[facility] of capsule 00:00: MOUTH 00 TWICE A Medical DAY Branch ZONISAMIDE 3-0 Yes [id number] TAKE 1 [facility] 100 mg 3-27 CAPSULE BY [facility] of capsule 00:00: MOUTH TWICE A Medical DAY Branch ZONISAMIDE 3-0 Yes [id number] TAKE 1 [facility] 100 mg 3-27 CAPSULE BY [facility] of capsule 00:00: MOUTH [place] 00 TWICE A Medical DAY Branch ZONISAMIDE 2022-0 Yes [id number] TAKE 1 [facility] 100 mg 3-27 CAPSULE BY it[facility] of capsule 00:00: MOUTH [place] 00 TWICE A Medical DAY Branch ZONISAMIDE 3-0 Yes [id number] TAKE 1 [facility] 100 mg 3-27 CAPSULE BY it[facility] of capsule 00:00: MOUTH [place] 00 TWICE A Medical DAY Branch ibuprofen 3-0 2023- No 800mg 800 mg, [facility] vers (IBU) 06-09-14 Oral, ity of tablet 800 15:15: 15:05 ONCE, 1 [place] mg 00 :00 dose, On Medical Tue Branch 06/09/22 at 1015, [facility] dextroamphe 2022-0 Yes [id number] 20mg Take 1 [facility] tamine-amph 3-09 tablet by ity of etamine 00:00: mouth in [place] ([facility]) 00 the Medical 20 mg morning Branch tablet and 1 tablet at noon and 1 tablet in the evening. dextroamphe 3-0 Yes [id number] 20mg Take 1 [facility] tamine-amph 3-09 tablet by ity of etamine 00:00: mouth in [place] ([facility]) 00 the Medical 20 mg morning Branch tablet and 1 tablet at noon and 1 tablet in the evening. dextroamphe 3-0 Yes [id number] 20mg Take 1 [facility] tamine-amph 3-09 tablet by ity of etamine 00:00: mouth in [place] ([facility]) 00 the Medical 20 mg morning Branch tablet and 1 tablet at noon and 1 tablet in the evening. dextroamphe 3-0 Yes [id number] 20mg Take 1 [facility] tamine-amph 3-09 tablet by ity of etamine 00:00: mouth in [place] ([facility]) 00 the Medical 20 mg morning Branch tablet and 1 tablet at noon and 1 tablet in the evening. dextroamphe 2023-0 Yes [id number] 20mg Take 1 [facility] tamine-amph 3-09 tablet by ity of etamine 00:00: mouth in [place] ([facility]) 00 the Medical 20 mg morning Branch tablet and 1 tablet at noon and 1 tablet in the evening. dextroamphe 2023-0 Yes [id number] 20mg Take 1 [facility] tamine-amph 3-09 tablet by ity of etamine 00:00: mouth in [place] ([facility]) 00 the Medical 20 mg morning Branch tablet and 1 tablet at noon and 1 tablet in the evening. dextroamphe 2023-0 Yes [id number] 20mg Take 1 [facility] tamine-amph 3-09 tablet by ity of etamine 00:00: mouth in [place] ([facility]) 00 the Medical 20 mg morning Branch tablet and 1 tablet at noon and 1 tablet in the evening. dextroamphe 2023-0 Yes [id number] 20mg Take 1 [facility] tamine-amph 3-09 tablet by [facility] of etamine 00:00: mouth [facility] [place] [facility] 20 mg morning Branch tablet and 1 tablet at noon and 1 tablet in the evening. dextroamphe 2023-0 Yes [id number] 20mg Take 1 [facility] tamine-amph 3-09 tablet by ity of etamine 00:00: mouth in [place] [facility] the Medical 20 mg morning Branch tablet and 1 tablet at noon and 1 tablet in the evening. dextroamphe 2023-0 Yes [id number] 20mg Take 1 [facility] tamine-amph 3-09 tablet by ity of etamine 00:00: mouth in [place] [facility] 00 the Medical 20 mg morning Branch tablet and 1 tablet at noon and 1 tablet in the evening. dextroamphe 2023-0 2023- No [id number] 20mg Take 1 [facility] tamine-amph 3-09 03-30 tablet by it y of etamine 00:00: 00:00 mouth in [place] ([facility]) 00 :00 the Medical 20 mg morning Branch tablet and 1 tablet at noon and 1 tablet in the evening. dextroamphe 2023-0 2023- No [id number] 20mg Take 1 [facility] tamine-amph 3-09 03-30 tablet by it y of etamine 00:00: 00:00 mouth in [place] ([facility]) 00 :00 the Medical 20 mg morning Branch tablet and 1 tablet at noon and 1 tablet in the evening. dextroamphe 2023-0 Yes [id number] 12.5mg Take 1 [facility] tamine-amph 2-27 tablet by ity of etamine 00:00: mouth in [place] ([facility]) 00 the Medical 12.5 mg morning Branch tablet and 1 tablet at noon and 1 tablet in the evening. clonazePAM 2023-0 Yes [id number] 1mg Take 2 [facility] (KLONOPIN) 2-27 tablets by ity of 0.5 mg 00:00: mouth in [place] tablet 00 the Medical morning Branch and 2 tablets at noon and 2 tablets in the evening. dextroamphe 2023-0 Yes [id number] 12.5mg Take 1 [facility] tamine-amph 2-27 tablet by ity of etamine 00:00: mouth in [place] ([facility]) 00 the Medical 12.5 mg morning Branch tablet and 1 tablet at noon and 1 tablet in the evening. clonazePAM 2023-0 Yes [id number] 1mg Take 2 [facility] (KLONOPIN) 2-27 tablets by ity of 0.5 mg 00:00: mouth in [place] tablet 00 the Medical morning Branch and 2 tablets at noon and 2 tablets in the evening. clonazePAM 2023-0 Yes [id number] 1mg Take 2 [facility] (KLONOPIN) 2-27 tablets by ity of 0.5 mg 00:00: mouth in [place] tablet 00 the Medical morning Branch and 2 tablets at noon and 2 tablets in the evening. clonazePAM 2023-0 Yes [id number] 1mg Take 2 [facility] (KLONOPIN) 2-27 tablets by ity of 0.5 mg 00:00: mouth in [place] tablet 00 the Medical morning Branch and 2 tablets at noon and 2 tablets in the evening. clonazePAM 2023-0 Yes [id number] 1mg Take 2 [facility] (KLONOPIN) 2-27 tablets by ity of 0.5 mg 00:00: mouth in [place] tablet 00 the Medical morning Branch and 2 tablets at noon and 2 tablets in the evening. clonazePAM 2023-0 Yes [id number] 1mg Take 2 [facility] (KLONOPIN) 2-27 tablets by ity of 0.5 mg 00:00: mouth in [place] tablet 00 the Medical morning Branch and 2 tablets at noon and 2 tablets in the evening. clonazePAM 2023-0 Yes [id number] 1mg Take 2 [facility] (KLONOPIN) 2-27 tablets by ity of 0.5 mg 00:00: mouth in [place] tablet 00 the Medical morning Branch and 2 tablets at noon and 2 tablets in the evening. clonazePAM 2023-0 Yes [id number] 1mg Take 2 [facility] (KLONOPIN) 2-27 tablets by ity of 0.5 mg 00:00: mouth in [place] tablet 00 the Medical morning Branch and 2 tablets at noon and 2 tablets in the evening. clonazePAM 2023-0 Yes [id number] 1mg Take 2 [facility] (KLONOPIN) 2-27 tablets by ity of 0.5 mg 00:00: mouth in [place] tablet 00 the Medical morning Branch and 2 tablets at noon and 2 tablets in the evening. clonazePAM 2023-0 Yes [id number] 1mg Take 2 [facility] (KLONOPIN) 2-27 tablets by ity of 0.5 mg 00:00: mouth in [place] tablet 00 the Medical morning Branch and 2 tablets at noon and 2 tablets in the evening. clonazePAM 2023-0 Yes [id number] 1mg Take 2 [facility] (KLONOPIN) 2-27 tablets by ity of 0.5 mg 00:00: mouth in [place] tablet 00 the Medical morning Branch and 2 tablets at noon and 2 tablets in the evening. clonazePAM 2023-0 Yes [id number] 1mg Take 2 [facility] (KLONOPIN) 2-27 tablets by ity of 0.5 mg 00:00: mouth in [place] tablet 00 the Medical morning Branch and 2 tablets at noon and 2 tablets in the evening. clonazePAM 2023-0 Yes [id number] 1mg Take 2 [facility] (KLONOPIN) 2-27 tablets by ity of 0.5 mg 00:00: mouth in [place] tablet 00 the Medical morning Branch and 2 tablets at noon and 2 tablets in the evening. clonazePAM 2023-0 Yes [id number] 1mg Take 2 [facility] (KLONOPIN) 2-27 tablets by ity of 0.5 mg 00:00: mouth in [place] tablet 00 the Medical morning Branch and 2 tablets at noon and 2 tablets in the evening. clonazePAM 2023-0 Yes [id number] 1mg Take 2 [facility] (KLONOPIN) 2-27 tablets by ity of 0.5 mg 00:00: mouth in [place] tablet 00 the Medical morning Branch and 2 tablets at noon and 2 tablets in the evening. clonazePAM 2023-0 Yes [id number] 1mg Take 2 [facility] (KLONOPIN) 2-27 tablets by ity of 0.5 mg 00:00: mouth in [place] tablet 00 the Medical morning Branch and 2 tablets at noon and 2 tablets in the evening. clonazePAM 2023-0 Yes [id number] 1mg Take 2 [facility] (KLONOPIN) 2-27 tablets by ity of 0.5 mg 00:00: mouth in [place] tablet 00 the Medical morning Branch and 2 tablets at noon and 2 tablets in the evening. clonazePAM 2023-0 Yes [id number] 1mg Take 2 [facility] (KLONOPIN) 2-27 tablets by ity of 0.5 mg 00:00: mouth in [place] tablet 00 the Medical morning Branch and 2 tablets at noon and 2 tablets in the evening. clonazePAM 2023-0 Yes [id number] 1mg Take 2 [facility] (KLONOPIN) 2-27 tablets by ity of 0.5 mg 00:00: mouth in [place] tablet 00 the Medical morning Branch and 2 tablets at noon and 2 tablets in the evening. clonazePAM 2023-0 Yes [id number] 1mg Take 2 [facility] (KLONOPIN) 2-27 tablets by ity of 0.5 mg 00:00: mouth in [place] tablet 00 the Medical morning Branch and 2 tablets at noon and 2 tablets in the evening. clonazePAM 2023-0 Yes [id number] 1mg Take 2 [facility] (KLONOPIN) 2-27 tablets by ity of 0.5 mg 00:00: mouth in [place] tablet 00 the Medical morning Branch and 2 tablets at noon and 2 tablets in the evening. clonazePAM 2023-0 Yes [id number] 1mg Take 2 [facility] (KLONOPIN) 2-27 tablets by ity of 0.5 mg 00:00: mouth in [place] tablet 00 the Medical morning Branch and 2 tablets at noon and 2 tablets in the evening. clonazePAM 2023-0 Yes [id number] 1mg Take 2 [facility] (KLONOPIN) 2-27 tablets by ity of 0.5 mg 00:00: mouth in [place] tablet 00 the Medical morning Branch and 2 tablets at noon and 2 tablets in the evening. clonazePAM 2023-0 Yes [id number] 1mg Take 2 [facility] (KLONOPIN) 2-27 tablets by ity of 0.5 mg 00:00: mouth in [place] tablet 00 the Medical morning Branch and 2 tablets at noon and 2 tablets in the evening. clonazePAM 2023-0 Yes [id number] 1mg Take 2 [facility] (KLONOPIN) 2-27 tablets by ity of 0.5 mg 00:00: mouth in [place] tablet 00 the Medical morning Branch and 2 tablets at noon and 2 tablets in the evening. clonazePAM 2023-0 Yes [id number] 1mg Take 1 [facility] 1 mg tablet 2-27 tablet by ity of 00:00: mouth in [place] 00 the Medical morning Branch and 1 tablet at noon and 1 tablet in the evening. dextroamphe 2023-0 Yes [id number] 12.5mg Take 1 [facility] tamine-amph 2-27 tablet by ity of etamine 00:00: mouth in [place] ([facility]) 00 the Medical 12.5 mg morning Branch tablet and 1 tablet at noon and 1 tablet in the evening. clonazePAM 2023-0 Yes [id number] 1mg Take 1 [facility] 1 mg tablet 2-27 tablet by ity of 00:00: mouth in [place] 00 the Medical morning Branch and 1 tablet at noon and 1 tablet in the evening. dextroamphe 2023-0 Yes [id number] 12.5mg Take 1 [facility] tamine-amph 2-27 tablet by ity of etamine 00:00: mouth in [place] ([facility]) 00 the Medical 12.5 mg morning Branch tablet and 1 tablet at noon and 1 tablet in the evening. dextroamphe 2023-0 Yes [id number] 12.5mg Take 1 [facility] tamine-amph 2-27 tablet by ity of etamine 00:00: mouth in [place] ([facility]) 00 the Medical 12.5 mg morning Branch tablet and 1 tablet at noon and 1 tablet in the evening. clonazePAM 2023-0 Yes [id number] 1mg Take 2 [facility] (KLONOPIN) 2-27 tablets by ity of 0.5 mg 00:00: mouth in [place] tablet 00 the Medical morning Branch and 2 tablets at noon and 2 tablets in the evening. dextroamphe 2023-0 Yes [id number] 12.5mg Take 1 [facility] tamine-amph 2-27 tablet by ity of etamine 00:00: mouth in [place] ([facility]) 00 the Medical 12.5 mg morning Branch tablet and 1 tablet at noon and 1 tablet in the evening. clonazePAM 2023-0 Yes [id number] 1mg Take 2 [facility] (KLONOPIN) 2-27 tablets by ity of 0.5 mg 00:00: mouth in [place] tablet 00 the Medical morning Branch and 2 tablets at noon and 2 tablets in the evening. dextroamphe 2023-0 Yes [id number] 12.5mg Take 1 [facility] tamine-amph 2-27 tablet by ity of etamine 00:00: mouth in [place] ([facility]) 00 the Medical 12.5 mg morning Branch tablet and 1 tablet at noon and 1 tablet in the evening. clonazePAM 3-0 Yes [id number] 1mg Take 2 [facility] (KLONOPIN) 2-27 tablets by ity of 0.5 mg 00:00: mouth in [place] tablet 00 the Medical morning Branch and 2 tablets at noon and 2 tablets in the evening. clonazePAM 3-0 3- No [id number] 1mg Take 2 [facility] (KLONOPIN) 2-27 05-09 tablets by it y of 0.5 mg 00:00: 00:00 mouth in [place] tablet 00 :00 the Medical morning Branch and 2 tablets at noon and 2 tablets in the evening. clonazePAM 3-0 3- No [id number] 1mg Take 2 [facility] (KLONOPIN) 2-27 05-09 tablets by it y of 0.5 mg 00:00: 00:00 mouth in [place] tablet 00 :00 the Medical morning Branch and 2 tablets at noon and 2 tablets in the evening. dextroamphe 3-0 3- No [id number] 12.5mg Take 1 [facility] tamine-amph 2-27 03-09 tablet by it y of etamine 00:00: 00:00 mouth in [place] ([facility]) 00 :00 the Medical 12.5 mg morning Branch tablet and 1 tablet at noon and 1 tablet in the evening. clonazePAM 3-0 3- No [id number] 1mg Take 1 [facility] 1 mg tablet 2-27 -27 tablet by it y of 00:00: 00:00 mouth in [place] 00 :00 the Medical morning Branch and 1 tablet at noon and 1 tablet in the evening. dextroamphe 3-0 Yes [id number] 12.5mg Take 1 [facility] tamine-amph 2-01 tablet by ity of etamine 00:00: mouth in [place] ([facility]) 00 the Medical 12.5 mg morning Branch tablet and 1 tablet at noon and 1 tablet in the evening. dextroamphe 2023-0 Yes [id number] 12.5mg Take 1 [facility] tamine-amph 2-01 tablet by ity of etamine 00:00: mouth in [place] ([facility]) 00 the Medical 12.5 mg morning Branch tablet and 1 tablet at noon and 1 tablet in the evening. dextroamphe 2023-0 Yes [id number] 12.5mg Take 1 [facility] tamine-amph 2-01 tablet by ity of etamine 00:00: mouth in [place] ([facility]) 00 the Medical 12.5 mg morning Branch tablet and 1 tablet at noon and 1 tablet in the evening. dextroamphe 2023-0 Yes [id number] 12.5mg Take 1 [facility] tamine-amph 2-01 tablet by ity of etamine 00:00: mouth in [place] [facility] 00 the Medical 12.5 mg morning Branch tablet and 1 tablet at noon and 1 tablet in the evening. dextroamphe 2023-0 2023- No [id number] 12.5mg Take 1 [facility] tamine-amph 2-01 -27 tablet by it y of etamine 00:00: 00:00 mouth in [place] [facility] :00 the Medical 12.5 mg morning Branch tablet and 1 tablet at noon and 1 tablet in the evening. dextroamphe 2023-0 2023- No [id number] 12.5mg Take 1 [facility] tamine-amph 2-01 -27 tablet by it y of etamine 00:00: 00:00 mouth in [place] ([facility]) 00 :00 the Medical 12.5 mg morning Branch tablet and 1 tablet at noon and 1 tablet in the evening. dextroamphe 2023-0 2023- No [id number] 12.5mg Take 1 [facility] tamine-amph 2-01 -27 tablet by it y of etamine 00:00: 00:00 mouth in [place] ([facility]) 00 :00 the Medical 12.5 mg morning Branch tablet and 1 tablet at noon and 1 tablet in the evening. dextroamphe 2023-0 Yes [id number] 12.5mg Take 1 [facility] tamine-amph 1-10 tablet by ity of etamine 00:00: mouth in [place] ([facility]) 00 the Medical 12.5 mg morning Branch tablet and 1 tablet at noon and 1 tablet in the evening. dextroamphe 2023-0 Yes [id number] 12.5mg Take 1 [facility] tamine-amph 1-10 tablet by ity of etamine 00:00: mouth in [place] [facility] 00 the Medical 12.5 mg morning Branch tablet and 1 tablet at noon and 1 tablet in the evening. dextroamphe 2023-0 Yes [id number] 12.5mg Take 1 [facility] tamine-amph 1-10 tablet by ity of etamine 00:00: mouth in [place] ([facility] 00 the Medical 12.5 mg morning Branch tablet and 1 tablet at noon and 1 tablet in the evening. dextroamphe 2023-0 Yes [id number] 12.5mg Take 1 [facility] tamine-amph 1-10 tablet by ity of etamine 00:00: mouth in [place] ([facility] 00 the Medical 12.5 mg morning Branch tablet and 1 tablet at noon and 1 tablet in the evening. dextroamphe 2023-0 Yes [id number] 12.5mg Take 1 [facility] tamine-amph 1-10 tablet by ity of etamine 00:00: mouth in [place] ([facility] 00 the Medical 12.5 mg morning Branch tablet and 1 tablet at noon and 1 tablet in the evening. dextroamphe 2023-0 Yes [id number] 12.5mg Take 1 [facility] tamine-amph 1-10 tablet by ity of etamine 00:00: mouth in [place] ([facility] 00 the Medical 12.5 mg morning Branch tablet and 1 tablet at noon and 1 tablet in the evening. dextroamphe 2023-0 Yes [id number] 12.5mg Take 1 [facility] tamine-amph 1-10 tablet by ity of etamine 00:00: mouth in [place] ([facility] 00 the Medical 12.5 mg morning Branch tablet and 1 tablet at noon and 1 tablet in the evening. dextroamphe 2023-0 2023- No [id number] 12.5mg Take 1 [facility] tamine-amph 1-10 - tablet by it y of etamine 00:00: 00:00 mouth in [place] ([facility]) 00 :00 the Medical 12.5 mg morning Branch tablet and 1 tablet at noon and 1 tablet in the evening. dextroamphe 2022-0 2022- No [id number] 12.5mg Take 1 [facility] tamine-amph 1-10 02- tablet by it y of etamine 00:00: 00:00 mouth in [place] ([facility]) 00 :00 the Medical 12.5 mg morning Branch tablet and 1 tablet at noon and 1 tablet in the evening. dextroamphe 3-0 Yes [id number] 15mg Take 1 [facility] tamine-amph 1-09 tablet by ity of etamine 00:00: mouth in [place] ([facility]) 00 the Medical 15 mg morning Branch tablet and 1 tablet at noon and 1 tablet in the evening. dextroamphe 2022-0 Yes [id number] 15mg Take 1 [facility] tamine-amph 1-09 tablet by ity of etamine 00:00: mouth in [place] ([facility]) 00 the Medical 15 mg morning Branch tablet and 1 tablet at noon and 1 tablet in the evening. dextroamphe 2022-0 2022- No [id number] 15mg Take 1 [facility] tamine-amph 1-09 -10 tablet by it y of etamine 00:00: 00:00 mouth in [place] [facility] :00 the Medical 15 mg morning Branch tablet and 1 tablet at noon and 1 tablet in the evening. SYNTHROID 3-0 Yes [id number] TAKE 1 U nivers 150 mcg 1-02 TABLET BY ity of tablet 00:00: MOUTH [place] 00 EVERY DAY Medical IN THE [place] MORNING SYNTHROID 2023-0 Yes [id number] TAKE 1 U nivers 150 mcg 1-02 TABLET BY ity of tablet 00:00: MOUTH [place] 00 EVERY DAY Medical IN THE [place] MORNING SYNTHROID 2023-0 Yes [id number] TAKE 1 U nivers 150 mcg 1-02 TABLET BY ity of tablet 00:00: MOUTH [place] 00 EVERY DAY Medical IN THE [place] MORNING SYNTHROID 2023-0 Yes [id number] TAKE 1 U nivers 150 mcg 1-02 TABLET BY ity of tablet 00:00: MOUTH [place] 00 EVERY DAY Medical IN THE [place] MORNING SYNTHROID 3-0 Yes [id number] TAKE 1 U nivers 150 mcg 1-02 TABLET BY ity of tablet 00:00: MOUTH [place] 00 EVERY DAY Medical IN THE [facility] SYNTHROID 0 Yes [id number] TAKE 1 U nivers 150 mcg 1-02 TABLET BY ity of tablet 00:00: MOUTH [place] 00 EVERY DAY Medical IN THE [facility] SYNTHROID 0 Yes [id number] TAKE 1 U nivers 150 mcg 1-02 TABLET BY ity of tablet 00:00: MOUTH [place] 00 EVERY DAY Medical IN THE [facility] SYNTHROID Yes [id number] TAKE 1 U nivers 150 mcg 1-02 TABLET BY ity of tablet 00:00: MOUTH [place] 00 EVERY DAY Medical IN THE [facility] SYNTHROID Yes [id number] TAKE 1 U nivers 150 mcg 1-02 TABLET BY ity of tablet 00:00: MOUTH [place] 00 EVERY DAY Medical IN THE [facility] SYNTHROID Yes [id number] TAKE 1 U nivers 150 mcg 1-02 TABLET BY ity of tablet 00:00: MOUTH [place] 00 EVERY DAY Medical IN THE [facility] SYNTHROID Yes [id number] TAKE 1 U nivers 150 mcg 1-02 TABLET BY ity of tablet 00:00: MOUTH [place] 00 EVERY DAY Medical IN THE [facility] SYNTHROID Yes [id number] TAKE 1 U nivers 150 mcg 1-02 TABLET BY ity of tablet 00:00: MOUTH [place] 00 EVERY DAY Medical IN THE [facility] SYNTHROID 0 Yes [id number] TAKE 1 U nivers 150 mcg 1-02 TABLET BY ity of tablet 00:00: MOUTH [place] 00 EVERY DAY Medical IN THE [facility] SYNTHROID 0 Yes [id number] TAKE 1 U nivers 150 mcg 1-02 TABLET BY ity of tablet 00:00: MOUTH [place] 00 EVERY DAY Medical IN THE [facility] SYNTHROID 0 Yes [id number] TAKE 1 U nivers 150 mcg 1-02 TABLET BY ity of tablet 00:00: MOUTH [place] 00 EVERY DAY Medical IN THE [facility] SYNTHROID 0 Yes [id number] TAKE 1 U nivers 150 mcg 1-02 TABLET BY ity of tablet 00:00: MOUTH [place] 00 EVERY DAY Medical IN THE [facility] SYNTHROID 0 Yes [id number] TAKE 1 U nivers 150 mcg 1-02 TABLET BY ity of tablet 00:00: MOUTH [place] 00 EVERY DAY Medical IN THE [facility] SYNTHROID Yes [id number] TAKE 1 U nivers 150 mcg 1-02 TABLET BY ity of tablet 00:00: MOUTH [place] 00 EVERY DAY Medical IN THE [facility] SYNTHROID Yes [id number] TAKE 1 U nivers 150 mcg 1-02 TABLET BY ity of tablet 00:00: MOUTH [place] 00 EVERY DAY Medical IN THE [facility] SYNTHROID Yes [id number] TAKE 1 U nivers 150 mcg 1-02 TABLET BY ity of tablet 00:00: MOUTH [place] 00 EVERY DAY Medical IN THE [facility] SYNTHROID Yes [id number] TAKE 1 U nivers 150 mcg 1-02 TABLET BY ity of tablet 00:00: MOUTH [place] 00 EVERY DAY Medical IN THE [facility] SYNTHROID Yes [id number] TAKE 1 U nivers 150 mcg 1-02 TABLET BY ity of tablet 00:00: MOUTH [place] 00 EVERY DAY Medical IN THE [facility] SYNTHROID Yes [id number] TAKE 1 U nivers 150 mcg 1-02 TABLET BY ity of tablet 00:00: MOUTH [place] 00 EVERY DAY Medical IN THE [facility] SYNTHROID Yes [id number] TAKE 1 U nivers 150 mcg 1-02 TABLET BY ity of tablet 00:00: MOUTH [place] 00 EVERY DAY Medical IN THE [facility] SYNTHROID Yes [id number] TAKE 1 U nivers 150 mcg 1-02 TABLET BY ity of tablet 00:00: MOUTH [place] 00 EVERY DAY Medical IN THE [facility] SYNTHROID Yes [id number] TAKE 1 U nivers 150 mcg 1-02 TABLET BY ity of tablet 00:00: MOUTH [place] 00 EVERY DAY Medical IN THE [facility] SYNTHROID Yes [id number] TAKE 1 U nivers 150 mcg 1-02 TABLET BY ity of tablet 00:00: MOUTH [place] 00 EVERY DAY Medical IN THE [facility] SYNTHROID Yes [id number] TAKE 1 U nivers 150 mcg 1-02 TABLET BY ity of tablet 00:00: MOUTH [place] 00 EVERY DAY Medical IN THE [facility] SYNTHROID Yes [id number] TAKE 1 U nivers 150 mcg 1-02 TABLET BY ity of tablet 00:00: MOUTH [place] 00 EVERY DAY Medical IN THE [facility] SYNTHROID Yes [id number] TAKE 1 U nivers 150 mcg 1-02 TABLET BY ity of tablet 00:00: MOUTH [place] 00 EVERY DAY Medical IN THE [facility] SYNTHROID Yes [id number] TAKE 1 U nivers 150 mcg 1-02 TABLET BY ity of tablet 00:00: MOUTH [place] 00 EVERY DAY Medical IN THE [facility] SYNTHROID Yes [id number] TAKE 1 U nivers 150 mcg 1-02 TABLET BY ity of tablet 00:00: MOUTH [place] 00 EVERY DAY Medical IN THE [facility] SYNTHROID Yes [id number] TAKE 1 U nivers 150 mcg 1-02 TABLET BY ity of tablet 00:00: MOUTH [place] 00 EVERY DAY Medical IN THE [facility] SYNTHROID Yes [id number] TAKE 1 [facility] nivers 150 mcg 1-02 TABLET BY ity of tablet 00:00: MOUTH [place] 00 EVERY DAY Medical IN THE [facility] SYNTHROID Yes [id number] TAKE 1 U nivers 150 mcg 1-02 TABLET BY ity of tablet 00:00: MOUTH [place] 00 EVERY DAY Medical IN THE [facility] SYNTHROID Yes [id number] TAKE 1 U nivers 150 mcg 1-02 TABLET BY ity of tablet 00:00: MOUTH [place] 00 EVERY DAY Medical IN THE [facility] SYNTHROID Yes [id number] TAKE 1 U nivers 150 mcg 1-02 TABLET BY ity of tablet 00:00: MOUTH [place] 00 EVERY DAY Medical IN THE [facility] SYNTHROID Yes [id number] TAKE 1 U nivers 150 mcg 1-02 TABLET BY ity of tablet 00:00: MOUTH [place] 00 EVERY DAY Medical IN THE [facility] SYNTHROID Yes [id number] TAKE 1 U nivers 150 mcg 1-02 TABLET BY ity of tablet 00:00: MOUTH [place] 00 EVERY DAY Medical IN THE [facility] SYNTHROID Yes [id number] TAKE 1 [facility] nivers 150 mcg 1-02 TABLET BY ity of tablet 00:00: MOUTH [place] 00 EVERY DAY Medical IN THE [facility] SYNTHROID Yes [id number] TAKE 1 [facility] nivers 150 mcg 1-02 TABLET BY ity of tablet 00:00: MOUTH [place] 00 EVERY DAY Medical IN THE [facility] SYNTHROID Yes [id number] TAKE 1 [facility] nivers 150 mcg 1-02 TABLET BY ity of tablet 00:00: MOUTH [place] 00 EVERY DAY Medical IN THE [place] MORNING SYNTHROID 0 Yes [id number] TAKE 1 U nivers 150 mcg 1-02 TABLET BY ity of tablet 00:00: MOUTH [place] 00 EVERY DAY Medical IN THE [facility] SYNTHROID 0 Yes [id number] TAKE 1 U nivers 150 mcg 1-02 TABLET BY ity of tablet 00:00: MOUTH [place] 00 EVERY DAY Medical IN THE [facility] SYNTHROID Yes [id number] TAKE 1 [facility] 150 mcg 1-02 TABLET BY ity of tablet 00:00: MOUTH [place] 00 EVERY DAY Medical IN THE [facility] SYNTHROID Yes [id number] TAKE 1 [facility] 150 mcg 1-02 TABLET BY ity of tablet 00:00: MOUTH [place] 00 EVERY DAY Medical IN THE [facility] SYNTHROID Yes [id number] TAKE 1 [facility] 150 mcg 1-02 TABLET BY ity of tablet 00:00: MOUTH [place] 00 EVERY DAY Medical IN THE [facility] SYNTHROID Yes [id number] TAKE 1 [facility]ivers 150 mcg 1-02 TABLET BY ity of tablet 00:00: MOUTH [place] 00 EVERY DAY Medical IN THE [facility] SYNTHROID Yes [id number] TAKE 1 [facility] 150 mcg 1-02 TABLET BY ity of tablet 00:00: MOUTH [place] 00 EVERY DAY Medical IN THE [facility] SYNTHROID Yes [id number] TAKE 1 [facility] nivers 150 mcg 1-02 TABLET BY ity of tablet 00:00: MOUTH [place] 00 EVERY DAY Medical IN THE [facility] SYNTHROID 0 Yes [id number] TAKE 1 [facility] nivers 150 mcg 1-02 TABLET BY ity of tablet 00:00: MOUTH [place] 00 EVERY DAY Medical IN THE [facility] SYNTHROID 0 Yes [id number] TAKE 1 [facility] nivers 150 mcg 1-02 TABLET BY ity of tablet 00:00: MOUTH [place] 00 EVERY DAY Medical IN THE [facility] SYNTHROID 0 Yes [id number] TAKE 1 [facility] nivers 150 mcg 1-02 TABLET BY ity of tablet 00:00: MOUTH [place] 00 EVERY DAY Medical IN THE [facility] SYNTHROID Yes [id number] TAKE 1 [facility] nivers 150 mcg 1-02 TABLET BY ity of tablet 00:00: MOUTH [place] 00 EVERY DAY Medical IN THE [place] MORNING SYNTHROID Yes [id number] TAKE 1 [facility] nivers 150 mcg 1-02 TABLET BY ity of tablet 00:00: MOUTH [place] 00 EVERY DAY Medical IN THE [place] MORNING SYNTHROID 0 3- No [id number] TAKE 1 [facility] 150 mcg 1-02 05-21 TABLET BY ity of tablet 00:00: 00:00 MOUTH [place] 00 :00 EVERY DAY Medical IN THE [place] MORNING ZONISAMIDE 2021-03 Yes [id number] TAKE 1 [facility] 100 mg 2-27 CAPSULE BY ity of capsule 00:00: MOUTH [place] 00 TWICE A Medical DAY Branch ZONISAMIDE 2021-03 Yes [id number] TAKE 1 [facility] 100 mg 2-27 CAPSULE BY ity of capsule 00:00: MOUTH [place] 00 TWICE A Medical DAY Branch ZONISAMIDE 2021-03 Yes [id number] TAKE 1 [facility] 100 mg 2-27 CAPSULE BY ity of capsule 00:00: MOUTH [place] 00 TWICE A Medical DAY Branch ZONISAMIDE 2021-03 Yes [id number] TAKE 1 [facility] 100 mg 2-27 CAPSULE BY ity of capsule 00:00: MOUTH [place] 00 TWICE A Medical DAY Branch ZONISAMIDE 2021-03 Yes [id number] TAKE 1 [facility] 100 mg 2-27 CAPSULE BY ity of capsule 00:00: MOUTH [place] 00 TWICE A Medical DAY Branch ZONISAMIDE 2021-03 Yes [id number] TAKE 1 [facility] 100 mg 2-27 CAPSULE BY ity of capsule 00:00: MOUTH [place] 00 TWICE A Medical DAY Branch ZONISAMIDE 2021-03 Yes [id number] TAKE 1 [facility] 100 mg 2-27 CAPSULE BY ity of capsule 00:00: MOUTH [place] 00 TWICE A Medical DAY Branch ZONISAMIDE 2021-03 Yes [id number] TAKE 1 [facility] 100 mg 2-27 CAPSULE BY ity of capsule 00:00: MOUTH [place] 00 TWICE A Medical DAY Branch ZONISAMIDE 2021-03 Yes [id number] TAKE 1 [facility] 100 mg 2-27 CAPSULE BY ity of capsule 00:00: MOUTH [place] 00 TWICE A Medical DAY Branch ZONISAMIDE 2021-03 Yes [id number] TAKE 1 [facility] 100 mg 2-27 CAPSULE BY ity of capsule 00:00: MOUTH [place] 00 TWICE A Medical DAY Branch ZONISAMIDE 2021-03 Yes [id number] TAKE 1 [facility] 100 mg 2-27 CAPSULE BY ity of capsule 00:00: MOUTH [place] TWICE A Medical DAY Branch ZONISAMIDE 2021-03 Yes [id number] TAKE 1 [facility] 100 mg 2-27 CAPSULE BY ity of capsule 00:00: MOUTH [place] TWICE A Medical DAY Branch ZONISAMIDE 2021-03 Yes [id number] TAKE 1 [facility] 100 mg 2-27 CAPSULE BY ity of capsule 00:00: MOUTH [place] TWICE A Medical DAY Branch ZONISAMIDE 2021-03 Yes [id number] TAKE 1 [facility] 100 mg 2-27 CAPSULE BY ity of capsule 00:00: MOUTH [place] TWICE A Medical DAY Branch ZONISAMIDE 2021-03 Yes [id number] TAKE 1 [facility] 100 mg 2-27 CAPSULE BY ity of capsule 00:00: MOUTH TWICE A Medical DAY Branch ZONISAMIDE 2021-03 Yes [id number] TAKE 1 [facility] 100 mg 2-27 CAPSULE BY ity of capsule 00:00: MOUTH [place] TWICE A Medical DAY Branch ZONISAMIDE 2021-03 Yes [id number] TAKE 1 [facility] 100 mg 2-27 CAPSULE BY ity of capsule 00:00: MOUTH [place] TWICE A Medical DAY Branch ZONISAMIDE 2021-03 Yes [id number] TAKE 1 [facility] 100 mg 2-27 CAPSULE BY ity of capsule 00:00: MOUTH TWICE A Medical DAY Branch ZONISAMIDE 2021-03 Yes [id number] TAKE 1 [facility] 100 mg 2-27 CAPSULE BY ity of capsule 00:00: MOUTH [place] TWICE A Medical DAY Branch ZONISAMIDE 2021-03 Yes [id number] TAKE 1 [facility] 100 mg 2-27 CAPSULE BY ity of capsule 00:00: MOUTH [place] TWICE A Medical DAY Branch ZONISAMIDE 2021-03 Yes [id number] TAKE 1 [facility] 100 mg 2-27 CAPSULE BY ity of capsule 00:00: MOUTH [place] 00 TWICE A Medical DAY Branch ZONISAMIDE 2021-03 Yes [id number] TAKE 1 [facility] 100 mg 2-27 CAPSULE BY ity of capsule 00:00: MOUTH [place] TWICE A Medical DAY Branch ZONISAMIDE 2021-03 Yes [id number] TAKE 1 [facility] 100 mg 2-27 CAPSULE BY ity of capsule 00:00: MOUTH [place] 00 TWICE A Medical DAY Branch ZONISAMIDE 2021-03 Yes [id number] TAKE 1 [facility] 100 mg 2-27 CAPSULE BY ity of capsule 00:00: MOUTH [place] 00 TWICE A Medical DAY Branch ZONISAMIDE 2021-03 Yes [id number] TAKE 1 [facility] 100 mg 2-27 CAPSULE BY ity of capsule 00:00: MOUTH [place] 00 TWICE A Medical DAY Branch ZONISAMIDE 2021-03 Yes [id number] TAKE 1 [facility] 100 mg 2-27 CAPSULE BY ity of capsule 00:00: MOUTH [place] 00 TWICE A Medical DAY Branch ZONISAMIDE 2021-03 Yes [id number] TAKE 1 [facility] 100 mg 2-27 CAPSULE BY ity of capsule 00:00: MOUTH [place] 00 TWICE A Medical DAY Branch ZONISAMIDE 2021-03 Yes [id number] TAKE 1 [facility] 100 mg 2-27 CAPSULE BY ity of capsule 00:00: MOUTH [place] 00 TWICE A Medical DAY Branch ZONISAMIDE 2021-03 Yes [id number] TAKE 1 [facility] 100 mg 2-27 CAPSULE BY ity of capsule 00:00: MOUTH [place] 00 TWICE A Medical DAY Branch ZONISAMIDE 2021-03 Yes [id number] TAKE 1 [facility] 100 mg 2-27 CAPSULE BY ity of capsule 00:00: MOUTH [place] 00 TWICE A Medical DAY Branch ZONISAMIDE 2021-03 Yes [id number] TAKE 1 [facility] 100 mg 2-27 CAPSULE BY ity of capsule 00:00: MOUTH [place] 00 TWICE A Medical DAY Branch ZONISAMIDE 2021-03 Yes [id number] TAKE 1 [facility] 100 mg 2-27 CAPSULE BY ity of capsule 00:00: MOUTH [place] 00 TWICE A Medical DAY Branch ZONISAMIDE 2021-03 Yes [id number] TAKE 1 [facility] 100 mg 2-27 CAPSULE BY ity of capsule 00:00: MOUTH [place] 00 TWICE A Medical DAY Branch ZONISAMIDE 2021-03 Yes [id number] TAKE 1 [facility] 100 mg 2-27 CAPSULE BY ity of capsule 00:00: MOUTH [place] 00 TWICE A Medical DAY Branch ZONISAMIDE 2021-03- No [id number] TAKE 1 [facility] 100 mg 2-27 03-27 CAPSULE BY ity of capsule 00:00: 00:00 MOUTH [place] 00 :00 TWICE A Medical DAY Branch dextroamphe 2021-03 Yes [id number] 15mg Take 1 [facility] tamine-amph 2-20 tablet by ity of etamine 00:00: mouth in [place] (ADDERALL) 00 the Medical 15 mg morning Branch tablet and 1 tablet at noon and 1 tablet in the evening. dextroamphe 2021-03 Yes [id number] 20mg Take 1 [facility] tamine-amph 2-20 tablet by ity of etamine 00:00: mouth in [place] (ADDERALL) 00 the Medical 20 mg morning Branch tablet and 1 tablet at noon and 1 tablet in the evening. dextroamphe 2021-03 Yes [id number] 20mg Take 1 [facility] tamine-amph 2-20 tablet by ity of etamine 00:00: mouth in [place] (ADDERALL) 00 the Medical 20 mg morning Branch tablet and 1 tablet at noon and 1 tablet in the evening. dextroamphe 2021-03 Yes [id number] 15mg Take 1 [facility] tamine-amph 2-20 tablet by ity of etamine 00:00: mouth in [place] (ADDERALL) 00 the Medical 15 mg morning Branch tablet and 1 tablet at noon and 1 tablet in the evening. dextroamphe 2021-03 Yes [id number] 20mg Take 1 [facility] tamine-amph 2-20 tablet by ity of etamine 00:00: mouth in [place] (ADDERALL) 00 the Medical 20 mg morning Branch tablet and 1 tablet at noon and 1 tablet in the evening. dextroamphe 2021-03 Yes [id number] 15mg Take 1 [facility] tamine-amph 2-20 tablet by ity of etamine 00:00: mouth in [place] (ADDERALL) 00 the Medical 15 mg morning Branch tablet and 1 tablet at noon and 1 tablet in the evening. dextroamphe 2021-03 Yes [id number] 20mg Take 1 [facility] tamine-amph 2-20 tablet by ity of etamine 00:00: mouth in [place] (ADDERALL) 00 the Medical 20 mg morning Branch tablet and 1 tablet at noon and 1 tablet in the evening. dextroamphe 2021-03 Yes [id number] 15mg Take 1 [facility] tamine-amph 2-20 tablet by ity of etamine 00:00: mouth in [place] (ADDERALL) 00 the Medical 15 mg morning Branch tablet and 1 tablet at noon and 1 tablet in the evening. dextroamphe 2021-03 Yes [id number] 20mg Take 1 [facility] tamine-amph 2-20 tablet by ity of etamine 00:00: mouth in [place] (ADDERALL) 00 the Medical 20 mg morning Branch tablet and 1 tablet at noon and 1 tablet in the evening. dextroamphe 2021-03 Yes [id number] 15mg Take 1 [facility] tamine-amph 2-20 tablet by ity of etamine 00:00: mouth in [place] (ADDERALL) 00 the Medical 15 mg morning Branch tablet and 1 tablet at noon and 1 tablet in the evening. dextroamphe 2021-03 Yes [id number] 20mg Take 1 [facility] tamine-amph 2-20 tablet by ity of etamine 00:00: mouth in [place] (ADDERALL) 00 the Medical 20 mg morning Branch tablet and 1 tablet at noon and 1 tablet in the evening. dextroamphe 2021-03 Yes [id number] 20mg Take 1 [facility] tamine-amph 2-20 tablet by ity of etamine 00:00: mouth in [place] (ADDERALL) 00 the Medical 20 mg morning Branch tablet and 1 tablet at noon and 1 tablet in the evening. dextroamphe 2021-03 Yes [id number] 20mg Take 1 [facility] tamine-amph 2-20 tablet by ity of etamine 00:00: mouth in [place] (ADDERALL) 00 the Medical 20 mg morning Branch tablet and 1 tablet at noon and 1 tablet in the evening. dextroamphe 2021-03- No [id number] 20mg Take 1 [facility] tamine-amph 2-20 - tablet by it y of etamine 00:00: 00:00 mouth in [place] (ADDERALL) 00 :00 the Medical 20 mg morning Branch tablet and 1 tablet at noon and 1 tablet in the evening. dextroamphe 2021-03- No [id number] 15mg Take 1 [facility] tamine-amph 2-20 -09 tablet by it y of etamine 00:00: 00:00 mouth [facility] [place] [facility] :00 the Medical 15 mg [...] :00 dose, On Medi gustavo tablet 1 [facility] Branch tablet 03/10/22 at 1915, [facility] SERTRALINE 2021-03 Yes [id number] TAKE 1 [facility] 100 mg 2-13 TABLET BY ity of tablet 00:00: MOUTH [place] 00 EVERY DAY Medical Branch SERTRALINE 2021-03 Yes [id number] TAKE 1 [facility] 100 mg 2-13 TABLET BY ity of tablet 00:00: MOUTH [place] 00 DAY Medical Branch SERTRALINE 2021-03 Yes [id number] TAKE 1 [facility] 100 mg 2-13 TABLET BY ity of tablet 00:00: MOUTH [place] 00 EVERY DAY Medical Branch SERTRALINE 2021-03 Yes [id number] TAKE 1 [facility] 100 mg 2-13 TABLET BY ity of tablet 00:00: MOUTH [place] 00 EVERY DAY Medical Branch SERTRALINE 2021-03 Yes [id number] TAKE 1 [facility] 100 mg 2-13 TABLET BY ity of tablet 00:00: MOUTH [place] 00 DAY Medical Branch SERTRALINE 2021-03 Yes [id number] TAKE 1 [facility] 100 mg 2-13 TABLET BY ity of tablet 00:00: MOUTH [place] 00 EVERY DAY Medical Branch SERTRALINE 2021-03 Yes [id number] TAKE 1 [facility] 100 mg 2-13 TABLET BY ity of tablet 00:00: MOUTH [place] 00 EVERY DAY Medical Branch SERTRALINE 2021-03 Yes [id number] TAKE 1 [facility] 100 mg 2-13 TABLET BY ity of tablet 00:00: MOUTH [place] 00 EVERY DAY Medical Branch SERTRALINE 2021-03 Yes [id number] TAKE 1 [facility] 100 mg 2-13 TABLET BY ity of tablet 00:00: MOUTH [place] 00 EVERY DAY Medical Branch SERTRALINE 2021-03 Yes [id number] TAKE 1 [facility] 100 mg 2-13 TABLET BY ity of tablet 00:00: MOUTH [place] 00 EVERY DAY Medical Branch SERTRALINE 2021-03 Yes [id number] TAKE 1 [facility] 100 mg 2-13 TABLET BY ity of tablet 00:00: MOUTH [place] 00 EVERY DAY Medical Branch SERTRALINE 2021-03 Yes [id number] TAKE 1 [facility] 100 mg 2-13 TABLET BY ity of tablet 00:00: MOUTH [place] 00 EVERY DAY Medical Branch SERTRALINE 2021-03 Yes [id number] TAKE 1 [facility] 100 mg 2-13 TABLET BY ity of tablet 00:00: MOUTH [place] EVERY DAY Medical Branch SERTRALINE 2021-03 Yes [id number] TAKE 1 [facility] 100 mg 2-13 TABLET BY ity of tablet 00:00: MOUTH [place] 00 EVERY DAY Medical Branch SERTRALINE 2021-03 Yes [id number] TAKE 1 [facility] 100 mg 2-13 TABLET BY ity of tablet 00:00: MOUTH [place] EVERY DAY Medical Branch SERTRALINE 2021-03 Yes [id number] TAKE 1 [facility] 100 mg 2-13 TABLET BY ity of tablet 00:00: MOUTH [place] EVERY DAY Medical Branch SERTRALINE 2021-03 Yes [id number] TAKE 1 [facility] 100 mg 2-13 TABLET BY ity of tablet 00:00: MOUTH 00 EVERY DAY Medical Branch SERTRALINE 2021-03 Yes [id number] TAKE 1 [facility] 100 mg 2-13 TABLET BY ity of tablet 00:00: MOUTH [place] EVERY DAY Medical Branch SERTRALINE 2021-03 Yes [id number] TAKE 1 [facility] 100 mg 2-13 TABLET BY ity of tablet 00:00: MOUTH [place] EVERY DAY Medical Branch SERTRALINE 2021-03 Yes [id number] TAKE 1 [facility] 100 mg 2-13 TABLET BY ity of tablet 00:00: MOUTH [place] 00 EVERY DAY Medical Branch SERTRALINE 2021-03 Yes [id number] TAKE 1 [facility] 100 mg 2-13 TABLET BY ity of tablet 00:00: MOUTH [place] 00 EVERY DAY Medical Branch SERTRALINE 2021-03 Yes [id number] TAKE 1 [facility] 100 mg 2-13 TABLET BY ity of tablet 00:00: MOUTH [place] 00 EVERY DAY Medical Branch SERTRALINE 2021-03 Yes [id number] TAKE 1 [facility] 100 mg 2-13 TABLET BY ity of tablet 00:00: MOUTH [place] EVERY DAY Medical Branch SERTRALINE 2021-03 Yes [id number] TAKE 1 [facility] 100 mg 2-13 TABLET BY ity of tablet 00:00: MOUTH [place] 00 EVERY DAY Medical Branch SERTRALINE 2021-03 Yes [id number] TAKE 1 [facility] 100 mg 2-13 TABLET BY ity of tablet 00:00: MOUTH 00 EVERY DAY Medical Branch SERTRALINE 2021-03 Yes [id number] TAKE 1 [facility] 100 mg 2-13 TABLET BY ity of tablet 00:00: MOUTH 00 EVERY DAY Medical Branch SERTRALINE 2021-03 Yes [id number] TAKE 1 [facility] 100 mg 2-13 TABLET BY ity of tablet 00:00: MOUTH [place] 00 EVERY DAY Medical Branch SERTRALINE 2021-03 Yes [id number] TAKE 1 [facility] 100 mg 2-13 TABLET BY ity of tablet 00:00: MOUTH 00 EVERY DAY Medical Branch SERTRALINE 2021-03 Yes [id number] TAKE 1 [facility] 100 mg 2-13 TABLET BY ity of tablet 00:00: MOUTH 00 EVERY DAY Medical Branch SERTRALINE 2021-03 Yes [id number] TAKE 1 [facility] 100 mg 2-13 TABLET BY ity of tablet 00:00: MOUTH EVERY DAY Medical Branch SERTRALINE 2021-03 Yes [id number] TAKE 1 [facility] 100 mg 2-13 TABLET BY ity of tablet 00:00: MOUTH 00 EVERY DAY Medical Branch SERTRALINE 2021-03 Yes [id number] TAKE 1 [facility] 100 mg 2-13 TABLET BY ity of tablet 00:00: MOUTH [place] 00 EVERY DAY Medical Branch SERTRALINE 2021-03 Yes [id number] TAKE 1 [facility] 100 mg 2-13 TABLET BY ity of tablet 00:00: MOUTH [place] EVERY DAY Medical Branch SERTRALINE 2021-03 Yes [id number] TAKE 1 [facility] 100 mg 2-13 TABLET BY ity of tablet 00:00: MOUTH 00 EVERY DAY Medical Branch SERTRALINE 2021-03 Yes [id number] TAKE 1 [facility] 100 mg 2-13 TABLET BY ity of tablet 00:00: MOUTH [place] 00 EVERY DAY Medical Branch SERTRALINE 2021-03 Yes [id number] TAKE 1 [facility] 100 mg 2-13 TABLET BY ity of tablet 00:00: MOUTH [place] 00 EVERY DAY Medical Branch SERTRALINE 2021-03 Yes [id number] TAKE 1 [facility] 100 mg 2-13 TABLET BY ity of tablet 00:00: MOUTH [place] 00 EVERY DAY Medical Branch SERTRALINE 2021-03 Yes [id number] TAKE 1 [facility] 100 mg 2-13 TABLET BY ity of tablet 00:00: MOUTH [place] 00 EVERY DAY Medical Branch SERTRALINE 2021-03 Yes [id number] TAKE 1 [facility] 100 mg 2-13 TABLET BY ity of tablet 00:00: MOUTH [place] 00 EVERY DAY Medical Branch SERTRALINE 2021-03 Yes [id number] TAKE 1 [facility] 100 mg 2-13 TABLET BY ity of tablet 00:00: MOUTH [place] 00 EVERY DAY Medical Branch SERTRALINE 2021-03 Yes [id number] TAKE 1 [facility] 100 mg 2-13 TABLET BY ity of tablet 00:00: MOUTH [place] 00 EVERY DAY Medical Branch SERTRALINE 2021-03 Yes [id number] TAKE 1 [facility] 100 mg 2-13 TABLET BY ity of tablet 00:00: MOUTH [place] 00 EVERY DAY Medical Branch SERTRALINE 2021-03 Yes [id number] TAKE 1 [facility] 100 mg 2-13 TABLET BY ity of tablet 00:00: MOUTH [place] 00 EVERY DAY Medical Branch SERTRALINE 2021-03 Yes [id number] TAKE 1 [facility] 100 mg 2-13 TABLET BY ity of tablet 00:00: MOUTH [place] 00 EVERY DAY Medical Branch SERTRALINE 2021-03 Yes [id number] TAKE 1 [facility] 100 mg 2-13 TABLET BY ity of tablet 00:00: MOUTH [place] 00 EVERY DAY Medical Branch SERTRALINE 2021-03 Yes [id number] TAKE 1 [facility] 100 mg 2-13 TABLET BY ity of tablet 00:00: MOUTH [place] 00 EVERY DAY Medical Branch SERTRALINE 2021-03 Yes [id number] TAKE 1 [facility] 100 mg 2-13 TABLET BY ity of tablet 00:00: MOUTH [place] 00 EVERY DAY Medical Branch SERTRALINE 2021-03 Yes [id number] TAKE 1 [facility] 100 mg 2-13 TABLET BY ity of tablet 00:00: MOUTH [place] 00 EVERY DAY Medical Branch SERTRALINE 2021-03 Yes [id number] TAKE 1 [facility] 100 mg 2-13 TABLET BY ity of tablet 00:00: MOUTH [place] 00 EVERY DAY Medical Branch SERTRALINE 2021-03 Yes [id number] TAKE 1 [facility] 100 mg 2-13 TABLET BY ity of tablet 00:00: MOUTH [place] 00 EVERY DAY Medical Branch SERTRALINE 2021-03 Yes [id number] TAKE 1 [facility] 100 mg 2-13 TABLET BY ity of tablet 00:00: MOUTH [place] 00 EVERY DAY Medical Branch SERTRALINE 2021-03 Yes [id number] TAKE 1 [facility] 100 mg 2-13 TABLET BY ity of tablet 00:00: MOUTH [place] 00 EVERY DAY Medical Branch SERTRALINE 2021- Yes [id number] TAKE 1 [facility] 100 mg 2-13 TABLET BY ity of tablet 00:00: MOUTH [place] 00 EVERY DAY Medical Branch SERTRALINE 2021- Yes [id number] TAKE 1 [facility] 100 mg 2-13 TABLET BY ity of tablet 00:00: MOUTH [place] 00 EVERY DAY Medical Branch SERTRALINE 2021-03 Yes [id number] TAKE 1 [facility] 100 mg 2-13 TABLET BY ity of tablet 00:00: MOUTH [place] 00 EVERY DAY Medical Branch SERTRALINE 2021-03 Yes [id number] TAKE 1 [facility] 100 mg 2-13 TABLET BY ity of tablet 00:00: MOUTH [place] 00 EVERY DAY Medical Branch SERTRALINE 2021-03 Yes [id number] TAKE 1 [facility] 100 mg 2-13 TABLET BY ity of tablet 00:00: MOUTH [place] 00 EVERY DAY Medical Branch SERTRALINE 2021-03 2023- No [id number] TAKE 1 [facility] 100 mg 2-13 05-01 TABLET BY ity of tablet 00:00: 00:00 MOUTH [place] 00 :00 EVERY DAY Medical Branch cephALEXin 2021- Yes [id number] 500mg Take 1 [facility] 500 mg 1-28 capsule by ity of capsule 00:00: mouth in [place] 00 the Medical morning Branch and 1 capsule in the evening. cephALEXin 2021-03 Yes [id number] 500mg Take 1 [facility] 500 mg 1-28 capsule by ity of capsule 00:00: mouth in [place] 00 the Medical morning Branch and 1 capsule in the evening. cephALEXin 2021-03 Yes [id number] 500mg Take 1 [facility] 500 mg 1-28 capsule by ity of capsule 00:00: mouth in [place] 00 the Medical morning Branch and 1 capsule in the evening. cephALEXin 2021- Yes [id number] 500mg Take 1 [facility] 500 mg 1-28 capsule by ity of capsule 00:00: mouth in [place] 00 the Medical morning Branch and 1 capsule in the evening. cephALEXin 2021-03 Yes [id number] 500mg Take 1 [facility] 500 mg 1-28 capsule by ity of capsule 00:00: mouth in [place] 00 the Medical morning Branch and 1 capsule in the evening. cephALEXin 2022-1 Yes [id number] 500mg Take 1 [facility] 500 mg 1-28 capsule by ity of capsule 00:00: mouth in [place] [address] the Medical morning Branch and 1 capsule in the evening. cephALEXin 2022-1 Yes [id number] 500mg Take 1 [facility] 500 mg 1-28 capsule by ity of capsule 00:00: mouth in [place] [address] the Medical morning Branch and 1 capsule in the evening. cephALEXin 202-1 Yes [id number] 500mg Take 1 [facility] 500 mg 1-28 capsule by ity of capsule 00:00: mouth in [place] [address] the Medical morning Branch and 1 capsule in the evening. cephALEXin 2022-1 Yes [id number] 500mg Take 1 [facility] 500 mg 1-28 capsule by ity of capsule 00:00: mouth in [place] [address] the Medical morning Branch and 1 capsule in the evening. cephALEXin 2021-1 Yes [id number] 500mg Take 1 [facility] 500 mg 1-28 capsule by ity of capsule 00:00: mouth in [place] [address] the Medical morning [place] and 1 capsule in the evening. cephALEXin 2021-1 Yes [id number] 500mg Take 1 [facility] 500 mg 1-28 capsule by ity of capsule 00:00: mouth in [place] [address] the Medical morning [place] and 1 capsule in the evening. cephALEXin 2-1 Yes [id number] 500mg Take 1 [facility] 500 mg 1-28 capsule by ity of capsule 00:00: mouth in [place] [address] the Medical morning [place] and 1 capsule in the evening. cephALEXin 2021-1 Yes [id number] 500mg Take 1 [facility] 500 mg 1-28 capsule by ity of capsule 00:00: mouth in [place] [address] the Medical morning Branch and 1 capsule in the evening. cephALEXin 2022-1 Yes [id number] 500mg Take 1 [facility] 500 mg 1-28 capsule by ity of capsule 00:00: mouth in [place] [address] the Medical morning Branch and 1 capsule in the evening. cephALEXin 2022-1 Yes [id number] 500mg Take 1 [facility] 500 mg 1-28 capsule by ity of capsule 00:00: mouth in [place] [address] the Medical morning Branch and 1 capsule in the evening. cephALEXin 2022-1 Yes [id number] 500mg Take 1 [facility] 500 mg 1-28 capsule by ity of capsule 00:00: mouth in [address] Medical morning [place] and 1 capsule in the evening. cephALEXin 2022-1 Yes [id number] 500mg Take 1 [facility] 500 mg 1-28 capsule by ity of capsule 00:00: mouth in [place] 00 the Medical morning Branch and 1 capsule in the evening. cephALEXin 2021-03 Yes [id number] 500mg Take 1 [facility] 500 mg 1-28 capsule by ity of capsule 00:00: mouth in [place] 00 the Medical morning Branch and 1 capsule in the evening. cephALEXin 2021-03 Yes [id number] 500mg Take 1 [facility] 500 mg 1-28 capsule by ity of capsule 00:00: mouth in [place] 00 the Medical morning Branch and 1 capsule in the evening. cephALEXin 2021-03 Yes [id number] 500mg Take 1 [facility] 500 mg 1-28 capsule by ity of capsule 00:00: mouth in [place] 00 the Medical morning Branch and 1 capsule in the evening. cephALEXin 2021-03 Yes [id number] 500mg Take 1 [facility] 500 mg 1-28 capsule by ity of capsule 00:00: mouth in [place] [address] the Medical morning Branch and 1 capsule in the evening. cephALEXin 2021-03 Yes [id number] 500mg Take 1 [facility] 500 mg 1-28 capsule by ity of capsule 00:00: mouth in [place] 00 the Medical morning Branch and 1 capsule in the evening. cephALEXin 2021-03 Yes [id number] 500mg Take 1 [facility] 500 mg 1-28 capsule by it[facility] of capsule 00:00: mouth in [place] 00 the Medical morning Branch and 1 capsule in the evening. cephALEXin 2021-03 Yes [id number] 500mg Take 1 [facility] 500 mg 1-28 capsule by [facility] of capsule 00:00: mouth in [place] 00 the Medical morning Branch and 1 capsule in the evening. dextroamphe 2021-03 Yes [id number] 20mg Take 1 [facility] tamine-amph 1-28 tablet by ity of etamine 00:00: mouth in [place] ([facility]) 00 the Medical 20 mg morning Branch tablet and 1 tablet at noon and 1 tablet in the evening. clonazePAM 2021-03 Yes [id number] 1mg Take 1 [facility] 1 mg tablet 1-28 tablet by ity of 00:00: mouth in [place] 00 the Medical morning Branch and 1 tablet at noon and 1 tablet in the evening. cephALEXin 2021-03 Yes [id number] 500mg Take 1 [facility] 500 mg 1-28 capsule by ity of capsule 00:00: mouth in [place] 00 the Medical morning Branch and 1 capsule in the evening. dextroamphe 2021- Yes [id number] 20mg Take 1 [facility] tamine-amph 1-28 tablet by ity of etamine 00:00: mouth in [place] ([facility]) 00 the Medical 20 mg morning Branch tablet and 1 tablet at noon and 1 tablet in the evening. clonazePAM 2021- Yes [id number] 1mg Take 1 [facility] 1 mg tablet 1-28 tablet by ity of 00:00: mouth in [place] 00 the Medical morning Branch and 1 tablet at noon and 1 tablet in the evening. cephALEXin 2021-03 Yes [id number] 500mg Take 1 [facility] 500 mg 1-28 capsule by ity of capsule 00:00: mouth in [place] 00 the Medical morning Branch and 1 capsule in the evening. dextroamphe 2021-03 Yes [id number] 20mg Take 1 [facility] tamine-amph 1-28 tablet by ity of etamine 00:00: mouth in [place] ([facility]) 00 the Medical 20 mg morning Branch tablet and 1 tablet at noon and 1 tablet in the evening. clonazePAM 2021-03 Yes [id number] 1mg Take 1 [facility] 1 mg tablet 1-28 tablet by ity of 00:00: mouth in [place] 00 the Medical morning Branch and 1 tablet at noon and 1 tablet in the evening. cephALEXin 2021-03 Yes [id number] 500mg Take 1 [facility] 500 mg 1-28 capsule by ity of capsule 00:00: mouth in [place] 00 the Medical morning Branch and 1 capsule in the evening. dextroamphe 2021-03 Yes [id number] 20mg Take 1 [facility] tamine-amph 1-28 tablet by ity of etamine 00:00: mouth in [place] [facility] the Medical 20 mg morning Branch tablet and 1 tablet at noon and 1 tablet in the evening. clonazePAM 2021- Yes [id number] 1mg Take 1 [facility] 1 mg tablet 1-28 tablet by ity of 00:00: mouth in [place] 00 the Medical morning Branch and 1 tablet at noon and 1 tablet in the evening. cephALEXin 2021- Yes [id number] 500mg Take 1 [facility] 500 mg 1-28 capsule by ity of capsule 00:00: mouth in [place] [address] the Medical morning Branch and 1 capsule in the evening. dextroamphe 2021-1 Yes [id number] 20mg Take 1 [facility] tamine-amph 1-28 tablet by ity of etamine 00:00: mouth in [place] ([facility]) 00 the Medical 20 mg morning Branch tablet and 1 tablet at noon and 1 tablet in the evening. clonazePAM 2021- Yes [id number] 1mg Take 1 [facility] 1 mg tablet 1-28 tablet by ity of 00:00: mouth in [place] 00 the Medical morning Branch and 1 tablet at noon and 1 tablet in the evening. cephALEXin 2021- Yes [id number] 500mg Take 1 [facility] 500 mg 1-28 capsule by ity of capsule 00:00: mouth in [place] 00 the Medical morning Branch and 1 capsule in the evening. dextroamphe 2021- Yes [id number] 20mg Take 1 [facility] tamine-amph 1-28 tablet by ity of etamine 00:00: mouth in [place] ([facility]) 00 the Medical 20 mg morning Branch tablet and 1 tablet at noon and 1 tablet in the evening. clonazePAM 2021- Yes [id number] 1mg Take 1 [facility] 1 mg tablet 1-28 tablet by ity of 00:00: mouth in [place] 00 the Medical morning Branch and 1 tablet at noon and 1 tablet in the evening. cephALEXin 2021- Yes [id number] 500mg Take 1 [facility] 500 mg 1-28 capsule by ity of capsule 00:00: mouth in [place] 00 the Medical morning Branch and 1 capsule in the evening. clonazePAM 2021-1 Yes [id number] 1mg Take 1 [facility] 1 mg tablet 1-28 tablet by ity of 00:00: mouth in [place] 00 the Medical morning Branch and 1 tablet at noon and 1 tablet in the evening. cephALEXin 2021-1 Yes [id number] 500mg Take 1 [facility] 500 mg 1-28 capsule by ity of capsule 00:00: mouth in [place] 00 the Medical morning Branch and 1 capsule in the evening. clonazePAM 2021-1 Yes [id number] 1mg Take 1 [facility] 1 mg tablet 1-28 tablet by ity of 00:00: mouth in [place] 00 the Medical morning Branch and 1 tablet at noon and 1 tablet in the evening. cephALEXin 2021-1 Yes [id number] 500mg Take 1 [facility] 500 mg 1-28 capsule by ity of capsule 00:00: mouth in [address] Medical morning [place] and 1 capsule in the evening. clonazePAM 2022-1 Yes [id number] 1mg Take 1 [facility] 1 mg tablet 1-28 tablet by ity of 00:00: mouth in [address] morning [place] and 1 tablet at noon and 1 tablet in the evening. cephALEXin 2021-1 Yes [id number] 500mg Take 1 [facility] 500 mg 1-28 capsule by ity of capsule 00:00: mouth in [address] morning [place] and 1 capsule in the evening. clonazePAM 2021-1 Yes [id number] 1mg Take 1 [facility] 1 mg tablet 1-28 tablet by ity of 00:00: mouth in [address] morning [place] and 1 tablet at noon and 1 tablet in the evening. cephALEXin 2021-1 Yes [id number] 500mg Take 1 [facility] 500 mg 1-28 capsule by ity of capsule 00:00: mouth in [address] morning [place] and 1 capsule in the evening. clonazePAM 2021-1 Yes [id number] 1mg Take 1 [facility] 1 mg tablet 1-28 tablet by ity of 00:00: mouth in [address] morning [place] and 1 tablet at noon and 1 tablet in the evening. cephALEXin 2021-1 Yes [id number] 500mg Take 1 [facility] 500 mg 1-28 capsule by ity of capsule 00:00: mouth in [address] morning [place] and 1 capsule in the evening. clonazePAM 2021-1 Yes [id number] 1mg Take 1 [facility] 1 mg tablet 1-28 tablet by ity of 00:00: mouth in [address] morning [place] and 1 tablet at noon and 1 tablet in the evening. cephALEXin 2021-1 Yes [id number] 500mg Take 1 [facility] 500 mg 1-28 capsule by ity of capsule 00:00: mouth in [address] morning [place] and 1 capsule in the evening. clonazePAM 2022-1 Yes [id number] 1mg Take 1 [facility] 1 mg tablet 1-28 tablet by ity of 00:00: mouth in [address] morning [place] and 1 tablet at noon and 1 tablet in the evening. cephALEXin 2022-1 Yes [id number] 500mg Take 1 [facility] 500 mg 1-28 capsule by ity of capsule 00:00: mouth in [place] 00 the Medical morning Branch and 1 capsule in the evening. clonazePAM 2022-1 Yes [id number] 1mg Take 1 [facility] 1 mg tablet 1-28 tablet by ity of 00:00: mouth in [place] [address] the [facility] morning Branch and 1 tablet at noon and 1 tablet in the evening. cephALEXin 2021-1 Yes [id number] 500mg Take 1 [facility] 500 mg 1-28 capsule by ity of capsule 00:00: mouth in [address] morning [place] and 1 capsule in the evening. clonazePAM 2021-1 Yes [id number] 1mg Take 1 [facility] 1 mg tablet 1-28 tablet by ity of 00:00: mouth in [address] morning [place] and 1 tablet at noon and 1 tablet in the evening. cephALEXin 2021-1 Yes [id number] 500mg Take 1 [facility] 500 mg 1-28 capsule by ity of capsule 00:00: mouth in [address] morning [place] and 1 capsule in the evening. clonazePAM 2021-1 Yes [id number] 1mg Take 1 [facility] 1 mg tablet 1-28 tablet by ity of 00:00: mouth in [address] morning [place] and 1 tablet at noon and 1 tablet in the evening. cephALEXin 2021-1 Yes [id number] 500mg Take 1 [facility] 500 mg 1-28 capsule by ity of capsule 00:00: mouth in [address] and 1 capsule in the evening. clonazePAM 2021-1 Yes [id number] 1mg Take 1 [facility] 1 mg tablet 1-28 tablet by ity of 00:00: mouth in [address] morning [place] and 1 tablet at noon and 1 tablet in the evening. cephALEXin 2-1 Yes [id number] 500mg Take 1 [facility] 500 mg 1-28 capsule by ity of capsule 00:00: mouth in [address] morning [place] and 1 capsule in the evening. clonazePAM 2022-1 Yes [id number] 1mg Take 1 [facility] 1 mg tablet 1-28 tablet by ity of 00:00: mouth in [address] morning [place] and 1 tablet at noon and 1 tablet in the evening. cephALEXin 2022-1 Yes [id number] 500mg Take 1 [facility] 500 mg 1-28 capsule by ity of capsule 00:00: mouth in [address] morning [place] and 1 capsule in the evening. clonazePAM 2022-1 Yes [id number] 1mg Take 1 [facility] 1 mg tablet 1-28 tablet by ity of 00:00: mouth in [place] [address] the Medical morning Branch and 1 tablet at noon and 1 tablet in the evening. cephALEXin 2021-1 Yes [id number] 500mg Take 1 [facility] 500 mg 1-28 capsule by ity of capsule 00:00: mouth in [place] [address] the Medical morning [place] and 1 capsule in the evening. clonazePAM 2021-1 Yes [id number] 1mg Take 1 [facility] 1 mg tablet 1-28 tablet by ity of 00:00: mouth in [address] morning [place] and 1 tablet at noon and 1 tablet in the evening. cephALEXin 2021-1 Yes [id number] 500mg Take 1 [facility] 500 mg 1-28 capsule by ity of capsule 00:00: mouth in [address] morning [place] and 1 capsule in the evening. clonazePAM 2021-1 Yes [id number] 1mg Take 1 [facility] 1 mg tablet 1-28 tablet by ity of 00:00: mouth in [address] morning [place] and 1 tablet at noon and 1 tablet in the evening. cephALEXin 2021-1 Yes [id number] 500mg Take 1 [facility] 500 mg 1-28 capsule by ity of capsule 00:00: mouth in [address] morning [place] and 1 capsule in the evening. clonazePAM 2021-1 Yes [id number] 1mg Take 1 [facility] 1 mg tablet 1-28 tablet by ity of 00:00: mouth in [address] morning [place] and 1 tablet at noon and 1 tablet in the evening. cephALEXin 2021-1 Yes [id number] 500mg Take 1 [facility] 500 mg 1-28 capsule by ity of capsule 00:00: mouth in [address] morning [place] and 1 capsule in the evening. clonazePAM 2-1 Yes [id number] 1mg Take 1 [facility] 1 mg tablet 1-28 tablet by ity of 00:00: mouth in [address] morning [place] and 1 tablet at noon and 1 tablet in the evening. cephALEXin 2022-1 Yes [id number] 500mg Take 1 [facility] 500 mg 1-28 capsule by ity of capsule 00:00: mouth in [address] morning [place] and 1 capsule in the evening. clonazePAM 2022-1 Yes [id number] 1mg Take 1 [facility] 1 mg tablet 1-28 tablet by ity of 00:00: mouth in [place] [address] the Medical morning Branch and 1 tablet at noon and 1 tablet in the evening. cephALEXin 2022-1 Yes [id number] 500mg Take 1 [facility] 500 mg 1-28 capsule by ity of capsule 00:00: mouth in [place] [address] the [facility] morning Branch and 1 capsule in the evening. clonazePAM 2022-1 Yes [id number] 1mg Take 1 [facility] 1 mg tablet 1-28 tablet by ity of 00:00: mouth in [place] [address] the Medical morning Branch and 1 tablet at noon and 1 tablet in the evening. cephALEXin 2021-1 Yes [id number] 500mg Take 1 [facility] 500 mg 1-28 capsule by ity of capsule 00:00: mouth in [address] morning [place] and 1 capsule in the evening. clonazePAM 2-1 Yes [id number] 1mg Take 1 [facility] 1 mg tablet 1-28 tablet by ity of 00:00: mouth in [address] morning [place] and 1 tablet at noon and 1 tablet in the evening. cephALEXin 2021-1 Yes [id number] 500mg Take 1 [facility] 500 mg 1-28 capsule by ity of capsule 00:00: mouth in [address] morning [place] and 1 capsule in the evening. clonazePAM 2-1 Yes [id number] 1mg Take 1 [facility] 1 mg tablet 1-28 tablet by ity of 00:00: mouth in [address] morning [place] and 1 tablet at noon and 1 tablet in the evening. cephALEXin 2022-1 Yes [id number] 500mg Take 1 [facility] 500 mg 1-28 capsule by ity of capsule 00:00: mouth in [address] morning [place] and 1 capsule in the evening. clonazePAM 2022-1 Yes [id number] 1mg Take 1 [facility] 1 mg tablet 1-28 tablet by ity of 00:00: mouth in [address] morning [place] and 1 tablet at noon and 1 tablet in the evening. cephALEXin 2022-1 Yes [id number] 500mg Take 1 [facility] 500 mg 1-28 capsule by ity of capsule 00:00: mouth in [address] morning [place] and 1 capsule in the evening. clonazePAM 2022-1 Yes [id number] 1mg Take 1 [facility] 1 mg tablet 1-28 tablet by ity of 00:00: mouth in [place] 00 the Medical morning Branch and 1 tablet at noon and 1 tablet in the evening. cephALEXin 2021-03 Yes [id number] 500mg Take 1 [facility] 500 mg 1-28 capsule by ity of capsule 00:00: mouth in [place] [address] the Medical morning Branch and 1 capsule in the evening. clonazePAM 2021-03 Yes [id number] 1mg Take 1 [facility] 1 mg tablet 1-28 tablet by ity of 00:00: mouth in [place] [address] the Medical morning Branch and 1 tablet at noon and 1 tablet in the evening. cephALEXin 2021-03 Yes [id number] 500mg Take 1 [facility] 500 mg 1-28 capsule by ity of capsule 00:00: mouth in [place] [address] the Medical morning Branch and 1 capsule in the evening. cephALEXin 2021-03 Yes [id number] 500mg Take 1 [facility] 500 mg 1-28 capsule by ity of capsule 00:00: mouth in [place] [address] the [facility] morning [place] and 1 capsule in the evening. cephALEXin 2021-03 Yes [id number] 500mg Take 1 [facility] 500 mg 1-28 capsule by ity of capsule 00:00: mouth in [place] [address] the Medical morning [place] and 1 capsule in the evening. cephALEXin 2021-03 Yes [id number] 500mg Take 1 [facility] 500 mg 1-28 capsule by ity of capsule 00:00: mouth in [place] [address] the Medical morning [place] and 1 capsule in the evening. cephALEXin 2021-03 Yes [id number] 500mg Take 1 [facility] 500 mg 1-28 capsule by ity of capsule 00:00: mouth in [place] [address] the [facility] morning [place] and 1 capsule in the evening. cephALEXin 2021-03 Yes [id number] 500mg Take 1 [facility] 500 mg 1-28 capsule by ity of capsule 00:00: mouth in [place] [address] the Medical morning Branch and 1 capsule in the evening. cephALEXin 2021-03 Yes [id number] 500mg Take 1 [facility] 500 mg 1-28 capsule by ity of capsule 00:00: mouth in [place] [address] the Medical morning [place] and 1 capsule in the evening. cephALEXin 2021-03- No [id number] 500mg Take 1 [facility] 500 mg 1-28 05-09 capsule by ity of capsule 00:00: 00:00 mouth in [place] 00 :00 the Medical morning [place] and 1 capsule in the evening. cephALEXin 2021-03- No [id number] 500mg Take 1 [facility] 500 mg 1-28 05-09 capsule by ity of capsule 00:00: 00:00 mouth in [place] 00 :00 the Medical morning Branch and 1 capsule in the evening. clonazePAM 2021-03- No [id number] 1mg Take 1 [facility] 1 mg tablet 04-25 tablet by it y of 00:00: 00:00 mouth in [place] 00 :00 the Medical morning Branch and 1 tablet at noon and 1 tablet in the evening. clonazePAM 2021-03- No [id number] 1mg Take 1 [facility] 1 mg tablet 04-25 tablet by it y of 00:00: 00:00 mouth in [place] 00 :00 the Medical morning Branch and 1 tablet at noon and 1 tablet in the evening. clonazePAM 2021-03- No [id number] 1mg Take 1 [facility] 1 mg tablet 04-25 tablet by it y of 00:00: 00:00 mouth in [place] 00 :00 the Medical morning Branch and 1 tablet at noon and 1 tablet in the evening. dextroamphe 2021-03- No [id number] 20mg Take 1 [facility] tamine-amph 04-25 12-20 tablet by it y of etamine 00:00: 00:00 mouth in [place] ([facility]) 00 :00 the Medical 20 mg morning Branch tablet and 1 tablet at noon and 1 tablet in the evening. clonazePAM 2021-03 Yes [id number] 1mg Take 1 [facility] 1 mg tablet 1-01 tablet by ity of 00:00: mouth in [place] 00 the Medical morning Branch and 1 tablet at noon and 1 tablet in the evening. cephALEXin 2021-03 Yes [id number] 500mg Take 1 [facility] 500 mg 1-01 capsule by ity of capsule 00:00: mouth in [place] 00 the Medical morning Branch and 1 capsule in the evening. clonazePAM 2021-03 Yes [id number] 1mg Take 1 [facility] 1 mg tablet 1-01 tablet by ity of 00:00: mouth in [place] 00 the Medical morning Branch and 1 tablet at noon and 1 tablet in the evening. cephALEXin 2021-03 Yes [id number] 500mg Take 1 [facility] 500 mg 1-01 capsule by ity of capsule 00:00: mouth in [place] 00 the Medical morning Branch and 1 capsule in the evening. clonazePAM 2021-03- No [id number] 1mg Take 1 [facility] 1 mg tablet 03-29 tablet by it y of 00:00: 00:00 mouth in [place] 00 :00 the Medical morning Branch and 1 tablet at noon and 1 tablet in the evening. cephALEXin 2021-03- No [id number] 500mg Take 1 [facility] 500 mg 03-29 capsule by ity of capsule 00:00: 00:00 mouth in [place] 00 :00 the Medical morning Branch and 1 capsule in the evening. busPIRone 2021-03 Yes [id number] 10mg Take 1 [facility] n[facility] 10 mg 0-25 tablet by ity of tablet 00:00: mouth in [place] 00 the Medical morning Branch and 1 tablet in the evening. busPIRone 2021-03 Yes [id number] 10mg Take 1 U nivers 10 mg 0-25 tablet by ity of tablet 00:00: mouth in [place] 00 the Medical morning Branch and 1 tablet in the evening. dextroamphe 2021-03 Yes [id number] 20mg Take 1 [facility] tamine-amph 0-25 tablet by ity of etamine 00:00: mouth in [place] ([facility]) 00 the Medical 20 mg morning Branch tablet and 1 tablet at noon and 1 tablet in the evening. busPIRone 2021-03 Yes [id number] 10mg Take 1 U nivers 10 mg 0-25 tablet by ity of tablet 00:00: mouth in [place] 00 the Medical morning Branch and 1 tablet in the evening. dextroamphe 2021-03 Yes [id number] 20mg Take 1 [facility] tamine-amph 0-25 tablet by ity of etamine 00:00: mouth in [place] ([facility]) 00 the Medical 20 mg morning Branch tablet and 1 tablet at noon and 1 tablet in the evening. busPIRone 2021-03 Yes [id number] 10mg Take 1 U nivers 10 mg 0-25 tablet by ity of tablet 00:00: mouth in [place] 00 the Medical morning Branch and 1 tablet in the evening. dextroamphe 2021-03 Yes [id number] 20mg Take 1 [facility] tamine-amph 0-25 tablet by ity of etamine 00:00: mouth in [place] ([facility]) 00 the Medical 20 mg morning Branch tablet and 1 tablet at noon and 1 tablet in the evening. busPIRone 2021-03 Yes [id number] 10mg Take 1 U nivers 10 mg 0-25 tablet by ity of tablet 00:00: mouth in [place] 00 the Medical morning Branch and 1 tablet in the evening. dextroamphe 2021-03 Yes [id number] 20mg Take 1 [facility] tamine-amph 0-25 tablet by ity of etamine 00:00: mouth in [place] ([facility]) 00 the Medical 20 mg morning Branch tablet and 1 tablet at noon and 1 tablet in the evening. busPIRone 2021-03 Yes [id number] 10mg Take 1 U nivers 10 mg 0-25 tablet by ity of tablet 00:00: mouth in [place] 00 the Medical morning Branch and 1 tablet in the evening. dextroamphe 2021-03 Yes [id number] 20mg Take 1 [facility] tamine-amph 0-25 tablet by ity of etamine 00:00: mouth in [place] [facility] the Medical 20 mg morning Branch tablet and 1 tablet at noon and 1 tablet in the evening. busPIRone 2021-03 Yes [id number] 10mg Take 1 U nivers 10 mg 0-25 tablet by ity of tablet 00:00: mouth in [place] 00 the Medical morning Branch and 1 tablet in the evening. dextroamphe 2021-03 Yes [id number] 20mg Take 1 [facility] tamine-amph 0-25 tablet by ity of etamine 00:00: mouth in [place] ([facility]) 00 the Medical 20 mg morning Branch tablet and 1 tablet at noon and 1 tablet in the evening. busPIRone 2021-03 Yes [id number] 10mg Take 1 U nivers 10 mg 0-25 tablet by ity of tablet 00:00: mouth in [place] 00 the Medical morning Branch and 1 tablet in the evening. dextroamphe 2021-03 Yes [id number] 20mg Take 1 [facility] tamine-amph 0-25 tablet by ity of etamine 00:00: mouth in [place] ([facility]) 00 the Medical 20 mg morning Branch tablet and 1 tablet at noon and 1 tablet in the evening. dextroamphe 2021-03 Yes [id number] 20mg Take 1 [facility] tamine-amph 0-25 tablet by ity of etamine 00:00: mouth in [place] ([facility]) 00 the Medical 20 mg morning Branch tablet and 1 tablet at noon and 1 tablet in the evening. dextroamphe 2021- Yes [id number] 20mg Take 1 [facility] tamine-amph 0-25 tablet by ity of etamine 00:00: mouth in [place] ([facility]) 00 the Medical 20 mg morning Branch tablet and 1 tablet at noon and 1 tablet in the evening. dextroamphe 2021-03- No [id number] 20mg Take 1 [facility] tamine-amph 0-25 11-28 tablet by it y of etamine 00:00: 00:00 mouth in [place] ([facility]) 00 :00 the Medical 20 mg morning Branch tablet and 1 tablet at noon and 1 tablet in the evening. busPIRone 2021-03- No [id number] 10mg Take 1 [facility] 10 mg 0-25 11- tablet by ity of tablet 00:00: 00:00 mouth in [place] 00 :00 the Medical morning Branch and 1 tablet in the evening. busPIRone 2021-03- No [id number] 10mg Take 1 [facility] 10 mg 0-25 - tablet by ity of tablet 00:00: 00:00 mouth in [place] 00 :00 the Medical morning Branch and 1 tablet in the evening. dextroamphe 2021-0 Yes [id number] 20mg Take 1 [facility] tamine-amph 9-26 tablet by ity of etamine 00:00: mouth in [place] ([facility]) 00 the Medical 20 mg morning Branch tablet and 1 tablet at noon and 1 tablet in the evening. dextroamphe 2021-0 Yes [id number] 20mg Take 1 [facility] tamine-amph 9-26 tablet by ity of etamine 00:00: mouth in [place] ([facility]) 00 the Medical 20 mg morning Branch tablet and 1 tablet at noon and 1 tablet in the evening. dextroamphe 2021-0 Yes [id number] 20mg Take 1 [facility] tamine-amph 9-26 tablet by ity of etamine 00:00: mouth in [place] ([facility]) 00 the Medical 20 mg morning Branch tablet and 1 tablet at noon and 1 tablet in the evening. dextroamphe 2021-0 Yes [id number] 20mg Take 1 [facility] tamine-amph 9-26 tablet by ity of etamine 00:00: mouth in [place] ([facility]) 00 the Medical 20 mg morning Branch tablet and 1 tablet at noon and 1 tablet in the evening. dextroamphe 2022-0 Yes [id number] 20mg Take 1 [facility] tamine-amph 9-26 tablet by ity of etamine 00:00: mouth in [place] ([facility]) 00 the Medical 20 mg morning Branch tablet and 1 tablet at noon and 1 tablet in the evening. dextroamphe 2022-0 Yes [id number] 20mg Take 1 [facility] tamine-amph 9-26 tablet by ity of etamine 00:00: mouth in [place] ([facility]) 00 the Medical 20 mg morning Branch tablet and 1 tablet at noon and 1 tablet in the evening. dextroamphe 2022-0 Yes [id number] 20mg Take 1 [facility] tamine-amph 9-26 tablet by ity of etamine 00:00: mouth in [place] ([facility]) 00 the Medical 20 mg morning Branch tablet and 1 tablet at noon and 1 tablet in the evening. dextroamphe 2022-0 2022- No [id number] 20mg Take 1 [facility] tamine-amph 9-26 10-25 tablet by it y of etamine 00:00: 00:00 mouth in [place] ([facility]) 00 :00 the Medical 20 mg morning Branch tablet and 1 tablet at noon and 1 tablet in the evening. dextroamphe 2022-0 2- No [id number] 20mg Take 1 [facility] tamine-amph 9-26 10-25 tablet by it y of etamine 00:00: 00:00 mouth in [place] ([facility]) 00 :00 the Medical 20 mg morning Branch tablet and 1 tablet at noon and 1 tablet in the evening. PERMETHRIN 2022-0 Yes [id number] APPLY TO [facility] 5 % cream 9-08 SKIN AND ity of 00:00: LEAVE ON [place] 00 FOR 8 - 10 Medical HOURS THEN Branch REPEAT IN A WEEK PERMETHRIN 2022-0 Yes [id number] APPLY TO [facility] 5 % cream 9-08 SKIN AND ity of 00:00: LEAVE ON [place] 00 FOR 8 - 10 Medical HOURS THEN Branch REPEAT IN A WEEK PERMETHRIN 2022-0 Yes [id number] APPLY TO [facility] 5 % cream 9-08 SKIN AND ity of 00:00: LEAVE ON [place] 00 FOR 8 - 10 Medical HOURS THEN Branch REPEAT IN A WEEK PERMETHRIN 0 Yes [id number] APPLY TO [facility] 5 % cream 9-08 SKIN AND ity of 00:00: LEAVE ON [place] 00 FOR 8 - 10 Medical HOURS THEN Branch REPEAT IN A WEEK PERMETHRIN 0 Yes [id number] APPLY TO [facility] 5 % cream 9-08 SKIN AND ity of 00:00: LEAVE ON 00 FOR 8 - 10 Medical HOURS THEN Branch REPEAT IN A WEEK PERMETHRIN 0 Yes [id number] APPLY TO [facility] 5 % cream 9-08 SKIN AND ity of 00:00: LEAVE ON 00 FOR 8 - 10 Medical HOURS THEN Branch REPEAT IN A WEEK PERMETHRIN 0 Yes [id number] APPLY TO [facility] 5 % cream 9-08 SKIN AND ity of 00:00: LEAVE ON 00 FOR 8 - 10 Medical HOURS THEN Branch REPEAT IN A WEEK PERMETHRIN 0 Yes [id number] APPLY TO [facility] 5 % cream 9-08 SKIN AND ity of 00:00: LEAVE ON [place] 00 FOR 8 - 10 Medical HOURS THEN Branch REPEAT IN A WEEK PERMETHRIN 0 Yes [id number] APPLY TO [facility] 5 % cream 9-08 SKIN AND ity of 00:00: LEAVE ON 00 FOR 8 - 10 Medical HOURS THEN Branch REPEAT IN A WEEK PERMETHRIN 0 Yes [id number] APPLY TO [facility] 5 % cream 9-08 SKIN AND ity of 00:00: LEAVE ON [place] 00 FOR 8 - 10 Medical HOURS THEN Branch REPEAT IN A WEEK PERMETHRIN 0 Yes [id number] APPLY TO [facility] 5 % cream 9-08 SKIN AND ity of 00:00: LEAVE ON [place] 00 FOR 8 - 10 Medical HOURS THEN Branch REPEAT IN A WEEK PERMETHRIN 0 Yes [id number] APPLY TO [facility] 5 % cream 9-08 SKIN AND ity of 00:00: LEAVE ON [place] 00 FOR 8 - 10 Medical HOURS THEN Branch REPEAT IN A WEEK PERMETHRIN 0 Yes [id number] APPLY TO [facility] 5 % cream 9-08 SKIN AND ity of 00:00: LEAVE ON 00 FOR 8 - 10 Medical HOURS THEN Branch REPEAT IN A WEEK PERMETHRIN 0 Yes [id number] APPLY TO [facility] 5 % cream 9-08 SKIN AND ity of 00:00: LEAVE ON [place] 00 FOR 8 - 10 Medical HOURS THEN Branch REPEAT IN A WEEK PERMETHRIN 0 Yes [id number] APPLY TO [facility] 5 % cream 9-08 SKIN AND ity of 00:00: LEAVE ON [place] 00 FOR 8 - 10 Medical HOURS THEN Branch REPEAT IN A WEEK PERMETHRIN 0 Yes [id number] APPLY TO [facility] 5 % cream 9-08 SKIN AND ity of 00:00: LEAVE ON [place] 00 FOR 8 - 10 Medical HOURS THEN Branch REPEAT IN A WEEK PERMETHRIN 0 2021- No [id number] APPLY TO [facility] 5 % cream 9-08 11-01 SKIN AND ity o f 00:00: 00:00 LEAVE ON [place] 00 :00 FOR 8 - 10 Medical HOURS THEN Branch REPEAT IN A WEEK PERMETHRIN 0 2021- No [id number] APPLY TO [facility] 5 % cream 9-08 11-01 SKIN AND ity o f 00:00: 00:00 LEAVE ON [place] 00 :00 FOR 8 - 10 Medical HOURS THEN Branch REPEAT IN A WEEK triamcinolo 0 Yes [id number] Apply to [facility] ne 8-31 area(s) 2 ity of acetonide 00:00: (two) [place] 0.1 % cream 00 times Medical daily. To Branch bumps mupirocin 2 0 Yes [id number] Apply to [facility] % ointment 8-31 area(s) 3 ity of 00:00: (three) [place] 00 times Medical daily. To Branch open wounds triamcinolo 2021-0 Yes [id number] Apply to [facility] ne 8-31 area(s) 2 ity of acetonide 00:00: (two) [place] 0.1 % cream 00 times Medical daily. To Branch bumps mupirocin 2 2021-0 Yes [id number] Apply to [facility] % ointment 8-31 area(s) 3 ity of 00:00: (three) [place] 00 times Medical daily. To Branch open wounds triamcinolo 0 Yes [id number] Apply to [facility] ne 8-31 area(s) 2 ity of acetonide 00:00: (two) [place] 0.1 % cream 00 times Medical daily. To Branch bumps mupirocin 2 2022-0 Yes [id number] Apply to [facility] % ointment 8-31 area(s) 3 ity of 00:00: (three) [place] 00 times Medical daily. To Branch open wounds triamcinolo 2-0 Yes [id number] Apply to [facility] ne 8-31 area(s) 2 ity of acetonide 00:00: (two) [place] 0.1 % cream 00 times Medical daily. To Branch bumps mupirocin 2 2021-0 Yes [id number] Apply to [facility] % ointment 8-31 area(s) 3 ity of 00:00: (three) [place] 00 times Medical daily. To Branch open wounds triamcinolo 2021-0 Yes [id number] Apply to [facility] ne 8-31 area(s) 2 ity of acetonide 00:00: (two) [place] 0.1 % cream 00 times Medical daily. To Branch bumps mupirocin 2 2021-0 Yes [id number] Apply to [facility] % ointment 8-31 area(s) 3 ity of 00:00: (three) [place] 00 times Medical daily. To Branch open wounds triamcinolo 2021-0 Yes [id number] Apply to [facility] ne 8-31 area(s) 2 ity of acetonide 00:00: (two) [place] 0.1 % cream 00 times Medical daily. To Branch bumps mupirocin 2 2021-0 Yes [id number] Apply to [facility] % ointment 8-31 area(s) 3 ity of 00:00: (three) [place] 00 times Medical daily. To Branch open wounds triamcinolo 2-0 Yes [id number] Apply to [facility] ne 8-31 area(s) 2 ity of acetonide 00:00: (two) [place] 0.1 % cream 00 times Medical daily. To Branch bumps mupirocin 2 2-0 Yes [id number] Apply to [facility] % ointment 8-31 area(s) 3 ity of 00:00: (three) [place] 00 times Medical daily. To Branch open wounds triamcinolo 2-0 Yes [id number] Apply to [facility] ne 8-31 area(s) 2 ity of acetonide 00:00: (two) [place] 0.1 % cream 00 times Medical daily. To Branch bumps mupirocin 2 2-0 Yes [id number] Apply to [facility] % ointment 8-31 area(s) 3 ity of 00:00: (three) [place] 00 times Medical daily. To Branch open wounds triamcinolo 2-0 Yes [id number] Apply to [facility] ne 8-31 area(s) 2 ity of acetonide 00:00: (two) [place] 0.1 % cream 00 times Medical daily. To Branch bumps mupirocin 2 2021-0 Yes [id number] Apply to [facility] % ointment 8-31 area(s) 3 ity of 00:00: (three) [place] 00 times Medical daily. To Branch open wounds triamcinolo 2-0 Yes [id number] Apply to [facility] ne 8-31 area(s) 2 ity of acetonide 00:00: (two) [place] 0.1 % cream 00 times Medical daily. To Branch bumps mupirocin 2 2021-0 Yes [id number] Apply to [facility] % ointment 8-31 area(s) 3 ity of 00:00: (three) [place] 00 times Medical daily. To Branch open wounds triamcinolo 2021-0 Yes [id number] Apply to [facility] ne 8-31 area(s) 2 ity of acetonide 00:00: (two) [place] 0.1 % cream 00 times Medical daily. To Branch bumps mupirocin 2 2021-0 Yes [id number] Apply to [facility] % ointment 8-31 area(s) 3 ity of 00:00: (three) [place] 00 times Medical daily. To Branch open wounds triamcinolo 2-0 Yes [id number] Apply to [facility] ne 8-31 area(s) 2 ity of acetonide 00:00: (two) [place] 0.1 % cream 00 times Medical daily. To Branch bumps mupirocin 2 2-0 Yes [id number] Apply to [facility] % ointment 8-31 area(s) 3 ity of 00:00: (three) [place] 00 times Medical daily. To Branch open wounds triamcinolo 2-0 Yes [id number] Apply to [facility] ne 8-31 area(s) 2 ity of acetonide 00:00: (two) [place] 0.1 % cream 00 times Medical daily. To Branch bumps mupirocin 2 2-0 Yes [id number] Apply to [facility] % ointment 8-31 area(s) 3 ity of 00:00: (three) [place] 00 times Medical daily. To Branch open wounds triamcinolo 2-0 Yes [id number] Apply to [facility] ne 8-31 area(s) 2 ity of acetonide 00:00: (two) [place] 0.1 % cream 00 times Medical daily. To Branch bumps mupirocin 2 2021-0 Yes [id number] Apply to [facility] % ointment 8-31 area(s) 3 ity of 00:00: (three) [place] 00 times Medical daily. To Branch open wounds triamcinolo 2-0 Yes [id number] Apply to [facility] ne 8-31 area(s) 2 ity of acetonide 00:00: (two) [place] 0.1 % cream 00 times Medical daily. To Branch bumps mupirocin 2 2021-0 Yes [id number] Apply to [facility] % ointment 8-31 area(s) 3 ity of 00:00: (three) [place] 00 times Medical daily. To Branch open wounds triamcinolo 2-0 Yes [id number] Apply to [facility] ne 8-31 area(s) 2 ity of acetonide 00:00: (two) [place] 0.1 % cream 00 times Medical daily. To Branch bumps mupirocin 2 2021-0 Yes [id number] Apply to [facility] % ointment 8-31 area(s) 3 ity of 00:00: (three) [place] 00 times Medical daily. To Branch open wounds triamcinolo 2-0 Yes [id number] Apply to [facility] ne 8-31 area(s) 2 ity of acetonide 00:00: (two) [place] 0.1 % cream 00 times Medical daily. To Branch bumps mupirocin 2 2-0 Yes [id number] Apply to [facility] % ointment 8-31 area(s) 3 ity of 00:00: (three) [place] 00 times Medical daily. To Branch open wounds triamcinolo 2-0 Yes [id number] Apply to [facility] ne 8-31 area(s) 2 ity of acetonide 00:00: (two) [place] 0.1 % cream 00 times Medical daily. To Branch bumps mupirocin 2 2-0 Yes [id number] Apply to [facility] % ointment 8-31 area(s) 3 ity of 00:00: (three) [place] 00 times Medical daily. To Branch open wounds triamcinolo 2-0 Yes [id number] Apply to [facility] ne 8-31 area(s) 2 ity of acetonide 00:00: (two) [place] 0.1 % cream 00 times Medical daily. To Branch bumps mupirocin 2 2021-0 Yes [id number] Apply to [facility] % ointment 8-31 area(s) 3 ity of 00:00: (three) [place] 00 times Medical daily. To Branch open wounds triamcinolo 2-0 Yes [id number] Apply to [facility] ne 8-31 area(s) 2 ity of acetonide 00:00: (two) [place] 0.1 % cream 00 times Medical daily. To Branch bumps mupirocin 2 2021-0 Yes [id number] Apply to [facility] % ointment 8-31 area(s) 3 ity of 00:00: (three) [place] 00 times Medical daily. To Branch open wounds triamcinolo 2-0 Yes [id number] Apply to [facility] ne 8-31 area(s) 2 ity of acetonide 00:00: (two) [place] 0.1 % cream 00 times Medical daily. To Branch bumps mupirocin 2 2-0 Yes [id number] Apply to [facility] % ointment 8-31 area(s) 3 ity of 00:00: (three) [place] 00 times Medical daily. To Branch open wounds triamcinolo 2-0 Yes [id number] Apply to [facility] ne 8-31 area(s) 2 ity of acetonide 00:00: (two) [place] 0.1 % cream 00 times Medical daily. To Branch bumps mupirocin 2 2-0 Yes [id number] Apply to [facility] % ointment 8-31 area(s) 3 ity of 00:00: (three) [place] 00 times Medical daily. To Branch open wounds triamcinolo 2-0 Yes [id number] Apply to [facility] ne 8-31 area(s) 2 ity of acetonide 00:00: (two) [place] 0.1 % cream 00 times Medical daily. To Branch bumps mupirocin 2 2021-0 Yes [id number] Apply to [facility] % ointment 8-31 area(s) 3 ity of 00:00: (three) [place] 00 times Medical daily. To Branch open wounds triamcinolo 2022-0 Yes [id number] Apply to [facility] ne 8-31 area(s) 2 ity of acetonide 00:00: (two) [place] 0.1 % cream 00 times Medical daily. To Branch bumps mupirocin 2 2021-0 Yes [id number] Apply to [facility] % ointment 8-31 area(s) 3 ity of 00:00: (three) [place] 00 times Medical daily. To Branch open wounds dextroamphe 2021-0 Yes [id number] 20mg Take 1 [facility] tamine-amph 8-31 tablet by ity of etamine 00:00: mouth in [place] (ADDERALL) 00 the Medical 20 mg morning Branch tablet and 1 tablet at noon and 1 tablet in the evening. triamcinolo 2021-0 Yes [id number] Apply to [facility] ne 8-31 area(s) 2 ity of acetonide 00:00: (two) [place] 0.1 % cream 00 times Medical daily. To Branch bumps mupirocin 2 2021-0 Yes [id number] Apply to [facility] % ointment 8-31 area(s) 3 ity of 00:00: (three) [place] 00 times Medical daily. To Branch open wounds dextroamphe 2-0 Yes [id number] 20mg Take 1 [facility] tamine-amph 8-31 tablet by ity of etamine 00:00: mouth in [place] (ADDERALL) 00 the Medical 20 mg morning Branch tablet and 1 tablet at noon and 1 tablet in the evening. triamcinolo 2-0 Yes [id number] Apply to [facility] ne 8-31 area(s) 2 ity of acetonide 00:00: (two) [place] 0.1 % cream 00 times Medical daily. To Branch bumps mupirocin 2 2-0 Yes [id number] Apply to [facility] % ointment 8-31 area(s) 3 ity of 00:00: (three) [place] 00 times Medical daily. To Branch open wounds dextroamphe 2021-0 Yes [id number] 20mg Take 1 [facility] tamine-amph 8-31 tablet by ity of etamine 00:00: mouth in [place] (ADDERALL) 00 the Medical 20 mg morning Branch tablet and 1 tablet at noon and 1 tablet in the evening. triamcinolo 2022-0 Yes [id number] Apply to [facility] ne 8-31 area(s) 2 ity of acetonide 00:00: (two) [place] 0.1 % cream 00 times Medical daily. To Branch bumps mupirocin 2 2021-0 Yes [id number] Apply to [facility] % ointment 8-31 area(s) 3 ity of 00:00: (three) [place] 00 times Medical daily. To Branch open wounds triamcinolo 2-0 Yes [id number] Apply to [facility] ne 8-31 area(s) 2 ity of acetonide 00:00: (two) [place] 0.1 % cream 00 times Medical daily. To Branch bumps mupirocin 2 2021-0 Yes [id number] Apply to [facility] % ointment 8-31 area(s) 3 ity of 00:00: (three) [place] 00 times Medical daily. To Branch open wounds triamcinolo 2-0 Yes [id number] Apply to [facility] ne 8-31 area(s) 2 ity of acetonide 00:00: (two) [place] 0.1 % cream 00 times Medical daily. To Branch bumps mupirocin 2 2021-0 Yes [id number] Apply to [facility] % ointment 8-31 area(s) 3 ity of 00:00: (three) [place] 00 times Medical daily. To Branch open wounds triamcinolo 2-0 Yes [id number] Apply to [facility] ne 8-31 area(s) 2 ity of acetonide 00:00: (two) [place] 0.1 % cream 00 times Medical daily. To Branch bumps mupirocin 2 2-0 Yes [id number] Apply to [facility] % ointment 8-31 area(s) 3 ity of 00:00: (three) [place] 00 times Medical daily. To Branch open wounds triamcinolo 2-0 Yes [id number] Apply to [facility] ne 8-31 area(s) 2 ity of acetonide 00:00: (two) [place] 0.1 % cream 00 times Medical daily. To Branch bumps mupirocin 2 2-0 Yes [id number] Apply to [facility] % ointment 8-31 area(s) 3 ity of 00:00: (three) [place] 00 times Medical daily. To Branch open wounds triamcinolo 2-0 Yes [id number] Apply to [facility] ne 8-31 area(s) 2 ity of acetonide 00:00: (two) [place] 0.1 % cream 00 times Medical daily. To Branch bumps mupirocin 2 2021-0 Yes [id number] Apply to [facility] % ointment 8-31 area(s) 3 ity of 00:00: (three) [place] 00 times Medical daily. To Branch open wounds triamcinolo 2-0 Yes [id number] Apply to [facility] ne 8-31 area(s) 2 ity of acetonide 00:00: (two) [place] 0.1 % cream 00 times Medical daily. To Branch bumps mupirocin 2 2021-0 Yes [id number] Apply to [facility] % ointment 8-31 area(s) 3 ity of 00:00: (three) [place] 00 times Medical daily. To Branch open wounds triamcinolo 2-0 Yes [id number] Apply to [facility] ne 8-31 area(s) 2 ity of acetonide 00:00: (two) [place] 0.1 % cream 00 times Medical daily. To Branch bumps mupirocin 2 2-0 Yes [id number] Apply to [facility] % ointment 8-31 area(s) 3 ity of 00:00: (three) [place] 00 times Medical daily. To Branch open wounds triamcinolo 2-0 Yes [id number] Apply to [facility] ne 8-31 area(s) 2 ity of acetonide 00:00: (two) [place] 0.1 % cream 00 times Medical daily. To Branch bumps mupirocin 2 2-0 Yes [id number] Apply to [facility] % ointment 8-31 area(s) 3 ity of 00:00: (three) [place] 00 times Medical daily. To Branch open wounds triamcinolo 2-0 Yes [id number] Apply to [facility] ne 8-31 area(s) 2 ity of acetonide 00:00: (two) [place] 0.1 % cream 00 times Medical daily. To Branch bumps mupirocin 2 2021-0 Yes [id number] Apply to [facility] % ointment 8-31 area(s) 3 ity of 00:00: (three) [place] 00 times Medical daily. To Branch open wounds triamcinolo 2-0 Yes [id number] Apply to [facility] ne 8-31 area(s) 2 ity of acetonide 00:00: (two) [place] 0.1 % cream 00 times Medical daily. To Branch bumps mupirocin 2 2021-0 Yes [id number] Apply to [facility] % ointment 8-31 area(s) 3 ity of 00:00: (three) [place] 00 times Medical daily. To Branch open wounds triamcinolo 2021-0 Yes [id number] Apply to [facility] ne 8-31 area(s) 2 ity of acetonide 00:00: (two) [place] 0.1 % cream 00 times Medical daily. To Branch bumps mupirocin 2 2021-0 Yes [id number] Apply to [facility] % ointment 8-31 area(s) 3 ity of 00:00: (three) [place] 00 times Medical daily. To Branch open wounds triamcinolo 2-0 Yes [id number] Apply to [facility] ne 8-31 area(s) 2 ity of acetonide 00:00: (two) [place] 0.1 % cream 00 times Medical daily. To Branch bumps mupirocin 2 2021-0 Yes [id number] Apply to [facility] % ointment 8-31 area(s) 3 ity of 00:00: (three) [place] 00 times Medical daily. To Branch open wounds triamcinolo 2-0 Yes [id number] Apply to [facility] ne 8-31 area(s) 2 ity of acetonide 00:00: (two) [place] 0.1 % cream 00 times Medical daily. To Branch bumps mupirocin 2 2-0 Yes [id number] Apply to [facility] % ointment 8-31 area(s) 3 ity of 00:00: (three) [place] 00 times Medical daily. To Branch open wounds triamcinolo 2-0 Yes [id number] Apply to [facility] ne 8-31 area(s) 2 ity of acetonide 00:00: (two) [place] 0.1 % cream 00 times Medical daily. To Branch bumps mupirocin 2 2-0 Yes [id number] Apply to [facility] % ointment 8-31 area(s) 3 ity of 00:00: (three) [place] 00 times Medical daily. To Branch open wounds triamcinolo 2-0 Yes [id number] Apply to [facility] ne 8-31 area(s) 2 ity of acetonide 00:00: (two) [place] 0.1 % cream 00 times Medical daily. To Branch bumps mupirocin 2 2021-0 Yes [id number] Apply to [facility] % ointment 8-31 area(s) 3 ity of 00:00: (three) [place] 00 times Medical daily. To Branch open wounds triamcinolo 2-0 Yes [id number] Apply to [facility] ne 8-31 area(s) 2 ity of acetonide 00:00: (two) [place] 0.1 % cream 00 times Medical daily. To Branch bumps mupirocin 2 2021-0 Yes [id number] Apply to [facility] % ointment 8-31 area(s) 3 ity of 00:00: (three) [place] 00 times Medical daily. To Branch open wounds triamcinolo 2-0 Yes [id number] Apply to [facility] ne 8-31 area(s) 2 ity of acetonide 00:00: (two) [place] 0.1 % cream 00 times Medical daily. To Branch bumps mupirocin 2 2021-0 Yes [id number] Apply to [facility] % ointment 8-31 area(s) 3 ity of 00:00: (three) [place] 00 times Medical daily. To Branch open wounds triamcinolo 2-0 Yes [id number] Apply to [facility] ne 8-31 area(s) 2 ity of acetonide 00:00: (two) [place] 0.1 % cream 00 times Medical daily. To Branch bumps mupirocin 2 2-0 Yes [id number] Apply to [facility] % ointment 8-31 area(s) 3 ity of 00:00: (three) [place] 00 times Medical daily. To Branch open wounds triamcinolo 2-0 Yes [id number] Apply to [facility] ne 8-31 area(s) 2 ity of acetonide 00:00: (two) [place] 0.1 % cream 00 times Medical daily. To Branch bumps mupirocin 2 2-0 Yes [id number] Apply to [facility] % ointment 8-31 area(s) 3 ity of 00:00: (three) [place] 00 times Medical daily. To Branch open wounds triamcinolo 2-0 Yes [id number] Apply to [facility] ne 8-31 area(s) 2 ity of acetonide 00:00: (two) [place] 0.1 % cream 00 times Medical daily. To Branch bumps mupirocin 2 2021-0 Yes [id number] Apply to [facility] % ointment 8-31 area(s) 3 ity of 00:00: (three) [place] 00 times Medical daily. To Branch open wounds triamcinolo 2-0 Yes [id number] Apply to [facility] ne 8-31 area(s) 2 ity of acetonide 00:00: (two) [place] 0.1 % cream 00 times Medical daily. To Branch bumps mupirocin 2 2021-0 Yes [id number] Apply to [facility] % ointment 8-31 area(s) 3 ity of 00:00: (three) [place] 00 times Medical daily. To Branch open wounds triamcinolo 2-0 Yes [id number] Apply to [facility] ne 8-31 area(s) 2 ity of acetonide 00:00: (two) [place] 0.1 % cream 00 times Medical daily. To Branch bumps mupirocin 2 2-0 Yes [id number] Apply to [facility] % ointment 8-31 area(s) 3 ity of 00:00: (three) [place] 00 times Medical daily. To Branch open wounds triamcinolo 2-0 Yes [id number] Apply to [facility] ne 8-31 area(s) 2 ity of acetonide 00:00: (two) [place] 0.1 % cream 00 times Medical daily. To Branch bumps mupirocin 2 2-0 Yes [id number] Apply to [facility] % ointment 8-31 area(s) 3 ity of 00:00: (three) [place] 00 times Medical daily. To Branch open wounds triamcinolo 2-0 Yes [id number] Apply to [facility] ne 8-31 area(s) 2 ity of acetonide 00:00: (two) [place] 0.1 % cream 00 times Medical daily. To Branch bumps mupirocin 2 2021-0 Yes [id number] Apply to [facility] % ointment 8-31 area(s) 3 ity of 00:00: (three) [place] 00 times Medical daily. To Branch open wounds triamcinolo 2-0 Yes [id number] Apply to [facility] ne 8-31 area(s) 2 ity of acetonide 00:00: (two) [place] 0.1 % cream 00 times Medical daily. To Branch bumps mupirocin 2 2021-0 Yes [id number] Apply to [facility] % ointment 8-31 area(s) 3 ity of 00:00: (three) [place] 00 times Medical daily. To Branch open wounds triamcinolo 2021-0 Yes [id number] Apply to [facility] ne 8-31 area(s) 2 ity of acetonide 00:00: (two) [place] 0.1 % cream 00 times Medical daily. To Branch bumps mupirocin 2 2021-0 Yes [id number] Apply to [facility] % ointment 8-31 area(s) 3 ity of 00:00: (three) [place] 00 times Medical daily. To Branch open wounds triamcinolo 2-0 Yes [id number] Apply to [facility] ne 8-31 area(s) 2 ity of acetonide 00:00: (two) [place] 0.1 % cream 00 times Medical daily. To Branch bumps mupirocin 2 2-0 Yes [id number] Apply to [facility] % ointment 8-31 area(s) 3 ity of 00:00: (three) [place] 00 times Medical daily. To Branch open wounds triamcinolo 2-0 Yes [id number] Apply to [facility] ne 8-31 area(s) 2 ity of acetonide 00:00: (two) [place] 0.1 % cream 00 times Medical daily. To Branch bumps mupirocin 2 2-0 Yes [id number] Apply to [facility] % ointment 8-31 area(s) 3 ity of 00:00: (three) [place] 00 times Medical daily. To Branch open wounds triamcinolo 2-0 Yes [id number] Apply to [facility] ne 8-31 area(s) 2 ity of acetonide 00:00: (two) [place] 0.1 % cream 00 times Medical daily. To Branch bumps mupirocin 2 2021-0 Yes [id number] Apply to [facility] % ointment 8-31 area(s) 3 ity of 00:00: (three) [place] 00 times Medical daily. To Branch open wounds triamcinolo 2-0 Yes [id number] Apply to [facility] ne 8-31 area(s) 2 ity of acetonide 00:00: (two) [place] 0.1 % cream 00 times Medical daily. To Branch bumps mupirocin 2 2021-0 Yes [id number] Apply to [facility] % ointment 8-31 area(s) 3 ity of 00:00: (three) [place] 00 times Medical daily. To Branch open wounds triamcinolo 2021-0 Yes [id number] Apply to [facility] ne 8-31 area(s) 2 ity of acetonide 00:00: (two) [place] 0.1 % cream 00 times Medical daily. To Branch bumps mupirocin 2 2021-0 Yes [id number] Apply to [facility] % ointment 8-31 area(s) 3 ity of 00:00: (three) [place] 00 times Medical daily. To Branch open wounds triamcinolo 2-0 Yes [id number] Apply to [facility] ne 8-31 area(s) 2 ity of acetonide 00:00: (two) [place] 0.1 % cream 00 times Medical daily. To Branch bumps mupirocin 2 2-0 Yes [id number] Apply to [facility] % ointment 8-31 area(s) 3 ity of 00:00: (three) [place] 00 times Medical daily. To Branch open wounds triamcinolo 2-0 Yes [id number] Apply to [facility] ne 8-31 area(s) 2 ity of acetonide 00:00: (two) [place] 0.1 % cream 00 times Medical daily. To Branch bumps mupirocin 2 2-0 Yes [id number] Apply to [facility] % ointment 8-31 area(s) 3 ity of 00:00: (three) [place] 00 times Medical daily. To Branch open wounds triamcinolo 2-0 Yes [id number] Apply to [facility] ne 8-31 area(s) 2 ity of acetonide 00:00: (two) [place] 0.1 % cream 00 times Medical daily. To Branch bumps mupirocin 2 2021-0 Yes [id number] Apply to [facility] % ointment 8-31 area(s) 3 ity of 00:00: (three) [place] 00 times Medical daily. To Branch open wounds triamcinolo 2-0 Yes [id number] Apply to [facility] ne 8-31 area(s) 2 ity of acetonide 00:00: (two) [place] 0.1 % cream 00 times Medical daily. To Branch bumps mupirocin 2 2021-0 Yes [id number] Apply to [facility] % ointment 8-31 area(s) 3 ity of 00:00: (three) [place] 00 times Medical daily. To Branch open wounds triamcinolo 2021-0 Yes [id number] Apply to [facility] ne 8-31 area(s) 2 ity of acetonide 00:00: (two) [place] 0.1 % cream 00 times Medical daily. To Branch bumps mupirocin 2 2021-0 Yes [id number] Apply to [facility] % ointment 8-31 area(s) 3 ity of 00:00: (three) [place] 00 times Medical daily. To Branch open wounds triamcinolo 2-0 Yes [id number] Apply to [facility] ne 8-31 area(s) 2 ity of acetonide 00:00: (two) [place] 0.1 % cream 00 times Medical daily. To Branch bumps mupirocin 2 2-0 Yes [id number] Apply to [facility] % ointment 8-31 area(s) 3 ity of 00:00: (three) [place] 00 times Medical daily. To Branch open wounds triamcinolo 2-0 Yes [id number] Apply to [facility] ne 8-31 area(s) 2 ity of acetonide 00:00: (two) [place] 0.1 % cream 00 times Medical daily. To Branch bumps mupirocin 2 2-0 Yes [id number] Apply to [facility] % ointment 8-31 area(s) 3 ity of 00:00: (three) [place] 00 times Medical daily. To Branch open wounds triamcinolo 2-0 Yes [id number] Apply to [facility] ne 8-31 area(s) 2 ity of acetonide 00:00: (two) [place] 0.1 % cream 00 times Medical daily. To Branch bumps mupirocin 2 2021-0 Yes [id number] Apply to [facility] % ointment 8-31 area(s) 3 ity of 00:00: (three) [place] 00 times Medical daily. To Branch open wounds triamcinolo 2-0 Yes [id number] Apply to [facility] ne 8-31 area(s) 2 ity of acetonide 00:00: (two) [place] 0.1 % cream 00 times Medical daily. To Branch bumps mupirocin 2 2021-0 Yes [id number] Apply to [facility] % ointment 8-31 area(s) 3 ity of 00:00: (three) [place] 00 times Medical daily. To Branch open wounds triamcinolo 2-0 Yes [id number] Apply to [facility] ne 8-31 area(s) 2 ity of acetonide 00:00: (two) [place] 0.1 % cream 00 times Medical daily. To Branch bumps mupirocin 2 2021-0 Yes [id number] Apply to [facility] % ointment 8-31 area(s) 3 ity of 00:00: (three) [place] 00 times Medical daily. To Branch open wounds triamcinolo 2-0 Yes [id number] Apply to [facility] ne 8-31 area(s) 2 ity of acetonide 00:00: (two) [place] 0.1 % cream 00 times Medical daily. To Branch bumps mupirocin 2 2-0 Yes [id number] Apply to [facility] % ointment 8-31 area(s) 3 ity of 00:00: (three) [place] 00 times Medical daily. To Branch open wounds triamcinolo 2-0 Yes [id number] Apply to [facility] ne 8-31 area(s) 2 ity of acetonide 00:00: (two) [place] 0.1 % cream 00 times Medical daily. To Branch bumps mupirocin 2 2-0 Yes [id number] Apply to [facility] % ointment 8-31 area(s) 3 ity of 00:00: (three) [place] 00 times Medical daily. To Branch open wounds triamcinolo 2-0 Yes [id number] Apply to [facility] ne 8-31 area(s) 2 ity of acetonide 00:00: (two) [place] 0.1 % cream 00 times Medical daily. To Branch bumps mupirocin 2 2021-0 Yes [id number] Apply to [facility] % ointment 8-31 area(s) 3 ity of 00:00: (three) [place] 00 times Medical daily. To Branch open wounds triamcinolo 2-0 Yes [id number] Apply to [facility] ne 8-31 area(s) 2 ity of acetonide 00:00: (two) [place] 0.1 % cream 00 times Medical daily. To Branch bumps mupirocin 2 2021-0 Yes [id number] Apply to [facility] % ointment 8-31 area(s) 3 ity of 00:00: (three) [place] 00 times Medical daily. To Branch open wounds triamcinolo 2-0 Yes [id number] Apply to [facility] ne 8-31 area(s) 2 ity of acetonide 00:00: (two) [place] 0.1 % cream 00 times Medical daily. To Branch bumps mupirocin 2 2-0 Yes [id number] Apply to [facility] % ointment 8-31 area(s) 3 ity of 00:00: (three) [place] 00 times Medical daily. To Branch open wounds triamcinolo 2-0 Yes [id number] Apply to [facility] ne 8-31 area(s) 2 ity of acetonide 00:00: (two) [place] 0.1 % cream 00 times Medical daily. To Branch bumps mupirocin 2 2-0 Yes [id number] Apply to [facility] % ointment 8-31 area(s) 3 ity of 00:00: (three) [place] 00 times Medical daily. To Branch open wounds triamcinolo 2-0 Yes [id number] Apply to [facility] ne 8-31 area(s) 2 ity of acetonide 00:00: (two) [place] 0.1 % cream 00 times Medical daily. To Branch bumps mupirocin 2 2-0 Yes [id number] Apply to [facility] % ointment 8-31 area(s) 3 ity of 00:00: (three) [place] 00 times Medical daily. To Branch open wounds triamcinolo 2-0 Yes [id number] Apply to [facility] ne 8-31 area(s) 2 ity of acetonide 00:00: (two) [place] 0.1 % cream 00 times Medical daily. To Branch bumps mupirocin 2 2021-0 Yes [id number] Apply to [facility] % ointment 8-31 area(s) 3 ity of 00:00: (three) [place] 00 times Medical daily. To Branch open wounds triamcinolo 2-0 Yes [id number] Apply to [facility] ne 8-31 area(s) 2 ity of acetonide 00:00: (two) [place] 0.1 % cream 00 times Medical daily. To Branch bumps mupirocin 2 2021-0 Yes [id number] Apply to [facility] % ointment 8-31 area(s) 3 ity of 00:00: (three) [place] 00 times Medical daily. To Branch open wounds triamcinolo 2-0 Yes [id number] Apply to [facility] ne 8-31 area(s) 2 ity of acetonide 00:00: (two) [place] 0.1 % cream 00 times Medical daily. To Branch bumps mupirocin 2 2-0 Yes [id number] Apply to [facility] % ointment 8-31 area(s) 3 ity of 00:00: (three) [place] 00 times Medical daily. To Branch open wounds triamcinolo 2-0 Yes [id number] Apply to [facility] ne 8-31 area(s) 2 ity of acetonide 00:00: (two) [place] 0.1 % cream 00 times Medical daily. To Branch bumps mupirocin 2 2-0 Yes [id number] Apply to [facility] % ointment 8-31 area(s) 3 ity of 00:00: (three) [place] 00 times Medical daily. To Branch open wounds triamcinolo 2-0 Yes [id number] Apply to [facility] ne 8-31 area(s) 2 ity of acetonide 00:00: (two) [place] 0.1 % cream 00 times Medical daily. To Branch bumps mupirocin 2 2021-0 Yes [id number] Apply to [facility] % ointment 11-26 area(s) 3 ity of 00:00: (three) [place] 00 times Medical daily. To Branch open wounds triamcinolo 2021-0 Yes [id number] Apply to [facility] 11-26 area(s) 2 ity of acetonide 00:00: (two) [place] 0.1 % cream 00 times Medical daily. To Branch bumps mupirocin 2 2021-0 Yes [id number] Apply to [facility] % ointment 11-26 area(s) 3 ity of 00:00: (three) [place] 00 times Medical daily. To Branch open wounds triamcinolo 2021-0 2022- No [id number] Apply to [facility] 11-26 area(s) 2 ity of acetonide 00:00: 00:00 (two) [place] 0.1 % cream 00 :00 times Medical daily. To Branch bumps mupirocin 2 2021-0 2022- No [id number] Apply to [facility] % ointment 11-26 area(s) 3 ity of 00:00: 00:00 (three) [place] 00 :00 times Medical daily. To Branch open wounds triamcinolo 2021-0 3- No [id number] Apply to [facility] 11-26 area(s) 2 ity of acetonide 00:00: 00:00 (two) [place] 0.1 % cream 00 :00 times Medical daily. To Branch bumps mupirocin 2 2021-0 3- No [id number] Apply to [facility] % ointment 11-26 area(s) 3 ity of 00:00: 00:00 (three) [place] 00 :00 times Medical daily. To Branch open wounds dextroamphe 2021-2- No [id number] 20mg Take 1 [facility] tamine-amph 11-26 tablet by it y of etamine 00:00: 00:00 mouth in [place] (ADDERALL) 00 :00 the Medical 20 mg morning Branch tablet and 1 tablet at noon and 1 tablet in the evening. amoxicillin 2022-0 Yes [id number] 1{tbl} Take 1 [facility] -clavulanat 8-30 tablet by ity of e 875-125 00:00: mouth [place] mg per 00 every 12 Medical tablet (twelve) Branch hours. amoxicillin 2022-0 Yes [id number] 1{tbl} Take 1 [facility] -clavulanat 8-30 tablet by ity of e 875-125 00:00: mouth [place] mg per 00 every 12 Medical tablet (twelve) Branch hours. amoxicillin 2022-0 Yes [id number] 1{tbl} Take 1 [facility] -clavulanat 8-30 tablet by ity of e 875-125 00:00: mouth [place] mg per 00 every 12 Medical tablet (twelve) Branch hours. amoxicillin 202-0 Yes [id number] 1{tbl} Take 1 [facility] -clavulanat 8-30 tablet by ity of e 875-125 00:00: mouth [place] mg per 00 every 12 Medical tablet (twelve) Branch hours. amoxicillin 2021-0 Yes [id number] 1{tbl} Take 1 [facility] -clavulanat 8-30 tablet by ity of e 875-125 00:00: mouth [place] mg per 00 every 12 Medical tablet (twelve) Branch hours. amoxicillin 2022-0 Yes [id number] 1{tbl} Take 1 [facility] -clavulanat 8-30 tablet by ity of e 875-125 00:00: mouth [place] mg per 00 every 12 Medical tablet (twelve) Branch hours. amoxicillin 2021-0 Yes [id number] 1{tbl} Take 1 [facility] -clavulanat 8-30 tablet by ity of e 875-125 00:00: mouth [place] mg per 00 every 12 Medical tablet (twelve) Branch hours. amoxicillin 2022-0 Yes [id number] 1{tbl} Take 1 [facility] -clavulanat 8-30 tablet by ity of e 875-125 00:00: mouth [place] mg per 00 every 12 Medical tablet (twelve) Branch hours. amoxicillin 2022-0 Yes [id number] 1{tbl} Take 1 [facility] -clavulanat 8-30 tablet by ity of e 875-125 00:00: mouth [place] mg per 00 every 12 Medical tablet (twelve) Branch hours. amoxicillin 2022-0 Yes [id number] 1{tbl} Take 1 [facility] -clavulanat 8-30 tablet by ity of e 875-125 00:00: mouth [place] mg per 00 every 12 Medical tablet (twelve) Branch hours. amoxicillin 2021-0 Yes [id number] 1{tbl} Take 1 [facility] -clavulanat 8-30 tablet by ity of e 875-125 00:00: mouth [place] mg per 00 every 12 Medical tablet (twelve) Branch hours. amoxicillin 2021-0 Yes [id number] 1{tbl} Take 1 [facility] -clavulanat 8-30 tablet by ity of e 875-125 00:00: mouth [place] mg per 00 every 12 Medical tablet (twelve) Branch hours. amoxicillin 2021-0 Yes [id number] 1{tbl} Take 1 [facility] -clavulanat 8-30 tablet by ity of e 875-125 00:00: mouth [place] mg per 00 every 12 Medical tablet (twelve) Branch hours. amoxicillin 2021-0 Yes [id number] 1{tbl} Take 1 [facility] -clavulanat 8-30 tablet by ity of e 875-125 00:00: mouth [place] mg per 00 every 12 Medical tablet (twelve) Branch hours. amoxicillin 2021-0 Yes [id number] 1{tbl} Take 1 [facility] -clavulanat 8-30 tablet by ity of e 875-125 00:00: mouth [place] mg per 00 every 12 Medical tablet (twelve) Branch hours. amoxicillin 2021-0 Yes [id number] 1{tbl} Take 1 [facility] -clavulanat 8-30 tablet by ity of e 875-125 00:00: mouth [place] mg per 00 every 12 Medical tablet (twelve) Branch hours. amoxicillin 2021-0 Yes [id number] 1{tbl} Take 1 [facility] -clavulanat 8-30 tablet by ity of e 875-125 00:00: mouth [place] mg per 00 every 12 Medical tablet (twelve) Branch hours. amoxicillin 2021-0 Yes [id number] 1{tbl} Take 1 [facility] -clavulanat 8-30 tablet by ity of e 875-125 00:00: mouth [place] mg per 00 every 12 Medical tablet (twelve) Branch hours. amoxicillin 2021-0 2021- No [id number] 1{tbl} Take 1 [facility] -clavulanat 8-30 - tablet by it y of e 875-125 00:00: 00:00 mouth [place] mg per 00 :00 every 12 Medical tablet (twelve) Branch hours. amoxicillin 2021- No [id number] 1{tbl} Take 1 [facility] -clavulanat 8-30 - tablet by it y of e 875-125 00:00: 00:00 mouth [place] mg per 00 :00 every 12 Medical tablet (twelve) Branch hours. permethrin Yes [id number] Apply to [facility] (ELIMITE) 5 8-23 skin and ity of % cream 00:00: leave on [place] 00 for 8 - 10 Medical hours then Branch repeat in a week permethrin 2021- No [id number] Apply to [facility] (ELIMITE) 5 8-23 09-08 skin and ity of % cream 00:00: 00:00 leave on [place] 00 :00 for 8 - 10 Medical hours then Branch repeat in a week permethrin 2021- No [id number] Apply to [facility] (ELIMITE) 5 8-23 09-08 skin and ity of % cream 00:00: 00:00 leave on [place] 00 :00 for 8 - 10 Medical hours then Branch repeat in a week TRAZODONE Yes [id number] TAKE 1 [facility] vers 50 mg 8-08 TABLET BY ity of tablet 00:00: MOUTH [place] 00 EVERYDAY Medical AT BEDTIME Branch TRAZODONE 2021-0 Yes [id number] TAKE 1 [facility] vers 50 mg 8-08 TABLET BY ity of tablet 00:00: MOUTH [place] 00 EVERYDAY Medical AT BEDTIME Branch TRAZODONE 2021-0 Yes [id number] TAKE 1 [facility] vers 50 mg 8-08 TABLET BY ity of tablet 00:00: MOUTH [place] 00 EVERYDAY Medical AT BEDTIME Branch TRAZODONE 2021-0 Yes [id number] TAKE 1 [facility] vers 50 mg 8-08 TABLET BY ity of tablet 00:00: MOUTH [place] 00 EVERYDAY Medical AT BEDTIME Branch TRAZODONE 2021-0 Yes [id number] TAKE 1 [facility] vers 50 mg 8-08 TABLET BY ity of tablet 00:00: MOUTH [place] 00 EVERYDAY Medical AT BEDTIME Branch TRAZODONE 2021-0 Yes [id number] TAKE 1 [facility] vers 50 mg 8-08 TABLET BY ity of tablet 00:00: MOUTH 00 EVERYDAY Medical AT BEDTIME Branch TRAZODONE 2022-0 Yes [id number] TAKE 1 [facility] vers 50 mg 8-08 TABLET BY ity of tablet 00:00: MOUTH EVERYDAY Medical AT BEDTIME Branch TRAZODONE 2-0 Yes [id number] TAKE 1 [facility] vers 50 mg 8-08 TABLET BY ity of tablet 00:00: MOUTH EVERYDAY Medical AT BEDTIME Branch TRAZODONE 2-0 Yes [id number] TAKE 1 [facility] vers 50 mg 8-08 TABLET BY ity of tablet 00:00: MOUTH 00 EVERYDAY Medical AT BEDTIME Branch TRAZODONE 2-0 Yes [id number] TAKE 1 [facility] vers 50 mg 8-08 TABLET BY ity of tablet 00:00: MOUTH EVERYDAY Medical AT BEDTIME Branch TRAZODONE 2-0 Yes [id number] TAKE 1 [facility] vers 50 mg 8-08 TABLET BY ity of tablet 00:00: MOUTH EVERYDAY Medical AT BEDTIME Branch TRAZODONE 2-0 Yes [id number] TAKE 1 [facility] vers 50 mg 8-08 TABLET BY ity of tablet 00:00: MOUTH EVERYDAY Medical AT BEDTIME Branch TRAZODONE 2-0 Yes [id number] TAKE 1 [facility] vers 50 mg 8-08 TABLET BY ity of tablet 00:00: MOUTH EVERYDAY Medical AT BEDTIME Branch TRAZODONE 2-0 Yes [id number] TAKE 1 [facility] vers 50 mg 8-08 TABLET BY ity of tablet 00:00: MOUTH EVERYDAY Medical AT BEDTIME Branch TRAZODONE 2-0 Yes [id number] TAKE 1 [facility] vers 50 mg 8-08 TABLET BY ity of tablet 00:00: MOUTH EVERYDAY Medical AT BEDTIME Branch TRAZODONE 2-0 Yes [id number] TAKE 1 [facility] vers 50 mg 8-08 TABLET BY ity of tablet 00:00: MOUTH 00 EVERYDAY Medical AT BEDTIME Branch TRAZODONE 2-0 Yes [id number] TAKE 1 [facility] vers 50 mg 8-08 TABLET BY ity of tablet 00:00: MOUTH 00 EVERYDAY Medical AT BEDTIME Branch TRAZODONE 2-0 Yes [id number] TAKE 1 [facility] vers 50 mg 8-08 TABLET BY ity of tablet 00:00: MOUTH [place] 00 EVERYDAY Medical AT BEDTIME Branch TRAZODONE 2-0 Yes [id number] TAKE 1 [facility] vers 50 mg 8-08 TABLET BY ity of tablet 00:00: MOUTH EVERYDAY Medical AT BEDTIME Branch TRAZODONE 2-0 Yes [id number] TAKE 1 [facility] vers 50 mg 8-08 TABLET BY ity of tablet 00:00: MOUTH EVERYDAY Medical AT BEDTIME Branch TRAZODONE 2-0 Yes [id number] TAKE 1 [facility] vers 50 mg 8-08 TABLET BY ity of tablet 00:00: MOUTH EVERYDAY Medical AT BEDTIME Branch TRAZODONE 2-0 Yes [id number] TAKE 1 [facility] vers 50 mg 8-08 TABLET BY ity of tablet 00:00: MOUTH EVERYDAY Medical AT BEDTIME Branch TRAZODONE 2021-0 Yes [id number] TAKE 1 [facility] vers 50 mg 8-08 TABLET BY ity of tablet 00:00: MOUTH EVERYDAY Medical AT BEDTIME Branch TRAZODONE 2-0 Yes [id number] TAKE 1 [facility] vers 50 mg 8-08 TABLET BY ity of tablet 00:00: MOUTH EVERYDAY Medical AT BEDTIME Branch TRAZODONE 2-0 Yes [id number] TAKE 1 [facility] vers 50 mg 8-08 TABLET BY ity of tablet 00:00: MOUTH EVERYDAY Medical AT BEDTIME Branch TRAZODONE 2-0 Yes [id number] TAKE 1 [facility] vers 50 mg 8-08 TABLET BY ity of tablet 00:00: EVERYDAY Medical AT BEDTIME Branch TRAZODONE 2-0 Yes [id number] TAKE 1 [facility] vers 50 mg 8-08 TABLET BY ity of tablet 00:00: MOUTH EVERYDAY Medical AT BEDTIME Branch TRAZODONE 2-0 Yes [id number] TAKE 1 [facility] vers 50 mg 8-08 TABLET BY ity of tablet 00:00: MOUTH EVERYDAY Medical AT BEDTIME Branch TRAZODONE 2-0 Yes [id number] TAKE 1 [facility] vers 50 mg 8-08 TABLET BY ity of tablet 00:00: MOUTH EVERYDAY Medical AT BEDTIME Branch TRAZODONE 2-0 Yes [id number] TAKE 1 [facility] vers 50 mg 8-08 TABLET BY ity of tablet 00:00: MOUTH EVERYDAY Medical AT BEDTIME Branch TRAZODONE 2-0 Yes [id number] TAKE 1 [facility] vers 50 mg 8-08 TABLET BY ity of tablet 00:00: MOUTH 00 EVERYDAY Medical AT BEDTIME Branch TRAZODONE 2022-0 Yes [id number] TAKE 1 [facility] vers 50 mg 8-08 TABLET BY ity of tablet 00:00: MOUTH EVERYDAY Medical AT BEDTIME Branch TRAZODONE 2-0 Yes [id number] TAKE 1 [facility] vers 50 mg 8-08 TABLET BY ity of tablet 00:00: MOUTH EVERYDAY Medical AT BEDTIME Branch TRAZODONE 2-0 Yes [id number] TAKE 1 [facility] vers 50 mg 8-08 TABLET BY ity of tablet 00:00: MOUTH 00 EVERYDAY Medical AT BEDTIME Branch TRAZODONE 2-0 Yes [id number] TAKE 1 [facility] vers 50 mg 8-08 TABLET BY ity of tablet 00:00: MOUTH EVERYDAY Medical AT BEDTIME Branch TRAZODONE 2-0 Yes [id number] TAKE 1 [facility] vers 50 mg 8-08 TABLET BY ity of tablet 00:00: MOUTH EVERYDAY Medical AT BEDTIME Branch TRAZODONE 2-0 Yes [id number] TAKE 1 [facility] vers 50 mg 8-08 TABLET BY ity of tablet 00:00: MOUTH EVERYDAY Medical AT BEDTIME Branch TRAZODONE 2-0 Yes [id number] TAKE 1 [facility] vers 50 mg 8-08 TABLET BY ity of tablet 00:00: MOUTH EVERYDAY Medical AT BEDTIME Branch TRAZODONE 2-0 Yes [id number] TAKE 1 [facility] vers 50 mg 8-08 TABLET BY ity of tablet 00:00: MOUTH EVERYDAY Medical AT BEDTIME Branch TRAZODONE 2-0 Yes [id number] TAKE 1 [facility] vers 50 mg 8-08 TABLET BY ity of tablet 00:00: MOUTH EVERYDAY Medical AT BEDTIME Branch TRAZODONE 2-0 Yes [id number] TAKE 1 [facility] vers 50 mg 8-08 TABLET BY ity of tablet 00:00: MOUTH 00 EVERYDAY Medical AT BEDTIME Branch TRAZODONE 2-0 Yes [id number] TAKE 1 [facility] vers 50 mg 8-08 TABLET BY ity of tablet 00:00: MOUTH 00 EVERYDAY Medical AT BEDTIME Branch TRAZODONE 2-0 Yes [id number] TAKE 1 [facility] vers 50 mg 8-08 TABLET BY ity of tablet 00:00: MOUTH [place] 00 EVERYDAY Medical AT BEDTIME Branch TRAZODONE 2-0 Yes [id number] TAKE 1 [facility] vers 50 mg 8-08 TABLET BY ity of tablet 00:00: MOUTH EVERYDAY Medical AT BEDTIME Branch TRAZODONE 2-0 Yes [id number] TAKE 1 [facility] vers 50 mg 8-08 TABLET BY ity of tablet 00:00: MOUTH EVERYDAY Medical AT BEDTIME Branch TRAZODONE 2-0 Yes [id number] TAKE 1 [facility] vers 50 mg 8-08 TABLET BY ity of tablet 00:00: MOUTH EVERYDAY Medical AT BEDTIME Branch TRAZODONE 2-0 Yes [id number] TAKE 1 [facility] vers 50 mg 8-08 TABLET BY ity of tablet 00:00: MOUTH EVERYDAY Medical AT BEDTIME Branch TRAZODONE 2021-0 Yes [id number] TAKE 1 [facility] vers 50 mg 8-08 TABLET BY ity of tablet 00:00: MOUTH EVERYDAY Medical AT BEDTIME Branch TRAZODONE 2-0 Yes [id number] TAKE 1 [facility] vers 50 mg 8-08 TABLET BY ity of tablet 00:00: MOUTH EVERYDAY Medical AT BEDTIME Branch TRAZODONE 2-0 Yes [id number] TAKE 1 [facility] vers 50 mg 8-08 TABLET BY ity of tablet 00:00: MOUTH EVERYDAY Medical AT BEDTIME Branch TRAZODONE 2-0 Yes [id number] TAKE 1 [facility] vers 50 mg 8-08 TABLET BY ity of tablet 00:00: EVERYDAY Medical AT BEDTIME Branch TRAZODONE 2-0 Yes [id number] TAKE 1 [facility] vers 50 mg 8-08 TABLET BY ity of tablet 00:00: MOUTH EVERYDAY Medical AT BEDTIME Branch TRAZODONE 2-0 Yes [id number] TAKE 1 [facility] vers 50 mg 8-08 TABLET BY ity of tablet 00:00: MOUTH EVERYDAY Medical AT BEDTIME Branch TRAZODONE 2-0 Yes [id number] TAKE 1 [facility] vers 50 mg 8-08 TABLET BY ity of tablet 00:00: MOUTH EVERYDAY Medical AT BEDTIME Branch TRAZODONE 2-0 Yes [id number] TAKE 1 [facility] vers 50 mg 8-08 TABLET BY ity of tablet 00:00: MOUTH EVERYDAY Medical AT BEDTIME Branch TRAZODONE 2-0 Yes [id number] TAKE 1 [facility] vers 50 mg 8-08 TABLET BY ity of tablet 00:00: MOUTH 00 EVERYDAY Medical AT BEDTIME Branch TRAZODONE 2022-0 Yes [id number] TAKE 1 [facility] vers 50 mg 8-08 TABLET BY ity of tablet 00:00: MOUTH EVERYDAY Medical AT BEDTIME Branch TRAZODONE 2-0 Yes [id number] TAKE 1 [facility] vers 50 mg 8-08 TABLET BY ity of tablet 00:00: MOUTH EVERYDAY Medical AT BEDTIME Branch TRAZODONE 2-0 Yes [id number] TAKE 1 [facility] vers 50 mg 8-08 TABLET BY ity of tablet 00:00: MOUTH 00 EVERYDAY Medical AT BEDTIME Branch TRAZODONE 2-0 Yes [id number] TAKE 1 [facility] vers 50 mg 8-08 TABLET BY ity of tablet 00:00: MOUTH EVERYDAY Medical AT BEDTIME Branch TRAZODONE 2-0 Yes [id number] TAKE 1 [facility] vers 50 mg 8-08 TABLET BY ity of tablet 00:00: MOUTH EVERYDAY Medical AT BEDTIME Branch TRAZODONE 2-0 Yes [id number] TAKE 1 [facility] vers 50 mg 8-08 TABLET BY ity of tablet 00:00: MOUTH EVERYDAY Medical AT BEDTIME Branch TRAZODONE 2-0 Yes [id number] TAKE 1 [facility] vers 50 mg 8-08 TABLET BY ity of tablet 00:00: MOUTH EVERYDAY Medical AT BEDTIME Branch TRAZODONE 2-0 Yes [id number] TAKE 1 [facility] vers 50 mg 8-08 TABLET BY ity of tablet 00:00: MOUTH EVERYDAY Medical AT BEDTIME Branch TRAZODONE 2-0 Yes [id number] TAKE 1 [facility] vers 50 mg 8-08 TABLET BY ity of tablet 00:00: MOUTH EVERYDAY Medical AT BEDTIME Branch TRAZODONE 2-0 Yes [id number] TAKE 1 [facility] vers 50 mg 8-08 TABLET BY ity of tablet 00:00: MOUTH 00 EVERYDAY Medical AT BEDTIME Branch TRAZODONE 2-0 Yes [id number] TAKE 1 [facility] vers 50 mg 8-08 TABLET BY ity of tablet 00:00: MOUTH 00 EVERYDAY Medical AT BEDTIME Branch TRAZODONE 2-0 Yes [id number] TAKE 1 [facility] vers 50 mg 8-08 TABLET BY ity of tablet 00:00: MOUTH [place] 00 EVERYDAY Medical AT BEDTIME Branch TRAZODONE 2-0 Yes [id number] TAKE 1 [facility] vers 50 mg 8-08 TABLET BY ity of tablet 00:00: MOUTH EVERYDAY Medical AT BEDTIME Branch TRAZODONE 2-0 Yes [id number] TAKE 1 [facility] vers 50 mg 8-08 TABLET BY ity of tablet 00:00: MOUTH EVERYDAY Medical AT BEDTIME Branch TRAZODONE 2-0 Yes [id number] TAKE 1 [facility] vers 50 mg 8-08 TABLET BY ity of tablet 00:00: MOUTH EVERYDAY Medical AT BEDTIME Branch TRAZODONE 2-0 Yes [id number] TAKE 1 [facility] vers 50 mg 8-08 TABLET BY ity of tablet 00:00: MOUTH EVERYDAY Medical AT BEDTIME Branch TRAZODONE 2021-0 Yes [id number] TAKE 1 [facility] vers 50 mg 8-08 TABLET BY ity of tablet 00:00: MOUTH EVERYDAY Medical AT BEDTIME Branch TRAZODONE 2-0 Yes [id number] TAKE 1 [facility] vers 50 mg 8-08 TABLET BY ity of tablet 00:00: MOUTH EVERYDAY Medical AT BEDTIME Branch TRAZODONE 2-0 Yes [id number] TAKE 1 [facility] vers 50 mg 8-08 TABLET BY ity of tablet 00:00: MOUTH EVERYDAY Medical AT BEDTIME Branch TRAZODONE 2-0 Yes [id number] TAKE 1 [facility] vers 50 mg 8-08 TABLET BY ity of tablet 00:00: EVERYDAY Medical AT BEDTIME Branch TRAZODONE 2-0 Yes [id number] TAKE 1 [facility] vers 50 mg 8-08 TABLET BY ity of tablet 00:00: MOUTH EVERYDAY Medical AT BEDTIME Branch TRAZODONE 2-0 Yes [id number] TAKE 1 [facility] vers 50 mg 8-08 TABLET BY ity of tablet 00:00: MOUTH EVERYDAY Medical AT BEDTIME Branch TRAZODONE 2-0 Yes [id number] TAKE 1 [facility] vers 50 mg 8-08 TABLET BY ity of tablet 00:00: MOUTH EVERYDAY Medical AT BEDTIME Branch TRAZODONE 2-0 Yes [id number] TAKE 1 [facility] vers 50 mg 8-08 TABLET BY ity of tablet 00:00: MOUTH EVERYDAY Medical AT BEDTIME Branch TRAZODONE 2-0 Yes [id number] TAKE 1 [facility] vers 50 mg 8-08 TABLET BY ity of tablet 00:00: MOUTH 00 EVERYDAY Medical AT BEDTIME Branch TRAZODONE 2022-0 Yes [id number] TAKE 1 [facility] vers 50 mg 8-08 TABLET BY ity of tablet 00:00: MOUTH EVERYDAY Medical AT BEDTIME Branch TRAZODONE 2-0 Yes [id number] TAKE 1 [facility] vers 50 mg 8-08 TABLET BY ity of tablet 00:00: MOUTH EVERYDAY Medical AT BEDTIME Branch TRAZODONE 2-0 Yes [id number] TAKE 1 [facility] vers 50 mg 8-08 TABLET BY ity of tablet 00:00: MOUTH 00 EVERYDAY Medical AT BEDTIME Branch TRAZODONE 2-0 Yes [id number] TAKE 1 [facility] vers 50 mg 8-08 TABLET BY ity of tablet 00:00: MOUTH EVERYDAY Medical AT BEDTIME Branch TRAZODONE 2-0 Yes [id number] TAKE 1 [facility] vers 50 mg 8-08 TABLET BY ity of tablet 00:00: MOUTH EVERYDAY Medical AT BEDTIME Branch TRAZODONE 2-0 Yes [id number] TAKE 1 [facility] vers 50 mg 8-08 TABLET BY ity of tablet 00:00: MOUTH EVERYDAY Medical AT BEDTIME Branch TRAZODONE 2-0 Yes [id number] TAKE 1 [facility] vers 50 mg 8-08 TABLET BY ity of tablet 00:00: MOUTH EVERYDAY Medical AT BEDTIME Branch TRAZODONE 2-0 Yes [id number] TAKE 1 [facility] vers 50 mg 8-08 TABLET BY ity of tablet 00:00: MOUTH EVERYDAY Medical AT BEDTIME Branch TRAZODONE 2-0 Yes [id number] TAKE 1 [facility] vers 50 mg 8-08 TABLET BY ity of tablet 00:00: MOUTH EVERYDAY Medical AT BEDTIME Branch TRAZODONE 2-0 Yes [id number] TAKE 1 [facility] vers 50 mg 8-08 TABLET BY ity of tablet 00:00: MOUTH 00 EVERYDAY Medical AT BEDTIME Branch TRAZODONE 2-0 Yes [id number] TAKE 1 [facility] vers 50 mg 8-08 TABLET BY ity of tablet 00:00: MOUTH 00 EVERYDAY Medical AT BEDTIME Branch TRAZODONE 2-0 Yes [id number] TAKE 1 [facility] vers 50 mg 8-08 TABLET BY ity of tablet 00:00: MOUTH [place] 00 EVERYDAY Medical AT BEDTIME Branch TRAZODONE 2-0 Yes [id number] TAKE 1 [facility] vers 50 mg 8-08 TABLET BY ity of tablet 00:00: MOUTH EVERYDAY Medical AT BEDTIME Branch TRAZODONE 2-0 Yes [id number] TAKE 1 [facility] vers 50 mg 8-08 TABLET BY ity of tablet 00:00: MOUTH EVERYDAY Medical AT BEDTIME Branch TRAZODONE 2-0 Yes [id number] TAKE 1 [facility] vers 50 mg 8-08 TABLET BY ity of tablet 00:00: MOUTH EVERYDAY Medical AT BEDTIME Branch TRAZODONE 2-0 Yes [id number] TAKE 1 [facility] vers 50 mg 8-08 TABLET BY ity of tablet 00:00: MOUTH EVERYDAY Medical AT BEDTIME Branch TRAZODONE 2021-0 Yes [id number] TAKE 1 [facility] vers 50 mg 8-08 TABLET BY ity of tablet 00:00: MOUTH EVERYDAY Medical AT BEDTIME Branch TRAZODONE 2-0 Yes [id number] TAKE 1 [facility] vers 50 mg 8-08 TABLET BY ity of tablet 00:00: MOUTH EVERYDAY Medical AT BEDTIME Branch TRAZODONE 2-0 Yes [id number] TAKE 1 [facility] vers 50 mg 8-08 TABLET BY ity of tablet 00:00: MOUTH EVERYDAY Medical AT BEDTIME Branch TRAZODONE 2-0 Yes [id number] TAKE 1 [facility] vers 50 mg 8-08 TABLET BY ity of tablet 00:00: EVERYDAY Medical AT BEDTIME Branch TRAZODONE 2-0 Yes [id number] TAKE 1 [facility] vers 50 mg 8-08 TABLET BY ity of tablet 00:00: MOUTH EVERYDAY Medical AT BEDTIME Branch TRAZODONE 2-0 Yes [id number] TAKE 1 [facility] vers 50 mg 8-08 TABLET BY ity of tablet 00:00: MOUTH EVERYDAY Medical AT BEDTIME Branch TRAZODONE 2-0 Yes [id number] TAKE 1 [facility] vers 50 mg 8-08 TABLET BY ity of tablet 00:00: MOUTH EVERYDAY Medical AT BEDTIME Branch TRAZODONE 2-0 Yes [id number] TAKE 1 [facility] vers 50 mg 8-08 TABLET BY ity of tablet 00:00: MOUTH EVERYDAY Medical AT BEDTIME Branch TRAZODONE 2-0 Yes [id number] TAKE 1 [facility] vers 50 mg 8-08 TABLET BY ity of tablet 00:00: MOUTH 00 EVERYDAY Medical AT BEDTIME Branch TRAZODONE 2022-0 Yes [id number] TAKE 1 [facility] vers 50 mg 8-08 TABLET BY ity of tablet 00:00: MOUTH 00 EVERYDAY Medical AT BEDTIME Branch TRAZODONE 2-0 Yes [id number] TAKE 1 [facility] vers 50 mg 8-08 TABLET BY ity of tablet 00:00: MOUTH EVERYDAY Medical AT BEDTIME Branch TRAZODONE 2021-0 Yes [id number] TAKE 1 [facility] vers 50 mg 8-08 TABLET BY ity of tablet 00:00: MOUTH 00 EVERYDAY Medical AT BEDTIME Branch TRAZODONE 2-0 Yes [id number] TAKE 1 [facility] vers 50 mg 8-08 TABLET BY ity of tablet 00:00: MOUTH EVERYDAY Medical AT BEDTIME Branch TRAZODONE 2021-0 Yes [id number] TAKE 1 [facility] vers 50 mg 8-08 TABLET BY ity of tablet 00:00: [facility] EVERYDAY Medical AT BEDTIME Branch TRAZODONE 2021-0 Yes [id number] TAKE 1 [facility] vers 50 mg 8-08 TABLET BY ity of tablet 00:00: MOUTH EVERYDAY Medical AT BEDTIME Branch TRAZODONE 2021-0 Yes [id number] TAKE 1 [facility] vers 50 mg 8-08 TABLET BY ity of tablet 00:00: MOUTH EVERYDAY Medical AT BEDTIME Branch TRAZODONE 2-0 Yes [id number] TAKE 1 [facility] vers 50 mg 8-08 TABLET BY ity of tablet 00:00: [facility] EVERYDAY Medical AT BEDTIME Branch TRAZODONE 2-0 Yes [id number] TAKE 1 [facility] vers 50 mg 8-08 TABLET BY ity of tablet 00:00: MOUTH EVERYDAY Medical AT BEDTIME Branch clonazePAM 2-0 Yes [id number] 1mg Take 1 [facility] 1 mg tablet 7-13 tablet by ity of 00:00: mouth in [place] the Medical morning Branch and 1 tablet at noon and 1 tablet in the evening. clonazePAM 2021-0 Yes [id number] 1mg Take 1 [facility] 1 mg tablet 7-13 tablet by ity of 00:00: mouth in [place] the Medical morning Branch and 1 tablet at noon and 1 tablet in the evening. clonazePAM 2021-0 Yes [id number] 1mg Take 1 [facility] 1 mg tablet 7-13 tablet by ity of 00:00: mouth in [place] [address] the Medical morning Branch and 1 tablet at noon and 1 tablet in the evening. clonazePAM 2022-0 Yes [id number] 1mg Take 1 [facility] 1 mg tablet 7-13 tablet by ity of 00:00: mouth in [place] [address] the Medical morning Branch and 1 tablet at noon and 1 tablet in the evening. clonazePAM 2022-0 Yes [id number] 1mg Take 1 [facility] 1 mg tablet 7-13 tablet by ity of 00:00: mouth in [place] [address] the Medical morning Branch and 1 tablet at noon and 1 tablet in the evening. clonazePAM 2022-0 Yes [id number] 1mg Take 1 [facility] 1 mg tablet 7-13 tablet by ity of 00:00: mouth in [place] [address] the Medical morning Branch and 1 tablet at noon and 1 tablet in the evening. clonazePAM 2022-0 Yes [id number] 1mg Take 1 [facility] 1 mg tablet 7-13 tablet by ity of 00:00: mouth in [place] [address] the Medical morning [place] and 1 tablet at noon and 1 tablet in the evening. clonazePAM 2022-0 Yes [id number] 1mg Take 1 [facility] 1 mg tablet 7-13 tablet by ity of 00:00: mouth in [place] [address] the Medical morning [place] and 1 tablet at noon and 1 tablet in the evening. clonazePAM 2022-0 Yes [id number] 1mg Take 1 [facility] 1 mg tablet 7-13 tablet by ity of 00:00: mouth in [place] [address] the Medical morning [place] and 1 tablet at noon and 1 tablet in the evening. clonazePAM 2022-0 Yes [id number] 1mg Take 1 [facility] 1 mg tablet 7-13 tablet by ity of 00:00: mouth in [place] [address] the Medical morning Branch and 1 tablet at noon and 1 tablet in the evening. clonazePAM 2022-0 Yes [id number] 1mg Take 1 [facility] 1 mg tablet 7-13 tablet by ity of 00:00: mouth in [place] [address] the Medical morning [place] and 1 tablet at noon and 1 tablet in the evening. clonazePAM 2022-0 Yes [id number] 1mg Take 1 [facility] 1 mg tablet 7-13 tablet by ity of 00:00: mouth in [address] Medical morning [place] and 1 tablet at noon and 1 tablet in the evening. clonazePAM 2022-0 Yes [id number] 1mg Take 1 [facility] 1 mg tablet 7-13 tablet by ity of 00:00: mouth in [place] 00 the Medical morning Branch and 1 tablet at noon and 1 tablet in the evening. clonazePAM 2022-0 Yes [id number] 1mg Take 1 [facility] 1 mg tablet 7-13 tablet by ity of 00:00: mouth in [place] 00 the Medical morning Branch and 1 tablet at noon and 1 tablet in the evening. clonazePAM 2022-0 Yes [id number] 1mg Take 1 [facility] 1 mg tablet 7-13 tablet by ity of 00:00: mouth in [place] 00 the Medical morning Branch and 1 tablet at noon and 1 tablet in the evening. clonazePAM 2022-0 Yes [id number] 1mg Take 1 [facility] 1 mg tablet 7-13 tablet by ity of 00:00: mouth in [place] [address] the Medical morning Branch and 1 tablet at noon and 1 tablet in the evening. clonazePAM 2022-0 Yes [id number] 1mg Take 1 [facility] 1 mg tablet 7-13 tablet by ity of 00:00: mouth in [place] [address] the Medical morning Branch and 1 tablet at noon and 1 tablet in the evening. clonazePAM 2022-0 Yes [id number] 1mg Take 1 [facility] 1 mg tablet 7-13 tablet by ity of 00:00: mouth in [place] [address] the Medical morning Branch and 1 tablet at noon and 1 tablet in the evening. clonazePAM 2022-0 2022- No [id number] 1mg Take 1 [facility] 1 mg tablet 7-13 -01 tablet by it y of 00:00: 00:00 mouth in [place] 00 :00 the Medical morning Branch and 1 tablet at noon and 1 tablet in the evening. clonazePAM 2022-0 2022- No [id number] 1mg Take 1 [facility] 1 mg tablet 7-13 11-01 tablet by it y of 00:00: 00:00 mouth in [place] 00 :00 the Medical morning [place] and 1 tablet at noon and 1 tablet in the evening. ZONISAMIDE 2022-0 Yes [id number] TAKE 1 [facility] 100 mg 7-12 CAPSULE BY ity of capsule 00:00: MOUTH [place] 00 TWICE A Medical DAY Branch ZONISAMIDE 2022-0 Yes [id number] TAKE 1 [facility] 100 mg 7-12 CAPSULE BY ity of capsule 00:00: MOUTH [place] 00 TWICE A Medical DAY Branch ZONISAMIDE 2-0 Yes [id number] TAKE 1 [facility] 100 mg 7-12 CAPSULE BY ity of capsule 00:00: MOUTH TWICE A Medical DAY Branch ZONISAMIDE 2021-0 Yes [id number] TAKE 1 [facility] 100 mg 7-12 CAPSULE BY ity of capsule 00:00: MOUTH TWICE A Medical DAY Branch ZONISAMIDE 2021-0 Yes [id number] TAKE 1 [facility] 100 mg 7-12 CAPSULE BY ity of capsule 00:00: MOUTH TWICE A Medical DAY Branch ZONISAMIDE 2021-0 Yes [id number] TAKE 1 [facility] 100 mg 7-12 CAPSULE BY ity of capsule 00:00: MOUTH TWICE A Medical DAY Branch ZONISAMIDE 2021-0 Yes [id number] TAKE 1 [facility] 100 mg 7-12 CAPSULE BY ity of capsule 00:00: MOUTH TWICE A Medical DAY Branch ZONISAMIDE 2021-0 Yes [id number] TAKE 1 [facility] 100 mg 7-12 CAPSULE BY ity of capsule 00:00: MOUTH TWICE A Medical DAY Branch ZONISAMIDE 2021-0 Yes [id number] TAKE 1 [facility] 100 mg 7-12 CAPSULE BY ity of capsule 00:00: MOUTH TWICE A Medical DAY Branch ZONISAMIDE 2021-0 Yes [id number] TAKE 1 [facility] 100 mg 7-12 CAPSULE BY ity of capsule 00:00: MOUTH TWICE A Medical DAY Branch ZONISAMIDE 2021-0 Yes [id number] TAKE 1 [facility] 100 mg 7-12 CAPSULE BY ity of capsule 00:00: MOUTH TWICE A Medical DAY Branch ZONISAMIDE 2021-0 Yes [id number] TAKE 1 [facility] 100 mg 7-12 CAPSULE BY ity of capsule 00:00: MOUTH TWICE A Medical DAY Branch ZONISAMIDE 2021-0 Yes [id number] TAKE 1 [facility] 100 mg 7-12 CAPSULE BY ity of capsule 00:00: MOUTH TWICE A Medical DAY Branch ZONISAMIDE 2021-0 Yes [id number] TAKE 1 [facility] 100 mg 7-12 CAPSULE BY ity of capsule 00:00: MOUTH TWICE A Medical DAY Branch ZONISAMIDE 2021-0 Yes [id number] TAKE 1 [facility] 100 mg 7-12 CAPSULE BY ity of capsule 00:00: MOUTH [place] TWICE A Medical DAY Branch ZONISAMIDE 2021-0 Yes [id number] TAKE 1 [facility] 100 mg 7-12 CAPSULE BY ity of capsule 00:00: MOUTH TWICE A Medical DAY Branch ZONISAMIDE 2021-0 Yes [id number] TAKE 1 [facility] 100 mg 7-12 CAPSULE BY ity of capsule 00:00: MOUTH TWICE A Medical DAY Branch ZONISAMIDE 2021-0 Yes [id number] TAKE 1 [facility] 100 mg 7-12 CAPSULE BY ity of capsule 00:00: MOUTH TWICE A Medical DAY Branch ZONISAMIDE 2021-0 Yes [id number] TAKE 1 [facility] 100 mg 7-12 CAPSULE BY ity of capsule 00:00: MOUTH TWICE A Medical DAY Branch ZONISAMIDE 2021-0 Yes [id number] TAKE 1 [facility] 100 mg 7-12 CAPSULE BY ity of capsule 00:00: MOUTH TWICE A Medical DAY Branch ZONISAMIDE 2021-0 Yes [id number] TAKE 1 [facility] 100 mg 7-12 CAPSULE BY ity of capsule 00:00: MOUTH TWICE A Medical DAY Branch ZONISAMIDE 2021-0 Yes [id number] TAKE 1 [facility] 100 mg 7-12 CAPSULE BY ity of capsule 00:00: MOUTH TWICE A Medical DAY Branch ZONISAMIDE 2021-0 Yes [id number] TAKE 1 [facility] 100 mg 7-12 CAPSULE BY ity of capsule 00:00: MOUTH TWICE A Medical DAY Branch ZONISAMIDE 2021-0 Yes [id number] TAKE 1 [facility] 100 mg 7-12 CAPSULE BY ity of capsule 00:00: MOUTH TWICE A Medical DAY Branch ZONISAMIDE 2021-0 Yes [id number] TAKE 1 [facility] 100 mg 7-12 CAPSULE BY ity of capsule 00:00: MOUTH TWICE A Medical DAY Branch ZONISAMIDE 2021-0 Yes [id number] TAKE 1 [facility] 100 mg 7-12 CAPSULE BY ity of capsule 00:00: MOUTH TWICE A Medical DAY Branch ZONISAMIDE 2021-0 Yes [id number] TAKE 1 [facility] 100 mg 7-12 CAPSULE BY ity of capsule 00:00: MOUTH TWICE A Medical DAY Branch ZONISAMIDE 2021-0 Yes [id number] TAKE 1 [facility] 100 mg 7-12 CAPSULE BY ity of capsule 00:00: MOUTH [place] 00 TWICE A Medical DAY Branch ZONISAMIDE 2021-0 Yes [id number] TAKE 1 [facility] 100 mg 7-12 CAPSULE BY ity of capsule 00:00: MOUTH [place] 00 TWICE A Medical DAY Branch ZONISAMIDE 2021-0 Yes [id number] TAKE 1 [facility] 100 mg 7-12 CAPSULE BY ity of capsule 00:00: MOUTH [place] 00 TWICE A Medical DAY Branch ZONISAMIDE 2021-0 Yes [id number] TAKE 1 [facility] 100 mg 7-12 CAPSULE BY ity of capsule 00:00: MOUTH [place] 00 TWICE A Medical DAY [place] ZONISAMIDE 2021-0 2021- No [id number] TAKE 1 [facility] 100 mg 7-12 12-27 CAPSULE BY ity of capsule 00:00: 00:00 MOUTH [place] 00 :00 TWICE A Medical DAY [place] SYNTHROID 0 Yes [id number] TAKE 1 U nivers 150 mcg 7-08 TABLET BY ity of tablet 00:00: MOUTH [place] 00 EVERY DAY Medical IN THE [place] MORNING SYNTHROID 0 Yes [id number] TAKE 1 U nivers 150 mcg 7-08 TABLET BY ity of tablet 00:00: MOUTH [place] 00 EVERY DAY Medical IN THE [place] MORNING SYNTHROID 0 Yes [id number] TAKE 1 U nivers 150 mcg 7-08 TABLET BY ity of tablet 00:00: MOUTH [place] 00 EVERY DAY Medical IN THE [facility] SYNTHROID 0 Yes [id number] TAKE 1 U nivers 150 mcg 7-08 TABLET BY ity of tablet 00:00: MOUTH [place] 00 EVERY DAY Medical IN THE [place] MORNING SYNTHROID 2021-0 Yes [id number] TAKE 1 U nivers 150 mcg 7-08 TABLET BY ity of tablet 00:00: MOUTH [place] 00 EVERY DAY Medical IN THE [place] MORNING SYNTHROID 2021-0 Yes [id number] TAKE 1 U nivers 150 mcg 7-08 TABLET BY ity of tablet 00:00: MOUTH [place] 00 EVERY DAY Medical IN THE [place] MORNING SYNTHROID 2021-0 Yes [id number] TAKE 1 U nivers 150 mcg 7-08 TABLET BY ity of tablet 00:00: MOUTH [place] 00 EVERY DAY Medical IN THE [place] MORNING SYNTHROID 2021-0 Yes [id number] TAKE 1 U nivers 150 mcg 7-08 TABLET BY ity of tablet 00:00: MOUTH [place] 00 EVERY DAY Medical IN THE [facility] SYNTHROID Yes [id number] TAKE 1 U nivers 150 mcg 7-08 TABLET BY ity of tablet 00:00: MOUTH [place] 00 EVERY DAY Medical IN THE [facility] SYNTHROID Yes [id number] TAKE 1 U nivers 150 mcg 7-08 TABLET BY ity of tablet 00:00: MOUTH [place] 00 EVERY DAY Medical IN THE [facility] SYNTHROID Yes [id number] TAKE 1 U nivers 150 mcg 7-08 TABLET BY ity of tablet 00:00: MOUTH [place] 00 EVERY DAY Medical IN THE [facility] SYNTHROID Yes [id number] TAKE 1 U nivers 150 mcg 7-08 TABLET BY ity of tablet 00:00: MOUTH [place] 00 EVERY DAY Medical IN THE [facility] SYNTHROID Yes [id number] TAKE 1 U nivers 150 mcg 7-08 TABLET BY ity of tablet 00:00: MOUTH [place] 00 EVERY DAY Medical IN THE [facility] SYNTHROID Yes [id number] TAKE 1 U nivers 150 mcg 7-08 TABLET BY ity of tablet 00:00: MOUTH [place] 00 EVERY DAY Medical IN THE [facility] SYNTHROID Yes [id number] TAKE 1 U nivers 150 mcg 7-08 TABLET BY ity of tablet 00:00: MOUTH [place] 00 EVERY DAY Medical IN THE [facility] SYNTHROID Yes [id number] TAKE 1 U nivers 150 mcg 7-08 TABLET BY ity of tablet 00:00: MOUTH [place] 00 EVERY DAY Medical IN THE [facility] SYNTHROID Yes [id number] TAKE 1 U nivers 150 mcg 7-08 TABLET BY ity of tablet 00:00: MOUTH [place] 00 EVERY DAY Medical IN THE [facility] SYNTHROID Yes [id number] TAKE 1 U nivers 150 mcg 7-08 TABLET BY ity of tablet 00:00: MOUTH [place] 00 EVERY DAY Medical IN THE [facility] SYNTHROID Yes [id number] TAKE 1 U nivers 150 mcg 7-08 TABLET BY ity of tablet 00:00: MOUTH [place] 00 EVERY DAY Medical IN THE [facility] SYNTHROID Yes [id number] TAKE 1 U nivers 150 mcg 7-08 TABLET BY ity of tablet 00:00: MOUTH [place] 00 EVERY DAY Medical IN THE [facility] SYNTHROID Yes [id number] TAKE 1 U nivers 150 mcg 7-08 TABLET BY ity of tablet 00:00: MOUTH [place] 00 EVERY DAY Medical IN THE [facility] SYNTHROID Yes [id number] TAKE 1 U nivers 150 mcg 7-08 TABLET BY ity of tablet 00:00: MOUTH [place] 00 EVERY DAY Medical IN THE [facility] SYNTHROID Yes [id number] TAKE 1 U nivers 150 mcg 7-08 TABLET BY ity of tablet 00:00: MOUTH [place] 00 EVERY DAY Medical IN THE [facility] SYNTHROID Yes [id number] TAKE 1 U nivers 150 mcg 7-08 TABLET BY ity of tablet 00:00: MOUTH [place] 00 EVERY DAY Medical IN THE [facility] SYNTHROID Yes [id number] TAKE 1 U nivers 150 mcg 7-08 TABLET BY ity of tablet 00:00: MOUTH [place] 00 EVERY DAY Medical IN THE [facility] SYNTHROID Yes [id number] TAKE 1 U nivers 150 mcg 7-08 TABLET BY ity of tablet 00:00: MOUTH [place] 00 EVERY DAY Medical IN THE [facility] SYNTHROID Yes [id number] TAKE 1 U nivers 150 mcg 7-08 TABLET BY ity of tablet 00:00: MOUTH [place] 00 EVERY DAY Medical IN THE [facility] SYNTHROID Yes [id number] TAKE 1 U nivers 150 mcg 7-08 TABLET BY ity of tablet 00:00: MOUTH [place] 00 EVERY DAY Medical IN THE [facility] SYNTHROID Yes [id number] TAKE 1 U nivers 150 mcg 7-08 TABLET BY ity of tablet 00:00: MOUTH [place] 00 EVERY DAY Medical IN THE [facility] SYNTHROID Yes [id number] TAKE 1 U nivers 150 mcg 7-08 TABLET BY ity of tablet 00:00: MOUTH [place] 00 EVERY DAY Medical IN THE [facility] SYNTHROID 0 Yes [id number] TAKE 1 U nivers 150 mcg 7-08 TABLET BY ity of tablet 00:00: MOUTH [place] 00 EVERY DAY Medical IN THE [facility] SYNTHROID Yes [id number] TAKE 1 U nivers 150 mcg 7-08 TABLET BY ity of tablet 00:00: MOUTH [place] 00 EVERY DAY Medical IN THE Branch MORNING SYNTHROID 2021-0 3- No [id number] TAKE 1 [facility] 150 mcg 703-30 TABLET BY ity of tablet 00:00: 00:00 MOUTH [place] 00 :00 EVERY DAY Medical IN THE Branch MORNING SERTRALINE 2021-0 Yes [id number] TAKE 1 [facility] 100 mg 6-17 TABLET BY ity of tablet 00:00: MOUTH [place] 00 EVERY DAY Medical Branch SERTRALINE 2021-0 Yes [id number] TAKE 1 [facility] 100 mg 6-17 TABLET BY ity of tablet 00:00: MOUTH [place] 00 EVERY DAY Medical Branch SERTRALINE 2021-0 Yes [id number] TAKE 1 [facility] 100 mg 6-17 TABLET BY ity of tablet 00:00: MOUTH [place] 00 EVERY DAY Medical Branch SERTRALINE 2021-0 Yes [id number] TAKE 1 [facility] 100 mg 6-17 TABLET BY ity of tablet 00:00: MOUTH [place] 00 EVERY DAY Medical Branch SERTRALINE 2021-0 Yes [id number] TAKE 1 [facility] 100 mg 6-17 TABLET BY ity of tablet 00:00: MOUTH [place] 00 EVERY DAY Medical Branch SERTRALINE 2021-0 Yes [id number] TAKE 1 [facility] 100 mg 6-17 TABLET BY ity of tablet 00:00: MOUTH [place] 00 EVERY DAY Medical Branch SERTRALINE 2021-0 Yes [id number] TAKE 1 [facility] 100 mg 6-17 TABLET BY ity of tablet 00:00: MOUTH [place] 00 EVERY DAY Medical Branch SERTRALINE 2021-0 Yes [id number] TAKE 1 [facility] 100 mg 6-17 TABLET BY ity of tablet 00:00: MOUTH [place] 00 EVERY DAY Medical Branch SERTRALINE 2021-0 Yes [id number] TAKE 1 [facility] 100 mg 6-17 TABLET BY ity of tablet 00:00: MOUTH [place] 00 EVERY DAY Medical Branch SERTRALINE 2021-0 Yes [id number] TAKE 1 [facility] 100 mg 6-17 TABLET BY ity of tablet 00:00: MOUTH [place] 00 EVERY DAY Medical Branch SERTRALINE 2021-0 Yes [id number] TAKE 1 [facility] 100 mg 6-17 TABLET BY ity of tablet 00:00: MOUTH [place] 00 EVERY DAY Medical Branch SERTRALINE 2021-0 Yes [id number] TAKE 1 [facility] 100 mg 6-17 TABLET BY ity of tablet 00:00: MOUTH [place] 00 EVERY DAY Medical Branch SERTRALINE 2021-0 Yes [id number] TAKE 1 [facility] 100 mg 6-17 TABLET BY ity of tablet 00:00: MOUTH [place] 00 EVERY DAY Medical Branch SERTRALINE 2021-0 Yes [id number] TAKE 1 [facility] 100 mg 6-17 TABLET BY ity of tablet 00:00: MOUTH [place] 00 EVERY DAY Medical Branch SERTRALINE 2021-0 Yes [id number] TAKE 1 [facility] 100 mg 6-17 TABLET BY ity of tablet 00:00: MOUTH [place] 00 EVERY DAY Medical Branch SERTRALINE 2021-0 Yes [id number] TAKE 1 [facility] 100 mg 6-17 TABLET BY ity of tablet 00:00: MOUTH [place] 00 EVERY DAY Medical Branch SERTRALINE 2021-0 Yes [id number] TAKE 1 [facility] 100 mg 6-17 TABLET BY ity of tablet 00:00: MOUTH [place] 00 EVERY DAY Medical Branch SERTRALINE 2021-0 Yes [id number] TAKE 1 [facility] 100 mg 6-17 TABLET BY ity of tablet 00:00: [facility] 00 EVERY DAY Medical Branch SERTRALINE 2021-0 Yes [id number] TAKE 1 [facility] 100 mg 6-17 TABLET BY ity of tablet 00:00: MOUTH [place] 00 EVERY DAY Medical Branch SERTRALINE 2021-0 Yes [id number] TAKE 1 [facility] 100 mg 6-17 TABLET BY ity of tablet 00:00: MOUTH [place] 00 EVERY DAY Medical Branch SERTRALINE 2021-0 Yes [id number] TAKE 1 [facility] 100 mg 6-17 TABLET BY ity of tablet 00:00: [facility] 00 EVERY DAY Medical Branch SERTRALINE 2021-0 Yes [id number] TAKE 1 [facility] 100 mg 6-17 TABLET BY ity of tablet 00:00: [facility] 00 EVERY DAY Medical Branch SERTRALINE 2021-0 2022- No [id number] TAKE 1 [facility] 100 mg 6-17 12-13 TABLET BY ity of tablet 00:00: 00:00 MOUTH [place] 00 :00 EVERY DAY Medical Branch acetaminoph 2021-0 Yes Take by Uni vers en (TYLENOL 2-10 mouth. ity of ORAL) 15:18: [place] [address] Medical Branch acetaminoph 2021-0 Yes Take by Uni vers en (TYLENOL 2-10 mouth. ity of ORAL) 15:18: [place] [address] Medical Branch acetaminoph 2022-0 Yes Take by Uni vers en (TYLENOL 2-10 mouth. ity of ORAL) 15:18: [place] [address] Medical Branch acetaminoph Yes Take by Uni vers en (TYLENOL 2-10 mouth. ity of ORAL) 15:18: [address] Branch acetaminoph Yes Take by Uni vers en (TYLENOL 2-10 mouth. ity of ORAL) 15:18: [address] Branch acetaminoph Yes Take by Uni vers en (TYLENOL 2-10 mouth. ity of ORAL) 15:18: [address] Branch acetaminoph Yes Take by Uni vers en (TYLENOL 2-10 mouth. ity of ORAL) 15:18: [place] [address] Medical Branch acetaminoph Yes Take by Uni vers en (TYLENOL 2-10 mouth. ity of ORAL) 15:18: [address] Branch acetaminoph Yes Take by Uni vers en (TYLENOL 2-10 mouth. ity of ORAL) 15:18: [address] Branch acetaminoph Yes Take by Uni vers en (TYLENOL 2-10 mouth. ity of ORAL) 15:18: [address] Branch acetaminoph Yes Take by Uni vers en (TYLENOL 2-10 mouth. ity of ORAL) 15:18: [address] Branch acetaminoph Yes Take by Uni vers en (TYLENOL 2-10 mouth. ity of ORAL) 15:18: [address] Branch acetaminoph Yes Take by Uni vers en (TYLENOL 2-10 mouth. ity of ORAL) 15:18: [address] Branch acetaminoph Yes Take by Uni vers en (TYLENOL 2-10 mouth. ity of ORAL) 15:18: [address] Branch acetaminoph Yes Take by Uni vers en (TYLENOL 2-10 mouth. ity of ORAL) 15:18: [address] Branch acetaminoph Yes Take by Uni vers en (TYLENOL 2-10 mouth. ity of ORAL) 15:18: [address] Branch acetaminoph Yes Take by Uni vers en (TYLENOL 2-10 mouth. ity of ORAL) 15:18: [address] Branch acetaminoph 0 Yes Take by Uni vers en (TYLENOL 2-10 mouth. ity of ORAL) 15:18: [address] acetaminoph 0 Yes Take by Uni vers en (TYLENOL 2-10 mouth. ity of ORAL) 15:18: [address] acetaminoph Yes Take by Uni vers en (TYLENOL 2-10 mouth. ity of ORAL) 15:18: [address] Branch acetaminoph Yes Take by Uni vers en (TYLENOL 2-10 mouth. ity of ORAL) 15:18: [address] acetaminoph Yes Take by [facility] vers en (TYLENOL 2-10 mouth. ity of ORAL) 15:18: [address] acetaminoph Yes Take by [facility] vers en (TYLENOL 2-10 mouth. ity of ORAL) 15:18: [address] acetaminoph Yes Take by [facility] vers en (TYLENOL 2-10 mouth. ity of ORAL) 15:18: [address] acetaminoph Yes Take by Uni vers en (TYLENOL 2-10 mouth. ity of ORAL) 15:18: [address] acetaminoph Yes Take by [facility] vers en (TYLENOL 2-10 mouth. ity of ORAL) 15:18: [address] acetaminoph Yes Take by [facility] vers en (TYLENOL 2-10 mouth. ity of ORAL) 15:18: [address] acetaminoph Yes Take by Uni vers en (TYLENOL 2-10 mouth. ity of ORAL) 15:18: [address] acetaminoph Yes Take by Uni vers en (TYLENOL 2-10 mouth. ity of ORAL) 15:18: [address] acetaminoph Yes Take by Uni vers en (TYLENOL 2-10 mouth. ity of ORAL) 15:18: [address] acetaminoph Yes Take by Uni vers en (TYLENOL 2-10 mouth. ity of ORAL) 15:18: [address] acetaminoph Yes Take by Uni vers en (TYLENOL 2-10 mouth. ity of ORAL) 15:18: [address] Branch acetaminoph 0 Yes Take by Uni vers en (TYLENOL 2-10 mouth. ity of ORAL) 15:18: [address] acetaminoph 0 Yes Take by Uni vers en (TYLENOL 2-10 mouth. ity of ORAL) 15:18: [address] acetaminoph 0 Yes Take by Uni vers en (TYLENOL 2-10 mouth. ity of ORAL) 15:18: [address] Branch acetaminoph 0 Yes Take by Uni vers en (TYLENOL 2-10 mouth. ity of ORAL) 15:18: [address] acetaminoph 0 Yes Take by Uni vers en (TYLENOL 2-10 mouth. ity of ORAL) 15:18: [address] acetaminoph Yes Take by Uni vers en (TYLENOL 2-10 mouth. ity of ORAL) 15:18: [address] acetaminoph Yes Take by Uni vers en (TYLENOL 2-10 mouth. ity of ORAL) 15:18: [address] acetaminoph Yes Take by Uni vers en (TYLENOL 2-10 mouth. ity of ORAL) 15:18: [address] acetaminoph Yes Take by Uni vers en (TYLENOL 2-10 mouth. ity of ORAL) 15:18: [address] acetaminoph Yes Take by Uni vers en (TYLENOL 2-10 mouth. ity of ORAL) 15:18: [address] acetaminoph Yes Take by Uni vers en (TYLENOL 2-10 mouth. ity of ORAL) 15:18: [address] acetaminoph Yes Take by Uni vers en (TYLENOL 2-10 mouth. ity of ORAL) 15:18: [address] acetaminoph 0 Yes Take by Uni vers en (TYLENOL 2-10 mouth. ity of ORAL) 15:18: [address] acetaminoph Yes Take by Uni vers en (TYLENOL 2-10 mouth. ity of ORAL) 15:18: [address] acetaminoph 0 Yes Take by Uni vers en (TYLENOL 2-10 mouth. ity of ORAL) 15:18: [address] acetaminoph 0 Yes Take by Uni vers en (TYLENOL 2-10 mouth. ity of ORAL) 15:18: [address] acetaminoph 0 Yes Take by Uni vers en (TYLENOL 2-10 mouth. ity of ORAL) 15:18: [address] acetaminoph 0 Yes Take by Uni vers en (TYLENOL 2-10 mouth. ity of ORAL) 15:18: [address] acetaminoph 0 Yes Take by Uni vers en (TYLENOL 2-10 mouth. ity of ORAL) 15:18: [address] acetaminoph 0 Yes Take by Uni vers en (TYLENOL 2-10 mouth. ity of ORAL) 15:18: [address] acetaminoph Yes Take by Uni vers en (TYLENOL 2-10 mouth. ity of ORAL) 15:18: [address] acetaminoph Yes Take by Uni vers en (TYLENOL 2-10 mouth. ity of ORAL) 15:18: [address] acetaminoph Yes Take by Uni vers en (TYLENOL 2-10 mouth. ity of ORAL) 15:18: [address] acetaminoph Yes Take by Uni vers en (TYLENOL 2-10 mouth. ity of ORAL) 15:18: [address] acetaminoph Yes Take by Uni vers en (TYLENOL 2-10 mouth. ity of ORAL) 15:18: [address] acetaminoph Yes Take by Uni vers en (TYLENOL 2-10 mouth. ity of ORAL) 15:18: [address] acetaminoph Yes Take by Uni vers en (TYLENOL 2-10 mouth. ity of ORAL) 15:18: [address] acetaminoph 0 Yes Take by Uni vers en (TYLENOL 2-10 mouth. ity of ORAL) 15:18: [address] acetaminoph 2021-0 Yes Take by Uni vers en (TYLENOL 2-10 mouth. ity of ORAL) 15:18: [address] acetaminoph 0 Yes Take by Uni vers en (TYLENOL 2-10 mouth. ity of ORAL) 15:18: [address] acetaminoph 0 Yes Take by Uni vers en (TYLENOL 2-10 mouth. ity of ORAL) 15:18: [address] acetaminoph 0 Yes Take by Uni vers en (TYLENOL 2-10 mouth. ity of ORAL) 15:18: [address] acetaminoph Yes Take by Uni vers en (TYLENOL 2-10 mouth. ity of ORAL) 15:18: [address] Branch acetaminoph Yes Take by Uni vers en (TYLENOL 2-10 mouth. ity of ORAL) 15:18: [address] acetaminoph Yes Take by Uni vers en (TYLENOL 2-10 mouth. ity of ORAL) 15:18: [address] acetaminoph Yes Take by Uni vers en (TYLENOL 2-10 mouth. ity of ORAL) 15:18: [address] acetaminoph Yes Take by Uni vers en (TYLENOL 2-10 mouth. ity of ORAL) 15:18: [address] acetaminoph Yes Take by Uni vers en (TYLENOL 2-10 mouth. ity of ORAL) 15:18: [address] acetaminoph Yes Take by Uni vers en (TYLENOL 2-10 mouth. ity of ORAL) 15:18: [address] acetaminoph Yes Take by Uni vers en (TYLENOL 2-10 mouth. ity of ORAL) 15:18: [address] acetaminoph Yes Take by Uni vers en (TYLENOL 2-10 mouth. ity of ORAL) 15:18: [address] acetaminoph Yes Take by Uni vers en (TYLENOL 2-10 mouth. ity of ORAL) 15:18: [address] acetaminoph Yes Take by Uni vers en (TYLENOL 2-10 mouth. ity of ORAL) 15:18: [address] acetaminoph 0 Yes Take by Uni vers en (TYLENOL 2-10 mouth. ity of ORAL) 15:18: [address] Branch acetaminoph Yes Take by Uni vers en (TYLENOL 2-10 mouth. ity of ORAL) 15:18: [address] Branch acetaminoph Yes Take by Uni vers en (TYLENOL 2-10 mouth. ity of ORAL) 15:18: [address] Branch acetaminoph Yes Take by Uni vers en (TYLENOL 2-10 mouth. ity of ORAL) 15:18: [address] Branch acetaminoph Yes Take by Uni vers en (TYLENOL 2-10 mouth. ity of ORAL) 15:18: [address] Branch acetaminoph Yes Take by Uni vers en (TYLENOL 2-10 mouth. ity of ORAL) 15:18: [address] Branch acetaminoph Yes Take by Uni vers en (TYLENOL 2-10 mouth. ity of ORAL) 15:18: [address] acetaminoph Yes Take by Uni vers en (TYLENOL 2-10 mouth. ity of ORAL) 15:18: [address] acetaminoph Yes Take by Uni vers en (TYLENOL 2-10 mouth. ity of ORAL) 15:18: [address] acetaminoph Yes Take by Uni vers en (TYLENOL 2-10 mouth. ity of ORAL) 15:18: [address] acetaminoph Yes Take by Uni vers en (TYLENOL 2-10 mouth. ity of ORAL) 15:18: [address] Branch acetaminoph Yes Take by Uni vers en (TYLENOL 2-10 mouth. ity of ORAL) 15:18: [address] Branch acetaminoph Yes Take by Uni vers en (TYLENOL 2-10 mouth. ity of ORAL) 15:18: [address] acetaminoph Yes Take by Uni vers en (TYLENOL 2-10 mouth. ity of ORAL) 15:18: [address] proMETHazin 2020-03 Yes Insert 1 Un [...] within 6 hours of taking reglan. ibuprofen 2020-0 2020- No [id number] 800mg Take 1 [facility] 800 mg 7-30 08-21 tablet by ity of tablet 00:00: 04:59 mouth [place] 00 :00 every 6 Medical (six) Branch hours as needed for Pain (scale 4-6) for up to 21 days. sulfamethox 2019- No [id number] 1{tbl} Take 1 [facility] azole-trime 10-23- tablet by it y of thoprim 00:00: 00:00 mouth 2 [place] (BACTRIM 00 :00 (two) Medical DS) 800-160 times Branch mg per daily for tablet 10 days. SERTraline 2020- No [id number] 50mg Take 1 [facility] 50 mg 09-26 tablet by ity of tablet 00:00: 00:00 mouth [place] 00 :00 daily. Medical Branch dextroamphe 2019- No [id number] 20mg Take 1 [facility] tamine-amph 6-20 10-30 tablet by it y of etamine 00:00: 00:00 mouth 3 [place] (ADDERALL) 00 :00 (three) Medica l 20 mg times Branch tablet daily. dextroamphe 2019- No [id number] Take 1 tab [facility] tamine-amph 5-24 10-30 in morning i ty of etamine 10 00:00: 00:00 x 3 days [place] mg tablet 00 :00 then Medical increase Branch to 1 tab twice daily x 7 days then , if needed take 2 tabs twice daily (otherwise continue 1 tab twice daily), further refills from psychiatry clonazePAM 2019- No [id number] .5mg Take 1 [facility] (KLONOPIN) 08-12 tablet by ity of 0.5 mg 00:00: 00:00 mouth [place] tablet 00 :00 every 8 Medical (eight) Branch hours as needed (Anxiety). PANTOPRAZOL 2019- No [id number] TAKE 1 Univers E 40 mg EC 4-27 08- TABLET BY ity of tablet 00:00: 00:00 MOUTH [place] 00 :00 EVERY DAY Medical Branch [id number] 2020- No 1{dose} Take 1 U nivers carb,glu-FA 06-12 Dose by ity of -dss-dha 00:00: 00:00 mouth [place] (CITRANATAL 00 :00 daily. Medica l ASSURE) 35 Branch mg iron-1 mg -50 mg-300 mg combo pack diazePAM 5 2020-0 2020- No Take one Un [place] mg tablet 3-13 10-30 5mg tablet ity of 00:00: 00:00 30 minutes [place] 00 :00 prior to Medical MRI study, Branch and may repeat one 5mg tablet as needed. levothyroxi 2019- No [id number] 112ug Take 1 Univers ne 3-09 12-15 tablet by ity of (SYNTHROID) 00:00: 00:00 [place] 112 mcg 00 :00 every Medical tablet morning. Branch atorvastati 2019- No [id number] 40mg Take 1 Univers n 40 mg 1-29 10-19 tablet by ity of tablet 00:00: 00:00 mouth at [place] 00 :00 bedtime. Medical Branch traMADol 2019- No [id number] 50mg Take 1 U nivers (ULTRAM) 50 04-24- tablet by it y of mg tablet 00:00: 00:00 mouth [place] 00 :00 every 6 Medical (six) Branch hours as needed for Pain (scale 4-6) or Pain (scale 7-10). zonisamide 2019- No [id number] 100mg Take 1 Univers 100 mg 1-24 08-10 capsule by ity of capsule 00:00: 00:00 mouth 2 [place] 00 :00 (two) Medical times Branch daily. butalbital- 2019- No [id number] 1{tbl} Take 1 Univers acetaminoph 1-10 10-30 tablet by it y of en-caff 00:00: 00:00 mouth [place] 50-325-40 00 :00 every 6 Medical mg tablet (six) Branch hours as needed (Migraine Headaches) . clonazePAM 2019- No [id number] .5mg Take 1 Univers 0.5 mg 1-10 10-30 tablet by ity of tablet 00:00: 00:00 mouth 3 [place] 00 :00 (three) Medical times Branch daily. 2019- No [id number] 1{tbl} Take 1 [facility] vitamin 11-22- tablet by ity of w/FA tablet 00:00: 00:00 [place] 00 :00 daily. Medical Branch Immunizations Ordered Filled Immunization Date Status Comments [facility] e Immunization Name Name Influenza Virus [...] Universit y of [facility], 00:00:00 [place] [facility] Preserv and ABX Branch Free 6 MO-64 YRS Influenza Virus 2022-01-27 Completed Universit y of Vacc[facility], 00:00:00 [place] [facility] Preserv and ABX Branch Free 6 MO-64 YRS Influenza Virus 2022-01-27 Completed Universit y of Vacc[facility], 00:00:00 [place] [facility] d[facility] Preserv and ABX Branch Free 6 MO-64 YRS Influenza Virus 2022-01-27 Completed Universit y of Vacc[facility], 00:00:00 [place] [facility] d[facility] Preserv and ABX Branch Free 6 MO-64 YRS Influenza Virus 2022-01-27 Completed [facility]it y of Vacc[facility], 00:00:00 [place] [facility] d[facility] Preserv and ABX Branch Free 6 MO-64 YRS Influenza Virus 2022-01-27 Completed [facility]it y of Vacc[facility], 00:00:00 [place] [facility] d[facility] Preserv and ABX Branch Free 6 MO-64 YRS Influenza Virus 2022-01-27 Completed Universit y of Vaccine [facility], 00:00:00 [place] [facility] dical Preserv and ABX Branch Free 6 MO-64 YRS Influenza Virus 2022-01-27 Completed Universit y of Vacc[facility], 00:00:00 [place] [facility] d[facility] Preserv and ABX Branch Free 6 MO-64 YRS Influenza Virus 2022-01-27 Completed [facility]it y of Vacc[facility], 00:00:00 [place] [facility] Preserv and ABX Branch Free [...] Universit y of Vacc[facility], 00:00:00 [place] [facility] d[facility] Preserv and ABX Branch Free [...] Universit y of Vaccine [facility], 00:00:00 [place] [facility] Preserv and ABX Branch Free 6 MO-64 YRS Influenza Virus 2022-01-27 Completed Universit y of Vaccine [facility], 00:00:00 [place] [facility] dical Preserv and ABX Branch Free 6 MO-64 YRS Influenza Virus 2022-01-27 Completed Universit y of Vaccine [facility] IM, 00:00:00 [place] [facility] d[facility] Preserv and ABX Branch Free 6 MO-64 YRS Influenza Virus 2022-01-27 Completed Universit y of Vaccine [facility], 00:00:00 [place] [facility] d[facility] Preserv and ABX Branch Free 6 MO-64 YRS Influenza Virus 2021-02-07 Completed [facility]it y of Vacc[facility], 00:00:00 [place] [facility] Preserv and ABX Branch Free 6 MO-64 YRS TDAP 2021-02-07 Completed University of 00:00:00 [facility] Influenza Virus 2021-02-07 Completed Universit y of Vaccine [facility] IM, 00:00:[address] [facility] dical Preserv and ABX Branch Free 6 MO-64 YRS TDAP 2021-02-07 Completed University of 00:00:00 [facility] Influenza Virus 2021-02-07 Completed Universit y of Vaccine [facility] IM, 00:00:[address] [facility] dical Preserv and ABX Branch Free 6 MO-64 YRS TDAP 2021-02-07 Completed University of 00:00:00 [facility] Influenza Virus 2021-02-07 Completed Universit y of Vaccine [facility] IM, 00:00:00 [place] [facility] d[facility] Preserv and ABX Branch Free 6 MO-64 YRS TDAP 2021-02-07 Completed University of 00:00:00 [facility] Influenza Virus 2021-02-07 Completed Universit y of Vaccine [facility] IM, 00:00:[address] [facility] dical Preserv and ABX Branch Free 6 MO-64 YRS TDAP 2021-02-07 Completed University of 00:00:00 [facility] Influenza Virus 2021-02-07 Completed Universit y of Vaccine [facility] IM, 00:00:00 [place] [facility] dical Preserv and ABX Branch Free 6 MO-64 YRS TDAP 2021-02-07 Completed University of 00:00:00 [facility] Influenza Virus 2021-02-07 Completed Universit y of Vaccine [facility] IM, 00:00:00 [place] [facility] dical Preserv and ABX Branch Free 6 MO-64 YRS TDAP 2021-02-07 Completed University of 00:00:00 [facility] Influenza Virus 2021-02-07 Completed Universit y of Vaccine Quad IM, 00:00:00 [place] [facility] dical Preserv and ABX Branch Free 6 MO-64 YRS TDAP 2021-02-07 Completed University of 00:00:00 [facility] Influenza Virus 2021-02-07 Completed Universit y of Vaccine Quad IM, 00:00:00 [place] [facility] dical Preserv and ABX Branch Free 6 MO-64 YRS TDAP 2021-02-07 Completed University of 00:00:00 [facility] Influenza Virus 2021-02-07 Completed Universit y of Vaccine Quad IM, 00:00:00 [place] [facility] d[facility] Preserv and ABX Branch Free 6 MO-64 YRS TDAP 2021-02-07 Completed University of 00:00:00 [facility] Influenza Virus 2021-02-07 Completed Universit y of Vaccine [facility] IM, 00:00:[address] [facility] dical Preserv and ABX Branch Free 6 MO-64 YRS TDAP 2021-02-07 Completed University of 00:00:00 [facility] Influenza Virus 2021-02-07 Completed Universit y of Vaccine Quad IM, 00:00:[address] [facility] dical Preserv and ABX Branch Free 6 MO-64 YRS TDAP 2021-02-07 Completed University of 00:00:00 [facility] Influenza Virus 2021-02-07 Completed Universit y of Vaccine Quad IM, 00:00:[address] [facility] dical Preserv and ABX Branch Free 6 MO-64 YRS TDAP 2021-02-07 Completed University of 00:00:00 [facility] Influenza Virus 2021-02-07 Completed Universit y of Vaccine [facility] IM, 00:00:00 [place] [facility] d[facility] Preserv and ABX Branch Free 6 MO-64 YRS TDAP 2021-02-07 Completed University of 00:00:00 [facility] Influenza Virus 2021-02-07 Completed Universit y of Vaccine [facility] IM, 00:00:00 [place] [facility] dical Preserv and ABX Branch Free 6 MO-64 YRS TDAP 2021-02-07 Completed University of 00:00:00 [facility] Influenza Virus 2021-02-07 Completed Universit y of Vaccine [facility] IM, 00:00:00 [place] [facility] dical Preserv and ABX Branch Free 6 MO-64 YRS TDAP 2021-02-07 Completed University of 00:00:00 [facility] Influenza Virus 2021-02-07 Completed Universit y of Vaccine Quad IM, 00:00:00 [place] [facility] dical Preserv and ABX Branch Free 6 MO-64 YRS TDAP 2021-02-07 Completed University of 00:00:00 [facility] Influenza Virus 2021-02-07 Completed Universit y of Vaccine [facility] IM, 00:00:00 [place] [facility] dical Preserv and ABX Branch Free 6 MO-64 YRS TDAP 2021-02-07 Completed University of 00:00:00 [facility] Influenza Virus 2021-02-07 Completed Universit y of Vaccine Quad IM, 00:00:[address] [facility] dical Preserv and ABX Branch Free 6 MO-64 YRS TDAP 2021-02-07 Completed University of 00:00:00 [facility] Influenza Virus 2021-02-07 Completed Universit y of Vaccine [facility] IM, 00:00:[address] [facility] dical Preserv and ABX Branch Free 6 MO-64 YRS TDAP 2021-02-07 Completed University of 00:00:00 [facility] Influenza Virus 2021-02-07 Completed Universit y of Vaccine [facility] IM, 00:00:[address] [facility] dical Preserv and ABX Branch Free 6 MO-64 YRS TDAP 2021-02-07 Completed University of 00:00:00 [facility] Influenza Virus 2021-02-07 Completed Universit y of Vaccine [facility] IM, 00:00:00 [place] [facility] d[facility] Preserv and ABX Branch Free 6 MO-64 YRS TDAP 2021-02-07 Completed University of 00:00:00 [facility] Influenza Virus 2021-02-07 Completed Universit y of Vaccine [facility] IM, 00:00:00 [place] [facility] dical Preserv and ABX Branch Free 6 MO-64 YRS TDAP 2021-02-07 Completed University of 00:00:00 [facility] Influenza Virus 2021-02-07 Completed Universit y of Vaccine [facility] IM, 00:00:00 [place] [facility] dical Preserv and ABX Branch Free 6 MO-64 YRS TDAP 2021-02-07 Completed University of 00:00:00 [facility] Influenza Virus 2021-02-07 Completed Universit y of Vaccine Quad IM, 00:00:00 [place] [facility] dical Preserv and ABX Branch Free 6 MO-64 YRS TDAP 2021-02-07 Completed University of 00:00:00 [facility] Influenza Virus 2021-02-07 Completed Universit y of Vaccine [facility] IM, 00:00:00 [place] [facility] dical Preserv and ABX Branch Free 6 MO-64 YRS TDAP 2021-02-07 Completed University of 00:00:00 [facility] Influenza Virus 2021-02-07 Completed Universit y of Vaccine Quad IM, 00:00:00 [place] [facility] dical Preserv and ABX Branch Free 6 MO-64 YRS TDAP 2021-02-07 Completed University of 00:00:00 [facility] Influenza Virus 2021-02-07 Completed [facility]it y of Vaccine Quad IM, 00:00:00 [place] [facility] dical Preserv and ABX Branch Free 6 MO-64 YRS TDAP 2021-02-07 Completed University of 00:00:00 [facility] Influenza Virus 2021-02-07 Completed Universit y of Vaccine Quad IM, 00:00:00 [place] [facility] dical Preserv and ABX Branch Free 6 MO-64 YRS TDAP 2021-02-07 Completed University of 00:00:00 [facility] Influenza Virus 2021-02-07 Completed Universit y of Vaccine [facility] IM, 00:00:00 [place] [facility] dical Preserv and ABX Branch Free 6 MO-64 YRS TDAP 2021-02-07 Completed University of 00:00:00 [facility] Influenza Virus 2021-02-07 Completed Universit y of Vaccine [facility] IM, 00:00:00 [place] [facility] dical Preserv and ABX Branch Free 6 MO-64 YRS TDAP 2021-02-07 Completed University of 00:00:00 [facility] Influenza Virus 2021-02-07 Completed [facility]it y of Vaccine Quad IM, 00:00:00 [place] [facility] dical Preserv and ABX Branch Free 6 MO-64 YRS TDAP 2021-02-07 Completed University of 00:00:00 [facility] Influenza Virus 2021-02-07 Completed Universit y of Vaccine Quad IM, 00:00:00 [place] [facility] dical Preserv and ABX Branch Free 6 MO-64 YRS TDAP 2021-02-07 Completed University of 00:00:00 [facility] Influenza Virus 2021-02-07 Completed Universit y of Vaccine Quad IM, 00:00:00 [place] [facility] dical Preserv and ABX Branch Free 6 MO-64 YRS TDAP 2021-02-07 Completed University of 00:00:00 [facility] Influenza Virus 2021-02-07 Completed Universit y of Vaccine Quad IM, 00:00:00 [place] [facility] dical Preserv and ABX Branch Free 6 MO-64 YRS TDAP 2021-02-07 Completed University of 00:00:00 [facility] Influenza Virus 2021-02-07 Completed Universit y of Vaccine Quad IM, 00:00:00 [place] [facility] dical Preserv and ABX Branch Free 6 MO-64 YRS TDAP 2021-02-07 Completed University of 00:00:00 [facility] Influenza Virus 2021-02-07 Completed [facility]it y of Vaccine Quad IM, 00:00:00 [place] [facility] dical Preserv and ABX Branch Free 6 MO-64 YRS TDAP 2021-02-07 Completed University of 00:00:00 [facility] Influenza Virus 2021-02-07 Completed Universit y of Vaccine Quad IM, 00:00:00 [place] [facility] dical Preserv and ABX Branch Free 6 MO-64 YRS TDAP 2021-02-07 Completed University of 00:00:00 [facility] Influenza Virus 2021-02-07 Completed Universit y of Vaccine Quad IM, 00:00:00 [place] [facility] dical Preserv and ABX Branch Free 6 MO-64 YRS TDAP 2021-02-07 Completed University of 00:00:00 [facility] Influenza Virus 2021-02-07 Completed Universit y of Vaccine Quad IM, 00:00:00 [place] [facility] dical Preserv and ABX Branch Free 6 MO-64 YRS TDAP 2021-02-07 Completed University of 00:00:00 [facility] Influenza Virus 2021-02-07 Completed Universit y of Vaccine Quad IM, 00:00:00 [place] [facility] dical Preserv and ABX Branch Free 6 MO-64 YRS TDAP 2021-02-07 Completed University of 00:00:00 [facility] Influenza Virus 2021-02-07 Completed Universit y of Vaccine Quad IM, 00:00:00 [place] [facility] dical Preserv and ABX Branch Free 6 MO-64 YRS TDAP 2021-02-07 Completed University of 00:00:00 [facility] Influenza Virus 2021-02-07 Completed Universit y of Vaccine Quad IM, 00:00:00 [place] [facility] dical Preserv and ABX Branch Free 6 MO-64 YRS TDAP 2021-02-07 Completed University of 00:00:00 [facility] Influenza Virus 2021-02-07 Completed Universit y of Vaccine Quad IM, 00:00:00 [place] [facility] dical Preserv and ABX Branch Free 6 MO-64 YRS TDAP 2021-02-07 Completed University of 00:00:00 [facility] Influenza Virus 2021-02-07 Completed Universit y of Vaccine Quad IM, 00:00:00 [place] [facility] dical Preserv and ABX Branch Free 6 MO-64 YRS TDAP 2021-02-07 Completed University of 00:00:00 [facility] Influenza Virus 2021-02-07 Completed Universit y of Vaccine Quad IM, 00:00:00 [place] [facility] dical Preserv and ABX Branch Free 6 MO-64 YRS TDAP 2021-02-07 Completed University of 00:00:00 [facility] Influenza Virus 2021-02-07 Completed Universit y of Vaccine Quad IM, 00:00:00 [place] [facility] dical Preserv and ABX Branch Free 6 MO-64 YRS TDAP 2021-02-07 Completed University of 00:00:00 [facility] Influenza Virus 2021-02-07 Completed Universit y of Vaccine Quad IM, 00:00:00 [place] [facility] dical Preserv and ABX Branch Free 6 MO-64 YRS TDAP 2021-02-07 Completed University of 00:00:00 [facility] Influenza Virus 2021-02-07 Completed Universit y of Vaccine Quad IM, 00:00:00 [place] [facility] dical Preserv and ABX Branch Free 6 MO-64 YRS TDAP 2021-02-07 Completed University of 00:00:00 [facility] Influenza Virus 2021-02-07 Completed Universit y of Vaccine Quad IM, 00:00:00 [place] [facility] dical Preserv and ABX Branch Free 6 MO-64 YRS TDAP 2021-02-07 Completed University of 00:00:00 [facility] Influenza Virus 2021-02-07 Completed Universit y of Vaccine Quad IM, 00:00:00 [place] [facility] dical Preserv and ABX Branch Free 6 MO-64 YRS TDAP 2021-02-07 Completed University of 00:00:00 [facility] Influenza Virus 2021-02-07 Completed Universit y of Vaccine Quad IM, 00:00:00 [place] [facility] dical Preserv and ABX Branch Free 6 MO-64 YRS TDAP 2021-02-07 Completed University of 00:00:00 [facility] Influenza Virus 2021-02-07 Completed Universit y of Vaccine Quad IM, 00:00:00 [place] [facility] dical Preserv and ABX Branch Free 6 MO-64 YRS TDAP 2021-02-07 Completed University of 00:00:00 [facility] Influenza Virus 2021-02-07 Completed Universit y of Vaccine Quad IM, 00:00:00 [place] [facility] dical Preserv and ABX Branch Free 6 MO-64 YRS TDAP 2021-02-07 Completed University of 00:00:00 [facility] Influenza Virus 2021-02-07 Completed Universit y of Vaccine Quad IM, 00:00:[address] [facility] dical Preserv and ABX Branch Free 6 MO-64 YRS TDAP 2021-02-07 Completed University of 00:00:00 [facility] Influenza Virus 2021-02-07 Completed Universit y of Vaccine Quad IM, 00:00:00 [place] [facility] dical Preserv and ABX Branch Free 6 MO-64 YRS TDAP 2021-02-07 Completed University of 00:00:00 [facility] Influenza Virus 2021-02-07 Completed Universit y of Vaccine Quad IM, 00:00:[address] [facility] dical Preserv and ABX Branch Free 6 MO-64 YRS TDAP 2021-02-07 Completed University of 00:00:00 [facility] Influenza Virus 2021-02-07 Completed Universit y of Vaccine Quad IM, 00:00:00 [place] [facility] dical Preserv and ABX Branch Free 6 MO-64 YRS TDAP 2021-02-07 Completed University of 00:00:00 [facility] Influenza Virus 2021-02-07 Completed Universit y of Vaccine Quad IM, 00:00:00 [place] [facility] dical Preserv and ABX Branch Free 6 MO-64 YRS TDAP 2021-02-07 Completed University of 00:00:00 [facility] Influenza Virus 2021-02-07 Completed [facility]it y of Vaccine Quad IM, 00:00:00 [place] [facility] dical Preserv and ABX Branch Free 6 MO-64 YRS TDAP 2021-02-07 Completed University of 00:00:00 [facility] Influenza Virus 2021-02-07 Completed [facility]it y of Vaccine Quad IM, 00:00:00 [place] [facility] dical Preserv and ABX Branch Free 6 MO-64 YRS TDAP 2021-02-07 Completed University of 00:00:00 [facility] Influenza Virus 2021-02-07 Completed Universit y of Vaccine Quad IM, 00:00:00 [place] [facility] dical Preserv and ABX Branch Free 6 MO-64 YRS TDAP 2021-02-07 Completed University of 00:00:00 [facility] Influenza Virus 2021-02-07 Completed [facility]it y of Vaccine Quad IM, 00:00:00 [place] [facility] dical Preserv and ABX Branch Free 6 MO-64 YRS TDAP 2021-02-07 Completed University of 00:00:00 [facility] Influenza Virus 2021-02-07 Completed [facility]it y of Vaccine Quad IM, 00:00:00 [place] [facility] dical Preserv and ABX Branch Free 6 MO-64 YRS TDAP 2021-02-07 Completed University of 00:00:00 [facility] Influenza Virus 2021-02-07 Completed [facility]it y of Vaccine Quad IM, 00:00:00 [place] [facility] dical Preserv and ABX Branch Free 6 MO-64 YRS TDAP 2021-02-07 Completed University of 00:00:00 [facility] Influenza Virus 2021-02-07 Completed [facility]it y of Vaccine Quad IM, 00:00:00 [place] dical Preserv and ABX Branch Free 6 MO-64 YRS TDAP 2021-02-07 Completed [facility] of 00:00:00 [facility] Influenza Virus 2021-02-07 Completed [facility]it y of Vaccine Quad IM, 00:00:00 [place] [facility] dical Preserv and ABX Branch Free 6 MO-64 YRS TDAP 2021-02-07 Completed University of 00:00:00 [facility] Influenza Virus 2021-02-07 Completed [facility]it y of Vaccine Quad IM, 00:00:00 [place] [facility] dical Preserv and ABX Branch Free 6 MO-64 YRS TDAP 2021-02-07 Completed University of 00:00:00 [facility] Influenza Virus 2021-02-07 Completed [facility] y of Vaccine Quad IM, 00:00:00 [place] dical Preserv and ABX Branch Free 6 MO-64 YRS TDAP 2021-02-07 Completed University of 00:00:00 [facility] Influenza Virus 2021-02-07 Completed [facility]it y of Vaccine Quad IM, 00:00:00 [place] dical Preserv and ABX Branch Free 6 MO-64 YRS TDAP 2021-02-07 Completed University of 00:00:00 [facility] Influenza Virus 2021-02-07 Completed [facility]it y of Vaccine Quad IM, 00:00:00 [place] dical Preserv and ABX Branch Free 6 MO-64 YRS TDAP 2021-02-07 Completed University of 00:00:00 [facility] Influenza Virus 2021-02-07 Completed [facility]it y of Vaccine Quad IM, 00:00:00 [place] [facility] dical Preserv and ABX Branch Free 6 MO-64 YRS TDAP 2021-02-07 Completed University of 00:00:00 [facility] Influenza Virus 2021-02-07 Completed [facility]it y of Vaccine Quad IM, 00:00:00 [place] [facility] dical Preserv and ABX Branch Free 6 MO-64 YRS TDAP 2021-02-07 Completed University of 00:00:00 [facility] Influenza Virus 2021-02-07 Completed [facility]it y of Vaccine Quad IM, 00:00:00 [place] [facility] dical Preserv and ABX Branch Free 6 MO-64 YRS TDAP 2021-02-07 Completed University of 00:00:00 [facility] Influenza Virus 2021-02-07 Completed [facility] y of Vaccine Quad IM, 00:00:00 [place] [facility] dical Preserv and ABX Branch Free 6 MO-64 YRS TDAP 2021-02-07 Completed University of 00:00:00 [facility] Influenza Virus 2021-02-07 Completed [facility]it y of Vaccine Quad IM, 00:00:00 [place] [facility] dical Preserv and ABX Branch Free 6 MO-64 YRS TDAP 2021-02-07 Completed University of 00:00:00 [facility] Influenza Virus 2021-02-07 Completed [facility]it y of Vaccine Quad IM, 00:00:00 [place] [facility] dical Preserv and ABX Branch Free 6 MO-64 YRS TDAP 2021-02-07 Completed University of 00:00:00 [facility] Influenza Virus 2021-02-07 Completed [facility] y of Vaccine Quad IM, 00:00:00 [place] [facility] dical Preserv and ABX Branch Free 6 MO-64 YRS TDAP 2021-02-07 Completed University of 00:00:00 [facility] Influenza Virus 2021-02-07 Completed [facility] y of Vaccine Quad IM, 00:00:00 [place] [facility] dical Preserv and ABX Branch Free 6 MO-64 YRS TDAP 2021-02-07 Completed [facility] of 00:00:00 [facility] Influenza Virus 2021-02-07 Completed [facility] y of Vaccine Quad IM, 00:00:00 [place] [facility] dical Preserv and ABX Branch Free 6 MO-64 YRS TDAP 2021-02-07 Completed [facility] of 00:00:00 [facility] Influenza Virus 2021-02-07 Completed [facility] y of Vaccine [facility] IM, 00:00:00 [place] [facility] dical Preserv and ABX Branch Free 6 MO-64 YRS TDAP 2021-02-07 Completed University of 00:00:00 [facility] Influenza Virus 2021-02-07 Completed [facility] y of Vaccine Quad IM, 00:00:00 [place] [facility] dical Preserv and ABX Branch Free 6 MO-64 YRS TDAP 2021-02-07 Completed [facility] of 00:00:00 [facility] Influenza Virus 2021-02-07 Completed [facility] y of Vaccine [facility] IM, 00:00:00 [place] [facility] dical Preserv and ABX Branch Free 6 MO-64 YRS TDAP 2021-02-07 Completed [facility] of 00:00:00 [facility] Influenza Virus 2021-02-07 Completed [facility] y of Vaccine Quad IM, 00:00:00 [place] [facility] dical Preserv and ABX Branch Free 6 MO-64 YRS TDAP 2021-02-07 Completed [facility] of 00:00:00 [facility] Influenza Virus 2021-02-07 Completed [facility] y of Vaccine Quad IM, 00:00:00 [place] [facility] dical Preserv and ABX Branch Free 6 MO-64 YRS TDAP 2021-02-07 Completed [facility] of 00:00:00 [facility] Influenza Virus 2021-02-07 Completed [facility] y of Vaccine Quad IM, 00:00:00 [place] [facility] dical Preserv and ABX Branch Free 6 MO-64 YRS TDAP 2021-02-07 Completed [facility] of 00:00:00 [facility] Influenza Virus 2021-02-07 Completed [facility] y of Vaccine Quad IM, 00:00:00 [place] [facility] dical Preserv and ABX Branch Free 6 MO-64 YRS TDAP 2021-02-07 Completed [facility] of 00:00:00 [facility] Influenza Virus 2021-02-07 Completed [facility] y of Vaccine Quad IM, 00:00:[address] [facility] dical Preserv and ABX Branch Free 6 MO-64 YRS TDAP 2021-02-07 Completed University of 00:00:00 [facility] Influenza Virus 2021-02-07 Completed Universit y of Vaccine Quad IM, 00:00:[address] [facility] dical Preserv and ABX Branch Free 6 MO-64 YRS TDAP 2021-02-07 Completed [facility] of 00:00:00 [facility] Influenza Virus 2021-02-07 Completed [facility] y of Vaccine Quad IM, 00:00:[address] [facility] dical Preserv and ABX Branch Free 6 MO-64 YRS TDAP 2021-02-07 Completed [facility] of 00:00:00 [facility] Influenza Virus 2021-02-07 Completed [facility] y of Vaccine [facility] IM, 00:00:[address] [facility] dical Preserv and ABX Branch Free 6 MO-64 YRS TDAP 2021-02-07 Completed [facility] of 00:00:00 [facility] Influenza Virus 2021-02-07 Completed [facility] y of Vaccine Quad IM, 00:00:[address] [facility] dical Preserv and ABX Branch Free 6 MO-64 YRS TDAP 2021-02-07 Completed [facility] of 00:00:00 [facility] Influenza Virus 2021-02-07 Completed [facility] y of Vaccine Quad IM, 00:00:[address] [facility] dical Preserv and ABX Branch Free 6 MO-64 YRS TDAP 2021-02-07 Completed [facility] of 00:00:00 [facility] Influenza Virus 2021-02-07 Completed [facility] y of Vaccine Quad IM, 00:00:00 [place] [facility] dical Preserv and ABX Branch Free 6 MO-64 YRS TDAP 2021-02-07 Completed [facility] of 00:00:00 [facility] Influenza Virus 2021-02-07 Completed [facility] y of Vaccine Quad IM, 00:00:00 [place] [facility] dical Preserv and ABX Branch Free 6 MO-64 YRS TDAP 2021-02-07 Completed [facility] 00:00:00 [facility] Influenza Virus 2021-02-07 Completed [facility], 00:00:00 [place] [facility] Preserv and ABX Branch Free 6 MO-64 YRS TDAP 2021-02-07 Completed [facility] 00:00:00 [facility] Influenza Virus 2021-02-07 Completed [facility], 00:00:[address] [facility] dical Preserv and ABX Branch Free 6 MO-64 YRS TDAP 2021-02-07 Completed [facility] 00:00:00 [facility] Influenza Virus 2021-02-07 Completed [facility], 00:00:[address] [facility] dical Preserv and ABX Branch Free 6 MO-64 YRS TDAP 2021-02-07 Completed [facility] 00:00:00 [facility] Influenza Virus 2021-02-07 Completed [facility], 00:00:[address] [facility] dical Preserv and ABX Branch Free 6 MO-64 YRS TDAP 2021-02-07 Completed [facility] 00:00:00 [facility] Influenza Virus 2021-02-07 Completed [facility], 00:00:[address] [facility] dical Preserv and ABX Branch Free 6 MO-64 YRS TDAP 2021-02-07 Completed [facility] 00:00:00 [facility] Influenza Virus 2021-02-07 Completed [facility], 00:00:[address] [facility] dical Preserv and ABX Branch Free 6 MO-64 YRS TDAP 2021-02-07 Completed [facility] 00:00:00 [facility] Influenza Virus 2021-02-07 Completed [facility], 00:00:[address] [facility] dical Preserv and ABX Branch Free 6 MO-64 YRS TDAP 2021-02-07 Completed [facility] 00:00:00 [facility] Influenza Virus 2021-02-07 Completed [facility], 00:00:00 [place] [facility] Preserv and ABX Branch Free 6 MO-64 YRS TDAP 2021-02-07 Completed [facility] 00:00:00 [facility] Influenza Virus 2021-02-07 Completed [facility], 00:00:00 [place] [facility] Preserv and ABX Branch Free 6 MO-64 YRS TDAP 2021-02-07 Completed [facility] 00:00:00 [facility] Influenza Virus 2021-02-07 Completed [facility], 00:00:00 [place] [facility] Preserv and ABX Branch Free 6 MO-64 YRS TDAP 2021-02-07 Completed [facility] 00:00:00 [facility] Influenza Virus 2021-02-07 Completed [facility], 00:00:00 [place] [facility] Preserv and ABX Branch Free 6 MO-64 YRS TDAP 2021-02-07 Completed [facility] 00:00:00 [facility] Influenza Virus 2021-02-07 Completed [facility], 00:00:00 [place] [facility] Preserv and ABX Branch Free 6 MO-64 YRS TDAP 2021-02-07 Completed [facility] 00:00:00 [facility] Influenza Virus 2021-02-07 Completed [facility], 00:00:00 [place] [facility] Preserv and ABX Branch Free 6 MO-64 YRS TDAP 2021-02-07 Completed [facility] 00:00:00 [facility] Influenza Virus 2021-02-07 Completed [facility], 00:00:00 [place] [facility] Preserv and ABX Branch Free 6 MO-64 YRS TDAP 2021-02-07 Completed [facility] 00:00:00 [facility] Influenza Virus 2021-02-07 Completed [facility], 00:00:00 [place] [facility] Preserv and ABX Branch Free 6 MO-64 YRS TDAP 2021-02-07 Completed [facility] 00:00:00 [facility] Influenza Virus 2021-02-07 Completed [facility], 00:00:00 [place] [facility] Preserv and ABX Branch Free 6 MO-64 YRS TDAP 2021-02-07 Completed [facility] 00:00:00 [facility] Influenza Virus 2021-02-07 Completed [facility], 00:00:00 [place] [facility] Preserv and ABX Branch Free 6 MO-64 YRS TDAP 2021-02-07 Completed [facility] 00:00:00 [facility] Influenza Virus 2021-02-07 Completed [facility], 00:00:00 [place] [facility] Preserv and ABX Branch Free 6 MO-64 YRS TDAP 2021-02-07 Completed [facility] 00:00:00 [facility] Influenza Virus 2021-02-07 Completed [facility], 00:00:00 [place] [facility] Preserv and ABX Branch Free 6 MO-64 YRS TDAP 2021-02-07 Completed [facility] 00:00:00 [facility] Influenza Virus 2021-02-07 Completed [facility], 00:00:00 [place] [facility] Preserv and ABX Branch Free 6 MO-64 YRS TDAP 2021-02-07 Completed [facility] 00:00:00 [facility] Influenza Virus 2020-01-25 Completed [facility] .5 mL 00:00:00 [facility] 6+ MO Branch Influenza Virus [...] y of [facility] .5 mL 00:00:00 [facility] 6+ MO Branch Influenza Virus [...] y of [facility] .5 mL 00:00:00 [facility] 6+ MO Branch Influenza Virus [...] y of [facility] .5 mL 00:00:00 [facility] 6+ MO Branch Influenza Virus 2018-12-23 Completed [facility] .5 mL 00:00:00 [place] [facility] 6+ MO Branch Influenza Virus 2018-12-23 Completed [facility] .5 mL 00:00:00 [facility] 6+ MO Branch Influenza Virus 2018-12-23 Completed [facility] .5 mL 00:00:00 [facility] 6+ MO Branch Influenza Virus 2018-12-23 Completed [facility] .5 mL 00:00:00 [facility] 6+ MO Branch Influenza Virus [...] y of [facility] .5 mL 00:00:00 [facility] 6+ MO Branch Influenza Virus 2018-12-23 Completed [facility] .5 mL 00:00:00 [facility] 6+ MO Branch Influenza Virus 2018-12-23 Completed [facility] .5 mL 00:00:00 [facility] 6+ MO Branch Influenza Virus 2018-12-23 Completed [facility] .5 mL 00:00:00 [facility] 6+ MO Branch Influenza Virus 2018-12-23 Completed [facility] .5 mL 00:00:00 [facility] 6+ MO Branch Influenza Virus 2018-12-23 Completed [facility] .5 mL 00:00:00 [facility] 6+ MO Branch Influenza Virus [...] y of [facility] .5 mL 00:00:00 [facility] 6+ MO Branch Influenza Virus 2018-12-23 Completed [facility] .5 mL 00:00:00 [place] [facility] 6+ MO Branch Influenza Virus 2018-12-23 Completed [facility] .5 mL 00:00:00 [facility] 6+ MO Branch Influenza Virus [...] y of [facility] .5 mL 00:00:00 [facility] 6+ MO Branch Influenza Virus 2018-12-23 Completed [facility] .5 mL 00:00:00 [facility] 6+ MO Branch Influenza Virus 2018-12-23 Completed [facility] .5 mL 00:00:00 [facility] 6+ MO Branch Influenza Virus 2018-12-23 Completed [facility] .5 mL 00:00:00 [facility] 6+ MO Branch Influenza Virus 2018-12-23 Completed [facility] .5 mL 00:00:00 [facility] 6+ MO Branch Influenza Virus 2018-12-23 Completed [facility] .5 mL 00:00:00 [facility] 6+ MO Branch Influenza Virus 2018-12-23 Completed [facility] y of [facility] .5 mL 00:00:00 [facility] 6+ MO Branch Influenza Virus 2018-12-23 Completed [facility] .5 mL 00:00:00 [facility] 6+ MO Branch Influenza Virus 2018-12-23 Completed [facility] .5 mL 00:00:00 [facility] 6+ MO Branch Influenza Virus 2018-12-23 Completed [facility] .5 mL 00:00:00 [facility] 6+ MO Branch Influenza Virus 2018-12-23 Completed [facility] .5 mL 00:00:00 [facility] 6+ MO Branch Influenza Virus 2018-12-23 Completed [facility] .5 mL 00:00:00 [facility] 6+ MO Branch Influenza Virus 2018-12-23 [...] y of [facility] .5 mL 00:00:00 [facility] 6+ MO Branch Influenza Virus [...] y of [facility] .5 mL 00:00:00 [facility] 6+ MO Branch Influenza Virus 2018-12-23 [...] y of [facility] .5 mL 00:00:00 [facility] 6+ MO Branch Influenza Virus 2018-12-23 Completed [facility] .5 mL 00:00:00 [place] [facility] 6+ MO Branch Influenza Virus 2018-12-23 Completed [facility] .5 mL 00:00:00 [place] [facility] 6+ MO Branch Influenza Virus 2018-12-23 Completed [facility] .5 mL 00:00:00 [facility] 6+ MO Branch Influenza Virus 2018-12-23 Completed [facility] .5 mL 00:00:00 [facility] 6+ MO Branch Influenza Virus 2018-12-23 Completed [facility] .5 mL 00:00:00 [facility] 6+ MO Branch Influenza Virus 2018-12-23 Completed [facility] .5 mL 00:00:00 [facility] 6+ MO Branch Influenza Virus 2018-12-23 Completed [facility] .5 mL 00:00:00 [facility] 6+ MO Branch Influenza Virus 2018-12-23 Completed [facility] .5 mL 00:00:00 [facility] 6+ MO Branch Influenza Virus 2018-12-23 Completed [facility] .5 mL 00:00:00 [facility] 6+ MO Branch Influenza Virus 2018-12-23 Completed [facility] .5 mL 00:00:00 [place] [facility] 6+ MO Branch Influenza Virus 2018-12-23 Completed [facility] y [facility] .5 mL 00:00:00 [place] [facility] 6+ MO Branch Influenza Virus 2018-12-23 Completed [facility] .5 mL 00:00:00 [facility] 6+ MO Branch Influenza Virus 2018-12-23 Completed [facility] .5 mL 00:00:00 [facility] 6+ MO Branch Influenza Virus 2018-12-23 Completed [facility] .5 mL 00:00:00 [facility] 6+ MO Branch Influenza Virus 2018-12-23 Completed [facility] .5 mL 00:00:00 [facility] 6+ MO Branch Influenza Virus [...] y of [facility] .5 mL 00:00:00 [facility] 6+ MO Branch Influenza Virus 2018-12-23 Completed [facility] y [facility] .5 mL 00:00:00 [place] [facility] 6+ MO Branch Influenza Virus 2018-12-23 Completed [facility] y [facility] .5 mL 00:00:00 [facility] 6+ MO Branch Influenza Virus 2018-12-23 Completed [facility] .5 mL 00:00:00 [facility] 6+ MO Branch Influenza Virus 2018-12-23 Completed [facility] .5 mL 00:00:00 [facility] 6+ MO Branch Influenza Virus 2018-12-23 Completed [facility] .5 mL 00:00:00 [facility] 6+ MO Branch Influenza Virus 2018-12-23 Completed [facility] .5 mL 00:00:00 [facility] 6+ MO Branch Influenza Virus 2018-12-23 Completed [facility] .5 mL 00:00:00 [facility] 6+ MO Branch Influenza Virus 2018-12-23 Completed [facility] .5 mL 00:00:00 [facility] 6+ MO Branch Influenza Virus 2018-12-23 Completed [facility] y [facility] .5 mL 00:00:00 [facility] 6+ MO Branch TDAP (ADACEL) 2018-09-14 Completed [facility] of VACCINE 00:00:00 [facility] TDAP (ADACEL) 2018-09-14 Completed University of VACCINE 00:00:00 [facility] TDAP (ADACEL) 2018-09-14 Completed [facility] of VACCINE 00:00:00 [facility] TDAP (ADACEL) 2018-09-14 Completed [facility] of VACCINE 00:00:00 [facility] TDAP (ADACEL) 2018-09-14 Completed [facility] of VACCINE 00:00:00 [facility] TDAP (ADACEL) 2018-09-14 Completed [facility] of VACCINE 00:00:00 [facility] TDAP (ADACEL) 2018-09-14 Completed [facility] of VACCINE 00:00:00 [facility] TDAP (ADACEL) 2018-09-14 Completed [facility] of VACCINE 00:00:00 [facility] TDAP (ADACEL) 2018-09-14 Completed [facility] of VACCINE 00:00:00 [facility] TDAP (ADACEL) 2018-09-14 Completed [facility] of VACCINE 00:00:00 [facility] TDAP (ADACEL) 2018-09-14 Completed [facility] of VACCINE 00:00:00 [facility] TDAP (ADACEL) 2018-09-14 Completed [facility] of VACCINE 00:00:00 [facility] TDAP (ADACEL) 2018-09-14 Completed [facility] of VACCINE 00:00:00 [facility] TDAP (ADACEL) 2018-09-14 Completed [facility] of VACCINE 00:00:00 [facility] TDAP (ADACEL) 2018-09-14 Completed [facility] of VACCINE 00:00:00 [facility] TDAP (ADACEL) 2018-09-14 Completed [facility] of VACCINE 00:00:00 [facility] TDAP (ADACEL) 2018-09-14 Completed [facility] of VACCINE 00:00:00 [facility] TDAP (ADACEL) 2018-09-14 Completed [facility] of VACCINE 00:00:00 [facility] TDAP (ADACEL) 2018-09-14 Completed [facility] of VACCINE 00:00:00 [facility] TDAP (ADACEL) 2018-09-14 Completed [facility] of VACCINE 00:00:00 [facility] TDAP (ADACEL) 2018-09-14 Completed [facility] of VACCINE 00:00:00 [facility] TDAP (ADACEL) 2018-09-14 Completed [facility] of VACCINE 00:00:00 [facility] TDAP (ADACEL) 2018-09-14 Completed [facility] of VACCINE 00:00:00 [facility] TDAP (ADACEL) 2018-09-14 Completed [facility] of VACCINE 00:00:00 [facility] TDAP (ADACEL) 2018-09-14 Completed [facility] of VACCINE 00:00:00 [facility] TDAP (ADACEL) 2018-09-14 Completed [facility] of VACCINE 00:00:00 [facility] TDAP (ADACEL) 2018-09-14 Completed [facility] of VACCINE 00:00:00 [facility] TDAP (ADACEL) 2018-09-14 Completed [facility] VACCINE 00:00:00 [facility] TDAP (ADACEL) 2018-09-14 Completed [facility] VACCINE 00:00:00 [facility] TDAP (ADACEL) 2018-09-14 Completed [facility] of VACCINE 00:00:00 [facility] TDAP (ADACEL) 2018-09-14 Completed [facility] of VACCINE 00:00:00 [facility] TDAP (ADACEL) 2018-09-14 Completed [facility] of VACCINE 00:00:00 [facility] TDAP (ADACEL) 2018-09-14 Completed [facility] of VACCINE 00:00:00 [facility] TDAP (ADACEL) 2018-09-14 Completed [facility] of VACCINE 00:00:00 [facility] TDAP (ADACEL) 2018-09-14 Completed [facility] of VACCINE 00:00:00 [facility] TDAP (ADACEL) 2018-09-14 Completed [facility] of VACCINE 00:00:00 [facility] TDAP (ADACEL) 2018-09-14 Completed [facility] of VACCINE 00:00:00 [facility] TDAP (ADACEL) 2018-09-14 Completed [facility] of VACCINE 00:00:00 [facility] TDAP (ADACEL) 2018-09-14 Completed [facility] of VACCINE 00:00:00 [facility] TDAP (ADACEL) 2018-09-14 Completed [facility] of VACCINE 00:00:00 [facility] TDAP (ADACEL) 2018-09-14 Completed [facility] of VACCINE 00:00:00 [facility] TDAP (ADACEL) 2018-09-14 Completed [facility] of VACCINE 00:00:00 [facility] TDAP (ADACEL) 2018-09-14 Completed [facility] of VACCINE 00:00:00 [facility] TDAP (ADACEL) 2018-09-14 Completed [facility] of VACCINE 00:00:00 [facility] TDAP (ADACEL) 2018-09-14 Completed [facility] VACCINE 00:00:00 [facility] TDAP (ADACEL) 2018-09-14 Completed [facility] of VACCINE 00:00:00 [facility] TDAP (ADACEL) 2018-09-14 Completed [facility] of VACCINE 00:00:00 [facility] TDAP (ADACEL) 2018-09-14 Completed [facility] of VACCINE 00:00:00 [facility] TDAP (ADACEL) 2018-09-14 Completed [facility] VACCINE 00:00:00 [facility] TDAP (ADACEL) 2018-09-14 Completed [facility] VACCINE 00:00:00 [facility] TDAP (ADACEL) 2018-09-14 Completed [facility] VACCINE 00:00:00 [facility] TDAP (ADACEL) 2018-09-14 Completed [facility] VACCINE 00:00:00 [facility] TDAP (ADACEL) 2018-09-14 Completed [facility] VACCINE 00:00:00 [facility] TDAP (ADACEL) 2018-09-14 Completed [facility] VACCINE 00:00:00 [facility] TDAP (ADACEL) 2018-09-14 Completed [facility] VACCINE 00:00:00 [facility] TDAP (ADACEL) 2018-09-14 Completed [facility] VACCINE 00:00:00 [facility] TDAP (ADACEL) 2018-09-14 Completed [facility] of VACCINE 00:00:00 [facility] TDAP (ADACEL) 2018-09-14 Completed [facility] of VACCINE 00:00:00 [facility] TDAP (ADACEL) 2018-09-14 Completed [facility] of VACCINE 00:00:00 [facility] TDAP (ADACEL) 2018-09-14 Completed [facility] VACCINE 00:00:00 [facility] TDAP (ADACEL) 2018-09-14 Completed [facility] VACCINE 00:00:00 [facility] TDAP (ADACEL) 2018-09-14 Completed [facility] VACCINE 00:00:00 [facility] TDAP (ADACEL) 2018-09-14 Completed [facility] of VACCINE 00:00:00 [facility] TDAP (ADACEL) 2018-09-14 Completed [facility] of VACCINE 00:00:00 [facility] TDAP (ADACEL) 2018-09-14 Completed [facility] of VACCINE 00:00:00 [facility] TDAP (ADACEL) 2018-09-14 Completed [facility] of VACCINE 00:00:00 [facility] TDAP (ADACEL) 2018-09-14 Completed [facility] of VACCINE 00:00:00 [facility] TDAP (ADACEL) 2018-09-14 Completed [facility] of VACCINE 00:00:00 [facility] TDAP (ADACEL) 2018-09-14 Completed [facility] of VACCINE 00:00:00 [facility] TDAP (ADACEL) 2018-09-14 Completed [facility] of VACCINE 00:00:00 [facility] TDAP (ADACEL) 2018-09-14 Completed [facility] of VACCINE 00:00:00 [facility] TDAP (ADACEL) 2018-09-14 Completed [facility] of VACCINE 00:00:00 [facility] TDAP (ADACEL) 2018-09-14 Completed [facility] of VACCINE 00:00:00 [facility] TDAP (ADACEL) 2018-09-14 Completed [facility] of VACCINE 00:00:00 [facility] TDAP (ADACEL) 2018-09-14 Completed [facility] of VACCINE 00:00:00 [facility] TDAP (ADACEL) 2018-09-14 Completed [facility] of VACCINE 00:00:00 [facility] TDAP (ADACEL) 2018-09-14 Completed [facility] of VACCINE 00:00:00 [facility] TDAP (ADACEL) 2018-09-14 Completed [facility] of VACCINE 00:00:00 [facility] TDAP (ADACEL) 2018-09-14 Completed [facility] of VACCINE 00:00:00 [facility] TDAP (ADACEL) 2018-09-14 Completed [facility] of VACCINE 00:00:00 [facility] TDAP (ADACEL) 2018-09-14 Completed [facility] of VACCINE 00:00:00 [facility] TDAP (ADACEL) 2018-09-14 Completed [facility] of VACCINE 00:00:00 [facility] TDAP (ADACEL) 2018-09-14 Completed [facility] of VACCINE 00:00:00 [facility] TDAP (ADACEL) 2018-09-14 Completed [facility] of VACCINE 00:00:00 [facility] TDAP (ADACEL) 2018-09-14 Completed [facility] of VACCINE 00:00:00 [facility] TDAP (ADACEL) 2018-09-14 Completed [facility] of VACCINE 00:00:00 [facility] TDAP (ADACEL) 2018-09-14 Completed [facility] of VACCINE 00:00:00 [facility] TDAP (ADACEL) 2018-09-14 Completed [facility] of VACCINE 00:00:00 [facility] TDAP (ADACEL) 2018-09-14 Completed [facility] of VACCINE 00:00:00 [facility] TDAP (ADACEL) 2018-09-14 Completed [facility] of VACCINE 00:00:00 [facility] TDAP (ADACEL) 2018-09-14 Completed [facility] of VACCINE 00:00:00 [facility] TDAP (ADACEL) 2018-09-14 Completed [facility] of VACCINE 00:00:00 [facility] TDAP (ADACEL) 2018-09-14 Completed [facility] of VACCINE 00:00:00 [facility] TDAP (ADACEL) 2018-09-14 Completed [facility] of VACCINE 00:00:00 [facility] TDAP (ADACEL) 2018-09-14 Completed [facility] of VACCINE 00:00:00 [facility] TDAP (ADACEL) 2018-09-14 Completed [facility] of VACCINE 00:00:00 [facility] TDAP (ADACEL) 2018-09-14 Completed [facility] of VACCINE 00:00:00 [facility] TDAP (ADACEL) 2018-09-14 Completed [facility] of VACCINE 00:00:00 [facility] TDAP (ADACEL) 2018-09-14 Completed [facility] of VACCINE 00:00:00 [facility] TDAP (ADACEL) 2018-09-14 Completed [facility] of VACCINE 00:00:00 [facility] TDAP (ADACEL) 2018-09-14 Completed [facility] of VACCINE 00:00:00 [facility] TDAP (ADACEL) 2018-09-14 Completed [facility] of VACCINE 00:00:00 [facility] TDAP (ADACEL) 2018-09-14 Completed [facility] of VACCINE 00:00:00 [facility] TDAP (ADACEL) 2018-09-14 Completed [facility] of VACCINE 00:00:00 [facility] TDAP (ADACEL) 2018-09-14 Completed [facility] of VACCINE 00:00:00 [facility] TDAP (ADACEL) 2018-09-14 Completed [facility] of VACCINE 00:00:00 [facility] TDAP (ADACEL) 2018-09-14 Completed [facility] of VACCINE 00:00:00 [facility] TDAP (ADACEL) 2018-09-14 Completed [facility] of VACCINE 00:00:00 [facility] TDAP (ADACEL) 2018-09-14 Completed [facility] of VACCINE 00:00:00 [facility] TDAP (ADACEL) 2018-09-14 Completed [facility] of VACCINE 00:00:00 [facility] TDAP (ADACEL) 2018-09-14 Completed [facility] of VACCINE 00:00:00 [facility] TDAP (ADACEL) 2018-09-14 Completed [facility] of VACCINE 00:00:00 [facility] TDAP (ADACEL) 2018-09-14 Completed [facility] of VACCINE 00:00:00 [facility] TDAP (ADACEL) 2018-09-14 Completed [facility] of VACCINE 00:00:00 [facility] TDAP (ADACEL) 2018-09-14 Completed [facility] of VACCINE 00:00:00 [facility] TDAP (ADACEL) 2018-09-14 Completed [facility] of VACCINE 00:00:00 [facility] Vital Signs Vital Name Observation Time Observation Value Comments Source Systolic blood 2022-08-21 16:59:00 122 mm[Hg] Univer sity of pressure [facility] Diastolic blood 2022-08-21 16:59:00 79 mm[Hg] Unive rsity of pressure [facility] Heart rate 2022-08-21 16:59:00 63 /min [facility] Body height 2022-08-21 16:59:00 165.1 cm [facility]i ty of [facility] Oxygen saturation in 2022-08-21 16:59:00 98 /min [facility] of Arterial blood by [place] [facility] Systolic blood 2022-08-08 19:30:00 124 mm[Hg] Univer sity of pressure [facility] Diastolic blood 2022-08-08 19:30:00 80 mm[Hg] Unive rsity of pressure [facility] Heart rate 2022-08-08 19:30:00 50 /min [facility] Body temperature 2022-08-08 19:30:00 36.61 Darleen Univ ersity of [facility] Respiratory rate 2022-08-08 19:30:00 17 /min Univ ersity of [facility] Body height 2022-08-08 19:30:00 165.1 cm [facility] Body weight 2022-08-08 19:30:00 56.427 kg Universi ty [facility] BMI 2022-08-08 19:30:00 20.70 kg/m2 [facility] Oxygen saturation in 2022-08-08 19:30:00 100 /min University of Arterial blood by [employer] gustavo Pulse oximetry Branch Systolic blood 2022-08-04 18:54:00 102 mm[Hg] Univer sity of pressure [facility] Diastolic blood 2022-08-04 18:54:00 70 mm[Hg] Unive rsity of pressure [facility] Heart rate 2022-08-04 18:54:00 76 /min [facility] Body height 2022-08-04 18:54:00 165.1 cm [facility] Body weight 2022-08-04 18:54:00 56.7 kg [facility] BMI 2022-08-04 18:54:00 20.80 kg/m2 Universi ty [facility] Systolic blood 2022-06-09 13:23:00 100 mm[Hg] Univer sity of pressure [facility] Diastolic blood 2022-06-09 13:23:00 77 mm[Hg] Unive rsity of pressure [facility] Heart rate 2022-06-09 13:23:00 73 /min Universi ty of [facility] Body temperature 2022-06-09 13:23:00 36.61 Darleen Univ ersity of [facility] Respiratory rate 2022-06-09 13:23:00 20 /min Univ ersity of [facility] Body height 2022-06-09 13:23:00 165.1 cm Universi ty of [facility] Body weight 2022-06-09 13:23:00 61.009 kg [facility] BMI 2022-06-09 13:23:00 22.38 kg/m2 Universi ty of [facility] Oxygen saturation in 2022-06-09 13:23:00 100 /min University Arterial blood by [facility] Pulse oximetry Branch Systolic blood 2022-04-30 16:02:00 108 mm[Hg] Univer sity of pressure [facility] Diastolic blood 2022-04-30 16:02:00 76 mm[Hg] Unive rsity of pressure [facility] Heart rate 2022-04-30 16:02:00 69 /min [facility] Body temperature 2022-04-30 16:02:00 36.78 Darleen Univ ersity of [facility] Respiratory rate 2022-04-30 16:02:00 18 /min Univ ersity of [facility] Body height 2022-04-30 16:02:00 165.1 cm [facility] Body weight 2022-04-30 16:02:00 54.885 kg Universi ty of [facility] BMI 2022-04-30 16:02:00 20.14 kg/m2 [facility] Systolic blood 2022-03-11 03:49:00 94 mm[Hg] Univer sity of pressure [facility] Diastolic blood 2022-03-11 03:49:00 66 mm[Hg] Unive rsity of [facility] Heart rate 2022-03-11 03:49:00 68 /min Universi [facility] Body temperature 2022-03-11 03:49:00 36.22 Darleen [facility] rate 2022-03-11 03:49:00 16 /min [facility] Oxygen saturation in 2022-03-11 03:49:00 97 /min [facility] blood by [facility] Pulse oximetry Branch Body height 2022-03-10 23:54:00 165.1 cm [facility] Body weight 2022-03-10 23:54:00 56.7 kg [facility] BMI 2022-03-10 23:54:00 20.80 kg/m2 [facility] Systolic blood 2022-01-27 16:15:00 103 mm[Hg] Univer sity of [facility] Diastolic blood 2022-01-27 16:15:00 74 mm[Hg] Unive rsity of [facility] Heart rate 2022-01-27 16:15:00 93 /min [facility] Body weight 2022-01-27 16:15:00 57.607 kg [facility] BMI 2022-01-27 16:15:00 21.13 kg/m2 [facility] Procedures Procedure Date / Time Performing Clinician Source Performed DME/SUPPLY JUSTIFICATION 2022-09-10 05:01:00 Doctor Unassigned, [facility] [place] [facility] EXTERNAL PROVIDER RECORDS 2022-08-25 05:01:00 Doctor Unassigned, [facility] INSURANCE CORRESPONDENCE 2022-08-19 05:01:00 Doctor Unassigned, [facility] [place] [facility] HEPATITIS B SURFACE 2022-06-26 15:45:00 Teo Ingram formerly [facility] HIV 1/2 AG-AB WITH REFLEX 2022-06-26 15:45:00 [facility] ULTRASOUND BREAST 2022-06-26 14:44:24 Nataly [facility] COMPLETE LEFT Medical Branch BI DIAGNOSTIC 2022-06-26 14:00:00 Nataly [facility] TOMOSYNTHESIS LEFT Medical Branc h XR CHEST 1 VW 2022-06-09 14:21:00 Eric Fernandez [facility] CT CERVICAL SPINE WO 2022-06-09 14:18:00 [facility] CONTRAST [facility] INSURANCE CORRESPONDENCE 2022-06-08 05:01:00 Doctor Shah, [facility] Name [facility] CONSENT/REFUSAL FOR 2022-06-03 16:39:37 Doctor Shah [facility] DIAGNOSIS AND TREATMENT [facility]3] DME/SUPPLY JUSTIFICATION 2022-05-04 06:01:00 Doctor Shah [facility] Name [facility] EXTERNAL PROVIDER RECORDS 2022-04-03 06:01:00 Doctor Shah [facility] XR WRIST <3 VW RIGHT 2022-03-11 00:49:27 Darryn Owusu [facility] XR WRIST 3+ VW LEFT 2022-03-11 00:49:27 Darryn Owusu [facility] COVID-19 (ID NOW RAPID 2022-03-10 23:52:00 [facility] POCT TEST 2022-03-10 23:46:00 Darryn Owusu [facility] COMP. METABOLIC PANEL 2022-03-10 23:45:00 [facility] ([id number]) [facility] SALICYLATE 2022-03-10 23:45:00 Singer [facility] ETHANOL 2022-03-10 23:45:00 Singer [facility] CBC WITH DIFF 2022-03-10 23:45:00 Singer [facility] URINALYSIS 2022-03-10 23:45:00 Singer [facility] URINE DRUG (IMMUNOASSAY) 2022-03-10 23:45:00 Darryn Owusu [facility] RUST DRUG Medical [facility] nch SCREEN W/O REFLEX FLU VACC (), 6 2022-01-27 16:36:45 Arik Benz [facility] MO-64 YRS, .5ML, IM, QUAD [facility] (FLUCELVAX) ASSIGNMENT OF BENEFITS 2022-01-27 16:03:32 Doctor Unassigned, [facility] POCT URINALYSIS 2022-01-27 00:00:00 Demar [facility] o f [facility] AUTHORIZATION FOR RELEASE 2022-01-08 05:01:00 Doctor Unacr, [facility] AUTHORIZATION FOR RELEASE 2021-12-23 05:01:00 Doctor Alyssa, [facility] Encounters Start End Encounter Admission Attending Care Care Encounter Source Date/Time Date/Time Type Type Clinicians Facility Department ID 2021-05-01 Outpatient MDA MDA [id number] 17:26:47 Anderso n 2021-02-26 Outpatient P [facility] [id number] Univers 18:38:00 ity of [facility] 2021-01-27 Outpatient P [facility] [id number] Univers 20:41:07 ity of [facility] 2021-01-27 Emergency [facility] [id number] Univers 20:40:15 ity of [facility] 2021-01-27 Emergency [facility] [id number] Univers 15:33:55 ity of [facility] 2021-01-27 Outpatient U [facility] [id number] Univers 01:16:04 ity of [facility] 2021-01-27 Emergency [facility] [id number] Univers 00:53:09 ity of [facility] 2021-01-26 Emergency [facility] [id number] Univers 22:49:05 ity of [facility] 2021-01-25 Emergency [facility] [id number] Univers 21:41:56 ity of [facility] 2021-01-25 Outpatient SHELBY [facility] [id number] Univers 13:01:25 ALY ity of [facility] 2021-01-25 Outpatient SHELBY [facility] [id number] Univers 13:01:24 ALY ity [facility] 2021-01-25 [facility] [id number] Univers 12:47:10 ALY leonard [facility] 2021-01-24 Outpatient R [facility] [id number] Univers 15:57:25 ALY ity [facility] 2021-01-24 Emergency [facility] [id number] Univers 10:32:11 ity of [facility] 2021-01-24 Emergency [facility] [id number] Univers 10:16:12 ity [facility] 2021-01-23 Emergency [facility] [id number] Univers 21:15:49 [facility] 2022-12-08 2022-12-08 Outpatient Campos BENZ [facility] [id number] Univers 16:15:00 16:15:00 ARIK [facility] 2022-09-23 2022-09-23 [facility] 1.2.840.114 [id number] Univers 00:00:00 00:00:00 [facility] 350.1.13.10 it y of [place] 4.2.7.2.686 Henry as DONTE?BLEA [id number] [address] MEDICAL OFFICE [facility] 2022-09-23 2022-09-23 [facility] 1.2.840.114 [id number] Univers 00:00:00 00:00:00 [facility] 350.1.13.10 it y of steven [place] 4.2.7.2.686 Henry as DONTE?BLEA [phone] [address] MEDICAL OFFICE [facility] 2022-09-10 2022-09-10 Orders Doctor MARTINEZ 1.2.840.114 [id number] Univers 00:00:00 00:00:00 Only Unassigned, SHAYY 350.1.13.10 ity of [place] [facility] 4.2.7.2.686 Henry as [id number] [address] 2022-09-09 2022-09-09 [facility] 1.2.840.114 [id number] Univers 00:00:00 00:00:00 Arik HEALTH 350.1.13.10 it y of Edward [place] 4.2.7.2.686 Henry as DONTE?BLEA [phone] [facility] [address] MEDICAL OFFICE [facility] 2022-09-09 2022-09-09 [facility] 1.2.840.114 [id number] Univers 00:00:00 00:00:00 Arik HEALTH 350.1.13.10 it y of [place] 4.2.7.2.686 Henry as DONTE?BLEA [id number] [address] OFFICE [facility] 2022-09-09 2022-09-09 Patient [facility] 1.2.840.114 [id number] Univers 00:00:00 00:00:00 Secure Msg Arik HEALTH 350.1.13.10 ity of [place] 4.2.7.2.686 Henry as DONTE?BLEA [id number] [address] OFFICE [facility] 2022-09-09 2022-09-09 Telephone [facility] 1.2.840.114 [id number] Univers 00:00:00 00:00:00 Arik HEALTH 350.1.13.10 it y of [place] 4.2.7.2.686 Henry as DONTE?BLEA [id number] [address] OFFICE [facility] 2022-09-09 2022-09-09 Telephone [facility] 1.2.840.114 [id number] Univers 00:00:00 00:00:00 Arik HEALTH 350.1.13.10 it y of [place] 4.2.7.2.686 Henry as DONTE?BLEA [phone] [address] OFFICE [facility] 2022-09-08 2022-09-08 Telephone [facility] 1.2.840.114 [id number] Univers 00:00:00 00:00:00 Arik HEALTH 350.1.13.10 it y of [place] 4.2.7.2.686 Henry as DONTE?BLEA [id number] Mn dread PRADHAN[address] OFFICE [facility] 2022-09-02 2022-09-02 Refill [facility] 1.2.840.114 [id number] Univers 00:00:00 00:00:00 [facility] 350.1.13.10 it y of [place] 4.2.7.2.686 Henry as DONTE?BLEA [phone] [facility] PRADHAN[address] OFFICE [facility] 2022-08-31 2022-08-31 [facility] 1.2.840.114 [id number] Univers 00:00:00 00:00:00 [facility] 350.1.13.10 it y of [place] 4.2.7.2.686 Henry as DONTE?BLEA [phone] [address] OFFICE [facility] 2022-08-31 2022-08-31 Patient [facility] 1.2.840.114 [id number] Univers 00:00:00 00:00:00 Secure [facility] 350.1.13.10 ity of [place] 4.2.7.2.686 Henry as DONTE?BLEA [phone] Mn dread [address] OFFICE [facility] 2022-08-27 2022-08-27 [facility] 1.2.840.114 [id number] Univers 00:00:00 00:00:00 , [facility] 350.1.13.10 ity of M [place] 4.2.7.2.686 Henry as DONTE?BLEA [phone] Mn dread PRADHAN[address] OFFICE [facility] 2022-08-27 2022-08-27 Patient [facility] 1.2.840.114 [id number] Univers 00:00:00 00:00:00 Secure [facility] 350.1.13.10 ity of [place] 4.2.7.2.686 Henry as DONTE?BLEA [phone] [address] OFFICE [facility] 2022-08-25 2022-08-25 Orders Doctor MARTINEZ 1.2.840.114 [id number] Univers 00:00:00 00:00:00 Only Unassigned, SHAYY 350.1.13.10 ity of [place] [facility] 4.2.7.2.686 Henry as [phone] [address] 2022-08-21 2022-08-21 Outpatient R [facility] [id number] Univers 11:20:00 12:22:58 , DONNA it y of [facility] 2022-08-21 2022-08-21 Office [facility] 1.2.840.114 [id number] Univers 11:20:00 12:22:58 Visit , Donna HEALTH 350.1.13.10 ity of Karen [place] 4.2.7.2.686 Henry as DONTE?BLEA [phone] [address] MEDICAL OFFICE [facility] 2022-08-21 2022-08-21 Patient Anthony [facility] 1.2.840.114 [id number] Univers 00:00:00 00:00:00 Outreach Gema Maria HEALTH 350.1.13.10 i ty of [place] 4.2.7.2.686 Henry as DONTE?BLEA [phone] [address] MEDICAL OFFICE [facility] 2022-08-19 2022-08-19 Orders Doctor JUAN 1.2.840.114 [id number] Univers 00:00:00 00:00:00 Only Unassigned, SHAYY 350.1.13.10 ity of [place] [facility] 4.2.7.2.686 Henry as [id number] [address] 2022-08-19 2022-08-19 Telephone [facility] 1.2.840.114 [id number] Univers 00:00:00 00:00:00 Arik HEALTH 350.1.13.10 it y of [facility] 4.2.7.2.686 [place] as DONTE?BLEA [phone] [address] MEDICAL OFFICE [facility] 2022-08-15 2022-08-15 [facility] 1.2.840.114 [id number] Univers 00:00:00 00:00:00 Arik HEALTH 350.1.13.10 it y of [place] 4.2.7.2.686 Henry as DONTE?BLEA [phone] [facility] MELVIN [address] [facility] OFFICE [facility] 2022-08-10 2022-08-10 Telephone [facility] 1.2.840.114 [id number] Univers 00:00:00 00:00:00 Teo TREVIZO 350.1.13.10 i ty of [facility] 4.2.[place].2.[place] [id number] [address] 2022-08-10 2022-08-10 Telephone [facility] 1.2.840.114 [id number] Univers 00:00:00 00:00:00 Teo TREVIZO 350.1.13.10 i ty of [facility] 4.2.7.2.[place] [id number] [address] 2022-08-10 2022-08-10 Telephone [facility] 1.2.840.114 [id number] Univers 00:00:00 00:00:00 [facility] 350.1.13.10 it y of [place] 4.2.7.2.686 Henry as DONTE?BLEA [phone] [facility] [address] [facility] OFFICE [facility] 2022-08-08 2022-08-08 Nurse Nurse, [facility] 1.2.840.114 [id number] Univers 14:30:00 14:50:00 Visit Unknown, [facility] 350.1.13.10 ity of [place] 4.2.7.2.686 Hnery as DONTE?BLEA [phone] [facility] [address] [facility] OFFICE [facility] 2022-08-08 2022-08-08 Outpatient R NATALY [facility] [id number] Univers 14:30:00 14:30:00 TEO ity [facility] 2022-08-04 2022-08-04 Office [facility] 1.2.840.114 [id number] Univers 14:30:00 15:00:[address] [facility] 350.1.13.10 it y of [place] 4.2.7.2.686 Henry as DONTE?BLEA [phone] [facility] [address] MEDICAL OFFICE [facility] 2022-08-04 2022-08-04 Outpatient R DEMAR [facility] [id number] Univers 14:30:00 14:18:19 ARIK ity of [facility] 2022-07-30 2022-07-30 RefJUAN Stein 1.2.840.114 [id number] Univers 00:00:00 00:00:00 [facility] 350.1.13.10 it y of [facility] 4.2.7.2.686 Henry as [id number] [address] 2022-07-26 2022-07-26 [facility] 1.2.840.114 [id number] [facility] 00:00:00 00:00:00 [facility] 350.1.13.10 it y of [facility] 4.2.7.2.686 Henry as DONTE?BLEA [id number] [facility] PRADHAN[address] OFFICE [facility] 2022-07-22 2022-07-22 [facility] 1.2.840.114 [id number] Univers 00:00:00 00:00:00 [facility] 350.1.13.10 it y of [place] 4.2.7.2.686 Henry as DONTE?BLEA [phone] Mn dread MELVIN [address] [place] [address] OFFICE [facility] 2022-06-26 2022-06-26 [facility] 1.2.840.114 [id number] Univers 08:19:16 23:59:00 Encounter Teo SPECIALTY 350.1.13.10 ity of [place].2.[place] [id number] Mn dread MESSER 800 [facility] 2022-06-26 2022-06-26 Medical Grade [facility], [facility] 1.2.840.114 [id number] Univers 10:30:00 10:45:00 Visit Teo Ingram SPECIALTY 350.1.13.10 ity of [place]2.7.2.[place] [id number] Mn dread MESSER 353 [facility] 2022-06-26 2022-06-26 Outpatient R NATALY [facility] [id number] Univers 08:18:41 08:18:00 TEO ity of [facility] 2022-06-26 2022-06-26 Hospital Nataly [facility] 1.2.840.114 [id number] Univers 08:00:00 08:18:00 Encounter Teo SPECIALTY 350.1.13.10 ity of [place]2.[place] [phone] Mn dread MESSER 800 [facility] 2022-06-26 2022-06-26 Case KATHERINE Ingram 1.2.572.715 [id number] Univers 00:00:00 00:00:00 Management Teo PEDIATRIC 350.1.13.10 ity of [place]2.7.2.[place] [id number] [place] [address] Branch [facility] 2022-06-25 2022-06-25 Patient [facility] 1.2.840.114 [id number] Univers 00:00:00 00:00:00 Secure Msg Arik HEALTH 350.1.13.10 ity of [place] 4.2.7.2.686 Henry as DONTE?BLEA [phone] Mn dicdhruv EY [address] MEDICAL OFFICE BUILDING 2022-06-25 2022-06-25 Patient [facility] 1.2.840.114 [id number] Univers 00:00:00 00:00:00 Secure Msg Arik HEALTH 350.1.13.10 ity of [place] 4.2.7.2.686 Henry as DONTE?BLEA [id number] Mn dicdhruv MELVIN [address] MEDICAL OFFICE BUILDING 2022-06-25 2022-06-25 Patient Nataly [facility] 1.2.823.908 [id number] Univers 00:00:00 00:00:00 Secure Msg Teo [place] 350.1.13.10 ity of [place] 4.2.7.2.686 [place] [phone] Mn dicdhruv NAL [address] [place] [address] 2022-06-22 2022-06-22 Refill Demar, [facility] 1.2.840.114 [id number] Univers 00:00:00 00:00:00 Arik [facility] 350.1.13.10 it y of Jonathan [place] 4.2.7.2.686 Henry as DONTE?BLEA [phone] Mn dread MELVIN [address] [place] [address] 2022-06-22 2022-06-22 Telephone [facility] 1.2.840.114 [id number] Univers 00:00:00 00:00:00 Teo TREVIZO 350.1.13.10 i ty of [facility] 4.2.7.2.[place] [phone] Mn dical [address] 2022-06-19 2022-06-19 Telephone [facility] 1.2.840.114 10 [id number] Univers 00:00:00 00:00:00 Teo TREVIZO 350.1.13.10 i ty of [place] 4.2.7.2.686 [place] [phone] Mn dicdhruv COTE [address] [place] [address] 2022-06-12 2022-06-12 Telephone [facility] hospital 1.2.131.728 [id number] Univers 00:00:00 00:00:00 Elle TREVIZO 350.1.13.10 ity of [place] 4.2.7.2.686 [place] [id number] Mn dic[address] 2022-06-10 2022-06-10 Patient Doctor [facility] 1.2.840.114 [id number] Univers 00:00:00 00:00:00 Secure Msg Unassigned, HEALTH 350.1.13.10 ity of [place]SELINE 4.2.7.2.686 Henry as DONTE?BLEA [phone] Mn dread MELVIN [address] [place] [address] 2022-06-09 2022-06-09 Emergency X AUFDERIDE [facility] ERT [id number] Univers 08:29:00 10:11:00 , ERIC ity of [facility] 2022-06-09 2022-06-09 Emergency Aufderheide [facility] 1.2.840.114 [id number] Univers 08:29:00 10:11:00 , Eric TREVIZO 350.1.13.10 i ty of [place] 4.2.7.2.686 [place] [id number] [facility] [address] [place] 2022-06-09 2022-06-09 Telephone [facility] 1.2.840.114 [id number] Univers 00:00:00 00:00:00 [facility] 350.1.13.10 it y of [place] 4.2.7.2.686 Henry as DONTE?BLEA [id number] [address] MEDICAL OFFICE [facility] 2022-06-09 2022-06-09 Refill [facility] 1.2.840.114 [id number] Univers 00:00:00 00:00:00 [facility] 350.1.13.10 it y of [place] [facility] 4.2.7.2.686 Henry as DONTE?BLEA [id number] [address] OFFICE [facility] 2022-06-08 2022-06-08 Orders Doctor JUAN 1.2.840.114 [id number] Univers 00:00:00 00:00:00 Only Unassigned, SHAYY 350.1.13.10 ity of [place] [facility] 4.2.7.2.686 Henry as [id number] [facility] [address] [place] 2022-06-05 2022-06-05 Outpatient Campos OWEN [facility] [id number] Univers 11:00:00 11:00:00 ELLE ellis of [facility] 2022-06-05 2022-06-05 Telephone [facility] 1.2.840.114 [id number] Univers 00:00:00 00:00:00 [facility] 350.1.13.10 it y of [place] [facility] 4.2.7.2.686 [place] as DONTE?BLEA [id number] [address] MEDICAL OFFICE [facility] 2022-06-04 2022-06-04 Telephone [facility] 1.2.840.114 [id number] Univers 00:00:00 00:00:00 [facility] 350.1.13.10 it y of [place] [facility] 4.2.7.2.686 Henry as DONTE?BLEA [id number] Mn dical KNEY [address] [facility] OFFICE [facility] 2022-06-04 2022-06-04 [facility] 1.2.840.114 [id number] Univers 00:00:00 00:00:[address] [facility] 350.1.13.10 ity of [place] [facility] 4.2.7.2.686 Henry as DONTE?BLEA [id number] [facility] 044 [facility] OFFICE [facility] 2022-06-03 2022-06-03 Outpatient R NATALY [facility] [id number] Univers 10:40:13 23:59:00 TEO ity of [facility] 2022-06-03 2022-06-03 [facility] 1.2.840.114 [id number] Univers 10:40:00 23:59:00 Encounter Teo TREVIZO [id number] [facility] [id number] [id number] [facility] [address] [place] 2022-06-03 2022-06-03 Patient Doctor [facility] 1.2.840.114 [id number] Univers 00:00:00 00:00:00 Secure Msg Unassigned, [place] [id number] [id number] [id number] [place] [facility] 2022-06-03 2022-06-03 Orders Doctor JUAN 1.2.840.114 [id number] Univers 00:00:00 00:00:00 Only Unassigned, SHAYY 350.1.13.10 ity of [place] [facility] 4.2.7.2.686 Henry as [id number] [facility] [address] [place] 2022-05-25 2022-05-25 Patient [facility] 1.2.840.114 [id number] Univers 00:00:00 00:00:[address] [facility] 350.1.13.10 ity of [place] [facility] 4.2.7.2.686 Henry as DONTE?BLEA [phone] Mn dicdhruv [facility] 044 [facility] OFFICE [facility] 2022-05-25 2022-05-25 Telephone [facility] 1.2.840.114 [id number] Univers 00:00:00 00:00:00 [facility] 350.1.13.10 it y of [place] [facility] 4.2.7.2.686 Henry as DONTE?BLEA [phone] Mn dicdhruv [address] OFFICE [facility] 2022-05-04 2022-05-04 Orders Doctor JUAN 1.2.840.114 [id number] Univers 00:00:00 00:00:00 Only Unassigned, SHAYY 350.1.13.10 [facility] 4.2.7.2.686 Henry as [phone] [address] 2022-04-30 2022-04-30 Outpatient Cam[facility] [id number] Univers 09:45:00 10:48:21 TEO ity [facility] 2022-04-30 2022-04-30 Office [facility] 1.2.343.832 [id number] Univers 09:45:00 10:48:21 Visit Teo [place] 350.1.13.10 i ty of [facility] 4.2.7.2.[place] [phone] Mn dread [address] 2022-04-30 2022-04-30 Outpatient Campos INGRAM [facility] [id number] Univers 09:45:00 09:45:00 TEO ity [facility] 2022-04-29 2022-04-29 Refill [facility] 1.2.840.114 [id number] Univers 00:00:00 00:00:00 [facility] 350.1.13.10 it y of [place] [facility] 4.2.7.2.686 Henry as DONTE?BLEA [phone] Mn dicdhruv [address] OFFICE [facility] 2022-04-28 2022-04-28 Telephone [facility] 1.2.840.114 [id number] Univers 00:00:00 00:00:00 [facility] 350.1.13.10 it y of [place] 4.2.7.2.686 Henry as DONTE?BLEA [id number] [address] OFFICE [facility] 2022-04-24 2022-04-24 [facility] 1.2.840.114 [id number] Univers 00:00:00 00:00:00 [facility] 350.1.13.10 it y of [place] 4.2.7.2.686 Henry as DONTE?BLEA [id number] [address] OFFICE [facility] 2022-04-24 2022-04-24 [facility] 1.2.840.114 [id number] Univers 00:00:00 00:00:00 [facility] 350.1.13.10 it y of [place] 4.2.7.2.686 Henry as DONTE?BLEA [id number] [address] OFFICE [facility] 2022-04-24 2022-04-24 [facility] 1.2.840.114 [id number] [facility] 00:00:00 00:00:00 Secure Msg Emilia [facility] 350.1.13.10 ity of [place] 4.2.7.2.686 Henry as DONTE?BLEA [id number] [address] OFFICE [facility] 2022-04-24 2022-04-24 [facility] 1.2.840.114 [id number] Univers 00:00:00 00:00:00 [facility] 350.1.13.10 it y of [place] 4.2.7.2.686 Henry as DOTNE?BLEA [phone] [address] OFFICE [facility] 2022-04-16 2022-04-16 Telephone [facility] 1.2.840.114 [id number] Univers 00:00:00 00:00:00 [facility] 350.1.13.10 it y of [place] 4.2.7.2.686 Henry as DONTE?BLEA [id number] [address] OFFICE [facility] 2022-04-14 2022-04-14 [facility] 1.2.840.114 [id number] Univers 00:00:00 00:00:00 Arik HEALTH 350.1.13.10 it y of [place] 4.2.7.2.686 Henry as DONTE?BLEA [id number] [address] 2022-04-06 2022-04-06 [facility] 1.2.840.114 [id number] Univers 00:00:00 00:00:00 Arik HEALTH 350.1.13.10 it y of Edward [place] 4.2.7.2.686 Henry as DONTE?BLEA [id number] [address] 2022-04-06 2022-04-06 [facility] 1.2.840.114 [id number] Univers 00:00:00 00:00:00 [facility] HEALTH 350.1.13.10 it y of [place] 4.2.7.2.686 Henry as DONTE?BLEA [id number] [address] 2022-04-06 2022-04-06 [facility] 1.2.840.114 [id number] Univers 00:00:00 00:00:00 Arik HEALTH 350.1.13.10 it y of [place] 4.2.7.2.686 Henry as DONTE?BLEA [id number] [address] OFFICE [facility] 2022-04-06 2022-04-06 [facility] 1.2.840.114 [id number] Univers 00:00:00 00:00:00 Arik HEALTH 350.1.13.10 it y of [place] 4.2.7.2.686 Henry as DONTE?BLEA [id number] [address] 2022-04-03 2022-04-03 Jitendra MARTINEZ 1.2.840.114 [id number] Univers 00:00:00 00:00:00 Only Unassigned, SHAYY 350.1.13.10 ity of [facility] 4.2.7.2.686 Henry as [phone] [address] 2022-03-29 2022-03-29 [facility] 1.2.840.114 [id number] Univers 00:00:00 00:00:00 [facility] 350.1.13.10 it y of [place] 4.2.7.2.686 Henry as DONTE?BLEA [phone] [address] MEDICAL OFFICE [facility] 2022-03-21 2022-03-21 [facility] 1.2.840.114 [id number] Univers 00:00:00 00:00:00 [facility] 350.1.13.10 it y of [place] 4.2.7.2.686 Henry as DONTE?BLEA [phone] [address] OFFICE [facility] 2022-03-17 2022-03-17 Patient [facility] 1.2.840.114 [id number] Univers 00:00:00 00:00:00 Secure Ms Emliia [facility] 350.1.13.10 ity of [place] 4.2.7.2.686 Henry as DONTE?BLEA [phone] [address] OFFICE [facility] 2022-03-16 2022-03-16 [facility] 1.2.840.114 [id number] Univers 00:00:00 00:00:00 [facility] 350.1.13.10 it y of [place] 4.2.7.2.686 Henry as DONTE?BLEA [id number] [address] OFFICE [facility] 2022-03-16 2022-03-16 [facility] 1.2.840.114 [id number] 002 Univers 00:00:00 00:00:00 [facility] 350.1.13.10 it y of [place] 4.2.7.2.686 Henry as DONTE?BLEA [id number] [address] OFFICE [facility] 2022-03-16 2022-03-16 Patient [facility] 1.2.840.114 [id number] Univers 00:00:00 00:00:00 Secure Ms Arik [facility] 350.1.13.10 ity of [place] 4.2.7.2.686 Henry as DONTE?BLEA [id number] [address] MEDICAL OFFICE [facility] 2022-03-13 2022-03-13 Patient [facility] 1.2.840.114 [id number] Univers 00:00:00 00:00:00 Secure Msg Arik HEALTH 350.1.13.10 ity of [place] 4.2.7.2.686 Henry as DONTE?BLEA [id number] [address] OFFICE [facility] 2022-03-13 2022-03-13 Telephone [facility] 1.2.840.114 [id number] Univers 00:00:00 00:00:00 Arik [facility] 350.1.13.10 it y of [place] 4.2.7.2.686 Henry as DONTE?BLEA [id number] [address] OFFICE [facility] 2022-03-13 2022-03-13 Refill [facility] 1.2.840.114 [id number] Univers 00:00:00 00:00:00 [facility] 350.1.13.10 it y of [place] 4.2.7.2.686 Henry as DONTE?BLEA [phone] [address] OFFICE [facility] 2022-03-11 2022-03-11 JUAN [place] 1.2.840.114 [id number] Univers 00:00:00 00:00:00 (Out) Helen GARAY 350.1.13.10 it y of HOSPITAL 4.2.7.2.686 Henry as [phone] [address] 2022-03-10 2022-03-10 Emergency X RONEN [facility] ERT [id number] Univers 17:24:00 23:18:00 KEITH campy of [facility] 2022-03-10 2022-03-10 Emergency Darryn Owusu [facility] 1.2.840. 114 [id number] Univers 17:24:00 23:18:00 Keith Yi 350.1.13.10 ity of [facility] 4.2.7.2.[place] [phone] [facility] [address] [place] 2022-03-10 2022-03-10 [facility] 1.2.840.114 [id number] Univers 00:00:00 00:00:00 [facility] 350.1.13.10 it y of [place] [facility] 4.2.7.2.686 Henry as DONTE?BLEA [id number] [address] MEDICAL OFFICE [facility] 2022-02-23 2022-02-23 [facility] 1.2.840.114 [id number] Univers 00:00:00 00:00:00 Arik [facility] 350.1.13.10 it y of [place] [facility] 4.2.7.2.686 Henry as DONTE?BLEA [id number] [address] MEDICAL OFFICE [facility] 2022-01-27 2022-01-27 Outpatient R [facility] [id number] Univers 11:30:00 12:50:55 ARIK ity of [facility] 2022-01-27 2022-01-27 Office [facility] 1.2.840.114 [id number] [facility] 11:30:00 12:50:[address] [facility] 350.1.13.10 it y of [place] 4.2.7.2.686 Henry as DONTE?BLEA [phone] [address] MEDICAL OFFICE [facility] 2022-01-27 2022-01-27 Orders Doctor JUAN 1.2.840.114 [id number] Univers 00:00:00 00:00:00 Only Unassigned, SHAYY 350.1.13.10 ity of [place] [facility] 4.2.7.2.686 Henry as [phone] [facility] [address] [place] 2022-01-26 2022-01-26 Outpatient R [facility] [id number] Univers 13:00:00 13:00:00 ity of [facility] 2022-01-26 2022-01-26 Patient [facility] 1.2.840.114 [id number] Univers 00:00:00 00:00:00 Secure Msg Arik TREVIZO 350.1.13.10 ity of [place].2.7.2.[place] [id number] [address] 2022-01-26 2022-01-26 Telephone [facility] 1.2.840.114 [id number] Univers 00:00:00 00:00:00 Arik HEALTH 350.1.13.10 it y of [place] 4.2.7.2.686 Henry as DONTE?BLEA [phone] [address] 2022-01-23 2022-01-23 [facility] 1.2.840.114 [id number] Univers 00:00:00 00:00:00 Arik HEALTH 350.1.13.10 it y of [place] 4.2.7.2.686 Henry as DONTE?BLEA [id number] [address] 2022-01-22 2022-01-22 Patient [facility] 1.2.840.114 [id number] Univers 00:00:00 00:00:00 Secure Msg Arik TREVIZO 350.1.13.10 ity of [place].2.7.2.[place] [phone] [address] 2022-01-20 2022-01-20 [facility] 1.2.840.114 [id number] Univers 00:00:00 00:00:00 Arik HEALTH 350.1.13.10 it y of [place] 4.2.7.2.686 Henry as DONTE?BLEA [id number] [address] 2022-01-19 2022-01-19 [facility] 1.2.840.114 [id number] Univers 00:00:00 00:00:00 Arik HEALTH 350.1.13.10 it y of [place] 4.2.7.2.686 Henry as DONTE?BLEA [id number] [address] OFFICE [facility] 2022-01-19 2022-01-19 Patient [facility] 1.2.840.114 [id number] Univers 00:00:00 00:00:00 Secure Msg Arik HEALTH 350.1.13.10 ity of [place] 4.2.7.2.686 Henry as DONTE?BLEA [id number] [address] OFFICE [facility] 2022-01-08 2022-01-08 Telephone [facility] 1.2.957.195 [id number] Univers 00:00:00 00:00:00 Onel HEALTH 350.1.13.10 it y of [place] 4.2.7.2.686 Henry as DONTE?BLEA [id number] [address] 2022-01-08 2022-01-08 Orders Doctor JUAN 1.2.840.114 [id number] Univers 00:00:00 00:00:00 Only Unassigned, SHAYY 350.1.13.10 ity of [place] [facility] 4.2.7.2.686 Henry as [id number] [address] 2021-12-23 2021-12-23 Telephone [facility] 1.2.840.114 [id number] Univers 00:00:00 00:00:00 Arik HEALTH 350.1.13.10 it y of [place] 4.2.7.2.686 Henry as DONTE?BLEA [phone] [address] 2021-12-23 2021-12-23 Orders Doctor JUAN 1.2.840.114 [id number] Univers 00:00:00 00:00:00 Only Unassigned, SHAYY 350.1.13.10 ity of [place] [facility] 4.2.7.2.686 Henry as [id number] [address] 2021-12-22 2021-12-22 Refill [facility] 1.2.840.114 [id number] Univers 00:00:00 00:00:00 Arik HEALTH 350.1.13.10 it y of [place] 4.2.7.2.686 Henry as DONTE?BLEA [id number] [address] MEDICAL OFFICE BUILDING 2021-12-22 2021-12-22 Telephone [facility] 1.2.840.114 [id number] Univers 00:00:00 00:00:00 Arik HEALTH 350.1.13.10 it y of [place] 4.2.7.2.686 Henry as DONTE?BLEA [id number] [address] MEDICAL OFFICE BUILDING 2021-12-22 2021-12-22 Patient [facility] 1.2.840.114 [id number] Univers 00:00:00 00:00:00 Secure Msg Arik HEALTH 350.1.13.10 ity of [place] 4.2.7.2.686 Henry as DONTE?BLEA [id number] [address] MEDICAL OFFICE [facility] 2021-12-04 2021-12-04 Refill [facility] 1.2.840.114 [id number] Univers 00:00:00 00:00:00 [facility] 350.1.13.10 it y of [place] 4.2.7.2.686 Henry as DONTE?BLEA [id number] [address] OFFICE [facility] 2021-11-26 2021-11-26 Outpatient R KIZZY SANTOS [facility] [id number] Univers 13:20:00 16:16:11 KIZZY SANTOS y of [facility] 2021-11-26 2021-11-26 Office Kizzy Santos [facility] 1.2.840.114 [id number] Univers 13:20:00 16:16:11 Visit MULTISPEC 350.1.13.10 ity of [place].2.[place] [id number] [address] [facility] 2021-11-26 2021-11-26 Outpatient R KIZZY SANTOS [facility] [id number] Univers 13:20:00 16:16:11 KIZZY SANTOS it y of [facility] 2021-11-26 2021-11-26 Outpatient R TOM KIZZY [facility] [id number] Univers 13:20:00 13:20:00 KIZZY SANTOS it y of [facility] 2021-11-26 2021-11-26 Refill [facility] 1.2.840.114 [id number] Univers 00:00:00 00:00:00 Arik HEALTH 350.1.13.10 it y of [place] 4.2.7.2.686 Henry as DONET?BLEA [id number] [address] MEDICAL OFFICE [facility] 2021-11-25 2021-11-25 [facility] ERT [id number] Univers 14:54:00 15:38:00 CHRISTOPHER it y of [facility] 2021-11-25 2021-11-25 [facility] 1.2.808.728 [id number] Univers 14:54:00 15:38:00 Christopher [place] 350.1.13.10 ity of [place] 4.2.7.2.686 [place] [facility] [id number] [address] 2021-11-25 2021-11-25 Telephone [facility] 1.2.840.114 [id number] Univers 00:00:00 00:00:00 Arik HEALTH 350.1.13.10 it y of [place] 4.2.7.2.686 Henry as DONTE?BLEA [id number] [address] 2021-11-25 2021-11-25 Patient [facility] 1.2.840.114 [id number] Univers 00:00:00 00:00:00 Secure Msg Arik HEALTH 350.1.13.10 ity of [place] 4.2.7.2.686 Henry as DONTE?BLEA [id number] [address] 2021-11-18 2021-11-18 Outpatient R DEMAR [facility] [id number] Univers 14:00:00 14:24:37 ARIK ity of [facility] 2021-11-18 2021-11-18 Office [facility] 1.2.840.114 [id number] Univers 14:00:00 14:15:[address] [facility] 350.1.13.10 it y of [place] 4.2.7.2.686 Henry as DONTE?BLEA [id number] [address] OFFICE [facility] 2021-11-18 2021-11-18 Outpatient [facility] [id number] Univers 14:00:00 14:00:00 ARIK [facility] 2021-11-11 2021-11-11 Outpatient R [facility] 00014 [id number] Univers 13:30:00 13:30:00 [facility] 2021-11-03 2021-11-03 [facility] 1.2.840.114 [id number] Univers 00:00:00 00:00:00 [facility] 350.1.13.10 it y of [place] 4.2.7.2.686 Henry as DONTE?BLEA [id number] [address] OFFICE [facility] 2021-10-27 2021-10-27 Patient [facility] 1.2.840.114 [id number] Univers 00:00:00 00:00:00 Secure Msstephanie Nieto [facility] 350.1.13.10 ity of [place] 4.2.7.2.686 Henry as DONTE?BLEA [phone] [address] 2021-10-15 2021-10-15 [facility] 1.2.840.114 [id number] Univers 00:00:00 00:00:00 Arik [place] 350.1.13.10 i ty of [place]2.7.2.686 [place] [id number] [address] 2021-10-14 2021-10-14 Outpatient R [facility] [id number] Univers 14:00:00 14:00:00 OLIVA [facility] 2021-10-09 2021-10-09 [facility] 1.2.840.114 [id number] Univers 00:00:00 00:00:00 [facility] 350.1.13.10 it y of [place] 4.2.7.2.686 Henry as DONTE?BLEA [phone] Mn dread MELVIN 0[address] [facility] OFFICE [facility] 2021-10-08 2021-10-08 [facility] 1.2.840.114 [id number] Univers 00:00:00 00:00:00 [facility] HEALTH 350.1.13.10 it y of [place] 4.2.7.2.686 Henry as DONTE?BLEA [phone] Mn dread MELVIN [address] [place] [address] OFFICE [facility] 2021-10-07 2021-10-07 [facility] 1.2.840.114 [id number] Univers 00:00:00 00:00:00 [facility] 350.1.13.10 it y of [place] 4.2.7.2.686 Henry as DONTE?BLEA [id number] Mn dread MELVIN [address] [place] [address] MEDICAL OFFICE [facility] 2021-10-02 2021-10-02 [facility] 1.2.840.114 [id number] Univers 00:00:00 00:00:00 [facility] 350.1.13.10 it y of [place] 4.2.7.2.686 Henry as DONTE?BLEA [phone] Mn dread MELVIN [address] [place] [address] OFFICE [facility] 2021-09-18 2021-09-18 Outpatient Campos MCCLAIN [facility] [id number] Univers 13:13:16 23:59:00 CARMEN joaquinaleonard [facility] 2021-09-18 2021-09-18 Office [facility] 1.2.840.114 [id number] Univers 14:30:00 15:00:00 Visit [facility] 350.1.13.10 it y of [place] 4.2.7.2.686 Henry as DONTE?BLEA [phone] Mn dread MELVIN [address] [facility] OFFICE [facility] 2021-09-18 2021-09-18 Outpatient Campos MCCLAIN [facility] [id number] Univers 14:30:00 14:03:55 CARMEN ellis [facility] 2021-09-18 2021-09-18 Outpatient R SARAHI [facility] [id number] Univers 14:30:00 14:03:55 CARMEN ellis [facility] 2021-09-18 2021-09-18 Outpatient R AMIE [facility] [id number] Univers 11:00:00 11:00:00 OLYA ellis [facility] 2021-09-18 2021-09-18 Outpatient R [facility] [id number] Univers 11:00:00 11:00:00 [facility] 2021-09-17 2021-09-17 [facility] 1.2.840.114 [id number] Univers 00:00:00 00:00:00 Secure [facility]Ira [facility] 350.1.13.10 ity of [place] 4.2.7.2.686 Henry as DONTE?BLEA [phone] [address] OFFICE [facility] 2021-09-12 2021-09-12 [facility] 1.2.840.114 [id number] Univers 00:00:00 00:00:00 [facility] 350.1.13.10 it y of [place] 4.2.7.2.686 Henry as DONTE?BLEA [phone] [address] OFFICE [facility] 2021-09-11 2021-09-11 Outpatient R SOLOMON [facility] [id number] Univers 14:00:00 14:00:00 OLIVA ellis [facility] 2021-09-11 2021-09-11 Outpatient R SOLOMON [facility] [id number] Univers 14:00:00 14:00:00 OLIVA leonard [facility] 2021-09-11 2021-09-11 Refdb [facility] 1.2.840.114 [id number] Univers 00:00:00 00:00:00 [facility] 350.1.13.10 it y of [place] 4.2.7.2.686 Henry as DONTE?BLEA [phone] Mn dread MELVIN 0[address] [facility] OFFICE [facility] 2021-09-11 2021-09-11 Refill [facility] 1.2.840.114 [id number] Univers 00:00:00 00:00:00 [facility] 350.1.13.10 it y of [place] 4.2.7.2.686 Henry as DONTE?BLEA [id number] Mn dread MELVIN [address] [place] [address] OFFICE [facility] 2021-09-10 2021-09-10 Outpatient Campos HOLLOWAY [facility] [id number] Univers 15:00:00 15:00:00 [place] [facility] 2021-09-10 2021-09-10 Outpatient Campos HOLLOWAY [facility] [id number] Univers 15:00:00 15:00:00 [facility] 2021-09-03 2021-09-03 Outpatient Campos INGRAM [facility] [id number] Univers 13:30:00 13:30:00 TEO [facility] 2021-08-26 2021-08-26 [facility] 1.2.840.1 [id number] Univers 14:00:00 14:15:00 Visit Arik Benz [facility] 350.1.13 .10 ity of [place] 4.2.7.2.686 Henry as DONTE?BLEA [phone] Mn dread MELVIN 353 [facility] 2021-08-26 2021-08-26 Office [facility] 1.2.840.114 [id number] Univers 13:15:00 14:12:01 Visit Arik [facility] 350.1.13.10 it y of [place] 4.2.7.2.686 Henry as DONTE?BLEA [phone] Mn dread MELVIN [address] [place] [address] OFFICE [facility] 2021-08-26 2021-08-26 Outpatient Campos BENZ [facility] [id number] Univers 13:15:00 14:12:01 ARIK [facility] 2021-08-26 2021-08-26 Outpatient Campos BENZ [facility] [id number] Univers 14:00:00 14:00:00 ARIK ellis [facility] 2021-08-26 2021-08-26 Outpatient Campos BENZ [facility] [id number] Univers 13:15:00 13:15:00 ARIK leonard [facility] 2021-08-21 2021-08-21 Patient Avinash [facility] [id number] Univers 00:00:00 00:00:00 Secure Msstephanie Nieto [facility] [id number] ity of [place] [id number] Henry as DONTE?BLEA [phone] [address] MEDICAL OFFICE [facility] 2021-08-19 2021-08-19 Outpatient Campos BENZ [facility] [id number] Univers 08:00:00 08:00:00 ARIK leonard [facility] 2021-08-19 2021-08-19 Refill Doctor [facility] [id number] [id number] Univers 00:00[facility]00 [facility]00[id number] [facility] [place] [facility] [id number] Henry as DONTE?BLEA [phone] [address] 2021-08-19 2021-08-19 Allie Benz [facility] [id number] Univers 00:00:00 00:00:00 [facility] [id number] it y of [place] [id number] Henry as DONTE?BLEA [phone] [address] MEDICAL OFFICE [facility] 2021-08-11 2021-08-11 Outpatient Campos BENZ [facility] [id number] Univers 15:00:00 15:00:00 ARIK ellis [facility] 2021-08-08 2021-08-08 Outpatient Campos BENZ [facility] [id number] Univers 15:00:00 15:00:00 ARIK ellis [facility] 2021-07-29 2021-07-29 Outpatient Campos BENZ [facility] [id number] Univers 13:00:00 13:00:00 ARIK [facility] 2021-07-21 2021-07-21 [facility] 1.2.840.114 [id number] Univers 00:00:00 00:00:00 [facility] 350.1.13.10 it y of [place] 4.2.7.2.686 Henry as DONTE?BLEA [phone] Mn nancyca [address] MEDICAL OFFICE BUILDING 2021-07-09 2021-07-09 [facility] [id number] Univers 13:00:00 13:00:00 [facility] 2021-07-09 2021-07-09 [facility] [id number] Univers 13:00:00 13:00:00 [facility] 2021-07-09 2021-07-09 [facility] [id number] Univers 13:00:00 13:00:00 [facility] 2021-07-09 2021-07-09 [facility] [id number] Univers 13:00:00 13:00:00 [facility] 2021-06-24 2021-06-24 Orders Doctor JUAN 1.2.840.114 [id number] Univers 00:00:00 00:00:00 Only Unassigned, SHAYY 350.1.13.10 ity of [place] [facility] 4.2.7.2.686 Henry as [phone] [address] 2021-05-22 2021-05-22 [facility] 1.2.840.114 [id number] Univers 00:00:00 00:00:00 [facility] 350.1.13.10 it y of [place] 4.2.7.2.686 Henry as PROFESSIO [phone] Mn nancy[address] OFFICE BUILDING ONE 2021-05-17 2021-05-17 [facility] 1.2.840.114 [id number] Univers 00:00:00 00:00:00 [facility] 350.1.13.10 it y of [place] 4.2.7.2.686 Henry as PROFESSIO [phone] Mn dical NAL [address] [place] OFFICE BUILDING ONE 2021-05-13 2021-05-13 Patient Demar [facility] 1.2.840.114 [id number] Univers 00:00:00 00:00:00 Secure [facility] 350.1.13.10 ity of [place] 4.2.7.2.686 Henry as DONTE?BLEA [phone] Mn dical KNEY [address] [place] MEDICAL OFFICE BUILDING 2021-05-09 2021-05-09 Transition KALYANI Rosenberg 1.2.840.114 [id number] Univers 00:00:00 00:00:00 of Care Trinidad WILLS 350.1.13.10 i ty of [place]2.7.[place] [phone] [address] 2021-05-04 2021-05-08 [facility] [id number] Univers 19:48:00 14:30:00 YOKO ity [facility] 2021-05-04 2021-05-08 Hospital Sean Meléndez 1.2.840. 114 [id number] Univers 19:48:00 14:30:00 Encounter Michelle Rivera 350.1.13 .10 ity of [facility] 4.2.7.2.686 [place] Yoko Bryant [phone] [place] 680[address] [place] 2021-05-04 2021-05-08 [facility] MARGIE [id number] Univers 19:48:00 14:30:00 YOKO ity [facility] 2021-05-07 2021-05-07 Outpatient R DEMAR [facility] [id number] Univers 15:00:00 15:00:00 ARIK ellis [facility] 2021-05-01 2021-05-01 Outpatient R SOLOMON [facility] [id number] Univers 09:30:00 09:30:00 OLIVA ellis [facility] 2021-04-30 2021-04-30 Patient Juma Mcdaniels [facility] 1.2.840.114 [id number] Univers 00:00:00 00:00:00 Secure Msg JOSE 350.1.13.10 ity of [place] [id number] [place] [address] [place] 2021-04-29 2021-04-29 Outpatient R JUMA MCDANIELS [facility] [id number] Univers 16:00:00 16:00:00 ity [facility] 2021-04-25 2021-04-25 Outpatient R JUMA MCDANIELS [facility] [id number] Univers 14:00:00 14:00:00 ity [facility] 2021-04-25 2021-04-25 [facility] [id number] Univers 13:00:00 13:00:00 ARIK [facility] 2021-04-24 2021-04-24 [facility] 1.2.840.114 [id number] Univers 00:00:00 00:00:[address] [facility] 350.1.13.10 ity of [place] 4.2.7.2.686 Henry as DONTE?BLEA [phone] [address] OFFICE [facility] 2021-04-24 2021-04-24 [facility] 1.2.840.114 [id number] Univers 00:00:00 00:00:00 [facility] 350.1.13.10 it y of [place] 4.2.7.2.686 [place] as DONTE?BLEA [phone] [address] OFFICE [facility] 2021-04-09 2021-04-09 Outpatient Davar_P VFP VFP [id number] Village 03:51:00 03:51:00 [id number] Family Practic e 2021-04-08 2021-04-08 Patient Demar [facility] 1.2.840.114 [id number] Univers 00:00:00 00:00:[address] [facility] 350.1.13.10 ity of [place] 4.2.7.2.686 Henry as DONTE?BLEA [phone] Mn dread MELVIN 044 [facility] OFFICE [facility] 2021-04-02 2021-04-02 Outpatient R HECTORCOREY [facility] [id number] Univers 14:00:00 14:29:25 [facility] 2021-04-02 2021-04-02 Office [facility] 1.2.840.114 [id number] Univers 14:00:00 14:15:[address] [facility] 350.1.13.10 it y of [place] [facility] 4.2.7.2.686 [place] as DONTE?BLEA [phone] Mn dread PRADHAN[address] 2021-04-02 2021-04-02 Outpatient R DEMAR [facility] [id number] Univers 14:00:00 14:00:00 [facility] 2021-04-02 2021-04-02 Outpatient Campos BENZ [facility] [id number] Univers 14:00:00 14:00:00 [facility] 2021-04-02 2021-04-02 Outpatient R [facility] [id number] Univers 14:00:00 14:00:00 [facility] 2021-04-01 2021-04-01 [facility]phone [facility] 1.2.840.114 [id number] Univers 00:00:00 00:00:00 Oliva TREVIZO 350.1.13.10 i ty of [place] 4.2.7.2.686 [place] [phone] Mn dread [facility] 188 [facility] 2021-03-30 2021-03-30 Nurse JUAN Darnell 1.2.840.114 [id number] Univers 00:00:00 00:00:00 Triage Dakotah GARAY 350.1.13.10 ity of [facility] 4.2.7.2.686 Henry as [phone] [address] 2021-03-28 2021-03-28 Outpatient R [facility] [id number] Univers 10:30:00 10:30:00 [facility] 2021-03-27 2021-03-27 Outpatient R [facility] [id number] Univers 15:00:00 15:00:00 ity [facility] 2021-03-27 2021-03-27 Patient Ad, [facility] 1.2.840.114 [id number] Univers 00:00:00 00:00:00 Secure Msg Elle TREVIZO 350.1.13.10 ity of [place]2.7.2.[place] [phone] Mn dical NAL [address] [place] [address] 2021-03-27 2021-03-27 Case Ad, [facility] 1.2.840.114 [id number] Univers 00:00:00 00:00:00 Management Elle TREVIZO 350.1.13.10 ity of [place] 4.2.7.2.686 [place] [phone] Mn dical NAL [address] [place] [address] 2021-03-25 2021-03-25 Outpatient R [facility], [facility] [id number] Univers 15:15:00 15:15:00 [facility] 2021-03-23 2021-03-24 Inpatient X [facility] [id number] Univers 06:56:00 17:35:00 [facility] 2021-03-23 2021-03-24 [facility] 1.2.840.114 [id number] Univers 06:56:00 17:35:00 Encounter Elle TREVIZO 350.1.13.10 ity of [place] 4.2.7.2.686 [facility] [phone] [address] 2021-03-23 2021-03-23 Anesthesia [facility] 1.2.840.114 [id number] Univers 12:00:00 19:29:00 Event Subhash TREVIZO 350.1.13.10 i ty of [place] 4.2.7.2.686 [facility] [phone] [address] 2021-03-23 2021-03-23 Inpatient X [facility], [facility] [id number] Univers 06:56:00 06:56:00 ELLE ellis [facility] 2021-03-23 2021-03-23 Nurse JUAN Cortes 1.2.840.114 [id number] Univers 00:00:00 00:00:00 Triage Renetta Ochoa SHAYY 350.1.13.10 it y of HOSPITAL 4.2.7.2.686 [place] as [id number] [facility] [address] [place] 2021-03-23 2021-03-23 Orders Doctor JUAN 1.2.840.114 [id number] Univers 00:00:00 00:00:00 Only Unassigned, SHAYY 350.1.13.10 ity of [place] [facility] 4.2.7.2.686 Henry as [phone] [facility] [address] [place] 2021-03-14 2021-03-14 Outpatient R AD, [facility] [id number] Univers 15:30:00 16:54:39 [facility]LE [facility] 2021-03-14 2021-03-14 [facility] 1.2.840.114 [id number] Univers 15:30:00 16:54:39 Elle TREVIZO 350.1.13.10 ity of Visit [place] 4.2.7.2.686 [place] [id number] Mn dical [address] 2021-03-14 2021-03-14 Outpatient R ADUM, [facility] [id number] Univers 15:30:00 15:30:00 [facility] 2021-03-12 2021-03-12 Outpatient P [facility] [id number] Univers 15:00:00 15:00:00 ity [facility] 2021-03-12 2021-03-12 Patient Doctor JUAN 1.2.840.114 [id number] Univers 00:00:00 00:00:00 Secure Msg Unassigned, SHAYY 350.1.13.10 ity of [place] [facility] 4.2.7.2.686 [place] as [phone] [address] 2021-03-11 2021-03-11 Out[facility] [id number] Univers 13:15:00 13:15:00 ARIK [facility] 2021-03-11 2021-03-11 Outpatient [facility] [id number] Univers 13:15:00 13:15:00 ARIK [facility] 2021-03-11 2021-03-11 Office [facility] 1.2.840.114 [id number] Univers 10:30:59 10:45:[address] [facility] 350.1.13.10 it y of [place] 4.2.7.2.686 Henry as DONTE?BLEA [phone] Mn dicdhruv KNEY [address] [place] MEDICAL OFFICE [facility] 2021-03-09 2021-03-09 Outpatient X JUMA MCDANIELS [facility] [id number] Univers 09:27:00 12:30:00 ity of [facility] 2021-03-09 2021-03-09 Emergency Juma Mcdaniels [facility] 1.2.840.114 [id number] Univers 09:27:00 12:30:00 JOSELINE 350.1.13.10 i ty of [place].2.7.2.[place] [phone] [facility] [address] [place] 2021-03-09 2021-03-09 Nurse JUAN Cortes 1.2.840.114 [id number] Univers 00:00:00 00:00:00 Triage Renetta Ochoa SHAYY 350.1.13.10 it y of [facility] 4.2.7.2.686 Ehnry as [id number] [facility] [address] [place] 2021-03-07 2021-03-07 [facility]ine [facility] 1.2.840.114 [id number] Univers 15:34:54 16:24:15 Elle TREVIZO 350.1.13.10 ity of Visit [place] 4.2.7.2.686 [place] [facility] [id number] Mn dicdhruv NAL 134 [facility] 2021-03-07 2021-03-07 [facility] [id number] Univers 15:30:00 16:24:15 ELLE ellis [facility] 2021-03-07 2021-03-07 [facility] 1.2.840.114 [id number] Univers 00:00:00 00:00:00 [facility] 350.1.13.10 it y of [place] [facility] 4.2.7.2.686 Henry as DONTE?BLEA [phone] [address] MEDICAL OFFICE [facility] 2021-03-06 2021-03-06 [facility] 1.2.840.114 [id number] Univers 00:00:00 00:00:00 [facility] 350.1.13.10 it y of [place] [facility] 4.2.7.2.686 Henry as DONTE?BLEA [id number] [address] OFFICE [facility] 2021-03-04 2021-03-04 Outpatient P CHLOE REESE [facility] [id number] Univers 00:27:00 14:38:00 ity of [facility] 2021-03-04 2021-03-04 [facility] Chloe Reese [facility] 1.2.840.114 [id number] Univers 00:27:00 14:38:00 Encounter Raleigh TREVIZO 350.1.13.10 ity of [place] 4.2.7.2.[place] [phone] [facility] [address] [place] [address] 2021-02-27 2021-02-27 Refill [facility], [facility] 1.2.840.114 [id number] Univers 00:00:00 00:00:00 Elle TREVIZO 350.1.13.10 ity of [place] 4.2.7.2.686 [place] [id number] Mn dic[address] 2021-02-27 2021-02-27 Refill Ad, [facility] 1.2.840.114 [id number] Univers 00:00:00 00:00:00 Elle [place] 350.1.13.10 ity of [place] 4.2.7.2.686 [place] [phone] Mn dic[address] 2021-02-27 2021-02-27 Refill Ad, [facility] 1.2.840.114 [id number] Univers 00:00:00 00:00:00 Elle TREVIZO 350.1.13.10 ity of [facility] 4.2.7.2.[place] [id number] Mn dical [facility] 134 [facility] 2021-02-26 2021-02-26 Outpatient P AD, [facility] [id number] Univers 12:08:00 18:00:00 ELLE ity of [facility] 2021-02-26 2021-02-26 Hospital Critical access hospital 1.2.840.114 [id number] Univers 12:08:00 18:00:00 Encounter Elle TREVIZO 350.1.13.10 ity of [place] 4.2.7.2.[place] [phone] [facility] [address] [place] [address] 2021-02-26 2021-02-26 [facility] [id number] Univers 16:00:00 16:00:00 ELLE ity of [facility] 2021-02-26 2021-02-26 Telephone Critical access hospital 1.2.071.137 [id number] Univers 00:00:00 00:00:00 Elle TREVIZO 350.1.13.10 ity of [place] 4.2.7.2.[place] [id number] [address] 2021-02-14 2021-02-14 Telephone [facility] 1.2.840.114 [id number] Univers 00:00:00 00:00:00 [facility] 350.1.13.10 it y of [place] [facility] 4.2.7.2.686 [place] as DONTE?BLEA [id number] [address] MEDICAL OFFICE [facility] 2021-02-07 2021-02-07 Routine Ad, [facility] 1.2.840.114 [id number] Univers 15:39:01 16:45:30 Elle TREVIZO 350.1.13.10 ity of Visit [place] 4.2.7.2.686 [place] PROFESS[place] [id number] Mn dic[address] 2021-02-07 2021-02-07 Outpatient [facility] [id number] Univers 15:30:00 16:45:30 ELLE ellis [facility] 2021-02-06 2021-02-06 Outpatient R [facility], [facility] [id number] Univers 16:00:00 16:00:00 ELLE ellis [facility] 2021-02-04 2021-02-04 Telephone Critical access hospital 1.2.410.928 [id number] Univers 00:00:00 00:00:00 Elle [facility] 350.1.13.10 ity [facility] 4.2.7.2.686 [place] [facility] [id number] [facility] 134 [facility] 2021-02-03 2021-02-03 Medical Grade [facility], [facility] 1.2.840.1 14 [id number] Univers 13:21:16 13:36:16 Visit AdElle hinds HEALTH 350.1.13.10 ity [facility] 4.2.7.2.686 Henry as DONTE?BLEA [phone] [facility] [address] [place] MEDICAL OFFICE [facility] 2021-02-03 2021-02-03 Outpatient R [facility] [id number] Univers 13:30:00 13:30:00 ELLE ellis [facility] 2021-02-03 2021-02-03 Telephone [facility] 1.2.840.114 [id number] Univers 00:00:00 00:00:00 [facility] 350.1.13.10 it y of [place] 4.2.7.2.686 Henry as DONTE?BLEA [phone] [facility] [address] [place] MEDICAL OFFICE [facility] 2021-01-31 2021-01-31 Outpatient P AD, [facility] [id number] Univers 16:16:00 17:53:00 ELLE ellis [facility] 2021-01-31 2021-01-31 Hospital Critical access hospital 1.2.840.114 [id number] Univers 16:16:00 17:53:00 Encounter Elle [facility] 350.1.13.10 ity [facility] 4.2.7.2.686 [place] [id number] [facility] [address] [place] 2021-01-31 2021-01-31 Outpatient Campos BENZ [facility] [id number] Univers 10:30:00 10:30:00 ARIK leonard [facility] 2021-01-30 2021-01-30 Telephone [facility] 1.2.978.524 [id number] Univers 00:00:00 00:00:00 Elle TREVIZO 350.1.13.10 ity of [facility] 4.2.7.2.686 [place] [phone] Mn dicca NAL 134 [facility] 2021-01-30 2021-01-30 [facility] 1.2.840.114 [id number] Univers 00:00:00 00:00:00 [facility] 350.1.13.10 it y of [place] 4.2.7.2.686 Henry as PROFESSIO [id number] [facility] [address] [place] OFFICE [facility] ONE 2021-01-29 2021-01-29 [facility] 1.2.840.114 [id number] Univers 00:00:00 00:00:00 [facility] 350.1.13.10 it y of [place] 4.2.7.2.686 Henry as PROFESSIO [id number] [address] ONE 2021-01-27 2021-01-27 Outpatient Campos INGRAM [facility] [id number] Univers 13:00:00 13:00:00 TEO ellis [facility] 2021-01-27 2021-01-27 [facility] 1.2.840.114 [id number] Univers 00:00:00 00:00:00 [facility] 350.1.13.10 it y of [place] 4.2.7.2.686 Henry as PROFESSIO [phone] [address] ONE 2021-01-23 2021-01-23 Outpatient R LEXIE [facility] [id number] Univers 16:00:00 17:27:00 ELLE ellis [facility] 2021-01-23 2021-01-23 Routine Adum, [facility] 1.2.840.114 [id number] Univers 15:56:29 17:27:00 Elle [place] 350.1.13.10 ity of Visit [place] 4.2.7.2.686 [place] PROFESS[place] [id number] Mn dical NAL [address] [place] [address] 2021-01-21 2021-01-21 Outpatient R ADUM, [facility] [id number] Univers 16:00:00 16:00:00 ELLE ity of [facility] 2021-01-17 2021-01-17 Telephone Ad, [facility] 1.2.209.429 [id number] Univers 00:00:00 00:00:00 Elle Trevizo 350.1.13.10 ity of [place].7.2.[place] [phone] Mn dical nal [address] [place] [address] 2021-01-17 2021-01-17 Patient Adum, [facility] 1.2.840.114 [id number] Univers 00:00:00 00:00:00 Secure Msg Elle [place] 350.1.13.10 ity of [place] 4.2.7.2.686 [place] Profess[place] [phone] Mn dical nal 134 [facility] 2021-01-15 2021-01-15 Refill [facility] 1.2.840.114 [id number] Univers 00:00:00 00:00:00 [facility] 350.1.13.10 it y of [facility] 4.2.7.2.686 Henry as Professio [phone] Mn dical nal [address] [place] [address] One 2021-01-13 2021-01-13 Refill Ad, [facility] 1.2.840.114 [id number] Univers 00:00:00 00:00:00 Elle [place] 350.1.13.10 ity of [place] 4.2.7.2.686 [place] Profess[place] [phone] Mn dical nal [address] [place] [address] 2021-01-02 2021-01-02 Telephone Ad, [facility] 1.2.699.780 [id number] Univers 00:00:00 00:00:00 Elle Trevizo 350.1.13.10 ity of [place] 4.2.7.2.686 [place] [phone] Mn dical nal 134 [facility] 2021-01-02 2021-01-02 Orders Doctor JUAN 1.2.840.114 [id number] Univers 00:00:00 00:00:00 Only Unassigned, SHAYY 350.1.13.10 ity of [place] [facility] 4.2.7.2.686 Henry as [id number] [address] 2021-01-01 2021-01-01 Telephone Adum, [facility] 1.2.511.213 [id number] Univers 00:00:00 00:00:00 Elle Trevizo 350.1.13.10 ity of [place] 4.2.7.2.686 [place] [phone] Mn dical nal 134 [facility] 2021-01-01 2021-01-01 Refill Doctor [facility] 1.2.840.114 [id number] Univers 00:00:00 00:00:00 Unassigned, Health 350.1.13.10 ity of [place] 4.2.7.2.686 [place] as Professio [id number] Mn dical nal [address] [place] [address] One 2020-12-24 2020-12-24 Laboratory Only, Ang Db Test [place] 1.2.8 40.114 [id number] Univers 17:40:30 17:55:30 Only Adum, Elle [facility] 350.1.13.10 ity of [place] 4.2.7.2.686 Henry as Donte?Blea [id number] Mn dical kney [address] [place] [facility] 2020-12-24 2020-12-24 Routine Adum, [facility] 1.2.840.114 [id number] Univers 16:33:12 17:22:08 Elle Maria [place] 350.1.13.10 ity of Visit [place] 4.2.7.2.686 [place] Profess[place] [phone] Mn dical nal 134 [facility] 2020-12-24 2020-12-24 [facility] [id number] Univers 16:00:00 16:00:00 ELLE ity of [facility] 2020-12-17 2020-12-17 Patient [facility] 1.2.840.114 [id number] Univers 00:00:00 00:00:00 Secure Msg [facility] 350.1.13.10 ity of [place] 4.2.7.2.686 [place] as Professio [phone] [address] One 2020-12-17 2020-12-17 Telephone [facility] 1.2.840.114 [id number] Univers 00:00:00 00:00:00 [facility] 350.1.13.10 it y of [place] 4.2.7.2.686 Henry as Donte?Blea [phone] [facility] estuardo [address] [place] [address] 2020-12-10 2020-12-10 Telephone Critical access hospital 1.2.299.966 [id number] Univers 00:00:00 00:00:00 Elle Trevizo 350.1.13.10 ity of [place] 4.2.7.2.686 [place] Profess[place] [phone] Mn [facility] 134 [facility] 2020-12-10 2020-12-10 Violetta Barrientos 1.2.840.114 [id number] Univers 00:00:00 00:00:00 Triage SHAYY 350.1.13.10 it y of HOSPITAL 4.2.7.2.686 [place] as [phone] [address] 2020-12-10 2020-12-10 Violetta Barrientos 1.2.840.114 [id number] Univers 00:00:00 00:00:00 Triage SHAYY 350.1.13.10 it y of HOSPITAL 4.2.7.2.686 Henry as [phone] [address] 2020-12-04 2020-12-04 [facility] 1.2.840.114 [id number] Univers 00:00:00 00:00:00 [facility] 350.1.13.10 it y of [place] 4.2.7.2.686 [place] as Professio [phone] [address] One 2020-12-04 2020-12-04 [facility] 1.2.840.114 [id number] Univers 00:00:00 00:00:00 [facility] 350.1.13.10 it y of [place] 4.2.7.2.686 [place] as Professio [phone] [address] One 2020-12-03 2020-12-03 [facility] 1.2.840.114 [id number] Univers 00:00:00 00:00:00 [facility] 350.1.13.10 it y of [place] 4.2.7.2.686 [place] Professio [phone] [address] One 2020-12-03 2020-12-03 [facility] 1.2.840.114 [id number] Univers 00:00:00 00:00:00 [facility] 350.1.13.10 it y of [place] 4.2.7.2.686 [place] Professio [phone] [address] One 2020-12-02 2020-12-02 [facility] 1.2.840.114 [id number] Univers 16:28:00 19:00:00 Encounter [place] 350.1.13.10 [place] [facility] [phone] [address] 2020-12-02 2020-12-02 [facility] 1.2.840.114 [id number] Univers 16:28:00 19:00:00 Encounter [place] 350.1.13.10 [place] 4[place].2.[place] [facility] [phone] [address] 2020-12-02 2020-12-02 Nurse Ayaka Palacios 1.2.840.114 [id number] Univers 00:00:00 00:00:00 Triage SHAYY 350.1.13.10 it y of [facility] 4.2.7.2.686 [place] as [phone] [facility] [address] 2020-12-02 2020-12-02 Orders Doctor JUAN 1.2.840.114 [id number] Univers 00:00:00 00:00:00 Only Unassigned, SHAYY 350.1.13.10 ity of [place] [facility] 4.2.7.2.686 [place] as [phone] [address] 2020-12-02 2020-12-02 RefChloe Sweet [facility] 1.2.012.818 [id number] Univers 00:00:00 00:00:00 [place] 350.1.13.10 i ty [place]7.2.[place] [phone] [facility] [address] 2020-12-02 2020-12-02 HANG Chew 1.2.840.114 [id number] Univers 00:00:00 00:00:00 Regional [facility] 350.1.13.10 it y of [facility] 4.2.7.2.686 [place] as Professio [phone] [facility] [address] [place] [address] One 2020-12-02 2020-12-02 Nurse Ayaka Palacios 1.2.840.114 [id number] Univers 00:00:00 00:00:00 Triage SHAYY 350.1.13.10 it y of [facility] 4.2.7.2.686 [place] as [phone] [facility] [address] [place] 2020-12-02 2020-12-02 Orders Doctor JUAN 1.2.840.114 [id number] Univers 00:00:00 00:00:00 Only Unassigned, SHAYY 350.1.13.10 ity of [place] [facility] 4.2.7.2.686 Henry as [phone] [facility] [address] [place] 2020-12-02 2020-12-02 RefChloe Sweet [facility] 1.2.231.307 [id number] 3124 Univers 00:00:00 00:00:00 Cam Clubb 350.1.13.10 i ty of [place] [phone] Mn dical nal 134 [facility] 2020-12-02 2020-12-02 [facility] 1.2.840.114 [id number] 467 Univers 00:00:00 00:00:00 [facility] 350.1.13.10 it y of [place] 4.2.7.2.686 [place] as Professio [phone] Mn dical nal [address] [address] One 2020-12-01 2020-12-01 Ayaka Ennis 1.2.840.114 87 [id number] Univers 00:00:00 00:00:00 Triage SHAYY 350.1.13.10 it y of HOSPITAL 4.2.7.2.686 [place] as [phone] [address] 2020-12-01 2020-12-01 Ayaka Ennis 1.2.840.114 87 [id number] Univers 00:00:00 00:00:00 Triage SHAYY 350.1.13.10 it y of HOSPITAL 4.2.7.2.686 [place] as [phone] [address] 2020-11-27 2020-11-27 Outpatient R ADUM, [facility] [id number] Univers 14:00:00 14:00:00 ELLE ity of [facility] 2020-11-26 2020-11-26 Routine Ad, [facility] 1.2.840.114 [id number] Univers 15:59:55 17:26:28 Elle L Clubb 350.1.13.10 ity of Visit [place].2.[place] [phone] Mn dical nal 134 [facility] 2020-11-26 2020-11-26 Routine Adum, [facility] 1.2.840.114 [id number] 56 Univers 15:59:55 17:26:28 Elle L Clubb 350.1.13.10 ity of Visit [place].2.7.2.[place] [phone] Mn dical nal [address] [place] [address] 2020-11-26 2020-11-26 Medical Grade Shoemaker Ultrasound, [facility] 1.2 .840.114 [id number] Univers 14:06:00 15:21:00 Visit Adam Reich CARE ATTENDANT 350.1.13.10 ity of [facility] 4.2.7.2.686 [place] as MATERNAL [phone] [facility] ical & CHILD [address] [place] [address] 2020-11-26 2020-11-26 Medical Grade Shoemaker Ultrasound, [facility] [place] 1.2 .840.114 [id number] Univers 14:06:00 15:21:00 Visit Jose Reichan Karen CARE ATTENDANT 350.1.13.10 ity of [facility] 4.2.7.2.686 [place] as MATERNAL [phone] [facility] & CHILD [address] [place] [address] 2020-11-26 2020-11-26 Outpatient P [facility] [id number] Univers 14:00:00 14:00:00 ity of [facility] 2020-11-26 2020-11-26 Telephone Critical access hospital 1.2.491.030 [id number] 8898 Univers 00:00:00 00:00:00 Elle Trevizo 350.1.13.10 ity of [place].2.[place] [phone] Mn dical [address] 2020-11-26 2020-11-26 Telephone [facility] 1.2.391.564 [id number] 8898 Univers 00:00:00 00:00:00 Elle Candace Trevizo 350.1.13.10 ity of [place] 4.2.7.2.[place] [phone] Mn dical [address] 2020-11-18 2020-11-18 Madison Benz [facility] 1.2.840.114 [id number] 877 Univers 00:00:00 00:00:00 [facility] 350.1.13.10 it y of [facility] 4.2.7.2.686 [place] as Professio [phone] Mn dical nal 044 [facility] One 2020-11-11 2020-11-11 Telephone [facility] 1.2.139.054 3250 2407 Univers 00:00:00 00:00:00 Elle Trevizo 350.1.13.10 ity of [place] 4.2.7.2.686 [place] [phone] Mn dical nal 134 [facility] 2020-11-09 2020-11-09 [facility] Chloe Reese [facility] 1.2.840.114 [id number] Univers 16:44:00 20:20:00 Encounter Raleigh Trevizo 350.1.13.10 ity of [place] 4.2.7.2.686 [place] [facility] [phone] [facility] [address] [place] 2020-11-09 2020-11-09 JUAN Iqbal 1.2.840.114 [id number] 994 Univers 00:00:00 00:00:00 Triage Karina ESTESY 350.1.13.10 it y of HOSPITAL 4.2.7.2.686 [place] as [phone] [facility] [address] [place] 2020-11-07 2020-11-07 [facility] 1.2.417.230 5448 9637 Univers 00:00:00 00:00:00 Elle Trevizo 350.1.13.10 ity of [place] 4.2.7.2.[place] [phone] Mn dical nal 134 [facility] 2020-11-05 2020-11-05 Office [facility] 1.2.840.114 [id number] Univers 15:51:46 16:06:46 Visit [facility] 350.1.13.10 it y of Surgical 4.2.7.2.686 [place] as Specialti [phone] Mn dical es 198 [facility] 2020-11-05 2020-11-05 Outpatient [facility] [id number] Univers 15:45:00 15:45:00 CARMEN it of [facility] 2020-11-02 2020-11-02 JUAN Chun 1.2.840.114 [id number] Univers 00:00:00 00:00:00 Triage Helen GARAY 350.1.13.10 it y of HOSPITAL 4.2.7.2.686 [place] as [phone] [facility] [address] 2020-11-02 2020-11-02 Telephone Juma Mcdaniels [facility] Chris 1.2.840.11 [id number] Univers 00:00:00 00:00:00 Jose 350.1.13.10 it y of [place]'s [place] [phone] [facility] [address] 2020-10-29 2020-10-29 Medical Grade Shoemaker 2, Adc Lab [facility] 1.2.840.114 [id number] Univers 14:07:34 14:22:34 Visit Adum, Elle Trevizo 350.1.13.10 ity of [place] 4.2.7.2.686 [place] [phone] Mn dical nal [address] [place] [address] 2020-10-29 2020-10-29 Outpatient R [facility] [id number] Univers 14:00:00 14:00:00 ity of [facility] 2020-10-29 2020-10-29 Refill Demar [facility] 1.2.840.114 [id number] Univers 00:00:00 00:00:00 [facility] 350.1.13.10 it y of [place] 4.2.7.2.686 [place] as Professio [phone] Mn dical nal [address] [address] One 2020-10-29 2020-10-29 Orders Doctor JUAN 1.2.840.114 [id number] Univers 00:00:00 00:00:00 Only Unassigned, SHAYY 350.1.13.10 ity of [place] [facility] 4.2.7.2.686 Henry as [phone] [facility] [address] 2020-10-25 2020-10-25 Routine Adum, [facility] 1.2.840.114 [id number] Univers 16:45:11 17:34:04 Elle Trevizo 350.1.13.10 ity of Visit [place] 4.2.7.2.[place] [phone] Mn dical nal 134 [facility] 2020-10-25 2020-10-25 Outpatient R ADUM, [facility] [id number] Univers 16:15:00 16:15:00 ELLE ity of [facility] 2020-10-19 2020-10-19 Madison Benz [facility] 1.2.840.114 [id number] 994 Univers 00:00:00 00:00:00 [facility] 350.1.13.10 it y of [place] 4.2.7.2.686 [place] as Professio [phone] Mn dical nal [address] [address] One 2020-10-18 2020-10-18 Telemedici Fellow, [facility] 1.2.840.114 [id number] Univers 14:46:12 15:16:12 ne Visit Shira Chaudhary [facility] 350.1.13.10 ity of [facility] 4.2.7.2.686 [place] [phone] [address] 2020-10-18 2020-10-18 Outpatient R [facility] [id number] Univers 13:30:00 13:30:00 ity [facility] 2020-10-16 2020-10-16 Telephone [facility] 1.2.539.314 [id number] [id number] Univers 00:00:00 00:00:00 Elle Trevizo 350.1.13.10 ity of [place] 4.2.7.2.686 [place] [phone] Mn dical nal [address] [place] [address] 2020-10-16 2020-10-16 Telephone [facility] 1.2.788.816 [id number] 7559 Univers 00:00:00 00:00:00 Elle Trevizo 350.1.13.10 ity of [place] 4.2.7.2.686 [place] [phone] Mn dical nal 134 [facility] 2020-10-08 2020-10-08 Orders Doctor MARTINEZ 1.2.840.114 [id number] Univers 00:00:00 00:00:00 Only Unassigned, SHAYY 350.1.13.10 ity of [place] [facility] 4.2.7.2.686 Henry as [phone] [facility] [address] 2020-10-04 2020-10-04 Telemedici Fellow, Navin [facility] Rmchp Mfm U NIVERSIT 1.2.840.114 [id number] Univers 08:16:56 08:46:56 ne Visit Alyssia Marx HEALTH 350. 1.13.10 ity of CLINICS 4.2.7.2.686 [place] [phone] [facility] [address] 2020-10-04 2020-10-04 Outpatient R [facility] [id number] Univers 08:30:00 08:30:00 ity of [facility] 2020-10-02 2020-10-02 Telephone [facility] 1.2.840.114 [id number] Univers 00:00:00 00:00:00 [facility] 350.1.13.10 it y of [place] 4.2.7.2.686 [place] as Professio [phone] Mn dical nal 044 [facility] 2020-09-27 2020-09-27 Routine [facility] 1.2.840.114 [id number] Univers 16:05:39 17:08:05 Elle Candace Joseline 350.1.13.10 ity of Visit [place] 4.2.7.2.686 [place] [phone] Mn dical nal 134 [facility] 2020-09-27 2020-09-27 [facility] [id number] Univers 16:00:00 16:00:00 ELLE ity of [facility] 2020-09-25 2020-09-25 Telephone [facility] 1.2.840.114 [id number] Univers 00:00:00 00:00:00 [facility] 350.1.13.10 it y of [place] 4.2.7.2.686 [place] as Professio [phone] Mn dical nal [address] [place] [address] [facility] One 2020-09-24 2020-09-24 Outpatient [facility] [id number] Univers 14:00:00 14:00:00 [facility] 2020-09-21 2020-09-21 Telemedici GoldmanGabi beckmanjanes [facility] 1.2.840 .114 [id number] Univers 17:30:22 18:00:22 ne Visit Unknown, [facility] 350.1.13.1 0 [facility] 4.2.7.2.686 [place] [phone] [facility] Branch Special[facility] Care 2020-09-21 2020-09-21 Outpatient R DRE, [facility] [id number] Univers 17:30:00 17:30:00 ATTENDING ity [facility] 2020 2020 Outpatient R DEMAR [facility] [id number] Univers 16:15:00 16:15:00 ARIK [facility] 2020 2020 Telemelainai [facility] 1.2.840.114 [id number] Univers 14:02:59 14:17:59 ne Visit [facility] 350.1.13.10 i ty of [place] 4.2.7.2.686 [place] as Professio [phone] Mn dical [facility] [address] One 2020 2020 Telephone Critical access hospital 1.2.195.437 8137 6037 Univers 00:00:00 00:00:00 Elle Candace Joseline 350.1.13.10 ity [facility] 4.2.7.2.686 [place] [phone] Mn dical nal 134 [address] Building 2020-09-19 2020-09-19 Outpatient R GONZALES [facility] [id number] Univers 17:40:00 17:40:00 JAIDEN [facility] 2020-09-19 2020-09-19 Outpatient R [facility] [id number] Univers 16:30:00 16:30:00 ity [facility] 2020-09-19 2020-09-19 [facility] 1..840.114 [id number] 862 Univers 00:00:00 00:00:00 [facility] 350.1.13.10 it y of [place] 4.2.7.2.686 [place] as Professio [phone] Mn dical nal [address] One 2020-09-19 2020-09-19 Nurse Martha Lang 1.2.840.114 [id number] Univers 00:00:00 00:00:00 Triage SHAYY 350.1.13.10 it y of HOSPITAL 4.2.7.2.686 [place] as [phone] [facility] [address] [place] 2020-09-19 2020-09-19 Nurse Violetta Clay 1.2.840.114 [id number] Univers 00:00:00 00:00:00 Triage SHAYY 350.1.13.10 it y of [facility] 4.2.7.2.686 Henry as [phone] [facility] [address] [place] 2020-09-19 2020-09-19 Patient Critical access hospital 1.2.840.114 [id number] Univers 00:00:00 00:00:00 Secure Msg Elle Trevizo 350.1.13.10 ity of [place].2.7.2.686 [place] [phone] Mn dical nal [address] [place] [address] 2020-09-19 2020-09-19 Telephone Clinic, [facility] UNIVERSIT 1.2.840.11 [id number] Univers 00:00:00 00:00:00 Neurology Y HEALTH 350.1.13.10 ity of [facility] 4.2.7.2.686 [place] [phone] [facility] [address] 2020-09-18 2020-09-18 Telephone Kalyani Martinez 1.2.012.675 [id number] 9607 Univers 00:00:00 00:00:00 Analilia Wills 350.1.13.10 ity of [place] 4.2.7.2.686 [place] [phone] [facility] [address] 2020-09-18 2020-09-18 Telephone [facility] 1.2.840.114 [id number] Univers 00:00:00 00:00:00 [facility] 350.1.13.10 it y of [place] 4.2.7.2.686 [place] as Professio [phone] [facility] [address] [place] [address] One 2020-09-18 2020-09-18 Telephone [facility] 1.2.612.980 7524 9966 Univers 00:00:00 00:00:00 Elle Trevizo 350.1.13.10 ity of [place] 4.2.7.2.686 [place] [phone] [facility] 134 [facility] 2020-09-08 2020-09-10 Hospital Tita Cortez 1.2.840.11 4 [id number] Univers 12:24:00 09:20:00 Encounter Migdalia Linares 350.1.13.10 ity of [facility] 4.2.7.2.686 [place] as [phone] [address] 2020-09-08 2020-09-08 Nurse JUAN Santos 1.2.840.114 [id number] Univers 00:00:00 00:00:00 Triage Rosy GARAY 350.1.13.10 ity of [facility] 4.2.7.2.686 [place] as [phone] [address] 2020-09-05 2020-09-05 Outpatient MAO FIGUEROA [facility] [id number] [facility] 14:30:00 14:30:00 ity of [facility] 2020-09-03 2020-09-03 [facility] 1.2.840.114 [id number] Univers 00:00:00 00:00:00 [facility] 350.1.13.10 it y of [place] 4.2.7.2.686 [place] as Professio [phone] [facility] 044 [facility] One 2020-09-03 2020-09-03 Telephone [facility] 1.2.332.080 [id number] 4451 Univers 00:00:00 00:00:00 Elle Trevizo 350.1.13.10 ity of [place] 4.2.7.2.686 [place] [phone] Mn dical [address] 2020-09-02 2020-09-02 Routine Chloe Reese [facility] 1.2.785.277 [id number] 3218 Univers 13:19:48 15:16:04 Raleigh Trevizo 350.1.13.10 ity of Visit [place] 4.2.7.2.686 [place] Profess[place] [phone] Mn dic[address] 2020-09-02 2020-09-02 Outpatient R CHLOE REESE [facility] [id number] Univers 13:15:00 13:15:00 ity of [facility] 2020-09-02 2020-09-02 Telephone [facility] 1.2.690.655 [id number] 0382 Univers 00:00:00 00:00:00 Elle Trevizo 350.1.13.10 ity of [place] 4.2.7.2.686 [place] [phone] [address] 2020-08-31 2020-08-31 Nurse Irina MARTINEZ 1.2.840.114 [id number] Univers 00:00:00 00:00:00 Triage SHAYY Guzman 350.1.13.10 ity of [facility] 4.2.7.2.686 [place] as [phone] [address] 2020-08-31 2020-08-31 JUAN Pelaez 1.2.840.114 [id number] Univers 00:00:00 00:00:00 Triage Cat Zandra SHAYY 350.1.13.10 i ty [facility] 4.2.7.2.686 [place] as [phone] [address] 2020-08-30 2020-08-30 JUAN Pelaez 1.2.840.114 [id number] Univers 00:00:00 00:00:00 Triage Cat De Paz SHAYY 350.1.13.10 i ty [facility] 4.2.7.2.686 [place] as [phone] [address] 2020-08-28 2020-08-29 Emergency Singer [facility] 1.2.086.094 [id number] 7327 Univers 20:20:00 00:01:00 Darryn Trevizo 350.1.13.10 i ty of [place] 4[place]2.7.2.[place] [facility] [phone] [address] 2020-08-27 2020-08-27 Medical Grade Shoemaker 2, Adc Lab [facility] 1.2.840.114 [id number] Univers 15:18:51 15:33:51 Visit Adum, Ellegaby Trevizo 350.1.13.10 ity of [place] 4.2.7.2.686 [place] [phone] Mn dical nal 353 [facility] 2020-08-27 2020-08-27 Routine Adum, [facility] 1.2.840.114 [id number] Univers 13:41:37 15:06:26 Elle Trevizo 350.1.13.10 ity of Visit [place] 4.2.7.2.686 [place] [phone] Mn dical nal 134 [facility] 2020-08-27 2020-08-27 Outpatient [facility] [id number] Univers 14:15:00 14:15:00 ELLE ity [facility] 2020-08-27 2020-08-27 Telephone [facility] 1.2.503.569 [id number] [id number] Univers 00:00:00 00:00:00 Elle Trevizo 350.1.13.10 ity of [place] 4.2.7.2.686 [place] [phone] Mn dical nal 134 [facility] 2020-08-22 2020-08-22 Outpatient R [facility] [id number] Univers 19:20:00 19:20:00 CALEB ity of [facility] 2020-08-22 2020-08-22 Telephone [facility] 1.2.933.908 [id number] Univers 00:00:00 00:00:00 Elle Trevizo 350.1.13.10 ity of [place] 4.2.7.2.686 [place] [phone] Mn dical nal 134 [facility] 2020-08-22 2020-08-22 Telephone Adum, [facility] 1.2.604.923 [id number] 4399 Univers 00:00:00 00:00:00 Elle Maria Clubb 350.1.13.10 ity of [place] 4.2.7.2.686 [place] [phone] Mn dical [address] 2020-08-19 2020-08-19 Refill Adum, [facility] 1.2.840.114 [id number] Univers 00:00:00 00:00:00 Elle Maria Clubb 350.1.13.10 ity of [place] 4.2.7.2.686 [place] [phone] Mn dical [address] 2020-08-09 2020-08-09 Outpatient R ADUM, [facility] [id number] Univers 14:30:00 14:30:00 ELLE ity of [facility] 2020-08-06 2020-08-06 Initial Adum, [facility] 1.2.840.114 [id number] Univers 14:28:51 16:45:44 Elle Trevizo 350.1.13.10 ity of Visit [place] 4.2.7.2.686 [place] [phone] [address] 2020-08-06 2020-08-06 Outpatient R ADUM, [facility] [id number] Univers 14:30:00 14:30:00 ELLE ity of [facility] 2020-08-06 2020-08-06 Telephone Adum, [facility] 1.2.348.875 [id number] Univers 00:00:00 00:00:00 Elle [place] 350.1.13.10 ity of [place] 4.2.7.2.686 [place] [phone] Mn dic[address] 2020-08-06 2020-08-06 Orders Doctor MARTINEZ 1.2.840.114 [id number] Univers 00:00:00 00:00:00 Only Unassigned, SHAYY 350.1.13.10 ity of [place] [facility] 4.2.7.2.686 Henry as [phone] [address] 2020-07-29 2020-07-29 [facility] 1.2.840.114 [id number] Univers 00:00:00 00:00:00 [facility] 350.1.13.10 it y of [place] 4.2.7.2.686 [place] as Professio [phone] [address] Office Building One 2020-07-29 2020-07-29 [facility] 1.2.840.114 [id number] Univers 00:00:00 00:00:00 [facility] 350.1.13.10 it y of [place] 4.2.7.2.686 [place] as Professio [phone] [address] Office [facility] One 2020-07-22 2020-07-22 Outpatient R [facility] [id number] Univers 19:00:00 19:00:00 IAIN blue [facility] 2020-07-16 2020-07-16 [facility] 1.2.840.114 [id number] Univers 00:00:00 00:00:00 [facility] 350.1.13.10 it y of [place] 4.2.7.2.686 [place] as Professio [phone] [address] One 2020-07-06 2020-07-06 [facility] 1.2.840.114 [id number] Univers 00:00:00 00:00:00 [facility] 350.1.13.10 it y of [place] 4.2.7.2.686 [place] as Professio [phone] [address] Office [facility] One 2020-07-01 2020-07-01 [facility] 1.2.840.114 [id number] Univers 00:00:00 00:00:00 [facility] 350.1.13.10 it y of [place] 4.2.7.2.686 [place] as Professio [phone] [address] Office [facility] One 2020-06-21 2020-06-21 Outpatient R DULCE [facility] [id number] Univers 16:15:00 16:15:00 ARIK [facility] 2020-06-19 2020-06-19 Orders Doctor JUAN 1.2.840.114 [id number] Univers 00:00:00 00:00:00 Only Unassigned, SHAYY 350.1.13.10 ity of [place] [facility] 4.2.7.2.686 Henry as [phone] [address] 2020-06-11 2020-06-11 Office [facility] 1.2.840.114 [id number] 773 Univers 15:35:12 15:50:12 Visit [facility] 350.1.13.10 it y of [place] 4.2.7.2.686 [place] as Professio [phone] [address] 2020-06-11 2020-06-11 Outpatient R [facility] [id number] Univers 15:30:00 15:30:00 [facility] 2020-05-30 2020-05-30 [facility] 1.2.840.114 [id number] Univers 00:00:00 00:00:00 [facility] 350.1.13.10 it y of [place] 4.2.7.2.686 [place] as Professio [phone] [address] 2020-05-27 2020-05-27 [facility] 1.2.840.114 [id number] Univers 00:00:00 00:00:00 Grant Koo Clubb 350.1.13.10 ity of [place].2.[place] [phone] [facility] 092 [facility] 2020-05-02 2020-05-02 [facility] [id number] Univers 09:50:00 09:50:00 [facility] 2020-05-02 2020-05-02 Telemedici [facility] 1.2.840.114 [id number] Univers 08:42:09 08:52:09 ne Visit [facility] 350.1.13.10 i ty of [place] 4.2.7.2.686 [place] as Professio [phone] Mn dical nal [address] [place] [address] One 2020-05-02 2020-05-02 Telephone [facility] 1.2.840.114 [id number] Univers 00:00:00 00:00:00 [facility] 350.1.13.10 it y of [place] 4.2.7.2.686 [place] as Professio [phone] Mn dicca nal [address] [place] [address] One 2020-05-02 2020-05-02 [facility] 1.2.840.114 [id number] Univers 00:00:00 00:00:00 [facility] 350.1.13.10 it y of [place] 4.2.7.2.686 [place] as Professio [phone] [address] One 2020-05-02 2020-05-02 [facility] 1.2.840.114 [id number] [id number] Univers 00:00:00 00:00:00 [facility] 350.1.13.10 it y of [place] 4.2.7.2.686 [place] as Professio [phone] [facility] nal [address] [place] [address] One 2020-05-01 2020-05-01 Emergency [facility] [id number] Univers 18:59:00 21:44:00 [place]uma [place] [id number] i [id number] [facility] [phone] [facility] [address] [place] 2020-04-28 2020-04-28 Refill [facility] [id number] Univers 00:00:00 00:00:00 [facility] [id number] it y of [place] [id number] [facility] [phone] [place] dic[place] nal [address] [place] [address] Office [facility] One 2020-04-22 2020-04-22 [facility] [id number] Univers 06:54:00 08:09:00 Encounter Aly [place] [id number] [place].2.[place] [phone] [address] 2020-04-19 2020-04-19 [facility] [id number] Univers 13:00:00 13:00:00 ALY ity [facility] 2020-04-12 2020-04-12 Refill [facility] 1.2.840.114 [id number] Univers 00:00:00 00:00:00 [facility] [id number] it y of [place] [id number] [facility] [phone] [address] One 2020-04-11 2020-04-11 Outpatient R [facility] [id number] Univers 10:30:00 10:30:00 [facility] 2020-04-11 2020-04-11 [facility] 1.2.840.114 [id number] Univers 07:27:09 07:42:09 ne [facility] 350.1.13.10 i ty of [place] 4.2.7.2.686 [place] as Professio [phone] [address] One 2020-04-11 2020-04-11 Telephone [facility] 1.2.840.114 [id number] Univers 00:00:00 00:00:00 [facility] 350.1.13.10 it y of [place] 4.2.7.2.686 [place] as Professio [phone] [address] One 2020-04-09 2020-04-09 Outpatient Campos [facility] [id number] Univers 13:00:00 13:00:00 ARIK [facility] 2020-04-08 2020-04-08 [facility] 1.2.840.114 [id number] Univers 06:58:00 08:24:00 Encounter Aly Trevizo 350.1.13.10 ity of [place] [facility] [phone] [facility] [address] 2020-04-08 2020-04-08 Orders Doctor JUAN 1.2.840.114 [id number] Univers 00:00:00 00:00:00 Only Unassigned, SHAYY 350.1.13.10 ity of [place] [facility] 4.2.7.2.686 [place] as [phone] [facility] [address] [place] 2020-04-05 2020-04-05 [facility] [id number] Univers 13:45:00 13:45:00 ALY ity [facility] 2020-04-05 2020-04-05 Medical Grade Shoemaker Danette, Adc Lab Main [facility] 1.2.8 40.114 [id number] Univers 11:46:35 12:01:35 Visit Aly Ryan 350.1.13.1 0 ity of [place] [phone] [facility] 353 [facility] 2020-04-05 2020-04-05 Laboratory Only, Adc Test [facility] 1.2.840. 114 [id number] Univers 11:44:14 11:59:14 Only Aly Ryan 350.1.13.1 0 ity of [place] [phone] [facility] [address] [place] 2020-04-05 2020-04-05 Orders Doctor JUAN 1.2.840.114 [id number] Univers 00:00:00 00:00:00 Only Unassigned, SHAYY 350.1.13.10 ity of [place] [facility] 4.2.7.2.686 [place] as [phone] [facility] [address] [place] 2020-04-05 2020-04-05 Telephone [facility] 1.2.840.114 [id number] Univers 00:00:00 00:00:00 [facility] 350.1.13.10 it y of [place] 4.2.7.2.686 [place] as Professio [phone] [address] One 2020-04-04 2020-04-04 Telephone [facility] 1.2.840.114 [id number] Univers 00:00:00 00:00:00 [facility] 350.1.13.10 it y of [place] 4.2.7.2.686 [place] as Professio [phone] [address] One 2020-04-04 2020-04-04 Patient [facility] 1.2.840.114 [id number] [facility] 00:00:00 00:00:00 Secure Msg [facility] 350.1.13.10 ity of [place] 4.2.7.2.686 [place] as Professio [phone] [address] One 2020-04-03 2020-04-03 Office [facility] 1.2.840.114 [id number] Univers 15:00:34 15:15:34 [facility] 350.1.13.10 it y of [place] 4.2.7.2.686 [place] as Professio [phone] [address] One 2020-04-03 2020-04-03 Outpatient R [facility] [id number] Univers 14:45:00 14:45:00 ARIK ity of [facility] 2020-04-03 2020-04-03 Telephone [facility] 1.2.840.114 [id number] Univers 00:00:00 00:00:00 [facility] 350.1.13.10 it y of [place] 4.2.7.2.686 [place] as Professio [phone] [address] One 2020-04-03 2020-04-03 Telephone [facility] 1.2.840.114 [id number] Univers 00:00:00 00:00:00 [facility] 350.1.13.10 it y of [place] 4.2.7.2.686 [place] as Professio [phone] Mn dical nal [address] Office Building One 2020-03-25 2020-03-25 Hospital Shelby [facility] 1.2.840.114 [id number] Univers 08:02:00 10:10:00 Encounter Aly Trevizo 350.1.13.10 ity of [place] [address] [phone] [facility] [address] [place] 2020-03-25 2020-03-25 Orders Doctor JUAN 1.2.840.114 [id number] Univers 00:00:00 00:00:00 Only Unassigned, SHAYY 350.1.13.10 ity of [facility] 4.2.7.2.686 [place] as [phone] [facility] [address] [place] 2020-03-25 2020-03-25 Nurse Irina MARTINEZ 1.2.840.114 [id number] Univers 00:00:00 00:00:00 Triage Thomas SHAYY 350.1.13.10 ity of [facility] 4.2.7.2.686 [place] as [phone] [facility] [address] [place] 2020-03-20 2020-03-20 Medical Grade Shoemaker Danette, Edy Lab Main [facility] 1.2.8 40.114 [id number] Univers 12:30:25 12:45:25 Visit Aly Ryan 350.1.13.1 0 ity of [place].2.7.2.[place] [phone] Mn dical nal 353 [facility] 2020-03-20 2020-03-20 Laboratory Only, Adc Test [facility] 1.2.840. 114 [id number] Univers 11:43:13 11:58:13 Only Aly Ryan 350.1.13.1 0 ity of [place].2.[place] [phone] [facility] [address] [place] 2020-03-20 2020-03-20 Outpatient R SHELBY [facility] [id number] Univers 11:15:00 11:15:00 ALY ity of [facility] 2020-03-20 2020-03-20 Orders Doctor JUAN 1.2.840.114 [id number] Univers 00:00:00 00:00:00 Only Unassigned, SHAYY 350.1.13.10 ity of [place] [facility] 4.2.7.2.686 [place] as [phone] [facility] [address] [place] 2020-03-12 2020-03-12 Office [facility] 1.2.840.114 [id number] Univers 14:07:40 14:22:40 [facility] 350.1.13.10 it y of [place] 4.2.7.2.686 [place] as Professio [phone] Mn dical nal [address] [place] [address] [facility] 2020-03-12 2020-03-12 Outpatient R [facility] [id number] Univers 14:15:00 14:15:00 [facility] 2020-03-12 2020-03-12 Nurse JUAN Chun 1.2.840.114 [id number] Univers 00:00:00 00:00:00 Triage Karinaalvaro GARAY 350.1.13.10 it y of HOSPITAL 4.2.7.2.686 [place] as [phone] [address] 2020-03-12 2020-03-12 Telephone [facility] 1.2.840.114 [id number] Univers 00:00:00 00:00:00 [facility] 350.1.13.10 it y of [place] 4.2.7.2.686 [place] as Professio [phone] Mn dical nal [address] [place] [address] [facility] 2020-02-14 2020-02-14 Outpatient [facility] [id number] Univers 15:30:00 15:30:00 ELLE [facility] 2020-02-12 2020-02-12 Refill [facility] 1.2.840.114 [id number] Univers 00:00:00 00:00:00 [facility] 350.1.13.10 it y of [place] 4.2.7.2.686 [place] as Professio [phone] Mn dical nal [address] [place] Office Building One 2020-01-29 2020-01-29 Telephone [facility] 1.2.840.114 [id number] Univers 00:00:00 00:00:00 Arik [facility] 350.1.13.10 it y of [place] 4.2.7.2.686 [place] as Professio [phone] Mn nancy[address] Office [facility] 2020-01-29 2020-01-29 Ref[facility] 1.2.840.114 [id number] Univers 00:00:00 00:00:00 Arik [facility] 350.1.13.10 it y of [place] 4.2.7.2.686 [place] as Professio [phone] [address] Office [facility] 2020-01-26 2020-01-26 Outpatient R [facility] [id number] Univers 16:00:00 16:00:00 [facility] 2020-01-26 2020-01-26 Medical Grade Shoemaker Lab, [facility] Pob I [facility] 1.. 840.114 [id number] Univers 09:09:02 09:16:47 Visit Arik Benz steven [facility] 350.1.13 .10 ity of [place] 4.2.7.2.686 [place] as Professio [phone] [address] Office [facility] 2020-01-26 2020-01-26 Office [facility] 1.2.840.114 [id number] Univers 08:16:33 08:31:33 Visit Arik [facility] 350.1.13.10 it y of [place] 4.2.7.2.686 [place] as Professio [phone] Mn nancy[address] Office [facility] 2020-01-26 2020-01-26 Outpatient R [facility] [id number] Univers 08:30:00 08:30:00 [facility] 2020-01-25 2020-01-25 Office [facility] 1.2.301.055 [id number] Univers 15:25:26 16:55:28 Visit Teo Trevizo 350.1.13.10 i ty of [place]2.[place].2.[place] [phone] Mn dical nal 134 [facility] 2020-01-25 2020-01-25 Outpatient R MIYATOPEHR, [facility] [id number] [id number] Univers 15:30:00 15:30:00 TEO ity [facility] 2020-01-24 2020-01-24 Outpatient R JUMA MCDANIELS [facility] [id number] Univers 14:30:00 14:30:00 ity of [facility] 2020-01-18 2020-01-18 Refill Doctor UNIVERSIT 1.2.896.042 [id number] Univers 00:00:00 00:00:00 Unassigned, [facility] 350.1.13.10 ity of [place] [facility] 4.2.7.2.[place] [phone] [facility] [address] [place] [address] 2020-01-15 2020-01-15 Refill [facility] 1.2.840.114 [id number] Univers 00:00:00 00:00:00 Maximus Trevizo 350.1.13.10 i ty of [place] 4.2.7.2.[place] [phone] Mn dical nal 044 [facility] 2020-01-12 2020-01-12 Refill [facility] 1.2.840.114 [id number] Univers 00:00:00 00:00:00 Grant Trevizo 350.1.13.10 ity of [place] 4.2.7.2.[place] [phone] Mn [facility] 092 [facility] 2019-12-15 2019-12-15 Outpatient R LEXIE, [facility] [id number] Univers 13:00:00 13:00:00 [facility] 2019-11-07 2019-11-17 Office [facility] 1.2.840.114 [id number] Univers 14:01:04 14:03:23 Visit Justin Trevizo 350.1.13.10 ity of [place] 4.2.7.2.686 [place] [phone] Mn dical nal 044 [facility] 2019-11-17 2019-11-17 Case [facility] 1.2.840.114 [id number] Univers 00:00:00 00:00:00 Management Justin Trevizo 350.1.13.10 ity of [place] 4.2.7.2.[place] [phone] Mn dical nal 044 [facility] 2019-11-14 2019-11-14 Outpatient Campos BENZ, [facility] [id number] Univers 16:30:00 16:30:00 ARIK ity [facility] 2019-11-10 2019-11-10 Telephone [facility] 1.2.840.114 [id number] Univers 00:00:00 00:00:00 Grant Trevizo 350.1.13.10 ity of [place] 4.2.7.2.686 [place] [phone] Mn dical nal 092 [facility] 2019-11-10 2019-11-10 Refill [facility] 1..840.114 [id number] Univers 00:00:00 00:00:00 Grant Trevizo 350.1.13.10 ity of [place] 4.2.7.2.686 [place] [phone] Mn dicca nal 092 [facility] 2019-11-08 2019-11-08 Outpatient Asplin_B VFP VFP [id number] 1-20 Village 11:44:00 11:44:00 [id number] Family Practic e 2019-11-08 2019-11-08 Telephone [facility] 1.2.840.114 [id number] Univers 00:00:00 00:00:00 Grant Trevizo 350.1.13.10 ity of [place].2.7.2.686 [place] [phone] Mn dical nal 092 [facility] 2019-11-07 2019-11-07 Medical Grade Shoemaker 2, Adc Lab [facility] 1.2.840.114 [id number] Univers 14:43:22 14:58:22 Visit Justin Oconnor 350.1.13. 10 ity of [place] 4.2.7.2.[place] [phone] Mn dical nal 353 [facility] 2019-11-07 2019-11-07 Outpatient R ELVIN, [facility] [id number] Univers 13:45:00 13:45:00 WONDIFUL ity o f [facility] 2019-11-05 2019-11-05 Outpatient R ONEL, [facility] [id number] Univers 16:20:00 16:20:00 CALEB ity of [facility] 2019-11-05 2019-11-05 Nurse JUAN Santos 1.2.840.114 [id number] Univers 00:00:00 00:00:00 Triage Rosy GARAY 350.1.13.10 ity of [facility] 4.2.7.2.686 [place] as [phone] [facility] [address] [place] 2019-11-03 2019-11-03 ROSEMARY Chan 1.2.840.114 [id number] Univers 00:00:00 00:00:00 [facility] 350.1.13.10 ity of [facility] 4.2.7.2.686 [place] [phone] [facility] [address] [place] 2019-11-02 2019-11-02 Patient Elvin [facility] 1.2.840.114 [id number] Univers 00:00:00 00:00:00 Secure Msg Wondicorinna Trevizo 350.1.13.10 ity of [place] 4.2.7.2.[place] [phone] Mn dical nal 044 [facility] 2019-11-01 2019-11-01 Transition Kalyani Dubois 1.2.840.114 [id number] Univers 00:00:00 00:00:00 of Care Edna Wills 350.1.13.10 ity of [place] 4.2.7.2.686 [place] [phone] [facility] 403 [place] 2019-10-31 2019-10-31 Emergency Eileen [facility] 1.2.084.190 [id number] Univers 16:01:00 18:16:00 Leroy Trevizo 350.1.13.10 i ty of [place]2.7.2.[place] [phone] [facility] 0[address] [place] 2019-10-31 2019-10-31 Telemedici Beth Kang [facility] 1.2.840 .114 [id number] Univers 05:43:53 13:27:24 ne Visit Unknown, Attending SPECIALTY 350.1.13 .10 ity of CARE 4.2.7.2.686 [facility] AT [phone] Mn dread MESSER [address] [place] [address] 2019-10-31 2019-10-31 Outpatient R UNKNOWN, [facility] [id number] Univers 10:00:00 10:00:00 ATTENDING ity of [facility] 2019-10-31 2019-10-31 Telephone [facility] 1.2.781.476 [id number] Univers 00:00:00 00:00:00 [facility] 350.1.13.10 it y of [place] 4.2.7.2.686 [place] as Professio [phone] Mn nancyca ayaan 044 [facility] 2019-10-30 2019-10-30 Telephone [facility] 1.2.081.859 [id number] Univers 00:00:00 00:00:00 [facility] 350.1.13.10 it y of [place] 4.2.7.2.686 [place] as Professio [phone] [address] 2019-10-29 2019-10-29 Emergency [facility] 1.2.752.733 [id number] Univers 20:08:00 22:13:00 Jane Trevizo 350.1.13.10 ity of [place] 4.2.7.2.686 [facility] [phone] [address] 2019-10-29 2019-10-29 Telemedici Care, Provider 12 - Adult U ent [facility] 1.2.840.114 [id number] Univers 18:20:00 18:40:00 ne Visit Unknown, Attending HEALTH 350.1.13.1 0 ity of [place] 4.2.7.2.686 [facility] [phone] [address] ([facility]) 2019-10-29 2019-10-29 Outpatient R UNKNOWN, [facility] [id number] Univers 18:20:00 18:20:00 ATTENDING ity of [facility] 2019-10-25 2019-10-25 Telephone [facility] 1.2.411.047 [id number] Univers 00:00:00 00:00:00 Tico Armenta 350.1.13.10 it y of [place] 4.2.7.2.686 [place] as Professio [phone] [address] 2019-10-25 2019-10-25 Reagandb [facility] 1.2.840.114 [id number] Univers 00:00:00 00:00:00 Maximus Trevizo 350.1.13.10 i ty of [place] 4.[place].7.2.[place] [phone] [address] 2019-10-24 2019-10-24 [facility] 1.2.840.114 [id number] Univers 16:15:00 23:59:00 Encounter Tico Trevizo 350.1.13.10 ity of [place].2.[place] [phone] [facility] [address] [place] [address] 2019-10-24 2019-10-24 Urgent Provider, [facility] 1.2.840.114 [id number] Univers 15:17:27 15:37:27 Care Tico Chi 350.1.13.10 ity of [place] 4.2.7.2.686 [place] as Professio [phone] [address] 2019-10-24 2019-10-24 Outpatient R [facility] [id number] Univers 15:20:00 15:20:00 TICO itleonard [facility] 2019-10-24 2019-10-24 Telephone [facility] 1.2.079.653 [id number] Univers 00:00:00 00:00:00 Tico Trevizo 350.1.13.10 i ty of [place] 4.2.7.2.[place] [phone] [address] 2019-10-23 2019-10-23 Outpatient Asplin_B VFP VFP [id number] 1-20 [place] 11:19:00 11:19:00 [id number] Family Practic e 2019-10-10 2019-10-10 Telephone Shelby [facility] 1.2.840.114 [id number] Univers 00:00:00 00:00:00 Aly Marcial PRIMARY 350.1.13.10 i ty of CARE 4.2.7.2.686 [place] [phone] Mn dical [address] [place] 2019-09-26 2019-09-26 Refdb [facility] 1.2.840.114 [id number] Univers 00:00:00 00:00:00 Tico Joseline 350.1.13.10 i ty of [place] 4.2.7.2.[place] [phone] Mn dical nal 044 [facility] 2019-09-16 2019-09-16 Outpatient Campos CORADO [facility] [id number] Univers 16:40:00 16:40:00 CALEB [facility] 2019-09-16 2019-09-16 Outpatient Asplin_B VFP VFP [id number] -20 [facility] 10:07:00 10:07:00 [id number] Family Practic e 2019-09-15 2019-09-15 Outpatient Campos SANTIAGO [facility] [id number] Univers 17:00:00 17:00:00 FREDIRASHMI [facility] 2019-09-08 2019-09-08 Telephone JUAN Chi 1.2.931.665 [id number] Univers 00:00:00 00:00:00 Tico GARAY 350.1.13.10 it y of HOSPITAL 4.2.7.2.686 [place] as [phone] [address] 2019-09-08 2019-09-08 Patient Doctor JUAN 1.2.840.114 [id number] Univers 00:00:00 00:00:00 Secure Msg UnassignedSHAYY 350.1.13.10 ity of [place] [facility] 4.2.7.2.686 [place] as [phone] [address] 2019-09-06 2019-09-06 Urgent Pob1, Acute Care Clinic [facility] 1. 2.840.114 [id number] Univers 16:19:19 16:39:19 Care Aparna [facility] 350.1.13.10 ity of [place] 4.2.7.2.686 [place] as [place] [phone] Mn dical [facility] [address] [place] Office Building One 2019-09-06 2019-09-06 Outpatient R [facility] [id number] Univers 16:20:00 16:20:00 ity of [facility] 2019-09-06 2019-09-06 Outpatient R [facility] [id number] Univers 11:20:00 11:20:00 ity of [facility] 2019-09-06 2019-09-06 Patient Doctor JUAN 1.2.840.114 [id number] Univers 00:00:00 00:00:00 Secure Msg Unassigned, SHAYY 350.1.13.10 [facility] 4.2.7.2.686 [place] as [phone] [facility] [address] 2019-08-23 2019-08-23 Outpatient R GRANT SHAFER [facility] [id number] Univers 15:00:00 15:00:00 GRANT SHAFER ity of [facility] 2019-08-23 2019-08-23 Telemedici HAY Shafer 1.2.840.114 [id number] Univers 08:11:53 08:41:[address] [facility] 350.1.13.10 ity of CLINICS 4.2.7.2.[place] [phone] [facility] [address] [place] 2019-08-20 2019-08-20 Outpatient R [facility] [id number] Univers 17:00:00 17:00:00 MURALI ity of [facility] 2019-08-15 2019-08-15 Transition Kalyani Dubois 1.2.840.114 [id number] Univers 00:00:00 00:00:00 of Care Edna Wills 350.1.13.10 ity of [place] 4.2.7.2.[place] [phone] [facility] [address] 2019-08-13 2019-08-13 Emergency [facility] 1.2.092.731 [id number] Univers 18:39:45 20:15:00 [place]ez [place] 350.1.13.10 ity of [place].2.[place] [phone] [facility] [address] [place] 2019-08-13 2019-08-13 Orders Doctor JUAN 1.2.840.114 [id number] Univers 00:00:00 00:00:00 Only Unassigned, SHAYY 350.1.13.10 ity of [place] [facility] 4.2.7.2.686 [place] as [phone] [facility] [address] [place] 2019-08-01 2019-08-01 Telephone [facility] 1.2.840.114 [id number] Univers 00:00:00 00:00:00 Grant Koo Joseline 350.1.13.10 ity of [place].7.2.[place] [phone] Mn [facility] 092 [facility] 2019-07-25 2019-07-25 Keily R NATALY [facility] [id number] Univers 15:00:00 15:00:00 TEO ity of [facility] 2019-07-16 2019-07-16 Telephone [facility] 1.2.288.617 [id number] Univers 00:00:00 00:00:00 Tico [place] 350.1.13.10 i ty of [place].7.2.[place] [phone] Mn dical nal 044 [facility] 2019-07-11 2019-07-11 Telephone [facility] 1.2.975.599 [id number] 0542 Univers 00:00:00 00:00:00 [facility] 350.1.13.10 it y of [place] 4.2.7.2.686 [place] as Professio [phone] Mn dical nal [address]44 [place] Office [facility] 2019-06-20 2019-06-20 Telephone [facility] 1.2.470.106 [id number] Univers 00:00:00 00:00:00 [facility] 350.1.13.10 it y of [place] 4.2.7.2.686 [place] as Professio [phone] Mn dical nal 044 [place] Office [facility] 2019-06-16 2019-06-16 Telephone [facility] 1.2.840.114 [id number] Univers 00:00:00 00:00:00 Grant Trevizo 350.1.13.10 ity of [place].2.[place] [phone] [facility] 092 [facility] 2019-06-14 2019-06-14 Outpatient R [facility] [id number] Univers 12:43:28 23:59:00 KYA ity o f [facility] 2019-06-14 2019-06-14 [facility] 1.2.840.114 [id number] Univers 12:30:00 23:59:00 Encounter Kya Trevizo 350.1.13.10 ity of [place] 4[place]2.7.2.[place] [phone] [facility] [address] [place] 2019-06-14 2019-06-14 Orders Doctor JUAN 1.2.840.114 [id number] Univers 00:00:00 00:00:00 Only Unassigned, SHAYY 350.1.13.10 ity of [place] [facility] 4.2.7.2.686 [place] as [phone] [facility] [address] [place] 2019-06-13 2019-06-13 Refill [facility] 1.2.840.114 [id number] Univers 00:00:00 00:00:00 Jose Trevizo 350.1.13.10 i ty of [place] 4.2.7.2.[place] [phone] Mn dical nal 134 [facility] 2019-06-11 2019-06-11 Patient Doctor JUAN 1.2.840.114 [id number] Univers 00:00:00 00:00:00 Secure Msg Unassigned, SHAYY 350.1.13.10 ity of [place] [facility] 4.2.7.2.686 [place] as [phone] [facility] [address] [place] 2019-06-09 2019-06-09 Telephone [facility] 1.2.840.114 [id number] Univers 00:00:00 00:00:00 Grant Gene [place] 350.1.13.10 ity of [place].2.[place] [phone] Mn dical nal 092 [facility] 2019-06-06 2019-06-06 Outpatient R NASEEM [facility] [id number] Univers 10:40:00 10:40:00 NASEEMGRANT Tejeda ity of [facility] 2019-06-06 2019-06-06 [facility] [id number] Univers 00:00:00 00:00:00 [facility] 350.1.13.10 it y of [place] 4.2.7.2.686 [place] as Professio [phone] Mn dical nal 044 [place] [facility] 2019-06-06 2019-06-06 Patient Alon [facility] 1.2.840.114 [id number] Univers 00:00:00 00:00:00 Secure Msg [facility] 350.1.13.10 ity of [place] 4.2.7.2.686 [place] as Professio [phone] Mn dical nal 044 [place] [facility] 2019-06-06 2019-06-06 Patient Doctor [facility] 1.2.840.114 [id number] Univers 00:00:00 00:00:00 Secure Msg Unassigned, Health 350.1.13.10 ity of [place] 4.2.7.2.686 [place] Professio [phone] Mn dical nal 044 [place] [facility] 2019-06-05 2019-06-05 [facility] 1.2.840.114 [id number] Univers 00:00:00 00:00:00 [facility] 350.1.13.10 it y of [place] 4.2.7.2.686 [place] as Professio [phone] Mn dical nal 044 [place] [facility] 2019-06-03 2019-06-03 Patient Doctor JUAN 1.2.840.114 [id number] Univers 00:00:00 00:00:00 Secure Msg Unassigned, SHAYY 350.1.13.10 ity of [place] [facility] 4.2.7.2.686 [place] as [phone] [address] 2019-06-02 2019-06-02 Office Alon [facility] 1.2.840.114 [id number] Univers 11:27:23 13:40:24 Visit [facility] 350.1.13.10 it y of [place] 4.2.7.2.686 [place] as Professio [phone] Mn dical nal [address] [place] [address] 2019-06-02 2019-06-02 Office Carmen Mcclain [facility] 1.2.840.114 [id number] Univers 10:14:12 10:29:12 Visit AmieOlya [facility] 350.1.13.10 ity of Surgical 4.2.7.2.686 [place] as Specialti [phone] Mn dical es 198 [facility] 2019-06-02 2019-06-02 Out[facility] [id number] Univers 10:15:00 10:15:00 OLYA ity of [facility] 2019-06-02 2019-06-02 Nurse JUAN Patel 1.2.840.114 [id number] Univers 00:00:00 00:00:00 Triage Cat GARAY 350.1.13.10 i ty of [facility] 4.2.7.2.686 [place] as [phone] [address] 2019-05-31 2019-05-31 Telephone Naseem [facility] 1.2.840.114 [id number] Univers 00:00:00 00:00:00 Grant Andersonton 350.1.13.10 ity of [place] [phone] Mn dical nal 092 [facility] 2019-05-24 2019-05-24 Patient Doctor JUAN 1.2.840.114 [id number] Univers 00:00:00 00:00:00 Secure Msstephanie UnassSHAYY ortega 350.1.13.10 ity of [place] [facility] 4.2.7.2.686 Ehnry as [phone] [address] 2019-05-17 2019-05-17 Patient Orestes [facility] 1.2.840.114 [id number] Univers 00:00:00 00:00:00 Outreach Renetta N Health 350.1.13.10 i ty of [place] 4.2.7.2.686 [place] as Professio [phone] [address] Office [address] One 2019-05-11 2019-05-11 Outpatient R [facility] [id number] Univers 13:40:00 14:48:32 PETER ity of [facility] 2019-05-11 2019-05-11 Office [facility] 1.2.840.114 [id number] Univers 13:32:39 14:48:32 Visit Maximus Joseline 350.1.13.10 i ty of [place] [phone] [address] 2019-04-26 2019-04-26 Telephone [facility] 1.2.840.114 [id number] Univers 00:00:00 00:00:00 Maximus Trevizo 350.1.13.10 i ty of [place] [phone] [address] 2019-04-25 2019-04-25 Letter Neurology UNIVERSIT 1.2.840.114 73 [id number] Univers 00:00:00 00:00:00 (Out) HEALTH 350.1.13.10 i ty of CLINICS 4[place]2.7.2.[place] [phone] [facility] [address] 2019-04-24 2019-04-24 [facility] 1.2.840.114 [id number] Univers 12:05:00 15:15:00 Encounter Olya Trevizo 350.1.13.10 ity of [place] [phone] [facility] [address] 2019-04-24 2019-04-24 Transition Kalyani Tran 1.2.840.114 [id number] Univers 00:00:00 00:00:00 of Care Inocencio Wills 350.1.13.10 ity of [place].2.7.2.[place] [phone] [facility] [address] 2019-04-18 2019-04-21 Hospital Mao Rodrigues 1.2.840.114 [id number] Univers 08:40:00 13:03:00 Encounter S Shayy 350.1.13.10 ity of [facility] 4.2.7.2.686 [place] as [phone] [facility] [address] [place] 2019-04-19 2019-04-19 Telephone Chloe Reese [facility] 1.2.840.114 [id number] Univers 00:00:00 00:00:00 Cam Joseline 350.1.13.10 i ty of [place].2.[place] [phone] Mn dical nal 134 [facility] 2019-04-18 2019-04-18 Outpatient R MAO RODRIGUES [facility] [id number] Univers 08:30:00 08:30:00 ity of [facility] 2019-04-14 2019-04-14 Office [facility] 1.2.840.114 [id number] Univers 15:40:06 16:24:42 Visit [facility] 350.1.13.10 it y of [place] 4.2.7.2.686 [place] as Professio [phone] Mn dical nal 044 [facility] 2019-04-14 2019-04-14 Patient Cyn [facility] 1.2.840.114 [id number] Univers 00:00:00 00:00:00 Outreach Glenys [facility] 350.1.13.10 ity of [place] 4.2.7.2.686 [place] as Professio [phone] Mn dical nal [address] [place] Office [facility] 2019-04-14 2019-04-14 [facility]phone [facility] 1.2.840.114 [id number] Univers 00:00:00 00:00:00 Olya L Health 350.1.13.10 it y of Surgical 4.2.7.2.686 [place] as Specialti [phone] Mn dical es 198 [facility] 2019-04-14 2019-04-14 Telephone [facility] 1.2.840.114 [id number] Univers 00:00:00 00:00:00 Maximus Trevizo 350.1.13.10 i ty of [place]2.7.2.[place] [phone] Mn dical nal 044 [facility] 2019-04-13 2019-04-13 Refdb [facility] 1.2.029.205 [id number] 2249 Univers 00:00:00 00:00:00 Teo Trevizo 350.1.13.10 i ty of [place] 4.2.7.2.[place] [phone] Mn dical nal 134 [facility] 2019-04-07 2019-04-07 Office [facility] 1.2.840.114 [id number] Univers 07:44:27 09:37:11 Visit Maximus Trevizo 350.1.13.10 i ty of [place] 4.2.7.2.[place] [phone] [facility] nal [address] [place] [address] 2019-04-07 2019-04-07 Telephone [facility] 1.2.840.114 [id number] Univers 00:00:00 00:00:00 Maximus Trevizo 350.1.13.10 i ty of [place] 4.2.7.2.686 [place] [phone] [facility] nal [address] [place] [address] 2019-04-03 2019-04-03 Outpatient O AMIE [facility] [id number] Univers 16:17:03 23:59:00 OLYA ellis [facility] 2018-12-09 2018-12-09 Telephone [facility] 1.2.840.114 [id number] Univers 00:00:00 00:00:00 Jose Trevizo 350.1.13.10 i ty of [place] 4.2.7.2.[place] [phone] [facility] nal [address] [place] [address] 2018-11-29 2018-11-29 Routine Chloe Reese [facility] 1.2.207.373 [id number] Univers 16:02:20 16:42:16 Raleigh Trevizo 350.1.13.10 ity of Visit [place] 4.2.7.2.686 [place] [phone] [address] 2018-11-25 2018-11-25 Emergency Elijah, [facility] 1.2.355.974 [id number] Univers 21:54:39 22:48:00 Ranjit Trevizo 350.1.13.10 i ty of [place] 4.2.7.2.686 [place] [phone] [address] 2018-11-25 2018-11-25 Telephone Chloe Reese [facility] 1.2.840.114 [id number] Univers 00:00:00 00:00:00 Raleigh Trevizo 350.1.13.10 i ty of [place] 4.2.7.2.[place] [phone] [address] 2018-11-25 2018-11-25 Nurse JUAN Elise 1.2.840.114 [id number] Univers 00:00:00 00:00:00 Triage Jackelinnupur GARAY 350.1.13.10 it y of [facility] 4.2.7.2.686 [place] as [phone] [facility] [address] [place] 2018-11-24 2018-11-24 Patient Kalyani Garcia 1.2.840.114 [id number] Univers 00:00:00 00:00:00 Outreach Roseanne Wills 350.1.13.10 ity of [place].2.7.2.686 [place] [phone] [facility] [address] [place] 2018-11-24 2018-11-24 Telephone Dunia [facility] 1.2.840.114 [id number] Univers 00:00:00 00:00:00 Jose Trevizo 350.1.13.10 i ty of [place] 4.2.7.2.[place] [phone] [address] 2018-11-23 2018-11-23 Emergency Singer [facility] 1.2.271.793 [id number] Univers 13:27:49 19:20:00 Darryn Trevizo 350.1.13.10 i ty of [place] 4.2.7.2.[place] [phone] [address] 2018-11-23 2018-11-23 Telephone Dunia [facility] 1.2.840.114 [id number] Univers 00:00:00 00:00:00 Jose Trevizo 350.1.13.10 i ty of [place] 4.2.7.2.686 [place] [phone] [address] 2018-11-20 2018-11-22 [facility] 1.2.840.114 [id number] Univers 15:12:00 19:15:00 Encounter Jose Trevizo 350.1.13.10 ity of [place] 4.2.7.2.686 [place] [phone] [facility] [address] [place] 2018-11-20 2018-11-20 Nurse JUAN Cortes 1.2.840.114 [id number] Univers 00:00:00 00:00:00 Triage Renettazandra GARAY 350.1.13.10 it y of [facility] 4.2.7.2.686 [place] as [phone] [facility] [address] [place] 2018-11-20 2018-11-20 Orders Doctor JUAN 1.2.840.114 [id number] Univers 00:00:00 00:00:00 Only Unassigned, SHAYY 350.1.13.10 ity of [place] [facility] 4.2.7.2.686 [place] as [phone] [facility] [address] [place] 2018-11-18 2018-11-18 Routine Diclemente, [facility] 1.2.840.114 [id number] Univers 10:21:53 11:38:24 Jose Trevizo 350.1.13.10 ity of Visit [place] 4.2.7.2.686 [place] [phone] [address] 2018-11-14 2018-11-17 Routine Diclemente, [facility] 1.2.840.114 [id number] Univers 10:03:04 13:42:26 Jose Trevizo 350.1.13.10 ity of Visit [place] 4.2.7.2.686 [place] [phone] [address] 2018-11-17 2018-11-17 Routine Diclemente, [facility] 1.2.840.114 [id number] Univers 12:09:08 13:31:39 Jose Trevizo 350.1.13.10 ity of Visit [place] 4.2.7.2.686 [place] [phone] [facility] 134 [facility] 2018-11-14 2018-11-14 [facility] Chloe Reese [facility] 1.2.840.114 [id number] Univers 21:18:00 22:45:00 Encounter Raleigh Trevizo 350.1.13.10 ity of [place] 4.2.7.2.686 [place] [phone] [facility] [address] [place] 2018-11-14 2018-11-14 [facility] 1.2.840.114 [id number] Univers 11:26:24 21:17:00 Encounter Jose Trevizo 350.1.13.10 ity of [place] 4.2.7.2.[place] [phone] [facility] [address] [place] 2018-11-14 2018-11-14 Orders Doctor JUAN 1.2.840.114 [id number] Univers 00:00:00 00:00:00 Only Unassigned, SHAYY 350.1.13.10 ity of [place] [facility] 4.2.7.2.686 [place] as [phone] [facility] [address] [place] 2018-11-14 2018-11-14 Nurse JUAN Santos 1.2.840.114 [id number] Univers 00:00:00 00:00:00 Triage Rosy S SHAYY 350.1.13.10 ity of HOSPITAL 4.2.7.2.686 [place] as [phone] [facility] [address] [place] 2018-11-14 2018-11-14 Telephone [facility] 1.2.840.114 [id number] Univers 00:00:00 00:00:00 Jose Trevizo 350.1.13.10 i ty of [place] 4.2.7.2.686 [place] [phone] [facility] 134 [facility] 2018-11-10 2018-11-11 [facility] 1.2.840.114 [id number] Univers 14:24:00 17:00:00 Encounter Jose Trevizo 350.1.13.10 ity of [place] 4.2.7.2.[place] [phone] [facility] [address] [place] 2018-11-11 2018-11-11 Case [facility] 1.2.840.114 70 [id number] Univers 00:00:00 00:00:00 Management Jose Trevizo 350.1.13.10 ity of [place] 4.2.7.2.686 [place] [phone] [address] 2018-11-10 2018-11-10 [facility] 1.2.840.114 7 [id number] Univers 10:54:59 14:23:00 Encounter Jose Trevizo 350.1.13.10 ity of [place] 4.2.7.2.[place] [phone] [facility] [address] [place] 2018-11-10 2018-11-10 Routine [facility] 1.2.840.114 70 [id number] Univers 12:45:49 13:00:49 Jose Trevizo 350.1.13.10 ity of Visit [place] 4.2.7.2.686 [place] [phone] [address] 2018-11-07 2018-11-07 Patient ROSEMARY BeattyJOAQUINA 1.2.524.880 [id number] Univers 00:00:00 00:00:00 [facility] 350.1.13.10 ity of CLINICS 4.2.7.2.[place] [phone] [address] 2018-11-07 2018-11-07 Telephone [facility] 1.2.840.114 [id number] Univers 00:00:00 00:00:00 Jose Trevizo 350.1.13.10 i ty of [place] 4.2.7.2.[place] [phone] [address] 2018-11-05 2018-11-05 Nurse JUAN Santos 1.2.840.114 [id number] Univers 00:00:00 00:00:00 Triage Rosy GARAY 350.1.13.10 ity of HOSPITAL 4.2.7.2.686 [place] as [phone] [facility] [address] 2018-11-03 2018-11-03 [facility] 1.2.840.114 [id number] Univers 10:55:07 23:59:00 Encounter Jose Trevizo 350.1.13.10 ity of [place] 4.2.7.2.686 [place] [phone] [facility] [address] [place] 2018-11-03 2018-11-03 Routine [facility] 1.2.840.114 [id number] [facility] 13:54:15 16:42:19 Jose Trevizo 350.1.13.10 ity of Visit [place] 4.2.7.2.686 [place] [phone] [facility] 134 [facility] 2018-11-01 2018-11-01 Medical Grade [place] 1, [facility] Us Room UNIVERSIT 1 .2.840.114 [id number] [facility] 13:11:27 15:24:28 Visit Tri, Bud [facility] 350.1.13.10 ity of CLINICS 4.2.7.2.[place] [phone] [facility] [address] 2018-11-01 2018-11-01 Patient Rogerio, [facility] 1.2.973.720 [id number] Univers 00:00:00 00:00:00 Secure Msg Gabby R Y [employer] 350.1.13.10 ity of CLINICS 4.2.7.2.[place] [phone] [facility] [address] 2018-11-01 2018-11-01 [facility] 1.2.840.114 [id number] Univers 00:00:00 00:00:00 Jose Trevizo 350.1.13.10 i ty of [place] 4.2.7.2.686 [place] [phone] [facility] 134 [facility] 2018-10-31 2018-10-31 [facility] 1.2.840.114 7 [id number] Univers 10:58:00 12:45:00 Encounter Belem Trevizo 350.1.13.10 ity of [place] 4.2.7.2.[place] [phone] [place] [address] [place] 2018-10-28 2018-10-28 Routine Paulie, [facility] 1.2.840.114 70 [id number] Univers 08:14:34 15:50:40 Belem Trevizo 350.1.13.10 ity of Visit [place] 4.2.7.2.686 [place] Profess [phone] Mn dical [facility] 134 [facility] 2018-10-28 2018-10-28 Hospital Chloe Reese [facility] 1.2.840.114 [id number] Univers 10:33:30 14:55:00 Encounter Belem Apodaca 350.1.13.1 0 ity of [place] 4.2.7.2.686 [place] [phone] [place] [address] [place] 2018-10-28 2018-10-28 Patient Doctor JUAN 1.2.840.114 [id number] Univers 00:00:00 00:00:00 Secure Msg Unassigned, SHAYY 350.1.13.10 ity of [place] [facility] 4.2.7.2.686 [place] as [phone] [facility] [address] 2018-10-24 2018-10-25 Routine Faculty, [facility] 1.2 .840.114 [id number] Univers 10:00:19 11:32:24 Brandee Odom CARE ATTENDANT 350.1.1 3.10 ity of Visit REGIONAL 4.2.7.2.686 [place] as MATERNAL [phone] Med ical & CHILD 107 [facility] 2018-10-25 2018-10-25 Patient HAY Beatty 1.2.608.244 [id number] Univers 00:00:00 00:00:00 Secure Msg Gabby R Y HEALTH 350.1.13.10 ity of CLINICS 4.2.7.2.[place] [phone] [facility] [address] [place] 2018-10-25 2018-10-25 Orders Doctor JUAN 1.2.840.114 [id number] Univers 00:00:00 00:00:00 Only Unassigned, SHAYY 350.1.13.10 ity of [place] [facility] 4.2.7.2.686 [place] as [phone] [facility] [address] 2018-10-24 2018-10-24 Hospital Chloe Reese [facility] 1.2.840.114 [id number] Univers 13:33:00 15:30:00 Encounter Raleigh Trevizo 350.1.13.10 ity of [place] 4.2.7.2.[place] [phone] [facility] [address] 2018-10-24 2018-10-24 Outpatient Campos ODOM BRANDEE [facility] [id number] Univers 10:00:00 11:51:01 ity of [facility] 2018-10-24 2018-10-24 Telephone Dunia [facility] 1.2.840.114 [id number] Univers 00:00:00 00:00:00 Jose Trevizo 350.1.13.10 i ty of [place] 4.2.7.2.686 [place] [phone] [facility] 134 [facility] 2018-10-24 2018-10-24 Telephone [facility] 1.2.840.114 [id number] Univers 00:00:00 00:00:00 Grant Trevizo 350.1.13.10 ity of [place] 4.2.7.2.[place] [phone] [facility] 092 [facility] 2018-10-21 2018-10-21 Medical Grade Shoemaker 1, [facility] 1.2.840.114 [id number] Univers 16:25:06 16:40:06 Visit Chloe Reese [place] Trevizo 350.1.13.10 ity of [place] 4.2.7.2.[place] [phone] [facility] [address] 2018-10-21 2018-10-21 Routine Paulie [facility] 1.2.840.114 [id number] Univers 14:13:39 16:02:12 Belem Trevizo 350.1.13.10 ity of Visit [place] 4.2.7.2.686 [place] [phone] Mn dical nal 134 [facility] 2018-10-21 2018-10-21 Orders Doctor JUAN 1.2.840.114 [id number] Univers 00:00:00 00:00:00 Only Unassigned, SHAYY 350.1.13.10 ity of [place] [facility] 4.2.7.2.686 [place] as [phone] [facility] [address] [place] 2018-10-20 2018-10-20 Hospital [facility] 1.2.840.114 7 [id number] Univers 10:59:20 23:59:00 Encounter Jose Joseline 350.1.13.10 ity of [place] 4.2.7.2.[place] [phone] [facility] [address] [place] 2018-10-12 2018-10-12 Patient Doctor JUAN 1.2.840.114 [id number] Univers 00:00:00 00:00:00 Secure Msg Unassigned, SHAYY 350.1.13.10 ity of [place] [facility] 4.2.7.2.686 [place] as [phone] [facility] [address] [place] 2018-09-30 2018-09-30 [facility] 1.2.428.701 [id number] [facility] 14:06:24 14:55:33 Visit Chris Wild Joseline 350.1.13.10 i ty of [place] 4.2.7.2.[place] [phone] [facility] 220 [facility] 2018-09-14 2018-09-14 Outpatient [facility] [id number] Univers 13:54:55 13:59:00 OLYA [facility] Results Test Description Test Time Test Comments Results Result Comments Source ACETAMINOPHEN 2022-03-11 00:28:27 Test Item Value Reference Range Interpretation Comme nts ACETAMINOP (test code = 2201861379) 10.0-30.0 L ADRIENNE (test code = ADRIENNE) Toxic: Greater than 200 ug/mL @ 4 hour post ingestion or greater than 50 ug/mL @ 12 hour post ingestion Lab Interpretation (test code = Abnormal 82493-5) [facility] 00:20:44 ALCOHOL<10mg/dL03/10/2022 6:20 PM [facility]<10 Orvbtpvh17-877 Toxic>100 Depression of SHERIFF'S DETECTIVE>400 Fatalities ReportedCHRISTUS Good Shepherd Medical Center – MarshallSALICYLATE2022-12-14 00:18:36 SALICYLATE<10mg/L105/11/2021 6:18 PM [facility] Range: ? Analgesic and Antipyretic Use ? 20- 100 mg/L ? ? Anti-Inflammatory Use ? 100-250 mg/L Toxic Range: ? Greater than 300 mg/LUnMedical Arts HospitalCOMP. METABOLIC PANEL (95101)2022-03-11 00:17:50 Test Item Value Reference Range Interpretation Comments NA (test code = 138 mmol/L 135-145 3778608998) K (test code = 4.2 mmol/L 3.5-5.0 7501976562) CL (test code = 102 mmol/L 98-108 4438976755) CO2 TOTAL (test code = 32 mmol/L 23-31 H 7919662038) AGAP (test code = 2-16 1187187920) BUN (test code = 14 mg/dL 7-23 9106893186) GLUCOSE (test code = 57 mg/dL 70-110 L 3504169769) CREATININE (test code = 0.85 mg/dL 0.50-1.04 1177322232) TOTAL BILI (test code = 0.3 mg/dL 0.1-1.1 7890359302) CALCIUM (test code = 9.8 mg/dL 8.6-10.6 3389408146) T PROTEIN (test code = 6.8 g/dL 6.3-8.2 8062541306) ALBUMIN (test code = 4.2 g/dL 3.5-5.0 4903955279) ALK PHOS (test code = 66 U/L 34-122 2860726644) ALTv (test code = 12 U/L 5-35 1742-6) AST(SGOT) (test code = 15 U/L 13-40 2852689650) eGFR (test code = mL/min/1.73m2 9192200689) ADRIENNE (test code = ADRIENNE) Association of [...] tests). Lab Interpretation Abnormal (test code = 37973-7) [facility] WITH [id number] 00:11:30 Test Item Value Reference Range Interpretation Comments WBC (test code = See_Comment [Automated 4617-2) message] The sy stem which generated this result transmitted reference range : 4.30 - 11.10 10*3/?L. The reference range was not used to interpret this result as normal/abnormal . RBC (test code = See_Comment [Automated 546-9) message] The sy stem which generated this result transmitted reference range : 3.93 - 5.25 10*6/?L. The reference range was not used to interpret this result as normal/abnormal . HGB (test code = 12.2 g/dL 11.6-15.0 048-7) HCT (test code = 40.1 % 35.7-45.2 4544-3) MCV (test code = 94.8 fL 80.6-95.5 787-2) MCH (test code = 28.8 pg 25.9-32.8 785-6) MCHC (test code = 30.4 g/dL 31.6-35.1 L 786-4) RDW-SD (test code = 48.5 fL 39.0-49.9 78206-4) RDW-CV (test code = 13.9 % 12.0-15.5 788-0) PLT (test code = See_Comment [Automated 777-3) message] The sy stem which generated this result transmitted reference range : 166 - 358 10*3/ ?L. The reference r paulina was not used to interpret this result as normal/abnormal . MPV (test code = 10.6 fL 9.5-12.9 46979-2) NRBC/100 WBC (test See_Comment [Automat ed code = 3275503725) message] The system which generated this result transmitted reference range : 0.0 - 10.0 /100 WBCs. The refer ence range was not u sed to interpret th is result as normal/abnormal . NRBC x10^3 (test code See_Comment [Auto mated = 1668950600) message] The s ystem which generated this result transmitted reference range : 10*3/?L. The reference range was not used to interpret this result as normal/abnormal . GRAN MAT (NEUT) % 62.2 % (test code = 770-8) IMM GRAN % (test code 0.30 % = 4224889002) LYMPH % (test code = 27.1 % 736-9) MONO % (test code = 7.8 % 5905-5) EOS % (test code = 1.5 % 713-8) BASO % (test code = 1.1 % 706-2) GRAN MAT x10^3(ANC) 4.56 10*3/uL 1.88-7.09 (test code = 0334276850) IMM GRAN x10^3 (test 0.00-0.06 code = 7990753852) LYMPH x10^3 (test code 1.99 10*3/uL 1.32-3.29 = 731-0) MONO x10^3 (test code 0.57 10*3/uL 0.33-0.92 = 742-7) EOS x10^3 (test code = 0.11 10*3/uL 0.03-0.39 711-2) BASO x10^3 (test code 0.08 10*3/uL 0.01-0.07 H = 704-7) Lab Interpretation Abnormal (test code = 28939-9) [facility] [id number] 23:46:00 Test Item Value Reference Range Interpretation Comments POCT PREG (test code = 1605) NEGATIVE On board controls acceptable with present C Line (test code = 3574) POCT PREG LOT # (test code = 3575) [id number] POCT PREG TEST DATE (test 06/27/2023 code = 3576) Lab Interpretation (test code = Normal 35163-0) [facility] URINALYSIS W SPECIFIC [id number] 16:50:00 Test Item Value Reference Range Interpretation [...] APPEAR (test code = clear 3267) [facility] URINALYSIS W SPECIFIC [id number] 16:50:00 Test Item Value Reference Range Interpretation [...] U APPEAR (test code = clear 3267) [facility]
--- NOTE | 2022-09-28 18:45 | EDPHYS ---
Physician Documentation [facility] Name: Sharyn Franco Age: 42 yrs Sex: Female : 1980 Arrival Date: 09/28/2022 Time: 18:12 Bed 19 Private MD: ED Physician Chris Hummel HPI: 09/28 18:46 This 42 yrs old Female presents to ER via Ambulatory with complaints of Back Injury. snw 18:46 The patient presents with pain that is acute, and an injury. The symptoms are located snw in the low back. Onset: The symptoms/episode began/occurred 2 month(s) ago, and became worse this morning, and became persistent. Location: low back area. Associated signs and symptoms: The patient has no apparent associated signs or symptoms. The problem was sustained pt with recent back fracture, multiple ED trips with narcotics, muscle relaxants, has [facility] home health but "unable to tolerate" . Severity of symptoms: At their worst the symptoms were moderate. The patient has experienced similar episodes in the past. The patient has been recently seen at the [facility] Emergency Department, for similar complaints was given a prescription for pain medications. Historical: - Allergies: 18:24 QUINOLONES; mb9 18:24 Ultram; mb9 - Home Meds: 18:24 Zoloft Oral [Active]; Synthroid Oral [Active]; mb9 - PMHx: 18:24 epilepsy; Hypothyroidism; PCOS; sciatica; Hypothyroidism; mb9 - PSHx: 18:24 None; mb9 - Immunization history:: Adult Immunizations up to date. - Social history:: Smoking status: Patient denies any tobacco usage or history of. ROS: 18:48 Eyes: Negative for injury, pain, redness, and discharge, ENT: Negative for injury, snw pain, and discharge, Neck: Negative for injury, pain, and swelling, Cardiovascular: Negative for chest pain, palpitations, and edema, Respiratory: Negative for shortness of breath, cough, wheezing, and pleuritic chest pain, Abdomen/GI: Negative for abdominal pain, nausea, vomiting, diarrhea, and constipation, : Negative for injury, bleeding, discharge, and swelling, MS/Extremity: Negative for injury and deformity, Skin: Negative for injury, rash, and discoloration, Neuro: Negative for headache, weakness, numbness, tingling, and seizure, Psych: Negative for depression, anxiety, suicide ideation, homicidal ideation, and hallucinations. 18:48 Constitutional: Positive for malaise. 18:48 Back: Positive for pain at rest, pain with movement, radiated pain, of the low back area. Exam: 18:48 Constitutional: This is a well developed, well nourished patient who is awake, alert, snw and unable to stay still. Upon gently touching lower back pt arched and cried out and said she cannot tolerate even touch while she rubbed her low back. Head/Face: Normocephalic, atraumatic. Eyes: Pupils equal round and reactive to light, extra-ocular motions intact. Lids and lashes normal. Conjunctiva and sclera are non-icteric and not injected. Cornea within normal limits. Periorbital areas with no swelling, redness, or edema. ENT: Nares patent. No nasal discharge, no septal abnormalities noted. Tympanic membranes are normal and external auditory canals are clear. Oropharynx with no redness, swelling, or masses, exudates, or evidence of obstruction, uvula midline. Mucous membranes moist. Neck: Trachea midline, no thyromegaly or masses palpated, and no cervical lymphadenopathy. Supple, full range of motion without nuchal rigidity, or vertebral point tenderness. No Meningismus. Chest/axilla: Normal chest wall appearance and motion. Nontender with no deformity. No lesions are appreciated. Cardiovascular: Regular rate and rhythm with a normal S1 and S2. No gallops, murmurs, or rubs. Normal PMI, no JVD. No pulse deficits. Respiratory: Lungs have equal breath sounds bilaterally, clear to auscultation and percussion. No rales, rhonchi or wheezes noted. No increased work of breathing, no retractions or nasal flaring. Abdomen/GI: Soft, non-tender, with normal bowel sounds. No distension or tympany. No guarding or rebound. No evidence of tenderness throughout. 18:48 Skin: Warm, dry with normal turgor. Normal color with no rashes, no lesions, and no evidence of cellulitis. MS/ Extremity: Pulses equal, no cyanosis. Neurovascular intact. Full, normal range of motion. Neuro: Awake and alert, GCS 15, oriented to person, place, time, and situation. Cranial nerves II-XII grossly intact. Motor strength 5/5 in all extremities. Sensory grossly intact. Cerebellar exam normal. Normal gait. 18:48 Back: pain, that is severe, of the lumbar area, left low back and right low back, ROM is pt not able to stay still. 18:48 Neuro: Exam negative for 18:48 Psych: Affect is animated. Vital Signs: 18:22 BP 110 / 73; Pulse 72; Resp 16; Temp 97.9; Pulse Ox 100% on R/A; Weight 47.63 kg; mb9 Height 5 ft. 5 in. ; Pain 10/10; 18:22 Body Mass Index 17.47 (47.63 kg, 165.1 cm) mb9 18:22 Pain Scale: Adult mb9 MDM: 18:34 Patient medically screened. snw 18:45 Differential diagnosis: arthritis, chronic back pain, Fatigue Fracture. Data reviewed: snw vital signs, nurses notes. I considered the following discharge prescriptions or medication management in the emergency department Medications were administered in the Emergency Department. See MAR. Counseling: I had a detailed discussion with the patient and/or guardian regarding: the historical points, exam findings, and any diagnostic results supporting the discharge/admit diagnosis, the need for outpatient follow up, neurosurgery, to return to the emergency department if symptoms worsen or persist or if there are any questions or concerns that arise at home. Special discussion: I discussed with the patient their frequent requests for pain medications. Instructions have been given, that in the best interests of the patient, further pain Rx's must come from the patient's PCP or a oil painter. Based on the history and exam findings, there is no indication for further emergent testing or inpatient evaluation. I discussed with the patient/guardian the need to see the back specialist for further evaluation of the symptoms. I discussed with the patient/guardian the need to see the primary care provider for further evaluation of the symptoms. 18:50 Special discussion: Pt called ED yesterday to see who was at ED to give pain snw medications. Today pt here for re-injury to fractured L-spine. Discussed with pt that ED visits for narcotic pain medications is just a bandaid and she needs to follow up. States she has [facility] home health and PT came to her home but she was unable to tolerate him touching her.. 19:43 ED course: I interviewed the patient in the triage area. The patient was very tearful kdr and requesting pain medication medication. I reviewed her chart and noted that she has been diagnosed with a prior L2 fracture of undetermined age in July. Since then she has had multiple visits for pain and is received from time to time narcotics. Today she was given 30 mg of Toradol and a lidocaine patch. On 21 September I believe she was also given a Dilaudid shot. I informed her that we would not give any narcotics going further. We will give her as strong of medication as we could without it being narcotics. I suggest that she follow-up with pain management at her earliest convenience. She did say she had assistance coming to help her with her personal care tomorrow. Patient was discharged with the previously issued instructions for follow-up.. Administered Medications: 18:43 CANCELLED (Inappropriate at this time; 42): Diazepam PO 5 mg PO once snw 18:55 CANCELLED (Inappropriate at this time): Lidoderm Topical Patch 5 % (700 mg/patch) 1 snw patches Topical once; leave on for 12 hours; cover most painful area; may cut into smaller pieces 18:59 Drug: Ketorolac IM 30 mg Route: IM; Site: left ventrogluteal; os 19:24 Follow up: Response: No adverse reaction eh3 18:59 Drug: Lidoderm Patch 5 % 1 patches Route: Topical; Site: affected area; os 19:24 Follow up: Response: No adverse reaction eh3 Disposition: 20:17 Co-signature as Attending Physician, Chris Hummel MD I agree with the assessment and kdr plan of care. Disposition Summary: 09/28/22 18:44 Discharge Ordered Location: Home snw Condition: Stable snw Diagnosis - Low back pain snw - Lumbago with sciatica snw Followup: snw - With: Emergency Department - When: As needed - Reason: Worsening of condition Followup: snw - With: Private Physician - When: 2 - 3 days - Reason: Recheck today's complaints, Continuance of care, Re-evaluation by your physician Discharge Instructions: - Discharge Summary Sheet snw - Acute Back Pain, Adult snw - Musculoskeletal Pain snw - How to Use Cold Therapy snw - Rehydration, Adult snw - Heat Therapy snw Forms: - Medication Reconciliation Form snw - Thank You Letter snw - Antibiotic Education snw - Prescription Opioid Use snw - [email or web address] snw Signatures: Chris Hummel MD MD kdr Waters, Shelly, ARTIFICIAL CANDY MAKER-C ARTIFICIAL CANDY MAKER-Csnw Brandee Noriega, RN RN mb9 Gertrudis Navarrete RN RN os Nighat Mckeon RN eh3 Corrections: (The following items were deleted from the chart) 18:43 18:34 Diazepam PO 5 mg PO once ordered. snw snw 18:55 18:43 Lidoderm Topical Patch 5 % (700 mg/patch) 1 patches Topical once; leave on for 12 snw hours; cover most painful area; may cut into smaller pieces ordered. snw
--- NOTE | 2022-09-28 18:45 | ER ---
Nurse's Notes [facility] Name: Sharyn Franco Age: 42 yrs Sex: Female : 1980 Arrival Date: 09/28/2022 Time: 18:12 Bed 19 Private MD: Diagnosis: Low back pain;Lumbago with sciatica Presentation: 09/28 18:22 Chief complaint: Patient states: "This morning, i hit my back on the arm rest of my mb9 couch and can't deal with the pain. They told me my L3 was broken 1.5 months ago and my back hurts really bad. Its a sharp shooting/stabbing pain.". Coronavirus screen: Vaccine status: Patient reports receiving the 2nd dose of the covid vaccine. Ebola Screen: No symptoms or risks identified at this time. Initial Sepsis Screen: Does the patient meet any 2 criteria? No. Patient's initial sepsis screen is negative. Does the patient have a suspected source of infection? No. Patient's initial sepsis screen is negative. Risk Assessment: Do you want to hurt yourself or someone else? Patient reports no desire to harm self or others. Onset of symptoms was September 28, 2022. 18:22 Method Of Arrival: Ambulatory 9 18:22 Acuity: LIS 4 mb9 Triage Assessment: 18:26 General: Appears uncomfortable, Behavior is anxious, crying. Pain: Complains of pain in mb9 back Pain radiates to right leg and left leg Quality of pain is described as sharp, shooting. Neuro: Miller Agitation-Sedation Scale (RASS): 0 - Alert and Calm Level of Consciousness is awake, alert, obeys commands, Oriented to person, place, time, situation, Appropriate for age. Derm: Skin is pink, warm \\T\\ dry. Musculoskeletal: Range of motion: intact in all extremities. Historical: - Allergies: 18:24 QUINOLONES; mb9 18:24 Ultram; mb9 - Home Meds: 18:24 Zoloft Oral [Active]; Synthroid Oral [Active]; mb9 - PMHx: 18:24 epilepsy; Hypothyroidism; PCOS; sciatica; Hypothyroidism; mb9 - PSHx: 18:24 None; mb9 - Immunization history:: Adult Immunizations up to date. - Social history:: Smoking status: Patient denies any tobacco usage or history of. Screenin:00 [facility] ED Fall Risk Assessment (Adult) Score/Fall Risk Level 0 - 2 = Low Risk. Abuse eh3 screen: Denies threats or abuse. Denies injuries from another. Nutritional screening: No deficits noted. Tuberculosis screening: No symptoms or risk factors identified. Assessment: 19:00 General: Appears in no apparent distress. uncomfortable, Behavior is cooperative. Pain: eh3 Complains of pain in low back area. Neuro: Level of Consciousness is awake, alert, obeys commands, Oriented to person, place, time, situation. Cardiovascular: Capillary refill < 3 seconds Patient's skin is warm and dry. Respiratory: Airway is patent Respiratory effort is even, unlabored, Respiratory pattern is regular, symmetrical. GI: Abdomen is round non-distended. Derm: Skin is pink, warm \\T\\ dry. Musculoskeletal: Circulation, motion, and sensation intact. Vital Signs: 18:22 BP 110 / 73; Pulse 72; Resp 16; Temp 97.9; Pulse Ox 100% on R/A; Weight 47.63 kg; mb9 Height 5 ft. 5 in. ; Pain 10/10; 18:22 Body Mass Index 17.47 (47.63 kg, 165.1 cm) mb9 18:22 Pain Scale: Adult mb9 ED Course: 18:13 Patient arrived in ED. im 18:23 Tanika Gallegos FNP-C is PHCP. snw 18:23 Chris Hummel MD is Attending Physician. snw 18:24 Triage completed. mb9 18:24 Arm band placed on. mb9 18:45 Gertrudis Navarrete, RAMÓN is Primary Nurse. os 19:00 Patient has correct armband on for positive identification. Bed in low position. Call eh3 light in reach. Side rails up X2. 19:00 Pulse ox on. NIBP on. eh3 19:00 Report received from RAMÓN Caba. eh3 19:23 No provider procedures requiring assistance completed. Patient did not have IV access eh3 during this emergency room visit. Administered Medications: 18:43 CANCELLED (Inappropriate at this time; 97/42): Diazepam PO 5 mg PO once snw 18:55 CANCELLED (Inappropriate at this time): Lidoderm Topical Patch 5 % (700 mg/patch) 1 snw patches Topical once; leave on for 12 hours; cover most painful area; may cut into smaller pieces 18:59 Drug: Ketorolac IM 30 mg Route: IM; Site: left ventrogluteal; os 19:24 Follow up: Response: No adverse reaction eh3 18:59 Drug: Lidoderm Patch 5 % 1 patches Route: Topical; Site: affected area; os 19:24 Follow up: Response: No adverse reaction eh3 Medication: 19:24 VIS not applicable for this client. eh3 Outcome: 18:44 Discharge ordered by . snw 19:24 Discharged to home via wheelchair. eh3 19:24 Condition: stable 19:24 Discharge instructions given to patient, Instructed on discharge instructions, follow up and referral plans. Demonstrated understanding of instructions, follow-up care. 19:24 Patient left the ED. eh3 Signatures: Tanika Gallegos, DRYWALL STRIPPER-C DRYWALL STRIPPER-Csnw Nighat Mckeon RN RN eh3 Brandee Noriega RN RN mb9 Gertrudis Navarrete RN RN os Jackie Romano im Corrections: (The following items were deleted from the chart) 19:09 19:00 Patient has correct armband on for positive identification. Bed in low position. eh3 Call light in reach. Side rails up X2. eh3
[2022-09-28] MEDS ORDERED: LIDOCAINE 4% PATCH ONE (19:01)
[2022-09-28] MEDS ORDERED: KETOROLAC 30 MG/ML INJ ONE (19:01)
[2022-09-28 19:56] VITALS: BP 110/73; TEMP 97.9; O2SAT 100
[2022-09-28] MEDS ORDERED: DIPHENHYDRAMINE 50 MG/ML VIAL ONE (21:11)
[2022-09-28] MEDS ORDERED: FAMOTIDINE 20 MG TAB ONE (21:12)
[2022-09-28] MEDS ORDERED: dexAMETHasone 10 MG/ML VIAL ONE (21:12)
[2022-09-28] MEDS ORDERED: IBUPROFEN 200 MG TAB PO ONE (21:12)
== END 2022-09-28 19:24 | disposition home or self-care (01) ==
LOC: ER 18:12
DX: M54.42 Lumbago with sciatica, left side (principal); M54.41 Lumbago with sciatica, right side; Z88.8 Allergy status to other drugs, medicaments and biological substances
CPT/HCPCS: 96372; 99284; J2001; J1200; J1100

== ENCOUNTER 2022-09-28 20:12 | Emergency (ER) | payer OTHER ==
--- OUTSIDE RECORDS SUMMARY | 2022-09-28 20:32 | XMS REPORT | Continuity of Care Document ---
:1980 Author Organization [facility] t Address [address] [facility] [facility] [address] [place] [address] Care Team Providers Name Role Phone Arik Benz MD Primary Care Physician ALY RYAN Attending Clinician Unavailable TEO INGRAM Attending Clinician Unavailable ARIK BENZ Attending Clinician Unavailable Arik Benz MD Attending Clinician Doctor Unassigned, [place] Attending Clinician Unavailable Donna Lopez MD Attending Clinician [phone] DONNA LOPEZ Attending Clinician Unavailable Gema Cruz LMSW Attending Clinician Teo Ingram PA-C Attending Clinician Nurse, [facility] Attending Clinician Unavailable Unknown, Attending Attending Clinician Unavailable Abril Urias RN Attending Clinician Unavailable Lab, c Attending Clinician Unavailable Elle Owen MD Attending Clinician ERIC FERNANDEZ Attending Clinician Unavailable Eric Fernandez MD Attending Clinician [phone] ADUMELLE L Attending Clinician Unavailable Avinash ANDRES, Emilia M Attending Clinician Unavailable Roby MELGAR, Helen Attending Clinician Unavailable KEITH YI Attending Clinician Unavailable Darryn Owusu DO Attending Clinician Keith Yi MD Attending Clinician Ubaldo RIGGINS, Onel Attending Clinician KIZZY SANTOS Attending Clinician Unavailable KIZZY SANTOS Attending Clinician Unavailable PATRICIA NEWELL Attending Clinician Unavailable [place] ACNPatricia Coronado Attending Clinician OLIVA STEPHENS Attending Clinician Unavailable CARMEN MCCLAIN Attending Clinician Unavailable Carmen Carlin Attending Clinician OLYA HOLLOWAY Attending Clinician Unavailable Lab, Ang - Db Attending Clinician Unavailable Chet MELGAR, Trinidad Jones Attending Clinician YOKO BRYANT Attending Clinician Unavailable Sean Meléndez MD Attending Clinician Michelle Rivera MD Attending Clinician Yamila RIGGINS, [place] Attending Clinician Annette RIGIGNS, Yoko Attending Clinician Juma Mcdaniels MD Attending [...] Adc Lab Attending Clinician Unavailable [facility], [facility] Attending Clinician Unavailable Shira Chaudhary MD M Attending Clinician Pedro Luis Couch MD, Cade Attending Clinician [phone] Myrtle Garcia Attending Clinician UNKNOWN, ATTENDING Attending Clinician Unavailable JAIDEN ROLON Attending Clinician Unavailable Rickey RN, Martha Attending Clinician Unavailable Clinic, [facility] Neurology Continuity Attending Clinician Unavail able [...] Adult Urgent Attending Clinician Unavail able Provider, [facility] Attending Clinician Unavailable TICO [...] Attending Clinician Unavailable Neurology Attending Clinician Unavailable nIocencio rTan RN Attending Clinician Unavailable Mao Rodrigues MD Attending Clinician Cyn WOOTENSWGlenys Attending Clinician Ranjit Ang Attending Clinician Jackelin Elise RN Attending Clinician Unavailable Roseanne Garcia RN Attending Clinician Unavailable Rogerio MELGAR, Gabby Gasca Attending Clinician Unavailable 1, [facility] Usg Room Attending Clinician Unavailable Bud Bartlett Attending Clinician Belem Apodaca MD Attending Clinician Faculty, [facility] Attending Clinician Unavailable Brandee Odom MD [...] Number Effective Date Expiration Date Aggie baker [facility] [id number] 2018 00:00:00 [facility] [id number] ([facility]) Problems Condition Condition Condition Status Onset Resolution Last Treating Co mments Source Name Details Category Date Date Treatment Clinician Date Attention Attention Disease Active Uni vers deficit deficit 3-13 ity of disorder disorder 00:00: [place] predominan predominan 00 Me dical t t Branch inattentiv inattentiv e type e type COVID-19 COVID-19 Disease Active Unive rs virus virus 2-07 ity [facility] infection [facility] Branch Gestationa Gestationa Disease Active 2020-03 U nivers l l 2-27 [place]ens[place] third 00 [facility] trimester trimester Bran ch 37 weeks 37 weeks Disease Active 2020-03 Unive rs gestation gestation 2-27 ity of of of 00:00: [place] 00 [facility] Non-reassu Non-reassu Disease Active 2020-03 U nivers ring ring 2-26 [place] of electronic [place] Medical monitoring monitoring Br anch tracing tracing Single Single Disease Active 2020-03 Univers liveborn, liveborn, 2-26 ity of born in born in 00:00: [facility], 00 [facility] delivered delivered Bran ch by vaginal by vaginal delivery delivery Gastroente Gastroente Disease Active 2020-03 U nivers ritis ritis 2- ity of 00:00: [place] Medical Branch Disease Active 2020-03 Univers uterine uterine 2- ity of contractio [place]io [place] Medical third third Branch trimester, trimester, antepartum antepartum Cervical Cervical Disease Active Unive rs spondylosi spondylosi 8-31 it y of s s 00:00: [place] 00 Medical Branch History of History of Disease Active U nivers pyelonephr pyelonephr 7-02 it y of itis itis 00:00: [place] during during 00 Medical Bran ch 36 weeks 36 weeks Disease Active Unive rs gestation gestation 6-13 ity of of of 00:00: [place] 00 [facility] Branch High risk High risk Disease Active Uni vers , , 6- it y of multigravi [place]igravi [place] of da of 00 Medical advanced advanced Branch maternal maternal age in age in third third trimester trimester 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 2-13 it y of ia ia 00:00: [place] 00 Medical Branch Seizure Seizure Disease Active 2020-0 Univers disorder disorder 1-21 ity of 00:00: [place] 00 Medical Branch Anxiety Anxiety Disease Active 2020-0 Univers 1-10 ity of 00:00: [place] 00 Medical Branch Gastroesop Gastroesop Disease Active 2020-0 U seraers hageal hageal 1-10 ity of reflux reflux 00:00: [place] disease disease 00 Medical without without Branch esophagiti esophagiti s s Nausea and Nausea and Disease Active 2020-0 U nivers vomiting vomiting 1-10 ity of in in 00:00: [place] 00 [facility] Branch Migraine Migraine Disease Active 2019- Unive rs with aura with aura 1-10 ity of and and 00:00: [place] without without 00 Medical status status Branch [...] of dism dism 00:00: g of this [place] 00 note Medical might be Branch different from the original. Followed by endocrino logy Ganglion Ganglion Disease Active Overview: Un [place]ank cyst cyst 09-14 Form[place] ity of 00:00: g of this [place] 00 note Medical might be Branch different from the original. 09/14/18 - seen by Dr. Holloway. Plan to have it excised pp. Positive Positive Disease Active Overview: Un [place] urine drug urine drug 08-25 Form[place] ity of screen screen 00:00: g of this [place] 00 note Medical might be Branch different [...] of , , 00:00: g of this [place] antepartum antepartum 00 note Me dical might be Branch different from the original. 08/24/18 - hypothyro idism, Synthroid 88 mcg. TSH Q8-10 weeks if normal, otherwise 3weeks after dose adjustmen ts. 08/24/18 - TSH4.05, FT4 0.85. Increase Synthroid to 112 mcg. Repeat TFTs in 3 weeks. Maternal Maternal Disease Active Unive rs obesity, obesity, 5-29 ity of ante[place] Allergies, Adverse Reactions, Alerts Allergy Allergy Status [...] mayank ES Class 1-04 ity of 00:00: [facility] Social History Social Habit Start Date Stop Date Quantity Comments Source Exposure to 2022-08-11 2022-08-21 Not sure [facility] SARS-CoV-2 00:00:00 12:22:00 [facility] (event) [place] Alcohol intake 2022-08-21 2022-08-21 Ex-drinker University 00:00:00 00:00:00 (finding) [facility] Tobacco Comment 2022-04-30 2022-04-30 N/A Universit y of 00:00:00 00:00:00 [facility] Tobacco use and 2022-04-30 2022-04-30 Smokeless tobacco Un iversity of exposure 00:00:00 00:00:00 non-user [facility] Sex Ass[birth year] At [birth year] Universit y of 00:00:00 00:00:00 [facility] Smoking Status Start Date Stop Date Source Never smoked tobacco [facility] Medications Ordered Filled Start Stop Current Ordering Indication Dosage Frequency Signature Comments Components Source Medication Medication Date Date Medication? Clinician (SIG) Name Name CLONAZEPAM Yes [id number] 1mg TAKE 1 Univers 1 mg tablet 6-28 TABLET BY ity of 00:00: MOUTH IN [place] 00 THE Medical MORNING Branch AND 1 TABLET AT NOON AND 1 TABLET IN THE EVENING. CLONAZEPAM 2022-0 Yes [id number] 1mg TAKE 1 Univers 1 mg tablet [...] Indication s: acute pain dextroamphe 3-0 Yes [id number] 20mg Take 1 Univers tamine-amph 6-07 tablet by ity of etamine 00:00: mouth in [place] (ADDERALL) 00 the Medical 20 mg morning Branch tablet and 1 tablet at noon and 1 tablet in the evening. HYDROcodone 2022-0 Yes [id number] 1{tbl} Take 1 Un mayank -acetaminop 6-07 tablet by ity of hen (NORCO) 00:00: mouth [place] 7.5-325 mg 00 every 8 Medica l per tablet (eight) Branch hours as needed for Pain. Indication s: acute pain dextroamphe 2023-0 Yes [id number] 20mg Take 1 Univers tamine-amph 6-07 tablet by ity of etamine 00:00: mouth in [place] (ADDERALL) 00 the Medical 20 mg morning Branch tablet and 1 tablet at noon and 1 tablet in the evening. HYDROcodone 2023-0 Yes [id number] 1{tbl} Take 1 Un mayank -acetaminop 6-07 tablet by ity of hen (NORCO) 00:00: mouth [place] 7.5-325 mg 00 every 8 Medica l per tablet (eight) Branch hours as needed for Pain. Indication s: acute pain dextroamphe 2023-0 Yes [id number] 20mg Take 1 Univers tamine-amph 6-07 tablet by ity of etamine 00:00: mouth in [place] (ADDERALL) 00 the Medical 20 mg morning Branch tablet and 1 tablet at noon and 1 tablet in the evening. HYDROcodone 2023-0 Yes [id number] 1{tbl} Take 1 Un mayank -acetaminop 6-07 tablet by ity of hen (NORCO) 00:00: mouth [place] 7.5-325 mg 00 every 8 Medica l per tablet (eight) Branch hours as needed for Pain. Indication s: acute pain dextroamphe 2023-0 Yes [id number] 20mg Take 1 Univers tamine-amph 6-07 tablet by ity of etamine 00:00: mouth in [place] (ADDERALL) 00 the Medical 20 mg morning Branch tablet and 1 tablet at noon and 1 tablet in the evening. HYDROcodone 2023-0 Yes [id number] 1{tbl} Take 1 Un mayank -acetaminop 6-07 tablet by ity of hen (NORCO) 00:00: mouth [place] 7.5-325 mg 00 every 8 Medica l per tablet (eight) Branch hours as needed for Pain. Indication s: acute pain dextroamphe 2023-0 Yes [id number] 20mg Take 1 Univers tamine-amph 6-07 tablet by ity of etamine 00:00: mouth in [place] (ADDERALL) 00 the Medical 20 mg morning Branch tablet and 1 tablet at noon and 1 tablet in the evening. HYDROcodone 2023-0 Yes [id number] 1{tbl} Take 1 Un mayank -acetaminop 6-07 tablet by ity of hen (NORCO) 00:00: mouth [place] 7.5-325 mg 00 every 8 Medica l per tablet (eight) Branch hours as needed for Pain. Indication s: acute pain dextroamphe 2023-0 Yes [id number] 20mg Take 1 Univers tamine-amph 6-07 tablet by ity of etamine 00:00: mouth in [place] (ADDERALL) 00 the Medical 20 mg morning Branch tablet and 1 tablet at noon and 1 tablet in the evening. HYDROcodone 2023-0 Yes [id number] 1{tbl} Take 1 Un mayank -acetaminop 6-07 tablet by ity of hen (NORCO) 00:00: mouth [place] 7.5-325 mg 00 every 8 Medica l per tablet (eight) Branch hours as needed for Pain. Indication s: acute pain dextroamphe 2023-0 Yes [id number] 20mg Take 1 Univers tamine-amph 6-07 tablet by ity of etamine 00:00: mouth in [place] (ADDERALL) 00 the Medical 20 mg morning Branch tablet and 1 tablet at noon and 1 tablet in the evening. HYDROcodone 2023-0 Yes [id number] 1{tbl} Take 1 Un mayank -acetaminop 6-07 tablet by ity of hen (NORCO) 00:00: mouth [place] 7.5-325 mg 00 every 8 Medica l per tablet (eight) Branch hours as needed for Pain. Indication s: acute pain dextroamphe 2023-0 Yes [id number] 20mg Take 1 Univers tamine-amph 6-07 tablet by ity of etamine 00:00: mouth in [place] (ADDERALL) 00 the Medical 20 mg morning Branch tablet and 1 tablet at noon and 1 tablet in the evening. dextroamphe 2023-0 Yes [id number] 20mg Take 1 Univers tamine-amph 6-07 tablet by ity of etamine 00:00: mouth in [place] (ADDERALL) 00 the Medical 20 mg morning Branch tablet and 1 tablet at noon and 1 tablet in the evening. dextroamphe 2023-0 Yes [id number] 20mg Take 1 Univers tamine-amph 6-07 tablet by ity of etamine 00:00: mouth in [place] (ADDERALL) 00 the Medical 20 mg morning Branch tablet and 1 tablet at noon and 1 tablet in the evening. dextroamphe 2023-0 Yes [id number] 20mg Take 1 Univers tamine-amph 6-07 tablet by ity of etamine 00:00: mouth in [place] (ADDERALL) 00 the Medical 20 mg morning Branch tablet and 1 tablet at noon and 1 tablet in the evening. dextroamphe 2023-0 Yes [id number] 20mg Take 1 Univers tamine-amph 6-07 tablet by ity of etamine 00:00: mouth in [place] (ADDERALL) 00 the Medical 20 mg morning [...] mouth. ity o f ORAL) 12:07: 00:00 [place] 46 :00 Medical Branch acetaminoph 2022-0 2022- No Take by Un mayank en (TYLENOL 5-26 05-26 mouth. ity o f ORAL) 12:07: 00:00 [place] 46 :00 Medical Branch acetaminoph 2022-0 2022- No Take by Un mayank en (TYLENOL 5-26 05-26 mouth. ity o f ORAL) 12:07: 00:00 [place] 46 :00 Medical Branch acetaminoph 2022-0 2022- No Take by Un mayank en (TYLENOL 5-26 05-26 mouth. ity o f ORAL) 12:07: 00:00 [place] 46 :00 Medical Branch acetaminoph 3-0 2022- No Take by Un mayank en (TYLENOL 5-26 05-26 mouth. ity o f ORAL) 12:07: 00:00 [place] 46 :00 Medical Branch gabapentin 2023-0 Yes [id number] 300mg Take 1 Univers 300 mg 5-26 capsule by ity of capsule 00:00: mouth at [place] [address] bedtime. Medical Branch gabapentin 2023-0 Yes [id number] 300mg Take 1 Univers 300 mg 5-26 capsule by ity of capsule 00:00: mouth at [place] [address] bedtime. Medical Branch gabapentin 2023-0 Yes [id number] 300mg Take 1 Univers 300 mg 5-26 capsule by ity of capsule 00:00: mouth at [place] [address] bedtime. Medical Branch gabapentin 2023-0 Yes [id number] 300mg Take 1 Univers 300 mg 5-26 capsule by ity of capsule 00:00: mouth at [place] [address] bedtime. Medical Branch gabapentin 2023-0 Yes [id number] 300mg Take 1 Univers 300 mg 5-26 capsule by ity of capsule 00:00: mouth at [place] 00 bedtime. Medical Branch gabapentin 2023-0 Yes [id number] 300mg Take 1 Univers 300 mg 5-26 capsule by ity of capsule 00:00: mouth at [place] [address] bedtime. Medical Branch gabapentin 2023-0 Yes [id number] 300mg Take 1 Univers 300 mg 5-26 capsule by ity of capsule 00:00: mouth at [place] [address] bedtime. Medical Branch gabapentin 2023-0 Yes [id number] 300mg Take 1 Univers 300 mg 5-26 capsule by ity of capsule 00:00: mouth at [place] [address] bedtime. Medical Branch gabapentin 2023-0 Yes [id number] 300mg Take 1 Univers 300 mg 5-26 capsule by ity of capsule 00:00: mouth at [place] [address] bedtime. Medical Branch gabapentin 2023-0 Yes [id number] 300mg Take 1 Univers 300 mg 5-26 capsule by ity of capsule 00:00: mouth at [place] [address] bedtime. Medical Branch gabapentin 2023-0 Yes [id number] 300mg Take 1 Univers 300 mg 5-26 capsule by ity of capsule 00:00: mouth at [place] [address] bedtime. Medical Branch gabapentin 2023-0 Yes [id number] 300mg Take 1 Univers 300 mg 5-26 capsule by ity of capsule 00:00: mouth at [place] [address] bedtime. Medical Branch gabapentin 2023-0 Yes [id number] 300mg Take 1 Univers 300 mg 5-26 capsule by ity of capsule 00:00: mouth at [place] [address] bedtime. Medical Branch gabapentin 2023-0 Yes [id number] 300mg Take 1 Univers 300 mg 5-26 capsule by ity of capsule 00:00: mouth at [place] [address] bedtime. Medical Branch gabapentin 2023-0 Yes [id number] 300mg Take 1 Univers 300 mg 5-26 capsule by ity of capsule 00:00: mouth at [place] [address] bedtime. Medical Branch gabapentin 2023-0 Yes [id number] 300mg Take 1 Univers 300 mg 5-26 capsule by ity of capsule 00:00: mouth at [place] [address] bedtime. Medical Branch gabapentin 2023-0 Yes [id number] 300mg Take 1 Univers 300 mg 5-26 capsule by ity of capsule 00:00: mouth at [place] [address] bedtime. Medical Branch gabapentin 2023-0 Yes [id number] 300mg Take 1 Univers 300 mg 5-26 capsule by ity of capsule 00:00: mouth at [place] [address] bedtime. Medical Branch gabapentin 3-0 Yes [id number] 300mg Take 1 Univers 300 mg 5-26 capsule by ity of capsule 00:00: mouth at [place] [address] bedtime. Medical Branch gabapentin 3-0 Yes [id number] 300mg Take 1 Univers 300 mg 5-26 capsule by ity of capsule 00:00: mouth at [place] [address] bedtime. Medical Branch gabapentin 3-0 Yes [id number] 300mg Take 1 Univers 300 mg 5-26 capsule by ity of capsule 00:00: mouth at [place] [address] bedtime. Medical Branch gabapentin 3-0 Yes [id number] 300mg Take 1 Univers 300 mg 5-26 capsule by ity of capsule 00:00: mouth at [place] [address] bedtime. Medical Branch gabapentin 3-0 Yes [id number] 300mg Take 1 Univers 300 mg 5-26 capsule by ity of capsule 00:00: mouth at [place] [address] bedtime. Medical Branch HYDROcodone 2022-2022- Yes [id number] 1{tbl} Take 1 U nivers -acetaminop 5-26 06-03 tablet by it y of hen (Pixelated) 00:00: 04:59 [place] 7.5-325 mg 00 :00 every 8 Medica l per tablet (eight) Branch hours as needed for Pain for up to 7 days. Indication s: acute pain HYDROcodone 2022- Yes [id number] 1{tbl} Take 1 U nivers -acetaminop 5-26 06-03 tablet by it y of hen (Pixelated) 00:00: 04:59 [place] 7.5-325 mg 00 :00 every 8 Medica l per tablet (eight) Branch hours as needed for Pain for up to 7 days. Indication s: acute pain HYDROcodone 2022- Yes 4647 1{tbl} Take 1 U nivers -acetaminop 5-26 06-03 tablet by it y of hen (Pixelated) 00:00: 04:59 [place] 7.5-325 mg 00 :00 every 8 Medica l per tablet (eight) Branch hours as needed for Pain for up to 7 days. Indication s: acute pain HYDROcodone 2022- Yes [id number] 1{tbl} Take 1 U nivers -acetaminop 5-26 06-03 tablet by it y of hen (Pixelated) 00:00: 04:59 [place] 7.5-325 mg 00 :00 every 8 Medica l per tablet (eight) Branch hours as needed for Pain for up to 7 days. Indication s: acute pain HYDROcodone 2022- Yes 4647 1{tbl} Take 1 U nivers -acetaminop 5-26 06-03 tablet by it y of hen (Pixelated) 00:00: 04:59 [place] 7.5-325 mg 00 :00 every 8 Medica l per tablet (eight) Branch hours as needed for Pain for up to 7 days. Indication s: acute pain HYDROcodone 2022- Yes 4647 1{tbl} Take 1 U nivers -acetaminop 5-26 06-03 tablet by it y of hen (Pixelated) 00:00: 04:59 [place] 7.5-325 mg 00 :00 every 8 Medica l per tablet (eight) Branch hours as needed for Pain for up to 7 days. Indication s: acute pain HYDROcodone 2022- Yes 4647 1{tbl} Take 1 U nivers -acetaminop 5-26 06-03 tablet by it y of hen (Pixelated) 00:00: 04:59 [place] 7.5-325 mg 00 :00 every 8 Medica l per tablet (eight) Branch hours as needed for Pain for up to 7 days. Indication s: acute pain HYDROcodone 2022- No 4647 1{tbl} Take 1 U nivers -acetaminop 5-26 06-01 tablet by it y of hen (Pixelated) 00:00: 00:[place] 7.5-325 mg [...] mg EC 5-25 ity of tablet 00:00: [place] 00 Medical Branch diclofenac 2023-0 Yes Univers 75 mg EC 5-25 ity of tablet 00:00: [place] 00 Medical Branch diclofenac 2023-0 Yes Univers 75 mg EC 5-25 ity of tablet 00:00: [place] 00 Medical Branch diclofenac 2023-0 Yes Univers 75 mg EC 5-25 ity of tablet 00:00: [place] 00 Medical Branch diclofenac 2023-0 Yes Univers 75 mg EC 5-25 ity of tablet 00:00: [place] 00 Medical Branch diclofenac 2023-0 Yes Univers 75 mg EC 5-25 ity of tablet 00:00: [place] 00 Medical Branch diclofenac 2023-0 Yes Univers 75 mg EC 5-25 ity of tablet 00:00: [place] 00 Medical Branch diclofenac 3-0 Yes Univers 75 mg EC 5-25 ity of tablet 00:00: [place] 00 Medical Branch diclofenac 3-0 Yes Univers 75 mg EC 5-25 ity of tablet 00:00: [place] [address] Medical Branch diclofenac 2023-0 Yes Univers 75 mg EC 5-25 ity of tablet 00:00: [place] [address] Medical Branch diclofenac 2023-0 Yes Univers 75 mg EC 5-25 ity of tablet 00:00: [place] [address] Medical Branch diclofenac 3-0 Yes Univers 75 mg EC 5-25 ity of tablet 00:00: [place] 00 Medical Branch diclofenac 3-0 Yes Univers 75 mg EC 5-25 ity of tablet 00:00: [place] 00 Medical Branch diclofenac 3-0 Yes Univers 75 mg EC 5-25 ity of tablet 00:00: [place] 00 Medical Branch diclofenac 2023-0 Yes Univers 75 mg EC 5-25 ity of tablet 00:00: [place] 00 Medical Branch diclofenac 2023-0 Yes Univers 75 mg EC 5-25 ity of tablet 00:00: [place] [address] Medical Branch diclofenac 2023-0 Yes Univers 75 mg EC 5-25 ity of tablet 00:00: [place] 00 Medical Branch diclofenac 2023-0 Yes Univers 75 mg EC 5-25 ity of tablet 00:00: [place] 00 Medical Branch diclofenac 2023-0 Yes Univers 75 mg EC 5-25 ity of tablet 00:00: [place] 00 Medical Branch diclofenac 2023-0 Yes Univers 75 mg EC 5-25 ity of tablet 00:00: [place] 00 Medical Branch predniSONE 2023-0 Yes TAKE [...] Branch NEEDED FOR PAIN SYNTHROID 2023-0 Yes [id number] TAKE 1 U nivers 150 mcg 5-21 TABLET BY ity of tablet 00:00: MOUTH [place] 00 EVERY DAY Medical IN THE Branch MORNING SYNTHROID 2023-0 Yes [id number] TAKE 1 U nivers 150 mcg 5-21 TABLET BY ity of tablet 00:00: MOUTH [place] 00 EVERY DAY Medical IN THE [place] MORNING SYNTHROID 0 Yes [id number] TAKE 1 U nivers 150 mcg 5-21 TABLET BY ity of tablet 00:00: MOUTH [place] 00 EVERY DAY Medical IN THE [place] MORNING SYNTHROID 0 Yes [id number] TAKE 1 U nivers 150 mcg 5-21 TABLET BY ity of tablet 00:00: MOUTH [place] 00 EVERY DAY Medical IN THE [place] MORNING SYNTHROID 0 Yes [id number] TAKE 1 U nivers 150 mcg 5-21 TABLET BY ity of tablet 00:00: MOUTH [place] 00 EVERY DAY Medical IN THE [facility] SYNTHROID 0 Yes [id number] TAKE 1 U nivers 150 mcg 5-21 TABLET BY ity of tablet 00:00: MOUTH [place] 00 EVERY DAY Medical IN THE [facility] SYNTHROID 0 Yes [id number] TAKE 1 U nivers 150 mcg 5-21 TABLET BY ity of tablet 00:00: MOUTH [place] 00 EVERY DAY Medical IN THE [facility] SYNTHROID 0 Yes [id number] TAKE 1 U nivers 150 mcg 5-21 TABLET BY ity of tablet 00:00: MOUTH [place] 00 EVERY DAY Medical IN THE [facility] SYNTHROID 0 Yes [id number] TAKE 1 U nivers 150 mcg 5-21 TABLET BY ity of tablet 00:00: MOUTH [place] 00 EVERY DAY Medical IN THE [facility] SYNTHROID 0 Yes [id number] TAKE 1 U nivers 150 mcg 5-21 TABLET BY ity of tablet 00:00: MOUTH [place] 00 EVERY DAY Medical IN THE [facility] SYNTHROID 0 Yes [id number] TAKE 1 U nivers 150 mcg 5-21 TABLET BY ity of tablet 00:00: MOUTH [place] 00 EVERY DAY Medical IN THE [facility] SYNTHROID 0 Yes [id number] TAKE 1 U nivers 150 mcg 5-21 TABLET BY ity of tablet 00:00: MOUTH [place] 00 EVERY DAY Medical IN THE [facility] SYNTHROID 2022-0 Yes [id number] TAKE 1 U nivers 150 mcg 5-21 TABLET BY ity of tablet 00:00: MOUTH [place] 00 EVERY DAY Medical IN THE [facility] SYNTHROID 2022-0 Yes [id number] TAKE 1 U nivers 150 mcg 5-21 TABLET BY ity of tablet 00:00: MOUTH [place] 00 EVERY DAY Medical IN THE [facility] SYNTHROID 0 Yes [id number] TAKE 1 U nivers 150 mcg 5-21 TABLET BY ity of tablet 00:00: MOUTH [place] 00 EVERY DAY Medical IN THE [facility] SYNTHROID 0 Yes [id number] TAKE 1 U nivers 150 mcg 5-21 TABLET BY ity of tablet 00:00: MOUTH [place] 00 EVERY DAY Medical IN THE [facility] SYNTHROID 0 Yes [id number] TAKE 1 U nivers 150 mcg 5-21 TABLET BY ity of tablet 00:00: MOUTH [place] 00 EVERY DAY Medical IN THE [facility] SYNTHROID 0 Yes [id number] TAKE 1 U nivers 150 mcg 5-21 TABLET BY ity of tablet 00:00: MOUTH [place] 00 EVERY DAY Medical IN THE [facility] SYNTHROID 0 Yes [id number] TAKE 1 U nivers 150 mcg 5-21 TABLET BY ity of tablet 00:00: MOUTH [place] 00 EVERY DAY Medical IN THE [facility] SYNTHROID 0 Yes [id number] TAKE 1 U nivers 150 mcg 5-21 TABLET BY ity of tablet 00:00: MOUTH [place] 00 EVERY DAY Medical IN THE [facility] SYNTHROID 0 Yes [id number] TAKE 1 U nivers 150 mcg 5-21 TABLET BY ity of tablet 00:00: MOUTH [place] 00 EVERY DAY Medical IN THE [facility] SYNTHROID 0 Yes [id number] TAKE 1 U nivers 150 mcg 5-21 TABLET BY ity of tablet 00:00: MOUTH [place] 00 EVERY DAY Medical IN THE [facility] SYNTHROID 0 Yes [id number] TAKE 1 U nivers 150 mcg 5-21 TABLET BY ity of tablet 00:00: MOUTH [place] 00 EVERY DAY Medical IN THE [facility] SYNTHROID 0 Yes [id number] TAKE 1 U nivers 150 mcg 5-21 TABLET BY ity of tablet 00:00: MOUTH [place] 00 EVERY DAY Medical IN THE [facility] SYNTHROID 2022-0 Yes [id number] TAKE 1 U nivers 150 mcg 5-21 TABLET BY ity of tablet 00:00: MOUTH [place] 00 EVERY DAY Medical IN THE [facility] SYNTHROID 2022-0 Yes [id number] TAKE 1 U nivers 150 mcg 5-21 [...] it y of tablet 00:00: 00:00 MOUTH [place] 00 :00 TWICE A Medical DAY Branch NEEDED orphenadrin 2023-0 3- No TAKE 1 Uni vers e 100 mg SR 5-14 05-26 TABLET BY it y of tablet 00:00: 00:00 MOUTH [place] 00 :00 TWICE A Medical DAY Branch NEEDED dextroamphe 2023-0 Yes [id number] 20mg Take 1 [facility] tamine-amph 5-09 tablet by ity of etamine 00:00: mouth in [place] ([facility]) 00 the Medical 20 mg morning Branch tablet and 1 tablet at noon and 1 tablet in the evening. dextroamphe 2023-0 Yes [id number] 20mg Take 1 [facility] tamine-amph 5-09 tablet by ity of etamine 00:00: mouth in [place] ([facility]) 00 the Medical 20 mg morning Branch tablet and 1 tablet at noon and 1 tablet in the evening. dextroamphe 2023-0 Yes [id number] 20mg Take 1 [facility] tamine-amph 5-09 tablet by ity of etamine 00:00: mouth in [place] ([facility]) 00 the Medical 20 mg morning Branch tablet and 1 tablet at noon and 1 tablet in the evening. dextroamphe 2023-0 Yes [id number] 20mg Take 1 [facility] tamine-amph 5-09 tablet by ity of etamine 00:00: mouth in [place] ([facility]) 00 the Medical 20 mg morning Branch tablet and 1 tablet at noon and 1 tablet in the evening. dextroamphe 2023-0 Yes [id number] 20mg Take 1 [facility] tamine-amph 5-09 tablet by ity of etamine 00:00: mouth in [place] ([facility]) 00 the Medical 20 mg morning Branch tablet and 1 tablet at noon and 1 tablet in the evening. dextroamphe 2023-0 Yes [id number] 20mg Take 1 [facility] tamine-amph 5-09 tablet by ity of etamine 00:00: mouth in [place] ([facility]) 00 the Medical 20 mg morning Branch tablet and 1 tablet at noon and 1 tablet in the evening. dextroamphe 2023-0 Yes [id number] 20mg Take 1 [facility] tamine-amph 5-09 tablet by ity of etamine 00:00: mouth in [place] ([facility]) 00 the Medical 20 mg morning Branch tablet and 1 tablet at noon and 1 tablet in the evening. dextroamphe 2023-0 Yes [id number] 20mg Take 1 [facility] tamine-amph 5-09 tablet by ity of etamine 00:00: mouth in [place] ([facility]) 00 the Medical 20 mg morning Branch tablet and 1 tablet at noon and 1 tablet in the evening. dextroamphe 2023-0 Yes [id number] 20mg Take 1 [facility] tamine-amph 5-09 tablet by ity of etamine 00:00: mouth in [place] ([facility]) 00 the Medical 20 mg morning Branch tablet and 1 tablet at noon and 1 tablet in the evening. dextroamphe 2023-0 Yes [id number] 20mg Take 1 [facility] tamine-amph 5-09 tablet by ity of etamine 00:00: mouth in [place] ([facility]) 00 the Medical 20 mg morning Branch tablet and 1 tablet at noon and 1 tablet in the evening. dextroamphe 2023-0 Yes [id number] 20mg Take 1 [facility] tamine-amph 5-09 tablet by ity of etamine 00:00: mouth in [place] ([facility]) 00 the Medical 20 mg morning Branch tablet and 1 tablet at noon and 1 tablet in the evening. dextroamphe 2023-0 Yes [id number] 20mg Take 1 [facility] tamine-amph 5-09 tablet by ity of etamine 00:00: mouth in [place] ([facility]) 00 the Medical 20 mg morning Branch tablet and 1 tablet at noon and 1 tablet in the evening. dextroamphe 2023-0 Yes [id number] 20mg Take 1 [facility] tamine-amph 5-09 tablet by ity of etamine 00:00: mouth in [place] ([facility]) 00 the Medical 20 mg morning Branch tablet and 1 tablet at noon and 1 tablet in the evening. dextroamphe 2023-0 Yes [id number] 20mg Take 1 [facility] tamine-amph 5-09 tablet by ity of etamine 00:00: mouth in [place] ([facility]) 00 the Medical 20 mg morning Branch tablet and 1 tablet at noon and 1 tablet in the evening. dextroamphe 2023-0 Yes [id number] 20mg Take 1 [facility] tamine-amph 5-09 tablet by ity of etamine 00:00: mouth in [place] ([facility]) 00 the Medical 20 mg morning Branch tablet and 1 tablet at noon and 1 tablet in the evening. dextroamphe 2023-0 Yes [id number] 20mg Take 1 [facility] tamine-amph 5-09 tablet by ity of etamine 00:00: mouth in [place] ([facility]) 00 the Medical 20 mg morning Branch tablet and 1 tablet at noon and 1 tablet in the evening. dextroamphe 2023-0 Yes [id number] 20mg Take 1 [facility] tamine-amph 5-09 tablet by ity of etamine 00:00: mouth in [place] ([facility]) 00 the Medical 20 mg morning Branch tablet and 1 tablet at noon and 1 tablet in the evening. dextroamphe 2023-0 Yes [id number] 20mg Take 1 [facility] tamine-amph 5-09 tablet by ity of etamine 00:00: mouth in [place] ([facility]) 00 the Medical 20 mg morning Branch tablet and 1 tablet at noon and 1 tablet in the evening. dextroamphe 2023-0 Yes [id number] 20mg Take 1 [facility] tamine-amph 5-09 tablet by ity of etamine 00:00: mouth in [place] ([facility]) 00 the Medical 20 mg morning Branch tablet and 1 tablet at noon and 1 tablet in the evening. dextroamphe 2023-0 Yes [id number] 20mg Take 1 [facility] tamine-amph 5-09 tablet by ity of etamine 00:00: mouth in [place] ([facility]) 00 the Medical 20 mg morning Branch tablet and 1 tablet at noon and 1 tablet in the evening. dextroamphe 2023-0 2023- No [id number] 20mg Take 1 [facility] tamine-amph 5-09 -07 tablet by it y of etamine 00:00: 00:00 mouth in [place] ([facility]) 00 :00 the Medical 20 mg morning Branch tablet and 1 tablet at noon and 1 tablet in the evening. SERTRALINE 2022-0 Yes [id number] TAKE 1 [facility] 100 mg 5-01 TABLET BY ity of tablet 00:00: MOUTH [place] 00 EVERY DAY Medical Branch SERTRALINE 3-0 Yes [id number] TAKE 1 [facility] 100 mg 5-01 TABLET BY ity of tablet 00:00: MOUTH [place] 00 EVERY DAY Medical Branch SERTRALINE 3-0 Yes [id number] TAKE 1 [facility] 100 mg 5-01 TABLET BY ity of tablet 00:00: MOUTH [place] 00 EVERY DAY Medical Branch SERTRALINE 3-0 Yes [id number] TAKE 1 [facility] 100 mg 5-01 TABLET BY ity of tablet 00:00: MOUTH [place] 00 EVERY DAY Medical Branch SERTRALINE 3-0 Yes [id number] TAKE 1 [facility] 100 mg 5-01 TABLET BY ity of tablet 00:00: MOUTH 00 EVERY DAY Medical Branch SERTRALINE 3-0 Yes [id number] TAKE 1 [facility] 100 mg 5-01 TABLET BY ity of tablet 00:00: MOUTH [place] 00 EVERY DAY Medical Branch SERTRALINE 3-0 Yes [id number] TAKE 1 [facility] 100 mg 5-01 TABLET BY ity of tablet 00:00: MOUTH [place] 00 EVERY DAY Medical Branch SERTRALINE 3-0 Yes [id number] TAKE 1 [facility] 100 mg 5-01 TABLET BY ity of tablet 00:00: MOUTH [place] 00 EVERY DAY Medical Branch SERTRALINE 3-0 Yes [id number] TAKE 1 [facility] 100 mg 5-01 TABLET BY ity of tablet 00:00: MOUTH [place] 00 EVERY DAY Medical Branch SERTRALINE 3-0 Yes [id number] TAKE 1 [facility] 100 mg 5-01 TABLET BY ity of tablet 00:00: MOUTH [place] 00 EVERY DAY Medical Branch SERTRALINE 3-0 Yes [id number] TAKE 1 [facility] 100 mg 5-01 TABLET BY ity of tablet 00:00: MOUTH [place] 00 EVERY DAY Medical Branch SERTRALINE 3-0 Yes [id number] TAKE 1 [facility] 100 mg 5-01 TABLET BY ity of tablet 00:00: MOUTH [place] 00 EVERY DAY Medical Branch SERTRALINE 2023-0 Yes [id number] TAKE 1 [facility] 100 mg 5-01 TABLET BY ity of tablet 00:00: MOUTH [place] 00 EVERY DAY Medical Branch SERTRALINE 2023-0 Yes [id number] TAKE 1 [facility] 100 mg 5-01 TABLET BY ity of tablet 00:00: MOUTH [place] 00 EVERY DAY Medical Branch SERTRALINE 2023-0 Yes [id number] TAKE 1 [facility] 100 mg 5-01 TABLET BY ity of tablet 00:00: MOUTH [place] 00 EVERY DAY Medical Branch SERTRALINE 2023-0 Yes [id number] TAKE 1 [facility] 100 mg 5-01 TABLET BY ity of tablet 00:00: MOUTH 00 EVERY DAY Medical Branch SERTRALINE 3-0 Yes [id number] TAKE 1 [facility] 100 mg 5-01 TABLET BY ity of tablet 00:00: MOUTH 00 EVERY DAY Medical Branch SERTRALINE 3-0 Yes [id number] TAKE 1 [facility] 100 mg 5-01 TABLET BY ity of tablet 00:00: MOUTH 00 EVERY DAY Medical Branch SERTRALINE 3-0 Yes [id number] TAKE 1 [facility] 100 mg 5-01 TABLET BY ity of tablet 00:00: MOUTH 00 EVERY DAY Medical Branch SERTRALINE 3-0 Yes [id number] TAKE 1 [facility] 100 mg 5-01 TABLET BY ity of tablet 00:00: MOUTH 00 EVERY DAY Medical Branch SERTRALINE 3-0 Yes [id number] TAKE 1 [facility] 100 mg 5-01 TABLET BY ity of tablet 00:00: MOUTH 00 EVERY DAY Medical Branch SERTRALINE 2023-0 Yes [id number] TAKE 1 [facility] 100 mg 5-01 TABLET BY ity of tablet 00:00: MOUTH [place] 00 EVERY DAY Medical Branch SERTRALINE 2023-0 Yes [id number] TAKE 1 [facility] 100 mg 5-01 TABLET BY ity of tablet 00:00: MOUTH 00 EVERY DAY Medical Branch SERTRALINE 2023-0 Yes [id number] TAKE 1 [facility] 100 mg 5-01 TABLET BY ity of tablet 00:00: MOUTH [place] 00 EVERY DAY Medical Branch SERTRALINE 2023-0 Yes [id number] TAKE 1 [facility] 100 mg 5-01 TABLET BY ity of tablet 00:00: MOUTH 00 EVERY DAY Medical Branch SERTRALINE 2023-0 Yes [id number] TAKE 1 [facility] 100 mg 5-01 TABLET BY ity of tablet 00:00: MOUTH [place] 00 EVERY DAY Medical Branch SERTRALINE 2023-0 Yes [id number] TAKE 1 [facility] 100 mg 5-01 TABLET BY ity of tablet 00:00: MOUTH [place] 00 EVERY DAY Medical Branch SERTRALINE 2023-0 Yes [id number] TAKE 1 [facility] 100 mg 5-01 TABLET BY ity of tablet 00:00: MOUTH 00 EVERY DAY Medical Branch SERTRALINE 2023-0 Yes [id number] TAKE 1 [facility] 100 mg 5-01 TABLET BY ity of tablet 00:00: MOUTH [place] 00 EVERY DAY Medical Branch SERTRALINE 2023-0 Yes [id number] TAKE 1 [facility] 100 mg 5-01 TABLET BY ity of tablet 00:00: MOUTH [place] 00 EVERY DAY Medical Branch SERTRALINE 2023-0 Yes [id number] TAKE 1 [facility] 100 mg 5-01 TABLET BY ity of tablet 00:00: MOUTH 00 EVERY DAY Medical Branch SERTRALINE 3-0 Yes [id number] TAKE 1 [facility] 100 mg 5-01 TABLET BY ity of tablet 00:00: MOUTH 00 EVERY DAY Medical Branch SERTRALINE 3-0 Yes [id number] TAKE 1 [facility] 100 mg 5-01 TABLET BY ity of tablet 00:00: MOUTH [place] 00 EVERY DAY Medical Branch SERTRALINE 2023-0 Yes [id number] TAKE 1 [facility] 100 mg 5-01 TABLET BY ity of tablet 00:00: MOUTH [place] 00 EVERY DAY Medical Branch SERTRALINE 2023-0 Yes [id number] TAKE 1 [facility] 100 mg 5-01 TABLET BY ity of tablet 00:00: MOUTH [place] 00 EVERY DAY Medical Branch SERTRALINE 2023-0 Yes [id number] TAKE 1 [facility] 100 mg 5-01 TABLET BY ity of tablet 00:00: MOUTH [place] 00 EVERY DAY Medical Branch clonazePAM 2023-0 Yes 1mg Take 1 Unive rs 1 mg tablet 4-23 tablet by ity of 00:00: mouth in [place] the Medical morning Branch and 1 tablet at noon and 1 tablet in the evening. clonazePAM 2023-0 Yes 1mg Take 1 Unive rs 1 mg tablet 4-23 tablet by ity of 00:00: mouth in [place] the Medical morning Branch and 1 tablet at noon and 1 tablet in the evening. clonazePAM 2023-0 Yes 1mg Take 1 Unive rs 1 mg tablet 4-23 tablet by ity of 00:00: mouth in [place] [address] the Medical morning Branch and 1 tablet at noon and 1 tablet in the evening. clonazePAM 2023-0 Yes 1mg Take 1 Unive rs 1 mg tablet 4-23 tablet by ity of 00:00: mouth in [place] [address] the Medical morning Branch and 1 tablet at noon and 1 tablet in the evening. clonazePAM 2023-0 Yes 1mg Take 1 Unive rs 1 mg tablet 4-23 tablet by ity of 00:00: mouth in [place] [address] the Medical morning Branch and 1 tablet at noon and 1 tablet in the evening. clonazePAM 2023-0 Yes 1mg Take 1 Unive rs 1 mg tablet 4-23 tablet by ity of 00:00: mouth in [place] [address] the Medical morning [place] and 1 tablet at noon and 1 tablet in the evening. clonazePAM 2023-0 Yes 1mg Take 1 Unive rs 1 mg tablet 4-23 tablet by ity of 00:00: mouth in [address] Medical morning [place] and 1 tablet at noon and 1 tablet in the evening. clonazePAM 2023-0 Yes 1mg Take 1 Unive rs 1 mg tablet 4-23 tablet by ity of 00:00: mouth in [place] [address] the Medical morning [place] and 1 tablet at noon and 1 tablet in the evening. clonazePAM 2023-0 Yes 1mg Take 1 Unive rs 1 mg tablet 4-23 tablet by ity of 00:00: mouth in [address] Medical morning [place] and 1 tablet at noon and 1 tablet in the evening. clonazePAM 2023-0 Yes 1mg Take 1 Unive rs 1 mg tablet 4-23 tablet by ity of 00:00: mouth in [place] [address] the Medical morning Branch and 1 tablet at noon and 1 tablet in the evening. clonazePAM 2023-0 Yes 1mg Take 1 Unive rs 1 mg tablet 4-23 tablet by ity of 00:00: mouth in [address] Medical morning [place] and 1 tablet at noon and 1 tablet in the evening. clonazePAM 2023-0 Yes 1mg Take 1 Unive rs 1 mg tablet 4-23 tablet by ity of 00:00: mouth in [address] Medical morning [place] and 1 tablet at noon and 1 tablet in the evening. clonazePAM 2023-0 Yes 1mg Take 1 Unive rs 1 mg tablet 4-23 tablet by ity of 00:00: mouth in [place] [address] the Medical morning Branch and 1 tablet at noon and 1 tablet in the evening. clonazePAM 2023-0 Yes 1mg Take 1 Unive rs 1 mg tablet 4-23 tablet by ity of 00:00: mouth in [place] [address] the Medical morning Branch and 1 tablet at noon and 1 tablet in the evening. clonazePAM 2023-0 Yes 1mg Take 1 Unive rs 1 mg tablet 4-23 tablet by ity of 00:00: mouth in [place] [address] the Medical morning Branch and 1 tablet at noon and 1 tablet in the evening. clonazePAM 2023-0 Yes 1mg Take 1 Unive rs 1 mg tablet 4-23 tablet by ity of 00:00: mouth in [place] [address] the Medical morning [place] and 1 tablet at noon and 1 tablet in the evening. clonazePAM 2023-0 Yes 1mg Take 1 Unive rs 1 mg tablet 4-23 tablet by ity of 00:00: mouth in [address] Medical morning [place] and 1 tablet at noon and 1 tablet in the evening. clonazePAM 2023-0 Yes 1mg Take 1 Unive rs 1 mg tablet 4-23 tablet by ity of 00:00: mouth in [place] [address] the Medical morning [place] and 1 tablet at noon and 1 tablet in the evening. clonazePAM 2023-0 Yes 1mg Take 1 Unive rs 1 mg tablet 4-23 tablet by ity of 00:00: mouth in [address] Medical morning [place] and 1 tablet at noon and 1 tablet in the evening. clonazePAM 2023-0 Yes 1mg Take 1 Unive rs 1 mg tablet 4-23 tablet by ity of 00:00: mouth in [place] [address] the Medical morning Branch and 1 tablet at noon and 1 tablet in the evening. clonazePAM 2023-0 Yes 1mg Take 1 Unive rs 1 mg tablet 4-23 tablet by ity of 00:00: mouth in [address] Medical morning [place] and 1 tablet at noon and 1 tablet in the evening. clonazePAM 2023-0 Yes 1mg Take 1 Unive rs 1 mg tablet 4-23 tablet by ity of 00:00: mouth in [address] Medical morning [place] and 1 tablet at noon and 1 tablet in the evening. clonazePAM 2023-0 Yes 1mg Take 1 Unive rs 1 mg tablet 4-23 tablet by ity of 00:00: mouth in [place] [address] the Medical morning Branch and 1 tablet at noon and 1 tablet in the evening. clonazePAM 2023-0 Yes 1mg Take 1 Unive rs 1 mg tablet 4-23 tablet by ity of 00:00: mouth in [place] [address] the Medical morning Branch and 1 tablet at noon and 1 tablet in the evening. clonazePAM 2023-0 Yes 1mg Take 1 Unive rs 1 mg tablet 4-23 tablet by ity of 00:00: mouth in [place] [address] the Medical morning Branch and 1 tablet at noon and 1 tablet in the evening. clonazePAM 2023-0 Yes 1mg Take 1 Unive rs 1 mg tablet 4-23 tablet by ity of 00:00: mouth in [place] [address] the Medical morning Branch and 1 tablet at noon and 1 tablet in the evening. clonazePAM 2023-0 Yes 1mg Take 1 Unive rs 1 mg tablet 4-23 tablet by ity of 00:00: mouth in [place] [address] the Medical morning Branch and 1 tablet at noon and 1 tablet in the evening. clonazePAM 2023-0 Yes 1mg Take 1 Unive rs 1 mg tablet 4-23 tablet by ity of 00:00: mouth in [place] [address] the Medical morning Branch and 1 tablet at noon and 1 tablet in the evening. clonazePAM 2023-0 Yes 1mg Take 1 Unive rs 1 mg tablet 4-23 tablet by ity of 00:00: mouth in [place] [address] the Medical morning [place] and 1 tablet at noon and 1 tablet in the evening. clonazePAM 2023-0 Yes 1mg Take 1 Unive rs 1 mg tablet 4-23 tablet by ity of 00:00: mouth in [place] [address] the Medical morning Branch and 1 tablet at noon and 1 tablet in the evening. clonazePAM 2023-0 Yes 1mg Take 1 Unive rs 1 mg tablet 4-23 tablet by ity of 00:00: mouth in [place] [address] the Medical morning Branch and 1 tablet at noon and 1 tablet in the evening. clonazePAM 2023-0 2023- No 1mg Take 1 Univ ers 1 mg tablet 4-23 06-28 tablet by it y of 00:00: 00:00 mouth in [place] 00 :00 the Medical morning Branch and 1 tablet at noon and 1 tablet in the evening. dextroamphe 2023-0 Yes [id number] 20mg Take 1 [facility] tamine-amph 3-30 tablet by ity of etamine 00:00: mouth in [place] [facility] the Medical 20 mg morning Branch tablet and 1 tablet at noon and 1 tablet in the evening. dextroamphe 2023-0 Yes [id number] 20mg Take 1 [facility] tamine-amph 3-30 tablet by ity of etamine 00:00: mouth in [place] [facility] the Medical 20 mg morning Branch tablet and 1 tablet at noon and 1 tablet in the evening. dextroamphe 2023-0 Yes [id number] 20mg Take 1 [facility] tamine-amph 3-30 tablet by ity of etamine 00:00: mouth in [place] ([facility]) 00 the Medical 20 mg morning Branch tablet and 1 tablet at noon and 1 tablet in the evening. dextroamphe 2023-0 Yes [id number] 20mg Take 1 [facility] tamine-amph 3-30 tablet by ity of etamine 00:00: mouth in [place] ([facility]) 00 the Medical 20 mg morning Branch tablet and 1 tablet at noon and 1 tablet in the evening. dextroamphe 2023-0 Yes [id number] 20mg Take 1 [facility] tamine-amph 3-30 tablet by ity of etamine 00:00: mouth in [place] ([facility]) 00 the Medical 20 mg morning Branch tablet and 1 tablet at noon and 1 tablet in the evening. dextroamphe 2023-0 Yes [id number] 20mg Take 1 [facility] tamine-amph 3-30 tablet by ity of etamine 00:00: mouth in [place] ([facility]) 00 the Medical 20 mg morning Branch tablet and 1 tablet at noon and 1 tablet in the evening. dextroamphe 2023-0 Yes [id number] 20mg Take 1 [facility] tamine-amph 3-30 tablet by ity of etamine 00:00: mouth in [place] [facility] 00 the Medical 20 mg morning Branch tablet and 1 tablet at noon and 1 tablet in the evening. dextroamphe 2023-0 Yes [id number] 20mg Take 1 [facility] tamine-amph 3-30 tablet by ity of etamine 00:00: mouth in [place] ([facility]) 00 the Medical 20 mg morning Branch tablet and 1 tablet at noon and 1 tablet in the evening. dextroamphe 2023-0 Yes [id number] 20mg Take 1 [facility] tamine-amph 3-30 tablet by ity of etamine 00:00: mouth in [place] ([facility]) 00 the Medical 20 mg morning Branch tablet and 1 tablet at noon and 1 tablet in the evening. dextroamphe 2023-0 Yes [id number] 20mg Take 1 [facility] tamine-amph 3-30 tablet by ity of etamine 00:00: mouth in [place] ([facility]) 00 the Medical 20 mg morning Branch tablet and 1 tablet at noon and 1 tablet in the evening. dextroamphe 3-0 3- No [id number] 20mg Take 1 [facility] tamine-amph 3-30 05-09 tablet by it y of etamine 00:00: 00:00 mouth in [place] ([facility]) 00 :00 the Medical 20 mg morning Branch tablet and 1 tablet at noon and 1 tablet in the evening. dextroamphe 3-0 3- No [id number] 20mg Take 1 [facility] tamine-amph 3-30 05-09 tablet by it y of etamine 00:00: 00:00 mouth in [place] ([facility]) 00 :00 the Medical 20 mg morning Branch tablet and 1 tablet at noon and 1 tablet in the evening. ZONISAMIDE 2023-0 Yes [id number] TAKE 1 [facility] 100 mg 3-27 CAPSULE BY ity of capsule 00:00: MOUTH [place] 00 TWICE A Medical DAY Branch ZONISAMIDE 2023-0 Yes [id number] TAKE 1 [facility] 100 mg 3-27 CAPSULE BY ity of capsule 00:00: MOUTH [place] 00 TWICE A Medical DAY Branch ZONISAMIDE 2023-0 Yes [id number] TAKE 1 [facility] 100 mg 3-27 CAPSULE BY ity of capsule 00:00: MOUTH [place] 00 TWICE A Medical DAY Branch ZONISAMIDE 2023-0 Yes [id number] TAKE 1 [facility] 100 mg 3-27 CAPSULE BY ity of capsule 00:00: MOUTH [place] 00 TWICE A Medical DAY Branch ZONISAMIDE 2023-0 Yes [id number] TAKE 1 [facility] 100 mg 3-27 CAPSULE BY ity of capsule 00:00: MOUTH [place] 00 TWICE A Medical DAY Branch ZONISAMIDE 2023-0 Yes [id number] TAKE 1 [facility] 100 mg 3-27 CAPSULE BY ity of capsule 00:00: MOUTH [place] 00 TWICE A Medical DAY Branch ZONISAMIDE 3-0 Yes [id number] TAKE 1 [facility] 100 mg 3-27 CAPSULE BY ity of capsule 00:00: MOUTH TWICE A Medical DAY Branch ZONISAMIDE 3-0 Yes [id number] TAKE 1 [facility] 100 mg 3-27 CAPSULE BY ity of capsule 00:00: MOUTH [place] TWICE A Medical DAY Branch ZONISAMIDE 3-0 Yes [id number] TAKE 1 [facility] 100 mg 3-27 CAPSULE BY ity of capsule 00:00: MOUTH TWICE A Medical DAY Branch ZONISAMIDE 2022-0 Yes [id number] TAKE 1 [facility] 100 mg 3-27 CAPSULE BY ity of capsule 00:00: MOUTH TWICE A Medical DAY Branch ZONISAMIDE 2022-0 Yes [id number] TAKE 1 [facility] 100 mg 3-27 CAPSULE BY ity of capsule 00:00: MOUTH TWICE A Medical DAY Branch ZONISAMIDE 2022-0 Yes [id number] TAKE 1 [facility] 100 mg 3-27 CAPSULE BY ity of capsule 00:00: MOUTH TWICE A Medical DAY Branch ZONISAMIDE 2022-0 Yes [id number] TAKE 1 [facility] 100 mg 3-27 CAPSULE BY ity of capsule 00:00: MOUTH TWICE A Medical DAY Branch ZONISAMIDE 2022-0 Yes [id number] TAKE 1 [facility] 100 mg 3-27 CAPSULE BY ity of capsule 00:00: MOUTH TWICE A Medical DAY Branch ZONISAMIDE 3-0 Yes [id number] TAKE 1 [facility] 100 mg 3-27 CAPSULE BY ity of capsule 00:00: MOUTH 00 TWICE A Medical DAY Branch ZONISAMIDE 3-0 Yes [id number] TAKE 1 [facility] 100 mg 3-27 CAPSULE BY ity of capsule 00:00: MOUTH 00 TWICE A Medical DAY Branch ZONISAMIDE 3-0 Yes [id number] TAKE 1 [facility] 100 mg 3-27 CAPSULE BY ity of capsule 00:00: MOUTH [place] 00 TWICE A Medical DAY Branch ZONISAMIDE 3-0 Yes [id number] TAKE 1 [facility] 100 mg 3-27 CAPSULE BY ity of capsule 00:00: MOUTH [place] 00 TWICE A Medical DAY Branch ZONISAMIDE 2023-0 Yes [id number] TAKE 1 [facility] 100 mg 3-27 CAPSULE BY ity of capsule 00:00: MOUTH [place] TWICE A Medical DAY Branch ZONISAMIDE 2023-0 Yes [id number] TAKE 1 [facility] 100 mg 3-27 CAPSULE BY ity of capsule 00:00: MOUTH TWICE A Medical DAY Branch ZONISAMIDE 2023-0 Yes [id number] TAKE 1 [facility] 100 mg 3-27 CAPSULE BY ity of capsule 00:00: MOUTH [place] TWICE A Medical DAY Branch ZONISAMIDE 2023-0 Yes [id number] TAKE 1 [facility] 100 mg 3-27 CAPSULE BY ity of capsule 00:00: MOUTH TWICE A Medical DAY Branch ZONISAMIDE 3-0 Yes [id number] TAKE 1 [facility] 100 mg 3-27 CAPSULE BY ity of capsule 00:00: MOUTH TWICE A Medical DAY Branch ZONISAMIDE 3-0 Yes [id number] TAKE 1 [facility] 100 mg 3-27 CAPSULE BY ity of capsule 00:00: MOUTH TWICE A Medical DAY Branch ZONISAMIDE 2023-0 Yes [id number] TAKE 1 [facility] 100 mg 3-27 CAPSULE BY ity of capsule 00:00: MOUTH TWICE A Medical DAY Branch ZONISAMIDE 3-0 Yes [id number] TAKE 1 [facility] 100 mg 3-27 CAPSULE BY ity of capsule 00:00: MOUTH TWICE A Medical DAY Branch ZONISAMIDE 3-0 Yes [id number] TAKE 1 [facility] 100 mg 3-27 CAPSULE BY ity of capsule 00:00: MOUTH TWICE A Medical DAY Branch ZONISAMIDE 2023-0 Yes [id number] TAKE 1 [facility] 100 mg 3-27 CAPSULE BY ity of capsule 00:00: MOUTH TWICE A Medical DAY Branch ZONISAMIDE 2023-0 Yes [id number] TAKE 1 [facility] 100 mg 3-27 CAPSULE BY ity of capsule 00:00: MOUTH TWICE A Medical DAY Branch ZONISAMIDE 2023-0 Yes [id number] TAKE 1 [facility] 100 mg 3-27 CAPSULE BY ity of capsule 00:00: MOUTH TWICE A Medical DAY Branch ZONISAMIDE 3-0 Yes [id number] TAKE 1 [facility] 100 mg 3-27 CAPSULE BY ity of capsule 00:00: MOUTH [place] 00 TWICE A Medical DAY Branch ZONISAMIDE 2023-0 Yes [id number] TAKE 1 [facility] 100 mg 3-27 CAPSULE BY ity of capsule 00:00: MOUTH TWICE A Medical DAY Branch ZONISAMIDE 3-0 Yes [id number] TAKE 1 [facility] 100 mg 3-27 CAPSULE BY ity of capsule 00:00: MOUTH TWICE A Medical DAY Branch ZONISAMIDE 3-0 Yes [id number] TAKE 1 [facility] 100 mg 3-27 CAPSULE BY ity of capsule 00:00: MOUTH [place] TWICE A Medical DAY Branch ZONISAMIDE 3-0 Yes [id number] TAKE 1 [facility] 100 mg 3-27 CAPSULE BY ity of capsule 00:00: MOUTH TWICE A Medical DAY Branch ZONISAMIDE 2022-0 Yes [id number] TAKE 1 [facility] 100 mg 3-27 CAPSULE BY ity of capsule 00:00: MOUTH TWICE A Medical DAY Branch ZONISAMIDE 3-0 Yes [id number] TAKE 1 [facility] 100 mg 3-27 CAPSULE BY ity of capsule 00:00: MOUTH TWICE A Medical DAY Branch ZONISAMIDE 3-0 Yes [id number] TAKE 1 [facility] 100 mg 3-27 CAPSULE BY ity of capsule 00:00: MOUTH TWICE A Medical DAY Branch ZONISAMIDE 3-0 Yes [id number] TAKE 1 [facility] 100 mg 3-27 CAPSULE BY ity of capsule 00:00: MOUTH TWICE A Medical DAY Branch ZONISAMIDE 3-0 Yes [id number] TAKE 1 [facility] 100 mg 3-27 CAPSULE BY ity of capsule 00:00: MOUTH TWICE A Medical DAY Branch ZONISAMIDE 3-0 Yes [id number] TAKE 1 [facility] 100 mg 3-27 CAPSULE BY [facility] of capsule 00:00: MOUTH TWICE A Medical DAY Branch ZONISAMIDE 3-0 Yes [id number] TAKE 1 [facility] 100 mg 3-27 CAPSULE BY [facility] of capsule 00:00: MOUTH 00 TWICE A Medical DAY Branch ZONISAMIDE 3-0 Yes [id number] TAKE 1 [facility] 100 mg 3-27 CAPSULE BY [facility] of capsule 00:00: MOUTH TWICE A Medical DAY Branch ZONISAMIDE 3-0 Yes [id number] TAKE 1 [facility] 100 mg 3-27 CAPSULE BY [facility] of capsule 00:00: MOUTH [place] 00 TWICE A Medical DAY Branch ZONISAMIDE 2022-0 Yes [id number] TAKE 1 [facility] 100 mg 3-27 CAPSULE BY [facility] of capsule 00:00: MOUTH [place] 00 TWICE A Medical DAY Branch ZONISAMIDE 3-0 Yes [id number] TAKE 1 [facility] 100 mg 3-27 CAPSULE BY [facility] of capsule 00:00: MOUTH [place] 00 TWICE A Medical DAY Branch ibuprofen 3-0 2023- No 800mg 800 mg, [facility] vers (IBU) 06-09-14 Oral, ity of tablet 800 15:15: 15:05 ONCE, 1 [place] as mg 00 :00 dose, On Medical Tue Branch 06/09/22 at 1015, [place] dextroamphe 2022-0 Yes [id number] 20mg Take 1 [facility] tamine-amph 3-09 tablet by ity of etamine 00:00: mouth in [place] ([facility]) 00 the Medical 20 mg morning Branch tablet and 1 tablet at noon and 1 tablet in the evening. dextroamphe 3-0 Yes [id number] 20mg Take 1 [facility] tamine-amph 3-09 tablet by [facility] of etamine 00:00: mouth in [place] ([facility]) 00 the Medical 20 mg morning Branch tablet and 1 tablet at noon and 1 tablet in the evening. dextroamphe 3-0 Yes [id number] 20mg Take 1 [facility] tamine-amph 3-09 tablet by ity of etamine 00:00: mouth in [place] ([facility]) 00 the Medical 20 mg morning Branch tablet and 1 tablet at noon and 1 tablet in the evening. dextroamphe 3-0 Yes [id number] 20mg Take 1 [facility] tamine-amph 3-09 tablet by ity of etamine 00:00: mouth in [place] ([facility]) 00 the Medical 20 mg morning Branch tablet and 1 tablet at noon and 1 tablet in the evening. dextroamphe 2023-0 Yes [id number] 20mg Take 1 [facility] tamine-amph 3-09 tablet by ity of etamine 00:00: mouth in [place] ([facility]) 00 the Medical 20 mg morning Branch tablet and 1 tablet at noon and 1 tablet in the evening. dextroamphe 2023-0 Yes [id number] 20mg Take 1 [facility] tamine-amph 3-09 tablet by it[facility] of etamine 00:00: mouth in [place] ([facility]) 00 the Medical 20 mg morning Branch tablet and 1 tablet at noon and 1 tablet in the evening. dextroamphe 2023-0 Yes [id number] 20mg Take 1 [facility] tamine-amph 3-09 tablet by ity of etamine 00:00: mouth in [place] ([facility]) 00 the Medical 20 mg morning Branch tablet and 1 tablet at noon and 1 tablet in the evening. dextroamphe 2023-0 Yes [id number] 20mg Take 1 [facility] tamine-amph 3-09 tablet by [facility] of etamine 00:00: [facility] [place] [facility] the Medical 20 mg morning Branch tablet and 1 tablet at noon and 1 tablet in the evening. dextroamphe 2023-0 Yes [id number] 20mg Take 1 [facility] tamine-amph 3-09 tablet by ity of etamine 00:00: mouth in [place] [facility] 00 the Medical 20 mg morning Branch tablet and 1 tablet at noon and 1 tablet in the evening. dextroamphe 2023-0 Yes [id number] 20mg Take 1 [facility] tamine-amph 3-09 tablet by ity of etamine 00:00: mouth in [place] [facility] 00 the Medical 20 mg morning Branch tablet and 1 tablet at noon and 1 tablet in the evening. dextroamphe 2023-0 2023- No [id number] 20mg Take 1 [facility] tamine-amph 3-09 03-30 tablet by it y of etamine 00:00: 00:00 mouth in [place] ([facility]) 00 :00 the Medical 20 mg morning Branch tablet and 1 tablet at noon and 1 tablet in the evening. dextroamphe 2023-0 2023- No [id number] 20mg Take 1 [facility] tamine-amph 3-09 03-30 tablet by it y of etamine 00:00: 00:00 mouth in [place] ([facility]) 00 :00 the Medical 20 mg morning Branch tablet and 1 tablet at noon and 1 tablet in the evening. dextroamphe 2023-0 Yes [id number] 12.5mg Take 1 [facility] tamine-amph 2-27 tablet by ity of etamine 00:00: mouth in [place] ([facility]) 00 the Medical 12.5 mg morning Branch tablet and 1 tablet at noon and 1 tablet in the evening. clonazePAM 2023-0 Yes [id number] 1mg Take 2 [facility] (KLONOPIN) 2-27 tablets by ity of 0.5 mg 00:00: mouth in [place] tablet 00 the Medical morning Branch and 2 tablets at noon and 2 tablets in the evening. dextroamphe 2023-0 Yes [id number] 12.5mg Take 1 [facility] tamine-amph 2-27 tablet by ity of etamine 00:00: mouth in [place] ([facility]) 00 the Medical 12.5 mg morning Branch tablet and 1 tablet at noon and 1 tablet in the evening. clonazePAM 2023-0 Yes [id number] 1mg Take 2 [facility] (KLONOPIN) 2-27 tablets by ity of 0.5 mg 00:00: mouth in [place] tablet 00 the Medical morning Branch and 2 tablets at noon and 2 tablets in the evening. clonazePAM 2023-0 Yes [id number] 1mg Take 2 [facility] (KLONOPIN) 2-27 tablets by ity of 0.5 mg 00:00: mouth in [place] tablet 00 the Medical morning Branch and 2 tablets at noon and 2 tablets in the evening. clonazePAM 2023-0 Yes [id number] 1mg Take 2 [facility] (KLONOPIN) 2-27 tablets by ity of 0.5 mg 00:00: mouth in [place] tablet 00 the Medical morning Branch and 2 tablets at noon and 2 tablets in the evening. clonazePAM 2023-0 Yes [id number] 1mg Take 2 [facility] (KLONOPIN) 2-27 tablets by ity of 0.5 mg 00:00: mouth in [place] tablet 00 the Medical morning Branch and 2 tablets at noon and 2 tablets in the evening. clonazePAM 2023-0 Yes [id number] 1mg Take 2 [facility] (KLONOPIN) 2-27 tablets by ity of 0.5 mg 00:00: mouth in [place] tablet 00 the Medical morning Branch and 2 tablets at noon and 2 tablets in the evening. clonazePAM 2023-0 Yes [id number] 1mg Take 2 [facility] (KLONOPIN) 2-27 tablets by ity of 0.5 mg 00:00: mouth in [place] tablet 00 the Medical morning Branch and 2 tablets at noon and 2 tablets in the evening. clonazePAM 2023-0 Yes [id number] 1mg Take 2 [facility] (KLONOPIN) 2-27 tablets by ity of 0.5 mg 00:00: mouth in [place] tablet 00 the Medical morning Branch and 2 tablets at noon and 2 tablets in the evening. clonazePAM 2023-0 Yes [id number] 1mg Take 2 [facility] (KLONOPIN) 2-27 tablets by ity of 0.5 mg 00:00: mouth in [place] tablet 00 the Medical morning Branch and 2 tablets at noon and 2 tablets in the evening. clonazePAM 2023-0 Yes [id number] 1mg Take 2 [facility] (KLONOPIN) 2-27 tablets by ity of 0.5 mg 00:00: mouth in [place] tablet 00 the Medical morning Branch and 2 tablets at noon and 2 tablets in the evening. clonazePAM 2023-0 Yes [id number] 1mg Take 2 [facility] (KLONOPIN) 2-27 tablets by ity of 0.5 mg 00:00: mouth in [place] tablet 00 the Medical morning Branch and 2 tablets at noon and 2 tablets in the evening. clonazePAM 2023-0 Yes [id number] 1mg Take 2 [facility] (KLONOPIN) 2-27 tablets by ity of 0.5 mg 00:00: mouth in [place] tablet 00 the Medical morning Branch and 2 tablets at noon and 2 tablets in the evening. clonazePAM 2023-0 Yes [id number] 1mg Take 2 [facility] (KLONOPIN) 2-27 tablets by ity of 0.5 mg 00:00: mouth in [place] tablet 00 the Medical morning Branch and 2 tablets at noon and 2 tablets in the evening. clonazePAM 2023-0 Yes [id number] 1mg Take 2 [facility] (KLONOPIN) 2-27 tablets by ity of 0.5 mg 00:00: mouth in [place] tablet 00 the Medical morning Branch and 2 tablets at noon and 2 tablets in the evening. clonazePAM 2023-0 Yes [id number] 1mg Take 2 [facility] (KLONOPIN) 2-27 tablets by ity of 0.5 mg 00:00: mouth in [place] tablet 00 the Medical morning Branch and 2 tablets at noon and 2 tablets in the evening. clonazePAM 2023-0 Yes [id number] 1mg Take 2 [facility] (KLONOPIN) 2-27 tablets by ity of 0.5 mg 00:00: mouth in [place] tablet 00 the Medical morning Branch and 2 tablets at noon and 2 tablets in the evening. clonazePAM 2023-0 Yes [id number] 1mg Take 2 [facility] (KLONOPIN) 2-27 tablets by ity of 0.5 mg 00:00: mouth in [place] tablet 00 the Medical morning Branch and 2 tablets at noon and 2 tablets in the evening. clonazePAM 2023-0 Yes [id number] 1mg Take 2 [facility] (KLONOPIN) 2-27 tablets by ity of 0.5 mg 00:00: mouth in [place] tablet 00 the Medical morning Branch and 2 tablets at noon and 2 tablets in the evening. clonazePAM 2023-0 Yes [id number] 1mg Take 2 [facility] (KLONOPIN) 2-27 tablets by ity of 0.5 mg 00:00: mouth in [place] tablet 00 the Medical morning Branch and 2 tablets at noon and 2 tablets in the evening. clonazePAM 2023-0 Yes [id number] 1mg Take 2 [facility] (KLONOPIN) 2-27 tablets by ity of 0.5 mg 00:00: mouth in [place] tablet 00 the Medical morning Branch and 2 tablets at noon and 2 tablets in the evening. clonazePAM 2023-0 Yes [id number] 1mg Take 2 [facility] (KLONOPIN) 2-27 tablets by ity of 0.5 mg 00:00: mouth in [place] tablet 00 the Medical morning Branch and 2 tablets at noon and 2 tablets in the evening. clonazePAM 2023-0 Yes [id number] 1mg Take 2 [facility] (KLONOPIN) 2-27 tablets by ity of 0.5 mg 00:00: mouth in [place] tablet 00 the Medical morning Branch and 2 tablets at noon and 2 tablets in the evening. clonazePAM 2023-0 Yes [id number] 1mg Take 2 [facility] (KLONOPIN) 2-27 tablets by ity of 0.5 mg 00:00: mouth in [place] tablet 00 the Medical morning Branch and 2 tablets at noon and 2 tablets in the evening. clonazePAM 2023-0 Yes [id number] 1mg Take 2 [facility] (KLONOPIN) 2-27 tablets by ity of 0.5 mg 00:00: mouth in [place] tablet 00 the Medical morning Branch and 2 tablets at noon and 2 tablets in the evening. clonazePAM 2023-0 Yes [id number] 1mg Take 2 [facility] (KLONOPIN) 2-27 tablets by ity of 0.5 mg 00:00: mouth in [place] tablet 00 the Medical morning Branch and 2 tablets at noon and 2 tablets in the evening. clonazePAM 2023-0 Yes [id number] 1mg Take 1 [facility] 1 mg tablet 2-27 tablet by ity of 00:00: mouth in [place] 00 the Medical morning Branch and 1 tablet at noon and 1 tablet in the evening. dextroamphe 2023-0 Yes [id number] 12.5mg Take 1 [facility] tamine-amph 2-27 tablet by ity of etamine 00:00: mouth in [place] ([facility]) 00 the Medical 12.5 mg morning Branch tablet and 1 tablet at noon and 1 tablet in the evening. clonazePAM 2023-0 Yes [id number] 1mg Take 1 [facility] 1 mg tablet 2-27 tablet by ity of 00:00: mouth in [place] 00 the Medical morning Branch and 1 tablet at noon and 1 tablet in the evening. dextroamphe 2023-0 Yes [id number] 12.5mg Take 1 [facility] tamine-amph 2-27 tablet by ity of etamine 00:00: mouth in [place] ([facility]) 00 the Medical 12.5 mg morning Branch tablet and 1 tablet at noon and 1 tablet in the evening. dextroamphe 2023-0 Yes [id number] 12.5mg Take 1 [facility] tamine-amph 2-27 tablet by ity of etamine 00:00: mouth in [place] ([facility]) 00 the Medical 12.5 mg morning Branch tablet and 1 tablet at noon and 1 tablet in the evening. clonazePAM 2023-0 Yes [id number] 1mg Take 2 [facility] (KLONOPIN) 2-27 tablets by ity of 0.5 mg 00:00: mouth in [place] tablet 00 the Medical morning Branch and 2 tablets at noon and 2 tablets in the evening. dextroamphe 2023-0 Yes [id number] 12.5mg Take 1 [facility] tamine-amph 2-27 tablet by ity of etamine 00:00: mouth in [place] ([facility]) 00 the Medical 12.5 mg morning Branch tablet and 1 tablet at noon and 1 tablet in the evening. clonazePAM 2023-0 Yes [id number] 1mg Take 2 [facility] (KLONOPIN) 2-27 tablets by ity of 0.5 mg 00:00: mouth in [place] tablet 00 the Medical morning Branch and 2 tablets at noon and 2 tablets in the evening. dextroamphe 2023-0 Yes [id number] 12.5mg Take 1 [facility] tamine-amph 2-27 tablet by ity of etamine 00:00: mouth in [place] ([facility]) 00 the Medical 12.5 mg morning Branch tablet and 1 tablet at noon and 1 tablet in the evening. clonazePAM 3-0 Yes [id number] 1mg Take 2 [facility] (KLONOPIN) 2-27 tablets by ity of 0.5 mg 00:00: mouth in [place] tablet 00 the Medical morning Branch and 2 tablets at noon and 2 tablets in the evening. clonazePAM 3-0 3- No [id number] 1mg Take 2 [facility] (KLONOPIN) 2-27 05-09 tablets by it y of 0.5 mg 00:00: 00:00 mouth in [place] tablet 00 :00 the Medical morning Branch and 2 tablets at noon and 2 tablets in the evening. clonazePAM 3-0 3- No [id number] 1mg Take 2 [facility] (KLONOPIN) 2-27 05-09 tablets by it y of 0.5 mg 00:00: 00:00 mouth in [place] tablet 00 :00 the Medical morning Branch and 2 tablets at noon and 2 tablets in the evening. dextroamphe 3-0 3- No [id number] 12.5mg Take 1 [facility] tamine-amph 2-27 03-09 tablet by it y of etamine 00:00: 00:00 mouth in [place] ([facility]) 00 :00 the Medical 12.5 mg morning Branch tablet and 1 tablet at noon and 1 tablet in the evening. clonazePAM 3-0 3- No [id number] 1mg Take 1 [facility] 1 mg tablet 2-27 -27 tablet by it y of 00:00: 00:00 mouth in [place] 00 :00 the Medical morning Branch and 1 tablet at noon and 1 tablet in the evening. dextroamphe 3-0 Yes [id number] 12.5mg Take 1 [facility] tamine-amph 2-01 tablet by ity of etamine 00:00: mouth in [place] ([facility]) 00 the Medical 12.5 mg morning Branch tablet and 1 tablet at noon and 1 tablet in the evening. dextroamphe 2023-0 Yes [id number] 12.5mg Take 1 [facility] tamine-amph 2-01 tablet by ity of etamine 00:00: mouth in [place] ([facility]) 00 the Medical 12.5 mg morning Branch tablet and 1 tablet at noon and 1 tablet in the evening. dextroamphe 2023-0 Yes [id number] 12.5mg Take 1 [facility] tamine-amph 2-01 tablet by ity of etamine 00:00: mouth in [place] ([facility]) 00 the Medical 12.5 mg morning Branch tablet and 1 tablet at noon and 1 tablet in the evening. dextroamphe 2023-0 Yes [id number] 12.5mg Take 1 [facility] tamine-amph 2-01 tablet by ity of etamine 00:00: mouth in [place] [facility] 00 the Medical 12.5 mg morning Branch tablet and 1 tablet at noon and 1 tablet in the evening. dextroamphe 2023-0 2023- No [id number] 12.5mg Take 1 [facility] tamine-amph 2-01 -27 tablet by it y of etamine 00:00: 00:00 mouth in [place] [facility] :00 the Medical 12.5 mg morning Branch tablet and 1 tablet at noon and 1 tablet in the evening. dextroamphe 2023-0 2023- No [id number] 12.5mg Take 1 [facility] tamine-amph 2-01 -27 tablet by it y of etamine 00:00: 00:00 mouth in [place] ([facility]) 00 :00 the Medical 12.5 mg morning Branch tablet and 1 tablet at noon and 1 tablet in the evening. dextroamphe 2023-0 2023- No [id number] 12.5mg Take 1 [facility] tamine-amph 2-01 -27 tablet by it y of etamine 00:00: 00:00 mouth in [place] ([facility]) 00 :00 the Medical 12.5 mg morning Branch tablet and 1 tablet at noon and 1 tablet in the evening. dextroamphe 2023-0 Yes [id number] 12.5mg Take 1 [facility] tamine-amph 1-10 tablet by ity of etamine 00:00: mouth in [place] ([facility]) 00 the Medical 12.5 mg morning Branch tablet and 1 tablet at noon and 1 tablet in the evening. dextroamphe 2023-0 Yes [id number] 12.5mg Take 1 [facility] tamine-amph 1-10 tablet by ity of etamine 00:00: mouth in [place] ([facility] 00 the Medical 12.5 mg morning Branch tablet and 1 tablet at noon and 1 tablet in the evening. dextroamphe 2023-0 Yes [id number] 12.5mg Take 1 [facility] tamine-amph 1-10 tablet by ity of etamine 00:00: mouth in [place] ([facility] 00 the Medical 12.5 mg morning Branch tablet and 1 tablet at noon and 1 tablet in the evening. dextroamphe 2023-0 Yes [id number] 12.5mg Take 1 [facility] tamine-amph 1-10 tablet by ity of etamine 00:00: mouth in [place] ([facility] 00 the Medical 12.5 mg morning Branch tablet and 1 tablet at noon and 1 tablet in the evening. dextroamphe 2023-0 Yes [id number] 12.5mg Take 1 [facility] tamine-amph 1-10 tablet by ity of etamine 00:00: mouth in [place] ([facility] 00 the Medical 12.5 mg morning Branch tablet and 1 tablet at noon and 1 tablet in the evening. dextroamphe 2023-0 Yes [id number] 12.5mg Take 1 [facility] tamine-amph 1-10 tablet by ity of etamine 00:00: mouth in [place] ([facility] 00 the Medical 12.5 mg morning Branch tablet and 1 tablet at noon and 1 tablet in the evening. dextroamphe 2023-0 Yes [id number] 12.5mg Take 1 [facility] tamine-amph 1-10 tablet by ity of etamine 00:00: mouth in [place] ([facility] 00 the Medical 12.5 mg morning Branch tablet and 1 tablet at noon and 1 tablet in the evening. dextroamphe 2023-0 2023- No [id number] 12.5mg Take 1 [facility] tamine-amph 1-10 - tablet by it y of etamine 00:00: 00:00 mouth in [place] ([facility]) 00 :00 the Medical 12.5 mg morning Branch tablet and 1 tablet at noon and 1 tablet in the evening. dextroamphe 2022-0 2022- No [id number] 12.5mg Take 1 [facility] tamine-amph 1-10 02- tablet by it y of etamine 00:00: 00:00 mouth in [place] ([facility]) 00 :00 the Medical 12.5 mg morning Branch tablet and 1 tablet at noon and 1 tablet in the evening. dextroamphe 3-0 Yes [id number] 15mg Take 1 [facility] tamine-amph 1-09 tablet by ity of etamine 00:00: mouth in [place] [facility] the Medical 15 mg morning Branch tablet and 1 tablet at noon and 1 tablet in the evening. dextroamphe 2022-0 Yes [id number] 15mg Take 1 [facility] tamine-amph 1-09 tablet by ity of etamine 00:00: mouth in [place] ([facility]) 00 the Medical 15 mg morning Branch tablet and 1 tablet at noon and 1 tablet in the evening. dextroamphe 2022-0 2022- No [id number] 15mg Take 1 [facility] tamine-amph 1-09 -10 tablet by it y of etamine 00:00: 00:00 mouth in [place] ([facility] 00 :00 the Medical 15 mg morning Branch tablet and 1 tablet at noon and 1 tablet in the evening. SYNTHROID 3-0 Yes [id number] TAKE 1 U nivers 150 mcg 1-02 TABLET BY ity of tablet 00:00: MOUTH [place] 00 EVERY DAY Medical IN THE [place] MORNING SYNTHROID 2023-0 Yes [id number] TAKE 1 U nivers 150 mcg 1-02 TABLET BY ity of tablet 00:00: MOUTH [place] 00 EVERY DAY Medical IN THE [place] MORNING SYNTHROID 2023-0 Yes [id number] TAKE 1 U nivers 150 mcg 1-02 TABLET BY ity of tablet 00:00: MOUTH [place] 00 EVERY DAY Medical IN THE [place] MORNING SYNTHROID 2023-0 Yes [id number] TAKE 1 U nivers 150 mcg 1-02 TABLET BY ity of tablet 00:00: MOUTH [place] 00 EVERY DAY Medical IN THE [place] MORNING SYNTHROID 3-0 Yes [id number] TAKE 1 U nivers 150 mcg 1-02 TABLET BY ity of tablet 00:00: MOUTH [place] 00 EVERY DAY Medical IN THE [facility] SYNTHROID 0 Yes [id number] TAKE 1 U nivers 150 mcg 1-02 TABLET BY ity of tablet 00:00: MOUTH [place] 00 EVERY DAY Medical IN THE [facility] SYNTHROID 0 Yes [id number] TAKE 1 U nivers 150 mcg 1-02 TABLET BY ity of tablet 00:00: MOUTH [place] 00 EVERY DAY Medical IN THE [facility] SYNTHROID Yes [id number] TAKE 1 U nivers 150 mcg 1-02 TABLET BY ity of tablet 00:00: MOUTH [place] 00 EVERY DAY Medical IN THE [facility] SYNTHROID Yes [id number] TAKE 1 U nivers 150 mcg 1-02 TABLET BY ity of tablet 00:00: MOUTH [place] 00 EVERY DAY Medical IN THE [facility] SYNTHROID Yes [id number] TAKE 1 U nivers 150 mcg 1-02 TABLET BY ity of tablet 00:00: MOUTH [place] 00 EVERY DAY Medical IN THE [facility] SYNTHROID Yes [id number] TAKE 1 U nivers 150 mcg 1-02 TABLET BY ity of tablet 00:00: MOUTH [place] 00 EVERY DAY Medical IN THE [facility] SYNTHROID Yes [id number] TAKE 1 U nivers 150 mcg 1-02 TABLET BY ity of tablet 00:00: MOUTH [place] 00 EVERY DAY Medical IN THE [facility] SYNTHROID 0 Yes [id number] TAKE 1 U nivers 150 mcg 1-02 TABLET BY ity of tablet 00:00: MOUTH [place] 00 EVERY DAY Medical IN THE [facility] SYNTHROID 0 Yes [id number] TAKE 1 U nivers 150 mcg 1-02 TABLET BY ity of tablet 00:00: MOUTH [place] 00 EVERY DAY Medical IN THE [facility] SYNTHROID 0 Yes [id number] TAKE 1 U nivers 150 mcg 1-02 TABLET BY ity of tablet 00:00: MOUTH [place] 00 EVERY DAY Medical IN THE [facility] SYNTHROID 0 Yes [id number] TAKE 1 U nivers 150 mcg 1-02 TABLET BY ity of tablet 00:00: MOUTH [place] 00 EVERY DAY Medical IN THE [facility] SYNTHROID 0 Yes [id number] TAKE 1 U nivers 150 mcg 1-02 TABLET BY ity of tablet 00:00: MOUTH [place] 00 EVERY DAY Medical IN THE [facility] SYNTHROID Yes [id number] TAKE 1 U nivers 150 mcg 1-02 TABLET BY ity of tablet 00:00: MOUTH [place] 00 EVERY DAY Medical IN THE [facility] SYNTHROID Yes [id number] TAKE 1 U nivers 150 mcg 1-02 TABLET BY ity of tablet 00:00: MOUTH [place] 00 EVERY DAY Medical IN THE [facility] SYNTHROID Yes [id number] TAKE 1 U nivers 150 mcg 1-02 TABLET BY ity of tablet 00:00: MOUTH [place] 00 EVERY DAY Medical IN THE [facility] SYNTHROID Yes [id number] TAKE 1 U nivers 150 mcg 1-02 TABLET BY ity of tablet 00:00: MOUTH [place] 00 EVERY DAY Medical IN THE [facility] SYNTHROID Yes [id number] TAKE 1 U nivers 150 mcg 1-02 TABLET BY ity of tablet 00:00: MOUTH [place] 00 EVERY DAY Medical IN THE [facility] SYNTHROID Yes [id number] TAKE 1 U nivers 150 mcg 1-02 TABLET BY ity of tablet 00:00: MOUTH [place] 00 EVERY DAY Medical IN THE [facility] SYNTHROID Yes [id number] TAKE 1 U nivers 150 mcg 1-02 TABLET BY ity of tablet 00:00: MOUTH [place] 00 EVERY DAY Medical IN THE [facility] SYNTHROID Yes [id number] TAKE 1 U nivers 150 mcg 1-02 TABLET BY ity of tablet 00:00: MOUTH [place] 00 EVERY DAY Medical IN THE [facility] SYNTHROID Yes [id number] TAKE 1 U nivers 150 mcg 1-02 TABLET BY ity of tablet 00:00: MOUTH [place] 00 EVERY DAY Medical IN THE [facility] SYNTHROID Yes [id number] TAKE 1 U nivers 150 mcg 1-02 TABLET BY ity of tablet 00:00: MOUTH [place] 00 EVERY DAY Medical IN THE [facility] SYNTHROID Yes [id number] TAKE 1 U nivers 150 mcg 1-02 TABLET BY ity of tablet 00:00: MOUTH [place] 00 EVERY DAY Medical IN THE [facility] SYNTHROID Yes [id number] TAKE 1 U nivers 150 mcg 1-02 TABLET BY ity of tablet 00:00: MOUTH [place] 00 EVERY DAY Medical IN THE [facility] SYNTHROID Yes [id number] TAKE 1 U nivers 150 mcg 1-02 TABLET BY ity of tablet 00:00: MOUTH [place] 00 EVERY DAY Medical IN THE [facility] SYNTHROID Yes [id number] TAKE 1 U nivers 150 mcg 1-02 TABLET BY ity of tablet 00:00: MOUTH [place] 00 EVERY DAY Medical IN THE [facility] SYNTHROID Yes [id number] TAKE 1 U nivers 150 mcg 1-02 TABLET BY ity of tablet 00:00: MOUTH [place] 00 EVERY DAY Medical IN THE [facility] SYNTHROID Yes [id number] TAKE 1 U nivers 150 mcg 1-02 TABLET BY ity of tablet 00:00: MOUTH [place] 00 EVERY DAY Medical IN THE [facility] SYNTHROID Yes [id number] TAKE 1 U nivers 150 mcg 1-02 TABLET BY ity of tablet 00:00: MOUTH [place] 00 EVERY DAY Medical IN THE [facility] SYNTHROID Yes [id number] TAKE 1 U nivers 150 mcg 1-02 TABLET BY ity of tablet 00:00: MOUTH [place] 00 EVERY DAY Medical IN THE [facility] SYNTHROID Yes [id number] TAKE 1 U nivers 150 mcg 1-02 TABLET BY ity of tablet 00:00: MOUTH [place] 00 EVERY DAY Medical IN THE [facility] SYNTHROID Yes [id number] TAKE 1 U nivers 150 mcg 1-02 TABLET BY ity of tablet 00:00: MOUTH [place] 00 EVERY DAY Medical IN THE [facility] SYNTHROID Yes [id number] TAKE 1 U nivers 150 mcg 1-02 TABLET BY ity of tablet 00:00: MOUTH [place] 00 EVERY DAY Medical IN THE [facility] SYNTHROID Yes [id number] TAKE 1 U nivers 150 mcg 1-02 TABLET BY ity of tablet 00:00: MOUTH [place] 00 EVERY DAY Medical IN THE [facility] SYNTHROID Yes [id number] TAKE 1 U nivers 150 mcg 1-02 TABLET BY ity of tablet 00:00: MOUTH [place] 00 EVERY DAY Medical IN THE [facility] SYNTHROID Yes [id number] TAKE 1 U nivers 150 mcg 1-02 TABLET BY ity of tablet 00:00: MOUTH [place] 00 EVERY DAY Medical IN THE [facility] SYNTHROID Yes [id number] TAKE 1 U nivers 150 mcg 1-02 TABLET BY ity of tablet 00:00: MOUTH [place] 00 EVERY DAY Medical IN THE [place] MORNING SYNTHROID 0 Yes [id number] TAKE 1 U nivers 150 mcg 1-02 TABLET BY ity of tablet 00:00: MOUTH [place] 00 EVERY DAY Medical IN THE [facility] SYNTHROID 0 Yes [id number] TAKE 1 U nivers 150 mcg 1-02 TABLET BY ity of tablet 00:00: MOUTH [place] 00 EVERY DAY Medical IN THE [facility] SYNTHROID Yes [id number] TAKE 1 U nivers 150 mcg 1-02 TABLET BY ity of tablet 00:00: MOUTH [place] 00 EVERY DAY Medical IN THE [facility] SYNTHROID Yes [id number] TAKE 1 U nivers 150 mcg 1-02 TABLET BY ity of tablet 00:00: MOUTH [place] 00 EVERY DAY Medical IN THE [facility] SYNTHROID Yes [id number] TAKE 1 U nivers 150 mcg 1-02 TABLET BY ity of tablet 00:00: MOUTH [place] 00 EVERY DAY Medical IN THE [facility] SYNTHROID Yes [id number] TAKE 1 U nivers 150 mcg 1-02 TABLET BY ity of tablet 00:00: MOUTH [place] 00 EVERY DAY Medical IN THE [facility] SYNTHROID Yes [id number] TAKE 1 U nivers 150 mcg 1-02 TABLET BY ity of tablet 00:00: MOUTH [place] 00 EVERY DAY Medical IN THE [facility] SYNTHROID Yes [id number] TAKE 1 U nivers 150 mcg 1-02 TABLET BY ity of tablet 00:00: MOUTH [place] 00 EVERY DAY Medical IN THE [facility] SYNTHROID 0 Yes [id number] TAKE 1 U nivers 150 mcg 1-02 TABLET BY ity of tablet 00:00: MOUTH [place] 00 EVERY DAY Medical IN THE [facility] SYNTHROID 0 Yes [id number] TAKE 1 U nivers 150 mcg 1-02 TABLET BY ity of tablet 00:00: MOUTH [place] 00 EVERY DAY Medical IN THE [facility] SYNTHROID 0 Yes [id number] TAKE 1 U nivers 150 mcg 1-02 TABLET BY ity of tablet 00:00: MOUTH [place] 00 EVERY DAY Medical IN THE [facility] SYNTHROID Yes [id number] TAKE 1 U nivers 150 mcg 1-02 TABLET BY ity of tablet 00:00: MOUTH [place] 00 EVERY DAY Medical IN THE [place] MORNING SYNTHROID Yes [id number] TAKE 1 U nivers 150 mcg 1-02 TABLET BY ity of tablet 00:00: MOUTH [place] 00 EVERY DAY Medical IN THE [place] MORNING SYNTHROID 0 3- No [id number] TAKE 1 [facility] 150 mcg 1-02 05-21 TABLET BY ity of tablet 00:00: 00:00 MOUTH [place] 00 :00 EVERY DAY Medical IN THE [place] MORNING ZONISAMIDE 2021-03 Yes [id number] TAKE 1 [facility] 100 mg 2-27 CAPSULE BY ity of capsule 00:00: MOUTH [place] 00 TWICE A Medical DAY Branch ZONISAMIDE 2021-03 Yes [id number] TAKE 1 [facility] 100 mg 2-27 CAPSULE BY ity of capsule 00:00: MOUTH [place] 00 TWICE A Medical DAY Branch ZONISAMIDE 2021-03 Yes [id number] TAKE 1 [facility] 100 mg 2-27 CAPSULE BY ity of capsule 00:00: MOUTH [place] 00 TWICE A Medical DAY Branch ZONISAMIDE 2021-03 Yes [id number] TAKE 1 [facility] 100 mg 2-27 CAPSULE BY ity of capsule 00:00: MOUTH [place] 00 TWICE A Medical DAY Branch ZONISAMIDE 2021-03 Yes [id number] TAKE 1 [facility] 100 mg 2-27 CAPSULE BY ity of capsule 00:00: MOUTH [place] 00 TWICE A Medical DAY Branch ZONISAMIDE 2021-03 Yes [id number] TAKE 1 [facility] 100 mg 2-27 CAPSULE BY ity of capsule 00:00: MOUTH [place] 00 TWICE A Medical DAY Branch ZONISAMIDE 2021-03 Yes [id number] TAKE 1 [facility] 100 mg 2-27 CAPSULE BY ity of capsule 00:00: MOUTH [place] 00 TWICE A Medical DAY Branch ZONISAMIDE 2021-03 Yes [id number] TAKE 1 [facility] 100 mg 2-27 CAPSULE BY ity of capsule 00:00: MOUTH [place] 00 TWICE A Medical DAY Branch ZONISAMIDE 2021-03 Yes [id number] TAKE 1 [facility] 100 mg 2-27 CAPSULE BY ity of capsule 00:00: MOUTH [place] 00 TWICE A Medical DAY Branch ZONISAMIDE 2021-03 Yes [id number] TAKE 1 [facility] 100 mg 2-27 CAPSULE BY ity of capsule 00:00: MOUTH [place] 00 TWICE A Medical DAY Branch ZONISAMIDE 2021-03 Yes [id number] TAKE 1 [facility] 100 mg 2-27 CAPSULE BY ity of capsule 00:00: MOUTH [place] TWICE A Medical DAY Branch ZONISAMIDE 2021-03 Yes [id number] TAKE 1 [facility] 100 mg 2-27 CAPSULE BY ity of capsule 00:00: MOUTH [place] TWICE A Medical DAY Branch ZONISAMIDE 2021-03 Yes [id number] TAKE 1 [facility] 100 mg 2-27 CAPSULE BY ity of capsule 00:00: MOUTH [place] TWICE A Medical DAY Branch ZONISAMIDE 2021-03 Yes [id number] TAKE 1 [facility] 100 mg 2-27 CAPSULE BY ity of capsule 00:00: MOUTH [place] TWICE A Medical DAY Branch ZONISAMIDE 2021-03 Yes [id number] TAKE 1 [facility] 100 mg 2-27 CAPSULE BY ity of capsule 00:00: MOUTH TWICE A Medical DAY Branch ZONISAMIDE 2021-03 Yes [id number] TAKE 1 [facility] 100 mg 2-27 CAPSULE BY ity of capsule 00:00: MOUTH [place] TWICE A Medical DAY Branch ZONISAMIDE 2021-03 Yes [id number] TAKE 1 [facility] 100 mg 2-27 CAPSULE BY ity of capsule 00:00: MOUTH [place] TWICE A Medical DAY Branch ZONISAMIDE 2021-03 Yes [id number] TAKE 1 [facility] 100 mg 2-27 CAPSULE BY ity of capsule 00:00: MOUTH TWICE A Medical DAY Branch ZONISAMIDE 2021-03 Yes [id number] TAKE 1 [facility] 100 mg 2-27 CAPSULE BY ity of capsule 00:00: MOUTH [place] TWICE A Medical DAY Branch ZONISAMIDE 2021-03 Yes [id number] TAKE 1 [facility] 100 mg 2-27 CAPSULE BY ity of capsule 00:00: MOUTH [place] TWICE A Medical DAY Branch ZONISAMIDE 2021-03 Yes [id number] TAKE 1 [facility] 100 mg 2-27 CAPSULE BY ity of capsule 00:00: MOUTH [place] 00 TWICE A Medical DAY Branch ZONISAMIDE 2021-03 Yes [id number] TAKE 1 [facility] 100 mg 2-27 CAPSULE BY ity of capsule 00:00: MOUTH [place] TWICE A Medical DAY Branch ZONISAMIDE 2021-03 Yes [id number] TAKE 1 [facility] 100 mg 2-27 CAPSULE BY ity of capsule 00:00: MOUTH [place] 00 TWICE A Medical DAY Branch ZONISAMIDE 2021-03 Yes [id number] TAKE 1 [facility] 100 mg 2-27 CAPSULE BY ity of capsule 00:00: MOUTH [place] 00 TWICE A Medical DAY Branch ZONISAMIDE 2021-03 Yes [id number] TAKE 1 [facility] 100 mg 2-27 CAPSULE BY ity of capsule 00:00: MOUTH [place] 00 TWICE A Medical DAY Branch ZONISAMIDE 2021-03 Yes [id number] TAKE 1 [facility] 100 mg 2-27 CAPSULE BY ity of capsule 00:00: MOUTH [place] 00 TWICE A Medical DAY Branch ZONISAMIDE 2021-03 Yes [id number] TAKE 1 [facility] 100 mg 2-27 CAPSULE BY ity of capsule 00:00: MOUTH [place] 00 TWICE A Medical DAY Branch ZONISAMIDE 2021-03 Yes [id number] TAKE 1 [facility] 100 mg 2-27 CAPSULE BY ity of capsule 00:00: MOUTH [place] 00 TWICE A Medical DAY Branch ZONISAMIDE 2021-03 Yes [id number] TAKE 1 [facility] 100 mg 2-27 CAPSULE BY ity of capsule 00:00: MOUTH [place] 00 TWICE A Medical DAY Branch ZONISAMIDE 2021-03 Yes [id number] TAKE 1 [facility] 100 mg 2-27 CAPSULE BY ity of capsule 00:00: MOUTH [place] 00 TWICE A Medical DAY Branch ZONISAMIDE 2021-03 Yes [id number] TAKE 1 [facility] 100 mg 2-27 CAPSULE BY ity of capsule 00:00: MOUTH [place] 00 TWICE A Medical DAY Branch ZONISAMIDE 2021-03 Yes [id number] TAKE 1 [facility] 100 mg 2-27 CAPSULE BY ity of capsule 00:00: MOUTH [place] 00 TWICE A Medical DAY Branch ZONISAMIDE 2021-03 Yes [id number] TAKE 1 [facility] 100 mg 2-27 CAPSULE BY ity of capsule 00:00: MOUTH [place] 00 TWICE A Medical DAY Branch ZONISAMIDE 2021-03 Yes [id number] TAKE 1 [facility] 100 mg 2-27 CAPSULE BY ity of capsule 00:00: MOUTH [place] 00 TWICE A Medical DAY Branch ZONISAMIDE 2021-03- No [id number] TAKE 1 [facility] 100 mg 2-27 03-27 CAPSULE BY ity of capsule 00:00: 00:00 MOUTH [place] 00 :00 TWICE A Medical DAY Branch dextroamphe 2021-03 Yes [id number] 15mg Take 1 [facility] tamine-amph 2-20 tablet by ity of etamine 00:00: mouth in [place] ([facility]) 00 the Medical 15 mg morning Branch tablet and 1 tablet at noon and 1 tablet in the evening. dextroamphe 2021-03 Yes [id number] 20mg Take 1 [facility] tamine-amph 2-20 tablet by ity of etamine 00:00: mouth in [place] ([facility]) 00 the Medical 20 mg morning Branch tablet and 1 tablet at noon and 1 tablet in the evening. dextroamphe 2021-03 Yes [id number] 20mg Take 1 [facility] tamine-amph 2-20 tablet by ity of etamine 00:00: mouth in [place] ([facility]) 00 the Medical 20 mg morning Branch tablet and 1 tablet at noon and 1 tablet in the evening. dextroamphe 2021-03 Yes [id number] 15mg Take 1 [facility] tamine-amph 2-20 tablet by ity of etamine 00:00: mouth in [place] ([facility]) 00 the Medical 15 mg morning Branch tablet and 1 tablet at noon and 1 tablet in the evening. dextroamphe 2021-03 Yes [id number] 20mg Take 1 [facility] tamine-amph 2-20 tablet by ity of etamine 00:00: mouth in [place] ([facility]) 00 the Medical 20 mg morning Branch tablet and 1 tablet at noon and 1 tablet in the evening. dextroamphe 2021-03 Yes [id number] 15mg Take 1 [facility] tamine-amph 2-20 tablet by ity of etamine 00:00: mouth in [place] ([facility]) 00 the Medical 15 mg morning Branch tablet and 1 tablet at noon and 1 tablet in the evening. dextroamphe 2021-03 Yes [id number] 20mg Take 1 [facility] tamine-amph 2-20 tablet by ity of etamine 00:00: mouth in [place] ([facility]) 00 the Medical 20 mg morning Branch tablet and 1 tablet at noon and 1 tablet in the evening. dextroamphe 2021-03 Yes [id number] 15mg Take 1 [facility] tamine-amph 2-20 tablet by ity of etamine 00:00: mouth in [place] ([facility]) 00 the Medical 15 mg morning Branch tablet and 1 tablet at noon and 1 tablet in the evening. dextroamphe 2021-03 Yes [id number] 20mg Take 1 [facility] tamine-amph 2-20 tablet by ity of etamine 00:00: mouth in [place] ([facility]) 00 the Medical 20 mg morning Branch tablet and 1 tablet at noon and 1 tablet in the evening. dextroamphe 2021-03 Yes [id number] 15mg Take 1 [facility] tamine-amph 2-20 tablet by ity of etamine 00:00: mouth in [place] ([facility]) 00 the Medical 15 mg morning Branch tablet and 1 tablet at noon and 1 tablet in the evening. dextroamphe 2021-03 Yes [id number] 20mg Take 1 [facility] tamine-amph 2-20 tablet by ity of etamine 00:00: mouth in [place] ([facility]) 00 the Medical 20 mg morning Branch tablet and 1 tablet at noon and 1 tablet in the evening. dextroamphe 2021-03 Yes [id number] 20mg Take 1 [facility] tamine-amph 2-20 tablet by ity of etamine 00:00: mouth in [place] ([facility]) 00 the Medical 20 mg morning Branch tablet and 1 tablet at noon and 1 tablet in the evening. dextroamphe 2021-03 Yes [id number] 20mg Take 1 [facility] tamine-amph 2-20 tablet by ity of etamine 00:00: mouth in [place] ([facility]) 00 the Medical 20 mg morning Branch tablet and 1 tablet at noon and 1 tablet in the evening. dextroamphe 2021-03- No [id number] 20mg Take 1 [facility] tamine-amph 2-20 - tablet by it y of etamine 00:00: 00:00 mouth in [place] ([facility]) 00 :00 the Medical 20 mg morning Branch tablet and 1 tablet at noon and 1 tablet in the evening. dextroamphe 2021-03- No [id number] 15mg Take 1 [facility] tamine-amph 2-20 -09 tablet by it y of etamine 00:00: 00:00 mouth in [place] [facility] :00 the Medical 15 mg morning [...] :00 dose, On Medi gustavo tablet 1 [facility] Branch tablet 03/10/22 at 1915, [facility] SERTRALINE 2021-03 Yes [id number] TAKE 1 [facility] 100 mg 2-13 TABLET BY ity of tablet 00:00: MOUTH [place] 00 EVERY DAY Medical Branch SERTRALINE 2021-03 Yes [id number] TAKE 1 [facility] 100 mg 2-13 TABLET BY ity of tablet 00:00: MOUTH [place] 00 DAY Medical Branch SERTRALINE 2021-03 Yes [id number] TAKE 1 [facility] 100 mg 2-13 TABLET BY ity of tablet 00:00: MOUTH [place] 00 EVERY DAY Medical Branch SERTRALINE 2021-03 Yes [id number] TAKE 1 [facility] 100 mg 2-13 TABLET BY ity of tablet 00:00: MOUTH [place] 00 EVERY DAY Medical Branch SERTRALINE 2021-03 Yes [id number] TAKE 1 [facility] 100 mg 2-13 TABLET BY ity of tablet 00:00: MOUTH [place] 00 DAY Medical Branch SERTRALINE 2021-03 Yes [id number] TAKE 1 [facility] 100 mg 2-13 TABLET BY ity of tablet 00:00: MOUTH [place] 00 EVERY DAY Medical Branch SERTRALINE 2021-03 Yes [id number] TAKE 1 [facility] 100 mg 2-13 TABLET BY ity of tablet 00:00: MOUTH [place] 00 EVERY DAY Medical Branch SERTRALINE 2021-03 Yes [id number] TAKE 1 [facility] 100 mg 2-13 TABLET BY ity of tablet 00:00: MOUTH [place] 00 EVERY DAY Medical Branch SERTRALINE 2021-03 Yes [id number] TAKE 1 [facility] 100 mg 2-13 TABLET BY ity of tablet 00:00: MOUTH [place] 00 EVERY DAY Medical Branch SERTRALINE 2021-03 Yes [id number] TAKE 1 [facility] 100 mg 2-13 TABLET BY ity of tablet 00:00: MOUTH [place] 00 EVERY DAY Medical Branch SERTRALINE 2021-03 Yes [id number] TAKE 1 [facility] 100 mg 2-13 TABLET BY ity of tablet 00:00: MOUTH [place] 00 EVERY DAY Medical Branch SERTRALINE 2021-03 Yes [id number] TAKE 1 [facility] 100 mg 2-13 TABLET BY ity of tablet 00:00: MOUTH [place] 00 EVERY DAY Medical Branch SERTRALINE 2021-03 Yes [id number] TAKE 1 [facility] 100 mg 2-13 TABLET BY ity of tablet 00:00: MOUTH [place] EVERY DAY Medical Branch SERTRALINE 2021-03 Yes [id number] TAKE 1 [facility] 100 mg 2-13 TABLET BY ity of tablet 00:00: MOUTH [place] 00 EVERY DAY Medical Branch SERTRALINE 2021-03 Yes [id number] TAKE 1 [facility] 100 mg 2-13 TABLET BY ity of tablet 00:00: MOUTH [place] EVERY DAY Medical Branch SERTRALINE 2021-03 Yes [id number] TAKE 1 [facility] 100 mg 2-13 TABLET BY ity of tablet 00:00: MOUTH [place] EVERY DAY Medical Branch SERTRALINE 2021-03 Yes [id number] TAKE 1 [facility] 100 mg 2-13 TABLET BY ity of tablet 00:00: MOUTH 00 EVERY DAY Medical Branch SERTRALINE 2021-03 Yes [id number] TAKE 1 [facility] 100 mg 2-13 TABLET BY ity of tablet 00:00: MOUTH [place] EVERY DAY Medical Branch SERTRALINE 2021-03 Yes [id number] TAKE 1 [facility] 100 mg 2-13 TABLET BY ity of tablet 00:00: MOUTH [place] EVERY DAY Medical Branch SERTRALINE 2021-03 Yes [id number] TAKE 1 [facility] 100 mg 2-13 TABLET BY ity of tablet 00:00: MOUTH [place] 00 EVERY DAY Medical Branch SERTRALINE 2021-03 Yes [id number] TAKE 1 [facility] 100 mg 2-13 TABLET BY ity of tablet 00:00: MOUTH [place] 00 EVERY DAY Medical Branch SERTRALINE 2021-03 Yes [id number] TAKE 1 [facility] 100 mg 2-13 TABLET BY ity of tablet 00:00: MOUTH [place] 00 EVERY DAY Medical Branch SERTRALINE 2021-03 Yes [id number] TAKE 1 [facility] 100 mg 2-13 TABLET BY ity of tablet 00:00: MOUTH [place] EVERY DAY Medical Branch SERTRALINE 2021-03 Yes [id number] TAKE 1 [facility] 100 mg 2-13 TABLET BY ity of tablet 00:00: MOUTH [place] 00 EVERY DAY Medical Branch SERTRALINE 2021-03 Yes [id number] TAKE 1 [facility] 100 mg 2-13 TABLET BY ity of tablet 00:00: MOUTH 00 EVERY DAY Medical Branch SERTRALINE 2021-03 Yes [id number] TAKE 1 [facility] 100 mg 2-13 TABLET BY ity of tablet 00:00: MOUTH 00 EVERY DAY Medical Branch SERTRALINE 2021-03 Yes [id number] TAKE 1 [facility] 100 mg 2-13 TABLET BY ity of tablet 00:00: MOUTH [place] 00 EVERY DAY Medical Branch SERTRALINE 2021-03 Yes [id number] TAKE 1 [facility] 100 mg 2-13 TABLET BY ity of tablet 00:00: MOUTH 00 EVERY DAY Medical Branch SERTRALINE 2021-03 Yes [id number] TAKE 1 [facility] 100 mg 2-13 TABLET BY ity of tablet 00:00: MOUTH 00 EVERY DAY Medical Branch SERTRALINE 2021-03 Yes [id number] TAKE 1 [facility] 100 mg 2-13 TABLET BY ity of tablet 00:00: MOUTH EVERY DAY Medical Branch SERTRALINE 2021-03 Yes [id number] TAKE 1 [facility] 100 mg 2-13 TABLET BY ity of tablet 00:00: MOUTH 00 EVERY DAY Medical Branch SERTRALINE 2021-03 Yes [id number] TAKE 1 [facility] 100 mg 2-13 TABLET BY ity of tablet 00:00: MOUTH [place] 00 EVERY DAY Medical Branch SERTRALINE 2021-03 Yes [id number] TAKE 1 [facility] 100 mg 2-13 TABLET BY ity of tablet 00:00: MOUTH [place] EVERY DAY Medical Branch SERTRALINE 2021-03 Yes [id number] TAKE 1 [facility] 100 mg 2-13 TABLET BY ity of tablet 00:00: MOUTH 00 EVERY DAY Medical Branch SERTRALINE 2021-03 Yes [id number] TAKE 1 [facility] 100 mg 2-13 TABLET BY ity of tablet 00:00: MOUTH [place] 00 EVERY DAY Medical Branch SERTRALINE 2021-03 Yes [id number] TAKE 1 [facility] 100 mg 2-13 TABLET BY ity of tablet 00:00: MOUTH [place] 00 EVERY DAY Medical Branch SERTRALINE 2021-03 Yes [id number] TAKE 1 [facility] 100 mg 2-13 TABLET BY ity of tablet 00:00: MOUTH [place] 00 EVERY DAY Medical Branch SERTRALINE 2021-03 Yes [id number] TAKE 1 [facility] 100 mg 2-13 TABLET BY ity of tablet 00:00: MOUTH [place] 00 EVERY DAY Medical Branch SERTRALINE 2021-03 Yes [id number] TAKE 1 [facility] 100 mg 2-13 TABLET BY ity of tablet 00:00: MOUTH [place] 00 EVERY DAY Medical Branch SERTRALINE 2021-03 Yes [id number] TAKE 1 [facility] 100 mg 2-13 TABLET BY ity of tablet 00:00: MOUTH [place] 00 EVERY DAY Medical Branch SERTRALINE 2021-03 Yes [id number] TAKE 1 [facility] 100 mg 2-13 TABLET BY ity of tablet 00:00: MOUTH [place] 00 EVERY DAY Medical Branch SERTRALINE 2021-03 Yes [id number] TAKE 1 [facility] 100 mg 2-13 TABLET BY ity of tablet 00:00: MOUTH [place] 00 EVERY DAY Medical Branch SERTRALINE 2021-03 Yes [id number] TAKE 1 [facility] 100 mg 2-13 TABLET BY ity of tablet 00:00: MOUTH [place] 00 EVERY DAY Medical Branch SERTRALINE 2021-03 Yes [id number] TAKE 1 [facility] 100 mg 2-13 TABLET BY ity of tablet 00:00: MOUTH [place] 00 EVERY DAY Medical Branch SERTRALINE 2021-03 Yes [id number] TAKE 1 [facility] 100 mg 2-13 TABLET BY ity of tablet 00:00: MOUTH [place] 00 EVERY DAY Medical Branch SERTRALINE 2021-03 Yes [id number] TAKE 1 [facility] 100 mg 2-13 TABLET BY ity of tablet 00:00: MOUTH [place] 00 EVERY DAY Medical Branch SERTRALINE 2021-03 Yes [id number] TAKE 1 [facility] 100 mg 2-13 TABLET BY ity of tablet 00:00: MOUTH [place] 00 EVERY DAY Medical Branch SERTRALINE 2021-03 Yes [id number] TAKE 1 [facility] 100 mg 2-13 TABLET BY ity of tablet 00:00: MOUTH [place] 00 EVERY DAY Medical Branch SERTRALINE 2021-03 Yes [id number] TAKE 1 [facility] 100 mg 2-13 TABLET BY ity of tablet 00:00: MOUTH [place] 00 EVERY DAY Medical Branch SERTRALINE 2021-03 Yes [id number] TAKE 1 [facility] 100 mg 2-13 TABLET BY ity of tablet 00:00: MOUTH [place] 00 EVERY DAY Medical Branch SERTRALINE 2021-03 Yes [id number] TAKE 1 [facility] 100 mg 2-13 TABLET BY ity of tablet 00:00: MOUTH [place] 00 EVERY DAY Medical Branch SERTRALINE 2021-03 Yes [id number] TAKE 1 [facility] 100 mg 2-13 TABLET BY ity of tablet 00:00: MOUTH [place] 00 EVERY DAY Medical Branch SERTRALINE 2021- Yes [id number] TAKE 1 [facility] 100 mg 2-13 TABLET BY ity of tablet 00:00: MOUTH [place] 00 EVERY DAY Medical Branch SERTRALINE 2021- Yes [id number] TAKE 1 [facility] 100 mg 2-13 TABLET BY ity of tablet 00:00: MOUTH [place] 00 EVERY DAY Medical Branch SERTRALINE 2021-03 Yes [id number] TAKE 1 [facility] 100 mg 2-13 TABLET BY ity of tablet 00:00: MOUTH [place] 00 EVERY DAY Medical Branch SERTRALINE 2021-03 Yes [id number] TAKE 1 [facility] 100 mg 2-13 TABLET BY ity of tablet 00:00: MOUTH [place] 00 EVERY DAY Medical Branch SERTRALINE 2021-03 Yes [id number] TAKE 1 [facility] 100 mg 2-13 TABLET BY ity of tablet 00:00: MOUTH [place] 00 EVERY DAY Medical Branch SERTRALINE 2021-03 2023- No [id number] TAKE 1 [facility] 100 mg 2-13 05-01 TABLET BY ity of tablet 00:00: 00:00 MOUTH [place] 00 :00 EVERY DAY Medical Branch cephALEXin 2021- Yes [id number] 500mg Take 1 [facility] 500 mg 1-28 capsule by ity of capsule 00:00: mouth in [place] 00 the Medical morning Branch and 1 capsule in the evening. cephALEXin 2021-03 Yes [id number] 500mg Take 1 [facility] 500 mg 1-28 capsule by ity of capsule 00:00: mouth in [place] 00 the Medical morning Branch and 1 capsule in the evening. cephALEXin 2021-03 Yes [id number] 500mg Take 1 [facility] 500 mg 1-28 capsule by ity of capsule 00:00: mouth in [place] 00 the Medical morning Branch and 1 capsule in the evening. cephALEXin 2021- Yes [id number] 500mg Take 1 [facility] 500 mg 1-28 capsule by ity of capsule 00:00: mouth in [place] 00 the Medical morning Branch and 1 capsule in the evening. cephALEXin 2021-03 Yes [id number] 500mg Take 1 [facility] 500 mg 1-28 capsule by ity of capsule 00:00: mouth in [place] 00 the Medical morning Branch and 1 capsule in the evening. cephALEXin 2022-1 Yes [id number] 500mg Take 1 [facility] 500 mg 1-28 capsule by ity of capsule 00:00: mouth in [place] [address] the Medical morning Branch and 1 capsule in the evening. cephALEXin 2022-1 Yes [id number] 500mg Take 1 [facility] 500 mg 1-28 capsule by ity of capsule 00:00: mouth in [place] [address] the Medical morning Branch and 1 capsule in the evening. cephALEXin 202-1 Yes [id number] 500mg Take 1 [facility] 500 mg 1-28 capsule by ity of capsule 00:00: mouth in [place] [address] the Medical morning Branch and 1 capsule in the evening. cephALEXin 2022-1 Yes [id number] 500mg Take 1 [facility] 500 mg 1-28 capsule by ity of capsule 00:00: mouth in [place] [address] the Medical morning Branch and 1 capsule in the evening. cephALEXin 2021-1 Yes [id number] 500mg Take 1 [facility] 500 mg 1-28 capsule by ity of capsule 00:00: mouth in [place] [address] the Medical morning [place] and 1 capsule in the evening. cephALEXin 2021-1 Yes [id number] 500mg Take 1 [facility] 500 mg 1-28 capsule by ity of capsule 00:00: mouth in [place] [address] the Medical morning [place] and 1 capsule in the evening. cephALEXin 2-1 Yes [id number] 500mg Take 1 [facility] 500 mg 1-28 capsule by ity of capsule 00:00: mouth in [place] [address] the Medical morning [place] and 1 capsule in the evening. cephALEXin 2021-1 Yes [id number] 500mg Take 1 [facility] 500 mg 1-28 capsule by ity of capsule 00:00: mouth in [place] [address] the Medical morning Branch and 1 capsule in the evening. cephALEXin 2022-1 Yes [id number] 500mg Take 1 [facility] 500 mg 1-28 capsule by ity of capsule 00:00: mouth in [place] [address] the Medical morning Branch and 1 capsule in the evening. cephALEXin 2022-1 Yes [id number] 500mg Take 1 [facility] 500 mg 1-28 capsule by ity of capsule 00:00: mouth in [place] [address] the Medical morning Branch and 1 capsule in the evening. cephALEXin 2022-1 Yes [id number] 500mg Take 1 [facility] 500 mg 1-28 capsule by ity of capsule 00:00: mouth in [address] Medical morning [place] and 1 capsule in the evening. cephALEXin 2022-1 Yes [id number] 500mg Take 1 [facility] 500 mg 1-28 capsule by ity of capsule 00:00: mouth in [place] 00 the Medical morning Branch and 1 capsule in the evening. cephALEXin 2021-03 Yes [id number] 500mg Take 1 [facility] 500 mg 1-28 capsule by ity of capsule 00:00: mouth in [place] 00 the Medical morning Branch and 1 capsule in the evening. cephALEXin 2021-03 Yes [id number] 500mg Take 1 [facility] 500 mg 1-28 capsule by ity of capsule 00:00: mouth in [place] 00 the Medical morning Branch and 1 capsule in the evening. cephALEXin 2021-03 Yes [id number] 500mg Take 1 [facility] 500 mg 1-28 capsule by ity of capsule 00:00: mouth in [place] 00 the Medical morning Branch and 1 capsule in the evening. cephALEXin 2021-03 Yes [id number] 500mg Take 1 [facility] 500 mg 1-28 capsule by ity of capsule 00:00: mouth in [place] [address] the Medical morning Branch and 1 capsule in the evening. cephALEXin 2021-03 Yes [id number] 500mg Take 1 [facility] 500 mg 1-28 capsule by ity of capsule 00:00: mouth in [place] 00 the Medical morning Branch and 1 capsule in the evening. cephALEXin 2021-03 Yes [id number] 500mg Take 1 [facility] 500 mg 1-28 capsule by ity of capsule 00:00: mouth in [place] 00 the Medical morning Branch and 1 capsule in the evening. cephALEXin 2021-03 Yes [id number] 500mg Take 1 [facility] 500 mg 1-28 capsule by ity of capsule 00:00: mouth in [place] 00 the Medical morning Branch and 1 capsule in the evening. dextroamphe 2021-03 Yes [id number] 20mg Take 1 [facility] tamine-amph 1-28 tablet by ity of etamine 00:00: mouth in [place] ([facility]) 00 the Medical 20 mg morning Branch tablet and 1 tablet at noon and 1 tablet in the evening. clonazePAM 2021-03 Yes [id number] 1mg Take 1 [facility] 1 mg tablet 1-28 tablet by ity of 00:00: mouth in [place] 00 the Medical morning Branch and 1 tablet at noon and 1 tablet in the evening. cephALEXin 2021-03 Yes [id number] 500mg Take 1 [facility] 500 mg 1-28 capsule by ity of capsule 00:00: mouth in [place] 00 the Medical morning Branch and 1 capsule in the evening. dextroamphe 2021- Yes [id number] 20mg Take 1 [facility] tamine-amph 1-28 tablet by ity of etamine 00:00: mouth in [place] ([facility]) 00 the Medical 20 mg morning Branch tablet and 1 tablet at noon and 1 tablet in the evening. clonazePAM 2021- Yes [id number] 1mg Take 1 [facility] 1 mg tablet 1-28 tablet by ity of 00:00: mouth in [place] 00 the Medical morning Branch and 1 tablet at noon and 1 tablet in the evening. cephALEXin 2021-03 Yes [id number] 500mg Take 1 [facility] 500 mg 1-28 capsule by ity of capsule 00:00: mouth in [place] 00 the Medical morning Branch and 1 capsule in the evening. dextroamphe 2021-03 Yes [id number] 20mg Take 1 [facility] tamine-amph 1-28 tablet by ity of etamine 00:00: mouth in [place] ([facility]) 00 the Medical 20 mg morning Branch tablet and 1 tablet at noon and 1 tablet in the evening. clonazePAM 2021-03 Yes [id number] 1mg Take 1 [facility] 1 mg tablet 1-28 tablet by ity of 00:00: mouth in [place] 00 the Medical morning Branch and 1 tablet at noon and 1 tablet in the evening. cephALEXin 2021-03 Yes [id number] 500mg Take 1 [facility] 500 mg 1-28 capsule by ity of capsule 00:00: mouth in [place] 00 the Medical morning Branch and 1 capsule in the evening. dextroamphe 2021-03 Yes [id number] 20mg Take 1 [facility] tamine-amph 1-28 tablet by ity of etamine 00:00: mouth in [place] [facility] 00 the Medical 20 mg morning Branch tablet and 1 tablet at noon and 1 tablet in the evening. clonazePAM 2021- Yes [id number] 1mg Take 1 [facility] 1 mg tablet 1-28 tablet by ity of 00:00: mouth in [place] 00 the Medical morning Branch and 1 tablet at noon and 1 tablet in the evening. cephALEXin 2021- Yes [id number] 500mg Take 1 [facility] 500 mg 1-28 capsule by ity of capsule 00:00: mouth in [place] [address] the Medical morning Branch and 1 capsule in the evening. dextroamphe 2021-1 Yes [id number] 20mg Take 1 [facility] tamine-amph 1-28 tablet by ity of etamine 00:00: mouth in [place] ([facility]) 00 the Medical 20 mg morning Branch tablet and 1 tablet at noon and 1 tablet in the evening. clonazePAM 2021- Yes [id number] 1mg Take 1 [facility] 1 mg tablet 1-28 tablet by ity of 00:00: mouth in [place] 00 the Medical morning Branch and 1 tablet at noon and 1 tablet in the evening. cephALEXin 2021- Yes [id number] 500mg Take 1 [facility] 500 mg 1-28 capsule by [facility] of capsule 00:00: mouth in [place] 00 the Medical morning Branch and 1 capsule in the evening. dextroamphe 2021- Yes [id number] 20mg Take 1 [facility] tamine-amph 1-28 tablet by ity of etamine 00:00: mouth in [place] ([facility]) 00 the Medical 20 mg morning Branch tablet and 1 tablet at noon and 1 tablet in the evening. clonazePAM 2021- Yes [id number] 1mg Take 1 [facility] 1 mg tablet 1-28 tablet by ity of 00:00: mouth in [place] 00 the Medical morning Branch and 1 tablet at noon and 1 tablet in the evening. cephALEXin 2021- Yes [id number] 500mg Take 1 [facility] 500 mg 1-28 capsule by ity of capsule 00:00: mouth in [place] 00 the Medical morning Branch and 1 capsule in the evening. clonazePAM 2021-1 Yes [id number] 1mg Take 1 [facility] 1 mg tablet 1-28 tablet by ity of 00:00: mouth in [place] 00 the Medical morning Branch and 1 tablet at noon and 1 tablet in the evening. cephALEXin 2021-1 Yes [id number] 500mg Take 1 [facility] 500 mg 1-28 capsule by ity of capsule 00:00: mouth in [place] 00 the Medical morning Branch and 1 capsule in the evening. clonazePAM 2021-1 Yes [id number] 1mg Take 1 [facility] 1 mg tablet 1-28 tablet by ity of 00:00: mouth in [place] 00 the Medical morning Branch and 1 tablet at noon and 1 tablet in the evening. cephALEXin 2021-1 Yes [id number] 500mg Take 1 [facility] 500 mg 1-28 capsule by ity of capsule 00:00: mouth in [address] Medical morning [place] and 1 capsule in the evening. clonazePAM 2022-1 Yes [id number] 1mg Take 1 [facility] 1 mg tablet 1-28 tablet by ity of 00:00: mouth in [address] morning [place] and 1 tablet at noon and 1 tablet in the evening. cephALEXin 2021-1 Yes [id number] 500mg Take 1 [facility] 500 mg 1-28 capsule by ity of capsule 00:00: mouth in [address] morning [place] and 1 capsule in the evening. clonazePAM 2021-1 Yes [id number] 1mg Take 1 [facility] 1 mg tablet 1-28 tablet by ity of 00:00: mouth in [address] morning [place] and 1 tablet at noon and 1 tablet in the evening. cephALEXin 2021-1 Yes [id number] 500mg Take 1 [facility] 500 mg 1-28 capsule by ity of capsule 00:00: mouth in [address] morning [place] and 1 capsule in the evening. clonazePAM 2021-1 Yes [id number] 1mg Take 1 [facility] 1 mg tablet 1-28 tablet by ity of 00:00: mouth in [address] morning [place] and 1 tablet at noon and 1 tablet in the evening. cephALEXin 2021-1 Yes [id number] 500mg Take 1 [facility] 500 mg 1-28 capsule by ity of capsule 00:00: mouth in [address] morning [place] and 1 capsule in the evening. clonazePAM 2021-1 Yes [id number] 1mg Take 1 [facility] 1 mg tablet 1-28 tablet by ity of 00:00: mouth in [address] morning [place] and 1 tablet at noon and 1 tablet in the evening. cephALEXin 2021-1 Yes [id number] 500mg Take 1 [facility] 500 mg 1-28 capsule by ity of capsule 00:00: mouth in [address] morning [place] and 1 capsule in the evening. clonazePAM 2022-1 Yes [id number] 1mg Take 1 [facility] 1 mg tablet 1-28 tablet by ity of 00:00: mouth in [address] morning [place] and 1 tablet at noon and 1 tablet in the evening. cephALEXin 2022-1 Yes [id number] 500mg Take 1 [facility] 500 mg 1-28 capsule by ity of capsule 00:00: mouth in [place] 00 the Medical morning Branch and 1 capsule in the evening. clonazePAM 2022-1 Yes [id number] 1mg Take 1 [facility] 1 mg tablet 1-28 tablet by ity of 00:00: mouth in [place] [address] the [facility] morning Branch and 1 tablet at noon and 1 tablet in the evening. cephALEXin 2021-1 Yes [id number] 500mg Take 1 [facility] 500 mg 1-28 capsule by ity of capsule 00:00: mouth in [address] morning [place] and 1 capsule in the evening. clonazePAM 2021-1 Yes [id number] 1mg Take 1 [facility] 1 mg tablet 1-28 tablet by ity of 00:00: mouth in [address] morning [place] and 1 tablet at noon and 1 tablet in the evening. cephALEXin 2021-1 Yes [id number] 500mg Take 1 [facility] 500 mg 1-28 capsule by ity of capsule 00:00: mouth in [address] morning [place] and 1 capsule in the evening. clonazePAM 2021-1 Yes [id number] 1mg Take 1 [facility] 1 mg tablet 1-28 tablet by ity of 00:00: mouth in [address] morning [place] and 1 tablet at noon and 1 tablet in the evening. cephALEXin 2021-1 Yes [id number] 500mg Take 1 [facility] 500 mg 1-28 capsule by ity of capsule 00:00: mouth in [address] and 1 capsule in the evening. clonazePAM 2021-1 Yes [id number] 1mg Take 1 [facility] 1 mg tablet 1-28 tablet by ity of 00:00: mouth in [address] morning [place] and 1 tablet at noon and 1 tablet in the evening. cephALEXin 2-1 Yes [id number] 500mg Take 1 [facility] 500 mg 1-28 capsule by ity of capsule 00:00: mouth in [address] morning [place] and 1 capsule in the evening. clonazePAM 2022-1 Yes [id number] 1mg Take 1 [facility] 1 mg tablet 1-28 tablet by ity of 00:00: mouth in [address] morning [place] and 1 tablet at noon and 1 tablet in the evening. cephALEXin 2022-1 Yes [id number] 500mg Take 1 [facility] 500 mg 1-28 capsule by ity of capsule 00:00: mouth in [address] morning [place] and 1 capsule in the evening. clonazePAM 2022-1 Yes [id number] 1mg Take 1 [facility] 1 mg tablet 1-28 tablet by ity of 00:00: mouth in [place] [address] the Medical morning Branch and 1 tablet at noon and 1 tablet in the evening. cephALEXin 2021-1 Yes [id number] 500mg Take 1 [facility] 500 mg 1-28 capsule by ity of capsule 00:00: mouth in [place] [address] the Medical morning [place] and 1 capsule in the evening. clonazePAM 2021-1 Yes [id number] 1mg Take 1 [facility] 1 mg tablet 1-28 tablet by ity of 00:00: mouth in [address] morning [place] and 1 tablet at noon and 1 tablet in the evening. cephALEXin 2021-1 Yes [id number] 500mg Take 1 [facility] 500 mg 1-28 capsule by ity of capsule 00:00: mouth in [address] morning [place] and 1 capsule in the evening. clonazePAM 2021-1 Yes [id number] 1mg Take 1 [facility] 1 mg tablet 1-28 tablet by ity of 00:00: mouth in [address] morning [place] and 1 tablet at noon and 1 tablet in the evening. cephALEXin 2021-1 Yes [id number] 500mg Take 1 [facility] 500 mg 1-28 capsule by ity of capsule 00:00: mouth in [address] morning [place] and 1 capsule in the evening. clonazePAM 2021-1 Yes [id number] 1mg Take 1 [facility] 1 mg tablet 1-28 tablet by ity of 00:00: mouth in [address] morning [place] and 1 tablet at noon and 1 tablet in the evening. cephALEXin 2021-1 Yes [id number] 500mg Take 1 [facility] 500 mg 1-28 capsule by ity of capsule 00:00: mouth in [address] morning [place] and 1 capsule in the evening. clonazePAM 2-1 Yes [id number] 1mg Take 1 [facility] 1 mg tablet 1-28 tablet by ity of 00:00: mouth in [address] morning [place] and 1 tablet at noon and 1 tablet in the evening. cephALEXin 2022-1 Yes [id number] 500mg Take 1 [facility] 500 mg 1-28 capsule by ity of capsule 00:00: mouth in [address] morning [place] and 1 capsule in the evening. clonazePAM 2022-1 Yes [id number] 1mg Take 1 [facility] 1 mg tablet 1-28 tablet by ity of 00:00: mouth in [place] [address] the Medical morning Branch and 1 tablet at noon and 1 tablet in the evening. cephALEXin 2022-1 Yes [id number] 500mg Take 1 [facility] 500 mg 1-28 capsule by ity of capsule 00:00: mouth in [place] [address] the [facility] morning Branch and 1 capsule in the evening. clonazePAM 2022-1 Yes [id number] 1mg Take 1 [facility] 1 mg tablet 1-28 tablet by ity of 00:00: mouth in [place] [address] the Medical morning Branch and 1 tablet at noon and 1 tablet in the evening. cephALEXin 2021-1 Yes [id number] 500mg Take 1 [facility] 500 mg 1-28 capsule by ity of capsule 00:00: mouth in [address] morning [place] and 1 capsule in the evening. clonazePAM 2-1 Yes [id number] 1mg Take 1 [facility] 1 mg tablet 1-28 tablet by ity of 00:00: mouth in [address] morning [place] and 1 tablet at noon and 1 tablet in the evening. cephALEXin 2021-1 Yes [id number] 500mg Take 1 [facility] 500 mg 1-28 capsule by ity of capsule 00:00: mouth in [address] morning [place] and 1 capsule in the evening. clonazePAM 2-1 Yes [id number] 1mg Take 1 [facility] 1 mg tablet 1-28 tablet by ity of 00:00: mouth in [address] morning [place] and 1 tablet at noon and 1 tablet in the evening. cephALEXin 2022-1 Yes [id number] 500mg Take 1 [facility] 500 mg 1-28 capsule by ity of capsule 00:00: mouth in [address] morning [place] and 1 capsule in the evening. clonazePAM 2022-1 Yes [id number] 1mg Take 1 [facility] 1 mg tablet 1-28 tablet by ity of 00:00: mouth in [address] morning [place] and 1 tablet at noon and 1 tablet in the evening. cephALEXin 2022-1 Yes [id number] 500mg Take 1 [facility] 500 mg 1-28 capsule by ity of capsule 00:00: mouth in [address] morning [place] and 1 capsule in the evening. clonazePAM 2022-1 Yes [id number] 1mg Take 1 [facility] 1 mg tablet 1-28 tablet by ity of 00:00: mouth in [place] 00 the Medical morning Branch and 1 tablet at noon and 1 tablet in the evening. cephALEXin 2021-03 Yes [id number] 500mg Take 1 [facility] 500 mg 1-28 capsule by ity of capsule 00:00: mouth in [place] [address] the Medical morning Branch and 1 capsule in the evening. clonazePAM 2021-03 Yes [id number] 1mg Take 1 [facility] 1 mg tablet 1-28 tablet by ity of 00:00: mouth in [place] [address] the Medical morning Branch and 1 tablet at noon and 1 tablet in the evening. cephALEXin 2021-03 Yes [id number] 500mg Take 1 [facility] 500 mg 1-28 capsule by ity of capsule 00:00: mouth in [place] [address] the Medical morning Branch and 1 capsule in the evening. cephALEXin 2021-03 Yes [id number] 500mg Take 1 [facility] 500 mg 1-28 capsule by ity of capsule 00:00: mouth in [place] [address] the [facility] morning [place] and 1 capsule in the evening. cephALEXin 2021-03 Yes [id number] 500mg Take 1 [facility] 500 mg 1-28 capsule by ity of capsule 00:00: mouth in [place] [address] the Medical morning [place] and 1 capsule in the evening. cephALEXin 2021-03 Yes [id number] 500mg Take 1 [facility] 500 mg 1-28 capsule by ity of capsule 00:00: mouth in [place] [address] the Medical morning [place] and 1 capsule in the evening. cephALEXin 2021-03 Yes [id number] 500mg Take 1 [facility] 500 mg 1-28 capsule by ity of capsule 00:00: mouth in [place] [address] the [facility] morning [place] and 1 capsule in the evening. cephALEXin 2021-03 Yes [id number] 500mg Take 1 [facility] 500 mg 1-28 capsule by ity of capsule 00:00: mouth in [place] [address] the Medical morning Branch and 1 capsule in the evening. cephALEXin 2021-03 Yes [id number] 500mg Take 1 [facility] 500 mg 1-28 capsule by ity of capsule 00:00: mouth in [place] [address] the Medical morning [place] and 1 capsule in the evening. cephALEXin 2021-03- No [id number] 500mg Take 1 [facility] 500 mg 1-28 05-09 capsule by ity of capsule 00:00: 00:00 mouth in [place] 00 :00 the Medical morning [place] and 1 capsule in the evening. cephALEXin 2021-03- No [id number] 500mg Take 1 [facility] 500 mg 1-28 05-09 capsule by ity of capsule 00:00: 00:00 mouth in [place] 00 :00 the Medical morning Branch and 1 capsule in the evening. clonazePAM 2021-03- No [id number] 1mg Take 1 [facility] 1 mg tablet 04-25 tablet by it y of 00:00: 00:00 mouth in [place] 00 :00 the Medical morning Branch and 1 tablet at noon and 1 tablet in the evening. clonazePAM 2021-03- No [id number] 1mg Take 1 [facility] 1 mg tablet 04-25 tablet by it y of 00:00: 00:00 mouth in [place] 00 :00 the Medical morning Branch and 1 tablet at noon and 1 tablet in the evening. clonazePAM 2021-03- No [id number] 1mg Take 1 [facility] 1 mg tablet 04-25 tablet by it y of 00:00: 00:00 mouth in [place] 00 :00 the Medical morning Branch and 1 tablet at noon and 1 tablet in the evening. dextroamphe 2021-03- No [id number] 20mg Take 1 [facility] tamine-amph 04-25 12-20 tablet by it y of etamine 00:00: 00:00 mouth in [place] ([facility]) 00 :00 the Medical 20 mg morning Branch tablet and 1 tablet at noon and 1 tablet in the evening. clonazePAM 2021-03 Yes [id number] 1mg Take 1 [facility] 1 mg tablet 1-01 tablet by ity of 00:00: mouth in [place] 00 the Medical morning Branch and 1 tablet at noon and 1 tablet in the evening. cephALEXin 2021-03 Yes [id number] 500mg Take 1 [facility] 500 mg 1-01 capsule by ity of capsule 00:00: mouth in [place] 00 the Medical morning Branch and 1 capsule in the evening. clonazePAM 2021-03 Yes [id number] 1mg Take 1 [facility] 1 mg tablet 1-01 tablet by ity of 00:00: mouth in [place] 00 the Medical morning Branch and 1 tablet at noon and 1 tablet in the evening. cephALEXin 2021-03 Yes [id number] 500mg Take 1 [facility] 500 mg 1-01 capsule by ity of capsule 00:00: mouth in [place] 00 the Medical morning Branch and 1 capsule in the evening. clonazePAM 2021-03- No [id number] 1mg Take 1 [facility] 1 mg tablet 03-29 tablet by it y of 00:00: 00:00 mouth in [place] 00 :00 the Medical morning Branch and 1 tablet at noon and 1 tablet in the evening. cephALEXin 2021-03- No [id number] 500mg Take 1 [facility] 500 mg 03-29 capsule by ity of capsule 00:00: 00:00 mouth in [place] 00 :00 the Medical morning Branch and 1 capsule in the evening. busPIRone 2021-03 Yes [id number] 10mg Take 1 U nivers 10 mg 0-25 tablet by ity of tablet 00:00: mouth in [place] 00 the Medical morning Branch and 1 tablet in the evening. busPIRone 2021-03 Yes [id number] 10mg Take 1 U nivers 10 mg 0-25 tablet by ity of tablet 00:00: mouth in [place] 00 the Medical morning Branch and 1 tablet in the evening. dextroamphe 2021-03 Yes [id number] 20mg Take 1 [facility] tamine-amph 0-25 tablet by ity of etamine 00:00: mouth in [place] ([facility]) 00 the Medical 20 mg morning Branch tablet and 1 tablet at noon and 1 tablet in the evening. busPIRone 2021-03 Yes [id number] 10mg Take 1 U nivers 10 mg 0-25 tablet by ity of tablet 00:00: mouth in [place] 00 the Medical morning Branch and 1 tablet in the evening. dextroamphe 2021-03 Yes [id number] 20mg Take 1 [facility] tamine-amph 0-25 tablet by ity of etamine 00:00: mouth in [place] ([facility]) 00 the Medical 20 mg morning Branch tablet and 1 tablet at noon and 1 tablet in the evening. busPIRone 2021-03 Yes [id number] 10mg Take 1 U nivers 10 mg 0-25 tablet by ity of tablet 00:00: mouth in [place] 00 the Medical morning Branch and 1 tablet in the evening. dextroamphe 2021-03 Yes [id number] 20mg Take 1 [facility] tamine-amph 0-25 tablet by ity of etamine 00:00: mouth in [place] ([facility]) 00 the Medical 20 mg morning Branch tablet and 1 tablet at noon and 1 tablet in the evening. busPIRone 2021-03 Yes [id number] 10mg Take 1 U nivers 10 mg 0-25 tablet by ity of tablet 00:00: mouth in [place] 00 the Medical morning Branch and 1 tablet in the evening. dextroamphe 2021-03 Yes [id number] 20mg Take 1 [facility] tamine-amph 0-25 tablet by ity of etamine 00:00: mouth in [place] ([facility]) 00 the Medical 20 mg morning Branch tablet and 1 tablet at noon and 1 tablet in the evening. busPIRone 2021-03 Yes [id number] 10mg Take 1 U nivers 10 mg 0-25 tablet by ity of tablet 00:00: mouth in [place] 00 the Medical morning Branch and 1 tablet in the evening. dextroamphe 2021-03 Yes [id number] 20mg Take 1 [facility] tamine-amph 0-25 tablet by ity of etamine 00:00: [facility] [place] [facility] Medical 20 mg morning Branch tablet and 1 tablet at noon and 1 tablet in the evening. busPIRone 2021-03 Yes [id number] 10mg Take 1 U nivers 10 mg 0-25 tablet by ity of tablet 00:00: mouth in [place] 00 the Medical morning Branch and 1 tablet in the evening. dextroamphe 2021-03 Yes [id number] 20mg Take 1 [facility] tamine-amph 0-25 tablet by ity of etamine 00:00: mouth in [place] ([facility]) 00 the Medical 20 mg morning Branch tablet and 1 tablet at noon and 1 tablet in the evening. busPIRone 2021-03 Yes [id number] 10mg Take 1 U nivers 10 mg 0-25 tablet by ity of tablet 00:00: mouth in [place] 00 the Medical morning Branch and 1 tablet in the evening. dextroamphe 2021-03 Yes [id number] 20mg Take 1 [facility] tamine-amph 0-25 tablet by ity of etamine 00:00: mouth in [place] ([facility]) 00 the Medical 20 mg morning Branch tablet and 1 tablet at noon and 1 tablet in the evening. dextroamphe 2021-03 Yes [id number] 20mg Take 1 [facility] tamine-amph 0-25 tablet by ity of etamine 00:00: mouth in [place] ([facility]) 00 the Medical 20 mg morning Branch tablet and 1 tablet at noon and 1 tablet in the evening. dextroamphe 2021- Yes [id number] 20mg Take 1 [facility] tamine-amph 0-25 tablet by ity of etamine 00:00: mouth in [place] ([facility]) 00 the Medical 20 mg morning Branch tablet and 1 tablet at noon and 1 tablet in the evening. dextroamphe 2021-03- No [id number] 20mg Take 1 [facility] tamine-amph 0-25 11-28 tablet by it y of etamine 00:00: 00:00 mouth in [place] ([facility]) 00 :00 the Medical 20 mg morning Branch tablet and 1 tablet at noon and 1 tablet in the evening. busPIRone 2021-03- No [id number] 10mg Take 1 [facility] 10 mg 0-25 11- tablet by ity of tablet 00:00: 00:00 mouth in [place] 00 :00 the Medical morning Branch and 1 tablet in the evening. busPIRone 2021-03- No [id number] 10mg Take 1 [facility] 10 mg 0-25 - tablet by ity of tablet 00:00: 00:00 mouth in [place] 00 :00 the Medical morning Branch and 1 tablet in the evening. dextroamphe 2021-0 Yes [id number] 20mg Take 1 [facility] tamine-amph 9-26 tablet by ity of etamine 00:00: mouth in [place] ([facility]) 00 the Medical 20 mg morning Branch tablet and 1 tablet at noon and 1 tablet in the evening. dextroamphe 2021-0 Yes [id number] 20mg Take 1 [facility] tamine-amph 9-26 tablet by ity of etamine 00:00: mouth in [place] ([facility]) 00 the Medical 20 mg morning Branch tablet and 1 tablet at noon and 1 tablet in the evening. dextroamphe 2021-0 Yes [id number] 20mg Take 1 [facility] tamine-amph 9-26 tablet by ity of etamine 00:00: mouth in [place] ([facility]) 00 the Medical 20 mg morning Branch tablet and 1 tablet at noon and 1 tablet in the evening. dextroamphe 2021-0 Yes [id number] 20mg Take 1 [facility] tamine-amph 9-26 tablet by ity of etamine 00:00: mouth in [place] ([facility]) 00 the Medical 20 mg morning Branch tablet and 1 tablet at noon and 1 tablet in the evening. dextroamphe 2022-0 Yes [id number] 20mg Take 1 [facility] tamine-amph 9-26 tablet by ity of etamine 00:00: mouth in [place] ([facility]) 00 the Medical 20 mg morning Branch tablet and 1 tablet at noon and 1 tablet in the evening. dextroamphe 2022-0 Yes [id number] 20mg Take 1 [facility] tamine-amph 9-26 tablet by ity of etamine 00:00: mouth in [place] ([facility]) 00 the Medical 20 mg morning Branch tablet and 1 tablet at noon and 1 tablet in the evening. dextroamphe 2022-0 Yes [id number] 20mg Take 1 [facility] tamine-amph 9-26 tablet by ity of etamine 00:00: mouth in [place] ([facility]) 00 the Medical 20 mg morning Branch tablet and 1 tablet at noon and 1 tablet in the evening. dextroamphe 2022-0 2022- No [id number] 20mg Take 1 [facility] tamine-amph 9-26 10-25 tablet by it y of etamine 00:00: 00:00 mouth in [place] ([facility]) 00 :00 the Medical 20 mg morning Branch tablet and 1 tablet at noon and 1 tablet in the evening. dextroamphe 2022-0 2- No [id number] 20mg Take 1 [facility] tamine-amph 9-26 10-25 tablet by it y of etamine 00:00: 00:00 mouth in [place] ([facility]) 00 :00 the Medical 20 mg morning Branch tablet and 1 tablet at noon and 1 tablet in the evening. PERMETHRIN 2022-0 Yes [id number] APPLY TO [facility] 5 % cream 9-08 SKIN AND ity of 00:00: LEAVE ON [place] 00 FOR 8 - 10 Medical HOURS THEN Branch REPEAT IN A WEEK PERMETHRIN 2022-0 Yes [id number] APPLY TO [facility] 5 % cream 9-08 SKIN AND ity of 00:00: LEAVE ON [place] 00 FOR 8 - 10 Medical HOURS THEN Branch REPEAT IN A WEEK PERMETHRIN 2022-0 Yes [id number] APPLY TO [facility] 5 % cream 9-08 SKIN AND ity of 00:00: LEAVE ON [place] 00 FOR 8 - 10 Medical HOURS THEN Branch REPEAT IN A WEEK PERMETHRIN 0 Yes [id number] APPLY TO [facility] 5 % cream 9-08 SKIN AND ity of 00:00: LEAVE ON [place] 00 FOR 8 - 10 Medical HOURS THEN Branch REPEAT IN A WEEK PERMETHRIN 0 Yes [id number] APPLY TO [facility] 5 % cream 9-08 SKIN AND ity of 00:00: LEAVE ON 00 FOR 8 - 10 Medical HOURS THEN Branch REPEAT IN A WEEK PERMETHRIN 0 Yes [id number] APPLY TO [facility] 5 % cream 9-08 SKIN AND ity of 00:00: LEAVE ON 00 FOR 8 - 10 Medical HOURS THEN Branch REPEAT IN A WEEK PERMETHRIN 0 Yes [id number] APPLY TO [facility] 5 % cream 9-08 SKIN AND ity of 00:00: LEAVE ON 00 FOR 8 - 10 Medical HOURS THEN Branch REPEAT IN A WEEK PERMETHRIN 0 Yes [id number] APPLY TO [facility] 5 % cream 9-08 SKIN AND ity of 00:00: LEAVE ON [place] 00 FOR 8 - 10 Medical HOURS THEN Branch REPEAT IN A WEEK PERMETHRIN 0 Yes [id number] APPLY TO [facility] 5 % cream 9-08 SKIN AND ity of 00:00: LEAVE ON 00 FOR 8 - 10 Medical HOURS THEN Branch REPEAT IN A WEEK PERMETHRIN 0 Yes [id number] APPLY TO [facility] 5 % cream 9-08 SKIN AND ity of 00:00: LEAVE ON [place] 00 FOR 8 - 10 Medical HOURS THEN Branch REPEAT IN A WEEK PERMETHRIN 0 Yes [id number] APPLY TO [facility] 5 % cream 9-08 SKIN AND ity of 00:00: LEAVE ON [place] 00 FOR 8 - 10 Medical HOURS THEN Branch REPEAT IN A WEEK PERMETHRIN 0 Yes [id number] APPLY TO [facility] 5 % cream 9-08 SKIN AND ity of 00:00: LEAVE ON [place] 00 FOR 8 - 10 Medical HOURS THEN Branch REPEAT IN A WEEK PERMETHRIN 0 Yes [id number] APPLY TO [facility] 5 % cream 9-08 SKIN AND ity of 00:00: LEAVE ON 00 FOR 8 - 10 Medical HOURS THEN Branch REPEAT IN A WEEK PERMETHRIN 0 Yes [id number] APPLY TO [facility] 5 % cream 9-08 SKIN AND ity of 00:00: LEAVE ON [place] 00 FOR 8 - 10 Medical HOURS THEN Branch REPEAT IN A WEEK PERMETHRIN 0 Yes [id number] APPLY TO [facility] 5 % cream 9-08 SKIN AND ity of 00:00: LEAVE ON [place] 00 FOR 8 - 10 Medical HOURS THEN Branch REPEAT IN A WEEK PERMETHRIN 0 Yes [id number] APPLY TO [facility] 5 % cream 9-08 SKIN AND ity of 00:00: LEAVE ON [place] 00 FOR 8 - 10 Medical HOURS THEN Branch REPEAT IN A WEEK PERMETHRIN 0 2021- No [id number] APPLY TO [facility] 5 % cream 9-08 11-01 SKIN AND ity o f 00:00: 00:00 LEAVE ON [place] 00 :00 FOR 8 - 10 Medical HOURS THEN Branch REPEAT IN A WEEK PERMETHRIN 0 2021- No [id number] APPLY TO [facility] 5 % cream 9-08 11-01 SKIN AND ity o f 00:00: 00:00 LEAVE ON [place] 00 :00 FOR 8 - 10 Medical HOURS THEN Branch REPEAT IN A WEEK triamcinolo 0 Yes [id number] Apply to [facility] ne 8-31 area(s) 2 ity of acetonide 00:00: (two) [place] 0.1 % cream 00 times Medical daily. To Branch bumps mupirocin 2 0 Yes [id number] Apply to [facility] % ointment 8-31 area(s) 3 ity of 00:00: (three) [place] 00 times Medical daily. To Branch open wounds triamcinolo 2021-0 Yes [id number] Apply to [facility] ne 8-31 area(s) 2 ity of acetonide 00:00: (two) [place] 0.1 % cream 00 times Medical daily. To Branch bumps mupirocin 2 2021-0 Yes [id number] Apply to [facility] % ointment 8-31 area(s) 3 ity of 00:00: (three) [place] 00 times Medical daily. To Branch open wounds triamcinolo 0 Yes [id number] Apply to [facility] ne 8-31 area(s) 2 ity of acetonide 00:00: (two) [place] 0.1 % cream 00 times Medical daily. To Branch bumps mupirocin 2 2022-0 Yes [id number] Apply to [facility] % ointment 8-31 area(s) 3 ity of 00:00: (three) [place] 00 times Medical daily. To Branch open wounds triamcinolo 2-0 Yes [id number] Apply to [facility] ne 8-31 area(s) 2 ity of acetonide 00:00: (two) [place] 0.1 % cream 00 times Medical daily. To Branch bumps mupirocin 2 2021-0 Yes [id number] Apply to [facility] % ointment 8-31 area(s) 3 ity of 00:00: (three) [place] 00 times Medical daily. To Branch open wounds triamcinolo 2021-0 Yes [id number] Apply to [facility] ne 8-31 area(s) 2 ity of acetonide 00:00: (two) [place] 0.1 % cream 00 times Medical daily. To Branch bumps mupirocin 2 2021-0 Yes [id number] Apply to [facility] % ointment 8-31 area(s) 3 ity of 00:00: (three) [place] 00 times Medical daily. To Branch open wounds triamcinolo 2021-0 Yes [id number] Apply to [facility] ne 8-31 area(s) 2 ity of acetonide 00:00: (two) [place] 0.1 % cream 00 times Medical daily. To Branch bumps mupirocin 2 2021-0 Yes [id number] Apply to [facility] % ointment 8-31 area(s) 3 ity of 00:00: (three) [place] 00 times Medical daily. To Branch open wounds triamcinolo 2-0 Yes [id number] Apply to [facility] ne 8-31 area(s) 2 ity of acetonide 00:00: (two) [place] 0.1 % cream 00 times Medical daily. To Branch bumps mupirocin 2 2-0 Yes [id number] Apply to [facility] % ointment 8-31 area(s) 3 ity of 00:00: (three) [place] 00 times Medical daily. To Branch open wounds triamcinolo 2-0 Yes [id number] [facility] area(s[facility] 2 [facility] of acetonide 00:00: (two) [place] 0.1 % cream 00 times Medical daily. To Branch bumps mupirocin 2 2-0 Yes [id number] Apply to [facility] ointment 8-31 area(s) 3 ity of 00:00: (three) [place] 00 times Medical daily. To Branch open wounds triamcinolo 2-0 Yes [id number] Apply to [facility] 8-31 area(s) 2 ity of acetonide 00:00: (two) [place] 0.1 % cream 00 times Medical daily. To Branch bumps mupirocin 2 2021-0 Yes [id number] Apply to [facility] % ointment 8-31 area(s) 3 ity of 00:00: (three) [place] 00 times Medical daily. To Branch open wounds triamcinolo 2-0 Yes [id number] Apply to [facility] 8-31 area(s) 2 ity of acetonide 00:00: (two) [place] 0.1 % cream 00 times Medical daily. To Branch bumps mupirocin 2 2021-0 Yes [id number] Apply to [facility] % ointment 8-31 area(s) 3 ity of 00:00: (three) [place] 00 times Medical daily. To Branch open wounds triamcinolo 2021-0 Yes [id number] Apply to [facility] 8-31 area(s) 2 ity of acetonide 00:00: (two) [place] 0.1 % cream 00 times Medical daily. To Branch bumps mupirocin 2 2021-0 Yes [id number] Apply to [facility] % ointment 8-31 area(s) 3 ity of 00:00: (three) [place] 00 times Medical daily. To Branch open wounds triamcinolo 2-0 Yes [id number] Apply to [facility] 8-31 area(s) 2 ity of acetonide 00:00: (two) [place] 0.1 % cream 00 times Medical daily. To Branch bumps mupirocin 2 2-0 Yes [id number] Apply to [facility] % ointment 8-31 area(s) 3 ity of 00:00: (three) [place] 00 times Medical daily. To Branch open wounds triamcinolo 2-0 Yes [id number] Apply to [facility] 8-31 area(s) 2 ity of acetonide 00:00: (two) [place] 0.1 % cream 00 times Medical daily. To Branch bumps mupirocin 2 2-0 Yes [id number] Apply to [facility] % ointment 8-31 area(s) 3 ity of 00:00: (three) [place] 00 times Medical daily. To Branch open wounds triamcinolo 2-0 Yes [id number] Apply to [facility] 8-31 area(s) 2 ity of acetonide 00:00: (two) [place] 0.1 % cream 00 times Medical daily. To Branch bumps mupirocin 2 2021-0 Yes [id number] Apply to [facility] % ointment 8-31 area(s) 3 ity of 00:00: (three) [place] 00 times Medical daily. To Branch open wounds triamcinolo 2-0 Yes [id number] Apply to [facility] 8-31 area(s) 2 ity of acetonide 00:00: (two) [place] 0.1 % cream 00 times Medical daily. To Branch bumps mupirocin 2 2021-0 Yes [id number] Apply to [facility] % ointment 8-31 area(s) 3 ity of 00:00: (three) [place] 00 times Medical daily. To Branch open wounds triamcinolo 2-0 Yes [id number] Apply to [facility] 8-31 area(s) 2 ity of acetonide 00:00: (two) [place] 0.1 % cream 00 times Medical daily. To Branch bumps mupirocin 2 2021-0 Yes [id number] Apply to [facility] % ointment 8-31 area(s) 3 ity of 00:00: (three) [place] 00 times Medical daily. To Branch open wounds triamcinolo 2-0 Yes [id number] Apply to [facility] 8-31 area(s) 2 ity of acetonide 00:00: (two) [place] 0.1 % cream 00 times Medical daily. To Branch bumps mupirocin 2 2-0 Yes [id number] Apply to [facility] % ointment 8-31 area(s) 3 ity of 00:00: (three) [place] 00 times Medical daily. To Branch open wounds triamcinolo 2-0 Yes [id number] Apply to [facility] 8-31 area(s) 2 ity of acetonide 00:00: (two) [place] 0.1 % cream 00 times Medical daily. To Branch bumps mupirocin 2 2-0 Yes [id number] Apply to [facility] % ointment 8-31 area(s) 3 ity of 00:00: (three) [place] 00 times Medical daily. To Branch open wounds triamcinolo 2-0 Yes [id number] Apply to [facility] 8-31 area(s) 2 ity of acetonide 00:00: (two) [place] 0.1 % cream 00 times Medical daily. To Branch bumps mupirocin 2 2021-0 Yes [id number] Apply to [facility] % ointment 8-31 area(s) 3 ity of 00:00: (three) [place] 00 times Medical daily. To Branch open wounds triamcinolo 2-0 Yes [id number] Apply to [facility] 8-31 area(s) 2 ity of acetonide 00:00: (two) [place] 0.1 % cream 00 times Medical daily. To Branch bumps mupirocin 2 2021-0 Yes [id number] Apply to [facility] % ointment 8-31 area(s) 3 ity of 00:00: (three) [place] 00 times Medical daily. To Branch open wounds triamcinolo 2-0 Yes [id number] Apply to [facility] 8-31 area(s) 2 ity of acetonide 00:00: (two) [place] 0.1 % cream 00 times Medical daily. To Branch bumps mupirocin 2 2-0 Yes [id number] Apply to [facility] % ointment 8-31 area(s) 3 ity of 00:00: (three) [place] 00 times Medical daily. To Branch open wounds triamcinolo 2-0 Yes [id number] Apply to [facility] 8-31 area(s) 2 ity of acetonide 00:00: (two) [place] 0.1 % cream 00 times Medical daily. To Branch bumps mupirocin 2 2-0 Yes [id number] Apply to [facility] % ointment 8-31 area(s) 3 ity of 00:00: (three) [place] 00 times Medical daily. To Branch open wounds triamcinolo 2-0 Yes [id number] Apply to [facility] 8-31 area(s) 2 ity of acetonide 00:00: (two) [place] 0.1 % cream 00 times Medical daily. To Branch bumps mupirocin 2 2021-0 Yes [id number] Apply to [facility] % ointment 8-31 area(s) 3 ity of 00:00: (three) [place] 00 times Medical daily. To Branch open wounds triamcinolo 2022-0 Yes [id number] Apply to [facility] 8-31 area(s) 2 ity of acetonide 00:00: (two) [place] 0.1 % cream 00 times Medical daily. To Branch bumps mupirocin 2 2021-0 Yes [id number] Apply to [facility] % ointment 8-31 area(s) 3 ity of 00:00: (three) [place] 00 times Medical daily. To Branch open wounds dextroamphe 2021-0 Yes [id number] 20mg Take 1 [facility] t[facility] 8-31 tablet by ity of etamine 00:00: mouth in [place] (ADDERALL) 00 the Medical 20 mg morning Branch tablet and 1 tablet at noon and 1 tablet in the evening. triamcinolo 2021-0 Yes [id number] Apply to [facility] 8-31 area(s) 2 ity of acetonide 00:00: (two) [place] 0.1 % cream 00 times Medical daily. To Branch bumps mupirocin 2 2021-0 Yes [id number] Apply to [facility] % ointment 8-31 area(s) 3 ity of 00:00: (three) [place] 00 times Medical daily. To Branch open wounds dextroamphe 2-0 Yes [id number] 20mg Take 1 [facility] tamine-[facility]ph 8-31 tablet by ity of etamine 00:00: mouth in [place] (ADDERALL) 00 the Medical 20 mg morning Branch tablet and 1 tablet at noon and 1 tablet in the evening. triamcinolo 2-0 Yes [id number] Apply to [facility] 8-31 area(s) 2 ity of acetonide 00:00: (two) [place] 0.1 % cream 00 times Medical daily. To Branch bumps mupirocin 2 2-0 Yes [id number] Apply to [facility] % ointment 8-31 area(s) 3 ity of 00:00: (three) [place] 00 times Medical daily. To Branch open wounds dextroamphe 2021-0 Yes [id number] 20mg Take 1 [facility] tamine-[facility]ph 8-31 tablet by ity of etamine 00:00: mouth in [place] (ADDERALL) 00 the Medical 20 mg morning Branch tablet and 1 tablet at noon and 1 tablet in the evening. triamcinolo 2022-0 Yes [id number] Apply to [facility] 8-31 area(s) 2 ity of acetonide 00:00: (two) [place] 0.1 % cream 00 times Medical daily. To Branch bumps mupirocin 2 2021-0 Yes [id number] Apply to [facility] % ointment 8-31 area(s) 3 ity of 00:00: (three) [place] 00 times Medical daily. To Branch open wounds triamcinolo 2-0 Yes [id number] Apply to [facility] ne 8-31 area(s) 2 ity of acetonide 00:00: (two) [place] 0.1 % cream 00 times Medical daily. To Branch bumps mupirocin 2 2021-0 Yes [id number] Apply to [facility] % ointment 8-31 area(s) 3 ity of 00:00: (three) [place] 00 times Medical daily. To Branch open wounds triamcinolo 2-0 Yes [id number] Apply to [facility] 8-31 area(s) 2 ity of acetonide 00:00: (two) [place] 0.1 % cream 00 times Medical daily. To Branch bumps mupirocin 2 2021-0 Yes [id number] Apply to [facility] % ointment 8-31 area(s) 3 ity of 00:00: (three) [place] 00 times Medical daily. To Branch open wounds triamcinolo 2-0 Yes [id number] Apply to [facility] ne 8-31 area(s) 2 ity of acetonide 00:00: (two) [place] 0.1 % cream 00 times Medical daily. To Branch bumps mupirocin 2 2-0 Yes [id number] Apply to [facility] % ointment 8-31 area(s) 3 ity of 00:00: (three) [place] 00 times Medical daily. To Branch open wounds triamcinolo 2-0 Yes [id number] Apply to [facility] ne 8-31 area(s) 2 ity of acetonide 00:00: (two) [place] 0.1 % cream 00 times Medical daily. To Branch bumps mupirocin 2 2-0 Yes [id number] Apply to [facility] % ointment 8-31 area(s) 3 ity of 00:00: (three) [place] 00 times Medical daily. To Branch open wounds triamcinolo 2-0 Yes [id number] Apply to [facility] ne 8-31 area(s) 2 ity of acetonide 00:00: (two) [place] 0.1 % cream 00 times Medical daily. To Branch bumps mupirocin 2 2021-0 Yes [id number] Apply to [facility] % ointment 8-31 area(s) 3 ity of 00:00: (three) [place] 00 times Medical daily. To Branch open wounds triamcinolo 2-0 Yes [id number] Apply to [facility] ne 8-31 area(s) 2 ity of acetonide 00:00: (two) [place] 0.1 % cream 00 times Medical daily. To Branch bumps mupirocin 2 2021-0 Yes [id number] Apply to [facility] % ointment 8-31 area(s) 3 ity of 00:00: (three) [place] 00 times Medical daily. To Branch open wounds triamcinolo 2-0 Yes [id number] Apply to [facility] ne 8-31 area(s) 2 ity of acetonide 00:00: (two) [place] 0.1 % cream 00 times Medical daily. To Branch bumps mupirocin 2 2-0 Yes [id number] Apply to [facility] % ointment 8-31 area(s) 3 ity of 00:00: (three) [place] 00 times Medical daily. To Branch open wounds triamcinolo 2-0 Yes [id number] Apply to [facility] ne 8-31 area(s) 2 ity of acetonide 00:00: (two) [place] 0.1 % cream 00 times Medical daily. To Branch bumps mupirocin 2 2-0 Yes [id number] Apply to [facility] % ointment 8-31 area(s) 3 ity of 00:00: (three) [place] 00 times Medical daily. To Branch open wounds triamcinolo 2-0 Yes [id number] Apply to [facility] ne 8-31 area(s) 2 ity of acetonide 00:00: (two) [place] 0.1 % cream 00 times Medical daily. To Branch bumps mupirocin 2 2021-0 Yes [id number] Apply to [facility] % ointment 8-31 area(s) 3 ity of 00:00: (three) [place] 00 times Medical daily. To Branch open wounds triamcinolo 2-0 Yes [id number] Apply to [facility] ne 8-31 area(s) 2 ity of acetonide 00:00: (two) [place] 0.1 % cream 00 times Medical daily. To Branch bumps mupirocin 2 2021-0 Yes [id number] Apply to [facility] % ointment 8-31 area(s) 3 ity of 00:00: (three) [place] 00 times Medical daily. To Branch open wounds triamcinolo 2021-0 Yes [id number] Apply to [facility] ne 8-31 area(s) 2 ity of acetonide 00:00: (two) [place] 0.1 % cream 00 times Medical daily. To Branch bumps mupirocin 2 2021-0 Yes [id number] Apply to [facility] % ointment 8-31 area(s) 3 ity of 00:00: (three) [place] 00 times Medical daily. To Branch open wounds triamcinolo 2-0 Yes [id number] Apply to [facility] ne 8-31 area(s) 2 ity of acetonide 00:00: (two) [place] 0.1 % cream 00 times Medical daily. To Branch bumps mupirocin 2 2021-0 Yes [id number] Apply to [facility] % ointment 8-31 area(s) 3 ity of 00:00: (three) [place] 00 times Medical daily. To Branch open wounds triamcinolo 2-0 Yes [id number] Apply to [facility] ne 8-31 area(s) 2 ity of acetonide 00:00: (two) [place] 0.1 % cream 00 times Medical daily. To Branch bumps mupirocin 2 2-0 Yes [id number] Apply to [facility] % ointment 8-31 area(s) 3 ity of 00:00: (three) [place] 00 times Medical daily. To Branch open wounds triamcinolo 2-0 Yes [id number] Apply to [facility] ne 8-31 area(s) 2 ity of acetonide 00:00: (two) [place] 0.1 % cream 00 times Medical daily. To Branch bumps mupirocin 2 2-0 Yes [id number] Apply to [facility] % ointment 8-31 area(s) 3 ity of 00:00: (three) [place] 00 times Medical daily. To Branch open wounds triamcinolo 2-0 Yes [id number] Apply to [facility] ne 8-31 area(s) 2 ity of acetonide 00:00: (two) [place] 0.1 % cream 00 times Medical daily. To Branch bumps mupirocin 2 2021-0 Yes [id number] Apply to [facility] % ointment 8-31 area(s) 3 ity of 00:00: (three) [place] 00 times Medical daily. To Branch open wounds triamcinolo 2-0 Yes [id number] Apply to [facility] ne 8-31 area(s) 2 ity of acetonide 00:00: (two) [place] 0.1 % cream 00 times Medical daily. To Branch bumps mupirocin 2 2021-0 Yes [id number] Apply to [facility] % ointment 8-31 area(s) 3 ity of 00:00: (three) [place] 00 times Medical daily. To Branch open wounds triamcinolo 2-0 Yes [id number] Apply to [facility] ne 8-31 area(s) 2 ity of acetonide 00:00: (two) [place] 0.1 % cream 00 times Medical daily. To Branch bumps mupirocin 2 2021-0 Yes [id number] Apply to [facility] % ointment 8-31 area(s) 3 ity of 00:00: (three) [place] 00 times Medical daily. To Branch open wounds triamcinolo 2-0 Yes [id number] Apply to [facility] ne 8-31 area(s) 2 ity of acetonide 00:00: (two) [place] 0.1 % cream 00 times Medical daily. To Branch bumps mupirocin 2 2-0 Yes [id number] Apply to [facility] % ointment 8-31 area(s) 3 ity of 00:00: (three) [place] 00 times Medical daily. To Branch open wounds triamcinolo 2-0 Yes [id number] Apply to [facility] ne 8-31 area(s) 2 ity of acetonide 00:00: (two) [place] 0.1 % cream 00 times Medical daily. To Branch bumps mupirocin 2 2-0 Yes [id number] Apply to [facility] % ointment 8-31 area(s) 3 ity of 00:00: (three) [place] 00 times Medical daily. To Branch open wounds triamcinolo 2-0 Yes [id number] Apply to [facility] ne 8-31 area(s) 2 ity of acetonide 00:00: (two) [place] 0.1 % cream 00 times Medical daily. To Branch bumps mupirocin 2 2021-0 Yes [id number] Apply to [facility] % ointment 8-31 area(s) 3 ity of 00:00: (three) [place] 00 times Medical daily. To Branch open wounds triamcinolo 2-0 Yes [id number] Apply to [facility] ne 8-31 area(s) 2 ity of acetonide 00:00: (two) [place] 0.1 % cream 00 times Medical daily. To Branch bumps mupirocin 2 2021-0 Yes [id number] Apply to [facility] % ointment 8-31 area(s) 3 ity of 00:00: (three) [place] 00 times Medical daily. To Branch open wounds triamcinolo 2-0 Yes [id number] Apply to [facility] ne 8-31 area(s) 2 ity of acetonide 00:00: (two) [place] 0.1 % cream 00 times Medical daily. To Branch bumps mupirocin 2 2-0 Yes [id number] Apply to [facility] % ointment 8-31 area(s) 3 ity of 00:00: (three) [place] 00 times Medical daily. To Branch open wounds triamcinolo 2-0 Yes [id number] Apply to [facility] ne 8-31 area(s) 2 ity of acetonide 00:00: (two) [place] 0.1 % cream 00 times Medical daily. To Branch bumps mupirocin 2 2-0 Yes [id number] Apply to [facility] % ointment 8-31 area(s) 3 ity of 00:00: (three) [place] 00 times Medical daily. To Branch open wounds triamcinolo 2-0 Yes [id number] Apply to [facility] ne 8-31 area(s) 2 ity of acetonide 00:00: (two) [place] 0.1 % cream 00 times Medical daily. To Branch bumps mupirocin 2 2021-0 Yes [id number] Apply to [facility] % ointment 8-31 area(s) 3 ity of 00:00: (three) [place] 00 times Medical daily. To Branch open wounds triamcinolo 2-0 Yes [id number] Apply to [facility] ne 8-31 area(s) 2 ity of acetonide 00:00: (two) [place] 0.1 % cream 00 times Medical daily. To Branch bumps mupirocin 2 2021-0 Yes [id number] Apply to [facility] % ointment 8-31 area(s) 3 ity of 00:00: (three) [place] 00 times Medical daily. To Branch open wounds triamcinolo 2021-0 Yes [id number] Apply to [facility] ne 8-31 area(s) 2 ity of acetonide 00:00: (two) [place] 0.1 % cream 00 times Medical daily. To Branch bumps mupirocin 2 2021-0 Yes [id number] Apply to [facility] % ointment 8-31 area(s) 3 ity of 00:00: (three) [place] 00 times Medical daily. To Branch open wounds triamcinolo 2-0 Yes [id number] Apply to [facility] ne 8-31 area(s) 2 ity of acetonide 00:00: (two) [place] 0.1 % cream 00 times Medical daily. To Branch bumps mupirocin 2 2-0 Yes [id number] Apply to [facility] % ointment 8-31 area(s) 3 ity of 00:00: (three) [place] 00 times Medical daily. To Branch open wounds triamcinolo 2-0 Yes [id number] Apply to [facility] ne 8-31 area(s) 2 ity of acetonide 00:00: (two) [place] 0.1 % cream 00 times Medical daily. To Branch bumps mupirocin 2 2-0 Yes [id number] Apply to [facility] % ointment 8-31 area(s) 3 ity of 00:00: (three) [place] 00 times Medical daily. To Branch open wounds triamcinolo 2-0 Yes [id number] Apply to [facility] ne 8-31 area(s) 2 ity of acetonide 00:00: (two) [place] 0.1 % cream 00 times Medical daily. To Branch bumps mupirocin 2 2021-0 Yes [id number] Apply to [facility] % ointment 8-31 area(s) 3 ity of 00:00: (three) [place] 00 times Medical daily. To Branch open wounds triamcinolo 2-0 Yes [id number] Apply to [facility] ne 8-31 area(s) 2 ity of acetonide 00:00: (two) [place] 0.1 % cream 00 times Medical daily. To Branch bumps mupirocin 2 2021-0 Yes [id number] Apply to [facility] % ointment 8-31 area(s) 3 ity of 00:00: (three) [place] 00 times Medical daily. To Branch open wounds triamcinolo 2021-0 Yes [id number] Apply to [facility] ne 8-31 area(s) 2 ity of acetonide 00:00: (two) [place] 0.1 % cream 00 times Medical daily. To Branch bumps mupirocin 2 2021-0 Yes [id number] Apply to [facility] % ointment 8-31 area(s) 3 ity of 00:00: (three) [place] 00 times Medical daily. To Branch open wounds triamcinolo 2-0 Yes [id number] Apply to [facility] ne 8-31 area(s) 2 ity of acetonide 00:00: (two) [place] 0.1 % cream 00 times Medical daily. To Branch bumps mupirocin 2 2-0 Yes [id number] Apply to [facility] % ointment 8-31 area(s) 3 ity of 00:00: (three) [place] 00 times Medical daily. To Branch open wounds triamcinolo 2-0 Yes [id number] Apply to [facility] ne 8-31 area(s) 2 ity of acetonide 00:00: (two) [place] 0.1 % cream 00 times Medical daily. To Branch bumps mupirocin 2 2-0 Yes [id number] Apply to [facility] % ointment 8-31 area(s) 3 ity of 00:00: (three) [place] 00 times Medical daily. To Branch open wounds triamcinolo 2-0 Yes [id number] Apply to [facility] ne 8-31 area(s) 2 ity of acetonide 00:00: (two) [place] 0.1 % cream 00 times Medical daily. To Branch bumps mupirocin 2 2021-0 Yes [id number] Apply to [facility] % ointment 8-31 area(s) 3 ity of 00:00: (three) [place] 00 times Medical daily. To Branch open wounds triamcinolo 2-0 Yes [id number] Apply to [facility] ne 8-31 area(s) 2 ity of acetonide 00:00: (two) [place] 0.1 % cream 00 times Medical daily. To Branch bumps mupirocin 2 2021-0 Yes [id number] Apply to [facility] % ointment 8-31 area(s) 3 ity of 00:00: (three) [place] 00 times Medical daily. To Branch open wounds triamcinolo 2021-0 Yes [id number] Apply to [facility] ne 8-31 area(s) 2 ity of acetonide 00:00: (two) [place] 0.1 % cream 00 times Medical daily. To Branch bumps mupirocin 2 2021-0 Yes [id number] Apply to [facility] % ointment 8-31 area(s) 3 ity of 00:00: (three) [place] 00 times Medical daily. To Branch open wounds triamcinolo 2-0 Yes [id number] Apply to [facility] ne 8-31 area(s) 2 ity of acetonide 00:00: (two) [place] 0.1 % cream 00 times Medical daily. To Branch bumps mupirocin 2 2-0 Yes [id number] Apply to [facility] % ointment 8-31 area(s) 3 ity of 00:00: (three) [place] 00 times Medical daily. To Branch open wounds triamcinolo 2-0 Yes [id number] Apply to [facility] ne 8-31 area(s) 2 ity of acetonide 00:00: (two) [place] 0.1 % cream 00 times Medical daily. To Branch bumps mupirocin 2 2-0 Yes [id number] Apply to [facility] % ointment 8-31 area(s) 3 ity of 00:00: (three) [place] 00 times Medical daily. To Branch open wounds triamcinolo 2-0 Yes [id number] Apply to [facility] ne 8-31 area(s) 2 ity of acetonide 00:00: (two) [place] 0.1 % cream 00 times Medical daily. To Branch bumps mupirocin 2 2021-0 Yes [id number] Apply to [facility] % ointment 8-31 area(s) 3 ity of 00:00: (three) [place] 00 times Medical daily. To Branch open wounds triamcinolo 2-0 Yes [id number] Apply to [facility] ne 8-31 area(s) 2 ity of acetonide 00:00: (two) [place] 0.1 % cream 00 times Medical daily. To Branch bumps mupirocin 2 2021-0 Yes [id number] Apply to [facility] % ointment 8-31 area(s) 3 ity of 00:00: (three) [place] 00 times Medical daily. To Branch open wounds triamcinolo 2-0 Yes [id number] Apply to [facility] ne 8-31 area(s) 2 ity of acetonide 00:00: (two) [place] 0.1 % cream 00 times Medical daily. To Branch bumps mupirocin 2 2021-0 Yes [id number] Apply to [facility] % ointment 8-31 area(s) 3 ity of 00:00: (three) [place] 00 times Medical daily. To Branch open wounds triamcinolo 2-0 Yes [id number] Apply to [facility] ne 8-31 area(s) 2 ity of acetonide 00:00: (two) [place] 0.1 % cream 00 times Medical daily. To Branch bumps mupirocin 2 2-0 Yes [id number] Apply to [facility] % ointment 8-31 area(s) 3 ity of 00:00: (three) [place] 00 times Medical daily. To Branch open wounds triamcinolo 2-0 Yes [id number] Apply to [facility] ne 8-31 area(s) 2 ity of acetonide 00:00: (two) [place] 0.1 % cream 00 times Medical daily. To Branch bumps mupirocin 2 2-0 Yes [id number] Apply to [facility] % ointment 8-31 area(s) 3 ity of 00:00: (three) [place] 00 times Medical daily. To Branch open wounds triamcinolo 2-0 Yes [id number] Apply to [facility] ne 8-31 area(s) 2 ity of acetonide 00:00: (two) [place] 0.1 % cream 00 times Medical daily. To Branch bumps mupirocin 2 2021-0 Yes [id number] Apply to [facility] % ointment 8-31 area(s) 3 ity of 00:00: (three) [place] 00 times Medical daily. To Branch open wounds triamcinolo 2-0 Yes [id number] Apply to [facility] ne 8-31 area(s) 2 ity of acetonide 00:00: (two) [place] 0.1 % cream 00 times Medical daily. To Branch bumps mupirocin 2 2021-0 Yes [id number] Apply to [facility] % ointment 8-31 area(s) 3 ity of 00:00: (three) [place] 00 times Medical daily. To Branch open wounds triamcinolo 2-0 Yes [id number] Apply to [facility] ne 8-31 area(s) 2 ity of acetonide 00:00: (two) [place] 0.1 % cream 00 times Medical daily. To Branch bumps mupirocin 2 2-0 Yes [id number] Apply to [facility] % ointment 8-31 area(s) 3 ity of 00:00: (three) [place] 00 times Medical daily. To Branch open wounds triamcinolo 2-0 Yes [id number] Apply to [facility] ne 8-31 area(s) 2 ity of acetonide 00:00: (two) [place] 0.1 % cream 00 times Medical daily. To Branch bumps mupirocin 2 2-0 Yes [id number] Apply to [facility] % ointment 8-31 area(s) 3 ity of 00:00: (three) [place] 00 times Medical daily. To Branch open wounds triamcinolo 2-0 Yes [id number] Apply to [facility] ne 8-31 area(s) 2 ity of acetonide 00:00: (two) [place] 0.1 % cream 00 times Medical daily. To Branch bumps mupirocin 2 2-0 Yes [id number] Apply to [facility] % ointment 8-31 area(s) 3 ity of 00:00: (three) [place] 00 times Medical daily. To Branch open wounds triamcinolo 2-0 Yes [id number] Apply to [facility] ne 8-31 area(s) 2 ity of acetonide 00:00: (two) [place] 0.1 % cream 00 times Medical daily. To Branch bumps mupirocin 2 2021-0 Yes [id number] Apply to [facility] % ointment 8-31 area(s) 3 ity of 00:00: (three) [place] 00 times Medical daily. To Branch open wounds triamcinolo 2-0 Yes [id number] Apply to [facility] ne 8-31 area(s) 2 ity of acetonide 00:00: (two) [place] 0.1 % cream 00 times Medical daily. To Branch bumps mupirocin 2 2021-0 Yes [id number] Apply to [facility] % ointment 8-31 area(s) 3 ity of 00:00: (three) [place] 00 times Medical daily. To Branch open wounds triamcinolo 2-0 Yes [id number] Apply to [facility] ne 8-31 area(s) 2 ity of acetonide 00:00: (two) [place] 0.1 % cream 00 times Medical daily. To Branch bumps mupirocin 2 2-0 Yes [id number] Apply to [facility] % ointment 8-31 area(s) 3 ity of 00:00: (three) [place] 00 times Medical daily. To Branch open wounds triamcinolo 2-0 Yes [id number] Apply to [facility] ne 8-31 area(s) 2 ity of acetonide 00:00: (two) [place] 0.1 % cream 00 times Medical daily. To Branch bumps mupirocin 2 2-0 Yes [id number] Apply to [facility] % ointment 8-31 area(s) 3 ity of 00:00: (three) [place] 00 times Medical daily. To Branch open wounds triamcinolo 2-0 Yes [id number] Apply to [facility] ne 8-31 area(s) 2 ity of acetonide 00:00: (two) [place] 0.1 % cream 00 times Medical daily. To Branch bumps mupirocin 2 2021-0 Yes [id number] Apply to [facility] % ointment 11-26 area(s) 3 ity of 00:00: (three) [place] 00 times Medical daily. To Branch open wounds triamcinolo 2021-0 Yes [id number] Apply to [facility] 11-26 area(s) 2 ity of acetonide 00:00: (two) [place] 0.1 % cream 00 times Medical daily. To Branch bumps mupirocin 2 2021-0 Yes [id number] Apply to [facility] % ointment 11-26 area(s) 3 ity of 00:00: (three) [place] 00 times Medical daily. To Branch open wounds triamcinolo 2021-0 2022- No [id number] Apply to [facility] 11-26 area(s) 2 ity of acetonide 00:00: 00:00 (two) [place] 0.1 % cream 00 :00 times Medical daily. To Branch bumps mupirocin 2 2021-0 2022- No [id number] Apply to [facility] % ointment 11-26 area(s) 3 ity of 00:00: 00:00 (three) [place] 00 :00 times Medical daily. To Branch open wounds triamcinolo 2021-0 3- No [id number] Apply to [facility] 11-26 area(s) 2 ity of acetonide 00:00: 00:00 (two) [place] 0.1 % cream 00 :00 times Medical daily. To Branch bumps mupirocin 2 2021-0 3- No [id number] Apply to [facility] % ointment 11-26 area(s) 3 ity of 00:00: 00:00 (three) [place] 00 :00 times Medical daily. To Branch open wounds dextroamphe 2021-2- No [id number] 20mg Take 1 [facility] tamine-amph 11-26 tablet by it y of etamine 00:00: 00:00 mouth in [place] (ADDERALL) 00 :00 the Medical 20 mg morning Branch tablet and 1 tablet at noon and 1 tablet in the evening. amoxicillin 2022-0 Yes [id number] 1{tbl} Take 1 [facility] -clavulanat 8-30 tablet by [facility] of e 875-125 00:00: mouth [place] mg per 00 every 12 Medical tablet (twelve) Branch hours. amoxicillin 2022-0 Yes [id number] 1{tbl} Take 1 [facility] -clavulanat 8-30 tablet by ity of e 875-125 00:00: mouth [place] mg per 00 every 12 Medical tablet (twelve) Branch hours. amoxicillin 2022-0 Yes [id number] 1{tbl} Take 1 [facility] -clavulanat 8-30 tablet by ity of e 875-125 00:00: mouth [place] mg per 00 every 12 Medical tablet (twelve) Branch hours. amoxicillin 202-0 Yes [id number] 1{tbl} Take 1 [facility] -clavulanat 8-30 tablet by ity of e 875-125 00:00: mouth [place] mg per 00 every 12 Medical tablet (twelve) Branch hours. amoxicillin 2021-0 Yes [id number] 1{tbl} Take 1 [facility] -clavulanat 8-30 tablet by ity of e 875-125 00:00: mouth [place] mg per 00 every 12 Medical tablet (twelve) Branch hours. amoxicillin 2022-0 Yes [id number] 1{tbl} Take 1 [facility] -clavulanat 8-30 tablet by ity of e 875-125 00:00: mouth [place] mg per 00 every 12 Medical tablet (twelve) Branch hours. amoxicillin 2021-0 Yes [id number] 1{tbl} Take 1 [facility] -clavulanat 8-30 tablet by ity of e 875-125 00:00: mouth [place] mg per 00 every 12 Medical tablet (twelve) Branch hours. amoxicillin 2022-0 Yes [id number] 1{tbl} Take 1 [facility] -clavulanat 8-30 tablet by [facility]y of e 875-125 00:00: mouth [place] mg per 00 every 12 Medical tablet (twelve) Branch hours. amoxicillin 2022-0 Yes [id number] 1{tbl} Take 1 [facility] -clavulanat 8-30 tablet by ity of e 875-125 00:00: mouth [place] mg per 00 every 12 Medical tablet (twelve) Branch hours. amoxicillin 2022-0 Yes [id number] 1{tbl} Take 1 [facility] -clavulanat 8-30 tablet by [facility] of e 875-125 00:00: mouth [place] mg per 00 every 12 Medical tablet (twelve) Branch hours. amoxicillin 2021-0 Yes [id number] 1{tbl} Take 1 [facility] -clavulanat 8-30 tablet by [facility] of e 875-125 00:00: mouth [place] mg per 00 every 12 Medical tablet (twelve) Branch hours. amoxicillin 2021-0 Yes [id number] 1{tbl} Take 1 [facility] -clavulanat 8-30 tablet by [facility]y of e 875-125 00:00: mouth [place] mg per 00 every 12 Medical tablet (twelve) Branch hours. amoxicillin 2021-0 Yes [id number] 1{tbl} Take 1 [facility] -clavulanat 8-30 tablet by [facility] of e 875-125 00:00: mouth [place] mg per 00 every 12 Medical tablet (twelve) Branch hours. amoxicillin 2021-0 Yes [id number] 1{tbl} Take 1 [facility] -clavulanat 8-30 tablet by [facility] of e 875-125 00:00: mouth [place] mg per 00 every 12 Medical tablet (twelve) Branch hours. amoxicillin 2021-0 Yes [id number] 1{tbl} Take 1 [facility] -clavulanat 8-30 tablet by [facility] of e 875-125 00:00: mouth [place] mg per 00 every 12 Medical tablet (twelve) Branch hours. amoxicillin 2021-0 Yes [id number] 1{tbl} Take 1 [facility] -clavulanat 8-30 tablet by [facility] of e 875-125 00:00: mouth [place] mg per 00 every 12 Medical tablet (twelve) Branch hours. amoxicillin 2021-0 Yes [id number] 1{tbl} Take 1 [facility] -clavulanat 8-30 tablet by [facility] of e 875-125 00:00: mouth [place] mg per 00 every 12 Medical tablet (twelve) Branch hours. amoxicillin 2021-0 Yes [id number] 1{tbl} Take 1 [facility] -clavulanat 8-30 tablet by [facility] of e 875-125 00:00: mouth [place] mg per 00 every 12 Medical tablet (twelve) Branch hours. amoxicillin 2021-0 2021- No [id number] 1{tbl} Take 1 [facility] -clavulanat 8-30 - tablet by it y of e 875-125 00:00: 00:00 mouth [place] mg per 00 :00 every 12 Medical tablet (twelve) Branch hours. amoxicillin 2021- No [id number] 1{tbl} Take 1 [facility] -clavulanat 8-30 - tablet by it y of e 875-125 00:00: 00:00 mouth [place] mg per 00 :00 every 12 Medical tablet (twelve) Branch hours. permethrin Yes [id number] Apply to [facility] ([facility]) 5 8-23 skin and ity of % cream 00:00: leave on [place] 00 for 8 - 10 Medical hours then Branch repeat in a week permethrin 2021- No [id number] Apply to [facility] ([facility]IM[facility]) 5 8-23 09-08 skin and ity of % cream 00:00: 00:00 leave on [place] 00 :00 for 8 - 10 Medical hours then Branch repeat in a week permethrin 2021- No [id number] Apply to [facility] (ELIM[facility]) 5 8-23 09-08 skin and ity of % cream 00:00: 00:00 leave on [place] 00 :00 for 8 - 10 Medical hours then Branch repeat in a week TRAZODONE Yes [id number] TAKE 1 [facility] vers 50 mg 8-08 TABLET BY ity of tablet 00:00: MOUTH [place] 00 EVERYDAY Medical AT BEDTIME Branch TRAZODONE 2021-0 Yes [id number] TAKE 1 [facility] vers 50 mg 8-08 TABLET BY ity of tablet 00:00: MOUTH [place] 00 EVERYDAY Medical AT BEDTIME Branch TRAZODONE 2021-0 Yes [id number] TAKE 1 [facility] vers 50 mg 8-08 TABLET BY ity of tablet 00:00: MOUTH [place] 00 EVERYDAY Medical AT BEDTIME Branch TRAZODONE 2021-0 Yes [id number] TAKE 1 [facility] vers 50 mg 8-08 TABLET BY ity of tablet 00:00: MOUTH [place] 00 EVERYDAY Medical AT BEDTIME Branch TRAZODONE 2021-0 Yes [id number] TAKE 1 [facility] vers 50 mg 8-08 TABLET BY ity of tablet 00:00: MOUTH [place] 00 EVERYDAY Medical AT BEDTIME Branch TRAZODONE 2021-0 Yes [id number] TAKE 1 [facility] vers 50 mg 8-08 TABLET BY ity of tablet 00:00: MOUTH 00 EVERYDAY Medical AT BEDTIME Branch TRAZODONE 2022-0 Yes [id number] TAKE 1 [facility] 50 mg 8-08 TABLET BY ity of tablet 00:00: MOUTH EVERYDAY Medical AT BEDTIME Branch TRAZODONE 2-0 Yes [id number] TAKE 1 [facility] 50 mg 8-08 TABLET BY ity of tablet 00:00: MOUTH EVERYDAY Medical AT BEDTIME Branch TRAZODONE 2-0 Yes [id number] TAKE 1 [facility] 50 mg 8-08 TABLET BY ity of tablet 00:00: MOUTH 00 EVERYDAY Medical AT BEDTIME Branch TRAZODONE 2-0 Yes [id number] TAKE 1 [facility] 50 mg 8-08 TABLET BY ity of tablet 00:00: MOUTH EVERYDAY Medical AT BEDTIME Branch TRAZODONE 2-0 Yes [id number] TAKE 1 [facility] 50 mg 8-08 TABLET BY ity of tablet 00:00: MOUTH EVERYDAY Medical AT BEDTIME Branch TRAZODONE 2-0 Yes [id number] TAKE 1 [facility] 50 mg 8-08 TABLET BY ity of tablet 00:00: MOUTH EVERYDAY Medical AT BEDTIME Branch TRAZODONE 2-0 Yes [id number] TAKE 1 [facility] 50 mg 8-08 TABLET BY ity of tablet 00:00: MOUTH EVERYDAY Medical AT BEDTIME Branch TRAZODONE 2-0 Yes [id number] TAKE 1 [facility] 50 mg 8-08 TABLET BY ity of tablet 00:00: MOUTH EVERYDAY Medical AT BEDTIME Branch TRAZODONE 2-0 Yes [id number] TAKE 1 [facility] 50 mg 8-08 TABLET BY ity of tablet 00:00: MOUTH EVERYDAY Medical AT BEDTIME Branch TRAZODONE 2-0 Yes [id number] TAKE 1 [facility] 50 mg 8-08 TABLET BY ity of tablet 00:00: MOUTH 00 EVERYDAY Medical AT BEDTIME Branch TRAZODONE 2-0 Yes [id number] TAKE 1 [facility] 50 mg 8-08 TABLET BY ity of tablet 00:00: MOUTH 00 EVERYDAY Medical AT BEDTIME Branch TRAZODONE 2-0 Yes [id number] TAKE 1 [facility] 50 mg 8-08 TABLET BY ity of tablet 00:00: MOUTH [place] 00 EVERYDAY Medical AT BEDTIME Branch TRAZODONE 2-0 Yes [id number] TAKE 1 [facility] vers 50 mg 8-08 TABLET BY ity of tablet 00:00: MOUTH EVERYDAY Medical AT BEDTIME Branch TRAZODONE 2-0 Yes [id number] TAKE 1 [facility] 50 mg 8-08 TABLET BY ity of tablet 00:00: MOUTH EVERYDAY Medical AT BEDTIME Branch TRAZODONE 2-0 Yes [id number] TAKE 1 [facility] 50 mg 8-08 TABLET BY ity of tablet 00:00: MOUTH EVERYDAY Medical AT BEDTIME Branch TRAZODONE 2-0 Yes [id number] TAKE 1 [facility] 50 mg 8-08 TABLET BY ity of tablet 00:00: MOUTH EVERYDAY Medical AT BEDTIME Branch TRAZODONE 2021-0 Yes [id number] TAKE 1 [facility] 50 mg 8-08 TABLET BY ity of tablet 00:00: MOUTH EVERYDAY Medical AT BEDTIME Branch TRAZODONE 2-0 Yes [id number] TAKE 1 [facility] 50 mg 8-08 TABLET BY ity of tablet 00:00: MOUTH EVERYDAY Medical AT BEDTIME Branch TRAZODONE 2-0 Yes [id number] TAKE 1 [facility] 50 mg 8-08 TABLET BY ity of tablet 00:00: MOUTH EVERYDAY Medical AT BEDTIME Branch TRAZODONE 2-0 Yes [id number] TAKE 1 [facility] 50 mg 8-08 TABLET BY ity of tablet 00:00: EVERYDAY Medical AT BEDTIME Branch TRAZODONE 2-0 Yes [id number] TAKE 1 [facility] 50 mg 8-08 TABLET BY ity of tablet 00:00: MOUTH EVERYDAY Medical AT BEDTIME Branch TRAZODONE 2-0 Yes [id number] TAKE 1 [facility] 50 mg 8-08 TABLET BY ity of tablet 00:00: MOUTH EVERYDAY Medical AT BEDTIME Branch TRAZODONE 2-0 Yes [id number] TAKE 1 [facility] 50 mg 8-08 TABLET BY ity of tablet 00:00: MOUTH EVERYDAY Medical AT BEDTIME Branch TRAZODONE 2-0 Yes [id number] TAKE 1 [facility] 50 mg 8-08 TABLET BY ity of tablet 00:00: MOUTH EVERYDAY Medical AT BEDTIME Branch TRAZODONE 2-0 Yes [id number] TAKE 1 [facility] 50 mg 8-08 TABLET BY ity of tablet 00:00: MOUTH 00 EVERYDAY Medical AT BEDTIME Branch TRAZODONE 2022-0 Yes [id number] TAKE 1 [facility] 50 mg 8-08 TABLET BY ity of tablet 00:00: MOUTH EVERYDAY Medical AT BEDTIME Branch TRAZODONE 2-0 Yes [id number] TAKE 1 [facility] 50 mg 8-08 TABLET BY ity of tablet 00:00: MOUTH EVERYDAY Medical AT BEDTIME Branch TRAZODONE 2-0 Yes [id number] TAKE 1 [facility] 50 mg 8-08 TABLET BY ity of tablet 00:00: MOUTH 00 EVERYDAY Medical AT BEDTIME Branch TRAZODONE 2-0 Yes [id number] TAKE 1 [facility] 50 mg 8-08 TABLET BY ity of tablet 00:00: MOUTH EVERYDAY Medical AT BEDTIME Branch TRAZODONE 2-0 Yes [id number] TAKE 1 [facility] 50 mg 8-08 TABLET BY ity of tablet 00:00: MOUTH EVERYDAY Medical AT BEDTIME Branch TRAZODONE 2-0 Yes [id number] TAKE 1 [facility] 50 mg 8-08 TABLET BY ity of tablet 00:00: MOUTH EVERYDAY Medical AT BEDTIME Branch TRAZODONE 2-0 Yes [id number] TAKE 1 [facility] 50 mg 8-08 TABLET BY ity of tablet 00:00: MOUTH EVERYDAY Medical AT BEDTIME Branch TRAZODONE 2-0 Yes [id number] TAKE 1 [facility] 50 mg 8-08 TABLET BY ity of tablet 00:00: MOUTH EVERYDAY Medical AT BEDTIME Branch TRAZODONE 2-0 Yes [id number] TAKE 1 [facility] 50 mg 8-08 TABLET BY ity of tablet 00:00: MOUTH EVERYDAY Medical AT BEDTIME Branch TRAZODONE 2-0 Yes [id number] TAKE 1 [facility] 50 mg 8-08 TABLET BY ity of tablet 00:00: MOUTH 00 EVERYDAY Medical AT BEDTIME Branch TRAZODONE 2-0 Yes [id number] TAKE 1 [facility] 50 mg 8-08 TABLET BY ity of tablet 00:00: MOUTH 00 EVERYDAY Medical AT BEDTIME Branch TRAZODONE 2-0 Yes [id number] TAKE 1 [facility] vers 50 mg 8-08 TABLET BY ity of tablet 00:00: MOUTH [place] 00 EVERYDAY Medical AT BEDTIME Branch TRAZODONE 2-0 Yes [id number] TAKE 1 [facility] vers 50 mg 8-08 TABLET BY ity of tablet 00:00: MOUTH EVERYDAY Medical AT BEDTIME Branch TRAZODONE 2-0 Yes [id number] TAKE 1 [facility] 50 mg 8-08 TABLET BY ity of tablet 00:00: MOUTH EVERYDAY Medical AT BEDTIME Branch TRAZODONE 2-0 Yes [id number] TAKE 1 [facility] 50 mg 8-08 TABLET BY ity of tablet 00:00: MOUTH EVERYDAY Medical AT BEDTIME Branch TRAZODONE 2-0 Yes [id number] TAKE 1 [facility] 50 mg 8-08 TABLET BY ity of tablet 00:00: MOUTH EVERYDAY Medical AT BEDTIME Branch TRAZODONE 2021-0 Yes [id number] TAKE 1 [facility] 50 mg 8-08 TABLET BY ity of tablet 00:00: MOUTH EVERYDAY Medical AT BEDTIME Branch TRAZODONE 2-0 Yes [id number] TAKE 1 [facility] 50 mg 8-08 TABLET BY ity of tablet 00:00: MOUTH EVERYDAY Medical AT BEDTIME Branch TRAZODONE 2-0 Yes [id number] TAKE 1 [facility] 50 mg 8-08 TABLET BY ity of tablet 00:00: MOUTH EVERYDAY Medical AT BEDTIME Branch TRAZODONE 2-0 Yes [id number] TAKE 1 [facility] 50 mg 8-08 TABLET BY ity of tablet 00:00: EVERYDAY Medical AT BEDTIME Branch TRAZODONE 2-0 Yes [id number] TAKE 1 [facility] 50 mg 8-08 TABLET BY ity of tablet 00:00: MOUTH EVERYDAY Medical AT BEDTIME Branch TRAZODONE 2-0 Yes [id number] TAKE 1 [facility] 50 mg 8-08 TABLET BY ity of tablet 00:00: MOUTH EVERYDAY Medical AT BEDTIME Branch TRAZODONE 2-0 Yes [id number] TAKE 1 [facility] 50 mg 8-08 TABLET BY ity of tablet 00:00: MOUTH EVERYDAY Medical AT BEDTIME Branch TRAZODONE 2-0 Yes [id number] TAKE 1 [facility] 50 mg 8-08 TABLET BY ity of tablet 00:00: MOUTH EVERYDAY Medical AT BEDTIME Branch TRAZODONE 2-0 Yes [id number] TAKE 1 [facility] 50 mg 8-08 TABLET BY ity of tablet 00:00: MOUTH 00 EVERYDAY Medical AT BEDTIME Branch TRAZODONE 2022-0 Yes [id number] TAKE 1 [facility] 50 mg 8-08 TABLET BY ity of tablet 00:00: MOUTH EVERYDAY Medical AT BEDTIME Branch TRAZODONE 2-0 Yes [id number] TAKE 1 [facility] 50 mg 8-08 TABLET BY ity of tablet 00:00: MOUTH EVERYDAY Medical AT BEDTIME Branch TRAZODONE 2-0 Yes [id number] TAKE 1 [facility] 50 mg 8-08 TABLET BY ity of tablet 00:00: MOUTH 00 EVERYDAY Medical AT BEDTIME Branch TRAZODONE 2-0 Yes [id number] TAKE 1 [facility] vers 50 mg 8-08 TABLET BY ity of tablet 00:00: MOUTH EVERYDAY Medical AT BEDTIME Branch TRAZODONE 2-0 Yes [id number] TAKE 1 [facility] 50 mg 8-08 TABLET BY ity of tablet 00:00: MOUTH EVERYDAY Medical AT BEDTIME Branch TRAZODONE 2-0 Yes [id number] TAKE 1 [facility] 50 mg 8-08 TABLET BY ity of tablet 00:00: MOUTH EVERYDAY Medical AT BEDTIME Branch TRAZODONE 2-0 Yes [id number] TAKE 1 [facility] 50 mg 8-08 TABLET BY ity of tablet 00:00: MOUTH EVERYDAY Medical AT BEDTIME Branch TRAZODONE 2-0 Yes [id number] TAKE 1 [facility] 50 mg 8-08 TABLET BY ity of tablet 00:00: MOUTH EVERYDAY Medical AT BEDTIME Branch TRAZODONE 2-0 Yes [id number] TAKE 1 [facility] 50 mg 8-08 TABLET BY ity of tablet 00:00: MOUTH EVERYDAY Medical AT BEDTIME Branch TRAZODONE 2-0 Yes [id number] TAKE 1 [facility] 50 mg 8-08 TABLET BY ity of tablet 00:00: MOUTH 00 EVERYDAY Medical AT BEDTIME Branch TRAZODONE 2-0 Yes [id number] TAKE 1 [facility] 50 mg 8-08 TABLET BY ity of tablet 00:00: MOUTH 00 EVERYDAY Medical AT BEDTIME Branch TRAZODONE 2-0 Yes [id number] TAKE 1 [facility] 50 mg 8-08 TABLET BY ity of tablet 00:00: MOUTH [place] 00 EVERYDAY Medical AT BEDTIME Branch TRAZODONE 2-0 Yes [id number] TAKE 1 [facility] vers 50 mg 8-08 TABLET BY ity of tablet 00:00: MOUTH EVERYDAY Medical AT BEDTIME Branch TRAZODONE 2-0 Yes [id number] TAKE 1 [facility] 50 mg 8-08 TABLET BY ity of tablet 00:00: MOUTH EVERYDAY Medical AT BEDTIME Branch TRAZODONE 2-0 Yes [id number] TAKE 1 [facility] 50 mg 8-08 TABLET BY ity of tablet 00:00: MOUTH EVERYDAY Medical AT BEDTIME Branch TRAZODONE 2-0 Yes [id number] TAKE 1 [facility] 50 mg 8-08 TABLET BY ity of tablet 00:00: MOUTH EVERYDAY Medical AT BEDTIME Branch TRAZODONE 2021-0 Yes [id number] TAKE 1 [facility] 50 mg 8-08 TABLET BY ity of tablet 00:00: MOUTH EVERYDAY Medical AT BEDTIME Branch TRAZODONE 2-0 Yes [id number] TAKE 1 [facility] vers 50 mg 8-08 TABLET BY ity of tablet 00:00: MOUTH EVERYDAY Medical AT BEDTIME Branch TRAZODONE 2-0 Yes [id number] TAKE 1 [facility] 50 mg 8-08 TABLET BY ity of tablet 00:00: MOUTH EVERYDAY Medical AT BEDTIME Branch TRAZODONE 2-0 Yes [id number] TAKE 1 [facility] vers 50 mg 8-08 TABLET BY ity of tablet 00:00: EVERYDAY Medical AT BEDTIME Branch TRAZODONE 2-0 Yes [id number] TAKE 1 [facility] vers 50 mg 8-08 TABLET BY ity of tablet 00:00: MOUTH EVERYDAY Medical AT BEDTIME Branch TRAZODONE 2-0 Yes [id number] TAKE 1 [facility] vers 50 mg 8-08 TABLET BY ity of tablet 00:00: MOUTH EVERYDAY Medical AT BEDTIME Branch TRAZODONE 2-0 Yes [id number] TAKE 1 [facility] vers 50 mg 8-08 TABLET BY ity of tablet 00:00: MOUTH EVERYDAY Medical AT BEDTIME Branch TRAZODONE 2-0 Yes [id number] TAKE 1 [facility] vers 50 mg 8-08 TABLET BY ity of tablet 00:00: MOUTH EVERYDAY Medical AT BEDTIME Branch TRAZODONE 2-0 Yes [id number] TAKE 1 [facility] vers 50 mg 8-08 TABLET BY ity of tablet 00:00: MOUTH 00 EVERYDAY Medical AT BEDTIME Branch TRAZODONE 2022-0 Yes [id number] TAKE 1 [facility] vers 50 mg 8-08 TABLET BY ity of tablet 00:00: MOUTH EVERYDAY Medical AT BEDTIME Branch TRAZODONE 2-0 Yes [id number] TAKE 1 [facility] vers 50 mg 8-08 TABLET BY ity of tablet 00:00: MOUTH EVERYDAY Medical AT BEDTIME Branch TRAZODONE 2-0 Yes [id number] TAKE 1 [facility] vers 50 mg 8-08 TABLET BY ity of tablet 00:00: MOUTH 00 EVERYDAY Medical AT BEDTIME Branch TRAZODONE 2-0 Yes [id number] TAKE 1 [facility] vers 50 mg 8-08 TABLET BY ity of tablet 00:00: MOUTH EVERYDAY Medical AT BEDTIME Branch TRAZODONE 2-0 Yes [id number] TAKE 1 [facility] vers 50 mg 8-08 TABLET BY ity of tablet 00:00: MOUTH EVERYDAY Medical AT BEDTIME Branch TRAZODONE 2-0 Yes [id number] TAKE 1 [facility] vers 50 mg 8-08 TABLET BY ity of tablet 00:00: MOUTH EVERYDAY Medical AT BEDTIME Branch TRAZODONE 2-0 Yes [id number] TAKE 1 [facility] vers 50 mg 8-08 TABLET BY ity of tablet 00:00: MOUTH EVERYDAY Medical AT BEDTIME Branch TRAZODONE 2-0 Yes [id number] TAKE 1 [facility] vers 50 mg 8-08 TABLET BY ity of tablet 00:00: MOUTH EVERYDAY Medical AT BEDTIME Branch TRAZODONE 2-0 Yes [id number] TAKE 1 [facility] vers 50 mg 8-08 TABLET BY ity of tablet 00:00: MOUTH EVERYDAY Medical AT BEDTIME Branch TRAZODONE 2-0 Yes [id number] TAKE 1 [facility] vers 50 mg 8-08 TABLET BY ity of tablet 00:00: MOUTH 00 EVERYDAY Medical AT BEDTIME Branch TRAZODONE 2-0 Yes [id number] TAKE 1 [facility] vers 50 mg 8-08 TABLET BY ity of tablet 00:00: MOUTH 00 EVERYDAY Medical AT BEDTIME Branch TRAZODONE 2-0 Yes [id number] TAKE 1 [facility] vers 50 mg 8-08 TABLET BY ity of tablet 00:00: MOUTH [place] 00 EVERYDAY Medical AT BEDTIME Branch TRAZODONE 2-0 Yes [id number] TAKE 1 [facility] vers 50 mg 8-08 TABLET BY ity of tablet 00:00: MOUTH EVERYDAY Medical AT BEDTIME Branch TRAZODONE 2-0 Yes [id number] TAKE 1 [facility] vers 50 mg 8-08 TABLET BY ity of tablet 00:00: MOUTH EVERYDAY Medical AT BEDTIME Branch TRAZODONE 2-0 Yes [id number] TAKE 1 [facility] 50 mg 8-08 TABLET BY ity of tablet 00:00: MOUTH EVERYDAY Medical AT BEDTIME Branch TRAZODONE 2-0 Yes [id number] TAKE 1 [facility] 50 mg 8-08 TABLET BY ity of tablet 00:00: MOUTH EVERYDAY Medical AT BEDTIME Branch TRAZODONE 2021-0 Yes [id number] TAKE 1 [facility] 50 mg 8-08 TABLET BY ity of tablet 00:00: MOUTH EVERYDAY Medical AT BEDTIME Branch TRAZODONE 2-0 Yes [id number] TAKE 1 [facility] 50 mg 8-08 TABLET BY ity of tablet 00:00: MOUTH EVERYDAY Medical AT BEDTIME Branch TRAZODONE 2-0 Yes [id number] TAKE 1 [facility] vers 50 mg 8-08 TABLET BY ity of tablet 00:00: MOUTH EVERYDAY Medical AT BEDTIME Branch TRAZODONE 2-0 Yes [id number] TAKE 1 [facility] vers 50 mg 8-08 TABLET BY ity of tablet 00:00: EVERYDAY Medical AT BEDTIME Branch TRAZODONE 2-0 Yes [id number] TAKE 1 [facility] 50 mg 8-08 TABLET BY ity of tablet 00:00: MOUTH EVERYDAY Medical AT BEDTIME Branch TRAZODONE 2-0 Yes [id number] TAKE 1 [facility] vers 50 mg 8-08 TABLET BY ity of tablet 00:00: MOUTH EVERYDAY Medical AT BEDTIME Branch TRAZODONE 2-0 Yes [id number] TAKE 1 [facility] vers 50 mg 8-08 TABLET BY ity of tablet 00:00: MOUTH EVERYDAY Medical AT BEDTIME Branch TRAZODONE 2-0 Yes [id number] TAKE 1 [facility] vers 50 mg 8-08 TABLET BY ity of tablet 00:00: MOUTH EVERYDAY Medical AT BEDTIME Branch TRAZODONE 2-0 Yes [id number] TAKE 1 [facility] vers 50 mg 8-08 TABLET BY ity of tablet 00:00: MOUTH 00 EVERYDAY Medical AT BEDTIME Branch TRAZODONE 2022-0 Yes [id number] TAKE 1 [facility] vers 50 mg 8-08 TABLET BY ity of tablet 00:00: MOUTH 00 EVERYDAY Medical AT BEDTIME Branch TRAZODONE 2-0 Yes [id number] TAKE 1 [facility] vers 50 mg 8-08 TABLET BY ity of tablet 00:00: MOUTH EVERYDAY Medical AT BEDTIME Branch TRAZODONE 2021-0 Yes [id number] TAKE 1 [facility] vers 50 mg 8-08 TABLET BY ity of tablet 00:00: MOUTH 00 EVERYDAY Medical AT BEDTIME Branch TRAZODONE 2-0 Yes [id number] TAKE 1 [facility] vers 50 mg 8-08 TABLET BY ity of tablet 00:00: MOUTH EVERYDAY Medical AT BEDTIME Branch TRAZODONE 2021-0 Yes [id number] TAKE 1 [facility] vers 50 mg 8-08 TABLET BY ity of tablet 00:00: [facility] EVERYDAY Medical AT BEDTIME Branch TRAZODONE 2021-0 Yes [id number] TAKE 1 [facility] vers 50 mg 8-08 TABLET BY ity of tablet 00:00: MOUTH EVERYDAY Medical AT BEDTIME Branch TRAZODONE 2021-0 Yes [id number] TAKE 1 [facility] vers 50 mg 8-08 TABLET BY ity of tablet 00:00: MOUTH EVERYDAY Medical AT BEDTIME Branch TRAZODONE 2-0 Yes [id number] TAKE 1 [facility] vers 50 mg 8-08 TABLET BY ity of tablet 00:00: [facility] EVERYDAY Medical AT BEDTIME Branch TRAZODONE 2-0 Yes [id number] TAKE 1 [facility] vers 50 mg 8-08 TABLET BY ity of tablet 00:00: MOUTH EVERYDAY Medical AT BEDTIME Branch clonazePAM 2-0 Yes [id number] 1mg Take 1 [facility] 1 mg tablet 7-13 tablet by ity of 00:00: mouth in [place] the Medical morning Branch and 1 tablet at noon and 1 tablet in the evening. clonazePAM 2021-0 Yes [id number] 1mg Take 1 [facility] 1 mg tablet 7-13 tablet by ity of 00:00: mouth in [place] the Medical morning Branch and 1 tablet at noon and 1 tablet in the evening. clonazePAM 2021-0 Yes [id number] 1mg Take 1 [facility] 1 mg tablet 7-13 tablet by ity of 00:00: mouth in [place] [address] the Medical morning Branch and 1 tablet at noon and 1 tablet in the evening. clonazePAM 2022-0 Yes [id number] 1mg Take 1 [facility] 1 mg tablet 7-13 tablet by ity of 00:00: mouth in [place] [address] the Medical morning Branch and 1 tablet at noon and 1 tablet in the evening. clonazePAM 2022-0 Yes [id number] 1mg Take 1 [facility] 1 mg tablet 7-13 tablet by ity of 00:00: mouth in [place] [address] the Medical morning Branch and 1 tablet at noon and 1 tablet in the evening. clonazePAM 2022-0 Yes [id number] 1mg Take 1 [facility] 1 mg tablet 7-13 tablet by ity of 00:00: mouth in [place] [address] the Medical morning Branch and 1 tablet at noon and 1 tablet in the evening. clonazePAM 2022-0 Yes [id number] 1mg Take 1 [facility] 1 mg tablet 7-13 tablet by ity of 00:00: mouth in [place] [address] the Medical morning [place] and 1 tablet at noon and 1 tablet in the evening. clonazePAM 2022-0 Yes [id number] 1mg Take 1 [facility] 1 mg tablet 7-13 tablet by ity of 00:00: mouth in [place] [address] the Medical morning [place] and 1 tablet at noon and 1 tablet in the evening. clonazePAM 2022-0 Yes [id number] 1mg Take 1 [facility] 1 mg tablet 7-13 tablet by ity of 00:00: mouth in [place] [address] the Medical morning [place] and 1 tablet at noon and 1 tablet in the evening. clonazePAM 2022-0 Yes [id number] 1mg Take 1 [facility] 1 mg tablet 7-13 tablet by ity of 00:00: mouth in [place] [address] the Medical morning Branch and 1 tablet at noon and 1 tablet in the evening. clonazePAM 2022-0 Yes [id number] 1mg Take 1 [facility] 1 mg tablet 7-13 tablet by ity of 00:00: mouth in [place] [address] the Medical morning [place] and 1 tablet at noon and 1 tablet in the evening. clonazePAM 2022-0 Yes [id number] 1mg Take 1 [facility] 1 mg tablet 7-13 tablet by ity of 00:00: mouth in [address] Medical morning [place] and 1 tablet at noon and 1 tablet in the evening. clonazePAM 2022-0 Yes [id number] 1mg Take 1 [facility] 1 mg tablet 7-13 tablet by ity of 00:00: mouth in [place] 00 the Medical morning Branch and 1 tablet at noon and 1 tablet in the evening. clonazePAM 2022-0 Yes [id number] 1mg Take 1 [facility] 1 mg tablet 7-13 tablet by ity of 00:00: mouth in [place] 00 the Medical morning Branch and 1 tablet at noon and 1 tablet in the evening. clonazePAM 2022-0 Yes [id number] 1mg Take 1 [facility] 1 mg tablet 7-13 tablet by ity of 00:00: mouth in [place] 00 the Medical morning Branch and 1 tablet at noon and 1 tablet in the evening. clonazePAM 2022-0 Yes [id number] 1mg Take 1 [facility] 1 mg tablet 7-13 tablet by ity of 00:00: mouth in [place] [address] the Medical morning Branch and 1 tablet at noon and 1 tablet in the evening. clonazePAM 2022-0 Yes [id number] 1mg Take 1 [facility] 1 mg tablet 7-13 tablet by ity of 00:00: mouth in [place] [address] the Medical morning Branch and 1 tablet at noon and 1 tablet in the evening. clonazePAM 2022-0 Yes [id number] 1mg Take 1 [facility] 1 mg tablet 7-13 tablet by ity of 00:00: mouth in [place] [address] the Medical morning Branch and 1 tablet at noon and 1 tablet in the evening. clonazePAM 2022-0 2022- No [id number] 1mg Take 1 [facility] 1 mg tablet 7-13 -01 tablet by it y of 00:00: 00:00 mouth in [place] 00 :00 the Medical morning Branch and 1 tablet at noon and 1 tablet in the evening. clonazePAM 2022-0 2022- No [id number] 1mg Take 1 [facility] 1 mg tablet 7-13 11-01 tablet by it y of 00:00: 00:00 mouth in [place] 00 :00 the Medical morning [place] and 1 tablet at noon and 1 tablet in the evening. ZONISAMIDE 2022-0 Yes [id number] TAKE 1 [facility] 100 mg 7-12 CAPSULE BY ity of capsule 00:00: MOUTH [place] 00 TWICE A Medical DAY Branch ZONISAMIDE 2022-0 Yes [id number] TAKE 1 [facility] 100 mg 7-12 CAPSULE BY ity of capsule 00:00: MOUTH [place] 00 TWICE A Medical DAY Branch ZONISAMIDE 2-0 Yes [id number] TAKE 1 [facility] 100 mg 7-12 CAPSULE BY ity of capsule 00:00: MOUTH TWICE A Medical DAY Branch ZONISAMIDE 2021-0 Yes [id number] TAKE 1 [facility] 100 mg 7-12 CAPSULE BY ity of capsule 00:00: MOUTH TWICE A Medical DAY Branch ZONISAMIDE 2021-0 Yes [id number] TAKE 1 [facility] 100 mg 7-12 CAPSULE BY ity of capsule 00:00: MOUTH TWICE A Medical DAY Branch ZONISAMIDE 2021-0 Yes [id number] TAKE 1 [facility] 100 mg 7-12 CAPSULE BY ity of capsule 00:00: MOUTH TWICE A Medical DAY Branch ZONISAMIDE 2021-0 Yes [id number] TAKE 1 [facility] 100 mg 7-12 CAPSULE BY ity of capsule 00:00: MOUTH TWICE A Medical DAY Branch ZONISAMIDE 2021-0 Yes [id number] TAKE 1 [facility] 100 mg 7-12 CAPSULE BY ity of capsule 00:00: MOUTH TWICE A Medical DAY Branch ZONISAMIDE 2021-0 Yes [id number] TAKE 1 [facility] 100 mg 7-12 CAPSULE BY ity of capsule 00:00: MOUTH TWICE A Medical DAY Branch ZONISAMIDE 2021-0 Yes [id number] TAKE 1 [facility] 100 mg 7-12 CAPSULE BY ity of capsule 00:00: MOUTH TWICE A Medical DAY Branch ZONISAMIDE 2021-0 Yes [id number] TAKE 1 [facility] 100 mg 7-12 CAPSULE BY ity of capsule 00:00: MOUTH TWICE A Medical DAY Branch ZONISAMIDE 2021-0 Yes [id number] TAKE 1 [facility] 100 mg 7-12 CAPSULE BY ity of capsule 00:00: MOUTH TWICE A Medical DAY Branch ZONISAMIDE 2021-0 Yes [id number] TAKE 1 [facility] 100 mg 7-12 CAPSULE BY ity of capsule 00:00: MOUTH TWICE A Medical DAY Branch ZONISAMIDE 2021-0 Yes [id number] TAKE 1 [facility] 100 mg 7-12 CAPSULE BY ity of capsule 00:00: MOUTH TWICE A Medical DAY Branch ZONISAMIDE 2021-0 Yes [id number] TAKE 1 [facility] 100 mg 7-12 CAPSULE BY ity of capsule 00:00: MOUTH [place] TWICE A Medical DAY Branch ZONISAMIDE 2021-0 Yes [id number] TAKE 1 [facility] 100 mg 7-12 CAPSULE BY ity of capsule 00:00: MOUTH TWICE A Medical DAY Branch ZONISAMIDE 2021-0 Yes [id number] TAKE 1 [facility] 100 mg 7-12 CAPSULE BY ity of capsule 00:00: MOUTH TWICE A Medical DAY Branch ZONISAMIDE 2021-0 Yes [id number] TAKE 1 [facility] 100 mg 7-12 CAPSULE BY ity of capsule 00:00: MOUTH TWICE A Medical DAY Branch ZONISAMIDE 2021-0 Yes [id number] TAKE 1 [facility] 100 mg 7-12 CAPSULE BY ity of capsule 00:00: MOUTH TWICE A Medical DAY Branch ZONISAMIDE 2021-0 Yes [id number] TAKE 1 [facility] 100 mg 7-12 CAPSULE BY ity of capsule 00:00: MOUTH TWICE A Medical DAY Branch ZONISAMIDE 2021-0 Yes [id number] TAKE 1 [facility] 100 mg 7-12 CAPSULE BY ity of capsule 00:00: MOUTH TWICE A Medical DAY Branch ZONISAMIDE 2021-0 Yes [id number] TAKE 1 [facility] 100 mg 7-12 CAPSULE BY ity of capsule 00:00: MOUTH TWICE A Medical DAY Branch ZONISAMIDE 2021-0 Yes [id number] TAKE 1 [facility] 100 mg 7-12 CAPSULE BY ity of capsule 00:00: MOUTH TWICE A Medical DAY Branch ZONISAMIDE 2021-0 Yes [id number] TAKE 1 [facility] 100 mg 7-12 CAPSULE BY ity of capsule 00:00: MOUTH TWICE A Medical DAY Branch ZONISAMIDE 2021-0 Yes [id number] TAKE 1 [facility] 100 mg 7-12 CAPSULE BY ity of capsule 00:00: MOUTH TWICE A Medical DAY Branch ZONISAMIDE 2021-0 Yes [id number] TAKE 1 [facility] 100 mg 7-12 CAPSULE BY ity of capsule 00:00: MOUTH TWICE A Medical DAY Branch ZONISAMIDE 2021-0 Yes [id number] TAKE 1 [facility] 100 mg 7-12 CAPSULE BY ity of capsule 00:00: MOUTH TWICE A Medical DAY Branch ZONISAMIDE 2021-0 Yes [id number] TAKE 1 [facility] 100 mg 7-12 CAPSULE BY ity of capsule 00:00: MOUTH [place] 00 TWICE A Medical DAY Branch ZONISAMIDE 2021-0 Yes [id number] TAKE 1 [facility] 100 mg 7-12 CAPSULE BY ity of capsule 00:00: MOUTH [place] 00 TWICE A Medical DAY Branch ZONISAMIDE 2021-0 Yes [id number] TAKE 1 [facility] 100 mg 7-12 CAPSULE BY ity of capsule 00:00: MOUTH [place] 00 TWICE A Medical DAY Branch ZONISAMIDE 2021-0 Yes [id number] TAKE 1 [facility] 100 mg 7-12 CAPSULE BY ity of capsule 00:00: MOUTH [place] 00 TWICE A Medical DAY [place] ZONISAMIDE 2021-0 2021- No [id number] TAKE 1 [facility] 100 mg 7-12 12-27 CAPSULE BY ity of capsule 00:00: 00:00 MOUTH [place] 00 :00 TWICE A Medical DAY [place] SYNTHROID 0 Yes [id number] TAKE 1 U nivers 150 mcg 7-08 TABLET BY ity of tablet 00:00: MOUTH [place] 00 EVERY DAY Medical IN THE [place] MORNING SYNTHROID 0 Yes [id number] TAKE 1 U nivers 150 mcg 7-08 TABLET BY ity of tablet 00:00: MOUTH [place] 00 EVERY DAY Medical IN THE [place] MORNING SYNTHROID 0 Yes [id number] TAKE 1 U nivers 150 mcg 7-08 TABLET BY ity of tablet 00:00: MOUTH [place] 00 EVERY DAY Medical IN THE [facility] SYNTHROID 0 Yes [id number] TAKE 1 U nivers 150 mcg 7-08 TABLET BY ity of tablet 00:00: MOUTH [place] 00 EVERY DAY Medical IN THE [place] MORNING SYNTHROID 2021-0 Yes [id number] TAKE 1 U nivers 150 mcg 7-08 TABLET BY ity of tablet 00:00: MOUTH [place] 00 EVERY DAY Medical IN THE [place] MORNING SYNTHROID 2021-0 Yes [id number] TAKE 1 U nivers 150 mcg 7-08 TABLET BY ity of tablet 00:00: MOUTH [place] 00 EVERY DAY Medical IN THE [place] MORNING SYNTHROID 2021-0 Yes [id number] TAKE 1 U nivers 150 mcg 7-08 TABLET BY ity of tablet 00:00: MOUTH [place] 00 EVERY DAY Medical IN THE [place] MORNING SYNTHROID 2021-0 Yes [id number] TAKE 1 U nivers 150 mcg 7-08 TABLET BY ity of tablet 00:00: MOUTH [place] 00 EVERY DAY Medical IN THE [facility] SYNTHROID Yes [id number] TAKE 1 U nivers 150 mcg 7-08 TABLET BY ity of tablet 00:00: MOUTH [place] 00 EVERY DAY Medical IN THE [facility] SYNTHROID Yes [id number] TAKE 1 U nivers 150 mcg 7-08 TABLET BY ity of tablet 00:00: MOUTH [place] 00 EVERY DAY Medical IN THE [facility] SYNTHROID Yes [id number] TAKE 1 U nivers 150 mcg 7-08 TABLET BY ity of tablet 00:00: MOUTH [place] 00 EVERY DAY Medical IN THE [facility] SYNTHROID Yes [id number] TAKE 1 U nivers 150 mcg 7-08 TABLET BY ity of tablet 00:00: MOUTH [place] 00 EVERY DAY Medical IN THE [facility] SYNTHROID Yes [id number] TAKE 1 U nivers 150 mcg 7-08 TABLET BY ity of tablet 00:00: MOUTH [place] 00 EVERY DAY Medical IN THE [facility] SYNTHROID Yes [id number] TAKE 1 U nivers 150 mcg 7-08 TABLET BY ity of tablet 00:00: MOUTH [place] 00 EVERY DAY Medical IN THE [facility] SYNTHROID Yes [id number] TAKE 1 U nivers 150 mcg 7-08 TABLET BY ity of tablet 00:00: MOUTH [place] 00 EVERY DAY Medical IN THE [facility] SYNTHROID Yes [id number] TAKE 1 U nivers 150 mcg 7-08 TABLET BY ity of tablet 00:00: MOUTH [place] 00 EVERY DAY Medical IN THE [facility] SYNTHROID Yes [id number] TAKE 1 U nivers 150 mcg 7-08 TABLET BY ity of tablet 00:00: MOUTH [place] 00 EVERY DAY Medical IN THE [facility] SYNTHROID Yes [id number] TAKE 1 U nivers 150 mcg 7-08 TABLET BY ity of tablet 00:00: MOUTH [place] 00 EVERY DAY Medical IN THE [facility] SYNTHROID Yes [id number] TAKE 1 U nivers 150 mcg 7-08 TABLET BY ity of tablet 00:00: MOUTH [place] 00 EVERY DAY Medical IN THE [facility] SYNTHROID Yes [id number] TAKE 1 U nivers 150 mcg 7-08 TABLET BY ity of tablet 00:00: MOUTH [place] 00 EVERY DAY Medical IN THE [facility] SYNTHROID Yes [id number] TAKE 1 U nivers 150 mcg 7-08 TABLET BY ity of tablet 00:00: MOUTH [place] 00 EVERY DAY Medical IN THE [facility] SYNTHROID Yes [id number] TAKE 1 U nivers 150 mcg 7-08 TABLET BY ity of tablet 00:00: MOUTH [place] 00 EVERY DAY Medical IN THE [facility] SYNTHROID Yes [id number] TAKE 1 U nivers 150 mcg 7-08 TABLET BY ity of tablet 00:00: MOUTH [place] 00 EVERY DAY Medical IN THE [facility] SYNTHROID Yes [id number] TAKE 1 U nivers 150 mcg 7-08 TABLET BY ity of tablet 00:00: MOUTH [place] 00 EVERY DAY Medical IN THE [facility] SYNTHROID Yes [id number] TAKE 1 U nivers 150 mcg 7-08 TABLET BY ity of tablet 00:00: MOUTH [place] 00 EVERY DAY Medical IN THE [facility] SYNTHROID Yes [id number] TAKE 1 U nivers 150 mcg 7-08 TABLET BY ity of tablet 00:00: MOUTH [place] 00 EVERY DAY Medical IN THE [facility] SYNTHROID Yes [id number] TAKE 1 U nivers 150 mcg 7-08 TABLET BY ity of tablet 00:00: MOUTH [place] 00 EVERY DAY Medical IN THE [facility] SYNTHROID Yes [id number] TAKE 1 U nivers 150 mcg 7-08 TABLET BY ity of tablet 00:00: MOUTH [place] 00 EVERY DAY Medical IN THE [facility] SYNTHROID Yes [id number] TAKE 1 U nivers 150 mcg 7-08 TABLET BY ity of tablet 00:00: MOUTH [place] 00 EVERY DAY Medical IN THE [facility] SYNTHROID Yes [id number] TAKE 1 U nivers 150 mcg 7-08 TABLET BY ity of tablet 00:00: MOUTH [place] 00 EVERY DAY Medical IN THE [facility] SYNTHROID 0 Yes [id number] TAKE 1 U nivers 150 mcg 7-08 TABLET BY ity of tablet 00:00: MOUTH [place] 00 EVERY DAY Medical IN THE [facility] SYNTHROID Yes [id number] TAKE 1 U nivers 150 mcg 7-08 TABLET BY ity of tablet 00:00: MOUTH [place] 00 EVERY DAY Medical IN THE Branch MORNING SYNTHROID 2021-0 3- No [id number] TAKE 1 [facility] 150 mcg 703-30 TABLET BY ity of tablet 00:00: 00:00 MOUTH [place] 00 :00 EVERY DAY Medical IN THE Branch MORNING SERTRALINE 2021-0 Yes [id number] TAKE 1 [facility] 100 mg 6-17 TABLET BY ity of tablet 00:00: MOUTH [place] 00 EVERY DAY Medical Branch SERTRALINE 2021-0 Yes [id number] TAKE 1 [facility] 100 mg 6-17 TABLET BY ity of tablet 00:00: MOUTH [place] 00 EVERY DAY Medical Branch SERTRALINE 2021-0 Yes [id number] TAKE 1 [facility] 100 mg 6-17 TABLET BY ity of tablet 00:00: MOUTH [place] 00 EVERY DAY Medical Branch SERTRALINE 2021-0 Yes [id number] TAKE 1 [facility] 100 mg 6-17 TABLET BY ity of tablet 00:00: MOUTH [place] 00 EVERY DAY Medical Branch SERTRALINE 2021-0 Yes [id number] TAKE 1 [facility] 100 mg 6-17 TABLET BY ity of tablet 00:00: MOUTH [place] 00 EVERY DAY Medical Branch SERTRALINE 2021-0 Yes [id number] TAKE 1 [facility] 100 mg 6-17 TABLET BY ity of tablet 00:00: MOUTH [place] 00 EVERY DAY Medical Branch SERTRALINE 2021-0 Yes [id number] TAKE 1 [facility] 100 mg 6-17 TABLET BY ity of tablet 00:00: MOUTH [place] 00 EVERY DAY Medical Branch SERTRALINE 2021-0 Yes [id number] TAKE 1 [facility] 100 mg 6-17 TABLET BY ity of tablet 00:00: MOUTH [place] 00 EVERY DAY Medical Branch SERTRALINE 2021-0 Yes [id number] TAKE 1 [facility] 100 mg 6-17 TABLET BY ity of tablet 00:00: MOUTH [place] 00 EVERY DAY Medical Branch SERTRALINE 2021-0 Yes [id number] TAKE 1 [facility] 100 mg 6-17 TABLET BY ity of tablet 00:00: MOUTH [place] 00 EVERY DAY Medical Branch SERTRALINE 2021-0 Yes [id number] TAKE 1 [facility] 100 mg 6-17 TABLET BY ity of tablet 00:00: MOUTH [place] 00 EVERY DAY Medical Branch SERTRALINE 2021-0 Yes [id number] TAKE 1 [facility] 100 mg 6-17 TABLET BY ity of tablet 00:00: MOUTH [place] 00 EVERY DAY Medical Branch SERTRALINE 2021-0 Yes [id number] TAKE 1 [facility] 100 mg 6-17 TABLET BY ity of tablet 00:00: MOUTH [place] 00 EVERY DAY Medical Branch SERTRALINE 2021-0 Yes [id number] TAKE 1 [facility] 100 mg 6-17 TABLET BY ity of tablet 00:00: MOUTH [place] 00 EVERY DAY Medical Branch SERTRALINE 2021-0 Yes [id number] TAKE 1 [facility] 100 mg 6-17 TABLET BY ity of tablet 00:00: MOUTH [place] 00 EVERY DAY Medical Branch SERTRALINE 2021-0 Yes [id number] TAKE 1 [facility] 100 mg 6-17 TABLET BY ity of tablet 00:00: MOUTH [place] 00 EVERY DAY Medical Branch SERTRALINE 2021-0 Yes [id number] TAKE 1 [facility] 100 mg 6-17 TABLET BY ity of tablet 00:00: MOUTH [place] 00 EVERY DAY Medical Branch SERTRALINE 2021-0 Yes [id number] TAKE 1 [facility] 100 mg 6-17 TABLET BY ity of tablet 00:00: [facility] 00 EVERY DAY Medical Branch SERTRALINE 2021-0 Yes [id number] TAKE 1 [facility] 100 mg 6-17 TABLET BY ity of tablet 00:00: MOUTH [place] 00 EVERY DAY Medical Branch SERTRALINE 2021-0 Yes [id number] TAKE 1 [facility] 100 mg 6-17 TABLET BY ity of tablet 00:00: MOUTH [place] 00 EVERY DAY Medical Branch SERTRALINE 2021-0 Yes [id number] TAKE 1 [facility] 100 mg 6-17 TABLET BY ity of tablet 00:00: [facility] 00 EVERY DAY Medical Branch SERTRALINE 2021-0 Yes [id number] TAKE 1 [facility] 100 mg 6-17 TABLET BY ity of tablet 00:00: [facility] 00 EVERY DAY Medical Branch SERTRALINE 2021-0 2022- No [id number] TAKE 1 [facility] 100 mg 6-17 12-13 TABLET BY ity of tablet 00:00: 00:00 MOUTH [place] 00 :00 EVERY DAY Medical Branch acetaminoph 2021-0 Yes Take by Uni vers en (TYLENOL 2-10 mouth. ity of ORAL) 15:18: [place] [id number] Medical Branch acetaminoph 2021-0 Yes Take by Uni vers en (TYLENOL 2-10 mouth. ity of ORAL) 15:18: [place] [id number] Medical Branch acetaminoph 2022-0 Yes Take by Uni vers en (TYLENOL 2-10 mouth. ity of ORAL) 15:18: [place] [address] Medical Branch acetaminoph Yes Take by Uni vers en (TYLENOL 2-10 mouth. ity of ORAL) 15:18: [address] Branch acetaminoph Yes Take by Uni vers en (TYLENOL 2-10 mouth. ity of ORAL) 15:18: [address] Branch acetaminoph Yes Take by Uni vers en (TYLENOL 2-10 mouth. ity of ORAL) 15:18: [address] Branch acetaminoph Yes Take by Uni vers en (TYLENOL 2-10 mouth. ity of ORAL) 15:18: [place] [address] Medical Branch acetaminoph Yes Take by Uni vers en (TYLENOL 2-10 mouth. ity of ORAL) 15:18: [address] Branch acetaminoph Yes Take by Uni vers en (TYLENOL 2-10 mouth. ity of ORAL) 15:18: [address] Branch acetaminoph Yes Take by Uni vers en (TYLENOL 2-10 mouth. ity of ORAL) 15:18: [address] Branch acetaminoph Yes Take by Uni vers en (TYLENOL 2-10 mouth. ity of ORAL) 15:18: [address] Branch acetaminoph Yes Take by Uni vers en (TYLENOL 2-10 mouth. ity of ORAL) 15:18: [address] Branch acetaminoph Yes Take by Uni vers en (TYLENOL 2-10 mouth. ity of ORAL) 15:18: [address] Branch acetaminoph Yes Take by Uni vers en (TYLENOL 2-10 mouth. ity of ORAL) 15:18: [address] Branch acetaminoph Yes Take by Uni vers en (TYLENOL 2-10 mouth. ity of ORAL) 15:18: [address] Branch acetaminoph Yes Take by Uni vers en (TYLENOL 2-10 mouth. ity of ORAL) 15:18: [address] Branch acetaminoph Yes Take by Uni vers en (TYLENOL 2-10 mouth. ity of ORAL) 15:18: [address] Branch acetaminoph 0 Yes Take by Uni vers en (TYLENOL 2-10 mouth. ity of ORAL) 15:18: [address] acetaminoph 0 Yes Take by Uni vers en (TYLENOL 2-10 mouth. ity of ORAL) 15:18: [address] acetaminoph Yes Take by Uni vers en (TYLENOL 2-10 mouth. ity of ORAL) 15:18: [address] Branch acetaminoph Yes Take by Uni vers en (TYLENOL 2-10 mouth. ity of ORAL) 15:18: [address] acetaminoph Yes Take by Uni vers en (TYLENOL 2-10 mouth. ity of ORAL) 15:18: [address] acetaminoph Yes Take by Uni vers en (TYLENOL 2-10 mouth. ity of ORAL) 15:18: [address] acetaminoph Yes Take by Uni vers en (TYLENOL 2-10 mouth. ity of ORAL) 15:18: [address] acetaminoph Yes Take by Uni vers en (TYLENOL 2-10 mouth. ity of ORAL) 15:18: [address] acetaminoph Yes Take by Uni vers en (TYLENOL 2-10 mouth. ity of ORAL) 15:18: [address] acetaminoph Yes Take by Uni vers en (TYLENOL 2-10 mouth. ity of ORAL) 15:18: [address] acetaminoph Yes Take by Uni vers en (TYLENOL 2-10 mouth. ity of ORAL) 15:18: [address] acetaminoph Yes Take by Uni vers en (TYLENOL 2-10 mouth. ity of ORAL) 15:18: [address] acetaminoph Yes Take by Uni vers en (TYLENOL 2-10 mouth. ity of ORAL) 15:18: [address] acetaminoph Yes Take by Uni vers en (TYLENOL 2-10 mouth. ity of ORAL) 15:18: [address] acetaminoph Yes Take by Uni vers en (TYLENOL 2-10 mouth. ity of ORAL) 15:18: [address] Branch acetaminoph 0 Yes Take by Uni vers en (TYLENOL 2-10 mouth. ity of ORAL) 15:18: [address] acetaminoph 0 Yes Take by Uni vers en (TYLENOL 2-10 mouth. ity of ORAL) 15:18: [address] acetaminoph 0 Yes Take by Uni vers en (TYLENOL 2-10 mouth. ity of ORAL) 15:18: [address] Branch acetaminoph 0 Yes Take by Uni vers en (TYLENOL 2-10 mouth. ity of ORAL) 15:18: [address] acetaminoph 0 Yes Take by Uni vers en (TYLENOL 2-10 mouth. ity of ORAL) 15:18: [address] acetaminoph Yes Take by Uni vers en (TYLENOL 2-10 mouth. ity of ORAL) 15:18: [address] acetaminoph Yes Take by Uni vers en (TYLENOL 2-10 mouth. ity of ORAL) 15:18: [address] acetaminoph Yes Take by Uni vers en (TYLENOL 2-10 mouth. ity of ORAL) 15:18: [address] acetaminoph Yes Take by Uni vers en (TYLENOL 2-10 mouth. ity of ORAL) 15:18: [address] acetaminoph Yes Take by Uni vers en (TYLENOL 2-10 mouth. ity of ORAL) 15:18: [address] acetaminoph Yes Take by Uni vers en (TYLENOL 2-10 mouth. ity of ORAL) 15:18: [address] acetaminoph Yes Take by Uni vers en (TYLENOL 2-10 mouth. ity of ORAL) 15:18: [address] acetaminoph 0 Yes Take by Uni vers en (TYLENOL 2-10 mouth. ity of ORAL) 15:18: [address] acetaminoph Yes Take by Uni vers en (TYLENOL 2-10 mouth. ity of ORAL) 15:18: [address] acetaminoph 0 Yes Take by Uni vers en (TYLENOL 2-10 mouth. ity of ORAL) 15:18: [address] acetaminoph 0 Yes Take by Uni vers en (TYLENOL 2-10 mouth. ity of ORAL) 15:18: [address] acetaminoph 0 Yes Take by Uni vers en (TYLENOL 2-10 mouth. ity of ORAL) 15:18: [address] acetaminoph 0 Yes Take by Uni vers en (TYLENOL 2-10 mouth. ity of ORAL) 15:18: [address] acetaminoph 0 Yes Take by Uni vers en (TYLENOL 2-10 mouth. ity of ORAL) 15:18: [address] acetaminoph 0 Yes Take by Uni vers en (TYLENOL 2-10 mouth. ity of ORAL) 15:18: [address] acetaminoph Yes Take by Uni vers en (TYLENOL 2-10 mouth. ity of ORAL) 15:18: [address] acetaminoph Yes Take by Uni vers en (TYLENOL 2-10 mouth. ity of ORAL) 15:18: [address] acetaminoph Yes Take by Uni vers en (TYLENOL 2-10 mouth. ity of ORAL) 15:18: [address] acetaminoph Yes Take by Uni vers en (TYLENOL 2-10 mouth. ity of ORAL) 15:18: [address] acetaminoph Yes Take by Uni vers en (TYLENOL 2-10 mouth. ity of ORAL) 15:18: [address] acetaminoph Yes Take by Uni vers en (TYLENOL 2-10 mouth. ity of ORAL) 15:18: [address] acetaminoph Yes Take by Uni vers en (TYLENOL 2-10 mouth. ity of ORAL) 15:18: [address] acetaminoph 0 Yes Take by Uni vers en (TYLENOL 2-10 mouth. ity of ORAL) 15:18: [address] acetaminoph 2021-0 Yes Take by Uni vers en (TYLENOL 2-10 mouth. ity of ORAL) 15:18: [address] acetaminoph 0 Yes Take by Uni vers en (TYLENOL 2-10 mouth. ity of ORAL) 15:18: [address] acetaminoph 0 Yes Take by Uni vers en (TYLENOL 2-10 mouth. ity of ORAL) 15:18: [address] acetaminoph 0 Yes Take by Uni vers en (TYLENOL 2-10 mouth. ity of ORAL) 15:18: [address] acetaminoph Yes Take by Uni vers en (TYLENOL 2-10 mouth. ity of ORAL) 15:18: [address] Branch acetaminoph Yes Take by Uni vers en (TYLENOL 2-10 mouth. ity of ORAL) 15:18: [address] acetaminoph Yes Take by Uni vers en (TYLENOL 2-10 mouth. ity of ORAL) 15:18: [address] acetaminoph Yes Take by Uni vers en (TYLENOL 2-10 mouth. ity of ORAL) 15:18: [address] acetaminoph Yes Take by Uni vers en (TYLENOL 2-10 mouth. ity of ORAL) 15:18: [address] acetaminoph Yes Take by Uni vers en (TYLENOL 2-10 mouth. ity of ORAL) 15:18: [address] acetaminoph Yes Take by Uni vers en (TYLENOL 2-10 mouth. ity of ORAL) 15:18: [address] acetaminoph Yes Take by Uni vers en (TYLENOL 2-10 mouth. ity of ORAL) 15:18: [address] acetaminoph Yes Take by Uni vers en (TYLENOL 2-10 mouth. ity of ORAL) 15:18: [address] acetaminoph Yes Take by Uni vers en (TYLENOL 2-10 mouth. ity of ORAL) 15:18: [address] acetaminoph Yes Take by Uni vers en (TYLENOL 2-10 mouth. ity of ORAL) 15:18: [address] acetaminoph 0 Yes Take by Uni vers en (TYLENOL 2-10 mouth. ity of ORAL) 15:18: [address] Branch acetaminoph Yes Take by Uni vers en (TYLENOL 2-10 mouth. ity of ORAL) 15:18: [address] Branch acetaminoph Yes Take by Uni vers en (TYLENOL 2-10 mouth. ity of ORAL) 15:18: [address] Branch acetaminoph Yes Take by Uni vers en (TYLENOL 2-10 mouth. ity of ORAL) 15:18: [address] Branch acetaminoph Yes Take by Uni vers en (TYLENOL 2-10 mouth. ity of ORAL) 15:18: [address] Branch acetaminoph Yes Take by Uni vers en (TYLENOL 2-10 mouth. ity of ORAL) 15:18: [address] Branch acetaminoph Yes Take by Uni vers en (TYLENOL 2-10 mouth. ity of ORAL) 15:18: [address] acetaminoph Yes Take by Uni vers en (TYLENOL 2-10 mouth. ity of ORAL) 15:18: [address] acetaminoph Yes Take by Uni vers en (TYLENOL 2-10 mouth. ity of ORAL) 15:18: [address] acetaminoph Yes Take by Uni vers en (TYLENOL 2-10 mouth. ity of ORAL) 15:18: [address] acetaminoph Yes Take by Uni vers en (TYLENOL 2-10 mouth. ity of ORAL) 15:18: [address] Branch acetaminoph Yes Take by Uni vers en (TYLENOL 2-10 mouth. ity of ORAL) 15:18: [address] Branch acetaminoph Yes Take by Uni vers en (TYLENOL 2-10 mouth. ity of ORAL) 15:18: [address] acetaminoph Yes Take by Uni vers en (TYLENOL 2-10 mouth. ity of ORAL) 15:18: [address] proMETHazin 2020-03 Yes Insert 1 Un [...] of taking reglan. ibuprofen 2020-0 2020- No [id number] 800mg Take 1 [facility] 800 mg 7-30 08-21 tablet by ity of tablet 00:00: 04:59 mouth [place] 00 :00 every 6 Medical (six) Branch hours as needed for Pain (scale 4-6) for up to 21 days. sulfamethox 2019- No [id number] 1{tbl} Take 1 [facility] azole-trime 10-23- tablet by it y of thoprim 00:00: 00:00 mouth 2 [place] (BACTRIM 00 :00 (two) Medical DS) 800-160 times Branch mg per daily for tablet 10 days. SERTraline 2020- No [id number] 50mg Take 1 [facility] 50 mg 09-26 tablet by ity of tablet 00:00: 00:00 mouth [place] 00 :00 daily. Medical Branch dextroamphe 2019- No [id number] 20mg Take 1 [facility] tamine-amph 6-20 10-30 tablet by it y of etamine 00:00: 00:00 mouth 3 [place] (ADDERALL) 00 :00 (three) Medica l 20 mg times Branch tablet daily. dextroamphe 2019- No [id number] Take 1 tab [facility] tamine-amph 5-24 10-30 in morning i ty of etamine 10 00:00: 00:00 x 3 days [place] mg tablet 00 :00 then Medical increase Branch to 1 tab twice daily x 7 days then , if needed take 2 tabs twice daily (otherwise continue 1 tab twice daily), further refills from psychiatry clonazePAM 2019- No [id number] .5mg Take 1 Univers (KLONOPIN) 08-12 tablet by ity of 0.5 mg 00:00: 00:00 mouth [place] tablet 00 :00 every 8 Medical (eight) Branch hours as needed (Anxiety). PANTOPRAZOL 2019- No [id number] TAKE 1 Univers E 40 mg EC 4-27 08- TABLET BY ity of tablet 00:00: 00:00 MOUTH [place] 00 :00 EVERY DAY Medical Branch [id number] 2020- No 1{dose} Take 1 U nivers [...] 5mg tablet as needed. levothyroxi 2019- No [id number] 112ug Take 1 Univers ne 3-09 12-15 tablet by ity of (SYNTHROID) 00:00: 00:00 mouth [place] 112 mcg 00 :00 every Medical tablet morning. Branch atorvastati 2019- No [id number] 40mg Take 1 Univers n 40 mg 1-29 10-19 tablet by ity of tablet 00:00: 00:00 mouth at [place] 00 :00 bedtime. Medical Branch traMADol 2019- No [id number] 50mg Take 1 U nivers (ULTRAM) 50 04-24- tablet by it y of mg tablet 00:00: 00:00 mouth [place] 00 :00 every 6 Medical (six) Branch hours as needed for Pain (scale 4-6) or Pain (scale 7-10). zonisamide 2019- No [id number] 100mg Take 1 [facility] 100 mg 1-24 08-10 capsule by ity of capsule 00:00: 00:00 mouth 2 [place] 00 :00 (two) Medical times Branch daily. butalbital- 2019- No [id number] 1{tbl} Take 1 [facility] acetaminoph 1-10 10-30 tablet by it y of en-caff 00:00: 00:00 mouth [place] 50-325-40 00 :00 every 6 Medical mg tablet (six) Branch hours as needed (Migraine Headaches) . clonazePAM 2019- No [id number] .5mg Take 1 Univers 0.5 mg 1-10 10-30 tablet by ity of tablet 00:00: 00:00 mouth 3 [place] 00 :00 (three) Medical times Branch daily. 2019- No [id number] 1{tbl} Take 1 [facility] vitamin 11-22- tablet by ity of w/FA tablet 00:00: 00:00 mouth [place] 00 :00 daily. Medical Branch Immunizations Ordered Filled Immunization Date Status Comments [facility] e Immunization Name Name Influenza Virus [...] Universit y of Vaccine [facility] IM, 00:00:00 [place] [facility] Preserv and ABX Branch Free 6 MO-64 YRS Influenza Virus 2022-01-27 Completed Universit y of Vaccine [facility] IM, 00:00:00 [place] Me dical Preserv and ABX Branch Free 6 MO-64 YRS Influenza Virus 2022-01-27 Completed Universit y of Vaccine Quad IM, 00:00:00 [place] Me dical Preserv and ABX Branch Free 6 MO-64 YRS Influenza Virus 2022-01-27 Completed Universit y of Vaccine Quad IM, 00:00:00 [place] Me dical Preserv and ABX Branch Free 6 MO-64 YRS Influenza Virus 2022-01-27 Completed Universit y of Vaccine Quad IM, 00:00:00 [place] Me dical Preserv and ABX Branch Free 6 MO-64 YRS Influenza Virus 2022-01-27 Completed Universit y of Vaccine Quad IM, 00:00:00 [place] Me dical Preserv and ABX Branch Free 6 MO-64 YRS Influenza Virus 2022-01-27 Completed Universit y of Vaccine Quad IM, 00:00:00 [place] Me dical Preserv and ABX Branch Free 6 MO-64 YRS Influenza Virus 2022-01-27 Completed Universit y of Vaccine Quad IM, 00:00:00 [place] Me dical Preserv and ABX Branch Free 6 MO-64 YRS Influenza Virus 2022-01-27 Completed Universit y of Vaccine Quad IM, 00:00:00 [place] Me dical Preserv and ABX Branch Free [...] Universit y of Vaccine Quad IM, 00:00:00 [place] Me dical Preserv and ABX Branch Free [...] Universit y of Vaccine Quad IM, 00:00:00 [place] Me dical Preserv and ABX Branch Free 6 MO-64 YRS Influenza Virus 2022-01-27 Completed Universit y of Vaccine Quad IM, 00:00:00 [place] Me dical Preserv and ABX Branch Free 6 MO-64 YRS Influenza Virus 2022-01-27 Completed Universit y of Vaccine Quad IM, 00:00:00 [place] Me dical Preserv and ABX Branch Free 6 MO-64 YRS Influenza Virus 2022-01-27 Completed Universit y of Vaccine Quad IM, 00:00:00 [place] [facility] and ABX Branch Free 6 MO-64 YRS Influenza Virus 2021-02-07 Completed [facility], 00:00:00 [place] [facility] ABX Branch Free 6 MO-64 YRS TDAP 2021-02-07 Completed [facility] 00:00:00 [facility] Influenza Virus 2021-02-07 Completed [facility], 00:00:00 [facility] dical Preserv and ABX Branch Free 6 MO-64 YRS TDAP 2021-02-07 Completed [facility] 00:00:00 [facility] Influenza Virus 2021-02-07 Completed [facility], 00:00:00 [facility] dical Preserv and ABX Branch Free 6 MO-64 YRS TDAP 2021-02-07 Completed [facility] 00:00:00 [facility] Influenza Virus 2021-02-07 Completed [facility], 00:00:00 [place] [facility] Preserv and ABX Branch Free 6 MO-64 YRS TDAP 2021-02-07 Completed [facility] 00:00:00 [facility] Influenza Virus 2021-02-07 Completed [facility], 00:00:00 [facility] dical Preserv and ABX Branch Free 6 MO-64 YRS TDAP 2021-02-07 Completed [facility] 00:00:00 [facility] Influenza Virus 2021-02-07 Completed [facility], 00:00:00 [place] [facility] Preserv and ABX Branch Free 6 MO-64 YRS TDAP 2021-02-07 Completed [facility] 00[facility]00:00 [facility] Influenza Virus 2021-02-07 Completed [facility], 00:00:00 [place] [facility] Preserv and ABX Branch Free 6 MO-64 YRS TDAP 2021-02-07 Completed [facility] 00[facility]00:00 [facility] Influenza Virus 2021-02-07 Completed [facility], 00:00:00 [place] [facility] Preserv and ABX Branch Free 6 MO-64 YRS TDAP 2021-02-07 Completed [facility] 00[facility]00:00 [facility] Influenza Virus 2021-02-07 Completed [facility], 00:00:00 [place] [facility] Preserv and ABX Branch Free 6 MO-64 YRS TDAP 2021-02-07 Completed [facility] 00:00:00 [facility] Influenza Virus 2021-02-07 Completed [facility], 00:00:00 [place] [facility] Preserv and ABX Branch Free 6 MO-64 YRS TDAP 2021-02-07 Completed [facility] 00:00:00 [facility] Influenza Virus 2021-02-07 Completed [facility], 00:00:00 [facility] dical Preserv and ABX Branch Free 6 MO-64 YRS TDAP 2021-02-07 Completed [facility] 00:00:00 [facility] Influenza Virus 2021-02-07 Completed [facility], 00:00:00 [facility] dical Preserv and ABX Branch Free 6 MO-64 YRS TDAP 2021-02-07 Completed [facility] 00:00:00 [facility] Influenza Virus 2021-02-07 Completed [facility], 00:00:00 [facility] dical Preserv and ABX Branch Free 6 MO-64 YRS TDAP 2021-02-07 Completed [facility] 00:00:00 [facility] Influenza Virus 2021-02-07 Completed [facility], 00:00:00 [place] [facility] Preserv and ABX Branch Free 6 MO-64 YRS TDAP 2021-02-07 Completed [facility] 00:00:00 [facility] Influenza Virus 2021-02-07 Completed [facility], 00:00:00 [place] [facility] Preserv and ABX Branch Free 6 MO-64 YRS TDAP 2021-02-07 Completed [facility] 00:00:00 [facility] Influenza Virus 2021-02-07 Completed [facility], 00:00:00 [place] [facility] Preserv and ABX Branch Free 6 MO-64 YRS TDAP 2021-02-07 Completed [facility] 00:00:00 [facility] Influenza Virus 2021-02-07 Completed [facility], 00:00:00 [place] [facility] Preserv and ABX Branch Free 6 MO-64 YRS TDAP 2021-02-07 Completed [facility] 00:00:00 [facility] Influenza Virus 2021-02-07 Completed [facility], 00:00:00 [place] [facility] Preserv and ABX Branch Free 6 MO-64 YRS TDAP 2021-02-07 Completed [facility] 00:00:00 [facility] Influenza Virus 2021-02-07 Completed [facility], 00:00:00 [facility] dical Preserv and ABX Branch Free 6 MO-64 YRS TDAP 2021-02-07 Completed [facility] 00:00:00 [facility] Influenza Virus 2021-02-07 Completed [facility], 00:00:00 [facility] dical Preserv and ABX Branch Free 6 MO-64 YRS TDAP 2021-02-07 Completed [facility] 00:00:00 [facility] Influenza Virus 2021-02-07 Completed [facility], 00:00:00 [facility] dical Preserv and ABX Branch Free 6 MO-64 YRS TDAP 2021-02-07 Completed [facility] 00:00:00 [facility] Influenza Virus 2021-02-07 Completed [facility], 00:00:00 [place] [facility] Preserv and ABX Branch Free 6 MO-64 YRS TDAP 2021-02-07 Completed [facility] 00:00:00 [facility] Influenza Virus 2021-02-07 Completed [facility], 00:00:00 [place] [facility] Preserv and ABX Branch Free 6 MO-64 YRS TDAP 2021-02-07 Completed [facility] 00:00:00 [facility] Influenza Virus 2021-02-07 Completed [facility], 00:00:00 [place] [facility] Preserv and ABX Branch Free 6 MO-64 YRS TDAP 2021-02-07 Completed [facility] 00:00:00 [facility] Influenza Virus 2021-02-07 Completed [facility], 00:00:00 [place] [facility] Preserv and ABX Branch Free 6 MO-64 YRS TDAP 2021-02-07 Completed [facility] 00:00:00 [facility] Influenza Virus 2021-02-07 Completed [facility], 00:00:00 [place] [facility] Preserv and ABX Branch Free 6 MO-64 YRS TDAP 2021-02-07 Completed [facility] 00:00:00 [facility] Influenza Virus 2021-02-07 Completed [facility], 00:00:00 [place] [facility] Preserv and ABX Branch Free 6 MO-64 YRS TDAP 2021-02-07 Completed [facility] 00:00:00 [facility] Influenza Virus 2021-02-07 Completed [facility], 00:00:00 [place] [facility] Preserv and ABX Branch Free 6 MO-64 YRS TDAP 2021-02-07 Completed [facility] 00:00:00 [facility] Influenza Virus 2021-02-07 Completed [facility], 00:00:00 [place] [facility] Preserv and ABX Branch Free 6 MO-64 YRS TDAP 2021-02-07 Completed [facility] 00:00:00 [facility] Influenza Virus 2021-02-07 Completed [facility], 00:00:00 [place] [facility] Preserv and ABX Branch Free 6 MO-64 YRS TDAP 2021-02-07 Completed [facility] 00:00:00 [facility] Influenza Virus 2021-02-07 Completed [facility], 00:00:00 [place] [facility] Preserv and ABX Branch Free 6 MO-64 YRS TDAP 2021-02-07 Completed [facility] 00:00:00 [facility] Influenza Virus 2021-02-07 Completed [facility], 00:00:00 [place] [facility] Preserv and ABX Branch Free 6 MO-64 YRS TDAP 2021-02-07 Completed [facility] 00:00:00 [facility] Influenza Virus 2021-02-07 Completed [facility], 00:00:00 [place] [facility] Preserv and ABX Branch Free 6 MO-64 YRS TDAP 2021-02-07 Completed [facility] 00:00:00 [facility] Influenza Virus 2021-02-07 Completed [facility], 00:00:00 [place] [facility] Preserv and ABX Branch Free 6 MO-64 YRS TDAP 2021-02-07 Completed [facility] 00:00:00 [facility] Influenza Virus 2021-02-07 Completed [facility], 00:00:00 [place] [facility] Preserv and ABX Branch Free 6 MO-64 YRS TDAP 2021-02-07 Completed [facility] 00:00:00 [facility] Influenza Virus 2021-02-07 Completed [facility], 00:00:00 [place] [facility] Preserv and ABX Branch Free 6 MO-64 YRS TDAP 2021-02-07 Completed [facility] 00:00:00 [facility] Influenza Virus 2021-02-07 Completed [facility], 00:00:00 [place] [facility] Preserv and ABX Branch Free 6 MO-64 YRS TDAP 2021-02-07 Completed [facility] 00:00:00 [facility] Influenza Virus 2021-02-07 Completed [facility], 00:00:00 [place] [facility] Preserv and ABX Branch Free 6 MO-64 YRS TDAP 2021-02-07 Completed [facility] 00:00:00 [facility] Influenza Virus 2021-02-07 Completed [facility], 00:00:00 [place] [facility] Preserv and ABX Branch Free 6 MO-64 YRS TDAP 2021-02-07 Completed [facility] 00:00:00 [facility] Influenza Virus 2021-02-07 Completed [facility], 00:00:00 [place] [facility] Preserv and ABX Branch Free 6 MO-64 YRS TDAP 2021-02-07 Completed [facility] 00:00:00 [facility] Influenza Virus 2021-02-07 Completed [facility], 00:00:00 [place] [facility] Preserv and ABX Branch Free 6 MO-64 YRS TDAP 2021-02-07 Completed [facility] 00:00:00 [facility] Influenza Virus 2021-02-07 Completed [facility], 00:00:00 [place] [facility] Preserv and ABX Branch Free 6 MO-64 YRS TDAP 2021-02-07 Completed [facility] 00:00:00 [facility] Influenza Virus 2021-02-07 Completed [facility], 00:00:00 [place] [facility] Preserv and ABX Branch Free 6 MO-64 YRS TDAP 2021-02-07 Completed [facility] 00:00:00 [facility] Influenza Virus 2021-02-07 Completed [facility], 00:00:00 [place] [facility] Preserv and ABX Branch Free 6 MO-64 YRS TDAP 2021-02-07 Completed [facility] 00:00:00 [facility] Influenza Virus 2021-02-07 Completed [facility], 00:00:00 [place] [facility] Preserv and ABX Branch Free 6 MO-64 YRS TDAP 2021-02-07 Completed [facility] 00:00:00 [facility] Influenza Virus 2021-02-07 Completed [facility], 00:00:00 [place] [facility] Preserv and ABX Branch Free 6 MO-64 YRS TDAP 2021-02-07 Completed [facility] 00:00:00 [facility] Influenza Virus 2021-02-07 Completed [facility], 00:00:00 [place] [facility] Preserv and ABX Branch Free 6 MO-64 YRS TDAP 2021-02-07 Completed [facility] 00:00:00 [facility] Influenza Virus 2021-02-07 Completed [facility], 00:00:00 [place] [facility] Preserv and ABX Branch Free 6 MO-64 YRS TDAP 2021-02-07 Completed [facility] 00:00:00 [facility] Influenza Virus 2021-02-07 Completed [facility], 00:00:00 [place] [facility] Preserv and ABX Branch Free 6 MO-64 YRS TDAP 2021-02-07 Completed [facility] 00:00:00 [facility] Influenza Virus 2021-02-07 Completed [facility], 00:00:00 [place] [facility] Preserv and ABX Branch Free 6 MO-64 YRS TDAP 2021-02-07 Completed [facility] 00:00:00 [facility] Influenza Virus 2021-02-07 Completed [facility], 00:00:00 [place] [facility] Preserv and ABX Branch Free 6 MO-64 YRS TDAP 2021-02-07 Completed [facility] 00:00:00 [facility] Influenza Virus 2021-02-07 Completed [facility], 00:00:00 [place] [facility] Preserv and ABX Branch Free 6 MO-64 YRS TDAP 2021-02-07 Completed [facility] 00:00:00 [facility] Influenza Virus 2021-02-07 Completed [facility], 00:00:00 [place] [facility] Preserv and ABX Branch Free 6 MO-64 YRS TDAP 2021-02-07 Completed [facility] 00:00:00 [facility] Influenza Virus 2021-02-07 Completed [facility], 00:00:00 [place] [facility] Preserv and ABX Branch Free 6 MO-64 YRS TDAP 2021-02-07 Completed [facility] 00:00:00 [facility] Influenza Virus 2021-02-07 Completed [facility], 00:00:00 [facility] dical Preserv and ABX Branch Free 6 MO-64 YRS TDAP 2021-02-07 Completed [facility] 00:00:00 [facility] Influenza Virus 2021-02-07 Completed [facility], 00:00:00 [place] [facility] Preserv and ABX Branch Free 6 MO-64 YRS TDAP 2021-02-07 Completed [facility] 00:00:00 [facility] Influenza Virus 2021-02-07 Completed [facility], 00:00:00 [facility] dical Preserv and ABX Branch Free 6 MO-64 YRS TDAP 2021-02-07 Completed [facility] 00:00:00 [facility] Influenza Virus 2021-02-07 Completed [facility], 00:00:00 [place] [facility] Preserv and ABX Branch Free 6 MO-64 YRS TDAP 2021-02-07 Completed [facility] 00:00:00 [facility] Influenza Virus 2021-02-07 Completed [facility], 00:00:00 [place] [facility] Preserv and ABX Branch Free 6 MO-64 YRS TDAP 2021-02-07 Completed [facility] 00:00:00 [facility] Influenza Virus 2021-02-07 Completed [facility], 00:00:00 [place] [facility] Preserv and ABX Branch Free 6 MO-64 YRS TDAP 2021-02-07 Completed [facility] 00:00:00 [facility] Influenza Virus 2021-02-07 Completed [facility], 00:00:00 [place] [facility] Preserv and ABX Branch Free 6 MO-64 YRS TDAP 2021-02-07 Completed [facility] 00:00:00 [facility] Influenza Virus 2021-02-07 Completed [facility], 00:00:00 [place] [facility] Preserv and ABX Branch Free 6 MO-64 YRS TDAP 2021-02-07 Completed [facility] 00:00:00 [facility] Influenza Virus 2021-02-07 Completed [facility], 00:00:00 [place] [facility] Preserv and ABX Branch Free 6 MO-64 YRS TDAP 2021-02-07 Completed [facility] 00:00:00 [facility] Influenza Virus 2021-02-07 Completed [facility], 00:00:00 [place] [facility] Preserv and ABX Branch Free 6 MO-64 YRS TDAP 2021-02-07 Completed [facility] 00:00:00 [facility] Influenza Virus 2021-02-07 Completed [facility], 00:00:00 [place] [facility] Preserv and ABX Branch Free 6 MO-64 YRS TDAP 2021-02-07 Completed [facility] 00:00:00 [facility] Influenza Virus 2021-02-07 Completed [facility], 00:00:00 [place] [facility] Preserv and ABX Branch Free 6 MO-64 YRS TDAP 2021-02-07 Completed [facility] 00:00:00 [facility] Influenza Virus 2021-02-07 Completed [facility], 00:00:00 [place] [facility] Preserv and ABX Branch Free 6 MO-64 YRS TDAP 2021-02-07 Completed [facility] 00:00:00 [facility] Influenza Virus 2021-02-07 Completed [facility], 00:00:00 [place] [facility] Preserv and ABX Branch Free 6 MO-64 YRS TDAP 2021-02-07 Completed [facility] 00:00:00 [facility] Influenza Virus 2021-02-07 Completed [facility], 00:00:00 [place] [facility] Preserv and ABX Branch Free 6 MO-64 YRS TDAP 2021-02-07 Completed [facility] 00:00:00 [facility] Influenza Virus 2021-02-07 Completed [facility], 00:00:00 [place] [facility] Preserv and ABX Branch Free 6 MO-64 YRS TDAP 2021-02-07 Completed [facility] 00:00:00 [facility] Influenza Virus 2021-02-07 Completed [facility], 00:00:00 [place] [facility] Preserv and ABX Branch Free 6 MO-64 YRS TDAP 2021-02-07 Completed [facility] 00:00:00 [facility] Influenza Virus 2021-02-07 Completed [facility], 00:00:00 [place] [facility] Preserv and ABX Branch Free 6 MO-64 YRS TDAP 2021-02-07 Completed [facility] 00:00:00 [facility] Influenza Virus 2021-02-07 Completed [facility], 00:00:00 [place] [facility] Preserv and ABX Branch Free 6 MO-64 YRS TDAP 2021-02-07 Completed [facility] 00:00:00 [facility] Influenza Virus 2021-02-07 Completed [facility], 00:00:00 [place] [facility] Preserv and ABX Branch Free 6 MO-64 YRS TDAP 2021-02-07 Completed [facility] 00:00:00 [facility] Influenza Virus 2021-02-07 Completed [facility], 00:00:00 [place] [facility] Preserv and ABX Branch Free 6 MO-64 YRS TDAP 2021-02-07 Completed [facility] 00:00:00 [facility] Influenza Virus 2021-02-07 Completed [facility], 00:00:00 [place] [facility] Preserv and ABX Branch Free 6 MO-64 YRS TDAP 2021-02-07 Completed [facility] 00:00:00 [facility] Influenza Virus 2021-02-07 Completed [facility], 00:00:00 [place] [facility] Preserv and ABX Branch Free 6 MO-64 YRS TDAP 2021-02-07 Completed [facility] 00:00:00 [facility] Influenza Virus 2021-02-07 Completed [facility], 00:00:00 [place] [facility] Preserv and ABX Branch Free 6 MO-64 YRS TDAP 2021-02-07 Completed [facility] 00:00:00 [facility] Influenza Virus 2021-02-07 Completed [facility], 00:00:00 [place] [facility] Preserv and ABX Branch Free 6 MO-64 YRS TDAP 2021-02-07 Completed [facility] 00:00:00 [facility] Influenza Virus 2021-02-07 Completed [facility], 00:00:00 [place] [facility] Preserv and ABX Branch Free 6 MO-64 YRS TDAP 2021-02-07 Completed [facility] 00:00:00 [facility] Influenza Virus 2021-02-07 Completed [facility], 00:00:00 [place] [facility] Preserv and ABX Branch Free 6 MO-64 YRS TDAP 2021-02-07 Completed [facility] 00:00:00 [facility] Influenza Virus 2021-02-07 Completed [facility], 00:00:00 [place] [facility] Preserv and ABX Branch Free 6 MO-64 YRS TDAP 2021-02-07 Completed [facility] 00:00:00 [facility] Influenza Virus 2021-02-07 Completed [facility], 00:00:00 [place] [facility] Preserv and ABX Branch Free 6 MO-64 YRS TDAP 2021-02-07 Completed [facility] 00:00:00 [facility] Influenza Virus 2021-02-07 Completed [facility], 00:00:00 [place] [facility] Preserv and ABX Branch Free 6 MO-64 YRS TDAP 2021-02-07 Completed [facility] 00:00:00 [facility] Influenza Virus 2021-02-07 Completed [facility], 00:00:00 [place] [facility] Preserv and ABX Branch Free 6 MO-64 YRS TDAP 2021-02-07 Completed [facility] 00:00:00 [facility] Influenza Virus 2021-02-07 Completed [facility], 00:00:00 [place] [facility] Preserv and ABX Branch Free 6 MO-64 YRS TDAP 2021-02-07 Completed [facility] 00:00:00 [facility] Influenza Virus 2021-02-07 Completed [facility], 00:00:00 [place] [facility] Preserv and ABX Branch Free 6 MO-64 YRS TDAP 2021-02-07 Completed [facility] 00:00:00 [facility] Influenza Virus 2021-02-07 Completed [facility], 00:00:00 [facility] dical Preserv and ABX Branch Free 6 MO-64 YRS TDAP 2021-02-07 Completed [facility] 00:00:00 [facility] Influenza Virus 2021-02-07 Completed [facility], 00:00:00 [facility] dical Preserv and ABX Branch Free 6 MO-64 YRS TDAP 2021-02-07 Completed [facility] 00:00:00 [facility] Influenza Virus 2021-02-07 Completed [facility], 00:00:00 [facility] dical Preserv and ABX Branch Free 6 MO-64 YRS TDAP 2021-02-07 Completed [facility] 00:00:00 [facility] Influenza Virus 2021-02-07 Completed [facility], 00:00:00 [facility] dical Preserv and ABX Branch Free 6 MO-64 YRS TDAP 2021-02-07 Completed [facility] 00:00:00 [facility] Influenza Virus 2021-02-07 Completed [facility], 00:00:00 [facility] dical Preserv and ABX Branch Free 6 MO-64 YRS TDAP 2021-02-07 Completed [facility] 00:00:00 [facility] Influenza Virus 2021-02-07 Completed [facility], 00:00:00 [facility] dical Preserv and ABX Branch Free 6 MO-64 YRS TDAP 2021-02-07 Completed [facility] 00:00:00 [facility] Influenza Virus 2021-02-07 Completed [facility], 00:00:00 [place] [facility] Preserv and ABX Branch Free 6 MO-64 YRS TDAP 2021-02-07 Completed [facility] 00:00:00 [facility] Influenza Virus 2021-02-07 Completed [facility], 00:00:00 [place] [facility] Preserv and ABX Branch Free 6 MO-64 YRS TDAP 2021-02-07 Completed [facility] 00:00:00 [facility] Influenza Virus 2021-02-07 Completed [facility], 00:00:00 [place] [facility] Preserv and ABX Branch Free 6 MO-64 YRS TDAP 2021-02-07 Completed [facility] 00:00:00 [facility] Influenza Virus 2021-02-07 Completed [facility], 00:00:00 [facility] dical Preserv and ABX Branch Free 6 MO-64 YRS TDAP 2021-02-07 Completed [facility] 00:00:00 [facility] Influenza Virus 2021-02-07 Completed [facility], 00:00:00 [facility] dical Preserv and ABX Branch Free 6 MO-64 YRS TDAP 2021-02-07 Completed [facility] 00:00:00 [facility] Influenza Virus 2021-02-07 Completed [facility], 00:00:00 [facility] dical Preserv and ABX Branch Free 6 MO-64 YRS TDAP 2021-02-07 Completed [facility] 00:00:00 [facility] Influenza Virus 2021-02-07 Completed [facility], 00:00:00 [facility] dical Preserv and ABX Branch Free 6 MO-64 YRS TDAP 2021-02-07 Completed [facility] 00:00:00 [facility] Influenza Virus 2021-02-07 Completed [facility], 00:00:00 [facility] dical Preserv and ABX Branch Free 6 MO-64 YRS TDAP 2021-02-07 Completed [facility] 00:00:00 [facility] Influenza Virus 2021-02-07 Completed [facility], 00:00:00 [facility] dical Preserv and ABX Branch Free 6 MO-64 YRS TDAP 2021-02-07 Completed [facility] 00:00:00 [facility] Influenza Virus 2021-02-07 Completed [facility], 00:00:00 [place] [facility] Preserv and ABX Branch Free 6 MO-64 YRS TDAP 2021-02-07 Completed [facility] 00:00:00 [facility] Influenza Virus 2021-02-07 Completed [facility], 00:00:00 [place] [facility] Preserv and ABX Branch Free 6 MO-64 YRS TDAP 2021-02-07 Completed [facility] 00:00:00 [facility] Influenza Virus 2021-02-07 Completed [facility], 00:00:00 [place] [facility] Preserv and ABX Branch Free 6 MO-64 YRS TDAP 2021-02-07 Completed [facility] 00:00:00 [facility] Influenza Virus 2021-02-07 Completed [facility], 00:00:00 [place] [facility] Preserv and ABX Branch Free 6 MO-64 YRS TDAP 2021-02-07 Completed [facility] 00:00:00 [facility] Influenza Virus 2021-02-07 Completed [facility], 00:00:00 [place] [facility] Preserv and ABX Branch Free 6 MO-64 YRS TDAP 2021-02-07 Completed [facility] 00:00:00 [facility] Influenza Virus 2021-02-07 Completed [facility], 00:00:00 [place] [facility] ABX [facility] Free 6 MO-64 YRS TDAP 2021-02-07 Completed [facility] of 00:00:00 [facility] Influenza Virus 2021-02-07 Completed [facility], 00:00:00 [place] [facility] ABX [facility] Free 6 MO-64 YRS TDAP 2021-02-07 Completed [facility] of 00:00:00 [facility] Influenza Virus 2021-02-07 Completed [facility], 00:00:00 [place] [facility] ABX [facility] Free 6 MO-64 YRS TDAP 2021-02-07 Completed [facility] of 00:00:00 [facility] Influenza Virus 2021-02-07 Completed [facility], 00:00:00 [place] [facility] Preserv [facility] ABX [facility] Free 6 MO-64 YRS TDAP 2021-02-07 Completed [facility] of 00:00:00 [facility] Influenza Virus 2021-02-07 Completed [facility], 00:00:00 [place] [facility] Preserv [facility] ABX [facility] Free 6 MO-64 YRS TDAP 2021-02-07 Completed [facility] of 00:00:00 [facility] Influenza Virus 2021-02-07 Completed [facility], 00:00:00 [place] [facility] Preserv [facility] ABX [facility] Free 6 MO-64 YRS TDAP 2021-02-07 Completed [facility] of 00:00:00 [facility] Influenza Virus 2021-02-07 Completed [facility], 00:00:00 [place] [facility] Preserv [facility] ABX [facility] Free 6 MO-64 YRS TDAP 2021-02-07 Completed [facility] of 00:00:00 [facility] Influenza Virus 2021-02-07 Completed [facility], 00:00:00 [place] [facility] Preserv and ABX [facility] Free 6 MO-64 YRS TDAP 2021-02-07 Completed [facility] of 00:00:00 [facility] Influenza Virus 2020-01-25 Completed [facility] y of [facility] .5 mL 00:00:00 [facility] 6+ MO Branch Influenza Virus [...] y of [facility] .5 mL 00:00:00 [facility] 6+ MO Branch Influenza Virus [...] y of [facility] .5 mL 00:00:00 [facility] 6+ MO Branch Influenza Virus [...] y of [facility] .5 mL 00:00:00 [facility] 6+ MO [facility] Influenza Virus 2018-12-23 Completed [facility] .5 mL 00:00:00 [facility] 6+ MO [facility] Influenza Virus 2018-12-23 Completed [facility]it y of [facility] .5 mL 00:00:00 [facility] 6+ MO Branch Influenza Virus 2018-12-23 Completed [facility] y of [facility] .5 mL 00:00:00 [facility] 6+ MO Branch Influenza Virus 2018-12-23 Completed [facility] .5 mL 00:00:00 [facility] 6+ MO Branch Influenza Virus [...] y of [facility] .5 mL 00:00:00 [facility] 6+ MO [facility] Influenza Virus 2018-12-23 Completed [facility] .5 mL 00:00:00 [facility] 6+ MO [facility] Influenza Virus 2018-12-23 Completed [facility] .5 mL 00:00:00 [facility] 6+ MO [facility] Influenza Virus 2018-12-23 Completed [facility] .5 mL 00:00:00 [facility] 6+ MO [facility] Influenza Virus 2018-12-23 Completed [facility] .5 mL 00:00:00 [facility] 6+ MO Branch Influenza Virus 2018-12-23 Completed [facility] .5 mL 00:00:00 [facility] 6+ MO Branch Influenza Virus [...] y of [facility] .5 mL 00:00:00 [facility] 6+ MO [facility] Influenza Virus 2018-12-23 Completed [facility] .5 mL 00:00:00 [facility] 6+ MO [facility] Influenza Virus 2018-12-23 Completed [facility]it y of [facility] .5 mL 00:00:00 [facility] 6+ MO Branch Influenza Virus [...] y of [facility] Quad .5 mL 00:00:00 [facility] 6+ MO Branch Influenza Virus 2018-12-23 Completed [facility] y of [facility] .5 mL 00:00:00 [facility] 6+ MO Branch Influenza Virus 2018-12-23 Completed [facility] .5 mL 00:00:00 [facility] 6+ MO Branch Influenza Virus 2018-12-23 Completed [facility] of [facility] .5 mL 00:00:00 [facility] 6+ MO Branch Influenza Virus 2018-12-23 Completed [facility] .5 mL 00:00:00 [facility] 6+ MO Branch Influenza Virus 2018-12-23 Completed [facility] .5 mL 00:00:00 [facility] 6+ MO Branch Influenza Virus 2018-12-23 Completed [facility]it y of [facility] .5 mL 00:00:00 [facility] 6+ MO [facility] Influenza Virus 2018-12-23 Completed [facility] .5 mL 00:00:00 [facility] 6+ MO [facility] Influenza Virus 2018-12-23 Completed [facility] .5 mL 00:00:00 [facility] 6+ MO Branch Influenza Virus 2018-12-23 Completed [facility] .5 mL 00:00:00 [facility] 6+ MO [facility] Influenza Virus 2018-12-23 Completed [facility] .5 mL 00:00:00 [facility] 6+ MO Branch Influenza Virus 2018-12-23 Completed [facility] .5 mL 00:00:00 [facility] 6+ MO Branch Influenza Virus 2018-12-23 [...] y of [facility] .5 mL 00:00:00 [facility] 6+ MO Branch Influenza Virus [...] y of [facility] .5 mL 00:00:00 [facility] 6+ MO Branch Influenza Virus 2018-12-23 [...] y of [facility] .5 mL 00:00:00 [facility] 6+ MO Branch Influenza Virus 2018-12-23 Completed [facility] .5 mL 00:00:00 [facility] 6+ MO [facility] Influenza Virus 2018-12-23 Completed [facility] of [facility] .5 mL 00:00:00 [facility] 6+ MO Branch Influenza Virus 2018-12-23 Completed [facility] of [facility] .5 mL 00:00:00 [facility] 6+ MO Branch Influenza Virus 2018-12-23 Completed [facility] of [facility] .5 mL 00:00:00 [facility] 6+ MO Branch Influenza Virus 2018-12-23 Completed [facility] of [facility] .5 mL 00:00:00 [facility] 6+ MO Branch Influenza Virus 2018-12-23 Completed [facility] of [facility] .5 mL 00:00:00 [facility] 6+ MO Branch Influenza Virus 2018-12-23 Completed [facility] of [facility] .5 mL 00:00:00 [facility] 6+ MO Branch Influenza Virus 2018-12-23 Completed [facility] .5 mL 00:00:00 [facility] 6+ MO Branch Influenza Virus 2018-12-23 Completed [facility] .5 mL 00:00:00 [facility] 6+ MO Branch Influenza Virus 2018-12-23 Completed [facility] .5 mL 00:00:00 [facility] 6+ MO Branch Influenza Virus 2018-12-23 Completed [facility] of [facility] .5 mL 00:00:00 [facility] 6+ MO Branch Influenza Virus 2018-12-23 Completed [facility] of [facility] .5 mL 00:00:00 [facility] 6+ MO Branch Influenza Virus 2018-12-23 Completed [facility] .5 mL 00:00:00 [facility] 6+ MO Branch Influenza Virus 2018-12-23 Completed [facility] .5 mL 00:00:00 [facility] 6+ MO [facility] Influenza Virus 2018-12-23 Completed [facility] .5 mL 00:00:00 [facility] 6+ MO Branch Influenza Virus [...] y of [facility] .5 mL 00:00:00 [facility] 6+ MO [facility] Influenza Virus 2018-12-23 Completed [facility] .5 mL 00:00:00 [facility] 6+ MO Branch Influenza Virus 2018-12-23 Completed [facility] .5 mL 00:00:00 [facility] 6+ MO Branch Influenza Virus 2018-12-23 Completed [facility] .5 mL 00:00:00 [facility] 6+ MO Branch Influenza Virus 2018-12-23 Completed [facility] .5 mL 00:00:00 [facility] 6+ MO Branch Influenza Virus 2018-12-23 Completed [facility] .5 mL 00:00:00 [facility] 6+ MO Branch Influenza Virus 2018-12-23 Completed [facility] .5 mL 00:00:00 [facility] 6+ MO Branch Influenza Virus 2018-12-23 Completed [facility] of [facility] .5 mL 00:00:00 [facility] 6+ MO Branch Influenza Virus 2018-12-23 Completed [facility] .5 mL 00:00:00 [facility] 6+ MO Branch Influenza Virus 2018-12-23 Completed [facility] y of [facility] .5 mL 00:00:00 [facility] 6+ MO Branch TDAP (ADACEL) 2018-09-14 Completed University of VACCINE 00:00:00 [facility] TDAP (ADACEL) 2018-09-14 Completed University of VACCINE 00:00:00 [facility] TDAP (ADACEL) 2018-09-14 Completed University of VACCINE 00:00:00 [facility] TDAP (ADACEL) 2018-09-14 Completed University of VACCINE 00:00:00 [facility] TDAP (ADACEL) 2018-09-14 Completed University of VACCINE 00:00:00 [facility] TDAP (ADACEL) 2018-09-14 Completed University of VACCINE 00:00:00 [facility] TDAP (ADACEL) 2018-09-14 Completed University of VACCINE 00:00:00 [facility] TDAP (ADACEL) 2018-09-14 Completed University of VACCINE 00:00:00 [facility] TDAP (ADACEL) 2018-09-14 Completed University of VACCINE 00:00:00 [facility] TDAP (ADACEL) 2018-09-14 Completed University of VACCINE 00:00:00 [facility] TDAP (ADACEL) 2018-09-14 Completed University of VACCINE 00:00:00 [facility] TDAP (ADACEL) 2018-09-14 Completed University of VACCINE 00:00:00 [facility] TDAP (ADACEL) 2018-09-14 Completed University of VACCINE 00:00:00 [facility] TDAP (ADACEL) 2018-09-14 Completed University of VACCINE 00:00:00 [facility] TDAP (ADACEL) 2018-09-14 Completed University of VACCINE 00:00:00 [facility] TDAP (ADACEL) 2018-09-14 Completed University of VACCINE 00:00:00 [facility] TDAP (ADACEL) 2018-09-14 Completed University of VACCINE 00:00:00 [facility] TDAP (ADACEL) 2018-09-14 Completed University of VACCINE 00:00:00 [facility] TDAP (ADACEL) 2018-09-14 Completed University of VACCINE 00:00:00 [facility] TDAP (ADACEL) 2018-09-14 Completed University of VACCINE 00:00:00 [facility] TDAP (ADACEL) 2018-09-14 Completed University of VACCINE 00:00:00 [facility] TDAP (ADACEL) 2018-09-14 Completed University of VACCINE 00:00:00 [facility] TDAP (ADACEL) 2018-09-14 Completed University of VACCINE 00:00:00 [facility] TDAP (ADACEL) 2018-09-14 Completed University of VACCINE 00:00:00 [facility] TDAP (ADACEL) 2018-09-14 Completed University of VACCINE 00:00:00 [facility] TDAP (ADACEL) 2018-09-14 Completed University of VACCINE 00:00:00 [facility] TDAP (ADACEL) 2018-09-14 Completed University of VACCINE 00:00:00 [facility] TDAP (ADACEL) 2018-09-14 Completed University of VACCINE 00:00:00 [facility] TDAP (ADACEL) 2018-09-14 Completed [facility] of VACCINE 00:00:00 [facility] TDAP (ADACEL) 2018-09-14 Completed University of VACCINE 00:00:00 [facility] TDAP (ADACEL) 2018-09-14 Completed University of VACCINE 00:00:00 [facility] TDAP (ADACEL) 2018-09-14 Completed University of VACCINE 00:00:00 [facility] TDAP (ADACEL) 2018-09-14 Completed University of VACCINE 00:00:00 [facility] TDAP (ADACEL) 2018-09-14 Completed University of VACCINE 00:00:00 [facility] TDAP (ADACEL) 2018-09-14 Completed University of VACCINE 00:00:00 [facility] TDAP (ADACEL) 2018-09-14 Completed University of VACCINE 00:00:00 [facility] TDAP (ADACEL) 2018-09-14 Completed University of VACCINE 00:00:00 [facility] TDAP (ADACEL) 2018-09-14 Completed University of VACCINE 00:00:00 [facility] TDAP (ADACEL) 2018-09-14 Completed University of VACCINE 00:00:00 [facility] TDAP (ADACEL) 2018-09-14 Completed University of VACCINE 00:00:00 [facility] TDAP (ADACEL) 2018-09-14 Completed University of VACCINE 00:00:00 [facility] TDAP (ADACEL) 2018-09-14 Completed University of VACCINE 00:00:00 [facility] TDAP (ADACEL) 2018-09-14 Completed University of VACCINE 00:00:00 [facility] TDAP (ADACEL) 2018-09-14 Completed University of VACCINE 00:00:00 [facility] TDAP (ADACEL) 2018-09-14 Completed University of VACCINE 00:00:00 [facility] TDAP (ADACEL) 2018-09-14 Completed University of VACCINE 00:00:00 [facility] TDAP (ADACEL) 2018-09-14 Completed University of VACCINE 00:00:00 [facility] TDAP (ADACEL) 2018-09-14 Completed University of VACCINE 00:00:00 [facility] TDAP (ADACEL) 2018-09-14 Completed [facility] of VACCINE 00:00:00 [facility] TDAP (ADACEL) 2018-09-14 Completed [facility] of VACCINE 00:00:00 [facility] TDAP (ADACEL) 2018-09-14 Completed [facility] of VACCINE 00:00:00 [facility] TDAP (ADACEL) 2018-09-14 Completed University of VACCINE 00:00:00 [facility] TDAP (ADACEL) 2018-09-14 Completed University of VACCINE 00:00:00 [facility] TDAP (ADACEL) 2018-09-14 Completed University of VACCINE 00:00:00 [facility] TDAP (ADACEL) 2018-09-14 Completed [facility] of VACCINE 00:00:00 [facility] TDAP (ADACEL) 2018-09-14 Completed [facility] of VACCINE 00:00:00 [facility] TDAP (ADACEL) 2018-09-14 Completed University of VACCINE 00:00:00 [facility] TDAP (ADACEL) 2018-09-14 Completed University of VACCINE 00:00:00 [facility] TDAP (ADACEL) 2018-09-14 Completed University of VACCINE 00:00:00 [facility] TDAP (ADACEL) 2018-09-14 Completed [facility] of VACCINE 00:00:00 [facility] TDAP (ADACEL) 2018-09-14 Completed [facility] of VACCINE 00:00:00 [facility] TDAP (ADACEL) 2018-09-14 Completed [facility] of VACCINE 00:00:00 [facility] TDAP (ADACEL) 2018-09-14 Completed [facility] of VACCINE 00:00:00 [facility] TDAP (ADACEL) 2018-09-14 Completed [facility] of VACCINE 00:00:00 [facility] TDAP (ADACEL) 2018-09-14 Completed [facility] of VACCINE 00:00:00 [facility] TDAP (ADACEL) 2018-09-14 Completed University of VACCINE 00:00:00 [facility] TDAP (ADACEL) 2018-09-14 Completed [facility] of VACCINE 00:00:00 [facility] TDAP (ADACEL) 2018-09-14 Completed University of VACCINE 00:00:00 [facility] TDAP (ADACEL) 2018-09-14 Completed [facility] of VACCINE 00:00:00 [facility] TDAP (ADACEL) 2018-09-14 Completed [facility] of VACCINE 00:00:00 [facility] TDAP (ADACEL) 2018-09-14 Completed University of VACCINE 00:00:00 [facility] TDAP (ADACEL) 2018-09-14 Completed [facility] of VACCINE 00:00:00 [facility] TDAP (ADACEL) 2018-09-14 Completed University of VACCINE 00:00:00 [facility] TDAP (ADACEL) 2018-09-14 Completed University of VACCINE 00:00:00 [facility] TDAP (ADACEL) 2018-09-14 Completed University of VACCINE 00:00:00 [facility] TDAP (ADACEL) 2018-09-14 Completed University of VACCINE 00:00:00 [facility] TDAP (ADACEL) 2018-09-14 Completed University of VACCINE 00:00:00 [facility] TDAP (ADACEL) 2018-09-14 Completed University of VACCINE 00:00:00 [facility] TDAP (ADACEL) 2018-09-14 Completed University of VACCINE 00:00:00 [facility] TDAP (ADACEL) 2018-09-14 Completed University of VACCINE 00:00:00 [facility] TDAP (ADACEL) 2018-09-14 Completed University of VACCINE 00:00:00 [facility] TDAP (ADACEL) 2018-09-14 Completed University of VACCINE 00:00:00 [facility] TDAP (ADACEL) 2018-09-14 Completed University of VACCINE 00:00:00 [facility] TDAP (ADACEL) 2018-09-14 Completed University of VACCINE 00:00:00 [facility] TDAP (ADACEL) 2018-09-14 Completed University of VACCINE 00:00:00 [facility] TDAP (ADACEL) 2018-09-14 Completed University of VACCINE 00:00:00 [facility] TDAP (ADACEL) 2018-09-14 Completed University of VACCINE 00:00:00 [facility] TDAP (ADACEL) 2018-09-14 Completed University of VACCINE 00:00:00 [facility] TDAP (ADACEL) 2018-09-14 Completed University of VACCINE 00:00:00 [facility] TDAP (ADACEL) 2018-09-14 Completed University of VACCINE 00:00:00 [facility] TDAP (ADACEL) 2018-09-14 Completed University of VACCINE 00:00:00 [facility] TDAP (ADACEL) 2018-09-14 Completed University of VACCINE 00:00:00 [facility] TDAP (ADACEL) 2018-09-14 Completed University of VACCINE 00:00:00 [facility] TDAP (ADACEL) 2018-09-14 Completed University of VACCINE 00:00:00 [facility] TDAP (ADACEL) 2018-09-14 Completed University of VACCINE 00:00:00 [facility] TDAP (ADACEL) 2018-09-14 Completed University of VACCINE 00:00:00 [facility] TDAP (ADACEL) 2018-09-14 Completed University of VACCINE 00:00:00 [facility] TDAP (ADACEL) 2018-09-14 Completed University of VACCINE 00:00:00 [facility] TDAP (ADACEL) 2018-09-14 Completed University of VACCINE 00:00:00 [facility] TDAP (ADACEL) 2018-09-14 Completed University of VACCINE 00:00:00 [facility] TDAP (ADACEL) 2018-09-14 Completed University of VACCINE 00:00:00 [facility] TDAP (ADACEL) 2018-09-14 Completed University of VACCINE 00:00:00 [facility] TDAP (ADACEL) 2018-09-14 Completed University of VACCINE 00:00:00 [facility] TDAP (ADACEL) 2018-09-14 Completed University of VACCINE 00:00:00 [facility] TDAP (ADACEL) 2018-09-14 Completed University of VACCINE 00:00:00 [facility] TDAP (ADACEL) 2018-09-14 Completed University of VACCINE 00:00:00 [facility] TDAP (ADACEL) 2018-09-14 Completed University of VACCINE 00:00:00 [facility] TDAP (ADACEL) 2018-09-14 Completed University of VACCINE 00:00:00 [facility] TDAP (ADACEL) 2018-09-14 Completed University of VACCINE 00:00:00 [facility] TDAP (ADACEL) 2018-09-14 Completed University of VACCINE 00:00:00 [facility] TDAP (ADACEL) 2018-09-14 Completed University of VACCINE 00:00:00 [facility] TDAP (ADACEL) 2018-09-14 Completed University of VACCINE 00:00:00 [facility] TDAP (ADACEL) 2018-09-14 Completed University of VACCINE 00:00:00 [facility] TDAP (ADACEL) 2018-09-14 Completed University of VACCINE 00:00:00 [facility] TDAP (ADACEL) 2018-09-14 Completed University of VACCINE 00:00:00 [facility] TDAP (ADACEL) 2018-09-14 Completed University of VACCINE 00:00:00 [facility] Vital Signs Vital Name Observation Time Observation Value Comments Source Systolic blood 2022-08-21 16:59:00 122 mm[Hg] Univer sity of pressure [facility] Diastolic blood 2022-08-21 16:59:00 79 mm[Hg] Unive rsity of pressure [facility] Heart rate 2022-08-21 16:59:00 63 /min Universi ty of [facility] Body height 2022-08-21 16:59:00 165.1 cm Universi ty of [facility] Oxygen saturation in 2022-08-21 16:59:00 98 /min University of Arterial blood by [place] [facility] Systolic blood 2022-08-08 19:30:00 124 mm[Hg] Univer sity of pressure [facility] Diastolic blood 2022-08-08 19:30:00 80 mm[Hg] Unive rsity of pressure [facility] Heart rate 2022-08-08 19:30:00 50 /min Universi ty of [facility] Body temperature 2022-08-08 19:30:00 36.61 Darleen Univ ersity of [facility] Respiratory rate 2022-08-08 19:30:00 17 /min Univ ersity of [facility] Body height 2022-08-08 19:30:00 165.1 cm Universi ty of [facility] Body weight 2022-08-08 19:30:00 56.427 kg Universi ty of [facility] BMI 2022-08-08 19:30:00 20.70 kg/m2 [facility] of [facility] Oxygen saturation in 2022-08-08 19:30:00 100 /min University of Arterial blood by [facility] Systolic blood 2022-08-04 18:54:00 102 mm[Hg] Univer sity of pressure [facility] Diastolic blood 2022-08-04 18:54:00 70 mm[Hg] Unive rsity of pressure [facility] Heart rate 2022-08-04 18:54:00 76 /min [facility]i [facility] Body height 2022-08-04 18:54:00 165.1 cm [facility]i ty of [facility] Body weight 2022-08-04 18:54:00 56.7 kg [facility] BMI 2022-08-04 18:54:00 20.80 kg/m2 Universi ty of [facility] Systolic blood 2022-06-09 13:23:00 100 mm[Hg] Univer sity of pressure [facility] Diastolic blood 2022-06-09 13:23:00 77 mm[Hg] Unive rsity of pressure [facility] Heart rate 2022-06-09 13:23:00 73 /min Universi ty of [facility] Body temperature 2022-06-09 13:23:00 36.61 Darleen Univ ersity of [facility] Respiratory rate 2022-06-09 13:23:00 20 /min Univ ersity of [facility] Body height 2022-06-09 13:23:00 165.1 cm Universi ty of [facility] Body weight 2022-06-09 13:23:00 61.009 kg Universi ty of [facility] BMI 2022-06-09 13:23:00 22.38 kg/m2 Universi ty of [facility] Oxygen saturation in 2022-06-09 13:23:00 100 /min University Arterial blood by [facility] Pulse oximetry Branch Systolic blood 2022-04-30 16:02:00 108 mm[Hg] Univer sity of pressure [facility] Diastolic blood 2022-04-30 16:02:00 76 mm[Hg] Unive rsity of pressure [facility] Heart rate 2022-04-30 16:02:00 69 /min Universi ty of [facility] Body temperature 2022-04-30 16:02:00 36.78 Darleen Univ ersity of [facility] Respiratory rate 2022-04-30 16:02:00 18 /min Univ ersity of [facility] Body height 2022-04-30 16:02:00 165.1 cm Universi ty of [facility] Body weight 2022-04-30 16:02:00 54.885 kg Universi ty of [facility] BMI 2022-04-30 16:02:00 20.14 kg/m2 Univers[facility] ty of [facility] Systolic blood 2022-03-11 03:49:00 94 mm[Hg] Univer sity of pressure [facility] Diastolic blood 2022-03-11 03:49:00 66 mm[Hg] Unive rsity of [facility] Heart rate 2022-03-11 03:49:00 68 /min Universi [facility] Body temperature 2022-03-11 03:49:00 36.22 [facility] 2022-03-11 03:49:00 16 /[facility] 2022-03-11 03:49:00 97 /min [facility] blood by [facility] Pulse oximetry Branch Body height 2022-03-10 23:54:00 165.1 cm [facility] Body weight 2022-03-10 23:54:00 56.7 kg [facility] BMI 2022-03-10 23:54:00 20.80 kg/m2 [facility] Systolic blood 2022-01-27 16:15:00 103 mm[Hg] Univer sity of [facility] Diastolic blood 2022-01-27 16:15:00 74 mm[Hg] Unive [facility] Heart rate 2022-01-27 16:15:00 93 /min [facility] Body weight 2022-01-27 16:15:00 57.607 kg [facility] BMI 2022-01-27 16:15:00 21.13 kg/m2 [facility] Procedures Procedure Date / Time Performing Clinician Source Performed DME/SUPPLY JUSTIFICATION 2022-09-10 05:01:00 Doctor Unassigned, [facility] [place] [facility] EXTERNAL PROVIDER RECORDS 2022-08-25 05:01:00 Doctor Unassigned, [facility] [place] [facility] INSURANCE CORRESPONDENCE 2022-08-19 05:01:00 Doctor Unassigned, [facility] [place] [facility] HEPATITIS B SURFACE 2022-06-26 15:45:00 Teo Ingram [facility] HIV 1/2 AG-AB WITH REFLEX 2022-06-26 15:45:00 [facility] ULTRASOUND BREAST 2022-06-26 14:44:24 Nataly [facility] COMPLETE LEFT Medical Branch BI DIAGNOSTIC 2022-06-26 14:00:00 Nataly [facility] TOMOSYNTHESIS LEFT Medical Branc h XR CHEST 1 VW 2022-06-09 14:21:00 Eric Fernandez [facility] CT CERVICAL SPINE WO 2022-06-09 14:18:[address] [facility] CONTRAST [facility] INSURANCE CORRESPONDENCE 2022-06-08 05:01:00 Doctor Shah, [facility] Name [facility] CONSENT/REFUSAL FOR 2022-06-03 16:39:37 Doctor Shah [facility] DIAGNOSIS AND TREATMENT [facility] DME/SUPPLY JUSTIFICATION 2022-05-04 06:01:00 Doctor Shah [facility] Name [facility] EXTERNAL PROVIDER RECORDS 2022-04-03 06:01:00 Doctor Shah [facility] XR WRIST <3 VW RIGHT 2022-03-11 00:49:27 Darryn Owusu [facility] XR WRIST 3+ VW LEFT 2022-03-11 00:49:27 Darryn Owusu [facility] COVID-19 (ID NOW RAPID 2022-03-10 23:52:[address] POCT TEST 2022-03-10 23:46:00 Darryn Owusu [facility] COMP. METABOLIC PANEL 2022-03-10 23:45:[address] [facility] ([id number]) [facility] SALICYLATE 2022-03-10 23:45:00 [facility] ETHANOL 2022-03-10 23:45:00 [facility] CBC WITH DIFF 2022-03-10 23:45:00 [facility] URINALYSIS 2022-03-10 23:45:00 [facility] URINE DRUG (IMMUNOASSAY) 2022-03-10 23:45:00 Darryn Owusu [facility] DRUG Medical [facility] nch SCREEN W/O REFLEX FLU VACC (), 6 2022-01-27 16:36:45 Arik Benz [facility] MO-64 YRS, .5ML, IM, QUAD [facility] l Branch (FLUCELVAX) ASSIGNMENT OF BENEFITS 2022-01-27 16:03:32 Doctor Unassigned, [facility] [place] Medical [facility] POCT URINALYSIS 2022-01-27 00:00:00 Demar On License [facility] o f [facility] AUTHORIZATION FOR RELEASE 2022-01-08 05:01:00 Doctor Unacr, [facility] [place] Medical [facility] AUTHORIZATION FOR RELEASE 2021-12-23 05:01:00 Doctor Alyssa, [facility] [place] [facility] Encounters Start End Encounter Admission Attending Care Care Encounter Source Date/Time Date/Time Type Type Clinicians Facility Department ID 2021-05-01 Outpatient MDA MDA [id number] 17:26:47 Anderso n 2021-02-26 Outpatient P [facility] [id number] Univers 18:38:00 ity of [facility] 2021-01-27 Outpatient P [facility] [id number] Univers 20:41:07 ity of [facility] 2021-01-27 Emergency [facility] [id number] Univers 20:40:15 ity of [facility] 2021-01-27 Emergency [facility] [id number] Univers 15:33:55 ity of [facility] 2021-01-27 Outpatient U [facility] [id number] Univers 01:16:04 ity of [facility] 2021-01-27 Emergency [facility] [id number] Univers 00:53:09 ity of [facility] 2021-01-26 Emergency [facility] [id number] Univers 22:49:05 ity of [facility] 2021-01-25 Emergency [facility] [id number] Univers 21:41:56 ity of [facility] 2021-01-25 Outpatient SHELBY [facility] [id number] Univers 13:01:25 ALY ity of [facility] 2021-01-25 Outpatient SHELBY [facility] [id number] Univers 13:01:[address] [facility] 2021-01-25 Out[facility] [id number] Univers 12:47:[address] [facility] 2021-01-24 Outpatient R [facility] [id number] Univers 15:57:[address] [facility] 2021-01-24 Emergency [facility] [id number] Univers 10:32:11 ity of [facility] 2021-01-24 Emergency [facility] [id number] Univers 10:16:[address] [facility] 2021-01-23 Emergency [facility] [id number] Univers [facility] 2022-12-08 2022-12-08 Outpatient Campos BENZ [facility] [id number] Univers 16:15:00 16:15:00 ARIK [facility] 2022-09-23 2022-09-23 [facility] 1.2.840.114 [id number] Univers 00:00:00 00:00:00 [facility] 350.1.13.10 it y of Edward [place] 4.2.7.2.686 Henry as DONTE?BLEA [id number] [address] MEDICAL OFFICE [facility] 2022-09-23 2022-09-23 [facility] 1.2.840.114 [id number] Univers 00:00:00 00:00:00 [facility] 350.1.13.10 it y of steven I[place]VALE 4.2.7.2.686 Henry as DONTE?BLEA [id number] [address] MEDICAL OFFICE [facility] 2022-09-10 2022-09-10 Orders Doctor MARTINEZ 1.2.840.114 [id number] Univers 00:00:00 00:00:00 Only Unassigned, SHAYY 350.1.13.10 ity of [place] [facility] 4.2.7.2.686 Henry as [phone] [address] 2022-09-09 2022-09-09 [facility] 1.2.840.114 [id number] Univers 00:00:00 00:00:00 Arik HEALTH 350.1.13.10 it y of [place] 4.2.7.2.686 Henry as DONTE?BLEA [phone] [facility] CAR[address] MEDICAL OFFICE [facility] 2022-09-09 2022-09-09 [facility] 1.2.840.114 [id number] Univers 00:00:00 00:00:00 Arik HEALTH 350.1.13.10 it y of [place] 4.2.7.2.686 Henry as DONTE?BLEA [id number] [address] OFFICE [facility] 2022-09-09 2022-09-09 Patient [facility] 1.2.840.114 [id number] Univers 00:00:00 00:00:00 Secure Msg Arik HEALTH 350.1.13.10 ity of [place] 4.2.7.2.686 Hnery as DONTE?BLEA [id number] [address] OFFICE [facility] 2022-09-09 2022-09-09 Telephone [facility] 1.2.840.114 [id number] Univers 00:00:00 00:00:00 Arik HEALTH 350.1.13.10 it y of [place] 4.2.7.2.686 Henry as DONTE?BLEA [id number] [address] OFFICE [facility] 2022-09-09 2022-09-09 Telephone [facility] 1.2.840.114 [id number] Univers 00:00:00 00:00:00 Arik HEALTH 350.1.13.10 it y of [place] 4.2.7.2.686 Henry as DONTE?BLEA [id number] [address] OFFICE [facility] 2022-09-08 2022-09-08 Telephone [facility] 1.2.840.114 [id number] Univers 00:00:00 00:00:00 Arik HEALTH 350.1.13.10 it y of [place] 4.2.7.2.686 Henry as DONTE?BLEA [id number] De dread PRADHAN[address] OFFICE [facility] 2022-09-02 2022-09-02 Refill [facility] 1.2.840.114 [id number] Univers 00:00:00 00:00:00 [facility] 350.1.13.10 it y of [place] 4.2.7.2.686 Henry as DONTE?BLEA [phone] [facility] PRADHAN[address] OFFICE [facility] 2022-08-31 2022-08-31 [facility] 1.2.840.114 [id number] Univers 00:00:00 00:00:00 [facility] 350.1.13.10 it y of [place] 4.2.7.2.686 Henry as DONTE?BLEA [phone] [address] OFFICE [facility] 2022-08-31 2022-08-31 Patient [facility] 1.2.840.114 [id number] Univers 00:00:00 00:00:00 Secure [facility] 350.1.13.10 ity of [place] 4.2.7.2.686 Henry as DONTE?BLEA [phone] De dread [address] OFFICE [facility] 2022-08-27 2022-08-27 [facility] 1.2.840.114 [id number] Univers 00:00:00 00:00:00 , [facility] 350.1.13.10 ity of M [place] 4.2.7.2.686 Henry as DONTE?BLEA [phone] De dread PRADHAN[address] OFFICE [facility] 2022-08-27 2022-08-27 Patient [facility] 1.2.840.114 [id number] Univers 00:00:00 00:00:00 Secure [facility] 350.1.13.10 ity of [place] 4.2.7.2.686 Henry as DONTE?BLEA [id number] [address] OFFICE [facility] 2022-08-25 2022-08-25 Orders Doctor MARTINEZ 1.2.840.114 [id number] Univers 00:00:00 00:00:00 Only Unassigned, SHAYY 350.1.13.10 ity of [place] [facility]PITAL 4.2.7.2.686 Henry as [phone] [address] 2022-08-21 2022-08-21 Outpatient [id number] [id number] Univers 11:20:00 12:22:58 , DONNA it y of [facility] 2022-08-21 2022-08-21 Office [facility] 1.2.840.114 [id number] Univers 11:20:00 12:22:58 Visit , Donna HEALTH 350.1.13.10 ity of Karen [place] 4.2.7.2.686 [place] as DONTE?BLEA [phone] [address] MEDICAL OFFICE [facility] 2022-08-21 2022-08-21 Patient Anthony [facility] 1.2.840.114 [id number] Univers 00:00:00 00:00:00 Outreach Geam Maria HEALTH 350.1.13.10 i ty of [place] 4.2.7.2.686 Henry as DONTE?BLEA [id number] [address] MEDICAL OFFICE [facility] 2022-08-19 2022-08-19 Orders Doctor JUAN 1.2.840.114 [id number] Univers 00:00:00 00:00:00 Only Unassigned, SHAYY 350.1.13.10 ity of [place] [facility] 4.2.7.2.686 Henry as [id number] [address] 2022-08-19 2022-08-19 Telephone [facility] 1.2.840.114 [id number] Univers 00:00:00 00:00:00 Arik HEALTH 350.1.13.10 it y of Jonathan [facility] 4.2.7.2.686 Henry as DONTE?BLEA [id number] [address] MEDICAL OFFICE [facility] 2022-08-15 2022-08-15 Refill [facility] [place] 1.2.840.114 [id number] Univers 00:00:00 00:00:00 Arik HEALTH 350.1.13.10 it y of [place] 4.2.7.2.686 Henry as DONTE?BLEA [id number] [facility] MELVIN 044 [facility] OFFICE [facility] 2022-08-10 2022-08-10 Telephone [facility] 1.2.840.114 10 [id number] Univers 00:00:00 00:00:00 Teo TREVIZO 350.1.13.10 i ty of [place] [phone] [address] 2022-08-10 2022-08-10 Telephone [facility] 1.2.840.114 [id number] Univers 00:00:00 00:00:00 Teo TREVIZO 350.1.13.10 i ty of [place]2.[place].2.[place] [id number] [address] 2022-08-10 2022-08-10 Telephone [facility] 1.2.840.114 [id number] Univers 00:00:00 00:00:00 [facility] 350.1.13.10 it y of [place] 4.2.7.2.686 Henry as DONTE?BLEA [phone] [facility] 0[address] [facility] OFFICE [facility] 2022-08-08 2022-08-08 Nurse Nurse, [facility] 1.2.840.114 [id number] Univers 14:30:00 14:50:00 Visit Unknown, [facility] 350.1.13.10 ity of [place] 4.2.7.2.686 Henry as DONTE?BLEA [id number] [facility] 370 [facility] OFFICE [facility] 2022-08-08 2022-08-08 Outpatient R NATALY [facility] [id number] Univers 14:30:00 14:30:[address] [facility] 2022-08-04 2022-08-04 Office [facility] 1.2.840.114 [id number] Univers 14:30:00 15:00:00 Visit [facility] 350.1.13.10 it y of [place] 4.2.7.2.686 Henry as DONTE?BLEA [id number] [facility] PRADH[address] MEDICAL OFFICE [facility] 2022-08-04 2022-08-04 Outpatient R DEMAR [facility] [id number] Univers 14:30:00 14:18:19 ARIK ity of [facility] 2022-07-30 2022-07-30 RefJUAN Stein 1.2.840.114 [id number] Univers 00:00:00 00:00:00 [facility] 350.1.13.10 it y of [facility] 4.2.7.2.686 Henry as [id number] [address] 2022-07-26 2022-07-26 Refill [facility] 1.2.840.114 [id number] [facility] 00:00:00 00:00:00 [facility] 350.1.13.10 it y of Edward [facility] 4.2.7.2.686 Henry as DONTE?BLEA [id number] [facility] PRADHAN[address] OFFICE [facility] 2022-07-22 2022-07-22 [facility] 1.2.840.114 102 [id number] Univers 00:00:00 00:00:00 [facility] 350.1.13.10 it y of [place] 4.2.7.2.686 Henry as DONTE?BLEA [phone] De dread MELVIN [address] [place] [address] OFFICE [facility] 2022-06-26 2022-06-26 [facility] 1.2.840.114 [id number] Univers 08:19:16 23:59:00 Encounter Teo SPECIALTY 350.1.13.10 ity of [place] [phone] De dread MESSER 800 [facility] 2022-06-26 2022-06-26 Intensive Care Specialist Lab, [facility] 1.2.840.114 10 [id number] Univers 10:30:00 10:45:00 Visit Teo Ingram SPECIALTY 350.1.13.10 it[place] of [place]2.[place]2.[place] [phone] De dread MESSER 353 [facility] 2022-06-26 2022-06-26 Outpatient R NATALY [facility] [id number] Univers 08:18:41 08:18:00 TEO ity of [facility] 2022-06-26 2022-06-26 Hospital Nataly [facility] 1.2.840.114 [id number] Univers 08:00:00 08:18:00 Encounter Toe SPECIALTY 350.1.13.10 ity of [place] 4[place]2.[place].2.[place] [id number] De dread MESSER 800 [facility] 2022-06-26 2022-06-26 Case KATHERINE Ingram 1.2.034.136 [id number] Univers 00:00:00 00:00:00 Management Teo PEDIATRIC 350.1.13.10 ity of [place]2.[place] [id number] [place] [address] [address] [facility] 2022-06-25 2022-06-25 Patient [facility] 1.2.840.114 [id number] Univers 00:00:00 00:00:00 Secure Msg Arik HEALTH 350.1.13.10 ity of [place] 4.2.7.2.686 Henry as DONTE?BLEA [id number] De dicdhruv EY [address] [place] MEDICAL OFFICE BUILDING 2022-06-25 2022-06-25 Patient [facility] 1.2.840.114 [id number] Univers 00:00:00 00:00:00 Secure Msg Arik HEALTH 350.1.13.10 ity of [place] 4.2.7.2.686 Henry as DONTE?BLEA [id number] De dicdhruv MELVIN [address] [place] MEDICAL OFFICE BUILDING 2022-06-25 2022-06-25 Patient Nataly [facility] 1.2.971.008 [id number] Univers 00:00:00 00:00:00 Secure Msg Teo [place] 350.1.13.10 ity of [place].2.7.2.[place] [id number] De dicdhruv NAL [address] [place] [address] 2022-06-22 2022-06-22 Refill Demar, [facility] 1.2.840.114 [id number] Univers 00:00:00 00:00:00 Arik [facility] 350.1.13.10 it y of Jonathan [place] 4.2.7.2.686 Henry as DONTE?BLEA [id number] De dread MELVIN [address] [place] [address] 2022-06-22 2022-06-22 Telephone [facility] 1.2.840.114 10 [id number] Univers 00:00:00 00:00:00 Teo TREVIZO 350.1.13.10 i ty of [place] 4.2.7.2.686 [place] [id number] De dical [address] 2022-06-19 2022-06-19 Telephone [facility] 1.2.840.114 10 [id number] Univers 00:00:00 00:00:00 Teo TREVIZO 350.1.13.10 i ty of [place] 4.2.7.2.686 [place] [id number] De dicdhruv COTE [address] [place] [address] 2022-06-12 2022-06-12 Telephone [facility] 1.2.324.026 [id number] Univers 00:00:00 00:00:00 Elle TREVIZO 350.1.13.10 ity of [place] 4[place]2.7.2.686 [place] [id number] De dic[address] 2022-06-10 2022-06-10 Patient Doctor [facility] 1.2.840.114 [id number] Univers 00:00:00 00:00:00 Secure Msg Unassigned, HEALTH 350.1.13.10 ity of [place] JOSELINE 4.2.7.2.686 Henry as DONTE?BLEA [phone] De dread MELVIN [address] [place] [address] 2022-06-09 2022-06-09 Emergency X AUFDERIDE [facility] ERT [id number] Univers 08:29:00 10:11:00 , ERIC ity of [facility] 2022-06-09 2022-06-09 Emergency Aufderheide [facility] 1.2.840.114 [id number] Univers 08:29:00 10:11:00 , Eric TREVIZO 350.1.13.10 i ty of [place] 4.2.7.2.686 [place] [id number] [facility] [address] [place] 2022-06-09 2022-06-09 Telephone [facility] 1.2.840.114 [id number] Univers 00:00:00 00:00:00 [facility] 350.1.13.10 it y of [place] 4.2.7.2.686 Henry as DONTE?BLEA [id number] [address] MEDICAL OFFICE [facility] 2022-06-09 2022-06-09 Refill [facility] 1.2.840.114 [id number] Univers 00:00:00 00:00:00 [facility] 350.1.13.10 it y of Edward [facility] 4.2.7.2.686 Henry as DONTE?BLEA [id number] [address] OFFICE [facility] 2022-06-08 2022-06-08 Orders Doctor JUAN 1.2.840.114 [id number] Univers 00:00:00 00:00:00 Only Unassigned, SHAYY 350.1.13.10 ity of [place] [facility] 4.2.7.2.686 Henry as [phone] [facility] [address] [place] 2022-06-05 2022-06-05 Outpatient Campos [facility] [id number] Univers 11:00:00 11:00:00 ELLE ellis of [facility] 2022-06-05 2022-06-05 Telephone [facility] 1.2.840.114 101 [id number] Univers 00:00:00 00:00:00 [facility] 350.1.13.10 it y of Edward [facility] 4.2.7.2.686 Henry as DONTE?BLEA [id number] [address] MEDICAL OFFICE [facility] 2022-06-04 2022-06-04 Telephone [facility] 1.2.840.114 [id number] Univers 00:00:00 00:00:00 [facility] 350.1.13.10 it y of Edward [facility] 4.2.7.2.686 Henry as DONTE?BLEA [phone] De dical KNEY 044 [facility] OFFICE [facility] 2022-06-04 2022-06-04 [facility] [place] 1.2.840.114 [id number] Univers 00:00:00 00:00:00 Secure Msg [facility] 350.1.13.10 ity of Edward [facility] 4.2.7.2.686 Henyr as DONTE?BLEA [id number] [facility] 044 [facility] OFFICE [facility] 2022-06-03 2022-06-03 Outpatient R NATALY [facility] [id number] Univers 10:40:13 23:59:00 TEO ity of [facility] 2022-06-03 2022-06-03 [facility] 1.2.840.114 [id number] Univers 10:40:00 23:59:00 Encounter Teo TREVIZO 350.1.13.10 ity of [place].2.7.2.[place] [id number] [facility] [address] [place] 2022-06-03 2022-06-03 Patient Doctor [facility] 1.2.840.114 [id number] Univers 00:00:00 00:00:00 Secure Msg Unassigned, [place] 350.1.13.10 ity of [place].2.[place] [id number] [facility] 134 [facility] 2022-06-03 2022-06-03 Orders Doctor JUAN 1.2.840.114 [id number] Univers 00:00:00 00:00:00 Only Unassigned, SHAYY 350.1.13.10 ity of [place] [facility] 4.2.7.2.686 Henry as [phone] [facility] [address] [place] 2022-05-25 2022-05-25 Patient [facility] 1.2.840.114 [id number] Univers 00:00:00 00:00:00 Secure Msg [facility] 350.1.13.10 ity of Edward [facility] 4.2.7.2.686 Henry as DONTE?BLEA [id number] De dicdhruv [facility] 044 [facility] OFFICE [facility] 2022-05-25 2022-05-25 Telephone [facility] 1.2.840.114 [id number] Univers 00:00:00 00:00:00 [facility] 350.1.13.10 it y of Edsteven [facility] 4.2.7.2.686 Henry as DONTE?BLEA [phone] De dicdhruv [address] OFFICE [facility] 2022-05-04 2022-05-04 Orders Doctor JUAN 1.2.840.114 [id number] Univers 00:00:00 00:00:00 Only Unassigned, SHAYY 350.1.13.10 [facility] 4.2.7.2.686 [place] as [id number] [address] 2022-04-30 2022-04-30 Outpatient Campos [facility] [id number] Univers 09:45:00 10:48:[address] [facility] 2022-04-30 2022-04-30 Office [facility] 1.2.551.338 [id number] Univers 09:45:00 10:48:21 Visit Teo INAVALE 350.1.13.10 i ty of [place].2.[place] [phone] De dread [address] 2022-04-30 2022-04-30 Outpatient Campos INGRAM [facility] [id number] Univers 09:45:00 09:45:[address] [facility] 2022-04-29 2022-04-29 Refill [facility] 1.2.840.114 [id number] Univers 00:00:00 00:00:00 [facility] 350.1.13.10 it y of Edward [facility] 4.2.7.2.686 [place] as DONTE?BLEA [phone] De dicdhruv [address] OFFICE [facility] 2022-04-28 2022-04-28 Telephone [facility] 1.2.840.114 [id number] Univers 00:00:00 00:00:00 [facility] 350.1.13.10 it y of Edward [place] 4.2.7.2.686 Henry as DONTE?BLEA [id number] [address] OFFICE [facility] 2022-04-24 2022-04-24 [facility] 1.2.840.114 [id number] Univers 00:00:00 00:00:00 [facility] 350.1.13.10 it y of Edward [place] 4.2.7.2.686 Henry as DONTE?BLEA [phone] [address] OFFICE [facility] 2022-04-24 2022-04-24 [facility] 1.2.840.114 [id number] Univers 00:00:00 00:00:00 [facility] 350.1.13.10 it y of Edward [place] 4.2.7.2.686 [place] as DONTE?BLEA [phone] [address] OFFICE [facility] 2022-04-24 2022-04-24 [facility] 1.2.840.114 [id number] [facility] 00:00:00 00:00:00 Secure Msg Emilia [facility] 350.1.13.10 ity of [place] 4.2.7.2.686 [place] as DONTE?BLEA [id number] [address] OFFICE [facility] 2022-04-24 2022-04-24 [facility] 1.2.840.114 [id number] Univers 00:00:00 00:00:00 [facility] 350.1.13.10 it y of [place] 4.2.7.2.686 Henry as DONTE?BLEA [phone] [address] OFFICE [facility] 2022-04-16 2022-04-16 Telephone [facility] 1.2.840.114 [id number] Univers 00:00:00 00:00:00 [facility] 350.1.13.10 it y of [place] 4.2.7.2.686 Henry as DONTE?BLEA [id number] [address] OFFICE [facility] 2022-04-14 2022-04-14 [facility] 1.2.840.114 [id number] Univers 00:00:00 00:00:00 Arik HEALTH 350.1.13.10 it y of [place] 4.2.7.2.686 Henry as DONTE?BLEA [id number] [address] 2022-04-06 2022-04-06 [facility] 1.2.840.114 [id number] Univers 00:00:00 00:00:00 Arik HEALTH 350.1.13.10 it y of [place] 4.2.7.2.686 Henry as DONTE?BLEA [phone] [address] 2022-04-06 2022-04-06 [facility] 1.2.840.114 [id number] Univers 00:00:00 00:00:00 [facility] HEALTH 350.1.13.10 it y of [place] 4.2.7.2.686 Henry as DONTE?BLEA [phone] [address] 2022-04-06 2022-04-06 [facility] 1.2.840.114 [id number] Univers 00:00:00 00:00:00 Arik HEALTH 350.1.13.10 it y of [place] 4.2.7.2.686 Henry as DONTE?BLEA [id number] [address] OFFICE [facility] 2022-04-06 2022-04-06 [facility] 1.2.840.114 [id number] Univers 00:00:00 00:00:00 Arik HEALTH 350.1.13.10 it y of [place] 4.2.7.2.686 Henry as DONTE?BLEA [phone] [address] 2022-04-03 2022-04-03 Jitendra MARTINEZ 1.2.840.114 [id number] Univers 00:00:00 00:00:00 Only Unassigned, SHAYY 350.1.13.10 ity of [facility] 4.2.7.2.686 Henry as [phone] [address] 2022-03-29 2022-03-29 [facility] 1.2.840.114 [id number] Univers 00:00:00 00:00:00 [facility] 350.1.13.10 it y of [place] 4.2.7.2.686 Henry as DONTE?BLEA [phone] [address] MEDICAL OFFICE [facility] 2022-03-21 2022-03-21 [facility] 1.2.840.114 [id number] Univers 00:00:00 00:00:00 [facility] 350.1.13.10 it y of [place] 4.2.7.2.686 Henry as DONTE?BLEA [phone] [address] OFFICE [facility] 2022-03-17 2022-03-17 Patient [facility] 1.2.840.114 [id number] Univers 00:00:00 00:00:00 Secure Ms Emilia [facility] 350.1.13.10 ity of [place] 4.2.7.2.686 Henry as DONTE?BLEA [id number] [address] OFFICE [facility] 2022-03-16 2022-03-16 [facility] 1.2.840.114 [id number] Univers 00:00:00 00:00:00 [facility] 350.1.13.10 it y of [place] 4.2.7.2.686 Henry as DONTE?BLEA [id number] [address] OFFICE [facility] 2022-03-16 2022-03-16 [facility] 1.2.840.114 [id number] Univers 00:00:00 00:00:00 [facility] 350.1.13.10 it y of [place] 4.2.7.2.686 Henry as DONTE?BLEA [phone] [address] OFFICE [facility] 2022-03-16 2022-03-16 Patient [facility] 1.2.840.114 [id number] Univers 00:00:00 00:00:00 Secure Ms Arik [facility] 350.1.13.10 ity of [place] 4.2.7.2.686 Henry as DONTE?BLEA [id number] [address] MEDICAL OFFICE [facility] 2022-03-13 2022-03-13 Patient [facility] 1.2.840.114 [id number] Univers 00:00:00 00:00:00 Secure Msg Arik HEALTH 350.1.13.10 ity of [place] 4.2.7.2.686 Henry as DONTE?BLEA [id number] [address] OFFICE [facility] 2022-03-13 2022-03-13 Telephone [facility] 1.2.840.114 [id number] Univers 00:00:00 00:00:00 Arik [facility] 350.1.13.10 it y of [place] 4.2.7.2.686 Henry as DONTE?BLEA [phone] [address] OFFICE [facility] 2022-03-13 2022-03-13 Refill [facility] 1.2.840.114 [id number] Univers 00:00:00 00:00:00 [facility] 350.1.13.10 it y of [place] 4.2.7.2.686 Henry as DONTE?BLEA [id number] [address] OFFICE [facility] 2022-03-11 2022-03-11 JUAN Jackson 1.2.840.114 [id number] Univers 00:00:00 00:00:00 (Out) Helen GARAY 350.1.13.10 it y of HOSPITAL 4.2.7.2.686 Henry as [phone] [address] 2022-03-10 2022-03-10 Emergency X RONEN [facility] ERT [id number] Univers 17:24:00 23:18:00 KEITH campy of [facility] 2022-03-10 2022-03-10 Emergency Darryn Owusu [facility] 1.2.840. 114 [id number] Univers 17:24:00 23:18:00 Keith Yi 350.1.13.10 ity of [place] 4.2.7.2.[place] [phone] [facility] 0[address] [place] 2022-03-10 2022-03-10 [facility] 1.2.840.114 [id number] Univers 00:00:00 00:00:00 [facility] 350.1.13.10 it [facility] 4.2.7.2.686 Henry as DONTE?BLEA [phone] [address] MEDICAL OFFICE [facility] 2022-02-23 2022-02-23 [facility] 1.2.840.114 [id number] Univers 00:00:00 00:00:00 Arik [facility] 350.1.13.10 it y of [facility] 4.2.7.2.686 Henry as DONTE?BLEA [phone] [address] MEDICAL OFFICE [facility] 2022-01-27 2022-01-27 [facility] [id number] Univers 11:30:00 12:50:55 ARIK ity of [facility] 2022-01-27 2022-01-27 Office [facility] 1.2.840.114 [id number] [facility] 11:30:00 12:50:55 Visit [facility] 350.1.13.10 it y of [place] 4.2.7.2.686 Henry as DONTE?BLEA [id number] [address] MEDICAL OFFICE [facility] 2022-01-27 2022-01-27 Orders Doctor JUAN 1.2.840.114 [id number] Univers 00:00:00 00:00:00 Only Unassigned, SHAYY 350.1.13.10 ity of [place] [facility] 4.2.7.2.686 Henry as [phone] [facility] 009 [place] 2022-01-26 2022-01-26 Outpatient R [facility] [id number] Univers 13:00:00 13:00:00 ity of [facility] 2022-01-26 2022-01-26 Patient [facility] 1.2.840.114 [id number] Univers 00:00:00 00:00:00 Secure Msg Arik TREVIZO 350.1.13.10 ity of [place] 4.2.7.2.686 [place] [id number] [address] 2022-01-26 2022-01-26 Telephone [facility] 1.2.840.114 [id number] Univers 00:00:00 00:00:00 Arik HEALTH 350.1.13.10 it y of [place] 4.2.7.2.686 Henry as DONTE?BLEA [phone] [address] 2022-01-23 2022-01-23 [facility] 1.2.840.114 [id number] Univers 00:00:00 00:00:00 Arik HEALTH 350.1.13.10 it y of [place] 4.2.7.2.686 Henry as DONTE?BLEA [id number] [address] 2022-01-22 2022-01-22 Patient [facility] 1.2.840.114 [id number] Univers 00:00:00 00:00:00 Secure Msg Arik TREVIZO 350.1.13.10 ity of [place] 4.2.7.2.686 [place] [phone] [address] 2022-01-20 2022-01-20 [facility] 1.2.840.114 [id number] Univers 00:00:00 00:00:00 Arik HEALTH 350.1.13.10 it y of [place] 4.2.7.2.686 Henry as DONTE?BLEA [phone] [address] 2022-01-19 2022-01-19 [facility] 1.2.840.114 [id number] Univers 00:00:00 00:00:00 Arik HEALTH 350.1.13.10 it y of [place] 4.2.7.2.686 Henry as DONTE?BLEA [id number] [address] OFFICE [facility] 2022-01-19 2022-01-19 Patient [facility] 1.2.840.114 [id number] Univers 00:00:00 00:00:00 Secure Msg Arik HEALTH 350.1.13.10 ity of [place] 4.2.7.2.686 Henry as DONTE?BLEA [id number] [address] OFFICE [facility] 2022-01-08 2022-01-08 Telephone [facility] 1.2.101.530 [id number] Univers 00:00:00 00:00:00 Onel HEALTH 350.1.13.10 it y of [place] 4.2.7.2.686 Henry as DONTE?BLEA [id number] [address] 2022-01-08 2022-01-08 Orders Doctor JUAN 1.2.840.114 [id number] Univers 00:00:00 00:00:00 Only Unassigned, SHAYY 350.1.13.10 ity of [place] [facility] 4.2.7.2.686 Henry as [phone] [address] 2021-12-23 2021-12-23 Telephone [facility] 1.2.840.114 [id number] Univers 00:00:00 00:00:00 Arik HEALTH 350.1.13.10 it y of [place] 4.2.7.2.686 Henry as DONTE?BLEA [id number] [address] 2021-12-23 2021-12-23 Orders Doctor JUAN 1.2.840.114 [id number] Univers 00:00:00 00:00:00 Only Unassigned, SHAYY 350.1.13.10 ity of [place] [facility] 4.2.7.2.686 Henry as [id number] [address] 2021-12-22 2021-12-22 Refill [facility] 1.2.840.114 [id number] Univers 00:00:00 00:00:00 Arik HEALTH 350.1.13.10 it y of [place] 4.2.7.2.686 Henry as DONTE?BLEA [phone] [address] MEDICAL OFFICE BUILDING 2021-12-22 2021-12-22 Telephone [facility] 1.2.840.114 [id number] Univers 00:00:00 00:00:00 Arik HEALTH 350.1.13.10 it y of [place] 4.2.7.2.686 Henry as DONTE?BLEA [phone] [address] MEDICAL OFFICE BUILDING 2021-12-22 2021-12-22 Patient [facility] 1.2.840.114 [id number] Univers 00:00:00 00:00:00 Secure Msg Arik HEALTH 350.1.13.10 ity of [place] 4.2.7.2.686 Henry as DONTE?BLEA [id number] [address] MEDICAL OFFICE [facility] 2021-12-04 2021-12-04 Refill [facility] 1.2.840.114 [id number] Univers 00:00:00 00:00:00 [facility] 350.1.13.10 it y of [place] 4.2.7.2.686 Henry as DONTE?BLEA [id number] [address] OFFICE [facility] 2021-11-26 2021-11-26 Outpatient R KIZZY SANTOS [facility] [id number] Univers 13:20:00 16:16:11 KIZZY SANTOS y of [facility] 2021-11-26 2021-11-26 Office Kizzy Santos [facility] 1.2.840.114 [id number] Univers 13:20:00 16:16:11 Visit MULTISPEC 350.1.13.10 ity of [place] 4[place]2.7.2.686 [place] [id number] [address] [facility] 2021-11-26 2021-11-26 Outpatient R KIZZY SANTOS [facility] [id number] Univers 13:20:00 16:16:11 KIZZY SANTOS it y of [facility] 2021-11-26 2021-11-26 Outpatient R TOM KIZZY [facility] [id number] Univers 13:20:00 13:20:00 KIZZY SANTOS it y of [facility] 2021-11-26 2021-11-26 Refill [facility] 1.2.840.114 [id number] Univers 00:00:00 00:00:00 Arik HEALTH 350.1.13.10 it y of [place] 4.2.7.2.686 Henry as DONTE?BLEA [phone] [address] MEDICAL OFFICE [facility] 2021-11-25 2021-11-25 Emergency [facility] ERT [id number] Univers 14:54:00 15:38:00 CHRISTOPHER it y of [facility] 2021-11-25 2021-11-25 Emergency [facility] 1.2.855.793 [id number] Univers 14:54:00 15:38:00 Christopher INAVALE 350.1.13.10 ity of [place] 4.2.7.2.686 [place] [facility] [phone] [address] 2021-11-25 2021-11-25 Telephone [facility] 1.2.840.114 [id number] Univers 00:00:00 00:00:00 Arik HEALTH 350.1.13.10 it y of [place] 4.2.7.2.686 Henry as DONTE?BLEA [phone] [address] 2021-11-25 2021-11-25 Patient [facility] 1.2.840.114 [id number] Univers 00:00:00 00:00:00 Secure Msg Arik HEALTH 350.1.13.10 ity of [place] 4.2.7.2.686 [place] as DONTE?BLEA [phone] [address] 2021-11-18 2021-11-18 Outpatient R DEMAR [facility] [id number] Univers 14:00:00 14:24:37 ARIK ity of [facility] 2021-11-18 2021-11-18 Office [facility] 1.2.840.114 [id number] Univers 14:00:00 14:15:00 Visit [facility] 350.1.13.10 it y of [place] 4.2.7.2.686 Henry as DONTE?BLEA [phone] [address] OFFICE [facility] 2021-11-18 2021-11-18 [facility] [id number] Univers 14:00:00 14:00:00 ARIK [facility] 2021-11-11 2021-11-11 [facility] [id number] Univers 13:30:00 13:30:00 [facility] 2021-11-03 2021-11-03 [facility] 1.2.840.114 [id number] Univers 00:00:00 00:00:00 [facility] 350.1.13.10 it y of [place] 4.2.7.2.686 Henry as DONTE?BLEA [phone] [address] OFFICE [facility] 2021-10-27 2021-10-27 Patient [facility] 1.2.840.114 [id number] Univers 00:00:00 00:00:00 Secure Msstephanie Nieto [facility] 350.1.13.10 ity of [place] 4.2.7.2.686 Henry as DONTE?BLEA [phone] [address] 2021-10-15 2021-10-15 [facility] 1.2.840.114 [id number] Univers 00:00:00 00:00:00 Arik INAVALE 350.1.13.10 i ty of [place] 4.2.7.2.686 [place] [phone] [address] 2021-10-14 2021-10-14 [facility] [id number] Univers 14:00:00 14:00:00 OLIVA [facility] 2021-10-09 2021-10-09 [facility] 1.2.840.114 [id number] Univers 00:00:00 00:00:00 [facility] 350.1.13.10 it y of [place] 4.2.7.2.686 Henry as DONTE?BLEA [phone] De dread MELVIN 044 [facility] OFFICE [facility] 2021-10-08 2021-10-08 [facility] 1.2.840.114 [id number] Univers 00:00:00 00:00:00 [facility] HEALTH 350.1.13.10 it y of [place] 4.2.7.2.686 Henry as DONTE?BLEA [phone] De dread MELVIN [address] [place] [address] OFFICE [facility] 2021-10-07 2021-10-07 [facility] 1.2.840.114 [id number] Univers 00:00:00 00:00:00 [facility] 350.1.13.10 it y of [place] 4.2.7.2.686 Henry as DONTE?BLEA [phone] De dread MELVIN [address] [place] [address] MEDICAL OFFICE [facility] 2021-10-02 2021-10-02 [facility] 1.2.840.114 [id number] Univers 00:00:00 00:00:00 [facility] 350.1.13.10 it y of [place] 4.2.7.2.686 Henry as DONTE?BLEA [phone] De dread MELVIN [address] [place] [address] OFFICE [facility] 2021-09-18 2021-09-18 Outpatient Campos MCCLAIN [facility] [id number] Univers 13:13:16 23:59:[address] [facility] 2021-09-18 2021-09-18 Office [facility] 1.2.840.114 [id number] Univers 14:30:00 15:00:00 Visit [facility] 350.1.13.10 it y of [place] 4.2.7.2.686 Henry as DONTE?BLEA [phone] De dread MELVIN [address] [facility] OFFICE [facility] 2021-09-18 2021-09-18 Outpatient Campos MCCLAIN [facility] [id number] Univers 14:30:00 14:03:[address] [facility] 2021-09-18 2021-09-18 Outpatient R SARAHI [facility] [id number] Univers 14:30:00 14:03:[address] [facility] 2021-09-18 2021-09-18 Outpatient R AMIE [facility] [id number] Univers 11:00:00 11:00:[address] [facility] 2021-09-18 2021-09-18 [facility] [id number] Univers 11:00:00 11:00:00 [facility] 2021-09-17 2021-09-17 Patient [facility] 1.2.840.114 [id number] Univers 00:00:00 00:00:00 [facility] 350.1.13.10 ity of [place] 4.2.7.2.686 Henry as DONTE?BLEA [id number] [address] OFFICE [facility] 2021-09-12 2021-09-12 [facility] 1.2.840.114 [id number] Univers 00:00:00 00:00:00 [facility] 350.1.13.10 it y of [place] 4.2.7.2.686 Henry as DONTE?BLEA [id number] [address] OFFICE [facility] 2021-09-11 2021-09-11 Outpatient R SOLOMON [facility] [id number] Univers 14:00:00 14:00:[address] [facility] 2021-09-11 2021-09-11 Outpatient R SOLOMON [facility] [id number] Univers 14:00:00 14:00:[address] [facility] 2021-09-11 2021-09-11 Refdb [facility] 1.2.840.114 [id number] Univers 00:00:00 00:00:00 [facility] 350.1.13.10 it y of [place] 4.2.7.2.686 Henry as DONTE?BLEA [phone] De dread MELVIN 044 [facility] OFFICE [facility] 2021-09-11 2021-09-11 Refill [facility] 1.2.840.114 [id number] Univers 00:00:00 00:00:00 [facility] 350.1.13.10 it y of [place] 4.2.7.2.686 Henry as DONTE?BLEA [phone] De dread MELVIN [address] [place] [address] OFFICE [facility] 2021-09-10 2021-09-10 Outpatient Campos HOLLOWAY [facility] [id number] Univers 15:00:00 15:00:00 [facility] 2021-09-10 2021-09-10 Outpatient Campos HOLLOWAY [facility] [id number] Univers 15:00:00 15:00:00 [facility] 2021-09-03 2021-09-03 Outpatient Campos INGRAM [facility] [id number] Univers 13:30:00 13:30:00 TEO [facility] 2021-08-26 2021-08-26 Intensive Care Specialist Lab, [facility] 1.2.840.1 14 [id number] Univers 14:00:00 14:15:00 Visit Arik Benz [facility] 350.1.13 .10 ity of [place] 4.2.7.2.686 Henry as DONTE?BLEA [phone] De dread MELVIN 353 [facility] 2021-08-26 2021-08-26 Office [facility] 1.2.840.114 [id number] Univers 13:15:00 14:12:01 Visit Arik [facility] 350.1.13.10 it y of [place] 4.2.7.2.686 Henry as DONTE?BLEA [phone] De dread MELVIN [address] [place] [address] OFFICE [facility] 2021-08-26 2021-08-26 Outpatient Campos BENZ [facility] [id number] Univers 13:15:00 14:12:01 ARIK [facility] 2021-08-26 2021-08-26 Outpatient Campos BENZ [facility] [id number] Univers 14:00:00 14:00:[address] [facility] 2021-08-26 2021-08-26 Outpatient Campos BENZ [facility] [id number] Univers 13:15:00 13:15:[address] [facility] 2021-08-21 2021-08-21 Patient Avinash [facility] 1.2.840.114 [id number] Univers 00:00:00 00:00:00 Secure Msstephanie Nieto [facility] 350.1.13.10 ity of [place] 4.2.7.2.686 Henry as DONTE?BLEA [id number] [address] MEDICAL OFFICE [facility] 2021-08-19 2021-08-19 Outpatient Campos BENZ [facility] [id number] Univers 08:00:00 08:00:[address] [facility] 2021-08-19 2021-08-19 Refill Doctor [facility] 1.2.840.114 [id number] Univers 00:00:00 00:00:00 [facility] 350.1.13.10 ity of [place] [facility] 4.2.7.2.686 Henry as DONTE?BLEA [phone] [address] 2021-08-19 2021-08-19 Allie Benz [facility] 1.2.840.114 [id number] Univers 00:00:00 00:00:00 [facility] 350.1.13.10 it y of [place] 4.2.7.2.686 Henry as DONTE?BLEA [id number] [address] MEDICAL OFFICE [facility] 2021-08-11 2021-08-11 Outpatient Campos BENZ [facility] [id number] Univers 15:00:00 15:00:[address] [facility] 2021-08-08 2021-08-08 Outpatient Campos BENZ [facility] [id number] Univers 15:00:00 15:00:[address] [facility] 2021-07-29 2021-07-29 Outpatient Campos BENZ [facility] [id number] Univers 13:00:00 13:00:00 ARIK [facility] 2021-07-21 2021-07-21 [facility] 1.2.840.114 [id number] Univers 00:00:00 00:00:00 [facility] 350.1.13.10 it y of [place] 4.2.7.2.686 Henry as DONTE?BLEA [phone] De nancyme CAROLYNN[address] MEDICAL OFFICE BUILDING 2021-07-09 2021-07-09 [facility] [id number] Univers 13:00:00 13:00:00 [facility] 2021-07-09 2021-07-09 [facility] [id number] Univers 13:00:00 13:00:00 [facility] 2021-07-09 2021-07-09 [facility] [id number] Univers 13:00:00 13:00:00 [facility] 2021-07-09 2021-07-09 Outpatient [facility] [id number] Univers 13:00:00 13:00:00 [facility] 2021-06-24 2021-06-24 Orders Doctor JUAN 1.2.840.114 [id number] Univers 00:00:00 00:00:00 Only Unassigned, SHAYY 350.1.13.10 ity of [place] [facility] 4.2.7.2.686 Henry as [phone] [address] 2021-05-22 2021-05-22 [facility] 1.2.840.114 [id number] Univers 00:00:00 00:00:00 [facility] 350.1.13.10 it y of [place] 4.2.7.2.686 Henry as PROFESSIO [phone] De nancy[address] OFFICE BUILDING ONE 2021-05-17 2021-05-17 [facility] 1.2.840.114 [id number] Univers 00:00:00 00:00:00 [facility] 350.1.13.10 it y of [place] 4.2.7.2.686 [place] as PROFESSIO [phone] De dical NAL [address] [place] OFFICE BUILDING ONE 2021-05-13 2021-05-13 Patient Demar [facility] 1.2.840.114 [id number] Univers 00:00:00 00:00:00 Secure [facility] 350.1.13.10 ity of [place] 4.2.7.2.686 [place] as DONTE?BLEA [phone] De dical KNEY [address] [place] MEDICAL OFFICE BUILDING 2021-05-09 2021-05-09 Transition KALYANI Rosenberg 1.2.840.114 [id number] Univers 00:00:00 00:00:00 of Care Trinidad WILLS 350.1.13.10 i ty [place]2.[place] [phone] [address] 2021-05-04 2021-05-08 Inpatient [facility] [id number] Univers 19:48:00 14:30:[address] [facility] 2021-05-04 2021-05-08 Hospital Sean Meléndez 1.2.840. 114 [id number] Univers 19:48:00 14:30:00 Encounter Michelle Rivera 350.1.13 .10 ity of [facility] 4.2.7.2.686 [place] Yoko Bryant [phone] [place] [address] 2021-05-04 2021-05-08 [facility] [id number] Univers 19:48:00 14:30:[address] [facility] 2021-05-07 2021-05-07 Outpatient R DEMAR [facility] [id number] Univers 15:00:00 15:00:[address] [facility] 2021-05-01 2021-05-01 Outpatient R SOLOMON [facility] [id number] Univers 09:30:00 09:30:[address] [facility] 2021-04-30 2021-04-30 Patient Juma Mcdaniels [facility] 1.2.840.114 [id number] Univers 00:00:00 00:00:00 Secure Msg JOSE [id number] ity of [place] [facility] [phone] [place] [address] [address] 2021-04-29 2021-04-29 Outpatient R JUMA MCDANIELS [facility] [id number] Univers 16:00:00 16:00:00 ity [facility] 2021-04-25 2021-04-25 Outpatient R JUMA MCDANIELS [facility] [id number] Univers 14:00:00 14:00:[address] [facility] 2021-04-25 2021-04-25 [facility] [id number] Univers 13:00:00 13:00:00 ARIK [facility] 2021-04-24 2021-04-24 [facility] [place] 1.2.840.114 [id number] Univers 00:00:00 00:00:00 Secure Msg [facility] 350.1.13.10 ity of [place] 4.2.7.2.686 Henry as DONTE?BLEA [phone] [address] OFFICE [facility] 2021-04-24 2021-04-24 [facility] [place] 1.2.840.114 [id number] Univers 00:00:00 00:00:00 [facility] 350.1.13.10 it y of [place] 4.2.7.2.686 Henry as DONTE?BLEA [phone] [address] OFFICE [facility] 2021-04-09 2021-04-09 Outpatient Davar_P VFP VFP [id number] Village 03:51:00 03:51:00 [id number] Family Practic e 2021-04-08 2021-04-08 Patient Demar [facility] 1.2.840.114 [id number] Univers 00:00:00 00:00:00 Secure Msg [facility] 350.1.13.10 ity of [place] 4.2.7.2.686 [place] as DONTE?BLEA [phone] De dread MELVIN 044 [facility] OFFICE [facility] 2021-04-02 2021-04-02 Outpatient R HECTORCOREY [facility] [id number] Univers 14:00:00 14:29:25 [facility] 2021-04-02 2021-04-02 Office [facility] [place] 1.2.840.114 [id number] Univers 14:00:00 14:15:00 Visit [facility] 350.1.13.10 it y of Jonathan [facility] 4.2.7.2.686 [place] as DONTE?BLEA [phone] De dread PRADH[address] 2021-04-02 2021-04-02 Outpatient R DEMAR [facility] [id number] Univers 14:00:00 14:00:00 [facility] 2021-04-02 2021-04-02 Outpatient Campos BENZ [facility] [id number] Univers 14:00:00 14:00:00 [facility] 2021-04-02 2021-04-02 [facility] [id number] Univers 14:00:00 14:00:00 [facility] 2021-04-01 2021-04-01 Telephone [facility] 1.2.840.114 [id number] Univers 00:00:00 00:00:00 Oliva TREVIZO 350.1.13.10 i ty of [place].7.2.[place] [phone] De dread [facility] 188 [facility] 2021-03-30 2021-03-30 Nurse JUAN Darnell 1.2.840.114 [id number] Univers 00:00:00 00:00:00 Triage Dakotah GARAY 350.1.13.10 ity of [facility] 4.2.7.2.686 Henry as [id number] [address] 2021-03-28 2021-03-28 Outpatient R [facility] [id number] Univers 10:30:00 10:[facility] 2021-03-27 2021-03-27 Outpatient R [facility] [id number] Univers 15:00:00 15:00:[address] [facility] 2021-03-27 2021-03-27 Patient Ad, [facility] 1.2.840.114 [id number] Univers 00:00:00 00:00:00 Secure Msg Elle TREVIZO 350.1.13.10 ity of [place].7.2.686 [place] [phone] De dical NAL [address] [place] [address] 2021-03-27 2021-03-27 Case Ad, [facility] 1.2.840.114 [id number] Univers 00:00:00 00:00:00 Management Elle TREVIZO 350.1.13.10 ity of [place].2.[place] [phone] De dical NAL [address] [place] [address] 2021-03-25 2021-03-25 Outpatient R [facility], [facility] [id number] Univers 15:15:00 15:15:00 [facility] 2021-03-23 2021-03-24 Inpatient X [facility] [id number] Univers 06:56:00 17:35:00 [facility] 2021-03-23 2021-03-24 [facility] 1.2.840.114 [id number] Univers 06:56:00 17:35:00 Encounter Elle TREVIZO 350.1.13.10 ity of [place] 4.2.7.2.686 [facility] [phone] [address] 2021-03-23 2021-03-23 Anesthesia [facility] 1.2.840.114 [id number] Univers 12:00:00 19:29:00 Event Subhash TREVIZO 350.1.13.10 i ty of [place] 4.2.7.2.686 [facility] [phone] [address] 2021-03-23 2021-03-23 Inpatient X [facility], [facility] [id number] Univers 06:56:00 06:56:[address] [facility] 2021-03-23 2021-03-23 Nurse JUAN Cortes 1.2.840.114 [id number] Univers 00:00:00 00:00:00 Triage Renetta Ochoa SHAYY 350.1.13.10 it y of HOSPITAL 4.2.7.2.686 [place] as [phone] [facility] [address] [place] 2021-03-23 2021-03-23 Orders Doctor JUAN 1.2.840.114 [id number] Univers 00:00:00 00:00:00 Only Unassigned, SHAYY 350.1.13.10 ity of [place] [facility] 4.2.7.2.686 Henry as [phone] [facility] [address] [place] 2021-03-14 2021-03-14 Outpatient R AD, [facility] [id number] Univers 15:30:00 16:54:39 [facility] 2021-03-14 2021-03-14 [facility] 1.2.840.114 [id number] Univers 15:30:00 16:54:39 Elle TREVIZO 350.1.13.10 ity of Visit [place] 4[place]2.7.2.[place] [phone] De dical [address] 2021-03-14 2021-03-14 Outpatient R ADUM, [facility] [id number] Univers 15:30:00 15:30:00 [facility] 2021-03-12 2021-03-12 Outpatient P [facility] [id number] Univers 15:00:00 15:00:[address] [facility] 2021-03-12 2021-03-12 Patient Doctor JUAN 1.2.840.114 [id number] Univers 00:00:00 00:00:00 Secure Msg Unassigned, SHAYY 350.1.13.10 ity of [place] [facility] 4.2.7.2.686 [place] as [phone] [address] 2021-03-11 2021-03-11 [facility] [id number] Univers 13:15:00 13:15:00 ARIK [facility] 2021-03-11 2021-03-11 [facility] [id number] Univers 13:15:00 13:15:00 ARIK [facility] 2021-03-11 2021-03-11 Office [facility] [place] 1.2.840.114 [id number] Univers 10:30:59 10:45:59 Visit [facility] 350.1.13.10 it y of [place] 4.2.7.2.686 [place] as DONTE?BLEA [phone] De dicdhruv KNEY [address] [place] MEDICAL OFFICE [facility] 2021-03-09 2021-03-09 Outpatient X JUMA MCDANIELS [facility] [id number] Univers 09:27:00 12:30:00 ity of [facility] 2021-03-09 2021-03-09 Emergency Juma Mcdaniels [facility] 1.2.840.114 [id number] Univers 09:27:00 12:30:00 JOSELINE 350.1.13.10 i ty of [place] 4.2.7.2.[place] [phone] [facility] [address] [place] 2021-03-09 2021-03-09 Nurse JUAN Cortes 1.2.840.114 [id number] Univers 00:00:00 00:00:00 Triage Renetta Ochoa SHAYY 350.1.13.10 it y of [facility] 4.2.7.2.686 [place] as [phone] [facility] [address] [place] 2021-03-07 2021-03-07 [facility] 1.2.840.114 [id number] Univers 15:34:54 16:24:15 Elle TREVIZO 350.1.13.10 ity of Visit [place] 4.2.7.2.686 [place] [facility] [phone] De dicdhruv NAL 134 [facility] 2021-03-07 2021-03-07 [facility] [id number] Univers 15:30:00 16:24:[address] [facility] 2021-03-07 2021-03-07 Refill [facility] 1.2.840.114 [id number] Univers 00:00:00 00:00:00 [facility] 350.1.13.10 it y of Jonathan [facility] 4.2.7.2.686 [place] as DONTE?BLEA [phone] [address] MEDICAL OFFICE [facility] 2021-03-06 2021-03-06 Refill [facility] 1.2.840.114 [id number] Univers 00:00:00 00:00:00 [facility] 350.1.13.10 it y of Jonathan [facility] 4.2.7.2.686 [place] as DONTE?BLEA [phone] [address] OFFICE [facility] 2021-03-04 2021-03-04 Outpatient P CHLOE REESE [facility] [id number] Univers 00:27:00 14:38:00 ity of [facility] 2021-03-04 2021-03-04 [facility] Chloe Reese [facility] 1.2.840.114 [id number] Univers 00:27:00 14:38:00 Encounter Raleigh TREVIZO 350.1.13.10 ity of [place]2.7.2.[place] [phone] [facility] [address] [place] [address] 2021-02-27 2021-02-27 Refill [facility], [facility] 1.2.840.114 [id number] Univers 00:00:00 00:00:00 Elle TREVIZO 350.1.13.10 ity of [place].2.[place] [phone] De dic[address] 2021-02-27 2021-02-27 Refill Ad, [facility] 1.2.840.114 [id number] Univers 00:00:00 00:00:00 Elle [place] 350.1.13.10 ity of [place] 4.2.7.2.686 [place] [phone] De dic[address] 2021-02-27 2021-02-27 Refill Ad, [facility] 1.2.840.114 [id number] Univers 00:00:00 00:00:00 Elle TREVIZO 350.1.13.10 ity of [place] 4.2.7.2.686 [place] [id number] De dical [facility] 134 [facility] 2021-02-26 2021-02-26 Outpatient P AD, [facility] [id number] Univers 12:08:00 18:00:00 ELLE ity of [facility] 2021-02-26 2021-02-26 Hospital [facility] 1.2.840.114 [id number] Univers 12:08:00 18:00:00 Encounter Elle TREVIZO 350.1.13.10 ity of [place] 4.2.7.2.686 [place] [phone] [facility] [address] [place] [address] 2021-02-26 2021-02-26 [facility] [id number] Univers 16:00:00 16:00:00 ELLE ity of [facility] 2021-02-26 2021-02-26 Telephone [facility] 1.2.851.155 [id number] Univers 00:00:00 00:00:00 Elle TREVIZO 350.1.13.10 ity of [place]2.7.2.[place] [phone] [address] 2021-02-14 2021-02-14 Telephone [facility] 1.2.840.114 [id number] Univers 00:00:00 00:00:00 [facility] 350.1.13.10 it y of Jonathan [facility] 4.2.7.2.686 [place] as DONTE?BLEA [phone] [address] MEDICAL OFFICE [facility] 2021-02-07 2021-02-07 Routine Ad, [facility] 1.2.840.114 [id number] Univers 15:39:01 16:45:30 Elle TREVIZO 350.1.13.10 ity of Visit [place] 4.2.7.2.686 [place] [phone] De dic[address] 2021-02-07 2021-02-07 Out[facility] [id number] Univers 15:30:00 16:45:[address] [facility] 2021-02-06 2021-02-06 Outpatient R [facility], [facility] [id number] Univers 16:00:00 16:00:[address] [facility] 2021-02-04 2021-02-04 Telephone [facility] 1.2.339.203 [id number] Univers 00:00:00 00:00:00 Elle [facility] 350.1.13.10 ity [facility] 4.2.7.2.686 [place] [facility] [phone] [facility] 134 [facility] 2021-02-03 2021-02-03 Intensive Care Specialist Lab, Ang [facility] 1.2.840.1 [id number] Univers 13:21:16 13:36:16 Visit AdElle hinds HEALTH 350.1.13.10 ity [facility] 4.2.7.2.686 [place] as DONTE?BLEA [phone] [facility] EY [address] [place] MEDICAL OFFICE [facility] 2021-02-03 2021-02-03 Outpatient R [facility] [id number] Univers 13:30:00 13:30:[address] [facility] 2021-02-03 2021-02-03 Telephone [facility] 1.2.840.114 [id number] Univers 00:00:00 00:00:00 [facility] 350.1.13.10 it y of Jonathan [place] 4.2.7.2.686 [place] as DONTE?BLEA [phone] [facility] [address] [place] MEDICAL OFFICE [facility] 2021-01-31 2021-01-31 Outpatient P AD, [facility] [id number] Univers 16:16:00 17:53:[address] [facility] 2021-01-31 2021-01-31 Hospital [facility] 1.2.840.114 [id number] Univers 16:16:00 17:53:00 Encounter Elle [facility] 350.1.13.10 ity [facility] 4.2.7.2.686 [place]IGGINS [phone] [facility] [address] [place] 2021-01-31 2021-01-31 Outpatient Campos BENZ [facility] [id number] Univers 10:30:00 10:30:[address] [facility] 2021-01-30 2021-01-30 Telephone [facility] 1.2.683.122 [id number] Univers 00:00:00 00:00:00 Elle TREVIZO 350.1.13.10 ity of [place]2.7.2.686 [place] [phone] De dicme NAL 134 [facility] 2021-01-30 2021-01-30 [facility] 1.2.840.114 [id number] Univers 00:00:00 00:00:00 [facility] 350.1.13.10 it y of [place] 4.2.7.2.686 Henry as PROFESSIO [phone] [facility] [address] [place] OFFICE [facility] ONE 2021-01-29 2021-01-29 [facility] 1.2.840.114 [id number] Univers 00:00:00 00:00:00 [facility] 350.1.13.10 it y of [place] 4.2.7.2.686 Henry as PROFESSIO [phone] [address] ONE 2021-01-27 2021-01-27 Outpatient Campos INGRAM [facility] [id number] Univers 13:00:00 13:00:[address] [facility] 2021-01-27 2021-01-27 [facility] 1.2.840.114 [id number] Univers 00:00:00 00:00:00 [facility] 350.1.13.10 it y of [place] 4.2.7.2.686 Henry as PROFESSIO [phone] [address] ONE 2021-01-23 2021-01-23 Outpatient R LEXIE [facility] [id number] Univers 16:00:00 17:27:[address] [facility] 2021-01-23 2021-01-23 Routine Adum, [facility] 1.2.840.114 [id number] Univers 15:56:29 17:27:00 Elle [place] 350.1.13.10 ity of Visit [place] 4.2.7.2.686 [place] PROFESS[place] [phone] De dical NAL [address] [place] [address] 2021-01-21 2021-01-21 Outpatient R ADUM, [facility] [id number] Univers 16:00:00 16:00:00 ELLE ity of [facility] 2021-01-17 2021-01-17 Telephone Ad, [facility] 1.2.297.878 [id number] Univers 00:00:00 00:00:00 Elle Trevizo 350.1.13.10 ity of [place].2.7.2.686 [place] Profess[place] [phone] De dical nal [address] [place] [address] 2021-01-17 2021-01-17 Patient Adum, [facility] 1.2.840.114 [id number] Univers 00:00:00 00:00:00 Secure Msg Elle [place] 350.1.13.10 ity of [place] 4.2.7.2.686 [place] Profess[place] [phone] De dical nal 134 [facility] 2021-01-15 2021-01-15 [facility] 1.2.840.114 [id number] Univers 00:00:00 00:00:00 [facility] 350.1.13.10 it y of [facility] 4.2.7.2.686 [place] as Professio [phone] De dical nal [address] [place] [address] One 2021-01-13 2021-01-13 Refill Ad, [facility] 1.2.840.114 [id number] Univers 00:00:00 00:00:00 Elle [place] 350.1.13.10 ity of [place] 4.2.7.2.686 [place] Profess[place] [phone] De dical nal [address] [place] [address] 2021-01-02 2021-01-02 Telephone Ad, [facility] 1.2.754.207 [id number] Univers 00:00:00 00:00:00 Elle Trevizo 350.1.13.10 ity of [place] 4.2.7.2.686 [place] Profess[place] [phone] De dical nal 134 [facility] 2021-01-02 2021-01-02 Orders Doctor JUAN 1.2.840.114 [id number] Univers 00:00:00 00:00:00 Only Unassigned, SHAYY 350.1.13.10 ity of [place] [facility]ITAL 4.2.7.2.686 Henry as [phone] [address] 2021-01-01 2021-01-01 Telephone Adum, [facility] 1.2.601.779 [id number] Univers 00:00:00 00:00:00 Elle Trevizo 350.1.13.10 ity of [place] 4.2.7.2.686 [place] Profess[place] [phone] De dical nal 134 [facility] 2021-01-01 2021-01-01 Refill Doctor [facility] 1.2.840.114 [id number] Univers 00:00:00 00:00:00 Unassigned, Health 350.1.13.10 ity of [place] 4.2.7.2.686 Henry as Professio [phone] De dical nal [address] [place] [address] One 2020-12-24 2020-12-24 Laboratory Only, Ang Db Test [place] 1.2.8 40.114 [id number] Univers 17:40:30 17:55:30 Only Adum, Elle [facility] 350.1.13.10 ity of [place] 4.2.7.2.686 [place] as Donte?Blea [phone] De dical kney [address] [place] [facility] 2020-12-24 2020-12-24 Routine Adum, [facility] 1.2.840.114 [id number] Univers 16:33:12 17:22:08 Elle Maria [place] 350.1.13.10 ity of Visit [place] 4.2.7.2.686 [place] Profess[place] [phone] De dical nal 134 [facility] 2020-12-24 2020-12-24 Outpatient [facility] [id number] Univers 16:00:00 16:00:00 ELLE ity of [facility] 2020-12-17 2020-12-17 Patient [facility] 1.2.840.114 [id number] Univers 00:00:00 00:00:00 Secure Msg [facility] 350.1.13.10 ity of [place] 4.2.7.2.686 [place] as Professio [phone] [address] One 2020-12-17 2020-12-17 Telephone [facility] 1.2.840.114 [id number] Univers 00:00:00 00:00:00 [facility] 350.1.13.10 it y of [place] 4.2.7.2.686 [place] as Donte?Blea [phone] [facility] estuardo [address] [place] [address] 2020-12-10 2020-12-10 Telephone [facility] 1.2.520.840 [id number] Univers 00:00:00 00:00:00 Elle Trevizo 350.1.13.10 ity of [place] 4.2.7.2.686 [place] Profess[place] [phone] [facility] 134 [facility] 2020-12-10 2020-12-10 Violetta Barrientos 1.2.840.114 [id number] Univers 00:00:00 00:00:00 Triage SHAYY 350.1.13.10 it y of HOSPITAL 4.2.7.2.686 [place] as [phone] [address] 2020-12-10 2020-12-10 Violetta Barrientos 1.2.840.114 [id number] Univers 00:00:00 00:00:00 Triage SHAYY 350.1.13.10 it y of HOSPITAL 4.2.7.2.686 [place] as [phone] [address] 2020-12-04 2020-12-04 [facility] [place] 1.2.840.114 [id number] Univers 00:00:00 00:00:00 [facility] 350.1.13.10 it y of [place] 4.2.7.2.686 [place] as Professio [phone] [address] One 2020-12-04 2020-12-04 [facility] 1.2.840.114 [id number] Univers 00:00:00 00:00:00 [facility] 350.1.13.10 it y of [place] 4.2.7.2.686 [place] as Professio [phone] [address] One 2020-12-03 2020-12-03 [facility] 1.2.840.114 [id number] Univers 00:00:00 00:00:00 [facility] 350.1.13.10 it y of [place] 4.2.7.2.686 [place] as Professio [phone] [address] One 2020-12-03 2020-12-03 [facility] 1.2.840.114 [id number] Univers 00:00:00 00:00:00 [facility] Health 350.1.13.10 it y of [place] 4.2.7.2.686 [place] as Professio [phone] [address] One 2020-12-02 2020-12-02 [facility] 1.2.840.114 [id number] Univers 16:28:00 19:00:00 Encounter Cam [place] 350.1.13.10 ity of [place].2.7.2.686 [place] Gay [phone] [address] 2020-12-02 2020-12-02 [facility] 1.2.840.114 [id number] Univers 16:28:00 19:00:00 Encounter Cam [place] 350.1.13.10 ity of [place]2.7.2.[place] Gay [phone] [address] 2020-12-02 2020-12-02 Nurse Ayaka Palacios 1.2.840.114 [id number] Univers 00:00:00 00:00:00 Triage SHAYY 350.1.13.10 it y of HOSPITAL 4.2.7.2.686 [place] as [phone] [facility] [address] [place] 2020-12-02 2020-12-02 Orders Doctor JUAN 1.2.840.114 [id number] Univers 00:00:00 00:00:00 Only Unassigned, SHAYY 350.1.13.10 ity of [place] HOSPITAL 4.2.7.2.686 Henry as [phone] [address] 2020-12-02 2020-12-02 RefChloe Sweet [facility] 1.2.475.952 [id number] Univers 00:00:00 00:00:00 Cam [place] 350.1.13.10 i ty of [place].2.7.2.[place] Profess[place] [phone] [facility] [address] [place] Building 2020-12-02 2020-12-02 HANG Chew 1.2.840.114 [id number] Univers 00:00:00 00:00:00 [facility] 350.1.13.10 it y of [facility] 4.2.7.2.686 [place] as Professio [phone] [facility] [address] [place] Office [address] One 2020-12-02 2020-12-02 Nurse Ayaka Palacios 1.2.840.114 [id number] Univers 00:00:00 00:00:00 Triage SHAYY 350.1.13.10 it y of [facility] 4.2.7.2.686 Henry as [phone] [facility] [address] [place] 2020-12-02 2020-12-02 Orders Doctor JUAN 1.2.840.114 [id number] Univers 00:00:00 00:00:00 Only Unassigned, SHAYY 350.1.13.10 ity of [place] [facility]OSPITAL 4.2.7.2.686 Henry as [phone] [facility] [address] [place] 2020-12-02 2020-12-02 RefChloe Sweet [facility] 1.2.436.872 [id number] Univers 00:00:00 00:00:00 Cam [place] 350.1.13.10 i ty of [place] 4.2.7.2.[place] Profess[place] [phone] De dical nal 134 [facility] 2020-12-02 2020-12-02 [facility] 1.2.840.114 [id number] Univers 00:00:00 00:00:00 [facility] 350.1.13.10 it y of [place] 4.2.7.2.686 [place] as Professio [phone] De dical nal [address] [place] [address] One 2020-12-01 2020-12-01 Ayaka Ennis 1.2.840.114 [id number] Univers 00:00:00 00:00:00 Triage SHAYY 350.1.13.10 it y of HOSPITAL 4.2.7.2.686 [place] as [phone] [address] 2020-12-01 2020-12-01 Ayaka Ennis 1.2.840.114 [id number] Univers 00:00:00 00:00:00 Triage SHAYY 350.1.13.10 it y of HOSPITAL 4.2.7.2.686 [place] as [phone] [address] 2020-11-27 2020-11-27 Outpatient R ADUM, [facility] [id number] Univers 14:00:00 14:00:00 ELLE ity of [facility] 2020-11-26 2020-11-26 Routine Ad, [facility] 1.2.840.114 [id number] Univers 15:59:55 17:26:28 Elle L Brooks 350.1.13.10 ity of [place]7.2.[place] Profess[place] [phone] De dical nal [address] [facility] 2020-11-26 2020-11-26 Routine Adum, [facility] 1.2.840.114 [id number] Univers 15:59:55 17:26:28 Elle L Brooks 350.1.13.10 ity of Visit [place] 4[place]2.7.2.[place] [phone] De dical nal [address] [place] [address] 2020-11-26 2020-11-26 Intensive Care Specialist Ultrasound, [facility] 1.2 .840.114 [id number] Univers 14:06:00 15:21:00 Visit Adam Reich INDUSTRIAL RELATIONS ANALYST 350.1.13.10 ity of [facility] 4.2.7.2.686 [place] as MATERNAL [phone] [facility] ical & CHILD [address] [place] [address] 2020-11-26 2020-11-26 Intensive Care Specialist Ultrasound, [facility] [place] 1.2 .840.114 [id number] Univers 14:06:00 15:21:00 Visit Jose Reichan Karen INDUSTRIAL RELATIONS ANALYST 350.1.13.10 ity of [facility] 4.2.7.2.686 [place] as MATERNAL [phone] [facility] & CHILD [address] [place] [address] 2020-11-26 2020-11-26 Outpatient P [facility] [id number] Univers 14:00:00 14:00:00 ity of [facility] 2020-11-26 2020-11-26 Telephone [facility] [id number] Univers 00:00:00 00:00:00 Elle Trevizo 350.1.13.10 ity of [place]7.2.[place] Profess[place] [phone] De dical [address] 2020-11-26 2020-11-26 [facility]phone [facility] [id number] [id number] Univers 00:00:00 00:00:00 Elle Candace Trevizo 350.1.13.10 it[place] of [place] [phone] De dical [address] 2020-11-18 2020-11-18 Madison Benz [facility] 1.2.840.114 [id number] Univers 00:00:00 00:00:00 [facility] 350.1.13.10 it y of [facility] 4.2.7.2.686 [place] as Professio [phone] De dical nal 044 [facility] One 2020-11-11 2020-11-11 Telephone [facility] 1.2.845.275 [id number] Univers 00:00:00 00:00:00 Elle Trevizo 350.1.13.10 it[place] of [place] [phone] De dical nal 134 [facility] 2020-11-09 2020-11-09 [facility] Chloe Reese [facility] 1.2.840.114 [id number] Univers 16:44:00 20:20:00 Encounter Raleigh Trevizo 350.1.13.10 ity of [place] [phone] [facility] [address] [place] 2020-11-09 2020-11-09 JUAN Iqbal 1.2.840.114 [id number] Univers 00:00:00 00:00:00 Triage Karina ESTESY 350.1.13.10 it y of HOSPITAL 4.2.7.2.686 [place] as [phone] [facility] [address] [place] 2020-11-07 2020-11-07 [facility] 1.2.147.025 [id number] Univers 00:00:00 00:00:00 Elle Trevizo 350.1.13.10 [place] of [place] [phone] De dical nal 134 [facility] 2020-11-05 2020-11-05 Office [facility] 1.2.840.114 [id number] Univers 15:51:46 16:06:46 Visit [facility] 350.1.13.10 it y of Surgical 4.2.7.2.686 [place] as Specialti [phone] De dical es 198 [facility] 2020-11-05 2020-11-05 [facility] [id number] Univers 15:45:00 15:45:00 CARMEN it of [facility] 2020-11-02 2020-11-02 JUAN Chun 1.2.840.114 [id number] Univers 00:00:00 00:00:00 Triage Helen GARAY 350.1.13.10 it y of HOSPITAL 4.2.7.2.686 [place] as [phone] [facility] [address] 2020-11-02 2020-11-02 Telephone Juma Mcdaniels [facility] Chris 1.2.840.11 [id number] Univers 00:00:00 00:00:00 Jose 350.1.13.10 it y of Women's [place] [phone] [facility] 134 [address] 2020-10-29 2020-10-29 Intensive Care Specialist 2, Adc Lab [facility] 1.2.840.114 [id number] Univers 14:07:34 14:22:34 Visit Adum, Elle Trevizo 350.1.13.10 it[place] of [place] [phone] De dical nal [address] [place] Building 2020-10-29 2020-10-29 Outpatient R [facility] [id number] Univers 14:00:00 14:00:00 ity of [facility] 2020-10-29 2020-10-29 Refill Demar [facility] 1.2.840.114 [id number] Univers 00:00:00 00:00:00 [facility] 350.1.13.10 it y of Jonathan Trevizo 4.2.7.2.686 [place] as Professio [phone] De dical nal 0[address] [place] Office Building One 2020-10-29 2020-10-29 Orders Doctor JUAN 1.2.840.114 [id number] Univers 00:00:00 00:00:00 Only Unassigned, SHAYY 350.1.13.10 ity of [place] HOSPITAL 4.2.7.2.686 [place] as [phone] [facility] 009 [address] 2020-10-25 2020-10-25 Routine Adum, [facility] 1.2.840.114 [id number] Univers 16:45:11 17:34:04 Elle Trevizo 350.1.13.10 ity of Visit [place] [phone] De dical nal 134 [facility] 2020-10-25 2020-10-25 Outpatient R ADUM, [facility] [id number] Univers 16:15:00 16:15:00 ELLE ity of [facility] 2020-10-19 2020-10-19 Madison Benz [facility] 1.2.840.114 [id number] Univers 00:00:00 00:00:00 [facility] 350.1.13.10 it y of Jonathan Trevizo 4.2.7.2.686 [place] as Professio [phone] De dical nal 0[address] [place] Office Building One 2020-10-18 2020-10-18 Telemedici Fellow, [facility] 1.2.840.114 [id number] Univers 14:46:12 15:16:12 ne Visit Shira Chaudhary [facility] 350.1.13.10 ity of [facility] 4.2.7.2.[place] [phone] [address] 2020-10-18 2020-10-18 Outpatient R [facility] [id number] Univers 13:30:00 13:30:[address] [facility] 2020-10-16 2020-10-16 Telephone [facility] 1.2.821.542 [id number] Univers 00:00:00 00:00:00 Elle Trevizo 350.1.13.10 ity of [place].2.[place] [phone] De dical nal [address] [place] [address] 2020-10-16 2020-10-16 Telephone [facility] 1.2.012.918 [id number] Univers 00:00:00 00:00:00 Elle Trevizo 350.1.13.10 ity of [place] [phone] De dical nal 134 [facility] 2020-10-08 2020-10-08 Orders Doctor MARTINEZ 1.2.840.114 [id number] Univers 00:00:00 00:00:00 Only Unassigned, SHAYY 350.1.13.10 ity of [place] HOSPITAL 4.2.7.2.686 [place] as [phone] [facility] 009 [address] 2020-10-04 2020-10-04 Telemedici Fellow, Navin [facility] Rmchp Mfm U N[place]ERSIT 1.2.840.114 [id number] Univers 08:16:56 08:46:56 ne Visit Alyssia Marx HEALTH 350. 1.13.10 ity of CLINICS 4.2.7.2.[place] [phone] [facility] 113 [address] 2020-10-04 2020-10-04 Outpatient R [facility] [id number] Univers 08:30:00 08:30:00 ity of [facility] 2020-10-02 2020-10-02 Telephone [facility] 1.2.840.114 [id number] Univers 00:00:00 00:00:00 [facility] 350.1.13.10 it y of [place] 4.2.7.2.686 [place] as Professio [phone] De dical nal 044 [facility] 2020-09-27 2020-09-27 Routine [facility] 1.2.840.114 [id number] Univers 16:05:39 17:08:05 Elle Candace Joseline 350.1.13.10 ity of Visit [place].2.[place] [phone] De dical nal 134 [facility] 2020-09-27 2020-09-27 [facility] [id number] Univers 16:00:00 16:00:00 ELLE ity of [facility] 2020-09-25 2020-09-25 Telephone [facility] 1.2.840.114 [id number] Univers 00:00:00 00:00:00 [facility] 350.1.13.10 it y of [place] 4.2.7.2.686 [place] as Professio [phone] De dical nal 0[address] [place] Office [facility] One 2020-09-24 2020-09-24 [facility] [id number] Univers 14:00:00 14:00:00 [facility] 2020-09-21 2020-09-21 Telemedici GoldmanGabi beckmanjanes [facility] 1.2.840 .114 [id number] Univers 17:30:22 18:00:22 ne Visit Unknown, [facility] 350.1.13.1 0 [facility] [place]2.7.2.686 [place] [phone] [facility] Primary & [facility] 2020-09-21 2020-09-21 Outpatient R DRE, [facility] [id number] Univers 17:30:00 17:30:[address] [facility] 2020 2020 Outpatient R DEMAR [facility] [id number] Univers 16:15:00 16:15:00 ARIK [facility] 2020 2020 Telemelainai [facility] 1.2.840.114 [id number] Univers 14:02:59 14:17:59 ne Visit [facility] 350.1.13.10 i ty of Jonathan [place] 4.2.7.2.686 [place] as Professio [phone] De dical [facility] 0[address] Office Building One 2020 2020 Telephone [facility] 1.2.228.916 [id number] Univers 00:00:00 00:00:00 Elle Candace Joseline 350.1.13.10 ity [facility] 4.2.7.2.[place] [phone] De dical nal 134 [address] Building 2020-09-19 2020-09-19 Outpatient R GONZALES [facility] [id number] Univers 17:40:00 17:40:00 JAIDEN [facility] 2020-09-19 2020-09-19 Outpatient R [facility] [id number] Univers 16:30:00 16:30:[address] [facility] 2020-09-19 2020-09-19 Madison [facility] 1..840.114 [id number] Univers 00:00:00 00:00:00 [facility] 350.1.13.10 it y of [place] 4.2.7.2.686 [place] as Professio [phone] De dical nal 044 [address] Office Building One 2020-09-19 2020-09-19 Nurse Martha Lang 1.2.840.114 [id number] Univers 00:00:00 00:00:00 Triage SHAYY 350.1.13.10 it y of HOSPITAL 4.2.7.2.686 [place] as [phone] [facility] [address] [place] 2020-09-19 2020-09-19 Nurse Violetta Clay 1.2.840.114 [id number] Univers 00:00:00 00:00:00 Triage SHAYY 350.1.13.10 it y of [facility] 4.2.7.2.686 [place] as [phone] [facility] [address] [place] 2020-09-19 2020-09-19 Patient [facility] 1.2.840.114 [id number] Univers 00:00:00 00:00:00 Secure Msg Elle Trevizo 350.1.13.10 ity of [place].2.7.2.[place] [phone] De dical nal [address] [place] Building 2020-09-19 2020-09-19 Telephone Clinic, [facility] UNIVERSIT 1.2.840.11 [id number] Univers 00:00:00 00:00:00 Neurology Y HEALTH 350.1.13.10 ity of Continuity CLINICS 4.2.7.2.686 [place] [phone] [facility] 0[address] 2020-09-18 2020-09-18 Telephone Kalyani Martinez 1.2.806.624 [id number] Univers 00:00:00 00:00:00 Analilia Wills 350.1.13.10 ity of [place] 4.2.7.2.686 [place] [phone] [facility] 403 [address] 2020-09-18 2020-09-18 Telephone [facility] 1.2.840.114 [id number] Univers 00:00:00 00:00:00 [facility] 350.1.13.10 it y of [place] 4.2.7.2.686 [place] as Professio [phone] [facility] [address] [place] Office Building One 2020-09-18 2020-09-18 Telephone [facility] 1.2.808.156 [id number] Univers 00:00:00 00:00:00 Elle Trevizo 350.1.13.10 ity of [place] 4.2.7.2.[place] [phone] [facility] 134 [facility] 2020-09-08 2020-09-10 Hospital Tita Cortez 1.2.840.11 [id number] Univers 12:24:00 09:20:00 Encounter Migdalia Linares 350.1.13.10 ity of [facility] 4.2.7.2.686 [place] as [phone] [address] 2020-09-08 2020-09-08 Nurse JUAN Santos 1.2.840.114 [id number] Univers 00:00:00 00:00:00 Triage Rosy GARAY 350.1.13.10 ity of [facility] 4.2.7.2.686 [place] as [phone] [address] 2020-09-05 2020-09-05 Outpatient MAO FIGUEROA [facility] [id number] [facility] 14:30:00 14:30:00 ity of [facility] 2020-09-03 2020-09-03 Madison [facility] 1.2.840.114 [id number] Univers 00:00:00 00:00:00 [facility] 350.1.13.10 it y of [place] 4.2.7.2.686 [place] as Professio [phone] [facility] 044 [facility] One 2020-09-03 2020-09-03 Telephone [facility] 1.2.468.170 [id number] Univers 00:00:00 00:00:00 Elle Trevizo 350.1.13.10 ity of [place] 4.2.7.2.[place] [phone] De dical [address] 2020-09-02 2020-09-02 Routine Chloe Reese [facility] 1.2.257.498 [id number] 3218 Univers 13:19:48 15:16:04 Raleigh Trevizo 350.1.13.10 ity of Visit [place] 4.2.7.2.686 [place] [phone] De dic[address] 2020-09-02 2020-09-02 Outpatient R CHLOE REESE [facility] [id number] Univers 13:15:00 13:15:00 ity of [facility] 2020-09-02 2020-09-02 Telephone [facility] 1.2.802.930 [id number] Univers 00:00:00 00:00:00 Elle Trevizo 350.1.13.10 ity of [place] 4.2.7.2.686 [place] [phone] [address] 2020-08-31 2020-08-31 Nurse Irina MARTINEZ 1.2.840.114 [id number] Univers 00:00:00 00:00:00 Triage SHAYY Guzman 350.1.13.10 ity of [facility] 4.2.7.2.686 [place] as [phone] [address] 2020-08-31 2020-08-31 JUAN Pelaez 1.2.840.114 [id number] Univers 00:00:00 00:00:00 Triage Cat Zandra SHAYY 350.1.13.10 i ty [facility] 4.2.7.2.686 [place] as [phone] [address] 2020-08-30 2020-08-30 JUAN Pelaez 1.2.840.114 [id number] Univers 00:00:00 00:00:00 Triage Cat De Paz SHAYY 350.1.13.10 i ty [facility] 4.2.7.2.686 [place] as [phone] [address] 2020-08-28 2020-08-29 Emergency Singer [facility] 1.2.986.634 [id number] Univers 20:20:00 00:01:00 Darryn Trevizo 350.1.13.10 i ty of [place] 4.2.7.2.686 [place] Gay [phone] [address] 2020-08-27 2020-08-27 Intensive Care Specialist 2, Adc Lab [facility] 1.2.840.114 [id number] Univers 15:18:51 15:33:51 Visit Adum, Ellegaby Trevizo 350.1.13.10 ity of [place] 4.2.7.2.686 [place] [phone] De dical nal 353 [facility] 2020-08-27 2020-08-27 Routine Adum, [facility] 1.2.840.114 [id number] Univers 13:41:37 15:06:26 Elle Trevizo 350.1.13.10 ity of [place] 4.2.7.2.686 [place] [phone] De dical nal 134 [facility] 2020-08-27 2020-08-27 [facility] [id number] Univers 14:15:00 14:15:[address] [facility] 2020-08-27 2020-08-27 Telephone [facility] 1.2.729.097 [id number] Univers 00:00:00 00:00:00 Elle Trevizo 350.1.13.10 ity of [place] 4.2.7.2.686 [place] [phone] De dical nal 134 [facility] 2020-08-22 2020-08-22 Outpatient [facility] [id number] Univers 19:20:00 19:20:00 CALEB ity of [facility] 2020-08-22 2020-08-22 Telephone [facility] 1.2.846.908 [id number] Univers 00:00:00 00:00:00 Elle Trevizo 350.1.13.10 ity of [place] 4.2.7.2.686 [place] [phone] De dical nal 134 [facility] 2020-08-22 2020-08-22 Telephone Adum, [facility] 1.2.454.870 [id number] Univers 00:00:00 00:00:00 Elle Maria Brooks 350.1.13.10 ity of [place] 4.2.7.2.686 [place] [phone] De dical [address] 2020-08-19 2020-08-19 Refill Adum, [facility] 1.2.840.114 [id number] Univers 00:00:00 00:00:00 Elle Maria Brooks 350.1.13.10 ity of [place] 4.2.7.2.686 [place] [phone] De dical [address] 2020-08-09 2020-08-09 Outpatient R ADUM, [facility] [id number] Univers 14:30:00 14:30:00 ELLE ity of [facility] 2020-08-06 2020-08-06 Initial Adum, [facility] 1.2.840.114 [id number] Univers 14:28:51 16:45:44 Elle Trevizo 350.1.13.10 ity of [place] 4.2.7.2.686 [place] [phone] [address] 2020-08-06 2020-08-06 Outpatient R ADUM, [facility] [id number] Univers 14:30:00 14:30:00 ELLE ity of [facility] 2020-08-06 2020-08-06 Telephone Adum, [facility] 1.2.929.002 [id number] Univers 00:00:00 00:00:00 Elle Andersonton 350.1.13.10 ity of [place] 4.2.7.2.686 [place] [phone] De dic[address] 2020-08-06 2020-08-06 Orders Doctor MARTINEZ 1.2.840.114 [id number] Univers 00:00:00 00:00:00 Only Unassigned, SHAYY 350.1.13.10 ity of [place] [facility] 4.2.7.2.686 Henry as [phone] [address] 2020-07-29 2020-07-29 [facility] 1.2.840.114 [id number] Univers 00:00:00 00:00:00 [facility] 350.1.13.10 it y of [place] 4.2.7.2.686 [place] as Professio [phone] [address] Office Building One 2020-07-29 2020-07-29 [facility] 1.2.840.114 [id number] Univers 00:00:00 00:00:00 [facility] 350.1.13.10 it y of [place] 4.2.7.2.686 [place] as Professio [phone] [address] Office [facility] 2020-07-22 2020-07-22 Outpatient R [facility] [id number] Univers 19:00:00 19:00:00 IAIN blue [facility] 2020-07-16 2020-07-16 [facility] 1.2.840.114 [id number] Univers 00:00:00 00:00:00 [facility] 350.1.13.10 it y of [place] 4.2.7.2.686 [place] as Professio [phone] [address] One 2020-07-06 2020-07-06 [facility] 1.2.840.114 [id number] Univers 00:00:00 00:00:00 [facility] Health 350.1.13.10 it y of [place] 4.2.7.2.686 [place] as Professio [phone] [address] Office [facility] 2020-07-01 2020-07-01 [facility] 1.2.840.114 [id number] Univers 00:00:00 00:00:00 [facility] 350.1.13.10 it y of [place] 4.2.7.2.686 [place] as Professio [phone] [address] Office [facility] 2020-06-21 2020-06-21 Outpatient R DULCE [facility] [id number] Univers 16:15:00 16:15:00 ARIK [facility] 2020-06-19 2020-06-19 Orders Doctor JUAN 1.2.840.114 [id number] Univers 00:00:00 00:00:00 Only Unassigned, SHAYY 350.1.13.10 ity of [place] [facility] 4.2.7.2.686 [place] as [phone] [address] 2020-06-11 2020-06-11 Office [facility] 1.2.840.114 [id number] Univers 15:35:12 15:50:12 Visit [facility] 350.1.13.10 it y of Jonathan Trevizo 4.2.7.2.686 [place] as Professio [phone] [address] 2020-06-11 2020-06-11 [facility] [id number] Univers 15:30:00 15:30:00 [facility] 2020-05-30 2020-05-30 [facility] 1.2.840.114 [id number] Univers 00:00:00 00:00:00 [facility] 350.1.13.10 it y of Jonathan [place] 4.2.7.2.686 [place] as Professio [phone] [address] 2020-05-27 2020-05-27 Madison [facility] 1.2.840.114 [id number] Univers 00:00:00 00:00:00 Grant Koo [place] 350.1.13.10 ity of [place].7.2.[place] [phone] [facility] 092 [facility] 2020-05-02 2020-05-02 Outpatient R [facility] [id number] Univers 09:50:00 09:50:00 [facility] 2020-05-02 2020-05-02 Telemedici [facility] 1.2.840.114 [id number] Univers 08:42:09 08:52:09 ne Visit [facility] 350.1.13.10 i ty of [place] 4.2.7.2.686 [place] as Professio [phone] De dical nal [address] [place] [address] One 2020-05-02 2020-05-02 Telephone [facility] 1.2.840.114 [id number] Univers 00:00:00 00:00:00 [facility] 350.1.13.10 it y of [place] 4.2.7.2.686 [place] as Professio [phone] De dicme nal [address] [place] [address] One 2020-05-02 2020-05-02 [facility] 1.2.840.114 [id number] Univers 00:00:00 00:00:00 [facility] 350.1.13.10 it y of [place] 4.2.7.2.686 [place] as Professio [phone] [address] One 2020-05-02 2020-05-02 [facility] 1.2.840.114 [id number] Univers 00:00:00 00:00:00 [facility] 350.1.13.10 it y of [place] 4.2.7.2.686 [place] as Professio [phone] [facility] nal [address] [place] [address] One 2020-05-01 2020-05-01 Emergency [facility] 1.2.643.622 [id number] Univers 18:59:00 21:44:00 Juma [place] 350.1.13.10 i ty of [place].7.2.[place] [phone] [facility] [address] [place] 2020-04-28 2020-04-28 Refill [facility] 1.2.840.114 [id number] Univers 00:00:00 00:00:00 [facility] 350.1.13.10 it y of [place] 4.2.7.2.686 [place] as Professio [phone] De dicme nal [address] [place] [address] Office [facility] 2020-04-22 2020-04-22 [facility] 1.2.840.114 [id number] Univers 06:54:00 08:09:00 Encounter Aly Anders[place] 350.1.13.10 ity of [place].2.[place] [phone] [address] 2020-04-19 2020-04-19 [facility] [id number] Univers 13:00:00 13:00:[address] [facility] 2020-04-12 2020-04-12 Refill [facility] 1.2.840.114 [id number] Univers 00:00:00 00:00:00 [facility] 350.1.13.10 it y of [place] 4.2.7.2.686 [place] as Professio [phone] [address] One 2020-04-11 2020-04-11 [facility] [id number] Univers 10:30:00 10:30:00 [facility] 2020-04-11 2020-04-11 Telemedici [facility] 1.2.840.114 [id number] Univers 07:27:09 07:42:09 ne Visit [facility] 350.1.13.10 i ty of [place] 4.2.7.2.686 [place] as Professio [phone] [address] One 2020-04-11 2020-04-11 Telephone [facility] 1.2.840.114 [id number] Univers 00:00:00 00:00:00 [facility] 350.1.13.10 it y of [place] 4.2.7.2.686 [place] as Professio [phone] [address] One 2020-04-09 2020-04-09 Outpatient Campos [facility] [id number] Univers 13:00:00 13:00:00 ARIK [facility] 2020-04-08 2020-04-08 [facility] 1.2.840.114 [id number] Univers 06:58:00 08:24:00 Encounter Aly Trevizo 350.1.13.10 ity of [place] [phone] [facility] [address] 2020-04-08 2020-04-08 Orders Doctor JUAN 1.2.840.114 [id number] Univers 00:00:00 00:00:00 Only Unassigned, SHAYY 350.1.13.10 ity of [place] [facility] 4.2.7.2.686 Henry as [phone] [facility] [address] [place] 2020-04-05 2020-04-05 Outpatient [facility] [id number] Univers 13:45:00 13:45:[address] [facility] 2020-04-05 2020-04-05 Intensive Care Specialist Danette, Adc Lab Main [facility] 1.2.8 40.114 [id number] Univers 11:46:35 12:01:35 Visit Aly Ryan 350.1.13.1 0 ity of [place].2.[place] [phone] [facility] 353 [facility] 2020-04-05 2020-04-05 Laboratory Only, Adc Test [facility] 1.2.840. 114 [id number] Univers 11:44:14 11:59:14 Only Aly Ryan 350.1.13.1 0 ity of [place].7.2.[place] [phone] [facility] [address] [place] 2020-04-05 2020-04-05 Orders Doctor JUAN 1.2.840.114 [id number] Univers 00:00:00 00:00:00 Only Unassigned, SHAYY 350.1.13.10 ity of [place] [facility] 4.2.7.2.686 [place] as [phone] [facility] [address] [place] 2020-04-05 2020-04-05 Telephone [facility] 1.2.840.114 [id number] Univers 00:00:00 00:00:00 [facility] 350.1.13.10 it y of [place] 4.2.7.2.686 [place] as Professio [phone] [address] One 2020-04-04 2020-04-04 Telephone [facility] 1.2.840.114 [id number] Univers 00:00:00 00:00:00 [facility] 350.1.13.10 it y of [place] 4.2.7.2.686 [place] as Professio [phone] [address] One 2020-04-04 2020-04-04 Patient [facility] 1.2.840.114 [id number] [facility] 00:00:00 00:00:00 Secure Msg [facility] 350.1.13.10 ity of [place] 4.2.7.2.686 [place] as Professio [phone] [address] One 2020-04-03 2020-04-03 Office [facility] 1.2.840.114 [id number] Univers 15:00:34 15:15:34 Visit [facility] 350.1.13.10 it y of [place] 4.2.7.2.686 [place] as Professio [phone] [address] One 2020-04-03 2020-04-03 [facility] [id number] Univers 14:45:00 14:45:00 ARIK ity of [facility] 2020-04-03 2020-04-03 Telephone [facility] 1.2.840.114 [id number] Univers 00:00:00 00:00:00 [facility] 350.1.13.10 it y of [place] 4.2.7.2.686 [place] as Professio [phone] [address] One 2020-04-03 2020-04-03 Telephone [facility] 1.2.840.114 [id number] Univers 00:00:00 00:00:00 [facility] 350.1.13.10 it y of [place] 4.2.7.2.686 [place] as Professio [phone] De dical nal [address] Office Building One 2020-03-25 2020-03-25 Hospital Shelby [facility] 1.2.840.114 [id number] Univers 08:02:00 10:10:00 Encounter Aly Trevizo 350.1.13.10 it[place] of [place] [phone] [facility] [address] [place] 2020-03-25 2020-03-25 Orders Doctor JUAN 1.2.840.114 [id number] Univers 00:00:00 00:00:00 Only Unassigned, SHAYY 350.1.13.10 ity of [facility] 4.2.7.2.686 [place] as [phone] [facility] [address] [place] 2020-03-25 2020-03-25 Nurse Irina MARTINEZ 1.2.840.114 [id number] Univers 00:00:00 00:00:00 Triage Thomas SHAYY 350.1.13.10 ity of [facility] 4.2.7.2.686 [place] as [phone] [facility] [address] [place] 2020-03-20 2020-03-20 Intensive Care Specialist Danette, Edy Lab Main [facility] 1.2.8 40.114 [id number] Univers 12:30:25 12:45:25 Visit Aly Ryan 350.1.13.1 0 it[place] of [place] [phone] De dical nal 353 [facility] 2020-03-20 2020-03-20 Laboratory Only, Adc Test [facility] 1.2.840. 114 [id number] Univers 11:43:13 11:58:13 Only Aly Ryan 350.1.13.1 0 it[place] of [place] [phone] [facility] 353 [place] 2020-03-20 2020-03-20 Outpatient R SHELBY [facility] [id number] Univers 11:15:00 11:15:00 ALY ity of [facility] 2020-03-20 2020-03-20 Orders Doctor JUAN 1.2.840.114 [id number] Univers 00:00:00 00:00:00 Only Unassigned, SHAYY 350.1.13.10 ity of [place] [facility] 4.2.7.2.686 [place] as [phone] [facility] [address] [place] 2020-03-12 2020-03-12 Office [facility] 1.2.840.114 [id number] Univers 14:07:40 14:22:40 Visit [facility] 350.1.13.10 it y of [place] 4.2.7.2.686 [place] as Professio [phone] De dical nal [address] [place] Office Building [facility] 2020-03-12 2020-03-12 Outpatient [facility] [id number] Univers 14:15:00 14:15:00 [facility] 2020-03-12 2020-03-12 Nurse JUAN Chun 1.2.840.114 [id number] Univers 00:00:00 00:00:00 Triage Karinaalvaro GARAY 350.1.13.10 it y of HOSPITAL 4.2.7.2.686 [place] as [phone] [address] 2020-03-12 2020-03-12 Telephone [facility] 1.2.840.114 [id number] Univers 00:00:00 00:00:00 [facility] 350.1.13.10 it y of [place] 4.2.7.2.686 [place] as Professio [phone] De dical nal [address] [place] [address] Office Building [facility] 2020-02-14 2020-02-14 [facility] [id number] Univers 15:30:00 15:30:00 ELLE [facility] 2020-02-12 2020-02-12 Refill [facility] 1.2.840.114 [id number] Univers 00:00:00 00:00:00 [facility] 350.1.13.10 it y of [place] 4.2.7.2.686 [place] as Professio [phone] De dical nal [address] [place] Office Building One 2020-01-29 2020-01-29 Telephone [facility]orgageAC[facility] 1.2.840.114 [id number] Univers 00:00:00 00:00:00 Arik [facility] 350.1.13.10 it y of [place] 4.2.7.2.686 [place] as Professio [phone] De nancy[address] Office [facility] 2020-01-29 2020-01-29 [facility] 1.2.840.114 [id number] Univers 00:00:00 00:00:00 Arik [facility] 350.1.13.10 it y of [place] 4.2.7.2.686 [place] as Professio [phone] [address] Office [facility] 2020-01-26 2020-01-26 Outpatient [facility] [id number] Univers 16:00:00 16:00:00 [facility] 2020-01-26 2020-01-26 Intensive Care Specialist Lab, [facility] Pob I [facility] 1.. 840.114 [id number] Univers 09:09:02 09:16:47 Visit Arik Benz steven [facility] 350.1.13 .10 ity of [place] 4.2.7.2.686 [place] as Professio [phone] [address] Office [facility] 2020-01-26 2020-01-26 Office [facility]AC[facility] 1.2.840.114 [id number] Univers 08:16:33 08:31:33 Visit Arik [facility] 350.1.13.10 it y of [place] 4.2.7.2.686 [place] as Professio [phone] De nancy[address] Office [facility] 2020-01-26 2020-01-26 Outpatient R [facility] [id number] Univers 08:30:00 08:30:00 [facility] 2020-01-25 2020-01-25 Office [facility]idgetopherAC[facility] 1.2.255.333 [id number] Univers 15:25:26 16:55:28 Visit Teo Trevizo 350.1.13.10 i ty of [place] 4.2.7.2.686 [place] [phone] De dical nal 134 [facility] 2020-01-25 2020-01-25 Outpatient R MIYATOPHER, [facility] [id number] Univers 15:30:00 15:30:[address] [facility] 2020-01-24 2020-01-24 Outpatient R JUMA MCDANIELS [facility] [id number] Univers 14:30:00 14:30:00 ity of [facility] 2020-01-18 2020-01-18 Refill Doctor UNIVERSIT 1.2.437.632 [id number] Univers 00:00:00 00:00:00 Unassigned, [facility] 350.1.13.10 ity of [place] [facility] 4.2.7.2.686 [place] [phone] [facility] [address] [place] [address] 2020-01-15 2020-01-15 Refill [facility]AC[facility] 1.2.840.114 [id number] Univers 00:00:00 00:00:00 Maximus Trevizo 350.1.13.10 i ty of [place] 4.2.7.2.[place] [phone] De dical nal 044 [facility] 2020-01-12 2020-01-12 Refill [facility] 1.2.840.114 [id number] Univers 00:00:00 00:00:00 Grant Trevizo 350.1.13.10 ity of [place] 4.2.7.2.[place] [phone] [facility] 092 [facility] 2019-12-15 2019-12-15 Outpatient R LEXIE, [facility] [id number] Univers 13:00:00 13:00:00 ELLE [facility] 2019-11-07 2019-11-17 Office [facility] 1.2.840.114 [id number] Univers 14:01:04 14:03:23 Visit Justin Trevizo 350.1.13.10 ity of [place] 4.2.7.2.[place] [phone] De dical nal 044 [facility] 2019-11-17 2019-11-17 Case El[facility]ACOMA[facility] 1.2.840.114 [id number] Univers 00:00:00 00:00:00 Management Justin Trevizo 350.1.13.10 ity of [place] 4.[place].7.2.[place] [phone] De dical nal 044 [facility] 2019-11-14 2019-11-14 Outpatient Campos BENZ, [facility] [id number] Univers 16:30:00 16:30:[address] [facility] 2019-11-10 2019-11-10 Telephone [facility] 1.2.840.114 [id number] Univers 00:00:00 00:00:00 Grant Trevizo 350.1.13.10 ity of [place] 4.2.[place].2.[place] [phone] De dical nal 092 [facility] 2019-11-10 2019-11-10 Refill [facility]AC[facility] 1..840.114 [id number] Univers 00:00:00 00:00:00 Grant Trevizo 350.1.13.10 ity of [place] 4.2.7.2.[place] [phone] De dicme nal 092 [facility] 2019-11-08 2019-11-08 Outpatient Asplin_B VFP VFP [id number] 1-20 Village 11:44:00 11:44:00 [id number] Family Practic e 2019-11-08 2019-11-08 Telephone [facility] 1.2.840.114 [id number] Univers 00:00:00 00:00:00 Grant Trevizo 350.1.13.10 ity of [place] 4.2.7.2.[place] [phone] De dical nal 092 [facility] 2019-11-07 2019-11-07 Intensive Care Specialist 2, Adc Lab [facility] 1.2.840.114 [id number] Univers 14:43:22 14:58:22 Visit Justin Oconnor 350.1.13. 10 ity of [place] 4.2.7.2.686 [place] [phone] De dical nal 353 [facility] 2019-11-07 2019-11-07 Outpatient R ELVIN, [facility] [id number] Univers 13:45:00 13:45:00 WONDIFUL ity o f [facility] 2019-11-05 2019-11-05 Outpatient R ONEL, [facility] [id number] Univers 16:20:00 16:20:00 CALEB ity of [facility] 2019-11-05 2019-11-05 Nurse JUAN Santos 1.2.840.114 [id number] Univers 00:00:00 00:00:00 Triage Rosy GARAY 350.1.13.10 ity of [facility] 4.2.7.2.686 [place] as [phone] [facility] [address] [place] 2019-11-03 2019-11-03 ROSEMARY Chan 1.2.840.114 [id number] Univers 00:00:00 00:00:00 [facility] 350.1.13.10 ity of [facility] 4.2.7.2.686 [place] [phone] [facility] [address] [place] 2019-11-02 2019-11-02 Patient Elvin [facility] 1.2.840.114 [id number] Univers 00:00:00 00:00:00 Secure Msg Wondicorinna Trevizo 350.1.13.10 ity of [place] 4.2.7.2.[place] [phone] De dical nal 044 [facility] 2019-11-01 2019-11-01 Transition Kalyani Dubois 1.2.840.114 [id number] Univers 00:00:00 00:00:00 of Care Edna Wills 350.1.13.10 ity of [place] 4.2.7.2.686 [place] [phone] [facility] [address] [place] 2019-10-31 2019-10-31 Emergency Eileen [facility] 1.2.668.163 [id number] Univers 16:01:00 18:16:00 Leroy Trevizo 350.1.13.10 i ty of [place] 4.2.7.2.686 [place] Gay [phone] [facility] [address] [place] 2019-10-31 2019-10-31 Telemedici Beth Kang [facility] 1.2.840 .114 [id number] Univers 05:43:53 13:27:24 ne Visit Unknown, Attending SPECIALTY 350.1.13 .10 ity of CARE 4.2.7.2.686 [facility] AT [phone] De dread MESSER [address] [place] [address] 2019-10-31 2019-10-31 Outpatient R UNKNOWN, [facility] [id number] Univers 10:00:00 10:00:00 ATTENDING ity of [facility] 2019-10-31 2019-10-31 Telephone [facility] 1.2.913.187 [id number] Univers 00:00:00 00:00:00 [facility] 350.1.13.10 it y of [place] 4.2.7.2.686 [place] as Professio [phone] De nancyme ayaan 044 [facility] 2019-10-30 2019-10-30 Telephone [facility] 1.2.389.167 [id number] Univers 00:00:00 00:00:00 [facility] 350.1.13.10 it y of [place] 4.2.7.2.686 [place] as Professio [phone] [address] 2019-10-29 2019-10-29 Emergency CacjyotiACOMA[facility] 1.2.085.967 [id number] Univers 20:08:00 22:13:00 Jane Trevizo 350.1.13.10 ity of [place] 4.2.7.2.686 [facility] [phone] [address] 2019-10-29 2019-10-29 Telemedici Care, Provider 12 - Adult U ent [facility] 1.2.840.114 [id number] Univers 18:20:00 18:40:00 ne Visit Unknown, Attending HEALTH 350.1.13.1 0 ity of [place] 4.2.7.2.686 [facility] [phone] [address] ([facility]) 2019-10-29 2019-10-29 Outpatient R UNKNOWN, [facility] [id number] Univers 18:20:00 18:20:00 ATTENDING ity of [facility] 2019-10-25 2019-10-25 Telephone [facility] 1.2.307.729 [id number] Univers 00:00:00 00:00:00 Tico Armenta 350.1.13.10 it y of [place] 4.2.7.2.686 [place] as Professio [phone] [address] 2019-10-25 2019-10-25 Reagandb RhoadesACOMA[facility] 1.2.840.114 [id number] Univers 00:00:00 00:00:00 Maximus Trevizo 350.1.13.10 i ty of [place] 4.2.7.2.686 [place] [phone] [address] 2019-10-24 2019-10-24 [facility] 1.2.840.114 [id number] Univers 16:15:00 23:59:00 Encounter Tico Trevizo 350.1.13.10 ity of [place] 4.2.7.2.686 [place] Gay [phone] [facility] [address] [place] [address] 2019-10-24 2019-10-24 Urgent Provider, [facility] Urgent Care [facility] 1.2.840.114 [id number] Univers 15:17:27 15:37:27 Care Tico Chi 350.1.13.10 ity of [place] 4.2.7.2.686 [place] as Professio [phone] [address] 2019-10-24 2019-10-24 [facility] [id number] Univers 15:20:00 15:20:[address] [facility] 2019-10-24 2019-10-24 Telephone [facility] 1.2.763.356 [id number] Univers 00:00:00 00:00:00 Tico Trevizo 350.1.13.10 i ty of [place] 4.2.7.2.686 [place] [phone] [address] 2019-10-23 2019-10-23 Outpatient Asplin_B VFP VFP [id number] 1-20 Village 11:19:00 11:19:00 [id number] Family Practic e 2019-10-10 2019-10-10 Telephone Shelby [facility] 1.2.840.114 [id number] Univers 00:00:00 00:00:00 Aly Marcial PRIMARY 350.1.13.10 i ty of CARE 4.2.7.2.686 [place] PAVILL[place] [phone] De dical [address] [place] 2019-09-26 2019-09-26 Refdb [facility]AC[facility] 1.2.840.114 [id number] Univers 00:00:00 00:00:00 Tico Joseline 350.1.13.10 i ty of [place] 4.2.7.2.686 [place] [phone] De dical nal 044 [facility] 2019-09-16 2019-09-16 Outpatient Campos CORADO [facility] [id number] Univers 16:40:00 16:40:00 CALEB [facility] 2019-09-16 2019-09-16 Outpatient Asplin_B VFP VFP [id number] [facility] 10:07:00 10:07:00 [id number] Family Practic e 2019-09-15 2019-09-15 Outpatient Campos SANTIAGO [facility] [id number] Univers 17:00:00 17:00:00 FREDIRASHMI [facility] 2019-09-08 2019-09-08 Telephone JUAN Chi 1.2.809.602 [id number] Univers 00:00:00 00:00:00 Tico GARAY 350.1.13.10 it y of HOSPITAL 4.2.7.2.686 [place] as [phone] [address] 2019-09-08 2019-09-08 Patient Doctor JUAN 1.2.840.114 [id number] Univers 00:00:00 00:00:00 Secure Msg UnassignedSHAYY 350.1.13.10 ity of [place] [facility] 4.2.7.2.686 [place] as [phone] [address] 2019-09-06 2019-09-06 Urgent Pob1, Acute Care Clinic [facility] 1. 2.840.114 [id number] Univers 16:19:19 16:39:19 Care [facility] 350.1.13.10 ity of [place] 4.2.7.2.686 [place] as [place] [phone] De dical [facility] [address] [place] Office Building One 2019-09-06 2019-09-06 Outpatient R [facility] [id number] Univers 16:20:00 16:20:00 ity of [facility] 2019-09-06 2019-09-06 Outpatient R [facility] [id number] Univers 11:20:00 11:20:00 ity of [facility] 2019-09-06 2019-09-06 Patient Doctor JUAN 1.2.840.114 [id number] Univers 00:00:00 00:00:00 Secure Msg Unassigned, SHAYY 350.1.13.10 [facility] 4.2.7.2.686 [place] as [phone] [facility] [address] [place] 2019-08-23 2019-08-23 Outpatient R GRANT SHAFER [facility] [id number] Univers 15:00:00 15:00:00 GRANT SHAFER ity of [facility] 2019-08-23 2019-08-23 Telemedici HAY Shafer 1.2.840.114 [id number] Univers 08:11:53 08:41:53 ne Visit Grant [facility] 350.1.13.10 ity of CLINICS 4.2.7.2.686 [place] [phone] [facility] [address] [place] 2019-08-20 2019-08-20 Outpatient [facility] [id number] Univers 17:00:00 17:00:00 MURALI ity of [facility] 2019-08-15 2019-08-15 Transition Kalyani Dubois 1.2.840.114 [id number] Univers 00:00:00 00:00:00 of Care Edna Wills 350.1.13.10 ity of [place] 4.2.7.2.686 [place] [phone] [facility] [address] 2019-08-13 2019-08-13 Emergency [facility] 1.2.546.008 [id number] Univers 18:39:45 20:15:00 Wamercedez [place] 350.1.13.10 ity of [place] 4.2.7.2.686 [place] [phone] [facility] [address] [place] 2019-08-13 2019-08-13 Orders Doctor JUAN 1.2.840.114 [id number] Univers 00:00:00 00:00:00 Only Unassigned, SHAYY 350.1.13.10 ity of [place] [facility] 4.2.7.2.686 [place] as [phone] [facility] [address] [place] 2019-08-01 2019-08-01 Telephone [facility] 1.2.840.114 [id number] Univers 00:00:00 00:00:00 Grant Koo Joseline 350.1.13.10 ity of [place] 4.2.7.2.686 [place] [phone] [facility] 092 [facility] 2019-07-25 2019-07-25 Keily R NATALY [facility] [id number] Univers 15:00:00 15:00:00 TEO ity of [facility] 2019-07-16 2019-07-16 Telephone [facility] 1.2.089.602 [id number] Univers 00:00:00 00:00:00 Tico [place] 350.1.13.10 i ty of [place] 4.2.7.2.686 [place] [phone] De dical nal 044 [facility] 2019-07-11 2019-07-11 Telephone [facility] 1.2.439.753 [id number] Univers 00:00:00 00:00:00 [facility] 350.1.13.10 it y of [place] 4.2.7.2.686 [place] as Professio [phone] De dical nal 044 [place] Office [facility] 2019-06-20 2019-06-20 Telephone [facility] 1.2.415.036 [id number] Univers 00:00:00 00:00:00 [facility] 350.1.13.10 it y of [place] 4.2.7.2.686 [place] as Professio [phone] De dical nal 044 [place] Office [facility] 2019-06-16 2019-06-16 Telephone [facility] 1.2.840.114 [id number] Univers 00:00:00 00:00:00 Grant Trevizo 350.1.13.10 ity of [place].7.2.[place] [phone] [facility] 092 [facility] 2019-06-14 2019-06-14 Outpatient R COUNTS INCLUDE 234 [facility] [id number] Univers 12:43:28 23:59:00 KYA ity o f [facility] 2019-06-14 2019-06-14 [facility] 1.2.840.114 [id number] Univers 12:30:00 23:59:00 Encounter Kya Trevizo 350.1.13.10 ity of [place] 4.2.7.2.686 [place] Gay [phone] [facility] [address] [place] 2019-06-14 2019-06-14 Orders Doctor JUAN 1.2.840.114 [id number] Univers 00:00:00 00:00:00 Only Unassigned, SHAYY 350.1.13.10 ity of [place] HOSPITAL 4.2.7.2.686 [place] as [phone] [facility] [address] [place] 2019-06-13 2019-06-13 Refill [facility] 1.2.840.114 [id number] Univers 00:00:00 00:00:00 Jose Trevizo 350.1.13.10 i ty of [place] 4.2.7.2.686 [place] [phone] De dical nal 134 [facility] 2019-06-11 2019-06-11 Patient Doctor JUAN 1.2.840.114 [id number] Univers 00:00:00 00:00:00 Secure Msg Unassigned, SHAYY 350.1.13.10 ity of [place] HOSPITAL 4.2.7.2.686 [place] as [phone] [facility] [address] [place] 2019-06-09 2019-06-09 Telephone [facility] 1.2.840.114 [id number] Univers 00:00:00 00:00:00 Grant Gene [place] 350.1.13.10 ity of [place] 4.2.7.2.686 [place] [phone] De dical nal 092 [facility] 2019-06-06 2019-06-06 Outpatient R NASEEM GRANT [facility] [id number] Univers 10:40:00 10:40:00 NASEEMGRANT Tejeda ity of [facility] 2019-06-06 2019-06-06 Telephone [facility] 1.2.536.876 [id number] Univers 00:00:00 00:00:00 [facility] 350.1.13.10 it y of [place] 4.2.7.2.686 [place] as Professio [phone] De dical nal 044 [place] Office [facility] 2019-06-06 2019-06-06 Patient Alon [facility] 1.2.840.114 [id number] Univers 00:00:00 00:00:00 Secure Msg [facility] 350.1.13.10 ity of [place] 4.2.7.2.686 [place] as Professio [phone] De dical nal 044 [place] Office [facility] 2019-06-06 2019-06-06 Patient Doctor [facility] 1.2.840.114 [id number] Univers 00:00:00 00:00:00 Secure Msg Unassigned, Health 350.1.13.10 ity of [place] 4.2.7.2.686 [place] as Professio [phone] De dical nal 044 [place] Office [facility] 2019-06-05 2019-06-05 Refill [facility] 1.2.840.114 [id number] Univers 00:00:00 00:00:00 [facility] 350.1.13.10 it y of [place] 4.2.7.2.686 [place] as Professio [phone] De dical nal 044 [place] Office [facility] 2019-06-03 2019-06-03 Patient Doctor JUAN 1.2.840.114 [id number] Univers 00:00:00 00:00:00 Secure Msg Unassigned, SHAYY 350.1.13.10 ity of [place] [facility] 4.2.7.2.686 [place] as [phone] [address] 2019-06-02 2019-06-02 Office Alon [facility] 1.2.840.114 [id number] Univers 11:27:23 13:40:24 Visit Tico [facility] 350.1.13.10 it y of [place] 4.2.7.2.686 [place] as Professio [phone] De dical nal 0[address] [place] Office [facility] 2019-06-02 2019-06-02 Office Carmen Mcclain [facility] 1.2.840.114 [id number] Univers 10:14:12 10:29:12 Visit AmieOlya [facility] 350.1.13.10 ity of Surgical 4.2.7.2.686 [place] as Specialti [phone] De dical es 198 [facility] 2019-06-02 2019-06-02 Outpatient [facility] [id number] Univers 10:15:00 10:15:00 OLYA ity of [facility] 2019-06-02 2019-06-02 Nurse JUAN Patel 1.2.840.114 [id number] Univers 00:00:00 00:00:00 Triage Cat GARAY 350.1.13.10 i ty of [facility] 4.2.7.2.686 [place] as [phone] [address] 2019-05-31 2019-05-31 Telephone Naseem [facility] 1.2.840.114 [id number] Univers 00:00:00 00:00:00 Grant [place] 350.1.13.10 ity of [place].7.2.[place] [phone] De dical nal 092 [facility] 2019-05-24 2019-05-24 Patient Doctor JUAN 1.2.840.114 [id number] Univers 00:00:00 00:00:00 Secure Msstephanie UnassSHAYY ortega 350.1.13.10 ity of [place] [facility] 4.2.7.2.686 [place] as [phone] [address] 2019-05-17 2019-05-17 Patient Orestes [facility] 1.2.840.114 [id number] Univers 00:00:00 00:00:00 Outreach Renetta [facility] 350.1.13.10 i ty of [place] 4.2.7.2.686 [place] as Professio [phone] [address] [employer] 2019-05-11 2019-05-11 Outpatient R [facility] [id number] Univers 13:40:00 14:48:32 PETER ity of [facility] 2019-05-11 2019-05-11 Office [facility] 1.2.840.114 [id number] Univers 13:32:39 14:48:32 Visit Maximus Joseline 350.1.13.10 i [place] [phone] [address] 2019-04-26 2019-04-26 Telephone [facility] 1.2.840.114 [id number] Univers 00:00:00 00:00:00 Maximus Trevizo 350.1.13.10 [place] [phone] [address] 2019-04-25 2019-04-25 Letter Neurology [facility] 1.2.840.114 [id number] Univers 00:00:00 00:00:00 (Out) HEALTH 350.1.13.10 i ty [place] [phone] [facility] [address] 2019-04-24 2019-04-24 [facility] 1.2.840.114 [id number] Univers 12:05:00 15:15:00 Encounter Olya Trevizo 350.1.13.10 [place] Surgical [phone] [facility] [address] 2019-04-24 2019-04-24 Transition Kalyani Tran 1.2.840.114 [id number] Univers 00:00:00 00:00:00 of Care Inocencio Wills 350.1.13.10 ity of [place]2.[place] [phone] [facility] [address] 2019-04-18 2019-04-21 Hospital Mao Rodrigues 1.2.840.114 [id number] Univers 08:40:00 13:03:00 Encounter S Shayy 350.1.13.10 ity of [facility] 4.2.7.2.686 [place] as [phone] [facility] [address] [place] 2019-04-19 2019-04-19 Telephone Chloe Reese [facility] 1.2.840.114 [id number] Univers 00:00:00 00:00:00 Cam Joseline 350.1.13.10 i [place] [phone] De dical nal 134 [facility] 2019-04-18 2019-04-18 Outpatient R MAO RODRIGUES [facility] [id number] Univers 08:30:00 08:30:00 ity of [facility] 2019-04-14 2019-04-14 [facility] 1.2.840.114 [id number] Univers 15:40:06 16:24:42 Visit [facility] 350.1.13.10 it y of [place] 4.2.7.2.686 [place] as Professio [phone] De dical nal 044 [facility] 2019-04-14 2019-04-14 Patient Cyn [facility] 1.2.840.114 [id number] Univers 00:00:00 00:00:00 Outreach Glenys [facility] 350.1.13.10 ity of [place] 4.2.7.2.686 [place] as Professio [phone] De dical nal [address] [place] Office [facility] 2019-04-14 2019-04-14 Telephone [facility] 1.2.840.114 [id number] Univers 00:00:00 00:00:00 Olya L [facility] 350.1.13.10 it y of Surgical 4.2.7.2.686 [place] as Specialti [phone] De dical es 198 [facility] 2019-04-14 2019-04-14 Telephone [facility] 1.2.840.114 [id number] Univers 00:00:00 00:00:00 Maximus Trevizo 350.1.13.10 i ty [place] [phone] De dical nal 044 [facility] 2019-04-13 2019-04-13 Refdb [facility] 1.2.043.940 [id number] Univers 00:00:00 00:00:00 Teo Trevizo 350.1.13.10 i [place] [phone] De dical nal 134 [facility] 2019-04-07 2019-04-07 Office [facility] 1.2.840.114 [id number] Univers 07:44:27 09:37:11 Visit Maximus Trevizo 350.1.13.10 i [place] [phone] [facility] nal [address] [place] [address] 2019-04-07 2019-04-07 Telephone [facility] 1.2.840.114 [id number] Univers 00:00:00 00:00:00 Maximus Trevizo 350.1.13.10 i [place] [phone] [facility] nal [address] [place] [address] 2019-04-03 2019-04-03 Outpatient O AMIE [facility] [id number] Univers 16:17:03 23:59:[address] [facility] 2018-12-09 2018-12-09 Telephone [facility] 1.2.840.114 [id number] Univers 00:00:00 00:00:00 Jose Trevizo 350.1.13.10 i [place] [phone] [facility] nal [address] [place] [address] 2018-11-29 2018-11-29 Routine Chloe Reese [facility] 1.2.711.980 [id number] Univers 16:02:20 16:42:16 Raleigh Trevizo 350.1.13.10 ity of Visit [place] [phone] [address] 2018-11-25 2018-11-25 Emergency Elijah, [facility] 1.2.461.882 [id number] Univers 21:54:39 22:48:00 Ranjit Trevizo 350.1.13.10 i [place] Gay [phone] [address] 2018-11-25 2018-11-25 Telephone Chloe Reese [facility] 1.2.840.114 [id number] Univers 00:00:00 00:00:00 Raleigh Trevizo 350.1.13.10 i [place] [phone] [address] 2018-11-25 2018-11-25 Nurse JUAN Elise 1.2.840.114 [id number] Univers 00:00:00 00:00:00 Triage Jackelinnupur GARAY 350.1.13.10 it y of [facility] 4.2.7.2.686 [place] as [phone] [facility] [address] [place] 2018-11-24 2018-11-24 Patient Kalyani Garcia 1.2.840.114 [id number] Univers 00:00:00 00:00:00 Outreach Roseanne Wills 350.1.13.10 ity of [place]2.7.2.[place] [phone] [facility] [address] [place] 2018-11-24 2018-11-24 Telephone Dunia [facility] 1.2.840.114 [id number] Univers 00:00:00 00:00:00 Jose Trevizo 350.1.13.10 i [place] [phone] [address] 2018-11-23 2018-11-23 Emergency Singer [facility] 1.2.235.635 [id number] Univers 13:27:49 19:20:00 Darryn Trevizo 350.1.13.10 i [place].2.[place] Gay [phone] [address] 2018-11-23 2018-11-23 Telephone Dunia [facility] 1.2.840.114 [id number] Univers 00:00:00 00:00:00 Jose Trevizo 350.1.13.10 i ty [place].2.[place] [phone] [address] 2018-11-20 2018-11-22 [facility] 1.2.840.114 [id number] Univers 15:12:00 19:15:00 Encounter Jose Trevizo 350.1.13.10 ity of [place].7.2.[place] [phone] [facility] [address] [place] 2018-11-20 2018-11-20 Nurse JUAN Cortes 1.2.840.114 [id number] Univers 00:00:00 00:00:00 Triage Renettazandra GARAY 350.1.13.10 it y of [facility] 4.2.7.2.686 [place] as [phone] [facility] [address] [place] 2018-11-20 2018-11-20 Orders Doctor JUAN 1.2.840.114 [id number] Univers 00:00:00 00:00:00 Only Unassigned, SHAYY 350.1.13.10 ity of [place] [facility] 4.2.7.2.686 [place] as [phone] [facility] [address] [place] 2018-11-18 2018-11-18 Routine Diclemente, [facility] 1.2.840.114 [id number] Univers 10:21:53 11:38:24 Jose Trevizo 350.1.13.10 ity [place] [phone] [address] 2018-11-14 2018-11-17 Routine Diclemente, [facility] 1.2.840.114 [id number] Univers 10:03:04 13:42:26 Jose Trevizo 350.1.13.10 ity of Visit [place].2.[place] [phone] [address] 2018-11-17 2018-11-17 Routine Diclemente, [facility] 1.2.840.114 [id number] Univers 12:09:08 13:31:39 Jose Trevizo 350.1.13.10 ity of Visit [place].2.[place] [phone] [facility] 134 [facility] 2018-11-14 2018-11-14 [facility] Chloe Reese [facility] 1.2.840.114 [id number] Univers 21:18:00 22:45:00 Encounter Raleigh Trevizo 350.1.13.10 ity of [place] 4.2.7.2.[place] [phone] [facility] [address] [place] 2018-11-14 2018-11-14 [facility] 1.2.840.114 [id number] Univers 11:26:24 21:17:00 Encounter Jose Trevizo 350.1.13.10 ity of [place] 4[place]2.7.2.[place] [phone] [facility] [address] [place] 2018-11-14 2018-11-14 Orders Doctor JUAN 1.2.840.114 [id number] Univers 00:00:00 00:00:00 Only Unassigned, SHAYY 350.1.13.10 ity of [place] [facility] 4.2.7.2.686 [place] as [phone] [facility] [address] [place] 2018-11-14 2018-11-14 Nurse JUAN Santos 1.2.840.114 [id number] Univers 00:00:00 00:00:00 Triage Rosy S SHAYY 350.1.13.10 ity of HOSPITAL 4.2.7.2.686 [place] as [phone] [facility] [address] [place] 2018-11-14 2018-11-14 Telephone [facility] 1.2.840.114 [id number] Univers 00:00:00 00:00:00 Jose Trevizo 350.1.13.10 i ty [place].2.[place] [phone] [facility] 134 [facility] 2018-11-10 2018-11-11 [facility] 1.2.840.114 [id number] Univers 14:24:00 17:00:00 Encounter Jose Trevizo 350.1.13.10 ity of [place] 4.2.7.2.[place] [phone] [facility] [address] [place] 2018-11-11 2018-11-11 Case [facility] 1.2.840.114 [id number] Univers 00:00:00 00:00:00 Management Jose Trevizo 350.1.13.10 ity of [place] 4.2.7.2.[place] Profess[place] [phone] [address] 2018-11-10 2018-11-10 [facility] 1.2.840.114 [id number] Univers 10:54:59 14:23:00 Encounter Jose Trevizo 350.1.13.10 ity of [place] 4.2.7.2.686 [place] [phone] [facility] [address] [place] 2018-11-10 2018-11-10 Routine [facility] 1.2.840.114 [id number] Univers 12:45:49 13:00:49 Jose Trevizo 350.1.13.10 ity of Visit [place] 4.2.7.2.[place] Profess[place] [phone] [address] 2018-11-07 2018-11-07 Patient ROSEMARY BeattyJOAQUINA 1.2.776.929 [id number] Univers 00:00:00 00:00:00 [facility] 350.1.13.10 ity of CLINICS 4.2.7.2.[place] [phone] [address] 2018-11-07 2018-11-07 Telephone [facility] 1.2.840.114 [id number] Univers 00:00:00 00:00:00 Jose Trevizo 350.1.13.10 i ty [place] 4.2.7.2.[place] [phone] [address] 2018-11-05 2018-11-05 Nurse JUAN Santos 1.2.840.114 [id number] Univers 00:00:00 00:00:00 Triage Rosy GARAY 350.1.13.10 ity of HOSPITAL 4.2.7.2.686 [place] as [phone] [facility] [address] 2018-11-03 2018-11-03 [facility] 1.2.840.114 [id number] Univers 10:55:07 23:59:00 Encounter Jose Trevizo 350.1.13.10 ity of [place] 4[place]2.7.2.686 [place] [phone] [facility] [address] [place] 2018-11-03 2018-11-03 Routine [facility] 1.2.840.114 [id number] [facility] 13:54:15 16:42:19 Jose Trevizo 350.1.13.10 ity of Visit [place]2.7.2.[place] Profess[place] [phone] [facility] 134 [facility] 2018-11-01 2018-11-01 Intensive Care Specialist 1, [facility] Us Room UNIVERSIT 1 .2.840.114 [id number] [facility] 13:11:27 15:24:28 Visit Tri, Bud R [facility] 350.1.13.10 ity of CLINICS 4.2.7.2.[place] [phone] [facility] [address] 2018-11-01 2018-11-01 [facility] 1.2.667.718 [id number] Univers 00:00:00 00:00:00 Secure Msg Gabby R Y [place] [facility] 350.1.13.10 ity of CLINICS 4.2.7.2.[place] [phone] [facility] [address] 2018-11-01 2018-11-01 [facility] 1.2.840.114 [id number] Univers 00:00:00 00:00:00 Jose Trevizo 350.1.13.10 i ty [place].2.7.2.[place] [phone] [facility] 134 [facility] 2018-10-31 2018-10-31 [facility] 1.2.840.114 [id number] Univers 10:58:00 12:45:00 Encounter Belem Trevizo 350.1.13.10 ity of [place] 4[place]2.7.2.686 [place] [phone] [place] [address] [place] 2018-10-28 2018-10-28 Routine Paulie, [facility] 1.2.840.114 70 [id number] Univers 08:14:34 15:50:40 Belem Trevizo 350.1.13.10 ity of Visit [place] 4.2.7.2.686 [place] Profess [phone] De dical [facility] 134 [facility] 2018-10-28 2018-10-28 Hospital Chloe Reese [facility] 1.2.840.114 [id number] Univers 10:33:30 14:55:00 Encounter Belem Apodaca 350.1.13.1 0 ity of [place] 4.2.7.2.686 [place] [phone] [place] [address] [place] 2018-10-28 2018-10-28 Patient Doctor JUAN 1.2.840.114 [id number] Univers 00:00:00 00:00:00 Secure Msg Unassigned, SHAYY 350.1.13.10 ity of [place] HOSPITAL 4.2.7.2.686 [place] as [phone] [facility] [address] 2018-10-24 2018-10-25 Routine Faculty, Moisés Parra [facility] 1.2 .840.114 [id number] Univers 10:00:19 11:32:24 Brandee Odom INDUSTRIAL RELATIONS ANALYST 350.1.1 3.10 ity of Visit REGIONAL 4.2.7.2.686 [place] as MATERNAL [phone] Med ical & CHILD [address] [facility] [place] 2018-10-25 2018-10-25 Patient HAY Beatty 1.2.411.130 [id number] Univers 00:00:00 00:00:00 Secure Msg Gabby R Y HEALTH 350.1.13.10 ity of CLINICS 4[place]2.7.2.[place] [phone] [facility] [address] [place] 2018-10-25 2018-10-25 Orders Doctor JUAN 1.2.840.114 [id number] Univers 00:00:00 00:00:00 Only Unassigned, SHAYY 350.1.13.10 ity of [place] HOSPITAL 4.2.7.2.686 [place] as [phone] [facility] [address] 2018-10-24 2018-10-24 Hospital Chloe Reese [facility] 1.2.840.114 [id number] Univers 13:33:00 15:30:00 Encounter Raleigh Trevizo 350.1.13.10 ity of [place] 4.2.7.2.[place] [phone] [facility] [address] 2018-10-24 2018-10-24 Outpatient Campos ODOM BRANDEE [facility] [id number] Univers 10:00:00 11:51:01 ity of [facility] 2018-10-24 2018-10-24 Telephone Dunia [facility] 1.2.840.114 [id number] Univers 00:00:00 00:00:00 Jose Trevizo 350.1.13.10 i ty of [place].2.7.2.[place] Profess[place] [phone] [facility] 134 [facility] 2018-10-24 2018-10-24 Telephone [facility] 1.2.840.114 [id number] Univers 00:00:00 00:00:00 Grant Trevizo 350.1.13.10 ity of [place] 4[place]2.7.2.[place] Profess[place] [phone] [facility] 092 [facility] 2018-10-21 2018-10-21 Intensive Care Specialist 1, Adc Lab [facility] 1.2.840.114 [id number] Univers 16:25:06 16:40:06 Visit Chloe Reese [place] Trevizo 350.1.13.10 ity of [place] 4.2.7.2.[place] Gay [phone] [facility] [address] 2018-10-21 2018-10-21 Routine Paulie [facility] 1.2.840.114 [id number] Univers 14:13:39 16:02:12 Belem Trevizo 350.1.13.10 ity of Visit [place] 4.2.7.2.[place] Profess[place] [phone] De dical nal 134 [facility] 2018-10-21 2018-10-21 Orders Doctor JUAN 1.2.840.114 [id number] Univers 00:00:00 00:00:00 Only Unassigned, SHAYY 350.1.13.10 ity of [place] HOSPITAL 4.2.7.2.686 [place] as [phone] [facility] [address] [place] 2018-10-20 2018-10-20 Hospital [facility] 1.2.840.114 [id number] Univers 10:59:20 23:59:00 Encounter Jose Joseline 350.1.13.10 ity of [place] 4[place].7.2.[place] [phone] [facility] [address] [place] 2018-10-12 2018-10-12 Patient Doctor JUAN 1.2.840.114 [id number] Univers 00:00:00 00:00:00 Secure Msg Unassigned, SHAYY 350.1.13.10 ity of [place] [facility] 4.2.7.2.686 [place] as [phone] [facility] [address] [place] 2018-09-30 2018-09-30 [facility] 1.2.793.565 [id number] [facility] 14:06:24 14:55:33 Visit Chris Wild Joseline 350.1.13.10 i ty of [place].2.7.2.[place] Profess[place] [phone] [facility] 220 [facility] 2018-09-14 2018-09-14 Out[facility] [id number] Univers 13:54:55 13:59:00 OLYA [facility] Results Test Description Test Time Test Comments Results Result Comments Source ACETAMINOPHEN 2022-03-11 00:28:27 Test Item Value Reference Range Interpretation Comme nts ACETAMINOP (test code = 5485387934) 10.0-30.0 L ADRIENNE (test code = ADRIENNE) Toxic: Greater than 200 ug/mL @ 4 hour post ingestion or greater than 50 ug/mL @ 12 hour post ingestion Lab Interpretation (test code = Abnormal 70110-8) [facility] 00:20:44 ALCOHOL<10mg/dL03/10/2022 6:20 PM [facility]<10 Kqpvfyrx82-180 Toxic>100 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 Analgesic and Antipyretic Use ? 20- 100 mg/L ? ? Anti-Inflammatory Use ? 100-250 mg/L Toxic Range: ? Greater than 300 mg/LUnHendrick Medical CenterCOMP. METABOLIC PANEL (34514)2022-03-11 00:17:50 Test Item Value Reference Range Interpretation Comments NA (test code = 138 mmol/L 135-145 1674213210) K (test code = 4.2 mmol/L 3.5-5.0 0317733198) CL (test code = 102 mmol/L 98-108 4215466746) CO2 TOTAL (test code = 32 mmol/L 23-31 H 3441866484) AGAP (test code = 2-16 7988753387) BUN (test code = 14 mg/dL 7-23 9614731272) GLUCOSE (test code = 57 mg/dL 70-110 L 2134735139) CREATININE (test code = 0.85 mg/dL 0.50-1.04 2281272371) TOTAL BILI (test code = 0.3 mg/dL 0.1-1.1 2446433201) CALCIUM (test code = 9.8 mg/dL 8.6-10.6 7187895651) T PROTEIN (test code = 6.8 g/dL 6.3-8.2 4160223433) ALBUMIN (test code = 4.2 g/dL 3.5-5.0 9589540558) ALK PHOS (test code = 66 U/L 34-122 1888988790) ALTv (test code = 12 U/L 5-35 1742-6) AST(SGOT) (test code = 15 U/L 13-40 4009834723) eGFR (test code = mL/min/1.73m2 4594003571) ADRIENNE (test code = ADRIENNE) Association of [...] tests). Lab Interpretation Abnormal (test code = 92437-3) [facility] WITH [id number] 00:11:30 Test Item Value Reference Range Interpretation Comments WBC (test code = See_Comment [Automated 9806-2) message] The sy stem which generated this result transmitted reference range : 4.30 - 11.10 10*3/?L. The reference range was not used to interpret this result as normal/abnormal . RBC (test code = See_Comment [Automated 480-6) message] The sy stem which generated this result transmitted reference range : 3.93 - 5.25 10*6/?L. The reference range was not used to interpret this result as normal/abnormal . HGB (test code = 12.2 g/dL 11.6-15.0 638-7) HCT (test code = 40.1 % 35.7-45.2 4544-3) MCV (test code = 94.8 fL 80.6-95.5 787-2) MCH (test code = 28.8 pg 25.9-32.8 785-6) MCHC (test code = 30.4 g/dL 31.6-35.1 L 786-4) RDW-SD (test code = 48.5 fL 39.0-49.9 59620-0) RDW-CV (test code = 13.9 % 12.0-15.5 788-0) PLT (test code = See_Comment [Automated 777-3) message] The sy stem which generated this result transmitted reference range : 166 - 358 10*3/ ?L. The reference r paulina was not used to interpret this result as normal/abnormal . MPV (test code = 10.6 fL 9.5-12.9 96527-8) NRBC/100 WBC (test See_Comment [Automat ed code = 2865237208) message] The system which generated this result transmitted reference range : 0.0 - 10.0 /100 WBCs. The refer ence range was not u sed to interpret th is result as normal/abnormal . NRBC x10^3 (test code See_Comment [Auto mated = 4047818591) message] The s ystem which generated this result transmitted reference range : 10*3/?L. The reference range was not used to interpret this result as normal/abnormal . GRAN MAT (NEUT) % 62.2 % (test code = 770-8) IMM GRAN % (test code 0.30 % = 8739043709) LYMPH % (test code = 27.1 % 736-9) MONO % (test code = 7.8 % 5905-5) EOS % (test code = 1.5 % 713-8) BASO % (test code = 1.1 % 706-2) GRAN MAT x10^3(ANC) 4.56 10*3/uL 1.88-7.09 (test code = 2886117215) IMM GRAN x10^3 (test 0.00-0.06 code = 4362611332) LYMPH x10^3 (test code 1.99 10*3/uL 1.32-3.29 = 731-0) MONO x10^3 (test code 0.57 10*3/uL 0.33-0.92 = 742-7) EOS x10^3 (test code = 0.11 10*3/uL 0.03-0.39 711-2) BASO x10^3 (test code 0.08 10*3/uL 0.01-0.07 H = 704-7) Lab Interpretation Abnormal (test code = 40572-2) [facility] [id number] 23:46:00 Test Item Value Reference Range Interpretation Comments POCT PREG (test code = 1605) NEGATIVE On board controls acceptable with present C Line (test code = 3574) POCT PREG LOT # (test code = 3575) [id number] POCT PREG TEST DATE (test 06/27/2023 code = 3576) Lab Interpretation (test code = Normal 84748-7) [facility] URINALYSIS W SPECIFIC [id number] 16:50:00 Test Item Value Reference Range Interpretation [...] U APPEAR (test code = clear 3267) [facility] URINALYSIS W SPECIFIC [id number] 16:50:00 Test Item Value Reference Range Interpretation [...] U APPEAR (test code = clear 3267) [facility]"
--- NOTE | 2022-09-28 21:02 | EDPHYS ---
Physician Documentation [facility] Name: Sharyn Franco Age: 42 yrs Sex: Female : 1980 Arrival Date: 09/28/2022 Time: 20:12 Bed 6 Private MD: ED Physician Gustavo Canales HPI: 09/28 20:51 This 42 yrs old Female presents to ER via Wheelchair with complaints of Ant guilherme bites. 20:51 The patient was bitten on the right arm and left arm. 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 - Social history:: Smoking status: Patient denies any tobacco usage or history of. ROS: 20:54 Constitutional: Negative for fever, chills, and weight loss, Eyes: Negative for injury, guilherme pain, redness, and discharge, ENT: Negative for injury, pain, and discharge, Neck: Negative for injury, pain, and swelling, Cardiovascular: Negative for chest pain, palpitations, and edema, Respiratory: Negative for shortness of breath, cough, wheezing, and pleuritic chest pain, Abdomen/GI: Negative for abdominal pain, nausea, vomiting, diarrhea, and constipation, : Negative for injury, bleeding, discharge, and swelling, MS/Extremity: Negative for injury and deformity, Neuro: Negative for headache, weakness, numbness, tingling, and seizure, Psych: Negative for depression, anxiety, suicide ideation, homicidal ideation, and hallucinations, Allergy/Immunology: Negative for hives, rash, and allergies, Endocrine: Negative for neck swelling, polydipsia, polyuria, polyphagia, and marked weight changes, Hematologic/Lymphatic: Negative for swollen nodes, abnormal bleeding, and unusual bruising. 20:54 Skin: Positive for rash, of the right arm and left arm. Exam: 20:54 Constitutional: This is a well developed, well nourished patient who is awake, alert, guilherme and in no acute distress. Head/Face: Normocephalic, atraumatic. Eyes: Pupils equal round and reactive to light, extra-ocular motions intact. Lids and lashes normal. Conjunctiva and sclera are non-icteric and not injected. Cornea within normal limits. Periorbital areas with no swelling, redness, or edema. ENT: Nares patent. No nasal discharge, no septal abnormalities noted. Tympanic membranes are normal and external auditory canals are clear. Oropharynx with no redness, swelling, or masses, exudates, or evidence of obstruction, uvula midline. Mucous membranes moist. Neck: Trachea midline, no thyromegaly or masses palpated, and no cervical lymphadenopathy. Supple, full range of motion without nuchal rigidity, or vertebral point tenderness. No Meningismus. Chest/axilla: Normal chest wall appearance and motion. Nontender with no deformity. No lesions are appreciated. Cardiovascular: Regular rate and rhythm with a normal S1 and S2. No gallops, murmurs, or rubs. Normal PMI, no JVD. No pulse deficits. Respiratory: Lungs have equal breath sounds bilaterally, clear to auscultation and percussion. No rales, rhonchi or wheezes noted. No increased work of breathing, no retractions or nasal flaring. Abdomen/GI: Soft, non-tender, with normal bowel sounds. No distension or tympany. No guarding or rebound. No evidence of tenderness throughout. Back: No spinal tenderness. No costovertebral tenderness. Full range of motion. Female : Normal external genitalia. Skin: Warm, dry with normal turgor. Normal color with no rashes, no lesions, and no evidence of cellulitis. Neuro: Awake and alert, GCS 15, oriented to person, place, time, and situation. Cranial nerves II-XII grossly intact. Motor strength 5/5 in all extremities. Sensory grossly intact. Cerebellar exam normal. Normal gait. Psych: Awake, alert, with orientation to person, place and time. Behavior, mood, and affect are within normal limits. 20:54 Skin: injury, bite(s), superficial, ant bites boths arms. Vital Signs: 20:33 BP 139 / 83; Pulse 90; Resp 18; Temp 98; Pulse Ox 100% on R/A; Weight 47.63 kg; Height mb9 5 ft. 5 in. ; Pain 10/10; 20:33 Body Mass Index 17.47 (47.63 kg, 165.1 cm) mb9 20:33 Pain Scale: Adult mb9 MDM: 20:[address] [facility] 20:55 Data reviewed: vital signs, nurses notes. Consideration of Admission/Observation guilherme Escalation of care including admission/observation considered. I considered the following discharge prescriptions or medication management in the emergency department Medications were administered in the Emergency Department. See MAR. Care significantly affected by the following chronic conditions: pcos, epilepsy, sciatica. Administered Medications: 21:14 Drug: diphenhydrAMINE IM 50 mg Route: IM; Site: left deltoid; jb4 21:14 Follow up: Response: Medication administered at discharge. jb4 21:14 Drug: Dexamethasone IM 10 mg Route: IM; Site: right deltoid; jb4 21:14 Follow up: Response: Medication administered at discharge. jb4 21:14 Drug: Famotidine PO 40 mg Route: PO; jb4 21:14 Follow up: Response: Medication administered at discharge. jb4 21:14 Drug: Ibuprofen PO 600 mg Route: PO; jb4 21:14 Follow up: Response: Medication administered at discharge. jb4 Disposition Summary: 09/28/22 21:01 Discharge Ordered Location: Home guilherme Problem: new guilherme Symptoms: have improved guilherme Condition: Stable guilherme Diagnosis - Insect bite (nonvenomous) of left upper arm guilherme - Insect bite (nonvenomous) of right upper arm guilherme - Low back pain - hx of transverse process fracture, lumbar guilherme Followup: guilherme - With: Private Physician - When: 2 - 3 days - Reason: Recheck today's complaints, Continuance of care, Re-evaluation by your physician Discharge Instructions: - Discharge Summary Sheet guilherme - Chronic Back Pain guilherme - Insect Bite, Adult, [id number] guilherme - Insect Bite, Adult guilherme - Musculoskeletal Pain guilherme Forms: - Medication Reconciliation Form [facility] - Thank You Letter guilherme - Antibiotic Education guilherme - Prescription Opioid Use [facility] - [email or web address] [facility] Prescriptions: - Benadryl 25 mg Oral Capsule - take 1 capsule by ORAL route every 6 hours As needed; 45 tablet; Refills: 0, guilherme Product Selection Permitted - Pepcid 20 mg Oral Tablet - take 1 tablet by ORAL route every 12 hours for 21 days; 42 tablet; Refills: 0, [facility] Product Selection Permitted - Medrol (Josesito) 4 mg Oral Tablets, Dose Pack - take 1 tablet by ORAL route as directed - follow package instructions; 1 guilherme packet; Refills: 0, Product Selection Permitted - Motrin IB 200 mg Oral Tablet - take 2 tablet by ORAL route every 6 hours As needed as needed with food; 40 guilherme tablet; Refills: 0, Product Selection Permitted Signatures: Gustavo Canales MD MD cha Bryson, James RN RN jb4 Brandee Noriega RN RN mb9
--- NOTE | 2022-09-28 21:02 | ER ---
Nurse's Notes [facility] Name: Sharyn Franco Age: 42 yrs Sex: Female : 1980 Arrival Date: 09/28/2022 Time: 20:12 Bed 6 Private MD: Diagnosis: Insect bite (nonvenomous) of left upper arm;Insect bite (nonvenomous) of right upper arm;Low back pain-hx of transverse process fracture, lumbar Presentation: 09/28 20:33 Chief complaint: Patient states: "I fell into a ant mound and got bit by a lot of black mb9 ants. I don't want to go home in pain and my back is still hurting. I want something for the pain". Coronavirus screen: Vaccine status: Patient reports receiving the 2nd dose of the covid vaccine. Ebola Screen: No symptoms or risks identified at this time. Initial Sepsis Screen: Does the patient meet any 2 criteria? No. Patient's initial sepsis screen is negative. Does the patient have a suspected source of infection? No. Patient's initial sepsis screen is negative. Risk Assessment: Do you want to hurt yourself or someone else? Patient reports no desire to harm self or others. Onset of symptoms was September 28, 2022. 20:33 Method Of Arrival: Wheelchair mb9 20:33 Acuity: LIS 4 mb9 Triage Assessment: 20:35 General: Appears uncomfortable, Behavior is anxious, crying. Pain: Complains of pain in mb9 back, right arm and left arm. Neuro: Level of Consciousness is awake, alert, obeys commands, Oriented to person, place, time, situation, Appropriate for age. Respiratory: Airway is patent Respiratory effort is even, unlabored, Respiratory pattern is regular, symmetrical. Derm: ant bites noted to bilateral upper and lower extremities. Musculoskeletal: Range of motion: intact in all extremities. 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 - Social history:: Smoking status: Patient denies any tobacco usage or history of. Screenin:36 [facility] ED Fall Risk Assessment (Adult) History of falling in the last 3 months, mb9 including since admission Yes- single mechanical fall (1 pt) Confusion or Disorientation No (0 pts) Intoxicated or Sedated No (0 pts) Impaired Gait No (0 pts) Mobility Assist Device Used No (0 pt) Altered Elimination No (0 pt) Score/Fall Risk Level 0 - 2 = Low Risk Oriented to surroundings, Maintained a safe environment, Educated pt \\T\\ family on fall prevention, incl call for assistance when getting out of bed. Abuse screen: Denies threats or abuse. Nutritional screening: No deficits noted. Tuberculosis screening: No symptoms or risk factors identified. Assessment: 21:15 Reassessment: Patient appears in no apparent distress at this time. Patient and/or jb4 family updated on plan of care and expected duration. Pain level reassessed. Patient is alert, oriented x 3, equal unlabored respirations, skin warm/dry/pink. Pt verbalized understanding of d/c and follow up instructions. given paper scrubs per request. D/c'ed to lobby to wait for ride home. Vital Signs: 20:33 BP 139 / 83; Pulse 90; Resp 18; Temp 98; Pulse Ox 100% on R/A; Weight 47.63 kg; Height mb9 5 ft. 5 in. ; Pain 10/10; 20:33 Body Mass Index 17.47 (47.63 kg, 165.1 cm) mb9 20:33 Pain Scale: Adult mb9 ED Course: 20:12 Patient arrived in ED. mr 20:26 Gustavo Canales MD is Attending Physician. guilherme 20:33 Arm band placed on. mb9 20:35 Triage completed. mb9 20:36 Placed in gown. Bed in low position. Call light in reach. Side rails up X 1. Client mb9 placed on continuous cardiac and pulse oximetry monitoring. NIBP monitoring applied. 21:15 No provider procedures requiring assistance completed. Patient did not have IV access jb4 during this emergency room visit. Administered Medications: 21:14 Drug: diphenhydrAMINE IM 50 mg Route: IM; Site: left deltoid; jb4 21:14 Follow up: Response: Medication administered at discharge. jb4 21:14 Drug: Dexamethasone IM 10 mg Route: IM; Site: right deltoid; jb4 21:14 Follow up: Response: Medication administered at discharge. jb4 21:14 Drug: Famotidine PO 40 mg Route: PO; jb4 21:14 Follow up: Response: Medication administered at discharge. jb4 21:14 Drug: Ibuprofen PO 600 mg Route: PO; jb4 21:14 Follow up: Response: Medication administered at discharge. jb4 Medication: 20:36 VIS not applicable for this client. mb9 Outcome: 21:01 Discharge ordered by . guilherme 21:15 Discharged to home ambulatory. jb4 21:15 Condition: stable 21:15 Discharge instructions given to patient, Instructed on discharge instructions, follow up and referral plans. medication usage, Demonstrated understanding of instructions, follow-up care, medications, Prescriptions given X 4. 21:16 Patient left the ED. jb4 Signatures: Gustavo Canales MD MD cha Rivera, Mary mr Bryson, James RN RN jb4 Hari, Brandee Albert RN RN mb9 Corrections: (The following items were deleted from the chart) 21:15 21:15 Reassessment: Patient appears in no apparent distress at this time. Patient jb4 and/or family updated on plan of care and expected duration. Pain level reassessed. Patient is alert, oriented x 3, equal unlabored respirations, skin warm/dry/pink. jb4
[2022-09-28 22:42] VITALS: BP 139/83; TEMP 98; O2SAT 100
== END 2022-09-28 21:16 | disposition home or self-care (01) ==
LOC: ER 20:12
DX: S40.862A Insect bite (nonvenomous) of left upper arm, initial encounter (principal); S40.861A Insect bite (nonvenomous) of right upper arm, initial encounter; M54.50 Low back pain, unspecified; S32.009S Unspecified fracture of unspecified lumbar vertebra, sequela; Z88.5 Allergy status to narcotic agent; Z88.8 Allergy status to other drugs, medicaments and biological substances
CPT/HCPCS: 96372; 99284

== ENCOUNTER 2022-11-27 13:45 | Emergency (ER) | payer OTHER ==
--- OUTSIDE RECORDS SUMMARY | 2022-11-27 14:02 | XMS REPORT | Continuity of Care Document ---
:1980 Author Organization [facility] t Address [address] [place] [address] Care Team Providers Name Role Phone Arik Benz MD Primary Care Physician [phone] ALY RYAN Attending Clinician Unavailable TEO INGRAM Attending Clinician Unavailable ARIK BENZ Attending Clinician Unavailable ALE TORRES Attending Clinician Unavailable Arik Benz MD Attending Clinician Doctor Unassigned, Armorel Attending Clinician Unavailable Donna Lopez MD Attending Clinician [phone] DONNA LOPEZ Attending Clinician Unavailable Gema Cruz LMSW Attending Clinician Teo Ingram PA-C Attending Clinician [facility] Attending Clinician Unavailable Unknown, Attending Attending Clinician Unavailable Abril Urias RN Attending Clinician Unavailable Lab, c Attending Clinician Unavailable Elle Owen MD Attending Clinician ERIC FERNANDEZ Attending Clinician Unavailable Eric Fernandez MD Attending Clinician [phone] ADELLE WEBSTER L Attending Clinician Unavailable Emilia Da Silva LVN Attending Clinician Unavailable Helen Ca RN Attending Clinician Unavailable KEITH YI Attending Clinician Unavailable Darryn Owusu DO Attending Clinician Keith Yi MD Attending Clinician Onel Conner MD Attending Clinician KIZZY SANTOS Attending Clinician Unavailable KIZZY SANTOS Attending Clinician Unavailable PATRICIA NEWELL Attending Clinician Unavailable Sheridan ACNPatricia Coronado Attending Clinician OLIVA STEPHENS Attending Clinician Unavailable CARMEN MCCLAIN Attending Clinician Unavailable Carmen Carlin Attending Clinician OLYA HOLLOWAY Attending Clinician Unavailable Lab, Ang - Db Attending Clinician Unavailable Trinidad Rosenberg RN Attending Clinician YOKO BRYANT Attending Clinician Unavailable Medhat RIGGINS, Sean Marcial Attending Clinician Miguel RIGGINS, Michelle Panchal Attending Clinician Aurora Driscoll MD Attending Clinician [...] 2, Adc Lab Attending Clinician Unavailable Fellow, Navin Garciac Rmchp Mfm Attending Clinician Unavailable Jet RIGGINS, Shira Jones Attending Clinician Pedro Luis Couch MD, Alyssia Attending Clinician [phone] Jones FOX RAISER, Myrtle Attending Clinician UNKNOWN, ATTENDING Attending Clinician Unavailable JAIDEN ROLON Attending Clinician Unavailable Rickey RN, Martha Attending Clinician Unavailable Clinic, [facility] Neurology Continuity Attending Clinician Unavail able Juan TAN, Analilia Scott Attending Clinician Unavailable Diego BASSP, Tita R Attending Clinician Jonny RIGGINS, Migdalia Blue Attending [...] Attending Clinician Justin Oconnor MD Attending Clinician Aspshay_Nickolas Attending Clinician Unavailable JUSTIN OCONNOR Attending Clinician Unavailable Edna Dubois Attending Clinician Eileen FOX RAISER, Leroy Attending Clinician Beth Kang MD Attending [...] Unavailable Mao Rodrigues MD Attending Clinician [facility] Attending Clinician Ranjit Ang Attending Clinician Jackelin Elise RN Attending Clinician Unavailable Roseanne Garcia RN Attending Clinician Unavailable Gabby Beatty RN Attending Clinician Unavailable 1, [facility] Usg Room Attending Clinician Unavailable Bud Bartlett Attending Clinician Belem Apodaca MD Attending Clinician [facility] Attending Clinician Unavailable Brandee Odom MD [...] Admitting Clinician JUMA MCDANIELS Admitting Clinician Unavailable Arslan RIGGINS, Juma Admitting Clinician Vick RIGGINS, Chloe Storey Admitting Clinician Jonny RIGGINS, Migdalia Blue Admitting Clinician Shelby RIGGINS, Aly Marcial Admitting Clinician Asplin_B Admitting Clinician Unavailable KYA YANG Admitting Clinician Unavailable Amie RIGGINS, Olya Maria Admitting Clinician Ravi RIGGINS, Mao Marcial Admitting Clinician MAO RODRIGUES Admitting Clinician Unavailable Dunia RIGGINS, Jose Admitting Clinician Paulie RIGGINS, eBlem Admitting Clinician OLYA HOLLOWAY Admitting Clinician Unavailable Payers Payer Name Policy Type Policy Number Effective Date Expiration Date Aggie baker [facility] [id number] 2018 00:00:00 [facility] [id number] (PPO) Problems Condition Condition Condition Status Onset Resolution Last Treating Co mments Source Name Details Category Date Date Treatment Clinician Date Attention Attention Disease Active Uni vers deficit deficit 3-13 ity of disorder disorder 00:00: [place] predominan predominan 00 Me dical t t Branch inattentiv inattentiv e type e type COVID-19 COVID[facility]19 [facility] Gestation[place] Gestationa Disease Active 2020-03 U nivers l l 2-27 [place] 00 [facility] trimester trimester Bran ch 37 weeks 37 weeks Disease Active 2020-03 Unive rs gestation gestation 2-27 ity of of of 00:00: [place] 00 [facility] Branch Non-reassu Non-reassu Disease Active 2020-03 U nivers ring ring 2-26 [place] monitoring monitoring Br anch tracing tracing Single Single Disease Active 2020-03 Univers liveborn, liveborn, 2-26 ity of born in born in 00:00: [place] [facility], [facility], 00 [facility] delivered delivered Bran ch by vaginal [...] of Disease Active U nivers pyelonephr pyelonephr 7- it y of itis itis 00:00: [place] during during Medical Bran ch 36 weeks 36 weeks Disease Active Unive rs gestation gestation 6-13 ity of of of 00:00: [place] 00 [facility] Branch High risk High risk Disease Active Uni vers , , 6-02 it y of multigravi multigravi 00:00: [place] [...] Branch Gastroesop Gastroesop Disease Active 2020-0 U nivers hageal hageal 1-10 ity of reflux reflux 00:00: [place] disease disease 00 Medical without without Branch esophagiti esophagiti s s Nausea and Nausea and Disease Active 2020-0 U nivers vomiting vomiting 1-10 ity of in in 00:00: [place] 00 [facility] Branch Migraine Migraine Disease Active 2019-0 Unive rs with aura with aura 1-10 [...] [place] [facility] Allergies, Adverse Reactions, Alerts Allergy Allergy Status [...] mayank ES Class 1-04 ity of 00:00: [address] Social History Social Habit Start Date Stop Date Quantity Comments Source Gender identity Universit y [facility] [place] [place] Sexual orientation Univer [facility] Alcohol intake 2022-10-21 2022-10-21 Ex-drinker [facility] 00:00:00 00:00:00 (finding) [facility] Exposure to 2022-08-11 2022-08-21 Not sure [facility] SARS-CoV-2 (event) 00:00:00 12:22:00 [facility] Tobacco Comment 2022-04-30 2022-04-30 N/A Universit y of 00:00:00 00:00:00 [facility] Tobacco use and 2022-04-30 2022-04-30 Smokeless Universit y of exposure 00:00:00 00:00:00 tobacco non-user [facility] History of Social 2022-01-27 2022-01-27 Univers ity of function 00:00:00 00:00:00 [facility] Sex [birth year] At [birth year] Universit y of 00:00:00 00:00:00 [facility] Smoking Status Start Date Stop Date Source Never smoked tobacco [facility] Medications Ordered Filled Start Stop Current Ordering Indication Dosage Frequency Signature Comments Components Source Medication Medication Date Date Medication? Clinician (SIG) Name Name clonazePAM 2022-0 Yes [id number] .5mg Take 1 U nivers 0.5 mg 8-24 tablet by ity of tablet 00:00: mouth in [place] 00 the Medical morning Branch and 1 tablet at noon and 1 tablet in the evening. clonazePAM 3-0 Yes [id number] .5mg Take 1 U nivers 0.5 mg 8-24 tablet by ity of tablet 00:00: mouth in [place] 00 the Medical morning Branch and 1 tablet at noon and 1 tablet in the evening. dextroamphe 3-0 Yes [id number] 20mg Take 1 Univers tamine-amph 7-31 tablet by ity of etamine 00:00: mouth in [place] ([facility]) 00 the Medical 20 mg morning Branch tablet and 1 tablet at noon and 1 tablet in the evening. dextroamphe 2022-0 Yes [id number] 20mg Take 1 Univers tamine-amph 7-31 tablet by ity of etamine 00:00: mouth in [place] ([facility]) 00 the Medical 20 mg morning Branch tablet and 1 tablet at noon and 1 tablet in the evening. dextroamphe 2022-0 Yes [id number] 20mg Take 1 Univers tamine-amph 7-31 tablet by ity of etamine 00:00: mouth in [place] ([facility]) 00 the Medical 20 mg morning Branch tablet and 1 tablet at noon and 1 tablet in the evening. dextroamphe 2022-0 Yes [id number] 20mg Take 1 Univers tamine-amph 7-31 tablet by ity of etamine 00:00: mouth in [place] [facility] the Medical 20 mg morning Branch tablet and 1 tablet at noon and 1 tablet in the evening. dextroamphe 3-0 3- No [id number] 20mg Take 1 Univers tamine-amph 7-31 07-31 tablet by it y of etamine 00:00: 00:00 mouth in [place] ([facility]) 00 :00 the Medical 20 mg morning Branch tablet and 1 tablet at noon and 1 tablet in the evening. ketorolac 3-0 Yes [id number] 10mg Take 1 U nivers 10 mg 7-26 tablet by ity of tablet 00:00: mouth [place] 00 every 6 Medical (six) Branch hours as needed (pain). dextroamphe 2023-0 Yes [id number] 20mg Take 1 Univers tamine-amph 7-26 tablet by ity of etamine 00:00: mouth in [place] [facility] the Medical 20 mg morning Branch tablet and 1 tablet at noon and 1 tablet in the evening. clonazePAM 2023-0 Yes [id number] 1mg Take 1 U nivers 1 mg tablet 7-26 tablet by ity of 00:00: mouth in [place] 00 the Medical morning Branch and 1 tablet at noon and 1 tablet in the evening. ketorolac 2023-0 Yes [id number] 10mg Take 1 U nivers 10 mg 7-26 tablet by ity of tablet 00:00: mouth [place] 00 every 6 Medical (six) Branch hours as needed (pain). dextroamphe 2023-0 Yes [id number] 20mg Take 1 Univers tamine-amph 7-26 tablet by ity of etamine 00:00: mouth in [place] ([facility]) 00 the Medical 20 mg morning Branch tablet and 1 tablet at noon and 1 tablet in the evening. clonazePAM 2023-0 Yes [id number] 1mg Take 1 U nivers 1 mg tablet 7-26 tablet by ity of 00:00: mouth in [place] 00 the Medical morning Branch and 1 tablet at noon and 1 tablet in the evening. ketorolac 2023-0 Yes [id number] 10mg Take 1 U nivers 10 mg 7-26 tablet by ity of tablet 00:00: mouth [place] 00 every 6 Medical (six) Branch hours as needed (pain). clonazePAM 2023-0 Yes [id number] 1mg Take 1 U nivers 1 mg tablet 7-26 tablet by ity of 00:00: mouth in [place] 00 the Medical morning Branch and 1 tablet at noon and 1 tablet in the evening. ketorolac 2023-0 Yes [id number] 10mg Take 1 U nivers 10 mg 7-26 tablet by ity of tablet 00:00: mouth [place] 00 every 6 Medical (six) Branch hours as needed (pain). clonazePAM 2023-0 Yes [id number] 1mg Take 1 U nivers 1 mg tablet 7-26 tablet by ity of 00:00: mouth in [place] 00 the Medical morning Branch and 1 tablet at noon and 1 tablet in the evening. ketorolac 2023-0 Yes [id number] 10mg Take 1 U nivers 10 mg 7-26 tablet by ity of tablet 00:00: mouth [place] 00 every 6 Medical (six) Branch hours as needed (pain). ketorolac 2023-0 Yes [id number] 10mg Take 1 U nivers 10 mg 7-26 tablet by ity of tablet 00:00: mouth [place] 00 every 6 Medical (six) Branch hours as needed (pain). ketorolac 3-0 Yes [id number] 10mg Take 1 U nivers 10 mg 7-26 tablet by ity of tablet 00:00: mouth [place] 00 every 6 Medical (six) Branch hours as needed (pain). clonazePAM 2022-0 2022- No [id number] 1mg Take 1 Univers 1 mg tablet 10-21 08-24 tablet by it y of 00:00: 00:00 mouth in [place] 00 :00 the Medical morning Branch and 1 tablet at noon and 1 tablet in the evening. dextroamphe 2022-0 2022- No [id number] 20mg Take 1 Univers tamine-amph 7-26 07-31 tablet by it y of etamine 00:00: 00:00 mouth in [place] ([facility]) 00 :00 the Medical 20 mg morning Branch tablet and 1 tablet at noon and 1 tablet in the evening. HYDROcodone 2022-0 Yes [id number] 1{tbl} Take 1 Un mayank -acetaminop 7-19 tablet by ity of hen ([place]) 00:00: mouth [place] 7.5-325 mg 00 every 8 Medica l per tablet (eight) Branch hours as needed for Pain. Indication s: acute pain HYDROcodone 2022-0 Yes [id number] 1{tbl} Take 1 Un mayank -acetaminop 7-19 tablet by ity of hen ([place]) 00:00: mouth [place] 7.5-325 mg 00 every 8 Medica l per tablet (eight) Branch hours as needed for Pain. Indication s: acute pain HYDROcodone 2022-0 Yes [id number] 1{tbl} Take 1 Un mayank -acetaminop 7-19 tablet by ity of hen ([place]) 00:00: mouth [place] 7.5-325 mg 00 every 8 Medica l per tablet (eight) Branch hours as needed for Pain. Indication s: acute pain HYDROcodone 3-0 Yes [id number] 1{tbl} Take 1 Un mayank -acetaminop 7-19 tablet by ity of hen ([place]) 00:00: mouth [place] 7.5-325 mg 00 every 8 Medica l per tablet (eight) Branch hours as needed for Pain. Indication s: acute pain HYDROcodone 3-0 Yes [id number] 1{tbl} Take 1 Un mayank -acetaminop 7-19 tablet by ity of hen ([place]) 00:00: mouth [place] 7.5-325 mg 00 every 8 Medica l per tablet (eight) Branch hours as needed for Pain. Indication s: acute pain HYDROcodone 2022-0 Yes [id number] 1{tbl} Take 1 Un mayank -acetaminop 7-19 tablet by ity of hen ([place]) 00:00: mouth [place] 7.5-325 mg 00 every 8 Medica l per tablet (eight) Branch hours as needed for Pain. Indication s: acute pain HYDROcodone 2022-0 Yes [id number] 1{tbl} Take 1 Un mayank -acetaminop 7-19 tablet by ity of hen ([place]) 00:00: mouth [place] 7.5-325 mg 00 every 8 Medica l per tablet (eight) Branch hours as needed for Pain. Indication s: acute pain HYDROcodone 3-0 Yes [id number] 1{tbl} Take 1 Un mayank -acetaminop 7-19 tablet by ity of hen ([place]) 00:00: mouth [place] 7.5-325 mg 00 every 8 Medica l per tablet (eight) Branch hours as needed for Pain. Indication s: acute pain HYDROcodone 3-0 Yes [id number] 1{tbl} Take 1 Un mayank -acetaminop 7-19 tablet by ity of hen ([place]) 00:00: mouth [place] 7.5-325 mg 00 every 8 Medica l per tablet (eight) Branch hours as needed for Pain. Indication s: acute pain TRAZODONE 2023-0 Yes [id number] TAKE 1 Uni vers 50 mg 7-14 TABLET BY ity of tablet 00:00: MOUTH [place] 00 EVERYDAY Medical AT BEDTIME Branch TRAZODONE 2023-0 Yes [id number] TAKE 1 Uni vers 50 mg 7-14 TABLET BY ity of tablet 00:00: MOUTH EVERYDAY Medical AT BEDTIME Branch TRAZODONE 2022-0 Yes [id number] TAKE 1 Uni vers 50 mg 7-14 TABLET BY ity of tablet 00:00: MOUTH EVERYDAY Medical AT BEDTIME Branch TRAZODONE 2022-0 Yes [id number] TAKE 1 Uni vers 50 mg 7-14 TABLET BY ity of tablet 00:00: MOUTH EVERYDAY Medical AT BEDTIME Branch TRAZODONE 2022-0 Yes [id number] TAKE 1 Uni vers 50 mg 7-14 TABLET BY ity of tablet 00:00: MOUTH EVERYDAY Medical AT BEDTIME Branch TRAZODONE 2022-0 Yes [id number] TAKE 1 Uni vers 50 mg 7-14 TABLET BY ity of tablet 00:00: MOUTH EVERYDAY Medical AT BEDTIME Branch TRAZODONE 2022-0 Yes [id number] TAKE 1 Uni vers 50 mg 7-14 TABLET BY ity of tablet 00:00: MOUTH EVERYDAY Medical AT BEDTIME Branch TRAZODONE 2022-0 Yes [id number] TAKE 1 Uni vers 50 mg 7-14 TABLET BY ity of tablet 00:00: MOUTH EVERYDAY Medical AT BEDTIME Branch TRAZODONE 2022-0 Yes [id number] TAKE 1 Uni vers 50 mg 7-14 TABLET BY ity of tablet 00:00: MOUTH EVERYDAY Medical AT BEDTIME Branch TRAZODONE 2022-0 Yes [id number] TAKE 1 Uni vers 50 mg 7-14 TABLET BY ity of tablet 00:00: MOUTH EVERYDAY Medical AT BEDTIME Branch TRAZODONE 2022-0 Yes [id number] TAKE 1 Uni vers 50 mg 7-14 TABLET BY ity of tablet 00:00: MOUTH EVERYDAY Medical AT BEDTIME Branch HYDROcodone 2022-0 Yes [id number] 1{tbl} Take 1 Un mayank -acetaminop 7-11 tablet by ity of hen ([place]) 00:00: mouth [place] 7.5-325 mg 00 every 8 Medica l per tablet (eight) Branch hours as needed for Pain. Indication s: acute pain HYDROcodone 0 Yes [id number] 1{tbl} Take 1 Un mayank -acetaminop 7-11 tablet by ity of hen ([place]) 00:00: mouth [place] 7.5-325 mg 00 every 8 Medica l per tablet (eight) Branch hours as needed for Pain. Indication s: acute pain HYDROcodone 2023-0 Yes [id number] 1{tbl} Take 1 Un mayank -acetaminop 7-11 tablet by ity of hen ([place]) 00:00: mouth [place] 7.5-325 mg 00 every 8 Medica l per tablet (eight) Branch hours as needed for Pain. Indication s: acute pain HYDROcodone 2023-0 Yes [id number] 1{tbl} Take 1 Un mayank -acetaminop 7-11 tablet by ity of hen [place] 00:00: mouth [place] 7.5-325 mg 00 every 8 Medica l per tablet (eight) Branch hours as needed for Pain. Indication s: acute pain HYDROcodone 3-0 Yes [id number] 1{tbl} Take 1 Un mayank -acetaminop 7-11 tablet by ity of hen ([place]) 00:00: mouth [place] 7.5-325 mg 00 every 8 Medica l per tablet (eight) Branch hours as needed for Pain. Indication s: acute pain HYDROcodone 3-0 2023- No 4647 1{tbl} Take 1 U nivers -acetaminop 7-11 07-19 tablet by it y of hen ([place]) 00:00: 00:[place] 7.5-325 mg 00 :00 every 8 Medica l per tablet (eight) Branch hours as needed for Pain. Indication s: acute pain HYDROcodone 3-0 2023- No 4647 1{tbl} Take 1 U nivers -acetaminop 7-11 07-19 tablet by it y of hen ([place]) 00:00: 00:[place] 7.5-325 mg 00 :00 every 8 Medica l per tablet (eight) Branch hours as needed for Pain. Indication s: acute pain HYDROcodone 2023-0 Yes [id number] 1{tbl} Take 1 Un mayank -acetaminop 7-05 tablet by ity of hen ([place]) 00:00: mouth [place] 7.5-325 mg 00 every 8 Medica l per tablet (eight) Branch hours as needed for Pain. Indication s: acute pain HYDROcodone 2023-0 Yes [id number] 1{tbl} Take 1 Un mayank -acetaminop 7-05 tablet by ity of hen ([place]) 00:00: mouth [place] 7.5-325 mg 00 every 8 Medica l per tablet (eight) Branch hours as needed for Pain. Indication s: acute pain HYDROcodone 2022-0 2022- No 4647 1{tbl} Take 1 U nivers -acetaminop 7-05 07-11 tablet by it y of hen ([place]) 00:00: 00:00 [place] 7.5-325 mg 00 :00 every 8 Medica l per tablet (eight) Branch hours as needed for Pain. Indication s: acute pain HYDROcodone 2022-0 2022- No 4647 1{tbl} Take 1 U nivers -acetaminop 7-05 07-11 tablet by it y of hen ([place]) 00:00: 00:[place] 7.5-325 mg 00 :00 every 8 Medica l per tablet (eight) Branch hours as needed for Pain. Indication s: acute pain HYDROcodone 2022-0 2022- No 4647 1{tbl} Take 1 U nivers -acetaminop 7-05 07-11 tablet by it y of hen ([place]) 00:00: 00:[place] 7.5-325 mg 00 :00 every 8 Medica l per tablet (eight) Branch hours as needed for Pain. Indication s: acute pain HYDROcodone 2022-0 2022- No 4647 1{tbl} Take 1 U nivers -acetaminop 7-05 07-05 tablet by it y of hen ([place]) 00:00: 00:[place] 7.5-325 mg 00 :00 every 8 Medica l per tablet (eight) Branch hours as needed for Pain. Indication s: acute pain CLONAZEPAM 2023-0 Yes [id number] 1mg TAKE 1 Univers 1 mg tablet 6-28 TABLET BY ity of 00:00: MOUTH IN [place] 00 THE Medical MORNING Branch AND 1 TABLET AT NOON AND 1 TABLET IN THE EVENING. CLONAZEPAM 2023-0 Yes [id number] 1mg TAKE 1 Univers 1 mg tablet 6-28 TABLET BY ity of 00:00: MOUTH IN [place] 00 THE Medical MORNING Branch AND 1 TABLET AT NOON AND 1 TABLET IN THE EVENING. HYDROcodone 3-0 Yes [id number] 1{tbl} Take 1 Un mayank -acetaminop 6-28 tablet by ity of hen ([place]) 00:00: mouth [place] 7.5-325 mg 00 every 8 Medica l per tablet (eight) Branch hours as needed for Pain. Indication s: acute pain CLONAZEPAM 2023-0 Yes [id number] 1mg TAKE 1 Univers 1 mg tablet 6-28 TABLET BY ity of 00:00: MOUTH IN [place] 00 THE Medical MORNING Branch AND 1 TABLET AT NOON AND 1 TABLET IN THE EVENING. CLONAZEPAM 2023-0 Yes [id number] 1mg TAKE 1 Univers 1 mg tablet 6-28 TABLET BY ity of 00:00: MOUTH IN [place] 00 THE Medical MORNING Branch AND 1 TABLET AT NOON AND 1 TABLET IN THE EVENING. CLONAZEPAM 2023-0 Yes [id number] 1mg TAKE 1 Univers 1 mg tablet 6-28 TABLET BY ity of 00:00: MOUTH IN [place] 00 THE Medical MORNING [place] AND 1 TABLET AT NOON AND 1 TABLET IN THE EVENING. CLONAZEPAM 2023-0 Yes [id number] 1mg TAKE 1 Univers 1 mg tablet 6-28 TABLET BY ity of 00:00: MOUTH IN [place] 00 THE Medical MORNING [place] AND 1 TABLET AT NOON AND 1 TABLET IN THE EVENING. CLONAZEPAM 2023-0 Yes [id number] 1mg TAKE 1 Univers 1 mg tablet 6-28 TABLET BY ity of 00:00: MOUTH IN [place] 00 THE Medical MORNING [place] AND 1 TABLET AT NOON AND 1 TABLET IN THE EVENING. CLONAZEPAM 2023-0 Yes [id number] 1mg TAKE 1 Univers 1 mg tablet 6-28 TABLET BY ity of 00:00: MOUTH IN [place] 00 THE Medical MORNING [place] AND 1 TABLET AT NOON AND 1 TABLET IN THE EVENING. CLONAZEPAM 2023-0 Yes [id number] 1mg TAKE 1 Univers 1 mg tablet 6-28 TABLET BY ity of 00:00: MOUTH IN [place] [address] THE Medical MORNING Bow AND 1 TABLET AT NOON AND 1 TABLET IN THE EVENING. CLONAZEPAM 2023-0 Yes [id number] 1mg TAKE 1 Univers 1 mg tablet 6-28 TABLET BY ity of 00:00: MOUTH IN [place] [address] THE Medical MORNING Bow AND 1 TABLET AT NOON AND 1 TABLET IN THE EVENING. CLONAZEPAM 2023-0 Yes [id number] 1mg TAKE 1 Univers 1 mg tablet 6-28 TABLET BY ity of 00:00: MOUTH IN [place] [address] THE [facility] MORNING Branch AND 1 TABLET AT NOON AND 1 TABLET IN THE EVENING. CLONAZEPAM 2022-0 Yes [id number] 1mg TAKE 1 Univers 1 mg tablet - TABLET BY ity of 00:00: MOUTH IN [place] 00 THE Medical MORNING Branch AND 1 TABLET AT NOON AND 1 TABLET IN THE EVENING. CLONAZEPAM 2022-0 2022- No [id number] 1mg TAKE 1 Univers 1 mg tablet 09-23- TABLET BY it y of 00:00: 00:00 MOUTH IN [place] 00 :00 THE Medical MORNING Branch AND 1 TABLET AT NOON AND 1 TABLET IN THE EVENING. CLONAZEPAM 2022-0 2022- No [id number] 1mg TAKE 1 Univers 1 mg tablet 09-23- TABLET BY it y of 00:00: 00:00 MOUTH IN [place] 00 :00 THE Medical MORNING Branch AND 1 TABLET AT NOON AND 1 TABLET IN THE EVENING. HYDROcodone 2022-0 2022- No [id number] 1{tbl} Take 1 U nivers -acetaminop 6-28 07-05 tablet by it y of hen ([place]) 00:00: 00[place] 7.5-325 mg 00 :00 every 8 Medica l per tablet (eight) Branch hours as needed for Pain. Indication s: acute pain HYDROcodone 2022-0 Yes [id number] 1{tbl} Take 1 Un mayank -acetaminop 6-21 tablet by ity of hen ([place]) 00:00: mouth [place] 7.5-325 mg 00 every 8 Medica l per tablet (eight) Branch hours as needed for Pain. Indication s: acute pain HYDROcodone 2022-0 Yes [id number] 1{tbl} Take 1 Un mayank -acetaminop 6-21 tablet by ity of hen ([place]) 00:00: mouth [place] 7.5-325 mg 00 every 8 Medica l per tablet (eight) Branch hours as needed for Pain. Indication s: acute pain HYDROcodone 2022-0 2022- No [id number] 1{tbl} Take 1 U nivers -acetaminop 6-21 06-28 tablet by it y of hen ([place]) 00:00: [place] 7.[place] mg [...] Indication s: acute pain dextroamphe 2023-0 Yes [id number] 20mg Take 1 Univers tamine-amph 6-07 tablet [...] Indication s: acute pain dextroamphe 2023-0 Yes [id number] 20mg Take 1 Univers tamine-amph 6-07 tablet [...] Indication s: acute pain dextroamphe 2023-0 Yes [id number] 20mg Take 1 Univers tamine-amph 6-07 tablet [...] Indication s: acute pain dextroamphe 2023-0 Yes [id number] 20mg Take 1 Univers tamine-amph 6-07 tablet [...] Indication s: acute pain dextroamphe 2023-0 Yes [id number] 20mg Take 1 Univers tamine-amph 6-07 tablet [...] Indication s: acute pain dextroamphe 2023-0 Yes [id number] 20mg Take 1 Univers tamine-amph 6-07 tablet [...] Indication s: acute pain dextroamphe 2023-0 Yes [id number] 20mg Take 1 Univers tamine-amph 6-07 tablet [...] Indication s: acute pain dextroamphe 2023-0 Yes [id number] 20mg Take 1 Univers tamine-amph 6-07 tablet by ity of etamine 00:00: mouth in [place] [facility] the Medical 20 mg morning Branch tablet and 1 tablet at noon and 1 tablet in the evening. dextroamphe 2023-0 Yes [id number] 20mg Take 1 Univers tamine-amph 6-07 tablet by ity of etamine 00:00: mouth in [place] ([facility] 00 the Medical 20 mg morning Branch tablet and 1 tablet at noon and 1 tablet in the evening. dextroamphe 2023-0 Yes [id number] 20mg Take 1 Univers tamine-amph 6-07 tablet by ity of etamine 00:00: mouth in [place] ([facility] 00 the Medical 20 mg morning Branch tablet and 1 tablet at noon and 1 tablet in the evening. dextroamphe 2023-0 Yes [id number] 20mg Take 1 Univers tamine-amph 6-07 tablet by ity of etamine 00:00: mouth in [place] ([facility]) 00 the Medical 20 mg morning Branch tablet and 1 tablet at noon and 1 tablet in the evening. dextroamphe 2023-0 Yes [id number] 20mg Take 1 [facility] tamine-amph 6-07 tablet by ity of etamine 00:00: mouth in [place] ([facility]) 00 the Medical 20 mg morning Branch tablet and 1 tablet at noon and 1 tablet in the evening. dextroamphe 2023-0 Yes [id number] 20mg Take 1 [facility] tamine-amph 6-07 tablet by ity of etamine 00:00: mouth in [place] ([facility]) 00 the Medical 20 mg morning Branch tablet and 1 tablet at noon and 1 tablet in the evening. dextroamphe 2023-0 Yes [id number] 20mg Take 1 [facility] tamine-amph 6-07 tablet by ity of etamine 00:00: mouth in [place] ([facility]) 00 the Medical 20 mg morning Branch tablet and 1 tablet at noon and 1 tablet in the evening. dextroamphe 2023-0 Yes [id number] 20mg Take 1 [facility] tamine-amph 6-07 tablet by ity of etamine 00:00: mouth in [place] ([facility]) 00 the Medical 20 mg morning Branch tablet and 1 tablet at noon and 1 tablet in the evening. dextroamphe 2023-0 Yes [id number] 20mg Take 1 [facility] tamine-amph 6-07 tablet by ity of etamine 00:00: mouth in [place] ([facility]) 00 the Medical 20 mg morning Branch tablet and 1 tablet at noon and 1 tablet in the evening. dextroamphe 2023-0 Yes [id number] 20mg Take 1 [facility] tamine-amph 6-07 tablet by ity of etamine 00:00: mouth in [place] ([facility]) 00 the Medical 20 mg morning Branch tablet and 1 tablet at noon and 1 tablet in the evening. dextroamphe 2023-0 Yes [id number] 20mg Take 1 [facility] tamine-amph 6-07 tablet by ity of etamine 00:00: mouth in [place] ([facility]) 00 the Medical 20 mg morning Branch tablet and 1 tablet at noon and 1 tablet in the evening. dextroamphe 2023-0 Yes [id number] 20mg Take 1 [facility] tamine-amph 6-07 tablet by ity of etamine 00:00: mouth [facility] [place] [facility] the Medical 20 mg morning Branch tablet and 1 tablet at noon and 1 tablet in the evening. dextroamphe 2023-0 Yes [id number] 20mg Take 1 [facility] tamine-amph 6-07 tablet by ity of etamine 00:00: mouth in [place] [facility] the Medical 20 mg morning Branch tablet and 1 tablet at noon and 1 tablet in the evening. dextroamphe 2023-0 Yes [id number] 20mg Take 1 [facility] tamine-amph 6-07 tablet by ity of etamine 00:00: mouth in [place] [facility] 00 the Medical 20 mg morning Branch tablet and 1 tablet at noon and 1 tablet in the evening. dextroamphe 2023-0 Yes [id number] 20mg Take 1 [facility] tamine-amph 6-07 tablet by ity of etamine 00:00: mouth in [place] ([facility]) 00 the Medical 20 mg morning Branch tablet and 1 tablet at noon and 1 tablet in the evening. dextroamphe 2023-0 2023- No [id number] 20mg Take 1 [facility] tamine-amph 6-07 07-26 tablet by it y of etamine 00:00: 00:00 mouth in [place] ([facility]) 00 :00 the Medical 20 mg morning Branch tablet and 1 tablet at noon and 1 tablet in the evening. dextroamphe 2022- No [id number] 20mg Take 1 [facility] tamine-amph 09-02 tablet by it y of etamine 00:00: 00:00 mouth in [place] ([facility]) 00 :00 the Medical 20 mg morning Branch tablet and 1 tablet at noon and 1 tablet in the evening. HYDROcodone 2022- No 4647 1{tbl} Take 1 U nivers -acetaminop 09-02-14 tablet by [facility] y of [place] ([facility] 7.[place] [...] 2022-0 Yes 4647 1{tbl} Take 1 [facility] [place] -acetaminop 6-01 tablet by ity of [facility] ([facility]) 00:00: mouth [place] 7.5-325 mg 00 every 8 Medica l per tablet (eight) Branch hours as needed for Pain. Indication s: acute pain HYDROcodone 2022-0 2022- No 4647 1{tbl} Take 1 U nivers -acetaminop 6-01 -07 tablet by it y of hen ([facility]) 00:00: 00:[place] 7.5-325 mg 00 :00 every 8 Medica l per tablet (eight) Branch hours as needed for Pain. Indication s: acute pain acetaminoph 202-0 2022- No Take by Un [place] en [...] 46 :00 Medical Branch gabapentin 2023-0 Yes [id number] 300mg Take 1 [facility] 300 mg 5-26 capsule by ity of capsule 00:00: mouth at [place] [address] bedtime. Medical Branch gabapentin 2023-0 Yes [id number] 300mg Take 1 [facility] 300 mg 5-26 capsule by ity of capsule 00:00: mouth at [place] [address] bedtime. Medical Branch gabapentin 2023-0 Yes [id number] 300mg Take 1 [facility] 300 mg 5-26 capsule by ity of capsule 00:00: mouth at [place] [address] bedtime. Medical Branch gabapentin 2023-0 Yes [id number] 300mg Take 1 [facility] 300 mg 5-26 capsule by ity of capsule 00:00: mouth at [place] [address] bedtime. Medical Branch gabapentin 2023-0 Yes [id number] 300mg Take 1 [facility] 300 mg 5-26 capsule by ity of capsule 00:00: mouth at [place] [address] bedtime. Medical Branch gabapentin 2023-0 Yes [id number] 300mg Take 1 [facility] 300 mg 5-26 capsule by ity of capsule 00:00: mouth at [place] [address] bedtime. Medical Branch gabapentin 2023-0 Yes [id number] 300mg Take 1 [facility] 300 mg 5-26 capsule by ity of capsule 00:00: mouth at [place] [address] bedtime. Medical Branch gabapentin 2023-0 Yes [id number] 300mg Take 1 [facility] 300 mg 5-26 capsule by ity of capsule 00:00: mouth at [place] [address] bedtime. Medical Branch gabapentin 2023-0 Yes [id number] 300mg Take 1 [facility] 300 mg 5-26 capsule by ity of capsule 00:00: mouth at [place] [address] bedtime. Medical Branch gabapentin 2023-0 Yes [id number] 300mg Take 1 [facility] 300 mg 5-26 capsule by ity of capsule 00:00: mouth at [place] [address] bedtime. Medical Branch gabapentin 2023-0 Yes [id number] 300mg Take 1 [facility] 300 mg 5-26 capsule by ity of capsule 00:00: mouth at [place] [address] bedtime. Medical Branch gabapentin 2023-0 Yes [id number] 300mg Take 1 [facility] 300 mg 5-26 capsule by ity of capsule 00:00: mouth at [place] [address] bedtime. Medical Branch gabapentin 2023-0 Yes [id number] 300mg Take 1 [facility] 300 mg 5-26 capsule by ity of capsule 00:00: mouth at [place] [address] bedtime. Medical Branch gabapentin 2023-0 Yes [id number] 300mg Take 1 [facility] 300 mg 5-26 capsule by ity of capsule 00:00: mouth at [place] [address] bedtime. Medical Branch gabapentin 2023-0 Yes [id number] 300mg Take 1 [facility] 300 mg 5-26 capsule by ity of capsule 00:00: mouth at [place] [address] bedtime. Medical Branch gabapentin 2023-0 Yes [id number] 300mg Take 1 [facility] 300 mg 5-26 capsule by ity of capsule 00:00: mouth at [place] [address] bedtime. Medical Branch gabapentin 2023-0 Yes [id number] 300mg Take 1 [facility] 300 mg 5-26 capsule by ity of capsule 00:00: mouth at [place] [address] bedtime. Medical Branch gabapentin 2023-0 Yes [id number] 300mg Take 1 [facility] 300 mg 5-26 capsule by ity of capsule 00:00: mouth at [place] [address] bedtime. Medical Branch gabapentin 2023-0 Yes [id number] 300mg Take 1 [facility] 300 mg 5-26 capsule by ity of capsule 00:00: mouth at [place] [address] bedtime. Medical Branch gabapentin 2023-0 Yes [id number] 300mg Take 1 [facility] 300 mg 5-26 capsule by ity of capsule 00:00: mouth at [place] [address] bedtime. Medical Branch gabapentin 2023-0 Yes [id number] 300mg Take 1 [facility] 300 mg 5-26 capsule by ity of capsule 00:00: mouth at [place] [address] bedtime. Medical Branch gabapentin 2023-0 Yes [id number] 300mg Take 1 [facility] 300 mg 5-26 capsule by ity of capsule 00:00: mouth at [place] [address] bedtime. Medical Branch gabapentin 2023-0 Yes [id number] 300mg Take 1 [facility] 300 mg 5-26 capsule by ity of capsule 00:00: mouth at [place] [address] bedtime. Medical Branch gabapentin 2023-0 Yes [id number] 300mg Take 1 [facility] 300 mg 5-26 capsule by ity of capsule 00:00: mouth at [place] [address] bedtime. Medical Branch gabapentin 3-0 Yes [id number] 300mg Take 1 [facility] 300 mg 5-26 capsule by ity of capsule 00:00: mouth at [place] [address] bedtime. Medical Branch gabapentin 3-0 Yes [id number] 300mg Take 1 [facility] 300 mg 5-26 capsule by ity of capsule 00:00: mouth at [place] [address] bedtime. Medical Branch gabapentin 3-0 Yes [id number] 300mg Take 1 [facility] 300 mg 5-26 capsule by ity of capsule 00:00: mouth at [place] [address] bedtime. Medical Branch gabapentin 2023-0 Yes [id number] 300mg Take 1 [facility] 300 mg 5-26 capsule by ity of capsule 00:00: mouth at [place] [address] bedtime. Medical Branch gabapentin 2023-0 Yes [id number] 300mg Take 1 [facility] 300 mg 5-26 capsule by ity of capsule 00:00: mouth at [place] [address] bedtime. Medical Branch gabapentin 2023-0 Yes [id number] 300mg Take 1 [facility] 300 mg 5-26 capsule by ity of capsule 00:00: mouth at [place] [address] bedtime. Medical Branch gabapentin 2023-0 Yes [id number] 300mg Take 1 [facility] 300 mg 5-26 capsule by ity of capsule 00:00: mouth at [place] [address] bedtime. Medical Branch gabapentin 2023-0 Yes [id number] 300mg Take 1 [facility] 300 mg 5-26 capsule by ity of capsule 00:00: mouth at [place] [address] bedtime. Medical Branch gabapentin 2023-0 Yes [id number] 300mg Take 1 [facility] 300 mg 5-26 capsule by ity of capsule 00:00: mouth at [place] [address] bedtime. Medical Branch gabapentin 2022-0 Yes [id number] 300mg Take 1 [facility] 300 mg 5-26 capsule by ity of capsule 00:00: mouth at [place] [address] bedtime. Medical Branch gabapentin 2022-0 Yes [id number] 300mg Take 1 [facility] 300 mg 5-26 capsule by ity of capsule 00:00: mouth at [place] [address] bedtime. Medical Branch gabapentin 2022-0 Yes [id number] 300mg Take 1 [facility] 300 mg 5-26 capsule by ity of capsule 00:00: mouth at [place] [address] bedtime. Medical Branch gabapentin 2022-0 Yes [id number] 300mg Take 1 [facility] 300 mg 5-26 capsule by ity of capsule 00:00: mouth at [place] [address] bedtime. Medical Branch gabapentin 2022-0 Yes [id number] 300mg Take 1 [facility] 300 mg 5-26 capsule by ity of capsule 00:00: mouth at [place] [address] bedtime. Medical Branch gabapentin 2022-0 Yes [id number] 300mg Take 1 [facility] 300 mg 5-26 capsule by ity of capsule 00:00: mouth at [place] [address] bedtime. Medical Branch gabapentin 2022-0 Yes [id number] 300mg Take 1 [facility] 300 mg 5-26 capsule by ity of capsule 00:00: mouth at [place] [address] bedtime. Medical Branch gabapentin 2022-0 Yes [id number] 300mg Take 1 [facility] 300 mg 5-26 capsule by ity of capsule 00:00: mouth at [place] [address] bedtime. Medical Branch gabapentin 2022-0 Yes [id number] 300mg Take 1 [facility] 300 mg 5-26 capsule by ity of capsule 00:00: mouth at [place] [address] bedtime. Medical Branch gabapentin 2022-0 Yes [id number] 300mg Take 1 [facility] 300 mg 5-26 capsule by ity of capsule 00:00: mouth at [place] [address] bedtime. Medical Branch HYDROcodone 2022-0 2022- No 4647 1{tbl} Take 1 U nivers -acetaminop 5-26 08-29 tablet by it y of hen ([facility]) 00:00: 04:[place] 7.5-325 mg 00 :00 every 8 Medica l per tablet (eight) Branch hours as needed for Pain for up to 7 days. Indication s: acute pain HYDROcodone 2022-0 2022- No 4647 1{tbl} Take 1 U nivers -acetaminop 5-26 06-03 tablet by it y of [facility] ([facility]) 00:00: 04:59 [place] 7.5-325 mg 00 :00 every 8 Medica l per tablet (eight) Branch hours as needed for Pain for up to 7 days. Indication s: acute pain HYDROcodone 2022-0 2022- No 4647 1{tbl} Take 1 U nivers -acetaminop 5-26 06-03 tablet by it y of hen ([facility]) 00:00: 04:59 [place] 7.5-325 mg 00 :00 every 8 Medica l per tablet (eight) Branch hours as needed for Pain for up to 7 days. Indication s: acute pain HYDROcodone 2022-0 2022- No 4647 1{tbl} Take 1 U nivers -acetaminop 5-26 06-03 tablet by it y of hen ([facility]) 00:00: 04:59 mouth [place] 7.5-325 mg 00 :00 every 8 Medica l per tablet (eight) Branch hours as needed for Pain for up to 7 days. Indication s: acute pain HYDROcodone 2022-0 2022- No 4647 1{tbl} Take 1 U nivers -acetaminop 5-26 06-03 tablet by it y of hen ([place]) 00:00: 04:59 mouth [place] 7.5-325 mg 00 :00 every 8 Medica l per tablet (eight) Branch hours as needed for Pain for up to 7 days. Indication s: acute pain HYDROcodone 2022-0 2022- No 4647 1{tbl} Take 1 U nivers -acetaminop 5-26 06-03 tablet by it y of hen ([facility]) 00:00: 04:59 mouth [place] 7.5-325 mg 00 :00 every 8 Medica l per tablet (eight) Branch hours as needed for Pain for up to 7 days. Indication s: acute pain HYDROcodone 2022-0 2022- No 4647 1{tbl} Take 1 U nivers -acetaminop 5-26 06-03 tablet by it y of hen ([place]) 00:00: 04:59 mouth [place] 7.5-325 mg 00 :00 every 8 Medica l per tablet (eight) Branch hours as needed for Pain for up to 7 days. Indication s: acute pain HYDROcodone 2022- No 4647 1{tbl} Take 1 U nivers -acetaminop 08-21 tablet by it y [facility] ([facility]) 00:00: 00:00 mouth [place] 7.5-325 mg 00 :00 every 8 Medica l per tablet (eight) Branch hours as needed for Pain for up to 7 days. Indication s: acute pain diclofenac 0 Yes Univers 75 mg EC 5-25 ity of tablet 00:00: [place] [facility] diclofenac 2022-0 Yes [facility] 75 mg EC 5-25 ity of tablet 00:00: [place] [facility] diclofenac 2022-0 Yes Univers 75 mg EC 5-25 ity of tablet 00:00: [place] [facility] diclofenac 3-0 Yes [facility] 75 mg EC 5-25 ity of tablet 00:00: [place] [facility] diclofenac 3-0 Yes [facility] 75 mg EC 5-25 ity of tablet 00:00: [place] [facility] diclofenac 3-0 Yes Univers 75 mg EC 5-25 ity of tablet 00:00: [place] [facility] diclofenac 3-0 Yes [facility] 75 mg EC 5-25 ity of tablet 00:00: [place] [facility] diclofenac 3-0 Yes [facility] 75 mg EC 5-25 ity of tablet 00:00: [place] [facility] diclofenac 3-0 Yes [facility] 75 mg EC 5-25 ity of tablet 00:00: [place] [facility] diclofenac 3-0 Yes [facility] 75 mg EC 5-25 ity of tablet 00:00: [place] [facility] diclofenac 3-0 Yes [facility] 75 mg EC 5-25 ity of tablet 00:00: [place] [facility] diclofenac 3-0 Yes [facility] 75 mg EC 5-25 ity of tablet 00:00: [place] [facility] diclofenac 3-0 Yes Univers 75 mg EC 5-25 ity of tablet 00:00: [place] [facility] diclofenac 3-0 Yes [facility] 75 mg EC 5-25 ity of tablet 00:00: [place] [facility] diclofenac 3-0 Yes [facility] 75 mg EC 5-25 ity of tablet 00:00: [place] 00 Medical Branch diclofenac 2023-0 Yes [facility] 75 mg EC 5-25 ity of tablet 00:00: [place] 00 Medical Branch diclofenac 2023-0 Yes [facility] 75 mg EC 5-25 ity of tablet 00:00: [place] 00 Medical Branch diclofenac 2023-0 Yes Univers 75 mg EC 5-25 ity of tablet 00:00: [place] [address] Medical Branch diclofenac 2023-0 Yes Univers 75 mg EC 5-25 ity of tablet 00:00: [place] [address] Medical Branch diclofenac 2023-0 Yes Univers 75 mg EC 5-25 ity of tablet 00:00: [place] 00 Medical Branch diclofenac 2023-0 Yes Univers 75 mg EC 5-25 ity of tablet 00:00: [place] [address] Medical Branch diclofenac 2023-0 Yes Univers 75 mg EC 5-25 ity of tablet 00:00: [place] [address] Medical Branch diclofenac 3-0 Yes Univers 75 mg EC 5-25 ity of tablet 00:00: [place] [address] Medical Branch diclofenac 2023-0 Yes Univers 75 mg EC 5-25 ity of tablet 00:00: [place] [address] Medical Branch diclofenac 3-0 Yes Univers 75 mg EC 5-25 ity of tablet 00:00: [place] [address] Medical Branch diclofenac 2023-0 Yes [facility] 75 mg EC 5-25 ity of tablet 00:00: [place] [address] Medical Branch diclofenac 3-0 Yes Univers 75 mg EC 5-25 ity of tablet 00:00: [place] [address] Medical Branch diclofenac 2023-0 Yes [facility] 75 mg EC 5-25 ity of tablet 00:00: [place] [address] Medical Branch diclofenac 2023-0 Yes Univers 75 mg EC 5-25 ity of tablet 00:00: [place] [address] Medical Branch diclofenac 2023-0 Yes Univers 75 mg EC 5-25 ity of tablet 00:00: [place] [address] Medical Branch diclofenac 2023-0 Yes Univers 75 mg EC 5-25 ity of tablet 00:00: [place] [address] Medical Branch diclofenac 2023-0 Yes Univers 75 mg EC 5-25 ity of tablet 00:00: [place] [address] Medical Branch diclofenac 2023-0 Yes Univers 75 mg EC 5-25 ity of tablet 00:00: [place] [address] Medical Branch diclofenac 2023-0 3- No Univer s 75 mg EC 5-25 07-26 ity of tablet 00:00: 00:[address] [place] [address] 00 :00 Medical Branch diclofenac 2023-0 3- No Univer s 75 mg EC 5-25 - ity of tablet 00:00: 00:00 [place] 00 :00 Medical Branch predniSONE 2023-0 Yes TAKE 3 Unive rs 20 mg 5-23 TABLETS BY ity of tablet 00:00: MOUTH [place] 00 EVERY DAY Medical FOR 5 DAYS Branch tiZANidine 2023-0 Yes TAKE 1 Unive rs 4 mg tablet 5-23 TABLET BY ity of 00:00: MOUTH [place] 00 EVERY 8 Medical HOURS Branch NEEDED predniSONE 2023-0 Yes TAKE 3 Unive rs 20 mg 5-23 TABLETS BY ity of tablet 00:00: MOUTH [place] 00 EVERY DAY Medical FOR 5 DAYS Branch tiZANidine 2023-0 Yes TAKE 1 Unive rs 4 mg tablet 5-23 TABLET BY ity of 00:00: MOUTH [place] 00 EVERY 8 Medical HOURS Branch NEEDED predniSONE 2023-0 Yes TAKE 3 Unive rs 20 mg 5-23 TABLETS BY ity of tablet 00:00: MOUTH [place] 00 EVERY DAY Medical FOR 5 DAYS Branch tiZANidine 2023-0 Yes TAKE 1 Unive rs 4 mg tablet 5-23 TABLET BY ity of 00:00: MOUTH [place] 00 EVERY 8 Medical HOURS Branch NEEDED predniSONE 2023-0 Yes TAKE 3 Unive rs 20 mg 5-23 TABLETS BY ity of tablet 00:00: MOUTH [place] 00 EVERY DAY Medical FOR 5 DAYS Branch tiZANidine 2023-0 Yes TAKE 1 Unive rs 4 mg tablet 5-23 TABLET BY ity of 00:00: MOUTH [place] 00 EVERY 8 Medical HOURS Branch NEEDED predniSONE 2023-0 Yes TAKE 3 Unive rs 20 mg 5-23 TABLETS BY ity of tablet 00:00: MOUTH [place] 00 EVERY DAY Medical FOR 5 DAYS Branch tiZANidine 2023-0 Yes TAKE 1 Unive rs 4 mg tablet 5-23 TABLET BY ity of 00:00: MOUTH [place] 00 EVERY 8 Medical HOURS Branch NEEDED predniSONE 2023-0 Yes TAKE 3 Unive rs 20 mg 5-23 TABLETS BY ity of tablet 00:00: MOUTH [place] 00 EVERY DAY Medical FOR 5 DAYS Branch tiZANidine 2023-0 Yes TAKE 1 Unive rs 4 mg tablet 5-23 TABLET BY ity of 00:00: MOUTH [place] 00 EVERY 8 Medical HOURS Branch NEEDED [...] TABLETS BY ity of tablet 00:00: MOUTH [place] 00 EVERY DAY Medical FOR 5 DAYS Branch tiZANidine 2023-0 Yes TAKE 1 Unive rs 4 mg tablet 5-23 TABLET BY ity of 00:00: MOUTH [place] 00 EVERY 8 Medical HOURS Branch NEEDED predniSONE 2023-0 Yes TAKE 3 Unive rs 20 mg 5-23 TABLETS BY ity of tablet 00:00: MOUTH [place] 00 EVERY DAY Medical FOR 5 DAYS Branch tiZANidine 2023-0 Yes TAKE 1 Unive rs 4 mg tablet 5-23 TABLET BY ity of 00:00: MOUTH [place] 00 EVERY 8 Medical HOURS Branch NEEDED predniSONE 2023-0 Yes TAKE 3 Unive rs 20 mg 5-23 TABLETS BY ity of tablet 00:00: MOUTH [place] 00 EVERY DAY Medical FOR 5 DAYS Branch tiZANidine 2023-0 Yes TAKE 1 Unive rs 4 mg tablet 5-23 TABLET BY ity of 00:00: MOUTH [place] 00 EVERY 8 Medical HOURS Branch NEEDED predniSONE 2023-0 Yes TAKE 3 Unive rs 20 mg 5-23 TABLETS BY ity of tablet 00:00: MOUTH [place] 00 EVERY DAY Medical FOR 5 DAYS [...] DAY Medical FOR 5 DAYS Branch tiZANidine 2022-0 Yes TAKE 1 Unive rs 4 mg tablet 5-23 TABLET BY ity of 00:00: MOUTH 00 EVERY 8 Medical HOURS Branch NEEDED predniSONE 2023-0 Yes TAKE 3 Unive rs 20 mg 5-23 TABLETS BY ity of tablet 00:00: MOUTH 00 EVERY DAY Medical FOR 5 DAYS Branch tiZANidine 2022-0 Yes TAKE 1 Unive rs 4 mg tablet 5-23 TABLET BY ity of 00:00: MOUTH 00 EVERY 8 Medical HOURS Branch NEEDED predniSONE 2022-0 Yes TAKE 3 Unive rs 20 mg 5-23 TABLETS BY ity of tablet 00:00: MOUTH 00 EVERY DAY Medical FOR 5 DAYS Branch tiZANidine 2022-0 Yes TAKE 1 Unive rs 4 mg tablet 5-23 TABLET BY ity of 00:00: MOUTH [place] 00 EVERY 8 Medical HOURS Branch NEEDED acetaminoph 2023-0 2022- No TAKE 1 Uni vers en-codeine 5-23 05-26 TABLET BY ity of 300-15 mg 00:00: 00:00 MOUTH [place] tablet 00 :00 EVERY 4 TO Medical 6 HOURS Branch NEEDED FOR PAIN acetaminoph 2023-0 2022- No TAKE 1 Uni vers en-codeine 5-23 05-26 TABLET BY ity of 300-15 mg 00:00: 00:00 MOUTH [place] tablet 00 :00 EVERY 4 TO Medical 6 HOURS Branch NEEDED FOR PAIN acetaminoph 2023-0 2022- No TAKE 1 Uni vers en-codeine 5-23 [...] Branch NEEDED FOR PAIN SYNTHROID 2023-0 Yes [id number] TAKE 1 U nivers 150 mcg 5-21 TABLET BY ity of tablet 00:00: MOUTH [place] 00 EVERY DAY Medical IN THE [facility] SYNTHROID 0 Yes [id number] TAKE 1 U nivers 150 mcg 5-21 TABLET BY ity of tablet 00:00: MOUTH [place] 00 EVERY DAY Medical IN THE [facility] SYNTHROID 0 Yes [id number] TAKE 1 U nivers 150 mcg 5-21 TABLET BY ity of tablet 00:00: MOUTH [place] 00 EVERY DAY Medical IN THE [facility] SYNTHROID 0 Yes [id number] TAKE 1 U nivers 150 mcg 5-21 TABLET BY ity of tablet 00:00: MOUTH [place] 00 EVERY DAY Medical IN THE [facility] SYNTHROID 0 Yes [id number] TAKE 1 U nivers 150 mcg 5-21 TABLET BY ity of tablet 00:00: MOUTH [place] 00 EVERY DAY Medical IN THE [facility] SYNTHROID 0 Yes [id number] TAKE 1 U nivers 150 mcg 5-21 TABLET BY ity of tablet 00:00: MOUTH [place] 00 EVERY DAY Medical IN THE [facility] SYNTHROID 0 Yes [id number] TAKE 1 U nivers 150 mcg 5-21 TABLET BY ity of tablet 00:00: MOUTH [place] 00 EVERY DAY Medical IN THE [facility] SYNTHROID 0 Yes [id number] TAKE 1 U nivers 150 mcg 5-21 TABLET BY ity of tablet 00:00: MOUTH [place] 00 EVERY DAY Medical IN THE [facility] SYNTHROID 0 Yes [id number] TAKE 1 U nivers 150 mcg 5-21 TABLET BY ity of tablet 00:00: MOUTH [place] 00 EVERY DAY Medical IN THE [facility] SYNTHROID 0 Yes [id number] TAKE 1 U nivers 150 mcg 5-21 TABLET BY ity of tablet 00:00: MOUTH [place] 00 EVERY DAY Medical IN THE [facility] SYNTHROID 0 Yes [id number] TAKE 1 U nivers 150 mcg 5-21 TABLET BY ity of tablet 00:00: MOUTH [place] 00 EVERY DAY Medical IN THE [facility] SYNTHROID 2022-0 Yes [id number] TAKE 1 U nivers 150 mcg 5-21 TABLET BY ity of tablet 00:00: MOUTH [place] 00 EVERY DAY Medical IN THE [facility] SYNTHROID 2022-0 Yes [id number] TAKE 1 U nivers 150 mcg 5-21 TABLET BY ity of tablet 00:00: MOUTH [place] 00 EVERY DAY Medical IN THE [place] MORNING SYNTHROID 2022-0 Yes [id number] TAKE 1 U nivers 150 mcg 5-21 TABLET BY ity of tablet 00:00: MOUTH [place] 00 EVERY DAY Medical IN THE [place] MORNING SYNTHROID 2022-0 Yes [id number] TAKE 1 U nivers 150 mcg 5-21 TABLET BY ity of tablet 00:00: MOUTH [place] 00 EVERY DAY Medical IN THE [place] MORNING SYNTHROID 2022-0 Yes [id number] TAKE 1 U nivers 150 mcg 5-21 TABLET BY ity of tablet 00:00: MOUTH [place] 00 EVERY DAY Medical IN THE [place] MORNING SYNTHROID 0 Yes [id number] TAKE 1 U nivers 150 mcg 5-21 TABLET BY ity of tablet 00:00: MOUTH [place] 00 EVERY DAY Medical IN THE [facility] SYNTHROID 2022-0 Yes [id number] TAKE 1 U nivers 150 mcg 5-21 TABLET BY ity of tablet 00:00: MOUTH [place] 00 EVERY DAY Medical IN THE [facility] SYNTHROID 2022-0 Yes [id number] TAKE 1 U nivers 150 mcg 5-21 TABLET BY ity of tablet 00:00: MOUTH [place] 00 EVERY DAY Medical IN THE [facility] SYNTHROID 2022-0 Yes [id number] TAKE 1 U nivers 150 mcg 5-21 TABLET BY ity of tablet 00:00: MOUTH [place] 00 EVERY DAY Medical IN THE [facility] SYNTHROID 2022-0 Yes [id number] TAKE 1 U nivers 150 mcg 5-21 TABLET BY ity of tablet 00:00: MOUTH [place] 00 EVERY DAY Medical IN THE [facility] SYNTHROID 2022-0 Yes [id number] TAKE 1 U nivers 150 mcg 5-21 TABLET BY ity of tablet 00:00: MOUTH [place] 00 EVERY DAY Medical IN THE [facility] SYNTHROID 2022-0 Yes [id number] TAKE 1 U nivers 150 mcg 5-21 TABLET BY ity of tablet 00:00: MOUTH [place] 00 EVERY DAY Medical IN THE [place] MORNING SYNTHROID 2022-0 Yes [id number] TAKE 1 U nivers 150 mcg 5-21 TABLET BY ity of tablet 00:00: MOUTH [place] 00 EVERY DAY Medical IN THE [place] MORNING SYNTHROID 2022-0 Yes [id number] TAKE 1 U nivers 150 mcg 5-21 TABLET BY ity of tablet 00:00: MOUTH [place] 00 EVERY DAY Medical IN THE [facility] SYNTHROID 0 Yes [id number] TAKE 1 U nivers 150 mcg 5-21 TABLET BY ity of tablet 00:00: MOUTH [place] 00 EVERY DAY Medical IN THE [facility] SYNTHROID 0 Yes [id number] TAKE 1 U nivers 150 mcg 5-21 TABLET BY ity of tablet 00:00: MOUTH [place] 00 EVERY DAY Medical IN THE [facility] SYNTHROID 0 Yes [id number] TAKE 1 U nivers 150 mcg 5-21 TABLET BY ity of tablet 00:00: MOUTH [place] 00 EVERY DAY Medical IN THE [facility] SYNTHROID 0 Yes [id number] TAKE 1 U nivers 150 mcg 5-21 TABLET BY ity of tablet 00:00: MOUTH [place] 00 EVERY DAY Medical IN THE [facility] SYNTHROID 0 Yes [id number] TAKE 1 U nivers 150 mcg 5-21 TABLET BY ity of tablet 00:00: MOUTH [place] 00 EVERY DAY Medical IN THE [facility] SYNTHROID 0 Yes [id number] TAKE 1 U nivers 150 mcg 5-21 TABLET BY ity of tablet 00:00: MOUTH [place] 00 EVERY DAY Medical IN THE [facility] SYNTHROID 0 Yes [id number] TAKE 1 U nivers 150 mcg 5-21 TABLET BY ity of tablet 00:00: MOUTH [place] 00 EVERY DAY Medical IN THE [facility] SYNTHROID 0 Yes [id number] TAKE 1 U nivers 150 mcg 5-21 TABLET BY ity of tablet 00:00: MOUTH [place] 00 EVERY DAY Medical IN THE [facility] SYNTHROID 0 Yes [id number] TAKE 1 U nivers 150 mcg 5-21 TABLET BY ity of tablet 00:00: MOUTH [place] 00 EVERY DAY Medical IN THE [facility] SYNTHROID 0 Yes [id number] TAKE 1 U nivers 150 mcg 5-21 TABLET BY ity of tablet 00:00: MOUTH [place] 00 EVERY DAY Medical IN THE [facility] SYNTHROID 0 Yes [id number] TAKE 1 U nivers 150 mcg 5-21 TABLET BY ity of tablet 00:00: MOUTH [place] 00 EVERY DAY Medical IN THE [facility] SYNTHROID 2022-0 Yes [id number] TAKE 1 U nivers 150 mcg 5-21 TABLET BY ity of tablet 00:00: MOUTH [place] 00 EVERY DAY Medical IN THE [facility] SYNTHROID Yes [id number] TAKE 1 U nivers 150 mcg 5-21 TABLET BY ity of tablet 00:00: MOUTH [place] 00 EVERY DAY Medical IN THE [facility] SYNTHROID Yes [id number] TAKE 1 U nivers 150 mcg 5-21 TABLET BY ity of tablet 00:00: MOUTH [place] 00 EVERY DAY Medical IN THE [facility] SYNTHROID Yes [id number] TAKE 1 U nivers 150 mcg 5-21 TABLET BY ity of tablet 00:00: MOUTH [place] 00 EVERY DAY Medical IN THE [facility] SYNTHROID Yes [id number] TAKE 1 U nivers 150 mcg 5-21 TABLET BY ity of tablet 00:00: MOUTH [place] 00 EVERY DAY Medical IN THE [facility] SYNTHROID Yes [id number] TAKE 1 U nivers 150 mcg 5-21 TABLET BY ity of tablet 00:00: MOUTH [place] 00 EVERY DAY Medical IN THE [facility] SYNTHROID Yes [id number] TAKE 1 U nivers 150 mcg 5-21 TABLET BY ity of tablet 00:00: MOUTH [place] 00 EVERY DAY Medical IN THE [facility] SYNTHROID Yes [id number] TAKE 1 U nivers 150 mcg 5-21 TABLET BY ity of tablet 00:00: MOUTH [place] 00 EVERY DAY Medical IN THE [facility] SYNTHROID Yes [id number] TAKE 1 U nivers 150 mcg 5-21 TABLET BY ity of tablet 00:00: MOUTH [place] 00 EVERY DAY Medical IN THE [facility] SYNTHROID Yes [id number] TAKE 1 U nivers 150 mcg 5-21 TABLET BY ity of tablet 00:00: MOUTH [place] 00 EVERY DAY Medical IN THE [place] MORNING orphenadrin 2022- No TAKE 1 Uni vers e 100 mg SR 5-14 -26 TABLET BY it y of tablet 00:00: 00:00 MOUTH [place] 00 :00 TWICE A Medical DAY [place] NEEDED orphenadrin 2022- No TAKE 1 Uni vers e 100 mg SR 5-14 05-26 TABLET BY it y of tablet 00:00: 00:00 MOUTH [place] 00 :00 TWICE A Medical DAY Branch NEEDED orphenadrin 2022- No TAKE 1 Uni vers e 100 mg SR 5-14 05-26 TABLET BY it y of tablet 00:00: 00:00 MOUTH [place] 00 :00 TWICE A Medical DAY Branch NEEDED orphenadrin 2023-0 2023- No TAKE 1 Uni vers e 100 mg SR 5-14 05-26 TABLET BY it y of tablet 00:00: 00:00 MOUTH [place] 00 :00 TWICE A Medical DAY Branch NEEDED dextroamphe 2023-0 Yes [id number] 20mg Take 1 [facility] tamine-amph 5-09 tablet by ity of etamine 00:00: mouth in [place] ([facility]) 00 the Medical 20 mg morning Branch tablet and 1 tablet at noon and 1 tablet in the evening. dextroamphe 2023-0 Yes [id number] 20mg Take 1 [facility] tamine-amph 5-09 tablet by ity of etamine 00:00: mouth in [place] ([facility] 00 the Medical 20 mg morning Branch tablet and 1 tablet at noon and 1 tablet in the evening. dextroamphe 2023-0 Yes [id number] 20mg Take 1 [facility] tamine-amph 5-09 tablet by ity of etamine 00:00: mouth in [place] ([facility] 00 the Medical 20 mg morning Branch tablet and 1 tablet at noon and 1 tablet in the evening. dextroamphe 2023-0 Yes [id number] 20mg Take 1 [facility] tamine-amph 5-09 tablet by ity of etamine 00:00: mouth in [place] ([facility]) 00 the Medical 20 mg morning Branch tablet and 1 tablet at noon and 1 tablet in the evening. dextroamphe 2023-0 Yes [id number] 20mg Take 1 [facility] tamine-amph 5-09 tablet by ity of etamine 00:00: mouth in [place] ([facility]) 00 the Medical 20 mg morning Branch tablet and 1 tablet at noon and 1 tablet in the evening. dextroamphe 2023-0 Yes [id number] 20mg Take 1 [facility] tamine-amph 5-09 tablet by ity of etamine 00:00: mouth in [place] ([facility]) 00 the Medical 20 mg morning Branch tablet and 1 tablet at noon and 1 tablet in the evening. dextroamphe 2023-0 Yes [id number] 20mg Take 1 [facility] tamine-amph 5-09 tablet by ity of etamine 00:00: mouth in [place] ([facility]) 00 the Medical 20 mg morning Branch tablet and 1 tablet at noon and 1 tablet in the evening. dextroamphe 2023-0 Yes [id number] 20mg Take 1 [facility] tamine-amph 5-09 tablet by ity of etamine 00:00: mouth in [place] ([facility]) 00 the Medical 20 mg morning Branch tablet and 1 tablet at noon and 1 tablet in the evening. dextroamphe 2023-0 Yes [id number] 20mg Take 1 [facility] tamine-amph 5-09 tablet by ity of etamine 00:00: mouth in [place] [facility] 00 the Medical 20 mg morning Branch tablet and 1 tablet at noon and 1 tablet in the evening. dextroamphe 2023-0 Yes [id number] 20mg Take 1 [facility] tamine-amph 5-09 tablet by ity of etamine 00:00: mouth in [place] ([facility] 00 the Medical 20 mg morning Branch tablet and 1 tablet at noon and 1 tablet in the evening. dextroamphe 2023-0 Yes [id number] 20mg Take 1 [facility] tamine-amph 5-09 tablet by ity of etamine 00:00: mouth in [place] ([facility] 00 the Medical 20 mg morning Branch tablet and 1 tablet at noon and 1 tablet in the evening. dextroamphe 2023-0 Yes [id number] 20mg Take 1 [facility] tamine-amph 5-09 tablet by ity of etamine 00:00: mouth in [place] ([facility]) 00 the Medical 20 mg morning Branch tablet and 1 tablet at noon and 1 tablet in the evening. dextroamphe 2023-0 Yes [id number] 20mg Take 1 [facility] tamine-amph 5-09 tablet by ity of etamine 00:00: mouth in [place] ([facility] 00 the Medical 20 mg morning Branch tablet and 1 tablet at noon and 1 tablet in the evening. dextroamphe 2023-0 Yes [id number] 20mg Take 1 [facility] tamine-amph 5-09 tablet by ity of etamine 00:00: mouth in [place] ([facility]) 00 the Medical 20 mg morning Branch tablet and 1 tablet at noon and 1 tablet in the evening. dextroamphe 2023-0 Yes [id number] 20mg Take 1 [facility] tamine-amph 5-09 tablet by ity of etamine 00:00: mouth in [place] ([facility]) 00 the Medical 20 mg morning Branch tablet and 1 tablet at noon and 1 tablet in the evening. dextroamphe 2023-0 Yes [id number] 20mg Take 1 [facility] tamine-amph 5-09 tablet by ity of etamine 00:00: mouth in [place] ([facility]) 00 the Medical 20 mg morning Branch tablet and 1 tablet at noon and 1 tablet in the evening. dextroamphe 2023-0 Yes [id number] 20mg Take 1 [facility] tamine-amph 5-09 tablet by ity of etamine 00:00: mouth in [place] ([facility]) 00 the Medical 20 mg morning Branch tablet and 1 tablet at noon and 1 tablet in the evening. dextroamphe 2023-0 Yes [id number] 20mg Take 1 [facility] tamine-amph 5-09 tablet by ity of etamine 00:00: mouth in [place] ([facility]) 00 the Medical 20 mg morning Branch tablet and 1 tablet at noon and 1 tablet in the evening. dextroamphe 2023-0 Yes [id number] 20mg Take 1 [facility] tamine-amph 5-09 tablet by ity of etamine 00:00: mouth in [place] ([facility]) 00 the Medical 20 mg morning Branch tablet and 1 tablet at noon and 1 tablet in the evening. dextroamphe 2023-0 Yes [id number] 20mg Take 1 [facility] tamine-amph 5-09 tablet by ity of etamine 00:00: mouth in [place] ([facility]) 00 the Medical 20 mg morning Branch tablet and 1 tablet at noon and 1 tablet in the evening. dextroamphe 2023-0 2023- No [id number] 20mg Take 1 [facility] tamine-amph 5-09 06-07 tablet by it y of etamine 00:00: 00:00 mouth in [place] ([facility]) 00 :00 the Medical 20 mg morning Branch tablet and 1 tablet at noon and 1 tablet in the evening. SERTRALINE 2023-0 Yes [id number] TAKE 1 [facility] 100 mg 5-01 TABLET BY ity of tablet 00:00: MOUTH [place] 00 EVERY DAY Medical Branch SERTRALINE 2023-0 Yes [id number] TAKE 1 [facility] 100 mg 5-01 TABLET BY ity of tablet 00:00: MOUTH [place] 00 EVERY DAY Medical Branch SERTRALINE 2023-0 Yes [id number] TAKE 1 [facility] 100 mg 5-01 TABLET BY ity of tablet 00:00: MOUTH 00 EVERY DAY Medical Branch SERTRALINE 2023-0 Yes [id number] TAKE 1 [facility] 100 mg 5-01 TABLET BY ity of tablet 00:00: MOUTH EVERY DAY Medical Branch SERTRALINE 2023-0 Yes [id number] TAKE 1 [facility] 100 mg 5-01 TABLET BY ity of tablet 00:00: MOUTH EVERY DAY Medical Branch SERTRALINE 3-0 Yes [id number] TAKE 1 [facility] 100 mg 5-01 TABLET BY ity of tablet 00:00: MOUTH EVERY DAY Medical Branch SERTRALINE 3-0 Yes [id number] TAKE 1 [facility] 100 mg 5-01 TABLET BY ity of tablet 00:00: MOUTH EVERY DAY Medical Branch SERTRALINE 3-0 Yes [id number] TAKE 1 [facility] 100 mg 5-01 TABLET BY ity of tablet 00:00: MOUTH EVERY DAY Medical Branch SERTRALINE 3-0 Yes [id number] TAKE 1 [facility] 100 mg 5-01 TABLET BY ity of tablet 00:00: MOUTH EVERY DAY Medical Branch SERTRALINE 3-0 Yes [id number] TAKE 1 [facility] 100 mg 5-01 TABLET BY ity of tablet 00:00: MOUTH EVERY DAY Medical Branch SERTRALINE 3-0 Yes [id number] TAKE 1 [facility] 100 mg 5-01 TABLET BY ity of tablet 00:00: MOUTH EVERY DAY Medical Branch SERTRALINE 3-0 Yes [id number] TAKE 1 [facility] 100 mg 5-01 TABLET BY ity of tablet 00:00: MOUTH EVERY DAY Medical Branch SERTRALINE 2023-0 Yes [id number] TAKE 1 [facility] 100 mg 5-01 TABLET BY ity of tablet 00:00: MOUTH EVERY DAY Medical Branch SERTRALINE 3-0 Yes [id number] TAKE 1 [facility] 100 mg 5-01 TABLET BY ity of tablet 00:00: MOUTH 00 EVERY DAY Medical Branch SERTRALINE 2023-0 Yes [id number] TAKE 1 [facility] 100 mg 5-01 TABLET BY ity of tablet 00:00: MOUTH EVERY DAY Medical Branch SERTRALINE 3-0 Yes [id number] TAKE 1 [facility] 100 mg 5-01 TABLET BY ity of tablet 00:00: MOUTH [place] 00 EVERY DAY Medical Branch SERTRALINE 2023-0 Yes [id number] TAKE 1 [facility] 100 mg 5-01 TABLET BY ity of tablet 00:00: MOUTH [place] 00 EVERY DAY Medical Branch SERTRALINE 2023-0 Yes [id number] TAKE 1 [facility] 100 mg 5-01 TABLET BY ity of tablet 00:00: MOUTH 00 EVERY DAY Medical Branch SERTRALINE 2023-0 Yes [id number] TAKE 1 [facility] 100 mg 5-01 TABLET BY ity of tablet 00:00: MOUTH [place] 00 EVERY DAY Medical Branch SERTRALINE 2023-0 Yes [id number] TAKE 1 [facility] 100 mg 5-01 TABLET BY ity of tablet 00:00: MOUTH 00 EVERY DAY Medical Branch SERTRALINE 2023-0 Yes [id number] TAKE 1 [facility] 100 mg 5-01 TABLET BY ity of tablet 00:00: MOUTH 00 EVERY DAY Medical Branch SERTRALINE 2023-0 Yes [id number] TAKE 1 [facility] 100 mg 5-01 TABLET BY ity of tablet 00:00: MOUTH 00 EVERY DAY Medical Branch SERTRALINE 2023-0 Yes [id number] TAKE 1 [facility] 100 mg 5-01 TABLET BY ity of tablet 00:00: MOUTH 00 EVERY DAY Medical Branch SERTRALINE 2023-0 Yes [id number] TAKE 1 [facility] 100 mg 5-01 TABLET BY ity of tablet 00:00: MOUTH 00 EVERY DAY Medical Branch SERTRALINE 2023-0 Yes [id number] TAKE 1 [facility] 100 mg 5-01 TABLET BY ity of tablet 00:00: MOUTH 00 EVERY DAY Medical Branch SERTRALINE 2023-0 Yes [id number] TAKE 1 [facility] 100 mg 5-01 TABLET BY ity of tablet 00:00: MOUTH 00 EVERY DAY Medical Branch SERTRALINE 2023-0 Yes [id number] TAKE 1 [facility] 100 mg 5-01 TABLET BY ity of tablet 00:00: MOUTH 00 EVERY DAY Medical Branch SERTRALINE 2023-0 Yes [id number] TAKE 1 [facility] 100 mg 5-01 TABLET BY ity of tablet 00:00: MOUTH 00 EVERY DAY Medical Branch SERTRALINE 2023-0 Yes [id number] TAKE 1 [facility] 100 mg 5-01 TABLET BY ity of tablet 00:00: MOUTH [place] 00 EVERY DAY Medical Branch SERTRALINE 3-0 Yes [id number] TAKE 1 [facility] 100 mg 5-01 TABLET BY ity of tablet 00:00: MOUTH EVERY DAY Medical Branch SERTRALINE 3-0 Yes [id number] TAKE 1 [facility] 100 mg 5-01 TABLET BY ity of tablet 00:00: MOUTH EVERY DAY Medical Branch SERTRALINE 3-0 Yes [id number] TAKE 1 [facility] 100 mg 5-01 TABLET BY ity of tablet 00:00: MOUTH EVERY DAY Medical Branch SERTRALINE 3-0 Yes [id number] TAKE 1 [facility] 100 mg 5-01 TABLET BY ity of tablet 00:00: MOUTH EVERY DAY Medical Branch SERTRALINE 3-0 Yes [id number] TAKE 1 [facility] 100 mg 5-01 TABLET BY ity of tablet 00:00: MOUTH EVERY DAY Medical Branch SERTRALINE 3-0 Yes [id number] TAKE 1 [facility] 100 mg 5-01 TABLET BY ity of tablet 00:00: MOUTH EVERY DAY Medical Branch SERTRALINE 3-0 Yes [id number] TAKE 1 [facility] 100 mg 5-01 TABLET BY ity of tablet 00:00: MOUTH EVERY DAY Medical Branch SERTRALINE 3-0 Yes [id number] TAKE 1 [facility] 100 mg 5-01 TABLET BY ity of tablet 00:00: MOUTH EVERY DAY Medical Branch SERTRALINE 3-0 Yes [id number] TAKE 1 [facility] 100 mg 5-01 TABLET BY ity of tablet 00:00: MOUTH EVERY DAY Medical Branch SERTRALINE 3-0 Yes [id number] TAKE 1 [facility] 100 mg 5-01 TABLET BY ity of tablet 00:00: MOUTH EVERY DAY Medical Branch SERTRALINE 2023-0 Yes [id number] TAKE 1 [facility] 100 mg 5-01 TABLET BY ity of tablet 00:00: MOUTH EVERY DAY Medical Branch SERTRALINE 3-0 Yes [id number] TAKE 1 [facility] 100 mg 5-01 TABLET BY ity of tablet 00:00: MOUTH EVERY DAY Medical Branch SERTRALINE 2023-0 Yes [id number] TAKE 1 [facility] 100 mg 5-01 TABLET BY ity of tablet 00:00: MOUTH EVERY DAY Medical Branch SERTRALINE 3-0 Yes [id number] TAKE 1 [facility] 100 mg 5-01 TABLET BY ity of tablet 00:00: MOUTH [place] 00 EVERY DAY Medical Branch SERTRALINE 2023-0 Yes [id number] TAKE 1 [facility] 100 mg 5-01 TABLET BY ity of tablet 00:00: MOUTH [place] 00 EVERY DAY Medical Branch SERTRALINE 2023-0 Yes [id number] TAKE 1 [facility] 100 mg 5-01 TABLET BY ity of tablet 00:00: MOUTH 00 EVERY DAY Medical Branch SERTRALINE 3-0 Yes [id number] TAKE 1 [facility] 100 mg 5-01 TABLET BY ity of tablet 00:00: MOUTH [place] 00 EVERY DAY Medical Branch SERTRALINE 2023-0 Yes [id number] TAKE 1 [facility] 100 mg 5-01 TABLET BY ity of tablet 00:00: MOUTH 00 EVERY DAY Medical Branch SERTRALINE 2023-0 Yes [id number] TAKE 1 [facility] 100 mg 5-01 TABLET BY ity of tablet 00:00: MOUTH 00 EVERY DAY Medical Branch SERTRALINE 3-0 Yes [id number] TAKE 1 [facility] 100 mg 5-01 TABLET BY ity of tablet 00:00: MOUTH 00 EVERY DAY Medical Branch SERTRALINE 2023-0 Yes [id number] TAKE 1 [facility] 100 mg 5-01 TABLET BY ity of tablet 00:00: MOUTH 00 EVERY DAY Medical Branch SERTRALINE 3-0 Yes [id number] TAKE 1 [facility] 100 mg 5-01 TABLET BY ity of tablet 00:00: MOUTH [place] 00 EVERY DAY Medical Branch SERTRALINE 3-0 Yes [id number] TAKE 1 [facility] 100 mg 5-01 TABLET BY ity of tablet 00:00: MOUTH 00 EVERY DAY Medical Branch SERTRALINE 2023-0 Yes [id number] TAKE 1 [facility] 100 mg 5-01 TABLET BY ity of tablet 00:00: MOUTH [place] 00 EVERY DAY Medical Branch SERTRALINE 2023-0 Yes [id number] TAKE 1 [facility] 100 mg 5-01 TABLET BY ity of tablet 00:00: MOUTH [place] 00 EVERY DAY Medical Branch SERTRALINE 2023-0 Yes [id number] TAKE 1 [facility] 100 mg 5-01 TABLET BY ity of tablet 00:00: MOUTH 00 EVERY DAY Medical Branch SERTRALINE 2023-0 Yes [id number] TAKE 1 [facility] 100 mg 5-01 TABLET BY ity of tablet 00:00: MOUTH [place] 00 EVERY DAY Medical Branch SERTRALINE 2023-0 Yes [id number] TAKE 1 [facility] 100 mg 5-01 TABLET BY ity of tablet 00:00: MOUTH [place] EVERY DAY Medical Branch clonazePAM 2023-0 Yes 1mg Take 1 Unive rs 1 mg tablet 4-23 tablet by ity of 00:00: mouth in [place] [address] the Medical morning Branch and 1 tablet at noon and 1 tablet in the evening. clonazePAM 2023-0 Yes 1mg Take 1 Unive rs 1 mg tablet 4-23 tablet by ity of 00:00: mouth in [place] [address] the Medical morning Branch and 1 tablet at noon and 1 tablet in the evening. clonazePAM 2023-0 Yes 1mg Take 1 Unive rs 1 mg tablet 4-23 tablet by ity of 00:00: mouth in [place] [address] the Medical morning [place] and 1 tablet at noon and 1 tablet in the evening. clonazePAM 2023-0 Yes 1mg Take 1 Unive rs 1 mg tablet 4-23 tablet by ity of 00:00: mouth in [place] [address] the Medical morning [place] and 1 tablet at noon and 1 tablet in the evening. clonazePAM 2023-0 Yes 1mg Take 1 Unive rs 1 mg tablet 4-23 tablet by ity of 00:00: mouth in [place] [address] the Medical morning [place] and 1 tablet at noon and 1 tablet in the evening. clonazePAM 2023-0 Yes 1mg Take 1 Unive rs 1 mg tablet 4-23 tablet by ity of 00:00: mouth in [place] [address] the Medical morning [place] and 1 tablet at noon and 1 tablet in the evening. clonazePAM 2023-0 Yes 1mg Take 1 Unive rs 1 mg tablet 4-23 tablet by ity of 00:00: mouth in [place] [address] the Medical morning [place] and 1 tablet at noon and 1 tablet in the evening. clonazePAM 2023-0 Yes 1mg Take 1 Unive rs 1 mg tablet 4-23 tablet by ity of 00:00: mouth in [place] [address] the Medical morning [place] and 1 tablet at noon and 1 tablet in the evening. clonazePAM 2023-0 Yes 1mg Take 1 Unive rs 1 mg tablet 4-23 tablet by ity of 00:00: mouth in [address] Medical morning [place] and 1 tablet at noon and 1 tablet in the evening. clonazePAM 2023-0 Yes 1mg Take 1 Unive rs 1 mg tablet 4-23 tablet by ity of 00:00: mouth in [place] [address] the Medical morning Branch and 1 tablet at noon and 1 tablet in the evening. clonazePAM 2023-0 Yes 1mg Take 1 Unive rs 1 mg tablet 4-23 tablet by ity of 00:00: mouth in [place] [address] the Medical morning Branch and 1 tablet at noon and 1 tablet in the evening. clonazePAM 2023-0 Yes 1mg Take 1 Unive rs 1 mg tablet 4-23 tablet by ity of 00:00: mouth in [place] [address] the Medical morning Branch and 1 tablet at noon and 1 tablet in the evening. clonazePAM 2023-0 Yes 1mg Take 1 Unive rs 1 mg tablet 4-23 tablet by ity of 00:00: mouth in [place] [address] the Medical morning Branch and 1 tablet at noon and 1 tablet in the evening. clonazePAM 2023-0 Yes 1mg Take 1 Unive rs 1 mg tablet 4-23 tablet by ity of 00:00: mouth in [place] [address] the Medical morning [place] and 1 tablet at noon and 1 tablet in the evening. clonazePAM 2023-0 Yes 1mg Take 1 Unive rs 1 mg tablet 4-23 tablet by ity of 00:00: mouth in [address] Medical morning [place] and 1 tablet at noon and 1 tablet in the evening. clonazePAM 2023-0 Yes 1mg Take 1 Unive rs 1 mg tablet 4-23 tablet by ity of 00:00: mouth in [place] [address] the Medical morning [place] and 1 tablet at noon and 1 tablet in the evening. clonazePAM 2023-0 Yes 1mg Take 1 Unive rs 1 mg tablet 4-23 tablet by ity of 00:00: mouth in [place] [address] the Medical morning Branch and 1 tablet at noon and 1 tablet in the evening. clonazePAM 2023-0 Yes 1mg Take 1 Unive rs 1 mg tablet 4-23 tablet by ity of 00:00: mouth in [place] [address] the Medical morning [place] and 1 tablet at noon and 1 tablet in the evening. clonazePAM 2023-0 Yes 1mg Take 1 Unive rs 1 mg tablet 4-23 tablet by ity of 00:00: mouth in [address] Medical morning [place] and 1 tablet at noon and 1 tablet in the evening. clonazePAM 2023-0 Yes 1mg Take 1 Unive rs 1 mg tablet 4-23 tablet by ity of 00:00: mouth in [place] [address] the Medical morning Branch and 1 tablet at noon and 1 tablet in the evening. clonazePAM 2023-0 Yes 1mg Take 1 [facility]ive rs 1 mg tablet 4-23 tablet by ity of 00:00: mouth in [place] [address] the Medical morning Branch and 1 tablet at noon and 1 tablet in the evening. clonazePAM 2023-0 Yes 1mg Take 1 [facility]ive rs 1 mg tablet 4-23 tablet by ity of 00:00: mouth in [place] [address] the Medical morning Branch and 1 tablet at noon and 1 tablet in the evening. clonazePAM 2023-0 Yes 1mg Take 1 [facility]ive rs 1 mg tablet 4-23 tablet by ity of 00:00: mouth in [place] [address] the Medical morning Branch and 1 tablet at noon and 1 tablet in the evening. clonazePAM 2023-0 Yes 1mg Take 1 [facility]ive rs 1 mg tablet 4-23 tablet by ity of 00:00: mouth in [place] [address] the Medical morning [place] and 1 tablet at noon and 1 tablet in the evening. clonazePAM 2023-0 Yes 1mg Take 1 [facility]ive rs 1 mg tablet 4-23 tablet by ity of 00:00: mouth in [address] Medical morning [place] and 1 tablet at noon and 1 tablet in the evening. clonazePAM 2023-0 Yes 1mg Take 1 Un[facility] rs 1 mg tablet 4-23 tablet by ity of 00:00: mouth in [place] [address] the Medical morning [place] and 1 tablet at noon and 1 tablet in the evening. clonazePAM 2023-0 Yes 1mg Take 1 [facility] rs 1 mg tablet 4-23 tablet by ity of 00:00: mouth in [place] [address] the Medical morning Branch and 1 tablet at noon and 1 tablet in the evening. clonazePAM 2023-0 Yes 1mg Take 1 [facility] rs 1 mg tablet 4-23 tablet by ity of 00:00: mouth in [place] [address] the Medical morning [place] and 1 tablet at noon and 1 tablet in the evening. clonazePAM 2023-0 Yes 1mg Take 1 [facility] rs 1 mg tablet 4-23 tablet by ity of 00:00: mouth in [address] Medical morning [place] and 1 tablet at noon and 1 [...] Take 1 Univ ers 1 mg tablet 4-18 09- tablet by it y of 00:00: 00:00 mouth in [place] 00 :00 the Medical morning Branch and 1 tablet at noon and 1 tablet in the evening. dextroamphe 2023-0 Yes [id number] 20mg Take 1 [facility] tamine-amph 3-30 tablet by ity of etamine 00:00: mouth in [place] ([facility]) 00 the Medical 20 mg morning Branch tablet and 1 tablet at noon and 1 tablet in the evening. dextroamphe 2023-0 Yes [id number] 20mg Take 1 [facility] tamine-amph 3-30 tablet by ity of etamine 00:00: mouth in [place] ([facility] 00 the Medical 20 mg morning Branch tablet and 1 tablet at noon and 1 tablet in the evening. dextroamphe 3-0 Yes [id number] 20mg Take 1 [facility] tamine-amph 3-30 tablet by ity of etamine 00:00: mouth in [place] ([facility] 00 the Medical 20 mg morning Branch tablet and 1 tablet at noon and 1 tablet in the evening. dextroamphe 2023-0 Yes [id number] 20mg Take 1 [facility] tamine-amph 3-30 tablet by ity of etamine 00:00: mouth in [place] ([facility]) 00 the Medical 20 mg morning Branch tablet and 1 tablet at noon and 1 tablet in the evening. dextroamphe 2023-0 Yes [id number] 20mg Take 1 [facility] tamine-amph 3-30 tablet by ity of etamine 00:00: mouth in [place] ([facility]) 00 the Medical 20 mg morning Branch tablet and 1 tablet at noon and 1 tablet in the evening. dextroamphe 2023-0 Yes [id number] 20mg Take 1 [facility] tamine-amph 3-30 tablet by ity of etamine 00:00: mouth in [place] ([facility]) 00 the Medical 20 mg morning Branch tablet and 1 tablet at noon and 1 tablet in the evening. dextroamphe 2023-0 Yes [id number] 20mg Take 1 [facility] tamine-amph 3-30 tablet by ity of etamine 00:00: mouth in [place] ([facility]) 00 the Medical 20 mg morning Branch tablet and 1 tablet at noon and 1 tablet in the evening. dextroamphe 2023-0 Yes [id number] 20mg Take 1 [facility] tamine-amph 3-30 tablet by ity of etamine 00:00: mouth in [place] ([facility]) 00 the Medical 20 mg morning Branch tablet and 1 tablet at noon and 1 tablet in the evening. dextroamphe 2023-0 Yes [id number] 20mg Take 1 [facility] tamine-amph 3-30 tablet by ity of etamine 00:00: mouth in [place] ([facility]) 00 the Medical 20 mg morning Branch tablet and 1 tablet at noon and 1 tablet in the evening. dextroamphe 2023-0 Yes [id number] 20mg Take 1 [facility] tamine-amph 3-30 tablet by ity of etamine 00:00: mouth in [place] ([facility]) 00 the Medical 20 mg morning Branch tablet and 1 tablet at noon and 1 tablet in the evening. dextroamphe 2023-0 3- No [id number] 20mg Take 1 [facility] tamine-amph 3-30 05-09 tablet by it y of etamine 00:00: 00:00 mouth in [place] ([facility]) 00 :00 the Medical 20 mg morning Branch tablet and 1 tablet at noon and 1 tablet in the evening. dextroamphe 2023-0 3- No [id number] 20mg Take 1 [facility] tamine-amph 3-30 05-09 tablet by it y of etamine 00:00: 00:00 mouth in [place] ([facility]) 00 :00 the Medical 20 mg morning Branch tablet and 1 tablet at noon and 1 tablet in the evening. ZONISAMIDE 2023-0 Yes [id number] TAKE 1 [facility] 100 mg 3-27 CAPSULE BY ity of capsule 00:00: MOUTH [place] 00 TWICE A Medical DAY Branch ZONISAMIDE 2023-0 Yes [id number] TAKE 1 [facility] 100 mg 3-27 CAPSULE BY ity of capsule 00:00: MOUTH [place] 00 TWICE A Medical DAY Branch ZONISAMIDE 3-0 Yes [id number] TAKE 1 [facility] 100 mg 3-27 CAPSULE BY ity of capsule 00:00: MOUTH TWICE A Medical DAY Branch ZONISAMIDE 3-0 Yes [id number] TAKE 1 [facility] 100 mg 3-27 CAPSULE BY ity of capsule 00:00: MOUTH TWICE A Medical DAY Branch ZONISAMIDE 3-0 Yes [id number] TAKE 1 [facility] 100 mg 3-27 CAPSULE BY ity of capsule 00:00: MOUTH [place] TWICE A Medical DAY Branch ZONISAMIDE 2022-0 Yes [id number] TAKE 1 [facility] 100 mg 3-27 CAPSULE BY ity of capsule 00:00: MOUTH TWICE A Medical DAY Branch ZONISAMIDE 2022-0 Yes [id number] TAKE 1 [facility] 100 mg 3-27 CAPSULE BY ity of capsule 00:00: MOUTH TWICE A Medical DAY Branch ZONISAMIDE 2022-0 Yes [id number] TAKE 1 [facility] 100 mg 3-27 CAPSULE BY ity of capsule 00:00: MOUTH TWICE A Medical DAY Branch ZONISAMIDE 3-0 Yes [id number] TAKE 1 [facility] 100 mg 3-27 CAPSULE BY ity of capsule 00:00: MOUTH TWICE A Medical DAY Branch ZONISAMIDE 2022-0 Yes [id number] TAKE 1 [facility] 100 mg 3-27 CAPSULE BY [facility] of capsule 00:00: MOUTH TWICE A Medical DAY Branch ZONISAMIDE 3-0 Yes [id number] TAKE 1 [facility] 100 mg 3-27 CAPSULE BY ity of capsule 00:00: MOUTH TWICE A Medical DAY Branch ZONISAMIDE 3-0 Yes [id number] TAKE 1 [facility] 100 mg 3-27 CAPSULE BY ity of capsule 00:00: MOUTH TWICE A Medical DAY Branch ZONISAMIDE 3-0 Yes [id number] TAKE 1 [facility] 100 mg 3-27 CAPSULE BY ity of capsule 00:00: MOUTH [place] 00 TWICE A Medical DAY Branch ZONISAMIDE 3-0 Yes [id number] TAKE 1 [facility] 100 mg 3-27 CAPSULE BY ity of capsule 00:00: MOUTH TWICE A Medical DAY Branch ZONISAMIDE 3-0 Yes [id number] TAKE 1 [facility] 100 mg 3-27 CAPSULE BY ity of capsule 00:00: MOUTH [place] 00 TWICE A Medical DAY Branch ZONISAMIDE 3-0 Yes [id number] TAKE 1 [facility] 100 mg 3-27 CAPSULE BY ity of capsule 00:00: MOUTH [place] TWICE A Medical DAY Branch ZONISAMIDE 3-0 Yes [id number] TAKE 1 [facility] 100 mg 3-27 CAPSULE BY ity of capsule 00:00: MOUTH TWICE A Medical DAY Branch ZONISAMIDE 3-0 Yes [id number] TAKE 1 [facility] 100 mg 3-27 CAPSULE BY ity of capsule 00:00: MOUTH TWICE A Medical DAY Branch ZONISAMIDE 3-0 Yes [id number] TAKE 1 [facility] 100 mg 3-27 CAPSULE BY ity of capsule 00:00: MOUTH TWICE A Medical DAY Branch ZONISAMIDE 2022-0 Yes [id number] TAKE 1 [facility] 100 mg 3-27 CAPSULE BY ity of capsule 00:00: MOUTH TWICE A Medical DAY Branch ZONISAMIDE 2022-0 Yes [id number] TAKE 1 [facility] 100 mg 3-27 CAPSULE BY [facility] of capsule 00:00: MOUTH TWICE A Medical DAY Branch ZONISAMIDE 3-0 Yes [id number] TAKE 1 [facility] 100 mg 3-27 CAPSULE BY it[facility] of capsule 00:00: MOUTH TWICE A Medical DAY Branch ZONISAMIDE 2022-0 Yes [id number] TAKE 1 [facility] 100 mg 3-27 CAPSULE BY ity of capsule 00:00: MOUTH TWICE A Medical DAY Branch ZONISAMIDE 3-0 Yes [id number] TAKE 1 [facility] 100 mg 3-27 CAPSULE BY ity of capsule 00:00: MOUTH [place] TWICE A Medical DAY Branch ZONISAMIDE 3-0 Yes [id number] TAKE 1 [facility] 100 mg 3-27 CAPSULE BY ity of capsule 00:00: MOUTH TWICE A Medical DAY Branch ZONISAMIDE 3-0 Yes [id number] TAKE 1 [facility] 100 mg 3-27 CAPSULE BY ity of capsule 00:00: MOUTH TWICE A Medical DAY Branch ZONISAMIDE 3-0 Yes [id number] TAKE 1 [facility] 100 mg 3-27 CAPSULE BY ity of capsule 00:00: MOUTH TWICE A Medical DAY Branch ZONISAMIDE 3-0 Yes [id number] TAKE 1 [facility] 100 mg 3-27 CAPSULE BY it[facility] of capsule 00:00: MOUTH [place] 00 TWICE A Medical DAY Branch ZONISAMIDE 3-0 Yes [id number] TAKE 1 [facility] 100 mg 3-27 CAPSULE BY it[facility] of capsule 00:00: MOUTH [place] TWICE A Medical DAY Branch ZONISAMIDE 3-0 Yes [id number] TAKE 1 [facility] 100 mg 3-27 CAPSULE BY it[facility] of capsule 00:00: MOUTH [place] TWICE A Medical DAY Branch ZONISAMIDE 3-0 Yes [id number] TAKE 1 [facility] 100 mg 3-27 CAPSULE BY ity of capsule 00:00: MOUTH [place] 00 TWICE A Medical DAY Branch ZONISAMIDE 2022-0 Yes [id number] TAKE 1 [facility] 100 mg 3-27 CAPSULE BY ity of capsule 00:00: MOUTH [place] TWICE A Medical DAY Branch ZONISAMIDE 2022-0 Yes [id number] TAKE 1 [facility] 100 mg 3-27 CAPSULE BY ity of capsule 00:00: MOUTH TWICE A Medical DAY Branch ZONISAMIDE 2022-0 Yes [id number] TAKE 1 [facility] 100 mg 3-27 CAPSULE BY it[facility] of capsule 00:00: MOUTH [place] 00 TWICE A Medical DAY Branch ZONISAMIDE 3-0 Yes [id number] TAKE 1 [facility] 100 mg 3-27 CAPSULE BY it[facility] of capsule 00:00: MOUTH TWICE A Medical DAY Branch ZONISAMIDE 2022-0 Yes [id number] TAKE 1 [facility] 100 mg 3-27 CAPSULE BY it[facility] of capsule 00:00: MOUTH TWICE A Medical DAY Branch ZONISAMIDE 3-0 Yes [id number] TAKE 1 [facility] 100 mg 3-27 CAPSULE BY ity of capsule 00:00: MOUTH [place] 00 TWICE A Medical DAY Branch ZONISAMIDE 3-0 Yes [id number] TAKE 1 [facility] 100 mg 3-27 CAPSULE BY ity of capsule 00:00: MOUTH [place] 00 TWICE A Medical DAY Branch ZONISAMIDE 3-0 Yes [id number] TAKE 1 [facility] 100 mg 3-27 CAPSULE BY it[facility] of capsule 00:00: MOUTH [place] 00 TWICE A Medical DAY Branch ZONISAMIDE 3-0 Yes [id number] TAKE 1 [facility] 100 mg 3-27 CAPSULE BY it[facility] of capsule 00:00: MOUTH [place] TWICE A Medical DAY Branch ZONISAMIDE 2023-0 Yes [id number] TAKE 1 [facility] 100 mg 3-27 CAPSULE BY it[facility] of capsule 00:00: MOUTH [place] 00 TWICE A Medical DAY Branch ZONISAMIDE 2022-0 Yes [id number] TAKE 1 [facility] 100 mg 3-27 CAPSULE BY ity of capsule 00:00: MOUTH 00 TWICE A Medical DAY Branch ZONISAMIDE 2022-0 Yes [id number] TAKE 1 [facility] 100 mg 3-27 CAPSULE BY it[facility] of capsule 00:00: MOUTH [place] TWICE A Medical DAY Branch ZONISAMIDE 2022-0 Yes [id number] TAKE 1 [facility] 100 mg 3-27 CAPSULE BY ity of capsule 00:00: MOUTH TWICE A Medical DAY Branch ZONISAMIDE 2022-0 Yes [id number] TAKE 1 [facility] 100 mg 3-27 CAPSULE BY it[facility] of capsule 00:00: MOUTH TWICE A Medical DAY Branch ZONISAMIDE 2022-0 Yes [id number] TAKE 1 [facility] 100 mg 3-27 CAPSULE BY it[facility] of capsule 00:00: MOUTH TWICE A Medical DAY Branch ZONISAMIDE 2022-0 Yes [id number] TAKE 1 [facility] 100 mg 3-27 CAPSULE BY [facility] of capsule 00:00: MOUTH TWICE A Medical DAY Branch ZONISAMIDE 2022-0 Yes [id number] TAKE 1 [facility] 100 mg 3-27 CAPSULE BY it[facility] of capsule 00:00: MOUTH TWICE A Medical DAY Branch ZONISAMIDE 2022-0 Yes [id number] TAKE 1 [facility] 100 mg 3-27 CAPSULE BY [facility] of capsule 00:00: MOUTH TWICE A Medical DAY Branch ZONISAMIDE 3-0 Yes [id number] TAKE 1 [facility] 100 mg 3-27 CAPSULE BY it[facility] of capsule 00:00: MOUTH 00 TWICE A Medical DAY Branch ZONISAMIDE 3-0 Yes [id number] TAKE 1 [facility] 100 mg 3-27 CAPSULE BY it[facility] of capsule 00:00: MOUTH 00 TWICE A Medical DAY Branch ZONISAMIDE 3-0 Yes [id number] TAKE 1 [facility] 100 mg 3-27 CAPSULE BY it[facility] of capsule 00:00: MOUTH 00 TWICE A Medical DAY Branch ZONISAMIDE 3-0 Yes [id number] TAKE 1 [facility] 100 mg 3-27 CAPSULE BY it[facility] of capsule 00:00: MOUTH [place] 00 TWICE A Medical DAY Branch ZONISAMIDE 2023-0 Yes [id number] TAKE 1 [facility] 100 mg 3-27 CAPSULE BY ity of capsule 00:00: MOUTH [place] TWICE A Medical DAY Branch ZONISAMIDE 3-0 Yes [id number] TAKE 1 [facility] 100 mg 3-27 CAPSULE BY it[facility] of capsule 00:00: MOUTH [place] TWICE A Medical DAY Branch ZONISAMIDE 3-0 Yes [id number] TAKE 1 [facility] 100 mg 3-27 CAPSULE BY ity of capsule 00:00: MOUTH [place] TWICE A Medical DAY Branch ZONISAMIDE 3-0 Yes [id number] TAKE 1 [facility] 100 mg 3-27 CAPSULE BY ity of capsule 00:00: MOUTH TWICE A Medical DAY Branch ZONISAMIDE 3-0 Yes [id number] TAKE 1 [facility] 100 mg 3-27 CAPSULE BY ity of capsule 00:00: MOUTH TWICE A Medical DAY Branch ZONISAMIDE 3-0 Yes [id number] TAKE 1 [facility] 100 mg 3-27 CAPSULE BY ity of capsule 00:00: MOUTH TWICE A Medical DAY Branch ZONISAMIDE 3-0 Yes [id number] TAKE 1 [facility] 100 mg 3-27 CAPSULE BY ity of capsule 00:00: MOUTH TWICE A Medical DAY Branch ZONISAMIDE 3-0 Yes [id number] TAKE 1 [facility] 100 mg 3-27 CAPSULE BY ity of capsule 00:00: MOUTH TWICE A Medical DAY Branch ZONISAMIDE 3-0 Yes [id number] TAKE 1 [facility] 100 mg 3-27 CAPSULE BY ity of capsule 00:00: MOUTH [place] TWICE A Medical DAY Branch ZONISAMIDE 3-0 Yes [id number] TAKE 1 [facility] 100 mg 3-27 CAPSULE BY ity of capsule 00:00: MOUTH 00 TWICE A Medical DAY Branch ZONISAMIDE 3-0 Yes [id number] TAKE 1 [facility] 100 mg 3-27 CAPSULE BY ity of capsule 00:00: MOUTH [place] TWICE A Medical DAY Branch ZONISAMIDE 3-0 Yes [id number] TAKE 1 [facility] 100 mg 3-27 CAPSULE BY ity of capsule 00:00: MOUTH [place] TWICE A Medical DAY Branch ZONISAMIDE 3-0 Yes [id number] TAKE 1 [facility] 100 mg 3-27 CAPSULE BY ity of capsule 00:00: MOUTH [place] 00 TWICE A Medical DAY Branch ZONISAMIDE 3-0 Yes [id number] TAKE 1 [facility] 100 mg 3-27 CAPSULE BY ity of capsule 00:00: MOUTH [place] 00 TWICE A Medical DAY Branch ibuprofen 3-0 2022- No 800mg 800 mg, Uni vers (IBU) 3-14 03-14 Oral, ity of tablet 800 15:15: 15:05 ONCE, 1 [place] as mg 00 :00 dose, On Medical Tue Branch 06/09/22 at 1015, [place] dextroamphe 3-0 Yes [id number] 20mg Take 1 [facility] tamine-amph 3-09 tablet by ity of etamine 00:00: mouth in [place] ([facility]) 00 the Medical 20 mg morning Branch tablet and 1 tablet at noon and 1 tablet in the evening. dextroamphe 3-0 Yes [id number] 20mg Take 1 [facility] tamine-amph 3-09 tablet by ity of etamine 00:00: mouth in [place] ([facility]) 00 the Medical 20 mg morning Branch tablet and 1 tablet at noon and 1 tablet in the evening. dextroamphe 3-0 Yes [id number] 20mg Take 1 [facility] tamine-amph 3-09 tablet by ity of etamine 00:00: mouth in [place] ([facility]) 00 the Medical 20 mg morning Branch tablet and 1 tablet at noon and 1 tablet in the evening. dextroamphe 3-0 Yes [id number] 20mg Take 1 [facility] tamine-amph 3-09 tablet by ity of etamine 00:00: mouth in [place] ([facility]) 00 the Medical 20 mg morning Branch tablet and 1 tablet at noon and 1 tablet in the evening. dextroamphe 3-0 Yes [id number] 20mg Take 1 [facility] tamine-amph 3-09 tablet by ity of etamine 00:00: mouth in [place] ([facility]) 00 the Medical 20 mg morning Branch tablet and 1 tablet at noon and 1 tablet in the evening. dextroamphe 2023-0 Yes [id number] 20mg Take 1 [facility] tamine-amph 3-09 tablet by ity of etamine 00:00: mouth in [place] [facility] 00 the Medical 20 mg morning Branch tablet and 1 tablet at noon and 1 tablet in the evening. dextroamphe 2023-0 Yes [id number] 20mg Take 1 [facility] tamine-amph 3-09 tablet by ity of etamine 00:00: mouth in [place] ([facility] 00 the Medical 20 mg morning Branch tablet and 1 tablet at noon and 1 tablet in the evening. dextroamphe 2023-0 Yes [id number] 20mg Take 1 [facility] tamine-amph 3-09 tablet by ity of etamine 00:00: mouth in [place] ([facility] 00 the Medical 20 mg morning Branch tablet and 1 tablet at noon and 1 tablet in the evening. dextroamphe 2023-0 Yes [id number] 20mg Take 1 [facility] tamine-amph 3-09 tablet by ity of etamine 00:00: mouth in [place] ([facility] 00 the Medical 20 mg morning Branch tablet and 1 tablet at noon and 1 tablet in the evening. dextroamphe 2023-0 Yes [id number] 20mg Take 1 [facility] tamine-amph 3-09 tablet by ity of etamine 00:00: mouth in [place] ([facility] 00 the Medical 20 mg morning Branch tablet and 1 tablet at noon and 1 tablet in the evening. dextroamphe 3-0 3- No [id number] 20mg Take 1 [facility] tamine-amph 3-09 03-30 tablet by it y of etamine 00:00: 00:00 mouth in [place] ([facility] 00 :00 the Medical 20 mg morning Branch tablet and 1 tablet at noon and 1 tablet in the evening. dextroamphe 2023-0 2023- No [id number] 20mg Take 1 [facility] tamine-amph 3-09 03-30 tablet by it y of etamine 00:00: 00:00 mouth in [place] ([facility] 00 :00 the Medical 20 mg morning Branch tablet and 1 tablet at noon and 1 tablet in the evening. dextroamphe 2023-0 Yes [id number] 12.5mg Take 1 [facility] tamine-amph 2-27 tablet by ity of etamine 00:00: mouth in [place] ([facility] 00 the Medical 12.5 mg morning Branch tablet and 1 tablet at noon and 1 tablet in the evening. clonazePAM 2023-0 Yes [id number] 1mg Take 2 [facility] (KLONOPIN) 2-27 tablets by ity of 0.5 mg 00:00: mouth in [place] tablet 00 the Medical morning Branch and 2 tablets at noon and 2 tablets in the evening. dextroamphe 2023-0 Yes [id number] 12.5mg Take 1 [facility] tamine-amph 2-27 tablet by ity of etamine 00:00: mouth in [place] ([facility]) 00 the Medical 12.5 mg morning Branch tablet and 1 tablet at noon and 1 tablet in the evening. clonazePAM 2023-0 Yes [id number] 1mg Take 2 [facility] (KLONOPIN) 2-27 tablets by ity of 0.5 mg 00:00: mouth in [place] tablet 00 the Medical morning Branch and 2 tablets at noon and 2 tablets in the evening. clonazePAM 2023-0 Yes [id number] 1mg Take 2 [facility] (KLONOPIN) 2-27 tablets by ity of 0.5 mg 00:00: mouth in [place] tablet 00 the Medical morning Branch and 2 tablets at noon and 2 tablets in the evening. clonazePAM 2023-0 Yes [id number] 1mg Take 2 [facility] (KLONOPIN) 2-27 tablets by ity of 0.5 mg 00:00: mouth in [place] tablet 00 the Medical morning Branch and 2 tablets at noon and 2 tablets in the evening. clonazePAM 2023-0 Yes [id number] 1mg Take 2 [facility] (KLONOPIN) 2-27 tablets by ity of 0.5 mg 00:00: mouth in [place] tablet 00 the Medical morning Branch and 2 tablets at noon and 2 tablets in the evening. clonazePAM 2023-0 Yes [id number] 1mg Take 2 [facility] (KLONOPIN) 2-27 tablets by ity of 0.5 mg 00:00: mouth in [place] tablet 00 the Medical morning Branch and 2 tablets at noon and 2 tablets in the evening. clonazePAM 2023-0 Yes [id number] 1mg Take 2 [facility] (KLONOPIN) 2-27 tablets by ity of 0.5 mg 00:00: mouth in [place] tablet 00 the Medical morning Branch and 2 tablets at noon and 2 tablets in the evening. clonazePAM 2023-0 Yes [id number] 1mg Take 2 [facility] (KLONOPIN) 2-27 tablets by ity of 0.5 mg 00:00: mouth in [place] tablet 00 the Medical morning Branch and 2 tablets at noon and 2 tablets in the evening. clonazePAM 2023-0 Yes [id number] 1mg Take 2 [facility] (KLONOPIN) 2-27 tablets by ity of 0.5 mg 00:00: mouth in [place] tablet 00 the Medical morning Branch and 2 tablets at noon and 2 tablets in the evening. clonazePAM 2023-0 Yes [id number] 1mg Take 2 [facility] (KLONOPIN) 2-27 tablets by ity of 0.5 mg 00:00: mouth in [place] tablet 00 the Medical morning Branch and 2 tablets at noon and 2 tablets in the evening. clonazePAM 2023-0 Yes [id number] 1mg Take 2 [facility] (KLONOPIN) 2-27 tablets by ity of 0.5 mg 00:00: mouth in [place] tablet 00 the Medical morning Branch and 2 tablets at noon and 2 tablets in the evening. clonazePAM 2023-0 Yes [id number] 1mg Take 2 [facility] (KLONOPIN) 2-27 tablets by ity of 0.5 mg 00:00: mouth in [place] tablet 00 the Medical morning Branch and 2 tablets at noon and 2 tablets in the evening. clonazePAM 2023-0 Yes [id number] 1mg Take 2 [facility] (KLONOPIN) 2-27 tablets by ity of 0.5 mg 00:00: mouth in [place] tablet 00 the Medical morning Branch and 2 tablets at noon and 2 tablets in the evening. clonazePAM 2023-0 Yes [id number] 1mg Take 2 [facility] (KLONOPIN) 2-27 tablets by ity of 0.5 mg 00:00: mouth in [place] tablet 00 the Medical morning Branch and 2 tablets at noon and 2 tablets in the evening. clonazePAM 2023-0 Yes [id number] 1mg Take 2 [facility] (KLONOPIN) 2-27 tablets by ity of 0.5 mg 00:00: mouth in [place] tablet 00 the Medical morning Branch and 2 tablets at noon and 2 tablets in the evening. clonazePAM 2023-0 Yes [id number] 1mg Take 2 [facility] (KLONOPIN) 2-27 tablets by ity of 0.5 mg 00:00: mouth in [place] tablet 00 the Medical morning Branch and 2 tablets at noon and 2 tablets in the evening. clonazePAM 2023-0 Yes [id number] 1mg Take 2 [facility] (KLONOPIN) 2-27 tablets by ity of 0.5 mg 00:00: mouth in [place] tablet 00 the Medical morning Branch and 2 tablets at noon and 2 tablets in the evening. clonazePAM 2023-0 Yes [id number] 1mg Take 2 [facility] (KLONOPIN) 2-27 tablets by ity of 0.5 mg 00:00: mouth in [place] tablet 00 the Medical morning Branch and 2 tablets at noon and 2 tablets in the evening. clonazePAM 2023-0 Yes [id number] 1mg Take 2 [facility] (KLONOPIN) 2-27 tablets by ity of 0.5 mg 00:00: mouth in [place] tablet 00 the Medical morning Branch and 2 tablets at noon and 2 tablets in the evening. clonazePAM 2023-0 Yes [id number] 1mg Take 2 [facility] (KLONOPIN) 2-27 tablets by ity of 0.5 mg 00:00: mouth in [place] tablet 00 the Medical morning Branch and 2 tablets at noon and 2 tablets in the evening. clonazePAM 2023-0 Yes [id number] 1mg Take 2 [facility] (KLONOPIN) 2-27 tablets by ity of 0.5 mg 00:00: mouth in [place] tablet 00 the Medical morning Branch and 2 tablets at noon and 2 tablets in the evening. clonazePAM 2023-0 Yes [id number] 1mg Take 2 [facility] (KLONOPIN) 2-27 tablets by ity of 0.5 mg 00:00: mouth in [place] tablet 00 the Medical morning Branch and 2 tablets at noon and 2 tablets in the evening. clonazePAM 2023-0 Yes [id number] 1mg Take 2 [facility] (KLONOPIN) 2-27 tablets by ity of 0.5 mg 00:00: mouth in [place] tablet 00 the Medical morning Branch and 2 tablets at noon and 2 tablets in the evening. clonazePAM 2023-0 Yes [id number] 1mg Take 2 [facility] (KLONOPIN) 2-27 tablets by ity of 0.5 mg 00:00: mouth in [place] tablet 00 the Medical morning Branch and 2 tablets at noon and 2 tablets in the evening. clonazePAM 2023-0 Yes [id number] 1mg Take 2 [facility] (KLONOPIN) 2-27 tablets by ity of 0.5 mg 00:00: mouth in [place] tablet 00 the Medical morning Branch and 2 tablets at noon and 2 tablets in the evening. clonazePAM 2023-0 Yes [id number] 1mg Take 1 [facility] 1 mg tablet 2-27 tablet by ity of 00:00: mouth in [place] 00 the Medical morning Branch and 1 tablet at noon and 1 tablet in the evening. dextroamphe 2023-0 Yes [id number] 12.5mg Take 1 [facility] tamine-amph 2-27 tablet by ity of etamine 00:00: mouth in [place] ([facility]) 00 the Medical 12.5 mg morning Branch tablet and 1 tablet at noon and 1 tablet in the evening. clonazePAM 2023-0 Yes [id number] 1mg Take 1 [facility] 1 mg tablet 2-27 tablet by ity of 00:00: mouth in [place] 00 the Medical morning Branch and 1 tablet at noon and 1 tablet in the evening. dextroamphe 2023-0 Yes [id number] 12.5mg Take 1 [facility] tamine-amph 2-27 tablet by ity of etamine 00:00: mouth in [place] ([facility]) 00 the Medical 12.5 mg morning Branch tablet and 1 tablet at noon and 1 tablet in the evening. dextroamphe 2023-0 Yes [id number] 12.5mg Take 1 [facility] tamine-amph 2-27 tablet by ity of etamine 00:00: mouth in [place] ([facility]) 00 the Medical 12.5 mg morning Branch tablet and 1 tablet at noon and 1 tablet in the evening. clonazePAM 2023-0 Yes [id number] 1mg Take 2 [facility] (KLONOPIN) 2-27 tablets by ity of 0.5 mg 00:00: mouth in [place] tablet 00 the Medical morning Branch and 2 tablets at noon and 2 tablets in the evening. dextroamphe 2023-0 Yes [id number] 12.5mg Take 1 [facility] tamine-amph 2-27 tablet by ity of etamine 00:00: mouth in [place] ([facility]) 00 the Medical 12.5 mg morning Branch tablet and 1 tablet at noon and 1 tablet in the evening. clonazePAM 2023-0 Yes [id number] 1mg Take 2 [facility] (KLONOPIN) 2-27 tablets by ity of 0.5 mg 00:00: mouth in [place] tablet 00 the Medical morning Branch and 2 tablets at noon and 2 tablets in the evening. dextroamphe 2023-0 Yes [id number] 12.5mg Take 1 [facility] tamine-amph 2-27 tablet by ity of etamine 00:00: mouth in [place] ([facility]) 00 the Medical 12.5 mg morning Branch tablet and 1 tablet at noon and 1 tablet in the evening. clonazePAM 2023-0 Yes [id number] 1mg Take 2 [facility] (KLONOPIN) 2-27 tablets by ity of 0.5 mg 00:00: mouth in [place] tablet 00 the Medical morning Branch and 2 tablets at noon and 2 tablets in the evening. clonazePAM 2023-0 2023- No [id number] 1mg Take 2 [facility] (KLONOPIN) 2-27 -09 tablets by it y of 0.5 mg 00:00: 00:00 mouth in [place] tablet 00 :00 the Medical morning Branch and 2 tablets at noon and 2 tablets in the evening. clonazePAM 2023-0 3- No [id number] 1mg Take 2 [facility] (KLONOPIN) 2-27 - tablets by it y of 0.5 mg 00:00: 00:00 mouth in [place] tablet 00 :00 the Medical morning Branch and 2 tablets at noon and 2 tablets in the evening. dextroamphe 2023-0 3- No [id number] 12.5mg Take 1 [facility] tamine-amph 2-27 - tablet by it y of etamine 00:00: 00:00 mouth in [place] ([facility]) 00 :00 the Medical 12.5 mg morning Branch tablet and 1 tablet at noon and 1 tablet in the evening. clonazePAM 2023-0 3- No [id number] 1mg Take 1 [facility] 1 mg tablet 2-25 05- tablet by it y of 00:00: 00:00 mouth in [place] 00 :00 the Medical morning Branch and 1 tablet at noon and 1 tablet in the evening. dextroamphe 2023-0 Yes [id number] 12.5mg Take 1 [facility] tamine-amph 2-01 tablet by ity of etamine 00:00: mouth in [place] ([facility]) 00 the Medical 12.5 mg morning Branch tablet and 1 tablet at noon and 1 tablet in the evening. dextroamphe 2023-0 Yes [id number] 12.5mg Take 1 [facility] tamine-amph 2-01 tablet by ity of etamine 00:00: mouth in [place] ([facility]) 00 the Medical 12.5 mg morning Branch tablet and 1 tablet at noon and 1 tablet in the evening. dextroamphe 2023-0 Yes [id number] 12.5mg Take 1 [facility] tamine-amph 2-01 tablet by ity of etamine 00:00: mouth in [place] ([facility]) 00 the Medical 12.5 mg morning Branch tablet and 1 tablet at noon and 1 tablet in the evening. dextroamphe 2023-0 Yes [id number] 12.5mg Take 1 [facility] tamine-amph 2-01 tablet by ity of etamine 00:00: mouth in [place] ([facility] 00 the Medical 12.5 mg morning Branch tablet and 1 tablet at noon and 1 tablet in the evening. dextroamphe 2023-0 3- No [id number] 12.5mg Take 1 [facility] tamine-amph 2-01 02-27 tablet by it y of etamine 00:00: 00:00 mouth in [place] ([facility] 00 :00 the Medical 12.5 mg morning Branch tablet and 1 tablet at noon and 1 tablet in the evening. dextroamphe 2023-0 3- No [id number] 12.5mg Take 1 [facility] tamine-amph 2-01 -27 tablet by it y of etamine 00:00: 00:00 mouth in [place] ([facility] 00 :00 the Medical 12.5 mg morning Branch tablet and 1 tablet at noon and 1 tablet in the evening. dextroamphe 2023-0 3- No [id number] 12.5mg Take 1 [facility] tamine-amph 2-01 -27 tablet by it y of etamine 00:00: 00:00 mouth in [place] ([facility]) 00 :00 the Medical 12.5 mg morning Branch tablet and 1 tablet at noon and 1 tablet in the evening. dextroamphe 2023-0 Yes [id number] 12.5mg Take 1 [facility] tamine-amph 1-10 tablet by ity of etamine 00:00: mouth in [place] ([facility]) 00 the Medical 12.5 mg morning Branch tablet and 1 tablet at noon and 1 tablet in the evening. dextroamphe 2023-0 Yes [id number] 12.5mg Take 1 [facility] tamine-amph 1-10 tablet by ity of etamine 00:00: mouth in [place] ([facility] 00 the Medical 12.5 mg morning Branch tablet and 1 tablet at noon and 1 tablet in the evening. dextroamphe 2023-0 Yes [id number] 12.5mg Take 1 [facility] tamine-amph 1-10 tablet by ity of etamine 00:00: mouth in [place] ([facility]) 00 the Medical 12.5 mg morning Branch tablet and 1 tablet at noon and 1 tablet in the evening. dextroamphe 2023-0 Yes [id number] 12.5mg Take 1 [facility] tamine-amph 1-10 tablet by ity of etamine 00:00: mouth in [place] ([facility] 00 the Medical 12.5 mg morning Branch tablet and 1 tablet at noon and 1 tablet in the evening. dextroamphe 2023-0 Yes [id number] 12.5mg Take 1 [facility] tamine-amph 1-10 tablet by ity of etamine 00:00: mouth in [place] ([facility] 00 the Medical 12.5 mg morning Branch tablet and 1 tablet at noon and 1 tablet in the evening. dextroamphe 2023-0 Yes [id number] 12.5mg Take 1 [facility] tamine-amph 1-10 tablet by ity of etamine 00:00: mouth in [place] ([facility] 00 the Medical 12.5 mg morning Branch tablet and 1 tablet at noon and 1 tablet in the evening. dextroamphe 2023-0 Yes [id number] 12.5mg Take 1 [facility] tamine-amph 1-10 tablet by ity of etamine 00:00: mouth in [place] ([facility]) 00 the Medical 12.5 mg morning Branch tablet and 1 tablet at noon and 1 tablet in the evening. dextroamphe 2023-0 2023- No [id number] 12.5mg Take 1 [facility] tamine-amph 1-10 04-29 tablet by it y of etamine 00:00: 00:00 mouth in [place] ([facility] 00 :00 the Medical 12.5 mg morning Branch tablet and 1 tablet at noon and 1 tablet in the evening. dextroamphe 2023-0 3- No [id number] 12.5mg Take 1 [facility] tamine-amph 1-10 02- tablet by it y of etamine 00:00: 00:00 mouth in [place] ([facility]) 00 :00 the Medical 12.5 mg morning Branch tablet and 1 tablet at noon and 1 tablet in the evening. dextroamphe 3-0 Yes [id number] 15mg Take 1 [facility] tamine-amph 1-09 tablet by ity of etamine 00:00: mouth in [place] [facility] 00 the Medical 15 mg morning Branch tablet and 1 tablet at noon and 1 tablet in the evening. dextroamphe 3-0 Yes [id number] 15mg Take 1 [facility] tamine-amph 1-09 tablet by ity of etamine 00:00: mouth in [place] ([facility]) 00 the Medical 15 mg morning Branch tablet and 1 tablet at noon and 1 tablet in the evening. dextroamphe 2022-0 3- No [id number] 15mg Take 1 [facility] tamine-amph 1-09 -10 tablet by it y of etamine 00:00: 00:00 mouth in [place] ([facility]) 00 :00 the Medical 15 mg morning Branch tablet and 1 tablet at noon and 1 tablet in the evening. SYNTHROID 2022-0 Yes [id number] TAKE 1 U nivers 150 mcg 1-02 TABLET BY ity of tablet 00:00: [facility] 00 EVERY DAY Medical IN THE [place] MORNING SYNTHROID 2022-0 Yes [id number] TAKE 1 U nivers 150 mcg 1-02 TABLET BY [facility] of tablet 00:00: [place] [facility] [facility] EVERY DAY [facility] [place] SYNTHROID 2022-0 Yes [id number] TAKE 1 U nivers 150 mcg 1-02 TABLET BY [facility]y of tablet 00:00: MOUTH [place] 00 EVERY DAY Medical [place] THE [place] SYNTHROID 2022-0 Yes [id number] TAKE 1 [facility] nivers 150 mcg 1-02 TABLET BY ity of tablet 00:00: [facility] 00 EVERY DAY Medical [place] THE [place] SYNTHROID 3-0 Yes [id number] TAKE 1 U nivers 150 mcg 1-02 TABLET BY ity of tablet 00:00: MOUTH [place] 00 EVERY DAY Medical [place] SYNTHROID 2022-0 Yes [id number] TAKE 1 U nivers 150 mcg 1-02 TABLET BY ity of tablet 00:00: [facility] 00 EVERY DAY Medical IN THE [facility] SYNTHROID 0 Yes [id number] TAKE 1 U nivers 150 mcg 1-02 TABLET BY ity of tablet 00:00: MOUTH [place] 00 EVERY DAY Medical IN THE [facility] SYNTHROID 0 Yes [id number] TAKE 1 U nivers 150 mcg 1-02 TABLET BY ity of tablet 00:00: MOUTH [place] 00 EVERY DAY Medical IN THE [facility] SYNTHROID 0 Yes [id number] TAKE 1 U nivers 150 mcg 1-02 TABLET BY ity of tablet 00:00: MOUTH [place] 00 EVERY DAY Medical IN THE [facility] SYNTHROID Yes [id number] TAKE 1 U nivers 150 mcg 1-02 TABLET BY ity of tablet 00:00: MOUTH [place] 00 EVERY DAY Medical IN THE [facility] SYNTHROID Yes [id number] TAKE 1 U nivers 150 mcg 1-02 TABLET BY ity of tablet 00:00: MOUTH [place] 00 EVERY DAY Medical IN THE [facility] SYNTHROID Yes [id number] TAKE 1 U nivers 150 mcg 1-02 TABLET BY ity of tablet 00:00: MOUTH [place] 00 EVERY DAY Medical IN THE [facility] SYNTHROID 0 Yes [id number] TAKE 1 U nivers 150 mcg 1-02 TABLET BY ity of tablet 00:00: MOUTH [place] 00 EVERY DAY Medical IN THE [facility] SYNTHROID 0 Yes [id number] TAKE 1 U nivers 150 mcg 1-02 TABLET BY ity of tablet 00:00: MOUTH [place] 00 EVERY DAY Medical IN THE [facility] SYNTHROID 0 Yes [id number] TAKE 1 U nivers 150 mcg 1-02 TABLET BY ity of tablet 00:00: MOUTH [place] 00 EVERY DAY Medical IN THE [facility] SYNTHROID 0 Yes [id number] TAKE 1 U nivers 150 mcg 1-02 TABLET BY ity of tablet 00:00: MOUTH [place] 00 EVERY DAY Medical IN THE [facility] SYNTHROID 0 Yes [id number] TAKE 1 U nivers 150 mcg 1-02 TABLET BY ity of tablet 00:00: MOUTH [place] 00 EVERY DAY Medical IN THE [facility] SYNTHROID 0 Yes [id number] TAKE 1 U nivers 150 mcg 1-02 TABLET BY ity of tablet 00:00: MOUTH [place] 00 EVERY DAY Medical IN THE [facility] SYNTHROID Yes [id number] TAKE 1 U nivers 150 mcg 1-02 TABLET BY ity of tablet 00:00: MOUTH [place] 00 EVERY DAY Medical IN THE [facility] SYNTHROID 0 Yes [id number] TAKE 1 U nivers 150 mcg 1-02 TABLET BY ity of tablet 00:00: MOUTH [place] 00 EVERY DAY Medical IN THE [facility] SYNTHROID Yes [id number] TAKE 1 U nivers 150 mcg 1-02 TABLET BY ity of tablet 00:00: MOUTH [place] 00 EVERY DAY Medical IN THE [facility] SYNTHROID Yes [id number] TAKE 1 U nivers 150 mcg 1-02 TABLET BY ity of tablet 00:00: MOUTH [place] 00 EVERY DAY Medical IN THE [facility] SYNTHROID Yes [id number] TAKE 1 U nivers 150 mcg 1-02 TABLET BY ity of tablet 00:00: MOUTH [place] 00 EVERY DAY Medical IN THE [facility] SYNTHROID Yes [id number] TAKE 1 U nivers 150 mcg 1-02 TABLET BY ity of tablet 00:00: MOUTH [place] 00 EVERY DAY Medical IN THE [facility] SYNTHROID Yes [id number] TAKE 1 U nivers 150 mcg 1-02 TABLET BY ity of tablet 00:00: MOUTH [place] 00 EVERY DAY Medical IN THE [facility] SYNTHROID Yes [id number] TAKE 1 U nivers 150 mcg 1-02 TABLET BY ity of tablet 00:00: MOUTH [place] 00 EVERY DAY Medical IN THE [facility] SYNTHROID Yes [id number] TAKE 1 U nivers 150 mcg 1-02 TABLET BY ity of tablet 00:00: MOUTH [place] 00 EVERY DAY Medical IN THE [facility] SYNTHROID 0 Yes [id number] TAKE 1 U nivers 150 mcg 1-02 TABLET BY ity of tablet 00:00: MOUTH [place] 00 EVERY DAY Medical IN THE [facility] SYNTHROID 0 Yes [id number] TAKE 1 U nivers 150 mcg 1-02 TABLET BY ity of tablet 00:00: MOUTH [place] 00 EVERY DAY Medical IN THE [facility] SYNTHROID 0 Yes [id number] TAKE 1 U nivers 150 mcg 1-02 TABLET BY ity of tablet 00:00: MOUTH [place] 00 EVERY DAY Medical IN THE [facility] SYNTHROID Yes [id number] TAKE 1 U nivers 150 mcg 1-02 TABLET BY ity of tablet 00:00: MOUTH [place] 00 EVERY DAY Medical IN THE [facility] SYNTHROID Yes [id number] TAKE 1 U nivers 150 mcg 1-02 TABLET BY ity of tablet 00:00: MOUTH [place] 00 EVERY DAY Medical IN THE [facility] SYNTHROID Yes [id number] TAKE 1 U nivers 150 mcg 1-02 TABLET BY ity of tablet 00:00: MOUTH [place] 00 EVERY DAY Medical IN THE [facility] SYNTHROID Yes [id number] TAKE 1 U nivers 150 mcg 1-02 TABLET BY ity of tablet 00:00: MOUTH [place] 00 EVERY DAY Medical IN THE [facility] SYNTHROID Yes [id number] TAKE 1 U nivers 150 mcg 1-02 TABLET BY ity of tablet 00:00: MOUTH [place] 00 EVERY DAY Medical IN THE [facility] SYNTHROID Yes [id number] TAKE 1 U nivers 150 mcg 1-02 TABLET BY ity of tablet 00:00: MOUTH [place] 00 EVERY DAY Medical IN THE [facility] SYNTHROID Yes [id number] TAKE 1 U nivers 150 mcg 1-02 TABLET BY ity of tablet 00:00: MOUTH [place] 00 EVERY DAY Medical IN THE [facility] SYNTHROID Yes [id number] TAKE 1 U nivers 150 mcg 1-02 TABLET BY ity of tablet 00:00: MOUTH [place] 00 EVERY DAY Medical IN THE [facility] SYNTHROID Yes [id number] TAKE 1 U nivers 150 mcg 1-02 TABLET BY ity of tablet 00:00: MOUTH [place] 00 EVERY DAY Medical IN THE [facility] SYNTHROID 0 Yes [id number] TAKE 1 U nivers 150 mcg 1-02 TABLET BY ity of tablet 00:00: MOUTH [place] 00 EVERY DAY Medical IN THE [facility] SYNTHROID Yes [id number] TAKE 1 U nivers 150 mcg 1-02 TABLET BY ity of tablet 00:00: MOUTH [place] 00 EVERY DAY Medical IN THE [facility] SYNTHROID Yes [id number] TAKE 1 U nivers 150 mcg 1-02 TABLET BY ity of tablet 00:00: MOUTH [place] 00 EVERY DAY Medical IN THE [facility] SYNTHROID Yes [id number] TAKE 1 U nivers 150 mcg 1-02 TABLET BY ity of tablet 00:00: MOUTH [place] 00 EVERY DAY Medical IN THE [facility] SYNTHROID 0 Yes [id number] TAKE 1 U nivers 150 mcg 1-02 TABLET BY ity of tablet 00:00: MOUTH [place] 00 EVERY DAY Medical IN THE [facility] SYNTHROID 0 Yes [id number] TAKE 1 U nivers 150 mcg 1-02 TABLET BY ity of tablet 00:00: MOUTH [place] 00 EVERY DAY Medical IN THE [facility] SYNTHROID Yes [id number] TAKE 1 U nivers 150 mcg 1-02 TABLET BY ity of tablet 00:00: MOUTH [place] 00 EVERY DAY Medical IN THE [facility] SYNTHROID Yes [id number] TAKE 1 U nivers 150 mcg 1-02 TABLET BY ity of tablet 00:00: MOUTH [place] 00 EVERY DAY Medical IN THE [facility] SYNTHROID Yes [id number] TAKE 1 U nivers 150 mcg 1-02 TABLET BY ity of tablet 00:00: MOUTH [place] 00 EVERY DAY Medical IN THE [facility] SYNTHROID Yes [id number] TAKE 1 U nivers 150 mcg 1-02 TABLET BY ity of tablet 00:00: MOUTH [place] 00 EVERY DAY Medical IN THE [facility] SYNTHROID Yes [id number] TAKE 1 U nivers 150 mcg 1-02 TABLET BY ity of tablet 00:00: MOUTH [place] 00 EVERY DAY Medical IN THE [facility] SYNTHROID 0 Yes [id number] TAKE 1 U nivers 150 mcg 1-02 TABLET BY ity of tablet 00:00: MOUTH [place] 00 EVERY DAY Medical IN THE [facility] SYNTHROID 0 Yes [id number] TAKE 1 U nivers 150 mcg 1-02 TABLET BY ity of tablet 00:00: MOUTH [place] 00 EVERY DAY Medical IN THE [facility] SYNTHROID 0 Yes [id number] TAKE 1 U nivers 150 mcg 1-02 TABLET BY ity of tablet 00:00: MOUTH [place] 00 EVERY DAY Medical IN THE [facility] SYNTHROID 0 Yes [id number] TAKE 1 U nivers 150 mcg 1-02 TABLET BY ity of tablet 00:00: MOUTH [place] 00 EVERY DAY Medical IN THE [facility] SYNTHROID Yes [id number] TAKE 1 U nivers 150 mcg 1-02 TABLET BY ity of tablet 00:00: MOUTH [place] 00 EVERY DAY Medical IN THE [place] SYNTHROID 2022- No [id number] TAKE 1 [facility] 150 mcg 1-02 05-21 TABLET BY ity of tablet 00:00: 00:00 MOUTH [place] 00 :00 EVERY DAY Medical IN THE [place] ZONISAMIDE 2021-03 Yes [id number] TAKE 1 [facility] 100 mg 2-27 CAPSULE BY ity of capsule 00:00: MOUTH [place] 00 TWICE A Medical DAY Branch ZONISAMIDE 2021-03 Yes [id number] TAKE 1 [facility] 100 mg 2-27 CAPSULE BY ity of capsule 00:00: MOUTH [place] 00 TWICE A Medical DAY Branch ZONISAMIDE 2021-03 Yes [id number] TAKE 1 [facility] 100 mg 2-27 CAPSULE BY ity of capsule 00:00: MOUTH [place] 00 TWICE A Medical DAY Branch ZONISAMIDE 2021-03 Yes [id number] TAKE 1 [facility] 100 mg 2-27 CAPSULE BY ity of capsule 00:00: MOUTH [place] 00 TWICE A Medical DAY Branch ZONISAMIDE 2021-03 Yes [id number] TAKE 1 [facility] 100 mg 2-27 CAPSULE BY ity of capsule 00:00: MOUTH [place] 00 TWICE A Medical DAY Branch ZONISAMIDE 2021-03 Yes [id number] TAKE 1 [facility] 100 mg 2-27 CAPSULE BY ity of capsule 00:00: MOUTH [place] 00 TWICE A Medical DAY Branch ZONISAMIDE 2021-03 Yes [id number] TAKE 1 [facility] 100 mg 2-27 CAPSULE BY ity of capsule 00:00: MOUTH [place] 00 TWICE A Medical DAY Branch ZONISAMIDE 2021-03 Yes [id number] TAKE 1 [facility] 100 mg 2-27 CAPSULE BY ity of capsule 00:00: MOUTH [place] 00 TWICE A Medical DAY Branch ZONISAMIDE 2021-03 Yes [id number] TAKE 1 [facility] 100 mg 2-27 CAPSULE BY ity of capsule 00:00: MOUTH [place] 00 TWICE A Medical DAY Branch ZONISAMIDE 2021-03 Yes [id number] TAKE 1 [facility] 100 mg 2-27 CAPSULE BY ity of capsule 00:00: MOUTH [place] 00 TWICE A Medical DAY Branch ZONISAMIDE 2021-03 Yes [id number] TAKE 1 [facility] 100 mg 2-27 CAPSULE BY ity of capsule 00:00: MOUTH [place] 00 TWICE A Medical DAY Branch ZONISAMIDE 2021-03 Yes [id number] TAKE 1 [facility] 100 mg 2-27 CAPSULE BY ity of capsule 00:00: MOUTH [place] TWICE A Medical DAY Branch ZONISAMIDE 2021-03 Yes [id number] TAKE 1 [facility] 100 mg 2-27 CAPSULE BY ity of capsule 00:00: MOUTH [place] TWICE A Medical DAY Branch ZONISAMIDE 2021-03 Yes [id number] TAKE 1 [facility] 100 mg 2-27 CAPSULE BY ity of capsule 00:00: MOUTH [place] TWICE A Medical DAY Branch ZONISAMIDE 2021-03 Yes [id number] TAKE 1 [facility] 100 mg 2-27 CAPSULE BY ity of capsule 00:00: MOUTH [place] TWICE A Medical DAY Branch ZONISAMIDE 2021-03 Yes [id number] TAKE 1 [facility] 100 mg 2-27 CAPSULE BY ity of capsule 00:00: MOUTH TWICE A Medical DAY Branch ZONISAMIDE 2021-03 Yes [id number] TAKE 1 [facility] 100 mg 2-27 CAPSULE BY ity of capsule 00:00: MOUTH [place] TWICE A Medical DAY Branch ZONISAMIDE 2021-03 Yes [id number] TAKE 1 [facility] 100 mg 2-27 CAPSULE BY ity of capsule 00:00: MOUTH [place] TWICE A Medical DAY Branch ZONISAMIDE 2021-03 Yes [id number] TAKE 1 [facility] 100 mg 2-27 CAPSULE BY ity of capsule 00:00: MOUTH [place] TWICE A Medical DAY Branch ZONISAMIDE 2021-03 Yes [id number] TAKE 1 [facility] 100 mg 2-27 CAPSULE BY ity of capsule 00:00: MOUTH [place] TWICE A Medical DAY Branch ZONISAMIDE 2021-03 Yes [id number] TAKE 1 [facility] 100 mg 2-27 CAPSULE BY ity of capsule 00:00: MOUTH [place] TWICE A Medical DAY Branch ZONISAMIDE 2021-03 Yes [id number] TAKE 1 [facility] 100 mg 2-27 CAPSULE BY ity of capsule 00:00: MOUTH [place] 00 TWICE A Medical DAY Branch ZONISAMIDE 2021-03 Yes [id number] TAKE 1 [facility] 100 mg 2-27 CAPSULE BY ity of capsule 00:00: MOUTH [place] TWICE A Medical DAY Branch ZONISAMIDE 2021-03 Yes [id number] TAKE 1 [facility] 100 mg 2-27 CAPSULE BY ity of capsule 00:00: MOUTH [place] 00 TWICE A Medical DAY Branch ZONISAMIDE 2021-03 Yes [id number] TAKE 1 [facility] 100 mg 2-27 CAPSULE BY ity of capsule 00:00: MOUTH [place] 00 TWICE A Medical DAY Branch ZONISAMIDE 2021-03 Yes [id number] TAKE 1 [facility] 100 mg 2-27 CAPSULE BY ity of capsule 00:00: MOUTH [place] 00 TWICE A Medical DAY Branch ZONISAMIDE 2021-03 Yes [id number] TAKE 1 [facility] 100 mg 2-27 CAPSULE BY ity of capsule 00:00: MOUTH [place] 00 TWICE A Medical DAY Branch ZONISAMIDE 2021-03 Yes [id number] TAKE 1 [facility] 100 mg 2-27 CAPSULE BY ity of capsule 00:00: MOUTH [place] 00 TWICE A Medical DAY Branch ZONISAMIDE 2021-03 Yes [id number] TAKE 1 [facility] 100 mg 2-27 CAPSULE BY ity of capsule 00:00: MOUTH [place] 00 TWICE A Medical DAY Branch ZONISAMIDE 2021-03 Yes [id number] TAKE 1 [facility] 100 mg 2-27 CAPSULE BY ity of capsule 00:00: MOUTH [place] 00 TWICE A Medical DAY Branch ZONISAMIDE 2021-03 Yes [id number] TAKE 1 [facility] 100 mg 2-27 CAPSULE BY ity of capsule 00:00: MOUTH [place] 00 TWICE A Medical DAY Branch ZONISAMIDE 2021-03 Yes [id number] TAKE 1 [facility] 100 mg 2-27 CAPSULE BY ity of capsule 00:00: MOUTH [place] 00 TWICE A Medical DAY Branch ZONISAMIDE 2021-03 Yes [id number] TAKE 1 [facility] 100 mg 2-27 CAPSULE BY ity of capsule 00:00: MOUTH [place] 00 TWICE A Medical DAY Branch ZONISAMIDE 2021-03 Yes [id number] TAKE 1 [facility] 100 mg 2-27 CAPSULE BY ity of capsule 00:00: MOUTH [place] 00 TWICE A Medical DAY Branch ZONISAMIDE 2021-03- No [id number] TAKE 1 [facility] 100 mg 2-27 03-27 CAPSULE BY ity of capsule 00:00: 00:00 MOUTH [place] 00 :00 TWICE A Medical DAY Branch dextroamphe 2021-03 Yes [id number] 15mg Take 1 [facility] tamine-amph 2-20 tablet by ity of etamine 00:00: mouth in [place] ([facility]) 00 the Medical 15 mg morning Branch tablet and 1 tablet at noon and 1 tablet in the evening. dextroamphe 2021-03 Yes [id number] 20mg Take 1 [facility] tamine-amph 2-20 tablet by ity of etamine 00:00: mouth in [place] ([facility]) 00 the Medical 20 mg morning Branch tablet and 1 tablet at noon and 1 tablet in the evening. dextroamphe 2021-03 Yes [id number] 20mg Take 1 [facility] tamine-amph 2-20 tablet by ity of etamine 00:00: mouth in [place] ([facility]) 00 the Medical 20 mg morning Branch tablet and 1 tablet at noon and 1 tablet in the evening. dextroamphe 2021-03 Yes [id number] 15mg Take 1 [facility] tamine-amph 2-20 tablet by ity of etamine 00:00: [facility] [place] [facility] the Medical 15 mg morning Branch tablet and 1 tablet at noon and 1 tablet in the evening. dextroamphe 2021-03 Yes [id number] 20mg Take 1 [facility] tamine-amph 2-20 tablet by ity of etamine 00:00: mouth in [place] ([facility]) 00 the Medical 20 mg morning Branch tablet and 1 tablet at noon and 1 tablet in the evening. dextroamphe 2021-03 Yes [id number] 15mg Take 1 [facility] tamine-amph 2-20 tablet by ity of etamine 00:00: mouth in [place] ([facility]) 00 the Medical 15 mg morning Branch tablet and 1 tablet at noon and 1 tablet in the evening. dextroamphe 2021-03 Yes [id number] 20mg Take 1 [facility] tamine-amph 2-20 tablet by ity of etamine 00:00: mouth in [place] ([facility]) 00 the Medical 20 mg morning Branch tablet and 1 tablet at noon and 1 tablet in the evening. dextroamphe 2021-03 Yes [id number] 15mg Take 1 [facility] tamine-amph 2-20 tablet by ity of etamine 00:00: mouth in [place] ([facility]) 00 the Medical 15 mg morning Branch tablet and 1 tablet at noon and 1 tablet in the evening. dextroamphe 2021-03 Yes [id number] 20mg Take 1 [facility] tamine-amph 2-20 tablet by ity of etamine 00:00: mouth in [place] ([facility]) 00 the Medical 20 mg morning Branch tablet and 1 tablet at noon and 1 tablet in the evening. dextroamphe 2021-03 Yes [id number] 15mg Take 1 [facility] tamine-amph 2-20 tablet by ity of etamine 00:00: mouth in [place] ([facility]) 00 the Medical 15 mg morning Branch tablet and 1 tablet at noon and 1 tablet in the evening. dextroamphe 2021-03 Yes [id number] 20mg Take 1 [facility] tamine-amph 2-20 tablet by ity of etamine 00:00: mouth in [place] ([facility]) 00 the Medical 20 mg morning Branch tablet and 1 tablet at noon and 1 tablet in the evening. dextroamphe 2021-03 Yes [id number] 20mg Take 1 [facility] tamine-amph 2-20 tablet by ity of etamine 00:00: mouth in [place] ([facility]) 00 the Medical 20 mg morning Branch tablet and 1 tablet at noon and 1 tablet in the evening. dextroamphe 2021-03 Yes [id number] 20mg Take 1 [facility] tamine-amph 2-20 tablet by ity of etamine 00:00: mouth in [place] ([facility]) 00 the Medical 20 mg morning Branch tablet and 1 tablet at noon and 1 tablet in the evening. dextroamphe 2021-03- No [id number] 20mg Take 1 [facility] tamine-amph 2-20 - tablet by it y of etamine 00:00: 00:00 mouth in [place] ([facility]) 00 :00 the Medical 20 mg morning Branch tablet and 1 tablet at noon and 1 tablet in the evening. dextroamphe 2021-03- No [id number] 15mg Take 1 [facility] tamine-amph 2-20 - [...] 00 :00 dose, On Medical Tue Branch 03/10/22 at 2130, [facility] HYDROcodone 2022-1 2022- No 1{tbl} 1 tablet, Univers -acetaminop 2-14 12-14 Oral, ity of hen (NORCO 01:15: 01:14 ONCE, 1 [place] as 5) 5-325 mg 00 :00 dose, On Medi gustavo tablet 1 Tue Branch tablet 03/10/22 at 1915, [facility] SERTRALINE 2021-03 Yes [id number] TAKE 1 [facility] 100 mg 2-13 TABLET BY ity of tablet 00:00: MOUTH [place] EVERY DAY Medical Branch SERTRALINE 2021-03 Yes [id number] TAKE 1 [facility] 100 mg 2-13 TABLET BY ity of tablet 00:00: MOUTH [place] EVERY DAY Medical Branch SERTRALINE 2021-03 Yes [id number] TAKE 1 [facility] 100 mg 2-13 TABLET BY ity of tablet 00:00: MOUTH [place] DAY Medical Branch SERTRALINE 2021-03 Yes [id number] TAKE 1 [facility] 100 mg 2-13 TABLET BY ity of tablet 00:00: MOUTH [place] DAY Medical Branch SERTRALINE 2021-03 Yes [id number] TAKE 1 [facility] 100 mg 2-13 TABLET BY ity of tablet 00:00: MOUTH [place] 00 EVERY DAY Medical Branch SERTRALINE 2021-03 Yes [id number] TAKE 1 [facility] 100 mg 2-13 TABLET BY ity of tablet 00:00: MOUTH [place] DAY Medical Branch SERTRALINE 2021-03 Yes [id number] TAKE 1 [facility] 100 mg 2-13 TABLET BY ity of tablet 00:00: MOUTH [place] EVERY DAY Medical Branch SERTRALINE 2021-03 Yes [id number] TAKE 1 [facility] 100 mg 2-13 TABLET BY ity of tablet 00:00: MOUTH [place] 00 EVERY DAY Medical Branch SERTRALINE 2021-03 Yes [id number] TAKE 1 [facility] 100 mg 2-13 TABLET BY ity of tablet 00:00: MOUTH [place] EVERY DAY Medical Branch SERTRALINE 2021-03 Yes [id number] TAKE 1 [facility] 100 mg 2-13 TABLET BY ity of tablet 00:00: MOUTH [place] EVERY DAY Medical Branch SERTRALINE 2021-03 Yes [id number] TAKE 1 [facility] 100 mg 2-13 TABLET BY ity of tablet 00:00: MOUTH [place] EVERY DAY Medical Branch SERTRALINE 2021-03 Yes [id number] TAKE 1 [facility] 100 mg 2-13 TABLET BY ity of tablet 00:00: MOUTH [place] 00 EVERY DAY Medical Branch SERTRALINE 2021-03 Yes [id number] TAKE 1 [facility] 100 mg 2-13 TABLET BY ity of tablet 00:00: MOUTH [place] 00 EVERY DAY Medical Branch SERTRALINE 2021-03 Yes [id number] TAKE 1 [facility] 100 mg 2-13 TABLET BY ity of tablet 00:00: MOUTH 00 EVERY DAY Medical Branch SERTRALINE 2021-03 Yes [id number] TAKE 1 [facility] 100 mg 2-13 TABLET BY ity of tablet 00:00: MOUTH [place] 00 EVERY DAY Medical Branch SERTRALINE 2021-03 Yes [id number] TAKE 1 [facility] 100 mg 2-13 TABLET BY ity of tablet 00:00: MOUTH 00 EVERY DAY Medical Branch SERTRALINE 2021-03 Yes [id number] TAKE 1 [facility] 100 mg 2-13 TABLET BY ity of tablet 00:00: MOUTH 00 EVERY DAY Medical Branch SERTRALINE 2021-03 Yes [id number] TAKE 1 [facility] 100 mg 2-13 TABLET BY ity of tablet 00:00: MOUTH 00 EVERY DAY Medical Branch SERTRALINE 2021-03 Yes [id number] TAKE 1 [facility] 100 mg 2-13 TABLET BY ity of tablet 00:00: MOUTH 00 EVERY DAY Medical Branch SERTRALINE 2021-03 Yes [id number] TAKE 1 [facility] 100 mg 2-13 TABLET BY ity of tablet 00:00: MOUTH 00 EVERY DAY Medical Branch SERTRALINE 2021-03 Yes [id number] TAKE 1 [facility] 100 mg 2-13 TABLET BY ity of tablet 00:00: MOUTH 00 EVERY DAY Medical Branch SERTRALINE 2021-03 Yes [id number] TAKE 1 [facility] 100 mg 2-13 TABLET BY ity of tablet 00:00: MOUTH 00 EVERY DAY Medical Branch SERTRALINE 2021-03 Yes [id number] TAKE 1 [facility] 100 mg 2-13 TABLET BY ity of tablet 00:00: MOUTH 00 EVERY DAY Medical Branch SERTRALINE 2021-03 Yes [id number] TAKE 1 [facility] 100 mg 2-13 TABLET BY ity of tablet 00:00: MOUTH 00 EVERY DAY Medical Branch SERTRALINE 2021-03 Yes [id number] TAKE 1 [facility] 100 mg 2-13 TABLET BY ity of tablet 00:00: MOUTH [place] 00 EVERY DAY Medical Branch SERTRALINE 2021-03 Yes [id number] TAKE 1 [facility] 100 mg 2-13 TABLET BY ity of tablet 00:00: MOUTH EVERY DAY Medical Branch SERTRALINE 2021-03 Yes [id number] TAKE 1 [facility] 100 mg 2-13 TABLET BY ity of tablet 00:00: MOUTH [place] EVERY DAY Medical Branch SERTRALINE 2021-03 Yes [id number] TAKE 1 [facility] 100 mg 2-13 TABLET BY ity of tablet 00:00: MOUTH [place] EVERY DAY Medical Branch SERTRALINE 2021-03 Yes [id number] TAKE 1 [facility] 100 mg 2-13 TABLET BY ity of tablet 00:00: MOUTH EVERY DAY Medical Branch SERTRALINE 2021-03 Yes [id number] TAKE 1 [facility] 100 mg 2-13 TABLET BY ity of tablet 00:00: MOUTH [place] EVERY DAY Medical Branch SERTRALINE 2021-03 Yes [id number] TAKE 1 [facility] 100 mg 2-13 TABLET BY ity of tablet 00:00: MOUTH [place] EVERY DAY Medical Branch SERTRALINE 2021-03 Yes [id number] TAKE 1 [facility] 100 mg 2-13 TABLET BY ity of tablet 00:00: MOUTH [place] EVERY DAY Medical Branch SERTRALINE 2021-03 Yes [id number] TAKE 1 [facility] 100 mg 2-13 TABLET BY ity of tablet 00:00: MOUTH [place] EVERY DAY Medical Branch SERTRALINE 2021-03 Yes [id number] TAKE 1 [facility] 100 mg 2-13 TABLET BY ity of tablet 00:00: MOUTH [place] EVERY DAY Medical Branch SERTRALINE 2021-03 Yes [id number] TAKE 1 [facility] 100 mg 2-13 TABLET BY ity of tablet 00:00: MOUTH [place] EVERY DAY Medical Branch SERTRALINE 2021-03 Yes [id number] TAKE 1 [facility] 100 mg 2-13 TABLET BY ity of tablet 00:00: MOUTH [place] EVERY DAY Medical Branch SERTRALINE 2021-03 Yes [id number] TAKE 1 [facility] 100 mg 2-13 TABLET BY ity of tablet 00:00: MOUTH [place] EVERY DAY Medical Branch SERTRALINE 2021-03 Yes [id number] TAKE 1 [facility] 100 mg 2-13 TABLET BY ity of tablet 00:00: MOUTH [place] EVERY DAY Medical Branch SERTRALINE 2021-03 Yes [id number] TAKE 1 [facility] 100 mg 2-13 TABLET BY ity of tablet 00:00: MOUTH [place] 00 EVERY DAY Medical Branch SERTRALINE 2021-03 Yes [id number] TAKE 1 [facility] 100 mg 2-13 TABLET BY ity of tablet 00:00: MOUTH [place] 00 EVERY DAY Medical Branch SERTRALINE 2021-03 Yes [id number] TAKE 1 [facility] 100 mg 2-13 TABLET BY ity of tablet 00:00: MOUTH 00 EVERY DAY Medical Branch SERTRALINE 2021-03 Yes [id number] TAKE 1 [facility] 100 mg 2-13 TABLET BY ity of tablet 00:00: MOUTH [place] 00 EVERY DAY Medical Branch SERTRALINE 2021-03 Yes [id number] TAKE 1 [facility] 100 mg 2-13 TABLET BY ity of tablet 00:00: MOUTH 00 EVERY DAY Medical Branch SERTRALINE 2021-03 Yes [id number] TAKE 1 [facility] 100 mg 2-13 TABLET BY ity of tablet 00:00: MOUTH 00 EVERY DAY Medical Branch SERTRALINE 2021-03 Yes [id number] TAKE 1 [facility] 100 mg 2-13 TABLET BY ity of tablet 00:00: MOUTH 00 EVERY DAY Medical Branch SERTRALINE 2021-03 Yes [id number] TAKE 1 [facility] 100 mg 2-13 TABLET BY ity of tablet 00:00: MOUTH [place] 00 EVERY DAY Medical Branch SERTRALINE 2021-03 Yes [id number] TAKE 1 [facility] 100 mg 2-13 TABLET BY ity of tablet 00:00: MOUTH [place] 00 EVERY DAY Medical Branch SERTRALINE 2021-03 Yes [id number] TAKE 1 [facility] 100 mg 2-13 TABLET BY ity of tablet 00:00: MOUTH 00 EVERY DAY Medical Branch SERTRALINE 2021-03 Yes [id number] TAKE 1 [facility] 100 mg 2-13 TABLET BY ity of tablet 00:00: MOUTH [place] 00 EVERY DAY Medical Branch SERTRALINE 2021-03 Yes [id number] TAKE 1 [facility] 100 mg 2-13 TABLET BY ity of tablet 00:00: MOUTH [place] 00 EVERY DAY Medical Branch SERTRALINE 2021-03 Yes [id number] TAKE 1 [facility] 100 mg 2-13 TABLET BY ity of tablet 00:00: MOUTH [place] 00 EVERY DAY Medical Branch SERTRALINE 2021-03 Yes [id number] TAKE 1 [facility] 100 mg 2-13 TABLET BY ity of tablet 00:00: MOUTH [place] 00 EVERY DAY Medical Branch SERTRALINE 2021- Yes [id number] TAKE 1 [facility] 100 mg 2-13 TABLET BY ity of tablet 00:00: MOUTH [place] EVERY DAY Medical Branch SERTRALINE 2021- Yes [id number] TAKE 1 [facility] 100 mg 2-13 TABLET BY ity of tablet 00:00: MOUTH [place] EVERY DAY Medical Branch SERTRALINE 2021-03 Yes [id number] TAKE 1 [facility] 100 mg 2-13 TABLET BY ity of tablet 00:00: MOUTH [place] EVERY DAY Medical Branch SERTRALINE 2021- Yes [id number] TAKE 1 [facility] 100 mg 2-13 TABLET BY ity of tablet 00:00: MOUTH [place] EVERY DAY Medical Branch SERTRALINE 2021-03 Yes [id number] TAKE 1 [facility] 100 mg 2-13 TABLET BY ity of tablet 00:00: MOUTH [place] DAY Medical Branch SERTRALINE 2021-033- No [id number] TAKE 1 [facility] 100 mg 2-13 05-01 TABLET BY ity of tablet 00:00: 00:00 MOUTH [place] 00 :00 EVERY DAY Medical Branch cephALEXin 2021- Yes [id number] 500mg Take 1 [facility] 500 mg 1-28 capsule by [facility] of capsule 00:00: mouth in [place] 00 the Medical morning Branch and 1 capsule in the evening. cephALEXin 2021- Yes [id number] 500mg Take 1 [facility] 500 mg 1-28 capsule by [facility] of capsule 00:00: mouth in [place] 00 the Medical morning Branch and 1 capsule in the evening. cephALEXin 2021- Yes [id number] 500mg Take 1 [facility] 500 mg 1-28 capsule by [facility] of capsule 00:00: mouth in [place] 00 the Medical morning Branch and 1 capsule in the evening. cephALEXin 2021-03 Yes [id number] 500mg Take 1 [facility] 500 mg 1-28 capsule by [facility] of capsule 00:00: mouth in [place] 00 the Medical morning Branch and 1 capsule in the evening. cephALEXin 2021- Yes [id number] 500mg Take 1 [facility] 500 mg 1-28 capsule by it[facility] of capsule 00:00: mouth in [place] [address] the Medical morning Branch and 1 capsule in the evening. cephALEXin 2021- Yes [id number] 500mg Take 1 [facility] 500 mg 1-28 capsule by [facility] of capsule 00:00: mouth in [place] [address] the Medical morning Branch and 1 capsule in the evening. cephALEXin 2022-1 Yes [id number] 500mg Take 1 [facility] 500 mg 1-28 capsule by it[facility] of capsule 00:00: mouth in [place] [address] the Medical morning Branch and 1 capsule in the evening. cephALEXin 2022-1 Yes [id number] 500mg Take 1 [facility] 500 mg 1-28 capsule by it[facility] of capsule 00:00: mouth in [place] [address] the Medical morning Branch and 1 capsule in the evening. cephALEXin 2022-1 Yes [id number] 500mg Take 1 [facility] 500 mg 1-28 capsule by it[facility] of capsule 00:00: mouth in [place] [address] the Medical morning Branch and 1 capsule in the evening. cephALEXin 2022-1 Yes [id number] 500mg Take 1 [facility] 500 mg 1-28 capsule by it[facility] of capsule 00:00: mouth in [place] [address] the Medical morning Branch and 1 capsule in the evening. cephALEXin 2022-1 Yes [id number] 500mg Take 1 [facility] 500 mg 1-28 capsule by it[facility] of capsule 00:00: mouth in [place] [address] the Medical morning Branch and 1 capsule in the evening. cephALEXin 2021-1 Yes [id number] 500mg Take 1 [facility] 500 mg 1-28 capsule by ity of capsule 00:00: mouth in [place] [address] the Medical morning Branch and 1 capsule in the evening. cephALEXin 2022-1 Yes [id number] 500mg Take 1 [facility] 500 mg 1-28 capsule by ity of capsule 00:00: mouth in [place] [address] the [facility] morning Branch and 1 capsule in the evening. cephALEXin 2022-1 Yes [id number] 500mg Take 1 [facility] 500 mg 1-28 capsule by ity of capsule 00:00: mouth in [place] [address] the Medical morning Branch and 1 capsule in the evening. cephALEXin 2022-1 Yes [id number] 500mg Take 1 [facility] 500 mg 1-28 capsule by ity of capsule 00:00: mouth in [place] [address] the Medical morning Branch and 1 capsule in the evening. cephALEXin 2022-1 Yes [id number] 500mg Take 1 [facility] 500 mg 1-28 capsule by ity of capsule 00:00: mouth in [place] [address] the [facility] morning Branch and 1 capsule in the evening. cephALEXin 2022-1 Yes [id number] 500mg Take 1 [facility] 500 mg 1-28 capsule by ity of capsule 00:00: mouth in [place] [address] the Medical morning Branch and 1 capsule in the evening. cephALEXin 2022-1 Yes [id number] 500mg Take 1 [facility] 500 mg 1-28 capsule by ity of capsule 00:00: mouth in [place] 00 the Medical morning Branch and 1 capsule in the evening. cephALEXin 2021-03 Yes [id number] 500mg Take 1 [facility] 500 mg 1-28 capsule by ity of capsule 00:00: mouth in [place] 00 the Medical morning Branch and 1 capsule in the evening. cephALEXin 2021-03 Yes [id number] 500mg Take 1 [facility] 500 mg 1-28 capsule by ity of capsule 00:00: mouth in [place] 00 the Medical morning Branch and 1 capsule in the evening. cephALEXin 2021-03 Yes [id number] 500mg Take 1 [facility] 500 mg 1-28 capsule by ity of capsule 00:00: mouth in [place] 00 the Medical morning Branch and 1 capsule in the evening. cephALEXin 2021-03 Yes [id number] 500mg Take 1 [facility] 500 mg 1-28 capsule by ity of capsule 00:00: mouth in [place] 00 the Medical morning Branch and 1 capsule in the evening. cephALEXin 2021-03 Yes [id number] 500mg Take 1 [facility] 500 mg 1-28 capsule by ity of capsule 00:00: mouth in [place] 00 the Medical morning Branch and 1 capsule in the evening. cephALEXin 2021-03 Yes [id number] 500mg Take 1 [facility] 500 mg 1-28 capsule by ity of capsule 00:00: mouth in [place] 00 the Medical morning Branch and 1 capsule in the evening. dextroamphe 2021-03 Yes [id number] 20mg Take 1 [facility] tamine-amph 1-28 tablet by ity of etamine 00:00: mouth in [place] ([facility]) 00 the Medical 20 mg morning Branch tablet and 1 tablet at noon and 1 tablet in the evening. clonazePAM 2021-03 Yes [id number] 1mg Take 1 [facility] 1 mg tablet 1-28 tablet by ity of 00:00: mouth in [place] 00 the Medical morning Branch and 1 tablet at noon and 1 tablet in the evening. cephALEXin 2021-03 Yes [id number] 500mg Take 1 [facility] 500 mg 1-28 capsule by ity of capsule 00:00: mouth in [place] 00 the Medical morning Branch and 1 capsule in the evening. dextroamphe 2021- Yes [id number] 20mg Take 1 [facility] tamine-amph 1-28 tablet by ity of etamine 00:00: mouth in [place] ([facility]) 00 the Medical 20 mg morning Branch tablet and 1 tablet at noon and 1 tablet in the evening. clonazePAM 2021- Yes [id number] 1mg Take 1 [facility] 1 mg tablet 1-28 tablet by ity of 00:00: mouth in [place] 00 the Medical morning Branch and 1 tablet at noon and 1 tablet in the evening. cephALEXin 2021- Yes [id number] 500mg Take 1 [facility] 500 mg 1-28 capsule by ity of capsule 00:00: mouth in [place] 00 the Medical morning Branch and 1 capsule in the evening. dextroamphe 2021- Yes [id number] 20mg Take 1 [facility] tamine-amph 1-28 tablet by ity of etamine 00:00: mouth in [place] ([facility]) 00 the Medical 20 mg morning Branch tablet and 1 tablet at noon and 1 tablet in the evening. clonazePAM 2021- Yes [id number] 1mg Take 1 [facility] 1 mg tablet 1-28 tablet by ity of 00:00: mouth in [place] 00 the Medical morning Branch and 1 tablet at noon and 1 tablet in the evening. cephALEXin 2021-03 Yes [id number] 500mg Take 1 [facility] 500 mg 1-28 capsule by ity of capsule 00:00: mouth in [place] 00 the Medical morning Branch and 1 capsule in the evening. dextroamphe 2021- Yes [id number] 20mg Take 1 [facility] tamine-amph 1-28 tablet by ity of etamine 00:00: mouth in [place] [facility] the Medical 20 mg morning Branch tablet and 1 tablet at noon and 1 tablet in the evening. clonazePAM 2021- Yes [id number] 1mg Take 1 [facility] 1 mg tablet 1-28 tablet by ity of 00:00: mouth in [place] 00 the Medical morning Branch and 1 tablet at noon and 1 tablet in the evening. cephALEXin 2021-1 Yes [id number] 500mg Take 1 [facility] 500 mg 1-28 capsule by ity of capsule 00:00: mouth in [place] 00 the Medical morning Branch and 1 capsule in the evening. dextroamphe 2021-1 Yes [id number] 20mg Take 1 [facility] tamine-amph 1-28 tablet by ity of etamine 00:00: mouth in [place] ([facility]) 00 the Medical 20 mg morning Branch tablet and 1 tablet at noon and 1 tablet in the evening. clonazePAM 2021- Yes [id number] 1mg Take 1 [facility] 1 mg tablet 1-28 tablet by ity of 00:00: mouth in [place] 00 the Medical morning Branch and 1 tablet at noon and 1 tablet in the evening. cephALEXin 2021- Yes [id number] 500mg Take 1 [facility] 500 mg 1-28 capsule by ity of capsule 00:00: mouth in [place] 00 the Medical morning Branch and 1 capsule in the evening. dextroamphe 2021- Yes [id number] 20mg Take 1 [facility] tamine-amph 1-28 tablet by ity of etamine 00:00: mouth in [place] ([facility]) 00 the Medical 20 mg morning Branch tablet and 1 tablet at noon and 1 tablet in the evening. clonazePAM 2021- Yes [id number] 1mg Take 1 [facility] 1 mg tablet 1-28 tablet by ity of 00:00: mouth in [place] 00 the Medical morning Branch and 1 tablet at noon and 1 tablet in the evening. cephALEXin 2021- Yes [id number] 500mg Take 1 [facility] 500 mg 1-28 capsule by ity of capsule 00:00: mouth in [place] 00 the Medical morning Branch and 1 capsule in the evening. clonazePAM 2021- Yes [id number] 1mg Take 1 [facility] 1 mg tablet 1-28 tablet by ity of 00:00: mouth in [place] 00 the Medical morning Branch and 1 tablet at noon and 1 tablet in the evening. cephALEXin 2021-1 Yes [id number] 500mg Take 1 [facility] 500 mg 1-28 capsule by ity of capsule 00:00: mouth in [place] 00 the Medical morning Branch and 1 capsule in the evening. clonazePAM 2021-1 Yes [id number] 1mg Take 1 [facility] 1 mg tablet 1-28 tablet by ity of 00:00: mouth in [place] 00 the Medical morning Branch and 1 tablet at noon and 1 tablet in the evening. cephALEXin 2021-1 Yes [id number] 500mg Take 1 [facility] 500 mg 1-28 capsule by ity of capsule 00:00: mouth in [place] 00 the Medical morning Branch and 1 capsule in the evening. clonazePAM 2022-1 Yes [id number] 1mg Take 1 [facility] 1 mg tablet 1-28 tablet by ity of 00:00: mouth in [address] Medical morning [place] and 1 tablet at noon and 1 tablet in the evening. cephALEXin 2022-1 Yes [id number] 500mg Take 1 [facility] 500 mg 1-28 capsule by ity of capsule 00:00: mouth in [address] morning [place] and 1 capsule in the evening. clonazePAM 2022-1 Yes [id number] 1mg Take 1 [facility] 1 mg tablet 1-28 tablet by ity of 00:00: mouth in [address] morning [place] and 1 tablet at noon and 1 tablet in the evening. cephALEXin 2021-1 Yes [id number] 500mg Take 1 [facility] 500 mg 1-28 capsule by ity of capsule 00:00: mouth in [address] morning [place] and 1 capsule in the evening. clonazePAM 2-1 Yes [id number] 1mg Take 1 [facility] 1 mg tablet 1-28 tablet by ity of 00:00: mouth in [address] morning [place] and 1 tablet at noon and 1 tablet in the evening. cephALEXin 2021-1 Yes [id number] 500mg Take 1 [facility] 500 mg 1-28 capsule by ity of capsule 00:00: mouth in [address] and 1 capsule in the evening. clonazePAM 2-1 Yes [id number] 1mg Take 1 [facility] 1 mg tablet 1-28 tablet by ity of 00:00: mouth in [address] and 1 tablet at noon and 1 tablet in the evening. cephALEXin 2-1 Yes [id number] 500mg Take 1 [facility] 500 mg 1-28 capsule by ity of capsule 00:00: mouth in [address] morning [place] and 1 capsule in the evening. clonazePAM 2022-1 Yes [id number] 1mg Take 1 [facility] 1 mg tablet 1-28 tablet by ity of 00:00: mouth in [address] morning [place] and 1 tablet at noon and 1 tablet in the evening. cephALEXin 2022-1 Yes [id number] 500mg Take 1 [facility] 500 mg 1-28 capsule by ity of capsule 00:00: mouth in [address] and 1 capsule in the evening. clonazePAM 2022-1 Yes [id number] 1mg Take 1 [facility] 1 mg tablet 1-28 tablet by ity of 00:00: mouth in [place] 00 the Medical morning Branch and 1 tablet at noon and 1 tablet in the evening. cephALEXin 2022-1 Yes [id number] 500mg Take 1 [facility] 500 mg 1-28 capsule by ity of capsule 00:00: mouth in [place] [address] the [facility] morning Bow and 1 capsule in the evening. clonazePAM 2022-1 Yes [id number] 1mg Take 1 [facility] 1 mg tablet 1-28 tablet by ity of 00:00: mouth in [place] [address] the [facility] morning [place] and 1 tablet at noon and 1 tablet in the evening. cephALEXin 2021-1 Yes [id number] 500mg Take 1 [facility] 500 mg 1-28 capsule by ity of capsule 00:00: mouth in [address] morning [place] and 1 capsule in the evening. clonazePAM 2022-1 Yes [id number] 1mg Take 1 [facility] 1 mg tablet 1-28 tablet by ity of 00:00: mouth in [address] morning [place] and 1 tablet at noon and 1 tablet in the evening. cephALEXin 2021-1 Yes [id number] 500mg Take 1 [facility] 500 mg 1-28 capsule by ity of capsule 00:00: mouth in [address] morning [place] and 1 capsule in the evening. clonazePAM 2-1 Yes [id number] 1mg Take 1 [facility] 1 mg tablet 1-28 tablet by ity of 00:00: mouth in [address] morning [place] and 1 tablet at noon and 1 tablet in the evening. cephALEXin 2021-1 Yes [id number] 500mg Take 1 [facility] 500 mg 1-28 capsule by ity of capsule 00:00: mouth in [address] and 1 capsule in the evening. clonazePAM 2022-1 Yes [id number] 1mg Take 1 [facility] 1 mg tablet 1-28 tablet by ity of 00:00: mouth in [address] morning [place] and 1 tablet at noon and 1 tablet in the evening. cephALEXin 2022-1 Yes [id number] 500mg Take 1 [facility] 500 mg 1-28 capsule by ity of capsule 00:00: mouth in [address] morning [place] and 1 capsule in the evening. clonazePAM 2022-1 Yes [id number] 1mg Take 1 [facility] 1 mg tablet 1-28 tablet by ity of 00:00: mouth in [address] morning [place] and 1 tablet at noon and 1 tablet in the evening. cephALEXin 2022-1 Yes [id number] 500mg Take 1 [facility] 500 mg 1-28 capsule by ity of capsule 00:00: mouth in [address] Medical morning [place] and 1 capsule in the evening. clonazePAM 2022-1 Yes [id number] 1mg Take 1 [facility] 1 mg tablet 1-28 tablet by ity of 00:00: mouth in [address] Medical morning [place] and 1 tablet at noon and 1 tablet in the evening. cephALEXin 2022-1 Yes [id number] 500mg Take 1 [facility] 500 mg 1-28 capsule by ity of capsule 00:00: mouth in [address] morning [place] and 1 capsule in the evening. clonazePAM 2022-1 Yes [id number] 1mg Take 1 [facility] 1 mg tablet 1-28 tablet by ity of 00:00: mouth in [address] morning [place] and 1 tablet at noon and 1 tablet in the evening. cephALEXin 2021-1 Yes [id number] 500mg Take 1 [facility] 500 mg 1-28 capsule by ity of capsule 00:00: mouth in [address] and 1 capsule in the evening. clonazePAM 2-1 Yes [id number] 1mg Take 1 [facility] 1 mg tablet 1-28 tablet by ity of 00:00: mouth in [address] morning [place] and 1 tablet at noon and 1 tablet in the evening. cephALEXin 2021-1 Yes [id number] 500mg Take 1 [facility] 500 mg 1-28 capsule by ity of capsule 00:00: mouth in [address] morning [place] and 1 capsule in the evening. clonazePAM 2022-1 Yes [id number] 1mg Take 1 [facility] 1 mg tablet 1-28 tablet by ity of 00:00: mouth in [address] morning [place] and 1 tablet at noon and 1 tablet in the evening. cephALEXin 2022-1 Yes [id number] 500mg Take 1 [facility] 500 mg 1-28 capsule by ity of capsule 00:00: mouth in [address] morning [place] and 1 capsule in the evening. clonazePAM 2022-1 Yes [id number] 1mg Take 1 [facility] 1 mg tablet 1-28 tablet by ity of 00:00: mouth in [address] morning [place] and 1 tablet at noon and 1 tablet in the evening. cephALEXin 2022-1 Yes [id number] 500mg Take 1 [facility] 500 mg 1-28 capsule by ity of capsule 00:00: mouth in [place] [address] the Medical morning Branch and 1 capsule in the evening. clonazePAM 2-1 Yes [id number] 1mg Take 1 [facility] 1 mg tablet 1-28 tablet by ity of 00:00: mouth in [place] [address] the Medical morning Branch and 1 tablet at noon and 1 tablet in the evening. cephALEXin 2021-1 Yes [id number] 500mg Take 1 [facility] 500 mg 1-28 capsule by ity of capsule 00:00: mouth in [address] Medical morning [place] and 1 capsule in the evening. clonazePAM 2021-1 Yes [id number] 1mg Take 1 [facility] 1 mg tablet 1-28 tablet by ity of 00:00: mouth in [address] Medical morning [place] and 1 tablet at noon and 1 tablet in the evening. cephALEXin 2021-1 Yes [id number] 500mg Take 1 [facility] 500 mg 1-28 capsule by ity of capsule 00:00: mouth in [address] morning [place] and 1 capsule in the evening. clonazePAM 2021-1 Yes [id number] 1mg Take 1 [facility] 1 mg tablet 1-28 tablet by ity of 00:00: mouth in [address] morning [place] and 1 tablet at noon and 1 tablet in the evening. cephALEXin 2021-1 Yes [id number] 500mg Take 1 [facility] 500 mg 1-28 capsule by ity of capsule 00:00: mouth in [address] morning [place] and 1 capsule in the evening. clonazePAM 2021-1 Yes [id number] 1mg Take 1 [facility] 1 mg tablet 1-28 tablet by ity of 00:00: mouth in [address] morning [place] and 1 tablet at noon and 1 tablet in the evening. cephALEXin 2021-1 Yes [id number] 500mg Take 1 [facility] 500 mg 1-28 capsule by ity of capsule 00:00: mouth in [address] morning [place] and 1 capsule in the evening. clonazePAM 2022-1 Yes [id number] 1mg Take 1 [facility] 1 mg tablet 1-28 tablet by ity of 00:00: mouth in [address] morning [place] and 1 tablet at noon and 1 tablet in the evening. cephALEXin 2022-1 Yes [id number] 500mg Take 1 [facility] 500 mg 1-28 capsule by ity of capsule 00:00: mouth in [place] 00 the Medical morning Branch and 1 capsule in the evening. clonazePAM 2021-03 Yes [id number] 1mg Take 1 [facility] 1 mg tablet 1-28 tablet by ity of 00:00: mouth in [address] morning [place] and 1 tablet at noon and 1 tablet in the evening. cephALEXin 2021-03 Yes [id number] 500mg Take 1 [facility] 500 mg 1-28 capsule by ity of capsule 00:00: mouth in [place] [address] the [facility] morning [place] and 1 capsule in the evening. cephALEXin 2021-03 Yes [id number] 500mg Take 1 [facility] 500 mg 1-28 capsule by ity of capsule 00:00: mouth in [address] morning [place] and 1 capsule in the evening. cephALEXin 2021-03 Yes [id number] 500mg Take 1 [facility] 500 mg 1-28 capsule by ity of capsule 00:00: mouth in [address] morning [place] and 1 capsule in the evening. cephALEXin 2021-03 Yes [id number] 500mg Take 1 [facility] 500 mg 1-28 capsule by ity of capsule 00:00: mouth in [address] morning [place] and 1 capsule in the evening. cephALEXin 2021-03 Yes [id number] 500mg Take 1 [facility] 500 mg 1-28 capsule by ity of capsule 00:00: mouth in [address] morning [place] and 1 capsule in the evening. cephALEXin 2021-03 Yes [id number] 500mg Take 1 [facility] 500 mg 1-28 capsule by ity of capsule 00:00: mouth in [address] morning [place] and 1 capsule in the evening. cephALEXin 2021-03 Yes [id number] 500mg Take 1 [facility] 500 mg 1-28 capsule by ity of capsule 00:00: mouth in [address] morning [place] and 1 capsule in the evening. cephALEXin 2021-2022- No [id number] 500mg Take 1 [facility] 500 mg 1-28 05-09 capsule by ity of capsule 00:00: 00:00 mouth in [place] 00 :00 [facility] morning [place] and 1 capsule in the evening. cephALEXin 2021-2022- No [id number] 500mg Take 1 [facility] 500 mg 1-28 05-09 capsule by ity of capsule 00:00: 00:00 mouth in [place] 00 :00 [facility] morning [place] and 1 capsule in the evening. clonazePAM 2021-03- No [id number] 1mg Take 1 [facility] 1 mg tablet 04-25 tablet by it y of 00:00: 00:00 mouth in [place] 00 :00 the Medical morning Branch and 1 tablet at noon and 1 tablet in the evening. clonazePAM 2021-03- No [id number] 1mg Take 1 [facility] 1 mg tablet 04-25 tablet by it y of 00:00: 00:00 mouth in [place] 00 :00 the Medical morning Branch and 1 tablet at noon and 1 tablet in the evening. clonazePAM 2021-03- No [id number] 1mg Take 1 [facility] 1 mg tablet 04-25 tablet by it y of 00:00: 00:00 mouth in [place] 00 :00 the Medical morning Branch and 1 tablet at noon and 1 tablet in the evening. dextroamphe 2021-03- No [id number] 20mg Take 1 [facility] tamine-amph 04-25 12-20 tablet by it y of etamine 00:00: 00:00 mouth in [place] ([facility]) 00 :00 the Medical 20 mg morning Branch tablet and 1 tablet at noon and 1 tablet in the evening. clonazePAM 2021-03 Yes [id number] 1mg Take 1 [facility] 1 mg tablet - tablet by ity of 00:00: mouth in [place] 00 the Medical morning Branch and 1 tablet at noon and 1 tablet in the evening. cephALEXin 2021-03 Yes [id number] 500mg Take 1 [facility] 500 mg 1-01 capsule by ity of capsule 00:00: mouth in [place] 00 the Medical morning Branch and 1 capsule in the evening. clonazePAM 2021-03 Yes [id number] 1mg Take 1 [facility] 1 mg tablet 1-01 tablet by ity of 00:00: mouth in [place] 00 the Medical morning Branch and 1 tablet at noon and 1 tablet in the evening. cephALEXin 2021-03 Yes [id number] 500mg Take 1 [facility] 500 mg 1-01 capsule by ity of capsule 00:00: mouth in [place] 00 the Medical morning Branch and 1 capsule in the evening. clonazePAM 2021-03- No [id number] 1mg Take 1 [facility] 1 mg tablet 1-02-23 tablet by it y of 00:00: 00:00 mouth in [place] 00 :00 the Medical morning Branch and 1 tablet at noon and 1 tablet in the evening. cephALEXin 2021-03- No [id number] 500mg Take 1 [facility] 500 mg 03-29 capsule by ity of capsule 00:00: 00:00 mouth in [place] 00 :00 the Medical morning Branch and 1 capsule in the evening. busPIRone 2021-03 Yes [id number] 10mg Take 1 U nivers 10 mg 0-25 tablet by ity of tablet 00:00: mouth in [place] 00 the Medical morning Branch and 1 tablet in the evening. busPIRone 2021-03 Yes [id number] 10mg Take 1 U nivers 10 mg 0-25 tablet by ity of tablet 00:00: mouth in [place] 00 the Medical morning Branch and 1 tablet in the evening. dextroamphe 2021-03 Yes [id number] 20mg Take 1 [facility] tamine-amph 0-25 tablet by ity of etamine 00:00: mouth in [place] ([facility]) 00 the Medical 20 mg morning Branch tablet and 1 tablet at noon and 1 tablet in the evening. busPIRone 2021-03 Yes [id number] 10mg Take 1 U nivers 10 mg 0-25 tablet by ity of tablet 00:00: mouth in [place] 00 the Medical morning Branch and 1 tablet in the evening. dextroamphe 2021-03 Yes [id number] 20mg Take 1 [facility] tamine-amph 0-25 tablet by ity of etamine 00:00: mouth in [place] ([facility]) 00 the Medical 20 mg morning Branch tablet and 1 tablet at noon and 1 tablet in the evening. busPIRone 2021-03 Yes [id number] 10mg Take 1 U nivers 10 mg 0-25 tablet by ity of tablet 00:00: mouth in [place] 00 the Medical morning Branch and 1 tablet in the evening. dextroamphe 2021-03 Yes [id number] 20mg Take 1 [facility] tamine-amph 0-25 tablet by ity of etamine 00:00: mouth in [place] ([facility]) 00 the Medical 20 mg morning Branch tablet and 1 tablet at noon and 1 tablet in the evening. busPIRone 2021-03 Yes [id number] 10mg Take 1 U nivers 10 mg 0-25 tablet by ity of tablet 00:00: mouth in [place] 00 the Medical morning Branch and 1 tablet in the evening. dextroamphe 2021-03 Yes [id number] 20mg Take 1 [facility] tamine-amph 0-25 tablet by ity of etamine 00:00: mouth in [place] ([facility]) 00 the Medical 20 mg morning Branch tablet and 1 tablet at noon and 1 tablet in the evening. busPIRone 2021-03 Yes [id number] 10mg Take 1 U nivers 10 mg 0-25 tablet by ity of tablet 00:00: mouth in [place] 00 the Medical morning Branch and 1 tablet in the evening. dextroamphe 2021-03 Yes [id number] 20mg Take 1 [facility] tamine-amph 0-25 tablet by ity of etamine 00:00: mouth in [place] ([facility]) 00 the Medical 20 mg morning Branch tablet and 1 tablet at noon and 1 tablet in the evening. busPIRone 2021-03 Yes [id number] 10mg Take 1 U nivers 10 mg 0-25 tablet by ity of tablet 00:00: mouth in [place] 00 the Medical morning Branch and 1 tablet in the evening. dextroamphe 2021-03 Yes [id number] 20mg Take 1 [facility] tamine-amph 0-25 tablet by ity of etamine 00:00: mouth in [place] [facility] the Medical 20 mg morning Branch tablet and 1 tablet at noon and 1 tablet in the evening. busPIRone 2021-03 Yes [id number] 10mg Take 1 U nivers 10 mg 0-25 tablet by ity of tablet 00:00: mouth in [place] 00 the Medical morning Branch and 1 tablet in the evening. dextroamphe 2021-03 Yes [id number] 20mg Take 1 [facility] tamine-amph 0-25 tablet by ity of etamine 00:00: mouth in [place] ([facility]) 00 the Medical 20 mg morning Branch tablet and 1 tablet at noon and 1 tablet in the evening. dextroamphe 2021-03 Yes [id number] 20mg Take 1 [facility] tamine-amph 0-25 tablet by ity of etamine 00:00: mouth in [place] ([facility]) 00 the Medical 20 mg morning Branch tablet and 1 tablet at noon and 1 tablet in the evening. dextroamphe 2021-03 Yes [id number] 20mg Take 1 [facility] tamine-amph 0-25 tablet by ity of etamine 00:00: mouth in [place] ([facility]) 00 the Medical 20 mg morning Branch tablet and 1 tablet at noon and 1 tablet in the evening. dextroamphe 2021-03- No [id number] 20mg Take 1 [facility] tamine-amph 0-25 11-28 tablet by it y of etamine 00:00: 00:00 mouth in [place] ([facility]) 00 :00 the Medical 20 mg morning Branch tablet and 1 tablet at noon and 1 tablet in the evening. busPIRone 2021-03- No [id number] 10mg Take 1 [facility] 10 mg 0-25 11- tablet by ity of tablet 00:00: 00:00 mouth in [place] 00 :00 the Medical morning Branch and 1 tablet in the evening. busPIRone 2021-03- No [id number] 10mg Take 1 [facility] 10 mg 0-25 11- tablet by ity of tablet 00:00: 00:00 mouth in [place] 00 :00 the Medical morning Branch and 1 tablet in the evening. dextroamphe 2021-0 Yes [id number] 20mg Take 1 [facility] tamine-amph 9-26 tablet by ity of etamine 00:00: mouth in [place] [facility] the Medical 20 mg morning Branch tablet and 1 tablet at noon and 1 tablet in the evening. dextroamphe 2021-0 Yes [id number] 20mg Take 1 [facility] tamine-amph 9-26 tablet by ity of etamine 00:00: mouth in [place] [facility] 00 the Medical 20 mg morning Branch tablet and 1 tablet at noon and 1 tablet in the evening. dextroamphe 2-0 Yes [id number] 20mg Take 1 [facility] tamine-amph 9-26 tablet by ity of etamine 00:00: mouth in [place] ([facility]) 00 the Medical 20 mg morning Branch tablet and 1 tablet at noon and 1 tablet in the evening. dextroamphe 2022-0 Yes [id number] 20mg Take 1 [facility] tamine-amph 9-26 tablet by ity of etamine 00:00: mouth in [place] ([facility]) 00 the Medical 20 mg morning Branch tablet and 1 tablet at noon and 1 tablet in the evening. dextroamphe 2022-0 Yes [id number] 20mg Take 1 [facility] tamine-amph 9-26 tablet by ity of etamine 00:00: mouth in [place] ([facility]) 00 the Medical 20 mg morning Branch tablet and 1 tablet at noon and 1 tablet in the evening. dextroamphe 2021-0 Yes [id number] 20mg Take 1 [facility] tamine-amph 9-26 tablet by ity of etamine 00:00: mouth in [place] ([facility]) 00 the Medical 20 mg morning Branch tablet and 1 tablet at noon and 1 tablet in the evening. dextroamphe 2021-0 Yes [id number] 20mg Take 1 [facility] tamine-amph 9-26 tablet by ity of etamine 00:00: mouth [facility] [place] [facility] 00 the Medical 20 mg morning Branch tablet and 1 tablet at noon and 1 tablet in the evening. dextroamphe 2021-0 2- No [id number] 20mg Take 1 [facility] tamine-amph 9-26 10-25 tablet by it y of etamine 00:00: 00:00 mouth in [place] ([facility]) 00 :00 the Medical 20 mg morning Branch tablet and 1 tablet at noon and 1 tablet in the evening. dextroamphe 2021-0 2- No [id number] 20mg Take 1 [facility] tamine-amph 9-26 10-25 tablet by it y of etamine 00:00: 00:00 mouth in [place] ([facility]) 00 :00 the Medical 20 mg morning Branch tablet and 1 tablet at noon and 1 tablet in the evening. PERMETHRIN 0 Yes [id number] APPLY TO [facility] 5 % cream 9-08 SKIN AND ity of 00:00: LEAVE ON [place] 00 FOR 8 - 10 Medical HOURS THEN Branch REPEAT IN A WEEK PERMETHRIN 2021-0 Yes [id number] APPLY TO [facility] 5 % cream 9-08 SKIN AND ity of 00:00: LEAVE ON [place] 00 FOR 8 - 10 Medical HOURS THEN Branch REPEAT IN A WEEK PERMETHRIN 2021-0 Yes [id number] APPLY TO [facility] 5 % cream 9-08 SKIN AND ity of 00:00: LEAVE ON [place] 00 FOR 8 - 10 Medical HOURS THEN Branch REPEAT IN A WEEK PERMETHRIN 2021-0 Yes [id number] APPLY TO [facility] 5 % cream 9-08 SKIN AND ity of 00:00: LEAVE ON [place] 00 FOR 8 - 10 Medical HOURS THEN Branch REPEAT IN A WEEK PERMETHRIN 0 Yes [id number] APPLY TO [facility] 5 % cream 9-08 SKIN AND ity of 00:00: LEAVE ON [place] 00 FOR 8 - 10 Medical HOURS THEN Branch REPEAT IN A WEEK PERMETHRIN 0 Yes [id number] APPLY TO [facility] 5 % cream 9-08 SKIN AND ity of 00:00: LEAVE ON 00 FOR 8 - 10 Medical HOURS THEN Branch REPEAT IN A WEEK PERMETHRIN 0 Yes [id number] APPLY TO [facility] 5 % cream 9-08 SKIN AND ity of 00:00: LEAVE ON [place] 00 FOR 8 - 10 Medical HOURS THEN Branch REPEAT IN A WEEK PERMETHRIN 0 Yes [id number] APPLY TO [facility] 5 % cream 9-08 SKIN AND ity of 00:00: LEAVE ON [place] 00 FOR 8 - 10 Medical HOURS THEN Branch REPEAT IN A WEEK PERMETHRIN Yes [id number] APPLY TO [facility] 5 % cream 9-08 SKIN AND ity of 00:00: LEAVE ON [place] 00 FOR 8 - 10 Medical HOURS THEN Branch REPEAT IN A WEEK PERMETHRIN 0 Yes [id number] APPLY TO [facility] 5 % cream 9-08 SKIN AND ity of 00:00: LEAVE ON [place] 00 FOR 8 - 10 Medical HOURS THEN Branch REPEAT IN A WEEK PERMETHRIN 0 Yes [id number] APPLY TO [facility] 5 % cream 9-08 SKIN AND ity of 00:00: LEAVE ON [place] 00 FOR 8 - 10 Medical HOURS THEN Branch REPEAT IN A WEEK PERMETHRIN 0 Yes [id number] APPLY TO [facility] 5 % cream 9-08 SKIN AND ity of 00:00: LEAVE ON [place] 00 FOR 8 - 10 Medical HOURS THEN Branch REPEAT IN A WEEK PERMETHRIN 0 Yes [id number] APPLY TO [facility] 5 % cream 9-08 SKIN AND ity of 00:00: LEAVE ON 00 FOR 8 - 10 Medical HOURS THEN Branch REPEAT IN A WEEK PERMETHRIN 0 Yes [id number] APPLY TO [facility] 5 % cream 9-08 SKIN AND ity of 00:00: LEAVE ON [place] 00 FOR 8 - 10 Medical HOURS THEN Branch REPEAT IN A WEEK PERMETHRIN 0 Yes [id number] APPLY TO [facility] 5 % cream 9-08 SKIN AND ity of 00:00: LEAVE ON [place] 00 FOR 8 - 10 Medical HOURS THEN Branch REPEAT IN A WEEK PERMETHRIN 0 Yes [id number] APPLY TO [facility] 5 % cream 9-08 SKIN AND ity of 00:00: LEAVE ON [place] 00 FOR 8 - 10 Medical HOURS THEN Branch REPEAT IN A WEEK PERMETHRIN 0 2021- No [id number] APPLY TO [facility] 5 % cream 12-04 11- SKIN AND ity o f 00:00: 00:00 LEAVE ON [place] 00 :00 FOR 8 - 10 Medical HOURS THEN Branch REPEAT IN A WEEK PERMETHRIN 0 2021- No [id number] APPLY TO [facility] 5 % cream 12-04- SKIN AND ity o f 00:00: 00:00 LEAVE ON [place] 00 :00 FOR 8 - 10 Medical HOURS THEN Branch REPEAT IN A WEEK triamcinolo 0 Yes [id number] Apply to [facility] ne 8-31 area(s) 2 ity of acetonide 00:00: (two) [place] 0.1 % cream 00 times Medical daily. To Branch bumps mupirocin 2 0 Yes [id number] Apply to [facility] % ointment 8-31 area(s) 3 ity of 00:00: (three) [place] 00 times Medical daily. To Branch open wounds triamcinolo 2021-0 Yes [id number] Apply to [facility] ne 8-31 area(s) 2 ity of acetonide 00:00: (two) [place] 0.1 % cream 00 times Medical daily. To Branch bumps mupirocin 2 2021-0 Yes [id number] Apply to [facility] % ointment 8-31 area(s) 3 ity of 00:00: (three) [place] 00 times Medical daily. To Branch open wounds triamcinolo 2021-0 Yes [id number] Apply to [facility] ne 8-31 area(s) 2 ity of acetonide 00:00: (two) [place] 0.1 % cream 00 times Medical daily. To Branch bumps mupirocin 2 2021-0 Yes [id number] Apply to [facility] % ointment 8-31 area(s) 3 ity of 00:00: (three) [place] 00 times Medical daily. To Branch open wounds triamcinolo 2022-0 Yes [id number] Apply to [facility] ne 8-31 area(s) 2 ity of acetonide 00:00: (two) [place] 0.1 % cream 00 times Medical daily. To Branch bumps mupirocin 2 2021-0 Yes [id number] Apply to [facility] % ointment 8-31 area(s) 3 ity of 00:00: (three) [place] 00 times Medical daily. To Branch open wounds triamcinolo 2021-0 Yes [id number] Apply to [facility] ne 8-31 area(s) 2 ity of acetonide 00:00: (two) [place] 0.1 % cream 00 times Medical daily. To Branch bumps mupirocin 2 2021-0 Yes [id number] Apply to [facility] % ointment 8-31 area(s) 3 ity of 00:00: (three) [place] 00 times Medical daily. To Branch open wounds triamcinolo 2021-0 Yes [id number] Apply to [facility] ne 8-31 area(s) 2 ity of acetonide 00:00: (two) [place] 0.1 % cream 00 times Medical daily. To Branch bumps mupirocin 2 2021-0 Yes [id number] Apply to [facility] % ointment 8-31 area(s) 3 ity of 00:00: (three) [place] 00 times Medical daily. To Branch open wounds triamcinolo 2021-0 Yes [id number] Apply to [facility] ne 8-31 area(s) 2 ity of acetonide 00:00: (two) [place] 0.1 % cream 00 times Medical daily. To Branch bumps mupirocin 2 2021-0 Yes [id number] Apply to [facility] % ointment 8-31 area(s) 3 ity of 00:00: (three) [place] 00 times Medical daily. To Branch open wounds triamcinolo 2-0 Yes [id number] Apply to [facility] ne 8-31 area(s) 2 ity of acetonide 00:00: (two) [place] 0.1 % cream 00 times Medical daily. To Branch bumps mupirocin 2 2-0 Yes [id number] Apply to [facility] % ointment 8-31 area(s) 3 ity of 00:00: (three) [place] 00 times Medical daily. To Branch open wounds triamcinolo 2-0 Yes [id number] Apply to [facility] ne 8-31 area(s) 2 ity of acetonide 00:00: (two) [place] 0.1 % cream 00 times Medical daily. To Branch bumps mupirocin 2 2021-0 Yes [id number] Apply to [facility] % ointment 8-31 area(s) 3 ity of 00:00: (three) [place] 00 times Medical daily. To Branch open wounds triamcinolo 2-0 Yes [id number] Apply to [facility] ne 8-31 area(s) 2 ity of acetonide 00:00: (two) [place] 0.1 % cream 00 times Medical daily. To Branch bumps mupirocin 2 2021-0 Yes [id number] Apply to [facility] % ointment 8-31 area(s) 3 ity of 00:00: (three) [place] 00 times Medical daily. To Branch open wounds triamcinolo 2021-0 Yes [id number] Apply to [facility] ne 8-31 area(s) 2 ity of acetonide 00:00: (two) [place] 0.1 % cream 00 times Medical daily. To Branch bumps mupirocin 2 2021-0 Yes [id number] Apply to [facility] % ointment 8-31 area(s) 3 ity of 00:00: (three) [place] 00 times Medical daily. To Branch open wounds triamcinolo 2-0 Yes [id number] Apply to [facility] ne 8-31 area(s) 2 ity of acetonide 00:00: (two) [place] 0.1 % cream 00 times Medical daily. To Branch bumps mupirocin 2 2021-0 Yes [id number] Apply to [facility] % ointment 8-31 area(s) 3 ity of 00:00: (three) [place] 00 times Medical daily. To Branch open wounds triamcinolo 2-0 Yes [id number] Apply to [facility] ne 8-31 area(s) 2 ity of acetonide 00:00: (two) [place] 0.1 % cream 00 times Medical daily. To Branch bumps mupirocin 2 2-0 Yes [id number] Apply to [facility] % ointment 8-31 area(s) 3 ity of 00:00: (three) [place] 00 times Medical daily. To Branch open wounds triamcinolo 2-0 Yes [id number] Apply to [facility] ne 8-31 area(s) 2 ity of acetonide 00:00: (two) [place] 0.1 % cream 00 times Medical daily. To Branch bumps mupirocin 2 2-0 Yes [id number] Apply to [facility] % ointment 8-31 area(s) 3 ity of 00:00: (three) [place] 00 times Medical daily. To Branch open wounds triamcinolo 2-0 Yes [id number] Apply to [facility] ne 8-31 area(s) 2 ity of acetonide 00:00: (two) [place] 0.1 % cream 00 times Medical daily. To Branch bumps mupirocin 2 2021-0 Yes [id number] Apply to [facility] % ointment 8-31 area(s) 3 ity of 00:00: (three) [place] 00 times Medical daily. To Branch open wounds triamcinolo 2-0 Yes [id number] Apply to [facility] ne 8-31 area(s) 2 ity of acetonide 00:00: (two) [place] 0.1 % cream 00 times Medical daily. To Branch bumps mupirocin 2 2021-0 Yes [id number] Apply to [facility] % ointment 8-31 area(s) 3 ity of 00:00: (three) [place] 00 times Medical daily. To Branch open wounds triamcinolo 2-0 Yes [id number] Apply to [facility] ne 8-31 area(s) 2 ity of acetonide 00:00: (two) [place] 0.1 % cream 00 times Medical daily. To Branch bumps mupirocin 2 2-0 Yes [id number] Apply to [facility] % ointment 8-31 area(s) 3 ity of 00:00: (three) [place] 00 times Medical daily. To Branch open wounds triamcinolo 2-0 Yes [id number] Apply to [facility] ne 8-31 area(s) 2 ity of acetonide 00:00: (two) [place] 0.1 % cream 00 times Medical daily. To Branch bumps mupirocin 2 2-0 Yes [id number] Apply to [facility] % ointment 8-31 area(s) 3 ity of 00:00: (three) [place] 00 times Medical daily. To Branch open wounds triamcinolo 2-0 Yes [id number] Apply to [facility] ne 8-31 area(s) 2 ity of acetonide 00:00: (two) [place] 0.1 % cream 00 times Medical daily. To Branch bumps mupirocin 2 2-0 Yes [id number] Apply to [facility] % ointment 8-31 area(s) 3 ity of 00:00: (three) [place] 00 times Medical daily. To Branch open wounds triamcinolo 2-0 Yes [id number] Apply to [facility] ne 8-31 area(s) 2 ity of acetonide 00:00: (two) [place] 0.1 % cream 00 times Medical daily. To Branch bumps mupirocin 2 2021-0 Yes [id number] Apply to [facility] % ointment 8-31 area(s) 3 ity of 00:00: (three) [place] 00 times Medical daily. To Branch open wounds triamcinolo 2021-0 Yes [id number] Apply to [facility] ne 8-31 area(s) 2 ity of acetonide 00:00: (two) [place] 0.1 % cream 00 times Medical daily. To Branch bumps mupirocin 2 2021-0 Yes [id number] Apply to [facility] % ointment 8-31 area(s) 3 ity of 00:00: (three) [place] 00 times Medical daily. To Branch open wounds triamcinolo 2-0 Yes [id number] Apply to [facility] ne 8-31 area(s) 2 ity of acetonide 00:00: (two) [place] 0.1 % cream 00 times Medical daily. To Branch bumps mupirocin 2 2-0 Yes [id number] Apply to [facility] % ointment 8-31 area(s) 3 ity of 00:00: (three) [place] 00 times Medical daily. To Branch open wounds triamcinolo 2-0 Yes [id number] Apply to [facility] ne 8-31 area(s) 2 ity of acetonide 00:00: (two) [place] 0.1 % cream 00 times Medical daily. To Branch bumps mupirocin 2 2-0 Yes [id number] Apply to [facility] % ointment 8-31 area(s) 3 ity of 00:00: (three) [place] 00 times Medical daily. To Branch open wounds triamcinolo 2022-0 Yes [id number] Apply to [facility] ne 8-31 area(s) 2 ity of acetonide 00:00: (two) [place] 0.1 % cream 00 times Medical daily. To Branch bumps mupirocin 2 2-0 Yes [id number] Apply to [facility] % ointment 8-31 area(s) 3 ity of 00:00: (three) [place] 00 times Medical daily. To Branch open wounds dextroamphe 2022-0 Yes [id number] 20mg Take 1 [facility] tamine-amph 8-31 tablet by ity of etamine 00:00: mouth in [place] ([facility]) 00 the Medical 20 mg morning Branch tablet and 1 tablet at noon and 1 tablet in the evening. triamcinolo 2022-0 Yes [id number] Apply to [facility] ne 8-31 area(s) 2 ity of acetonide 00:00: (two) [place] 0.1 % cream 00 times Medical daily. To Branch bumps mupirocin 2 2021-0 Yes [id number] Apply to [facility] % ointment 8-31 area(s) 3 ity of 00:00: (three) [place] 00 times Medical daily. To Branch open wounds dextroamphe 2-0 Yes [id number] 20mg Take 1 [facility] tamine-amph 8-31 tablet by ity of etamine 00:00: mouth in [place] ([facility]) 00 the Medical 20 mg morning Branch tablet and 1 tablet at noon and 1 tablet in the evening. triamcinolo 2022-0 Yes [id number] Apply to [facility] ne 8-31 area(s) 2 ity of acetonide 00:00: (two) [place] 0.1 % cream 00 times Medical daily. To Branch bumps mupirocin 2 2-0 Yes [id number] Apply to [facility] % ointment 8-31 area(s) 3 ity of 00:00: (three) [place] 00 times Medical daily. To Branch open wounds dextroamphe 2022-0 Yes [id number] 20mg Take 1 [facility] tamine-amph 8-31 tablet by ity of etamine 00:00: mouth in [place] ([facility]) 00 the Medical 20 mg morning Branch tablet and 1 tablet at noon and 1 tablet in the evening. triamcinolo 2-0 Yes [id number] Apply to [facility] ne 8-31 area(s) 2 ity of acetonide 00:00: (two) [place] 0.1 % cream 00 times Medical daily. To Branch bumps mupirocin 2 2021-0 Yes [id number] Apply to [facility] % ointment 8-31 area(s) 3 ity of 00:00: (three) [place] 00 times Medical daily. To Branch open wounds triamcinolo 2-0 Yes [id number] Apply to [facility] ne 8-31 area(s) 2 ity of acetonide 00:00: (two) [place] 0.1 % cream 00 times Medical daily. To Branch bumps mupirocin 2 2021-0 Yes [id number] Apply to [facility] % ointment 8-31 area(s) 3 ity of 00:00: (three) [place] 00 times Medical daily. To Branch open wounds triamcinolo 2021-0 Yes [id number] Apply to [facility] ne 8-31 area(s) 2 ity of acetonide 00:00: (two) [place] 0.1 % cream 00 times Medical daily. To Branch bumps mupirocin 2 2021-0 Yes [id number] Apply to [facility] % ointment 8-31 area(s) 3 ity of 00:00: (three) [place] 00 times Medical daily. To Branch open wounds triamcinolo 2-0 Yes [id number] Apply to [facility] ne 8-31 area(s) 2 ity of acetonide 00:00: (two) [place] 0.1 % cream 00 times Medical daily. To Branch bumps mupirocin 2 2-0 Yes [id number] Apply to [facility] % ointment 8-31 area(s) 3 ity of 00:00: (three) [place] 00 times Medical daily. To Branch open wounds triamcinolo 2-0 Yes [id number] Apply to [facility] ne 8-31 area(s) 2 ity of acetonide 00:00: (two) [place] 0.1 % cream 00 times Medical daily. To Branch bumps mupirocin 2 2022-0 Yes [id number] Apply to [facility] % ointment 8-31 area(s) 3 ity of 00:00: (three) [place] 00 times Medical daily. To Branch open wounds triamcinolo 2-0 Yes [id number] Apply to [facility] ne 8-31 area(s) 2 ity of acetonide 00:00: (two) [place] 0.1 % cream 00 times Medical daily. To Branch bumps mupirocin 2 2021-0 Yes [id number] Apply to [facility] % ointment 8-31 area(s) 3 ity of 00:00: (three) [place] 00 times Medical daily. To Branch open wounds triamcinolo 2-0 Yes [id number] Apply to [facility] ne 8-31 area(s) 2 ity of acetonide 00:00: (two) [place] 0.1 % cream 00 times Medical daily. To Branch bumps mupirocin 2 2021-0 Yes [id number] Apply to [facility] % ointment 8-31 area(s) 3 ity of 00:00: (three) [place] 00 times Medical daily. To Branch open wounds triamcinolo 2021-0 Yes [id number] Apply to [facility] ne 8-31 area(s) 2 ity of acetonide 00:00: (two) [place] 0.1 % cream 00 times Medical daily. To Branch bumps mupirocin 2 2021-0 Yes [id number] Apply to [facility] % ointment 8-31 area(s) 3 ity of 00:00: (three) [place] 00 times Medical daily. To Branch open wounds triamcinolo 2-0 Yes [id number] Apply to [facility] ne 8-31 area(s) 2 ity of acetonide 00:00: (two) [place] 0.1 % cream 00 times Medical daily. To Branch bumps mupirocin 2 2-0 Yes [id number] Apply to [facility] % ointment 8-31 area(s) 3 ity of 00:00: (three) [place] 00 times Medical daily. To Branch open wounds triamcinolo 2-0 Yes [id number] Apply to [facility] ne 8-31 area(s) 2 ity of acetonide 00:00: (two) [place] 0.1 % cream 00 times Medical daily. To Branch bumps mupirocin 2 2021-0 Yes [id number] Apply to [facility] % ointment 8-31 area(s) 3 ity of 00:00: (three) [place] 00 times Medical daily. To Branch open wounds triamcinolo 2-0 Yes [id number] Apply to [facility] ne 8-31 area(s) 2 ity of acetonide 00:00: (two) [place] 0.1 % cream 00 times Medical daily. To Branch bumps mupirocin 2 2021-0 Yes [id number] Apply to [facility] % ointment 8-31 area(s) 3 ity of 00:00: (three) [place] 00 times Medical daily. To Branch open wounds triamcinolo 2021-0 Yes [id number] Apply to [facility] ne 8-31 area(s) 2 ity of acetonide 00:00: (two) [place] 0.1 % cream 00 times Medical daily. To Branch bumps mupirocin 2 2021-0 Yes [id number] Apply to [facility] % ointment 8-31 area(s) 3 ity of 00:00: (three) [place] 00 times Medical daily. To Branch open wounds triamcinolo 2021-0 Yes [id number] Apply to [facility] ne 8-31 area(s) 2 ity of acetonide 00:00: (two) [place] 0.1 % cream 00 times Medical daily. To Branch bumps mupirocin 2 2021-0 Yes [id number] Apply to [facility] % ointment 8-31 area(s) 3 ity of 00:00: (three) [place] 00 times Medical daily. To Branch open wounds triamcinolo 2-0 Yes [id number] Apply to [facility] ne 8-31 area(s) 2 ity of acetonide 00:00: (two) [place] 0.1 % cream 00 times Medical daily. To Branch bumps mupirocin 2 2-0 Yes [id number] Apply to [facility] % ointment 8-31 area(s) 3 ity of 00:00: (three) [place] 00 times Medical daily. To Branch open wounds triamcinolo 2-0 Yes [id number] Apply to [facility] ne 8-31 area(s) 2 ity of acetonide 00:00: (two) [place] 0.1 % cream 00 times Medical daily. To Branch bumps mupirocin 2 2-0 Yes [id number] Apply to [facility] % ointment 8-31 area(s) 3 ity of 00:00: (three) [place] 00 times Medical daily. To Branch open wounds triamcinolo 2-0 Yes [id number] Apply to [facility] ne 8-31 area(s) 2 ity of acetonide 00:00: (two) [place] 0.1 % cream 00 times Medical daily. To Branch bumps mupirocin 2 2021-0 Yes [id number] Apply to [facility] % ointment 8-31 area(s) 3 ity of 00:00: (three) [place] 00 times Medical daily. To Branch open wounds triamcinolo 2-0 Yes [id number] Apply to [facility] ne 8-31 area(s) 2 ity of acetonide 00:00: (two) [place] 0.1 % cream 00 times Medical daily. To Branch bumps mupirocin 2 2021-0 Yes [id number] Apply to [facility] % ointment 8-31 area(s) 3 ity of 00:00: (three) [place] 00 times Medical daily. To Branch open wounds triamcinolo 2-0 Yes [id number] Apply to [facility] ne 8-31 area(s) 2 ity of acetonide 00:00: (two) [place] 0.1 % cream 00 times Medical daily. To Branch bumps mupirocin 2 2021-0 Yes [id number] Apply to [facility] % ointment 8-31 area(s) 3 ity of 00:00: (three) [place] 00 times Medical daily. To Branch open wounds triamcinolo 2-0 Yes [id number] Apply to [facility] ne 8-31 area(s) 2 ity of acetonide 00:00: (two) [place] 0.1 % cream 00 times Medical daily. To Branch bumps mupirocin 2 2-0 Yes [id number] Apply to [facility] % ointment 8-31 area(s) 3 ity of 00:00: (three) [place] 00 times Medical daily. To Branch open wounds triamcinolo 2-0 Yes [id number] Apply to [facility] ne 8-31 area(s) 2 ity of acetonide 00:00: (two) [place] 0.1 % cream 00 times Medical daily. To Branch bumps mupirocin 2 2-0 Yes [id number] Apply to [facility] % ointment 8-31 area(s) 3 ity of 00:00: (three) [place] 00 times Medical daily. To Branch open wounds triamcinolo 2-0 Yes [id number] Apply to [facility] ne 8-31 area(s) 2 ity of acetonide 00:00: (two) [place] 0.1 % cream 00 times Medical daily. To Branch bumps mupirocin 2 2021-0 Yes [id number] Apply to [facility] % ointment 8-31 area(s) 3 ity of 00:00: (three) [place] 00 times Medical daily. To Branch open wounds triamcinolo 2-0 Yes [id number] Apply to [facility] ne 8-31 area(s) 2 ity of acetonide 00:00: (two) [place] 0.1 % cream 00 times Medical daily. To Branch bumps mupirocin 2 2021-0 Yes [id number] Apply to [facility] % ointment 8-31 area(s) 3 ity of 00:00: (three) [place] 00 times Medical daily. To Branch open wounds triamcinolo 2-0 Yes [id number] Apply to [facility] ne 8-31 area(s) 2 ity of acetonide 00:00: (two) [place] 0.1 % cream 00 times Medical daily. To Branch bumps mupirocin 2 2-0 Yes [id number] Apply to [facility] % ointment 8-31 area(s) 3 ity of 00:00: (three) [place] 00 times Medical daily. To Branch open wounds triamcinolo 2-0 Yes [id number] Apply to [facility] ne 8-31 area(s) 2 ity of acetonide 00:00: (two) [place] 0.1 % cream 00 times Medical daily. To Branch bumps mupirocin 2 2-0 Yes [id number] Apply to [facility] % ointment 8-31 area(s) 3 ity of 00:00: (three) [place] 00 times Medical daily. To Branch open wounds triamcinolo 2-0 Yes [id number] Apply to [facility] ne 8-31 area(s) 2 ity of acetonide 00:00: (two) [place] 0.1 % cream 00 times Medical daily. To Branch bumps mupirocin 2 2-0 Yes [id number] Apply to [facility] % ointment 8-31 area(s) 3 ity of 00:00: (three) [place] 00 times Medical daily. To Branch open wounds triamcinolo 2022-0 Yes [id number] Apply to [facility] ne 8-31 area(s) 2 ity of acetonide 00:00: (two) [place] 0.1 % cream 00 times Medical daily. To Branch bumps mupirocin 2 2021-0 Yes [id number] Apply to [facility] % ointment 8-31 area(s) 3 ity of 00:00: (three) [place] 00 times Medical daily. To Branch open wounds triamcinolo 2-0 Yes [id number] Apply to [facility] ne 8-31 area(s) 2 ity of acetonide 00:00: (two) [place] 0.1 % cream 00 times Medical daily. To Branch bumps mupirocin 2 2021-0 Yes [id number] Apply to [facility] % ointment 8-31 area(s) 3 ity of 00:00: (three) [place] 00 times Medical daily. To Branch open wounds triamcinolo 2-0 Yes [id number] Apply to [facility] ne 8-31 area(s) 2 ity of acetonide 00:00: (two) [place] 0.1 % cream 00 times Medical daily. To Branch bumps mupirocin 2 2021-0 Yes [id number] Apply to [facility] % ointment 8-31 area(s) 3 ity of 00:00: (three) [place] 00 times Medical daily. To Branch open wounds triamcinolo 2-0 Yes [id number] Apply to [facility] ne 8-31 area(s) 2 ity of acetonide 00:00: (two) [place] 0.1 % cream 00 times Medical daily. To Branch bumps mupirocin 2 2-0 Yes [id number] Apply to [facility] % ointment 8-31 area(s) 3 ity of 00:00: (three) [place] 00 times Medical daily. To Branch open wounds triamcinolo 2-0 Yes [id number] Apply to [facility] ne 8-31 area(s) 2 ity of acetonide 00:00: (two) [place] 0.1 % cream 00 times Medical daily. To Branch bumps mupirocin 2 2-0 Yes [id number] Apply to [facility] % ointment 8-31 area(s) 3 ity of 00:00: (three) [place] 00 times Medical daily. To Branch open wounds triamcinolo 2021-0 Yes [id number] Apply to [facility] ne 8-31 area(s) 2 ity of acetonide 00:00: (two) [place] 0.1 % cream 00 times Medical daily. To Branch bumps mupirocin 2 2021-0 Yes [id number] Apply to [facility] % ointment 8-31 area(s) 3 ity of 00:00: (three) [place] 00 times Medical daily. To Branch open wounds triamcinolo 2021-0 Yes [id number] Apply to [facility] ne 8-31 area(s) 2 ity of acetonide 00:00: (two) [place] 0.1 % cream 00 times Medical daily. To Branch bumps mupirocin 2 2021-0 Yes [id number] Apply to [facility] % ointment 8-31 area(s) 3 ity of 00:00: (three) [place] 00 times Medical daily. To Branch open wounds triamcinolo 2021-0 Yes [id number] Apply to [facility] ne 8-31 area(s) 2 ity of acetonide 00:00: (two) [place] 0.1 % cream 00 times Medical daily. To Branch bumps mupirocin 2 2021-0 Yes [id number] Apply to [facility] % ointment 8-31 area(s) 3 ity of 00:00: (three) [place] 00 times Medical daily. To Branch open wounds triamcinolo 2-0 Yes [id number] Apply to [facility] ne 8-31 area(s) 2 ity of acetonide 00:00: (two) [place] 0.1 % cream 00 times Medical daily. To Branch bumps mupirocin 2 2-0 Yes [id number] Apply to [facility] % ointment 8-31 area(s) 3 ity of 00:00: (three) [place] 00 times Medical daily. To Branch open wounds triamcinolo 2022-0 Yes [id number] Apply to [facility] ne 8-31 area(s) 2 ity of acetonide 00:00: (two) [place] 0.1 % cream 00 times Medical daily. To Branch bumps mupirocin 2 2021-0 Yes [id number] Apply to [facility] % ointment 8-31 area(s) 3 ity of 00:00: (three) [place] 00 times Medical daily. To Branch open wounds triamcinolo 2-0 Yes [id number] Apply to [facility] ne 8-31 area(s) 2 ity of acetonide 00:00: (two) [place] 0.1 % cream 00 times Medical daily. To Branch bumps mupirocin 2 2021-0 Yes [id number] Apply to [facility] % ointment 8-31 area(s) 3 ity of 00:00: (three) [place] 00 times Medical daily. To Branch open wounds triamcinolo 2-0 Yes [id number] [facility] to [facility] area(s) 2 [facility] of acetonide 00:00: (two) [place] 0.1 % cream 00 times Medical daily. To Branch bumps mupirocin 2 2021-0 Yes [id number] Apply to [facility] % ointment 8-31 area(s) 3 ity of 00:00: (three) [place] 00 times Medical daily. To Branch open wounds triamcinolo 2-0 Yes [id number] Apply to [facility] ne 8-31 area(s) 2 ity of acetonide 00:00: (two) [place] 0.1 % cream 00 times Medical daily. To Branch bumps mupirocin 2 2021-0 Yes [id number] Apply to [facility] % ointment 8-31 area(s) 3 ity of 00:00: (three) [place] 00 times Medical daily. To Branch open wounds triamcinolo 2-0 Yes [id number] Apply to [facility] ne 8-31 area(s) 2 ity of acetonide 00:00: (two) [place] 0.1 % cream 00 times Medical daily. To Branch bumps mupirocin 2 2-0 Yes [id number] Apply to [facility] % ointment 8-31 area(s) 3 ity of 00:00: (three) [place] 00 times Medical daily. To Branch open wounds triamcinolo 2022-0 Yes [id number] Apply to [facility] ne 8-31 area(s) 2 ity of acetonide 00:00: (two) [place] 0.1 % cream 00 times Medical daily. To Branch bumps mupirocin 2 2-0 Yes [id number] Apply to [facility] % ointment 8-31 area(s) 3 ity of 00:00: (three) [place] 00 times Medical daily. To Branch open wounds triamcinolo 2-0 Yes [id number] Apply to [facility] ne 8-31 area(s) 2 ity of acetonide 00:00: (two) [place] 0.1 % cream 00 times Medical daily. To Branch bumps mupirocin 2 2-0 Yes [id number] Apply to [facility] % ointment 8-31 area(s) 3 ity of 00:00: (three) [place] 00 times Medical daily. To Branch open wounds triamcinolo 2-0 Yes [id number] Apply to [facility] ne 8-31 area(s) 2 ity of acetonide 00:00: (two) [place] 0.1 % cream 00 times Medical daily. To Branch bumps mupirocin 2 2-0 Yes [id number] Apply to [facility] % ointment 8-31 area(s) 3 ity of 00:00: (three) [place] 00 times Medical daily. To Branch open wounds triamcinolo 2-0 Yes [id number] Apply to [facility] ne 8-31 area(s) 2 ity of acetonide 00:00: (two) [place] 0.1 % cream 00 times Medical daily. To Branch bumps mupirocin 2 2-0 Yes [id number] Apply to [facility] % ointment 8-31 area(s) 3 ity of 00:00: (three) [place] 00 times Medical daily. To Branch open wounds triamcinolo 2-0 Yes [id number] Apply to [facility] ne 8-31 area(s) 2 ity of acetonide 00:00: (two) [place] 0.1 % cream 00 times Medical daily. To Branch bumps mupirocin 2 2-0 Yes [id number] Apply to [facility] % ointment 8-31 area(s) 3 ity of 00:00: (three) [place] 00 times Medical daily. To Branch open wounds triamcinolo 2-0 Yes [id number] Apply to [facility] ne 8-31 area(s) 2 ity of acetonide 00:00: (two) [place] 0.1 % cream 00 times Medical daily. To Branch bumps mupirocin 2 2-0 Yes [id number] Apply to [facility] % ointment 8-31 area(s) 3 ity of 00:00: (three) [place] 00 times Medical daily. To Branch open wounds triamcinolo 2-0 Yes [id number] Apply to [facility] ne 8-31 area(s) 2 ity of acetonide 00:00: (two) [place] 0.1 % cream 00 times Medical daily. To Branch bumps mupirocin 2 2021-0 Yes [id number] Apply to [facility] % ointment 8-31 area(s) 3 ity of 00:00: (three) [place] 00 times Medical daily. To Branch open wounds triamcinolo 2-0 Yes [id number] Apply to [facility] ne 8-31 area(s) 2 ity of acetonide 00:00: (two) [place] 0.1 % cream 00 times Medical daily. To Branch bumps mupirocin 2 2021-0 Yes [id number] Apply to [facility] % ointment 8-31 area(s) 3 ity of 00:00: (three) [place] 00 times Medical daily. To Branch open wounds triamcinolo 2-0 Yes [id number] Apply to [facility] ne 8-31 area(s) 2 ity of acetonide 00:00: (two) [place] 0.1 % cream 00 times Medical daily. To Branch bumps mupirocin 2 2-0 Yes [id number] Apply to [facility] % ointment 8-31 area(s) 3 ity of 00:00: (three) [place] 00 times Medical daily. To Branch open wounds triamcinolo 2-0 Yes [id number] Apply to [facility] ne 8-31 area(s) 2 ity of acetonide 00:00: (two) [place] 0.1 % cream 00 times Medical daily. To Branch bumps mupirocin 2 2-0 Yes [id number] Apply to [facility] % ointment 8-31 area(s) 3 ity of 00:00: (three) [place] 00 times Medical daily. To Branch open wounds triamcinolo 2-0 Yes [id number] Apply to [facility] ne 8-31 area(s) 2 ity of acetonide 00:00: (two) [place] 0.1 % cream 00 times Medical daily. To Branch bumps mupirocin 2 2021-0 Yes [id number] Apply to [facility] % ointment 8-31 area(s) 3 ity of 00:00: (three) [place] 00 times Medical daily. To Branch open wounds triamcinolo 2-0 Yes [id number] Apply to [facility] ne 8-31 area(s) 2 ity of acetonide 00:00: (two) [place] 0.1 % cream 00 times Medical daily. To Branch bumps mupirocin 2 2021-0 Yes [id number] Apply to [facility] % ointment 8-31 area(s) 3 ity of 00:00: (three) [place] 00 times Medical daily. To Branch open wounds triamcinolo 2021-0 Yes [id number] Apply to [facility] ne 8-31 area(s) 2 ity of acetonide 00:00: (two) [place] 0.1 % cream 00 times Medical daily. To Branch bumps mupirocin 2 2021-0 Yes [id number] Apply to [facility] % ointment 8-31 area(s) 3 ity of 00:00: (three) [place] 00 times Medical daily. To Branch open wounds triamcinolo 2-0 Yes [id number] Apply to [facility] ne 8-31 area(s) 2 ity of acetonide 00:00: (two) [place] 0.1 % cream 00 times Medical daily. To Branch bumps mupirocin 2 2-0 Yes [id number] Apply to [facility] % ointment 8-31 area(s) 3 ity of 00:00: (three) [place] 00 times Medical daily. To Branch open wounds triamcinolo 2-0 Yes [id number] Apply to [facility] ne 8-31 area(s) 2 ity of acetonide 00:00: (two) [place] 0.1 % cream 00 times Medical daily. To Branch bumps mupirocin 2 2-0 Yes [id number] Apply to [facility] % ointment 11-26 area(s) 3 ity of 00:00: (three) [place] 00 times Medical daily. To Branch open wounds triamcinolo Yes [id number] Apply to [facility] ne 11-26 area(s) 2 ity of acetonide 00:00: (two) [place] 0.1 % cream 00 times Medical daily. To Branch bumps mupirocin 2 Yes [id number] Apply to [facility] % ointment 11-26 area(s) 3 ity of 00:00: (three) [place] 00 times Medical daily. To Branch open wounds triamcinolo 2022- No [id number] Apply to [facility] ne 11-26 area(s) 2 ity of acetonide 00:00: 00:00 (two) [place] 0.1 % cream 00 :00 times Medical daily. To Branch bumps mupirocin 2 2022- No [id number] Apply to [facility] % ointment 11-26 area(s) 3 ity of 00:00: 00:00 (three) [place] 00 :00 times Medical daily. To Branch open wounds triamcinolo 2022- No [id number] Apply to [facility] ne 11-26 area(s) 2 ity of acetonide 00:00: 00:00 (two) [place] 0.1 % cream 00 :00 times Medical daily. To Branch bumps mupirocin 2 2022- No [id number] Apply to [facility] % ointment 11-26 area(s) 3 ity of 00:00: 00:00 (three) [place] 00 :00 times Medical daily. To Branch open wounds dextroamphe 2021- No [id number] 20mg Take 1 [facility] tamine-amph 11-26 tablet by it y of etamine 00:00: 00:00 mouth in [place] (ADDERALL) 00 :00 the Medical 20 mg morning Branch tablet and 1 tablet at noon and 1 tablet in the evening. amoxicillin Yes [id number] 1{tbl} Take 1 [facility] -clavulanat 8- tablet by ity of e 875-125 00:00: mouth [place] mg per 00 every 12 Medical tablet (twelve) Branch hours. amoxicillin 2022-0 Yes [id number] 1{tbl} Take 1 [facility] -clavulanat 8-30 tablet by ity of e 875-125 00:00: mouth [place] mg per 00 every 12 Medical tablet (twelve) Branch hours. amoxicillin 2022-0 Yes [id number] 1{tbl} Take 1 [facility] -clavulanat 8-30 tablet by ity of e 875-125 00:00: mouth [place] mg per 00 every 12 Medical tablet (twelve) Branch hours. amoxicillin 2022-0 Yes [id number] 1{tbl} Take 1 [facility] -clavulanat 8-30 tablet by ity of e 875-125 00:00: mouth [place] mg per 00 every 12 Medical tablet (twelve) Branch hours. amoxicillin 2022-0 Yes [id number] 1{tbl} Take 1 [facility] -clavulanat 8-30 tablet by ity of e 875-125 00:00: mouth [place] mg per 00 every 12 Medical tablet (twelve) Branch hours. amoxicillin 2021-0 Yes [id number] 1{tbl} Take 1 [facility] -clavulanat 8-30 tablet by ity of e 875-125 00:00: mouth [place] mg per 00 every 12 Medical tablet (twelve) Branch hours. amoxicillin 2022-0 Yes [id number] 1{tbl} Take 1 [facility] -clavulanat 8-30 tablet by ity of e 875-125 00:00: mouth [place] mg per 00 every 12 Medical tablet (twelve) Branch hours. amoxicillin 2022-0 Yes [id number] 1{tbl} Take 1 [facility] -clavulanat 8-30 tablet by ity of e 875-125 00:00: mouth [place] mg per 00 every 12 Medical tablet (twelve) Branch hours. amoxicillin 2022-0 Yes [id number] 1{tbl} Take 1 [facility] -clavulanat 8-30 tablet by ity of e 875-125 00:00: mouth [place] mg per 00 every 12 Medical tablet (twelve) Branch hours. amoxicillin 2022-0 Yes [id number] 1{tbl} Take 1 [facility] -clavulanat 8-30 tablet by ity of e 875-125 00:00: mouth [place] mg per 00 every 12 Medical tablet (twelve) Branch hours. amoxicillin 2022-0 Yes [id number] 1{tbl} Take 1 [facility] -clavulanat 8-30 tablet by ity of e 875-125 00:00: mouth [place] mg per 00 every 12 Medical tablet (twelve) Branch hours. amoxicillin 2021-0 Yes [id number] 1{tbl} Take 1 [facility] -clavulanat 8-30 tablet by ity of e 875-125 00:00: mouth [place] mg per 00 every 12 Medical tablet (twelve) Branch hours. amoxicillin 2021-0 Yes [id number] 1{tbl} Take 1 [facility] -clavulanat 8-30 tablet by ity of e 875-125 00:00: mouth [place] mg per 00 every 12 Medical tablet (twelve) Branch hours. amoxicillin 2021-0 Yes [id number] 1{tbl} Take 1 [facility] -clavulanat 8-30 tablet by ity of e 875-125 00:00: mouth [place] mg per 00 every 12 Medical tablet (twelve) Branch hours. amoxicillin 2021-0 Yes [id number] 1{tbl} Take 1 [facility] -clavulanat 8-30 tablet by ity of e 875-125 00:00: mouth [place] mg per 00 every 12 Medical tablet (twelve) Branch hours. amoxicillin 2021-0 Yes [id number] 1{tbl} Take 1 [facility] -clavulanat 8-30 tablet by ity of e 875-125 00:00: mouth [place] mg per 00 every 12 Medical tablet (twelve) Branch hours. amoxicillin 2021-0 Yes [id number] 1{tbl} Take 1 [facility] -clavulanat 8-30 tablet by ity of e 875-125 00:00: mouth [place] mg per 00 every 12 Medical tablet (twelve) Branch hours. amoxicillin 2021-0 Yes [id number] 1{tbl} Take 1 [facility] -clavulanat 8-30 tablet by ity of e 875-125 00:00: mouth [place] mg per 00 every 12 Medical tablet (twelve) Branch hours. amoxicillin 2021-0 202- No [id number] 1{tbl} Take 1 [facility] -clavulanat 8-30 11-01 tablet by it y of e 875-125 00:00: 00:00 mouth [place] mg per 00 :00 every 12 Medical tablet (twelve) Branch hours. amoxicillin 2021- No [id number] 1{tbl} Take 1 [facility] -clavulanat 8-30 11-01 tablet by it y of e 875-125 00:00: 00:00 mouth [place] mg per 00 :00 every 12 Medical tablet (twelve) Branch hours. permethrin Yes [id number] Apply to [facility] (ELIMITE) 5 8-23 skin and ity of % cream 00:00: leave on [place] 00 for 8 - 10 Medical hours then Branch repeat in a week permethrin 2021- No [id number] Apply to [facility] (ELIMITE) 5 8-23 09-08 skin and ity of % cream 00:00: 00:00 leave on [place] 00 :00 for 8 - 10 Medical hours then Branch repeat in a week permethrin 2021- No [id number] Apply to [facility] (ELIMITE) 5 8-23 09-08 skin and ity of % cream 00:00: 00:00 leave on [place] 00 :00 for 8 - 10 Medical hours then Branch repeat in a week TRAZODONE Yes [id number] TAKE 1 [facility] vers 50 mg 8-08 TABLET BY ity of tablet 00:00: MOUTH [place] 00 EVERYDAY Medical AT BEDTIME Branch TRAZODONE 2021-0 Yes [id number] TAKE 1 [facility] vers 50 mg 8-08 TABLET BY ity of tablet 00:00: MOUTH [place] 00 EVERYDAY Medical AT BEDTIME Branch TRAZODONE 2021-0 Yes [id number] TAKE 1 [facility] vers 50 mg 8-08 TABLET BY ity of tablet 00:00: MOUTH [place] 00 EVERYDAY Medical AT BEDTIME Branch TRAZODONE 2021-0 Yes [id number] TAKE 1 [facility] vers 50 mg 8-08 TABLET BY ity of tablet 00:00: MOUTH [place] 00 EVERYDAY Medical AT BEDTIME Branch TRAZODONE 2021-0 Yes [id number] TAKE 1 [facility] vers 50 mg 8-08 TABLET BY ity of tablet 00:00: MOUTH [place] 00 EVERYDAY Medical AT BEDTIME Branch TRAZODONE 2021-0 Yes [id number] TAKE 1 [facility] vers 50 mg 8-08 TABLET BY ity of tablet 00:00: MOUTH [place] 00 EVERYDAY Medical AT BEDTIME Branch TRAZODONE 2021-0 Yes [id number] TAKE 1 [facility] vers 50 mg 8-08 TABLET BY ity of tablet 00:00: MOUTH EVERYDAY Medical AT BEDTIME Branch TRAZODONE 2022-0 Yes [id number] TAKE 1 [facility] vers 50 mg 8-08 TABLET BY ity of tablet 00:00: MOUTH EVERYDAY Medical AT BEDTIME Branch TRAZODONE 2-0 Yes [id number] TAKE 1 [facility] vers 50 mg 8-08 TABLET BY ity of tablet 00:00: MOUTH EVERYDAY Medical AT BEDTIME Branch TRAZODONE 2021-0 Yes [id number] TAKE 1 [facility] vers 50 mg 8-08 TABLET BY ity of tablet 00:00: MOUTH EVERYDAY Medical AT BEDTIME Branch TRAZODONE 2021-0 Yes [id number] TAKE 1 [facility] vers 50 mg 8-08 TABLET BY ity of tablet 00:00: EVERYDAY Medical AT BEDTIME Branch TRAZODONE 2021-0 Yes [id number] TAKE 1 [facility] vers 50 mg 8-08 TABLET BY ity of tablet 00:00: EVERYDAY Medical AT BEDTIME Branch TRAZODONE 2021-0 Yes [id number] TAKE 1 [facility] vers 50 mg 8-08 TABLET BY ity of tablet 00:00: MOUTH EVERYDAY Medical AT BEDTIME Branch TRAZODONE 2021-0 Yes [id number] TAKE 1 [facility] vers 50 mg 8-08 TABLET BY ity of tablet 00:00: EVERYDAY Medical AT BEDTIME Branch TRAZODONE 2021-0 Yes [id number] TAKE 1 [facility] vers 50 mg 8-08 TABLET BY ity of tablet 00:00: EVERYDAY Medical AT BEDTIME Branch TRAZODONE 2-0 Yes [id number] TAKE 1 [facility] vers 50 mg 8-08 TABLET BY ity of tablet 00:00: MOUTH EVERYDAY Medical AT BEDTIME Branch TRAZODONE 2-0 Yes [id number] TAKE 1 [facility] vers 50 mg 8-08 TABLET BY ity of tablet 00:00: MOUTH EVERYDAY Medical AT BEDTIME Branch TRAZODONE 2-0 Yes [id number] TAKE 1 [facility] vers 50 mg 8-08 TABLET BY ity of tablet 00:00: MOUTH EVERYDAY Medical AT BEDTIME Branch TRAZODONE 2-0 Yes [id number] TAKE 1 [facility] vers 50 mg 8-08 TABLET BY ity of tablet 00:00: MOUTH EVERYDAY Medical AT BEDTIME Branch TRAZODONE 2022-0 Yes [id number] TAKE 1 [facility] vers 50 mg 8-08 TABLET BY ity of tablet 00:00: MOUTH EVERYDAY Medical AT BEDTIME Branch TRAZODONE 2021-0 Yes [id number] TAKE 1 [facility] vers 50 mg 8-08 TABLET BY ity of tablet 00:00: MOUTH EVERYDAY Medical AT BEDTIME Branch TRAZODONE 2021-0 Yes [id number] TAKE 1 [facility] vers 50 mg 8-08 TABLET BY ity of tablet 00:00: MOUTH EVERYDAY Medical AT BEDTIME Branch TRAZODONE 2021-0 Yes [id number] TAKE 1 [facility] vers 50 mg 8-08 TABLET BY ity of tablet 00:00: MOUTH EVERYDAY Medical AT BEDTIME Branch TRAZODONE 2021-0 Yes [id number] TAKE 1 [facility] vers 50 mg 8-08 TABLET BY ity of tablet 00:00: MOUTH EVERYDAY Medical AT BEDTIME Branch TRAZODONE 2021-0 Yes [id number] TAKE 1 [facility] vers 50 mg 8-08 TABLET BY ity of tablet 00:00: MOUTH EVERYDAY Medical AT BEDTIME Branch TRAZODONE 2021-0 Yes [id number] TAKE 1 [facility] vers 50 mg 8-08 TABLET BY ity of tablet 00:00: MOUTH EVERYDAY Medical AT BEDTIME Branch TRAZODONE 2021-0 Yes [id number] TAKE 1 [facility] vers 50 mg 8-08 TABLET BY ity of tablet 00:00: MOUTH EVERYDAY Medical AT BEDTIME Branch TRAZODONE 2021-0 Yes [id number] TAKE 1 [facility] vers 50 mg 8-08 TABLET BY ity of tablet 00:00: MOUTH EVERYDAY Medical AT BEDTIME Branch TRAZODONE 2-0 Yes [id number] TAKE 1 [facility] vers 50 mg 8-08 TABLET BY ity of tablet 00:00: MOUTH EVERYDAY Medical AT BEDTIME Branch TRAZODONE 2-0 Yes [id number] TAKE 1 [facility] vers 50 mg 8-08 TABLET BY ity of tablet 00:00: MOUTH 00 EVERYDAY Medical AT BEDTIME Branch TRAZODONE 2-0 Yes [id number] TAKE 1 [facility] vers 50 mg 8-08 TABLET BY ity of tablet 00:00: MOUTH EVERYDAY Medical AT BEDTIME Branch TRAZODONE 2021-0 Yes [id number] TAKE 1 [facility] vers 50 mg 8-08 TABLET BY ity of tablet 00:00: MOUTH EVERYDAY Medical AT BEDTIME Branch TRAZODONE 2022-0 Yes [id number] TAKE 1 [facility] vers 50 mg 8-08 TABLET BY ity of tablet 00:00: MOUTH EVERYDAY Medical AT BEDTIME Branch TRAZODONE 2-0 Yes [id number] TAKE 1 [facility] vers 50 mg 8-08 TABLET BY ity of tablet 00:00: MOUTH EVERYDAY Medical AT BEDTIME Branch TRAZODONE 2021-0 Yes [id number] TAKE 1 [facility] vers 50 mg 8-08 TABLET BY ity of tablet 00:00: MOUTH EVERYDAY Medical AT BEDTIME Branch TRAZODONE 2021-0 Yes [id number] TAKE 1 [facility] vers 50 mg 8-08 TABLET BY ity of tablet 00:00: EVERYDAY Medical AT BEDTIME Branch TRAZODONE 2021-0 Yes [id number] TAKE 1 [facility] vers 50 mg 8-08 TABLET BY ity of tablet 00:00: EVERYDAY Medical AT BEDTIME Branch TRAZODONE 2021-0 Yes [id number] TAKE 1 [facility] vers 50 mg 8-08 TABLET BY ity of tablet 00:00: MOUTH EVERYDAY Medical AT BEDTIME Branch TRAZODONE 2021-0 Yes [id number] TAKE 1 [facility] vers 50 mg 8-08 TABLET BY ity of tablet 00:00: EVERYDAY Medical AT BEDTIME Branch TRAZODONE 2021-0 Yes [id number] TAKE 1 [facility] vers 50 mg 8-08 TABLET BY ity of tablet 00:00: EVERYDAY Medical AT BEDTIME Branch TRAZODONE 2-0 Yes [id number] TAKE 1 [facility] vers 50 mg 8-08 TABLET BY ity of tablet 00:00: MOUTH EVERYDAY Medical AT BEDTIME Branch TRAZODONE 2-0 Yes [id number] TAKE 1 [facility] vers 50 mg 8-08 TABLET BY ity of tablet 00:00: MOUTH EVERYDAY Medical AT BEDTIME Branch TRAZODONE 2-0 Yes [id number] TAKE 1 [facility] vers 50 mg 8-08 TABLET BY ity of tablet 00:00: MOUTH EVERYDAY Medical AT BEDTIME Branch TRAZODONE 2-0 Yes [id number] TAKE 1 [facility] vers 50 mg 8-08 TABLET BY ity of tablet 00:00: MOUTH EVERYDAY Medical AT BEDTIME Branch TRAZODONE 2022-0 Yes [id number] TAKE 1 [facility] vers 50 mg 8-08 TABLET BY ity of tablet 00:00: MOUTH EVERYDAY Medical AT BEDTIME Branch TRAZODONE 2021-0 Yes [id number] TAKE 1 [facility] vers 50 mg 8-08 TABLET BY ity of tablet 00:00: MOUTH EVERYDAY Medical AT BEDTIME Branch TRAZODONE 2021-0 Yes [id number] TAKE 1 [facility] vers 50 mg 8-08 TABLET BY ity of tablet 00:00: MOUTH EVERYDAY Medical AT BEDTIME Branch TRAZODONE 2021-0 Yes [id number] TAKE 1 [facility] vers 50 mg 8-08 TABLET BY ity of tablet 00:00: MOUTH EVERYDAY Medical AT BEDTIME Branch TRAZODONE 2021-0 Yes [id number] TAKE 1 [facility] vers 50 mg 8-08 TABLET BY ity of tablet 00:00: MOUTH EVERYDAY Medical AT BEDTIME Branch TRAZODONE 2021-0 Yes [id number] TAKE 1 [facility] vers 50 mg 8-08 TABLET BY ity of tablet 00:00: MOUTH EVERYDAY Medical AT BEDTIME Branch TRAZODONE 2021-0 Yes [id number] TAKE 1 [facility] vers 50 mg 8-08 TABLET BY ity of tablet 00:00: MOUTH EVERYDAY Medical AT BEDTIME Branch TRAZODONE 2021-0 Yes [id number] TAKE 1 [facility] vers 50 mg 8-08 TABLET BY ity of tablet 00:00: MOUTH EVERYDAY Medical AT BEDTIME Branch TRAZODONE 2021-0 Yes [id number] TAKE 1 [facility] vers 50 mg 8-08 TABLET BY ity of tablet 00:00: MOUTH EVERYDAY Medical AT BEDTIME Branch TRAZODONE 2-0 Yes [id number] TAKE 1 [facility] vers 50 mg 8-08 TABLET BY ity of tablet 00:00: MOUTH EVERYDAY Medical AT BEDTIME Branch TRAZODONE 2-0 Yes [id number] TAKE 1 [facility] vers 50 mg 8-08 TABLET BY ity of tablet 00:00: MOUTH 00 EVERYDAY Medical AT BEDTIME Branch TRAZODONE 2-0 Yes [id number] TAKE 1 [facility] vers 50 mg 8-08 TABLET BY ity of tablet 00:00: MOUTH EVERYDAY Medical AT BEDTIME Branch TRAZODONE 2021-0 Yes [id number] TAKE 1 [facility] vers 50 mg 8-08 TABLET BY ity of tablet 00:00: MOUTH EVERYDAY Medical AT BEDTIME Branch TRAZODONE 2022-0 Yes [id number] TAKE 1 [facility] vers 50 mg 8-08 TABLET BY ity of tablet 00:00: MOUTH EVERYDAY Medical AT BEDTIME Branch TRAZODONE 2-0 Yes [id number] TAKE 1 [facility] vers 50 mg 8-08 TABLET BY ity of tablet 00:00: MOUTH EVERYDAY Medical AT BEDTIME Branch TRAZODONE 2021-0 Yes [id number] TAKE 1 [facility] vers 50 mg 8-08 TABLET BY ity of tablet 00:00: MOUTH EVERYDAY Medical AT BEDTIME Branch TRAZODONE 2021-0 Yes [id number] TAKE 1 [facility] vers 50 mg 8-08 TABLET BY ity of tablet 00:00: EVERYDAY Medical AT BEDTIME Branch TRAZODONE 2021-0 Yes [id number] TAKE 1 [facility] vers 50 mg 8-08 TABLET BY ity of tablet 00:00: EVERYDAY Medical AT BEDTIME Branch TRAZODONE 2021-0 Yes [id number] TAKE 1 [facility] vers 50 mg 8-08 TABLET BY ity of tablet 00:00: MOUTH EVERYDAY Medical AT BEDTIME Branch TRAZODONE 2021-0 Yes [id number] TAKE 1 [facility] vers 50 mg 8-08 TABLET BY ity of tablet 00:00: EVERYDAY Medical AT BEDTIME Branch TRAZODONE 2021-0 Yes [id number] TAKE 1 [facility] vers 50 mg 8-08 TABLET BY ity of tablet 00:00: EVERYDAY Medical AT BEDTIME Branch TRAZODONE 2-0 Yes [id number] TAKE 1 [facility] vers 50 mg 8-08 TABLET BY ity of tablet 00:00: MOUTH EVERYDAY Medical AT BEDTIME Branch TRAZODONE 2-0 Yes [id number] TAKE 1 [facility] vers 50 mg 8-08 TABLET BY ity of tablet 00:00: MOUTH EVERYDAY Medical AT BEDTIME Branch TRAZODONE 2-0 Yes [id number] TAKE 1 [facility] vers 50 mg 8-08 TABLET BY ity of tablet 00:00: MOUTH EVERYDAY Medical AT BEDTIME Branch TRAZODONE 2-0 Yes [id number] TAKE 1 [facility] vers 50 mg 8-08 TABLET BY ity of tablet 00:00: MOUTH EVERYDAY Medical AT BEDTIME Branch TRAZODONE 2022-0 Yes [id number] TAKE 1 [facility] vers 50 mg 8-08 TABLET BY ity of tablet 00:00: MOUTH EVERYDAY Medical AT BEDTIME Branch TRAZODONE 2021-0 Yes [id number] TAKE 1 [facility] vers 50 mg 8-08 TABLET BY ity of tablet 00:00: MOUTH EVERYDAY Medical AT BEDTIME Branch TRAZODONE 2021-0 Yes [id number] TAKE 1 [facility] vers 50 mg 8-08 TABLET BY ity of tablet 00:00: MOUTH EVERYDAY Medical AT BEDTIME Branch TRAZODONE 2021-0 Yes [id number] TAKE 1 [facility] vers 50 mg 8-08 TABLET BY ity of tablet 00:00: MOUTH EVERYDAY Medical AT BEDTIME Branch TRAZODONE 2021-0 Yes [id number] TAKE 1 [facility] vers 50 mg 8-08 TABLET BY ity of tablet 00:00: MOUTH EVERYDAY Medical AT BEDTIME Branch TRAZODONE 2021-0 Yes [id number] TAKE 1 [facility] vers 50 mg 8-08 TABLET BY ity of tablet 00:00: MOUTH EVERYDAY Medical AT BEDTIME Branch TRAZODONE 2021-0 Yes [id number] TAKE 1 [facility] vers 50 mg 8-08 TABLET BY ity of tablet 00:00: MOUTH EVERYDAY Medical AT BEDTIME Branch TRAZODONE 2021-0 Yes [id number] TAKE 1 [facility] vers 50 mg 8-08 TABLET BY ity of tablet 00:00: MOUTH EVERYDAY Medical AT BEDTIME Branch TRAZODONE 2021-0 Yes [id number] TAKE 1 [facility] vers 50 mg 8-08 TABLET BY ity of tablet 00:00: MOUTH EVERYDAY Medical AT BEDTIME Branch TRAZODONE 2-0 Yes [id number] TAKE 1 [facility] vers 50 mg 8-08 TABLET BY ity of tablet 00:00: MOUTH EVERYDAY Medical AT BEDTIME Branch TRAZODONE 2-0 Yes [id number] TAKE 1 [facility] vers 50 mg 8-08 TABLET BY ity of tablet 00:00: MOUTH 00 EVERYDAY Medical AT BEDTIME Branch TRAZODONE 2-0 Yes [id number] TAKE 1 [facility] vers 50 mg 8-08 TABLET BY ity of tablet 00:00: MOUTH EVERYDAY Medical AT BEDTIME Branch TRAZODONE 2021-0 Yes [id number] TAKE 1 [facility] vers 50 mg 8-08 TABLET BY ity of tablet 00:00: MOUTH EVERYDAY Medical AT BEDTIME Branch TRAZODONE 2022-0 Yes [id number] TAKE 1 [facility] vers 50 mg 8-08 TABLET BY ity of tablet 00:00: MOUTH EVERYDAY Medical AT BEDTIME Branch TRAZODONE 2-0 Yes [id number] TAKE 1 [facility] vers 50 mg 8-08 TABLET BY ity of tablet 00:00: MOUTH EVERYDAY Medical AT BEDTIME Branch TRAZODONE 2021-0 Yes [id number] TAKE 1 [facility] vers 50 mg 8-08 TABLET BY ity of tablet 00:00: MOUTH EVERYDAY Medical AT BEDTIME Branch TRAZODONE 2021-0 Yes [id number] TAKE 1 [facility] vers 50 mg 8-08 TABLET BY ity of tablet 00:00: EVERYDAY Medical AT BEDTIME Branch TRAZODONE 2021-0 Yes [id number] TAKE 1 [facility] vers 50 mg 8-08 TABLET BY ity of tablet 00:00: EVERYDAY Medical AT BEDTIME Branch TRAZODONE 2021-0 Yes [id number] TAKE 1 [facility] vers 50 mg 8-08 TABLET BY ity of tablet 00:00: MOUTH EVERYDAY Medical AT BEDTIME Branch TRAZODONE 2021-0 Yes [id number] TAKE 1 [facility] vers 50 mg 8-08 TABLET BY ity of tablet 00:00: EVERYDAY Medical AT BEDTIME Branch TRAZODONE 2021-0 Yes [id number] TAKE 1 [facility] vers 50 mg 8-08 TABLET BY ity of tablet 00:00: EVERYDAY Medical AT BEDTIME Branch TRAZODONE 2-0 Yes [id number] TAKE 1 [facility] vers 50 mg 8-08 TABLET BY ity of tablet 00:00: MOUTH EVERYDAY Medical AT BEDTIME Branch TRAZODONE 2-0 Yes [id number] TAKE 1 [facility] vers 50 mg 8-08 TABLET BY ity of tablet 00:00: MOUTH EVERYDAY Medical AT BEDTIME Branch TRAZODONE 2-0 Yes [id number] TAKE 1 [facility] vers 50 mg 8-08 TABLET BY ity of tablet 00:00: MOUTH EVERYDAY Medical AT BEDTIME Branch TRAZODONE 2-0 Yes [id number] TAKE 1 [facility] vers 50 mg 8-08 TABLET BY ity of tablet 00:00: MOUTH EVERYDAY Medical AT BEDTIME Branch TRAZODONE 2022-0 Yes [id number] TAKE 1 [facility] vers 50 mg 8-08 TABLET BY ity of tablet 00:00: MOUTH EVERYDAY Medical AT BEDTIME Branch TRAZODONE 2021-0 Yes [id number] TAKE 1 [facility] vers 50 mg 8-08 TABLET BY ity of tablet 00:00: MOUTH EVERYDAY Medical AT BEDTIME Branch TRAZODONE 2021-0 Yes [id number] TAKE 1 [facility] vers 50 mg 8-08 TABLET BY ity of tablet 00:00: MOUTH EVERYDAY Medical AT BEDTIME Branch TRAZODONE 2021-0 Yes [id number] TAKE 1 [facility] vers 50 mg 8-08 TABLET BY ity of tablet 00:00: MOUTH EVERYDAY Medical AT BEDTIME Branch TRAZODONE 2021-0 Yes [id number] TAKE 1 [facility] vers 50 mg 8-08 TABLET BY ity of tablet 00:00: MOUTH EVERYDAY Medical AT BEDTIME Branch TRAZODONE 2021-0 Yes [id number] TAKE 1 [facility] vers 50 mg 8-08 TABLET BY ity of tablet 00:00: MOUTH EVERYDAY Medical AT BEDTIME Branch TRAZODONE 2021-0 Yes [id number] TAKE 1 [facility] vers 50 mg 8-08 TABLET BY ity of tablet 00:00: MOUTH EVERYDAY Medical AT BEDTIME Branch TRAZODONE 2021-0 Yes [id number] TAKE 1 [facility] vers 50 mg 8-08 TABLET BY ity of tablet 00:00: MOUTH EVERYDAY Medical AT BEDTIME Branch TRAZODONE 2021-0 Yes [id number] TAKE 1 [facility] vers 50 mg 8-08 TABLET BY ity of tablet 00:00: MOUTH EVERYDAY Medical AT BEDTIME Branch TRAZODONE 2-0 Yes [id number] TAKE 1 [facility] vers 50 mg 8-08 TABLET BY ity of tablet 00:00: MOUTH EVERYDAY Medical AT BEDTIME Branch TRAZODONE 2-0 Yes [id number] TAKE 1 [facility] vers 50 mg 8-08 TABLET BY ity of tablet 00:00: MOUTH 00 EVERYDAY Medical AT BEDTIME Branch TRAZODONE 2-0 Yes [id number] TAKE 1 [facility] vers 50 mg 8-08 TABLET BY ity of tablet 00:00: MOUTH EVERYDAY Medical AT BEDTIME Branch TRAZODONE 2021-0 Yes [id number] TAKE 1 [facility] vers 50 mg 8-08 TABLET BY ity of tablet 00:00: MOUTH EVERYDAY Medical AT BEDTIME Branch TRAZODONE 2022-0 Yes [id number] TAKE 1 [facility] vers 50 mg 8-08 TABLET BY ity of tablet 00:00: MOUTH EVERYDAY Medical AT BEDTIME Branch TRAZODONE 2-0 Yes [id number] TAKE 1 [facility] vers 50 mg 8-08 TABLET BY ity of tablet 00:00: MOUTH EVERYDAY Medical AT BEDTIME Branch TRAZODONE 2021-0 Yes [id number] TAKE 1 [facility] 50 mg 8-08 TABLET BY ity of tablet 00:00: MOUTH EVERYDAY Medical AT BEDTIME Branch TRAZODONE 2021-0 Yes [id number] TAKE 1 [facility] 50 mg 8-08 TABLET BY ity of tablet 00:00: EVERYDAY Medical AT BEDTIME Branch TRAZODONE 2021-0 Yes [id number] TAKE 1 [facility] 50 mg 8-08 TABLET BY ity of tablet 00:00: EVERYDAY Medical AT BEDTIME Branch TRAZODONE 2021-0 Yes [id number] TAKE 1 [facility] vers 50 mg 8-08 TABLET BY ity of tablet 00:00: MOUTH EVERYDAY Medical AT BEDTIME Branch TRAZODONE 2021-0 Yes [id number] TAKE 1 [facility] 50 mg 8-08 TABLET BY ity of tablet 00:00: EVERYDAY Medical AT BEDTIME Branch TRAZODONE 2021-0 Yes [id number] TAKE 1 [facility] 50 mg 8-08 TABLET BY ity of tablet 00:00: EVERYDAY Medical AT BEDTIME Branch TRAZODONE 2-0 Yes [id number] TAKE 1 [facility] 50 mg 8-08 TABLET BY ity of tablet 00:00: MOUTH EVERYDAY Medical AT BEDTIME Branch TRAZODONE 2-0 Yes [id number] TAKE 1 [facility] 50 mg 8-08 TABLET BY ity of tablet 00:00: MOUTH EVERYDAY Medical AT BEDTIME Branch TRAZODONE 2-0 Yes [id number] TAKE 1 [facility] 50 mg 8-08 TABLET BY ity of tablet 00:00: MOUTH EVERYDAY Medical AT BEDTIME Branch TRAZODONE 2-0 Yes [id number] TAKE 1 [facility] 50 mg 8-08 TABLET BY ity of tablet 00:00: MOUTH EVERYDAY Medical AT BEDTIME Branch TRAZODONE 2021-0 Yes [id number] TAKE 1 [facility] 50 mg 8-08 TABLET BY ity of tablet 00:00: MOUTH [place] 00 EVERYDAY Medical AT BEDTIME Branch TRAZODONE 2022-0 Yes [id number] TAKE 1 [facility] vers 50 mg 8-08 TABLET BY ity of tablet 00:00: MOUTH [place] 00 EVERYDAY Medical AT BEDTIME Branch TRAZODONE 2022-0 2023- No [id number] TAKE 1 [facility] [place] 50 mg 8-08 07-14 TABLET BY ity of tablet 00:00: 00:00 MOUTH [place] 00 :00 EVERYDAY Medical AT BEDTIME Branch TRAZODONE 2022-0 2023- No [id number] TAKE 1 [facility] [place] 50 mg 8-08 07-14 TABLET BY ity of tablet 00:00: 00:00 MOUTH [place] 00 :00 EVERYDAY Medical AT BEDTIME Branch clonazePAM 2022-0 Yes [id number] 1mg Take 1 [facility] 1 mg tablet 7-13 tablet by ity of 00:00: mouth in [place] the Medical morning Branch and 1 tablet at noon and 1 tablet in the evening. clonazePAM 2022-0 Yes [id number] 1mg Take 1 [facility] 1 mg tablet 7-13 tablet by ity of 00:00: mouth in [place] the Medical morning Branch and 1 tablet at noon and 1 tablet in the evening. clonazePAM 2022-0 Yes [id number] 1mg Take 1 [facility] 1 mg tablet 7-13 tablet by ity of 00:00: mouth in [place] [address] the Medical morning Branch and 1 tablet at noon and 1 tablet in the evening. clonazePAM 2022-0 Yes [id number] 1mg Take 1 [facility] 1 mg tablet 7-13 tablet by ity of 00:00: mouth in [place] the Medical morning Branch and 1 tablet at noon and 1 tablet in the evening. clonazePAM 2022-0 Yes [id number] 1mg Take 1 [facility] 1 mg tablet 7-13 tablet by ity of 00:00: mouth in [place] [address] the Medical morning Branch and 1 tablet at noon and 1 tablet in the evening. clonazePAM 2022-0 Yes [id number] 1mg Take 1 [facility] 1 mg tablet 7-13 tablet by ity of 00:00: mouth in [place] [address] the Medical morning Branch and 1 tablet at noon and 1 tablet in the evening. clonazePAM 2022-0 Yes [id number] 1mg Take 1 [facility] 1 mg tablet 7-13 tablet by ity of 00:00: mouth in [place] [address] the Medical morning Branch and 1 tablet at noon and 1 tablet in the evening. clonazePAM 2022-0 Yes [id number] 1mg Take 1 [facility] 1 mg tablet 7-13 tablet by ity of 00:00: mouth in [place] [address] the Medical morning Branch and 1 tablet at noon and 1 tablet in the evening. clonazePAM 2022-0 Yes [id number] 1mg Take 1 [facility] 1 mg tablet 7-13 tablet by ity of 00:00: mouth in [place] [address] the Medical morning Branch and 1 tablet at noon and 1 tablet in the evening. clonazePAM 2022-0 Yes [id number] 1mg Take 1 [facility] 1 mg tablet 7-13 tablet by ity of 00:00: mouth in [place] [address] the Medical morning [place] and 1 tablet at noon and 1 tablet in the evening. clonazePAM 2022-0 Yes [id number] 1mg Take 1 [facility] 1 mg tablet 7-13 tablet by ity of 00:00: mouth in [address] Medical morning [place] and 1 tablet at noon and 1 tablet in the evening. clonazePAM 2022-0 Yes [id number] 1mg Take 1 [facility] 1 mg tablet 7-13 tablet by ity of 00:00: mouth in [address] morning [place] and 1 tablet at noon and 1 tablet in the evening. clonazePAM 2022-0 Yes [id number] 1mg Take 1 [facility] 1 mg tablet 7-13 tablet by ity of 00:00: mouth in [place] [address] the Medical morning [place] and 1 tablet at noon and 1 tablet in the evening. clonazePAM 2022-0 Yes [id number] 1mg Take 1 [facility] 1 mg tablet 7-13 tablet by ity of 00:00: mouth in [place] [address] the Medical morning Branch and 1 tablet at noon and 1 tablet in the evening. clonazePAM 2022-0 Yes [id number] 1mg Take 1 [facility] 1 mg tablet 7-13 tablet by ity of 00:00: mouth in [place] [address] the Medical morning [place] and 1 tablet at noon and 1 tablet in the evening. clonazePAM 2022-0 Yes [id number] 1mg Take 1 [facility] 1 mg tablet 7-13 tablet by ity of 00:00: mouth in [place] 00 the Medical morning Branch and 1 tablet at noon and 1 tablet in the evening. clonazePAM 2021-0 Yes [id number] 1mg Take 1 [facility] 1 mg tablet 7-13 tablet by ity of 00:00: mouth in [place] 00 the Medical morning Branch and 1 tablet at noon and 1 tablet in the evening. clonazePAM 2021-0 Yes [id number] 1mg Take 1 [facility] 1 mg tablet 7-13 tablet by ity of 00:00: mouth in [place] 00 the Medical morning Branch and 1 tablet at noon and 1 tablet in the evening. clonazePAM 2021-0 2- No [id number] 1mg Take 1 [facility] 1 mg tablet 7-13 - tablet by it y of 00:00: 00:00 mouth in [place] 00 :00 the Medical morning Branch and 1 tablet at noon and 1 tablet in the evening. clonazePAM 2021-0 2021- No [id number] 1mg Take 1 [facility] 1 mg tablet 7-01-27 tablet by it y of 00:00: 00:00 mouth in [place] 00 :00 the Medical morning Branch and 1 tablet at noon and 1 tablet in the evening. ZONISAMIDE 2021-0 Yes [id number] TAKE 1 [facility] 100 mg 7-12 CAPSULE BY ity of capsule 00:00: MOUTH [place] 00 TWICE A Medical DAY Branch ZONISAMIDE 2-0 Yes [id number] TAKE 1 [facility] 100 mg 7-12 CAPSULE BY ity of capsule 00:00: MOUTH [place] 00 TWICE A Medical DAY Branch ZONISAMIDE 2-0 Yes [id number] TAKE 1 [facility] 100 mg 7-12 CAPSULE BY ity of capsule 00:00: MOUTH [place] 00 TWICE A Medical DAY Branch ZONISAMIDE 2-0 Yes [id number] TAKE 1 [facility] 100 mg 7-12 CAPSULE BY ity of capsule 00:00: MOUTH [place] 00 TWICE A Medical DAY Branch ZONISAMIDE 2022-0 Yes [id number] TAKE 1 [facility] 100 mg 7-12 CAPSULE BY ity of capsule 00:00: MOUTH [place] 00 TWICE A Medical DAY Branch ZONISAMIDE 2022-0 Yes [id number] TAKE 1 [facility] 100 mg 7-12 CAPSULE BY ity of capsule 00:00: MOUTH [place] 00 TWICE A Medical DAY Branch ZONISAMIDE 2022-0 Yes [id number] TAKE 1 [facility] 100 mg 7-12 CAPSULE BY ity of capsule 00:00: MOUTH TWICE A Medical DAY Branch ZONISAMIDE 2-0 Yes [id number] TAKE 1 [facility] 100 mg 7-12 CAPSULE BY ity of capsule 00:00: MOUTH TWICE A Medical DAY Branch ZONISAMIDE 2021-0 Yes [id number] TAKE 1 [facility] 100 mg 7-12 CAPSULE BY ity of capsule 00:00: MOUTH TWICE A Medical DAY Branch ZONISAMIDE 2021-0 Yes [id number] TAKE 1 [facility] 100 mg 7-12 CAPSULE BY ity of capsule 00:00: MOUTH TWICE A Medical DAY Branch ZONISAMIDE 2021-0 Yes [id number] TAKE 1 [facility] 100 mg 7-12 CAPSULE BY ity of capsule 00:00: MOUTH TWICE A Medical DAY Branch ZONISAMIDE 2021-0 Yes [id number] TAKE 1 [facility] 100 mg 7-12 CAPSULE BY ity of capsule 00:00: MOUTH TWICE A Medical DAY Branch ZONISAMIDE 2021-0 Yes [id number] TAKE 1 [facility] 100 mg 7-12 CAPSULE BY ity of capsule 00:00: MOUTH TWICE A Medical DAY Branch ZONISAMIDE 2021-0 Yes [id number] TAKE 1 [facility] 100 mg 7-12 CAPSULE BY ity of capsule 00:00: MOUTH TWICE A Medical DAY Branch ZONISAMIDE 2021-0 Yes [id number] TAKE 1 [facility] 100 mg 7-12 CAPSULE BY ity of capsule 00:00: MOUTH TWICE A Medical DAY Branch ZONISAMIDE 2021-0 Yes [id number] TAKE 1 [facility] 100 mg 7-12 CAPSULE BY ity of capsule 00:00: MOUTH TWICE A Medical DAY Branch ZONISAMIDE 2-0 Yes [id number] TAKE 1 [facility] 100 mg 7-12 CAPSULE BY ity of capsule 00:00: MOUTH TWICE A Medical DAY Branch ZONISAMIDE 2-0 Yes [id number] TAKE 1 [facility] 100 mg 7-12 CAPSULE BY ity of capsule 00:00: MOUTH TWICE A Medical DAY Branch ZONISAMIDE 2021-0 Yes [id number] TAKE 1 [facility] 100 mg 7-12 CAPSULE BY ity of capsule 00:00: MOUTH TWICE A Medical DAY Branch ZONISAMIDE 2021-0 Yes [id number] TAKE 1 [facility] 100 mg 7-12 CAPSULE BY ity of capsule 00:00: MOUTH [place] 00 TWICE A Medical DAY Branch ZONISAMIDE 2021-0 Yes [id number] TAKE 1 [facility] 100 mg 7-12 CAPSULE BY ity of capsule 00:00: MOUTH [place] 00 TWICE A Medical DAY Branch ZONISAMIDE 2021-0 Yes [id number] TAKE 1 [facility] 100 mg 7-12 CAPSULE BY ity of capsule 00:00: MOUTH [place] TWICE A Medical DAY Branch ZONISAMIDE 2021-0 Yes [id number] TAKE 1 [facility] 100 mg 7-12 CAPSULE BY ity of capsule 00:00: MOUTH [place] 00 TWICE A Medical DAY Branch ZONISAMIDE 2021-0 Yes [id number] TAKE 1 [facility] 100 mg 7-12 CAPSULE BY ity of capsule 00:00: MOUTH [place] TWICE A Medical DAY Branch ZONISAMIDE 2021-0 Yes [id number] TAKE 1 [facility] 100 mg 7-12 CAPSULE BY ity of capsule 00:00: MOUTH TWICE A Medical DAY Branch ZONISAMIDE 2021-0 Yes [id number] TAKE 1 [facility] 100 mg 7-12 CAPSULE BY ity of capsule 00:00: MOUTH [place] 00 TWICE A Medical DAY Branch ZONISAMIDE 2021-0 Yes [id number] TAKE 1 [facility] 100 mg 7-12 CAPSULE BY ity of capsule 00:00: MOUTH [place] 00 TWICE A Medical DAY Branch ZONISAMIDE 2021-0 Yes [id number] TAKE 1 [facility] 100 mg 7-12 CAPSULE BY ity of capsule 00:00: MOUTH 00 TWICE A Medical DAY Branch ZONISAMIDE 2021-0 Yes [id number] TAKE 1 [facility] 100 mg 7-12 CAPSULE BY ity of capsule 00:00: MOUTH [place] 00 TWICE A Medical DAY Branch ZONISAMIDE 2021-0 Yes [id number] TAKE 1 [facility] 100 mg 7-12 CAPSULE BY ity of capsule 00:00: MOUTH [place] 00 TWICE A Medical DAY Branch ZONISAMIDE 2021-0 Yes [id number] TAKE 1 [facility] 100 mg 7-12 CAPSULE BY ity of capsule 00:00: MOUTH [place] 00 TWICE A Medical DAY Branch ZONISAMIDE 2-0 2022- No [id number] TAKE 1 [facility] 100 mg 7-12 12-27 CAPSULE BY ity of capsule 00:00: 00:00 MOUTH [place] 00 :00 TWICE A Medical DAY Branch SYNTHROID 2022-0 Yes [id number] TAKE 1 U nivers 150 mcg 7-08 TABLET BY ity of tablet 00:00: MOUTH [place] 00 EVERY DAY Medical IN THE [facility] SYNTHROID Yes [id number] TAKE 1 U nivers 150 mcg 7-08 TABLET BY ity of tablet 00:00: MOUTH [place] 00 EVERY DAY Medical IN THE [facility] SYNTHROID Yes [id number] TAKE 1 U nivers 150 mcg 7-08 TABLET BY ity of tablet 00:00: MOUTH [place] 00 EVERY DAY Medical IN THE [facility] SYNTHROID Yes [id number] TAKE 1 U nivers 150 mcg 7-08 TABLET BY ity of tablet 00:00: MOUTH [place] 00 EVERY DAY Medical IN THE [facility] SYNTHROID Yes [id number] TAKE 1 U nivers 150 mcg 7-08 TABLET BY ity of tablet 00:00: MOUTH [place] 00 EVERY DAY Medical IN THE [facility] SYNTHROID Yes [id number] TAKE 1 U nivers 150 mcg 7-08 TABLET BY ity of tablet 00:00: MOUTH [place] 00 EVERY DAY Medical IN THE [facility] SYNTHROID Yes [id number] TAKE 1 U nivers 150 mcg 7-08 TABLET BY ity of tablet 00:00: MOUTH [place] 00 EVERY DAY Medical IN THE [facility] SYNTHROID Yes [id number] TAKE 1 U nivers 150 mcg 7-08 TABLET BY ity of tablet 00:00: MOUTH [place] 00 EVERY DAY Medical IN THE [facility] SYNTHROID Yes [id number] TAKE 1 U nivers 150 mcg 7-08 TABLET BY ity of tablet 00:00: MOUTH [place] 00 EVERY DAY Medical IN THE [facility] SYNTHROID 0 Yes [id number] TAKE 1 U nivers 150 mcg 7-08 TABLET BY ity of tablet 00:00: MOUTH [place] 00 EVERY DAY Medical IN THE [facility] SYNTHROID 0 Yes [id number] TAKE 1 U nivers 150 mcg 7-08 TABLET BY ity of tablet 00:00: MOUTH [place] 00 EVERY DAY Medical IN THE [facility] SYNTHROID 0 Yes [id number] TAKE 1 U nivers 150 mcg 7-08 TABLET BY ity of tablet 00:00: MOUTH [place] 00 EVERY DAY Medical IN THE [facility] SYNTHROID Yes [id number] TAKE 1 U nivers 150 mcg 7-08 TABLET BY ity of tablet 00:00: MOUTH [place] 00 EVERY DAY Medical IN THE [place] MORNING SYNTHROID 0 Yes [id number] TAKE 1 U nivers 150 mcg 7-08 TABLET BY ity of tablet 00:00: MOUTH [place] 00 EVERY DAY Medical IN THE [facility] SYNTHROID 0 Yes [id number] TAKE 1 U nivers 150 mcg 7-08 TABLET BY ity of tablet 00:00: MOUTH [place] 00 EVERY DAY Medical IN THE [facility] SYNTHROID Yes [id number] TAKE 1 U nivers 150 mcg 7-08 TABLET BY ity of tablet 00:00: MOUTH [place] 00 EVERY DAY Medical IN THE [facility] SYNTHROID Yes [id number] TAKE 1 U nivers 150 mcg 7-08 TABLET BY ity of tablet 00:00: MOUTH [place] 00 EVERY DAY Medical IN THE [facility] SYNTHROID Yes [id number] TAKE 1 U nivers 150 mcg 7-08 TABLET BY ity of tablet 00:00: MOUTH [place] 00 EVERY DAY Medical IN THE [facility] SYNTHROID Yes [id number] TAKE 1 U nivers 150 mcg 7-08 TABLET BY ity of tablet 00:00: MOUTH [place] 00 EVERY DAY Medical IN THE [facility] SYNTHROID Yes [id number] TAKE 1 U nivers 150 mcg 7-08 TABLET BY ity of tablet 00:00: MOUTH [place] 00 EVERY DAY Medical IN THE [facility] SYNTHROID Yes [id number] TAKE 1 U nivers 150 mcg 7-08 TABLET BY ity of tablet 00:00: MOUTH [place] 00 EVERY DAY Medical IN THE [facility] SYNTHROID 0 Yes [id number] TAKE 1 U nivers 150 mcg 7-08 TABLET BY ity of tablet 00:00: MOUTH [place] 00 EVERY DAY Medical IN THE [facility] SYNTHROID 0 Yes [id number] TAKE 1 U nivers 150 mcg 7-08 TABLET BY ity of tablet 00:00: MOUTH [place] 00 EVERY DAY Medical IN THE [facility] SYNTHROID 0 Yes [id number] TAKE 1 U nivers 150 mcg 7-08 TABLET BY ity of tablet 00:00: MOUTH [place] 00 EVERY DAY Medical IN THE [facility] SYNTHROID Yes [id number] TAKE 1 U nivers 150 mcg 7-08 TABLET BY ity of tablet 00:00: MOUTH [place] 00 EVERY DAY Medical IN THE [facility] SYNTHROID Yes [id number] TAKE 1 U nivers 150 mcg 7-08 TABLET BY ity of tablet 00:00: MOUTH [place] 00 EVERY DAY Medical IN THE [facility] SYNTHROID 0 Yes [id number] TAKE 1 U nivers 150 mcg 7-08 TABLET BY ity of tablet 00:00: MOUTH [place] 00 EVERY DAY Medical IN THE [facility] SYNTHROID Yes [id number] TAKE 1 U nivers 150 mcg 7-08 TABLET BY ity of tablet 00:00: MOUTH [place] 00 EVERY DAY Medical IN THE [facility] SYNTHROID Yes [id number] TAKE 1 U nivers 150 mcg 7-08 TABLET BY ity of tablet 00:00: MOUTH [place] 00 EVERY DAY Medical IN THE [facility] SYNTHROID Yes [id number] TAKE 1 U nivers 150 mcg 7-08 TABLET BY ity of tablet 00:00: MOUTH [place] 00 EVERY DAY Medical IN THE [facility] SYNTHROID Yes [id number] TAKE 1 U nivers 150 mcg 7-08 TABLET BY ity of tablet 00:00: MOUTH [place] 00 EVERY DAY Medical IN THE [facility] SYNTHROID Yes [id number] TAKE 1 U nivers 150 mcg 7-08 TABLET BY ity of tablet 00:00: MOUTH [place] 00 EVERY DAY Medical IN THE [facility] SYNTHROID 0 3- No [id number] TAKE 1 [facility] 150 mcg 7-08 -02 TABLET BY ity of tablet 00:00: 00:00 MOUTH [place] 00 :00 EVERY DAY Medical IN THE [facility] SERTRALINE 0 Yes [id number] TAKE 1 [facility] 100 mg 6-17 TABLET BY ity of tablet 00:00: MOUTH [place] 00 EVERY DAY [facility] SERTRALINE 0 Yes [id number] TAKE 1 [facility] 100 mg 6-17 TABLET BY ity of tablet 00:00: MOUTH [place] 00 EVERY DAY Medical [place] SERTRALINE 2021-0 Yes [id number] TAKE 1 [facility] 100 mg 6-17 TABLET BY ity of tablet 00:00: MOUTH [place] 00 EVERY DAY [facility] SERTRALINE 2021-0 Yes [id number] TAKE 1 [facility] 100 mg 6-17 TABLET BY ity of tablet 00:00: MOUTH 00 EVERY DAY Medical Branch SERTRALINE 2-0 Yes [id number] TAKE 1 [facility] 100 mg 6-17 TABLET BY ity of tablet 00:00: MOUTH EVERY DAY Medical Branch SERTRALINE 2-0 Yes [id number] TAKE 1 [facility] 100 mg 6-17 TABLET BY ity of tablet 00:00: MOUTH EVERY DAY Medical Branch SERTRALINE 2-0 Yes [id number] TAKE 1 [facility] 100 mg 6-17 TABLET BY ity of tablet 00:00: MOUTH 00 EVERY DAY Medical Branch SERTRALINE 2-0 Yes [id number] TAKE 1 [facility] 100 mg 6-17 TABLET BY ity of tablet 00:00: MOUTH EVERY DAY Medical Branch SERTRALINE 2021-0 Yes [id number] TAKE 1 [facility] 100 mg 6-17 TABLET BY ity of tablet 00:00: MOUTH EVERY DAY Medical Branch SERTRALINE 2021-0 Yes [id number] TAKE 1 [facility] 100 mg 6-17 TABLET BY ity of tablet 00:00: MOUTH EVERY DAY Medical Branch SERTRALINE 2021-0 Yes [id number] TAKE 1 [facility] 100 mg 6-17 TABLET BY ity of tablet 00:00: MOUTH 00 EVERY DAY Medical Branch SERTRALINE 2021-0 Yes [id number] TAKE 1 [facility] 100 mg 6-17 TABLET BY ity of tablet 00:00: MOUTH EVERY DAY Medical Branch SERTRALINE 2-0 Yes [id number] TAKE 1 [facility] 100 mg 6-17 TABLET BY ity of tablet 00:00: MOUTH EVERY DAY Medical Branch SERTRALINE 2-0 Yes [id number] TAKE 1 [facility] 100 mg 6-17 TABLET BY ity of tablet 00:00: MOUTH EVERY DAY Medical Branch SERTRALINE 2-0 Yes [id number] TAKE 1 [facility] 100 mg 6-17 TABLET BY ity of tablet 00:00: MOUTH EVERY DAY Medical Branch SERTRALINE 2-0 Yes [id number] TAKE 1 [facility] 100 mg 6-17 TABLET BY ity of tablet 00:00: MOUTH 00 EVERY DAY Medical Branch SERTRALINE 2-0 Yes [id number] TAKE 1 [facility] 100 mg 6-17 TABLET BY ity of tablet 00:00: MOUTH 00 EVERY DAY Medical Branch SERTRALINE 2021-0 Yes [id number] TAKE 1 [facility] 100 mg 6-17 TABLET BY ity of tablet 00:00: MOUTH EVERY DAY Medical Branch SERTRALINE 2021-0 Yes [id number] TAKE 1 [facility] 100 mg 6-17 TABLET BY ity of tablet 00:00: MOUTH [place] EVERY DAY Medical Branch SERTRALINE 2021-0 Yes [id number] TAKE 1 [facility] 100 mg 6-17 TABLET BY ity of tablet 00:00: MOUTH [place] EVERY DAY Medical Branch SERTRALINE 2021-0 Yes [id number] TAKE 1 [facility] 100 mg 6-17 TABLET BY ity of tablet 00:00: MOUTH [place] DAY Medical Branch SERTRALINE 2021-0 Yes [id number] TAKE 1 [facility] 100 mg 6-17 TABLET BY ity of tablet 00:00: MOUTH [place] DAY Medical Branch SERTRALINE 2021-0 2021- No [id number] TAKE 1 [facility] 100 mg 6-17 12-13 TABLET BY ity of tablet 00:00: 00:00 MOUTH [place] 00 :00 DAY Medical Branch acetaminoph Yes Take by Uni vers en (TYLENOL 2-10 mouth. ity of ORAL) 15:18: [address] acetaminoph Yes Take by Uni vers en (TYLENOL 2-10 mouth. ity of ORAL) 15:18: [address] acetaminoph Yes Take by [facility] vers en (TYLENOL 2-10 mouth. ity of ORAL) 15:18: [address] acetaminoph Yes Take by [facility] vers en (TYLENOL 2-10 mouth. ity of ORAL) 15:18: [address] Branch acetaminoph Yes Take by [facility] vers en (TYLENOL 2-10 mouth. ity of ORAL) 15:18: [address] Branch acetaminoph Yes Take by [facility] vers en (TYLENOL 2-10 mouth. ity of ORAL) 15:18: [address] acetaminoph Yes Take by [facility] vers en (TYLENOL 2-10 mouth. ity of ORAL) 15:18: [address] acetaminoph Yes Take by [facility] vers en (TYLENOL 2-10 mouth. ity of ORAL) 15:18: [place] 47 Medical Branch acetaminoph Yes Take by [facility] vers en (TYLENOL 2-10 mouth. ity of ORAL) 15:18: [place] [address] Medical Branch acetaminoph 0 Yes Take by [facility] vers en (TYLENOL 2-10 mouth. ity of ORAL) 15:18: [address] Branch acetaminoph 0 Yes Take by [facility] vers en (TYLENOL 2-10 mouth. ity of ORAL) 15:18: [place] [address] Medical Branch acetaminoph Yes Take by [facility] vers en (TYLENOL 2-10 mouth. ity of ORAL) 15:18: [place] [address] Medical Branch acetaminoph 0 Yes Take by [facility] vers en (TYLENOL 2-10 mouth. ity of ORAL) 15:18: [place] [address] Medical Branch acetaminoph Yes Take by [facility] vers en (TYLENOL 2-10 mouth. ity of ORAL) 15:18: [place] [address] Medical Branch acetaminoph Yes Take by [facility] vers en (TYLENOL 2-10 mouth. ity of ORAL) 15:18: [address] Branch acetaminoph Yes Take by [facility] vers en (TYLENOL 2-10 mouth. ity of ORAL) 15:18: [address] Branch acetaminoph Yes Take by [facility] vers en (TYLENOL 2-10 mouth. ity of ORAL) 15:18: [address] Branch acetaminoph Yes Take by [facility] vers en (TYLENOL 2-10 mouth. ity of ORAL) 15:18: [address] acetaminoph Yes Take by [facility] vers en (TYLENOL 2-10 mouth. ity of ORAL) 15:18: [address] Branch acetaminoph Yes Take by [facility] vers en (TYLENOL 2-10 mouth. ity of ORAL) 15:18: [place] [address] Medical Branch acetaminoph Yes Take by [facility] vers en (TYLENOL 2-10 mouth. ity of ORAL) 15:18: [address] Branch acetaminoph Yes Take by [facility] vers en (TYLENOL 2-10 mouth. ity of ORAL) 15:18: [address] Branch acetaminoph Yes Take by [facility] vers en (TYLENOL 2-10 mouth. ity of ORAL) 15:18: [address] acetaminoph 0 Yes Take by [facility] vers en (TYLENOL 2-10 mouth. ity of ORAL) 15:18: [address] acetaminoph 0 Yes Take by [facility] vers en (TYLENOL 2-10 mouth. ity of ORAL) 15:18: [address] acetaminoph 0 Yes Take by [facility] vers en (TYLENOL 2-10 mouth. ity of ORAL) 15:18: [address] acetaminoph 0 Yes Take by [facility] vers en (TYLENOL 2-10 mouth. ity of ORAL) 15:18: [address] acetaminoph 0 Yes Take by [facility] vers en (TYLENOL 2-10 mouth. ity of ORAL) 15:18: [address] acetaminoph Yes Take by [facility] vers en (TYLENOL 2-10 mouth. ity of ORAL) 15:18: [address] acetaminoph Yes Take by [facility] vers en (TYLENOL 2-10 mouth. ity of ORAL) 15:18: [address] acetaminoph Yes Take by [facility] vers en (TYLENOL 2-10 mouth. ity of ORAL) 15:18: [address] acetaminoph Yes Take by [facility] vers en (TYLENOL 2-10 mouth. ity of ORAL) 15:18: [address] acetaminoph Yes Take by [facility] vers en (TYLENOL 2-10 mouth. ity of ORAL) 15:18: [address] acetaminoph Yes Take by [facility] vers en (TYLENOL 2-10 mouth. ity of ORAL) 15:18: [address] acetaminoph Yes Take by [facility] vers en (TYLENOL 2-10 mouth. ity of ORAL) 15:18: [address] acetaminoph 0 Yes Take by Uni vers en (TYLENOL 2-10 mouth. ity of ORAL) 15:18: [address] acetaminoph 0 Yes Take by Uni vers en (TYLENOL 2-10 mouth. ity of ORAL) 15:18: [address] acetaminoph 0 Yes Take by Uni vers en (TYLENOL 2-10 mouth. ity of ORAL) 15:18: [address] acetaminoph 0 Yes Take by Uni vers en (TYLENOL 2-10 mouth. ity of ORAL) 15:18: [address] acetaminoph 0 Yes Take by Uni vers en (TYLENOL 2-10 mouth. ity of ORAL) 15:18: [address] acetaminoph 0 Yes Take by Uni vers en (TYLENOL 2-10 mouth. ity of ORAL) 15:18: [address] Branch acetaminoph 0 Yes Take by Uni vers en (TYLENOL 2-10 mouth. ity of ORAL) 15:18: [address] acetaminoph 0 Yes Take by Uni vers en (TYLENOL 2-10 mouth. ity of ORAL) 15:18: [address] acetaminoph Yes Take by Uni vers en (TYLENOL 2-10 mouth. ity of ORAL) 15:18: [address] acetaminoph Yes Take by [facility] vers en (TYLENOL 2-10 mouth. ity of ORAL) 15:18: [address] acetaminoph Yes Take by [facility] vers en (TYLENOL 2-10 mouth. ity of ORAL) 15:18: [address] acetaminoph Yes Take by [facility] vers en (TYLENOL 2-10 mouth. ity of ORAL) 15:18: [address] acetaminoph Yes Take by [facility] vers en (TYLENOL 2-10 mouth. ity of ORAL) 15:18: [address] acetaminoph 0 Yes Take by [facility] vers en (TYLENOL 2-10 mouth. ity of ORAL) 15:18: [address] acetaminoph 0 Yes Take by [facility] vers en (TYLENOL 2-10 mouth. ity of ORAL) 15:18: [address] acetaminoph 0 Yes Take by Uni vers en (TYLENOL 2-10 mouth. ity of ORAL) 15:18: [address] acetaminoph 0 Yes Take by Uni vers en (TYLENOL 2-10 mouth. ity of ORAL) 15:18: [address] acetaminoph 0 Yes Take by Uni vers en (TYLENOL 2-10 mouth. ity of ORAL) 15:18: [address] acetaminoph 0 Yes Take by Uni vers en (TYLENOL 2-10 mouth. ity of ORAL) 15:18: [address] acetaminoph 0 Yes Take by [facility] vers en (TYLENOL 2-10 mouth. ity of ORAL) 15:18: [address] acetaminoph 0 Yes Take by [facility] vers en (TYLENOL 2-10 mouth. ity of ORAL) 15:18: [address] acetaminoph 0 Yes Take by Uni vers en (TYLENOL 2-10 mouth. ity of ORAL) 15:18: [address] acetaminoph 0 Yes Take by [facility] vers en (TYLENOL 2-10 mouth. ity of ORAL) 15:18: [address] acetaminoph Yes Take by Uni vers en (TYLENOL 2-10 mouth. ity of ORAL) 15:18: [address] acetaminoph Yes Take by Uni vers en (TYLENOL 2-10 mouth. ity of ORAL) 15:18: [address] acetaminoph Yes Take by [facility] (TYLENOL 2-10 mouth. ity of ORAL) 15:18: [address] acetaminoph Yes Take by [facility] (TYLENOL 2-10 mouth. ity of ORAL) 15:18: [address] acetaminoph Yes Take by [facility] (TYLENOL 2-10 mouth. ity of ORAL) 15:18: [address] acetaminoph Yes Take by [facility] (TYLENOL 2-10 mouth. ity of ORAL) 15:18: [address] acetaminoph Yes Take by [facility] (TYLENOL 2-10 mouth. ity of ORAL) 15:18: [address] acetaminoph 0 Yes Take by [facility] vers [facility] (TYLENOL 2-10 mouth. ity of ORAL) 15:18: [address] acetaminoph 0 Yes Take by [facility] vers [facility] (TYLENOL 2-10 mouth. ity of ORAL) 15:18: [address] acetaminoph Yes Take by [facility] (TYLENOL 2-10 mouth. ity of ORAL) 15:18: [address] acetaminoph Yes Take by [facility] (TYLENOL 2-10 mouth. ity of ORAL) 15:18: [address] acetaminoph Yes Take by [facility] (TYLENOL 2-10 mouth. ity of ORAL) 15:18: [address] acetaminoph Yes Take by [facility] vers [facility] (TYLENOL 2-10 mouth. ity of ORAL) 15:18: [address] acetaminoph Yes Take by [facility] (TYLENOL 2-10 mouth. ity of ORAL) 15:18: [address] acetaminoph Yes Take by [facility] (TYLENOL 2-10 mouth. ity of ORAL) 15:18: [address] acetaminoph Yes Take by [facility] (TYLENOL 2-10 mouth. ity of ORAL) 15:18: [address] acetaminoph Yes Take by [facility] (TYLENOL 2-10 mouth. ity of ORAL) 15:18: [address] acetaminoph Yes Take by [facility] (TYLENOL 2-10 mouth. ity of ORAL) 15:18: [address] acetaminoph Yes Take by [facility] (TYLENOL 2-10 mouth. ity of ORAL) 15:18: [address] acetaminoph Yes Take by [facility] (TYLENOL 2-10 mouth. ity of ORAL) 15:18: [address] acetaminoph Yes Take by [facility] (TYLENOL 2-10 mouth. ity of ORAL) 15:18: [address] acetaminoph Yes Take by [facility] (TYLENOL 2-10 mouth. ity of ORAL) 15:18: [address] acetaminoph Yes Take by [facility] (TYLENOL 2-10 mouth. ity of ORAL) 15:18: [address] acetaminoph Yes Take by [facility] vers [facility] (TYLENOL 2-10 mouth. ity of ORAL) 15:18: [address] [facility] (TYLENOL 2-10 mouth. ity of ORAL) 15:18: [address] [facility] Take by [facility] (TYLENOL 2-10 mouth. ity of ORAL) 15:18: [address] [facility] Take by [facility] (TYLENOL 2-10 mouth. ity of ORAL) 15:18: [address] [facility] Take by [facility] (TYLENOL 2-10 mouth. ity of ORAL) 15:18: [address] [facility] Take by [facility] (TYLENOL 2-10 mouth. ity of ORAL) 15:18: [address] Yes Take by Uni vers en (TYLENOL 2-10 mouth. ity of ORAL) 15:18: [address] Yes Take by Uni vers en (TYLENOL 2-10 mouth. ity of ORAL) 15:18: [address] proMETHazin 2020-03 Yes Insert 1 Un [...] y rectally [place] 00 at Medical bedtime, [place] do not use within 6 hours of taking reglan. proMETHazin 2020-03- No Insert 1 U nivers e 25 mg 2-03 05-09 suppositor ity o f suppository 00:00: 00:00 y rectally [place] 00 :00 at Medical bedtime, [place] do not use within 6 hours of taking reglan. proMETHazin 2020-03- No Insert 1 U nivers e 25 mg 2-03 05-09 suppositor ity o f suppository 00:00: 00:00 y rectally [place] 00 :00 at Medical bedtime, [place] do not use within 6 hours of taking reglan. ibuprofen 2019- No [id number] 800mg Take 1 [facility] 800 mg 10-25- tablet by ity of tablet 00:00: 04:59 mouth [place] 00 :00 every 6 Medical (six) Branch hours as needed for Pain (scale 4-6) for up to 21 days. sulfamethox 2020- No [id number] 1{tbl} Take 1 [facility] azole-trime 10-23 tablet by it y of thoprim 00:00: 00:00 mouth 2 [place] (BACTRIM 00 :00 (two) Medical DS) 800-160 times Branch mg per daily for tablet 10 days. SERTraline 2020- No [id number] 50mg Take 1 [facility] 50 mg 09-26- tablet by ity of tablet 00:00: 00:00 mouth [place] 00 :00 daily. Medical Branch dextroamphe 2019- No [id number] 20mg Take 1 Univers tamine-amph 6-20 10-30 tablet by it y of etamine 00:00: 00:00 mouth 3 [place] (ADDERALL) 00 :00 (three) Medica l 20 mg times Branch tablet daily. dextroamphe 2019- No [id number] Take 1 tab Univers tamine-amph 08-19 10-30 in morning i ty of etamine 10 00:00: 00:00 x 3 days [place] mg tablet 00 :00 then Medical increase Branch to 1 tab twice daily x 7 days then , if needed take 2 tabs twice daily (otherwise continue 1 tab twice daily), further refills from psychiatry clonazePAM 2019- No [id number] .5mg Take 1 Univers (KLONOPIN) 08-12 tablet by ity of 0.5 mg 00:00: 00:00 mouth [place] tablet 00 :00 every 8 Medical (eight) Branch hours as needed (Anxiety). PANTOPRAZOL 2019- No [id number] TAKE 1 Univers E 40 mg EC 07-23 TABLET BY ity of tablet 00:00: 00:00 MOUTH [place] 00 :00 EVERY DAY Medical Branch [id number] No 1{dose} Take 1 U nivers carb,glu-FA 06-12 Dose by ity of -dss-dha 00:00: 00:00 mouth [place] (CITRANATAL 00 :00 daily. Medica l ASSURE) 35 Branch mg iron-1 mg -50 mg-300 mg combo pack diazePAM 5 No Take one Un [place] mg tablet 06-08 10-30 5mg tablet ity of 00:00: 00:00 30 minutes [place] 00 :00 prior to Medical MRI study, Branch and may repeat one 5mg tablet as needed. levothyroxi 2019- No [id number] 112ug Take 1 Univers ne 06-04 12-15 tablet by ity of (SYNTHROID) 00:00: 00:00 mouth [place] 112 mcg 00 :00 every Medical tablet morning. Branch atorvastati 2019- No [id number] 40mg Take 1 Univers n 40 mg 04-26-19 tablet by ity of tablet 00:00: 00:00 mouth at [place] 00 :00 bedtime. Medical Branch traMADol 2019- No [id number] 50mg Take 1 U nivers (ULTRAM) 50 04-24 tablet by it y of mg tablet 00:00: 00:00 mouth [place] 00 :00 every 6 Medical (six) Branch hours as needed for Pain (scale 4-6) or Pain (scale 7-10). zonisamide 2019- No [id number] 100mg Take 1 Univers 100 mg 1-24 08-10 capsule by ity of capsule 00:00: 00:00 mouth 2 [place] 00 :00 (two) Medical times Branch daily. butalbital- 2019- No [id number] 1{tbl} Take 1 [facility] acetaminoph 1-10 10-30 tablet by it y of en-caff 00:00: 00:00 mouth [place] 50-325-40 00 :00 every 6 Medical mg tablet (six) Branch hours as needed (Migraine Headaches) . clonazePAM 2019- No [id number] .5mg Take 1 Univers 0.5 mg 1-10 10-30 tablet by ity of tablet 00:00: 00:00 mouth 3 [place] 00 :00 (three) Medical times Branch daily. 2019- No [id number] 1{tbl} Take 1 [facility] vitamin 8-27 08-02 tablet by ity of w/FA tablet 00:00: 00:00 [place] 00 :00 daily. Medical Branch Immunizations Ordered Filled Immunization Date Status Comments [facility] e Immunization Name Name Influenza Virus [...] and ABX Branch Free 6 MO-64 YRS (FLUCELVAX) Influenza Virus 2022-01-27 Completed Universit y of [...] YRS TDAP 2021-02-07 Completed University of 00:00:00 [facility] Influenza Virus 2021-02-07 Completed Universit y of Vaccine Quad [facility], 00:00:00 [place] [facility] Preserv and ABX Branch Free 6 MO-64 YRS TDAP 2021-02-07 Completed University of 00:00:00 [facility] Influenza Virus 2021-02-07 Completed Universit y of Vaccine [facility] IM, 00:00:00 [place] [facility] Preserv and ABX Branch Free 6 MO-64 YRS TDAP 2021-02-07 Completed University of 00:00:00 [facility] Influenza Virus 2021-02-07 Completed Universit y of Vaccine Quad IM, 00:00:00 [place] [facility] Preserv and ABX Branch Free 6 MO-64 YRS TDAP 2021-02-07 Completed University of 00:00:00 [facility] Influenza Virus 2021-02-07 Completed Universit y of Vaccine Quad IM, 00:00:00 [place] [facility] d[facility] Preserv and ABX Branch Free 6 MO-64 YRS TDAP 2021-02-07 Completed University of 00:00:00 [facility] Influenza Virus 2021-02-07 Completed Universit y of Vaccine Quad IM, 00:00:00 [place] Me dical Preserv and ABX Branch Free 6 MO-64 YRS TDAP 2021-02-07 Completed University of 00:00:00 [facility] Influenza Virus 2021-02-07 Completed Universit y of Vaccine Quad IM, 00:00:00 [place] [facility] d[facility] Preserv and ABX Branch Free 6 MO-64 YRS TDAP 2021-02-07 Completed University of 00:00:00 [facility] Influenza Virus 2021-02-07 Completed Universit y of Vaccine Quad IM, 00:00:00 [place] [facility] d[facility] Preserv and ABX Branch Free 6 MO-64 YRS TDAP 2021-02-07 Completed University of 00:00:00 [facility] Influenza Virus 2021-02-07 Completed Universit y of Vaccine Quad IM, 00:00:00 [place] [facility] dical Preserv and ABX Branch Free 6 MO-64 YRS TDAP 2021-02-07 Completed University of 00:00:00 [facility] Influenza Virus 2021-02-07 Completed Universit y of Vaccine Quad IM, 00:00:00 [place] [facility] dical Preserv and ABX Branch Free 6 MO-64 YRS TDAP 2021-02-07 Completed University of 00:00:00 [facility] Influenza Virus 2021-02-07 Completed Universit y of Vaccine Quad IM, 00:00:00 [place] [facility] dical Preserv and ABX Branch Free 6 MO-64 YRS TDAP 2021-02-07 Completed University of 00:00:00 [facility] Influenza Virus 2021-02-07 Completed Universit y of Vaccine Quad IM, 00:00:00 [place] [facility] dical Preserv and ABX Branch Free 6 MO-64 YRS TDAP 2021-02-07 Completed University of 00:00:00 [facility] Influenza Virus 2021-02-07 Completed Universit y of Vaccine Quad IM, 00:00:00 [place] [facility] dical Preserv and ABX Branch Free 6 MO-64 YRS TDAP 2021-02-07 Completed University of 00:00:00 [facility] Influenza Virus 2021-02-07 Completed Universit y of Vaccine Quad IM, 00:00:00 [place] Me dical Preserv and ABX Branch Free 6 MO-64 YRS TDAP 2021-02-07 Completed University of 00:00:00 [facility] Influenza Virus 2021-02-07 Completed Universit y of Vaccine Quad IM, 00:00:00 [place] Me dical Preserv and ABX Branch Free 6 MO-64 YRS TDAP 2021-02-07 Completed University of 00:00:00 [facility] Influenza Virus 2021-02-07 Completed Universit y of Vaccine Quad IM, 00:00:00 [place] [facility] dical Preserv and ABX Branch Free 6 MO-64 YRS TDAP 2021-02-07 Completed University of 00:00:00 [facility] Influenza Virus 2021-02-07 Completed Universit y of Vaccine Quad IM, 00:00:00 [place] [facility] dical Preserv and ABX Branch Free 6 MO-64 YRS TDAP 2021-02-07 Completed University of 00:00:00 [facility] Influenza Virus 2021-02-07 Completed Universit y of Vaccine Quad IM, 00:00:00 [facility] dical Preserv and ABX Branch Free 6 MO-64 YRS TDAP 2021-02-07 Completed University of 00:00:00 [facility] Influenza Virus 2021-02-07 Completed Universit y of Vaccine Quad IM, 00:00:00 [facility] dical Preserv and ABX Branch Free 6 MO-64 YRS TDAP 2021-02-07 Completed University of 00:00:00 [facility] Influenza Virus 2021-02-07 Completed Universit y of Vaccine Quad IM, 00:00:00 [facility] dical Preserv and ABX Branch Free 6 MO-64 YRS TDAP 2021-02-07 Completed University of 00:00:00 [facility] Influenza Virus 2021-02-07 Completed Universit y of Vaccine Quad IM, 00:00:00 [place] [facility] dical Preserv and ABX Branch Free 6 MO-64 YRS TDAP 2021-02-07 Completed University of 00:00:00 [facility] Influenza Virus 2021-02-07 Completed Universit y of Vaccine Quad IM, 00:00:00 [place] [facility] dical Preserv and ABX Branch Free 6 MO-64 YRS TDAP 2021-02-07 Completed University of 00:00:00 [facility] Influenza Virus 2021-02-07 Completed Universit y of Vaccine Quad IM, 00:00:00 [place] [facility] dical Preserv and ABX Branch Free 6 MO-64 YRS TDAP 2021-02-07 Completed University of 00:00:00 [facility] Influenza Virus 2021-02-07 Completed Universit y of Vaccine Quad IM, 00:00:00 [place] Me dical Preserv and ABX Branch Free 6 MO-64 YRS TDAP 2021-02-07 Completed University of 00:00:00 [facility] Influenza Virus 2021-02-07 Completed Universit y of Vaccine Quad IM, 00:00:00 [place] [facility] dical Preserv and ABX Branch Free 6 MO-64 YRS TDAP 2021-02-07 Completed University of 00:00:00 [facility] Influenza Virus 2021-02-07 Completed Universit y of Vaccine Quad IM, 00:00:00 [facility] dical Preserv and ABX Branch Free 6 MO-64 YRS TDAP 2021-02-07 Completed University of 00:00:00 [facility] Influenza Virus 2021-02-07 Completed Universit y of Vaccine Quad IM, 00:00:00 [facility] dical Preserv and ABX Branch Free 6 MO-64 YRS TDAP 2021-02-07 Completed University of 00:00:00 [facility] Influenza Virus 2021-02-07 Completed Universit y of Vaccine Quad IM, 00:00:00 [facility] dical Preserv and ABX Branch Free 6 MO-64 YRS TDAP 2021-02-07 Completed University of 00:00:00 [facility] Influenza Virus 2021-02-07 Completed Universit y of Vaccine Quad IM, 00:00:00 [place] [facility] dical Preserv and ABX Branch Free 6 MO-64 YRS TDAP 2021-02-07 Completed University of 00:00:00 [facility] Influenza Virus 2021-02-07 Completed Universit y of Vaccine Quad IM, 00:00:00 [place] [facility] dical Preserv and ABX Branch Free 6 MO-64 YRS TDAP 2021-02-07 Completed University of 00:00:00 [facility] Influenza Virus 2021-02-07 Completed Universit y of Vaccine Quad IM, 00:00:00 [place] Me dical Preserv and ABX Branch Free 6 MO-64 YRS TDAP 2021-02-07 Completed University of 00:00:00 [facility] Influenza Virus 2021-02-07 Completed Universit y of Vaccine Quad IM, 00:00:00 [place] [facility] dical Preserv and ABX Branch Free 6 MO-64 YRS TDAP 2021-02-07 Completed University of 00:00:00 [facility] Influenza Virus 2021-02-07 Completed Universit y of Vaccine Quad IM, 00:00:00 [place] [facility] dical Preserv and ABX Branch Free 6 MO-64 YRS TDAP 2021-02-07 Completed University of 00:00:00 [facility] Influenza Virus 2021-02-07 Completed Universit y of Vaccine Quad IM, 00:00:00 [place] Me dical Preserv and ABX Branch Free 6 MO-64 YRS TDAP 2021-02-07 Completed University of 00:00:00 [facility] Influenza Virus 2021-02-07 Completed Universit y of Vaccine Quad IM, 00:00:00 [place] Me dical Preserv and ABX Branch Free 6 MO-64 YRS TDAP 2021-02-07 Completed University of 00:00:00 [facility] Influenza Virus 2021-02-07 Completed Universit y of Vaccine Quad IM, 00:00:00 [place] Me dical Preserv and ABX Branch Free 6 MO-64 YRS TDAP 2021-02-07 Completed University of 00:00:00 [facility] Influenza Virus 2021-02-07 Completed Universit y of Vaccine Quad IM, 00:00:00 [place] Me dical Preserv and ABX Branch Free 6 MO-64 YRS TDAP 2021-02-07 Completed University of 00:00:00 [facility] Influenza Virus 2021-02-07 Completed Universit y of Vaccine Quad IM, 00:00:00 [place] Me dical Preserv and ABX Branch Free 6 MO-64 YRS TDAP 2021-02-07 Completed University of 00:00:00 [facility] Influenza Virus 2021-02-07 Completed Universit y of Vaccine Quad IM, 00:00:00 [place] Me dical Preserv and ABX Branch Free 6 MO-64 YRS TDAP 2021-02-07 Completed University of 00:00:00 [facility] Influenza Virus 2021-02-07 Completed Universit y of Vaccine Quad IM, 00:00:00 [place] Me dical Preserv and ABX Branch Free 6 MO-64 YRS TDAP 2021-02-07 Completed University of 00:00:00 [facility] Influenza Virus 2021-02-07 Completed Universit y of Vaccine Quad IM, 00:00:00 [place] Me dical Preserv and ABX Branch Free 6 MO-64 YRS TDAP 2021-02-07 Completed University of 00:00:00 [facility] Influenza Virus 2021-02-07 Completed Universit y of Vaccine Quad IM, 00:00:00 [place] Me dical Preserv and ABX Branch Free 6 MO-64 YRS TDAP 2021-02-07 Completed University of 00:00:00 [facility] Influenza Virus 2021-02-07 Completed Universit y of Vaccine Quad IM, 00:00:00 [place] Me dical Preserv and ABX Branch Free 6 MO-64 YRS TDAP 2021-02-07 Completed University of 00:00:00 [facility] Influenza Virus 2021-02-07 Completed Universit y of Vaccine Quad IM, 00:00:00 [place] Me dical Preserv and ABX Branch Free 6 MO-64 YRS TDAP 2021-02-07 Completed University of 00:00:00 [facility] Influenza Virus 2021-02-07 Completed Universit y of Vaccine Quad IM, 00:00:00 [place] Me dical Preserv and ABX Branch Free 6 MO-64 YRS TDAP 2021-02-07 Completed University of 00:00:00 [facility] Influenza Virus 2021-02-07 Completed Universit y of Vaccine Quad IM, 00:00:00 [place] Me dical Preserv and ABX Branch Free 6 MO-64 YRS TDAP 2021-02-07 Completed University of 00:00:00 [facility] Influenza Virus 2021-02-07 Completed Universit y of Vaccine Quad IM, 00:00:00 [place] Me dical Preserv and ABX Branch Free 6 MO-64 YRS TDAP 2021-02-07 Completed University of 00:00:00 [facility] Influenza Virus 2021-02-07 Completed Universit y of Vaccine Quad IM, 00:00:00 [place] Me dical Preserv and ABX Branch Free 6 MO-64 YRS TDAP 2021-02-07 Completed University of 00:00:00 [facility] Influenza Virus 2021-02-07 Completed Universit y of Vaccine Quad IM, 00:00:00 [place] Me dical Preserv and ABX Branch Free 6 MO-64 YRS TDAP 2021-02-07 Completed University of 00:00:00 [facility] Influenza Virus 2021-02-07 Completed Universit y of Vaccine Quad IM, 00:00:00 [place] Me dical Preserv and ABX Branch Free 6 MO-64 YRS TDAP 2021-02-07 Completed University of 00:00:00 [facility] Influenza Virus 2021-02-07 Completed Universit y of Vaccine Quad IM, 00:00:00 [place] Me dical Preserv and ABX Branch Free 6 MO-64 YRS TDAP 2021-02-07 Completed University of 00:00:00 [facility] Influenza Virus 2021-02-07 Completed Universit y of Vaccine Quad IM, 00:00:00 [place] Me dical Preserv and ABX Branch Free 6 MO-64 YRS TDAP 2021-02-07 Completed University of 00:00:00 [facility] Influenza Virus 2021-02-07 Completed Universit y of Vaccine Quad IM, 00:00:00 [place] Me dical Preserv and ABX Branch Free 6 MO-64 YRS TDAP 2021-02-07 Completed University of 00:00:00 [facility] Influenza Virus 2021-02-07 Completed Universit y of Vaccine Quad IM, 00:00:00 [place] Me dical Preserv and ABX Branch Free 6 MO-64 YRS TDAP 2021-02-07 Completed University of 00:00:00 [facility] Influenza Virus 2021-02-07 Completed Universit y of Vaccine Quad IM, 00:00:00 [place] Me dical Preserv and ABX Branch Free 6 MO-64 YRS TDAP 2021-02-07 Completed University of 00:00:00 [facility] Influenza Virus 2021-02-07 Completed Universit y of Vaccine Quad IM, 00:00:00 [place] Me dical Preserv and ABX Branch Free 6 MO-64 YRS TDAP 2021-02-07 Completed University of 00:00:00 [facility] Influenza Virus 2021-02-07 Completed Universit y of Vaccine Quad IM, 00:00:00 [place] Me dical Preserv and ABX Branch Free 6 MO-64 YRS TDAP 2021-02-07 Completed University of 00:00:00 [facility] Influenza Virus 2021-02-07 Completed Universit y of Vaccine Quad IM, 00:00:00 [place] Me dical Preserv and ABX Branch Free 6 MO-64 YRS TDAP 2021-02-07 Completed University of 00:00:00 [facility] Influenza Virus 2021-02-07 Completed Universit y of Vaccine Quad IM, 00:00:00 [place] Me dical Preserv and ABX Branch Free 6 MO-64 YRS TDAP 2021-02-07 Completed University of 00:00:00 [facility] Influenza Virus 2021-02-07 Completed Universit y of Vaccine Quad IM, 00:00:00 [place] Me dical Preserv and ABX Branch Free 6 MO-64 YRS TDAP 2021-02-07 Completed University of 00:00:00 [facility] Influenza Virus 2021-02-07 Completed Universit y of Vaccine Quad IM, 00:00:00 [place] Me dical Preserv and ABX Branch Free 6 MO-64 YRS TDAP 2021-02-07 Completed University of 00:00:00 [facility] Influenza Virus 2021-02-07 Completed Universit y of Vaccine Quad IM, 00:00:00 [facility] dical Preserv and ABX Branch Free 6 MO-64 YRS TDAP 2021-02-07 Completed University of 00:00:00 [facility] Influenza Virus 2021-02-07 Completed Universit y of Vaccine Quad IM, 00:00:00 [place] Me dical Preserv and ABX Branch Free 6 MO-64 YRS TDAP 2021-02-07 Completed University of 00:00:00 [facility] Influenza Virus 2021-02-07 Completed Universit y of Vaccine Quad IM, 00:00:00 [facility] dical Preserv and ABX Branch Free 6 MO-64 YRS TDAP 2021-02-07 Completed University of 00:00:00 [facility] Influenza Virus 2021-02-07 Completed Universit y of Vaccine Quad IM, 00:00:00 [place] Me dical Preserv and ABX Branch Free 6 MO-64 YRS TDAP 2021-02-07 Completed University of 00:00:00 [facility] Influenza Virus 2021-02-07 Completed Universit y of Vaccine Quad IM, 00:00:00 [place] Me dical Preserv and ABX Branch Free 6 MO-64 YRS TDAP 2021-02-07 Completed University of 00:00:00 [facility] Influenza Virus 2021-02-07 Completed Universit y of Vaccine Quad IM, 00:00:00 [place] Me dical Preserv and ABX Branch Free 6 MO-64 YRS TDAP 2021-02-07 Completed University of 00:00:00 [facility] Influenza Virus 2021-02-07 Completed Universit y of Vaccine Quad IM, 00:00:00 [place] Me dical Preserv and ABX Branch Free 6 MO-64 YRS TDAP 2021-02-07 Completed University of 00:00:00 [facility] Influenza Virus 2021-02-07 Completed Universit y of Vaccine Quad IM, 00:00:00 [place] Me dical Preserv and ABX Branch Free 6 MO-64 YRS TDAP 2021-02-07 Completed University of 00:00:00 [facility] Influenza Virus 2021-02-07 Completed Universit y of Vaccine Quad IM, 00:00:00 [place] Me dical Preserv and ABX Branch Free 6 MO-64 YRS TDAP 2021-02-07 Completed University of 00:00:00 [facility] Influenza Virus 2021-02-07 Completed Universit y of Vaccine Quad IM, 00:00:00 [place] Me dical Preserv and ABX Branch Free 6 MO-64 YRS TDAP 2021-02-07 Completed University of 00:00:00 [facility] Influenza Virus 2021-02-07 Completed Universit y of Vaccine Quad IM, 00:00:00 [place] Me dical Preserv and ABX Branch Free 6 MO-64 YRS TDAP 2021-02-07 Completed University of 00:00:00 [facility] Influenza Virus 2021-02-07 Completed Universit y of Vaccine Quad IM, 00:00:00 [place] Me dical Preserv and ABX Branch Free 6 MO-64 YRS TDAP 2021-02-07 Completed University of 00:00:00 [facility] Influenza Virus 2021-02-07 Completed Universit y of Vaccine Quad IM, 00:00:00 [place] Me dical Preserv and ABX Branch Free 6 MO-64 YRS TDAP 2021-02-07 Completed University of 00:00:00 [facility] Influenza Virus 2021-02-07 Completed Universit y of Vaccine Quad IM, 00:00:00 [place] Me dical Preserv and ABX Branch Free 6 MO-64 YRS TDAP 2021-02-07 Completed University of 00:00:00 [facility] Influenza Virus 2021-02-07 Completed Universit y of Vaccine Quad IM, 00:00:00 [place] Me dical Preserv and ABX Branch Free 6 MO-64 YRS TDAP 2021-02-07 Completed University of 00:00:00 [facility] Influenza Virus 2021-02-07 Completed Universit y of Vaccine Quad IM, 00:00:00 [place] Me dical Preserv and ABX Branch Free 6 MO-64 YRS TDAP 2021-02-07 Completed University of 00:00:00 [facility] Influenza Virus 2021-02-07 Completed Universit y of Vaccine Quad IM, 00:00:00 [facility] dical Preserv and ABX Branch Free 6 MO-64 YRS TDAP 2021-02-07 Completed University of 00:00:00 [facility] Influenza Virus 2021-02-07 Completed Universit y of Vaccine Quad IM, 00:00:00 [facility] dical Preserv and ABX Branch Free 6 MO-64 YRS TDAP 2021-02-07 Completed University of 00:00:00 [facility] Influenza Virus 2021-02-07 Completed Universit y of Vaccine Quad IM, 00:00:00 [facility] dical Preserv and ABX Branch Free 6 MO-64 YRS (FLUCELVAX) TDAP 2021-02-07 Completed University of 00:00:00 [facility] Influenza Virus 2021-02-07 Completed Universit y of Vaccine Quad IM, 00:00:00 [place] [facility] dical Preserv and ABX Branch Free 6 MO-64 YRS TDAP 2021-02-07 Completed University of 00:00:00 [facility] Influenza Virus 2021-02-07 Completed Universit y of Vaccine Quad IM, 00:00:00 [facility] dical Preserv and ABX Branch Free 6 MO-64 YRS TDAP 2021-02-07 Completed University of 00:00:00 [facility] Influenza Virus 2021-02-07 Completed Universit y of Vaccine Quad IM, 00:00:00 [place] Me dical Preserv and ABX Branch Free 6 MO-64 YRS TDAP 2021-02-07 Completed University of 00:00:00 [facility] Influenza Virus 2021-02-07 Completed Universit y of Vaccine Quad IM, 00:00:00 [place] Me dical Preserv and ABX Branch Free 6 MO-64 YRS TDAP 2021-02-07 Completed University of 00:00:00 [facility] Influenza Virus 2021-02-07 Completed Universit y of Vaccine Quad IM, 00:00:00 [place] Me dical Preserv and ABX Branch Free 6 MO-64 YRS TDAP 2021-02-07 Completed University of 00:00:00 [facility] Influenza Virus 2021-02-07 Completed Universit y of Vaccine Quad IM, 00:00:00 [place] Me dical Preserv and ABX Branch Free 6 MO-64 YRS TDAP 2021-02-07 Completed University of 00:00:00 [facility] Influenza Virus 2021-02-07 Completed [facility], 00:00:00 [facility] dical Preserv and ABX Branch Free 6 MO-64 YRS TDAP 2021-02-07 Completed [facility] of 00:00:00 [facility] Influenza Virus 2021-02-07 Completed [facility], 00:00:00 [facility] dical Preserv and ABX Branch Free 6 MO-64 YRS TDAP 2021-02-07 Completed [facility] 00:00:00 [facility] Influenza Virus 2021-02-07 Completed [facility], 00:00:00 [place] [facility] dical Preserv and ABX Branch Free 6 MO-64 YRS TDAP 2021-02-07 Completed [facility] 00:00:00 [facility] Influenza Virus 2021-02-07 Completed [facility], 00:00:00 [facility] dical Preserv and ABX Branch Free 6 MO-64 YRS TDAP 2021-02-07 Completed [facility] of 00:00:00 [facility] Influenza Virus 2021-02-07 Completed [facility], 00:00:00 [facility] dical Preserv and ABX Branch Free 6 MO-64 YRS TDAP 2021-02-07 Completed [facility] 00:00:00 [facility] Influenza Virus 2021-02-07 Completed [facility], 00:00:00 [place] [facility] dical Preserv and ABX Branch Free 6 MO-64 YRS TDAP 2021-02-07 Completed [facility] 00:00:00 [facility] Influenza Virus 2021-02-07 Completed [facility], 00:00:00 [place] [facility] dical Preserv and ABX Branch Free 6 MO-64 YRS TDAP 2021-02-07 Completed [facility] 00:00:00 [facility] Influenza Virus 2021-02-07 Completed [facility], 00:00:00 [place] [facility] dical Preserv and ABX Branch Free 6 MO-64 YRS TDAP 2021-02-07 Completed [facility] 00:00:00 [facility] Influenza Virus 2021-02-07 Completed [facility], 00:00:00 [place] [facility] dical Preserv and ABX Branch Free 6 MO-64 YRS TDAP 2021-02-07 Completed [facility] 00:00:00 [facility] Influenza Virus 2021-02-07 Completed [facility], 00:00:00 [place] [facility] dical Preserv and ABX Branch Free 6 MO-64 YRS TDAP 2021-02-07 Completed [facility] 00:00:00 [facility] Influenza Virus 2021-02-07 Completed [facility], 00:00:00 [place] [facility] dical Preserv and ABX Branch Free 6 MO-64 YRS TDAP 2021-02-07 Completed [facility] 00:00:00 [facility] Influenza Virus 2021-02-07 Completed [facility], 00:00:00 [place] [facility] dical Preserv and ABX Branch Free 6 MO-64 YRS TDAP 2021-02-07 Completed [facility] 00:00:00 [facility] Influenza Virus 2021-02-07 Completed [facility], 00:00:00 [place] [facility] dical Preserv and ABX Branch Free 6 MO-64 YRS TDAP 2021-02-07 Completed [facility] 00:00:00 [facility] Influenza Virus 2021-02-07 Completed [facility], 00:00:00 [place] [facility] dical Preserv and ABX Branch Free 6 MO-64 YRS TDAP 2021-02-07 Completed [facility] 00:00:00 [facility] Influenza Virus 2021-02-07 Completed [facility], 00:00:00 [place] [facility] dical Preserv and ABX Branch Free 6 MO-64 YRS TDAP 2021-02-07 Completed [facility] 00:00:00 [facility] Influenza Virus 2021-02-07 Completed [facility], 00:00:00 [place] [facility] dical Preserv and ABX Branch Free 6 MO-64 YRS TDAP 2021-02-07 Completed [facility] 00:00:00 [facility] Influenza Virus 2021-02-07 Completed [facility], 00:00:00 [place] [facility] dical Preserv and ABX Branch Free 6 MO-64 YRS TDAP 2021-02-07 Completed [facility] 00:00:00 [facility] Influenza Virus 2021-02-07 Completed [facility], 00:00:00 [place] [facility] dical Preserv and ABX Branch Free 6 MO-64 YRS TDAP 2021-02-07 Completed [facility] 00:00:00 [facility] Influenza Virus 2021-02-07 Completed [facility], 00:00:00 [place] [facility] dical Preserv and ABX Branch Free 6 MO-64 YRS TDAP 2021-02-07 Completed [facility] 00:00:00 [facility] Influenza Virus 2021-02-07 Completed [facility], 00:00:00 [place] [facility] dical Preserv and ABX Branch Free 6 MO-64 YRS TDAP 2021-02-07 Completed [facility] 00:00:00 [facility] Influenza Virus 2021-02-07 Completed [facility], 00:00:00 [place] [facility] dical Preserv and ABX Branch Free 6 MO-64 YRS TDAP 2021-02-07 Completed [facility] 00:00:00 [facility] Influenza Virus 2021-02-07 Completed [facility], 00:00:00 [place] [facility] dical Preserv and ABX Branch Free 6 MO-64 YRS TDAP 2021-02-07 Completed [facility] 00:00:00 [facility] Influenza Virus 2021-02-07 Completed [facility], 00:00:00 [place] [facility] dical Preserv and ABX Branch Free 6 MO-64 YRS TDAP 2021-02-07 Completed [facility] 00:00:00 [facility] Influenza Virus 2021-02-07 Completed [facility], 00:00:00 [place] [facility] dical Preserv and ABX Branch Free 6 MO-64 YRS TDAP 2021-02-07 Completed [facility] 00:00:00 [facility] Influenza Virus 2021-02-07 Completed [facility], 00:00:00 [place] [facility] dical Preserv and ABX Branch Free 6 MO-64 YRS TDAP 2021-02-07 Completed [facility] 00:00:00 [facility] Influenza Virus 2021-02-07 Completed [facility], 00:00:00 [place] [facility] dical Preserv and ABX Branch Free 6 MO-64 YRS TDAP 2021-02-07 Completed [facility] 00:00:00 [facility] Influenza Virus 2021-02-07 Completed [facility], 00:00:00 [place] [facility] dical Preserv and ABX Branch Free 6 MO-64 YRS TDAP 2021-02-07 Completed [facility] 00:00:00 [facility] Influenza Virus 2021-02-07 Completed [facility], 00:00:00 [place] [facility] dical Preserv and ABX Branch Free 6 MO-64 YRS TDAP 2021-02-07 Completed [facility] 00:00:00 [facility] Influenza Virus 2021-02-07 Completed [facility], 00:00:00 [place] [facility] dical Preserv and ABX Branch Free 6 MO-64 YRS TDAP 2021-02-07 Completed [facility] 00:00:00 [facility] Influenza Virus 2021-02-07 Completed [facility], 00:00:00 [place] [facility] dical Preserv and ABX Branch Free 6 MO-64 YRS TDAP 2021-02-07 Completed [facility] 00:00:00 [facility] Influenza Virus 2021-02-07 Completed [facility], 00:00:00 [place] [facility] dical Preserv and ABX Branch Free 6 MO-64 YRS TDAP 2021-02-07 Completed [facility] 00:00:00 [facility] Influenza Virus 2021-02-07 Completed [facility], 00:00:00 [place] [facility] dical Preserv and ABX Branch Free 6 MO-64 YRS TDAP 2021-02-07 Completed [facility] 00:00:00 [facility] Influenza Virus 2021-02-07 Completed [facility], 00:00:00 [place] [facility] dical Preserv and ABX Branch Free 6 MO-64 YRS TDAP 2021-02-07 Completed [facility] 00:00:00 [facility] Influenza Virus 2021-02-07 Completed [facility], 00:00:00 [place] [facility] dical Preserv and ABX Branch Free 6 MO-64 YRS TDAP 2021-02-07 Completed [facility] 00:00:00 [facility] Influenza Virus 2021-02-07 Completed [facility], 00:00:00 [facility] dical Preserv and ABX Branch Free 6 MO-64 YRS TDAP 2021-02-07 Completed [facility] of 00:00:00 [facility] Influenza Virus 2021-02-07 Completed [facility], 00:00:00 [facility] dical Preserv and ABX Branch Free 6 MO-64 YRS TDAP 2021-02-07 Completed [facility] of 00:00:00 [facility] Influenza Virus 2021-02-07 Completed [facility], 00:00:00 [facility] dical Preserv and ABX Branch Free 6 MO-64 YRS TDAP 2021-02-07 Completed [facility] of 00:00:00 [facility] Influenza Virus 2021-02-07 Completed [facility], 00:00:00 [facility] dical Preserv and ABX Branch Free 6 MO-64 YRS TDAP 2021-02-07 Completed [facility] of 00:00:00 [facility] Influenza Virus 2021-02-07 Completed [facility], 00:00:00 [facility] dical Preserv and ABX Branch Free 6 MO-64 YRS TDAP 2021-02-07 Completed [facility] of 00:00:00 [facility] Influenza Virus 2021-02-07 Completed [facility], 00:00:00 [facility] dical Preserv and ABX Branch Free 6 MO-64 YRS TDAP 2021-02-07 Completed [facility] of 00:00:00 [facility] Influenza Virus 2021-02-07 Completed [facility], 00:00:00 [facility] dical Preserv and ABX Branch Free 6 MO-64 YRS TDAP 2021-02-07 Completed [facility] of 00:00:00 [facility] Influenza Virus 2021-02-07 Completed [facility], 00:00:00 [place] [facility] dical Preserv and ABX Branch Free 6 MO-64 YRS TDAP 2021-02-07 Completed [facility] of 00:00:00 [facility] Influenza Virus 2021-02-07 Completed [facility], 00:00:00 [place] [facility] dical Preserv and ABX Branch Free 6 MO-64 YRS TDAP 2021-02-07 Completed [facility] of 00:00:00 [facility] Influenza Virus 2021-02-07 Completed [facility], 00:00:00 [place] [facility] dical Preserv and ABX Branch Free 6 MO-64 YRS TDAP 2021-02-07 Completed [facility] of 00:00:00 [facility] Influenza Virus 2021-02-07 Completed [facility], 00:00:00 [facility] dical Preserv and ABX Branch Free 6 MO-64 YRS TDAP 2021-02-07 Completed [facility] of 00:00:00 [facility] Influenza Virus 2021-02-07 Completed [facility], 00:00:00 [facility] dical Preserv and ABX Branch Free 6 MO-64 YRS TDAP 2021-02-07 Completed [facility] of 00:00:00 [facility] Influenza Virus 2021-02-07 Completed [facility], 00:00:00 [place] [facility] dical Preserv and ABX Branch Free 6 MO-64 YRS TDAP 2021-02-07 Completed [facility] of 00:00:00 [facility] Influenza Virus 2021-02-07 Completed [facility], 00:00:00 [facility] dical Preserv and ABX Branch Free 6 MO-64 YRS TDAP 2021-02-07 Completed [facility] of 00:00:00 [facility] Influenza Virus 2021-02-07 Completed [facility], 00:00:00 [facility] dical Preserv and ABX Branch Free 6 MO-64 YRS TDAP 2021-02-07 Completed [facility] 00:00:00 [facility] Influenza Virus 2021-02-07 Completed [facility], 00:00:00 [place] [facility] dical Preserv and ABX Branch Free 6 MO-64 YRS TDAP 2021-02-07 Completed [facility] of 00:00:00 [facility] Influenza Virus 2020-01-25 Completed [facility] [...] 00:00:00 [facility] 6+ MO Branch (FLUZONE/FLULAVAL/F LUARIX) Influenza Virus 2020-01-25 Completed [facility]it y of [...] y of Vaccine Quad .5 mL 00:00:00 [facility] 6+ MO Branch Influenza Virus [...] mL 00:00:00 [facility] 6+ MO Branch (FLUZONE/FLULAVAL/F LUARIX) Influenza Virus 2018-12-23 Completed [facility]it y of [...] y of Vaccine Quad .5 mL 00:00:00 [facility] 6+ MO Branch Influenza Virus 2018-12-23 Completed [facility] .5 mL 00:00:00 [facility] 6+ MO Branch Influenza Virus 2018-12-23 Completed [facility] .5 mL 00:00:00 [facility] 6+ MO Branch Influenza Virus 2018-12-23 Completed [facility] .5 mL 00:00:00 [facility] 6+ MO Branch Influenza Virus 2018-12-23 Completed [facility] .5 mL 00:00:00 [facility] 6+ MO Branch Influenza Virus 2018-12-23 Completed [facility] .5 mL 00:00:00 [facility] 6+ MO Branch Influenza Virus [...] y of Vaccine Quad .5 mL 00:00:00 [facility] 6+ MO Branch TDAP (ADACEL) 2018-09-14 Completed [facility] of VACCINE 00:00:00 [facility] TDAP (ADACEL) 2018-09-14 Completed [facility] of VACCINE 00:00:00 [facility] TDAP (ADACEL) 2018-09-14 Completed [facility] of VACCINE 00:00:00 [facility] TDAP (ADACEL) 2018-09-14 Completed [facility] VACCINE 00:00:00 [facility] TDAP (ADACEL) 2018-09-14 Completed [facility] VACCINE 00:00:00 [facility] TDAP (ADACEL) 2018-09-14 Completed [facility] of VACCINE 00:00:00 [facility] Branch TDAP (ADACEL) 2018-09-14 Completed University of VACCINE 00:00:00 [facility] Branch TDAP (ADACEL) 2018-09-14 Completed [facility] of VACCINE 00:00:00 [facility] TDAP (ADACEL) 2018-09-14 Completed [facility] of VACCINE 00:00:00 [facility] Branch TDAP (ADACEL) 2018-09-14 Completed [facility] of VACCINE 00:00:00 [facility] Branch TDAP (ADACEL) 2018-09-14 Completed [facility] of VACCINE 00:00:00 [facility] Branch TDAP (ADACEL) 2018-09-14 Completed [facility] of VACCINE 00:00:00 [facility] TDAP (ADACEL) 2018-09-14 Completed [facility] of VACCINE 00:00:00 [facility] TDAP (ADACEL) 2018-09-14 Completed [facility] of VACCINE 00:00:00 [facility] TDAP (ADACEL) 2018-09-14 Completed [facility] of VACCINE 00:00:00 [facility] TDAP (ADACEL) 2018-09-14 Completed [facility] of VACCINE 00:00:00 [facility] TDAP (ADACEL) 2018-09-14 Completed [facility] of VACCINE 00:00:00 [facility] Branch TDAP (ADACEL) 2018-09-14 Completed [facility] of VACCINE 00:00:00 [facility] TDAP (ADACEL) 2018-09-14 Completed [facility] of VACCINE 00:00:00 [facility] TDAP (ADACEL) 2018-09-14 Completed [facility] VACCINE 00:00:00 [facility] TDAP (ADACEL) 2018-09-14 Completed [facility] VACCINE 00:00:00 [facility] TDAP (ADACEL) 2018-09-14 Completed [facility] VACCINE 00:00:00 [facility] TDAP (ADACEL) 2018-09-14 Completed [facility] of VACCINE 00:00:00 [facility] Branch TDAP (ADACEL) 2018-09-14 Completed [facility] of VACCINE 00:00:00 [facility] TDAP (ADACEL) 2018-09-14 Completed [...] (ADACEL) 2018-09-14 Completed [facility] of VACCINE 00:00:00 [facility] TDAP (ADACEL) 2018-09-14 Completed [facility] of VACCINE 00:00:00 [facility] TDAP (ADACEL) 2018-09-14 Completed [facility] of VACCINE 00:00:00 [facility] TDAP (ADACEL) 2018-09-14 Completed [facility] VACCINE 00:00:00 [facility] TDAP (ADACEL) 2018-09-14 Completed [facility] VACCINE 00:00:00 [facility] TDAP (ADACEL) 2018-09-14 Completed [facility] VACCINE 00:00:00 [facility] TDAP (ADACEL) 2018-09-14 Completed [facility] of VACCINE 00:00:00 [facility] TDAP (ADACEL) 2018-09-14 Completed [facility] of VACCINE 00:00:00 [facility] TDAP (ADACEL) 2018-09-14 Completed [...] (ADACEL) 2018-09-14 Completed [facility] VACCINE 00:00:00 [facility] TDAP (ADACEL) 2018-09-14 Completed [facility] VACCINE 00:00:00 [facility] TDAP (ADACEL) 2018-09-14 Completed [facility] of VACCINE 00:00:00 [facility] TDAP (ADACEL) 2018-09-14 Completed [facility] of VACCINE 00:00:00 [facility] TDAP (ADACEL) 2018-09-14 Completed [facility] of VACCINE 00:00:00 [facility] TDAP (ADACEL) 2018-09-14 Completed [facility] of VACCINE 00:00:00 [facility] TDAP (ADACEL) 2018-09-14 Completed [facility] of VACCINE 00:00:00 [facility] TDAP (ADACEL) 2018-09-14 Completed [facility] of VACCINE 00:00:00 [facility] TDAP (ADACEL) 2018-09-14 Completed [facility] of VACCINE 00:00:00 [facility] TDAP (ADACEL) 2018-09-14 Completed [facility] of VACCINE 00:00:00 [facility] TDAP (ADACEL) 2018-09-14 Completed [facility] of VACCINE 00:00:00 [facility] TDAP (ADACEL) 2018-09-14 Completed [facility] of VACCINE 00:00:00 [facility] TDAP (ADACEL) 2018-09-14 Completed [facility] of VACCINE 00:00:00 [facility] TDAP (ADACEL) 2018-09-14 Completed [facility] of VACCINE 00:00:00 [facility] TDAP (ADACEL) 2018-09-14 Completed [facility] of VACCINE 00:00:00 [facility] TDAP (ADACEL) 2018-09-14 Completed [facility] of VACCINE 00:00:00 [facility] TDAP (ADACEL) 2018-09-14 Completed [facility] of VACCINE 00:00:00 [facility] TDAP (ADACEL) 2018-09-14 Completed [facility] of VACCINE 00:00:00 [facility] TDAP (ADACEL) 2018-09-14 Completed [facility] of VACCINE 00:00:00 [facility] TDAP (ADACEL) 2018-09-14 Completed [facility] of VACCINE 00:00:00 [facility] TDAP (ADACEL) 2018-09-14 Completed [facility] of VACCINE 00:00:00 [facility] TDAP (ADACEL) 2018-09-14 Completed [facility] of VACCINE 00:00:00 [facility] TDAP (ADACEL) 2018-09-14 Completed [facility] of VACCINE 00:00:00 [facility] TDAP (ADACEL) 2018-09-14 Completed [facility] of VACCINE 00:00:00 [facility] TDAP (ADACEL) 2018-09-14 Completed [facility] of VACCINE 00:00:00 [facility] TDAP (ADACEL) 2018-09-14 Completed [facility] of VACCINE 00:00:00 [facility] TDAP (ADACEL) 2018-09-14 Completed [facility] of VACCINE 00:00:00 [facility] TDAP (ADACEL) 2018-09-14 Completed [facility] of VACCINE 00:00:00 [facility] TDAP (ADACEL) 2018-09-14 Completed [facility] of VACCINE 00:00:00 [facility] TDAP (ADACEL) 2018-09-14 Completed [facility] of VACCINE 00:00:00 [facility] TDAP (ADACEL) 2018-09-14 Completed [facility] of VACCINE 00:00:00 [facility] TDAP (ADACEL) 2018-09-14 Completed [facility] of VACCINE 00:00:00 [facility] TDAP (ADACEL) 2018-09-14 Completed [facility] of VACCINE 00:00:00 [facility] TDAP (ADACEL) 2018-09-14 Completed [facility] of VACCINE 00:00:00 [facility] TDAP (ADACEL) 2018-09-14 Completed [facility] of VACCINE 00:00:00 [facility] TDAP (ADACEL) 2018-09-14 Completed [facility] of VACCINE 00:00:00 [facility] TDAP (ADACEL) 2018-09-14 Completed [facility] of VACCINE 00:00:00 [facility] TDAP (ADACEL) 2018-09-14 Completed [facility] of VACCINE 00:00:00 [facility] TDAP (ADACEL) 2018-09-14 Completed [facility] of VACCINE 00:00:00 [facility] TDAP (ADACEL) 2018-09-14 Completed [facility] of VACCINE 00:00:00 [facility] TDAP (ADACEL) 2018-09-14 Completed [facility] of VACCINE 00:00:00 [facility] TDAP (ADACEL) 2018-09-14 Completed [facility] of VACCINE 00:00:00 [facility] TDAP (ADACEL) 2018-09-14 Completed [facility] of VACCINE 00:00:00 [facility] TDAP (ADACEL) 2018-09-14 Completed [facility] VACCINE 00:00:00 [facility] TDAP (ADACEL) 2018-09-14 Completed [facility] VACCINE 00:00:00 [facility] TDAP (ADACEL) 2018-09-14 Completed [facility] VACCINE 00:00:00 [facility] TDAP (ADACEL) 2018-09-14 Completed [facility] of VACCINE 00:00:00 [facility] TDAP (ADACEL) 2018-09-14 Completed [facility] of VACCINE 00:00:00 [facility] TDAP (ADACEL) 2018-09-14 Completed [facility] VACCINE 00:00:00 [facility] TDAP (ADACEL) 2018-09-14 Completed [facility] of VACCINE 00:00:00 [facility] TDAP (ADACEL) 2018-09-14 Completed [facility] of VACCINE 00:00:00 [facility] TDAP (ADACEL) 2018-09-14 Completed [facility] of VACCINE 00:00:00 [facility] TDAP (ADACEL) 2018-09-14 Completed [facility] of VACCINE 00:00:00 [facility] TDAP (ADACEL) 2018-09-14 Completed [facility] of VACCINE 00:00:00 [facility] TDAP (ADACEL) 2018-09-14 Completed [facility] of VACCINE 00:00:00 [facility] TDAP (ADACEL) 2018-09-14 Completed [facility] of VACCINE 00:00:00 [facility] TDAP (ADACEL) 2018-09-14 Completed [facility] of VACCINE 00:00:00 [facility] TDAP (ADACEL) 2018-09-14 Completed [facility] of VACCINE 00:00:00 [facility] TDAP (ADACEL) 2018-09-14 Completed [facility] of VACCINE 00:00:00 [facility] TDAP (ADACEL) 2018-09-14 Completed [facility] of VACCINE 00:00:00 [facility] TDAP (ADACEL) 2018-09-14 Completed [facility] of VACCINE 00:00:00 [facility] TDAP (ADACEL) 2018-09-14 Completed [facility] of VACCINE 00:00:00 [facility] TDAP (ADACEL) 2018-09-14 Completed [facility] of VACCINE 00:00:00 [facility] TDAP (ADACEL) 2018-09-14 Completed [facility] of VACCINE 00:00:00 [facility] TDAP (ADACEL) 2018-09-14 Completed [facility] of VACCINE 00:00:00 [facility] TDAP (ADACEL) 2018-09-14 Completed [...] (ADACEL) 2018-09-14 Completed [facility] of VACCINE 00:00:00 [facility] TDAP (ADACEL) 2018-09-14 Completed [facility] of VACCINE 00:00:00 [facility] TDAP (ADACEL) 2018-09-14 Completed [facility] of VACCINE 00:00:00 [facility] TDAP (ADACEL) 2018-09-14 Completed [facility] of VACCINE 00:00:00 [facility] TDAP (ADACEL) 2018-09-14 Completed [facility] of VACCINE 00:00:00 [facility] TDAP (ADACEL) 2018-09-14 Completed [facility] of VACCINE 00:00:00 [facility] TDAP (ADACEL) 2018-09-14 Completed [facility] of VACCINE 00:00:00 [facility] TDAP (ADACEL) 2018-09-14 Completed [facility] of VACCINE 00:00:00 [facility] TDAP (ADACEL) 2018-09-14 Completed [...] (ADACEL) 2018-09-14 Completed [facility] of VACCINE 00:00:00 [facility] TDAP (ADACEL) 2018-09-14 Completed [facility] of VACCINE 00:00:00 [facility] TDAP (ADACEL) 2018-09-14 Completed [facility] of VACCINE 00:00:00 [facility] TDAP (ADACEL) 2018-09-14 Completed [facility] of VACCINE 00:00:00 [facility] Vital Signs Vital Name Observation Time Observation Value Comments Source Systolic blood 2022-10-21 20:42:00 99 mm[Hg] [facility]iver [facility]ity of pressure [facility] Diastolic blood 2022-10-21 20:42:00 66 mm[Hg] Unive rsity of [facility] Heart rate 2022-10-21 20:42:00 88 /min [facility] of [facility] Body weight 2022-10-21 20:42:00 57.[address] [facility] [place] [place] BMI 2022-10-21 20:42:00 20.97 kg/m2 [facility]i [facility] [place] [place] Systolic blood 2022-08-21 16:59:00 122 mm[Hg] Univer [facility]ity of [facility] Diastolic blood 2022-08-21 16:59:00 79 mm[Hg] Unive rsity of [facility] Heart rate 2022-08-21 16:59:00 63 /min [facility] [place] [place] Body height 2022-08-21 16:59:00 165.[address] [facility] [address] [facility] [place] [place] Oxygen saturation in 2022-08-21 16:59:00 98 /min [facility] Arterial blood by [facility] Pulse oximetry Branch Systolic blood 2022-08-08 19:30:00 124 mm[Hg] Univer sity of [facility] Diastolic blood 2022-08-08 19:30:00 80 mm[Hg] Unive rsity of [facility] Heart rate 2022-08-08 19:30:00 50 /min [facility] [place] [place] Body temperature 2022-08-08 19:30:00 36.61 Darleen Univ ersity of [facility] Respiratory rate 2022-08-08 19:30:00 17 /min Univ ersity of [facility] Body height 2022-08-08 19:30:00 165.1 cm [facility] Body weight 2022-08-08 19:30:00 56.427 kg [facility] BMI 2022-08-08 19:30:00 20.70 kg/m2 [facility] Oxygen saturation in 2022-08-08 19:30:00 100 /min University of Arterial blood by [place] [facility] Pulse oximetry Branch Systolic blood 2022-08-04 18:54:00 102 mm[Hg] Univer sity of pressure [facility] Diastolic blood 2022-08-04 18:54:00 70 mm[Hg] Unive rsity of [facility] Heart rate 2022-08-04 18:54:00 76 /min [facility] Body height 2022-08-04 18:54:00 165.1 cm [facility] Body weight 2022-08-04 18:54:00 56.7 kg [facility] BMI 2022-08-04 18:54:00 20.80 kg/m2 [facility] Systolic blood 2022-06-09 13:23:00 100 mm[Hg] Univer sity of [facility] Diastolic blood 2022-06-09 13:23:00 77 mm[Hg] Unive rsity of pressure [facility] Heart rate 2022-06-09 13:23:00 73 /min [facility] Body temperature 2022-06-09 13:23:00 36.61 Darleen Univ [facility] Respiratory rate 2022-06-09 13:23:00 20 /min Univ [facility] Body height 2022-06-09 13:23:00 165.1 cm [facility] Body weight 2022-06-09 13:23:00 61.009 kg [facility] BMI 2022-06-09 13:23:00 22.38 kg/m2 [facility] Oxygen saturation in 2022-06-09 13:23:00 100 /min University of Arterial blood by [facility] Pulse oximetry Branch Systolic blood 2022-04-30 16:02:00 108 mm[Hg] Univer sity of pressure [facility] Diastolic blood 2022-04-30 16:02:00 76 mm[Hg] Unive rsity of [facility] Heart rate 2022-04-30 16:02:00 69 /min Universi ty of [facility] Body temperature 2022-04-30 16:02:00 36.78 Darleen Univ ersity of [facility] Respiratory rate 2022-04-30 16:02:00 18 /min Univ ersity of [facility] Body height 2022-04-30 16:02:00 165.1 cm [facility] Body weight 2022-04-30 16:02:00 54.885 kg [facility] BMI 2022-04-30 16:02:00 20.14 kg/m2 [facility] of [facility] Systolic blood 2022-03-11 03:49:00 94 mm[Hg] Univer sity of [facility] Diastolic blood 2022-03-11 03:49:00 66 mm[Hg] Unive rsity of pressure [facility] Heart rate 2022-03-11 03:49:00 68 /min Universi ty of [facility] Body temperature 2022-03-11 03:49:00 36.22 Darleen Univ ersity of [facility] Respiratory rate 2022-03-11 03:49:00 16 /min Univ ersity of [facility] Oxygen saturation in 2022-03-11 03:49:00 97 /min [place] of Arterial blood by [facility] Pulse oximetry Branch Body height 2022-03-10 23:54:00 165.1 cm [facility] Body weight 2022-03-10 23:54:00 56.7 kg [facility] BMI 2022-03-10 23:54:00 20.80 kg/m2 [facility] Systolic blood 2022-01-27 16:15:00 103 mm[Hg] Univer sity of pressure [facility] Diastolic blood 2022-01-27 16:15:00 74 mm[Hg] Unive rsity of pressure [facility] Heart rate 2022-01-27 16:15:00 93 /min [facility] Body weight 2022-01-27 16:15:00 57.607 kg [facility] BMI 2022-01-27 16:15:00 21.13 kg/m2 [facility] [place] [facility] Procedures Procedure Date / Time Performing Clinician Source Performed HOME HEALTH - OTHER 2022-10-23 05:01:00 [facility] HOME HEALTH - OTHER 2022 05:01:00 Keith Linares [facility] DME/SUPPLY JUSTIFICATION 2022-09-10 05:01:00 Doctor Shah [facility] HOME HEALTH [id number] 2022-09-02 05:01:00 Doctor Shah [facility] Name Medical Bow EXTERNAL PROVIDER RECORDS 2022-08-25 05:01:00 Doctor Shah [facility] HEALTH - OTHER 2022-08-21 05:01:00 [facility] INSURANCE CORRESPONDENCE 2022-08-19 05:01:00 Doctor Shah [facility] DME/SUPPLY JUSTIFICATION 2022-07-27 05:01:00 Doctor Shah [facility] Medical Bow HEPATITIS B SURFACE 2022-06-26 15:45:00 Teo Ingram [facility] ANTIGEN [facility] HIV 1/2 AG-AB WITH REFLEX 2022-06-26 15:45:00 [facility]TR[facility] BREAST 2022-06-26 14:44:[address] [facility] COMPLETE LEFT Medical Branch BI DIAGNOSTIC 2022-06-26 14:00:00 Teo Ingram [facility] [place] TOMOSYNTHESIS LEFT Medical Branc h XR CHEST 1 VW 2022-06-09 14:21:00 Eric Fernandez [facility] CERVICAL SPINE WO 2022-06-09 14:18:00 [facility] CONTRAST [facility] INSURANCE CORRESPONDENCE 2022-06-08 05:01:00 Doctor Shah [facility] CONSENT/REFUSAL FOR 2022-06-03 16:39:37 Doctor [facility] DIAGNOSIS AND TREATMENT [facility] DME/SUPPLY JUSTIFICATION 2022-05-04 06:01:00 Doctor Shah, [facility] Name Medical Bow EXTERNAL PROVIDER RECORDS 2022-04-03 06:01:00 Doctor Alyssa [facility] Name [facility] XR WRIST <3 VW RIGHT 2022-03-11 00:49:27 Singer Darryn [facility] XR WRIST 3+ VW LEFT 2022-03-11 00:49:27 Darryn Owusu [facility] COVID-19 (ID NOW RAPID 2022-03-10 23:52:00 Darryn Owusu [facility] TESTING) Medical [facility] POCT TEST 2022-03-10 23:46:00 Singer Darryn [facility] COMP. METABOLIC PANEL 2022-03-10 23:45:00 Darryn Owusu [facility] ([id number]) [facility] SALICYLATE 2022-03-10 23:45:00 Owusu, [facility] ETHANOL 2022-03-10 23:45:00 Singer [facility] CBC WITH DIFF 2022-03-10 23:45:00 [facility] URINALYSIS 2022-03-10 23:45:00 [facility]UG (IMMUNOASSAY) 2022-03-10 23:45:[address] [facility] DRUG Medical [facility] SCREEN W/O REFLEX FLU VACC (), 6 2022-01-27 16:36:45 Arik Benz [facility] MO-64 YRS, .5ML, IM, QUAD [facility] (FLUCELVAX) ASSIGNMENT OF BENEFITS 2022-01-27 16:03:32 Doctor Alyssa, [facility] Name Medical Bow POCT URINALYSIS 2022-01-27 00:00:00 Demar [facility] AUTHORIZATION FOR RELEASE 2022-01-08 05:01:00 Doctor Shah [facility] AUTHORIZATION FOR RELEASE 2021-12-23 05:01:00 Doctor Alyssa [facility] Encounters Start End Encounter Admission Attending Care Care Encounter Source Date/Time Date/Time Type Type Clinicians Facility Department ID 2021-05-01 Outpatient MDA MDA [id number] 17:26:47 Anderso n 2021-02-26 Outpatient P [facility] [id number] Univers 18:38:00 ity of [facility] 2021-01-27 Outpatient P [facility] [id number] Univers 20:41:07 ity of [facility] 2021-01-27 Emergency [facility] [id number] Univers 20:40:15 ity of [facility] 2021-01-27 Emergency [facility] [id number] Univers 15:33:55 ity of [facility] 2021-01-27 Outpatient U [facility] [id number] Univers 01:16:04 ity of [facility] 2021-01-27 Emergency [facility] [id number] Univers 00:53:09 ity of [facility] 2021-01-26 Emergency [facility] [id number] Univers 22:49:05 ity of [facility] 2021-01-25 Emergency [facility] [id number] Univers 21:41:56 ity of [facility] 2021-01-25 Outpatient [facility] [id number] Univers 13:01:25 ALY ity of [facility] 2021-01-25 Outpatient [facility] [id number] Univers 13:01:24 ALY ity of [facility] 2021-01-25 Outpatient R SHELBY, [facility] [id number] Univers 12:47:[address] [facility] [place] [place] 2021-01-24 Outpatient R SHELBY, [facility] [id number] Univers 15:57:25 ALY [facility] of [facility] 2021-01-24 Emergency [facility] [id number] Univers 10:32:11 ity of [facility] 2021-01-24 Emergency [facility] [id number] Univers 10:16:12 ity of [facility] 2021-01-23 Emergency [facility] [id number] Univers 21:15:49 ity of [facility] 2022-12-08 2022-12-08 Outpatient [facility] [id number] [facility] 16:15:00 16:15:[address] [facility] [place] [place] 2022-11-27 2022-11-27 Outpatient [facility] [id number] Univers 14:30:00 14:30:[address] [facility] [place] 2022-11-27 2022-11-27 Telephone [facility] 1.2.840.114 [id number] Univers 00:00:00 00:00:00 [facility] 350.1.13.10 it y of [place] 4.2.7.2.686 Henry as DONTE?BLEA [id number] [address] MEDICAL OFFICE [facility] 2022-11-19 2022-11-19 Telephone [facility] 1.2.840.114 [id number] Univers 00:00:00 00:00:00 [facility] 350.1.13.10 it y of [place] 4.2.7.2.686 Henry as DONTE?BLEA [id number] [address] MEDICAL OFFICE [facility] 2022-10-26 2022-10-26 Patient [facility] 1.2.840.114 [id number] Univers 00:00:00 00:00:00 Secure Msg [facility] 350.1.13.10 ity of [place] 4.2.7.2.686 Henry as DONTE?BLEA [id number] [address] OFFICE [facility] 2022-10-24 2022-10-24 Telephone [facility] 1.2.840.114 [id number] Univers 00:00:00 00:00:00 Arik HEALTH 350.1.13.10 it y of [place] 4.2.7.2.686 Henry as DONTE?BLEA [id number] [address] MEDICAL OFFICE [facility] 2022-10-23 2022-10-23 Orders Doctor MARTINEZ 1.2.840.114 [id number] Univers 00:00:00 00:00:00 Only Unassigned, SHAYY 350.1.13.10 ity of [facility] 4.2.7.2.686 Henry as [id number] [address] 2022-10-21 2022-10-21 Office [facility] 1.2.840.114 [id number] Univers 15:45:00 16:10:22 Visit [facility] 350.1.13.10 it y of [place] 4.2.7.2.686 Henry as DONTE?BLEA [phone] [address] OFFICE [facility] 2022-10-21 2022-10-21 Outpatient R [facility] [id number] Univers 15:45:00 15:45:00 [facility] 2022-10-19 2022-10-19 Outpatient [facility] [id number] Univers 16:15:00 16:15:00 [facility] 2022-10-19 2022-10-19 Telephone [facility] 1.2.840.114 [id number] Univers 00:00:00 00:00:00 [facility] 350.1.13.10 it y of [place] 4.2.7.2.686 Henry as DONTE?BLEA [id number] [address] OFFICE [facility] 2022-10-14 2022-10-14 Telephone [facility] 1.2.840.114 [id number] Univers 00:00:00 00:00:00 [facility] 350.1.13.10 it y of [place] 4.2.7.2.686 Henry as DONTE?BLEA [phone] [address] OFFICE [facility] 2022-10-13 2022-10-13 Refill [facility] 1.2.840.114 [id number] Univers 00:00:00 00:00:00 [facility] 350.1.13.10 it y of [place] 4.2.7.2.686 Henry as DONTE?BLEA [phone] [address] OFFICE [facility] 2022-10-09 2022-10-09 Refill [facility] 1.2.840.114 [id number] Univers 00:00:00 00:00:00 [facility] 350.1.13.10 it y of [place] 4.2.7.2.686 Henry as DONTE?BLEA [phone] Tn dread MELVIN [address] [place] [address] OFFICE [facility] 2022-10-08 2022-10-08 Patient Doctor [facility] 1.2.840.114 [id number] [facility] 00:00:00 00:00:00 Secure Msg Unassigned, [place] [address]..13.10 ity of [place] 4.2.7.2.686 Henry as DONTE?BLEA [phone] Tn dread MELVIN [address] [place] [address] OFFICE [facility] 2022-10-05 2022-10-05 [facility] 1.2.840.114 [id number] [facility] 00:00:00 00:00:00 [facility] 350.1.13.10 it y of [place] 4.2.7.2.686 Henry as DONTE?BLEA [id number] Tn dread PRADHAN[address] OFFICE [facility] 2022-09-30 2022-09-30 Telephone [facility] 1.2.840.114 [id number] [facility] 00:00:00 00:00:00 [place] [address].1.13.10 it y of [place] 4.2.7.2.686 Henry as DONTE?BLEA [phone] Tn dread PRADHAN[address] OFFICE [facility] 2022-09-30 2022-09-30 Telephone [facility] 1.2.840.114 [id number] Univers 00:00:00 00:00:00 [place] [address].1.13.10 it y of [place] 4.2.7.2.686 Henry as DONTE?BLEA [phone] Tn dread MELVIN [address] [place] [address] OFFICE [facility] 2022-09-23 2022-09-23 [facility] 1.2.840.114 [id number] [facility] 00:00:00 00:00:00 [facility] 350.1.13.10 it y of [place] 4.2.7.2.686 Henry as DONTE?BLEA [phone] Me dical KN[address] 2022-09-23 2022-09-23 [facility] 1.2.840.114 [id number] Univers 00:00:00 00:00:00 Arik HEALTH 350.1.13.10 it y of [place] 4.2.7.2.686 Henry as DONTE?BLEA [phone] [address] 2022 2022 Orders Doctor JUAN 1.2.840.114 [id number] Univers 00:00:00 00:00:00 Only Unassigned, SHAYY 350.1.13.10 ity of [facility] 4.2.7.2.686 Henry as [phone] [address] 2022-09-10 2022-09-10 Orders Doctor JUAN 1.2.840.114 [id number] Univers 00:00:00 00:00:00 Only Unassigned, SHAYY 350.1.13.10 ity of [facility] 4.2.7.2.686 Henry as [id number] [address] 2022-09-09 2022-09-09 [facility] 1.2.840.114 [id number] Univers 00:00:00 00:00:00 Arik HEALTH 350.1.13.10 it y of [place] 4.2.7.2.686 Henry as DONTE?BLEA [id number] [address] 2022-09-09 2022-09-09 [facility] 1.2.840.114 [id number] Univers 00:00:00 00:00:00 Arik HEALTH 350.1.13.10 it y of [place] 4.2.7.2.686 Henry as DONTE?BLEA [phone] [address] 2022-09-09 2022-09-09 Patient [facility] 1.2.840.114 [id number] Univers 00:00:00 00:00:00 Secure Msg Arik HEALTH 350.1.13.10 ity of [place] 4.2.7.2.686 Henry as DONTE?BLEA [id number] [address] MEDICAL OFFICE [facility] 2022-09-09 2022-09-09 Telephone [facility] 1.2.840.114 [id number] Univers 00:00:00 00:00:00 [facility] 350.1.13.10 it y of [place] 4.2.7.2.686 Henry as DONTE?BLEA [id number] [address] OFFICE [facility] 2022-09-09 2022-09-09 [facility] 1.2.840.114 [id number] Univers 00:00:00 00:00:00 [facility] 350.1.13.10 it y of [place] 4.2.7.2.686 Henry as DONTE?BLEA [id number] [address] OFFICE [facility] 2022-09-08 2022-09-08 [facility] 1.2.840.114 [id number] Univers 00:00:00 00:00:00 [facility] 350.1.13.10 it y of [place] 4.2.7.2.686 Henry as DONTE?BLEA [phone] [address] OFFICE [facility] 2022-09-02 2022-09-02 [facility] 1.2.840.114 [id number] Univers 00:00:00 00:00:00 [facility] 350.1.13.10 it y of [place] 4.2.7.2.686 Henry as DONTE?BLEA [id number] [address] OFFICE [facility] 2022-09-02 2022-09-02 Orders Doctor JUAN 1.2.840.114 [id number] Univers 00:00:00 00:00:00 Only Unassigned, SHAYY 350.1.13.10 ity of [place] [facility] 4.2.7.2.686 Henry as [phone] [address] 2022-08-31 2022-08-31 [facility] 1.2.840.114 [id number] Univers 00:00:00 00:00:00 [facility] 350.1.13.10 it y of [place] 4.2.7.2.686 Henry as DONTE?BLEA [id number] [address] MEDICAL OFFICE [facility] 2022-08-31 2022-08-31 Patient Demar [facility] 1.2.840.114 [id number] Univers 00:00:00 00:00:00 Secure Msg [facility] 350.1.13.10 ity of [place] 4.2.7.2.686 Henry as DONTE?BLEA [id number] [address] MEDICAL OFFICE [facility] 2022-08-27 2022-08-27 [facility] 1.2.840.114 [id number] Univers 00:00:00 00:00:00 , [employer] 350.1.13.10 ity of Karen [place] 4.2.7.2.686 Henry as DONTE?BLEA [phone] [address] MEDICAL OFFICE [facility] 2022-08-27 2022-08-27 Patient Demar [facility] 1.2.840.114 [id number] Univers 00:00:00 00:00:00 Secure [facility] 350.1.13.10 ity of [place] 4.2.7.2.686 Henry as DONTE?BLEA [phone] [address] OFFICE [facility] 2022-08-25 2022-08-25 Orders Doctor JUAN 1.2.840.114 [id number] Univers 00:00:00 00:00:00 Only Unassigned, SHAYY 350.1.13.10 ity of [place] [facility] 4.2.7.2.686 Henry as [phone] [address] 2022-08-21 2022-08-21 Outpatient R JESSICA [facility] [id number] Univers 11:20:00 12:22:58 , DONNA it y of [facility] 2022-08-21 2022-08-21 Office [facility] 1.2.840.114 [id number] Univers 11:20:00 12:22:58 Visit , DonnaFormerly [facility] 350.1.13.10 ity of Karen [place] 4.2.7.2.686 Henry as DONTE?BLEA [id number] [address] OFFICE [facility] 2022-08-21 2022-08-21 Patient Anthony [facility] 1.2.840.114 [id number] Univers 00:00:00 00:00:00 Outreach Gema Maria [facility] 350.1.13.10 i ty of JOSE[place] 4.2.7.2.686 Henry as DONTE?BLEA [id number] [address] OFFICE [facility] 2022-08-21 2022-08-21 Orders Doctor JUAN 1.2.840.114 [id number] Univers 00:00:00 00:00:00 Only Unassigned, SHAYY 350.1.13.10 ity of [facility] 4.2.7.2.686 Henry as [phone] [address] 2022-08-19 2022-08-19 [facility]phone [facility] 1.2.840.114 [id number] Univers 00:00:00 00:00:00 [facility] 350.1.13.10 it y of [place] [facility] 4.2.7.2.686 Henry as DONTE?BLEA [phone] [address] 2022-08-19 2022-08-19 Orders Doctor JUAN 1.2.840.114 [id number] Univers 00:00:00 00:00:00 Only Unassigned, SHAYY 350.1.13.10 ity of [facility] 4.2.7.2.686 Henry as [phone] [address] 2022-08-15 2022-08-15 Refill [facility] 1.2.840.114 [id number] Univers 00:00:00 00:00:00 [facility] 350.1.13.10 it y of [place] [facility] [facility] 4.2.7.2.686 Henry as DONTE?BLEA [phone] [address] OFFICE [facility] 2022-08-10 2022-08-10 Telephone [facility] 1.2.840.114 [id number] Univers 00:00:00 00:00:00 Teo TREVIZO 350.1.13.10 i ty [facility] 4.2.7.2.[place] [phone] [facility] 134 [facility] 2022-08-10 2022-08-10 Telephone [facility] 1.2.840.114 [id number] Univers 00:00:00 00:00:00 Teo TREVIZO 350.1.13.10 i ty of [facility] 4.2.7.2.[place] [id number] [address] 2022-08-10 2022-08-10 Telephone [facility] 1.2.840.114 [id number] Univers 00:00:00 00:00:00 [facility] 350.1.13.10 it y of [place] MON[facility]AABRAZO [facility] 4.2.7.2.686 Henry as DONTE?BLEA [id number] [address] OFFICE [facility] 2022-08-08 2022-08-08 Nurse Nurse, [facility] 1.2.840.114 [id number] Univers 14:30:00 14:50:00 Visit Unknown, [facility] HEALTH 350.1.13.10 ity of [place] 4.2.7.2.686 Henry as DONTE?BLEA [id number] [facility] 370 [facility] OFFICE [facility] 2022-08-08 2022-08-08 Outpatient R NATALY [facility] [id number] Univers 14:30:00 14:30:00 [facility]22-08-04 2022-08-04 Office [facility] 1.2.840.114 [id number] Univers 14:30:00 15:00:00 Visit [facility] 350.1.13.10 it y of [place] MON[facility]AABRAZO [facility] 4.2.7.2.686 Henry as DONTE?BLEA [phone] [address] OFFICE [facility] 2022-08-04 2022-08-04 Outpatient R DEMAR [facility] [id number] Univers 14:30:00 14:18:[address] [facility] [place] [place] 2022-07-30 2022-07-30 Refill JUAN Urias 1.2.840.114 [id number] Univers 00:00:00 00:00:00 Abril GARAY 350.1.13.10 it y of HOSPITAL 4.2.7.2.686 Henry as [phone] [facility] [address] 2022-07-27 2022-07-27 Orders Doctor JUAN 1.2.840.114 [id number] Univers 00:00:00 00:00:00 Only Unassigned, SHAYY 350.1.13.10 ity of [place] [facility] 4.2.7.2.686 Henry as [id number] [address] 2022-07-26 2022-07-26 Refill [facility] 1.2.840.114 [id number] Univers 00:00:00 00:00:00 [facility] 350.1.13.10 it y of [facility] 4.2.7.2.686 Henry as DONTE?BLEA [phone] [address] MEDICAL OFFICE [facility] 2022-07-22 2022-07-22 [facility] 1.2.840.114 [id number] Univers 00:00:00 00:00:00 [facility] 350.1.13.10 it y of [facility] 4.2.7.2.686 [place] as DONTE?BLEA [phone] [facility] KENYON [address] [place] [address] MEDICAL OFFICE [facility] 2022-06-26 2022-06-26 [facility] 1.2.840.114 [id number] Univers 08:19:16 23:59:00 Encounter Teo SPECIALTY 350.1.13.10 ity of [place].2.[place] AT [phone] Tn dread DARIUSZLeonard 800 [facility] 2022-06-26 2022-06-26 Youth Director Lab, [facility] 1.2.840.114 [id number] Univers 10:30:00 10:45:00 Visit Teo Ingram SPECIALTY 350.1.13.10 ity of [place]2.7.2.[place] [id number] Tn dread MESSER 353 [facility] 2022-06-26 2022-06-26 Outpatient R NATALY [facility] [id number] Univers 08:18:41 08:18:00 TEO ity of [facility] 2022-06-26 2022-06-26 Hospital Nataly [facility] 1.2.840.114 [id number] Univers 08:00:00 08:18:00 Encounter Teo SPECIALTY 350.1.13.10 ity of [place]2.[place] [id number] Tn dread MESSER 800 [facility] 2022-06-26 2022-06-26 Case KATHERINE Ingram 1.2.290.174 [id number] Univers 00:00:00 00:00:00 Management Teo PEDIATRIC 350.1.13.10 ity of [place].2.[place] [id number] [place] [address] [address] [facility] 2022-06-25 2022-06-25 Patient [facility] 1.2.840.114 [id number] Univers 00:00:00 00:00:00 Secure Msg Arik HEALTH 350.1.13.10 ity of [place] 4.2.7.2.686 Henry as DONTE?BLEA [id number] [facility] [address] MEDICAL OFFICE BUILDING 2022-06-25 2022-06-25 Patient [facility] 1.2.840.114 [id number] Univers 00:00:00 00:00:00 Secure Msg Arik HEALTH 350.1.13.10 [facility] [place] 4.2.7.2.686 [place] as DONTE?BLEA [phone] [facility] [address] MED[facility] 2022-06-25 2022-06-25 [facility] [id number] [facility] 00:00:00 00:00:00 Secure Msg [place] 350.1.13.10 ity [place] 4[place]2.7.2.686 [place] [id number] Tn dicdhruv [address] 2022-06-22 2022-06-22 Refill [facility] 1.2.840.114 [id number] Univers 00:00:00 00:00:00 [facility] 350.1.13.10 it y of Jonathan [place] 4.2.7.2.686 [place] as DONTE?BLEA [phone] [address] OFFICE [facility] 2022-06-22 2022-06-22 Telephone [facility] 1.2.840.114 [id number] Univers 00:00:00 00:00:00 Teo TREVIZO 350.1.13.10 i ty of [place] [phone] [address] 2022-06-19 2022-06-19 Telephone [facility] 1.2.840.114 [id number] Univers 00:00:00 00:00:00 Teo TREVIZO 350.1.13.10 i ty of [place] [id number] [address] 2022-06-12 2022-06-12 Telephone [facility] 1.2.030.303 [id number] Univers 00:00:00 00:00:00 Elle TREVIZO 350.1.13.10 ity of [place].2.[place] [phone] [address] 2022-06-10 2022-06-10 Patient Doctor [facility] 1.2.840.114 [id number] Univers 00:00:00 00:00:00 Secure Msg Unassigned, HEALTH 350.1.13.10 ity of [place] 4.2.7.2.686 Henry as DONTE?BLEA [phone] Tn dread PRADH[address] 2022-06-09 2022-06-09 Emergency X AUFDERIDE [facility] ERT [id number] Univers 08:29:00 10:11:00 , ERIC ity of [facility] 2022-06-09 2022-06-09 Emergency Aufderheide [facility] 1.2.840.114 [id number] Univers 08:29:00 10:11:00 , Eric TREVIZO 350.1.13.10 i ty of [place].2.7.2.686 [place] [phone] [facility] [address] 2022-06-09 2022-06-09 Telephone [facility] 1.2.840.114 [id number] Univers 00:00:00 00:00:00 [facility] 350.1.13.10 it y of [place] 4.2.7.2.686 Henry as DONTE?BLEA [phone] [address] MEDICAL OFFICE [facility] 2022-06-09 2022-06-09 Refill [facility] 1.2.840.114 [id number] Univers 00:00:00 00:00:00 [facility] 350.1.13.10 it y of Edward [facility] 4.2.7.2.686 [place] as DONTE?BLEA [phone] [address] OFFICE [facility] 2022-06-08 2022-06-08 Orders Doctor JUAN 1.2.840.114 [id number] Univers 00:00:00 00:00:00 Only Unassigned, SHAYY 350.1.13.10 ity of [place] [facility] 4.2.7.2.686 Henry as [phone] [facility] [address] 2022-06-05 2022-06-05 Outpatient Campos OWEN [facility] [id number] Univers 11:00:00 11:00:00 ELLE ellis of [facility] 2022-06-05 2022-06-05 Telephone [facility] 1.2.840.114 [id number] Univers 00:00:00 00:00:00 [facility] 350.1.13.10 it y of Edward [facility] 4.2.7.2.686 [place] as DONTE?BLEA [phone] [address] MEDICAL OFFICE [facility] 2022-06-04 2022-06-04 Telephone [facility] 1.2.840.114 101 [id number] Univers 00:00:00 00:00:00 [facility] 350.1.13.10 it y of Edward [facility] 4.2.7.2.686 Henry as DONTE?BLEA [phone] [facility] [address] MEDICAL OFFICE [facility] 2022-06-04 2022-06-04 Patient [facility] 1.2.840.114 [id number] Univers 00:00:00 00:00:00 Secure Msg [facility] 350.1.13.10 ity of Edward [facility] 4.2.7.2.686 Henry as DONTE?BLEA [phone] [facility] 044 [facility] OFFICE [facility] 2022-06-03 2022-06-03 Outpatient R NATALY [facility] [id number] Univers 10:40:13 23:59:00 TEO ity of [facility] 2022-06-03 2022-06-03 [facility] 1.2.840.114 [id number] Univers 10:40:00 23:59:00 Encounter Teo TREVIZO 350.1.13.10 ity of [place] 4.2.7.2.686 [place] C[place] [phone] [facility] [address] 2022-06-03 2022-06-03 Patient Doctor [facility] 1.2.840.114 [id number] Univers 00:00:00 00:00:00 Secure Msg Unassigned, [place] 350.1.13.10 ity of [place] 4.2.7.2.686 [place] [facility] [phone] [facility] 134 [facility] 2022-06-03 2022-06-03 Orders Doctor JUAN 1.2.840.114 [id number] Univers 00:00:00 00:00:00 Only Unassigned, SHAYY 350.1.13.10 ity of [place] [facility] 4.2.7.2.686 Henry as [phone] [facility] [address] 2022-05-25 2022-05-25 Patient [facility] 1.2.840.114 [id number] Univers 00:00:00 00:00:00 Secure Msg [facility] 350.1.13.10 ity of Edward [facility] 4.2.7.2.686 Henry as DONTE?BLEA [phone] [facility] [address] OFFICE [facility] 2022-05-25 2022-05-25 Telephone [facility] 1.2.840.114 [id number] Univers 00:00:00 00:00:00 [facility] 350.1.13.10 it y of [place]steven [place] 4.2.7.2.686 Henry as DONTE?BLEA [phone] [address] OFFICE [facility] 2022-05-04 2022-05-04 Orders Doctor JUAN 1.2.840.114 [id number] Univers 00:00:00 00:00:00 Only Unassigned, SHAYY 350.1.13.10 ity of [place] [facility] 4.2.7.2.686 Henry as [phone] [address] 2022-04-30 2022-04-30 Outpatient [facility] [id number] Univers 09:45:00 10:48:[address] [facility] [place] [place] 2022-04-30 2022-04-30 Office [facility] 1.2.108.428 [id number] Univers 09:45:00 10:48:21 Visit Teo [place] 350.1.13.10 i ty of [facility] 4.2.7.2.686 [place] [phone] Tn dread [address] 2022-04-30 2022-04-30 Outpatient [facility] 31313 [id number] Univers 09:45:00 09:45:[address] [facility] [place] [place] 2022-04-29 2022-04-29 Refill [facility] 1.2.840.114 [id number] Univers 00:00:00 00:00:00 [facility] 350.1.13.10 it y of Edward [facility] 4.2.7.2.686 Henry as DONTE?BLEA [phone] [address] OFFICE [facility] 2022-04-28 2022-04-28 Telephone [facility] 1.2.840.114 [id number] Univers 00:00:00 00:00:00 [facility] 350.1.13.10 it y of Edward [place] 4.2.7.2.686 Henry as DONTE?BLEA [phone] [address] OFFICE [facility] 2022-04-24 2022-04-24 [facility] 1.2.840.114 [id number] Univers 00:00:00 00:00:00 [facility] 350.1.13.10 it y of Edward [place] 4.2.7.2.686 Henry as DONTE?BLEA [phone] [address] OFFICE [facility] 2022-04-24 2022-04-24 [facility] 1.2.840.114 [id number] Univers 00:00:00 00:00:00 [facility] 350.1.13.10 it y of Edward [place] 4.2.7.2.686 Henry as DONTE?BLEA [phone] [address] OFFICE [facility] 2022-04-24 2022-04-24 [facility] 1.2.840.114 [id number] 027 [facility] 00:00:00 00:00:00 Secure Msg Emilia [facility] 350.1.13.10 ity of [place] 4.2.7.2.686 Henry as DONTE?BLEA [phone] [address] OFFICE [facility] 2022-04-24 2022-04-24 [facility] 1.2.840.114 [id number] Univers 00:00:00 00:00:00 [facility] 350.1.13.10 it y of Edward [place] 4.2.7.2.686 Henry as DONTE?BLEA [id number] [address] OFFICE [facility] 2022-04-16 2022-04-16 Telephone [facility] 1.2.840.114 [id number] Univers 00:00:00 00:00:00 [facility] 350.1.13.10 it y of Edward [place] 4.2.7.2.686 Henry as DONTE?BLEA [id number] [address] OFFICE [facility] 2022-04-14 2022-04-14 [facility] 1.2.840.114 [id number] Univers 00:00:00 00:00:00 Arik HEALTH 350.1.13.10 it y of Edward [place] 4.2.7.2.686 Henry as DONTE?BLEA [phone] [address] 2022-04-06 2022-04-06 [facility] 1.2.840.114 [id number] Univers 00:00:00 00:00:00 Arik HEALTH 350.1.13.10 it y of Edward [place] 4.2.7.2.686 Henry as DONTE?BLEA [phone] [address] 2022-04-06 2022-04-06 [facility] 1.2.840.114 [id number] Univers 00:00:00 00:00:00 [facility] HEALTH 350.1.13.10 it y of [place] 4.2.7.2.686 Henry as DONTE?BLEA [phone] [address] 2022-04-06 2022-04-06 [facility] 1.2.840.114 [id number] Univers 00:00:00 00:00:00 [facility] HEALTH 350.1.13.10 it y of Edward [place] 4.2.7.2.686 Henry as DONTE?BLEA [phone] [address] OFFICE [facility] 2022-04-06 2022-04-06 [facility] 1.2.840.114 [id number] Univers 00:00:00 00:00:00 Arik HEALTH 350.1.13.10 it y of Edward [place] 4.2.7.2.686 Henry as DONTE?BLEA [phone] [address] OFFICE [facility] 2022-04-03 2022-04-03 Orders Doctor MARTINEZ 1.2.840.114 [id number] Univers 00:00:00 00:00:00 Only Unassigned, SHAYY 350.1.13.[address] [facility] 4.2.7.2.686 Henry as [phone] [address] 2022-03-29 2022-03-29 [facility] 1.2.840.114 [id number] Univers 00:00:00 00:00:00 [facility] 350.1.13.10 it y of Edward [place] 4.2.7.2.686 Henry as DONTE?BLEA [phone] [address] MEDICAL OFFICE [facility] 2022-03-21 2022-03-21 [facility] 1.2.840.114 [id number] Univers 00:00:00 00:00:00 [facility] 350.1.13.10 it y of Edward [place] 4.2.7.2.686 Henry as DONTE?BLEA [phone] [address] OFFICE [facility] 2022-03-17 2022-03-17 Patient [facility] 1.2.840.114 [id number] Univers 00:00:00 00:00:00 Secure Ms Emilia [facility] 350.1.13.10 ity of [place] 4.2.7.2.686 Henry as DONTE?BLEA [id number] [address] OFFICE [facility] 2022-03-16 2022-03-16 [facility] 1.2.840.114 [id number] Univers 00:00:00 00:00:00 [facility] 350.1.13.10 it y of Edward [place] 4.2.7.2.686 Henry as DONTE?BLEA [id number] [address] OFFICE [facility] 2022-03-16 2022-03-16 [facility] 1.2.840.114 [id number] Univers 00:00:00 00:00:00 [facility] 350.1.13.10 it y of Edward [place] 4.2.7.2.686 Henry as DONTE?BLEA [id number] [address] OFFICE [facility] 2022-03-16 2022-03-16 Patient [facility] 1.2.840.114 [id number] Univers 00:00:00 00:00:00 [facility] 350.1.13.10 ity of [place] 4.2.7.2.686 Henry as DONTE?BLEA [phone] [address] OFFICE [facility] 2022-03-13 2022-03-13 Patient [facility] 1.2.840.114 [id number] Univers 00:00:00 00:00:00 Secure Msg Arik HEALTH 350.1.13.10 ity of [place] 4.2.7.2.686 Henry as DONTE?BLEA [phone] [address] OFFICE [facility] 2022-03-13 2022-03-13 Telephone [facility] 1.2.840.114 [id number] Univers 00:00:00 00:00:00 [facility] 350.1.13.10 it y of [place] 4.2.7.2.686 Henry as DONTE?BLEA [phone] [address] OFFICE [facility] 2022-03-13 2022-03-13 Refill [facility] 1.2.840.114 [id number] Univers 00:00:00 00:00:00 [facility] 350.1.13.10 it y of [place] 4.2.7.2.686 Henry as DONTE?BLEA [phone] [address] OFFICE [facility] 2022-03-11 2022-03-11 JUAN Jackson 1.2.840.114 [id number] Univers 00:00:00 00:00:00 (Out) Helen GARAY 350.1.13.10 it y of HOSPITAL 4.2.7.2.686 Henry as [phone] [address] 2022-03-10 2022-03-10 Emergency X RONEN [facility] ERT [id number] Univers 17:24:00 23:18:00 KEITH ellis of [facility] 2022-03-10 2022-03-10 Emergency Darryn Owusu [facility] 1.2.840. 114 [id number] Univers 17:24:00 23:18:00 Keith Yi 350.1.13.10 ity of [facility] 4.2.7.2.686 [place] [phone] [facility] [address] 2022-03-10 2022-03-10 Refill [facility] 1.2.840.114 [id number] Univers 00:00:00 00:00:00 [facility] 350.1.13.10 it y of Edward [facility] 4.2.7.2.686 Henry as DONTE?BLEA [phone] [address] MEDICAL OFFICE [facility] 2022-02-23 2022-02-23 [facility] 1.2.840.114 [id number] Univers 00:00:00 00:00:00 Arik [facility] 350.1.13.10 it y of [place]st[place] [facility]ERSON[facility]ZO [facility] 4.2.7.2.686 Henry as DONTE?BLEA [phone] [address] MEDICAL OFFICE [facility] 2022-01-27 2022-01-27 Outpatient R [facility] [id number] [facility] 11:30:00 12:50:55 ARIK ity of [facility] 2022-01-27 2022-01-27 Office [facility] 1.2.840.114 [id number] [facility] 11:30:00 12:50:55 Visit [facility] 350.1.13.10 it y of [place] 4.2.7.2.686 Henry as DONTE?BLEA [id number] [address] MEDICAL OFFICE [facility] 2022-01-27 2022-01-27 Orders Doctor MARTINEZ 1.2.840.114 [id number] Univers 00:00:00 00:00:00 Only Unassigned, SHAYY 350.1.13.10 ity of [place] [facility] 4.2.7.2.686 Henry as [phone] [facility] [address] 2022-01-26 2022-01-26 Outpatient R [facility] [id number] Univers 13:00:00 13:00:00 ity of [facility] 2022-01-26 2022-01-26 Patient [facility] 1.2.840.114 [id number] Univers 00:00:00 00:00:00 Secure Msg Arik TREVIZO 350.1.13.10 ity of [place] 4.2.7.2.686 [place] [phone] [address] 2022-01-26 2022-01-26 Telephone [facility] 1.2.840.114 [id number] Univers 00:00:00 00:00:00 Arik HEALTH 350.1.13.10 it y of Edward [place] 4.2.7.2.686 Henry as DONTE?BLEA [phone] [address] 2022-01-23 2022-01-23 [facility] 1.2.840.114 [id number] Univers 00:00:00 00:00:00 Arik HEALTH 350.1.13.10 it y of Edward [place] 4.2.7.2.686 Henry as DONTE?BLEA [phone] [address] 2022-01-22 2022-01-22 Patient [facility] 1.2.840.114 [id number] Univers 00:00:00 00:00:00 Secure Msg Arik TREVIZO 350.1.13.10 ity of [place] 4.2.7.2.686 [place] [phone] [address] 2022-01-20 2022-01-20 [facility] 1.2.840.114 [id number] Univers 00:00:00 00:00:00 Arik HEALTH 350.1.13.10 it y of Edward [place] 4.2.7.2.686 Henry as DONTE?BLEA [id number] [address] 2022-01-19 2022-01-19 [facility] 1.2.840.114 [id number] Univers 00:00:00 00:00:00 Arik HEALTH 350.1.13.10 it y of Edward [place] 4.2.7.2.686 Henry as DONTE?BLEA [id number] [address] OFFICE [facility] 2022-01-19 2022-01-19 Patient [facility] 1.2.840.114 [id number] Univers 00:00:00 00:00:00 Secure Msg Arik HEALTH 350.1.13.10 ity of [place] [facility] 4.2.7.2.686 Henry as DONTE?BLEA [id number] [address] OFFICE [facility] 2022-01-08 2022-01-08 Telephone [facility] 1.2.011.791 [id number] Univers 00:00:00 00:00:00 Onel HEALTH 350.1.13.10 it y of [place] 4.2.7.2.686 [place] as DONTE?BLEA 796.7564350 [address] 2022-01-08 2022-01-08 Orders Doctor JUAN 1.2.840.114 [id number] Univers 00:00:00 00:00:00 Only Unassigned, SHAYY 350.1.13.10 ity of [place] [facility]ITAL 4.2.7.2.686 Henry as [phone] [address] 2021-12-23 2021-12-23 Telephone [facility] 1.2.840.114 [id number] Univers 00:00:00 00:00:00 Arik HEALTH 350.1.13.10 it y of Edward [facility] 4.2.7.2.686 Henry as DONTE?BLEA [id number] [address] 2021-12-23 2021-12-23 Orders Doctor JUAN 1.2.840.114 [id number] Univers 00:00:00 00:00:00 Only Unassigned, SHAYY 350.1.13.10 ity of [place] HOSPITAL 4.2.7.2.686 Henry as [id number] [address] 2021-12-22 2021-12-22 Refill [facility] 1.2.840.114 [id number] Univers 00:00:00 00:00:00 [facility] 350.1.13.10 it y of Edward [place] 4.2.7.2.686 Henry as DONTE?BLEA [id number] [address] MEDICAL OFFICE BUILDING 2021-12-22 2021-12-22 Telephone [facility] 1.2.840.114 [id number] Univers 00:00:00 00:00:00 Arik HEALTH 350.1.13.10 it y of Edward [place] 4.2.7.2.686 Henry as DONTE?BLEA [id number] [address] MEDICAL OFFICE BUILDING 2021-12-22 2021-12-22 Patient [facility] 1.2.840.114 [id number] Univers 00:00:00 00:00:00 Secure Msg Arik HEALTH 350.1.13.10 ity of Edward [place] 4.2.7.2.686 Henry as DONTE?BLEA [phone] [address] MEDICAL OFFICE [facility] 2021-12-04 2021-12-04 Refill [facility] 1.2.840.114 [id number] Univers 00:00:00 00:00:00 Arik HEALTH 350.1.13.10 it y of Edward [place] 4.2.7.2.686 Henry as DONTE?BLEA [id number] [address] OFFICE [facility] 2021-11-26 2021-11-26 Outpatient R KIZZY SANTOS [facility] [id number] Univers 13:20:00 16:16:11 KIZZY SANTOS y of [facility] 2021-11-26 2021-11-26 [facility] 1.2.840.114 [id number] Univers 13:20:00 16:16:11 Visit MULTISPEC 350.1.13.10 ity of [place]2.7.2.686 [place] [id number] [address] [facility] 2021-11-26 2021-11-26 Outpatient R KIZZY SANTOS [facility] [id number] Univers 13:20:00 16:16:11 KIZZY SANTOS it y of [facility] 2021-11-26 2021-11-26 Outpatient R KIZZY SANTOS [facility] [id number] Univers 13:20:00 13:20:00 KIZZY SANTOS it y of [facility] 2021-11-26 2021-11-26 Refill [facility] 1.2.840.114 [id number] Univers 00:00:00 00:00:00 Arik HEALTH 350.1.13.10 it y of Edward [place] 4.2.7.2.686 Henry as DONTE?BLEA [id number] [address] MEDICAL OFFICE [facility] 2021-11-25 2021-11-25 Emergency [facility] ERT [id number] Univers 14:54:00 15:38:00 CHRISTOPHER it y of [facility] 2021-11-25 2021-11-25 [facility] 1.2.038.833 [id number] Univers 14:54:00 15:38:00 Christopher [place] 350.1.13.10 ity of [place] 4.2.7.2.686 [place] [facility] [phone] [address] 2021-11-25 2021-11-25 Telephone [facility] 1.2.840.114 [id number] Univers 00:00:00 00:00:00 Arik HEALTH 350.1.13.10 it y of Edward [facility] 4.2.7.2.686 Henry as DONTE?BLEA [id number] [address] OFFICE [facility] 2021-11-25 2021-11-25 Patient [facility] 1.2.840.114 [id number] Univers 00:00:00 00:00:00 Secure Msg Arik HEALTH 350.1.13.10 ity of [place] 4.2.7.2.686 Henry as DONTE?BLEA [id number] [address] 2021-11-18 2021-11-18 Outpatient R DEMAR [facility] [id number] Univers 14:00:00 14:24:37 ARIK ity of [facility] 2021-11-18 2021-11-18 [facility] 1.2.840.114 [id number] Univers 14:00:00 14:15:00 Visit [facility] 350.1.13.10 it y of [place] 4.2.7.2.686 Henry as DONTE?BLEA [phone] [address] OFFICE [facility] 2021-11-18 2021-11-18 Out[facility] [id number] Univers 14:00:00 14:00:[address] [facility] [place] [place] 2021-11-11 2021-11-11 Outpatient [facility] [id number] Univers 13:30:00 13:30:00 [facility] 2021-11-03 2021-11-03 [facility] 1.2.840.114 [id number] Univers 00:00:00 00:00:00 [facility] 350.1.13.10 it y of Jonathan [place] 4.2.7.2.686 Henry as DONTE?BLEA [phone] [address] OFFICE [facility] 2021-10-27 2021-10-27 Patient [facility] 1.2.840.114 [id number] Univers 00:00:00 00:00:00 Secure Msg Nieto [facility] 350.1.13.10 ity of [place] 4.2.7.2.686 Henry as DONTE?BLEA [phone] [address] 2021-10-15 2021-10-15 [facility] 1.2.840.114 [id number] Univers 00:00:00 00:00:00 Arik [place] 350.1.13.10 i ty of [place].2.7.2.686 [place] [id number] [address] 2021-10-14 2021-10-14 Outpatient R [facility] [id number] Univers 14:00:00 14:00:[address] [facility] 2021-10-09 2021-10-09 [facility] 1.2.840.114 [id number] Univers 00:00:00 00:00:00 [facility] 350.1.13.10 it y of Edward [place] 4.2.7.2.686 Henry as DONTE?BLEA [phone] Tn dread MELVIN 044 [facility] OFFICE [facility] 2021-10-08 2021-10-08 [facility] 1.2.840.114 [id number] Univers 00:00:00 00:00:00 [facility] HEALTH 350.1.13.10 it y of Edward [place] 4.2.7.2.686 Henry as DONTE?BLEA [phone] Tn dread MELVIN [address] [place] [address] OFFICE [facility] 2021-10-07 2021-10-07 [facility] 1.2.840.114 [id number] Univers 00:00:00 00:00:00 [facility] 350.1.13.10 it y of Edward [place] 4.2.7.2.686 Henry as DONTE?BLEA [phone] Tn dread MELVIN [address] [place] [address] OFFICE [facility] 2021-10-02 2021-10-02 [facility] 1.2.840.114 [id number] Univers 00:00:00 00:00:00 [facility] 350.1.13.10 it y of Edward [place] 4.2.7.2.686 Henry as DONTE?BLEA [phone] Tn dread MELVIN 044 [facility] OFFICE [facility] 2021-09-18 2021-09-18 Outpatient Campos MCCLAIN [facility] [id number] Univers 13:13:16 23:59:[address] [facility] [place] 2021-09-18 2021-09-18 Office [facility] [id number] Univers 14:30:00 15:00:00 Visit [facility] [id number] it y of [place] [id number] Henry as DONTE?BLEA [phone] Tn dread MELVIN 198 [facility] OFFICE [facility] 2021-09-18 2021-09-18 Outpatient Campos MCCLAIN [facility] [id number] Univers 14:30:00 14:03:[address] [facility] [place] [place] 2021-09-18 2021-09-18 Outpatient R SARAHI [facility] [id number] Univers 14:30:00 14:03:[address] [facility] [place] [place] 2021-09-18 2021-09-18 Outpatient R AMIE [facility] [id number] Univers 11:00:00 11:00:[address] [facility] [place] [place] 2021-09-18 2021-09-18 [facility] [id number] Univers 11:00:00 [facility]00[facility] [place] [place] 2021-09-17 2021-09-17 [facility] [id number] Univers 00:00:00 00:00:00 [facility] [id number] ity of [place] [id number] Henry as DONTE?BLEA [phone] [address] OFFICE [facility] 2021-09-12 2021-09-12 [facility] [id number] Univers 00:00:00 00:00:00 [facility] [id number] it y of [place] [id number] Henry as DONTE?BLEA [phone] [address] OFFICE [facility] 2021-09-11 2021-09-11 Outpatient R SOLOMON [facility] [id number] Univers 14:00:00 14:00:[address] [facility] [place] [place] 2021-09-11 2021-09-11 Outpatient R SOLOMON [facility] [id number] Univers 14:00:00 14:00:[address] [facility] [place] [place] 2021-09-11 2021-09-11 Refdb [facility] 1.2.840.114 [id number] Univers 00:00:00 00:00:00 [facility] 350.1.13.10 it y of Edward [place] 4.2.7.2.686 Henry as DONTE?BLEA [phone] Tn dread MELVIN 044 [facility] OFFICE [facility] 2021-09-11 2021-09-11 Refill [facility] 1.2.840.114 [id number] Univers 00:00:00 00:00:00 [facility] 350.1.13.10 it y of [place] 4.2.7.2.686 Henry as DONTE?BLEA [phone] Tn draed MELVIN [address] [place] [address] OFFICE [facility] 2021-09-10 2021-09-10 Outpatient Campos HOLLOWAY [facility] [id number] Univers 15:00:00 15:00:00 [facility] 2021-09-10 2021-09-10 Outpatient Campos HOLLOWAY [facility] [id number] Univers 15:00:00 15:00:00 [facility] 2021-09-03 2021-09-03 Outpatient Campos INGRAM [facility] [id number] Univers 13:30:00 13:30:[address] 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, [facility] 1.2.840.1 14 [id number] Univers 14:00:00 14:15:00 Visit Arik Benz [facility] 350.1.13 .10 ity of [place] 4.2.7.2.686 Henry as DONTE?BLEA [phone] Tn dread MELVIN 353 [facility] OFFICE [facility] 2021-08-26 2021-08-26 Office [facility] 1.2.840.114 [id number] Univers 13:15:00 14:12:01 Visit Arik [facility] 350.1.13.10 it y of [place] 4.2.7.2.686 Henry as DONTE?BLEA [phone] Tn dread MELVIN [address] [place] [address] OFFICE [facility] 2021-08-26 2021-08-26 Outpatient Campos BENZ [facility] [id number] Univers 13:15:00 14:12:[address] [facility] 2021-08-26 2021-08-26 Outpatient Campos BENZ [facility] [id number] Univers 14:00:00 14:00:[address] [facility] [place] [place] 2021-08-26 2021-08-26 Outpatient Campos BENZ [facility] [id number] Univers 13:15:00 13:15:[address] [facility] [place] [place] 2021-08-21 2021-08-21 Patient Avinash [facility] 1.2.840.114 [id number] Univers 00:00:00 00:00:00 Secure Msstephanie Nieto [facility] 350.1.13.10 ity of [place] 4.2.7.2.686 Henry as DONTE?BLEA [id number] [address] OFFICE [facility] 2021-08-19 2021-08-19 Outpatient Campos BENZ [facility] [id number] Univers 08:00:00 08:00:[address] [facility] [place] [place] 2021-08-19 2021-08-19 Refill Doctor [facility] 1.2.840.114 [id number] Univers 00:00:00 00:00:00 [facility] 350.1.13.10 ity of [place] 4.2.7.2.686 Henry as DONTE?BLEA [id number] [address] 2021-08-19 2021-08-19 Telephone Demar [facility] 1.2.840.114 [id number] Univers 00:00:00 00:00:00 [facility] 350.1.13.10 it y of [place] 4.2.7.2.686 Henry as DONTE?BLEA [phone] [address] 2021-08-11 2021-08-11 Outpatient Campos BENZ [facility] [id number] Univers 15:00:00 15:00:[address] [facility] [place] [place] 2021-08-08 2021-08-08 Outpatient Campos BENZ [facility] [id number] Univers 15:00:00 15:00:[address] [facility] [place] [place] 2021-07-29 2021-07-29 Outpatient Campos BENZ [facility] [id number] Univers 13:00:00 13:00:[address] [facility] 2021-07-21 2021-07-21 [facility] 1.2.840.114 [id number] Univers 00:00:00 00:00:00 [facility] 350.1.13.10 it y of [place] 4.2.7.2.686 Henry as DONTE?BLEA [phone] Tn josianetn CAROLYNN[address] MEDICAL OFFICE BUILDING 2021-07-09 2021-07-09 [facility] [id number] Univers 13:00:00 13:00:00 [facility] 2021-07-09 2021-07-09 [facility] [id number] Univers 13:00:00 13:00:00 [facility] 2021-07-09 2021-07-09 Outpatient [facility] [id number] Univers 13:00:00 13:00:00 [facility] 2021-07-09 2021-07-09 [facility] [id number] Univers 13:00:00 13:00:00 [facility] 2021-06-24 2021-06-24 Orders Doctor JUAN 1.2.840.114 [id number] Univers 00:00:00 00:00:00 Only Unassigned, SHAYY 350.1.13.10 ity of [place] [facility] 4.2.7.2.686 Henry as [phone] [address] 2021-05-22 2021-05-22 [facility] 1.2.840.114 [id number] Univers 00:00:00 00:00:00 [facility] 350.1.13.10 it y of [place] 4.2.7.2.686 Henry as PROFESSIO [phone] Tn josiane[address] OFFICE BUILDING ONE 2021-05-17 2021-05-17 [facility] 1.2.840.114 [id number] Univers 00:00:00 00:00:00 [facility] 350.1.13.10 it y of Jonathan [place] 4.2.7.2.686 Henry as PROFESSIO [phone] Tn dical NAL [address] OFFICE BUILDING ONE 2021-05-13 2021-05-13 Patient Demar [facility] 1.2.840.114 [id number] Univers 00:00:00 00:00:00 Secure [facility] 350.1.13.10 ity of Jonathan ANDERSONABRAZO [facility] 4.2.7.2.686 Henry as DONTE?BLEA [phone] Tn dical KNEY [address] MEDICAL OFFICE BUILDING 2021-05-09 2021-05-09 Transition KALYANI Rosenberg 1.2.840.114 [id number] Univers 00:00:00 00:00:00 of Care Trinidad WILLS 350.1.13.10 i ty of [place]2.7.2.[place] [id number] [address] 2021-05-04 2021-05-08 [facility] [id number] Univers 19:48:00 14:30:[address] [facility] [place] [place] 2021-05-04 2021-05-08 [facility] Sean Meléndez 1.2.840. 114 [id number] Univers 19:48:00 14:30:00 Encounter Michelle Rivera 350.1.13 .10 ity of [facility] 4.2.7.2.686 Yoko Cheema [phone] [place] 915559 [place] 2021-05-04 2021-05-08 Inpatient X [facility] MARGIE [id number] Univers 19:48:00 14:30:[address] [facility] [place] [place] 2021-05-07 2021-05-07 Outpatient R DEMAR [facility] [id number] Univers 15:00:00 15:00:[address] [facility] [place] [place] 2021-05-01 2021-05-01 Outpatient R SOLOMON [facility] [id number] Univers 09:30:00 09:30:[address] [facility] [place] [place] 2021-04-30 2021-04-30 Patient Juma Mcdaniels [facility] 1.2.840.114 [id number] Univers 00:00:00 00:00:00 Secure Msg JOSE 350.1.13.10 ity of [place]2.7.2.[place] [phone] [place] [address] [place] 2021-04-29 2021-04-29 Outpatient R JUMA MCDANIELS [facility] [id number] Univers 16:00:00 16:00:[address] [facility] [place] 2021-04-25 2021-04-25 Outpatient R JUMA MCDANIELS [facility] [id number] Univers 14:00:00 14:00:[address] [facility] [place] [place] 2021-04-25 2021-04-25 [address] [facility] [facility] [id number] Univers 13:00:00 13:00:[address] [facility] 2021-04-24 2021-04-24 [facility] 1.2.840.114 [id number] Univers 00:00:00 00:00:00 Secure Msg [facility] 350.1.13.10 ity of [place] 4.2.7.2.686 Henry as DONTE?BLEA [phone] [address] OFFICE [facility] 2021-04-24 2021-04-24 [facility] 1.2.840.114 [id number] Univers 00:00:00 00:00:00 [facility] 350.1.13.10 it y of [place] 4.2.7.2.686 Henry as DONTE?BLEA [id number] [address] OFFICE [facility] 2021-04-09 2021-04-09 Outpatient Davar_P VFP VFP [id number] Village 03:51:00 03:51:00 [id number] Family Practic e 2021-04-08 2021-04-08 Patient [facility] 1.2.840.114 [id number] Univers 00:00:00 00:00:00 Secure Msg [facility] 350.1.13.10 ity of [place] 4.2.7.2.686 Henry as DONTE?BLEA [phone] Tn dread MELVIN 044 [facility] OFFICE [facility] 2021-04-02 2021-04-02 Outpatient R HECTORGERSONGAGE [facility] [id number] Univers 14:00:00 14:29:25 [facility] 2021-04-02 2021-04-02 Office [facility] 1.2.840.114 [id number] Univers 14:00:00 14:15:00 Visit [facility] 350.1.13.10 it y of Jonathan [place] 4.2.7.2.686 Henry as DONTE?BLEA [phone] Tn dread PRADHAN[address] 2021-04-02 2021-04-02 Outpatient R DEMAR [facility] [id number] Univers 14:00:00 14:00:00 [facility] 2021-04-02 2021-04-02 Outpatient R DEMAR [facility] [id number] Univers 14:00:00 14:00:00 [facility] 2021-04-02 2021-04-02 Outpatient R [facility] [id number] Univers 14:00:00 14:00:00 [facility] 2021-04-01 2021-04-01 Telephone [facility] 1.2.840.114 [id number] Univers 00:00:00 00:00:00 Oliva TREVIZO 350.1.13.10 i ty of [place] 4.2.7.2.686 [place] [phone] Tn dread [facility] [address] [facility] 2021-03-30 2021-03-30 Nurse JUAN Darnell 1.2.840.114 [id number] Univers 00:00:00 00:00:00 Triage Dakotah GARAY 350.1.13.10 ity of [facility] 4.2.7.2.686 Henry as [phone] [address] 2021-03-28 2021-03-28 Outpatient R [facility] [id number] Univers 10:30:00 10:30:00 [facility] 2021-03-27 2021-03-27 Outpatient R [facility] [id number] Univers 15:00:00 15:00:[address] [facility] [place] [place] 2021-03-27 2021-03-27 Patient Ad, [facility] 1.2.840.114 [id number] Univers 00:00:00 00:00:00 Secure Msg Elle TREVIZO 350.1.13.10 ity of [place] 4.2.7.2.686 [place] PROFESSIO [phone] Tn dical NAL [address] [place] [address] 2021-03-27 2021-03-27 Case Ad, [facility] 1.2.840.114 [id number] Univers 00:00:00 00:00:00 Management Elle TREVIZO 350.1.13.10 ity of [place] 4.2.7.2.686 [place] PROFESSIO [id number] Tn dical NAL [address] [place] [address] 2021-03-25 2021-03-25 Outpatient R [facility], [facility] [id number] Univers 15:15:00 15:15:[address] [facility] [place] [place] 2021-03-23 2021-03-24 Inpatient X [facility] [id number] Univers 06:56:00 17:35:[address] [facility] [place] [place] 2021-03-23 2021-03-24 [facility] 1.2.840.114 [id number] Univers 06:56:00 17:35:00 Encounter Elle TREVIZO 350.1.13.10 ity of [place] 4.2.7.2.686 [facility] [phone] [address] 2021-03-23 2021-03-23 Anesthesia [facility] 1.2.840.114 [id number] Univers 12:00:00 19:29:00 Event Subhash TREVIZO 350.1.13.10 i ty of [facility] 4.2.7.2.686 [facility] [phone] [address] 2021-03-23 2021-03-23 Inpatient X [facility], [facility] [id number] Univers 06:56:00 06:56:[address] [facility] [place] [place] 2021-03-23 2021-03-23 Nurse JUAN Cortes 1.2.840.114 [id number] Univers 00:00:00 00:00:00 Triage Renetta Ochoa SHAYY 350.1.13.10 it y of HOSPITAL 4.2.7.2.686 [place] as [id number] [facility] [address] 2021-03-23 2021-03-23 Orders Doctor JUAN 1.2.840.114 [id number] Univers 00:00:00 00:00:00 Only Unassigned, SHAYY 350.1.13.10 ity of [place] HOSPITAL 4.2.7.2.686 Henry as [phone] [address] 2021-03-14 2021-03-14 Outpatient R AD, [facility] [id number] Univers 15:30:00 16:54:39 [facility] 2021-03-14 2021-03-14 [facility] 1.2.840.114 [id number] Univers 15:30:00 16:54:39 Elle TREVIZO 350.1.13.10 ity of Visit [place] 4.2.7.2.686 [place] PROFESSIO [id number] Tn dical [address] 2021-03-14 2021-03-14 Outpatient R AD, [facility] [id number] Univers 15:30:00 15:30:[address] [facility] [place] [place] 2021-03-12 2021-03-12 Outpatient P [facility] [id number] Univers 15:00:00 15:00:[address] [facility] [place] [place] 2021-03-12 2021-03-12 Patient Doctor JUAN 1.2.840.114 [id number] Univers 00:00:00 00:00:00 Secure Msg Unassigned, SHAYY 350.1.13.10 ity of [place] HOSPITAL 4.2.7.2.686 [place] as [phone] [address] 2021-03-11 2021-03-11 Outpatient [facility] [id number] Univers 13:15:00 13:15:[address] [facility] 2021-03-11 2021-03-11 Outpatient R [facility] [id number] Univers 13:15:00 13:15:[address] [facility] 2021-03-11 2021-03-11 Office [facility] 1.2.840.114 [id number] Univers 10:30:59 10:45:59 Visit [facility] 350.1.13.10 it y of st[place] 4.2.7.2.686 Henry as DONTE?BLEA [phone] Tn dicdhruv PRADHANEY [address] MEDICAL OFFICE BUILDING 2021-03-09 2021-03-09 Outpatient X JUMA MCDANIELS [facility] [id number] Univers 09:27:00 12:30:00 ity of [facility] 2021-03-09 2021-03-09 Emergency Juma Mcdaniels [facility] 1.2.840.114 [id number] Univers 09:27:00 12:30:00 JOSELINE 350.1.13.10 i ty of [place] 4.2.7.2.686 [place] [id number] [facility] [address] 2021-03-09 2021-03-09 Nurse JUAN Cortes 1.2.840.114 [id number] Univers 00:00:00 00:00:00 Triage Renetta Ochoa SHAYY 350.1.13.10 it y of [facility] 4.2.7.2.686 Henry as [id number] [facility] [address] 2021-03-07 2021-03-07 [facility] 1.2.840.114 [id number] Univers 15:34:54 16:24:15 Elle TREVIZO 350.1.13.10 ity of Visit [place] 4.2.7.2.686 [place] [facility] [phone] Tn dicdhruv NAL [address] [facility] 2021-03-07 2021-03-07 Outpatient [facility] [id number] Univers 15:30:00 16:24:[address] [facility] [place] [place] 2021-03-07 2021-03-07 Refill [facility] 1.2.840.114 [id number] Univers 00:00:00 00:00:00 [facility] 350.1.13.10 it y of Jonathan ANDERSONABRAZO [facility] 4.2.7.2.686 [place] as DONTE?BLEA [phone] [address] MEDICAL OFFICE [facility] 2021-03-06 2021-03-06 Refill [facility] 1.2.840.114 [id number] Univers 00:00:00 00:00:00 [facility] 350.1.13.10 it y of Jonathan ANDERSONABRAZO [facility] 4.2.7.2.686 Henry as DONTE?BLEA [phone] [address] OFFICE [facility] 2021-03-04 2021-03-04 Outpatient P CHLOE REESE [facility] [id number] Univers 00:27:00 14:38:00 ity of [facility] 2021-03-04 2021-03-04 [facility] Chloe Reese [facility] 1.2.840.114 [id number] Univers 00:27:00 14:38:00 Encounter Cam JOSELINE 350.1.13.10 ity of [place] 4.2.7.2.686 [place] [phone] [facility] [address] [place] [address] 2021-02-27 2021-02-27 Refill [facility], [facility] 1.2.840.114 [id number] Univers 00:00:00 00:00:00 Elle L [place] 350.1.13.10 ity of [facility] 4.2.7.2.686 [place] [id number] [address] 2021-02-27 2021-02-27 Refill Ad, [facility] 1.2.840.114 [id number] Univers 00:00:00 00:00:00 Elle L [place] 350.1.13.10 ity of [place] 4.2.7.2.686 [place] [phone] [address] 2021-02-27 2021-02-27 Refill Ad, [facility] 1.2.840.114 [id number] Univers 00:00:00 00:00:00 Elle TREVIZO 350.1.13.10 ity of [facility] 4.2.7.2.686 [place] [id number] Tn dical [facility] [address] [facility] 2021-02-26 2021-02-26 Outpatient P AD, [facility] [id number] Univers 12:08:00 18:00:00 ELLE ity of [facility] 2021-02-26 2021-02-26 [facility] 1.2.840.114 [id number] Univers 12:08:00 18:00:00 Encounter Elle TREVIZO 350.1.13.10 ity of [place] 4.2.7.2.[place] [id number] [address] 2021-02-26 2021-02-26 Outpatient [facility] [id number] Univers 16:00:00 16:00:00 ELLE ity of [facility] 2021-02-26 2021-02-26 Telephone [facility] 1.2.721.259 [id number] Univers 00:00:00 00:00:00 Elle TREVIZO 350.1.13.10 ity of [place] 4.2.7.2.686 [place]ESS[place] [id number] [address] 2021-02-14 2021-02-14 Telephone [facility] 1.2.840.114 [id number] Univers 00:00:00 00:00:00 [facility] 350.1.13.10 it y of Jonathan ANDERSONABRAZO [facility] 4.2.7.2.686 [place] as DONTE?BLEA [phone] [address] MEDICAL OFFICE [facility] 2021-02-07 2021-02-07 Routine [facility] 1.2.840.114 [id number] Univers 15:39:01 16:45:30 Elle TREVIZO 350.1.13.10 ity of Visit [place] 4.2.7.2.686 [place]ESS[place] [phone] Tn dic[address] 2021-02-07 2021-02-07 Outpatient R AD, [facility] [id number] Univers 15:30:00 16:45:[address] [facility] [place] [place] 2021-02-06 2021-02-06 Outpatient R ADELEANOR, [facility] [id number] Univers 16:00:00 16:00:[address] 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 4.2.7.2.686 [place] as DONTE?BLEA [id number] [facility] KNEY [address] MEDICAL OFFICE [facility] 2021-02-03 2021-02-03 Outpatient R AD, [facility] [id number] Univers 13:30:00 13:30:[address] [facility] [place] [place] 2021-02-03 2021-02-03 Telephone [facility] 1.2.840.114 [id number] [facility] 00:00:00 00:00:00 [facility] 350.1.13.10 it y of [place] 4.2.7.2.686 Henry as DONTE?BLEA [phone] Tn dicdhruv PRADHAN [address] MEDICAL OFFICE [facility] 2021-01-31 2021-01-31 Outpatient P ADELEANOR, [facility] [id number] Univers 16:16:00 17:53:[address] [facility] [place] [place] 2021-01-31 2021-01-31 Hospital [facility] 1.2.840.114 [id number] Univers 16:16:00 17:53:00 Encounter Elle TREVIZO 350.1.13.10 ity [facility] 4.2.7.2.686 [place] [id number] [facility] [address] 2021-01-31 2021-01-31 Outpatient Campos BENZ [facility] [id number] Univers 10:30:00 10:30:[address] [facility] [place] [place] 2021-01-30 2021-01-30 Telephone [facility] 1.2.637.906 [id number] Univers 00:00:00 00:00:00 Elle Candace TREVIZO 350.1.13.10 ity of [facility] 4.2.7.2.686 [place] [phone] Tn dictn NAL [address] [facility] 2021-01-30 2021-01-30 [facility] 1.2.840.114 [id number] Univers 00:00:00 00:00:00 [facility] 350.1.13.10 it y of Edward [place] 4.2.7.2.686 Henry as PROFESSIO [id number] [facility] [address] OFFICE [facility] ONE 2021-01-29 2021-01-29 [facility] 1.2.840.114 [id number] Univers 00:00:00 00:00:00 [facility] 350.1.13.10 it y of Edward [place] 4.2.7.2.686 Henry as PROFESSIO [phone] [facility] 044 [facility] ONE 2021-01-27 2021-01-27 Outpatient Campos INGRAM [facility] [id number] Univers 13:00:00 13:00:[address] [facility] [place] [place] 2021-01-27 2021-01-27 [facility] 1.2.840.114 [id number] Univers 00:00:00 00:00:00 [facility] 350.1.13.10 it y of [place] 4.2.7.2.686 Henry as PROFESSIO [phone] [address] ONE 2021-01-23 2021-01-23 Outpatient R LEXIE [facility] [id number] Univers 16:00:00 17:27:[address] [facility] [place] [place] 2021-01-23 2021-01-23 Routine Adum, [facility] 1.2.840.114 [id number] Univers 15:56:29 17:27:00 Elle TREVIZO 350.1.13.10 ity of Visit [place] 4.2.7.2.686 [place] [phone] Tn dical NAL [address] [place] [address] 2021-01-21 2021-01-21 Outpatient R AD, [facility] [id number] Univers 16:00:00 16:00:00 ELLE ity of [facility] 2021-01-17 2021-01-17 Telephone Ad, [facility] 1.2.178.307 [id number] Univers 00:00:00 00:00:00 Elle Maria Revelo 350.1.13.10 ity of [place]2.7.2.686 [place] Profess[place] [id number] Tn dical nal [address] [place] [address] 2021-01-17 2021-01-17 Patient Adum, [facility] [id number] Univers 00:00:00 00:00:00 Secure Msg Elle Maria Revelo [id number] it[id number] [phone] Tn dical [place]al [address] [place] [address] 2021-01-15 2021-01-15 [facility] 1.2.840.114 [id number] Univers 00:00:00 00:00:00 [facility] [id number] [facility] [id number] [place] Professio [phone] Tn dical nal [address] [place] [address] One 2021-01-13 2021-01-13 Refill [facility] 1.2.840.114 [id number] Univers 00:00:00 00:00:00 Elle Trevizo [id number] [id number] [phone] Tn dical [place]al [address] [place] [address] 2021-01-02 2021-01-02 Telephone Adum, [facility] [id number] Univers 00:00:00 00:00:00 Elle [place] [id number] it[id number] [phone] Tn dical nal [address] [facility] 2021-01-02 2021-01-02 Orders Doctor JUAN 1.2.840.114 [id number] Univers 00:00:00 00:00:00 Only Unassigned, SHAYY 350.1.13.10 ity of [place] [facility] 4.2.7.2.686 [place] as [phone] [address] 2021-01-01 2021-01-01 Telephone Adum, [facility] 1.2.005.855 [id number] Univers 00:00:00 00:00:00 Elle Maria Revelo [id number] [id number] [phone] Tn dical nal 134 [facility] 2021-01-01 2021-01-01 Refill [facility] CENTER 1.2.840.114 [id number] Univers 00:00:00 00:00:00 Unassigned, Health 350.1.13.10 ity of [place] 4.2.7.2.686 [place] as Professio [phone] Tn dical nal [address] [facility] One 2020-12-24 2020-12-24 Laboratory Only, Ang Db Test [place] 1.2.8 40.114 [id number] Univers 17:40:30 17:55:30 Only Adum, Elle L Health 350.1.13.10 ity of [place] 4.2.7.2.686 [place] as Donte?Blea [phone] Tn dical kney [address] 2020-12-24 2020-12-24 Routine Adum, [facility] 1.2.840.114 [id number] Univers 16:33:12 17:22:08 Elle Maria [place] 350.1.13.10 ity of Visit [place] [phone] Tn dical nal 134 [facility] 2020-12-24 2020-12-24 Outpatient [facility] [id number] Univers 16:00:00 16:00:00 ELLE ity of [facility] 2020-12-17 2020-12-17 Patient [facility] 1.2.840.114 [id number] Univers 00:00:00 00:00:00 Secure Msg [facility] 350.1.13.10 ity of [place] 4.2.7.2.686 [place] as Professio [phone] [facility] [address] [facility] One 2020-12-17 2020-12-17 Telephone [facility] 1.2.840.114 [id number] Univers 00:00:00 00:00:00 [facility] 350.1.13.10 it y of [place] 4.2.7.2.686 [place] as Donte?Blea [phone] [facility] estuardo [address] [place] [address] 2020-12-10 2020-12-10 Telephone [facility] 1.2.385.846 0559 1113 Univers 00:00:00 00:00:00 Elle Trevizo 350.1.13.10 ity of [place] [phone] [facility] 134 [facility] 2020-12-10 2020-12-10 Violetta Barrientos 1.2.840.114 87 [id number] Univers 00:00:00 00:00:00 Triage SHAYY 350.1.13.10 it y of HOSPITAL 4.2.7.2.686 [place] as [phone] [address] 2020-12-10 2020-12-10 Violetta Barrientos 1.2.840.114 87 [id number] Univers 00:00:00 00:00:00 Triage SHAYY 350.1.13.10 it y of HOSPITAL 4.2.7.2.686 [place] as [phone] [address] 2020-12-04 2020-12-04 Refill [facility] 1.2.840.114 [id number] 065 Univers 00:00:00 00:00:00 [facility] Health 350.1.13.10 it y of Edward [place] 4.2.7.2.686 [place] as Professio [phone] [address] One 2020-12-04 2020-12-04 [facility] 1.2.840.114 [id number] 065 Univers 00:00:00 00:00:00 [facility] 350.1.13.10 it y of Edward [place] 4.2.7.2.686 [place] as Professio [phone] [address] One 2020-12-03 2020-12-03 [facility] 1.2.840.114 [id number] 509 Univers 00:00:00 00:00:00 [facility] 350.1.13.10 it y of [place] 4.2.7.2.686 [place] as Professio [phone] [address] One 2020-12-03 2020-12-03 [facility] 1.2.840.114 11369 509 Univers 00:00:00 00:00:00 [facility] Health 350.1.13.10 it y of [place] 4.2.7.2.686 [place] as Professio [phone] [address] One 2020-12-02 2020-12-02 [facility] 1.2.840.114 [id number] [id number] Univers 16:28:00 19:00:00 Encounter Cam [place] 350.1.13.10 ity of [place] [phone] [address] 2020-12-02 2020-12-02 [facility] 1.2.840.114 [id number] [id number] Univers 16:28:00 19:00:00 Encounter Cam [place] 350.1.13.10 ity of [place]2.[place].2.[place] [phone] [address] 2020-12-02 2020-12-02 Nurse Ayaka Palacios 1.2.840.114 87 [id number] Univers 00:00:00 00:00:00 Triage SHAYY 350.1.13.10 it y of HOSPITAL 4.2.7.2.686 [place] as [phone] [facility] [address] 2020-12-02 2020-12-02 Orders Doctor JUAN 1.2.840.114 [id number] Univers 00:00:00 00:00:00 Only Unassigned, SHAYY 350.1.13.10 ity of [place] [facility] 4.2.7.2.686 [place] as [phone] [address] 2020-12-02 2020-12-02 RefChloe Sweet [facility] 1.2.609.192 [id number] 3124 Univers 00:00:00 00:00:00 Cam [place] 350.1.13.10 i ty of [place].2.7.2.[place] [phone] [facility] [address] 2020-12-02 2020-12-02 Madison Benz WIRIVERA 1.2.840.114 [id number] [id number] Univers 00:00:00 00:00:00 [facility] 350.1.13.[address] [facility] 4.2.7.2.686 [place] as Professio [phone] [facility] [address] One 2020-12-02 2020-12-02 Ayaka Ennis 1.2.840.114 87 [id number] Univers 00:00:00 00:00:00 Triage SHAYY 350.1.13.10 it y of [facility] 4.2.7.2.686 Henry as [phone] [facility] [address] 2020-12-02 2020-12-02 Orders Doctor JUAN 1.2.840.114 [id number] Univers 00:00:00 00:00:00 Only Unassigned, SHAYY 350.1.13.10 ity of [place] [facility] 4.2.7.2.686 [place] as [phone] [address] 2020-12-02 2020-12-02 RefChloe Sweet [facility] 1.2.142.908 [id number] 3124 Univers 00:00:00 00:00:00 Cam [place] 350.1.13.10 i ty of [place].2.7.2.[place] [phone] Tn dical nal 134 [facility] 2020-12-02 2020-12-02 [facility] 1.2.840.114 [id number] 467 Univers 00:00:00 00:00:00 [facility] 350.1.13.10 it y of [place] 4.2.7.2.686 [place] as Professio [phone] Tn dical nal [address] [facility] One 2020-12-01 2020-12-01 Ayaka Ennis 1.2.840.114 87 [id number] Univers 00:00:00 00:00:00 Triage SHAYY 350.1.13.10 it y of HOSPITAL 4.2.7.2.686 [place] as [phone] [address] 2020-12-01 2020-12-01 Ayaka Ennis 1.2.840.114 87 [id number] Univers 00:00:00 00:00:00 Triage SHAYY 350.1.13.10 it y of [facility] 4.2.7.2.686 [place] as [phone] [address] 2020-11-27 2020-11-27 Outpatient R ADUM, [facility] [id number] Univers 14:00:00 14:00:00 ELLE ity of [facility] 2020-11-26 2020-11-26 Routine Adum, [facility] 1.2.840.114 [id number] 56 Univers 15:59:55 17:26:28 Elle L [place] 350.1.13.10 ity of Visit [place] [phone] Tn dical nal 134 [facility] 2020-11-26 2020-11-26 Routine Adum, [facility] 1.2.840.114 [id number] 56 Univers 15:59:55 17:26:28 Elle L [place] 350.1.13.10 ity of Visit [place].2.7.2.[place] [phone] Tn dical nal [address] [place] [address] 2020-11-26 2020-11-26 Youth Director Ultrasound, [facility] [place] 1.2 .840.114 [id number] Univers 14:06:00 15:21:00 Visit Adam Reich TERMITE CONTROL REPRESENTATIVE 350.1.13.[address] [facility] 4.2.7.2.686 [place] as MATERNAL [phone] [facility] ical & CHILD [address] [place] [address] 2020-11-26 2020-11-26 Youth Director Ultrasound, [facility] [place] 1.2 .840.114 [id number] Univers 14:06:00 15:21:00 Visit RachanaAdam Karen TERMITE CONTROL REPRESENTATIVE 350.1.13.[address] [facility] 4.2.7.2.686 [place] as MATERNAL [phone] [facility] & CHILD [address] [place] [address] 2020-11-26 2020-11-26 Outpatient P [facility] [id number] Univers 14:00:00 14:00:00 ity of [facility] 2020-11-26 2020-11-26 [facility]phone [facility] 1.2.591.089 [id number] 8898 Univers 00:00:00 00:00:00 Elle Candace Trevizo 350.1.13.10 ity of [place].2.7.2.[place] [phone] Tn dical [address] 2020-11-26 2020-11-26 [facility]phone [facility] 1.2.914.872 [id number] 8898 Univers 00:00:00 00:00:00 Elle Candace Trevizo 350.1.13.10 ity of [place] 4.2.7.2.[place] [phone] Tn dical nal [address] [place] [address] 2020-11-18 2020-11-18 [facility] 1.2.840.114 [id number] 877 Univers 00:00:00 00:00:00 [facility] 350.1.13.[address] [facility] 4.2.7.2.686 [place] as Professio [phone] Tn dical nal 044 [facility] One 2020-11-11 2020-11-11 Telephone [facility] 1.2.514.653 8355 [id number] Univers 00:00:00 00:00:00 Elle Trevizo 350.1.13.10 ity of [place].2.7.2.[place] [phone] Tn dical nal 134 [facility] 2020-11-09 2020-11-09 [facility] Chloe Reese [facility] 1.2.840.114 [id number] Univers 16:44:00 20:20:00 Encounter Raleigh Trevizo 350.1.13.10 ity of [place] 4.2.7.2.686 [place] [phone] [facility] [address] 2020-11-09 2020-11-09 JUAN Iqbal 1.2.840.114 [id number] Univers 00:00:00 00:00:00 Triage Karina ESTESY 350.1.13.10 it y of HOSPITAL 4.2.7.2.686 [place] as [phone] [facility] [address] 2020-11-07 2020-11-07 Telephone [facility] 1.2.224.185 [id number] 9637 Univers 00:00:00 00:00:00 Elle Trevizo 350.1.13.10 ity of [place]2.7.2.[place] [phone] Tn dical nal 134 [facility] 2020-11-05 2020-11-05 Office [facility] 1.2.840.114 [id number] Univers 15:51:46 16:06:46 Visit [facility] 350.1.13.10 it y of Surgical 4.2.7.2.686 [place] as Specialti [phone] Tn dical es 198 [facility] 2020-11-05 2020-11-05 Outpatient [facility] [id number] Univers 15:45:00 15:45:00 CARMEN it of [facility] 2020-11-02 2020-11-02 JUAN Chun 1.2.840.114 [id number] Univers 00:00:00 00:00:00 Triage Helen GARAY 350.1.13.10 it y of HOSPITAL 4.2.7.2.686 [place] as [phone] [facility] [address] 2020-11-02 2020-11-02 Telephone Juma Mcdaniels [facility] Chris 1.2.840.11 4 [id number] Univers 00:00:00 00:00:00 Jose 350.1.13.10 it y of Women's [place] [phone] [facility] [address] 2020-10-29 2020-10-29 Youth Director 2, Adc Lab [facility] 1.2.840.114 [id number] Univers 14:07:34 14:22:34 Visit Adum, Elle Trevizo 350.1.13.10 ity of [place] 4.2.7.2.686 [place] [phone] Tn dical nal [address] 2020-10-29 2020-10-29 Outpatient R [facility] [id number] Univers 14:00:00 14:00:00 ity of [facility] 2020-10-29 2020-10-29 Refill [facility] 1.2.840.114 [id number] Univers 00:00:00 00:00:00 [facility] 350.1.13.10 it y of [place] 4.2.7.2.686 [place] as Professio [phone] Tn dical nal [address] One 2020-10-29 2020-10-29 Orders Doctor JUAN 1.2.840.114 [id number] Univers 00:00:00 00:00:00 Only Unassigned, SHAYY 350.1.13.10 ity of [place] [facility] 4.2.7.2.686 Henry as [phone] [facility] [address] 2020-10-25 2020-10-25 Routine Adum, [facility] 1.2.840.114 [id number] Univers 16:45:11 17:34:04 Elle Trevizo 350.1.13.10 ity of [place]2.[place].2.[place] [phone] Tn dical nal 134 [facility] 2020-10-25 2020-10-25 Outpatient R ADUM, [facility] [id number] Univers 16:15:00 16:15:00 ELLE ity of [facility] 2020-10-19 2020-10-19 Madison Benz [facility] 1.2.840.114 [id number] Univers 00:00:00 00:00:00 [facility] 350.1.13.10 it y of [place] 4.2.7.2.686 [place] as Professio [phone] Tn dical pending sale to [facility] [address] One 2020-10-18 2020-10-18 Telemedici Fellow, Navin [facility] 1.2.840.114 [id number] Univers 14:46:12 15:16:12 ne Visit Shira Chaudhary [facility] 350.1.13.[address] [facility] 4.2.7.2.686 [place] [phone] [address] 2020-10-18 2020-10-18 Outpatient R [facility] [id number] Univers 13:30:00 13:30:[address] [facility] [place] 2020-10-16 2020-10-16 Telephone [facility] 1.2.409.242 [id number] [id number] Univers 00:00:00 00:00:00 Elle Trevizo 350.1.13.10 ity of [place] 4.2.7.2.[place] [phone] Tn dical nal 134 [facility] 2020-10-16 2020-10-16 Telephone [facility] 1.2.714.223 [id number] 7559 Univers 00:00:00 00:00:00 Elle Trevizo 350.1.13.10 ity of [place] 4.2.7.2.[place] [phone] Tn dical nal 134 [facility] 2020-10-08 2020-10-08 Orders Doctor MARTINEZ 1.2.840.114 [id number] Univers 00:00:00 00:00:00 Only Unassigned, SHAYY 350.1.13.10 ity of [place] [facility] 4.2.7.2.686 [place] as [phone] [facility] [address] 2020-10-04 2020-10-04 Telemedici Fellow, Navin [facility] R[facility] M[facility] U NIVERSIT 1.2.840.114 [id number] Univers 08:16:56 08:46:56 ne Visit lAyssia Marx 350. 1.13.10 ity of CLINICS 4.2.7.2.686 [place] [phone] [facility] [address] 2020-10-04 2020-10-04 Outpatient R [facility] [id number] Univers 08:30:00 08:30:00 ity of [facility] 2020-10-02 2020-10-02 Telephone [facility] 1.2.840.114 [id number] Univers 00:00:00 00:00:00 [facility] 350.1.13.10 it y of [place] 4.2.7.2.686 [place] as Professio [phone] Tn dical nal 044 [facility] 2020-09-27 2020-09-27 Routine [facility] 1.2.840.114 [id number] Univers 16:05:39 17:08:05 Elle Candace Joseline 350.1.13.10 ity of Visit [place] 4.2.7.2.686 [place] [phone] Tn dical nal 134 [facility] 2020-09-27 2020-09-27 Outpatient [facility] [id number] Univers 16:00:00 16:00:00 ELLE ity of [facility] 2020-09-25 2020-09-25 Telephone [facility] 1.2.840.114 [id number] Univers 00:00:00 00:00:00 [facility] 350.1.13.10 it y of [place] 4.2.7.2.686 [place] as Professio [phone] Tn dictn nal [address] [facility] One 2020-09-24 2020-09-24 Out[facility] [id number] Univers 14:00:00 14:00:00 [facility] 2020-09-21 2020-09-21 Telemedici Myrtle Goldman [facility] 1.2.840 .114 [id number] Univers 17:30:22 18:00:22 ne Visit Unknown, [facility].1.13.1 [facility] [place].7.2.[place] [phone] [facility] 2020-09-21 2020-09-21 Outpatient R UNKNOWN, [facility] [id number] Univers 17:30:00 17:30:[address] [facility] [place] 2020 2020 Outpatient R DEMAR [facility] [id number] Univers 16:15:00 16:15:[address] [facility] 2020 2020 Telemelainai [facility] 1.2.840.114 [id number] Univers 14:02:59 14:17:59 ne Visit [facility] 350.1.13.10 i ty of Jonathan [place] 4.2.7.2.686 [place] as Professio [phone] [facility] [address] Building One 2020 2020 Telephone [facility] 1.2.598.533 [id number] 6037 Univers 00:00:00 00:00:00 Elle Candace Joseline 350.1.13.10 ity [facility] 4.2.7.2.686 [place] [phone] Tn dical nal [address] 2020-09-19 2020-09-19 Outpatient R GONZALES [facility] [id number] Univers 17:40:00 17:40:[address] [facility] 2020-09-19 2020-09-19 Outpatient R [facility] [id number] Univers 16:30:00 16:30:[address] [facility] [place] 2020-09-19 2020-09-19 Madison [facility] 1.2.840.114 [id number] Univers 00:00:00 00:00:00 [facility] 350.1.13.10 it y of [place] 4.2.7.2.686 [place] as Professio [phone] Tn dical nal [address] One 2020-09-19 2020-09-19 Nurse Martha Lang 1.2.840.114 [id number] Univers 00:00:00 00:00:00 Triage SHAYY 350.1.13.10 it y of HOSPITAL 4.2.7.2.686 [place] as [phone] [facility] [address] 2020-09-19 2020-09-19 Nurse Violetta Clay 1.2.840.114 [id number] Univers 00:00:00 00:00:00 Triage SHAYY 350.1.13.10 it y of [facility] 4.2.7.2.686 [place] as [phone] [facility] [address] 2020-09-19 2020-09-19 Patient [facility] 1.2.840.114 [id number] Univers 00:00:00 00:00:00 Secure Msg Elle Trevizo 350.1.13.10 ity of [place] 4.2.7.2.[place] [phone] Tn dical nal [address] 2020-09-19 2020-09-19 Telephone Clinic, [facility] UNIVERSIT 1.2.840.11 [id number] Univers 00:00:00 00:00:00 Neurology Y HEALTH 350.1.13.10 ity of Contin[facility] CLINICS 4.2.7.2.686 [place] [phone] [facility] [address] 2020-09-18 2020-09-18 Telephone Kalyani Martinez 1.2.454.208 4523 9607 Univers 00:00:00 00:00:00 Analilia Wills 350.1.13.10 ity of [place] 4.2.7.2.686 [place] [phone] [facility] [address] 2020-09-18 2020-09-18 [facility] 1.2.840.114 [id number] Univers 00:00:00 00:00:00 [facility] 350.1.13.10 it y of Edsteven [place] 4.2.7.2.686 [place] as Professio [phone] [facility] [address] One 2020-09-18 2020-09-18 Telephone [facility] 1.2.056.430 [id number] [id number] Univers 00:00:00 00:00:00 Elle Trevizo 350.1.13.10 ity of [place] 4.2.7.2.686 [place] [phone] [facility] 134 [facility] 2020-09-08 2020-09-10 Hospital Tita Cortez 1.2.840.11 [id number] [facility] 12:24:00 09:20:00 Encounter Migdalia Linares 350.1.13.10 ity of [facility] 4.2.7.2.686 [place] as [phone] [address] 2020-09-08 2020-09-08 Nurse JUAN Santos 1.2.840.114 [id number] Univers 00:00:00 00:00:00 Triage Rosy GARAY 350.1.13.10 ity of [facility] 4.2.7.2.686 [place] as [phone] [address] 2020-09-05 2020-09-05 Outpatient MAO FIGUEROA [facility] [id number] [facility] 14:30:00 14:30:00 ity of [facility] 2020-09-03 2020-09-03 [facility] 1.2.840.114 [id number] [facility] 00:00:00 00:00:00 [facility] 350.1.13.10 it y of [place] 4.2.7.2.686 [place] as Professio [phone] [facility] 044 [facility] One 2020-09-03 2020-09-03 Telephone [facility] 1.2.027.459 [id number] 4451 Univers 00:00:00 00:00:00 Elle Trevizo 350.1.13.10 ity of [place] 4.2.7.2.[place] [phone] Tn dical nal [address] [place] [address] 2020-09-02 2020-09-02 Routine Chloe Reese [facility] 1.2.766.855 [id number] 3218 Univers 13:19:48 15:16:04 Raleigh Trevizo 350.1.13.10 ity of Visit [place] 4.2.7.2.686 [place] [phone] Tn dic[address] 2020-09-02 2020-09-02 Outpatient R CHLOE REESE [facility] [id number] Univers 13:15:00 13:15:00 ity of [facility] 2020-09-02 2020-09-02 Telephone [facility] 1.2.934.930 [id number] 0382 Univers 00:00:00 00:00:00 Elle Trevioz 350.1.13.10 ity of [place] 4.2.7.2.[place] [phone] [address] 2020-08-31 2020-08-31 Nurse Irina MARTINEZ 1.2.840.114 [id number] Univers 00:00:00 00:00:00 Triage SHAYY Guzman 350.1.13.10 ity of [facility] 4.2.7.2.686 [place] as [phone] [address] 2020-08-31 2020-08-31 JUAN Pelaez 1.2.840.114 [id number] Univers 00:00:00 00:00:00 Triage Cat Zandra SHAYY 350.1.13.10 i ty [facility] 4.2.7.2.686 [place] as [phone] [address] 2020-08-30 2020-08-30 JUAN Pelaez 1.2.840.114 [id number] Univers 00:00:00 00:00:00 Triage Cat De Paz SHAYY 350.1.13.10 i ty [facility] 4.2.7.2.686 [place] as [phone] [address] 2020-08-28 2020-08-29 Emergency Singer [facility] 1.2.705.645 [id number] 7327 Univers 20:20:00 00:01:00 Darryn Trevizo 350.1.13.10 i ty of [place] 4.2.7.2.686 [place] [phone] [address] 2020-08-27 2020-08-27 Youth Director 2, Adc Lab [facility] 1.2.840.114 [id number] Univers 15:18:51 15:33:51 Visit Adum, Elle Trevizo 350.1.13.10 ity of [place] 4.2.7.2.686 [place] [phone] Tn dical nal 353 [facility] 2020-08-27 2020-08-27 Routine Adum, [facility] 1.2.840.114 [id number] Univers 13:41:37 15:06:26 Elle Trevizo 350.1.13.10 ity of Visit [place] 4.2.7.2.686 [place] [phone] Tn dical nal 134 [facility] 2020-08-27 2020-08-27 Outpatient R LEXIE, [facility] [id number] Univers 14:15:00 14:15:00 ELLE ity of [facility] 2020-08-27 2020-08-27 Telephone [facility] 1.2.259.096 [id number] Univers 00:00:00 00:00:00 Elle Trevizo 350.1.13.10 ity of [place] 4.2.7.2.686 [place] [phone] Tn dical nal 134 [facility] 2020-08-22 2020-08-22 Out[facility] [id number] Univers 19:20:00 19:20:00 CALEB ity of [facility] 2020-08-22 2020-08-22 Telephone [facility] 1.2.903.809 [id number] [id number] Univers 00:00:00 00:00:00 Elle Trevizo 350.1.13.10 ity of [place].2.7.2.686 [place] [phone] Tn dical nal 134 [facility] 2020-08-22 2020-08-22 Telephone Adum, [facility] 1.2.322.269 [id number] 4399 Univers 00:00:00 00:00:00 Elle [place] 350.1.13.10 ity of [place] 4.2.7.2.[place] [phone] Tn dical [address] 2020-08-19 2020-08-19 Refill Adum, [facility] 1.2.840.114 [id number] Univers 00:00:00 00:00:00 Elle [place] 350.1.13.10 ity of [place] 4.2.7.2.[place] [phone] [address] 2020-08-09 2020-08-09 Outpatient R ADUM, [facility] [id number] Univers 14:30:00 14:30:00 ELLE ity of [facility] 2020-08-06 2020-08-06 Initial Adum, [facility] 1.2.840.114 [id number] Univers 14:28:51 16:45:44 Elle Trevizo 350.1.13.10 ity of [place] [phone] [address] 2020-08-06 2020-08-06 Outpatient R ADUM, [facility] [id number] Univers 14:30:00 14:30:00 ELLE ity of [facility] 2020-08-06 2020-08-06 Telephone Adum, [facility] [id number] Univers 00:00:00 00:00:00 Elle Trevizo [id number] [id number] [phone] [address] 2020-08-06 2020-08-06 Orders Doctor MARTINEZ 1.2.840.114 [id number] Univers 00:00:00 00:00:00 Only Unassigned, SHAYY [id number] ity of [place] [facility] 4.2.7.2.686 [place] as [phone] [address] 2020-07-29 2020-07-29 [facility] [id number] Univers 00:00:00 00:00:00 [facility] 350.1.13.10 it y of [place] [id number] [place] as Professio [phone] [address] Office [facility] 2020-07-29 2020-07-29 [facility] 1.2.840.114 [id number] Univers 00:00:00 00:00:00 [facility] 350.1.13.10 it y of [place] 4.2.7.2.686 [place] Professio [phone] [address] Office [facility] One 2020-07-22 2020-07-22 Outpatient R [facility] [id number] Univers 19:00:00 19:00:00 [facility] 2020-07-16 2020-07-16 [facility] 1.2.840.114 [id number] Univers 00:00:00 00:00:00 [facility] [id number] it y of [place] 4.2.7.2.686 [place] Professio [phone] [address] One 2020-07-06 2020-07-06 [facility] 1.2.840.114 [id number] Univers 00:00:00 00:00:00 [facility] [id number] it y of [place] [id number] [place] Professio [phone] [address] Office [facility] One 2020-07-01 2020-07-01 [facility] 1.2.840.114 [id number] Univers 00:00:00 00:00:00 [facility] 350.1.13.10 it y of Edward [place] 4.2.7.2.686 [place] as Professio [phone] [address] Office [facility] One 2020-06-21 2020-06-21 Outpatient R DULCE [facility] [id number] Univers 16:15:00 16:15:[address] [facility] 2020-06-19 2020-06-19 Orders Doctor JUAN 1.2.840.114 [id number] Univers 00:00:00 00:00:00 Only Unassigned, SHAYY 350.1.13.10 ity of [place] [facility] 4.2.7.2.686 [place] as [phone] [address] 2020-06-11 2020-06-11 Office [facility] 1.2.840.114 [id number] Univers 15:35:12 15:50:12 Visit [facility] 350.1.13.10 it y of Jonathan Trevizo 4.2.7.2.686 [place] as Professio [phone] [facility] 2020-06-11 2020-06-11 Outpatient R [facility] [id number] Univers 15:30:00 15:30:00 [facility] 2020-05-30 2020-05-30 Refill [facility] 1.2.840.114 [id number] Univers 00:00:00 00:00:00 [facility] 350.1.13.10 it y of Jonathan [place] 4.2.7.2.686 [place] as Professio [phone] [facility] 2020-05-27 2020-05-27 [facility] 1.2.840.114 [id number] Univers 00:00:00 00:00:00 Grant Trevizo 350.1.13.10 ity of [place] [phone] [facility] 092 [facility] 2020-05-02 2020-05-02 [facility] [id number] Univers 09:50:00 09:50:00 [facility] 2020-05-02 2020-05-02 Telemedici [facility] 1.2.840.114 [id number] Univers 08:42:09 08:52:09 ne Visit [facility] 350.1.13.10 i ty of [place] 4.2.7.2.686 [place] as Professio [phone] Tn dical nal [address] [place] [address] One 2020-05-02 2020-05-02 Telephone [facility] 1.2.840.114 [id number] Univers 00:00:00 00:00:00 [facility] 350.1.13.10 it y of [place] 4.2.7.2.686 [place] as Professio [phone] Tn dictn nal [address] [place] [address] One 2020-05-02 2020-05-02 [facility] 1.2.840.114 [id number] Univers 00:00:00 00:00:00 [facility] 350.1.13.10 it y of [place] 4.2.7.2.686 [place] as Professio [phone] [address] One 2020-05-02 2020-05-02 [facility] 1.2.840.114 [id number] Univers 00:00:00 00:00:00 [facility] 350.1.13.10 it y of [place] 4.2.7.2.686 [place] as Professio [phone] Tn dictn nal [address] [place] [address] One 2020-05-01 2020-05-01 Emergency [facility] 1.2.768.084 [id number] Univers 18:59:00 21:44:00 Juma R [place] 350.1.13.10 i ty of [place] 4.2.7.2.686 [place] [phone] [facility] [address] 2020-04-28 2020-04-28 Refill [facility] 1.2.840.114 [id number] Univers 00:00:00 00:00:00 [facility] 350.1.13.10 it y of [place] 4.2.7.2.686 [place] as Professio [phone] Tn dical nal [address] [place] [address] One 2020-04-22 2020-04-22 [facility] 1.2.840.114 [id number] Univers 06:54:00 08:09:00 Encounter Aly Marcial [place] 350.1.13.10 ity of [place].2.7.2.686 [place] Surgical [phone] [address] 2020-04-19 2020-04-19 [facility] [id number] Univers 13:00:00 13:00:[address] [facility] [place] [place] 2020-04-12 2020-04-12 Refill [facility] 1.2.840.114 [id number] Univers 00:00:00 00:00:00 [facility] 350.1.13.10 it y of [place] 4.2.7.2.686 [place] as Professio [phone] [address] One 2020-04-11 2020-04-11 Outpatient R [facility] [id number] Univers 10:30:00 10:30:00 [facility] 2020-04-11 2020-04-11 Telemedici [facility] 1.2.840.114 [id number] Univers 07:27:09 07:42:09 ne Visit [facility] 350.1.13.10 i ty of [place] 4.2.7.2.686 [place] as Professio [phone] [address] One 2020-04-11 2020-04-11 Telephone [facility] 1.2.840.114 [id number] Univers 00:00:00 00:00:00 [facility] 350.1.13.10 it y of [place] 4.2.7.2.686 [place] as Professio [phone] [address] One 2020-04-09 2020-04-09 Outpatient Campos [facility] [id number] Univers 13:00:00 13:00:[address] [facility] 2020-04-08 2020-04-08 [facility] 1.2.840.114 [id number] Univers 06:58:00 08:24:00 Encounter Aly Trevizo 350.1.13.10 ity of [place].2.[place] [phone] [facility] [address] 2020-04-08 2020-04-08 Orders Doctor JUAN 1.2.840.114 [id number] Univers 00:00:00 00:00:00 Only Unassigned, SHAYY 350.1.13.10 ity of [place] [facility]OS[facility] 4.2.7.2.686 [place] as [phone] [address] 2020-04-05 2020-04-05 Outpatient [facility] [id number] Univers 13:45:00 13:45:[address] [facility] [place] 2020-04-05 2020-04-05 Youth Director Danette, Adc Lab Main [facility] 1.2.8 40.114 [id number] Univers 11:46:35 12:01:35 Visit Aly Ryan 350.1.13.1 0 ity of [place].2.[place].2.[place] [phone] [facility] 353 [facility] 2020-04-05 2020-04-05 Laboratory Only, Adc Test [facility] 1.2.840. 114 [id number] Univers 11:44:14 11:59:14 Only Aly Ryan 350.1.13.1 0 ity of [place] 4.2.7.2.686 [place] [phone] [facility] [address] 2020-04-05 2020-04-05 Orders Doctor JUAN 1.2.840.114 [id number] Univers 00:00:00 00:00:00 Only Unassigned, SHAYY 350.1.13.10 ity of [place] HOSPITAL 4.2.7.2.686 [place] as [phone] [facility] [address] 2020-04-05 2020-04-05 Telephone [facility] 1.2.840.114 [id number] Univers 00:00:00 00:00:00 [facility] 350.1.13.10 it y of [place] 4.2.7.2.686 [place] as Professio [phone] [address] Office [facility] One 2020-04-04 2020-04-04 Telephone [facility] 1.2.840.114 [id number] Univers 00:00:00 00:00:00 [facility] 350.1.13.10 it y of [place] 4.2.7.2.686 [place] as Professio [phone] [address] Office [facility] One 2020-04-04 2020-04-04 Patient [facility] 1.2.840.114 [id number] [facility] 00:00:00 00:00:00 Secure Msg [facility] 350.1.13.10 ity of [place] 4.2.7.2.686 [place] as Professio [phone] [address] One 2020-04-03 2020-04-03 Office [facility] 1.2.840.114 [id number] Univers 15:00:34 15:15:34 Visit [facility] 350.1.13.10 it y of [place] 4.2.7.2.686 [place] as Professio [phone] [address] One 2020-04-03 2020-04-03 Outpatient R [facility] [id number] Univers 14:45:00 14:45:00 ARIK ity of [facility] 2020-04-03 2020-04-03 Telephone [facility] 1.2.840.114 [id number] Univers 00:00:00 00:00:00 [facility] 350.1.13.10 it y of [place] 4.2.7.2.686 [place] as Professio [phone] [address] One 2020-04-03 2020-04-03 Telephone [facility] 1.2.840.114 [id number] Univers 00:00:00 00:00:00 [facility] 350.1.13.10 it y of [place] 4.2.7.2.686 [place] as Professio [phone] Tn dical nal [address] Office Building One 2020-03-25 2020-03-25 Hospital Shelby [facility] 1.2.840.114 [id number] Univers 08:02:00 10:10:00 Encounter Aly Trevizo 350.1.13.10 ity of [place].2.[place] [phone] [facility] [address] 2020-03-25 2020-03-25 Orders Doctor JUAN 1.2.840.114 [id number] Univers 00:00:00 00:00:00 Only Unassigned, SHAYY 350.1.13.[address] [facility] 4.2.7.2.686 [place] as [phone] [facility] [address] 2020-03-25 2020-03-25 Nurse Irina MARTINEZ 1.2.840.114 [id number] Univers 00:00:00 00:00:00 Triage ThomasSHAYY rainey 350.1.13.10 ity of [facility] 4.2.7.2.686 [place] as [phone] [facility] [address] 2020-03-20 2020-03-20 Youth Director Danette, Edy Lab Main [facility] 1.2.8 40.114 [id number] Univers 12:30:25 12:45:25 Visit Aly Ryan 350.1.13.1 0 ity of [place]2.7.2.[place] [phone] Tn dical nal 353 [facility] 2020-03-20 2020-03-20 Laboratory Only, Adc Test [facility] 1.2.840. 114 [id number] Univers 11:43:13 11:58:13 Only Aly Ryan 350.1.13.1 0 ity of [place] 4.2.[place].2.686 [place] [phone] [facility] [address] 2020-03-20 2020-03-20 Outpatient R SHELBY [facility] [id number] Univers 11:15:00 11:15:00 ALY ity of [facility] Branch 2020-03-20 2020-03-20 Orders Doctor JUAN 1.2.840.114 [id number] Univers 00:00:00 00:00:00 Only Unassigned, SHAYY 350.1.13.10 ity of [place] [facility]OSP[facility] 4.2.7.2.686 [place] as [phone] [facility] [address] 2020-03-12 2020-03-12 Office [facility] 1.2.840.114 [id number] Univers 14:07:40 14:22:40 Visit [facility] 350.1.13.10 it y of [place] 4.2.7.2.686 [place] as Professio [phone] Tn dical nal [address] Office Building [facility] 2020-03-12 2020-03-12 Outpatient R [facility] [id number] Univers 14:15:00 14:15:[address] [facility] 2020-03-12 2020-03-12 Nurse JUAN Chun 1..840.114 [id number] Univers 00:00:00 00:00:00 Triage Karinaalvaro GARAY 350.1.13.10 it y of HOSPITAL 4.2.7.2.686 [place] as [phone] [address] 2020-03-12 2020-03-12 Telephone [facility] 1.2.840.114 [id number] Univers 00:00:00 00:00:00 [facility] 350.1.13.10 it y of [place] 4.2.7.2.686 [place] as Professio [phone] Tn dical nal [address] [place] [address] Office Building [facility] 2020-02-14 2020-02-14 Outpatient [facility] [id number] Univers 15:30:00 15:30:[address] [facility] [place] [place] 2020-02-12 2020-02-12 Refill [facility] 1.2.840.114 [id number] Univers 00:00:00 00:00:00 [facility] 350.1.13.10 it y of [place] 4.2.7.2.686 [place] as Professio [phone] Tn dical nal [facility] 2020-01-29 2020-01-29 [facility] 1.2.840.114 [id number] Univers 00:00:00 00:00:00 Arik [facility] 350.1.13.10 it y of [place] 4.2.7.2.686 [place] as Professio [phone] Tn dread [address] 2020-01-29 2020-01-29 [facility] 1.2.840.114 [id number] Univers 00:00:00 00:00:00 Arik [facility] 350.1.13.10 it y of [place] 4.2.7.2.686 [place] as Professio [phone] Tn josiane[address] 2020-01-26 2020-01-26 [address] [facility] [facility] [id number] Univers 16:00:00 16:00:00 [facility] 2020-01-26 2020-01-26 Youth Director Lab, [facility] Pob I [facility] 1.2. 840.114 [id number] Univers 09:09:02 09:16:47 Visit Arik Benz steven [facility] 350.1.13 .10 ity of [place] 4.2.7.2.686 [place] as Professio [phone] Tn josiane[address] 2020-01-26 2020-01-26 Office [facility] 1.2.840.114 [id number] Univers 08:16:33 08:31:33 Visit Arik [facility] 350.1.13.10 it y of [place] 4.2.7.2.686 [place] as Professio [phone] Tn dread [address] 2020-01-26 2020-01-26 Outpatient R [facility] [id number] Univers 08:30:00 08:30:00 [facility] 2020-01-25 2020-01-25 Office DoverbrianACOMA[facility] 1.2.507.434 [id number] Univers 15:25:26 16:55:28 Visit Teo Trevizo 350.1.13.10 i ty of [place] 4.2.7.2.686 [place] [phone] Tn dical nal 134 [facility] 2020-01-25 2020-01-25 Outpatient R MARILUBRIAN, [facility] [id number] Univers 15:30:00 15:30:[address] [facility] [place] [place] 2020-01-24 2020-01-24 Outpatient R JUMA MCDANIELS [facility] [id number] Univers 14:30:00 14:30:00 ity of [facility] 2020-01-18 2020-01-18 Refill Doctor UNIVERSIT 1.2.330.259 [id number] Univers 00:00:00 00:00:00 Unassigned, [facility] 350.1.13.[address] [facility] 4.2.7.2.686 [place] [phone] [address] 2020-01-15 2020-01-15 Refill Jess[facility]AC[facility] 1.2.840.114 [id number] Univers 00:00:00 00:00:00 Maximus Trevizo 350.1.13.10 i ty of [place] 4.2.7.2.686 [place] [phone] Tn dical nal 044 [facility] 2020-01-12 2020-01-12 Refill N[facility] 1.2.840.114 [id number] Univers 00:00:00 00:00:00 Grant Trevizo 350.1.13.10 ity of [place] 4.2.7.2.686 [place] [phone] [facility] 092 [facility] 2019-12-15 2019-12-15 Outpatient R LEXIE, [facility] [id number] Univers 13:00:00 13:00:[address] [facility] 2019-11-07 2019-11-17 Office [facility] 1.2.840.114 [id number] Univers 14:01:04 14:03:23 Visit Justin Trevizo 350.1.13.10 ity of [place] 4.2.7.2.686 [place] [phone] Tn dical nal 044 [facility] 2019-11-17 2019-11-17 Case Elvin [facility] 1.2.840.114 [id number] Univers 00:00:00 00:00:00 Management Justin Trevizo 350.1.13.10 ity of [place] 4.2.7.2.686 [place] [phone] Tn dical nal 044 [facility] 2019-11-14 2019-11-14 Outpatient Campos BENZ, [facility] [id number] Univers 16:30:00 16:30:[address] [facility] [place] [place] 2019-11-10 2019-11-10 Telephone [facility] 1.2.840.114 [id number] Univers 00:00:00 00:00:00 Grant Trevizo 350.1.13.10 ity of [place] 4.2.7.2.686 [place] [phone] Tn dical nal 092 [facility] 2019-11-10 2019-11-10 Refill [facility] 1..840.114 [id number] Univers 00:00:00 00:00:00 Grant Trevizo 350.1.13.10 ity of [place] 4.2.7.2.686 [place] [phone] Tn dical nal 092 [facility] 2019-11-08 2019-11-08 Outpatient Asplin_B VFP VFP [id number] 1-20 Village 11:44:00 11:44:00 [id number] Family Practic e 2019-11-08 2019-11-08 Telephone [facility] 1.2.840.114 [id number] Univers 00:00:00 00:00:00 Grant Trevizo 350.1.13.10 ity of [place] 4.2.7.2.686 [place] [phone] Tn dical nal 092 [facility] 2019-11-07 2019-11-07 Youth Director 2, Adc Lab [facility] 1.2.840.114 [id number] Univers 14:43:22 14:58:22 Visit WabashPeter tesfayepeter Trevizo 350.1.13. 10 ity of [place] 4.2.7.2.686 [place] [phone] Tn dical nal 353 [facility] 2019-11-07 2019-11-07 Outpatient R ELVIN, [facility] [id number] Univers 13:45:00 13:45:00 WONDIFUL ity o f [facility] 2019-11-05 2019-11-05 Outpatient R ONEL, [facility] [id number] Univers 16:20:00 16:20:00 CALEB ity of [facility] 2019-11-05 2019-11-05 Nurse JUAN Santos 1.2.840.114 [id number] Univers 00:00:00 00:00:00 Triage Rosy GARAY 350.1.13.10 ity of [facility] 4.2.7.2.686 [place] as [phone] [facility] [address] 2019-11-03 2019-11-03 ROSEMARY Chan 1.2.840.114 [id number] Univers 00:00:00 00:00:00 [facility] 350.1.13.[address] [facility] 4.2.7.2.686 [place] [phone] [facility] [address] 2019-11-02 2019-11-02 Patient Elvin [facility] 1.2.840.114 [id number] Univers 00:00:00 00:00:00 Secure Msg Wondiful A Joseline 350.1.13.10 ity of [place] 4.2.7.2.686 [place] [facility] [phone] Tn dical nal 044 [facility] 2019-11-01 2019-11-01 Transition Kalyani Dubois 1.2.840.114 [id number] Univers 00:00:00 00:00:00 of Care Ednaleonie Wills 350.1.13.10 ity of [place] 4.2.7.2.686 [place] [phone] [facility] [address] 2019-10-31 2019-10-31 Emergency [facility] 1.2.745.651 [id number] Univers 16:01:00 18:16:00 Leroy Trevizo 350.1.13.10 i ty of [place] 4.2.7.2.686 [place] [phone] [facility] [address] 2019-10-31 2019-10-31 Telemedici Beth Kang [facility] 1.2.840 .114 [id number] Univers 05:43:53 13:27:24 ne Visit Unknown, Attending SPECIALTY 350.1.13 .10 ity of CARE 4.2.7.2.686 [facility] AT [phone] Tn dread MESSER [address] [place] [address] 2019-10-31 2019-10-31 Outpatient R UNKNOWN, [facility] [id number] Univers 10:00:00 10:00:00 ATTENDING ity of [facility] 2019-10-31 2019-10-31 Telephone [facility] 1.2.498.726 [id number] Univers 00:00:00 00:00:00 [facility] 350.1.13.10 it y of [place] 4.2.7.2.686 [place] as Professio [phone] Tn josianetn ayaan [facility] 2019-10-30 2019-10-30 Telephone [facility] 1.2.714.505 [id number] Univers 00:00:00 00:00:00 [facility] 350.1.13.10 it y of [place] 4.2.7.2.686 [place] as Professio [phone] [address] 2019-10-29 2019-10-29 Emergency Cacjyoti, [facility] 1.2.132.435 [id number] Univers 20:08:00 22:13:00 Jane Trevizo 350.1.13.10 ity of [place] 4.2.7.2.686 [facility] [phone] [address] 2019-10-29 2019-10-29 Telemedici Care, Provider 12 - Adult U ent [facility] 1.2.840.114 [id number] Univers 18:20:00 18:40:00 ne Visit Unknown, Attending HEALTH 350.1.13.1 0 ity of [place] 4.2.7.2.686 [facility] [phone] [address] ([facility]) 2019-10-29 2019-10-29 Outpatient R UNKNOWN, [facility] [id number] Univers 18:20:00 18:20:00 ATTENDING ity of [facility] 2019-10-25 2019-10-25 Telephone [facility] 1.2.236.181 [id number] Univers 00:00:00 00:00:00 Tico Armenta 350.1.13.10 it y of [place] 4.2.7.2.686 [place] as Professio [phone] [address] 2019-10-25 2019-10-25 Refdb [facility]oadesAC[facility] 1.2.840.114 [id number] Univers 00:00:00 00:00:00 Maximus Trevizo 350.1.13.10 i ty of [place]2.7.2.[place] [phone] [address] 2019-10-24 2019-10-24 [facility] 1.2.840.114 [id number] Univers 16:15:00 23:59:00 Encounter Tico Trevizo 350.1.13.10 ity of [place] 4.2.7.2.686 [place] [phone] [facility] [address] [place] [address] 2019-10-24 2019-10-24 Urgent Provider, [facility] 1.2.840.114 [id number] Univers 15:17:27 15:37:27 Care Tico Chi 350.1.13.10 ity of [place] 4.2.7.2.686 [place] as Professio [phone] [address] 2019-10-24 2019-10-24 Outpatient [facility] [id number] Univers 15:20:00 15:20:[address] [facility] [place] 2019-10-24 2019-10-24 Telephone [facility] 1.2.494.080 [id number] Univers 00:00:00 00:00:00 Tico Trevizo 350.1.13.10 i ty of [place] 4[place]2.7.2.[place] [phone] [address] 2019-10-23 2019-10-23 Outpatient Asplin_B VFP VFP [id number] 1-20 Village 11:19:00 11:19:00 [id number] Family Practic e 2019-10-10 2019-10-10 Telephone Shelby [facility] 1.2.840.114 [id number] Univers 00:00:00 00:00:00 Aly Marcial PRIMARY 350.1.13.10 i ty of CARE 4.2.7.2.686 [place] [phone] Tn dical [address] 2019-09-26 2019-09-26 Refill [facility] 1.2.840.114 [id number] Univers 00:00:00 00:00:00 Tico Joseline 350.1.13.10 i ty of [place] 4.2.7.2.686 [place] [phone] Tn dical nal 044 [facility] 2019-09-16 2019-09-16 Outpatient Campos CORADO [facility] [id number] Univers 16:40:00 16:40:[address] [facility] 2019-09-16 2019-09-16 Outpatient Asplin_B VFP VFP [id number] -[id number] [facility] 10:07:00 10:07:00 [id number] Family Practic e 2019-09-15 2019-09-15 Outpatient Campos SANTIAGO [facility] [id number] Univers 17:00:00 17:00:[address] [facility] 2019-09-08 2019-09-08 Telephone JUAN Chi 1.2.886.117 [id number] Univers 00:00:00 00:00:00 Tico GARAY 350.1.13.10 it y of HOSPITAL 4.2.7.2.686 [place] as [phone] [address] 2019-09-08 2019-09-08 Patient Doctor JUAN 1.2.840.114 [id number] Univers 00:00:00 00:00:00 Secure Msg UnassignedSHAYY 350.1.13.10 ity of [place] [facility] 4.2.7.2.686 Henry as [phone] [address] 2019-09-06 2019-09-06 Urgent Pob1, Acute Care Clinic [facility] 1. 2.840.114 [id number] Univers 16:19:19 16:39:19 Care [facility] 350.1.13.10 ity of [place] 4.2.7.2.686 [place] as Timothyio [phone] Tn dical pending [facility] to [facility] [address] Office Building One 2019-09-06 2019-09-06 Outpatient R [facility] [id number] Univers 16:20:00 16:20:00 ity of [facility] 2019-09-06 2019-09-06 Outpatient R [facility] [id number] Univers 11:20:00 11:20:00 ity of [facility] 2019-09-06 2019-09-06 Patient Doctor JUAN 1.2.840.114 [id number] Univers 00:00:00 00:00:00 Secure Msg Unassigned, SHAYY 350.1.13.10 [facility] 4.2.7.2.686 [place] as [phone] [facility] [address] 2019-08-23 2019-08-23 Outpatient R GRANT GUSMAN [facility] [id number] Univers 15:00:00 15:00:00 GRANT GUSMAN ity of [facility] 2019-08-23 2019-08-23 Telemedici HAY Gusman 1.2.840.114 [id number] Univers 08:11:53 08:41:53 ne Visit Grant Koo [facility] 350.1.13.10 [place]y [place] [phone] [facility] [address] 2019-08-20 2019-08-[address] [id number] Univers 17:00:00 17:00:00 MURALI ity of [facility] 2019-08-15 2019-08-15 Transition Kalyani Dubois 1.2.840.114 [id number] Univers 00:00:00 00:00:00 of Care Edna Wills 350.1.13.10 ity [place] [phone] [facility] [address] 2019-08-13 2019-08-13 [facility] [id number] Univers 18:39:45 20:15:00 Bobofrancesca [place] 350.1.13.10 it[place] [phone] [facility] [address] 2019-08-13 2019-08-13 Orders Doctor JUAN 1.2.840.114 [id number] Univers 00:00:00 00:00:00 Only Unassigned, SHAYY 350.1.13.10 ity of [place] [facility] 4.2.7.2.686 [place] [phone] [facility] [address] 2019-08-01 2019-08-01 Telephone [facility] 1.2.840.114 [id number] Univers 00:00:00 00:00:00 Grant Koo Joseline 350.1.13.10 [place] [phone] [facility] 092 [facility] 2019-07-25 2019-07-25 Keily R NATALY [facility] [id number] Univers 15:00:00 15:00:00 TEO ity of [facility] 2019-07-16 2019-07-16 Telephone [facility] 1.2.283.990 [id number] Univers 00:00:00 00:00:00 Tico Trevizo 350.1.13.10 i ty of [place] [phone] Tn dical nal 044 [facility] 2019-07-11 2019-07-11 Telephone [facility] 1.2.335.594 [id number] Univers 00:00:00 00:00:00 [facility] 350.1.13.10 it y of [place] 4.2.7.2.686 [place] as Professio [phone] Tn dical nal [address]44 [address] [facility] 2019-06-20 2019-06-20 Telephone [facility] 1.2.847.436 [id number] Univers 00:00:00 00:00:00 [facility] 350.1.13.10 it y of [place] 4.2.7.2.686 [place] as Professio [phone] Tn dical nal 044 [address] [facility] 2019-06-16 2019-06-16 Telephone [facility] 1.2.840.114 [id number] Univers 00:00:00 00:00:00 Grant Trevizo 350.1.13.10 ity of [place] [phone] [facility] 092 [facility] 2019-06-14 2019-06-14 Outpatient [facility] [id number] Univers 12:43:28 23:59:00 KYA ity o f [facility] 2019-06-14 2019-06-14 [facility] 1.2.840.114 [id number] Univers 12:30:00 23:59:00 Encounter Kya Trevizo 350.1.13.10 ity of [place] [phone] [facility] [address] 2019-06-14 2019-06-14 Orders Doctor JUAN 1.2.840.114 [id number] Univers 00:00:00 00:00:00 Only Unassigned, SHAYY 350.1.13.10 ity of [place] [facility] 4.2.7.2.686 [place] as [phone] [facility] [address] 2019-06-13 2019-06-13 Refill [facility] 1.2.840.114 [id number] Univers 00:00:00 00:00:00 Jose Trevizo 350.1.13.10 i ty [place] [phone] Tn dical nal 134 [facility] 2019-06-11 2019-06-11 Patient Doctor JUAN 1.2.840.114 [id number] Univers 00:00:00 00:00:00 Secure Msg Unassigned, SHAYY 350.1.13.10 ity of [place] [facility] 4.2.7.2.686 [place] as [phone] [facility] [address] 2019-06-09 2019-06-09 Telephone [facility] 1.2.840.114 [id number] Univers 00:00:00 00:00:00 Grant Gene [place] 350.1.13.10 ity of [place] [phone] Tn dical nal 092 [facility] 2019-06-06 2019-06-06 Outpatient R GRANT GUSMAN [facility] [id number] Univers 10:40:00 10:40:00 NASEEMGRANT Tejeda ity of [facility] 2019-06-06 2019-06-06 Telephone [facility] 1.2.750.998 [id number] Univers 00:00:00 00:00:00 [facility] 350.1.13.10 it y of [place] 4.2.7.2.686 [place] as Professio [phone] Tn dical nal 044 [address] [facility] 2019-06-06 2019-06-06 Patient Alon [facility] 1.2.840.114 [id number] Univers 00:00:00 00:00:00 Secure Msg [facility] 350.1.13.10 ity of [place] 4.2.7.2.686 [place] as Professio [phone] Tn dical nal [address] [facility] 2019-06-06 2019-06-06 Patient Doctor [facility] 1.2.840.114 [id number] Univers 00:00:00 00:00:00 Secure Msg Unassigned, Health 350.1.13.10 ity of [place] 4.2.7.2.686 [place] Professio [phone] Tn dical nal 044 [address] [facility] 2019-06-05 2019-06-05 Refill [facility] 1.2.840.114 [id number] Univers 00:00:00 00:00:00 [facility] 350.1.13.10 it y of [place] 4.2.7.2.686 [place] as Professio [phone] Tn dical nal [address] [facility] 2019-06-03 2019-06-03 Patient Doctor JUAN 1.2.840.114 [id number] Univers 00:00:00 00:00:00 Secure Msg Unassigned, SHAYY 350.1.13.10 ity of [place] [facility] 4.2.7.2.686 [place] as [phone] [address] 2019-06-02 2019-06-02 Office Alon [facility] 1.2.840.114 [id number] Univers 11:27:23 13:40:24 Visit Ticozandra Armenta 350.1.13.10 it y of [place] 4.2.7.2.686 [place] as Professio [phone] Tn dical nal [address] [facility] 2019-06-02 2019-06-02 Office Carmen Mcclain [facility] 1.2.840.114 [id number] Univers 10:14:12 10:29:12 Visit HollowayOlya [facility] 350.1.13.10 ity of Surgical 4.2.7.2.686 [place] as Specialti [phone] Tn dical es 198 [facility] 2019-06-02 2019-06-02 Outpatient [facility] [id number] Univers 10:15:00 10:15:00 OLYA ity of [facility] 2019-06-02 2019-06-02 Nurse JUAN Patel 1.2.840.114 [id number] Univers 00:00:00 00:00:00 Triage Cat GARAY 350.1.13.10 i ty of HOSPITAL 4.2.7.2.686 [place] as [phone] [address] 2019-05-31 2019-05-31 Telephone Naseem [facility] 1.2.840.114 [id number] Univers 00:00:00 00:00:00 Grant Trevizo 350.1.13.10 ity of [place] [phone] Tn dical nal 092 [facility] 2019-05-24 2019-05-24 Patient Doctor JUAN 1.2.840.114 [id number] Univers 00:00:00 00:00:00 Secure UnassSHAYY ortega 350.1.13.10 ity of [place] [facility] 4.2.7.2.686 [place] as [phone] [address] 2019-05-17 2019-05-17 Patient Orestes [facility] 1.2.840.114 [id number] Univers 00:00:00 00:00:00 Outreach Renetta N Health 350.1.13.10 i ty of [place] 4.2.7.2.686 [place] as Professio [phone] [address] Office Building One 2019-05-11 2019-05-11 Outpatient R [facility] [id number] Univers 13:40:00 14:48:32 PETER ity of [facility] 2019-05-11 2019-05-11 Office [facility] 1.2.840.114 [id number] Univers 13:32:39 14:48:32 Visit Maximus Joseline 350.1.13.10 i ty of [place].2.[place] [phone] [address] 2019-04-26 2019-04-26 Telephone [facility] 1.2.840.114 [id number] Univers 00:00:00 00:00:00 Maximus Trevizo 350.1.13.10 i ty of [place] [phone] [address] 2019-04-25 2019-04-25 Letter Neurology [facility] 1.2.840.114 [id number] Univers 00:00:00 00:00:00 (Out) Y HEALTH 350.1.13.10 i ty of CLINICS 4[place]2.7.2.[place] [phone] [facility] [address] 2019-04-24 2019-04-24 [facility] 1.2.840.114 [id number] Univers 12:05:00 15:15:00 Encounter Olya Trevizo 350.1.13.10 ity of [place] Surgical [phone] [facility] [address] 2019-04-24 2019-04-24 Transition Kalyani Tran 1.2.840.114 [id number] Univers 00:00:00 00:00:00 of Care Inocencio Wills 350.1.13.10 ity of [place] 4[place]2.7.2.[place] [phone] [facility] [address] 2019-04-18 2019-04-21 Hospital Mao Rodrigues 1.2.840.114 [id number] Univers 08:40:00 13:03:00 Encounter S Shayy 350.1.13.[address] [facility] 4.2.7.2.686 [place] as [phone] [facility] [address] 2019-04-19 2019-04-19 Telephone Chloe Reese [facility] 1.2.840.114 [id number] Univers 00:00:00 00:00:00 Cam [place] 350.1.13.10 i ty of [place]2.[place].2.[place] [phone] Tn dical nal 134 [facility] 2019-04-18 2019-04-18 Outpatient R MAO RODRIGUES [facility] [id number] Univers 08:30:00 08:30:00 ity of [facility] 2019-04-14 2019-04-14 Office [facility] 1.2.840.114 [id number] Univers 15:40:06 16:24:42 Visit [facility] 350.1.13.10 it y of [place] 4.2.7.2.686 [place] as Professio [phone] Tn dical nal 044 [facility] 2019-04-14 2019-04-14 Patient Cyn [facility] 1.2.840.114 [id number] Univers 00:00:00 00:00:00 Outreach Glenys [facility] 350.1.13.10 ity of [place] 4.2.7.2.686 [place] as Professio [phone] Tn dical nal [address] [facility] 2019-04-14 2019-04-14 Telephone [facility] 1.2.840.114 [id number] Univers 00:00:00 00:00:00 Olya [facility] 350.1.13.10 it y of Surgical 4.2.7.2.686 [place] as Specialti [phone] Tn dical es 198 [facility] 2019-04-14 2019-04-14 Telephone [facility] 1.2.840.114 [id number] Univers 00:00:00 00:00:00 Maximus Trevizo 350.1.13.10 i ty of [place]2.[place].2.[place] [phone] Tn dical nal 044 [facility] 2019-04-13 2019-04-13 Refdb [facility] 1.2.722.722 [id number] Univers 00:00:00 00:00:00 Teo Trevizo 350.1.13.10 i ty of [place]2.[place].2.[place] [phone] Tn dical nal [address] [place] [address] 2019-04-07 2019-04-07 Office [facility] 1.2.840.114 [id number] Univers 07:44:27 09:37:11 Visit Maximus Trevizo 350.1.13.10 i ty of [place]2.[place].2.[place] [phone] [address] 2019-04-07 2019-04-07 Telephone [facility] 1.2.840.114 [id number] Univers 00:00:00 00:00:00 Maximus Trevizo 350.1.13.10 i ty of [place] 4.2.[place].2.[place] [phone] [address] 2019-04-03 2019-04-03 Outpatient O AMIE [facility] [id number] Univers 16:17:03 23:59:[address] [facility] [place] [place] 2018-12-09 2018-12-09 Telephone [facility] 1.2.840.114 [id number] Univers 00:00:00 00:00:00 Jose Trevizo 350.1.13.10 i ty of [place].2.[place] [phone] [address] 2018-11-29 2018-11-29 Routine Chloe Reese [facility] 1.2.582.067 [id number] [id number] Univers 16:02:20 16:42:16 Raleigh Trevizo 350.1.13.10 ity of Visit [place] 4.2.7.2.[place] [phone] [address] 2018-11-25 2018-11-25 Emergency Elijah [facility] 1.2.125.329 [id number] Univers 21:54:39 22:48:00 Ranjit Trevizo 350.1.13.10 i ty of [place] 4.2.[place].2.[place] [phone] [address] 2018-11-25 2018-11-25 Telephone Chloe Reese [facility] 1.2.840.114 [id number] Univers 00:00:00 00:00:00 Raleigh Trevizo 350.1.13.10 i ty of [place] 4.2.7.2.[place] [phone] [address] 2018-11-25 2018-11-25 Nurse JUAN Elise 1.2.840.114 [id number] Univers 00:00:00 00:00:00 Triage Jackelin ESTESY 350.1.13.10 it y of [facility] 4.2.7.2.686 [place] as [phone] [facility] [address] 2018-11-24 2018-11-24 Patient Kalyani Garcia 1.2.840.114 [id number] Univers 00:00:00 00:00:00 Outreach Roseanne Wills 350.1.13.10 ity of [place] 4.2.7.2.686 [place] [phone] [facility] [address] 2018-11-24 2018-11-24 Telephone Dunia [facility] 1.2.840.114 [id number] Univers 00:00:00 00:00:00 Jose Trevizo 350.1.13.10 i ty of [place] 4[place]2.7.2.[place] [phone] [address] 2018-11-23 2018-11-23 Emergency Singer [facility] 1.2.876.164 [id number] Univers 13:27:49 19:20:00 Darryn Trevizo 350.1.13.10 i ty of [place] 4.2.7.2.[place] [phone] [address] 2018-11-23 2018-11-23 Telephone Dunia [facility] 1.2.840.114 [id number] Univers 00:00:00 00:00:00 Jose Trevizo 350.1.13.10 i ty of [place] 4[place]2.7.2.[place] [phone] [address] 2018-11-20 2018-11-22 Hospital [facility] 1.2.840.114 [id number] Univers 15:12:00 19:15:00 Encounter Jose Trevizo 350.1.13.10 ity of [place] 4.2.7.2.[place] [phone] [facility] [address] 2018-11-20 2018-11-20 Nurse JUAN Cortes 1.2.840.114 [id number] Univers 00:00:00 00:00:00 Triage Renettazandra GARAY 350.1.13.10 it y of [facility] 4.2.7.2.686 [place] as [phone] [facility] [address] 2018-11-20 2018-11-20 Orders Doctor JUAN 1.2.840.114 [id number] Univers 00:00:00 00:00:00 Only Unassigned, SHAYY 350.1.13.10 ity of [place] [facility] 4.2.7.2.686 [place] as [phone] [facility] [address] 2018-11-18 2018-11-18 Routine Diclemente, [facility] 1.2.840.114 [id number] Univers 10:21:53 11:38:24 Jose Trevizo 350.1.13.10 ity of [place].2.[place] [phone] [address] 2018-11-14 2018-11-17 Routine Diclemente, [facility] 1.2.840.114 [id number] Univers 10:03:04 13:42:26 Jose Trevizo 350.1.13.10 ity of Visit [place] 4.2.7.2.[place] [phone] [address] 2018-11-17 2018-11-17 Routine Diclemente, [facility] 1.2.840.114 [id number] Univers 12:09:08 13:31:39 Jose Trevizo 350.1.13.10 ity of Visit [place] 4.2.7.2.[place] [phone] [facility] 134 [facility] 2018-11-14 2018-11-14 [facility] Chloe Reese [facility] 1.2.840.114 [id number] Univers 21:18:00 22:45:00 Encounter Raleigh Trevizo 350.1.13.10 ity of [place] 4.2.7.2.[place] [phone] [facility] [address] 2018-11-14 2018-11-14 [facility] 1.2.840.114 [id number] Univers 11:26:24 21:17:00 Encounter Jose Trevizo 350.1.13.10 ity of [place] 4.2.7.2.[place] [phone] [facility] [address] 2018-11-14 2018-11-14 Orders Doctor JUAN 1.2.840.114 [id number] Univers 00:00:00 00:00:00 Only Unassigned, SHAYY 350.1.13.10 ity of [place] [facility] 4.2.7.2.686 [place] as [phone] [facility] [address] 2018-11-14 2018-11-14 Nurse JUAN Santos 1.2.840.114 [id number] Univers 00:00:00 00:00:00 Triage Rosy S SHAYY 350.1.13.10 ity of HOSPITAL 4.2.7.2.686 [place] as [phone] [facility] [address] 2018-11-14 2018-11-14 Telephone [facility] 1.2.840.114 [id number] Univers 00:00:00 00:00:00 Jose Trevizo 350.1.13.10 i ty of [place] 4[place]2.[place].2.[place] [phone] [facility] 134 [facility] 2018-11-10 2018-11-11 [facility] 1.2.840.114 [id number] Univers 14:24:00 17:00:00 Encounter Jose Trevizo 350.1.13.10 ity of [place] 4.2.7.2.[place] [phone] [facility] [address] 2018-11-11 2018-11-11 Case [facility] 1.2.840.114 [id number] Univers 00:00:00 00:00:00 Management Jose [place] 350.1.13.10 ity of [place] 4[place]2.[place].2.[place] [phone] [address] 2018-11-10 2018-11-10 [facility] Josianebryce hospital[facility] 1.2.840.114 [id number] Univers 10:54:59 14:23:00 Encounter Jose Trevizo 350.1.13.10 ity of [place] 4.2.7.2.[place] [phone] [facility] [address] 2018-11-10 2018-11-10 Routine [facility] 1.2.840.114 [id number] Univers 12:45:49 13:00:49 Jose [place] 350.1.13.10 ity of Visit [place].2.7.2.[place] [phone] [address] 2018-11-07 2018-11-07 Patient HAY Beatty 1.2.305.492 [id number] Univers 00:00:00 00:00:00 Secure [facility] R [facility] 350.1.13.10 ity of CLIN[place] 4[place]2.7.2.[place] [phone] [address] 2018-11-07 2018-11-07 Telephone [facility] 1.2.840.114 [id number] Univers 00:00:00 00:00:00 Jose Trevizo 350.1.13.10 i ty of [place] 4.2.7.2.[place] [phone] [address] 2018-11-05 2018-11-05 Nurse JUAN Santos 1.2.840.114 [id number] Univers 00:00:00 00:00:00 Triage Rosy GARAY 350.1.13.10 ity of HOSPITAL 4.2.7.2.686 [place] as [phone] [facility] [address] 2018-11-03 2018-11-03 [facility] 1.2.840.114 [id number] Univers 10:55:07 23:59:00 Encounter Jose Trevizo 350.1.13.10 ity of [place] 4.2.7.2.[place] [phone] [facility] [address] 2018-11-03 2018-11-03 Routine [facility] 1.2.840.114 [id number] Univers 13:54:15 16:42:19 Jose Trevizo 350.1.13.10 ity of Visit [place] 4.2.7.2.[place] [phone] [facility] 134 [facility] 2018-11-01 2018-11-01 Youth Director 1, [facility] Us Room [facility] 1 .2.840.114 [id number] [facility] 13:11:27 15:24:28 Visit Tri, Bud R [employer] 350.1.13.10 ity of CLINICS 4.2.7.2.[place] [phone] [facility] [address] 2018-11-01 2018-11-01 Patient Rogerio[facility] 1.2.049.648 [id number] Univers 00:00:00 00:00:00 Secure Msg Gabby R Y HEALTH 350.1.13.10 ity of CLINICS 4.2.7.2.[place] [phone] [facility] [address] 2018-11-01 2018-11-01 [facility] 1.2.840.114 [id number] Univers 00:00:00 00:00:00 Jose Trevizo 350.1.13.10 i ty of [place] 4.2.7.2.[place] [phone] [facility] 134 [facility] 2018-10-31 2018-10-31 [facility] 1.2.840.114 [id number] Univers 10:58:00 12:45:00 Encounter Belem Trevizo 350.1.13.10 ity of [place] 4.2.7.2.[place] [phone] [place] [address] 2018-10-28 2018-10-28 Routine Paulie, [facility] 1.2.840.114 [id number] Univers 08:14:34 15:50:40 Belem Trevizo 350.1.13.10 ity of Visit [place] 4.2.7.2.686 [place] [phone] Tn dical pending [facility] to [facility] 134 [facility] 2018-10-28 2018-10-28 Hospital Chloe Reese [facility] 1.2.840.114 [id number] Univers 10:33:30 14:55:00 Encounter Belem Apodaca 350.1.13.1 0 ity of [place] 4.2.7.2.[place] [phone] [address] 2018-10-28 2018-10-28 Patient Doctor JUAN 1.2.840.114 [id number] Univers 00:00:00 00:00:00 Secure Msg Unassigned, SHAYY 350.1.13.10 ity of [place] [facility] 4.2.7.2.686 [place] as [phone] [facility] [address] 2018-10-24 2018-10-25 Routine Faculty, Moisés Parra [facility] 1.2 .840.114 [id number] Univers 10:00:19 11:32:24 Brandee Odom TERMITE CONTROL REPRESENTATIVE 350.1.1 3.10 ity of Visit REGIONAL 4.2.7.2.686 [place] as MATERNAL [phone] Med ical & CHILD 107 [facility] 2018-10-25 2018-10-25 Patient HAY Beatty 1.2.676.233 [id number] Univers 00:00:00 00:00:00 Secure Msg Gabby R Y HEALTH 350.1.13.10 ity of CL[place]2.[place].2.[place] [phone] [facility] [address] 2018-10-25 2018-10-25 Orders Doctor JUAN 1.2.840.114 [id number] Univers 00:00:00 00:00:00 Only Unassigned, SHAYY 350.1.13.10 ity of [place] [facility] 4.2.7.2.686 [place] as [phone] [facility] [address] 2018-10-24 2018-10-24 Hospital Chloe Reese [facility] 1.2.840.114 [id number] Univers 13:33:00 15:30:00 Encounter Raleigh Trevizo 350.1.13.10 ity of [place] 4[place]2.[place].2.[place] [phone] [facility] [address] 2018-10-24 2018-10-24 Outpatient Campos ODOM BRANDEE [facility] [id number] Univers 10:00:00 11:51:01 ity of [facility] 2018-10-24 2018-10-24 Telephone Dunia [facility] 1.2.840.114 [id number] Univers 00:00:00 00:00:00 Jose Trevizo 350.1.13.10 i ty of [place].2.[place] [phone] [facility] 134 [facility] 2018-10-24 2018-10-24 Telephone [facility] 1.2.840.114 [id number] Univers 00:00:00 00:00:00 Grant Trevizo 350.1.13.10 ity of [place].2.[place].2.[place] [phone] [facility]92 [facility] 2018-10-21 2018-10-21 Youth Director 1, [facility] 1.2.840.114 [id number] Univers 16:25:06 16:40:06 Visit Chloe Reese [place] Trevizo 350.1.13.10 ity of [place] 4.2.7.2.[place] [phone] [facility] [address] 2018-10-21 2018-10-21 Routine Paulie [facility] 1.2.840.114 [id number] Univers 14:13:39 16:02:12 Belem Trevizo 350.1.13.10 ity of Visit [place] 4.2.7.2.[place] [phone] Tn dical nal 134 [facility] 2018-10-21 2018-10-21 Orders Doctor JUAN 1.2.840.114 [id number] Univers 00:00:00 00:00:00 Only Unassigned, SHAYY 350.1.13.10 ity of [place] [facility]OSPITAL 4.2.7.2.686 [place] as [phone] [facility] [address] 2018-10-20 2018-10-20 Hospital [facility] 1.2.840.114 [id number] Univers 10:59:20 23:59:00 Encounter Jose Joseline 350.1.13.10 ity of [place] 4.2.7.2.[place] [phone] [facility] [address] 2018-10-12 2018-10-12 Patient Doctor JUAN 1.2.840.114 [id number] Univers 00:00:00 00:00:00 Secure Msg Unassigned, SHAYY 350.1.13.10 ity of [place] [facility] 4.2.7.2.686 [place] as [phone] [facility] [address] 2018-09-30 2018-09-30 Office [facility] 1.2.483.753 [id number] [facility] 14:06:24 14:55:33 Visit Chris Wild Joseline 350.1.13.10 i ty of [place].2.[place] [phone] [facility] 220 [facility] 2018-09-14 2018-09-14 Outpatient [facility] [id number] Univers 13:54:55 13:59:[address] [facility] Results Test Description Test Time Test Comments Results Result Comments Source ACETAMINOPHEN 2022-03-11 00:28:27 Test Item Value Reference Range Interpretation Comme nts ACETAMINOP (test code = 2935136386) 10.0-30.0 L ADRIENNE (test code = ADRIENNE) Toxic: Greater than 200 ug/mL @ 4 hour post ingestion or greater than 50 ug/mL @ 12 hour post ingestion Lab Interpretation (test code = Abnormal 31766-4) [facility]:20[facility]44 ALCOHOL<10mg/dL03/10/2022 6:20 PM [facility]<10 [id number] Toxic>100 Depression of CURATORIAL ASSISTANT>400 Fatalities ReportedMay[facility] HospitalSALICYLATE2022-12-14 00:18:36 SALICYLATE<10mg/L105/11/2021 6:18 PM [facility]Therapeutic Range: ? Analgesic and Antipyretic Use ? 20- 100 mg/L ? ? Anti-Inflammatory Use ? 100-250 mg/L Toxic Range: ? Greater than 300 mg/LUnEl [facility] HospitalCOMP. METABOLIC PANEL (36095)2022-03-11 00:17:50 Test Item Value Reference Range Interpretation Comments NA (test code = 138 mmol/L 135-145 8396992440) K (test code = 4.2 mmol/L 3.5-5.0 3619371362) CL (test code = 102 mmol/L 98-108 9578615007) CO2 TOTAL (test code = 32 mmol/L 23-31 H 4210973636) AGAP (test code = 2-16 5939679121) BUN (test code = 14 mg/dL 7-23 5465315418) GLUCOSE (test code = 57 mg/dL 70-110 L 7237334297) CREATININE (test code = 0.85 mg/dL 0.50-1.04 0625190904) TOTAL BILI (test code = 0.3 mg/dL 0.1-1.9 1606885906) CALCIUM (test code = 9.8 mg/dL 8.6-10.6 5078543559) T PROTEIN (test code = 6.8 g/dL 6.3-8.2 5083058918) ALBUMIN (test code = 4.2 g/dL 3.5-5.0 6332949664) ALK PHOS (test code = 66 U/L 34-122 4193509333) ALTv (test code = 12 U/L 5-35 1742-6) AST(SGOT) (test code = 15 U/L 13-40 1380165789) eGFR (test code = mL/min/1.73m2 6356947025) ADRIENNE (test code = ADRIENNE) Association of [...] tests). Lab Interpretation Abnormal (test code = 38969-0) [facility] WITH [id number] 00:11:30 Test Item Value Reference Range Interpretation Comments WBC (test code = See_Comment [Automated 9130-2) message] The sy stem which generated this result transmitted reference range : 4.30 - 11.10 10*3/?L. The reference range was not used to interpret this result as normal/abnormal . RBC (test code = See_Comment [Automated 563-6) message] The sy stem which generated this [...] RDW-SD (test code = 48.5 fL 39.0-49.9 82907-8) RDW-CV (test code = 13.9 % 12.0-15.5 788-0) PLT (test code = See_Comment [Automated 777-3) message] The sy stem which generated this result transmitted reference range : 166 - 358 10*3/ ?L. The reference r paulina was not used to interpret this result as normal/abnormal . MPV (test code = 10.6 fL 9.5-12.9 23053-7) NRBC/100 WBC (test See_Comment [Automat ed code = 4258397399) message] The system which generated this result transmitted reference range : 0.0 - 10.0 /100 WBCs. The refer ence range was not u sed to interpret th is result as normal/abnormal . NRBC x10^3 (test code See_Comment [Auto mated = [id number]) message] The s ystem which generated this result transmitted reference range : 10*3/?L. The reference range was not used to interpret this result as normal/abnormal . GRAN MAT (NEUT) % 62.2 % (test code = 770-8) IMM GRAN % (test code 0.30 % = 0069799084) LYMPH % (test code = 27.1 % 736-9) MONO % (test code = 7.8 % 5905-5) EOS % (test code = 1.5 % 713-8) BASO % (test code = 1.1 % 706-2) GRAN MAT x10^3(ANC) 4.56 10*3/uL 1.88-7.09 (test code = 0055491854) IMM GRAN x10^3 (test 0.00-0.06 code = 7026691334) LYMPH x10^3 (test code 1.99 10*3/uL 1.32-3.29 = 731-0) MONO x10^3 (test code 0.57 10*3/uL 0.33-0.92 = 742-7) EOS x10^3 (test code = 0.11 10*3/uL 0.03-0.39 711-2) BASO x10^3 (test code 0.08 10*3/uL 0.01-0.07 H = 704-7) Lab Interpretation Abnormal (test code = 08898-5) [facility] [id number] 23:46:00 Test Item Value Reference Range Interpretation Comments POCT PREG (test code = 1605) NEGATIVE On board controls acceptable with present C Line (test code = 3574) POCT PREG LOT # (test code = 3575) [id number] POCT PREG TEST DATE (test 06/27/2023 code = 3576) Lab Interpretation (test code = Normal 32053-9) [facility] URINALYSIS W SPECIFIC [id number] 16:50:00 Test Item Value Reference Range Interpretation [...] U APPEAR (test code = clear 3267) [facility] URINALYSIS W SPECIFIC [id number] 16:50:00 Test Item Value Reference Range Interpretation [...] U APPEAR (test code = clear 3267) [facility] Notes Date/Time Note Provider Source 2022-11-27 Formatting of this note might be differe nt from the original. Ana Paula Prajapati MA [facility] 13:28:48-00:00 Patient came in with nausea fever and said she feels like she is going to pass out, both ears are ringing and dizzy. She fell last night and again today. I took patients vital signs and b/p was 81/54 , temp 99.5, spoke with GURU Amaro and she suggested patient go to the ER with blood pressure that low for proper treatment, fluids if needed. Electronically signed by Ana Paula Prajapati MA at 1:35 PM CDT 2022-11-19 Formatting of this note might be differe nt from the original. Estela Stephenson [facility] 15:47:49-00:00 Pt called and states that du e to insurance Clonazepam is needing to be in the 0.5 mg. She is requesting for dosage to be changed so that she can get her medication. Please advise. Please send to the [facility] in [place]. Please advise. Pt is out of medication. 2022-10-26 Formatting of this note might be differe nt from the original. Abril Urias RN [facility] 10:03:22-00:00 Please review and resend medication if appropria te. Electronically signed by Abril Urias, RAMÓN at 0 10/26/2022 10:03 AM CDT 2022-10-26 Formatting of this note might be differe nt from the original. Grisel More [facility] 09:55:55-00:00 Pt is requesting medication to be resent to the correct pharmacy at [facility] in [place] for her adderall 20 mg. Electronically signed by Grisel More at 9:57 AM CDT 2022-10-26 Formatting of this note is different from the or iginal. [facility] 08:16:03-00:00 Recent Visits Date Type Provider Dept 10/21/22 Office Visit Arik Benz MD [facility] 08/21/22 Office Visit Donna Lopez MD [facility] 08/04/22 Office Visit Arik Benz MD [facility] 01/27/22 Office Visit Arik Benz MD [facility] 11/18/21 Office Visit Arik Benz MD [facility] 08/26/21 Office Visit Arik Benz MD [facility] Showing recent visits within past 540 days with a meds authorizing provider and meeting all other requirements Future Appointments Date Type Provider Dept 12/08/22 Appointment Arik Benz MD [facility] 02/25/23 Appointment Arik Benz MD [facility] Showing future appointments within next 150 days with a meds authorizing provider and meeting all other requirements Last refill was dextroamphetamine-amphetamine (ADDERALL) 20 mg tablet 90 tablet 0 10/21/2022 -- Sig: Take 1 tablet by mouth in the morning and 1 tablet at noon and 1 tablet in the evening. Sent to pharmacy as: dextroamphetamine-amphetami ne 20 mg tablet (AdderalL) Class: eRX 2022-10-24 Formatting of this note might be differe nt from the original. Molly Santos [facility] 09:52:24-00:00 Sharyn Roger is a 42 year old female Per patient - [facility] dextroamphetamine-amphetamine (ADDERALL) 20 mg tablet Please send to [facility] [id number] Electronically signed by Molly Santos at 09/27 10:00 AM CDT 2022-10-19 Formatting of this note might be differe nt from the original. Abril Urias RN [facility] 13:09:08-00:00 Patient states she started h aving back pain last night that started to move toward her groin. Patient states she also passed two kidney stones and had blood in her urine. Patient states she is still hav ing pain and thinks she may have another kidney stone. Patient has appointment with Dr. Benz today at 1600. Spoke with Dr. Benz about Triage. Dr. Benz advised patient be seen in ER today and reschedule office visit. Patient verbalizes understanding and agrees with plan. Patient appt for today cancelled and appointment schedule for Wednesday10/21/[address] Benz. Informed patient to bring paperwork from ER visit if not going to [facility]. Patient verbalizes understanding. Electronically signed by Abril Urias, RN at 0 10/19/2022 1:12 PM CDT 2022-10-19 Formatting of this note might be differe nt from the original. Grisel More [facility] 12:38:24-00:00 Pt is wanting to know if she should go too the ER due to passing kidney stones of qty 2 and has stream of blood passing currently. Notifying nurse of a triage. Electronically signed by Grisel More at 12:41 PM CDT 2022-10-14 Formatting of this note might be differe nt from the original. Rosy Sauer [facility] 12:44:04-00:00 Patient is calling back abou t getting pain medication for her back. She has not been able to apple e appointment with pain management due to getting auth from insurance. Patient is asking for another week of medication until referral is complete. Electronically signed by Rosy Sauer at 12:48 PM CDT 2022-10-14 Formatting of this note might be differe nt from the original. Emilia Da Silva [employer] [facility] 07:54:11-00:00 Attempted to contact patient. No answer. Voicema il not set up. Emilia Da Silva LVN 10/14/2022 7:54 AM 2022-10-13 Formatting of this note might be differe nt from the original. Barbara Cárdenas [facility] 17:47:07-00:00 Sharyn Roger is a 42 year old female Patient is calling stating s he does not have access to [employer]. Asking for a call back to discuss previous message. Please advise [phone] (home) Electronically signed by Barbara Cárdenas at 2022 5:48 PM CDT 2022-10-13 Formatting of this note is different fro m the original. Abril Urias RN [facility] 14:07:45-00:00 Disp Refills Start End BESSY HYDROcodone-acetaminophen (NORCO) 7.5-325 mg per tablet 20 tablet 0 10/06/2022 Last Refilled: 10/06/22 Notes: [facility] #[id number] [facility] [place] Recent Visits Date Type Provider Dept 08/21/22 Office Visit Donna Lopez MD [facility] 08/04/22 Office Visit Arik Benz MD [facility] 01/27/22 Office Visit Arik Benz MD [facility] 11/18/21 Office Visit Arik Benz MD [facility] 08/26/21 Office Visit Arik Benz MD [facility] Showing recent visits within past 540 days with a meds authorizing provider and meeting all other requirements Future Appointments Date Type Provider Dept 10/19/22 Appointment Arik Benz MD [facility] 12/08/22 Appointment Arik Benz MD [facility] Showing future appointments within next 150 days with a meds authorizing provider and meeting all other requirements Electronically signed by Abril Urias RN at 0 10/13/2022 2:08 PM CDT 2022-10-[address] [facility] 13:17:50-00:00 Pt called and is requesting a refill of HYDROcodone-acetaminophen (NORCO) 7.5-325 mg per tablet for pts broken back. She is out of meds. Please advise. [facility] #[id number] [facility] [address] [facility] [address] "
--- NOTE | 2022-11-27 14:31 | RAD REPORT ---
EXAM DESCRIPTION: RAD - Chest Single View - 11/27/2022 2:23 pm CLINICAL HISTORY: COUGH Chest pain. COMPARISON: Chest Single View dated 06/21/2022 FINDINGS: Portable technique limits examination quality. The lungs are grossly clear. The heart is normal in size. No displaced fractures. IMPRESSION: No acute intrathoracic process suspected.
[2022-11-27 14:49] LABS: Absolute Lymphocytes (CBC) 0.8 K/uL (0.7-4.9); Hematocrit 37.6 % (36.0-45.0); Lymphocytes % 15.6 % (15.3-44.8); MCV 91.7 fL (80-100); Platelets 199 thou/uL (152-406)
[2022-11-27] MEDS ORDERED: ONDANSETRON 4 MG/2 ML VIAL ONE (14:53)
[2022-11-27] MEDS ORDERED: FAMOTIDINE 20 MG/2 ML VIAL IV ONE (14:53)
[2022-11-27] MEDS ORDERED: NA CHLORIDE 0.9% 1,000 ML ONE (14:53)
[2022-11-27] MEDS ORDERED: KETOROLAC 30 MG/ML INJ ONE (14:53)
[2022-11-27] MEDS ORDERED: MECLIZINE HCL 12.5 MG TAB ONE (14:53)
[2022-11-27 15:00] LABS: Specific Gravity 1.012 (1.005-1.030)
[2022-11-27 15:02] LABS: Specific Gravity 1.012 (1.005-1.030); Urine Bacteria None Seen /HPF (<20); Urine Bilirubin NEGATIVE (Negative); Urine Blood Negative (Negative); Urine Clarity Turbid (Clear); Urine Color Colorless (Yellow); Urine Glucose NEGATIVE (Negative); Urine Protein NEGATIVE (Negative); Urine RBC <5 /HPF (None Seen); Urine Urobilinogen Normal (Normal)
[2022-11-27 15:06] LABS: Albumin 3.6 g/dL (3.4-5.0); Bilirubin Total 0.2 mg/dL (0.2-1.0); Potassium 3.9 mEq/L (3.5-5.1); Protein, Total 6.8 g/dL (6.4-8.2)
--- NOTE | 2022-11-27 15:45 | RAD REPORT ---
EXAM DESCRIPTION: CTAbdomen Pelvis W Contrast - 11/27/2022 3:32 pm CLINICAL HISTORY: Abdominal pain. low back pain;Abd pain COMPARISON: <Comparisons> TECHNIQUE: Biphasic CT imaging of the abdomen and pelvis was performed with 100 ml non-ionic IV cont rast. All CT scans are performed using dose optimization technique as appropriate and may include automated exposure control or mA/KV adjustment according to patient size. FINDINGS: The lung bases are clear. The liver, spleen, pancreas, adrenal glands and kidneys are within normal limits. No bowel obstruction, free air, free fluid or abscess. The appendix is normal. No evidence of signi ficant lymphadenopathy. No suspicious bony findings. IMPRESSION: No acute intra-abdominal or pelvic finding.
[2022-11-27] MEDS ORDERED: dexAMETHasone 10 MG/ML VIAL ONE (15:47)
--- NOTE | 2022-11-27 16:14 | ER ---
Nurse's Notes [facility] Name: Sharyn Franco Age: 42 yrs Sex: Female : 1980 Arrival Date: 11/27/2022 Time: 13:45 Bed 7 Private MD: Diagnosis: Acute pharyngitis, unspecified;Otitis media, unspecified, bilateral;Low back pain;Lower abdominal pain, unspecified Presentation: 11/27 13:53 Chief complaint: Patient states: Fever and near syncope for the last few days, patient nj1 concerned she may have an ear infection on the left ear also. Went to see her PCP and was advised to come to ED for evaluation and treatment. 13:53 Method Of Arrival: Ambulatory nj1 13:53 Coronavirus screen: Vaccine status: Patient reports being unvaccinated. Ebola Screen: nj1 Patient denies travel to an Ebola-affected area in the 21 days before illness onset. Initial Sepsis Screen: Does the patient meet any 2 criteria? No. Patient's initial sepsis screen is negative. Does the patient have a suspected source of infection? No. Patient's initial sepsis screen is negative. Risk Assessment: Do you want to hurt yourself or someone else? Patient reports no desire to harm self or others. Onset of symptoms was October 2022. 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 - Social history:: Smoking status: Reported history of juuling and/or vaping. Screenin:30 [facility] ED Fall Risk Assessment (Adult) History of falling in the last 3 months, ko1 including since admission No falls in past 3 months (0 pts) Confusion or Disorientation No (0 pts) Intoxicated or Sedated No (0 pts) Impaired Gait No (0 pts) Mobility Assist Device Used No (0 pt) Altered Elimination No (0 pt) Score/Fall Risk Level 0 - 2 = Low Risk Oriented to surroundings, Maintained a safe environment, Educated pt \\T\\ family on fall prevention, incl call for assistance when getting out of bed, Assessed \\T\\ reinforced patient's understanding of fall precautions, Provided non-skid footwear, Hourly rounding (assess needs \\T\\ fall precautionary measures) done, Used ambulatory aids as needed (educated on \\T\\ assisted with), Used gait belt as appropriate. Abuse screen: Denies threats or abuse. Denies injuries from another. Nutritional screening: No deficits noted. Tuberculosis screening: No symptoms or risk factors identified. Assessment: 14:30 General: Appears in no apparent distress. comfortable, Behavior is calm, cooperative, ko1 appropriate for age. Pain: Complains of pain in back. Neuro: No deficits noted. Cardiovascular: Reports. Respiratory: Reports cough that is non-productive, Airway is patent Respiratory effort is even, unlabored, Breath sounds are clear bilaterally. GI: No deficits noted. : No deficits noted. EENT: Throat is pink Reports nasal congestion pain in left ear and right ear. Derm: No deficits noted. Musculoskeletal: No deficits noted. 16:38 Reassessment: Patient appears in no apparent distress at this time. Patient and/or iw family updated on plan of care and expected duration. Pain level reassessed. Patient is alert, oriented x 3, equal unlabored respirations, skin warm/dry/pink. Patient states feeling better. Patient states symptoms have improved. Vital Signs: 13:53 BP 98 / 58; Pulse 83; Resp 18; Temp 98.4(O); Pulse Ox 100% on R/A; Weight 56.7 kg; nj1 Height 5 ft. 5 in. ; Pain 10/10; 15:04 BP 111 / 70; Pulse 82; Resp 16; Pulse Ox 99% on R/A; ko1 16:38 BP 118 / 72; Pulse 89; Resp 16; Pulse Ox 98% on R/A; iw 13:53 Body Mass Index 20.80 (56.70 kg, 165.1 cm) nj1 13:53 Pain Scale: Adult [facility] ED Course: 13:46 Patient arrived in ED. mg5 13:48 Gustavo Mckenzie PA is PHCP. cp 13:48 Kosta Garcia MD is Attending Physician. cp 14:09 Triage completed. nj1 14:10 Elvia Trotter, RAMÓN is Primary Nurse. iw 14:10 Arm band placed on. nj1 14:25 XRAY Chest (1 view) In Process Unspecified. EDMS 14:30 Patient has correct armband on for positive identification. Bed in low position. Call ko1 light in reach. Side rails up X2. Provided Education on: na. Client placed on continuous cardiac and pulse oximetry monitoring. NIBP monitoring applied. monitor and storage bin tender on. Door closed. Noise minimized. Lights dimmed. Warm blanket given. 14:31 COVID-19 SARS RT PCR Sent. ko1 14:31 Influenza Screen (a \\T\\ B) Sent. ko1 14:31 Strep Sent. ko1 14:35 Inserted saline lock: 22 gauge in right antecubital area, using aseptic technique. ko1 Blood collected. 14:39 CBC with Diff Sent. ko1 14:39 CMP Sent. ko1 14:39 Lipase Sent. ko1 14:40 [place] Screen Profile Sent. ko1 14:55 Test, Urine Sent. ko1 14:55 Urinalysis w/ reflexes Sent. ko1 15:03 No provider procedures requiring assistance completed. ko1 15:33 Throat Culture Sent. ko1 15:34 CT Abd/Pelvis - IV Contrast Only In Process Unspecified. EDMS 16:38 IV discontinued, intact, bleeding controlled, No redness/swelling at site. Pressure iw dressing applied. Administered Medications: 14:45 Drug: NS 0.9% IV 1000 ml Route: IV; Rate: 1 bolus; Site: right antecubital; ko1 15:45 Follow up: IV Status: Completed infusion iw 14:46 Drug: Ondansetron IVP 4 mg Route: IVP; Site: right antecubital; ko1 15:50 Follow up: Response: No adverse reaction iw 14:50 Drug: TORadol - Ketorolac IVP 15 mg Route: IVP; Site: right antecubital; ko1 15:50 Follow up: Response: No adverse reaction; Pain is decreased iw 14:55 Drug: Meclizine PO 25 mg Route: PO; ko1 16:37 Follow up: Response: No adverse reaction iw 14:56 Drug: Famotidine IVP 20 mg Route: IVP; Site: right antecubital; ko1 16:37 Follow up: Response: No adverse reaction iw 15:37 Drug: Decadron - Dexamethasone IVP 10 mg Route: IVP; Site: right antecubital; ko1 16:37 Follow up: Response: No adverse reaction iw 16:37 Not Given (Patient Refused): Acetaminophen PO 650 mg PO once iw Medication: 14:30 VIS not applicable for this client. ko1 Outcome: 16:14 Discharge ordered by . cp 16:38 Discharged to home ambulatory. iw 16:38 Condition: good 16:38 Discharge instructions given to patient, Instructed on discharge instructions, follow up and referral plans. medication usage, Demonstrated understanding of instructions, follow-up care, medications, Prescriptions given X 3. 16:40 Patient left the ED. iw Signatures: Dispatcher [employer] EDElvia Booker RN RN Gustavo Mckenzie PA PA cp Oliver, Kathy, RN RN belkis Grisel Marinelli RN RN [facility] Chantal Allen mg5 Corrections: (The following items were deleted from the chart) 14:10 14:09 Allergies: "Cosmetic"; [place] [id number] 16:39 14:09 Allergies: QUINOLONES; [facility] 16:39 14:09 Allergies: Ultram; [facility]
--- NOTE | 2022-11-27 16:14 | EDPHYS ---
Physician Documentation [facility] Name: Sharyn Franco Age: 42 yrs Sex: Female : 1980 Arrival Date: 11/27/2022 Time: 13:45 Bed 7 Private MD: ED Physician Kosta Garcia HPI: 11/27 14:20 This 42 yrs old Female presents to ER via Ambulatory with complaints of Low Blood cp Pressure, Sore Throat, Ear Pain - Ringing, Back Pain. 14:20 The patient has experienced near-syncope. cp 14:20 Onset: The symptoms/episode began/occurred for past few days. Associated signs and cp symptoms: Pertinent positives: abdominal pain, dizziness, headache, sore throat, ear fullness and low back pain from fall. Current symptoms: dizziness, sore throat, lower abdomen pain, lower back pain. 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 - Social history:: Smoking status: Reported history of juuling and/or vaping. ROS: 14:25 Constitutional: Negative for fever, poor PO intake. cp 14:25 Eyes: Negative for injury, pain, redness, and discharge. cp 14:25 ENT: Positive for sore throat, ear fullness, Negative for drainage from ear(s), difficulty swallowing, difficulty handling secretions. 14:25 Cardiovascular: Negative for chest pain, palpitations. 14:25 Respiratory: Negative for cough, shortness of breath, wheezing. 14:25 Abdomen/GI: Positive for abdominal pain, of the right lower quadrant and left lower quadrant, Negative for vomiting, diarrhea, constipation. 14:25 Back: Positive for pain at rest, pain with movement. 14:25 : Negative for urinary symptoms. 14:25 Neuro: Positive for dizziness, headache, near syncope, Negative for altered mental status. 14:25 All other systems are negative. Exam: 14:30 Constitutional: The patient appears in no acute distress, alert, awake, cp non-diaphoretic, non-toxic, well developed, well nourished, uncomfortable. 14:30 Head/Face: Normocephalic, atraumatic. cp 14:30 Eyes: Periorbital structures: appear normal, Pupils: equal, round, and reactive to light and accomodation, Extraocular movements: intact throughout, Sclera: no appreciated abnormality, Lids and lashes: appear normal, bilaterally. 14:30 ENT: External ear(s): are unremarkable, Ear canal(s): cerumen impaction, that is moderate, bilaterally, TM's: dullness, on the right, Nose: is normal, Mouth: Lips: moist, Oral mucosa: pink and intact, moist, Posterior pharynx: Airway: no evidence of obstruction, patent, Tonsils: no enlargement, no exudate, erythema, that is mild, exudate, is not appreciated. 14:30 Neck: ROM/movement: is normal, is supple, without pain, no range of motions limitations, no nuchal rigidity, Lymph nodes: no appreciated lymphadenopathy. 14:30 Chest/axilla: Inspection: normal. 14:30 Cardiovascular: Rate: normal, Rhythm: regular, Edema: is not appreciated, JVD: is not appreciated. 14:30 Respiratory: the patient does not display signs of respiratory distress, Respirations: normal, no use of accessory muscles, no retractions, labored breathing, is not present, Breath sounds: are clear throughout, no decreased breath sounds, no stridor, no wheezing. 14:30 Abdomen/GI: Inspection: abdomen appears normal, Bowel sounds: active, all quadrants, Palpation: soft, in all quadrants, mild abdominal tenderness, in the right lower quadrant and left lower quadrant. 14:30 Back: pain, that is moderate, of the lumbar area, left low back and right low back, ROM is painful, with all movement. 14:30 Skin: cellulitis, is not appreciated, no rash present. 14:30 Neuro: Orientation: to person, place \\T\\ time. Mentation: is normal, Motor: moves all fours, strength is normal, Sensation: is normal. Vital Signs: 13:53 BP 98 / 58; Pulse 83; Resp 18; Temp 98.4(O); Pulse Ox 100% on R/A; Weight 56.7 kg; nj1 Height 5 ft. 5 in. ; Pain 10/10; 15:04 BP 111 / 70; Pulse 82; Resp 16; Pulse Ox 99% on R/A; ko1 16:38 BP 118 / 72; Pulse 89; Resp 16; Pulse Ox 98% on R/A; iw 13:53 Body Mass Index 20.80 (56.70 kg, 165.1 cm) nj1 13:53 Pain Scale: Adult nj1 MDM: 13:52 Patient medically screened. 15:00 Differential Diagnosis: , uti, strep throat, pneumonia. cp 16:13 Data reviewed: vital signs, nurses notes, lab test result(s), radiologic studies. 16:13 I considered the following discharge prescriptions or medication management in the emergency department Medications were administered in the Emergency Department. See MAR. Response to treatment: the patient's symptoms have mildly improved after treatment, and as a result, I will discharge patient. 11/27 14:14 Order name: CBC with Diff; Complete Time: 15:15 11/27 15:15 Interpretation: Normal except: MN% 13.7. 11/27 14:14 Order name: CMP; Complete Time: 15:15 11/27 15:15 Interpretation: Normal except: NA 135; GFR 84; AST 6. 11/27 14:14 Order name: Lipase; Complete Time: 15:15 11/27 14:14 Order name: Test, Urine; Complete Time: 15:15 11/27 14:14 Order name: Urinalysis w/ reflexes; Complete Time: 15:15 11/27 15:15 Interpretation: Normal except: [facility] Turbid. 11/27 14:14 Order name: Strep 11/27 15:21 Interpretation: Reviewed. 11/27 14:14 Order name: [place] Screen Profile; Complete Time: 15:15 11/27 14:14 Order name: Influenza Screen (a \\T\\ B); Complete Time: 15:21 11/27 14:14 Order name: COVID-19 SARS RT PCR; Complete Time: 15:15 11/27 15:16 Interpretation: Reviewed. 11/27 15:22 Order name: Throat Culture EDWA 11/27 14:14 Order name: XRAY Chest (1 view); Complete Time: 15:15 11/27 14:14 Order name: CT Abd/Pelvis - IV Contrast Only; Complete Time: 15:53 11/27 15:55 Interpretation: Report reviewed. cp 11/27 14:14 Order name: IV Saline Lock; Complete Time: 14:39 cp 11/27 14:14 Order name: Labs collected and sent; Complete Time: 14:39 cp 11/27 15:58 Order name: PO challenge; Complete Time: 16:37 cp Administered Medications: 14:45 Drug: NS 0.9% IV 1000 ml Route: IV; Rate: 1 bolus; Site: right antecubital; ko1 15:45 Follow up: IV Status: Completed infusion iw 14:46 Drug: Ondansetron IVP 4 mg Route: IVP; Site: right antecubital; ko1 15:50 Follow up: Response: No adverse reaction iw 14:50 Drug: TORadol - Ketorolac IVP 15 mg Route: IVP; Site: right antecubital; ko1 15:50 Follow up: Response: No adverse reaction; Pain is decreased iw 14:55 Drug: Meclizine PO 25 mg Route: PO; ko1 16:37 Follow up: Response: No adverse reaction iw 14:56 Drug: Famotidine IVP 20 mg Route: IVP; Site: right antecubital; ko1 16:37 Follow up: Response: No adverse reaction iw 15:37 Drug: Decadron - Dexamethasone IVP 10 mg Route: IVP; Site: right antecubital; ko1 16:37 Follow up: Response: No adverse reaction iw 16:37 Not Given (Patient Refused): Acetaminophen PO 650 mg PO once iw Disposition Summary: 11/27/22 16:14 Discharge Ordered Location: Home cp Problem: new cp Symptoms: have improved cp Condition: Stable cp Diagnosis - Acute pharyngitis, unspecified cp - Otitis media, unspecified, bilateral cp - Low back pain cp - Lower abdominal pain, unspecified cp Followup: cp - With: Private Physician - When: 2 - 3 days - Reason: Recheck today's complaints Discharge Instructions: - Discharge Summary Sheet cp - Abdominal Pain, Adult cp - Acute Back Pain, Adult cp - Otitis Media, Adult cp - Pharyngitis cp - Sore Throat cp Forms: - Medication Reconciliation Form cp - Thank You Letter cp - Antibiotic Education cp - Prescription Opioid Use cp - Patient Portal Instructions cp - Leadership Thank You Letter cp Prescriptions: - Amoxicillin 875 mg Oral Tablet - take 1 tablet by ORAL route every 12 hours for 10 days; 20 tablet; Refills: 0, cp Product Selection Permitted - Zofran 4 mg Oral Tablet - take 1 tablet by ORAL route every 12 hours As needed; 20 tablet; Refills: 0, cp Product Selection Permitted - Medrol (Josesito) 4 mg Oral Tablets, Dose Pack - take 1 tablet by ORAL route as directed - follow package instructions; 1 cp packet; Refills: 0, Product Selection Permitted Addendum: 11/30/2022 06:59 Co-signature as Attending Physician, Kosta Garcia MD I reviewed the patient's care r n provided by the Advanced Practice Provider and agree with the diagnosis and treatment plan. Signatures: Dispatcher [employer] Elvia Velez RN RAMÓN iw Kosta Garcia MD MD rn Page, Corey, PA PA cp Oliver, Kathy, RN RN ko1 Grisel Marinelli RN RN nj1 Corrections: (The following items were deleted from the chart) 11/27 14:10 14:09 Allergies: "Cosmetic"; [place] [id number] 16:39 14:09 Allergies: QUINOLONES; [facility] 16:39 14:09 Allergies: Ultram; [facility]
[2022-11-27] MEDS ORDERED: ACETAMINOPHEN 325 MG TABLET ONE (16:34)
[2022-11-27 16:46] VITALS: TEMP 98.4
[2022-11-27 16:49] VITALS: BP 118/72; O2SAT 98
== END 2022-11-27 16:40 | disposition home or self-care (01) ==
LOC: ER 13:45
DX: J02.9 Acute pharyngitis, unspecified (principal); H66.93 Otitis media, unspecified, bilateral; M54.50 Low back pain, unspecified; R10.30 Lower abdominal pain, unspecified; Z20.822 Contact with and (suspected) exposure to COVID-19; Z88.5 Allergy status to narcotic agent
CPT/HCPCS: 96361; 87070; 85025; 81001; 36415; 86308; 81025; 87081; 83690; 80053; 87635; 87804 ×2; 74177; 71045; 96375; 96374; 99285; Q9967; J8597; J1100; J2405; J7030

== ENCOUNTER 2023-06-29 14:17 | Emergency (ER) | payer OTHER, SELFPAY ==
[2023-06-29] MEDS ORDERED: DIPHENHYDRAMINE 50 MG/ML VIAL ONE (14:59)
[2023-06-29] MEDS ORDERED: MORPHINE 4 MG/ML SYR ONE (14:59)
[2023-06-29] MEDS ORDERED: ONDANSETRON 4 MG/2 ML VIAL ONE (14:59)
[2023-06-29 15:14] LABS: Albumin 3.1 g/dL (3.4-5.0); Albumin/Globulin Ratio 0.9 (1.1-1.8); Anion Gap 5.5 mEq/L (5.0-15.0); Bilirubin Total 0.1 mg/dL (0.2-1.0); Globulin 3.3 g/dL (2.3-3.5); Potassium 3.5 mEq/L (3.5-5.1); Protein, Total 6.4 g/dL (6.4-8.2)
[2023-06-29 15:18] LABS: Specific Gravity 1.015 (1.005-1.030)
[2023-06-29 15:18] LABS: Absolute Eosinophils 0.2 K/uL (0-0.5); Absolute Lymphocytes (CBC) 0.8 K/uL (0.7-4.9); Absolute Monocytes 0.4 K/uL (0.1-1.3); Absolute Neutrophil 1.3 K/uL (1.8-8.0); Basophils % 1.2 % (0-1.3); Eosinophils % 6.9 % (0-4.4); Hematocrit 39.5 % (36.0-45.0); Hemoglobin 13.2 g/dL (12.0-15.0); Lymphocytes % 30.1 % (15.3-44.8); MCH 30.2 pg (27.0-35.0); MCHC 33.5 g/dL (32.0-36.0); MCV 89.9 fL (80-100); MPV 8.2 fL (7.6-11.3); Monocytes % 15.4 % (3.3-12.3); Neutrophils % 46.4 % (41.7-73.7); Nucleated Red Blood Cells % 0.4 % (0-0); Platelets 201 thou/uL (152-406); RBC Red Blood Cell Count 4.39 M/uL (3.86-4.86); Red Cell Distribution Width 13.6 % (12.1-15.2)
--- NOTE | 2023-06-29 15:28 | RAD REPORT ---
EXAM DESCRIPTION: RAD - Pelvis - 06/29/2023 3:17 pm CLINICAL HISTORY: fall COMPARISON: Pelvis dated 03/17/2022 FINDINGS: No fracture, dislocation or radiographic evidence of AVN. IMPRESSION: Negative study.
--- NOTE | 2023-06-29 15:28 | RAD REPORT ---
EXAM DESCRIPTION: RAD - Chest Single View - 06/29/2023 3:16 pm CLINICAL HISTORY: fall Chest pain. COMPARISON: Chest Single View dated 11/27/2022; Chest Single View dated 06/21/2022 FINDINGS: Portable technique limits examination quality. The lungs are grossly clear. The heart is normal in size. No displaced fractures. IMPRESSION: No acute intrathoracic process suspected.
--- NOTE | 2023-06-29 16:07 | RAD REPORT ---
EXAM DESCRIPTION: CT - Head Brain Wo Cont - 06/29/2023 3:52 pm CLINICAL HISTORY: fall Headache, drowsiness, fall, trauma, head injury COMPARISON: Head Brain Wo Cont dated 08/08/2022; Facial Bones W/ Mpr dated 08/08/2022 TECHNIQUE: All CT scans are performed using dose optimization technique as appropriate and may inclu de automated exposure control or mA/KV adjustment according to patient size. FINDINGS: No intracranial hemorrhage, hydrocephalus or extra-axial fluid collection.No areas of brai n edema or evidence of midline shift. The paranasal sinuses and mastoids are clear. The calvarium is intact. IMPRESSION: No acute intracranial abnormality.
--- NOTE | 2023-06-29 16:10 | RAD REPORT ---
EXAM DESCRIPTION: CT - Spine Lumbar Wo Con - 06/29/2023 3:52 pm CLINICAL HISTORY: Radiculopathy. fall from ladder COMPARISON: No comparisons TECHNIQUE: Axial noncontrast CT imaging of the lumbar spine was performed with coronal and sagittal re-formatted images. All CT scans are performed using dose optimization technique as appropriate and may include automated exposure control or mA/KV adjustment according to patient size. FINDINGS: No acute lumbar spine fracture seen. No aggressive marrow pattern or malalignment. Paraspinal tissues are normal in thickness. No paraspinal abscess or hematoma seen. Posterior disc bulge is noted L5-S1. Small stones are present in both kidneys. IMPRESSION: No acute lumbar spine abnormality. Bilateral nephrolithiasis.
--- NOTE | 2023-06-29 16:23 | EDPHYS ---
Physician Documentation [facility] Name: Sharyn Franco Age: 42 yrs Sex: Female : 1980 Arrival Date: 06/29/2023 Time: 14:17 Bed 5 Private MD: ED Physician Ranjit Arnold HPI: 06/28 14:40 This 42 yrs old Female presents to ER via Wheelchair with complaints of Fall ec2 Injury. 14:40 Patient arrives today for evaluation of back pain. Patient with a recent fall from a ec2 ladder. No LOC, states that she is having some confusion as well. Patient reports that she has a history of previous L-spine fracture. Patient reports generalized body pain. Worsening pain in the lower back.. Historical: - Allergies: 14:25 QUINOLONES; nj1 14:25 Ultram; nj1 - PMHx: 14:25 epilepsy; Hypothyroidism; PCOS; sciatica; Hypothyroidism; nj1 - Immunization history:: Client reports receiving the 2nd dose of the Covid vaccine. - Infectious Disease History:: Denies. - Social history:: Smoking status: Patient denies any tobacco usage or history of. ROS: 14:40 Constitutional: as per hpi ec2 Exam: 14:40 Constitutional: GEN: No acute distress HEENT: -Head: no deformities -Eyes: EOMI CV: ec2 regular rate LUNGS: no respiratory distress ABD: non-tender SKIN: no wounds appreciated MSK: No C/T/L spine deformities, L-spine TTP, no deformities, no crepitus appreciated. RUE w/o bony deformity LUE w/o bony deformity RLE w/o bony deformity LLE w/o bony deformity NEURO: moves all extremities equally, GCS 15 (E4, V5, M6) Vital Signs: 14:23 BP 104 / 75; Pulse 71; Resp 16; Temp 97(TE); Pulse Ox 100% ; Weight 49.9 kg; Height 5 nj1 ft. 5 in. ; Pain 10/10; 17:05 BP 110 / 78; Pulse 68; Resp 18; Temp 98; Pulse Ox 99% on R/A; ph 14:23 Body Mass Index 18.31 (49.90 kg, 165.1 cm) nj1 14:23 Pain Scale: Adult nj1 MDM: 14:31 Patient medically screened. ec2 14:40 Data reviewed: vital signs. ED course: Today for evaluation of low back pain after fall ec2 from a ladder that occurred last repair examination remarkable for nontoxic but was otherwise in no acute distress with a reassuring examination. Will obtain lab work, urine studies, chest x-ray, CT imaging of the head as well as CT L-spine.. 15:36 ED course: CBC shows slight leukopenia. Metabolic profile is reassuring, appropriate ec2 renal function. Urine test negative. Chest x-ray, pelvis x-ray showed no acute traumatic process. Pending CT scan of the head as well as C-spine . 16:22 ED course: CT scan of the head shows no acute intracranial process, CT L-spine shows no ec2 bony fracture. Will discharge home. Return precautions given . 16:39 ED course: Patient asking for another dose of IV opiate pain medication. I instructed ec2 her that I would not be giving her additional opiate pain medication for her musculoskeletal pain without evidence of fracture.. 06/28 14:40 Order name: CBC with Diff ec2 06/28 14:40 Order name: CMP; Complete Time: 15:35 ec2 06/28 14:40 Order name: Test, Urine; Complete Time: 15:35 ec2 06/28 14:40 Order name: CT Head Brain wo Cont; Complete Time: 16:22 ec2 / 14:40 Order name: CT Lumbar Spine Wo Con; Complete Time: 16:22 ec2 06/28 14:40 Order name: CXR XRAY; Complete Time: 15:35 ec2 06/28 14:40 Order name: Pelvis XRAY; Complete Time: 15:35 ec2 Administered Medications: 15:07 Drug: Ondansetron IVP 4 mg IVP once; over 2 minutes Route: IVP; Site: left antecubital; ko1 15:44 Follow up: Response: No adverse reaction ko1 15:08 Drug: morphine IVP or IV 4 mg IVP once over 4 mins Route: IVP; Infused Over: 4 mins; ko1 Site: left antecubital; 15:44 Follow up: Response: No adverse reaction ko1 15:08 Drug: diphenhydrAMINE IVP 25 mg IVP once Route: IVP; Site: left antecubital; ko1 15:44 Follow up: Response: No adverse reaction ko1 Disposition Summary: 06/29/23 16:22 Discharge Ordered Notes: Location: Home ec2 Problem: an acute exacerbation ec2 Symptoms: have improved ec2 Condition: Stable ec2 Diagnosis - Low back pain ec2 Followup: ec2 - With: Private Physician - When: - Reason: Re-evaluation by your physician Discharge Instructions: - Discharge Summary Sheet ec2 Forms: - Medication Reconciliation Form ec2 - Thank You Letter ec2 - Antibiotic Education ec2 - Prescription Opioid Use ec2 - Patient Portal Instructions ec2 - Leadership Thank You Letter ec2 Prescriptions: - Zofran 4 mg Oral Tablet - take 1 tablet ORAL route every 12 hours As needed; 20 tablet; Refills: 0, ec2 Product Selection Permitted - methocarbamol 500 mg Oral tablet - take 2 tablets ORAL route 4 times per day; 30 tablet; Refills: 0, Product ec2 Selection Permitted Signatures: Dispatcher [employer] Charisse Barger RN RN ko1 Grisel Marinelli RN RN nj1 Ranjit Arnold MD MD ec2 Corrections: (The following items were deleted from the chart) 14:40 14:40 CBC+H.LAB.BRZ ordered. EDMS EDMS 14:40 14:40 COMPREHENSIVE METABOLIC PANEL+C.LAB.BRZ ordered. EDMS EDMS 14:40 14:40 Test, Urine+UC.LAB.BRZ ordered. EDMS EDMS
--- NOTE | 2023-06-29 16:23 | ER ---
Nurse's Notes [facility] Name: Sharyn Franco Age: 42 yrs Sex: Female : 1980 Arrival Date: 06/29/2023 Time: 14:17 Bed 5 Private MD: Diagnosis: Low back pain Presentation: 06/28 14:23 Chief complaint: Patient states: Fall off a ladder last week ago. Hurting everywhere. nj1 Coronavirus screen: Vaccine status: Patient reports being unvaccinated. Ebola Screen: Patient denies travel to an Ebola-affected area in the 21 days before illness onset. Initial Sepsis Screen: Does the patient meet any 2 criteria? No. Patient's initial sepsis screen is negative. Does the patient have a suspected source of infection? No. Patient's initial sepsis screen is negative. Risk Assessment: Do you want to hurt yourself or someone else? Patient reports no desire to harm self or others. Onset of symptoms was May 2023. 14:23 Method Of Arrival: Wheelchair [facility] 14:23 Acuity: LIS 3 nj1 Historical: - Allergies: 14:25 QUINOLONES; nj1 14:25 Ultram; nj1 - PMHx: 14:25 epilepsy; Hypothyroidism; PCOS; sciatica; Hypothyroidism; nj1 - Immunization history:: Client reports receiving the 2nd dose of the Covid vaccine. - Infectious Disease History:: Denies. - Social history:: Smoking status: Patient denies any tobacco usage or history of. Screenin:00 [facility] ED Fall Risk Assessment (Adult) History of falling in the last 3 months, ko1 including since admission Yes- single mechanical fall (1 pt) Confusion or Disorientation No (0 pts) Intoxicated or Sedated No (0 pts) Impaired Gait No (0 pts) Mobility Assist Device Used No (0 pt) Altered Elimination No (0 pt) Score/Fall Risk Level 0 - 2 = Low Risk Oriented to surroundings, Maintained a safe environment, Educated pt \T\ family on fall prevention, incl call for assistance when getting out of bed, Assessed \T\ reinforced patient's understanding of fall precautions, Provided non-skid footwear, Hourly rounding (assess needs \T\ fall precautionary measures) done, Used ambulatory aids as needed (educated on \T\ assisted with), Used gait belt as appropriate. Abuse screen: Denies threats or abuse. Denies injuries from another. Nutritional screening: No deficits noted. Tuberculosis screening: No symptoms or risk factors identified. Assessment: 15:00 General: Appears distressed, Behavior is anxious, crying, restless. Pain: Complains of ko1 pain in back, neck, hands, wrist. Neuro: No deficits noted. Cardiovascular: No deficits noted. Respiratory: No deficits noted. GI: Reports lower abdominal pain, nausea. : No deficits noted. EENT: No deficits noted. Derm: No deficits noted. Musculoskeletal: Reports pain in all over. Vital Signs: 14:23 BP 104 / 75; Pulse 71; Resp 16; Temp 97(TE); Pulse Ox 100% ; Weight 49.9 kg; Height 5 nj1 ft. 5 in. ; Pain 10/10; 17:05 BP 110 / 78; Pulse 68; Resp 18; Temp 98; Pulse Ox 99% on R/A; ph 14:23 Body Mass Index 18.31 (49.90 kg, 165.1 cm) nj1 14:23 Pain Scale: Adult [facility] ED Course: 14:18 Patient arrived in ED. im 14:18 Ranjit Arnold MD is Attending Physician. ec2 14:25 Triage completed. nj1 14:26 Arm band placed on left wrist. nj1 14:34 Charisse Arrington, RAMÓN is Primary Nurse. ko1 14:50 No provider procedures requiring assistance completed. Initial lab(s) drawn, by pa, ko1 sent to lab. Urine collected: clean catch specimen, clear. Inserted saline lock: 20 gauge in left antecubital area, using aseptic technique. Blood collected. 14:53 CBC with Diff Sent. ko1 14:54 CMP Sent. ko1 15:00 Patient has correct armband on for positive identification. Placed in gown. Bed in low ko1 position. Call light in reach. Side rails up X2. Adult w/ patient. Pulse ox on. NIBP on. Door closed. Noise minimized. Warm blanket given. Assisted to bathroom. 15:10 Test, Urine Sent. ko1 15:18 CXR XRAY In Process Unspecified. EDMS 15:18 Pelvis XRAY In Process Unspecified. EDMS 15:54 CT Head Brain wo Cont In Process Unspecified. EDMS 15:54 CT Lumbar Spine Wo Con In Process Unspecified. EDMS 17:06 IV discontinued, intact, bleeding controlled, No redness/swelling at site. Pressure ph dressing applied. Administered Medications: 15:07 Drug: Ondansetron IVP 4 mg IVP once; over 2 minutes Route: IVP; Site: left antecubital; ko1 15:44 Follow up: Response: No adverse reaction ko1 15:08 Drug: morphine IVP or IV 4 mg IVP once over 4 mins Route: IVP; Infused Over: 4 mins; ko1 Site: left antecubital; 15:44 Follow up: Response: No adverse reaction ko1 15:08 Drug: diphenhydrAMINE IVP 25 mg IVP once Route: IVP; Site: left antecubital; ko1 15:44 Follow up: Response: No adverse reaction ko1 Medication: 15:00 VIS not applicable for this client. ko1 Outcome: 16:22 Discharge ordered by . ec2 17:05 Discharged to home ambulatory, with family, ph 17:05 Condition: good 17:06 Discharge instructions given to patient, Instructed on discharge instructions, follow ph up and referral plans. medication usage, Demonstrated understanding of instructions, follow-up care, medications, Prescriptions given X 2, 17:07 Patient left the ED. ph Signatures: Dispatcher [employer] Rachael Calvillo RN RN ph Oliver, Kathy, RN RN ko1 Grisel Marinelli RN RN nj1 Jackie Romano Edwin, MD MD ec2
[2023-06-29 17:20] LABS: Blood Morphology Comment NOT SEEN (NOT SEEN); Platelet Estimate ADEQ; White Blood Cell Scan OK (OK)
[2023-06-29 20:42] VITALS: BP 110/78; TEMP 98; O2SAT 99
== END 2023-06-29 17:07 | disposition home or self-care (01) ==
LOC: ER 14:17
DX: M54.50 Low back pain, unspecified (principal); Z88.5 Allergy status to narcotic agent
CPT/HCPCS: 36415; 70450; 71045; 72131; 72170; 80053; 81025; 85025; 96374; 96375; 99284; J1200; J2405

== ENCOUNTER 2023-09-10 12:09 | Emergency (ER) | payer SELFPAY ==
[2023-09-10] MEDS ORDERED: ONDANSETRON 4 MG/2 ML VIAL ONE (12:36)
[2023-09-10] MEDS ORDERED: KETOROLAC 30 MG/ML INJ ONE (12:36)
[2023-09-10] MEDS ORDERED: dexAMETHasone 10 MG/ML VIAL ONE (12:36)
[2023-09-10] MEDS ORDERED: MORPHINE 4 MG/ML SYR ONE ×2 (12:37→14:04)
[2023-09-10] MEDS ORDERED: NA CHLORIDE 0.9% 1,000 ML ONE (12:37)
[2023-09-10] MEDS ORDERED: DIAZEPAM 5 MG TABLET ONE (12:37)
[2023-09-10 12:55] LABS: Absolute Basophils 0.1 K/uL (0-0.5); Absolute Eosinophils 0.2 K/uL (0-0.5); Absolute Lymphocytes (CBC) 2.2 K/uL (0.7-4.9); Absolute Monocytes 0.6 K/uL (0.1-1.3); Absolute Neutrophil 4.6 K/uL (1.8-8.0); Basophils % 1.5 % (0-1.3); Eosinophils % 3.1 % (0-4.4); Hematocrit 41.1 % (36.0-45.0); Hemoglobin 13.1 g/dL (12.0-15.0); Lymphocytes % 28.3 % (15.3-44.8); MCH 28.9 pg (27.0-35.0); MCHC 31.8 g/dL (32.0-36.0); MCV 90.9 fL (80-100); Monocytes % 7.8 % (3.3-12.3); Neutrophils % 59.3 % (41.7-73.7); Platelets 337 thou/uL (152-406); RBC Red Blood Cell Count 4.53 M/uL (3.86-4.86); Red Cell Distribution Width 14.7 % (12.1-15.2)
[2023-09-10 13:09] LABS: Albumin 3.8 g/dL (3.4-5.0); Albumin/Globulin Ratio 1.2 (1.1-1.8); Alkaline Phosphatase 74 U/L (45-117); Anion Gap 9.3 mEq/L (5.0-15.0); BUN Blood Urea Nitrogen 20 mg/dL (7-18); Bicarbonate 22 mEq/L (21-32); Bilirubin Total 0.3 mg/dL (0.2-1.0); Globulin 3.3 g/dL (2.3-3.5); Glomerular Filtration Rate 72 ml/min (=/>90); Glucose Level 89 mg/dL (74-106); Potassium 4.3 mEq/L (3.5-5.1); Protein, Total 7.1 g/dL (6.4-8.2); Sodium Level 136 mEq/L (136-145)
[2023-09-10 13:10] LABS: ALT/SGPT < 14 U/L (13-56); AST/SGOT < 10 U/L (15-37)
[2023-09-10] MEDS ORDERED: LORazepam 2 MG/ML VIAL ONE (14:03)
--- NOTE | 2023-09-10 15:05 | RAD REPORT ---
EXAM DESCRIPTION: MRI - Lumbar Spine Con- 09/10/2023 2:48 pm CLINICAL HISTORY: PAIN Back pain, radiculopathy COMPARISON: Lumbar Spine Wo Con dated 09/21/2022 FINDINGS: Vertebral body heights are within normal limits. No aggressive marrow pattern is observed. No fracture is suspected. The conus medullaris terminates at a normal level. No thickening of the cauda equina or clumping of n erve roots seen. L1-2 level: Mild posterior disc bulge. L2-3 level: Mild posterior disc bulge. L3-4 level: Mild posterior disc bulge. L4-5 level: Mild to moderate posterior disc bulge asymmetric to the left. Moderate facet and ligament um flavum hypertrophy. L5-S1 level: There is a large right paracentral disc protrusion measure up to 6 mm present. This resu lts in combination with mild facet and ligamentum flavum hypertrophy in significant right lateral rec ess stenosis. Mild central canal narrowing. Moderate right-sided exit foraminal stenosis also present . IMPRESSION: Right-sided paracentral disc protrusion as detailed at L5-S1 results right exit foramina l stenosis and right lateral recess stenosis as described.
--- NOTE | 2023-09-10 15:28 | EDPHYS ---
Physician Documentation [facility] Name: Sharyn Franco Age: 42 yrs Sex: Female : 1980 Arrival Date: 09/10/2023 Time: 12:09 Bed 13 Private MD: ED Physician Gustavo Canales HPI: 09/09 13:45 This 42 yrs old Female presents to ER via Wheelchair with complaints of Back guilherme Pain. 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 - Infectious Disease History:: Denies. - Social history:: Smoking status: Patient denies any tobacco usage or history of. ROS: 13:50 Constitutional: Negative for fever, chills, and weight loss, Eyes: Negative for injury, guilherme pain, redness, and discharge, ENT: Negative for injury, pain, and discharge, Neck: Negative for injury, pain, and swelling, Cardiovascular: Negative for chest pain, palpitations, and edema, Respiratory: Negative for shortness of breath, cough, wheezing, and pleuritic chest pain, Abdomen/GI: Negative for abdominal pain, nausea, vomiting, diarrhea, and constipation, : Negative for injury, bleeding, discharge, and swelling, MS/Extremity: Negative for injury and deformity, Skin: Negative for injury, rash, and discoloration, Neuro: Negative for headache, weakness, numbness, tingling, and seizure, Psych: Negative for depression, anxiety, suicide ideation, homicidal ideation, and hallucinations, Allergy/Immunology: Negative for hives, rash, and allergies, Endocrine: Negative for neck swelling, polydipsia, polyuria, polyphagia, and marked weight changes, Hematologic/Lymphatic: Negative for swollen nodes, abnormal bleeding, and unusual bruising, 13:50 Back: Positive for decreased range of motion, pain at rest, 13:50 Neuro: Positive for numbness, tingling, of the left leg, Exam: 13:50 Constitutional: This is a well developed, well nourished patient who is awake, alert, guilherme and in no acute distress. Head/Face: Normocephalic, atraumatic. Eyes: Pupils equal round and reactive to light, extra-ocular motions intact. Lids and lashes normal. Conjunctiva and sclera are non-icteric and not injected. Cornea within normal limits. Periorbital areas with no swelling, redness, or edema. ENT: Nares patent. No nasal discharge, no septal abnormalities noted. Tympanic membranes are normal and external auditory canals are clear. Oropharynx with no redness, swelling, or masses, exudates, or evidence of obstruction, uvula midline. Mucous membranes moist. Neck: Trachea midline, no thyromegaly or masses palpated, and no cervical lymphadenopathy. Supple, full range of motion without nuchal rigidity, or vertebral point tenderness. No Meningismus. Chest/axilla: Normal chest wall appearance and motion. Nontender with no deformity. No lesions are appreciated. Cardiovascular: Regular rate and rhythm with a normal S1 and S2. No gallops, murmurs, or rubs. Normal PMI, no JVD. No pulse deficits. Respiratory: Lungs have equal breath sounds bilaterally, clear to auscultation and percussion. No rales, rhonchi or wheezes noted. No increased work of breathing, no retractions or nasal flaring. Abdomen/GI: Soft, non-tender, with normal bowel sounds. No distension or tympany. No guarding or rebound. No evidence of tenderness throughout. Back: No spinal tenderness. No costovertebral tenderness. Full range of motion. Skin: Warm, dry with normal turgor. Normal color with no rashes, no lesions, and no evidence of cellulitis. Neuro: Awake and alert, GCS 15, oriented to person, place, time, and situation. Cranial nerves II-XII grossly intact. Motor strength 5/5 in all extremities. Sensory grossly intact. Cerebellar exam normal. Normal gait. Psych: Awake, alert, with orientation to person, place and time. Behavior, mood, and affect are within normal limits. 13:50 Musculoskeletal/extremity: Extremities: noted in the left leg: decreased ROM, pain, ROM: limited active range of motion due to pain, limited passive range of motion due to pain, Circulation is intact in all extremities. Sensation intact. Compartment Syndrome exam of affected extremity: is normal. Weight bearing: able to fully bear weight, without difficulty, DVT Exam: no swelling, negative Homans' sign noted on exam, no appreciated bluish discoloration, no erythema, no increased warmth, pain, tenderness, Vital Signs: 12:15 BP 104 / 87; Pulse 100; Resp 17; Temp 97.9; Pulse Ox 100% ; Pain 10/10; ll1 14:00 BP 120 / 80; Pulse 82; Resp 16; Pulse Ox 99% ; bp 15:54 BP 121 / 81; Pulse 82; Resp 17; Pulse Ox 100% on R/A; me1 12:15 Pain Scale: Adult ll1 MDM: 12:17 Patient medically screened. guilherme 13:51 Differential diagnosis: chronic back pain, Fracture Osteoarthritis Pyelonephritis guilherme ruptured disc, Scoliosis sprain, Ureterolithiasis vertebral fracture. Data reviewed: vital signs, nurses notes, lab test result(s), radiologic studies, CT scan, MRI. Consideration of Admission/Observation Escalation of care including admission/observation considered. I considered the following discharge prescriptions or medication management in the emergency department Medications were administered in the Emergency Department. See MAR. Independent interpretation of the following test(s) in the Emergency Department MRI: My interpretation is mri lumbar. Test considered but Not performed: Ultrasound no le venous doppler. Historians other than the Patient: pt well informed. Care significantly affected by the following chronic conditions: epilepsy, pcos, sciatica, back fracture. Counseling: I had a detailed discussion with the patient and/or guardian regarding the historical points, exam findings, and any diagnostic results supporting the discharge/admit diagnosis, lab results, radiology results, the need for outpatient follow up, for definitive care, a family practitioner, a neurosurgeon. 09/09 12:20 Order name: CBC with Diff; Complete Time: 13:40 [facility] 09/09 12:20 Order name: Comprehensive Metabolic Panel; Complete Time: 13:40 [facility] 09/09 13:45 Order name: MRI Lumbar Spine wo Con; Complete Time: 15:26 guilherme Administered Medications: 12:50 Drug: morphine IVP or IV 4 mg IVP once over 4 mins Route: IVP; Infused Over: 4 mins; bp Site: right antecubital; 14:09 Follow up: Response: No adverse reaction bp 12:50 Drug: Ondansetron IVP 4 mg IVP once; over 2 minutes Route: IVP; Site: right antecubital;bp 14:09 Follow up: Response: No adverse reaction bp 12:50 Drug: Diazepam PO 10 mg PO once Route: PO; bp 14:10 Follow up: Response: No adverse reaction bp 12:50 Drug: Decadron - Dexamethasone IVP 10 mg IVP once Route: IVP; Site: right antecubital; bp 14:10 Follow up: Response: No adverse reaction bp 12:50 Drug: Ketorolac IVP 30 mg IVP once Route: IVP; Site: right antecubital; bp 14:10 Follow up: Response: No adverse reaction bp 12:51 Drug: NS 0.9% IV 1000 ml IV at 1 bolus Per protocol; 1000 mL bolus Route: IV; Rate: 1 bp bolus; Site: right antecubital; 15:58 Follow up: Response: No adverse reaction; IV Status: Completed infusion me1 14:09 Drug: morphine IVP or IV 4 mg IVP once over 4 mins Route: IVP; Infused Over: 4 mins; bp Site: right antecubital; 15:54 Follow up: Response: No adverse reaction; Pain is decreased me1 14:09 Drug: Ativan IVP 2 mg IVP once Route: IVP; Site: right antecubital; bp 15:54 Follow up: Response: No adverse reaction; Anxiety decreased me1 Disposition Summary: 09/10/23 15:27 Discharge Ordered Notes: Location: Home guilherme Problem: new guilherme Symptoms: have improved guilherme Condition: Stable guilherme Diagnosis - Sciatica, left side guilherme - Intervertebral disc disorders with radiculopathy, lumbar region guilherme Followup: guilherme - With: Private Physician - When: 2 - 3 days - Reason: Recheck today's complaints, Continuance of care, Re-evaluation by your physician Followup: guilherme - With: Sebastien Swartz MD - When: 2 - 3 days - Reason: Recheck today's complaints, Re-evaluation by your physician Followup: guilherme - With: Andi Shore MD - When: 2 - 3 days - Reason: Recheck today's complaints, Re-evaluation by your physician Discharge Instructions: - Discharge Summary Sheet guilherme - Herniated Disk guilherme - Lumbosacral Radiculopathy guilherme - Sciatica guilherme - Sciatica, [id number] guilherme - Radicular Pain guilherme Forms: - Medication Reconciliation Form guilherme - Antibiotic Education guilherme - Prescription Opioid Use guilherme - Patient Portal Instructions [facility] - Leadership Thank You Letter [facility] Prescriptions: - acetaminophen-codeine 300-30 mg Oral tablet - take 2 tablet ORAL route every 6 hours; 20 tablet; Refills: 0, Product [facility] Selection Permitted - dexamethasone 4 mg Oral tablet - take 1 tablet ORAL route daily; 5 tablet; Refills: 0, Product Selection [facility] Permitted - Diclofenac Sodium 75 mg Oral tablet, delayed release (enteric coated) - take 1 tablet ORAL route 2 times per day; 20 tablet; Refills: 0, Product [facility] Selection Permitted - Cyclobenzaprine 5 mg Oral tablet - take 1 tablet ORAL route 3 times per day As needed; 21 tablet; Refills: 0, [facility] Product Selection Permitted Signatures: Dispatcher [employer] Gustavo Hale MD MD cha Peltier, Brian RN RN Aristeo Rangel RN RN ll1 Karen Granados RN me1
--- NOTE | 2023-09-10 15:28 | ER ---
Nurse's Notes [facility] Name: Sharyn Franco Age: 42 yrs Sex: Female : 1980 Arrival Date: 09/10/2023 Time: 12:09 Bed 13 Private MD: Diagnosis: Sciatica, left side;Intervertebral disc disorders with radiculopathy, lumbar region Presentation: 09/09 12:15 Chief complaint: Patient states: Low back pain way worse than usual for 4 days. ll1 Coronavirus screen: Client denies travel out of the [place] in the last 14 days. At this time, the client does not indicate any symptoms associated with coronavirus-19. Ebola Screen: Patient denies travel to an Ebola-affected area in the 21 days before illness onset. Initial Sepsis Screen: Does the patient meet any 2 criteria? No. Patient's initial sepsis screen is negative. Does the patient have a suspected source of infection? No. Patient's initial sepsis screen is negative. Risk Assessment: Do you want to hurt yourself or someone else? Patient reports no desire to harm self or others. Onset of symptoms was September 06, 2023. 12:15 Method Of Arrival: Wheelchair ll1 12:15 Acuity: LIS 4 ll1 Triage Assessment: 12:15 General: Appears distressed, uncomfortable, Behavior is cooperative, appropriate for bp age, agitated, anxious, crying. Pain: Complains of pain in back and left leg. EENT: No deficits noted. Neuro: Reports weakness in right leg and left leg. Cardiovascular: No deficits noted. Respiratory: No deficits noted. GI: No signs and/or symptoms were reported involving the gastrointestinal system. : No signs and/or symptoms were reported regarding the genitourinary system. Derm: No deficits noted. Musculoskeletal: Circulation, motion, and sensation intact. Range of motion: intact in all extremities. 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 - Infectious Disease History:: Denies. - Social history:: Smoking status: Patient denies any tobacco usage or history of. Screenin:[facility] ED Fall Risk Assessment (Adult) History of falling in the last 3 months, bp including since admission No falls in past 3 months (0 pts). Abuse screen: Denies threats or abuse. Denies injuries from another. Nutritional screening: No deficits noted. Tuberculosis screening: No symptoms or risk factors identified. Assessment: 12:50 General: SEE TRIAGE NOTE. bp 14:30 Reassessment: PT IN MRI. bp Vital Signs: 12:15 BP 104 / 87; Pulse 100; Resp 17; Temp 97.9; Pulse Ox 100% ; Pain 10/10; ll1 14:00 BP 120 / 80; Pulse 82; Resp 16; Pulse Ox 99% ; bp 15:54 BP 121 / 81; Pulse 82; Resp 17; Pulse Ox 100% on R/A; me1 12:15 Pain Scale: Adult ll1 ED Course: 12:11 Patient arrived in ED. mr 12:15 Gustavo Canales MD is Attending Physician. guilherme 12:16 Triage completed. ll1 12:33 Octaviano Guy, RN is Primary Nurse. bp 12:44 Initial lab(s) drawn, by ma, sent to lab. Inserted saline lock: 20 gauge in right hb antecubital area, using aseptic technique. Blood collected. 12:50 Arm band placed on. bp 14:30 Patient has correct armband on for positive identification. bp 14:40 MRI Lumbar Spine wo Con In Process Unspecified. EDMS 15:27 Sebastien Swartz MD is Referral Physician. guilherme 15:27 Andi Shore MD is Referral Physician. guilherme 15:54 No provider procedures requiring assistance completed. IV discontinued, intact, me1 bleeding controlled, No redness/swelling at site. Pressure dressing applied. 15:55 Provided Education on: POC. Verbalized understanding. . me1 Administered Medications: 12:50 Drug: morphine IVP or IV 4 mg IVP once over 4 mins Route: IVP; Infused Over: 4 mins; bp Site: right antecubital; 14:09 Follow up: Response: No adverse reaction bp 12:50 Drug: Ondansetron IVP 4 mg IVP once; over 2 minutes Route: IVP; Site: right antecubital;bp 14:09 Follow up: Response: No adverse reaction bp 12:50 Drug: Diazepam PO 10 mg PO once Route: PO; bp 14:10 Follow up: Response: No adverse reaction bp 12:50 Drug: Decadron - Dexamethasone IVP 10 mg IVP once Route: IVP; Site: right antecubital; bp 14:10 Follow up: Response: No adverse reaction bp 12:50 Drug: Ketorolac IVP 30 mg IVP once Route: IVP; Site: right antecubital; bp 14:10 Follow up: Response: No adverse reaction bp 12:51 Drug: NS 0.9% IV 1000 ml IV at 1 bolus Per protocol; 1000 mL bolus Route: IV; Rate: 1 bp bolus; Site: right antecubital; 15:58 Follow up: Response: No adverse reaction; IV Status: Completed infusion me1 14:09 Drug: morphine IVP or IV 4 mg IVP once over 4 mins Route: IVP; Infused Over: 4 mins; bp Site: right antecubital; 15:54 Follow up: Response: No adverse reaction; Pain is decreased me1 14:09 Drug: Ativan IVP 2 mg IVP once Route: IVP; Site: right antecubital; bp 15:54 Follow up: Response: No adverse reaction; Anxiety decreased me1 Medication: 15:56 VIS not applicable for this client. me1 Outcome: 15:27 Discharge ordered by MD. vanegas 15:54 Discharged to home via wheelchair, with family, me1 15:54 Condition: stable 15:54 Discharge instructions given to patient, Instructed on discharge instructions, follow up and referral plans. medication usage, Demonstrated understanding of instructions, follow-up care, medications, Prescriptions given X 4, 15:57 Patient left the ED. me1 Signatures: Dispatcher [employer] Gustavo Hale MD MD cha Rivera, Mary, Reg Reg mr Krista Read, Octaviano Jack RN, RN RN bp Lewis, Lynsay, RN RN 1 Karen Granados RN RN me1
[2023-09-10 16:43] VITALS: BP 121/81; TEMP 97.9; O2SAT 100
== END 2023-09-10 15:57 | disposition home or self-care (01) ==
LOC: ER 12:09
DX: M54.32 Sciatica, left side (principal); M51.16 Intervertebral disc disorders with radiculopathy, lumbar region
CPT/HCPCS: 36415; 72148; 80053; 85025; 96361; 96374; 96375; 99284; J1100; J2405; J7030

== ENCOUNTER 2023-09-13 11:05 | Emergency (ER) | payer SELFPAY ==
[2023-09-13] MEDS ORDERED: GABAPENTIN 300 MG CAP ONE (11:55)
[2023-09-13] MEDS ORDERED: LIDOCAINE 4% PATCH ONE (11:56)
[2023-09-13] MEDS ORDERED: KETOROLAC 30 MG/ML INJ ONE (11:56)
[2023-09-13] MEDS ORDERED: ACETAMINOPHEN 500 MG TAB ONE ×2 (11:56→12:00)
[2023-09-13] MEDS ORDERED: MORPHINE 4 MG/ML SYR ONE (11:56)
--- NOTE | 2023-09-13 12:47 | ER ---
Nurse's Notes [facility] Name: Sharyn Franco Age: 42 yrs Sex: Female : 1980 Arrival Date: 09/13/2023 Time: 11:05 Bed 15 Private MD: Diagnosis: Sciatica, right side Presentation: 09/12 11:22 Chief complaint: Patient states: "I was seen here [facility] for back pain to my left side aa5 but now it's worse and it's all on my right side". Pt reports pain to right lower/right mid back. 11:22 Method Of Arrival: Wheelchair aa5 11:22 Coronavirus screen: At this time, the client does not indicate any symptoms associated aa5 with coronavirus-19. Ebola Screen: Patient denies travel to an Ebola-affected area in the 21 days before illness onset. Initial Sepsis Screen: Does the patient meet any 2 criteria? No. Patient's initial sepsis screen is negative. Does the patient have a suspected source of infection? No. Patient's initial sepsis screen is negative. Risk Assessment: Do you want to hurt yourself or someone else? Patient reports no desire to harm self or others. Onset of symptoms was August 2023. 11:22 Acuity: LIS 3 aa5 Historical: - Allergies: 11:28 QUINOLONES; aa5 11:28 Ultram; aa5 - PMHx: 11:28 broken back (sciatica); epilepsy; Hypothyroidism; Hypothyroidism; PCOS; sciatica; aa5 - Immunization history:: Adult Immunizations unknown. - Infectious Disease History:: Denies. - Social history:: Smoking status: unknown. Screenin:30 [facility] ED Fall Risk Assessment (Adult) History of falling in the last 3 months, ph including since admission No falls in past 3 months (0 pts) Confusion or Disorientation No (0 pts) Intoxicated or Sedated No (0 pts) Impaired Gait No (0 pts) Mobility Assist Device Used No (0 pt) Altered Elimination No (0 pt) Score/Fall Risk Level 0 - 2 = Low Risk Oriented to surroundings, Maintained a safe environment, Hourly rounding (assess needs \\T\\ fall precautionary measures) done. Abuse screen: Denies threats or abuse. Denies injuries from another. Nutritional screening: No deficits noted. Tuberculosis screening: No symptoms or risk factors identified. Assessment: 12:00 General: Appears in no apparent distress. uncomfortable, Behavior is cooperative, ph anxious, crying. Pain: Complains of pain in coccyx Pain radiates to right leg. Neuro: Level of Consciousness is awake, alert, obeys commands, Oriented to person, place, time, situation. Derm: Skin is pink, warm \\T\\ dry. Musculoskeletal: Circulation, motion, and sensation intact. Range of motion: intact in all extremities. 13:15 Reassessment: Patient appears in no apparent distress at this time. Patient and/or ph family updated on plan of care and expected duration. Pain level reassessed. Patient is alert, oriented x 3, equal unlabored respirations, skin warm/dry/pink. Pt placed up for d/c home, pt anxious and crying, states that her pain has not improved, " I can't believe I'm being discharged while I am still hurting", ERP notified, see MAR. 13:50 Reassessment: Pt medicated per provider orders, see MAR. ph 14:45 Reassessment: Patient appears in no apparent distress at this time. Patient and/or ph family updated on plan of care and expected duration. Pain level reassessed. Patient is alert, oriented x 3, equal unlabored respirations, skin warm/dry/pink. Pt continues to be anxious and crying, states that pain has not improved, informed pt that the ER provider was not going to order further medications and that she needs to follow up w/ appropriate doctor and pain management, pt d/c home w/ SO, was able to stand to get into wheelchair and to stand from wheelchair to get into vehicle. Vital Signs: 11:22 BP 141 / 92; Pulse 108; Resp 18 S; Temp 98(TE); Pulse Ox 99% on R/A; Weight 56.7 kg aa5 (R); Height 5 ft. 5 in. (R); 12:17 BP 122 / 74; Pulse 93; ec2 13:00 BP 123 / 78; Pulse 91; Resp 18; Pulse Ox 98% on R/A; ph 11:22 Body Mass Index 20.80 (56.70 kg, 165.1 cm) aa5 ED Course: 11:06 Patient arrived in ED. mr 11:12 Ranjit Arnold MD is Attending Physician. ec2 11:17 Ranjit Arnold MD is Attending Physician. ec2 11:22 Arm band placed on Patient placed in an exam room, on a stretcher. aa5 11:28 Rachael Mckeon RN is Primary Nurse. ph 11:29 Triage completed. aa5 12:30 Patient has correct armband on for positive identification. Bed in low position. Call ph light in reach. Side rails up X 1. Pulse ox on. NIBP on. Door closed. Noise minimized. Warm blanket given. 13:30 No provider procedures requiring assistance completed. Patient did not have IV access ph during this emergency room visit. Administered Medications: 11:19 CANCELLED (Physician Discretion): [id number] mg PO once ec2 12:26 Drug: Ketorolac IM 30 mg IM once Route: IM; Site: right deltoid; ph 13:00 Follow up: Response: No adverse reaction; Pain is unchanged, physician notified; RASS: ph Restless (+1) 12:26 Drug: morphine IM 4 mg IM once Route: IM; Site: right deltoid; ph 13:15 Follow up: Response: No adverse reaction; Pain is unchanged, physician notified; RASS: ph Restless (+1) 12:26 Drug: Acetaminophen PO 1000 mg PO once Route: PO; ph 13:15 Follow up: Response: No adverse reaction; Pain is unchanged, physician notified ph 12:26 Drug: Lidoderm Topical Patch 5 % (700 mg/patch) 1 patches Topical once; leave on for 12 ph hours; cover most painful area; may cut into smaller pieces Route: Topical; Site: affected area; 09/13 13:00 Follow up: Response: No adverse reaction; Pain is unchanged, physician notified ph 09/12 12:26 Drug: Gabapentin PO 600 mg PO once Route: PO; ph 09/13 13:00 Follow up: Response: No adverse reaction; Pain is unchanged, physician notified ph 09/12 13:50 Drug: Dexamethasone IM 10 mg IM once Route: IM; Site: right gluteus; ph 14:00 Follow up: Response: No adverse reaction ph 13:50 Drug: Acetaminophen-Codeine PO (300 mg-30 mg) 1 tablet PO once; RASS on ADMIN: Combtv4, ph Very Agttd3, Agttd2, Rstlss1, AlertClm0, Drwsy-1, Lt Sdtn-2, Mod Sdtn-3, Dp Sdtn-4, UnArsble-5 Route: PO; 14:45 Follow up: Response: No adverse reaction; RASS: Restless (+1) ph Outcome: 12:46 Discharge ordered by MD. ec2 14:58 Patient left the ED. ph 14:58 Discharged to home via wheelchair, with significant other, 14:58 Condition: good 14:58 Discharge instructions given to patient, significant other, Instructed on discharge instructions, follow up and referral plans. medication usage, Demonstrated understanding of instructions, follow-up care, medications, Prescriptions given X 1, Signatures: Brandee Giron, Reg Reg mr Isha Bueno, RN RN aa5 Rachael Mckeon RN RN [facility], MD Ranjit MD ec2 Corrections: (The following items were deleted from the chart) 09/13 14:14 12:00 General: Appears in no apparent distress. uncomfortable, Behavior is cooperative, ph anxious, crying, ph 14:14 12:00 Pain: Complains of pain in coccyx Pain radiates to right leg ph ph 14:14 12:00 Neuro: Level of Consciousness is awake, alert, obeys commands, Oriented to ph person, place, time, situation, ph 14:14 12:00 Derm: Skin is pink, warm \\T\\ dry. ph ph 14:14 12:00 Musculoskeletal: Circulation, motion, and sensation intact. Range of motion: ph intact in all extremities, ph 14:14 13:15 Reassessment: Patient appears in no apparent distress at this time. Patient ph and/or family updated on plan of care and expected duration. Pain level reassessed. Patient is alert, oriented x 3, equal unlabored respirations, skin warm/dry/pink. Pt placed up for d/c home, pt anxious and crying, states that her pain has not improved, " I can't believe I'm being discharged while I am still hurting", ERP notified, see [facility] ph 14:14 13:50 Reassessment: Pt medicated per provider orders, see [facility] ph 14:18 09/12 12:00 Reassessment: Patient appears in no apparent distress at this time. Patient ph and/or family updated on plan of care and expected duration. Pain level reassessed. Patient is alert, oriented x 3, equal unlabored respirations, skin warm/dry/pink. Pt placed up for d/c home, pt anxious and crying, states that her pain has not improved, " I can't believe I'm being discharged while I am still hurting", ERP notified, see MAR ph
--- NOTE | 2023-09-13 12:47 | EDPHYS ---
Physician Documentation [facility] Name: Sharyn Franco Age: 42 yrs Sex: Female : 1980 Arrival Date: 09/13/2023 Time: 11:05 Bed 15 Private MD: ED Physician Ranjit Arnold HPI: 09/12 11:24 This 42 yrs old Female presents to ER via Unassigned with complaints of Back Pain, Leg ec2 Pain. 11:52 Right chronic back pain, no new changes, no falls injuries or trauma, complaining of ec2 right back pain radiating to the right lower extremity with paresthesias associated. Recent ER visits, medications prescribed and given as well as MRI obtained.. Historical: - Allergies: 11:28 QUINOLONES; aa5 11:28 Ultram; aa5 - PMHx: 11:28 broken back (sciatica); epilepsy; Hypothyroidism; Hypothyroidism; PCOS; sciatica; aa5 - Immunization history:: Adult Immunizations unknown. - Infectious Disease History:: Denies. - Social history:: Smoking status: unknown. ROS: 11:52 Constitutional: as per hpi ec2 Exam: 11:52 Constitutional: GEN: NAD Head: atraumatic Eyes: EOMI Ears: External ears are ec2 normal. CV: regular rate LUNGS: no respiratory distress ABD: non-distended SKIN: no evidence of rashes MSK: no evidence of trauma, TTP to the right buttock and right lower extremity NEURO: moves all extremities equally, paresthesias in the right lower extremity. Vital Signs: 11:22 BP 141 / 92; Pulse 108; Resp 18 S; Temp 98(TE); Pulse Ox 99% on R/A; Weight 56.7 kg aa5 (R); Height 5 ft. 5 in. (R); 12:17 BP 122 / 74; Pulse 93; ec2 13:00 BP 123 / 78; Pulse 91; Resp 18; Pulse Ox 98% on R/A; ph 11:22 Body Mass Index 20.80 (56.70 kg, 165.1 cm) aa5 MDM: 11:17 Patient medically screened. ec2 11:51 Data reviewed: vital signs. ED course: Patient arrives today for evaluation of chronic ec2 back pain. States that she has had over a year of back pain, has had multiple visits for similar symptoms. External record review shows that patient had MRI several days ago that showed right-sided paracentral disc protrusion which is consistent with patient's pain today. Examination is with tenderness and pain in the right lower extremity. Will give the patient IM and p.o. medications, ultimately patient needs to follow-up with neurosurgery, neurology as she has been instructed to in the past as well as pain management. . 11:51 ED course: I considered differential diagnosis such as sciatica, chronic back pain, ec2 doubt spinal cord pathology given lack of red flag symptoms.. 13:34 ED course: On reassessment patient with marked improvement in her tachycardia, still ec2 reports subjective pain, instructed her would not be able to completely alleviate her pain and she needs to follow-up with her physicians as previously stated. I will give her an oral dose of medication as well as steroids. Patient discharged home, no red flag symptoms, patient with no injuries or new trauma to warrant obtaining repeat or additional imaging.. Administered Medications: 11:19 CANCELLED (Physician Discretion): [id number] mg PO once ec2 12:26 Drug: Ketorolac IM 30 mg IM once Route: IM; Site: right deltoid; ph 13:00 Follow up: Response: No adverse reaction; Pain is unchanged, physician notified; RASS: ph Restless (+1) 12:26 Drug: morphine IM 4 mg IM once Route: IM; Site: right deltoid; ph 13:15 Follow up: Response: No adverse reaction; Pain is unchanged, physician notified; RASS: ph Restless (+1) 12:26 Drug: Acetaminophen PO 1000 mg PO once Route: PO; ph 13:15 Follow up: Response: No adverse reaction; Pain is unchanged, physician notified ph 12:26 Drug: Lidoderm Topical Patch 5 % (700 mg/patch) 1 patches Topical once; leave on for 12 ph hours; cover most painful area; may cut into smaller pieces Route: Topical; Site: affected area; 09/13 13:00 Follow up: Response: No adverse reaction; Pain is unchanged, physician notified ph 09/12 12:26 Drug: Gabapentin PO 600 mg PO once Route: PO; ph 09/13 13:00 Follow up: Response: No adverse reaction; Pain is unchanged, physician notified ph 09/12 13:50 Drug: Dexamethasone IM 10 mg IM once Route: IM; Site: right gluteus; ph 14:00 Follow up: Response: No adverse reaction ph 13:50 Drug: Acetaminophen-Codeine PO (300 mg-30 mg) 1 tablet PO once; RASS on ADMIN: Combtv4, ph Very Agttd3, Agttd2, Rstlss1, AlertClm0, Drwsy-1, Lt Sdtn-2, Mod Sdtn-3, Dp Sdtn-4, UnArsble-5 Route: PO; 14:45 Follow up: Response: No adverse reaction; RASS: Restless (+1) ph Disposition Summary: 09/13/23 12:46 Discharge Ordered Notes: Location: Home ec2 Condition: Stable ec2 Diagnosis - Sciatica, right side ec2 Followup: ec2 - With: Private Physician - When: - Reason: Re-evaluation by your physician Discharge Instructions: - Discharge Summary Sheet ec2 - Sciatica ec2 Forms: - Medication Reconciliation Form ec2 - Antibiotic Education ec2 - Prescription Opioid Use ec2 - Patient Portal Instructions ec2 - Leadership Thank You Letter ec2 Prescriptions: - gabapentin 600 mg Oral tablet - take 1 tablet ORAL route every 12 hours; 30 tablet; Refills: 0, Product ec2 Selection Permitted Signatures: Isha Bueno RN RN aa5 Rachael Mckeon RN RN [facility], MD [facility] ec2 Corrections: (The following items were deleted from the chart) 11:19 11:19 Acyclovir PO 400 mg PO once ordered. ec2 ec2
[2023-09-13] MEDS ORDERED: CODEINE 30MG/APAP 300MG TAB ONE (13:44)
[2023-09-13] MEDS ORDERED: dexAMETHasone 10 MG/ML VIAL ONE (13:44)
[2023-09-13 15:04] VITALS: BP 122/74; TEMP 98; O2SAT 99
== END 2023-09-13 14:58 | disposition home or self-care (01) ==
LOC: ER 11:05
DX: M54.31 Sciatica, right side (principal)
CPT/HCPCS: 96372; 99284; J1100; J2001

== ENCOUNTER 2023-10-01 17:32 | Emergency (ER) | payer SELFPAY ==
[2023-10-01 19:33] LABS: Specific Gravity 1.019 (1.005-1.030)
[2023-10-01 19:34] LABS: Specific Gravity 1.019 (1.005-1.030); Urine Bacteria <20 /HPF (<20); Urine Bilirubin 2+ (Negative); Urine Blood Negative (Negative); Urine Clarity Extremely Turbid (Clear); Urine Color Dark-Brown (Yellow); Urine Culture Reflex Order REFLEXED; Urine Glucose NEGATIVE (Negative); Urine Ketones NEGATIVE (Negative); Urine Microscopic Reflex YN ORDER UMIC; Urine Mucus Slight /HPF (None Seen); Urine Nitrite 2+ (Negative); Urine Protein 1+ (Negative); Urine Urobilinogen 3+ (Normal); Urine WBC >50 /HPF (<5)
[2023-10-01] MEDS ORDERED: ONDANSETRON 4 MG/2 ML VIAL ONE (19:53)
[2023-10-01] MEDS ORDERED: KETOROLAC 30 MG/ML INJ ONE (19:53)
[2023-10-01] MEDS ORDERED: MORPHINE 4 MG/ML SYR ONE (19:53)
[2023-10-01 20:03] LABS: Absolute Basophils 0.1 K/uL (0-0.5); Absolute Eosinophils 0.1 K/uL (0-0.5); Absolute Lymphocytes (CBC) 1.5 K/uL (0.7-4.9); Absolute Neutrophil 6.5 K/uL (1.8-8.0); Basophils % 0.7 % (0-1.3); Eosinophils % 0.6 % (0-4.4); Hematocrit 37.1 % (36.0-45.0); Hemoglobin 12.3 g/dL (12.0-15.0); Lymphocytes % 16.7 % (15.3-44.8); MCH 29.7 pg (27.0-35.0); MCHC 33.2 g/dL (32.0-36.0); MCV 89.5 fL (80-100); MPV 6.5 fL (7.6-11.3); Monocytes % 10.6 % (3.3-12.3); Neutrophils % 71.4 % (41.7-73.7); Nucleated Red Blood Cells % 0.1 % (0-0); Platelets 381 thou/uL (152-406); RBC Red Blood Cell Count 4.14 M/uL (3.86-4.86); Red Cell Distribution Width 14.3 % (12.1-15.2)
[2023-10-01 20:23] LABS: ALT/SGPT 16 U/L (13-56); Albumin 3.3 g/dL (3.4-5.0); Albumin/Globulin Ratio 0.9 (1.1-1.8); Alkaline Phosphatase 98 U/L (45-117); Anion Gap 5.5 mEq/L (5.0-15.0); BUN Blood Urea Nitrogen 10 mg/dL (7-18); Bicarbonate 31 mEq/L (21-32); Bilirubin Total 0.2 mg/dL (0.2-1.0); Globulin 3.8 g/dL (2.3-3.5); Glomerular Filtration Rate 91 ml/min (=/>90); Glucose Level 83 mg/dL (74-106); Lipase 14 U/L (13-75); Potassium 3.5 mEq/L (3.5-5.1); Protein, Total 7.1 g/dL (6.4-8.2); Sodium Level 136 mEq/L (136-145)
--- NOTE | 2023-10-01 20:23 | RAD REPORT ---
EXAM DESCRIPTION: CT - Abdomen Pelvis Wo Contrast - 10/01/2023 8:12 pm CLINICAL HISTORY: Abdominal pain flank pain COMPARISON: 2022 TECHNIQUE: Computed axial tomography of the abdomen and pelvis was obtained. IV and oral contrast we re not requested. All CT scans are performed using dose optimization technique as appropriate and may include automated exposure control or mA/KV adjustment according to patient size. FINDINGS: The evaluation of solid organs, vessels and bowel is limited secondary to the lack of con trast administration. Bilateral renal calculi. No hydronephrosis. Ureteral calculus is not seen. A bladder calculus. Liver, spleen, pancreas and adrenals grossly normal No evidence diverticulitis. Normal appendix No adnexal mass IMPRESSION: Small nonobstructing bilateral renal calculi
[2023-10-01 20:34] LABS: AST/SGOT < 10 U/L (15-37)
--- NOTE | 2023-10-01 21:15 | ER ---
Nurse's Notes [facility] Name: Sharyn Franco Age: 43 yrs Sex: Female : 1980 Arrival Date: 10/01/2023 Time: 17:32 Bed 17 Private MD: Diagnosis: Low back pain;UTI/ Urinary tract infection, site not specified Presentation: 09/30 18:09 Chief complaint: Patient states: Severe chronic back pain continues since her last ll1 visit here. Urinary leakage, dysuria, and being unable to fully empty bladder for 1 week. Taking azo. Coronavirus screen: Client denies travel out of the [place] in the last 14 days. At this time, the client does not indicate any symptoms associated with coronavirus-19. Ebola Screen: Patient denies travel to an Ebola-affected area in the 21 days before illness onset. Initial Sepsis Screen: Does the patient meet any 2 criteria? No. Patient's initial sepsis screen is negative. Does the patient have a suspected source of infection? No. Patient's initial sepsis screen is negative. Risk Assessment: Do you want to hurt yourself or someone else? Patient reports no desire to harm self or others. Onset of symptoms was September 26, 2023. 18:09 Method Of Arrival: Wheelchair ll1 18:09 Acuity: LIS 3 ll1 Triage Assessment: 18:11 General: Appears uncomfortable, Behavior is cooperative, appropriate for age. Pain: ll1 Complains of pain in back Quality of pain is described as aching. : Reports burning with urination, urinary frequency, leaking. Musculoskeletal: Reports chronic back pain. AFTERSCHOOL: 21:03 unknown cp4 Historical: - Allergies: 18:02 QUINOLONES; ll1 18:02 Ultram; ll1 - PMHx: 18:02 broken back (sciatica); epilepsy; Hypothyroidism; PCOS; sciatica; ll1 - PSHx: 18:02 cosmetic surgery (ca); ll1 - Immunization history:: Adult Immunizations. - Infectious Disease History:: Denies. - Family history:: not pertinent. - Social history:: Smoking status: Patient denies any tobacco usage or history of. Screenin:06 [facility] ED Fall Risk Assessment (Adult) History of falling in the last 3 months, cp4 including since admission No falls in past 3 months (0 pts) Confusion or Disorientation No (0 pts) Intoxicated or Sedated No (0 pts) Impaired Gait No (0 pts) Mobility Assist Device Used No (0 pt) Altered Elimination No (0 pt) Score/Fall Risk Level 0 - 2 = Low Risk Oriented to surroundings, Maintained a safe environment, Assessed \T\ reinforced patient's understanding of fall precautions, Hourly rounding (assess needs \T\ fall precautionary measures) done. Abuse screen: Denies threats or abuse. Nutritional screening: No deficits noted. Tuberculosis screening: No symptoms or risk factors identified. Assessment: 20:06 General: Appears uncomfortable, Behavior is calm, cooperative, appropriate for age. cp4 Pain: Complains of pain in back Pain currently is 10 out of 10 on a pain scale. Neuro: Level of Consciousness is awake, alert, obeys commands, Oriented to person, place, time, situation, Museum Guide are equal bilaterally Moves all extremities. Gait is steady, Speech is normal, Facial symmetry appears normal, Pupils are PERRLA, Intact. Vital Signs: 18:09 BP 94 / 54; Pulse 89; Resp 16; Temp 97.4; Pulse Ox 96% on R/A; Pain 10/10; ll1 19:54 BP 102 / 50; Pulse 93; Resp 18; Pulse Ox 100% ; cp4 21:00 BP 111 / 59; Pulse 81; Resp 18; Pulse Ox 98% ; cp4 18:09 Pain Scale: Adult ll1 ED Course: 17:36 Patient arrived in ED. im 18:02 Arm band placed on. ll1 18:05 Notified Charge Nurse of [place] to lay on stretcher due to her severe chronic back pain. ll1 None available at this time. Patient informed. Krista Charge Nurse informed. 18:11 Triage completed. ll1 18:13 Ced Kc MD is Attending Physician. rt 18:50 Notified Charge Nurse of Want her pain medication CAMRYN, wants a place to lay down. ll1 Night time Charge Nurse notified. No beds available at this time, patient notified. 19:00 Notified Charge Nurse of Gabrielles IV started for IV Pain medications and CT. Informed they ll1 will get her back CAMRYN. Charge nurse notified again. Still no bed available at this time. 19:10 Urine collected: clean catch specimen, adriana colored, Amount Voided: 250mL. ll1 19:25 Test, Urine Sent. ty 19:25 Urinalysis w/ reflexes Sent. ty 19:55 Kiesha Roy is Primary Nurse. cp4 19:59 Initial lab(s) drawn, by ED staff, sent to lab. Inserted saline lock: 22 gauge in right ty antecubital area, using aseptic technique. Blood collected. 20:06 Bed in low position. Call light in reach. Side rails up X 1. Provided Education on: cp4 back pain. 20:14 CT Abd/Pelvis - Without Contrast In Process Unspecified. EDMS 21:34 No provider procedures requiring assistance completed. intact, bleeding controlled, No cp4 redness/swelling at site. Pressure dressing applied. Administered Medications: 20:05 Drug: TORadol - Ketorolac IVP 15 mg IVP once Route: IVP; Site: right antecubital; cp4 21:04 Follow up: Response: No adverse reaction cp4 20:05 Drug: Ondansetron IVP 4 mg IVP once; over 2 minutes Route: IVP; Site: right antecubital;cp4 21:04 Follow up: Response: No adverse reaction cp4 20:05 Drug: morphine IVP or IV 4 mg IVP once over 4 mins Route: IVP; Infused Over: 4 mins; cp4 Site: right antecubital; 21:05 Follow up: Response: No adverse reaction; Pain is decreased cp4 21:19 Drug: Decadron - Dexamethasone IVP 10 mg IVP once Route: IVP; Site: right antecubital; cp4 21:34 Follow up: Response: No adverse reaction cp4 Medication: 20:06 VIS not applicable for this client. cp4 Outcome: 21:14 Discharge ordered by MD. rt 21:34 Discharged to home via wheelchair, cp4 21:34 Condition: stable 21:34 Discharge instructions given to patient, Instructed on discharge instructions, follow up and referral plans. medication usage, Demonstrated understanding of instructions, follow-up care, medications, Prescriptions given X 6 21:35 Patient left the ED. cp4 Addendum: 10/05/2023 07:48 Addendum: Culture Results: Positive urine culture. No further action required. Bacteria e b sensitive to prescribed antibiotic. Signatures: Dispatcher [employer] EDMS Sierra Reid Lynsay, RN RN [facility] Ced Kc MD MD rt Jackie Romano Christina cp4 Storm Messer Corrections: (The following items were deleted from the chart) 09/30 18:14 18:09 Pain 01/05, Adult; [place] [id number] 18: 18:09 Chief complaint: Patient states: Severe chronic back pain continues since her [facility] last visit here. Urinary leakage and dysuria for 1 week. [facility] :19 18:09 Chief complaint: Patient states: Severe chronic back pain continues since her [facility] last visit here. Urinary leakage, dysuria, and being unable to fully empty bladder for 1 week. [facility] : 18:05 Notified Charge Nurse of wants to lay on stretcher due to her severe chronic back ll1 pain. None available at this time. Patient informed. [facility] : 18:50 Notified Charge Nurse of [place] [id number]
--- NOTE | 2023-10-01 21:15 | EDPHYS ---
Physician Documentation [facility] Name: Sharyn Franco Age: 43 yrs Sex: Female : 1980 Arrival Date: 10/01/2023 Time: 17:32 Bed 17 Private MD: ED Physician Ced Kc HPI: 09/30 21:55 This 43 yrs old Female presents to ER via Wheelchair with complaints of Back Pain. rt 21:55 Patient with prior history of back fracture presents to the ED with worsening of her rt chronic back pain that radiates posteriorly down her legs. Patient also reports a left-sided flank pain with dysuria. Reports objective fever at home, denies other acute complaints, symptoms are moderate in severity, no other aggravating or alleviating factors.. 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 - Infectious Disease History:: Denies. - Family history:: not pertinent. - Social history:: Smoking status: Patient denies any tobacco usage or history of. ROS: 21:55 Cardiovascular: Negative for chest pain, palpitations, and edema, Respiratory: Negative rt for shortness of breath, cough, wheezing, and pleuritic chest pain, Abdomen/GI: Negative for abdominal pain, nausea, vomiting, diarrhea, and constipation, Skin: Negative for injury, rash, and discoloration, Neuro: Negative for headache, weakness, numbness, tingling, and seizure, 21:55 Constitutional: Positive for fever, malaise, Negative for 21:55 Back: Positive for pain at rest, pain with movement, flank pain, 21:55 : Positive for Cloudy urine, dysuria, Exam: 21:55 Constitutional: This is a well developed, well nourished patient who is awake, alert, rt and in no acute distress. Head/Face: Normocephalic, atraumatic. Chest/axilla: Normal chest wall appearance and motion. Nontender with no deformity. No lesions are appreciated. Cardiovascular: Regular rate and rhythm with a normal S1 and S2. No gallops, murmurs, or rubs. Normal PMI, no JVD. No pulse deficits. Respiratory: Lungs have equal breath sounds bilaterally, clear to auscultation and percussion. No rales, rhonchi or wheezes noted. No increased work of breathing, no retractions or nasal flaring. Abdomen/GI: Soft, non-tender, with normal bowel sounds. No distension or tympany. No guarding or rebound. No evidence of tenderness throughout. Skin: Warm, dry with normal turgor. Normal color with no rashes, no lesions, and no evidence of cellulitis. MS/ Extremity: Pulses equal, no cyanosis. Neurovascular intact. Full, normal range of motion. 21:55 Back: Midline lower lumbar, left CVAT, Vital Signs: 18:09 BP 94 / 54; Pulse 89; Resp 16; Temp 97.4; Pulse Ox 96% on R/A; Pain 10/10; ll1 19:54 BP 102 / 50; Pulse 93; Resp 18; Pulse Ox 100% ; cp4 21:00 BP 111 / 59; Pulse 81; Resp 18; Pulse Ox 98% ; cp4 18:09 Pain Scale: Adult ll1 MDM: 18:13 Patient medically screened. rt 21:55 Differential diagnosis: UTI, pyelo-, mechanical back pain. Data reviewed: vital signs, rt nurses notes, lab test result(s), radiologic studies. I considered the following discharge prescriptions or medication management in the emergency department Medications were administered in the Emergency Department. See MAR. Independent interpretation of the following test(s) in the Emergency Department CT Scan: My interpretation is No ureterolithiasis seen on interpretation of CT scan images. Test considered but Not performed: MRI: Patient had a recent MRI with no cord compression. I see no red flag symptoms, do not believe the patient requires MRI currently.. Counseling: I had a detailed discussion with the patient and/or guardian regarding the historical points, exam findings, and any diagnostic results supporting the discharge/admit diagnosis, lab results, radiology results, the need for outpatient follow up. Response to treatment: the patient's symptoms have markedly improved after treatment. 09/30 18:27 Order name: CBC with Diff; Complete Time: 20:21 rt 09/30 18:27 Order name: CMP; Complete Time: 20:56 rt 09/30 18:27 Order name: Lipase; Complete Time: 20:56 rt 09/30 18:27 Order name: Test, Urine; Complete Time: 20:21 rt 09/30 18:27 Order name: Urinalysis w/ reflexes; Complete Time: 20:21 rt 09/30 19:37 Order name: Urine Culture EDMS 09/30 18:27 Order name: CT Abd/Pelvis - Without Contrast; Complete Time: 20:30 rt 09/30 18:27 Order name: IV Saline Lock; Complete Time: 19:59 rt 09/30 18:27 Order name: Labs collected and sent; Complete Time: 19:59 rt 09/30 21:13 Order name: Ice pack; Complete Time: 21:14 rt Administered Medications: 20:05 Drug: TORadol - Ketorolac IVP 15 mg IVP once Route: IVP; Site: right antecubital; cp4 21:04 Follow up: Response: No adverse reaction cp4 20:05 Drug: Ondansetron IVP 4 mg IVP once; over 2 minutes Route: IVP; Site: right antecubital;cp4 21:04 Follow up: Response: No adverse reaction cp4 20:05 Drug: morphine IVP or IV 4 mg IVP once over 4 mins Route: IVP; Infused Over: 4 mins; cp4 Site: right antecubital; 21:05 Follow up: Response: No adverse reaction; Pain is decreased cp4 21:19 Drug: Decadron - Dexamethasone IVP 10 mg IVP once Route: IVP; Site: right antecubital; cp4 21:34 Follow up: Response: No adverse reaction cp4 Disposition Summary: 10/01/23 21:14 Discharge Ordered Notes: Location: Home rt Condition: Stable rt Diagnosis - Low back pain rt - UTI/ Urinary tract infection, site not specified rt Followup: rt - With: Private Physician - When: 2 - 3 days - Reason: Discharge Instructions: - Discharge Summary Sheet rt - Acute Back Pain, Adult rt - Urinary Tract Infection, Adult rt Forms: - Medication Reconciliation Form rt - Antibiotic Education rt - Prescription Opioid Use rt - Patient Portal Instructions rt - Leadership Thank You Letter rt Prescriptions: - Lidoderm 5 % Topical adhesive patch, medicated - apply 1 patch TOPICAL route every 24 hours leave on most painful area for up to rt 12 hrs; 10 patch; Refills: 0, Product Selection Permitted - acetaminophen-codeine 300-30 mg Oral tablet - take 1 tablet ORAL route every 6 hours as needed for pain; 18 tablet; Refills: rt 0, Product Selection Permitted - Zofran 4 mg Oral tablet - take 1 tablet ORAL route every 12 hours As needed; 30 tablet; Refills: 0, rt Product Selection Permitted - Cyclobenzaprine 10 mg Oral Tablet - take 1 tablet ORAL route every 8 hours As needed; 30 tablet; Refills: 0, rt Product Selection Permitted - Medrol (Josesito) 4 mg Oral Tablets, Dose Pack - take 1 tablet ORAL route as directed - follow package instructions; 1 packet; rt Refills: 0, Product Selection Permitted - cefpodoxime 200 mg Oral tablet - take 1 tablet ORAL route every 12 hours with food; 14 tablet; Refills: 0, rt Product Selection Permitted Signatures: Dispatcher [employer] Aristeo Watts, RAMÓN RN ll1 Ced Kc MD MD rt Kiesha Roy cp4 Corrections: (The following items were deleted from the chart) 18:27 18:27 Abdomen Pelvis Wo Con+CT.RAD.BRZ ordered. EDMS EDMS
[2023-10-01] MEDS ORDERED: dexAMETHasone 10 MG/ML VIAL ONE (21:16)
[2023-10-01 22:38] VITALS: TEMP 97.4
[2023-10-01 22:57] VITALS: BP 111/59; O2SAT 98
== END 2023-10-01 21:35 | disposition home or self-care (01) ==
LOC: ER 17:32
DX: N39.0 Urinary tract infection, site not specified (principal)
CPT/HCPCS: 36415; 74176; 80053; 81001; 81025; 83690; 85025; 87077; 87086; 87088; 87186; 96374; 96375; 99284; J1100; J2405

== ENCOUNTER 2024-01-27 15:07 | Emergency (ER) | payer SELFPAY ==
[2024-01-27] MEDS ORDERED: dexAMETHasone 10 MG/ML VIAL ONE (15:42)
[2024-01-27] MEDS ORDERED: MORPHINE 4 MG/ML SYR ONE (15:43)
[2024-01-27] MEDS ORDERED: ONDANSETRON 4 MG (ODT) TAB ONE (15:43)
[2024-01-27] MEDS ORDERED: DIAZEPAM 10 MG/2 ML INJ SYRINGE ONE (16:55)
[2024-01-27] MEDS ORDERED: KETOROLAC 30 MG/ML INJ ONE (16:55)
[2024-01-27 17:01] LABS: Specific Gravity 1.006 (1.005-1.030)
[2024-01-27 17:02] LABS: Specific Gravity 1.006 (1.005-1.030); Sqamous Epithelial <5 /HPF (None Seen); Urine Bacteria <20 /HPF (<20); Urine Bilirubin NEGATIVE (Negative); Urine Blood Negative (Negative); Urine Clarity Clear (Clear); Urine Color Colorless (Yellow); Urine Culture Reflex Order NOT NEEDED; Urine Glucose NEGATIVE (Negative); Urine Ketones NEGATIVE (Negative); Urine Micro Reflex YN NO BILL MICROSCOPIC; Urine Nitrite NEGATIVE (Negative); Urine Protein NEGATIVE (Negative); Urine RBC <5 /HPF (None Seen); Urine Urobilinogen Normal (Normal); Urine WBC <5 /HPF (<5)
[2024-01-27 17:17] LABS: Barbiturates NEGATIVE (NEGATIVE); Benzodiazepines NEGATIVE (NEGATIVE); Cocaine NEGATIVE (NEGATIVE); METHAMPHETAM NEGATIVE (NEGATIVE); Methadone NEGATIVE (NEGATIVE); Opiates NEGATIVE (NEGATIVE); Phencyclidine NEGATIVE (NEGATIVE); THC Cannibis POSITIVE (NEGATIVE)
--- NOTE | 2024-01-27 17:51 | EDPHYS ---
Physician Documentation [facility] Name: Sharyn Franco Age: 43 yrs Sex: Female : 1980 Arrival Date: 01/27/2024 Time: 15:07 Bed 6 Private MD: ED Physician Ranjit Arnold HPI: 01/26 15:39 This 43 yrs old Female presents to ER via Ambulatory with complaints of Back Pain. sb4 15:39 Patient reports chronic right-sided back pain secondary to an injury about 1 year ago. sb4 States she was told she has a fracture in her L2 but hasn't had insurance so has not been able to see a specialist. States that her pain fluctuates from day-to-day. States she used a new pillow last night and woke up in a lot of pain. Historical: - Allergies: 15:16 QUINOLONES; ko1 15:16 Ultram; ko1 15:16 Levofloxacin; ko1 - PMHx: 15:16 broken back (sciatica); epilepsy; Hypothyroidism; PCOS; sciatica; ko1 - PSHx: 15:16 cosmetic surgery; ko1 - Immunization history:: Adult Immunizations up to date. - Infectious Disease History:: Denies. - Social history:: Smoking status: Patient denies any tobacco usage or history of. ROS: 15:41 Constitutional: Negative for fever, chills, and weight loss, sb4 15:41 Back: Positive for injury or acute deformity, pain at rest, pain with movement, radiated pain, of the right low back, 15:41 All other systems are negative, Exam: 15:42 Head/Face: Normocephalic, atraumatic. Eyes: Extra-ocular motions intact. Periorbital sb4 areas with no swelling, redness, or edema. ENT: Mucous membranes moist. 15:42 Constitutional: The patient appears alert, awake, crying 15:42 Neuro: Motor: moves all fours, seizure activity, is not displayed by the patient, 15:42 Special observations: will not allow me to examine, Vital Signs: 15:12 BP 119 / 72; Pulse 58; Resp 18; Temp 97.5; Pulse Ox 100% ; ko1 18:47 BP 121 / 67; Pulse 62; Resp 16; Temp 97.9; Pulse Ox 100% ; bp MDM: 15:12 Medical Screening Exam initiated sb4 15:44 External Records Reviewed: Inpatient record: MRI lumbar spine without contrast from sb4 09/10/23 showed "right sided paracentral disc protrusion as detailed at L5-S1 results right exit foraminal stenosis and right lateral recess stenosis as described". 15:47 Counseling: I had a detailed discussion with the patient and/or guardian regarding the sb4 historical points, exam findings, and any diagnostic results supporting the discharge/admit diagnosis, the need for outpatient follow up, a neurosurgeon. 17:38 Data reviewed: vital signs, nurses notes, and as a result, I will discharge patient. sb4 01/26 16:04 Order name: UAM; Complete Time: 17:03 sb4 01/26 16:04 Order name: Test, Urine; Complete Time: 17:03 sb4 01/26 16:04 Order name: UDS; Complete Time: 17:17 sb4 Administered Medications: 15:54 Drug: morphine IM 4 mg IM once Route: IM; Site: right gluteus; bp 17:09 Follow up: Response: No adverse reaction bp 15:54 Drug: Ondansetron PO 4 mg PO once Route: PO; bp 17:09 Follow up: Response: No adverse reaction bp 15:55 Drug: Dexamethasone IM 10 mg IM once Route: IM; Site: right gluteus; bp 17:09 Follow up: Response: No adverse reaction bp 17:09 Drug: Ketorolac IM 30 mg IM once Route: IM; Site: left gluteus; bp 18:46 Follow up: Response: No adverse reaction bp 17:09 Drug: Diazepam IM 5 mg IM once Route: IM; Site: left gluteus; bp 18:46 Follow up: Response: No adverse reaction bp 18:30 Drug: Methocarbamol PO 1000 mg PO once Route: PO; bp 18:46 Follow up: Response: No adverse reaction bp 18:46 Not Given (Other Intervention Used): methocarbamoL 1 grams IM once; as a single dose bp Disposition Summary: 01/27/24 17:51 Discharge Ordered Notes: Location: Home sb4 Problem: an acute exacerbation sb4 Symptoms: have improved sb4 Condition: Stable sb4 Diagnosis - Low back pain - acute on chronic sb4 Followup: sb4 - With: Private Physician - When: 1 - 2 days - Reason: Recheck today's complaints, Re-evaluation by your physician Discharge Instructions: - Discharge Summary Sheet sb4 - Chronic Back Pain sb4 Forms: - Patient Portal Instructions sb4 - Leadership Thank You Letter sb4 Prescriptions: - Cyclobenzaprine 10 mg Oral Tablet - take 1 tablet ORAL route every 8 hours As needed; 30 tablet; Refills: 0, sb4 Product Selection Permitted - Diclofenac Sodium 75 mg Oral Tablet Sustained Release - take 1 tablet ORAL route 2 times per day; 30 tablet; Refills: 0, Product sb4 Selection Permitted - Medrol (Josesito) 4 mg Oral Tablets, Dose Pack - take 1 tablet ORAL route as directed - follow package instructions; 1 packet; sb4 Refills: 0, Product Selection Permitted Addendum: 01/29/2024 17:50 I was immediately available for consultation during this patient's visit. I did not e c2 personally see the patient or discuss the patient with the JOSELITO. . Signatures: Dispatcher [employer] Octaviano Villanueva RN RN bp Oliver, Kathy, RN RN ko1 Leticia Starr PA-C PA-C sb4 Ranjit Arnold MD MD ec2
--- NOTE | 2024-01-27 17:51 | ER ---
Nurse's Notes [facility] Name: Sharyn Franco Age: 43 yrs Sex: Female : 1980 Arrival Date: 01/27/2024 Time: 15:07 Bed 6 Private MD: Diagnosis: Low back pain-acute on chronic Presentation: 01/26 15:12 Chief complaint: Patient states: I need some pain relief, I think I slept on my back ko1 wrong. I just got approved for social security so I can have my back surgery because my back is broken. Coronavirus screen: At this time, the client does not indicate any symptoms associated with coronavirus-19. Ebola Screen: No symptoms or risks identified at this time. Initial Sepsis Screen: Does the patient meet any 2 criteria? No. Patient's initial sepsis screen is negative. Does the patient have a suspected source of infection? No. Patient's initial sepsis screen is negative. Risk Assessment: Do you want to hurt yourself or someone else? Patient reports no desire to harm self or others. Onset of symptoms is unknown. 15:12 Method Of Arrival: Ambulatory ko1 15:12 Acuity: LIS 4 ko1 Triage Assessment: 15:16 General: Appears in no apparent distress. Behavior is cooperative, appropriate for age. ko1 Pain: Complains of pain in lumbar area. Musculoskeletal: Circulation, motion, and sensation intact. Range of motion: intact in all extremities. Historical: - Allergies: 15:16 QUINOLONES; ko1 15:16 Ultram; ko1 15:16 Levofloxacin; ko1 - PMHx: 15:16 broken back (sciatica); epilepsy; Hypothyroidism; PCOS; sciatica; ko1 - PSHx: 15:16 cosmetic surgery; ko1 - Immunization history:: Adult Immunizations up to date. - Infectious Disease History:: Denies. - Social history:: Smoking status: Patient denies any tobacco usage or history of. Screenin:47 [facility] ED Fall Risk Assessment (Adult) History of falling in the last 3 months, bp including since admission No falls in past 3 months (0 pts) Confusion or Disorientation No (0 pts) Intoxicated or Sedated No (0 pts) Impaired Gait No (0 pts) Mobility Assist Device Used No (0 pt) Altered Elimination No (0 pt) Score/Fall Risk Level 0 - 2 = Low Risk. Abuse screen: Denies threats or abuse. Denies injuries from another. Nutritional screening: No deficits noted. Tuberculosis screening: No symptoms or risk factors identified. Assessment: 15:30 General: Appears uncomfortable, Behavior is cooperative, appropriate for age, crying. bp Pain: Complains of pain in back. 17:30 Reassessment: Patient states symptoms have improved. bp 18:47 Reassessment: DC WITH FAMILY. bp Vital Signs: 15:12 BP 119 / 72; Pulse 58; Resp 18; Temp 97.5; Pulse Ox 100% ; ko1 18:47 BP 121 / 67; Pulse 62; Resp 16; Temp 97.9; Pulse Ox 100% ; bp ED Course: 15:10 Patient arrived in ED. im 15:11 Leticia Starr PA-C is PHCP. sb4 15:11 Ranjit Arnold MD is Attending Physician. sb4 15:16 Triage completed. ko1 15:16 Arm band placed on right wrist. Patient placed in an exam room, on a stretcher, on ko1 pulse oximetry, Patient notified of wait time. 15:20 Kar Resendez RN is Primary Nurse. tm6 18:47 Patient has correct armband on for positive identification. bp 18:47 No provider procedures requiring assistance completed. Patient did not have IV access bp during this emergency room visit. Administered Medications: 15:54 Drug: morphine IM 4 mg IM once Route: IM; Site: right gluteus; bp 17:09 Follow up: Response: No adverse reaction bp 15:54 Drug: Ondansetron PO 4 mg PO once Route: PO; bp 17:09 Follow up: Response: No adverse reaction bp 15:55 Drug: Dexamethasone IM 10 mg IM once Route: IM; Site: right gluteus; bp 17:09 Follow up: Response: No adverse reaction bp 17:09 Drug: Ketorolac IM 30 mg IM once Route: IM; Site: left gluteus; bp 18:46 Follow up: Response: No adverse reaction bp 17:09 Drug: Diazepam IM 5 mg IM once Route: IM; Site: left gluteus; bp 18:46 Follow up: Response: No adverse reaction bp 18:30 Drug: Methocarbamol PO 1000 mg PO once Route: PO; bp 18:46 Follow up: Response: No adverse reaction bp 18:46 Not Given (Other Intervention Used): methocarbamoL 1 grams IM once; as a single dose bp Medication: 18:47 VIS not applicable for this client. bp Outcome: 17:51 Discharge ordered by . vida 18:47 Discharged to home via wheelchair, with family, bp 18:47 Discharge instructions given to patient, family, Instructed on discharge instructions, follow up and referral plans. medication usage, Demonstrated understanding of instructions, follow-up care, medications, Prescriptions given X 3, 18:48 Condition: stable bp 18:49 Patient left the ED. bp Signatures: Octaviano Guy, RN RN bp Charisse Arrington, RAMÓN RN ko1 Leticia Starr, PA-C PA-Alexander guo4 Jackie Romano Tawney, RN RN tm6
[2024-01-27] MEDS ORDERED: METHOCARBAMOL 1,000 MG/10 ML VIAL ONE (18:27)
[2024-01-27] MEDS ORDERED: methocarbamoL 500 MG TAB ONE (18:39)
[2024-01-27 18:54] VITALS: O2SAT 100
[2024-01-27 18:55] VITALS: BP 121/67; TEMP 97.9
== END 2024-01-27 18:49 | disposition home or self-care (01) ==
LOC: ER 15:07
DX: M54.50 Low back pain, unspecified (principal)
CPT/HCPCS: 80307; 81001; 81025; 96372; 99284; J1100; J2800; J3360; Q0162

== ENCOUNTER 2024-02-23 14:16 | Emergency (ER) | payer SELFPAY ==
[2024-02-23] MEDS ORDERED: ONDANSETRON 4 MG/2 ML VIAL ONE (16:10)
[2024-02-23] MEDS ORDERED: MORPHINE 2 MG/ML SYR ONE ×2 (16:11→18:55)
[2024-02-23] MEDS ORDERED: KETOROLAC 30 MG/ML INJ ONE (16:11)
[2024-02-23] MEDS ORDERED: DIAZEPAM 5 MG TABLET ONE (16:11)
[2024-02-23] MEDS ORDERED: NA CHLORIDE 0.9% 1,000 ML ONE (16:11)
[2024-02-23 16:14] LABS: Absolute Basophils 0.1 K/uL (0-0.5); Absolute Eosinophils 0.1 K/uL (0-0.5); Absolute Lymphocytes (CBC) 2.3 K/uL (0.7-4.9); Absolute Monocytes 0.7 K/uL (0.1-1.3); Absolute Neutrophil 6.3 K/uL (1.8-8.0); Basophils % 0.7 % (0-1.3); Eosinophils % 1.1 % (0-4.4); Hematocrit 40.8 % (36.0-45.0); Hemoglobin 13.3 g/dL (12.0-15.0); Lymphocytes % 24.2 % (15.3-44.8); MCH 28.9 pg (27.0-35.0); MCHC 32.7 g/dL (32.0-36.0); MCV 88.6 fL (80-100); MPV 7.8 fL (7.6-11.3); Monocytes % 7.2 % (3.3-12.3); Neutrophils % 66.8 % (41.7-73.7); Platelets 336 thou/uL (152-406); RBC Red Blood Cell Count 4.61 M/uL (3.86-4.86); Red Cell Distribution Width 16.3 % (12.1-15.2)
[2024-02-23 16:29] LABS: Albumin 4.2 g/dL (3.4-5.0); Albumin/Globulin Ratio 1.2 (1.1-1.8); Anion Gap 10.3 mEq/L (5.0-15.0); Bilirubin Total 0.4 mg/dL (0.2-1.0); Globulin 3.5 g/dL (2.3-3.5); Potassium 4.3 mEq/L (3.5-5.1); Protein, Total 7.7 g/dL (6.4-8.2)
--- NOTE | 2024-02-23 18:39 | RAD REPORT ---
EXAM: CT brain without contrast HISTORY: Headache;Trauma COMPARISON: None TECHNIQUE: Multiple contiguous axial images were obtained and a CT of the brain without contrast. Sag ittal and coronal reformats were performed. One or more of the following dose reduction techniques were used: Automated exposure control, adjust ment of the mA and/or kV according to patient size, and/or iterative reconstruction. FINDINGS: No evidence of hydrocephalus, intracranial hemorrhage, or extra-axial fluid collection. The brain is normal in morphology. No evidence of midline shift or areas of brain edema. The calvarium is intact. The visualized paranasal sinuses and mastoid air cells are essentially clear . IMPRESSION: No evidence of acute intracranial abnormality. EXAM: CT of the cervical spine without contrast HISTORY: Neck pain, injury Headache;Trauma TECHNIQUE: Multiple contiguous axial images were obtained in a CT of the cervical spine without contr ast. Sagittal and coronal reformats were performed. FINDINGS: The vertebral bodies demonstrate normal height and alignment. No evidence of acute fracture or subluxation.. Posterior disc bulge noted C6-7. No prevertebral soft tissue swelling is seen. The posterior facets are well aligned. Normal alignment of the skull base with the cervical spine is seen. The lung apices are unremarkable. IMPRESSION: No evidence of acute osseous abnormality of the cervical spine.
--- NOTE | 2024-02-23 18:40 | RAD REPORT ---
EXAMINATION: CTA HEAD CLINICAL INDICATION: HEADACHE TECHNIQUE: Axial CT images were obtained through the head after intravenous contrast utilizing angiog raphic protocol with 3D post-processing (maximum intensity projection images, volume rendered images and/or shaded surface rendered images). One or more of the following dose reduction technique s were used: Automated exposure control, adjustment of the mA and/or kV according to patient size, and/or iterative reconstruction. Unless otherwise specified, incidental findings do not require dedic ated imaging follow-up. COMPARISON: No prior exam. FINDINGS: ICA: The petrous, cavernous, and supraclinoid segments of the bilateral internal carotid arteries are normal. The ophthalmic artery origins are visualized and normal. The posterior communicating arteries are patent. CARMELITA: Anterior cerebral arteries are normal bilaterally. The anterior communicating artery is patent. MCA: Middle cerebral arteries are normal bilaterally. CAMP HEAD COUNSELOR: Posterior cerebral arteries are normal bilaterally. Vertebrobasilar: The vertebral arteries are patent. The basilar artery is normal in appearance. 3D images confirm these findings. IMPRESSION: No significant flow abnormality is identified.
[2024-02-23 18:41] LABS: Specific Gravity 1.021 (1.005-1.030)
--- NOTE | 2024-02-23 18:44 | RAD REPORT ---
EXAMINATION: CTA NECK CLINICAL INDICATION: PAIN TECHNIQUE: Axial CT images were obtained from the aortic arch to the skull base after intravenous con trast utilizing angiographic protocol with 3D post-processing (maximum intensity projection images, volume rendered images and/or shaded surface rendered images). One or more of the following dose redu ction techniques were used: Automated exposure control, adjustment of the mA and/or kV according to patient size, and/or iterative reconstruction. Unless otherwise specified, incidental findings do not require dedicated imaging follow-up. COMPARISON: No prior exam. FINDINGS: AORTA: The imaged aortic arch is normal. CCA: The common carotid arteries are patent and normal in caliber. ICA/ECA: Bilateral internal and external carotid arteries are patent. There is no significant interna l carotid artery stenosis. VERTEBRAL: The cervical vertebral arteries are patent. The left vertebral artery is mildly dominant. SOFT TISSUE: No significant neck soft tissue abnormalities. The visualized lung apices are clear. 3D images confirm these findings. IMPRESSION: No significant flow abnormality of the neck vessels is identified. NASCET criteria used. Mild 0-49% stenosis Moderate 50-69% stenosis Severe 70-99% stenosis
[2024-02-23 18:46] LABS: Specific Gravity 1.021 (1.005-1.030); Sqamous Epithelial <5 /HPF (None Seen); Urine Bacteria None Seen /HPF (<20); Urine Bilirubin NEGATIVE (Negative); Urine Blood 1+ (Negative); Urine Clarity Extremely Turbid (Clear); Urine Color Light-Yellow (Yellow); Urine Crystals Unidentified Few /HPF (None Seen); Urine Culture Reflex Order REFLEXED; Urine Glucose NEGATIVE (Negative); Urine Ketones NEGATIVE (Negative); Urine Microscopic Reflex YN ORDER UMIC; Urine Mucus Slight /HPF (None Seen); Urine Nitrite 2+ (Negative); Urine Protein NEGATIVE (Negative); Urine RBC 21-50 /HPF (None Seen); Urine Urobilinogen Normal (Normal); Urine WBC >50 /HPF (<5); Urine WBC Clump Rare /HPF (None Seen); Urine Yeast (Budding) Occasional /HPF (None Seen)
--- NOTE | 2024-02-23 18:46 | RAD REPORT ---
EXAM: CT CHEST, ABDOMEN AND PELVIS WITHOUT CONTRAST CLINICAL INDICATION: Pain;Trauma TECHNIQUE: CT chest, abdomen and pelvis was performed without contrast, as per department protocol. A xial, sagittal and coronal reconstructions were obtained. One or more of the following dose reduction techniques were used: Automated exposure control, adjustment of the mA and/or kV according to patient size, and/or iterative reconstruction. Unless otherwise specified, incidental findings do not require dedicated imaging follow-up. Examination is limited by the lack of intravenous contrast material. COMPARISON: No prior exam. FINDINGS: LUNGS: No evidence of airspace or interstitial process. No nodules. PLEURA: No pleural effusion. No pneumothorax. MEDIASTINUM AND LYMPH NODES: No mediastinal mass or fluid collection. Normal size mediastinal, hilar, and axillary lymph nodes. OSSEOUS STRUCTURES AND CHEST WALL: Intact. LIVER: Normal in size and contour. No focal lesion or biliary dilatation. Grossly unremarkable gallbl adder. PANCREAS: No mass, ductal dilation, or celina-pancreatic fluid. SPLEEN: Normal size. No focal lesion. ADRENALS: Normal; no mass. KIDNEYS: Normal size and contour. No hydronephrosis. URINARY BLADDER: Normal contour. GASTROINTESTINAL TRACT: No bowel obstruction, free air, significant free fluid or abscess. APPENDIX: Normal appendix. LYMPH NODES: No lymphadenopathy. MUSCULOSKELETAL: No acute or suspicious osseous abnormality. OTHER: IMPRESSION: No acute or significant abnormalities seen in the chest, abdomen or pelvis.
--- NOTE | 2024-02-23 19:52 | EDPHYS ---
Physician Documentation [facility] Name: Sharyn Franco Age: 43 yrs Sex: Female : 1980 Arrival Date: 02/23/2024 Time: 14:16 Bed 8 Private MD: JAY Physician Gustavo Canales HPI: 02/22 16:46 This 43 yrs old Female presents to ER via Wheelchair with complaints of Back guilherme Injury, Neck and Upper Back Pain, Blurred Vision. 16:46 The patient presents with pain and decreased range of motion, and an injury, and spasm, guilherme stiffness, tightness. The symptoms are located in the thoracic area and lumbar area. Onset: The symptoms/episode began/occurred 2 day(s) ago. The pain does not radiate. Associated signs and symptoms: The patient has no apparent associated signs or symptoms. Modifying factors: The patient symptoms are alleviated by. Historical: - Allergies: 14:56 Levofloxacin; hb 14:56 QUINOLONES; hb 14:56 Ultram; hb - Home Meds: 14:56 Synthroid Oral [Active]; Clonazepam Oral [Active]; hb - PMHx: 14:56 broken back (sciatica); epilepsy; Hypothyroidism; PCOS; sciatica; hb - PSHx: 14:56 cosmetic surgery; hb ROS: 17:44 Constitutional: Negative for fever, chills, and weight loss, Eyes: Negative for injury, guilherme pain, redness, and discharge, ENT: Negative for injury, pain, and discharge, Cardiovascular: Negative for chest pain, palpitations, and edema, Respiratory: Negative for shortness of breath, cough, wheezing, and pleuritic chest pain, Abdomen/GI: Negative for abdominal pain, nausea, vomiting, diarrhea, and constipation, : Negative for injury, bleeding, discharge, and swelling, MS/Extremity: Negative for injury and deformity, Skin: Negative for injury, rash, and discoloration, Neuro: Negative for headache, weakness, numbness, tingling, and seizure, Psych: Negative for depression, anxiety, suicide ideation, homicidal ideation, and hallucinations, Allergy/Immunology: Negative for hives, rash, and allergies, Endocrine: Negative for neck swelling, polydipsia, polyuria, polyphagia, and marked weight changes, Hematologic/Lymphatic: Negative for swollen nodes, abnormal bleeding, and unusual bruising, 17:44 Back: Positive for decreased range of motion, pain at rest, pain with movement, of the thoracic area, Exam: 17:44 Constitutional: This is a well developed, well nourished patient who is awake, alert, guilherme and in no acute distress. Head/Face: Normocephalic, atraumatic. Eyes: Pupils equal round and reactive to light, extra-ocular motions intact. Lids and lashes normal. Conjunctiva and sclera are non-icteric and not injected. Cornea within normal limits. Periorbital areas with no swelling, redness, or edema. ENT: Nares patent. No nasal discharge, no septal abnormalities noted. Tympanic membranes are normal and external auditory canals are clear. Oropharynx with no redness, swelling, or masses, exudates, or evidence of obstruction, uvula midline. Mucous membranes moist. Neck: Trachea midline, no thyromegaly or masses palpated, and no cervical lymphadenopathy. Supple, full range of motion without nuchal rigidity, or vertebral point tenderness. No Meningismus. Chest/axilla: Normal chest wall appearance and motion. Nontender with no deformity. No lesions are appreciated. Cardiovascular: Regular rate and rhythm with a normal S1 and S2. No gallops, murmurs, or rubs. Normal PMI, no JVD. No pulse deficits. Respiratory: Lungs have equal breath sounds bilaterally, clear to auscultation and percussion. No rales, rhonchi or wheezes noted. No increased work of breathing, no retractions or nasal flaring. Abdomen/GI: Soft, non-tender, with normal bowel sounds. No distension or tympany. No guarding or rebound. No evidence of tenderness throughout. Back: No spinal tenderness. No costovertebral tenderness. Full range of motion. Skin: Warm, dry with normal turgor. Normal color with no rashes, no lesions, and no evidence of cellulitis. MS/ Extremity: Pulses equal, no cyanosis. Neurovascular intact. Full, normal range of motion. Neuro: Awake and alert, GCS 15, oriented to person, place, time, and situation. Cranial nerves II-XII grossly intact. Motor strength 5/5 in all extremities. Sensory grossly intact. Cerebellar exam normal. Normal gait. Psych: Awake, alert, with orientation to person, place and time. Behavior, mood, and affect are within normal limits. 19:46 ECG was reviewed by the Attending Physician. [facility] Vital Signs: 14:54 BP 124 / 89; Pulse 92; Resp 16; Temp 97.8(TE); Pulse Ox 100% on R/A; Weight 61.23 kg; hb Height 5 ft. 5 in. ; Pain 10/10; 19:30 BP 126 / 87; Pulse 58; Resp 16; Pulse Ox 99% on R/A; jb4 20:30 BP 144 / 98; Pulse 65; Resp 16; Pulse Ox 99% on R/A; jb4 14:54 Body Mass Index 22.46 (61.23 kg, 165.1 cm) hb 14:54 Pain Scale: Adult hb MDM: 14:21 Medical Screening Exam initiated guilherme 19:46 Differential diagnosis: Fracture Ligament Injury Obesity Pyelonephritis ruptured disc, guilherme spinal injury, sprain, vertebral fracture. Data reviewed: vital signs, nurses notes, lab test result(s), EKG, radiologic studies, CT scan. Consideration of Admission/Observation Escalation of care including admission/observation considered. I considered the following discharge prescriptions or medication management in the emergency department Medications were administered in the Emergency Department. See MAR. Independent interpretation of the following test(s) in the Emergency Department EKG: See my EKG interpretation above. Test considered but Not performed: Ultrasound NO CAROTID DOPPLER. Care significantly affected by the following chronic conditions: BACK , EPILEPSY, HYPOTHYROID. Counseling: I had a detailed discussion with the patient and/or guardian regarding the historical points, exam findings, and any diagnostic results supporting the discharge/admit diagnosis, lab results, radiology results, the need for outpatient follow up, for definitive care, a family practitioner. 02/22 14:24 Order name: CBC with Diff; Complete Time: 16:37 [facility] 02/22 14:24 Order name: Comprehensive Metabolic Panel; Complete Time: 16:37 [facility] 02/22 14:24 Order name: Urinalysis w/ reflexes; Complete Time: 19:48 [facility] 02/22 14:24 Order name: PREGU; Complete Time: 19:48 [facility] 02/22 18:50 Order name: Urine Culture EDID 02/22 14:24 Order name: CT Head C Spine; Complete Time: 19:48 [facility] 02/22 14:24 Order name: CT Chest Abdomen Pelvis W/O Contrast; Complete Time: 19:48 [facility] 02/22 16:46 Order name: CT Head Angio; Complete Time: 19:48 [facility] 02/22 16:46 Order name: CT Neck Angio; Complete Time: 19:48 [facility] 02/22 19:47 Order name: EKG - Nurse/Tech; Complete Time: 19:47 jb4 EC:46 Rate is 55 beats/min. Rhythm is regular. QRS [place] is Normal. ID interval is normal. QRS guilherme interval is normal. QT interval is normal. No Q waves. T waves are Normal. No ST changes noted. Clinical impression: Sinus bradycardia and No evidence of ischemia. Interpreted by me. Reviewed by me. Administered Medications: 16:19 Drug: Ondansetron IVP 4 mg IVP once; over 2 minutes Route: IVP; Site: left antecubital; jb4 21:14 Follow up: Response: No adverse reaction; Marked relief of symptoms jb4 16:19 Drug: Ketorolac IVP 15 mg IVP once Route: IVP; Site: left antecubital; jb4 21:13 Follow up: Response: No adverse reaction jb4 16:20 Drug: NS 0.9% IV 1000 ml IV at 1000 ml once; to be given as a bolus over 60 minutes jb4 Route: IV; Rate: 1000 ml; Site: left antecubital; 17:20 Follow up: Response: No adverse reaction; IV Status: Completed infusion; IV Intake: jb4 1000ml 16:20 Drug: Diazepam PO 10 mg PO once Route: PO; jb4 21:14 Follow up: Response: No adverse reaction; Marked relief of symptoms jb4 16:20 Drug: morphine IVP or IV 2 mg IVP once over 4 mins Route: IVP; Infused Over: 4 mins; jb4 Site: left antecubital; 21:14 Follow up: Response: No adverse reaction; Marked relief of symptoms jb4 19:11 Drug: morphine IVP or IV 2 mg IVP once over 4 mins Route: IVP; Infused Over: 4 mins; jb4 Site: left antecubital; 21:14 Follow up: Response: No adverse reaction; Marked relief of symptoms jb4 20:52 Drug: Rocephin IV 1 grams IV at per protocol once; Given slow IV push per pharmacy jb4 instructions Route: IV; Rate: per protocol; Site: left antecubital; 21:12 Follow up: Response: No adverse reaction; IV Status: Completed infusion; IV Intake: 27kjrs2 20:52 Drug: Cefdinir PO 300 mg PO once Route: PO; jb4 21:13 Follow up: Response: No adverse reaction jb4 20:52 Drug: Trimethoprim-Sulfamethoxazole PO (160 mg-800 mg (DS) 1 tablet PO once Route: PO; jb4 21:13 Follow up: Response: No adverse reaction jb4 20:52 Drug: LORazepam PO 0.5 mg PO once Route: PO; jb4 21:13 Follow up: Response: No adverse reaction jb4 Disposition Summary: 02/23/24 19:51 Discharge Ordered Notes: Location: Home guilherme Problem: new guilherme Symptoms: have improved guilherme Condition: Stable guilherme Diagnosis - Strain of muscle, fascia and tendon at neck level, initial encounter guilherme - Pain in thoracic spine guilherme - Unspecified symptoms and signs involving the musculoskeletal system guilherme - UTI/ Urinary tract infection, site not specified guilherme - Cervical disc disorder, unspecified, mid-cervical region guilherme Followup: guilherme - With: Private Physician - When: 2 - 3 days - Reason: Recheck today's complaints, Continuance of care, Re-evaluation by your physician Discharge Instructions: - Discharge Summary Sheet guilherme - Muscle Strain guilherme - Musculoskeletal Pain guilherme - Thoracic Strain guilherme - Urinary Tract Infection, Adult guilherme - Urinary Tract Infection, Adult, Tnkr-id-Acel guilherme - Chronic Back Pain, Pmgu-[id number] guilherme - Muscle Strain, Ncet-gf-Ruyc guilherme - Cervical Strain and Sprain Rehab-[facility] Forms: - Medication Reconciliation Form guilherme - Antibiotic Education guilherme - Prescription Opioid Use ugilherme - Patient Portal Instructions [facility] - Leadership Thank You Letter [facility] Prescriptions: - diclofenac sodium 25 mg Oral tablet, delayed release (enteric coated) - take 1 tablet ORAL route every 6 hours; 24 tablet; Refills: 0, Product guilherme Selection Permitted - cefdinir 300 mg Oral capsule - take 1 capsule ORAL route every 12 hours for 7 days; 14 capsule; Refills: 0, [facility] Product Selection Permitted - Medrol (Josesito) 4 mg Oral Tablets, Dose Pack - take 1 tablet ORAL route as directed - follow package instructions; 1 packet; [facility] Refills: 0, Product Selection Permitted - Bactrim DS 800-160 mg Oral Tablet - take 1 tablet ORAL route every 12 hours for 3 days; 6 tablet; Refills: 0, [facility] Product Selection Permitted - methocarbamol 750 mg Oral tablet - take 1 tablet ORAL route every 6 hours; 24 tablet; Refills: 0, Product guilherme Selection Permitted Signatures: Dispatcher [employer] EDGustavo Javier MD MD cha Baxter, Heather, RAMÓN RN Andi Herrera RN RN jb4 Rico Chew MD MD sp4 Corrections: (The following items were deleted from the chart) 14:25 14:24 CBC+H.LAB.BRZ ordered. EDMS EDMS 14:25 14:24 COMPREHENSIVE METABOLIC PANEL+C.LAB.BRZ ordered. EDMS EDMS 14:25 14:24 Urinalysis+U.LAB.BRZ ordered. EDMS EDMS 14:25 14:24 Test, Urine+UC.LAB.BRZ ordered. EDMS EDMS 14:25 14:25 Head C Spine MPR Wo Con+CT.RAD.BRZ ordered. EDMS EDMS 14:25 14:25 Chest Abdomen Pelvis Wo Con+CT.RAD.BRZ ordered. EDMS EDMS 14:57 14:56 PMHx: Hypothyroidism; hb hb 14:57 14:56 PSHx: "Cosmetic"; hb hb 16:47 16:47 Head Angio+CT.RAD.BRZ ordered. EDMS EDMS 16:47 16:47 Neck Angio+CT.RAD.BRZ ordered. EDMS EDMS 16:47 16:47 TEST, SERUM+SC.LAB.BRZ ordered. EDMS EDMS
--- NOTE | 2024-02-23 19:52 | ER ---
Nurse's Notes [facility] Name: Sharyn Franco Age: 43 yrs Sex: Female : 1980 Arrival Date: 02/23/2024 Time: 14:16 Bed 8 Private MD: Diagnosis: Strain of muscle, fascia and tendon at neck level, initial encounter;Pain in thoracic spine;Unspecified symptoms and signs involving the musculoskeletal system;UTI/ Urinary tract infection, site not specified;Cervical disc disorder, unspecified, mid-cervical region Presentation: 02/22 14:54 Chief complaint: Chronic neck and back pain that became severe yesterday after being hb manipulated by radiology. Coronavirus screen: At this time, the client does not indicate any symptoms associated with coronavirus-19. Ebola Screen: No symptoms or risks identified at this time. Initial Sepsis Screen: Does the patient meet any 2 criteria? No. Patient's initial sepsis screen is negative. Does the patient have a suspected source of infection? No. Patient's initial sepsis screen is negative. Risk Assessment: Do you want to hurt yourself or someone else? Patient reports no desire to harm self or others. Onset of symptoms was February 23, 2024. 14:54 Method Of Arrival: Wheelchair hb 14:54 Acuity: LIS 3 hb Historical: - Allergies: 14:56 Levofloxacin; hb 14:56 QUINOLONES; hb 14:56 Ultram; hb - Home Meds: 14:56 Synthroid Oral [Active]; Clonazepam Oral [Active]; hb - PMHx: 14:56 broken back (sciatica); epilepsy; Hypothyroidism; PCOS; sciatica; hb - PSHx: 14:56 cosmetic surgery; hb Screenin:17 [facility] ED Fall Risk Assessment (Adult) History of falling in the last 3 months, jb4 including since admission No falls in past 3 months (0 pts) Confusion or Disorientation Yes (5 pts) Intoxicated or Sedated No (0 pts) Impaired Gait No (0 pts) Mobility Assist Device Used No (0 pt) Altered Elimination No (0 pt) Score/Fall Risk Level 0 - 2 = Low Risk Oriented to surroundings, Maintained a safe environment. Abuse screen: Denies threats or abuse. Nutritional screening: No deficits noted. Tuberculosis screening: No symptoms or risk factors identified. Assessment: 16:00 General: Appears in no apparent distress. comfortable, Behavior is calm, cooperative, jb4 appropriate for age. Pain: Complains of pain in back Pain does not radiate. Pain currently is 10 out of 10 on a pain scale. Neuro: Level of Consciousness is awake, alert, obeys commands, Oriented to person, place, time, situation. Cardiovascular: Patient's skin is warm and dry. Respiratory: Airway is patent Respiratory effort is even, unlabored, Respiratory pattern is regular, symmetrical. Derm: Skin is intact, Skin is pink, warm \\T\\ dry. 17:00 Reassessment: Patient appears in no apparent distress at this time. Patient and/or jb4 family updated on plan of care and expected duration. Pain level reassessed. Patient is alert, oriented x 3, equal unlabored respirations, skin warm/dry/pink. 18:00 Reassessment: Patient appears in no apparent distress at this time. Patient and/or jb4 family updated on plan of care and expected duration. Pain level reassessed. Patient is alert, oriented x 3, equal unlabored respirations, skin warm/dry/pink. 19:00 Reassessment: Patient appears in no apparent distress at this time. Patient and/or jb4 family updated on plan of care and expected duration. Pain level reassessed. Patient is alert, oriented x 3, equal unlabored respirations, skin warm/dry/pink. 20:00 Reassessment: Patient appears in no apparent distress at this time. Patient and/or jb4 family updated on plan of care and expected duration. Pain level reassessed. Patient is alert, oriented x 3, equal unlabored respirations, skin warm/dry/pink. 21:00 Reassessment: Patient appears in no apparent distress at this time. Patient and/or jb4 family updated on plan of care and expected duration. Pain level reassessed. Patient is alert, oriented x 3, equal unlabored respirations, skin warm/dry/pink. Vital Signs: 14:54 BP 124 / 89; Pulse 92; Resp 16; Temp 97.8(TE); Pulse Ox 100% on R/A; Weight 61.23 kg; hb Height 5 ft. 5 in. ; Pain 10/10; 19:30 BP 126 / 87; Pulse 58; Resp 16; Pulse Ox 99% on R/A; jb4 20:30 BP 144 / 98; Pulse 65; Resp 16; Pulse Ox 99% on R/A; jb4 14:54 Body Mass Index 22.46 (61.23 kg, 165.1 cm) hb 14:54 Pain Scale: Adult hb ED Course: 14:19 Patient arrived in ED. ra3 14:21 Gustavo Canales MD is Attending Physician. guilherme 14:56 Triage completed. hb 14:57 Arm band placed on. hb 16:02 Radiology exam delayed due to test not completed at this time. nj 16:06 Initial lab(s) drawn, by me, sent to lab. Inserted saline lock: 20 gauge in left bc6 antecubital area, using aseptic technique. Blood collected. Flushed with 10 mL NS. 16:24 Andi Herrera, RN is Primary Nurse. jb4 16:33 Radiology exam delayed due to test not completed at this time. nj 18:35 CT Head C Spine In Process Unspecified. EDMS 18:35 CT Chest Abdomen Pelvis W/O Contrast In Process Unspecified. EDMS 18:35 CT Head Angio In Process Unspecified. EDMS 18:35 CT Neck Angio In Process Unspecified. EDMS 21:17 Patient has correct armband on for positive identification. Bed in low position. Call jb4 light in reach. Side rails up X 1. Provided Education on: discharge instructions. 21:17 No provider procedures requiring assistance completed. IV discontinued, intact, jb4 bleeding controlled, No redness/swelling at site. Pressure dressing applied. Administered Medications: 16:19 Drug: Ondansetron IVP 4 mg IVP once; over 2 minutes Route: IVP; Site: left antecubital; jb4 21:14 Follow up: Response: No adverse reaction; Marked relief of symptoms jb4 16:19 Drug: Ketorolac IVP 15 mg IVP once Route: IVP; Site: left antecubital; jb4 21:13 Follow up: Response: No adverse reaction jb4 16:20 Drug: NS 0.9% IV 1000 ml IV at 1000 ml once; to be given as a bolus over 60 minutes jb4 Route: IV; Rate: 1000 ml; Site: left antecubital; 17:20 Follow up: Response: No adverse reaction; IV Status: Completed infusion; IV Intake: jb4 1000ml 16:20 Drug: Diazepam PO 10 mg PO once Route: PO; jb4 21:14 Follow up: Response: No adverse reaction; Marked relief of symptoms jb4 16:20 Drug: morphine IVP or IV 2 mg IVP once over 4 mins Route: IVP; Infused Over: 4 mins; jb4 Site: left antecubital; 21:14 Follow up: Response: No adverse reaction; Marked relief of symptoms jb4 19:11 Drug: morphine IVP or IV 2 mg IVP once over 4 mins Route: IVP; Infused Over: 4 mins; jb4 Site: left antecubital; 21:14 Follow up: Response: No adverse reaction; Marked relief of symptoms jb4 20:52 Drug: Rocephin IV 1 grams IV at per protocol once; Given slow IV push per pharmacy jb4 instructions Route: IV; Rate: per protocol; Site: left antecubital; 21:12 Follow up: Response: No adverse reaction; IV Status: Completed infusion; IV Intake: [id number] 20:52 Drug: Cefdinir PO 300 mg PO once Route: PO; jb4 21:13 Follow up: Response: No adverse reaction jb4 20:52 Drug: Trimethoprim-Sulfamethoxazole PO (160 mg-800 mg (DS) 1 tablet PO once Route: PO; jb4 21:13 Follow up: Response: No adverse reaction jb4 20:52 Drug: LORazepam PO 0.5 mg PO once Route: PO; jb4 21:13 Follow up: Response: No adverse reaction jb4 Intake: 17:20 IV: 1000ml; Total: 1000ml. jb4 21:12 IV: 10ml; Total: 1010ml. jb4 Outcome: 19:51 Discharge ordered by MD. vanegas 21:17 Discharged to home ambulatory, with family, jb4 21:17 Condition: stable 21:17 Discharge instructions given to patient, Instructed on discharge instructions, follow up and referral plans. no drinking with medication, medication usage, Demonstrated understanding of instructions, follow-up care, medications, Prescriptions given X 5 21:19 Patient left the ED. jb4 Addendum: 02/26/2024 07:49 Addendum: Culture Results: Positive urine culture. No further action required. Bacteria s s sensitive to prescribed antibiotic. Signatures: Dispatcher [employer] EDOK Gustavo Canales MD MD cha Blanchard, Shelby, RN RN Read, Krista, Andi Perez RN, RN RN jb4 Reggie Cordoba Breana 6 Renetta Carrasquillo ra3 Corrections: (The following items were deleted from the chart) 02/22 14:56 PMHx: Hypothyroidism; hb hb 14:56 PSHx: "Cosmetic"; hb hb
[2024-02-23] MEDS ORDERED: CEFDINIR 300 MG CAP PO ONE (20:28)
[2024-02-23] MEDS ORDERED: SMZ./TMP. 800/160 MG TABLET ONE (20:28)
[2024-02-23] MEDS ORDERED: CEFTRIAXONE 1000 MG/VIAL ONE (20:28)
[2024-02-23] MEDS ORDERED: LORAZEPAM 0.5 MG TABLET ONE (20:43)
[2024-02-23 21:57] VITALS: TEMP 97.8
[2024-02-23 22:03] VITALS: O2SAT 99
[2024-02-23 22:08] VITALS: BP 144/98
--- NOTE | 2024-02-28 10:23 | EKG ---
Test Date: 2024-02-23 Test Time: 19:42:49 Apprentice Architect: REHANA MEASUREMENT RESULTS: Intervals: Rate: 55 DC: 168 QRSD: 72 QT: 418 QTc: 399 [place]: P: 65 DC: 168 QRS: 88 T: 70 INTERPRETIVE STATEMENTS: Sinus bradycardia Possible Anterior infarct, age undetermined Abnormal ECG Compared to ECG 08/08/2022 16:26:02 Myocardial infarct finding now present Sinus arrhythmia no longer present Electronically Signed On 02-28-24 10:21:00 [employer] CH[employer] DYEING MACHINE OPERATOR by Nathaniel Garcia
== END 2024-02-23 21:19 | disposition home or self-care (01) ==
LOC: ER 14:16
DX: S16.1XXA Strain of muscle, fascia and tendon at neck level, initial encounter (principal); M54.6 Pain in thoracic spine; R29.91 Unspecified symptoms and signs involving the musculoskeletal system; N39.0 Urinary tract infection, site not specified; M50.920 Unspecified cervical disc disorder, mid-cervical region, unspecified level
CPT/HCPCS: 36415; 70450; 70496; 70498; 71250; 72125; 74176; 80053; 81001; 81025; 85025; 87077; 87086; 87088; 87186; 93005; 96361; 96365; 96375; 99284; J0696; J2270; J2405; J7030; Q9967